=== PATIENT | female | born 1990 | race Caucasian/White ===

== ENCOUNTER 2022-08-08 22:43 | Outpatient (REF) | payer OTHER, SELFPAY ==
[2022-08-13 09:09] LABS: Age Gdln ACOG Testing Note (.); HPV Aptima Negative (Negative); IGP, Aptima HPV, rfx 16/18,45 Note (.)
== END 2022-08-08 22:44 ==
LOC: LAB 22:43
PROVIDERS: PCP Obstetrics & Gynecology; Visit Provider Obstetrics & Gynecology
DX: Z12.4 Encounter for screening for malignant neoplasm of cervix (principal)
CPT/HCPCS: 87624; G0145

== ENCOUNTER 2022-11-05 11:14 | Outpatient (OUT) | payer OTHER, SELFPAY ==
[2022-11-05 12:16] LABS: Basophils Percent Auto 0.4 % (0.2-2.0); Eosinophils Absolute Auto 0.1 10^3/uL (0.0-0.7); Eosinophils Percent Auto 1.5 % (0.9-7.0); Hematocrit 41.8 % (36.0-48.0); Hemoglobin 13.8 g/dL (12.0-16.0); Immature Granulocytes Abs Auto 0.01 10^3/uL (0.00-0.03); Immature Granulocytes Pct Auto 0.1 % (0.0-0.5); Lymphocytes Absolute Auto 3.7 10^3/uL (1.2-3.8); Lymphocytes Percent Auto 47.1 % (20.5-60.0); Mean Corpuscular Hemoglobin 30.3 pg (26.7-34.0); Mean Corpuscular Volume 91.9 fL (81.0-99.0); Mean Platelet Volume 10.5 fL (9.5-13.5); Monocytes Absolute Auto 0.5 10^3/uL (0.3-0.8); Monocytes Percent Auto 6.9 % (1.7-12.0); Neutrophils Absolute Auto 3.5 10^3/uL (1.4-6.5); Platelet Count 299 10^3/uL (150-450); Red Blood Count 4.55 10^6/uL (4.20-5.40); Red Cell Distribution Width 13.2 % (11.0-15.0); White Blood Count 7.9 10^3/uL (4.0-11.0)
[2022-11-05 12:28] LABS: Alanine Aminotransferase 38 U/L (14-59); Albumin Level 4.3 g/dL (3.4-5.0); Aspartate Amino Transferase 21 U/L (15-37); Bilirubin Total 0.3 mg/dL (0.2-1.0); Calcium 8.9 mg/dL (8.5-10.1); Chloride 104 mmol/L (98-107); Estimated GFR (African America >60 (>=60); Estimated GFR (Non-African Ame >60 (>=60); Sodium 143 mmol/L (136-145); Total Protein 8.1 g/dL (6.4-8.2)
[2022-11-07 15:08] LABS: Lamotrigine (Lamictal), Serum 6.5 ug/mL (2.0-20.0)
== END 2022-11-05 11:15 | disposition home or self-care (01) ==
LOC: LAB 11:14
PROVIDERS: PCP Internal Medicine
DX: G40.309 Generalized idiopathic epilepsy and epileptic syndromes, not intractable, without status epilepticus (principal)
CPT/HCPCS: 36415; 80051; 80175; 82042; 82247; 82306; 82310; 82565; 84155; 84450; 84460; 84520; 85025

== ENCOUNTER 2022-11-13 12:52 | Outpatient (OUT) | payer OTHER, SELFPAY ==
[2022-11-13 14:46] LABS: Free T4 0.72 ng/dL (0.76-1.46)
[2022-11-13 14:52] LABS: HCG Quantitative <1 mIU/mL; Magnesium 2.3 mg/dL (1.8-2.4)
[2022-11-14 04:07] LABS: Progesterone 4.6 ng/mL (.)
[2022-11-16 14:10] LABS: Anti-Mullerian Hormone (AMH) 5.77 ng/mL (.)
== END 2022-11-13 12:53 | disposition home or self-care (01) ==
LOC: LAB 12:52
PROVIDERS: PCP Internal Medicine; Visit Provider Obstetrics & Gynecology
DX: E28.2 Polycystic ovarian syndrome (principal); N92.6 Irregular menstruation, unspecified
CPT/HCPCS: 36415; 83735; 84144; 84439; 84443; 84702

== ENCOUNTER 2022-11-15 15:08 | Outpatient (OUT) | payer OTHER, SELFPAY ==
[2022-11-15 16:38] LABS: HCG Quantitative <1 mIU/mL
== END 2022-11-15 15:09 | disposition home or self-care (01) ==
LOC: LAB 15:10
PROVIDERS: PCP Internal Medicine; Visit Provider Obstetrics & Gynecology
DX: N92.6 Irregular menstruation, unspecified (principal)
CPT/HCPCS: 36415; 84702

== ENCOUNTER 2022-12-07 07:54 | Outpatient (OUT) | payer OTHER, SELFPAY ==
[2022-12-07 12:46] LABS: HCG Quantitative <1 mIU/mL
== END 2022-12-07 07:55 | disposition home or self-care (01) ==
LOC: LAB 12-09 07:54
PROVIDERS: PCP Internal Medicine; Visit Provider Obstetrics & Gynecology
DX: N92.6 Irregular menstruation, unspecified (principal)
CPT/HCPCS: 36415; 84144; 84702

== ENCOUNTER 2023-01-08 15:12 | Outpatient (OUT) | payer OTHER, SELFPAY ==
[2023-01-09 04:07] LABS: Progesterone 9.9 ng/mL (.)
== END 2023-01-08 15:13 | disposition home or self-care (01) ==
LOC: LAB 15:13
PROVIDERS: PCP Internal Medicine; Visit Provider Obstetrics & Gynecology
DX: N92.6 Irregular menstruation, unspecified (principal); E28.2 Polycystic ovarian syndrome
CPT/HCPCS: 36415; 84144

== ENCOUNTER 2023-01-12 08:05 | Outpatient (OUT) | payer OTHER, SELFPAY ==
[2023-01-12 08:55] LABS: HCG Quantitative <1 mIU/mL
== END 2023-01-12 08:06 | disposition home or self-care (01) ==
PROVIDERS: PCP Internal Medicine; Visit Provider Obstetrics & Gynecology
DX: N92.6 Irregular menstruation, unspecified (principal)
CPT/HCPCS: 36415; 84702

== ENCOUNTER 2023-01-14 09:54 | Outpatient (RCR) | payer OTHER, SELFPAY ==
[2023-01-14 11:21] LABS: HCG Quantitative <1 mIU/mL
[2023-02-07 09:09] LABS: Progesterone 17.2 ng/mL (.)
== END 2023-02-06 16:58 | disposition home or self-care (01) ==
LOC: LAB 09:54
PROVIDERS: PCP Internal Medicine; Visit Provider Obstetrics & Gynecology
DX: N92.6 Irregular menstruation, unspecified (principal); E28.2 Polycystic ovarian syndrome
CPT/HCPCS: 36415; 84144; 84702

== ENCOUNTER 2023-02-06 13:56 | Outpatient (OUT) | payer OTHER, SELFPAY ==
[2023-02-10 19:07] LABS: Lamotrigine (Lamictal), Serum 4.8 ug/mL (2.0-20.0)
== END 2023-02-06 13:57 | disposition home or self-care (01) ==
LOC: LAB 13:57
PROVIDERS: PCP Internal Medicine
DX: G40.309 Generalized idiopathic epilepsy and epileptic syndromes, not intractable, without status epilepticus (principal); N92.6 Irregular menstruation, unspecified
CPT/HCPCS: 36415; 80175

== ENCOUNTER 2023-03-09 09:15 | Outpatient (OUT) | payer OTHER, SELFPAY ==
--- OUTSIDE RECORDS SUMMARY | 2023-03-09 09:21 | XMS_ITS | CCD ---
Author Name Unknown Address [id number] [place] [address] Organization [facility] Care Team Providers Care Plumber'S Helper Name Role Phone JAMIL SMITH Referring Unavailable ARIA FORDE Primary Care Unavailable JAMIL SMITH Referring Unavailable ARIA FORDE Primary Care Unavailable NONE PER PATIENT, . Primary Care Unavailable GERARDO WARD Attending Unavailable NONE PER PATIENT, . Primary Care Unavailable GERARDO WARD Attending Unavailable NONE PER PATIENT, . Primary Care Unavailable GERARDO WARD Attending Unavailable GERARDO WARD Attending Unavailable NONE PER PATIENT, . Primary Care Unavailable Unavailable Primary Care Provider Unavailabl e LOUISA ., DR GUERRERO Admitting Unavailable LOUISA ., DR GUERRERO Attending Unavailable LOUISA ., DR GUERRERO Consulting Unavailable LOUISA ., DR GUERRERO Admitting Unavailable LOUISA ., DR GUERRERO Attending Unavailable HAYLIE, DR RAMEY Primary Care Unavailable LOUISA ., DR GUERRERO Consulting Unavailable MISC, DR ARMENTA Admitting Unavailable MISC, DR ARMENTA Attending Unavailable HAYLIE, DR RAMEY Primary Care Unavailable MISC, DR ARMENTA Consulting Unavailable LOUISA ., DR GUERRERO Consulting Unavailable LOUISA ., DR GUERRERO Admitting Unavailable LOUISA ., DR GUERRERO Attending Unavailable HAYLIE, DR RAMEY Primary Care Unavailable LOUISA ., DR GUERRERO Consulting Unavailable ZIEBER, DR CYDNEY Conner Consulting Unavailable LOUISA ., DR GUERRERO Admitting Unavailable LOUISA ., DR GUERRERO Attending Unavailable HAYLIE, DR RAMEY Primary Care Unavailable LOUISA ., DR GUERRERO Consulting Unavailable Tim Rolon DO Primary Care Provider Raoul UNLOADING CHECKER-ACCOUNTING TEACHER, Crystal G Unavailable EVY VERMA Referring Unavailable BALL, TIM Primary Care Unavailable VERMA, EVY C Attending Unavailable VERMA, EVY C Attending Unavailable BALL, TIM Primary Care Unavailable VERMA, EVY C Referring Unavailable BALL, TIM Referring Unavailable BALL, TIM Primary Care Unavailable RAOUL, CRYSTAL G Attending Unavailable BJ ARRIAGAITA Attending Unavailable SELF, SELF Referring Unavailable RAOUL, CRYSTAL G Attending Unavailable SELF, SELF Referring Unavailable BALL, TIM Primary Care Unavailable RAOUL, CRYSTAL G Attending Unavailable SELF, SELF Referring Unavailable BALL, TIM Primary Care Unavailable RAOUL, CRYSTAL G Attending Unavailable RAOUL, CRYSTAL G Referring Unavailable BALL, TIM Primary Care Unavailable BALL, TIM Primary Care Unavailable VERMA, EVY C Referring Unavailable VERMA, EVY C Admitting Unavailable BALL, TIM Primary Care Unavailable VERMA, EVY C Attending Unavailable BALL, TIM Primary Care Unavailable BALL, TIM Primary Care Unavailable VERMA, EVY C Attending Unavailable RAOUL, CRYSTAL G Referring Unavailable BALL, TIM Primary Care Unavailable VERMA, EVY C Referring Unavailable BALL, TIM Primary Care Unavailable ESAU HERNANDEZ Attending Unavailable Allergies Allergy Classification Reported Allergen(s) Allergy Type Date of Onset Reaction(s) Facility (6 sources) Seasonal allergy Propensity to adverse reactions to drug 7 Runny Nose, Congestion [facility] Work Phone: Medications Current Medications Medication Drug Class(es) Dates Sig (Normalized) Sig (Original) 8 hr acetaminophen 650 mg extended release oral tablet (2 sources) Start: 01-15-2023 take 1 tablet by mouth every six hours as needed acetaminophen 650 MG Tab CR Take 1 tablet by mouth every 6 hours as needed for Mild Pain. 0 01/15/2023 Active Start: 01-15-2023 End: 01-15-2023 take 1 tablet by mouth every four hours as needed Acetaminophen (TYLENOL) tablet 650 mg cloBAZam 20 mg oral tablet (6 sources) Benzodiazepine Start: 10-17-2022 End: 04-19-2023 take 1 tablet by mouth once daily at dinner cloBAZam 20 MG tablet Indications: Jeavons syndrome Take 1 tablet by mouth Daily (with dinner). 30 tablet 5 10/17/2022 04/19/2023 Active Start: 04-30-2021 End: 04-30-2022 take 1 tablet by mouth once daily at dinner cloBAZam 20 MG tablet Indications: Nonintractable epilepsy without status epilepticus, unspecified epilepsy type Take 1 tablet by mouth Daily (with dinner). 30 tablet 5 04/30/2021 04/30/2022 Active escitalopram 20 mg oral tablet (1 source) Serotonin Reuptake Inhibitor Start: 04-30-2021 take 1 tablet by mouth once daily at dinner escitalopram 20 MG tablet Indications: Seizure disorder Take 1 tablet by mouth Daily (with dinner). 30 tablet 11 04/30/2021 Active folic acid 1 mg oral tablet (6 sources) Start: 04-19-2022 take 1 tablet by mouth once daily at dinner Folic acid 1 MG tablet Take 1 tablet by mouth Daily (with dinner). 30 tablet 11 04/19/2022 Active Start: 04-30-2021 take 1 tablet by josh th once daily at dinner folic acid 1 MG tablet Indications: Seizure disorder Take 1 tablet by mouth Daily (with dinner). 30 tablet 11 04/30/2021 Active lacosamide 100 mg oral tablet (1 source) Anti-epileptic Agent Start: 07-04-2021 End: 07-05-2022 lacosamide (Vimpat) 100 MG tablet Indications: Generalized nonconvulsive epilepsy W1: 1/2 tab twice daily W2 and on: 1 tab twice daily 60 tablet 5 07/04/2021 07/05/2022 Active 24 hr lamoTRIgine 300 mg extended release oral tablet (5 sources) Mood Stabilizer, Anti-epileptic Agent Start: 11-26-2022 take 1 tablet by mouth every twenty-four hours at bedtime LamoTRIgine 300 MG Tab SR 24 HR Indications: Jeavons syndrome Take 1 tablet by mouth at bedtime. 90 tablet 0 11/26/2022 Active Start: 10-21-2022 take 1 tablet by josh th once daily at bedtime LamoTRIgine 250 MG Tab SR 24 HR Indications: Jeavons syndrome TAKE 1 TABLET BY MOUTH EVERYDAY AT BEDTIME 90 tablet 0 10/21/2022 Active letrozole 2.5 mg oral tablet (3 sources) Aromatase Inhibitor Start: 11-19-2022 take 1 tablet by mouth at bedtime Femara 2.5 MG tablet Take 1 tablet by mouth at bedtime. 0 11/19/2022 Active loratadine 10 mg oral tablet (6 sources) loratadine 10 MG tablet Take 1 tablet by mouth as needed. 0 Active LORazepam 0.5 mg oral tablet (5 sources) Benzodiazepine Start: 03-22-2022 End: 03-22-2023 LORazepam 0.5 MG tablet Indications: Anxiety disorder, unspecified type 1 tab up to three times a week as needed for anxiety 10 tablet 1 03/22/2022 03/22/2023 Active medroxyPROGESTERone acetate 10 mg oral tablet (2 sources) Progestin medroxyPROGESTER one 10 MG tablet Take 1 tablet by mouth as needed. Takes for 14 days each time needed 0 Active melatonin 3 mg oral tablet (8 sources) Start: 03-22-2022 take 1 tablet by mouth once daily at bedtime Melatonin 3 MG tablet Indications: Difficulty falling asleep at night until stitcher standard machine hours TAKE 1 TABLET BY MOUTH EVERYDAY AT BEDTIME 90 tablet 2 03/22/2022 Active Melatonin 5 MG C hew Tab Chew 1 tablet at bedtime as needed. 0 Active metFORMIN hydrochloride 500 mg oral tablet (3 sources) Biguanide take 1 tablet by mouth at bedtime metFORMIN 500 MG tablet Take 1 tablet by mouth at bedtime. 0 Active midazolam 50 mg/ml nasal spray (7 sources) Benzodiazepine Start: 10-02-2020 Midazolam (Nayzilam) 5 MG/0.1ML Solution Indications: Seizure disorder 5 mg by Nasal route as needed. For seizure clusters longer than 5 minutes. May repeat in 10 minutes. Do not exceed 10 mg in 24 hours. 2 Each 0 10/02/2020 Active Start: 02-18-2019 midazolam HCl 50 MG/10ML Solution 10 mg by Nasal route. 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 Please use medication for five days prior to your scheduled surgery date. 22 g 0 01/10/2023 Active Prenat MV-Min w/Qz-Qfegsj-JER ( COMPLETE PO) (3 sources) take 1 tablet by mouth once at bedtime Prenat MV-Min w/Ww-Txpbaf-SUU ( COMPLETE PO) Take 1 tablet by mouth at bedtime. 0 Active sertraline 100 mg oral tablet (5 sources) Serotonin Reuptake Inhibitor Start: 04-19-2022 Sertraline 100 MG tablet Indications: Anxiety disorder, unspecified type 1 tablet at bedtime 90 tablet 3 04/19/2022 Active 24 hr divalproex sodium 250 mg extended release oral tablet (2 sources) Mood Stabilizer, Anti-epileptic Agent Start: 04-30-2021 take 1 tablet by mouth at bedtime divalproex 250 MG tablet ER Indications: Seizure disorder Take 1 tablet by mouth at bedtime. 30 tablet 5 04/30/2021 Active Start: 03-27-2021 End: 07-04-2021 take 1 tablet by mouth at bedtime divalproex 500 MG tablet ER Indications: Seizure disorder Take 1 tablet by mouth at bedtime. 30 tablet 1 03/27/2021 07/04/2021 Discontinued Completed/Discontinued Medications Medication Drug Class(es) Dates Sig (Normalized) Sig (Original) Acetaminophen / oxyCODONE (1 source) Opioid Agonist Start: 01-15-2023 End: 01-15-2023 take 1 tablet by mouth every four hours as needed oxyCODONE-acetami nophen (PERCOCET) 5-325 MG per tablet 1 tablet etonogestrel 68 mg drug implant (1 source) Progestin End: 07-04-2021 Etonogestrel 68 MG SC implant Inject 68 mg under the skin. 0 07/04/2021 Discontinued Ondansetron 4mg/2ml (ZOFRAN) injection 4 mg (1 source) Start: 01-15-2023 End: 01-15-2023 take 4 mg intravenously every four hours as needed Ondansetron 4mg/2ml (ZOFRAN) injection 4 mg povidone-iodine (3M SKIN and NASAL ANTISEPTIC) 5 % topical solution 1 Application (1 source) Start: 01-15-2023 End: 01-15-2023 povidone-iodine (3M SKIN and NASAL ANTISEPTIC) 5 % topical solution 1 Application progesterone 100 mg oral capsule (1 source) Progesterone End: 01-09-2023 progesterone 100 MG capsule Take 1 capsule by mouth as needed. 0 01/09/2023 Discontinued 1000 ml sodium chloride 9 mg/ml injection (1 source) Start: 01-15-2023 End: 11-08-2023 Sodium chloride 0.9% IV solution 200 ml vancomycin 5 mg/ml injection (1 source) Glycopeptide Antibacterial Start: 01-15-2023 End: 01-15-2023 Vancomycin HCl in NaCl (VANCOCIN) 1,000 mg in 200 ml NS premix IVPB Problems Active Problems Problem Classification Problem Date Documented Da te Episodic/Chronic Anxiety disorders (5 sources) Anxiety disorder; Translations: [Anxiety disorder, unspecified] Onset: 03-05-2022 03-05-2022 Chronic Contraceptive and procreative management (2 sources) Encounter for initial prescription of implantable subdermal contraceptive; Translations: [Encounter for surveillance of implantable subdermal contraceptive] Onset: 05-13-2018 Epilepsy; convulsions (20 sources) Generalized idiopathic epilepsy and epileptic syndromes, not intractable, without status epilepticus; Translations: [Generalized non-convulsive epilepsy] Onset: 06-14-2008 Chronic Other endocrine disorders (4 sources) Polycystic ovarian syndrome; Translations: [POLYCYSTIC OVARIAN SYNDROME] Onset: 05-23-2022 Chronic Other nutritional; endocrine; and metabolic disorders (6 sources) Obese class II; Translations: [Obesity, unspecified] Onset: 10-28-2019 10-28-2019 Chronic Residual codes; unclassified (4 sources) Presence of other specified functional implants; Translations: [Presence of other specified functional implants] Onset: 03-20-2018 Chronic Residual codes; unclassified (7 sources) Past history of procedure; Translations: [Presence of other specified functional implants] Onset: 10-24-2011 10-05-2019 Chronic Past or Other Problems Problem Classification Problem Date Documented Date Episodic/Chronic Fracture of lower limb (16 sources) Closed pilon fracture; Translations: [Displaced pilon fracture of right tibia, initial encounter for closed fracture] Onset: 07-17-2016 10-28-2019 Episodic Genitourinary symptoms and ill-defined conditions (4 sources) Microscopic hematuria; Translations: [Other microscopic hematuria] Onset: 02-21-2011 12-06-2022 Episodic Immunizations and screening for infectious disease (1 source) Encounter for screening for human papillomavirus (HPV); Translations: [ENC SCREENING HUMAN PAPILLOMAVIRUS] Onset: 08-28-2021 Episodic Other aftercare (6 sources) Wound ; Translations: [Encounter for other specified surgical aftercare] Onset: 04-17-2018 10-05-2019 Episodic Other screening for suspected conditions (not mental disorders or infectious disease) (4 sources) Encounter for screening for malignant neoplasm of cervix; Translations: [ENC SCREENING MALIG NEOPLASM CERV] Onset: 08-27-2021 Episodic Residual codes; unclassified (6 sources) Dietary finding; Translations: [Other specified health status] Onset: 08-27-2017 10-05-2019 Episodic Results Test Name Value Interpretation Reference Range Facility BETA HCG, URINE (POC DEVICE) on 01-15-2023 Beta HCG ( test) Ql (U) Negative Negative [facility] Interpretation and review of laboratory results Normal [facility] Test performed at address of the patient encounter. [facility] CARDIAC RHYTHM (SCANNED)on 03-17-2022 [facility] CBC AND ELECTRONIC DIFFon Basophils (Bld) [#/Vol] 0.05 10*3/uL Normal 0.00-0.15 [facility] Comment on above: Performed By: #### L [id number] #### [facility] (DEFAULT) [address] [address] Basophils/100 WBC (Bld) 0.5 % Normal O [facility] Comment on above: Performed By: #### L [id number] #### [facility] (DEFAULT) [address] [place] [address] DIFF STATUS Electronic Differential Normal [facility] Comment on above: Performed By: #### L [id number] #### [facility] (DEFAULT) [address] [place] [address] Eosinophils (Bld) [#/Vol] 0.12 10*3/uL Normal 0.00-0.4 2 [facility] Comment on above: Performed By: #### L [id number] #### [facility] (DEFAULT) [address] [address] Eosinophils/100 WBC (Bld) 1.2 % Normal [facility] Comment on above: Performed By: #### L [id number] #### [facility] (DEFAULT) [address] [address] Hematocrit (Bld) [Volume fraction] 42.5 % Normal 34.9-44.3 [facility] Comment on above: Performed By: #### L [id number] #### [facility] (DEFAULT) [address] [place] [address] Hemoglobin (Bld) [Mass/Vol] 14.3 g/dL Normal 11.4-15.2 [facility] Comment on above: Performed By: #### L [id number] #### [facility] (DEFAULT) [address] [place] [address] Immature Grans % 0.3 % Normal [facility] Comment on above: Performed By: #### L [id number] #### [facility] (DEFAULT) [address] [place] [address] Immature Grans Absolute < Normal <=0.08 O [facility] Comment on above: Performed By: #### L [id number] #### [facility] (DEFAULT) [address] [place] [address] Lymphocytes (Bld) [#/Vol] 3.42 10*3/uL Normal 1.16-3.5 1 [facility] Comment on above: Performed By: #### L [id number] #### [facility] (DEFAULT) [address] [place] [address] Lymphocytes/100 WBC (Bld) 32.9 % Normal [facility] Comment on above: Performed By: #### L [id number] #### [facility] (DEFAULT) [address] [place] [address] MCV (RBC) [Entitic vol] 92.4 fL Normal 79.6-97.7 [facility] Comment on above: Performed By: #### L [id number] #### [facility] (DEFAULT) [address] [place] [address] Mean Cell Hgb 31.1 pg Normal 25.9-33.9 [facility] Comment on above: Performed By: #### L [id number] #### [facility] (DEFAULT) [address] [place] [address] Mean Cell Hgb Conc 33.6 g/dL Normal 31.4-35.9 [facility] Comment on above: Performed By: #### L [id number] #### [facility] (DEFAULT) [address] [place] [address] Monocytes (Bld) [#/Vol] 0.62 10*3/uL Normal 0.22-0.87 [facility] Comment on above: Performed By: #### L [id number] #### [facility] (DEFAULT) [address] [address] Monocytes/100 WBC (Bld) 6.0 % Normal [facility] Comment on above: Performed By: #### L [id number] #### [facility] (DEFAULT) [address] [address] Nucleated RBC 0.0 /100 WBC Normal <=0.2 [facility] Comment on above: Performed By: #### L [id number] #### [facility] (DEFAULT) [address] [address] Platelet mean volume (Bld) [Entitic vol] 10.8 fL Normal 8.5-12.2 [facility] Comment on above: Performed By: #### L [id number] #### [facility] (DEFAULT) [address] [address] Platelets (Bld) [#/Vol] 326 10*3/uL Normal 150-393 [facility] Comment on above: Performed By: #### L [id number] #### [facility] (DEFAULT) [address] [address] RBC (Bld) [#/Vol] 4.60 10*6/uL Normal 3.91-5.04 [facility] Comment on above: Performed By: #### L [id number] #### [facility] (DEFAULT) [address] [place] [address] RBC Distribution 13.1 % Normal 10.8-14.9 [facility] Comment on above: Performed By: #### L [id number] #### [facility] (DEFAULT) [address] [place] [address] Segs + Bands Auto 59.1 % Normal [facility] Comment on above: Performed By: #### L [id number] #### [facility] (DEFAULT) [address] [place] [address] Segs + Bands,Absolute Auto 6.14 K/uL Normal 1.64-7.28 [facility] Comment on above: Performed By: #### L [id number] #### [facility] (DEFAULT) [address] [place] [address] WBC (Bld) [#/Vol] 10.38 10*3/uL Normal 3.99-11.19 [facility] Comment on above: Performed By: #### L [id number] #### [facility] (DEFAULT) [address] [place] [address] Basophils (Bld) [#/Vol] 0.05 10*3/uL 0.00 - 0.15 K/uL [facility] Basophils/100 WBC (Bld) 0.5 % [facility] Differential cell count method Nom (Bld) Electronic Differential [facility] Eosinophils (Bld) [#/Vol] 0.12 10*3/uL 0. 00 - 0.42 K/uL [facility] Eosinophils/100 WBC (Bld) 1.2 % [facility] Erythrocyte distribution width (RBC) [Ratio] 13.1 % 10.8 - 14.9 % [facility] Hematocrit (Bld) [Volume fraction] 42.5 % 34.9 - 44.3 % [facility] Hemoglobin (Bld) [Mass/Vol] 14.3 g/dL 11.4 - 15.2 g/dL [facility] Immature granulocytes (Bld) [#/Vol] K/uL NINF - 0.08 K/uL [facility] Immature granulocytes/100 WBC (Bld) 0.3 % [facility] Lymphocytes (Bld) [#/Vol] 3.42 10*3/uL 1. 16 - 3.51 K/uL [facility] Lymphocytes/100 WBC (Bld) 32.9 % [facility] MCH (RBC) [Entitic mass] 31.1 pg 25. 9 - 33.9 pg [facility] MCHC (RBC) [Mass/Vol] 33.6 g/dL 31.4 - 35.9 g/dL [facility] MCV (RBC) [Entitic vol] 92.4 fL 79.6 - 97.7 fL [facility] Monocytes (Bld) [#/Vol] 0.62 10*3/uL 0.22 - 0.87 K/uL [facility] Monocytes/100 WBC (Bld) 6.0 % [facility] Neutrophils (Bld) [#/Vol] 6.14 10*3/uL 1. 64 - 7.28 K/uL [facility] Nucleated RBC/100 WBC (Bld) [Ratio] 0.0 % NINF [facility] Platelet mean volume (Bld) [Entitic vol] 10.8 fL 8.5 - 12.2 fL [facility] Platelets (Bld) [#/Vol] 326 10*3/uL 150 - 393 K/uL [facility] RBC (Bld) [#/Vol] 4.60 10*6/uL [facility] Segmented neutrophils/100 WBC (Bld) 59.1 % [facility] WBC (Bld) [#/Vol] 10.38 10*3/uL 3.99 - 11 .19 K/uL [facility] CMPN WITHOUT GLUCOSEon 01-09 Albumin [Mass/Vol] 4.9 g/dL Normal 3.5-5.0 [facility] Comment on above: Performed By: #### C MPNG #### [facility] (DEFAULT) [address] [place] [address] ALP [Catalytic activity/Vol] 35 U/L Normal 32-126 [facility] Comment on above: Performed By: #### C MPNG #### [facility] (DEFAULT) [address] [place] [address] ALT [Catalytic activity/Vol] 19 U/L Normal 9-48 [facility] Comment on above: Performed By: #### C MPNG #### [facility] (DEFAULT) [address] [place] [address] Anion gap [Moles/Vol] 13 mmol/L Normal 7-17 [facility] Comment on above: Performed By: #### C MPNG #### [facility] (DEFAULT) [address] [place] [address] AST [Catalytic activity/Vol] 18 U/L Normal 10-39 [facility] Comment on above: Performed By: #### C MPNG #### [facility] (DEFAULT) [address] [place] [address] Bilirubin [Mass/Vol] 0.3 mg/dL Normal <1.5 [facility] Comment on above: Performed By: #### C MPNG #### [facility] (DEFAULT) [address] [place] [address] Calcium [Mass/Vol] 9.2 mg/dL Normal 8.6-10.5 [facility] Comment on above: Performed By: #### C MPNG #### [facility] (DEFAULT) [address] [place] [address] Chloride [Moles/Vol] 102 mmol/L Normal 98-108 [facility] Comment on above: Performed By: #### C MPNG #### [facility] (DEFAULT) [address] [place] [address] CO2 [Moles/Vol] 26 mmol/L Normal 21-31 [facility] Comment on above: Performed By: #### C MPNG #### [facility] (DEFAULT) [address] [place] [address] Creatinine [Mass/Vol] 0.64 mg/dL Normal 0.50-1.20 [facility] Comment on above: Performed By: #### C MPNG #### [facility] (DEFAULT) [address] [place] [address] eGFR, CKD-EPI, Female > Normal >=60 [facility] Comment on above: Result Comment: Repo rted eGFR is based on the CKD-EPI 2020 equation using creatinine, age, and sex. Performed By: #### C MPNG #### [facility] (DEFAULT) [address] [place] [address] Potassium [Moles/Vol] 4.0 mmol/L Normal 3.5-5.0 [facility] Comment on above: Performed By: #### C MPNG #### [facility] (DEFAULT) [address] [place] [address] Protein [Mass/Vol] 7.9 g/dL Normal 6.4-8.3 [facility] Comment on above: Performed By: #### C MPNG #### [facility] (DEFAULT) [address] [place] [address] Sodium [Moles/Vol] 137 mmol/L Normal 135-145 [facility] Comment on above: Performed By: #### C MPNG #### [facility] (DEFAULT) [address] [place] [address] Urea nitrogen [Mass/Vol] 12 mg/dL Normal 7-25 [facility] Comment on above: Performed By: #### C MPNG #### [facility] (DEFAULT) [address] [place] [address] Urea nitrogen/Creatinine [Mass ratio] 19 mg/mg Normal [facility] Comment on above: Performed By: #### C MPNG #### [facility] (DEFAULT) [address] [place] [address] HCG ( test) Ql (U)O rdered By: Jamil Santos on 01-09-2023 Beta HCG ( test) Ql Negative Negative [facility] Interpretation and review of laboratory results Normal [facility] HCG QUALITATIVE, URINEon Beta HCG ( test) Ql (U) Negative Normal Negative [facility] Comment on above: Performed By: #### U HCG #### [facility] (DEFAULT) [address] [place] [address] LAMOTRIGINE LEVELon 01-10-20 23 Lamotrigine, S 4.3 mcg/mL Normal 3.0-15.0 [facility] Comment on above: Result Comment: ADDITIONAL INFORMATION This test was developed and its performance characteristics determined by [facility] in a manner consistent with CLIA requirements. This test has not been cleared or approved by the U.S. Food and Drug Administration. Test Performed by: [facility] [address] [place] [address] Carpenter Assistant: Juno Vega M.D. Ph.D.; CLIA# [id number] Performed By: #### Y LAMO #### [facility] (DEFAULT) [address] [address] [place] [id number] PT,INR,PTTon 01-09-2023 aPTT Coag (Bld) [Time] 31.1 s Normal 24.0-34.3 [facility] Comment on above: Performed By: #### P TPTT #### [facility] (DEFAULT) [address] [place] [id number] INR Coag (PPP) [Relative time] 1.0 {INR} Normal 0.9-1.1 [facility] Comment on above: Performed By: #### P TPTT #### [facility] (DEFAULT) [address] [place] [id number] PT Coag (PPP) [Time] 13.0 s Normal 11.9-14.2 [facility] Comment on above: Performed By: #### P TPTT #### [facility] (DEFAULT) [address] [place] [id number] aPTT Coag (PPP) [Time] 31.1 s [facility] INR Coag (Bld) [Relative time] 1.0 {INR} 0.9 - 1.1 [facility] Interpretation and review of laboratory results Normal [facility] PT Coag (PPP) [Time] 13.0 s [facility] SCREEN: MRSA/MSSAOrdered By: Alexandra Slater on 01-09-2023 Interpretation and review of laboratory results Abnormal [facility] Methicillin Resistant S. Aureus By Pcr Negative Negative [facility] Staphylococcus Aureus By Pcr Positive Abnormal Negative [facility] This test was performed using a real time PCR assay. Results should be interpreted in conjunction with other clinical and laboratory findings. A positive result does not necessarily indicate the presence of viable organism. This test should not be used as a test of cure. For E-swab specimens, this test was developed and its performance characteristics determined by the Clinical Microbiology Laboratory at [facility]. It has not been cleared or approved by the FDA.The laboratory is regulated under CLIA as qualified to perform high-complexity testing. This test is used for clinical purposes. It should not be regarded as investigational or for research. [facility] SCREEN: MRSA/MSSAon 01-10-20 Methicillin Resistant S. Aureus By Pcr Negative Normal Negative [facility] Comment on above: Order Comment: This test was performed using a real time PCR assay. Results should be interpreted in conjunction with other clinical and laboratory findings. A positive result does not necessarily indicate the presence of viable organism. This test should not be used as a test of cure. For E-swab specimens, this test was developed and its performance characteristics determined by the Clinical Microbiology Laboratory at [facility]. It has not been cleared or approved by the FDA.The laboratory is regulated under CLIA as qualified to perform high-complexity testing. This test is used for clinical purposes. It should not be regarded as investigational or for research. Performed By: #### S CRSB #### [facility] (DEFAULT) [address] [place] [id number] Staphylococcus Aureus By Pcr Positive Abnormal Negative [facility] Comment on above: Order Comment: This test was performed using a real time PCR assay. Results should be interpreted in conjunction with other clinical and laboratory findings. A positive result does not necessarily indicate the presence of viable organism. This test should not be used as a test of cure. For E-swab specimens, this test was developed and its performance characteristics determined by the Clinical Microbiology Laboratory at [facility]. It has not been cleared or approved by the FDA.The laboratory is regulated under CLIA as qualified to perform high-complexity testing. This test is used for clinical purposes. It should not be regarded as investigational or for research. Performed By: #### S CRSB #### [facility] (DEFAULT) [address] [place] [id number] VITAMIN D (25-HYDROXY,TOTAL) on 01-09-2023 25-OH Vitamin D Total 35.2 ng/mL Normal 30.0-100.0 [facility] Comment on above: Order Comment: Vitam in D values have been shown to be falsely decreased in lipemic samples and should be interpreted with caution. Result Comment: <10 Deficiency 10-29 Insufficiency 30-100 Optimal Level >100 Possible Toxicity Performed By: #### D 25OH #### [facility] (DEFAULT) [address] [place] [address] XR Cervical and thoracic and lumbar spine Viewson 01-09-2023 IMPRESSION: Intact vagus nerve stimulator as described. OLOGY EXAM: XR STIMULATOR/INTRATHE TELLY PUMP CERVICAL/THORACIC/L UMBAR (Cervical, thoracic and Lumbar spine X-ray 2 views), 01/09/2023 10:28 AM COMPARISON: No priors available for comparison. 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 Stimulator lead wires are coursing along the anterior chest wall on the left extending to the anterior neck soft tissues on the left at the level of C6-C7. The pulse generator and lead wires are intact. RADIOLOGY Alice Crespo MD - 01/09/2023 EXAM: XR STIMULATOR/INTRATHE TELLY PUMP CERVICAL/THORACIC/L UMBAR (Cervical, thoracic and Lumbar spine X-ray 2 views), 01/09/2023 10:28 AM COMPARISON: No priors available for comparison. 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 Stimulator lead wires are coursing along the anterior chest wall on the left extending to the anterior neck soft tissues on the left at the level of C6-C7. The pulse generator and lead wires are intact. IMPRESSION IMPRESSION: Intact vagus nerve stimulator as described. [facility] Radiology Study observation (narrative) [facility] XR Cervical and thoracic and lumbar spine ViewsOrdered By: Alice Crespo on 01-09-2023 [facility] Work Phone: XR STIMULATOR/INTRATHECAL PU MP CERVICAL/THORACIC/LUMBARon 01-09-2023 XR STIMULATOR/INTRATHECAL PUMP CERVICAL/THORACIC/LUMBAR EXAM: XR STIMULATOR/INTRATHE TELLY PUMP CERVICAL/THORACIC/L UMBAR (Cervical, thoracic and Lumbar spine X-ray 2 views), 01/09/2023 10:28 AM COMPARISON: No priors available for comparison. 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 Stimulator lead wires are coursing along the anterior chest wall on the left extending to the anterior neck soft tissues on the left at the level of C6-C7. The pulse generator and lead wires are intact. IMPRESSION: Intact vagus nerve stimulator as described. Normal [facility] PROGESTERONEon 05-24-2022 Progesterone 5.5 ng/mL Normal [facility] Comment on above: Result Comment: Foll icular phase 0.1 - 0.9 Luteal phase 1.8 - 23.9 Ovulation phase 0.1 - 12.0 First trimester 11.0 - 44.3 Second trimester 25.4 - 83.3 Third trimester 58.7 - 214.0 Postmenopausal 0.0 - 0.1 Performed By: #### P DANIEL #### [facility] [address] [place] [address] Dr. Nicol Oswald LAMOTRIGINEon 05-02-2022 Lamotrigine, Serum 4.7 ug/mL Normal 2.0-20.0 [facility] Comment on above: Result Comment: Dete ction Limit = 1.0 Performed By: #### P DANIEL #### [facility] [address] [place] [address] Dr. Nicol Oswald CBC AUTO DIFFon 04-30-2022 BASO # 0.0 103/ul Normal 0.0-0.1 [facility] Comment on above: Performed By: #### C BC #### [facility] [address] [place] [address] Dr. Nicol Oswald Basophils/100 WBC (Bld) 0.4 % Normal 0.2-2.0 [facility] Comment on above: Performed By: #### C BC #### [facility] [address] [place] [address] Dr. Nicol Oswald EO # 0.2 103/ul Normal 0.0-0.7 [facility] Comment on above: Performed By: #### C BC #### [facility] [address] [place] [address] Dr. Nicol Oswald Eosinophils/100 WBC (Bld) 1.9 % Normal 0.9-7.0 [facility] Comment on above: Performed By: #### C BC #### [facility] [address] [place] [address] Dr. Nicol Oswald Erythrocyte distribution width (RBC) [Ratio] 12.8 % Normal 11.0-15.0 [facility] Comment on above: Performed By: #### C BC #### [facility] [address] [place] [address] Dr. Nicol Oswald Hematocrit (Bld) [Volume fraction] 40.4 % Normal 36.0-48.0 [facility] Comment on above: Performed By: #### C BC #### [facility] [address] [place] [address] Dr. Nicol Oswald Hemoglobin (Bld) [Mass/Vol] 13.6 g/dL Normal 12.0-16.0 [facility] Comment on above: Performed By: #### C BC #### [facility] [address] [place] [address] Dr. Nicol Oswald IG # 0.03 10e3/ul Normal 0.00-0.03 [facility] Comment on above: Performed By: #### C BC #### [facility] [address] [place] [address] Dr. Nicol Oswald IG % 0.4 % Normal 0.0-0.5 [facility] Comment on above: Performed By: #### C BC #### [facility] [address] [place] [address] Dr. Nicol Oswald LYMPH # 3.1 103/ul Normal 1.2-3.8 [facility] Comment on above: Performed By: #### C BC #### [facility] [address] [place] [address] Dr. Nicol Oswald Lymphocytes/100 WBC (Bld) 36.4 % Normal 20.5-60.0 [facility] Comment on above: Performed By: #### C BC #### [facility] [address] [place] [address] Dr. Nicol Oswald MANUAL DIFF REQ NO Normal [facility] Comment on above: Performed By: #### C BC #### [facility] [address] [place] [address] Dr. Nicol Oswald MCH (RBC) [Entitic mass] 31.0 pg Normal 26.7-34.0 [facility] Comment on above: Performed By: #### C BC #### [facility] [address] [place] [address] Dr. Nicol Oswald MCHC (RBC) [Mass/Vol] 33.7 g/dL Normal 29.9-35.2 [facility] Comment on above: Performed By: #### C BC #### [facility] [address] [place] [address] Dr. Nicol Oswald MCV (RBC) [Entitic vol] 92.0 fL Normal 81.0-99.0 [facility] Comment on above: Performed By: #### C BC #### [facility] [address] [place] [address] Dr. Nicol Oswald MONO # 0.7 103/ul Normal 0.3-0.8 [facility] Comment on above: Performed By: #### C BC #### [facility] [address] [place] [address] Dr. Nicol Oswald Monocytes/100 WBC (Bld) 7.7 % Normal 1.7-12.0 [facility] Comment on above: Performed By: #### C BC #### [facility] [address] [place] [address] Dr. Nicol Oswald NEUT # 4.5 103/ul Normal 1.4-6.5 [facility] Comment on above: Performed By: #### C BC #### [facility] [address] [place] [address] Dr. Nicol Oswald Neutrophils/100 WBC (Bld) 53.2 % Normal 43.0-75.0 [facility] Comment on above: Performed By: #### C BC #### [facility] [address] [place] [address] Dr. Nicol Oswald Platelet mean volume (Bld) [Entitic vol] 11.0 fL Normal 9.5-13.5 [facility] Comment on above: Performed By: #### C BC #### [facility] [address] [place] [address] Dr. Nicol Oswald PLT 282 103/ul Normal 150-450 [facility] Comment on above: Performed By: #### C BC #### [facility] [address] [place] [address] Dr. Nicol Oswald RBC 4.39 106/ul Normal 4.20-5.40 [facility] Comment on above: Performed By: #### C BC #### [facility] [address] [place] [address] Dr. Nicol Oswald WBC 8.4 103/ul Normal 4.0-11.0 [facility] Comment on above: Performed By: #### C BC #### [facility] [address] [place] [address] Dr. Nicol Oswald LIVER PROFILEon 04-30-2022 Albumin [Mass/Vol] 4.1 g/dL Normal 3.4-5.0 [facility] Comment on above: Performed By: #### P DANIEL #### [facility] [address] [place] [address] Dr. Nicol Oswald Albumin/Globulin [Mass ratio] 1.2 {ratio} Normal [facility] Comment on above: Performed By: #### P DANIEL #### [facility] [address] [place] [address] Dr. Nicol Oswald ALP [Catalytic activity/Vol] 52 U/L Normal 46-116 [facility] Comment on above: Performed By: #### P DANIEL #### [facility] [address] [place] [address] Dr. Nicol Oswald ALT [Catalytic activity/Vol] 23 U/L Normal 14-59 [facility] Comment on above: Performed By: #### P JASONES #### [facility] [address] [place] [address] Dr. Nicol Oswald AST [Catalytic activity/Vol] 17 U/L Normal 15-37 [facility] Comment on above: Performed By: #### P JASONES #### [facility] [address] [place] [address] Dr. Nicol Oswald BILI, CONJUGATED 0.1 mg/dL Normal 0.0-0.2 [facility] Comment on above: Performed By: #### P ROGES #### [facility] [address] [address] [address] Nicol Oswald Bilirubin [Mass/Vol] 0.2 mg/dL Normal 0.2-1.0 [facility] Comment on above: Performed By: #### P ROGES #### [facility] [address] [place] [address] Dr. Nicol Oswald Globulin (S) [Mass/Vol] 3.4 g/dL Normal [facility] Comment on above: Performed By: #### P ROGES #### [facility] [address] [address] [address] Nicol [place] Protein [Mass/Vol] 7.5 g/dL Normal 6.4-8.2 [facility] Comment on above: Performed By: #### P ROGES #### [facility] [address] [place] [address] Dr. Nicol Oswald PROF CHEM 8 (BAS METB)on Anion gap [Moles/Vol] 8.5 mmol/L Normal [facility] Comment on above: Performed By: #### P ROGES #### [facility] [address] [place] [address] Dr. Nicol Oswald Calcium [Mass/Vol] 9.4 mg/dL Normal 8.5-10.1 [facility] Comment on above: Performed By: #### P ROGES #### [facility] [address] [place] [address] Dr. Nicol Oswald Chloride [Moles/Vol] 102 mmol/L Normal 98-107 [facility] Comment on above: Performed By: #### P ROGES #### [facility] [address] [place] [address] Dr. Nicol Oswald CO2 [Moles/Vol] 30.4 mmol/L Normal 21.0-32.0 [facility] Comment on above: Performed By: #### P ROGES #### [facility] [address] [place] [address] Dr. Nicol Oswald Creatinine [Mass/Vol] 0.57 mg/dL Normal 0.55-1.02 [facility] Comment on above: Performed By: #### P ROGES #### [facility] [address] [address] [address] Nicol Oswald EGFR-AF CYMRO >60 Normal >=60 [facility] Comment on above: Performed By: #### P ROGES #### [facility] [address] [address] [address] Nicol Oswald EGFR-NON AF CYMRO >60 Normal >=60 [facility] Comment on above: Performed By: #### P ROGES #### [facility] [address] [address] [address] Nicol Oswald Glucose [Mass/Vol] 89 mg/dL Normal 74-106 [facility] Comment on above: Performed By: #### P ROGES #### [facility] [address] [address] [address] Nicol Oswald Potassium [Moles/Vol] 3.9 mmol/L Normal 3.5-5.1 [facility] Comment on above: Performed By: #### P ROGES #### [facility] [address] [address] [address] Nicol Oswald Sodium [Moles/Vol] 137 mmol/L Normal 136-145 [facility] Comment on above: Performed By: #### P ROGES #### [facility] [address] [address] [address] Nicol Oswald Urea nitrogen [Mass/Vol] 10.0 mg/dL Normal 7.0-18.0 [facility] Comment on above: Performed By: #### P ROGES #### [facility] [address] [address] [address] Nicol Oswald Urea nitrogen/Creatinine [Mass ratio] 17.5 mg/mg Normal [facility] Comment on above: Performed By: #### P ROGES #### [facility] [address] [address] [address] Nicol Oswald ESTROGENon 04-19-2022 Estrogens, Total 124 pg/mL Normal [facility] Comment on above: Result Comment: Prep ubertal < 40 Female Cycle: 1-10 Days 16 - 328 11-20 Days 34 - 501 21-30 Days 48 - 350 Post-Menopausal 40 - 244 Performed By: #### Elli ESPINAL #### [facility] [address] [address] [address] Nicol Oswald DHEA SERUMon 04-18-2022 Dehydroepiandrosterone (DHEA) 371 ng/dL Normal 31-701 [facility] Comment on above: Result Comment: Age 1 - 5 years 0 - 67 6 - 7 years 0 - 110 8 - 10 years 0 - 185 11 - 12 years 0 - 201 13 - 14 years 0 - 318 15 - 16 years 39 - 481 17 - 19 years 40 - 491 >19 years 31 - 701 Performed By: #### Tenzin SANCHEZ #### [facility] [address] [place] [address] Dr. Nicol Oswald DHEA-SULFATEon 04-16-2022 DHEA-Sulfate 371.0 ug/dL Normal 84.8-378.0 [facility] Comment on above: Performed By: #### Tenzin SANCHEZ #### [facility] [address] [place] [address] Dr. Nicol Oswald FSHon 04-16-2022 FSH 5.6 mIU/mL Normal [facility] Comment on above: Result Comment: Adul t Female: Follicular phase 3.5 - 12.5 Ovulation phase 4.7 - 21.5 Luteal phase 1.7 - 7.7 Postmenopausal 25.8 - 134.8 Performed By: #### Tenzin SANCHEZ #### [facility] [address] [place] [address] Dr. Nicol Oswald LUTEINIZING HORMONE (LH)on 0 04-16-2022 LH 12.9 mIU/mL Normal [facility] Comment on above: Result Comment: Adul t Female: Follicular phase 2.4 - 12.6 Ovulation phase 14.0 - 95.6 Luteal phase 1.0 - 11.4 Postmenopausal 7.7 - 58.5 Performed By: #### P DANIEL #### [facility] [address] [place] [address] Dr. Nicol Oswald PROGESTERONEon 04-16-2022 Progesterone 0.2 ng/mL Normal [facility] Comment on above: Result Comment: Foll icular phase 0.1 - 0.9 Luteal phase 1.8 - 23.9 Ovulation phase 0.1 - 12.0 First trimester 11.0 - 44.3 Second trimester 25.4 - 83.3 Third trimester 58.7 - 214.0 Postmenopausal 0.0 - 0.1 Performed By: #### P ROGES #### [facility] [address] [address] [address] Nicol Oswald PROLACTINon 04-16-2022 Prolactin 7.1 ng/mL Normal 4.8-23.3 [facility] Comment on above: Performed By: #### P ROLAC #### [facility] [address] [address] [address] Nicol Oswald US PELVIS AND TRANSVAGon US PELVIS AND TRANSVAG EXAMINATION: US PELVIS AND TRANSVAG HISTORY: Polycystic ovary syndrome ; abnormal periods COMPARISON: No relevant comparison available. TECHNIQUE: Transabdominal and transvaginal sonographic examination. FINDINGS: UTERUS: Normal size and appearance. Uterus size: 6.4 x 4.3 x 3.6 cm ENDOMETRIUM: Normal homogeneous appearance. Endometrial thickness: 5 mm RIGHT OVARY: Contains numerous sub-5 mm follicles. Duplex Doppler demonstrates normal waveform and flow; resistive index 0.6. Ovary size: 5.6 x 1.6 x 2.8 cm LEFT OVARY: Contains multiple sub-5 mm follicles in a 1.6 cm dominant follicle. Duplex Doppler demonstrates normal waveform and flow; resistive index 0.5. Ovary size: 4.5 x 2.3 x 2.4 cm CUL-DE-SAC: Unremarkable. No significant free fluid. BLADDER: Unremarkable. OTHER: None. IMPRESSION: 1. Numerous sub-5 mm follicles distributed throughout the right and left ovaries which are nonspecific, but can be seen with polycystic ovarian syndrome. Electronically authenticated by: CYDNEY VALDEZ Date: 2022-04-16 08:48 Normal [facility] CBC AUTO DIFFon 04-15-2022 BASO # 0.0 103/ul Normal 0.0-0.1 [facility] Comment on above: Performed By: #### C BC #### [facility] [address] [address] [address] Nicol Oswald Basophils/100 WBC (Bld) 0.5 % Normal 0.2-2.0 [facility] Comment on above: Performed By: #### C BC #### [facility] [address] [place] [address] Dr. Nicol Oswald EO # 0.2 103/ul Normal 0.0-0.7 [facility] Comment on above: Performed By: #### C BC #### [facility] [address] [place] [address] Dr. Nicol Oswald Eosinophils/100 WBC (Bld) 2.1 % Normal 0.9-7.0 [facility] Comment on above: Performed By: #### C BC #### [facility] [address] [place] [address] Dr. Nicol Oswald Erythrocyte distribution width (RBC) [Ratio] 12.5 % Normal 11.0-15.0 [facility] Comment on above: Performed By: #### C BC #### [facility] [address] [place] [address] Dr. Nicol Oswald Hematocrit (Bld) [Volume fraction] 44.7 % Normal 36.0-48.0 [facility] Comment on above: Performed By: #### C BC #### [facility] [address] [place] [address] Dr. Nicol Oswald Hemoglobin (Bld) [Mass/Vol] 14.3 g/dL Normal 12.0-16.0 [facility] Comment on above: Performed By: #### C BC #### [facility] [address] [place] [address] Dr. Nicol Oswald IG # 0.01 10e3/ul Normal 0.00-0.03 [facility] Comment on above: Performed By: #### C BC #### [facility] [address] [place] [address] Dr. Nicol Oswald IG % 0.1 % Normal 0.0-0.5 [facility] Comment on above: Performed By: #### C BC #### [facility] [address] [place] [address] Dr. Nicol Oswald LYMPH # 2.0 103/ul Normal 1.2-3.8 [facility] Comment on above: Performed By: #### C BC #### [facility] [address] [place] [address] Dr. Nicol Oswald Lymphocytes/100 WBC (Bld) 26.0 % Normal 20.5-60.0 [facility] Comment on above: Performed By: #### C BC #### [facility] [address] [place] [address] Dr. Nicol Oswald MANUAL DIFF REQ NO Normal [facility] Comment on above: Performed By: #### C BC #### [facility] [address] [place] [address] Dr. Nicol Oswald MCH (RBC) [Entitic mass] 30.8 pg Normal 26.7-34.0 [facility] Comment on above: Performed By: #### C BC #### [facility] [address] [place] [address] Dr. Nicol Oswald MCHC (RBC) [Mass/Vol] 32.0 g/dL Normal 29.9-35.2 [facility] Comment on above: Performed By: #### C BC #### [facility] [address] [place] [address] Dr. Nicol Oswald MCV (RBC) [Entitic vol] 96.3 fL Normal 81.0-99.0 [facility] Comment on above: Performed By: #### C BC #### [facility] [address] [place] [address] Dr. Nicol Oswald MONO # 0.6 103/ul Normal 0.3-0.8 [facility] Comment on above: Performed By: #### C BC #### [facility] [address] [place] [address] Dr. Nicol Oswald Monocytes/100 WBC (Bld) 7.3 % Normal 1.7-12.0 [facility] Comment on above: Performed By: #### C BC #### [facility] [address] [place] [address] Dr. Nicol Oswald NEUT # 4.9 103/ul Normal 1.4-6.5 [facility] Comment on above: Performed By: #### C BC #### [facility] [address] [place] [address] Dr. Nicol Oswald Neutrophils/100 WBC (Bld) 64.0 % Normal 43.0-75.0 [facility] Comment on above: Performed By: #### C BC #### [facility] [address] [place] [address] Dr. Nicol Oswald Platelet mean volume (Bld) [Entitic vol] 11.3 fL Normal 9.5-13.5 [facility] Comment on above: Performed By: #### C BC #### [facility] [address] [place] [address] Dr. Nicol Oswald PLT 302 103/ul Normal 150-450 [facility] Comment on above: Performed By: #### C BC #### [facility] [address] [place] [address] Dr. Nicol Oswald RBC 4.64 106/ul Normal 4.20-5.40 [facility] Comment on above: Performed By: #### C BC #### [facility] [address] [place] [address] Dr. Nicol Oswald WBC 7.7 103/ul Normal 4.0-11.0 [facility] Comment on above: Performed By: #### C BC #### [facility] [address] [place] [address] Dr. Nicol Oswald FREE T4on 04-15-2022 Free T4 [Mass/Vol] 0.80 ng/dL Normal 0.76-1.46 [facility] Comment on above: Performed By: #### F T4 #### [facility] [address] [place] [address] Dr. Nicol Oswald GLYCOHEMOGLOBIN A1Con 2022 ADA RECOMMENDATION SEE BELOW Normal [facility] Comment on above: Result Comment: ADA RECOMMENDED LIMIT 4.0 - 6.0 ADA THERAPEUTIC TARGET < 7.0 ACTION SUGGESTED > 7.0 Performed By: #### A 1C #### [facility] [address] [address] [address] Nicol Oswald Glucose [Mass/Vol] 114 mg/dL Normal [facility] Comment on above: Performed By: #### A 1C #### [facility] [address] [address] [address] Nicol Oswald HbA1c (Bld) [Mass fraction] 5.6 % Normal 4.5-6.2 [facility] Comment on above: Performed By: #### A 1C #### [facility] [address] [address] [address] Nicol Oswald PREG QUANT HCGon 04-15-2022 HCG QUANT <1 [facility] Comment on above: Performed By: #### P REGQNT, TSH #### [facility] [address] [place] [address] Dr. Nicol Oswald HCG RANGE SEE BELOW Normal [facility] Comment on above: Result Comment: 5-50 0.2-1 WEEK 50-500 1-2 WEEKS 100-5,000 2-3 WEEKS 500-10,000 3-4 WEEKS 1,000-50,000 4-5 WEEKS 10,000-100,000 5-6 WEEKS 15,000-200,000 6-8 WEEKS 10,000-100,000 2-3 MONTHS Performed By: #### P REGQNT, TSH #### [facility] [address] [place] [address] Dr. Nicol Oswald TSHon 04-15-2022 TSH 1.312 uIU/mL Normal 0.358-3.740 [facility] Comment on above: Performed By: #### P REGQNT, TSH #### [facility] [address] [place] [address] Dr. Nicol Oswald PAP ACOG PANEL 2: 21 to 29on 08-31-2021 . . Normal [facility] Comment on above: Performed By: #### P DANIEL #### [facility] [address] [place] [address] Dr. Nicol Oswald Age Gdln ACOG Testing - Normal [facility] Comment on above: Performed By: #### P DANIEL #### [facility] [address] [address] [address] Nicol Oswald DIAGNOSIS: Comment Normal [facility] Comment on above: Result Comment: NEGA TIVE FOR INTRAEPITHELIAL LESION OR MALIGNANCY. THIS SPECIMEN WAS RESCREENED PART OF OUR COLOR RECEIVER PROGRAM. Performed By: #### P ROGES #### [facility] [address] [address] [address] Nicol Oswald Methodology: Comment Normal [facility] Comment on above: Result Comment: This liquid based ThinPrep(R) pap test was screened with the use of an image guided system. Performed By: #### P ROGES #### [facility] [address] [address] [address] Nicol Oswald Note: Comment Normal [facility] Comment on above: Result Comment: The Pap smear is a screening test designed to aid in the detection of premalignant and malignant conditions of the uterine cervix. It is not a diagnostic procedure and should not be used as the sole means of detecting cervical cancer. Both false-positive and false-negative reports do occur. . Performed By: #### P ROGES #### [facility] [address] [place] [address] Dr. Nicol Oswald Performed by: Comment Normal [facility] Comment on above: Result Comment: Mireille Blanco, Statistics Tutor (ASCP) Performed By: #### P ROGES #### [facility] [address] [place] [address] Dr. Nicol Oswald QC reviewed by: Comment Normal [facility] Comment on above: Result Comment: Tahira Roque, Statistics Tutor (ASCP) Performed By: #### P ROGES #### [facility] [address] [address] [address] Nicol Oswald Reflex Criteria: Comment Normal [facility] Comment on above: Result Comment: The HPV DNA reflex criteria were not met with this specimen result therefore, no HPV testing was performed. . Performed By: #### P ROGES #### [facility] [address] [address] [address] Nicol Oswald Specimen adequacy: Comment Normal [facility] Comment on above: Result Comment: Sati sfactory for evaluation. Endocervical and/or squamous metaplastic cells (endocervical component) are present. Performed By: #### Tenzin SANCHEZ #### [facility] [address] [place] [address] Dr. Nicol Oswald CBC Auto Diff Reflex Manualo n 02-18-2019 Automated Absolute Neutrophil 5.73 10*3/mm3 Normal [facility] Comment on above: Result Comment: Auto mated Absolute Neutrophil Count (ANC) is directly measured using a hematology instrument. ANC determined from manual differential cell count may differ. No [facility] reference range has been validated for this assay. Performed By: #### C D #### [place] [address] Basophil 0.5 % Normal 0.0-1.0 [facility] Comment on above: Performed By: #### C D #### [place] [address] Differential Type Automated Normal [facility] Comment on above: Performed By: #### C D #### [place] [address] Eosinophil 1.6 % Normal 1.0-4.0 [facility] Comment on above: Performed By: #### C D #### [place] [address] Erythrocyte distribution width (RBC) [Ratio] 13.4 % Normal 10-14.1 [facility] Comment on above: Performed By: #### C D #### [place] [address] Lymphocyte 22.6 % Low 24.0-44.0 [facility] Comment on above: Performed By: #### C D #### [place] [address] MCH (RBC) [Entitic mass] 30.7 pg Normal 26-34 [facility] Comment on above: Performed By: #### C D #### [place] [address] MCHC (RBC) [Mass/Vol] 33.2 % Normal 31.0-37.0 [facility] Comment on above: Performed By: #### C D #### Performed at [address] [address] MCV (RBC) [Entitic vol] 92.4 fL Normal 80-100 N [facility] Comment on above: Performed By: #### C D #### Performed at [address] [address] Monocyte 8.2 % High 1.0-7.0 [facility] Comment on above: Performed By: #### C D #### Performed at [address] [address] Neutrophil 67.1 % Normal 41.0-77.0 [facility] Comment on above: Performed By: #### C D #### Performed at [address] [address] Platelet mean volume (Bld) [Entitic vol] 11.5 fL Normal 9.3-13.0 [facility] Comment on above: Performed By: #### C D #### Performed at [address] [address] Platelets (Bld) [#/Vol] 268 10*3/uL Normal 140-440 [facility] Comment on above: Performed By: #### C D #### Performed at [address] [address] RBC (Bld) [#/Vol] 4.60 10*6/uL Normal 4.0-5.2 [facility] Comment on above: Performed By: #### C D #### Performed at [address] [address] WBC (Bld) [#/Vol] 8.6 10*3/uL Normal 4.5-11 [facility] Comment on above: Performed By: #### C D #### Performed at [address] [address] Comprehensive Metabolic Pane alexandr 02-18-2019 Albumin [Mass/Vol] 4.7 g/dL Normal 3.4-5.2 [facility] ALP [Catalytic activity/Vol] 47 U/L Low 50-136 [facility] ALT [Catalytic activity/Vol] 32 U/L Normal <40 [facility] AST [Catalytic activity/Vol] 29 U/L Normal 15-50 [facility] Bilirubin Ql (U) 0.2 mg/dL Normal 0.1-1.0 [facility] Calcium [Mass/Vol] 9.8 mg/dL Normal 8-10.5 [facility] Chloride [Moles/Vol] 104 mmol/L Normal 95-106 [facility] CO2 [Moles/Vol] 25 mmol/L Normal 24-35 [facility] Creatinine [Mass/Vol] 0.52 mg/dL Normal 0.5-1 [facility] Glucose [Mass/Vol] 135 mg/dL High 60-115 [facility] Potassium [Moles/Vol] 4.5 mmol/L Normal 3.7-5.3 [facility] Protein [Mass/Vol] 8.0 g/dL Normal 6.4-8.4 [facility] Sodium [Moles/Vol] 140 mmol/L Normal 135-145 [facility] Urea nitrogen [Mass/Vol] 15 mg/dL Normal 5-18 [facility] Valproic Acidon 02-18-2019 Valproic Acid 47.1 ug/mL Low 50.0-100.0 [facility] PAP, THIN PREP WITH IMAGINGo n 06-29-2018 PAP, THIN PREP WITH IMAGING Normal [facility] Comment on above: Result Comment: INTE RPRETATION Thin Prep Image-Guided Pap Test (Cervical/Endocervical) NEGATIVE FOR INTRAEPITHELIAL LESION /MALIGNANCY Satisfactory for evaluation (Endocervical/transformation zone component present) [facility]/06/27/2018 The Pap test is a screening test, hence, subject to both false negative and false positive results as evidenced by published data. For most women who lack an endocervical component on their Pap, and are undergoing routine screening, literature supports follow-up by obtaining a repeat Pap test in 12 months. Your patient's results should be interpreted in this context together with the history and clinical findings. HPV REQUESTS If ASC-US or above, perform high risk HPV testing. CLINICAL HISTORY Date of Last Menstrual Period: 05/18/18 ICD-CM DIAGNOSIS CODE(S) Z01.419 [employer] Exam (general) (routine) W/o Abn Findings * EFFECTIVE 06/08/2018 * * CLINICAL CHEMISTRY PLATFORM CHANGES ARE ASSOCIATED WITH * * REFERENCE RANGE CHANGES FOR A NUMBER OF ANALYTES. PLEASE * * REVIEW REFERENCE INTERVALS CAREFULLY * Pathology [facility]. [address] [place] [address] CLIA No. [id number] CAP Accreditation No. [id number] Knuckle Bender: Johnson Garland M.D. [facility] Accession Number: [id number] Performed By: #### P L PAP W/IMAGE #### [address] [address] [address] Nucleic-Acid Probe-Endoce rvical Swabon 06-24-2018 CT Nucleic-Acid Probe-Endocervical Swab Negative Normal NEGATIVE [facility] Comment on above: Performed By: #### G C Amp Endocerv, CT Amp Endocerv #### [address] [address] Age at specimen collection = Normal [facility] Comment on above: Performed By: #### G C Amp Endocerv, CT Amp Endocerv #### [address] [address] Performed By: #### P L PAP W/IMAGE #### [address] [address] GC Nucleic-Acid Probe-Endoce rvical Swabon 06-24-2018 GC Nucleic-Acid Probe-Endocervical Swab Negative Normal NEGATIVE [facility] Comment on above: Performed By: #### G C Amp Endocerv, CT Amp Endocerv #### [facility] [address] [place] [address] Platelet Functionon 03-24-19 19 Collagen/ADP 148 sec High 67-112 [facility] Comment on above: Performed By: #### P FA #### [facility] [address] [place] [address] Collagen/EPI 228 sec High 85-172 [facility] Comment on above: Performed By: #### P FA #### [facility] [address] [place] [address] Interpretation Abnormal platelet function. Normal [facility] Comment on above: Result Comment: Comm on pattern seen in von Willebrand disease and congenital platelet defects. Pattern can also be seen in thrombocytopenia (Platelet <150,000/ul), anemia (Hematocrit <35%), renal and cardiovascular disease. Primary hemostasis defect can place a patient at increased risk for bleeding during a surgical procedure. After correlation with clinical history, further evaluation of primary hemostasis could be considered, such as platelet aggregation tests and/or von Willebrand workup. PFA results on patients treated with Plavix (clopidogrel) have not been established. Performed By: #### P FA #### [facility] [address] [place] [address] XR ANKLE RIGHT STANDARDon XR ANKLE RIGHT STANDARD Radiology exam i s complete. No Radiologist dictation. Please follow up with ordering provider. Final result Normal [facility] Vital Signs Date Time Vital Sign Value Performing Clinician Facility 01-15-2023 13:50-0500 Body temperature 97.5 [degF] Evy Verma MD Work Phone: [facility] 01-15-2023 13:50-0500 Diastolic blood pressure 79 mm[Hg] Evy Verma MD Work Phone: [facility] 01-15-2023 13:50-0500 Heart rate 78 /min Evy Verma MD Work Phone: [facility] 01-15-2023 13:50-0500 Respiratory rate 16 /min Evy Verma MD Work Phone: [facility] 01-15-2023 13:50-0500 SaO2% (BldA) [Mass fraction] 98 % Evy Verma MD Work Phone: [facility] 01-15-2023 13:50-0500 Systolic blood pressure 117 mm[Hg] Evy Verma MD Work Phone: [phone] [place] [address] 01-15-2023 07:50-0500 Body height 161.3 cm Evy Verma MD Work Phone: [phone] [address] 01-15-2023 07:50-0500 Body mass index (BMI) [Ratio] 34.37 kg/m2 Evy Verma MD Work Phone: [facility] 01-15-2023 07:50-0500 Body weight 89.4 kg Evy Verma MD Work Phone: [facility] 01-09-2023 08:39-0400 Body height 161.3 cm Esau Hernandez PAC Work Phone: [facility] 01-09-2023 08:39-0400 Body mass index (BMI) [Ratio] 33.65 kg/m2 Esau Hernandez PAC Work Phone: [facility] 01-09-2023 08:39-0400 Body temperature 98.49 [degF] Esau Hernandez PAC Work Phone: [facility] 01-09-2023 08:39-0400 Body weight 87.54 kg Esau Hernandez PAC Work Phone: [facility] 01-09-2023 08:39-0400 Diastolic blood pressure 80 mm[Hg] Esau Hernandez PAC Work Phone: [facility] 01-09-2023 08:39-0400 Heart rate 81 /min Esau Hernandez PAC Work Phone: [facility] 01-09-2023 08:39-0400 Respiratory rate 18 /min Esau Hernandez PAC Work Phone: [facility] 01-09-2023 08:39-0400 SaO2% (BldA) [Mass fraction] 98 % Esau Hernandez PAC Work Phone: [facility] 01-09-2023 08:39-0400 Systolic blood pressure 134 mm[Hg] Esau Hernandez PAC Work Phone: [facility] 12-10-2022 10:53-0400 Body height 160 cm Evy Verma MD Work Phone: [facility] 12-10-2022 10:53-0400 Body mass index (BMI) [Ratio] 34.19 kg/m2 Evy Verma MD Work Phone: [facility] 12-10-2022 10:53-0400 Body weight 87.54 kg Evy Verma MD Work Phone: [facility] 12-10-2022 10:53-0400 Diastolic blood pressure 63 mm[Hg] Evy Verma MD Work Phone: [facility] 12-10-2022 10:53-0400 Heart rate 65 /min Evy Verma MD Work Phone: [facility] 12-10-2022 10:53-0400 Systolic blood pressure 125 mm[Hg] Evy Verma MD Work Phone: [facility] 11-08-2022 16:21-0400 Body height 160 cm Riana MORELOS Work Phone: [facility] Comment on above: verbal 11-08-2022 16:21-0400 Body mass index (BMI) [Ratio] 34.26 kg/m2 Crystal Raoul UNLOADING CHECKER-ACCOUNTING TEACHER Work Phone: [facility] 11-08-2022 16:21-0400 Body temperature 99.1 [degF] Crystal Raoul UNLOADING CHECKER-ACCOUNTING TEACHER Work Phone: [facility] 11-08-2022 16:21-0400 Body weight 87.73 kg Crystal Raoul UNLOADING CHECKER-ACCOUNTING TEACHER Work Phone: [facility] 11-08-2022 16:21-0400 Diastolic blood pressure 71 mm[Hg] Crystal Raoul UNLOADING CHECKER-ACCOUNTING TEACHER Work Phone: [facility] 11-08-2022 16:21-0400 Heart rate 97 /min Crystal Raoul UNLOADING CHECKER-ACCOUNTING TEACHER Work Phone: [facility] 11-08-2022 16:21-0400 Systolic blood pressure 116 mm[Hg] Crystal Raoul UNLOADING CHECKER-ACCOUNTING TEACHER Work Phone: [facility] 07-04-2021 09:38-0400 Body height 161.3 cm Crystal Raoul UNLOADING CHECKER-ACCOUNTING TEACHER Work Phone: [facility] Comment on above: verbal 07-04-2021 09:38-0400 Body mass index (BMI) [Ratio] 36.23 kg/m2 Crystal Raoul UNLOADING CHECKER-ACCOUNTING TEACHER Work Phone: [facility] 07-04-2021 09:38-0400 Body temperature 98.71 [degF] Crystal Raoul UNLOADING CHECKER-ACCOUNTING TEACHER Work Phone: [facility] 07-04-2021 09:38-0400 Body weight 94.26 kg Crystal Raoul UNLOADING CHECKER-ACCOUNTING TEACHER Work Phone: [facility] 07-04-2021 09:38-0400 Diastolic blood pressure 70 mm[Hg] Crystal Raoul UNLOADING CHECKER-ACCOUNTING TEACHER Work Phone: [facility] 07-04-2021 09:38-0400 Heart rate 73 /min Riana Chinchilla UNLOADING CHECKER-ACCOUNTING TEACHER Work Phone: [facility] 07-04-2021 09:38-0400 Systolic blood pressure 119 mm[Hg] Riana Chinchilla UNLOADING CHECKER-ACCOUNTING TEACHER Work Phone: [facility] Encounters Encounter Date Encounter Type Care Provider Facility Start: 02-14-2023 ambulatory [facility] Facility: [facility] Start: 01-15-2023 End: 01-15-2023 ambulatory EVY VERMA Facility:[facility] Start: 01-15-2023 End: 01-15-2023 Subsequent hospital visit by physician Evy Verma MD Work Phone: [facility] 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 Start: 01-09-2023 [facility] Facility: [facility] Start: 01-09-2023 Encounter for other preprocedural examination ESAU HERNANDEZ Facility:[facility] Start: 01-09-2023 End: 01-09-2023 Office consultation new/estab patient 60 min Esau Hernandez PAC Work Phone: Pre-Procedure Evaluation and Assessment [facility] Comment on above: Preop exam for inter nal medicine (Primary Dx); Jeavons syndrome; 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 Start: 01-09-2023 End: 01-09-2023 Patient encounter status Esau Hernandez PAC Work Phone: [facility] Start: 01-09-2023 End: 01-09-2023 Subsequent hospital visit by physician Evy Verma MD Work Phone: Imaging [facility] Comment on above: Arrived Start: 12-10-2022 ambulatory EVY VERMA Facility:[facility] Start: 12-10-2022 End: 12-10-2022 Office outpatient new 45 minutes Evy Verma MD Work Phone: [facility] 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) Start: 11-27-2022 ambulatory [facility] Facility: [facility] Start: 11-19-2022 ambulatory TIM ROLON Facility: [facility] Start: 11-14-2022 ambulatory TIM ROLON Facility: [facility] Start: 11-08-2022 ambulatory TIM ROLON Facility: [facility] Start: 11-08-2022 End: 11-08-2022 Office outpatient visit 40 minutes Riana Gordillo Raoul UNLOADING CHECKER-ACCOUNTING TEACHER Work Phone: [facility] 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) Start: 09-19-2022 ambulatory TIM ROLON Facility: [facility] Start: 09-13-2022 ambulatory RIANA CHINCHILLA Facilit y:[facility] Start: 05-23-2022 End: 05-24-[address] YOLANDA JASSO . Facility: Start: 05-01-2022 ambulatory EVY VERMA Facility:[facility] Start: 04-30-2022 End: 05-01-[address] DOCTOR ASHTON Facility: Start: 04-19-2022 ambulatory CORI Ham y:[facility] Start: 04-16-2022 End: 04-17-[address] YOLANDA JASSO . Facility: Start: 04-15-2022 End: 04-16-[address] YOLANDA JASSO . Facility: Start: 08-27-2021 End: 08-27-[address] YOLANDA JASSO . Facility: Start: 07-04-2021 End: 07-04-2021 Office outpatient visit 25 minutes Riana Duy Raoul UNLOADING CHECKER-ACCOUNTING TEACHER Work Phone: [facility] Comment on above: Generalized nonconvu lsive epilepsy (Primary Dx) Start: 06-24-2018 Encounter for gynecological examination (general) (routine) without abnormal findings NA NONE PER PATIENT [facility] Start: 06-24-2018 End: 06-24-2018 Patient encounter procedure GERARDO WARD Facility:[facility] Start: 05-25-2018 End: 05-25-2018 Patient encounter procedure . NONE PER PATIENT Facility:[facility] Start: 05-13-2018 End: 05-13-2018 Patient encounter procedure . NONE PER PATIENT Facility:[facility] Start: 03-23-2018 End: 03-24-2018 Patient encounter procedure JAMIL A [facility] Start: 03-20-2018 End: 03-21-2018 Patient encounter procedure JAMIL A [facility] Procedures Date Procedure Procedure Detail Performing Clinician Start: 01-15-2023 CARDIAC RHYTHM Other Ot her Start: 01-15-2023 Gonadotropin chorion ic qualitative Evy Verma MD Work Phone: Start: 01-09-2023 CBC AND ELECTRONIC DIFF Esau D Hernandez PAC Work Phone: Start: 01-09-2023 Complete blood count with white cell differential, automated Esau D Hernandez PAC Work Phone: Start: 01-09-2023 Prothrombin time Esau D Hernandez PAC Work Phone: Start: 01-09-2023 Radex spine cervical 2 or 3 views Evy Verma MD Work Phone: Start: 01-09-2023 Iadna s aureus ampli fied probe tq Esau D Hernandez PAC Work Phone: Start: 01-09-2023 Urine test visual color cmprsn meths Esau D Hernandez PAC Work Phone: Start: 02-18-2019 Blood count hematocrit Comment on above: Performed By: #### C D #### Performed at [facility], [address] [place] [address] Start: 03-23-2018 PLATELET FUNCTION TEST JAMIL SMITH Plan of Treatment Date Care Activity Detail Author Start: 02-14-2023 End: 02-14-2023 Patient encounter procedure [facility] Start: 01-15-2023 End: 01-15-2023 Admission to same day surgery center 01/15/2023 9:40 AM EST - 01/15/2023 11:50 AM EST Surgery [facility] [address] [place] [id number] Evy Verma MD [address] [place] [address] INSERTION REPLACEMENT NEUROSTIMULATOR GENERATOR CRANIAL/INTRACRANIAL [facility] Comment on above: INSERTION REPLACEMENT NEUROSTIMULATOR GE NERATOR CRANIAL/INTRACRANIAL Start: 01-15-2023 End: 01-15-2023 Insj/rplcmt cranial neurostim pulse generator INSERTION REPLACEMENT NEUROSTIMULATOR GENERATOR CRANIAL/INTRACRANIAL Jeavons syndrome 01/15/2023 9:40 AM EST [facility] Start: 01-15-2023 Subsequent hospital visit by physician 01/15/2023 9:40 AM EST Hospital Encounter [facility] [address] [place] [address] Evy Verma MD [address] [place] [address] Jeavons syndrome [facility] 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 Start: 12-10-2022 End: 12-11-2023 Radiographic imaging procedure XR STIMULATOR/INTRATHECAL PUMP Imaging Routine Jeavons syndrome Expected: 12/10/2022, Expires: 12/11/2023 [facility] Comment on above: Expected: 12/10/2022, Expires: Start: 12-10-2022 End: 12-10-2022 Patient encounter procedure 12/10/2022 11:30 AM EDT Office Visit [facility] [address] [place] [address] [place] [address] Evy Verma MD [address] [place] [address] [facility] Start: 11-08-2022 Influenza vaccination INFLUENZA VACCINE (#1) [facility] Start: 01-04-2022 End: 01-04-2022 Patient encounter procedure 01/04/2022 Office Visit Neurology Cori Arriaga DO [address] [place] [address] [facility] Start: 11-08-2021 Influenza vaccination INFLUENZA VACCINE (Season Ended) [facility] Start: 10-10-2021 End: 10-10-2021 Telemedicine consultation with patient 10/10/2021 Telemedicine Neurology Riana Chinchilla, UNLOADING CHECKER-ACCOUNTING TEACHER [address] [place] [address] Neurology [facility] Start: 08-15-2021 End: 08-15-2021 Telemedicine consultation with patient 08/15/2021 Telemedicine Neurology Riana Chinchilla, UNLOADING CHECKER-ACCOUNTING TEACHER [address] [place] [address] [facility]rology [facility] Start: 2013 Screening for malignant neoplasm of cervix CERVICAL CANCER SCREENING DISCUSSION [facility] Start: 07-15-2011 Third diphtheria, tetanus and acellular pertussis (DTaP) vaccination TDAP (ADULT) [facility] Start: 2010 Tetanus vaccination TETANUS [facility] Start: 07-15-2007 HIV screening HIV SCREENING DISCUSSION [facility] Start: 1997 COVID-19 VACCINE (1) COVID-19 VACCINE (1) [facility] Start: 01-14-1993 COVID-19 VACCINE (#1) COVID-19 VACCINE (#1) [facility] Start: 1992 Hepatitis C antibody, confirmatory test HEPATITIS C VIRUS SCREENING [facility] Start: 1992 Hepatitis C screening HEPATITIS C VIRUS SCREENING [facility] Start: 1992 Tetanus vaccination TETANUS [facility] Ecg routine ecg w/le ast 12 lds w/i&r [place] ELECTROCARDIOGRAM, COMPLETE [place] - OFFICE PERFORMED Routine 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 Ordered: 01/09/2023 [facility] Comment on above: Ordered: 01/09/2023 Elec horace implt smpl cn npgt prgrmg [place] ELEC HORACE IMPLT SMPL CN NPGT PRGRMG [place] Charge Routine Jeavons syndrome Ordered: 11/14/2022 [facility] Comment on above: Ordered: 11/14/2022 Insj/rplcmt cranial neurostim pulse generator INSERTION REPLACEMENT NEUROSTIMULATOR GENERATOR CRANIAL/INTRACRANIAL Jeavons syndrome [facility] Noninvasive ear/puls e oximetry single deter [place] NONINVASV OXYGEN SATUR; SINGLE [place] - OFFICE PERFORMED Routine 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 Ordered: 01/09/2023 [facility] Comment on above: Ordered: 01/09/2023 Immunizations Immunization Date Immunization Notes Care Provider Lee shelton 01-04-2014 influenza, seasonal, injectable, preservative free Evy Verma MD Work Phone: [facility] 01-04-2014 influenza virus vaccine, unspecified formulation Riana Chinchilla APRN-ACCOUNTING TEACHER Work Phone: [facility] Payers Date Payer Category Payer Unknown [id number] 2016 Unknown [id number] 2016 Self-pay 2014 Unknown [id number] 1992 Unknown [id number] 2.16.8 40.1.294050.3.579.2.173 1992 Unknown [id number] 2.16.8 40.1.472312.3.579.2.173 1992 Unknown [id number] 2.16.84 0.1.861780.3.579.2.754 1992 Unknown [id number] 2.16.84 0.1.905819.3.579.2.754 1992 Unknown [id number] 2.16.84 0.1.596208.3.579.2.754 1992 Unknown [id number] 2.16.84 0.1.747418.3.579.2.754 1992 Unknown [id number] 2.16.84 0.1.786966.3.579.2.593 1992 Unknown [id number] 2.16.84 0.1.826955.3.579.2.593 1992 Unknown [id number] 2.16.84 0.1.436140.3.579.2.593 1992 Unknown [id number] 2.16.84 0.1.319306.3.579.2.593 1992 Unknown [id number] 2.16.84 0.1.109985.3.579.2.593 1992 Unknown [id number] 2.16. 840.1.566617.3.579.2.594 1992 Unknown [id number] 2. 840.1.812107.3.579.2.594 1992 Unknown [id number] 2. 840.1.783704.3.579.2.594 1992 Unknown [id number] 2. 840.1.373798.3.579.2.594 1992 Unknown [id number] 2. 840.1.650761.3.579.2.594 1992 Unknown [id number] 2. 840.1.680693.3.579.2.594 1992 Unknown [id number] 2. 840.1.718738.3.579.2.594 1992 Unknown [id number] 2. 840.1.876382.3.579.2.594 1992 Unknown [id number] 2.16 840.1.913496.3.579.2.594 1992 Unknown [id number] 2.16 840.1.184078.3.579.2.594 1992 Unknown [id number] 2.16 840.1.016985.3.579.2.594 1992 Unknown [id number] 2.16 840.1.224101.3.579.2.594 1992 Unknown [id number] 2.16. 840.1.907702.3.579.2.594 1992 Unknown [id number] 2.16. 840.1.187033.3.579.2.594 1992 Unknown [id number] 2.16. 840.1.471293.3.579.2.594 1959 Unknown [id number] 1959 Unknown [id number] Social History Date Type Detail Facility Start: 10-28-2019 End: 11-08-2022 Tobacco smoking status NHIS Never smoked tobacco [facility] Start: 10-28-2019 End: 11-08-2022 Tobacco use and exposure Smokeless tobacco non-user [facility] Start: 10-28-2019 Alcohol intake Current drinker of alcohol (finding) [facility] Start: 10-28-2019 History SDOH Alcohol Frequency 2 [facility] Start: 10-28-2019 History SDOH Alcohol Comment rare wine [facility] Start: 10-28-2019 Education 17 [facility] Start: 1992 Sex Assigned At Not on file [facility] Start: 11-08-2022 End: 01-15-2023 Alcohol intake Ex-drinker (finding) [facility] Start: 10-28-2019 End: 01-15-2023 History of Social function [facility] Start: 10-28-2019 End: 01-15-2023 Alcohol Use Disorder Identification Test - Consumption [AUDIT-C] [facility] How often to you hav e a drink containing alcohol? Monthly or less [facility] Average Number of Drinks Not on file [facility] Start: 10-29-2019 Gender identity Identifies as female gender (finding) [facility] Start: 10-29-2019 Sexual orientation Heterosexual (finding) [facility] Medical Equipment Procedure Code Equipment Code Equipment Origin al Text Equipment Identifier Dates [employer] [id number] Start: 01-15-2023 Clinical Notes 07-04-2021 to 01-15-2023 Op Note - Evy Verma MD - 01/15/2023 2:26 PM ESTNursing Notes - May Ware RN - 01/15/2023 2:26 PM ESTNursing Notes - Beryl Gayle RN - 01/15/2023 12:34 PM ESTDischarge Instructions Note Date & Type Note Facility 01-15-2023 Miscellaneous Notes [facility] OPERATIVE REPORT PATIENT NAME: Rowena Byers PROCEDURE DATE: 01/15/2023 PREOPERATIVE DIAGNOSIS: Drug-resistant epilepsy, Depleted pulse generator. POSTOPERATIVE DIAGNOSIS: Same. PROCEDURES: Replacement of left programmable pulse generator ([employer]). SURGEON: Evy Verma MD. ASSISTANTS: Colt Meadows MD. ANESTHESIA: General. INDICATIONS: The patient is a 32-year-old with history of drug-resistant epilepsy s/p L VNS implantation who presents with depleted IPG. The risks, benefits, and alternatives were discussed with the patient, including bleeding, damage to hardware, and infection, and the patient's questions were answered. The patient ultimately elected to proceed with replacement of the IPG, and consent was signed. DESCRIPTION OF PROCEDURE: The patient was brought into the operating room and standard lines and monitors were placed by the anesthesia team. The patient was moved to the operating room table. Pressure points were padded. General anesthesia was induced by the anesthesia team. The patient was positioned supine with the head turned to the right. The IPG had been interrogated by the sales representative girls' apparel from the vendor. The upper chest over the existing pulse generator was prepped and draped. Local anesthetic was injected subcutaneously, and the previous incision was opened sharply. The prior incision was extended more medially, given the more medial location of the existing IPG. Monopolar cautery was used to dissect through the subcutaneous tissues. The device was identified, and the capsule was opened widely enough to express it. Hemostasis was achieved. The lead was disconnected from the old pulse generator and inspected. The new pulse generator was brought into the field, and the lead was carefully re-inserted into the new IPG and secured with the podiatric medicine doctor's screwdriver. At this point, a sas programmer was used to interrogate the new pulse generator and confirm that the lead impedances were within normal limits. Satisfied with the impedances, the new pulse generator was placed into the pocket, coiling the excess length of the lead wire beneath it. Hemostasis was verified. The cavity was irrigated copiously. Vancomycin powder was placed into the pocket. The IPG was sutured into place with silk suture. The incision was closed in layers with Vicryl, culminating in a subcuticular Stratafix and adhesive glue on the skin and a sterile dressing. All surgical counts were confirmed correct. Impedances were again checked at the end of the case and found to be within normal limits. The patient emerged from anesthesia, was transferred to the stretcher, and was taken to the recovery area. ESTIMATED BLOOD LOSS: Minimal. COMPLICATIONS: None immediate. IMPLANTS: [employer] IPG. ATTESTATION: Dr. Verma was scrubbed for the entire procedure and performed the critical portions. Pt and family were given AVS and verbalize understanding of instructions. Pt discharged via wheelchair. Report called to RN SPR, VSS, anesthesia sign out completed. 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 SURGEON Surgeon(s) and Role: * Evy Verma MD - Primary ANESTHESIOLOGIST Anesthesiologist: Cydney Zavala MD MILKER MACHINE: Geraldo Marion APRN-MARTITA Student Nurse Cardiology Manager: Chiquita Polanco SURGICAL STAFF Lawn Specialist: Miki Gary RN; Linda Gilmore RN Relief Lawn Specialist: Janet Carreon RN Scrub Person: Marielle Ibrahim Resident Assisting: Colt Meadows MD COMPLICATIONS None ESTIMATED BLOOD LOSS Minimal SPECIMENS No specimen sent * No specimens in log * Colt Meadows MD January 15, 2023 11:03 AM documented in this encounter [facility] 01-15-2023 Nurse Note Pt and family were given AVS and verbalize understanding of instructions. Pt discharged via wheelchair. [facility] 01-15-2023 Surgery Postoperative evaluation and management note [facility] OPERATIVE REPORT PATIENT NAME: Rowena Byers PROCEDURE DATE: 01/15/2023 PREOPERATIVE DIAGNOSIS: Drug-resistant epilepsy, Depleted pulse generator. POSTOPERATIVE DIAGNOSIS: Same. PROCEDURES: Replacement of left programmable pulse generator ([employer]). SURGEON: Evy Verma MD. ASSISTANTS: Colt Meadows MD. ANESTHESIA: General. INDICATIONS: The patient is a 32-year-old with history of drug-resistant epilepsy s/p L VNS implantation who presents with depleted IPG. The risks, benefits, and alternatives were discussed with the patient, including bleeding, damage to hardware, and infection, and the patient's questions were answered. The patient ultimately elected to proceed with replacement of the IPG, and consent was signed. DESCRIPTION OF PROCEDURE: The patient was brought into the operating room and standard lines and monitors were placed by the anesthesia team. The patient was moved to the operating room table. Pressure points were padded. General anesthesia was induced by the anesthesia team. The patient was positioned supine with the head turned to the right. The IPG had been interrogated by the sales representative girls' apparel from the vendor. The upper chest over the existing pulse generator was prepped and draped. Local anesthetic was injected subcutaneously, and the previous incision was opened sharply. The prior incision was extended more medially, given the more medial location of the existing IPG. Monopolar cautery was used to dissect through the subcutaneous tissues. The device was identified, and the capsule was opened widely enough to express it. Hemostasis was achieved. The lead was disconnected from the old pulse generator and inspected. The new pulse generator was brought into the field, and the lead was carefully re-inserted into the new IPG and secured with the podiatric medicine doctor's screwdriver. At this point, a sas programmer was used to interrogate the new pulse generator and confirm that the lead impedances were within normal limits. Satisfied with the impedances, the new pulse generator was placed into the pocket, coiling the excess length of the lead wire beneath it. Hemostasis was verified. The cavity was irrigated copiously. Vancomycin powder was placed into the pocket. The IPG was sutured into place with silk suture. The incision was closed in layers with Vicryl, culminating in a subcuticular Stratafix and adhesive glue on the skin and a sterile dressing. All surgical counts were confirmed correct. Impedances were again checked at the end of the case and found to be within normal limits. The patient emerged from anesthesia, was transferred to the stretcher, and was taken to the recovery area. ESTIMATED BLOOD LOSS: Minimal. COMPLICATIONS: None immediate. IMPLANTS: L[employer]ova [employer] IPG. ATTESTATION: Dr. Verma was scrubbed for the entire procedure and performed the critical portions. [facility] 01-15-2023 Nurse Note Report called to RN SPR, VSS, anesthesia sign out completed. 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 SURGEON Surgeon(s) and Role: * Evy Verma MD - Primary ANESTHESIOLOGIST Anesthesiologist: Cydney Zavala MD MILKER MACHINE: Geraldo Marion APRN-MILKER MACHINE Student Nurse Cardiology Manager: Chiquita Polanco SURGICAL STAFF Lawn Specialist: Miki Gary RN; Linda Gilmore RN Relief Lawn Specialist: Janet Carreon RN Scrub Person: Marielle Ibrahim Resident Assisting: Colt Meadows MD COMPLICATIONS None ESTIMATED BLOOD LOSS Minimal SPECIMENS No specimen sent * No specimens in log * Colt Meadows MD January 15, 2023 11:03 AM [facility] 01-15-2023 Nurse Surgical operation note Report given to ELECTRONIC PUBLISHER. Patient transported to PACU with anesthesia on a cart and oxygen. [facility] 01-15-2023 Nurse Note Report given to ELECTRONIC PUBLISHER. Patient transported to PACU with anesthesia on a cart and oxygen. documented in this encounter [facility] 01-15-2023 Hospital Discharg e instructions Colt Meadows MD - 01/15/2023 9:30 AM EST Discharge Instructions for DBS Surgery & Battery Placement Surgery Here are some general guidelines to assist you in your recovery at home. Please do not hesitate to call us with any questions or concerns you may have. We can be reached at [phone]. Your appointmentS will be in the Neuromodulation clinic in [address] Incision Care: If you have a dressing covering your incision, this can be removed the morning after your surgery 5 days after surgery, you can gently wash the stitches with soap and water. Very gently wash in the direction of the incision and do not scrub or use excessive force while cleansing your head You may shower on the 5th day after surgery. You may get your head wet, however avoid direct pressure of water on the surgical areas. Prolonged exposure to water may cause tissue breakdown and delay healing Avoid picking or scratching the incision at all times If there is a scab present, do not remove it. This means there is still healing taking place and it is important to continue allowing this to heal Avoid use of antibiotic ointment, alcohol, or hydrogen peroxide over the area of the incisions Avoid swimming or completely submerging the surgical areas in water until incisions are completely healed It is normal for your incision to be slightly swollen and pink. Your incisions should be inspected daily by another person who can get an overall view. Wound inspection, if possible, should begin while you are in the hospital so that significant changes will be more apparent after you go home The overall goal is to keep the incision clean and dry to prevent infection Activity: DO NOT lift over 5 pounds for 2 weeks DO NOT engage in light activities for 2 weeks. Examples of this include light housework and sexual activity DO NOT engage in heavy activities for 4 weeks. 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 rate 16, height 1.613 m (5' 3.5 ), weight 89.4 kg (197 lb 1.6 oz), SpO2 98 %. I have reviewed Rowena Byers's medical, surgical and other pertinent history, and I have updated the medication and allergy information in the computerized patient record. I have examined the patient, reviewed the previous H&P completed on date (01-09-23) and there are no changes. Today's surgical history and physical update was completed by Evy Verma MD, 01/15/2023, 9:08 AM. 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 rate 16, height 1.613 m (5' 3.5 ), weight 89.4 kg (197 lb 1.6 oz), SpO2 98 %. I have reviewed Rowena Byers's medical, surgical and other pertinent history, and I have updated the medication and allergy information in the computerized patient record. I have examined the patient, reviewed the previous H&P completed on date (01-09-23) and there are no changes. Today's surgical history and physical update was completed by Evy Verma MD, 01/15/2023, 9:08 AM. documented in this encounter [facility] 01-09-2023 History and physical note Images from the original note were not included. History of Present Illness Ms. Byers is a 32 y.o. female is being evaluated in OPAC due to her medical condition of Jeavons Syndrome, which increases her risk for perioperative complications. Pt also has a hx of: Name: Rowena Byers Date of Surgery: 01/15/2023 9:40 AM Surgeon: Evy Verma MD Pre-Op Diagnosis: Jeavons Syndrome Planned Procedure: REPLACEMENT OF LEFT CHEST VAGAL NERVE INTERNAL PULSE GENERATOR Do you take ASA? No Why do you take ASA? No Do you have any cardiac stents? No Do you have a Port? No Where is it located? N/A When was it last used? N/A ANESTHESIA/AIRWAY Anesthesia alerts - Vagus Nerve Stimulator Personal history of problems related to anesthesia (ex.Malignant Hyperthermia): no Family History of problems related to anesthesia (ex.Malignant Hyperthermia: no Pacer/AICD: no Glaucoma: no Beta Haylie: no Diabetic Mellitus: no MENA: no STOP-BANG Risk Assessment (3 or more YES responses is high risk) Do you snore - No Are you frequently tired during the day? - No Have you been observed gasping or choking while asleep? - No Do you have high blood pressure? - No Age more than 50? - No Gender male assigned at ? - No Neck circumference greater than 40 cm? - No Neck Circumference (cm): 38.5 BMI more then 35? - No Body mass index is 33.65 kg/m . Mallampati class - 1 TM Distance - 3 FB Oral Opening - 3 FB Teeth - normal dentition for age Cervical range of motion - within normal limits Neck circumference - Neck Circumference (cm): 38.5 Allergies and adverse drug reactions Allergies Allergen Reactions Seasonal Runny Nose and Congestion Anesthesia/Airway A/P - Does pt meet criteria for liberalized NPO? no. If no, why? ASA 3 or more Anesthesia Record Reviewed by me: N/A CARDIOVASCULAR History: Blood pressure 134/80, pulse 81, temperature 98.5 F (36.9 C), resp. rate 18, height 1.613 m (5' 3.5 ), weight 87.5 kg (193 lb), SpO2 98 %. Pt denies any hx of CAD, Arrhythmia's, CHF or CVA/TIA. Pt denies any cardiac stents, pacemaker or artificial heart valvular replacement. Pt denies any chest pain, CARVALHO, palpitations or orthopnea. BP Readings from Last 3 Encounters: 01/09/23 134/80 12/10/22 125/63 11/08/22 116/71 Functional status - :Moderate- Pt is able to perform household duties. Pt is able to go up two flights of stairs. Pt can walk one block around neighborhood. CARDIAC TESTIN01/09/23 ECG Reviewed by me and Dr Whitney Ward: NSR, HR 75, MARINE 130 Cardiovascular A/P - No further cardiac testing. This patient is in a low risk category as calculated using the RCRI with 0 risk factors. This pt has 0 points and a 3.9% risk of major cardiac event in the perioperative setting. PULMONARY Social History Tobacco Use Smoking Status Never Smokeless Tobacco Never Do you Vape? No Pulmonary A/P - Pt denies any smoking hx. Pt denies any SOB, wheezing, cough, fever, chills or any acute illnesses. SUBSTANCE ABUSE Social History Substance and Sexual Activity Alcohol Use Not Currently Comment: rare wine Social History Substance and Sexual Activity Drug Use Not Currently Types: Marijuana Substance Abuse A/P - Pt farmer a prior hx of Marijuana use in the past. Pt denies any current marijuana usage. Pt was given the following instructions: DO NOT USE ANY ILLICIT DRUGS BETWEEN NOW AND THE DAY OF YOUR SURGERY. LIMIT YOUR ALCOHOL USE BETWEEN NOW AND THE DAY OF SURGERY. Please hold your marijuana usage for 24 hrs prior to your scheduled surgery date. Illegal Drugs (suchs as; cocaine, heroine,crystal meth) and Alcohol, can alter the way anesthesia effects patients. In addition, smoking illicit drugs, can alter the way a patient returns to breathing on their own after being on a ventilator. Illegal drugs can change the effectiveness of prescription pain medications, requiring different dosages and can have interactions with anesthesia drugs, causing serious complications. Use of illicit drugs prior to your scheduled surgery date may be a cause for cancellation of your surgery. CLOTTING/BLEEDING History of DVT/PE - no Are you a Jehovah Witness? - no In case of surgeons plan or unforseen emergency, are you okay with receiving blood products? - yes Estimated Creatinine Clearance: 136 mL/min (by C-G formula based on SCr of 0.64 mg/dL). A/P - Pt denies any bleeding or clotting disorders. Recommend standard DVT/PE prophylaxis postoperatively. ENDOCRINE Diabetes A/P - Pt denies any hx of diabetes. Lab Results Component Value Date GLUCOSE 159 (H) 12/29/2020 ADDITIONAL DIAGNOSES OF CONCERN Seizures- Chronic condition with use of Lamictal, Midazolam prn and Lorazepam prn for management. Pt reports that last seizure was 01/09/23. MEDICATIONS Current Outpatient Medications Medication Sig cloBAZam 20 MG tablet Take 1 tablet by mouth Daily (with dinner). Femara 2.5 MG tablet Take 1 tablet by mouth at bedtime. Folic acid 1 MG tablet Take 1 tablet by mouth Daily (with dinner). LamoTRIgine 300 MG Tab SR 24 HR Take 1 tablet by mouth at bedtime. loratadine 10 MG tablet Take 1 tablet by mouth as needed. LORazepam 0.5 MG tablet 1 tab up to three times a week as needed for anxiety (Patient taking differently: Take 1 tablet by mouth as needed. 1 tab up to three times a week as needed for anxiety) medroxyPROGESTERone 10 MG tablet Take 1 tablet by mouth as needed. Takes for 14 days each time needed Melatonin 3 MG tablet TAKE 1 TABLET BY MOUTH EVERYDAY AT BEDTIME (Patient taking differently: Take 5 mg by mouth at bedtime as needed.) Melatonin 5 MG Chew Tab Chew 1 tablet at bedtime as needed. metFORMIN 500 MG tablet Take 1 tablet by mouth at bedtime. Midazolam (Nayzilam) 5 MG/0.1ML Solution 5 mg by Nasal route as needed. For seizure clusters longer than 5 minutes. May repeat in 10 minutes. Do not exceed 10 mg in 24 hours. Prenat MV-Min w/Wy-Wegupi-JYW ( COMPLETE PO) Take 1 tablet by mouth at bedtime. Sertraline 100 MG tablet 1 tablet at bedtime (Patient taking differently: Take 1 tablet by mouth at bedtime.) Mupirocin 2 % ointment Please apply to both nostrils twice per day for five days. Please use medication for five days prior to your scheduled surgery date. Medication A/P - Instructions for preoperative medications given to the patient in AVS. LABS Orders Placed This Encounter SCREEN: MRSA/MSSA CBC, EDIF, PLATELET CHEM 6 (LYTES, BUN CREA) PT,INR,PTT CBC AND ELECTRONIC DIFF Mupirocin 2 % ointment HCG QUALITATIVE, URINE Pulse Ox OH ECG, CLINIC PERFORMED Lab A/P - Labs ordered. Lab Results Component Value Date SODIUM 137 01/09/2023 POTASSIUM 4.0 01/09/2023 CHLORIDE 102 01/09/2023 CO2 26 01/09/2023 BUN 12 01/09/2023 CREATSERUM 0.64 01/09/2023 GLUCOSE 159 (H) 12/29/2020 Lab Results Component Value Date WBC 10.38 01/09/2023 HGB 14.3 01/09/2023 HCT 42.5 01/09/2023 PLATELET 326 01/09/2023 MCV 92.4 01/09/2023 Anesthesia/Medical Assessment/plan: Reviewed patient's history, assessment & ECG findings with Anesthesiologist Dr Whitney Ward. This patient has been medically OPTIMIZED FOR SURGERY. [facility] [address] Review of Systems (OSUROS)Review of Systems Constitutional: Negative for fatigue and fever. HENT: Negative for hearing loss and trouble swallowing. Eyes: Negative for pain. Respiratory: Negative for chest tightness, shortness of breath and wheezing. Cardiovascular: Negative for chest pain and leg swelling. Gastrointestinal: Negative for abdominal distention, abdominal pain, nausea and vomiting. Endocrine: Negative for polydipsia and polyphagia. Genitourinary: Negative for dysuria and hematuria. Musculoskeletal: Negative for gait problem. Skin: Negative for rash. Neurological: Positive for seizures. Negative for dizziness and headaches. Psychiatric/Behavioral: Negative for suicidal ideas. The patient is not nervous/anxious. Physical Examination (PHYSEXAM)Physical Exam Vitals reviewed. HENT: Head: Normocephalic. Nose: Nose normal. Mouth/Throat: Mouth: Mucous membranes are moist. Pharynx: Oropharynx is clear. Eyes: Conjunctiva/sclera: Conjunctivae normal. Cardiovascular: Heart sounds: Normal heart sounds. Pulmonary: Effort: Pulmonary effort is normal. Breath sounds: Normal breath sounds. No wheezing. Abdominal: General: There is no distension. Palpations: Abdomen is soft. Musculoskeletal: General: No swelling. Normal range of motion. Cervical back: Normal range of motion and neck supple. Skin: General: Skin is warm and dry. Neurological: General: No focal deficit present. Mental Status: She is alert and oriented to person, place, and time. Psychiatric: Mood and Affect: Mood normal. Past Medical History: Diagnosis Date Anxiety on Lexapro Anxiety disorder 03/05/2022 Hematuria from childhood Seizure Past Surgical History: Procedure Laterality Date INSERTION NEUROSTIMULATOR ELECTRODE & GENERATOR CRANIAL NERVE (EG VAGUS) OPEN last 2018 Patient Care Team: Tim Rolon DO as PCP - General (Internal Medicine) Riana Chinchilla APRN-ACCOUNTING TEACHER (Certified Nurse Practitioner) Family History Problem Relation Age of Onset Prostate Cancer Maternal Grandfather Mental Illness Maternal Grandmother Depression , Anxiety Prostate Cancer Paternal Grandfather Cancer- Other Paternal Grandfather Diabetes Paternal Uncle Social History Socioeconomic History Marital status: Highest education level: Bachelor's degree (e.g., BA, AB, BS) Occupational History 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 History of Present Illness Ms. Byers is a 32 y.o. female is being evaluated in [facility] due to her medical condition of Jeavons Syndrome, which increases her risk for perioperative complications. Pt also has a hx of: Name: Rowena Byers Date of Surgery: 01/15/2023 9:40 AM Surgeon: Evy Verma MD Pre-Op Diagnosis: Jeavons Syndrome Planned Procedure: REPLACEMENT OF LEFT CHEST VAGAL NERVE INTERNAL PULSE GENERATOR Do you take ASA? No Why do you take ASA? No Do you have any cardiac stents? No Do you have a Port? No Where is it located? N/A When was it last used? N/A ANESTHESIA/AIRWAY Anesthesia alerts - Vagus Nerve Stimulator Personal history of problems related to anesthesia (ex.Malignant Hyperthermia): no Family History of problems related to anesthesia (ex.Malignant Hyperthermia: no Pacer/AICD: no Glaucoma: no Beta Haylie: no Diabetic Mellitus: no MENA: no STOP-BANG Risk Assessment (3 or more YES responses is high risk) Do you snore - No Are you frequently tired during the day? - No Have you been observed gasping or choking while asleep? - No Do you have high blood pressure? - No Age more than 50? - No Gender male assigned at ? - No Neck circumference greater than 40 cm? - No Neck Circumference (cm): 38.5 BMI more then 35? - No Body mass index is 33.65 kg/m . Mallampati class - 1 TM Distance - 3 FB Oral Opening - 3 FB Teeth - normal dentition for age Cervical range of motion - within normal limits Neck circumference - Neck Circumference (cm): 38.5 Allergies and adverse drug reactions Allergies Allergen Reactions Seasonal Runny Nose and Congestion Anesthesia/Airway A/P - Does pt meet criteria for liberalized NPO? no. If no, why? ASA 3 or more Anesthesia Record Reviewed by me: N/A CARDIOVASCULAR History: Blood pressure 134/80, pulse 81, temperature 98.5 F (36.9 C), resp. rate 18, height 1.613 m (5' 3.5 ), weight 87.5 kg (193 lb), SpO2 98 %. Pt denies any hx of CAD, Arrhythmia's, CHF or CVA/TIA. Pt denies any cardiac stents, pacemaker or artificial heart valvular replacement. Pt denies any chest pain, CARVALHO, palpitations or orthopnea. BP Readings from Last 3 Encounters: 01/09/23 134/80 12/10/22 125/63 11/08/22 116/71 Functional status - :Moderate- Pt is able to perform household duties. Pt is able to go up two flights of stairs. Pt can walk one block around neighborhood. CARDIAC TESTIN01/09/23 ECG Reviewed by me and Dr Whitney Ward: NSR, HR 75, MARINE 130 Cardiovascular A/P - No further cardiac testing. This patient is in a low risk category as calculated using the RCRI with 0 risk factors. This pt has 0 points and a 3.9% risk of major cardiac event in the perioperative setting. PULMONARY Social History Tobacco Use Smoking Status Never Smokeless Tobacco Never Do you Vape? No Pulmonary A/P - Pt denies any smoking hx. Pt denies any SOB, wheezing, cough, fever, chills or any acute illnesses. SUBSTANCE ABUSE Social History Substance and Sexual Activity Alcohol Use Not Currently Comment: rare wine Social History Substance and Sexual Activity Drug Use Not Currently Types: Marijuana Substance Abuse A/P - Pt farmer a prior hx of Marijuana use in the past. Pt denies any current marijuana usage. Pt was given the following instructions: DO NOT USE ANY ILLICIT DRUGS BETWEEN NOW AND THE DAY OF YOUR SURGERY. LIMIT YOUR ALCOHOL USE BETWEEN NOW AND THE DAY OF SURGERY. Please hold your marijuana usage for 24 hrs prior to your scheduled surgery date. Illegal Drugs (suchs as; cocaine, heroine,crystal meth) and Alcohol, can alter the way anesthesia effects patients. In addition, smoking illicit drugs, can alter the way a patient returns to breathing on their own after being on a ventilator. Illegal drugs can change the effectiveness of prescription pain medications, requiring different dosages and can have interactions with anesthesia drugs, causing serious complications. Use of illicit drugs prior to your scheduled surgery date may be a cause for cancellation of your surgery. CLOTTING/BLEEDING History of DVT/PE - no Are you a Jehovah Witness? - no In case of surgeons plan or unforseen emergency, are you okay with receiving blood products? - yes Estimated Creatinine Clearance: 136 mL/min (by C-G formula based on SCr of 0.64 mg/dL). A/P - Pt denies any bleeding or clotting disorders. Recommend standard DVT/PE prophylaxis postoperatively. ENDOCRINE Diabetes A/P - Pt denies any hx of diabetes. Lab Results Component Value Date GLUCOSE 159 (H) 12/29/2020 ADDITIONAL DIAGNOSES OF CONCERN Seizures- Chronic condition with use of Lamictal, Midazolam prn and Lorazepam prn for management. Pt reports that last seizure was 01/09/23. MEDICATIONS Current Outpatient Medications Medication Sig cloBAZam 20 MG tablet Take 1 tablet by mouth Daily (with dinner). Femara 2.5 MG tablet Take 1 tablet by mouth at bedtime. Folic acid 1 MG tablet Take 1 tablet by mouth Daily (with dinner). LamoTRIgine 300 MG Tab SR 24 HR Take 1 tablet by mouth at bedtime. loratadine 10 MG tablet Take 1 tablet by mouth as needed. LORazepam 0.5 MG tablet 1 tab up to three times a week as needed for anxiety (Patient taking differently: Take 1 tablet by mouth as needed. 1 tab up to three times a week as needed for anxiety) medroxyPROGESTERone 10 MG tablet Take 1 tablet by mouth as needed. Takes for 14 days each time needed Melatonin 3 MG tablet TAKE 1 TABLET BY MOUTH EVERYDAY AT BEDTIME (Patient taking differently: Take 5 mg by mouth at bedtime as needed.) Melatonin 5 MG Chew Tab Chew 1 tablet at bedtime as needed. metFORMIN 500 MG tablet Take 1 tablet by mouth at bedtime. Midazolam (Nayzilam) 5 MG/0.1ML Solution 5 mg by Nasal route as needed. For seizure clusters longer than 5 minutes. May repeat in 10 minutes. Do not exceed 10 mg in 24 hours. Prenat MV-Min w/Rj-Onpzzi-ZLP ( COMPLETE PO) Take 1 tablet by mouth at bedtime. Sertraline 100 MG tablet 1 tablet at bedtime (Patient taking differently: Take 1 tablet by mouth at bedtime.) Mupirocin 2 % ointment Please apply to both nostrils twice per day for five days. Please use medication for five days prior to your scheduled surgery date. Medication A/P - Instructions for preoperative medications given to the patient in AVS. LABS Orders Placed This Encounter SCREEN: MRSA/MSSA CBC, EDIF, PLATELET CHEM 6 (LYTES, BUN CREA) PT,INR,PTT CBC AND ELECTRONIC DIFF Mupirocin 2 % ointment HCG QUALITATIVE, URINE Pulse Ox OH ECG, CLINIC PERFORMED Lab A/P - Labs ordered. Lab Results Component Value Date SODIUM 137 01/09/2023 POTASSIUM 4.0 01/09/2023 CHLORIDE 102 01/09/2023 CO2 26 01/09/2023 BUN 12 01/09/2023 CREATSERUM 0.64 01/09/2023 GLUCOSE 159 (H) 12/29/2020 Lab Results Component Value Date WBC 10.38 01/09/2023 HGB 14.3 01/09/2023 HCT 42.5 01/09/2023 PLATELET 326 01/09/2023 MCV 92.4 01/09/2023 Anesthesia/Medical Assessment/plan: Reviewed patient's history, assessment & ECG findings with Anesthesiologist Dr Whitney Ward. This patient has been medically OPTIMIZED FOR SURGERY. [facility] The [address] Review of Systems (OSUROS)Review of Systems Constitutional: Negative for fatigue and fever. HENT: Negative for hearing loss and trouble swallowing. Eyes: Negative for pain. Respiratory: Negative for chest tightness, shortness of breath and wheezing. Cardiovascular: Negative for chest pain and leg swelling. Gastrointestinal: Negative for abdominal distention, abdominal pain, nausea and vomiting. Endocrine: Negative for polydipsia and polyphagia. Genitourinary: Negative for dysuria and hematuria. Musculoskeletal: Negative for gait problem. Skin: Negative for rash. Neurological: Positive for seizures. Negative for dizziness and headaches. Psychiatric/Behavioral: Negative for suicidal ideas. The patient is not nervous/anxious. Physical Examination (PHYSEXAM)Physical Exam Vitals reviewed. HENT: Head: Normocephalic. Nose: Nose normal. Mouth/Throat: Mouth: Mucous membranes are moist. Pharynx: Oropharynx is clear. Eyes: Conjunctiva/sclera: Conjunctivae normal. Cardiovascular: Heart sounds: Normal heart sounds. Pulmonary: Effort: Pulmonary effort is normal. Breath sounds: Normal breath sounds. No wheezing. Abdominal: General: There is no distension. Palpations: Abdomen is soft. Musculoskeletal: General: No swelling. Normal range of motion. Cervical back: Normal range of motion and neck supple. Skin: General: Skin is warm and dry. Neurological: General: No focal deficit present. Mental Status: She is alert and oriented to person, place, and time. Psychiatric: Mood and Affect: Mood normal. Past Medical History: Diagnosis Date Anxiety on Lexapro Anxiety disorder 03/05/2022 Hematuria from childhood Seizure Past Surgical History: Procedure Laterality Date INSERTION NEUROSTIMULATOR ELECTRODE & GENERATOR CRANIAL NERVE (EG VAGUS) OPEN last 2018 Patient Care Team: Tim Rolon DO as PCP - General (Internal Medicine) Riana Chinchilla APRN-ACCOUNTING TEACHER (Certified Nurse Practitioner) Family History Problem Relation Age of Onset Prostate Cancer Maternal Grandfather Mental Illness Maternal Grandmother Depression , Anxiety Prostate Cancer Paternal Grandfather Cancer- Other Paternal Grandfather Diabetes Paternal Uncle Social History Socioeconomic History Marital status: Highest education level: Bachelor's degree (e.g., BA, AB, BS) Occupational History 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 INSERTION REPLACEMENT NEUROSTIMULATOR GENERATOR CRANIAL/INTRACRANIAL - Left REPLACEMENT OF LEFT CHEST VAGAL NERVE INTERNAL PULSE GENERATOR Concerns/Comments: 1.Airway-- 03/2018 Difficult Airway: No; Airway Type: endotracheal tube; Size: 7; ETT: Cuffed, Cuff inflated; Air Leak (cm H2O): 20; Secured at (cm): 22; Laryngoscope: Sarai; View: Grade 1; Tools/Methods used: Pre-oxygenation, Stylet, Positive ETCO2, Breath sounds equal and bilateral; Insertion Attempts: 1; Comments: atraumatic 2. CV--Patient denies CP, CARVALHO, orthopnea, and palpitations. Has moderate functional capacity. 3. 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 She takes Lamictal for treatment 4. 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 Will check hCG today and on day of surgery. Patient understands that surgery may be cancelled if she is . Anesthesia Assessment:No contraindications to planned surgery. Pending review of the patient's labs.ECG reviewed. Whitney Ward MD [facility] documented in this encounter [facility] 01-09-2023 Instructions Robyn Dempsey LPN - 01/09/2023 8:30 AM EDT Patient Medication Instructions: - Only take LORazepam 0.5 MG tablet, 1 tab up to three times a week as needed for anxiety (Patient taking differently: Take 1 tablet by mouth as needed. 1 tab up to three times a week as needed for anxiety) Midazolam (Nayzilam) 5 MG/0.1ML Solution, 5 mg by Nasal route as needed. For seizure clusters longer than 5 minutes. May repeat in 10 minutes. on the morning of surgery with a sip of water. Do not take any of your other medications on the morning of surgery. If you use an Inhaler/Inhalers on a daily basis, then use your inhaler on the morning of surgery. - Do NOT take Herbal Medication (including multi-vitamin, fish oil (Trego-3), garlic, Glucosamine - Chondroitin ,gingko, ginseng, Vitamin E, probiotics) vitamins and supplements 2 weeks before surgery. - Do NOT take Excedrin, ibuprofen, Advil, Voltaren (Diclofenac), Motrin, naproxen, or Aleve, Mobic (Meloxicam) for the 7-14 days before surgery. Acetaminophen (Tylenol) is ok to take up until the day of surgery. Patient Pre-Operative Instructions: Diet Instructions: -NO food or drink after 11 pm the night before surgery except for enough water to take your medications. (No Candy, Mints and/or Gum) - Do NOT wear any hearing aids, jewelry, watches, rings, hairpieces, makeup, glasses or contact lenses with you into your surgery. - Shower the night before and the morning of surgery. - Do NOT shave, or pluck hair from anywhere near the surgical site one week prior to surgery. - [place] your teeth and rinse your mouth the morning of surgery. - Do NOT bring your dentures or partials with you into surgery. They may be lost. Give them to someone to bring to you after surgery. If you are unable to complete your scheduled testing or appointments made by [facility] please contact [facility] at [phone]. Failure to do so could delay or cancel your surgery. If you Vape, please do not Vape for 24 hrs prior to your scheduled surgery date. DO NOT USE ANY ILLICIT DRUGS BETWEEN NOW AND THE DAY OF YOUR SURGERY. LIMIT YOUR ALCOHOL USE BETWEEN NOW AND THE DAY OF SURGERY. Please hold any marijuana usage to 24 hrs prior to your scheduled surgery date. Illegal Drugs (suchs as; cocaine, heroine,crystal meth) and Alcohol, can alter the way anesthesia effects patients. In addition, smoking illicit drugs, can alter the way a patient returns to breathing on their own after being on a ventilator. Illegal drugs can change the effectiveness of prescription pain medications, requiring different dosages and can have interactions with anesthesia drugs, causing serious complications. Use of illicit drugs prior to your scheduled surgery date may be a cause for cancellation of your surgery. Today we completed a nasal swab culture to check for a specific bacteria called MRSA or MSSA. This is a bacteria that can live in the nose and cause no symptoms or illness. If your culture is positive, we will contact you and send in a prescription for mupirocin to your pharmacy. You will be instructed to rub the ointment into each of your nostrils twice a day for 5 days prior to your surgery. Your nurse will also swab your nose with a betadine swab in the preoperative area on your day of surgery. Please notify the nurse if you have an iodine allergy. To lessen your chance of getting an infection after your surgery, you will need to wash your skin with a special soap called 4% Chlorhexidine Gluconate (CHG) before your surgery. Your nurse has given you CHG soap today and written instructions; Getting Your Skin Ready for Surgery . Please review the instructions carefully prior to your surgery. If you become ill, develop a fever, cough, or any type of infection within 14 days of your scheduled surgery, please call the surgeon's office. You may need to have your surgery moved, as we would not want to put you at risk for complications due to an illness. If you are placed on Antibiotics within 1 week of surgery, please notify our team immediately at [phone]. - If you have Sleep apnea and have a CPAP or BIPAP, then bring your CPAP mask and machine with you to the hospital. Please contact Medical Information Management Department for all records requests. [phone] Avtrudi/mateo documented in this encounter [facility] 12-10-2022 History of Presen t illness Narrative Neurosurgery Clinic Note Date: 12/10/2022 Patient: Rowena Byers Date of : 1990 Visit Date: 12/10/22 Visit Type: New Patient Chief Complaint Chief Complaint Patient presents with New Patient 32 y.o female here for consult. History of Present Illness Rowena Byers is a 32 y.o. right-handed patient with history of drug-resistant epilepsy, s/p L VNS, who presents with IPG approaching depletion. Her seizures are comprised of eyelid fluttering with eyes rolling backwards without clear loss of awareness (Jeavons syndrome). The patient had a VNS device implanted in 2011. She describes having had an IPG replacement on 03/27/2018, record accessed shows under general anesthesia. The patient saw Riana De La Cruzley on 11-08-22 and at that point was reported <50 seizures a week which was considered an improvement (previously reported as 20-100 seizures per day). Interrogation of the VNS demonstrated OK lead impedance with battery life at 15-25%. Plans were therefore made for replacement of the IPG (SenTiva). The patient notes that when the device was implanted she could sometimes see voice changes with stimulation. She describes that when she uses the magnet sometimes she will have a cough. She has otherwise had no major issues with her prior surgeries. Patient reports a recent diagnosis of PCOS and has seen some degree of seizure frequency fluctuation with hormonal changes. She describes that some days she can have less than 20 seizures, but other days she can have 100s. Past Medical/Surgical History Past Medical History: Diagnosis Date Anxiety on Lexapro Anxiety disorder 03/05/2022 Hematuria from childhood Seizure Past Surgical History: Procedure Laterality Date INSERTION NEUROSTIMULATOR ELECTRODE & GENERATOR CRANIAL NERVE (EG VAGUS) OPEN last 2018 Allergies: Allergies Allergen Reactions Seasonal Runny Nose and Congestion Social History: reports that she has never smoked. She has never used smokeless tobacco. She reports that she does not currently use alcohol. She reports that she does not currently use drugs after having used the following drugs: Marijuana. Physical Exam: General: No acute distress. Alert and answering questions appropriately. HENT: Normocephalic, without obvious abnormality, atraumatic Musculoskeletal: No obvious contractures, deformities Cranial Nerves: EOMI, FS, TML, SILT V1-V3. Motor: Grossly full strength in upper and lower extremities. No pronator drift. Sensory: Intact to light touch grossly in upper and lower extremities Well healed incision along left anterior neck and left upper chest. IPG appears to be superior and medial to the incision Imaging: XR Chest 03-27-2018 Impression 1. There is a row of 3 radiopaque markers along the left lateral chest wall/axilla. 2. Lungs are clear. No pleural effusion or pneumothorax. Assessment: 32 y.o. right-handed patient with history of drug-resistant epilepsy, s/p L VNS, who presents with IPG approaching depletion. Due to the depleted IPG, we discussed the risks, benefits, and alternatives of IPG replacement. We discussed how the procedure is performed. Risks include pain, bleeding, infection, damage to existing hardware, malposition of device, need for additional procedures, and neurologic injury. We discussed that the procedure is typically a day procedure in which the patient would be able to go home after being monitored in the recovery area. Consent was signed after discussion of risks, benefits, and alternatives. We discussed possible plans of action should the VNS wiring be damaged during the course of IPG replacement. Plan: OPAC L VNS IPG replacement XR stimulator I spent approximately 45 minutes of time that were dedicated to clinical evaluation, including [id number] time; counseling and education; chart completion; reviewing of medical records, labs, imaging, and medications; and placing orders and referrals. Over 50% of the time spent was in counseling/coordination of the issues as described in the assessment and plan. I answered the patient's questions to the best of my ability. Patient understands and agrees with the plan. Spoke to patient, providing a medication reminder to not take medications (such as aspirin, excedrin, plavix), multivitamins/minerals/herbal supplements (such as Trego-3, garlic, Glucosamine - Chondroitin, gingko, ginseng, Vitamin E, fish oil, etc), non-steroidal anti-inflammatory medications (NSAIDs) (such as Ibuprofen/Motrin/Advil, Aleve, Celebrex) for 10 days prior to surgery, as these are blood thinners. She was advised that Tylenol is the preferred option for pain. She stated understanding. documented in this encounter [facility] 11-08-2022 History of Presen t illness Narrative Images from the original note were not included. Rowena Byers was seen in the [facility] on 11/08/2022. She is here today for a follow-up in clinic accompanied by her , Pedro. She was last seen on 04/19/[address] Cori Dennis DO and with wi 09/19/22. History of Present Illness INTERVAL HISTORY: Rowena is a 32 y.o. right handed female who is here for VNS titration today. She has continues to experience breakthrough seizures daily though they are much less severe now. She is also having less myoclonic jerks. She is not sure how helpful the lamotrigine has been but she has tolerated the VNS titration from last visit. She increased the lamotrigine SR to 250 mg daily on 09/16/22. Since her last office visit she has been tracking her overall mood, seizures, and cycle to see if there are patterns with it. Pertinent Seizure History Per Dr Dennis 04/2022: History of Present Illness: As you may know, Ms. Byers started having seizures at the age of 9. Her seizures eventually resolved and she weaned off of her medications at the age of 17. After puberty, her seizures returned and she has been on ASMs since this time. 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 There is no clear loss of awareness. She has had 5 clusters of seizures in her lifetime with loss of awareness (semiology of this is unclear generalized clonic seizure vs myoclonic seizures?). This last occurred in 02/2017 when she was without her medications for 5 days. In terms of her work-up, the patient has had an EEG in 2007 that showed generalized polyspike and wave discharges with extreme photosensitivity. Of note, the patient had a VNS that was placed in 2011 Interval History: Since the last visit, the patient continues to have <50 seizures a week (compared to 20-100 seizures a day) that are described as described as dialeptic seizures with eyelid myoclonia. This has been quite a significant decrease in seizure frequency which she attributes to Lamictal. She is compliant on her Lamictal and Onfi and has no clear side effects. She is currently sexually active and is trying to get . She is following up with her OBGYN as she has been having periods of amenorrhea and is currently being worked up for PCOS. Childbearing Age Woman with Epilepsy: Patient on OCP in Conjunction with an Enzyme Inducing Anti-epileptic Drug (ie Phenobarbital, Primidone, Phenytoin, Carbamazepine, Oxcarbazepine): no Patient on OCP in Conjunction with Lamictal: no Patient on OCP in Conjunction with Topamax (of at least 200 mg daily): no Patient taking supplemental Folate: Yes, FA 1 mg + PNV Anti-epileptic Medications: Current Anti-epileptic Medications Onfi 20 mg daily Lamictal 200 mg XR Previous Anti-epileptic Medications Banzel LEV, LTG, ZNS, VPA, ETX, Epidiolex (diarrhea) Depakote Vimpat PAST MEDICAL, FAMILY, SOCIAL HISTORY, ALLERGIES AND MEDICATIONS Past Medical History She has a past medical history of Anxiety and Hematuria. Past Family History family history is not on file. Past Social History She reports that she has never smoked. She has never used smokeless tobacco. She reports current alcohol use. She reports that she does not use drugs. Past Surgical History has a past surgical history that includes insertion neurostimulator electrode & generator cranial nerve (eg vagus) open. Allergies She is allergic to seasonal. Medications Outpatient Medications Prior to Visit Medication Sig Dispense Refill cloBAZam 20 MG tablet Take 1 tablet by mouth Daily (with dinner). 30 tablet 5 Folic acid 1 MG tablet Take 1 tablet by mouth Daily (with dinner). 30 tablet 11 LamoTRIgine 250 MG Tab SR 24 HR TAKE 1 TABLET BY MOUTH EVERYDAY AT BEDTIME 90 tablet 0 loratadine 10 MG tablet Take by mouth Daily (with dinner). LORazepam 0.5 MG tablet 1 tab up to three times a week as needed for anxiety 10 tablet 1 Melatonin 3 MG tablet TAKE 1 TABLET BY MOUTH EVERYDAY AT BEDTIME 90 tablet 2 Midazolam (Nayzilam) 5 MG/0.1ML Solution 5 mg by Nasal route as needed. For seizure clusters longer than 5 minutes. May repeat in 10 minutes. Do not exceed 10 mg in 24 hours. 2 Each 0 Sertraline 100 MG tablet 1 tablet at bedtime 90 tablet 3 No facility-administered medications prior to visit. REVIEW OF SYSTEMS Double Vision - Dizziness - Sleepiness - Blurred Vision - Unsteadiness - Shaky hands - Upset Stomach - Weight Gain - Headaches - Nervousness - Depression - Memory problems - Disturbed Sleep - Difficulty Concentrating - Rashes - Hair loss - Tiredness - Constipation - Row Labels 07/04/2021 8:20 AM ANDRIA 7 Anxiety Screen Section Header. No data exists in this row. Feeling nervous, anxious or on edge More than half the days Not being able to stop or control worrying More than half the days Worrying too much about different things More than half the days Trouble relaxing Several days Being so restless that it is hard to sit still Several days Becoming easily annoyed or irritable More than half the days Feeling afraid as if something awful might happen Not at all ANDRIA-7 Total Score 10 If you checked off any problems, how difficult have these problems made it for you to do your work, take care of things at home, or get along with other people? Not difficult at all No data to display PHYSICAL EXAM Vitals: 11/08/22 1621 BP: 116/71 Pulse: 97 Temp: 99.1 degrees F (37.3 degrees C) TempSrc: Infrared Weight: 87.7 kg (193 lb 6.4 oz) Height: 1.6 m (5' 3 ) There is no height or weight on file to calculate BMI. General: alert, anxious, no distress, appears stated age Mental status: alert; oriented; easily distractible at times Speech/language: fluent; comprehension intact CRANIAL NERVES EOMI, no nystagmus Facial movement intact and symmetrical Hearing intact to voice Motor: Normal bulk and tone. No pronator drift. Tremor: none noted Gait: Normal stride length, arm swing, and base width. PERTINENT LABS, NEURODIAGNOSTIC STUDIES, NEUROIMAGING, AND NEUROPSYCHOLOGY TESTING LABS: Lab Results Component Value Date VALPROICACID 66.19 10/28/2019 Lab Results Component Value Date WBC 7.38 12/29/2020 HGB 13.6 12/29/2020 HCT 42.4 12/29/2020 MCV 95.3 12/29/2020 MPV 12.0 12/29/2020 PLATELET 249 12/29/2020 Lab Results Component Value Date SODIUM 142 12/29/2020 POTASSIUM 4.1 12/29/2020 CHLORIDE 104 12/29/2020 CO2 28 12/29/2020 BUN 15 12/29/2020 CREATSERUM 0.63 12/29/2020 GLUCOSE 159 (H) 12/29/2020 CALCIUM 9.6 12/29/2020 TP 7.1 12/29/2020 ALBUMIN 4.4 12/29/2020 BILITOTAL 0.2 12/29/2020 BILIDIRECT 0.1 12/29/2020 ALKPHOS 39 12/29/2020 ALT 17 12/29/2020 AST 15 12/29/2020 No results found for: TSH , VITB6 , THIAMNRBC , B12 Neurodiagnostics: Neuroimaging: Neuropsychology Testing: Battery Color GREEN 15-25 % Normal Parameter Current Adjustments Output Current (mA) 1.875 2 Signal Frequency (Hz) 20 Pulse Width (mSec) 250 On time (Sec) 30 Off Time (Min) 1.1 AutoStim Parameter Current Adjustments Output Current (mA) 2.25 2.25 Pulse Width (mSec) 250 On time (Sec) 30 Magnet Settings Parameter Current Adjustments Output Current (mA) 2.25 2.5 Pulse Width (mSec) 500 On time (Sec) 14 Tachycardia Current Adjustments Tachycardia Detection enabled HB detection sensitivity 3 Threshold for AutoStim 40 System Diagnostic Patient ID AW Model ID Vandana Serial # [id number] Implanted 03/27/2018 Communication OK Output Current Status OK Current Delivered 1.875 Lead Impedance OK Impedance Value 2903 IFI NO Average # of Inhibited Auto stimulations Daily Avg. Stim % Per Day %Therapy Normal 843.56 AutoStim 26.89 Magnet 0.04 Total 870.50 During this visit, I interrogated the device and performed a device diagnostics. There was no indication of system malfunctioning or near end of service. The communication, output status, and lead status were functioning appropriately. I explained signs and symptoms associated with device malfunctioning and counseled accordingly. The time of device assessment was less then thirty minutes. The total face to face time was in addition to VNS procedures. We discussed signs and symptoms associated with battery depletion including sporadic stimulation, neck/facial discomfort and a lack of sensation with magnet use and patient was instructed to call our clinic [facility] should these s/s occur. Billing: VNS: VNS Simple Reprogramming (1-3 changes) CPT code 48510 Assessment and Plan Assessment: Rowena is a pleasant 32 y.o. right handed female with The encounter diagnosis was Jeavons syndrome. who has had an improvement in seizures since the increase in lamotrigine and VNS changes since her last office visit. She also tolerated her VNS changes today. Plan: 1. Jeavons syndrome - continued increased lamotrigine 250 mg daily and check lamotrigine level next week. May need to consider optimizing lamotrigine further. No changes to clobazam. - tolerated VNS changes today (increase to normal, autostim, and magnet output), recommended that she swipe the magnet twice daily to acclimate to settings - she is scheduled to see Dr Verma in December - We discussed factors that lower seizure threshold including non-adherence, extreme temperature changes, sleep deprivation, acute illness, decongestants, stress, fatigue and others. Missing doses of your seizure meds can cause breakthrough seizures. - Reviewed seizure action plan, they will use the following: lorazepam (Ativan) oral - We discussed driving restrictions and she is restricted. She is aware of the need to be seizure free for six months prior to driving if she experiences a breakthrough seizure with loss of consciousness or impaired awareness. She was informed of the risk of injury and associated with driving with uncontrolled seizures. She verbalized an understanding. - We reviewed the following safety issues: occupation/work related injuries including not to work in close proximity of machines with moving parts, not to work in high places, bathing/swimming, falls/injury prevention, and risk for skin rolle. We reviewed seizure first aid, seizure rescue medications and when to call . We discussed seizure first aid: Generally speaking, emergency staff should be notified for seizure activity lasting longer than 5 minutes. 2. S/P placement of VNS (vagus nerve stimulation) device - battery is getting low (18-25%) refer for replacement - scheduled to see Dr Verma for consultation and then replacement 3. Anxiety disorder, unspecified type - continue counseling - continue sertraline, we discussed possibly increasing this but for now would like to wait Encouraged use of Fivetran to send messages to provider as needed for questions and concerns or can call our clinic @ [phone]. She will return in 2 months or sooner if clinically indicated. Signed, Riana Chinchilla MSN, UNLOADING CHECKER-ACCOUNTING TEACHER [facility] Department of Neurology - Epilepsy Division [address] [place] [address] - 7th floor [place] [phone] Pager: [phone] I spent a total of 46 minutes on the date of the service which included preparing to see the patient, [id number] patient care, completing clinical documentation, performing a medically appropriate examination and counseling and educating the patient/family/caregiver. Note to patient: The Century Cures Act makes medical notes like these available to patients in the interest of transparency. However, be advised this is a medical document. It is intended as nvmr-bf-rehy communication. It is written in medical language and may contain abbreviations or verbiage that are unfamiliar. It may appear blunt or direct. Medical documents are intended to carry relevant information, facts as evident, and the clinical opinion of the practitioner. documented in this encounter [facility] 11-08-2022 Instructions JETHRO Juan - 11/08/2022 4:20 PM EDT Battery Color GREEN 15-25 % Normal Parameter Current Adjustments Output Current (mA) 1.875 2 Signal Frequency (Hz) 20 Pulse Width (mSec) 250 On time (Sec) 30 Off Time (Min) 1.1 AutoStim Parameter Current Adjustments Output Current (mA) 2.25 2.25 Pulse Width (mSec) 250 On time (Sec) 30 Magnet Settings Parameter Current Adjustments Output Current (mA) 2.25 2.5 Pulse Width (mSec) 500 On time (Sec) 60 14 Tachycardia Current Adjustments Tachycardia Detection enabled HB detection sensitivity 3 Threshold for AutoStim 40 System Diagnostic Patient ID AW Model ID SenTiva Serial # [id number] Implanted 03/27/2018 Communication OK Output Current Status OK Current Delivered 1.75 Lead Impedance OK Impedance Value 2903 IFI NO Average # of Inhibited Auto stimulations Daily Avg. Stim % Per Day %Therapy Normal 843.56 AutoStim 26.89 Magnet 0.04 Total 870.50 documented in this encounter [facility] 07-04-2021 Instructions JETHRO Juan - 07/04/2021 9:06 AM EDT Drug name: Depakote ER Pill strength: 250 mg Drug name: Vimpat Pill strength: 100 mg Week 1 Start: 1 tablet in the evening 1/2 tab in the morning, 1/2 tab in the evening Week 2 Start: STOP 1 tablet twice daily and continue Follow up in 4-6 weeks with Riana documented in this encounter [facility] 07-04-2021 History of Presen t illness Narrative Images from the original note were not included. Rowena Byers was seen in the [facility] at [facility] on 07/04/2021. She is here today for a follow-up accompanied by her becka Vasquez. She was last seen on 12/29/[address] Cori Dennis DO. Interval History Rowena is a 30 y.o.female who has experienced eye myoclonus seizures since her last office visit. She has decrease her Depakote from 750 mg to 250 mg daily since the last visit. She is worried about weaning the last 250 mg without a plan. She is planning to try for starting in the fall. She is taking PNV and FA daily. In mid April she started MAD - dirty keto which she enjoys. History of Present Illness Per Dr Dennis 12/29/2020: History of Present Illness: As you may know, Ms. Byers started having seizures at the age of 9. Her seizures eventually resolved and she weaned off of her medications at the age of 17. After puberty, her seizures returned and she has been on ASMs since this time. 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 There is no clear loss of awareness. She has had 5 clusters of seizures in her lifetime with loss of awareness (semiology of this is unclear generalized clonic seizure vs myoclonic seizures?). This last occurred in 02/2017 when she was without her medications for 5 days. In terms of her work-up, the patient has had an EEG in 2007 that showed generalized polyspike and wave discharges with extreme photosensitivity. Of note, the patient had a VNS that was placed in 2011 She was last seen by Dr. Montgomery who weaned her off of Banzel. Interval History: Since being off of the Banzel, she has not noticed a change in seizure frequency. She continues to have 20-100 seizures a day described as dialeptic seizures with eyelid myoclonia. She has ~3 bad days a week due to stress and anxiety which will cause her to have more frequent seizures (towards a 100 seizures a day). This is a big improvement for her as she was having 1000 seizures a day prior to the addition of Onfi. She is compliant on her Depakote and Onfi and has no clear side effects. She does wish to get off of Depakote now to have a safe in the future. She will use medical marijuana ~1 time per week and feels that this helps when her seizures have increased in freqeuncy. 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 This has greatly reduced her seizure frequency. She is currently sexually active an is using Nexplanon. Childbearing Age Woman with Epilepsy: Patient on OCP in Conjunction with an Enzyme Inducing Anti-epileptic Drug (ie Phenobarbital, Primidone, Phenytoin, Carbamazepine, Oxcarbazepine): no Patient on OCP in Conjunction with Lamictal: no Patient on OCP in Conjunction with Topamax (of at least 200 mg daily): no Patient taking supplemental Folate: Yes, FA 1 mg Anti-epileptic Medications: Current Anti-epileptic Medications Depakote 750 mg ER daily Onfi 20 mg daily Previous Anti-epileptic Medications Banzel LEV, LTG, ZNS, VPA, ETX, Epidiolex (diarrhea) Past Medical/Surgical History Past Medical History: Diagnosis Date Anxiety on Lexapro Hematuria from childhood Past Surgical History: Procedure Laterality Date INSERTION NEUROSTIMULATOR ELECTRODE & GENERATOR CRANIAL NERVE (EG VAGUS) INCISIONAL last 2018 Social History Socioeconomic History Marital status: Single Spouse name: Not on file Number of children: Not on file Years of education: Not on file Highest education level: Bachelor's degree (e.g., BA, AB, BS) Occupational History 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: [employer] Tobacco Use Smoking status: Never Smoker Smokeless tobacco: Never Used Vaping Use Vaping Use: Never used Substance and Sexual Activity Alcohol use: Yes Comment: rare wine Drug use: Never Sexual activity: Yes Partners: Male Other Topics Concern Not on file Social History Narrative Not on file Social Determinants of Health Financial Resource Strain: Not on file Food Insecurity: Not on file Transportation Needs: Not on file Physical Activity: Not on file Stress: Not on file Social Connections: Not on file Intimate Partner Violence: Not on file Housing Stability: Not on file Medications Allergies Allergen Reactions Seasonal Current Outpatient Medications Medication Sig Dispense Refill cloBAZam 20 MG tablet Take 1 tablet by mouth Daily (with dinner). 30 tablet 5 divalproex 250 MG tablet ER Take 1 tablet by mouth at bedtime. 30 tablet 5 escitalopram 20 MG tablet Take 1 tablet by mouth Daily (with dinner). 30 tablet 11 folic acid 1 MG tablet Take 1 tablet by mouth Daily (with dinner). 30 tablet 11 loratadine 10 MG tablet Take by mouth Daily (with dinner). Midazolam (Nayzilam) 5 MG/0.1ML Solution 5 mg by Nasal route as needed. For seizure clusters longer than 5 minutes. May repeat in 10 minutes. Do not exceed 10 mg in 24 hours. 2 Each 0 midazolam HCl 50 MG/10ML Solution 10 mg by Nasal route. lacosamide (Vimpat) 100 MG tablet W1: 1/2 tab twice daily W2 and on: 1 tab twice daily 60 tablet 5 No current facility-administered medications for this visit. ROS Fever - Shortness of Breath - Sexual Problems - Weight Loss/Gain - Exertional Dyspnea - Tender Muscles - Double Vision - Difficulty Chewing - Persistent Rashes - Dizziness - Difficulty Swallowing - Feeling Depressed - Tinnitus - Loss of Bladder - Changes to Hair/Nails - Decreased Hearing - Loss of Bowel - Easy bruising/bleeding - Lightheadedness - Constipation - Back Pain - Neurological Disorders Depression Inventory for Epilepsy (NDDI-E) Everything is a struggle: Never Nothing I do is right: Never Feel guilty: Rarely I'd be better off : Never Frustrated: Sometimes Difficulty finding pleasure: Rarely Total NDDI-E Score: 10 ANDRIA 7 Anxiety Screen 07/04/2021 Feeling nervous, anxious or on edge More than half the days Not being able to stop or control worrying More than half the days Worrying too much about different things More than half the days Trouble relaxing Several days Being so restless that it is hard to sit still Several days Becoming easily annoyed or irritable More than half the days Feeling afraid as if something awful might happen Not at all ANDRIA-7 Total Score 10 If you checked off any problems, how difficult have these problems made it for you to do your work, take care of things at home, or get along with other people? Not difficult at all No flowsheet data found. Physical Exam Vitals: 07/04/21 0938 BP: 119/70 Pulse: 73 Temp: 98.7 degrees F (37.1 degrees C) TempSrc: Infrared Weight: 94.3 kg (207 lb 12.8 oz) Height: 1.613 m (5' 3.5 ) Body mass index is 36.23 kg/m . General: alert, cooperative, anxious, no distress, appears stated age Mental status: alert; oriented to person, place, year, and month; good attention Speech/language: fluent; comprehension intact CRANIAL NERVES CN II-XII: grossly intact Reflexes: not tested Sensation: not tested Gait: Normal stride length, arm swing, and base width. Neurodiagnostic and Imaging LABS: Lab Results Component Value Date VALPROICACID 66.19 10/28/2019 Lab Results Component Value Date WBC 7.38 12/29/2020 HGB 13.6 12/29/2020 MCV 95.3 12/29/2020 HCT 42.4 12/29/2020 PLATELET 249 12/29/2020 Lab Results Component Value Date SODIUM 142 12/29/2020 POTASSIUM 4.1 12/29/2020 CHLORIDE 104 12/29/2020 CO2 28 12/29/2020 BUN 15 12/29/2020 CREATSERUM 0.63 12/29/2020 GLUCOSE 159 (H) 12/29/2020 CALCIUM 9.6 12/29/2020 Lab Results Component Value Date TP 7.1 12/29/2020 ALBUMIN 4.4 12/29/2020 BILITOTAL 0.2 12/29/2020 BILIDIRECT 0.1 12/29/2020 ALKPHOS 39 12/29/2020 ALT 17 12/29/2020 AST 15 12/29/2020 Assessment and Plan Assessment/Plan: Rowena is a 30 y.o. 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 1. Generalized nonconvulsive epilepsy - we will start Vimpat at 50 mg BID and then increase to 100 mg BID after 1 week with Depakote stopping after 1st week. - lacosamide (Vimpat) 100 MG tablet; W1: 1/2 tab twice daily W2 and on: 1 tab twice daily Dispense: 60 tablet; Refill: 5 - She will continue with a PNV. Newer studies have shown that additional FA is not beneficial but this decision was left to her. I did instruct her that taking more than 5 mg of FA could result in psychomotor delay in the . - We talked extensively about getting while on Vimpat and with the diagnosis of epilepsy. Generally speaking, the average population has a risk of about 2% of having a baby with a major congenital malformation. - The best predictor of seizure freedom during is seizure freedom prior to . Women who are seizure free in the 9 months prior to have an 84-92% chance of remaining seizure free during the on their current regimen. - She is aware that she should tell me the moment that she is trying to conceive so we can get updated lacosamide levels (for our target dose) and once she is , we will need to monitor these levels on a monthly basis. - The risk of teratogenicity associated with these anti-epileptic medications were discussed with the patient. She has accepted these terms and is willing to start the medication. The patient was instructed that she should set up an appointment with the epilepsy department if she plans to get so we can optimize her medications prior to conception. She is on 1 mg folic acid - We discussed factors that lower seizure threshold including non-adherence, extreme temperature changes, sleep deprivation, acute illness, decongestants, stress, fatigue and others. Missing doses of your seizure meds can cause breakthrough seizures. Encouraged use of [employer] to send messages to provider as needed for questions and concerns or can call our clinic @ [phone]. She will return in 6 weeks and 3 months with me and [address] Dennis or sooner if clinically indicated. Signed, Riana Chinchilla MSN, UNLOADING CHECKER-ACCOUNTING TEACHER [facility] Department of Neurology - Epilepsy Division [address] [place] [address] - 7th floor [place] [phone] Pager: [phone] Time to complete visit: I spent approximately 38 minutes reviewing the chart prior to the appointment, in face to face counseling with the patient, and with documentation after the visit. documented in this encounter [facility] Evaluation note Diagnosis Generalized nonconvulsive epilepsy- Primary Generalized nonconvulsive epilepsy without mention of intractable epilepsy [facility] Diagnosis Jeavons syndrome- Primary [facility] Diagnosis Jeavons syndrome- Primary [facility] Diagnosis Jeavons syndrome Jeavons syndrome [facility] Diagnosis Preop exam for internal medicine- Primary Other specified pre-operative examination 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 Other postprocedural status Jeavons syndrome [facility] Consultation (Routine) - New Request Specialty Diagnoses / Procedures Referred By Rainer ramos Referred To Contact Neurologic Surgery Diagnoses Jeavons syndrome Evy Verma MD [address] [place] [address] Referral ID Status Reason Start Date Expiration Date V isits Requested Visits Authorized [id number] New Request 12/10/2022 01/04/2024 1 1 [facility] Summary Purpose Family History No Family History Records FoundNo Family History Records FoundNo Family History Records FoundNo Family History Records FoundNo Family History Records FoundNo Family History Records Found Advance Directives No Advanced Directives Records FoundNo Advanced Directives Records FoundNo Advanced Directives Records FoundNo Advanced Directives Records FoundNo Advanced Directives Records FoundNo Advanced Directives Records Found Reason for Referral Specialty Diagnoses / Procedures Referred By Contac t Referred To Contact Diagnoses Generalized nonconvulsive epilepsy Riana Chinchilla, UNLOADING CHECKER-ACCOUNTING TEACHER [address] [place] [address] Referral ID Status Reason Start Date Expiration Date V isits Requested Visits Authorized [id number] Pending Review 1 1 Specialty Diagnoses / Procedures Referred By Contac t Referred To Contact Procedures DVT/VTE RISK ASSESSMENT Evy Verma MD [address] [place] [phone] Referral ID Status Reason Start Date Expiration Date V isits Requested Visits Authorized [id number] New Request 01/15/2023 02/09/2024 1 1 Additional Source Comments INFORMATION SOURCE (unrecogn ized section and content) DATE CREATED AUTHOR 09/03/2017 [facility] DATE CREATED AUTHOR AUTHOR'S ORGANIZ ATION [facility] DATE CREATED AUTHOR AUTHOR'S ORGANIZ ATION 07/02/2018 [facility] DATE CREATED AUTHOR AUTHOR'S ORGANIZ ATION 10/02/2019 [facility] DATE CREATED AUTHOR AUTHOR'S ORGANIZ ATION 06/01/2022 [facility] DATE CREATED AUTHOR AUTHOR'S ORGANIZ ATION 02/17/2023 [facility] Reason for Visit (unrecogniz ed section and content) Reason Comments Follow-up Reason Comments Follow-up Reason Comments New Patient 32 y.o female here f or consult. Specialty Diagnoses / Procedures Referred By Contac t Referred To Contact Neurologic Surgery Diagnoses Jeavons syndrome S/P placement of VNS (vagus nerve stimulation) device Riana Chinchilla, UNLOADING CHECKER-ACCOUNTING TEACHER [address] [place] [phone] Referral ID Status Reason Start Date Expiration Date V isits Requested Visits Authorized [id number] New Request 09/19/2022 10/14/2023 1 1 Reason Comments Preoperative Assessment Specialty Diagnoses / Procedures Referred By Contharjinder t Referred To Contact Neurologic Surgery Diagnoses Jeavons syndrome Evy Verma MD [address] [place] [phone] Referral ID Status Reason Start Date Expiration Date V isits Requested Visits Authorized [id number] New Request 12/10/2022 01/04/2024 1 1 Specialty Diagnoses / Procedures Referred By Contac t 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] Procedures [place] IMP STIM,CRANIAL,SUBQ,1 ARRAY INSERTION REPLACEMENT NEUROSTIMULATOR GENERATOR CRANIAL/INTRACRANIAL Evy Verma MD [address] [place] [phone] [facility] [address] [place] [address] Referral ID Status Reason Start Date Expiration Date Visits Re quested Visits Authorized [id number] 1 1 Care Teams (unrecognized sec tion and content) Plumber'S Helper Relationship Specialty Start Date End Date Tim Rolon DO [address] [place] [address] PCP - General Internal Medicine 09/19/22 Riana Chinchilla, UNLOADING CHECKER-ACCOUNTING TEACHER [address] [place] [phone] Certified Nurse Practitioner 11/08/22 [employer] Hel[employer] Relationship Specialty Start Date End Date Tim Rolon DO [address] [place] [address] PCP - General Internal Medicine 09/19/22 Riana Chinchilla, UNLOADING CHECKER-ACCOUNTING TEACHER [address] [place] [phone] Certified Nurse Practitioner 11/08/22 Plumber'S Helper Relationship Specialty Start Date End Date Tim Rolon DO [address] [place] [phone] PCP - General Internal Medicine 09/19/22 Riana Chinchilla, UNLOADING CHECKER-ACCOUNTING TEACHER [address] [place], [place] [phone] Certified Nurse Practitioner 11/08/22 Plumber'S Helper Relationship Specialty Start Date End Date Tim Rolon DO [facility] [place] [address] PCP - General Internal Medicine 09/19/22 Riana Chinchilla, UNLOADING CHECKER-ACCOUNTING TEACHER [address] [place], [place] [phone] Certified Nurse Practitioner 11/08/22 Plumber'S Helper Relationship Specialty Start Date End Date Tim Rolon DO [address] [place] [address] PCP - General Internal Medicine 09/19/22 Riana Chinchilla, UNLOADING CHECKER-ACCOUNTING TEACHER [address] [place] [phone] Certified Nurse Practitioner 11/08/22 Scheduled Active and Recently Administ ered Medications (unrecognized section and content) Medication Order 01/13/2023 01/14/2023 01/15/2023 povidone-iodine (3M SKIN and NASAL ANTISEPTIC) 5 % topical solution 1 Application (COMPLETED) 1 Application, Nasal, 60 MIN PRE-OP, 1 dose, On Fri01/15/23 at 0800, (1) Use a tissue to clean the inside of both nostrils including the inside tip of the nostril. (2) Tilting the bottle slightly, dip one swab into solution and stir vigorously for 10 seconds. Withdraw the swab slowly to avoid wiping solution off during removal. (3) Insert swab comfortably into one nostril and rotate for 15 seconds covering all surfaces. Then focus on the inside tip of nostril and rotate for an additional 15 seconds. (4) Using a new swab, repeat steps 2 & 3 with the other nostril. (5) Repeat the application in both nostrils using a fresh swab each time. (6) Do not blow nose. If solution drips out of nose, it can be lightly dabbed with a tissue., Pre-op/Pre-Proc 0846 (Given - Provid er: Jeevan Donovan RN) Continuous Medication Order 01/13/2023 01/14/2023 01/15/2023 Sodium chloride 0.9% IV solution Intravenous, at 75 mL/hr, CONTINUOUS, Starting on Fri01/15/23 at 1315, Until Fri01/15/23 at 1627, Post-op/Post-Proc 1315 (Canceled Entry - Provider: System Discharge - Comment: Automatically canceled at discontinue of medication order) PRN Medication Order 01/13/2023 01/14/2023 01/15/2023 Acetaminophen (TYLENOL) tablet 650 mg 650 mg, Oral, EVERY 4 HOURS NEEDED, Starting on Fri01/15/23 at 1306, Until Fri01/15/23 at 1627, Mild Pain, Maximum dose of acetaminophen is 4000 mg from all sources in 24 hours., Post-op/Post-Proc 1333 (Given - Provid er: May Ware RN) BUPivacaine (MARCAINE) injection (CANCELED) NEEDED, Starting on Fri01/15/23 at 1010, Until Fri01/15/23 at 1104, Intra-op/Intra-Proc 1010 (Given - Provid er: Evy Verma MD - Comment: mixed 1:1 w/Lido with epi [id number]) ceFAZolin (ANCEF) 2 g in dextrose 100 mL premix IVPB (COMPLETED) 2 g, Intravenous, Administer over 30 Minutes, CUT OFF SAW SET UP OPERATOR TO PROCEDURE, 1 dose, Starting on Fri01/15/23 at 0758, Until Discontinued, Other, Surgical Prophylaxis, Initiate antibiotic administration 30-60 minutes prior to surgical incision and complete administration prior to surgical incision., Pre-op/Pre-Proc 0955 (Given - Provid er: Geraldo Marion, UNLOADING CHECKER-MILKER MACHINE) lidocaine-epinephrine 2 %-1:[id number] injection (CANCELED) NEEDED, Starting on Fri01/15/23 at 1017, Until Fri01/15/23 at 1104, Intra-op/Intra-Proc 1017 (Given - Provid er: Evy Verma MD - Comment: mixed 1:1 w/ 0.25% bupivicaine) Ondansetron (ZOFRAN) tablet 4 mg(Linked Group 1) 4 mg, Oral, EVERY 6 HOURS NEEDED, Starting on Fri01/15/23 at 1306, Until Fri01/15/23 at 1627, Nausea / Vomiting, Post-op/Post-Proc Ondansetron 4mg/2ml (ZOFRAN) injection 4 mg(Linked Group 1) 4 mg, Intravenous, EVERY 4 HOURS NEEDED, Starting on Fri01/15/23 at 1306, Until Fri01/15/23 at 1627, Nausea / Vomiting, Post-op/Post-Proc oxyCODONE-acetaminophen (PERCOCET) 5-325 MG per tablet 1 tablet(Linked Group 2) 1 tablet, Oral, EVERY 4 HOURS NEEDED, Starting on Fri01/15/23 at 1306, Until Fri01/15/23 at 1627, Moderate Pain, Use as initial dose. Higher dose may be administered if lower dose was previously documented as ineffective and did not result in adverse effects (RR<10, decrease in level of consciousness)., Post-op/Post-Proc oxyCODONE-acetaminophen (PERCOCET) 5-325 MG per tablet 2 tablet(Linked Group 2) 2 tablet, Oral, EVERY 4 HOURS NEEDED, Starting on Fri01/15/23 at 1306, Until Fri01/15/23 at 1627, Moderate Pain, Higher dose may be administered if lower dose was previously documented as ineffective and did not result in adverse effects (RR<10, decrease in level of consciousness). Decrease back to lower dose if patient has adverse effects, or no PRN used in previous 12 hours., Post-op/Post-Proc tissusol irrigation solution (CANCELED) NEEDED, Starting on Fri01/15/23 at 1034, Until Fri01/15/23 at 1104, Intra-op/Intra-Proc 1034 (Given - Provid er: Evy Verma MD) Vancomycin (VANCOCIN) injection (CANCELED) NEEDED, Starting on Fri01/15/23 at 1033, Until Fri01/15/23 at 1104, Intra-op/Intra-Proc 1033 (Given - Provid er: Evy Verma MD) Vancomycin HCl in NaCl (VANCOCIN) 1,000 mg in 200 ml NS premix IVPB (COMPLETED) 1,000 mg (rounded from 1,006.5 mg = 15 mg/kg 67.1 kg Order-specific weight), Intravenous, Administer over 1 Hours, CUT OFF SAW SET UP OPERATOR TO PROCEDURE, 1 dose, Starting on Fri01/15/23 at 0000, Until Discontinued, Other, Surgical Prophylaxis, Infusion must complete prior to surgical incision. Initiate antibiotic administration 60-120 minutes prior to surgical incision (depending on Administer Over Time). Extravasation Risk, Pre-op/Pre-Proc 0912 ($$New Bag$$ - Provider: Jeevan Donovan RN) Linked Groups Order Group 1: Ondansetron 4mg/2ml (ZOFRAN) injection 4 mgJump to med 4 mg, Intravenous, EVERY 4 HOURS NEEDED, Starting on Fri01/15/23 at 1306, Until Fri01/15/23 at 1627, Nausea / Vomiting, Post-op/Post-Proc Or Ondansetron (ZOFRAN) tablet 4 mgJump to med 4 mg, Oral, EVERY 6 HOURS NEEDED, Starting on Fri01/15/23 at 1306, Until Fri01/15/23 at 1627, Nausea / Vomiting, Post-op/Post-Proc Group 2: oxyCODONE-acetaminophen (PERCOCET) 5-325 MG per tablet 1 tabletJump to med 1 tablet, Oral, EVERY 4 HOURS NEEDED, Starting on Fri01/15/23 at 1306, Until Fri01/15/23 at 1627, Moderate Pain
Use as initial dose. Higher dose may be administered if lower dose was previously documented as ineffective and did not result in adverse effects (RR<10, decrease in level of consciousness).
Post-op/Post-Proc Or oxyCODONE-acetaminophen (PERCOCET) 5-325 MG per tablet 2 tabletJump to med 2 tablet, Oral, EVERY 4 HOURS NEEDED, Starting on Fri01/15/23 at 1306, Until Fri01/15/23 at 1627, Moderate Pain
Higher dose may be administered if lower dose was previously documented as ineffective and did not result in adverse effects (RR<10, decrease in level of consciousness). Decrease back to lower dose if patient has adverse effects, or no PRN used in previous 12 hours.
Post-op/Post-Proc FOR RECORDS PERTAINING TO PATIENTS WHO ARE OR HAVE BEEN ENROLLED IN A CHEMICAL DEPENDENCY/SUBSTANCEABUSE PROGRAM, SOME INFORMATION MAY BE OMITTED. This clinical summary was aggregated from multiple sources. Caution should be exercised in using it in the provision of clinical care. This summary normalizes information from multiple sources, and as a consequence, information in this document may materially change the coding, format and clinical context of patient data. In addition, data may be omitted in some cases. CLINICAL DECISIONS SHOULD BE BASED ON THE PRIMARY CLINICAL RECORDS. [facility]. provides no warranty or guarantee of the accuracy or completeness of information in this document.
[2023-03-12 08:10] LABS: Progesterone 29.2 ng/mL (.)
== END 2023-03-09 09:16 | disposition home or self-care (01) ==
LOC: LAB 09:19
PROVIDERS: Visit Provider Obstetrics & Gynecology
DX: E28.2 Polycystic ovarian syndrome (principal); N92.6 Irregular menstruation, unspecified
CPT/HCPCS: 36415; 84144

== ENCOUNTER 2023-04-09 11:24 | Outpatient (OUT) | payer OTHER, SELFPAY ==
--- OUTSIDE RECORDS SUMMARY | 2023-04-09 11:27 | XMS_ITS | CCD ---
Author Name Unknown Address [address] [place] [address] Organization [facility] Care Team Providers Care Housing Management Officer Name Role Phone JAMIL SMITH Referring Unavailable [...] Tim Rolon DO Primary Care Provider Raoul DIRECTOR OF REHABILITATION-COUNTY OR CITY AUDITOR, Crystal G Unavailable EVY VERMA Referring Unavailable BALL, TIM Primary Care Unavailable VERMA, EVY C Attending Unavailable VERMA, EVY C Attending Unavailable BALL, TIM Primary Care Unavailable VERMA, EVY C Referring Unavailable BALL, TIM Referring Unavailable BALL, TIM Primary Care Unavailable RAOUL, CRYSTAL G Attending Unavailable INOCENTEBJ CANDELARIOITA Attending Unavailable SELF, SELF Referring Unavailable RAOUL, [...] Allergy Type Date of Onset Reaction(s) Facility (7 sources) Seasonal allergy Propensity to adverse reactions to drug 7 Runny Nose, Congestion [facility] Work Phone: Medications Current Medications Medication Drug Class(es) Dates Sig (Normalized) Sig (Original) 8 hr acetaminophen 650 mg extended release oral tablet (3 sources) Start: 01-15-2023 take 1 tablet by mouth every six hours as needed acetaminophen 650 MG Tab CR Take 1 tablet by mouth every 6 hours as needed for Mild Pain. 0 01/15/2023 Active Start: 01-15-2023 End: 01-15-2023 take 1 tablet by mouth every four hours as needed Acetaminophen (TYLENOL) tablet 650 mg cloBAZam 20 mg oral tablet (7 sources) Benzodiazepine Start: 10-17-2022 End: 04-19-2023 take [...] Active folic acid 1 mg oral tablet (7 sources) Start: 04-19-2022 take 1 tablet by [...] lamoTRIgine 300 mg extended release oral tablet (6 sources) Mood Stabilizer, Anti-epileptic Agent Start: 02-12-2023 take 1 tablet by mouth once daily at bedtime LamoTRIgine 300 MG Tab SR 24 HR Indications: Jeavons syndrome TAKE 1 TABLET BY MOUTH EVERYDAY AT BEDTIME 90 tablet 1 02/12/2023 Active Start: 11-26-2022 take 1 tablet by josh th every twenty-four hours at bedtime LamoTRIgine 300 [...] 10/21/2022 Active letrozole 2.5 mg oral tablet (4 sources) Aromatase Inhibitor Start: 11-19-2022 take 1 tablet by mouth at bedtime Femara 2.5 MG tablet Take 1 tablet by mouth at bedtime. 0 11/19/2022 Active loratadine 10 mg oral tablet (7 sources) loratadine 10 MG tablet Take 1 tablet by mouth as needed. 0 Active LORazepam 0.5 mg oral tablet (6 sources) Benzodiazepine Start: 03-22-2022 End: 03-22-2023 LORazepam 0.5 MG tablet Indications: Anxiety disorder, unspecified type 1 tab up to three times a week as needed for anxiety 10 tablet 1 03/22/2022 03/22/2023 Active medroxyPROGESTERone acetate 10 mg oral tablet (3 sources) Progestin medroxyPROGESTER one 10 MG tablet Take 1 tablet by mouth as needed. Takes for 14 days each time needed 0 Active metFORMIN hydrochloride 500 mg oral tablet (4 sources) Biguanide take 1 tablet by mouth at bedtime metFORMIN 500 MG tablet Take 1 tablet by mouth at bedtime. 0 Active midazolam 50 mg/ml nasal spray (8 sources) Benzodiazepine Start: 10-02-2020 Midazolam (Nayzilam) 5 MG/0.1ML Solution Indications: Seizure disorder 5 mg by Nasal route as needed. For seizure clusters longer than 5 minutes. May repeat in 10 minutes. Do not exceed 10 mg in 24 hours. 2 Each 0 10/02/2020 Active Start: 02-18-2019 midazolam HCl 50 MG/10ML Solution 10 mg by Nasal route. 0 02/18/2019 Active Prenat MV-Min w/Uw-Ojpixa-WOV ( COMPLETE PO) (4 sources) take 1 tablet by mouth once at bedtime Prenat MV-Min w/Ki-Qnrgst-ZMC ( COMPLETE PO) Take 1 tablet by mouth at bedtime. 0 Active sertraline 100 mg oral tablet (6 sources) Serotonin Reuptake Inhibitor Start: 04-19-19 23 Sertraline 100 MG tablet Indications: Anxiety disorder, unspecified type 1 tablet at bedtime 90 tablet 3 04/19/2022 Active 24 hr divalproex sodium 250 mg extended release oral tablet (2 sources) Mood Stabilizer, Anti-epileptic Agent Start: 04-30-19 22 take 1 tablet by mouth at bedtime [...] by mouth every four hours as needed oxyCODONE-acetamino phen (PERCOCET) 5-325 MG per tablet 1 tablet etonogestrel 68 mg drug implant (1 source) Progestin End: 07-04-2021 Etonogestrel 68 MG SC implant Inject 68 mg under the skin. 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 0 Active mupirocin 0.02 mg/mg topical ointment (2 sources) RNA Synthetase Inhibitor Antibacterial Start: 01-10-2023 End: 02-14-2023 Mupirocin 2 % ointment Indications: Preop exam for internal medicine , Jeavons syndrome , 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 Please apply to both nostrils twice per day for five days. Please use medication for five days prior to your scheduled surgery date. 22 g 0 01/10/2023 02/14/2023 Discontinued Ondansetron 4mg/2ml (ZOFRAN) injection 4 mg [...] mg/ml injection (1 source) Start: 01-15-2023 End: 01-15-2023 Sodium chloride 0.9% IV solution 200 ml vancomycin 5 mg/ml injection (1 source) Glycopeptide Antibacterial Start: 01-15-2023 End: 01-15-2023 Vancomycin HCl in NaCl (VANCOCIN) 1,000 mg in 200 ml NS premix IVPB Problems Active Problems Problem Classification Problem Date Documented Da te Episodic/Chronic Anxiety disorders (6 sources) Anxiety disorder; Translations: [Anxiety disorder, unspecified] [...] Chronic Other nutritional; endocrine; and metabolic disorders (7 sources) Obese class II; Translations: [Obesity, unspecified] Onset: 10-28-2019 10-28-2019 Chronic Residual codes; unclassified (4 sources) Presence of other specified functional implants; Translations: [Presence of other specified functional implants] Onset: 03-20-2018 Chronic Residual codes; unclassified (9 sources) Past history of procedure; Translations: [Presence of other specified functional implants] Onset: 10-24-2011 10-05-2019 Chronic Past or Other Problems Problem Classification Problem Date Documented Date Episodic/Chronic Fracture of lower limb (19 sources) Closed pilon fracture; Translations: [Displaced pilon fracture of right tibia, initial encounter for closed fracture] Onset: 07-17-2016 10-28-2019 Episodic Genitourinary symptoms and ill-defined conditions (5 sources) Microscopic hematuria; Translations: [Other microscopic hematuria] Onset: 02-21-2011 12-06-2022 Episodic Immunizations and screening for infectious disease (1 source) Encounter for screening for human papillomavirus (HPV); Translations: [ENC SCREENING HUMAN PAPILLOMAVIRUS] Onset: 08-28-2021 Episodic Other aftercare (7 sources) Wound ; Translations: [Encounter for other specified surgical aftercare] Onset: 04-17-2018 10-05-2019 Episodic Other screening for suspected conditions (not mental disorders or infectious disease) (4 sources) Encounter for screening for malignant neoplasm of cervix; Translations: [ENC SCREENING MALIG NEOPLASM CERV] Onset: 08-27-2021 Episodic Residual codes; unclassified (7 sources) Dietary finding; Translations: [Other specified health status] Onset: 08-27-2017 10-05-2019 Episodic Results Test Name Value Interpretation Reference Range Facility BETA HCG, URINE (POC DEVICE) on 01-15-2023 Beta HCG ( test) Ql (U) Negative Negative [facility] Interpretation and review of laboratory results Normal [facility] Test performed at address of the patient encounter. [facility] CARDIAC RHYTHM (SCANNED)on 03-17-2022 [facility] CBC AND ELECTRONIC DIFFon Basophils (Bld) [#/Vol] 0.05 10*3/uL Normal 0.00-0.15 [facility] Comment on above: Performed By: #### L [id number] #### [facility] (DEFAULT) [address] [address] Basophils/100 WBC (Bld) 0.5 % Normal [facility] Comment on above: Performed By: #### L [id number] #### [facility] (DEFAULT) [address] [place] [address] DIFF STATUS Electronic Differential Normal [facility] Comment on above: Performed By: #### L [id number] #### [facility] (DEFAULT) [address] [place] [address] Eosinophils (Bld) [#/Vol] 0.12 10*3/uL Normal 0.00-0.4 2 [facility] Comment on above: Performed By: #### L [id number] #### [facility] (DEFAULT) [address] [place] [address] Eosinophils/100 WBC (Bld) 1.2 % Normal [facility] Comment on above: Performed By: #### L [id number] #### [facility] (DEFAULT) [address] [place] [address] Hematocrit (Bld) [Volume fraction] 42.5 % Normal 34.9-44.3 [facility] Comment on above: Performed By: #### L [id number] #### [facility] (DEFAULT) [address] [place] [address] Hemoglobin (Bld) [Mass/Vol] 14.3 g/dL Normal 11.4-15.2 [facility] Comment on above: Performed By: #### L [id number] #### [facility] (DEFAULT) [address] [address] Immature Grans % 0.3 % Normal [facility] Comment on above: Performed By: #### L [id number] #### [facility] (DEFAULT) [address] [place] [address] Immature Grans Absolute < Normal <=0.08 [facility] Comment on above: Performed By: #### L [id number] #### [facility] (DEFAULT) [address] [place] [address] Lymphocytes (Bld) [#/Vol] 3.42 10*3/uL Normal 1.16-3.5 1 [facility] Comment on above: Performed By: #### L [id number] #### [facility] (DEFAULT) [address] [address] Lymphocytes/100 WBC (Bld) 32.9 % Normal [facility] Comment on above: Performed By: #### L [id number] #### [facility] (DEFAULT) [address] [place] [address] MCV (RBC) [Entitic vol] 92.4 fL Normal 79.6-97.7 [facility] Comment on above: Performed By: #### L [id number] #### [facility] (DEFAULT) [address] [address] Mean Cell Hgb 31.1 pg Normal 25.9-33.9 [facility] Comment on above: Performed By: #### L [id number] #### [facility] (DEFAULT) [address] [address] Mean Cell Hgb Conc 33.6 g/dL Normal 31.4-35.9 [facility] Comment on above: Performed By: #### L [id number] #### [facility] (DEFAULT) [address] [address] Monocytes (Bld) [#/Vol] 0.62 10*3/uL Normal 0.22-0.87 [facility] Comment on above: Performed By: #### L [id number] #### [facility] (DEFAULT) [address] [address] Monocytes/100 WBC (Bld) 6.0 % Normal [facility] Comment on above: Performed By: #### L [id number] #### [facility] (DEFAULT) [address] [address] Nucleated RBC 0.0 /100 WBC Normal <=0.2 [facility] Comment on above: Performed By: #### L [id number] #### [facility] (DEFAULT) [address] [address] Platelet mean volume (Bld) [Entitic vol] 10.8 fL Normal 8.5-12.2 [facility] Comment on above: Performed By: #### L [id number] #### [facility] (DEFAULT) [address] [address] Platelets (Bld) [#/Vol] 326 10*3/uL Normal 150-393 [facility] Comment on above: Performed By: #### L [id number] #### [facility] (DEFAULT) [address] [place] [address] RBC (Bld) [#/Vol] 4.60 10*6/uL Normal 3.91-5.04 [facility] Comment on above: Performed By: #### L [id number] #### [facility] (DEFAULT) [address] [place] [address] RBC Distribution 13.1 % Normal 10.8-14.9 [facility] Comment on above: Performed By: #### L [id number] #### [facility] (DEFAULT) [address] [place] [address] Segs + Bands Auto 59.1 % Normal [facility] Comment on above: Performed By: #### L [id number] #### [facility] (DEFAULT) [address] [place] [address] Segs + Bands,Absolute Auto 6.14 K/uL Normal 1.64-7.28 [facility] Comment on above: Performed By: #### L [id number] #### [facility] (DEFAULT) [address] [place] [address] WBC (Bld) [#/Vol] 10.38 10*3/uL Normal 3.99-11.19 [facility] Comment on above: Performed By: #### L [id number] #### [facility] (DEFAULT) [address] [place] [address] Basophils (Bld) [#/Vol] 0.05 10*3/uL 0.00 - 0.15 K/uL [facility] Basophils/100 WBC (Bld) 0.5 % [facility] Differential cell count method Nom (Bld) Electronic Differential [facility] Eosinophils (Bld) [#/Vol] 0.12 10*3/uL 0. 00 - 0.42 K/uL [facility] Eosinophils/100 WBC (Bld) 1.2 % [facility] Erythrocyte distribution width (RBC) [Ratio] 13.1 % 10.8 - 14.9 % [facility] Hematocrit (Bld) [Volume fraction] 42.5 % 34.9 - 44.3 % [facility] Hemoglobin (Bld) [Mass/Vol] 14.3 g/dL 11.4 - 15.2 g/dL [facility] Immature granulocytes (Bld) [#/Vol] K/uL NINF - 0.08 K/uL [facility] Immature granulocytes/100 WBC (Bld) 0.3 % [facility] Lymphocytes (Bld) [#/Vol] 3.42 10*3/uL 1. 16 - 3.51 K/uL [facility] Lymphocytes/100 WBC (Bld) 32.9 % [facility] MCH (RBC) [Entitic mass] 31.1 pg 25. 9 - 33.9 pg [facility] MCHC (RBC) [Mass/Vol] 33.6 g/dL 31.4 - 35.9 g/dL [facility] MCV (RBC) [Entitic vol] 92.4 fL 79.6 - 97.7 fL [facility] Monocytes (Bld) [#/Vol] 0.62 10*3/uL 0.22 - 0.87 K/uL [facility] Monocytes/100 WBC (Bld) 6.0 % [facility] Neutrophils (Bld) [#/Vol] 6.14 10*3/uL 1. 64 - 7.28 K/uL [facility] Nucleated RBC/100 WBC (Bld) [Ratio] 0.0 % [facility] Platelet mean volume (Bld) [Entitic vol] 10.8 fL 8.5 - 12.2 fL [facility] Platelets (Bld) [#/Vol] 326 10*3/uL 150 - 393 K/uL [facility] RBC (Bld) [#/Vol] 4.60 10*6/uL [facility] Segmented neutrophils/100 WBC (Bld) 59.1 % [facility] WBC (Bld) [#/Vol] 10.38 10*3/uL 3.99 - 11 .19 K/uL [facility] CMPN WITHOUT GLUCOSEon 01-09 Albumin [Mass/Vol] 4.9 g/dL Normal 3.5-5.0 [facility] Comment on above: Performed By: #### C MPNG #### [facility] (DEFAULT) [address] [place] [address] ALP [Catalytic activity/Vol] 35 U/L Normal 32-126 [facility] Comment on above: Performed By: #### C MPNG #### [facility] (DEFAULT) [address] [place] [address] ALT [Catalytic activity/Vol] 19 U/L Normal 9-48 [facility] Comment on above: Performed By: #### C MPNG #### [facility] (DEFAULT) [address] [place] [address] Anion gap [Moles/Vol] 13 mmol/L Normal 7-17 [facility] Comment on above: Performed By: #### C MPNG #### [facility] (DEFAULT) [address] [place] [address] AST [Catalytic activity/Vol] 18 U/L Normal 10-39 [facility] Comment on above: Performed By: #### C MPNG #### [facility] (DEFAULT) [address] [place] [address] Bilirubin [Mass/Vol] 0.3 mg/dL Normal <1.5 [facility] Comment on above: Performed By: #### C MPNG #### [facility] (DEFAULT) [address] [place] [address] Calcium [Mass/Vol] 9.2 mg/dL Normal 8.6-10.5 [facility] Comment on above: Performed By: #### C MPNG #### [facility] (DEFAULT) [address] [place] [address] Chloride [Moles/Vol] 102 mmol/L Normal 98-108 [facility] Comment on above: Performed By: #### C MPNG #### [facility] (DEFAULT) [address] [place] [address] CO2 [Moles/Vol] 26 mmol/L Normal 21-31 [facility] Comment on above: Performed By: #### C MPNG #### [facility] (DEFAULT) [address] [place] [address] Creatinine [Mass/Vol] 0.64 mg/dL Normal 0.50-1.20 [facility] Comment on above: Performed By: #### C MPNG #### [facility] (DEFAULT) [address] [place] [address] eGFR, CKD-EPI, Female > Normal >=60 [facility] Comment on above: Result Comment: Repo rted eGFR is based on the CKD-EPI 2020 equation using creatinine, age, and sex. Performed By: #### C MPNG #### [facility] (DEFAULT) [address] [place] [address] Potassium [Moles/Vol] 4.0 mmol/L Normal 3.5-5.0 [facility] Comment on above: Performed By: #### C MPNG #### [facility] (DEFAULT) [address] [place] [address] Protein [Mass/Vol] 7.9 g/dL Normal 6.4-8.3 [facility] Comment on above: Performed By: #### C MPNG #### [facility] (DEFAULT) [address] [place] [address] Sodium [Moles/Vol] 137 mmol/L Normal 135-145 [facility] Comment on above: Performed By: #### C MPNG #### [facility] (DEFAULT) [address] [place] [address] Urea nitrogen [Mass/Vol] 12 mg/dL Normal 7-25 [facility] Comment on above: Performed By: #### C MPNG #### [facility] (DEFAULT) [address] [address] Urea nitrogen/Creatinine [Mass ratio] 19 mg/mg Normal [facility] Comment on above: Performed By: #### C MPNG #### [facility] (DEFAULT) [address] [address] HCG ( test) Ql (U)O rdered By: Jamil Santos on 01-09-2023 Beta HCG ( test) Ql Negative Negative [facility] Interpretation and review of laboratory results Normal [facility] HCG QUALITATIVE, URINEon Beta HCG ( test) Ql (U) Negative Normal Negative [facility] Comment on above: Performed By: #### U HCG #### [facility] (DEFAULT) [address] [address] LAMOTRIGINE LEVELon 01-10-20 23 Lamotrigine, S 4.3 mcg/mL Normal 3.0-15.0 [facility] Comment on above: Result Comment: ADDITIONAL INFORMATION This test was developed and its performance characteristics determined by [facility] in a manner consistent with CLIA requirements. This test has not been cleared or approved by the U.S. Food and Drug Administration. Test Performed by: [facility] [place] [id number] Tax Commissioner: Juno Vega M.D. Ph.D.; CLIA# [id number] Performed By: #### Y LAMO #### [facility] (DEFAULT) [address] [address] PT,INR,PTTon 01-09-2023 aPTT Coag (Bld) [Time] 31.1 s Normal 24.0-34.3 [facility] Comment on above: Performed By: #### P TPTT #### [facility] (DEFAULT) [address] [place] [address] INR Coag (PPP) [Relative time] 1.0 {INR} Normal 0.9-1.1 [facility] Comment on above: Performed By: #### P TPTT #### [facility] (DEFAULT) [address] [place] [address] PT Coag (PPP) [Time] 13.0 s Normal 11.9-14.2 [facility] Comment on above: Performed By: #### P TPTT #### [facility] (DEFAULT) [address] [place] [address] aPTT Coag (PPP) [Time] 31.1 s [facility] INR Coag (Bld) [Relative time] 1.0 {INR} 0.9 - 1.1 [facility] Interpretation and review of laboratory results Normal [facility] PT Coag (PPP) [Time] 13.0 s [facility] SCREEN: MRSA/MSSAOrdered By: Alexandra Slater on 01-09-2023 Interpretation and review of laboratory results Abnormal [facility] Methicillin Resistant S. Aureus By Pcr Negative Negative [facility] Staphylococcus Aureus By Pcr Positive Abnormal Negative [facility] This test was performed using a [...] by the Clinical Microbiology Laboratory at [facility]. It has not been cleared or approved by the FDA.The laboratory is regulated under CLIA as qualified to perform high-complexity testing. This test is used for clinical purposes. It should not be regarded as investigational or for research. [facility] SCREEN: MRSA/MSSAon 01-10-20 Methicillin Resistant S. Aureus By Pcr Negative Normal Negative [facility] Comment on above: Order Comment: This [...] by the Clinical Microbiology Laboratory at [facility]. It has not been cleared or approved by the FDA.The laboratory is regulated under CLIA as qualified to perform high-complexity testing. This test is used for clinical purposes. It should not be regarded as investigational or for research. Performed By: #### S CRSB #### [facility] (DEFAULT) [address] [address] Staphylococcus Aureus By Pcr Positive Abnormal Negative [facility] Comment on above: Order Comment: This [...] by the Clinical Microbiology Laboratory at [facility]. It has not been cleared or approved by the FDA.The laboratory is regulated under CLIA as qualified to perform high-complexity testing. This test is used for clinical purposes. It should not be regarded as investigational or for research. Performed By: #### S CRSB #### [facility] (DEFAULT) [address] [address] VITAMIN D (25-HYDROXY,TOTAL) on 01-09-2023 25-OH Vitamin D Total 35.2 ng/mL Normal 30.0-100.0 [facility] Comment on above: Order Comment: Vitam in D values have been shown to be falsely decreased in lipemic samples and should be interpreted with caution. Result Comment: <10 Deficiency 10-29 Insufficiency 30-100 Optimal Level >100 Possible Toxicity Performed By: #### D 25OH #### [facility] (DEFAULT) [address] [address] XR Cervical and thoracic and lumbar spine [...] IMPRESSION: Intact vagus nerve stimulator as described. [facility] Radiology Study observation (narrative) [facility] Cervical and thoracic and lumbar spine ViewsOrdered By: Alice Crespo on 01-09-2023 [facility] Work Phone: XR STIMULATOR/INTRATHECAL PU MP [...] Intact vagus nerve stimulator as described. Normal [facility] PROGESTERONEon 05-24-2022 Progesterone 5.5 ng/mL Normal [facility] Comment on above: Result Comment: Foll icular phase 0.1 - 0.9 Luteal phase 1.8 - 23.9 Ovulation phase 0.1 - 12.0 First trimester 11.0 - 44.3 Second trimester 25.4 - 83.3 Third trimester 58.7 - 214.0 Postmenopausal 0.0 - 0.1 Performed By: #### P DANIEL #### [facility] [address] [place] [address] Dr. Nicol Oswald LAMOTRIGINEon 05-02-2022 Lamotrigine, Serum 4.7 ug/mL Normal 2.0-20.0 [facility] Comment on above: Result Comment: Dete ction Limit = 1.0 Performed By: #### P DANIEL #### [facility] [address] [place] [address] Dr. Nicol Oswald CBC AUTO DIFFon 04-30-2022 BASO # 0.0 103/ul Normal 0.0-0.1 [facility] Comment on above: Performed By: #### C BC #### [facility] [address] [place] [address] Dr. Nicol Oswald Basophils/100 WBC (Bld) 0.4 % Normal 0.2-2.0 [facility] Comment on above: Performed By: #### C BC #### [facility] [address] [place] [address] Dr. Nicol Oswald EO # 0.2 103/ul Normal 0.0-0.7 [facility] [facility] Comment on above: Performed By: #### C BC #### [facility] [address] [place] [address] Dr. Nicol Oswald Eosinophils/100 WBC (Bld) 1.9 % Normal 0.9-7.0 [facility] Comment on above: Performed By: #### C BC #### [facility] [address] [place] [address] Dr. Nicol Oswald Erythrocyte distribution width (RBC) [Ratio] 12.8 % Normal 11.0-15.0 [facility] Comment on above: Performed By: #### C BC #### [facility] [address] [place] [address] Dr. Nicol Oswald Hematocrit (Bld) [Volume fraction] 40.4 % Normal 36.0-48.0 [facility] Comment on above: Performed By: #### C BC #### [facility] [address] [place] [address] Dr. Nicol Oswald Hemoglobin (Bld) [Mass/Vol] 13.6 g/dL Normal 12.0-16.0 [facility] Comment on above: Performed By: #### C BC #### [facility] [address] [place] [address] Dr. Nicol Oswald IG # 0.03 10e3/ul Normal 0.00-0.03 [facility] Comment on above: Performed By: #### C BC #### [facility] [address] [place] [address] Dr. Nicol Oswald IG % 0.4 % Normal 0.0-0.5 [facility] Comment on above: Performed By: #### C BC #### [facility] [address] [place] [address] Dr. Nicol Oswald LYMPH # 3.1 103/ul Normal 1.2-3.8 [facility] Comment on above: Performed By: #### C BC #### [facility] [address] [place] [address] Dr. Nicol Oswald Lymphocytes/100 WBC (Bld) 36.4 % Normal 20.5-60.0 [facility] Comment on above: Performed By: #### C BC #### [facility] [address] [place] [address] Dr. Nicol Oswald MANUAL DIFF REQ NO Normal [facility] Comment on above: Performed By: #### C BC #### [facility] [address] [place] [address] Dr. Nicol Oswald MCH (RBC) [Entitic mass] 31.0 pg Normal 26.7-34.0 [facility] Comment on above: Performed By: #### C BC #### [facility] [address] [place] [address] Dr. Nicol Oswald MCHC (RBC) [Mass/Vol] 33.7 g/dL Normal 29.9-35.2 [facility] Comment on above: Performed By: #### C BC #### [facility] [address] [place] [address] Dr. Nicol Oswald MCV (RBC) [Entitic vol] 92.0 fL Normal 81.0-99.0 [facility] Comment on above: Performed By: #### C BC #### [facility] [address] [place] [address] Dr. Nicol Oswald MONO # 0.7 103/ul Normal 0.3-0.8 [facility] Comment on above: Performed By: #### C BC #### [facility] [address] [place] [address] Dr. Nicol Oswald Monocytes/100 WBC (Bld) 7.7 % Normal 1.7-12.0 [facility] Comment on above: Performed By: #### C BC #### [facility] [address] [place] [address] Dr. Nicol Oswald NEUT # 4.5 103/ul Normal 1.4-6.5 [facility] Comment on above: Performed By: #### C BC #### [facility] [address] [place] [address] Dr. Nicol Oswald Neutrophils/100 WBC (Bld) 53.2 % Normal 43.0-75.0 [facility] Comment on above: Performed By: #### C BC #### [facility] [address] [place] [address] Dr. Nicol Oswald Platelet mean volume (Bld) [Entitic vol] 11.0 fL Normal 9.5-13.5 [facility] Comment on above: Performed By: #### C BC #### [facility] [address] [place] [address] Dr. Nicol Oswald PLT 282 103/ul Normal 150-450 [facility] Comment on above: Performed By: #### C BC #### [facility] [address] [place] [address] Dr. Nicol Oswald RBC 4.39 106/ul Normal 4.20-5.40 [facility] Comment on above: Performed By: #### C BC #### [facility] [address] [place] [address] Dr. Nicol Oswald WBC 8.4 103/ul Normal 4.0-11.0 [facility] Comment on above: Performed By: #### C BC #### [facility] [address] [place] [address] Dr. Nicol Oswald LIVER PROFILEon 04-30-2022 Albumin [Mass/Vol] 4.1 g/dL Normal 3.4-5.0 [facility] Comment on above: Performed By: #### Tenzin SANCHEZ #### [facility] [address] [place] [address] Dr. Nicol Oswald Albumin/Globulin [Mass ratio] 1.2 {ratio} Normal [facility] Comment on above: Performed By: #### Tenzin SANCHEZ #### [facility] [address] [place] [address] Dr. Nicol Oswald ALP [Catalytic activity/Vol] 52 U/L Normal 46-116 [facility] Comment on above: Performed By: #### P DANIEL #### [facility] [address] [place] [address] Dr. Nicol Oswald ALT [Catalytic activity/Vol] 23 U/L Normal 14-59 [facility] Comment on above: Performed By: #### P DANIEL #### [facility] [address] [place] [address] Dr. Nicol Oswald AST [Catalytic activity/Vol] 17 U/L Normal 15-37 [facility] Comment on above: Performed By: #### P DANIEL #### [facility] [address] [place] [address] Dr. Nicol TRUJILLOI, CONJUGATED 0.1 mg/dL Normal 0.0-0.2 [facility] Comment on above: Performed By: #### P DANIEL #### [facility] [address] [place] [address] Dr. Nicol Oswald Bilirubin [Mass/Vol] 0.2 mg/dL Normal 0.2-1.0 [facility] Comment on above: Performed By: #### P DANIEL #### [facility] [address] [place] [address] Dr. Nicol Oswald Globulin (S) [Mass/Vol] 3.4 g/dL Normal T [facility] Comment on above: Performed By: #### P DANIEL #### [facility] [address] [place] [address] Dr. Nicol Oswald Protein [Mass/Vol] 7.5 g/dL Normal 6.4-8.2 [facility] Comment on above: Performed By: #### P DANIEL #### [facility] [address] [place] [address] Dr. Nicol Oswald PROF CHEM 8 (BAS METB)on Anion gap [Moles/Vol] 8.5 mmol/L Normal [facility] Comment on above: Performed By: #### P DANIEL #### [facility] [address] [place] [address] Dr. Nicol Oswald Calcium [Mass/Vol] 9.4 mg/dL Normal 8.5-10.1 [facility] Comment on above: Performed By: #### P DANIEL #### [facility] [address] [place] [address] Dr. Nicol Oswald Chloride [Moles/Vol] 102 mmol/L Normal 98-107 [facility] Comment on above: Performed By: #### P DANIEL #### [facility] [address] [place] [address] Dr. Nicol Oswald CO2 [Moles/Vol] 30.4 mmol/L Normal 21.0-32.[address] [facility] Comment on above: Performed By: #### P DANIEL #### [facility] [address] [address] [address] Nicol Oswald Creatinine [Mass/Vol] 0.57 mg/dL Normal 0.55-1.02 [facility] Comment on above: Performed By: #### P DANIEL #### [facility] [address] [address] [address] Nicol Oswald EGFR-AF SPANISH >60 Normal >=[address] [facility] Comment on above: Performed By: #### P DANIEL #### [facility] [address] [place] [address] Dr. Nicol Oswald EGFR-NON AF SPANISH >60 Normal >=60 [facility] Comment on above: Performed By: #### P DANIEL #### [facility] [address] [place] [address] Dr. Nicol Oswald Glucose [Mass/Vol] 89 mg/dL Normal 74-106 [facility] Comment on above: Performed By: #### P DANIEL #### [facility] [address] [place] [address] Dr. Nicol Oswald Potassium [Moles/Vol] 3.9 mmol/L Normal 3.5-5.1 [facility] Comment on above: Performed By: #### P DANIEL #### [facility] [address] [place] [address] Dr. Nicol Oswald Sodium [Moles/Vol] 137 mmol/L Normal 136-145 [facility] Comment on above: Performed By: #### P DANIEL #### [facility] [address] [place] [address] Dr. Nicol Oswald Urea nitrogen [Mass/Vol] 10.0 mg/dL Normal 7.0-18.0 [facility] Comment on above: Performed By: #### P DANIEL #### [facility] [address] [place] [address] Dr. Nicol Oswald Urea nitrogen/Creatinine [Mass ratio] 17.5 mg/mg Normal [facility] Comment on above: Performed By: #### Tenzin SANCHEZ #### [facility] [address] [address] [address] Nicol Oswald ESTROGENon 04-19-2022 Estrogens, Total 124 pg/mL Normal [facility] Comment on above: Result Comment: Prep ubertal < 40 Female Cycle: 1-10 Days 16 - 328 11-20 Days 34 - 501 21-30 Days 48 - 350 Post-Menopausal 40 - 244 Performed By: #### E KYLIE #### [facility] [address] [address] [address] Nicol Oswald DHEA SERUMon 04-18-2022 Dehydroepiandrosterone (DHEA) 371 ng/dL Normal [address] [facility] Comment on above: Result Comment: Age 1 - 5 years 0 - 67 6 - 7 years 0 - 110 8 - 10 years 0 - 185 11 - 12 years 0 - 201 13 - 14 years 0 - 318 15 - 16 years 39 - 481 17 - 19 years 40 - 491 >19 years 31 - 701 Performed By: #### P DANIEL #### [facility] [address] [address] [address] Nicol Oswald DHEA-SULFATEon 04-16-2022 DHEA-Sulfate 371.0 ug/dL Normal 84.8-378.0 [facility] Comment on above: Performed By: #### Tenzin SANCHEZ #### [facility] [address] [address] [address] Nicol Oswald FSHon 04-16-2022 FSH 5.6 mIU/mL Normal [facility] Comment on above: Result Comment: Adul t Female: Follicular phase 3.5 - 12.5 Ovulation phase 4.7 - 21.5 Luteal phase 1.7 - 7.7 Postmenopausal 25.8 - 134.8 Performed By: #### Tenzin SANCHEZ #### [facility] [address] [place] [address] Dr. Nicol Oswald LUTEINIZING HORMONE (LH)on 0 04-16-2022 LH 12.9 mIU/mL Normal [facility] Comment on above: Result Comment: Adul t Female: Follicular phase 2.4 - 12.6 Ovulation phase 14.0 - 95.6 Luteal phase 1.0 - 11.4 Postmenopausal 7.7 - 58.5 Performed By: #### P DANIEL #### [facility] [address] [place], [place] [id number] Dr. Nicol Oswald PROGESTERONEon 04-16-2022 Progesterone 0.2 ng/mL Normal [facility] Comment on above: Result Comment: Foll icular phase 0.1 - 0.9 Luteal phase 1.8 - 23.9 Ovulation phase 0.1 - 12.0 First trimester 11.0 - 44.3 Second trimester 25.4 - 83.3 Third trimester 58.7 - 214.0 Postmenopausal 0.0 - 0.1 Performed By: #### P DANIEL #### [facility] [address] [place] [address] Dr. Nicol Oswald PROLACTINon 04-16-2022 Prolactin 7.1 ng/mL Normal 4.8-23.3 [facility] Comment on above: Performed By: #### P ROLAC #### [facility] [address] [place] [address] Dr. Nicol Oswald US PELVIS AND TRANSVAGon [...] polycystic ovarian syndrome. Electronically authenticated by: CYDNEY Kimble: 2022-04-16 08:48 Normal [facility] CBC AUTO DIFFon 04-15-2022 BASO # 0.0 103/ul Normal 0.0-0.1 [facility] Comment on above: Performed By: #### C BC #### [facility] [address] [place] [address] Dr. Nicol Oswald Basophils/100 WBC (Bld) 0.5 % Normal 0.2-2.0 [facility] Comment on above: Performed By: #### C BC #### [facility] [address] [place] [address] Dr. Nicol Oswald EO # 0.2 103/ul Normal 0.0-0.7 [facility] Comment on above: Performed By: #### C BC #### [facility] [address] [place] [address] Dr. Nicol Oswald Eosinophils/100 WBC (Bld) 2.1 % Normal 0.9-7.0 [facility] Comment on above: Performed By: #### C BC #### [facility] [address] [place] [address] Dr. Nicol Oswald Erythrocyte distribution width (RBC) [Ratio] 12.5 % Normal 11.0-15.0 [facility] Comment on above: Performed By: #### C BC #### [facility] [address] [place] [address] Dr. Nicol Oswald Hematocrit (Bld) [Volume fraction] 44.7 % Normal 36.0-48.0 [facility] Comment on above: Performed By: #### C BC #### [facility] [address] [place] [address] Dr. Nicol Oswald Hemoglobin (Bld) [Mass/Vol] 14.3 g/dL Normal 12.0-16.0 [facility] Comment on above: Performed By: #### C BC #### [facility] [address] [place] [address] Dr. Nicol Oswald IG # 0.01 10e3/ul Normal 0.00-0.03 [facility] Comment on above: Performed By: #### C BC #### [facility] [address] [place] [address] Dr. Nicol Oswald IG % 0.1 % Normal 0.0-0.5 [facility] Comment on above: Performed By: #### C BC #### [facility] [address] [place] [address] Dr. Nicol Oswald LYMPH # 2.0 103/ul Normal 1.2-3.8 [facility] Comment on above: Performed By: #### C BC #### [facility] [address] [place] [address] Dr. Nicol Oswald Lymphocytes/100 WBC (Bld) 26.0 % Normal 20.5-60.0 [facility] Comment on above: Performed By: #### C BC #### [facility] [address] [place] [address] Dr. Nicol Oswald MANUAL DIFF REQ NO Normal [facility] Comment on above: Performed By: #### C BC #### [facility] [address] [place] [address] Dr. Nicol Oswald MCH (RBC) [Entitic mass] 30.8 pg Normal 26.7-34.0 [facility] Comment on above: Performed By: #### C BC #### [facility] [address] [place] [address] Dr. Nicol Oswald MCHC (RBC) [Mass/Vol] 32.0 g/dL Normal 29.9-35.2 [facility] Comment on above: Performed By: #### C BC #### [facility] [address] [place] [address] Dr. Nicol Oswald MCV (RBC) [Entitic vol] 96.3 fL Normal 81.0-99.0 [facility] Comment on above: Performed By: #### C BC #### [facility] [address] [place] [address] Dr. Nicol Oswald MONO # 0.6 103/ul Normal 0.3-0.8 [facility] Comment on above: Performed By: #### C BC #### [facility] [address] [place] [address] Dr. Nicol Oswald Monocytes/100 WBC (Bld) 7.3 % Normal 1.7-12.0 [facility] Comment on above: Performed By: #### C BC #### [facility] [address] [place] [address] Dr. Nicol Oswald NEUT # 4.9 103/ul Normal 1.4-6.5 [facility] Comment on above: Performed By: #### C BC #### [facility] [address] [place] [address] Dr. Nicol Oswald Neutrophils/100 WBC (Bld) 64.0 % Normal 43.0-75.0 [facility] Comment on above: Performed By: #### C BC #### [facility] [address] [place] [address] Dr. Nicol Oswald Platelet mean volume (Bld) [Entitic vol] 11.3 fL Normal 9.5-13.5 [facility] Comment on above: Performed By: #### C BC #### [facility] [address] [place] [address] Dr. Nicol Oswald PLT 302 103/ul Normal 150-450 [facility] Comment on above: Performed By: #### C BC #### [facility] [address] [place] [address] Dr. Nicol Oswald RBC 4.64 106/ul Normal 4.20-5.40 [facility] Comment on above: Performed By: #### C BC #### [facility] [address] [place] [address] Dr. Nicol Oswald WBC 7.7 103/ul Normal 4.0-11.0 [facility] Comment on above: Performed By: #### C BC #### [facility] [address] [place] [address] Dr. Nicol Oswald FREE T4on 04-15-2022 Free T4 [Mass/Vol] 0.80 ng/dL Normal 0.76-1.46 [facility] Comment on above: Performed By: #### F T4 #### [facility] [address] [place], [place] [id number] Dr. Nicol Oswald GLYCOHEMOGLOBIN A1Con 2022 ADA RECOMMENDATION SEE BELOW Normal [facility] Comment on above: Result Comment: ADA RECOMMENDED LIMIT 4.0 - 6.0 ADA THERAPEUTIC TARGET < 7.0 ACTION SUGGESTED > 7.0 Performed By: #### A 1C #### [facility] [address] [place] [address] Dr. Nicol Oswald Glucose [Mass/Vol] 114 mg/dL Normal [facility] Comment on above: Performed By: #### A 1C #### [facility] [address] [address] [address] Nicol Oswald HbA1c (Bld) [Mass fraction] 5.6 % Normal 4.5-6.2 [facility] Comment on above: Performed By: #### A 1C #### [facility] [address] [place] [address] Dr. Nicol Oswald PREG QUANT HCGon 04-15-2022 HCG QUANT <1 Normal [facility] Comment on above: Performed By: #### P REGQNT, TSH #### [facility] [address] [place] [address] Dr. Nicol Oswald HCG RANGE SEE BELOW Normal [facility] Comment on above: Result Comment: 5-50 0.2-1 WEEK 50-500 1-2 WEEKS 100-5,000 2-3 WEEKS 500-10,000 3-4 WEEKS 1,000-50,000 4-5 WEEKS 10,000-100,000 5-6 WEEKS 15,000-200,000 6-8 WEEKS 10,000-100,000 2-3 MONTHS Performed By: #### P REGQNT, TSH #### [facility] [address] [place] [address] Dr. Nicol Oswald TSHon 04-15-2022 TSH 1.312 uIU/mL Normal 0.358-3.740 [facility] Comment on above: Performed By: #### P REGQNT, TSH #### [facility] [address] [place] [address] Dr. Nicol Oswald PAP ACOG PANEL 2: 21 to 29on 08-31-2021 . . Normal [facility] Comment on above: Performed By: #### P ROGES #### [facility] [address] [address] [address] Nicol Oswald Age Gdln ACOG Testing 21-29 [facility] Comment on above: Performed By: #### P ROGES #### [facility] [address] [place] [address] Dr. Nicol Oswald DIAGNOSIS: Comment [facility] Comment on above: Result Comment: NEGA TIVE FOR INTRAEPITHELIAL LESION OR MALIGNANCY. THIS SPECIMEN WAS RESCREENED PART OF OUR PUBLIC POLICY ASSOCIATE PROGRAM. Performed By: #### P ROGES #### [facility] [address] [place] [address] Dr. Nicol Oswald Methodology: Comment [facility] Comment on above: Result Comment: This liquid based ThinPrep(R) pap test was screened with the use of an image guided system. Performed By: #### P ROGES #### [facility] [address] [place] [address] Dr. Nicol Oswald Note: Comment [facility] Comment on above: Result Comment: The Pap smear is a screening test designed to aid in the detection of premalignant and malignant conditions of the uterine cervix. It is not a diagnostic procedure and should not be used as the sole means of detecting cervical cancer. Both false-positive and false-negative reports do occur. . Performed By: #### P ROGES #### [facility] [address] [place] [address] Dr. Nicol Oswald Performed by: Comment Normal [facility] Comment on above: Result Comment: Mireille Blanco, Merchandise Executive (ASCP) Performed By: #### P ROGES #### [facility] [address] [place] [address] Dr. Nicol Oswald QC reviewed by: Comment [facility] Comment on above: Result Comment: Tahira Roque, Merchandise Executive (ASCP) Performed By: #### P ROGES #### [facility] [address] [place] [address] Dr. Nicol Oswald Reflex Criteria: Comment Normal [facility] Comment on above: Result Comment: The HPV DNA reflex criteria were not met with this specimen result therefore, no HPV testing was performed. . Performed By: #### P DANIEL #### [facility] [address] [address] [address] Nicol Oswald Specimen adequacy: Comment Normal [facility] Comment on above: Result Comment: Sati sfactory for evaluation. Endocervical and/or squamous metaplastic cells (endocervical component) are present. Performed By: #### P DANIEL #### [facility] [address] [place], [place] [address] Dr. Nicol Oswald CBC Auto Diff Reflex Manualo n 02-18-2019 Automated Absolute Neutrophil 5.73 10*3/mm3 Normal [facility] Comment on above: Result Comment: Auto mated Absolute Neutrophil Count (ANC) is directly measured using a hematology instrument. ANC determined from manual differential cell count may differ. No [facility] reference range has been validated for this assay. Performed By: #### C D #### [place] [address] Basophil 0.5 % Normal 0.0-1.0 [facility] Comment on above: Performed By: #### C D #### [place] [address] Differential Type Automated Normal [facility] Comment on above: Performed By: #### C D #### [place] [address] Eosinophil 1.6 % Normal 1.0-4.0 [facility] Comment on above: Performed By: #### C D #### [place] [address] Erythrocyte distribution width (RBC) [Ratio] 13.4 % Normal 10-14.1 [facility] Comment on above: Performed By: #### C D #### [place] [address] Lymphocyte 22.6 % Low 24.0-44.0 [facility] Comment on above: Performed By: #### C D #### Performed at [address] [address] MCH (RBC) [Entitic mass] 30.7 pg Normal 26-34 [facility] Comment on above: Performed By: #### C D #### Performed at [address] [address] MCHC (RBC) [Mass/Vol] 33.2 % Normal 31.0-37.0 [facility] Comment on above: Performed By: #### C D #### Performed at [address] [address] MCV (RBC) [Entitic vol] 92.4 fL Normal 80-100 [facility] Comment on above: Performed By: #### C D #### Performed at [address] [address] Monocyte 8.2 % High 1.0-7.0 [facility] Comment on above: Performed By: #### C D #### Performed at [place] [address] Neutrophil 67.1 % Normal 41.0-77.0 [facility] Comment on above: Performed By: #### C D #### Performed at [address] [address] Platelet mean volume (Bld) [Entitic vol] 11.5 fL Normal 9.3-13.0 [facility] Comment on above: Performed By: #### C D #### Performed at [address] [address] Platelets (Bld) [#/Vol] 268 10*3/uL Normal 140-440 [facility] Comment on above: Performed By: #### C D #### Performed at [address] [address] RBC (Bld) [#/Vol] 4.60 10*6/uL Normal 4.0-5.2 [facility] Comment on above: Performed By: #### C D #### Performed at [address] [address] WBC (Bld) [#/Vol] 8.6 10*3/uL Normal 4.5-11 [facility] Comment on above: Performed By: #### C D #### Performed at [facility], [address] [place] [address] Comprehensive Metabolic Pane alexandr 02-18-2019 Albumin [Mass/Vol] 4.7 g/dL Normal 3.4-5.2 [facility] ALP [Catalytic activity/Vol] 47 U/L Low 50-136 [facility] ALT [Catalytic activity/Vol] 32 U/L Normal <40 [facility] AST [Catalytic activity/Vol] 29 U/L Normal 15-50 [facility] Bilirubin Ql (U) 0.2 mg/dL Normal 0.1-1.0 [facility] Calcium [Mass/Vol] 9.8 mg/dL Normal 8-10.5 [facility] Chloride [Moles/Vol] 104 mmol/L Normal 95-106 [facility] CO2 [Moles/Vol] 25 mmol/L Normal 24-35 [facility] Creatinine [Mass/Vol] 0.52 mg/dL Normal 0.5-1 [facility] Glucose [Mass/Vol] 135 mg/dL High 60-115 [facility] Potassium [Moles/Vol] 4.5 mmol/L Normal 3.7-5.3 [facility] Protein [Mass/Vol] 8.0 g/dL Normal 6.4-8.4 [facility] Sodium [Moles/Vol] 140 mmol/L Normal 135-145 [facility] Urea nitrogen [Mass/Vol] 15 mg/dL Normal 5-18 [facility] Valproic Acidon 02-18-2019 Valproic Acid 47.1 ug/mL Low 50.0-100.0 [facility] PAP, THIN PREP WITH IMAGINGo n 06-29-2018 PAP, THIN PREP WITH IMAGING Normal [facility] Comment on above: Result Comment: INTE RPRETATION Thin Prep Image-Guided Pap Test (Cervical/Endocervical) NEGATIVE FOR INTRAEPITHELIAL LESION /MALIGNANCY Satisfactory for evaluation (Endocervical/transformation zone component present) [facility]/06/27/2018 The Pap test is a screening test, [...] 05/18/18 ICD-CM DIAGNOSIS CODE(S) Z01.419 [facility] For Fire Alarm Dispatcher Exam (general) (routine) W/o Abn Findings * EFFECTIVE 06/08/2018 * * CLINICAL CHEMISTRY PLATFORM CHANGES ARE ASSOCIATED WITH * * REFERENCE RANGE CHANGES FOR A NUMBER OF ANALYTES. PLEASE * * REVIEW REFERENCE INTERVALS CAREFULLY * [facility] [employer] [address] [place] [address] CLIA No. [id number] CAP Accreditation No. [id number] Senior Strategy Manager: Johnson Garland M.D. [employer] Accession Number: [id number] Performed By: #### P L PAP W/IMAGE #### [address] [address] [address] Nucleic-Acid Probe-Endoce rvical Swabon 06-24-2018 CT Nucleic-Acid Probe-Endocervical Swab Negative Normal NEGATIVE [facility] Comment on above: Performed By: #### G C Amp Endocerv, CT Amp Endocerv #### [address] [address] Age at specimen collection = Normal [facility] Comment on above: Performed By: #### G C Amp Endocerv, CT Amp Endocerv #### [facility] [address] [place] [address] Performed By: #### P L PAP W/IMAGE #### [facility] [address] [place] [address] GC Nucleic-Acid Probe-Endoce rvical Swabon 06-24-2018 GC Nucleic-Acid Probe-Endocervical Swab Negative Normal NEGATIVE [facility] Comment on above: Performed By: #### G C Amp Endocerv, CT Amp Endocerv #### [facility] [address] [place] [address] Platelet Functionon 03-24-19 19 Collagen/ADP 148 sec High 67-112 [facility] Comment on above: Performed By: #### P FA #### [facility] [address] [place] [address] Collagen/EPI 228 sec High 85-172 [facility] Comment on above: Performed By: #### P FA #### [facility] [address] [place] [address] Interpretation Abnormal platelet function. Normal [facility] Comment on above: Result Comment: Comm [...] established. Performed By: #### P FA #### [facility] [address] [place] [id number] XR ANKLE RIGHT STANDARDon XR ANKLE RIGHT STANDARD Radiology exam i s complete. No Radiologist dictation. Please follow up with ordering provider. Final result Normal [facility] Vital Signs Date Time Vital Sign Value Performing Clinician Facility 02-14-2023 15:48-0500 Body height 161.3 cm Riana Raoul DIRECTOR OF REHABILITATION-COUNTY OR CITY AUDITOR Work Phone: [facility] Comment on above: verbal 02-14-2023 15:48-0500 Body mass index (BMI) [Ratio] 34.82 kg/m2 Riana Raoul DIRECTOR OF REHABILITATION-COUNTY OR CITY AUDITOR Work Phone: [facility] 02-14-2023 15:48-0500 Body temperature 97.9 [degF] Crystal Raoul DIRECTOR OF REHABILITATION-COUNTY OR CITY AUDITOR Work Phone: [facility] 02-14-2023 15:48-0500 Body weight 90.58 kg Riana Raoul DIRECTOR OF REHABILITATION-COUNTY OR CITY AUDITOR Work Phone: [facility] 02-14-2023 15:48-0500 Diastolic blood pressure 79 mm[Hg] Crystal Raoul DIRECTOR OF REHABILITATION-COUNTY OR CITY AUDITOR Work Phone: [facility] 02-14-2023 15:48-0500 Heart rate 107 /min Crystal Raoul DIRECTOR OF REHABILITATION-COUNTY OR CITY AUDITOR Work Phone: [facility] 02-14-2023 15:48-0500 Systolic blood pressure 133 mm[Hg] Crystal Raoul DIRECTOR OF REHABILITATION-COUNTY OR CITY AUDITOR Work Phone: [facility] 01-15-2023 13:50-0500 Body temperature 97.5 [degF] Evy Verma MD Work Phone: [facility] 01-15-2023 13:50-0500 Diastolic blood pressure 79 mm[Hg] Evy Verma MD Work Phone: [facility] 01-15-2023 13:50-0500 Heart rate 78 /min Evy Verma MD Work Phone: [facility] 01-15-2023 13:50-0500 Respiratory rate 16 /min Evy Verma MD Work Phone: [facility] 01-15-2023 13:50-0500 SaO2% (BldA) [Mass fraction] 98 % Evy Verma MD Work Phone: [facility] 01-15-2023 13:50-0500 Systolic blood pressure 117 mm[Hg] Evy Verma MD Work Phone: [facility] 01-15-2023 07:50-0500 Body height 161.3 cm Evy Verma MD Work Phone: [facility] 01-15-2023 07:50-0500 Body mass index (BMI) [Ratio] 34.37 kg/m2 Evy Verma MD Work Phone: [facility] 01-15-2023 07:50-0500 Body weight 89.4 kg Evy Verma MD Work Phone: [facility] 01-09-2023 08:39-0400 Body height 161.3 cm Esau Hernandez PAC Work Phone: [facility] 01-09-2023 08:39-0400 Body mass index (BMI) [Ratio] 33.65 kg/m2 Esau Hernandez PAC Work Phone: [facility] 01-09-2023 08:39-0400 Body temperature 98.49 [degF] Esau Hernandez PAC Work Phone: [facility] 01-09-2023 08:39-0400 Body weight 87.54 kg Esau Hernandez PAC Work Phone: [facility] 01-09-2023 08:39-0400 Diastolic blood pressure 80 mm[Hg] Esau Hernandez PAC Work Phone: [facility] 01-09-2023 08:39-0400 Heart rate 81 /min Esau Hernandez PAC Work Phone: [facility] 01-09-2023 08:39-0400 Respiratory rate 18 /min Esau Hernandez PAC Work Phone: [facility] 01-09-2023 08:39-0400 SaO2% (BldA) [Mass fraction] 98 % Esau Hernandez PAC Work Phone: [facility] 01-09-2023 08:39-0400 Systolic blood pressure 134 mm[Hg] Esau Hernandez PAC Work Phone: [facility] 12-10-2022 10:53-0400 Body height 160 cm Evy Verma MD Work Phone: [facility] 12-10-2022 10:53-0400 Body mass index (BMI) [Ratio] 34.19 kg/m2 Evy Verma MD Work Phone: [facility] 12-10-2022 10:53-0400 Body weight 87.54 kg Evy Verma MD Work Phone: [facility] 12-10-2022 10:53-0400 Diastolic blood pressure 63 mm[Hg] Evy Verma MD Work Phone: [facility] 12-10-2022 10:53-0400 Heart rate 65 /min Evy Verma MD Work Phone: [facility] 12-10-2022 10:53-0400 Systolic blood pressure 125 mm[Hg] Evy Verma MD Work Phone: [facility] 11-08-2022 16:21-0400 Body height 160 cm Riana Chinchilla APRN-COUNTY OR CITY AUDITOR Work Phone: [facility] Comment on above: verbal 11-08-2022 16:21-0400 Body mass index (BMI) [Ratio] 34.26 kg/m2 Riana Chinchilla DIRECTOR OF REHABILITATION-COUNTY OR CITY AUDITOR Work Phone: [facility] 11-08-2022 16:21-0400 Body temperature 99.1 [degF] Riana Chinchilla DIRECTOR OF REHABILITATION-COUNTY OR CITY AUDITOR Work Phone: [facility] 11-08-2022 16:21-0400 Body weight 87.73 kg Riana Raoul DIRECTOR OF REHABILITATION-COUNTY OR CITY AUDITOR Work Phone: [facility] 11-08-2022 16:21-0400 Diastolic blood pressure 71 mm[Hg] Crystal Raoul DIRECTOR OF REHABILITATION-COUNTY OR CITY AUDITOR Work Phone: [facility] 11-08-2022 16:21-0400 Heart rate 97 /min Crystal Raoul DIRECTOR OF REHABILITATION-COUNTY OR CITY AUDITOR Work Phone: [facility] 11-08-2022 16:21-0400 Systolic blood pressure 116 mm[Hg] Crystal Raoul DIRECTOR OF REHABILITATION-COUNTY OR CITY AUDITOR Work Phone: [facility] 07-04-2021 09:38-0400 Body height 161.3 cm Crystal Raoul DIRECTOR OF REHABILITATION-COUNTY OR CITY AUDITOR Work Phone: [facility] Comment on above: verbal 07-04-2021 09:38-0400 Body mass index (BMI) [Ratio] 36.23 kg/m2 Crystal Raoul DIRECTOR OF REHABILITATION-COUNTY OR CITY AUDITOR Work Phone: [facility] 07-04-2021 09:38-0400 Body temperature 98.71 [degF] Crystal Raoul DIRECTOR OF REHABILITATION-COUNTY OR CITY AUDITOR Work Phone: [facility] 07-04-2021 09:38-0400 Body weight 94.26 kg Crystal Raoul DIRECTOR OF REHABILITATION-COUNTY OR CITY AUDITOR Work Phone: [facility] 07-04-2021 09:38-0400 Diastolic blood pressure 70 mm[Hg] Crystal Raoul DIRECTOR OF REHABILITATION-COUNTY OR CITY AUDITOR Work Phone: [facility] 07-04-2021 09:38-0400 Heart rate 73 /min Crystal Raoul DIRECTOR OF REHABILITATION-COUNTY OR CITY AUDITOR Work Phone: [facility] 07-04-2021 09:38-0400 Systolic blood pressure 119 mm[Hg] Crystal Raoul DIRECTOR OF REHABILITATION-COUNTY OR CITY AUDITOR Work Phone: [facility] Encounters Encounter Date Encounter Type Care Provider Facility Start: 02-14-2023 ambulatory [facility] Facility: [facility] Start: 02-14-2023 End: 02-14-2023 Office outpatient visit 25 minutes Riana Chinchilla DIRECTOR OF REHABILITATION-COUNTY OR CITY AUDITOR Work Phone: [facility] 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); 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 Start: 01-15-2023 End: 01-15-2023 ambulatory EVY VERMA Facility:[facility] Start: 01-15-2023 End: 01-15-2023 Subsequent hospital visit by physician Evy Verma MD Work Phone: [facility] 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 Start: 01-09-2023 ambulatory TIM ROLON Facility: [facility] Start: 01-09-2023 Encounter for other preprocedural examination ESAU HERNANDEZ Facility:[facility] Start: 01-09-2023 End: 01-09-2023 Office consultation new/estab patient 60 min Esau Hernandez PAC Work Phone: Pre-Procedure Evaluation and Assessment [facility] Comment on above: Preop exam for inter nal medicine (Primary Dx); Jeavons syndrome; 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 Start: 01-09-2023 End: 01-09-2023 Patient encounter status Esau Hernandez PAC Work Phone: [facility] Start: 01-09-2023 End: 01-09-2023 Subsequent hospital visit by physician Evy Verma MD Work Phone: Imaging [facility] Comment on above: Arrived Start: 12-10-2022 ambulatory EVY VERMA Facility:[facility] Start: 12-10-2022 End: 12-10-2022 Office outpatient new 45 minutes Evy Verma MD Work Phone: [facility] 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) Start: 11-27-2022 ambulatory TIM NAVARRE Facility: [facility] Start: 11-19-2022 ambulatory TIM ROLON Facility: [facility] Start: 11-14-2022 ambulatory TIM ROLON Facility: [facility] Start: 11-08-2022 ambulatory TIM ROLON Facility: [facility] Start: 11-08-2022 End: 11-08-2022 Office outpatient visit 40 minutes Riana Gordillo Raoul DIRECTOR OF REHABILITATION-COUNTY OR CITY AUDITOR Work Phone: Neurology [facility] 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) Start: 09-19-2022 ambulatory TIM ROLON Facility: [facility] Start: 09-13-2022 ambulatory RIANA CHINCHILLA Facilit y:[facility] Start: 05-23-2022 End: 05-24-[address] YOLANDA JASSO . Facility: Start: 05-01-2022 ambulatory EVY VERMA Facility:[facility] Start: 04-30-2022 End: 05-01-[address] DOCTOR ASHTON Facility: Start: 04-19-2022 ambulatory CORI HERNÁNDEZ V Facilit y:[facility] Start: 04-16-2022 End: 04-17-[address] YOLANDA JASSO . Facility: Start: 04-15-2022 End: 04-16-[address] YOLANDA JASSO . Facility: Start: 08-27-2021 End: 08-27-[address] YOLANDA JASSO . Facility: Start: 07-04-2021 End: 07-04-2021 Office outpatient visit 25 minutes Riana Gordillo Raoul DIRECTOR OF REHABILITATION-COUNTY OR CITY AUDITOR Work Phone: Neurology [facility] Comment on above: Generalized nonconvu lsive epilepsy (Primary Dx) Start: 06-24-2018 Encounter for gynecological examination (general) (routine) without abnormal findings NA NONE PER PATIENT [facility] Start: 06-24-2018 End: 06-24-2018 Patient encounter procedure GERARDO WARD Facility:[facility] Start: 05-25-2018 End: 05-25-2018 Patient encounter procedure . NONE PER PATIENT Facility:[facility] Start: 05-13-2018 End: 05-13-2018 Patient encounter procedure . NONE PER PATIENT Facility:[facility] Start: 03-23-2018 End: 03-24-2018 Patient encounter procedure JAMIL A [facility] Start: 03-20-2018 End: 03-21-2018 Patient encounter procedure JAMIL A [facility] Procedures Date Procedure Procedure Detail Performing Clinician [...] By: #### C D #### Performed at [facility], [address] [place] [address] Start: 03-23-2018 PLATELET FUNCTION TEST JAMIL SMITH Plan of Treatment Date Care Activity Detail Author Start: 08-21-2023 End: 08-21-2023 Patient encounter procedure 08/21/2023 2:45 PM EDT Office Visit Neurology [facility] [address] [place] [address] Cori Dia, DO [address] [place] [address] Neurology [facility] Start: 05-28-2023 End: 05-28-2023 Patient encounter procedure 05/28/2023 2:00 PM EDT Office Visit Neurology [facility] [address] [place] [address] Riana Chinchilla, DIRECTOR OF REHABILITATION-COUNTY OR CITY AUDITOR [address] [place] [address] Neurology [facility] Start: 02-14-2023 End: 02-14-2023 Patient encounter procedure Neurology [facility] Start: 01-15-2023 End: 01-15-2023 Admission to same day surgery center 01/15/2023 9:40 AM EST - 01/15/2023 11:50 AM EST Surgery [facility] [address] [place] [address] Evy Verma MD [address] [place] [address] INSERTION REPLACEMENT NEUROSTIMULATOR GENERATOR CRANIAL/INTRACRANIAL [facility] Comment on above: INSERTION REPLACEMENT NEUROSTIMULATOR GE NERATOR CRANIAL/INTRACRANIAL Start: 01-15-2023 End: 01-15-2023 Insj/rplcmt cranial neurostim pulse generator INSERTION REPLACEMENT NEUROSTIMULATOR GENERATOR CRANIAL/INTRACRANIAL Jeavons syndrome 01/15/2023 9:40 AM EST [facility] Start: 01-15-2023 Subsequent hospital visit by physician 01/15/2023 9:40 AM EST Hospital Encounter [facility] [address] [place] [address] Evy Verma MD [address] [place] [address] Jeavons syndrome [facility] 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 Start: 12-10-2022 End: 12-11-2023 Radiographic imaging procedure XR STIMULATOR/INTRATHECAL PUMP Imaging Routine Jeavons syndrome Expected: 12/10/2022, Expires: 12/11/2023 [facility] Comment on above: Expected: 12/10/2022, Expires: Start: 12-10-2022 End: 12-10-2022 Patient encounter procedure 12/10/2022 11:30 AM EDT Office Visit [facility] [address] [place] [address] [place] [id number] Evy Verma MD [address] [facility] [address] [place] [phone] [facility] Start: 11-08-2022 Influenza vaccination INFLUENZA VACCINE (#1) [facility] Start: 01-04-2022 End: 01-04-2022 Patient encounter procedure 01/04/2022 Office Visit Neurology Cori Dia, DO [address] [place] [address] Neurology [facility] Start: 11-08-2021 Influenza vaccination INFLUENZA VACCINE (Season Ended) [facility] Start: 10-10-2021 End: 10-10-2021 Telemedicine consultation with patient 10/10/2021 Telemedicine Neurology Riana Chinchilla, DIRECTOR OF REHABILITATION-COUNTY OR CITY AUDITOR [address] [place] [phone] Neurology [facility] Start: 08-15-2021 End: 08-15-2021 Telemedicine consultation with patient 08/15/2021 Telemedicine Neurology Riana Chinchilla, DIRECTOR OF REHABILITATION-COUNTY OR CITY AUDITOR [address] [place] [phone] Neurology [facility] Start: 2013 Screening for malignant neoplasm of cervix CERVICAL CANCER SCREENING DISCUSSION [facility] Start: 07-15-2011 Third diphtheria, tetanus and acellular pertussis (DTaP) vaccination TDAP (ADULT) [facility] Start: 2010 Tetanus vaccination TETANUS [facility] Start: 07-15-2007 HIV screening HIV SCREENING DISCUSSION [facility] Start: 1997 COVID-19 VACCINE (1) COVID-19 VACCINE (1) [facility] Start: 01-14-1993 COVID-19 VACCINE (#1) COVID-19 VACCINE (#1) [facility] Start: 1992 Hepatitis B vaccination HEP B VACCINE (1 of 3 - 3-dose series) [facility] Start: 1992 Hepatitis C antibody, confirmatory test HEPATITIS C VIRUS SCREENING [facility] Start: 1992 Hepatitis C screening HEPATITIS C VIRUS SCREENING [facility] Start: 1992 Tetanus vaccination TETANUS [facility] Ecg routine ecg w/le ast 12 lds w/i&r MT ELECTROCARDIOGRAM, COMPLETE MT - OFFICE PERFORMED Routine 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 Ordered: 01/09/2023 [facility] Comment on above: Ordered: 01/09/2023 Elec horace implt smpl cn npgt prgrmg MT ELEC HORACE IMPLT SMPL CN NPGT PRGRMG MT Charge Routine Jeavons syndrome Ordered: 11/14/2022 [facility] Comment on above: Ordered: 11/14/2022 Elec horace implt smpl cn npgt prgrmg MT ELEC HORACE IMPLT SMPL CN NPGT PRGRMG MT Charge Routine 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 Ordered: 03/12/2023 [facility] Comment on above: Ordered: 03/12/2023 Insj/rplcmt cranial neurostim pulse generator INSERTION REPLACEMENT NEUROSTIMULATOR GENERATOR CRANIAL/INTRACRANIAL Jeavons syndrome [facility] Noninvasive ear/puls e oximetry single deter MT NONINVASV OXYGEN SATUR; SINGLE MT - OFFICE PERFORMED Routine 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 Ordered: 01/09/2023 [facility] Comment on above: Ordered: 01/09/2023 Immunizations Immunization Date Immunization Notes Care Provider Lee shelton 01-04-2014 influenza, seasonal, injectable, preservative free Evy Verma MD Work Phone: [facility] 01-04-2014 influenza virus vaccine, unspecified formulation Riana Chinchilla APRN-COUNTY OR CITY AUDITOR Work Phone: [facility] Payers Date Payer Category Payer Unknown [id number] 2016 Unknown [id number] 2016 Self-pay 2014 Unknown [id number] 1992 Unknown [id number] 2.16.8 40.1.427512.3.579.2.173 1992 Unknown [id number] 2.16.8 40.1.404754.3.579.2.173 1992 Unknown [id number] 2.16.84 0.1.235468.3.579.2.754 1992 Unknown [id number] 2.16.84 0.1.753037.3.579.2.754 1992 Unknown [id number] 2.16.84 0.1.854027.3.579.2.754 1992 Unknown [id number] 2.16.84 0.1.375458.3.579.2.754 1992 Unknown [id number] 2.16.84 0.1.043277.3.579.2.593 1992 Unknown [id number] 2.16.84 0.1.349790.3.579.2.593 1992 Unknown [id number] 2.16.84 0.1.974394.3.579.2.593 1992 Unknown [id number] 2.16.84 0.1.208926.3.579.2.593 1992 Unknown [id number] 2.16.84 0.1.023563.3.579.2.593 1992 Unknown [id number] 2.16. 840.1.619549.3.579.2.594 1992 Unknown [id number] 2.16. 840.1.884965.3.579.2.594 1992 Unknown [id number] 2.16 840.1.679128.3.579.2.594 1992 Unknown [id number] 2.16 840.1.112270.3.579.2.594 1992 Unknown [id number] 2.16 840.1.551560.3.579.2.594 1992 Unknown [id number] 2.16 840.1.779935.3.579.2.594 1992 Unknown [id number] 2.16 840.1.858149.3.579.2.594 1992 Unknown [id number] 2.16 840.1.787146.3.579.2.594 1992 Unknown [id number] 2. 840.1.528958.3.579.2.594 1992 Unknown [id number] 2. 840.1.711676.3.579.2.594 1992 Unknown [id number] 2.16 840.1.163921.3.579.2.594 1992 Unknown [id number] 2. 840.1.575053.3.579.2.594 1992 Unknown [id number] 2. 840.1.336792.3.579.2.594 1992 Unknown [id number] 2 840.1.895243.3.579.2.594 1992 Unknown [id number] 2. 840.1.560978.3.579.2.594 1959 Unknown [id number] 1959 Unknown [id number] Social History Date Type Detail Facility Start: 10-28-2019 End: 02-14-2023 Tobacco smoking status NHIS Never smoked tobacco [facility] Start: 10-28-2019 End: 02-14-2023 Tobacco use and exposure Smokeless tobacco non-user [facility] Start: 10-28-2019 Alcohol intake Current drinker of alcohol (finding) [facility] Start: 10-28-2019 History SDOH Alcohol Frequency 2 [facility] Start: 10-28-2019 History SDOH Alcohol Comment rare wine [facility] Start: 10-28-2019 Education 17 [facility] Start: 1990 Sex Assigned At Not on file [facility] Start: 11-08-2022 End: 02-14-2023 Alcohol intake Ex-drinker (finding) [facility] Start: 10-28-2019 End: 02-14-2023 History of Social function [facility] Start: 10-28-2019 End: 02-14-2023 Alcohol Use Disorder Identification Test - Consumption [AUDIT-C] [facility] How often to you hav e a drink containing alcohol? Monthly or less [facility] Average Number of Drinks Not on file [facility] Start: 10-29-2019 Gender identity Identifies as female gender (finding) [facility] Start: 10-29-2019 Sexual orientation Heterosexual (finding) [facility] Start: 02-14-2023 Tobacco Comment Never [facility] Start: 02-14-2023 Alcohol Comment At most one or two drinks a month. [facility] Medical Equipment Procedure Code Equipment Code Equipment Origin al Text Equipment Identifier Dates [employer] [id number] Start: 01-15-2023 Clinical Notes 07-04-2021 to 02-14-2023 Riana Chinchilla APRN-DAI - 02/14/2023 4:00 PM ESTPatient InstructionsOp Note - Evy Verma MD - 01/15/2023 2:26 PM ESTNursing Notes - May Ware RN - 01/15/2023 2:26 PM ESTDischarge Instructions Note Date & Type Note Facility 02-14-2023 History of Presen t illness Narrative Images from the original note were not included. Rowena Byers was seen in the [facility] on 02/14/2023. She is here today for a follow-up in clinic accompanied by her , Pedro. She was last seen on 04/19/[address] Cori Hernández DO and with me 11/08/2022. History of Present Illness INTERVAL HISTORY: Rowena [...] with it. Pertinent Seizure History Per Dr Hernández 04/2022: History of Present Illness: As you [...] She has a past medical history of Anxiety, Anxiety disorder (03/05/2022), Hematuria, and Seizure. Past Family History family history includes Cancer- Other in her paternal grandfather; Diabetes in her paternal uncle; Mental Illness in her maternal grandmother; Prostate Cancer in her maternal grandfather and paternal grandfather. Past Social History She reports that she has never smoked. She has never used smokeless tobacco. She reports that she does not currently use alcohol. She reports that she does not currently use drugs after having used the following drugs: Marijuana. Past Surgical History has a past surgical history that includes insertion neurostimulator electrode & generator cranial nerve (eg vagus) open and insertion replacement neurostimulator generator cranial/intracranial (Left, 01/15/2023). Allergies She is allergic to seasonal. Medications Outpatient Medications Prior to Visit Medication Sig Dispense Refill acetaminophen 650 MG Tab CR Take 1 tablet by mouth every 6 hours as needed for Mild Pain. cloBAZam 20 MG tablet Take 1 tablet by mouth Daily (with dinner). 30 tablet 5 Femara 2.5 MG tablet Take 1 tablet by mouth at bedtime. Folic acid 1 MG tablet Take 1 tablet by mouth Daily (with dinner). 30 tablet 11 LamoTRIgine 300 MG Tab SR 24 HR TAKE 1 TABLET BY MOUTH EVERYDAY AT BEDTIME 90 tablet 1 loratadine 10 MG tablet Take 1 tablet by mouth as needed. LORazepam 0.5 MG tablet 1 tab up to three times a week as needed for anxiety (Patient taking differently: Take 1 tablet by mouth as needed. 1 tab up to three times a week as needed for anxiety) 10 tablet 1 medroxyPROGESTERone 10 MG tablet Take 1 tablet by mouth as needed. Takes for 14 days each time needed Melatonin 5 MG Chew Tab Chew 1 tablet at bedtime as needed. metFORMIN 500 MG tablet Take 1 tablet by mouth at bedtime. Midazolam (Nayzilam) 5 MG/0.1ML Solution 5 mg by Nasal route as needed. For seizure clusters longer than 5 minutes. May repeat in 10 minutes. Do not exceed 10 mg in 24 hours. 2 Each 0 Prenat MV-Min w/Gh-Ddrjul-ICJ ( COMPLETE PO) Take 1 tablet by mouth at bedtime. Sertraline 100 MG tablet 1 tablet at bedtime (Patient taking differently: Take 1 tablet by mouth at bedtime.) 90 tablet 3 Melatonin 3 MG tablet TAKE 1 TABLET BY MOUTH EVERYDAY AT BEDTIME (Patient taking differently: Take 5 mg by mouth at bedtime as needed.) 90 tablet 2 Mupirocin 2 % ointment Please apply to both nostrils twice per day for five days. Please use medication for five days prior to your scheduled surgery date. 22 g 0 No facility-administered medications prior to visit. REVIEW [...] No data to display PHYSICAL EXAM Vitals: 02/14/23 1548 BP: 133/79 Pulse: 107 Temp: 97.9 degrees F (36.6 degrees C) TempSrc: Infrared Weight: 90.6 kg (199 lb 11.2 oz) Height: 1.613 m (5' 3.5 ) Body mass index is 34.82 kg/m . General: alert, anxious, no distress, appears stated [...] Results Component Value Date VALPROICACID 66.19 10/28/2019 LAMOTRIGINE 4.3 01/09/2023 Lab Results Component Value Date WBC 10.38 01/09/2023 HGB 14.3 01/09/2023 HCT 42.5 01/09/2023 MCV 92.4 01/09/2023 MPV 10.8 01/09/2023 PLATELET 326 01/09/2023 Lab Results Component Value Date SODIUM 137 01/09/2023 POTASSIUM 4.0 01/09/2023 CHLORIDE 102 01/09/2023 CO2 26 01/09/2023 BUN 12 01/09/2023 CREATSERUM 0.64 01/09/2023 GLUCOSE 159 (H) 12/29/2020 CALCIUM 9.2 01/09/2023 TP 7.9 01/09/2023 ALBUMIN 4.9 01/09/2023 BILITOTAL 0.3 01/09/2023 BILIDIRECT 0.1 12/29/2020 ALKPHOS 35 01/09/2023 ALT 19 01/09/2023 AST 18 01/09/2023 No results found for: TSH , VITB6 , THIAMNRBC , B12 Neurodiagnostics: Neuroimaging: Neuropsychology Testing: Battery Color GREEN 75-100 % Normal Parameter Current Adjustments Output Current (mA) 2 2.25 Signal Frequency (Hz) 20 Pulse Width (mSec) 250 On time (Sec) 30 Off Time (Min) 1.1 AutoStim Parameter Current Adjustments Output Current (mA) 2.25 2.5 Pulse Width (mSec) 250 On time (Sec) 30 Magnet Settings Parameter Current Adjustments Output Current (mA) 2.5 2.75 Pulse Width (mSec) 500 On time (Sec) 14 Tachycardia Current Adjustments Tachycardia Detection enabled HB detection sensitivity 3 Threshold for AutoStim 40 System Diagnostic Patient ID ABW Model ID Santosva Serial # [id number] Implanted 01/15/2023 Communication OK Output Current Status OK Current Delivered 2 Lead Impedance OK Impedance Value 2571 IFI NO Average # of Inhibited Auto stimulations Daily Avg. Stim % Per Day %Therapy Normal 816.72 AutoStim 61.61 Magnet 0.03 Total 878.36 During this visit, I interrogated the device [...] VNS Simple Reprogramming (1-3 changes) CPT code 89086 Assessment and Plan Assessment: Rowena is a pleasant 32 y.o. 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 A diagnosis of 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 was also pertinent to this visit. who has had an improvement in seizures since the increase in lamotrigine and VNS changes since her last office visit. She also tolerated her VNS changes today. Plan: 1. Jeavons syndrome - continued increased lamotrigine 300 mg daily and continue maintenance dose of clobazam - tolerated VNS changes today (increase to normal, autostim, and magnet output), recommended that she swipe the magnet twice daily to acclimate to settings - We discussed factors that lower seizure [...] seizure activity lasting longer than 5 minutes. Encouraged use of [employer] to send messages to provider as needed for questions and concerns or can call our clinic @ [phone]. She will return in 3 months with me and [address] Hernández or sooner if clinically indicated. Signed, Riana Chinchilla MSN, DIRECTOR OF REHABILITATION-COUNTY OR CITY AUDITOR [facility] Department of Neurology - Epilepsy Division [address] [place] [address] - 7th floor [place] [address] Pager: [phone] I spent a total of 34 minutes on the date of the service which included preparing to see the patient, qpjo-gl-vdim patient care, completing clinical documentation, performing a medically appropriate examination and counseling and educating the patient/family/caregiver. Note to patient: The Century Cures Act makes medical notes like these available to patients in the interest of transparency. However, be advised this is a medical document. It is intended as ltkc-hq-woqj communication. It is written in medical language and may contain abbreviations or verbiage that are unfamiliar. It may appear blunt or direct. Medical documents are intended to carry relevant information, facts as evident, and the clinical opinion of the practitioner. documented in this encounter [facility] 02-14-2023 Instructions JETHRO Juan - 02/14/2023 4:00 PM EST Images from the original note were not included. 1. Please Continue your current anti seizure medication regimen with onfi and lamictal for now. We could increase lamictal in the future if needed 2. Please do not drive until you are seizure free for at least 6 months due to the potential risk of injury and associated with driving with uncontrolled seizures. Please do not work in close proximity of heavy machinery with moving parts, work in high places such as scaffoldings, ladders, and roofs, and use of heavy duty power tools. Please take caution and do not swim or take baths unsupervised, or shower with water accumulation. Finally, please avoid open flames or gas stove tops unsupervised. 3. You have 24 hours to make up a missed dose. Please make up the dose within a day to help prevent breakthrough seizures. On weekends or after regular office hours, a neurologist is hospice consultant for urgent issues. Call the neurology office number ([phone]) to reach the neurologist hospice consultant if you are continuing to experience many more seizures than usual despite use of your rescue medications. Please try to remember that the neurologist hospice consultant may not have access to your complete medical record and may not be as familiar with your history. If you have access through [employer], you can contact us through that system as well. If you have documents that need completed or sent to our clinic, please have them faxed to [phone]. It is always best to call during regular office hours when a nurse can talk with you, review your medical record, and talk to your managing neurologist or nurse practitioner. Also, please remember that routine refills are not urgent, and if needed, please try to call during working hours and allow 2-3 working days to process the refill. Please contact your pharmacy to see if the refill is ready for you to roll picker. Seizure First Aid Training Can Be Found Here (it's free!): [email or web address] documented in this encounter [facility] 01-15-2023 Miscellaneous Notes [facility]PER[facility]IVE REPORT PATIENT NAME: Rowena Byers PROCEDURE [...] The IPG had been interrogated by the tax representative from the vendor. The upper chest over [...] the new IPG and secured with the retail cosmetics sales beauty advisor's screwdriver. At this point, a mainframe programmer analyst was used to interrogate the new pulse [...] SPR, VSS, anesthesia sign out completed. Rowena Byers ([id number]) PRE OPERATIVE DIAGNOSIS 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] POST OPERATIVE DIAGNOSIS Post-Op Diagnosis Codes: * 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] PROCEDURE PERFORMED Procedure(s) (LRB): INSERTION REPLACEMENT NEUROSTIMULATOR GENERATOR CRANIAL/INTRACRANIAL (Left) PRIMARY CLOSURE Yes INTRAOPERATIVE FINDINGS Replacement of left chest wall implantable pulse generator for VNS. SURGEON Surgeon(s) and Role: * Evy Verma MD - Primary ANESTHESIOLOGIST Anesthesiologist: Cydney Zavala MD POUNDMASTER: Geraldo Marion APRN-POUNDMASTER Student Nurse Pet Counselor: Chiquita Polanco SURGICAL STAFF Accounting Support Specialist: Miki Gary RN; Linda Gilmroe RN Relief Accounting Support Specialist: Janet Carreon RN Scrub Person: Marielle Ibrahim Resident Assisting: Colt Meadwos MD COMPLICATIONS None ESTIMATED BLOOD LOSS Minimal SPECIMENS No specimen sent * No specimens in log * Colt Meadows MD January 15, 2023 11:03 AM documented in this encounter [facility] 01-15-2023 Nurse Note Pt and family were given AVS and verbalize understanding of instructions. Pt discharged via wheelchair. [facility] 01-15-2023 Surgery Postoperative evaluation and management note [facility] REPORT PATIENT NAME: Rowena Byers PROCEDURE [...] The IPG had been interrogated by the tax representative from the vendor. The upper chest over [...] the new IPG and secured with the retail cosmetics sales beauty advisor's screwdriver. At this point, a mainframe programmer analyst was used to interrogate the new pulse [...] entire procedure and performed the critical portions. [facility] 01-15-2023 Nurse Note Report called to RN SPR, VSS, anesthesia sign out completed. [facility] 01-15-2023 Surgery Postoperative evaluation and management note Rowena Menjivar Zeeshan ([id number]) PRE OPERATIVE DIAGNOSIS 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] POST OPERATIVE DIAGNOSIS Post-Op Diagnosis Codes: * 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] PROCEDURE PERFORMED Procedure(s) (LRB): INSERTION REPLACEMENT NEUROSTIMULATOR GENERATOR CRANIAL/INTRACRANIAL (Left) PRIMARY CLOSURE Yes INTRAOPERATIVE FINDINGS Replacement of left chest wall implantable pulse generator for VNS. SURGEON Surgeon(s) and Role: * Evy Verma MD - Primary ANESTHESIOLOGIST Anesthesiologist: Cydney Zavala MD POUNDMASTER: Geraldo Marion APRN-POUNDMASTER Student Nurse Pet Counselor: Chiquita Polanco SURGICAL STAFF Accounting Support Specialist: Miki Gary RN; Linda Gilmore RN Relief Accounting Support Specialist: Janet Carreon RN Scrub Person: Marielle Ibrahim Resident Assisting: Colt Meadows MD COMPLICATIONS None ESTIMATED BLOOD LOSS Minimal SPECIMENS No specimen sent * No specimens in log * Colt Meadows MD January 15, 2023 11:03 AM [facility] 01-15-2023 Nurse Surgical operation note Report given to FAMILY COUNSELOR. Patient transported to PACU with anesthesia on a cart and oxygen. [facility] 01-15-2023 Nurse Note Report given to FAMILY COUNSELOR. Patient transported to PACU with anesthesia on a cart and oxygen. documented in this encounter [facility] 01-15-2023 Hospital Discharg e instructions Colt Meadows MD - 01/15/2023 9:30 AM EST Discharge Instructions for DBS Surgery & Battery Placement Surgery Here are some general guidelines to assist you in your recovery at home. Please do not hesitate to call us with any questions or concerns you may have. We can be reached at [phone]. Your appointmentS will be in the Neuromodulation clinic in [address] Incision Care: If you have a [...] 101 degrees F documented in this encounter [facility] 01-15-2023 History and physical note PERIOPERATIVE [...] by Evy Verma MD, 01/15/2023, 9:08 AM. [facility] Work Phone: 01-15-2023 History and physical [...] 01/15/2023, 9:08 AM. documented in this encounter [facility] 01-09-2023 History and physical note Images [...] 10 mg in 24 hours. Prenat MV-Min w/Je-Popfrq-FAZ ( COMPLETE PO) Take 1 tablet by [...] % ointment HCG QUALITATIVE, URINE Pulse Ox MT ECG, CLINIC PERFORMED Lab A/P - Labs [...] patient has been medically OPTIMIZED FOR SURGERY. 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 History of Present Illness Ms. Byers is a 32 y.o. female is being evaluated in [facility] due to her medical condition of Jeavons [...] 10 mg in 24 hours. Prenat MV-Min w/Ae-Dbchvo-FIR ( COMPLETE PO) Take 1 tablet by [...] % ointment HCG QUALITATIVE, URINE Pulse Ox MT ECG, CLINIC PERFORMED Lab A/P - Labs [...] patient has been medically OPTIMIZED FOR SURGERY. [facility] [address] Review of Systems (OSUROS)Review of Systems [...] PCP - General (Internal Medicine) Riana Chinchilla APRN-COUNTY OR CITY AUDITOR (Certified Nurse Practitioner) Family History Problem Relation Age of Onset Prostate Cancer Maternal Grandfather Mental Illness Maternal Grandmother Depression , Anxiety Prostate Cancer Paternal Grandfather Cancer- Other Paternal Grandfather Diabetes Paternal Uncle Social History Socioeconomic History Marital status: Highest education level: Bachelor's degree (e.g., BA, AB, BS) 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 Will check hCG today and on day of surgery. Patient understands that surgery may be cancelled if she is . Anesthesia Assessment:No contraindications to planned surgery. Pending review of the patient's labs.ECG reviewed. Whitney Ward MD [facility] Preoperative Assessment Center documented in this encounter [facility] 01-09-2023 Instructions Robyn Dempsey LPN - [...] take Herbal Medication (including multi-vitamin, fish oil (Dover-3), garlic, Glucosamine - Chondroitin ,gingko, ginseng, Vitamin [...] site one week prior to surgery. - [place] your teeth and rinse your mouth the morning of surgery. - Do NOT bring your dentures or partials with you into surgery. They may be lost. Give them to someone to bring to you after surgery. If you are unable to complete your scheduled testing or appointments made by [facility] please contact [facility] at [phone]. Failure to do so could delay or [...] surgery, please notify our team immediately at [phone]. - If you have Sleep apnea and have a CPAP or BIPAP, then bring your CPAP mask and machine with you to the hospital. Please contact Medical Information Management Department for all records requests. [phone] Puma/mateo documented in this encounter [facility] 12-10-2022 History of Presen t illness Narrative [...] under general anesthesia. The patient saw Riana Chinchilla on 11-08-22 and at that point was [...] that were dedicated to clinical evaluation, including tbdo-te-iwlf time; counseling and education; chart completion; reviewing [...] aspirin, excedrin, plavix), multivitamins/minerals/herbal supplements (such as Dover-3, garlic, Glucosamine - Chondroitin, gingko, ginseng, Vitamin E, fish oil, etc), non-steroidal anti-inflammatory medications (NSAIDs) (such as Ibuprofen/Motrin/Advil, Aleve, Celebrex) for 10 days prior to surgery, as these are blood thinners. She was advised that Tylenol is the preferred option for pain. She stated understanding. documented in this encounter [facility] 11-08-2022 History of Presen t illness Narrative Images from the original note were not included. Rowena Byers was seen in the [facility] on 11/08/2022. She is here today for a follow-up in clinic accompanied by her , Pedro. She was last seen on 04/19/[address] Cori Hernández, and with me 09/19/22. History of Present Illness INTERVAL HISTORY: [...] with it. Pertinent Seizure History Per Dr Hernández 04/2022: History of Present Illness: As you [...] ID AW Model ID SenTiva Serial # [id number] Implanted 03/27/2018 Communication OK Output Current Status [...] patient was instructed to call our clinic TJ should these s/s occur. Billing: VNS: VNS Simple Reprogramming (1-3 changes) CPT code 46668 Assessment and Plan Assessment: Rowena is a [...] would like to wait Encouraged use of [employer] to send messages to provider as needed for questions and concerns or can call our clinic @ [phone]. She will return in 2 months or sooner if clinically indicated. Signed, Riana Chinchilla MSN, DIRECTOR OF REHABILITATION-COUNTY OR CITY AUDITOR [facility] Department of Neurology - Epilepsy Division [address] [place] [address] - 7th floor [place] [address] Pager: [phone] I spent a total of 46 minutes on the date of the service which included preparing to see the patient, njmp-nw-cyyo patient care, completing clinical documentation, performing a medically appropriate examination and counseling and educating the patient/family/caregiver. Note to patient: The Century Cures Act makes medical notes like these available to patients in the interest of transparency. However, be advised this is a medical document. It is intended as qnqs-wk-dbos communication. It is written in medical language and may contain abbreviations or verbiage that are unfamiliar. It may appear blunt or direct. Medical documents are intended to carry relevant information, facts as evident, and the clinical opinion of the practitioner. documented in this encounter [facility] 11-08-2022 Instructions JETHRO Juan - 11/08/2022 [...] ID AW Model ID SenTiva Serial # [id number] Implanted 03/27/2018 Communication OK Output Current Status OK Current Delivered 1.75 Lead Impedance OK Impedance Value 2903 IFI NO Average # of Inhibited Auto stimulations Daily Avg. Stim % Per Day %Therapy Normal 843.56 AutoStim 26.89 Magnet 0.04 Total 870.50 documented in this encounter [facility] 07-04-2021 Instructions JETHRO Juan - 07/04/2021 [...] weeks with Riana documented in this encounter [facility] 07-04-2021 History of Presen t illness Narrative Images from the original note were not included. Rowena Byers was seen in the [facility] on 07/04/2021. She is here today for a follow-up accompanied by her becka Vasquez. She was last seen on 12/29/[address] Cori Hernández DO. Interval History Rowena is a 30 [...] enjoys. 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 Encouraged use of [employer] to send messages to provider as needed for questions and concerns or can call our clinic @ [phone]. She will return in 6 weeks and 3 months with me and [address] Hernández or sooner if clinically indicated. Signed, Riana Chinchilla MSN, DIRECTOR OF REHABILITATION-COUNTY OR CITY AUDITOR [facility] Department of Neurology - Epilepsy Division [address] - 7th floor [place], [place] [address] Pager: [phone] Time to complete visit: I spent approximately 38 minutes reviewing the chart prior to the appointment, in face to face counseling with the patient, and with documentation after the visit. 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 [facility] Diagnosis Preop exam for internal medicine- Primary Other specified pre-operative examination 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 Other postprocedural status Jeavons syndrome [facility] 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 Other postprocedural status [facility])* Consultation (Routine) - New Request Specialty Diagnoses / Procedures Referred By Rainer ramos Referred To Contact Neurologic Surgery Diagnoses Jeavons syndrome Evy Verma MD [address] [place] [address] Referral ID Status Reason Start Date Expiration Date V isits Requested Visits Authorized [id number] New Request 12/10/2022 01/04/2024 1 1 [facility] Summary Purpose Family History No Family [...] To Contact Diagnoses Generalized nonconvulsive epilepsy Riana Chinchilla DIRECTOR OF REHABILITATION-COUNTY OR CITY AUDITOR [address] [place] [address] Referral ID Status Reason Start Date Expiration Date V isits Requested Visits Authorized [id number] Pending Review 1 1 Specialty Diagnoses / Procedures Referred By Contac t Referred To Contact Procedures DVT/VTE RISK ASSESSMENT Evy Verma MD [address] [place] [address] Referral ID Status Reason Start Date Expiration Date V isits Requested Visits Authorized [id number] New Request 01/15/2023 02/09/2024 1 1 Additional Source Comments INFORMATION SOURCE (unrecogn ized section and content) DATE CREATED AUTHOR 09/03/2017 [facility] DATE CREATED AUTHOR AUTHOR'S ORGANIZ ATION 03/28/2018 [facility] DATE CREATED AUTHOR AUTHOR'S ORGANIZ ATION 07/02/2018 [facility] DATE CREATED AUTHOR AUTHOR'S ORGANIZ ATION 10/02/2019 [facility] DATE CREATED AUTHOR AUTHOR'S ORGANIZ ATION 06/01/2022 [facility] DATE CREATED AUTHOR AUTHOR'S ORGANIZ ATION 02/17/2023 [facility] Reason for Visit (unrecogniz ed section and content) Reason Comments Follow-up Reason Comments Follow-up Reason Comments New Patient 32 y.o female here f or consult. Specialty Diagnoses / Procedures Referred By Contac t Referred To Contact Neurologic Surgery Diagnoses Jeavons syndrome S/P placement of VNS (vagus nerve stimulation) device Riana Chinchilla APRN-COUNTY OR CITY AUDITOR [address] [place] [address] Referral ID Status Reason Start Date Expiration Date V isits Requested Visits Authorized [id number] New Request 09/19/2022 10/14/2023 1 1 Reason Comments Preoperative Assessment Specialty Diagnoses / Procedures Referred By Contac t Referred To Contact Neurologic Surgery Diagnoses Jeavons syndrome Evy Verma MD [address] [place] [phone] Referral ID Status Reason Start Date Expiration Date V isits Requested Visits Authorized [id number] New Request 12/10/2022 01/04/2024 1 1 Specialty Diagnoses / Procedures Referred By Contac t 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] Procedures MT IMP STIM,CRANIAL,SUBQ,1 ARRAY INSERTION REPLACEMENT NEUROSTIMULATOR GENERATOR CRANIAL/INTRACRANIAL Evy Verma MD [address] [place] [phone] [facility] [address] [place] [address] Referral ID Status Reason Start Date Expiration Date Visits Re quested Visits Authorized [id number] 1 1 Care Teams (unrecognized sec tion and content) Housing Management Officer Relationship Specialty Start Date End Date Tim Rolon DO [address] [place] [address] PCP - General Internal Medicine 09/19/22 Riana Chinchilla, DIRECTOR OF REHABILITATION-COUNTY OR CITY AUDITOR [address] [phone] Certified Nurse Practitioner 11/08/22 Housing Management Officer Relationship Specialty Start Date End Date Tim Rolon DO [address] [place] [address] PCP - General Internal Medicine 09/19/22 Riana Chinchilla, DIRECTOR OF REHABILITATION-COUNTY OR CITY AUDITOR [address] [phone] Certified Nurse Practitioner 11/08/22 Housing Management Officer Relationship Specialty Start Date End Date HaylieTim [address] [place] [address] PCP - General Internal Medicine 09/19/22 Riana Chinchilla, DIRECTOR OF REHABILITATION-COUNTY OR CITY AUDITOR [address] [place] [phone] Certified Nurse Practitioner 11/08/22 Housing Management Officer Relationship Specialty Start Date End Date Tim RolonDO [address] [place] [address] PCP - General Internal Medicine 09/19/22 Riana Chinchilla, DIRECTOR OF REHABILITATION-COUNTY OR CITY AUDITOR [address] [place] [phone] Certified Nurse Practitioner 11/08/22 Housing Management Officer Relationship Specialty Start Date End Date HaylieTim [address] [place] [address] PCP - General Internal Medicine 09/19/22 Riana Chinchilla, DIRECTOR OF REHABILITATION-COUNTY OR CITY AUDITOR [address] [place] [phone] Certified Nurse Practitioner 11/08/22 Housing Management Officer Relationship Specialty Start Date End Date HaylieTim [address] [place] [address] PCP - General Internal Medicine 09/19/22 Riana Chinchilla, DIRECTOR OF REHABILITATION-COUNTY OR CITY AUDITOR [address] [place] [phone] Certified Nurse Practitioner 11/08/22 Scheduled Active and [...] - Comment: mixed 1:1 w/Lido with epi [id number]) ceFAZolin (ANCEF) 2 g in dextrose 100 mL premix IVPB (COMPLETED) 2 g, Intravenous, Administer over 30 Minutes, HR DIRECTOR TO PROCEDURE, 1 dose, Starting on Fri01/15/23 at 0758, Until Discontinued, Other, Surgical Prophylaxis, Initiate antibiotic administration 30-60 minutes prior to surgical incision and complete administration prior to surgical incision., Pre-op/Pre-Proc 0955 (Given - Provid er: Geraldo Marion, DIRECTOR OF REHABILITATION-) lidocaine-epinephrine 2 %-1:[id number] injection (CANCELED) NEEDED, Starting on Fri01/15/23 at [...] Order-specific weight), Intravenous, Administer over 1 Hours, HR DIRECTOR TO PROCEDURE, 1 dose, Starting on Fri01/15/23 [...] BE BASED ON THE PRIMARY CLINICAL RECORDS. [employer] [facility]. provides no warranty or guarantee of the accuracy or completeness of information in this document.
[2023-04-09 12:27] LABS: Free T4 0.77 ng/dL (0.76-1.46)
[2023-04-09 12:29] LABS: Estimated Average Glucose 108 mg/dL; Glycohemoglobin A1C 5.4 % (4.5-6.2)
[2023-04-09 12:38] LABS: HCG Quantitative <1 mIU/mL; Thyroid Stimulating Hormone 1.827 uIU/mL (0.358-3.740)
[2023-04-09 14:19] LABS: Basophils Absolute Auto 0.1 10^3/uL (0.0-0.1); Basophils Percent Auto 0.5 % (0.2-2.0); Eosinophils Absolute Auto 0.2 10^3/uL (0.0-0.7); Eosinophils Percent Auto 1.9 % (0.9-7.0); Hematocrit 42.5 % (36.0-48.0); Hemoglobin 13.9 g/dL (12.0-16.0); Immature Granulocytes Abs Auto 0.02 10^3/uL (0.00-0.03); Immature Granulocytes Pct Auto 0.2 % (0.0-0.5); Lymphocytes Absolute Auto 3.8 10^3/uL (1.2-3.8); Lymphocytes Percent Auto 39.1 % (20.5-60.0); Mean Corpuscular HGB Conc 32.7 g/dL (29.9-35.2); Mean Corpuscular Hemoglobin 30.7 pg (26.7-34.0); Mean Corpuscular Volume 93.8 fL (81.0-99.0); Mean Platelet Volume 11.2 fL (9.5-13.5); Monocytes Absolute Auto 0.7 10^3/uL (0.3-0.8); Monocytes Percent Auto 7.4 % (1.7-12.0); Neutrophils Absolute Auto 4.9 10^3/uL (1.4-6.5); Neutrophils Percent Auto 50.9 % (43.0-75.0); Platelet Count 309 10^3/uL (150-450); Red Blood Count 4.53 10^6/uL (4.20-5.40); Red Cell Distribution Width 12.1 % (11.0-15.0); White Blood Count 9.6 10^3/uL (4.0-11.0)
[2023-04-10 04:08] LABS: Progesterone 20.6 ng/mL (.)
[2023-04-10 05:08] LABS: FSH 1.5 mIU/mL (.); Luteinizing Hormone(LH) 0.8 mIU/mL (.)
[2023-04-14 02:17] LABS: DHEA, Serum 255 ng/dL (31-701)
== END 2023-04-09 11:25 | disposition home or self-care (01) ==
LOC: LAB 11:24
PROVIDERS: PCP Internal Medicine; Visit Provider Obstetrics & Gynecology
DX: N97.0 Female infertility associated with anovulation (principal); E28.2 Polycystic ovarian syndrome
CPT/HCPCS: 36415; 82626; 82627; 83001; 83002; 83036; 84144; 84439; 84443; 84702; 85025

== ENCOUNTER 2023-04-18 12:40 | Outpatient (RCR) | payer OTHER, SELFPAY ==
[2023-04-18 13:54] LABS: HCG Quantitative <1 mIU/mL
== END 2023-05-08 17:41 | disposition home or self-care (01) ==
LOC: LAB 12:40
PROVIDERS: PCP Internal Medicine; Visit Provider Obstetrics & Gynecology
DX: N97.9 Female infertility, unspecified (principal)
CPT/HCPCS: 36415; 84702

== ENCOUNTER 2023-05-09 11:26 | Outpatient (OUT) | payer OTHER, SELFPAY ==
--- OUTSIDE RECORDS SUMMARY | 2023-05-09 11:29 | XMS_ITS | CCD ---
Author Name Unknown Address [id number] [place] [address] Organization [facility] Care Team Providers Care Gear Roller Name Role Phone JAMIL SMITH Referring Unavailable [...] Primary Care Unavailable Unavailable Primary Care Provider Unavailhever e KIMMIE ., DR GUERRERO Admitting Unavailable KIMMIE ., DR GUERRERO Attending Unavailable KIMMIE ., DR GUERRERO Consulting Unavailable KIMMIE ., DR GUERRERO Admitting Unavailable KIMMIE ., DR GUERRERO Attending Unavailable HAYLIE, DR RAMEY Primary Care Unavailable KIMMIE ., DR GUERRERO Consulting Unavailable MISC, DR ARMENTA Admitting Unavailable MISC, DR ARMENTA Attending Unavailable HAYLIE, DR RAMEY Primary Care Unavailable MISC, DR ARMENTA Consulting Unavailable KIMMIE ., DR GUERRERO Consulting Unavailable KIMMIE ., DR GUERRERO Admitting Unavailable KIMMIE ., DR GUERRERO Attending Unavailable HAYLIE, DR RAMEY Primary Care Unavailable KIMMIE ., DR GUERRERO Consulting Unavailable ZIEBER, DR CYDNEY Conner Consulting Unavailable KIMMIE ., DR GUERRERO Admitting Unavailable KIMMIE ., DR GUERRERO Attending Unavailable HAYLIE, DR RAMEY Primary Care Unavailable KIMMIE ., DR GUERRERO Consulting Unavailable Tim Rolon DO Primary Care Provider [phone] Raoul CLINICAL PROVIDER TRAINER-ELECTRONICS TECHNICIAN APPRENTICE, Crystal G Unavailable EVY VERMA Referring Unavailable BALL, TIM Primary Care Unavailable VERMA, EVY C Attending Unavailable VERMA, EVY C Attending Unavailable BALL, TIM Primary Care Unavailable VERMA, EVY C Referring Unavailable BALL, TIM Referring Unavailable BALL, TIM Primary Care Unavailable RAOUL, CRYSTAL G Attending Unavailable CORI ARRIAGA Attending Unavailable SELF, SELF Referring Unavailable RAOUL, [...] Primary Care Unavailable ESAU HERNANDEZ Attending Unavailable Tim Rolon MD Primary Care Provider DONOVAN BURKS Attending Unavailable Allergies Allergy Classification Reported Allergen(s) Allergy Type Date of Onset Reaction(s) Facility (7 sources) Seasonal allergy Propensity to adverse reactions to drug 7 Runny Nose, Congestion [facility] Work Phone: (2 sources) Pollen Propensity to adverse reactions 7 Runny nose [facility] (2 sources) Other Propensity to adverse reactions 2 Runny nose [facility] Medications Current Medications Medication Drug Class(es) Dates [...] 650 mg cloBAZam 20 mg oral tablet (9 sources) Benzodiazepine Start: 10-17-2022 End: 04-19-2023 take [...] Active folic acid 1 mg oral tablet (9 sources) Start: 04-30-2021 take 1 tablet by mouth once daily at dinner Folic acid 1 MG tablet Take 1 tablet by mouth Daily (with dinner). 30 tablet 11 04/19/2022 Active lacosamide 100 mg oral tablet (1 [...] 10/21/2022 Active letrozole 2.5 mg oral tablet (6 sources) Aromatase Inhibitor Start: 04-18-2023 End: 04-23-2023 take 3 tablets by mouth once daily letrozole (Femara) 2.5 MG chemo tablet Indications: Female infertility Take 3 tablets (7.5 mg total) by mouth Daily for 5 days. 15 tablet 0 04/18/2023 04/23/2023 Active Start: 11-19-2022 take 1 tablet by josh th at bedtime Femara 2.5 MG tablet Take 1 tablet by mouth at bedtime. 0 11/19/2022 Active loratadine 10 mg oral tablet (7 sources) loratadine 10 MG tablet Take 1 tablet by mouth as needed. 0 Active 12 hr loratadine 5 mg / pseudoephedrine sulfate 120 mg extended release oral tablet (2 sources) alpha-Adrenergic Agonist take 1 tablet by mouth once in the morning, then take 1 tablet by mouth every twelve hours at bedtime loratadine-pseudoephedri ne ER (Claritin-D 12-hour) 5-120 MG 12 hr tablet Take 1 tablet by mouth in the morning and 1 tablet before bedtime. Do not crush, chew, or split. . 0 Active LORazepam 0.5 mg oral tablet (8 sources) Benzodiazepine Start : 03-22 End: 03-22 LORazepam 0.5 MG tablet Indications: Anxiety disorder, unspecified type 1 tab up to three times a week as needed for anxiety 10 tablet 1 03/22/2022 03/22/2023 Active magnesium oxide 400 mg oral tablet (2 sources) Start : 03-28 End: 07-25 take 1 tablet by mouth in the morning magnesium oxide (Mag-Ox) 400 MG tablet Indications: Other migraine without status migrainosus, not intractable (CMS/HCC) Take 1 tablet (400 mg) by mouth in the morning. 30 tablet 3 03/28/2023 07/26/2023 Active medroxyPROGESTERone acetate 10 mg oral tablet (3 sources) Progestin medroxyPROGESTER one 10 MG tablet Take 1 tablet by mouth as needed. Takes for 14 days each time needed 0 Active metFORMIN hydrochloride 500 mg oral tablet (6 sources) Biguanide take 1 tablet by mouth at mealtime metFORMIN (Glucophage) 500 MG tablet Take 500 mg by mouth in the morning. Take with meals. 0 Active midazolam 50 mg/ml nasal spray (8 sources) Benzodiazepine Start : 10-02 Midazolam (Nayzilam) 5 MG/0.1ML Solution Indications: Seizure disorder 5 mg by Nasal route as needed. For seizure clusters longer than 5 minutes. May repeat in 10 minutes. Do not exceed 10 mg in 24 hours. 2 Each 0 10/02/2020 Active Start: 02-18-2019 midazolam HCl 50 MG/10ML Solution 10 mg by Nasal route. 0 02/18/2019 Active Multiple Vitamins-Minerals (CULTURELLE PROBIOTICS + MULTIV PO) (2 sources) Multiple Vitamins-Minerals (CULTURELLE PROBIOTICS + MULTIV PO) Take by mouth 0 Active Prenat MV-Min w/Hw-Iawsmc-HPE ( COMPLETE PO) (4 sources) take 1 tablet by mouth once at bedtime Prenat MV-Min w/Cc-Yfpqti-PVE ( COMPLETE PO) Take 1 tablet by mouth at bedtime. 0 Active MV-Min-Fe Fum-FA-DHA ( 1 PO) (2 sources) MV-Min- Fe Fum-FA-DHA ( 1 PO) Take by mouth. 0 Active sertraline 100 mg oral tablet (8 sources) Serotonin Reuptake Inhibitor Start: 023 Sertraline 100 MG tablet Indications: Anxiety disorder, unspecified type 1 tablet at bedtime 90 tablet 3 04/19/2022 Active 24 hr divalproex sodium 250 mg extended release oral tablet (2 sources) Mood Stabilizer, Anti-epileptic Agent Start: 022 take 1 tablet by mouth at bedtime [...] Indications: Difficulty falling asleep at night until manager category hours TAKE 1 TABLET BY MOUTH EVERYDAY [...] 1 Application progesterone 100 mg oral capsule (3 sources) Progesterone End: 04-22-2023 take 1 capsule by mouth every twenty-four hours as needed progesterone 100 MG capsule Take 100 mg by mouth Daily as needed. 0 04/22/2023 Discontinued (Therapy completed) 1000 ml sodium chloride 9 mg/ml injection [...] Chronic Contraceptive and procreative management (2 sources) Patient encounter status; Translations: [Encounter for other procreative management] 04-17-2023 Episodic Contraceptive and procreative management (2 sources) Encounter for initial prescription of implantable subdermal contraceptive; Translations: [Encounter for surveillance of implantable subdermal contraceptive] Onset: 05-13-2018 Epilepsy; convulsions (20 sources) Generalized idiopathic epilepsy and epileptic syndromes, not intractable, without status epilepticus; Translations: [Generalized non-convulsive epilepsy] Onset: 06-14-2008 Chronic Other endocrine disorders (4 sources) Polycystic ovarian syndrome; Translations: [POLYCYSTIC OVARIAN SYNDROME] Onset: 05-23-2022 Chronic Other endocrine disorders (2 sources) Polycystic ovary syndrome; Translations: [Polycystic ovarian syndrome] Onset: 12-10-2022 12-10-2022 Chronic Other nutritional; endocrine; and metabolic disorders [...] HCG ( test) Ql (U) Negative Negative [facility] Interpretation and review of laboratory results Normal [facility] Test performed at address of the patient encounter. [facility] CARDIAC RHYTHM (SCANNED)on 03-17-2022 [facility] CBC AND ELECTRONIC DIFFon Basophils (Bld) [#/Vol] 0.05 10*3/uL Normal 0.00-0.15 [facility] Comment on above: Performed By: #### L [id number] #### [facility] (DEFAULT) [address] [address] Basophils/100 WBC (Bld) 0.5 % Normal [facility] Comment on above: Performed By: #### L [id number] #### [facility] (DEFAULT) [address] [place] [address] DIFF STATUS Electronic Differential Normal [facility] Comment on above: Performed By: #### L [id number] #### [facility] (DEFAULT) [address] [place] [address] Eosinophils (Bld) [#/Vol] 0.12 10*3/uL Normal 0.00-0.4 2 [facility] Comment on above: Performed By: #### L [id number] #### [facility] (DEFAULT) [address] [place] [address] Eosinophils/100 WBC (Bld) 1.2 % Normal [facility] Comment on above: Performed By: #### L [id number] #### [facility] (DEFAULT) [address] [address] Hematocrit (Bld) [Volume fraction] 42.5 % Normal 34.9-44.3 [facility] Comment on above: Performed By: #### L [id number] #### [facility] (DEFAULT) [address] [address] Hemoglobin (Bld) [Mass/Vol] 14.3 g/dL Normal 11.4-15.2 [facility] Comment on above: Performed By: #### L [id number] #### [facility] (DEFAULT) [address] [address] Immature Grans % 0.3 % Normal [facility] Comment on above: Performed By: #### L [id number] #### [facility] (DEFAULT) [address] [address] Immature Grans Absolute < Normal <=0.08 [facility] Comment on above: Performed By: #### L [id number] #### [facility] (DEFAULT) [address] [address] Lymphocytes (Bld) [#/Vol] 3.42 10*3/uL Normal 1.16-3.5 1 [facility] Comment on above: Performed By: #### L [id number] #### [facility] (DEFAULT) [address] [address] Lymphocytes/100 WBC (Bld) 32.9 % Normal [facility] Comment on above: Performed By: #### L [id number] #### [facility] (DEFAULT) [address] [address] MCV (RBC) [Entitic vol] 92.4 fL Normal 79.6-97.7 [facility] Comment on above: Performed By: #### L [id number] #### [facility] (DEFAULT) [address] [place] [address] Mean Cell Hgb 31.1 pg Normal 25.9-33.9 [facility] Comment on above: Performed By: #### L [id number] #### [facility] (DEFAULT) [address] [address] Mean Cell Hgb Conc 33.6 g/dL Normal 31.4-35.9 [facility] Comment on above: Performed By: #### L [id number] #### [facility] (DEFAULT) [address] [address] Monocytes (Bld) [#/Vol] 0.62 10*3/uL Normal 0.22-0.87 [facility] Comment on above: Performed By: #### L [id number] #### [facility] (DEFAULT) [address] [address] Monocytes/100 WBC (Bld) 6.0 % Normal [facility] Comment on above: Performed By: #### L [id number] #### [facility] (DEFAULT) [address] [address] Nucleated RBC 0.0 /100 WBC Normal <=0.2 [facility] Comment on above: Performed By: #### L [id number] #### [facility] (DEFAULT) [address] [address] Platelet mean volume (Bld) [Entitic vol] 10.8 fL Normal 8.5-12.2 [facility] Comment on above: Performed By: #### L [id number] #### [facility] (DEFAULT) [address] [address] Platelets (Bld) [#/Vol] 326 10*3/uL Normal 150-393 [facility] Comment on above: Performed By: #### L [id number] #### [facility] (DEFAULT) [address] [place] [address] RBC (Bld) [#/Vol] 4.60 10*6/uL Normal 3.91-5.04 [facility] Comment on above: Performed By: #### L [id number] #### [facility] (DEFAULT) [address] [place] [address] RBC Distribution 13.1 % Normal 10.8-14.9 [facility] Comment on above: Performed By: #### L [id number] #### [facility] (DEFAULT) [address] [place] [address] Segs + Bands Auto 59.1 % Normal [facility] Comment on above: Performed By: #### L [id number] #### [facility] (DEFAULT) [address] [place] [address] Segs + Bands,Absolute Auto 6.14 K/uL Normal 1.64-7.28 [facility] Comment on above: Performed By: #### L [id number] #### [facility] (DEFAULT) [address] [address] WBC (Bld) [#/Vol] 10.38 10*3/uL Normal 3.99-11.19 [facility] Comment on above: Performed By: #### L [id number] #### [facility] (DEFAULT) [address] [place] [address] Basophils (Bld) [#/Vol] 0.05 10*3/uL 0.00 - 0.15 K/uL [facility] Basophils/100 WBC (Bld) 0.5 % [facility] Differential cell count method Nom (Bld) Electronic Differential [facility] Eosinophils (Bld) [#/Vol] 0.12 10*3/uL 0. 00 - 0.42 K/uL [facility] Eosinophils/100 WBC (Bld) 1.2 % [facility] Erythrocyte distribution width (RBC) [Ratio] 13.1 % 10.8 - 14.9 % [facility] Hematocrit (Bld) [Volume fraction] 42.5 % 34.9 - 44.3 % [facility] Hemoglobin (Bld) [Mass/Vol] 14.3 g/dL 11.4 - 15.2 g/dL [facility] Immature granulocytes (Bld) [#/Vol] K/uL NINF - 0.08 K/uL [facility] Immature granulocytes/100 WBC (Bld) 0.3 % [facility] Lymphocytes (Bld) [#/Vol] 3.42 10*3/uL 1. 16 - 3.51 K/uL [facility] Lymphocytes/100 WBC (Bld) 32.9 % [facility] MCH (RBC) [Entitic mass] 31.1 pg 25. 9 - 33.9 pg [facility] MCHC (RBC) [Mass/Vol] 33.6 g/dL 31.4 - 35.9 g/dL [facility] MCV (RBC) [Entitic vol] 92.4 fL 79.6 - 97.7 fL [facility] Monocytes (Bld) [#/Vol] 0.62 10*3/uL 0.22 - 0.87 K/uL [facility] Monocytes/100 WBC (Bld) 6.0 % [facility] Neutrophils (Bld) [#/Vol] 6.14 10*3/uL 1. 64 - 7.28 K/uL [facility] Nucleated RBC/100 WBC (Bld) [Ratio] 0.0 % BANNERF [facility] Platelet mean volume (Bld) [Entitic vol] 10.8 fL 8.5 - 12.2 fL [facility] Platelets (Bld) [#/Vol] 326 10*3/uL 150 - 393 K/uL [facility] RBC (Bld) [#/Vol] 4.60 10*6/uL [facility] Segmented neutrophils/100 WBC (Bld) 59.1 % [facility] WBC (Bld) [#/Vol] 10.38 10*3/uL 3.99 - 11 .19 K/uL [facility] CMPN WITHOUT GLUCOSEon 01-09 Albumin [Mass/Vol] 4.9 g/dL Normal 3.5-5.0 [facility] Comment on above: Performed By: #### C MPNG #### [facility] (DEFAULT) [address] [address] ALP [Catalytic activity/Vol] 35 U/L Normal 32-126 [facility] Comment on above: Performed By: #### C MPNG #### [facility] (DEFAULT) [address] [address] ALT [Catalytic activity/Vol] 19 U/L Normal 9-48 [facility] Comment on above: Performed By: #### C MPNG #### [facility] (DEFAULT) [address] [address] Anion gap [Moles/Vol] 13 mmol/L Normal 7-17 [facility] Comment on above: Performed By: #### C MPNG #### [facility] (DEFAULT) [address] [address] AST [Catalytic activity/Vol] 18 U/L Normal 10-39 [facility] Comment on above: Performed By: #### C MPNG #### [facility] (DEFAULT) [address] [address] Bilirubin [Mass/Vol] 0.3 mg/dL Normal <1.5 [facility] Comment on above: Performed By: #### C MPNG #### [facility] (DEFAULT) [address] [address] Calcium [Mass/Vol] 9.2 mg/dL Normal 8.6-10.5 [facility] Comment on above: Performed By: #### C MPNG #### [facility] (DEFAULT) [address] [address] Chloride [Moles/Vol] 102 mmol/L Normal 98-108 [facility] Comment on above: Performed By: #### C MPNG #### [facility] (DEFAULT) [address] [address] CO2 [Moles/Vol] 26 mmol/L Normal 21-31 [facility] Comment on above: Performed By: #### C MPNG #### [facility] (DEFAULT) [address] [place] [address] Creatinine [Mass/Vol] 0.64 mg/dL Normal 0.50-1.20 [facility] Comment on above: Performed By: #### C MPNG #### [facility] (DEFAULT) [address] [place] [address] eGFR, CKD-EPI, Female > Normal >=60 [facility] Comment on above: Result Comment: Repo rted eGFR is based on the CKD-EPI 2020 equation using creatinine, age, and sex. Performed By: #### C MPNG #### [facility] (DEFAULT) [address] [place] [address] Potassium [Moles/Vol] 4.0 mmol/L Normal 3.5-5.0 [facility] Comment on above: Performed By: #### C MPNG #### [facility] (DEFAULT) [address] [place] [address] Protein [Mass/Vol] 7.9 g/dL Normal 6.4-8.3 [facility] Comment on above: Performed By: #### C MPNG #### [facility] (DEFAULT) [address] [place] [address] Sodium [Moles/Vol] 137 mmol/L Normal 135-145 [facility] Comment on above: Performed By: #### C MPNG #### [facility] (DEFAULT) [address] [place] [address] Urea nitrogen [Mass/Vol] 12 mg/dL Normal 7-25 [facility] Comment on above: Performed By: #### C MPNG #### [facility] (DEFAULT) [address] [place] [address] Urea nitrogen/Creatinine [Mass ratio] 19 mg/mg Normal [facility] Comment on above: Performed By: #### C MPNG #### [facility] (DEFAULT) [address] [place] [address] HCG ( test) Ql (U)O rdered By: Jamil Snatos on 01-09-2023 Beta HCG ( test) Ql Negative Negative [facility] Interpretation and review of laboratory results Normal [facility] HCG QUALITATIVE, URINEon Beta HCG ( test) Ql (U) Negative Normal Negative [facility] Comment on above: Performed By: #### U HCG #### [facility] (DEFAULT) [address] [address] LAMOTRIGINE LEVELon 01-10-20 23 Lamotrigine, S 4.3 mcg/mL Normal 3.0-15.0 [facility] Comment on above: Result Comment: ADDITIONAL INFORMATION This test was developed and its performance characteristics determined by [facility] in a manner consistent with CLIA requirements. This test has not been cleared or approved by the U.S. Food and Drug Administration. Test Performed by: [facility] [place] [id number] Cathode Washer: Juno Vega M.D. Ph.D.; CLIA# [id number] Performed By: #### Y LAMO #### [facility] (DEFAULT) [address] [place] [address] PT,INR,PTTon 01-09-2023 aPTT Coag (Bld) [Time] 31.1 s Normal 24.0-34.3 [facility] Comment on above: Performed By: #### P TPTT #### [facility] (DEFAULT) [address] [place] [address] INR Coag (PPP) [Relative time] 1.0 {INR} Normal 0.9-1.1 [facility] Comment on above: Performed By: #### P TPTT #### [facility] (DEFAULT) [address] [place] [address] PT Coag (PPP) [Time] 13.0 s Normal 11.9-14.2 [facility] Comment on above: Performed By: #### P TPTT #### [facility] (DEFAULT) [address] [place] [address] aPTT Coag (PPP) [Time] 31.1 s [facility] INR Coag (Bld) [Relative time] 1.0 {INR} 0.9 - 1.1 [facility] Interpretation and review of laboratory results Normal [facility] PT Coag (PPP) [Time] 13.0 s [facility] SCREEN: MRSA/MSSAOrdered By: Alexandra Slater on 01-09-2023 Interpretation and review of laboratory results Abnormal [facility] Methicillin Resistant S. Aureus By Pcr Negative Negative [facility] Staphylococcus Aureus By Pcr Positive Abnormal Negative [facility] This test was performed using a real [...] by the Clinical Microbiology Laboratory at [facility]. It has not been cleared or approved by the FDA.The laboratory is regulated under CLIA as qualified to perform high-complexity testing. This test is used for clinical purposes. It should not be regarded as investigational or for research. [facility] SCREEN: MRSA/MSSAon 01-10-20 Methicillin Resistant S. Aureus By Pcr Negative Normal Negative [facility] Comment on above: Order Comment: [...] by the Clinical Microbiology Laboratory at [facility]. It has not been cleared or approved by the FDA.The laboratory is regulated under CLIA as qualified to perform high-complexity testing. This test is used for clinical purposes. It should not be regarded as investigational or for research. Performed By: #### S CRSB #### [facility] (DEFAULT) [address] [address] Staphylococcus Aureus By Pcr Positive Abnormal Negative [facility] Comment on above: Order Comment: [...] by the Clinical Microbiology Laboratory at [facility]. It has not been cleared or approved by the FDA.The laboratory is regulated under CLIA as qualified to perform high-complexity testing. This test is used for clinical purposes. It should not be regarded as investigational or for research. Performed By: #### S CRSB #### [facility] (DEFAULT) [address] [place] [address] VITAMIN D (25-HYDROXY,TOTAL) on 01-09-2023 25-OH Vitamin D Total 35.2 ng/mL Normal 30.0-100.0 [facility] Comment on above: Order Comment: Vitam in D values have been shown to be falsely decreased in lipemic samples and should be interpreted with caution. Result Comment: <10 Deficiency 10-29 Insufficiency 30-100 Optimal Level >100 Possible Toxicity Performed By: #### D 25OH #### [facility] (DEFAULT) [address] [place] [address] XR Cervical and thoracic and lumbar spine [...] IMPRESSION: Intact vagus nerve stimulator as described. [facility] Radiology Study observation (narrative) [facility] XR Cervical and thoracic and lumbar spine ViewsOrdered By: Alice Crespo on 01-09-2023 [facility] Work Phone: XR STIMULATOR/INTRATHECAL PU MP CERVICAL/THORACIC/LUMBARon [...] Intact vagus nerve stimulator as described. Normal [facility] PROGESTERONEon 05-24-2022 Progesterone 5.5 ng/mL Normal [facility] Comment on above: Result Comment: Foll icular phase 0.1 - 0.9 Luteal phase 1.8 - 23.9 Ovulation phase 0.1 - 12.0 First trimester 11.0 - 44.3 Second trimester 25.4 - 83.3 Third trimester 58.7 - 214.0 Postmenopausal 0.0 - 0.1 Performed By: #### P DANIEL #### [facility] [address] [place] [address] Dr. Nicol Oswald LAMOTRIGINEon 05-02-2022 Lamotrigine, Serum 4.7 ug/mL Normal 2.0-20.0 [facility] Comment on above: Result Comment: Dete ction Limit = 1.0 Performed By: #### P DANIEL #### [facility] [address] [place] [address] Dr. Nicol Oswald CBC AUTO DIFFon 04-30-2022 BASO # 0.0 103/ul Normal 0.0-0.1 [facility] Comment on above: Performed By: #### C BC #### [facility] [address] [place] [address] Dr. Nicol Oswald Basophils/100 WBC (Bld) 0.4 % Normal 0.2-2.0 [facility] Comment on above: Performed By: #### C BC #### [facility] [address] [place] [address] Dr. Nicol Oswald EO # 0.2 103/ul Normal 0.0-0.7 [facility] Comment on above: Performed By: #### C BC #### [facility] [address] [place] [address] Dr. Nicol Oswald Eosinophils/100 WBC (Bld) 1.9 % Normal 0.9-7.0 [facility] Comment on above: Performed By: #### C BC #### [facility] [address] [place] [address] Dr. Nicol Oswald Erythrocyte distribution width (RBC) [Ratio] 12.8 % Normal 11.0-15.0 [facility] Comment on above: Performed By: #### C BC #### [facility] [address] [place] [address] Dr. Nicol Oswald Hematocrit (Bld) [Volume fraction] 40.4 % Normal 36.0-48.0 [facility] Comment on above: Performed By: #### C BC #### [facility] [address] [place] [address] Dr. Nicol Oswald Hemoglobin (Bld) [Mass/Vol] 13.6 g/dL Normal 12.0-16.0 [facility] Comment on above: Performed By: #### C BC #### [facility] [address] [place] [address] Dr. Nicol Oswald IG # 0.03 10e3/ul Normal 0.00-0.03 [facility] Comment on above: Performed By: #### C BC #### [facility] [address] [place] [address] Dr. Nicol Oswald IG % 0.4 % Normal 0.0-0.5 [facility] Comment on above: Performed By: #### C BC #### [facility] [address] [place] [address] Dr. Nicol Oswald LYMPH # 3.1 103/ul Normal 1.2-3.8 [facility] Comment on above: Performed By: #### C BC #### [facility] [address] [place] [address] Dr. Nicol Oswald Lymphocytes/100 WBC (Bld) 36.4 % Normal 20.5-60.0 [facility] Comment on above: Performed By: #### C BC #### [facility] [address] [place] [address] Dr. Nicol Oswald MANUAL DIFF REQ NO Normal [facility] Comment on above: Performed By: #### C BC #### [facility] [address] [address] [address] Nicol Oswald MCH (RBC) [Entitic mass] 31.0 pg Normal 26.7-34.0 [facility] Comment on above: Performed By: #### C BC #### [facility] [address] [place] [address] Dr. Nicol Oswald MCHC (RBC) [Mass/Vol] 33.7 g/dL Normal 29.9-35.2 [facility] Comment on above: Performed By: #### C BC #### [facility] [address] [place] [address] Dr. Nicol Oswald MCV (RBC) [Entitic vol] 92.0 fL Normal 81.0-99.0 [facility] Comment on above: Performed By: #### C BC #### [facility] [address] [place] [address] Dr. Nicol Oswald MONO # 0.7 103/ul Normal 0.3-0.8 [facility] Comment on above: Performed By: #### C BC #### [facility] [address] [place] [address] Dr. Nicol Oswald Monocytes/100 WBC (Bld) 7.7 % Normal 1.7-12.0 [facility] Comment on above: Performed By: #### C BC #### [facility] [address] [place] [address] Dr. Nicol Oswald NEUT # 4.5 103/ul Normal 1.4-6.5 [facility] Comment on above: Performed By: #### C BC #### [facility] [address] [place] [address] Dr. Nicol Oswald Neutrophils/100 WBC (Bld) 53.2 % Normal 43.0-75.0 [facility] Comment on above: Performed By: #### C BC #### [facility] [address] [place] [address] Dr. Nicol Oswald Platelet mean volume (Bld) [Entitic vol] 11.0 fL Normal 9.5-13.5 [facility] Comment on above: Performed By: #### C BC #### [facility] [address] [place] [address] Dr. Nicol Oswald PLT 282 103/ul Normal 150-450 [facility] Comment on above: Performed By: #### C BC #### [facility] [address] [place] [address] Dr. Nicol Oswald RBC 4.39 106/ul Normal 4.20-5.40 [facility] Comment on above: Performed By: #### C BC #### [facility] [address] [place] [address] Dr. Nicol Oswald WBC 8.4 103/ul Normal 4.0-11.0 [facility] Comment on above: Performed By: #### C BC #### [facility] [address] [place] [address] Dr. Nicol Oswald LIVER PROFILEon 04-30-2022 Albumin [Mass/Vol] 4.1 g/dL Normal 3.4-5.0 [facility] Comment on above: Performed By: #### P DANIEL #### [facility] [address] [place] [address] Dr. Nicol Oswald Albumin/Globulin [Mass ratio] 1.2 {ratio} Normal [facility] Comment on above: Performed By: #### P DANIEL #### [facility] [address] [place] [address] Dr. Nicol Oswald ALP [Catalytic activity/Vol] 52 U/L Normal 46-116 [facility] Comment on above: Performed By: #### P DANIEL #### [facility] [address] [place] [address] Dr. Nicol Oswald ALT [Catalytic activity/Vol] 23 U/L Normal 14-59 [facility] Comment on above: Performed By: #### P DANIEL #### [facility] [address] [place] [address] Dr. Nicol Oswald AST [Catalytic activity/Vol] 17 U/L Normal 15-37 [facility] Comment on above: Performed By: #### P DANIEL #### [facility] [address] [address] [address] Nicol Oswald BILI, CONJUGATED 0.1 mg/dL Normal 0.0-0.2 [facility] Comment on above: Performed By: #### P ROGES #### [facility] [address] [address] [address] Nicol Oswald Bilirubin [Mass/Vol] 0.2 mg/dL Normal 0.2-1.0 [facility] Comment on above: Performed By: #### P ROGES #### [facility] [address] [address] [address] Nicol Oswald Globulin (S) [Mass/Vol] 3.4 g/dL Normal [facility] Comment on above: Performed By: #### P DANIEL #### [facility] [address] [place] [address] Dr. Nicol Oswald Protein [Mass/Vol] 7.5 g/dL Normal 6.4-8.2 [facility] Comment on above: Performed By: #### P ROGES #### [facility] [address] [place] [address] Dr. Nicol Oswald PROF CHEM 8 (BAS METB)on Anion gap [Moles/Vol] 8.5 mmol/L Normal [facility] Comment on above: Performed By: #### P DANIEL #### [facility] [address] [place] [address] Dr. Nicol Oswald Calcium [Mass/Vol] 9.4 mg/dL Normal 8.5-10.1 [facility] Comment on above: Performed By: #### P ROGES #### [facility] [address] [place] [address] Dr. Nicol Oswald Chloride [Moles/Vol] 102 mmol/L Normal 98-107 [facility] Comment on above: Performed By: #### P ROGES #### [facility] [address] [place] [address] Dr. Nicol Oswald CO2 [Moles/Vol] 30.4 mmol/L Normal 21.0-32.0 [facility] Comment on above: Performed By: #### P DANIEL #### [facility] [address] [address] [address] Nicol Oswald Creatinine [Mass/Vol] 0.57 mg/dL Normal 0.55-1.02 [facility] Comment on above: Performed By: #### P DANIEL #### [facility] [address] [address] [address] Nicol Oswald EGFR-AF GAMBIAN >60 Normal >=60 [facility] Comment on above: Performed By: #### P ROGES #### [facility] [address] [address] [address] Nicol Oswald EGFR-NON AF GAMBIAN >60 Normal >=60 [facility] Comment on above: Performed By: #### P ROGLYNDA #### [facility] [address] [address] [address] Nicol Oswald Glucose [Mass/Vol] 89 mg/dL Normal 74-106 [facility] Comment on above: Performed By: #### P DANIEL #### [facility] [address] [address] [address] Nicol Oswald Potassium [Moles/Vol] 3.9 mmol/L Normal 3.5-5.1 [facility] Comment on above: Performed By: #### P DANIEL #### [facility] [address] [address] [address] Nicol Oswald Sodium [Moles/Vol] 137 mmol/L Normal 136-145 [facility] Comment on above: Performed By: #### P DANIEL #### [facility] [address] [address] [address] Nicol Oswald Urea nitrogen [Mass/Vol] 10.0 mg/dL Normal 7.0-18.0 [facility] Comment on above: Performed By: #### P DANIEL #### [facility] [address] [address] [address] Nicol Oswald Urea nitrogen/Creatinine [Mass ratio] 17.5 mg/mg Normal [facility] Comment on above: Performed By: #### P DANIEL #### [facility] [address] [address] [address] Nicol Oswald ESTROGENon 04-19-2022 Estrogens, Total 124 pg/mL Normal [facility] Comment on above: Result Comment: Prep ubertal < 40 Female Cycle: 1-10 Days 16 - 328 11-20 Days 34 - 501 21-30 Days 48 - 350 Post-Menopausal 40 - 244 Performed By: #### Elli ESPINAL #### [facility] [address] [address] [address] Nicol Oswald DHEA SERUMon 04-18-2022 Dehydroepiandrosterone (DHEA) 371 ng/dL Normal 31-701 [facility] Comment on above: Result Comment: Age [...] 89 Performed By: #### P DANIEL #### [facility] [address] [address] [address] Nicol Oswald DHEA-SULFATEon 04-16-2022 DHEA-Sulfate 371.0 ug/dL Normal 84.8-378.0 [facility] Comment on above: Performed By: #### Tenzin SANCHEZ #### [facility] [address] [place] [address] Dr. Nicol Oswald FSHon 04-16-2022 FSH 5.6 mIU/mL Normal [facility] Comment on above: Result Comment: Adul t Female: Follicular phase 3.5 - 12.5 Ovulation phase 4.7 - 21.5 Luteal phase 1.7 - 7.7 Postmenopausal 25.8 - 134.8 Performed By: #### P DANIEL #### [facility] [address] [place] [address] Dr. Nicol Oswald LUTEINIZING HORMONE (LH)on 0 04-16-2022 LH 12.9 mIU/mL Normal [facility] Comment on above: Result Comment: Adul t Female: Follicular phase 2.4 - 12.6 Ovulation phase 14.0 - 95.6 Luteal phase 1.0 - 11.4 Postmenopausal 7.7 - 58.5 Performed By: #### P ROGES #### [facility] [address] [place], [place] [address] Dr. Nicol Oswald PROGESTERONEon 04-16-2022 Progesterone 0.2 ng/mL Normal [facility] Comment on above: Result Comment: Foll icular phase 0.1 - 0.9 Luteal phase 1.8 - 23.9 Ovulation phase 0.1 - 12.0 First trimester 11.0 - 44.3 Second trimester 25.4 - 83.3 Third trimester 58.7 - 214.0 Postmenopausal 0.0 - 0.1 Performed By: #### P DANIEL #### [facility] [address] [place], [place] [address] Dr. Niocl Oswald PROLACTINon 04-16-2022 Prolactin 7.1 ng/mL Normal 4.8-23.3 [facility] Comment on above: Performed By: #### P ROLAC #### [facility] [address] [place], [place] [address] Dr. Nicol Oswald US PELVIS AND TRANSVAGon [...] CYDNEY VALDEZ Date: 2022-04-16 08:48 Normal [facility] CBC AUTO DIFFon 04-15-2022 BASO # 0.0 103/ul Normal 0.0-0.1 [facility] Comment on above: Performed By: #### C BC #### [facility] [address] [place] [address] Dr. Nicol Oswald Basophils/100 WBC (Bld) 0.5 % Normal 0.2-2.0 [facility] Comment on above: Performed By: #### C BC #### [facility] [address] [place] [address] Dr. Nicol Oswald EO # 0.2 103/ul Normal 0.0-0.7 [facility] Comment on above: Performed By: #### C BC #### [facility] [address] [place] [address] Dr. Nicol Oswald Eosinophils/100 WBC (Bld) 2.1 % Normal 0.9-7.0 [facility] Comment on above: Performed By: #### C BC #### [facility] [address] [place] [address] Dr. Nicol Oswald Erythrocyte distribution width (RBC) [Ratio] 12.5 % Normal 11.0-15.0 [facility] Comment on above: Performed By: #### C BC #### [facility] [address] [place] [address] Dr. Nicol Oswald Hematocrit (Bld) [Volume fraction] 44.7 % Normal 36.0-48.0 [facility] Comment on above: Performed By: #### C BC #### [facility] [address] [place] [address] Dr. Nicol Oswald Hemoglobin (Bld) [Mass/Vol] 14.3 g/dL Normal 12.0-16.0 [facility] Comment on above: Performed By: #### C BC #### [facility] [address] [place] [address] Dr. Nicol Oswald IG # 0.01 10e3/ul Normal 0.00-0.03 [facility] Comment on above: Performed By: #### C BC #### [facility] [address] [place] [address] Dr. Nicol Oswald IG % 0.1 % Normal 0.0-0.5 [facility] Comment on above: Performed By: #### C BC #### [facility] [address] [place] [address] Dr. Nicol Oswald LYMPH # 2.0 103/ul Normal 1.2-3.8 [facility] Comment on above: Performed By: #### C BC #### [facility] [address] [place] [address] Dr. Nicol Oswald Lymphocytes/100 WBC (Bld) 26.0 % Normal 20.5-60.0 [facility] Comment on above: Performed By: #### C BC #### [facility] [address] [place] [address] Dr. Nicol Oswald MANUAL DIFF REQ NO Normal [facility] Comment on above: Performed By: #### C BC #### [facility] [address] [place] [address] Dr. Nicol Oswald MCH (RBC) [Entitic mass] 30.8 pg Normal 26.7-34.0 [facility] Comment on above: Performed By: #### C BC #### [facility] [address] [place] [address] Dr. Nicol Oswald MCHC (RBC) [Mass/Vol] 32.0 g/dL Normal 29.9-35.2 [facility] Comment on above: Performed By: #### C BC #### [facility] [address] [place] [address] Dr. Nicol Oswald MCV (RBC) [Entitic vol] 96.3 fL Normal 81.0-99.0 [facility] Comment on above: Performed By: #### C BC #### [facility] [address] [place] [address] Dr. Nicol Oswald MONO # 0.6 103/ul Normal 0.3-0.8 [facility] Comment on above: Performed By: #### C BC #### [facility] [address] [place] [address] Dr. Nicol Oswald Monocytes/100 WBC (Bld) 7.3 % Normal 1.7-12.0 [facility] Comment on above: Performed By: #### C BC #### [facility] [address] [place] [address] Dr. Nicol Oswald NEUT # 4.9 103/ul Normal 1.4-6.5 [facility] Comment on above: Performed By: #### C BC #### [facility] [address] [place] [address] Dr. Nicol Oswald Neutrophils/100 WBC (Bld) 64.0 % Normal 43.0-75.0 [facility] Comment on above: Performed By: #### C BC #### [facility] [address] [place] [address] Dr. Nicol Oswald Platelet mean volume (Bld) [Entitic vol] 11.3 fL Normal 9.5-13.5 [facility] Comment on above: Performed By: #### C BC #### [facility] [address] [place] [address] Dr. Nicol Oswald PLT 302 103/ul Normal 150-450 [facility] Comment on above: Performed By: #### C BC #### [facility] [address] [place] [address] Dr. Nicol Oswald RBC 4.64 106/ul Normal 4.20-5.40 [facility] Comment on above: Performed By: #### C BC #### [facility] [address] [place] [address] Dr. Nicol Oswald WBC 7.7 103/ul Normal 4.0-11.0 [facility] Comment on above: Performed By: #### C BC #### [facility] [address] [place] [address] Dr. Nicol Oswald FREE T4on 04-15-2022 Free T4 [Mass/Vol] 0.80 ng/dL Normal 0.76-1.46 [facility] Comment on above: Performed By: #### F T4 #### [facility] [address] [place] [address] Dr. Nicol Oswald GLYCOHEMOGLOBIN A1Con 2022 ADA RECOMMENDATION SEE BELOW Normal [facility] Comment on above: Result Comment: ADA RECOMMENDED LIMIT 4.0 - 6.0 ADA THERAPEUTIC TARGET < 7.0 ACTION SUGGESTED > 7.0 Performed By: #### A 1C #### [facility] [address] [place] [address] Dr. Nicol Oswald Glucose [Mass/Vol] 114 mg/dL Normal [facility] Comment on above: Performed By: #### A 1C #### [facility] [address] [place] [address] Dr. Nicol Oswald HbA1c (Bld) [Mass fraction] 5.6 % Normal 4.5-6.2 [facility] Comment on above: Performed By: #### A 1C #### [facility] [address] [place] [address] Dr. Nicol Oswald PREG QUANT HCGon 04-15-2022 HCG QUANT <1 Normal [facility] Comment on above: Performed By: #### P REGQNT, TSH #### [facility] [address] [place] [address] Dr. Nicol Oswald HCG RANGE SEE BELOW Normal [facility] Comment on above: Result Comment: 5-50 0.2-1 WEEK 50-500 1-2 WEEKS 100-5,000 2-3 WEEKS 500-10,000 3-4 WEEKS 1,000-50,000 4-5 WEEKS 10,000-100,000 5-6 WEEKS 15,000-200,000 6-8 WEEKS 10,000-100,000 2-3 MONTHS Performed By: #### P REGQNT, TSH #### [facility] [address] [place] [address] Dr. Nicol Oswald TSHon 04-15-2022 TSH 1.312 uIU/mL Normal 0.358-3.740 [facility] Comment on above: Performed By: #### P REGQNT, TSH #### [facility] [address] [place] [address] Dr. Nicol Oswald PAP ACOG PANEL 2: 21 to 29on 08-31-2021 . . Normal [facility] Comment on above: Performed By: #### P JASONES #### [facility] [address] [address] [address] Nicol Oswald Age Gdln ACOG Testing 21-29 Normal [facility] Comment on above: Performed By: #### P ROGES #### [facility] [address] [address] [address] Nicol Oswald DIAGNOSIS: Comment Normal [facility] Comment on above: Result Comment: NEGA TIVE FOR INTRAEPITHELIAL LESION OR MALIGNANCY. THIS SPECIMEN WAS RESCREENED PART OF OUR [employer] PROGRAM. Performed By: #### P ROGES #### [facility] [address] [address] [address] Nicol Oswald Methodology: Comment [facility] Comment on above: Result Comment: This liquid based ThinPrep(R) pap test was screened with the use of an image guided system. Performed By: #### P DANIEL #### [facility] [address] [place] [address] Dr. Nicol Oswald Note: Comment Normal [facility] Comment on above: Result Comment: The Pap smear is a screening test designed to aid in the detection of premalignant and malignant conditions of the uterine cervix. It is not a diagnostic procedure and should not be used as the sole means of detecting cervical cancer. Both false-positive and false-negative reports do occur. . Performed By: #### P DANIEL #### [facility] [address] [place] [address] Dr. Nicol Oswald Performed by: Comment Normal [facility] Comment on above: Result Comment: Mireille Blanco, Cylindrical Mixer (ASCP) Performed By: #### P DANIEL #### [facility] [address] [place] [address] Dr. Nicol Oswald QC reviewed by: Comment Normal [facility] Comment on above: Result Comment: Tahira Roque Cylindrical Mixer (ASCP) Performed By: #### P DANIEL #### [facility] [address] [place] [address] Dr. Nicol Oswald Reflex Criteria: Comment [facility] Comment on above: Result Comment: The HPV DNA reflex criteria were not met with this specimen result therefore, no HPV testing was performed. . Performed By: #### P DANIEL #### [facility] [address] [place], [place] [address] Dr. Nicol Oswald Specimen adequacy: Comment Normal [facility] Comment on above: Result Comment: Sati sfactory for evaluation. Endocervical and/or squamous metaplastic cells (endocervical component) are present. Performed By: #### P DANIEL #### [facility] [address] [address] [address] Nicol Oswald CBC Auto Diff Reflex Manualo n 02-18-2019 Automated Absolute Neutrophil 5.73 10*3/mm3 Normal [facility] Comment on above: Result Comment: Auto mated Absolute Neutrophil Count (ANC) is directly measured using a hematology instrument. ANC determined from manual differential cell count may differ. No [facility] reference range has been validated for this assay. Performed By: #### C D #### [place] [address] Basophil 0.5 % Normal 0.0-1.0 [facility] Comment on above: Performed By: #### C D #### [place] [address] Differential Type Automated Normal [facility] Comment on above: Performed By: #### C D #### [place] [address] Eosinophil 1.6 % Normal 1.0-4.0 [facility] Comment on above: Performed By: #### C D #### [place] [address] Erythrocyte distribution width (RBC) [Ratio] 13.4 % Normal 10-14.1 [facility] Comment on above: Performed By: #### C D #### [place] [address] Lymphocyte 22.6 % Low 24.0-44.0 [facility] Comment on above: Performed By: #### C D #### [place] [address] MCH (RBC) [Entitic mass] 30.7 pg Normal 26-34 [facility] Comment on above: Performed By: #### C D #### [place] [address] MCHC (RBC) [Mass/Vol] 33.2 % Normal 31.0-37.0 [facility] Comment on above: Performed By: #### C D #### [place] [address] MCV (RBC) [Entitic vol] 92.4 fL Normal 80-100 [facility] Comment on above: Performed By: #### C D #### [place] [address] Monocyte 8.2 % High 1.0-7.0 [facility] Comment on above: Performed By: #### C D #### [place] [address] Neutrophil 67.1 % Normal 41.0-77.0 [facility] Comment on above: Performed By: #### C D #### [place] [address] Platelet mean volume (Bld) [Entitic vol] 11.5 fL Normal 9.3-13.0 [facility] Comment on above: Performed By: #### C D #### [place] [address] Platelets (Bld) [#/Vol] 268 10*3/uL Normal 140-440 [facility] Comment on above: Performed By: #### C D #### [place] [address] RBC (Bld) [#/Vol] 4.60 10*6/uL Normal 4.0-5.2 [facility] Comment on above: Performed By: #### C D #### [place] [address] WBC (Bld) [#/Vol] 8.6 10*3/uL Normal 4.5-11 [facility] Comment on above: Performed By: #### C D #### [place] [address] Comprehensive Metabolic Pane alexandr 02-18-2019 Albumin [Mass/Vol] 4.7 g/dL Normal 3.4-5.2 [facility] ALP [Catalytic activity/Vol] 47 U/L Low 50-136 [facility] ALT [Catalytic activity/Vol] 32 U/L Normal <40 [facility] AST [Catalytic activity/Vol] 29 U/L Normal 15-50 [facility] Bilirubin Ql (U) 0.2 mg/dL Normal 0.1-1.0 [facility] Calcium [Mass/Vol] 9.8 mg/dL Normal 8-10.5 [facility] Chloride [Moles/Vol] 104 mmol/L Normal 95-106 [facility] CO2 [Moles/Vol] 25 mmol/L Normal 24-35 [facility] Creatinine [Mass/Vol] 0.52 mg/dL Normal 0.5-1 [facility] Glucose [Mass/Vol] 135 mg/dL High 60-115 [facility] Potassium [Moles/Vol] 4.5 mmol/L Normal 3.7-5.3 [facility] Protein [Mass/Vol] 8.0 g/dL Normal 6.4-8.4 [facility] Sodium [Moles/Vol] 140 mmol/L Normal 135-145 [facility] Urea nitrogen [Mass/Vol] 15 mg/dL Normal 5-18 [facility] Valproic Acidon 02-18-2019 Valproic Acid 47.1 ug/mL Low 50.0-100.0 [facility] PAP, THIN PREP WITH IMAGINGo n 06-29-2018 PAP, THIN PREP WITH IMAGING Normal [facility] Comment on above: Result Comment: INTE RPRETATION Thin Prep Image-Guided Pap Test (Cervical/Endocervical) NEGATIVE FOR INTRAEPITHELIAL LESION /MALIGNANCY Satisfactory for evaluation (Endocervical/transformation zone component present) [facility]/06/27/2018 The Pap test is a screening test, [...] 05/18/18 ICD-CM DIAGNOSIS CODE(S) Z01.419 Encntr For Province Archivist Exam (general) (routine) W/o Abn Findings * EFFECTIVE 06/08/2018 * * CLINICAL CHEMISTRY PLATFORM CHANGES ARE ASSOCIATED WITH * * REFERENCE RANGE CHANGES FOR A NUMBER OF ANALYTES. PLEASE * * REVIEW REFERENCE INTERVALS CAREFULLY * Pathology [employer] [address] [place] [address] CLIA No. [id number] CAP Accreditation No. [id number] Grinder Chipper: Johnson Garland M.D. [employer] Accession Number: [id number] Performed By: #### P L PAP W/IMAGE #### [address] [id number] [address] Nucleic-Acid Probe-Endoce rvical Swabon 06-24-2018 CT Nucleic-Acid Probe-Endocervical Swab Negative Normal NEGATIVE [facility] Comment on above: Performed By: #### G C Amp Endocerv, CT Amp Endocerv #### [address] [address] Age at specimen collection = Normal [facility] Comment on above: Performed By: #### G C Amp Endocerv, CT Amp Endocerv #### [address] [id number] Performed By: #### P L PAP W/IMAGE #### [facility] [address] [place], [place] [id number] GC Nucleic-Acid Probe-Endoce rvical Swabon 06-24-2018 GC Nucleic-Acid Probe-Endocervical Swab Negative Normal NEGATIVE [facility] Comment on above: Performed By: #### G C Amp Endocerv, CT Amp Endocerv #### [facility] [address] [place], [place] [address] Platelet Functionon 03-24-19 19 Collagen/ADP 148 sec High 67-112 [facility] Comment on above: Performed By: #### P FA #### [facility] [address] [place] [address] Collagen/EPI 228 sec High 85-172 [facility] Comment on above: Performed By: #### P FA #### [facility] [address] [place] [address] Interpretation Abnormal platelet function. Normal [facility] Comment on above: Result Comment: Comm [...] established. Performed By: #### P FA #### [facility] [address] [place] [address] XR ANKLE RIGHT STANDARDon XR ANKLE RIGHT STANDARD Radiology exam i s complete. No Radiologist dictation. Please follow up with ordering provider. Final result Normal [facility] Vital Signs Date Time Vital Sign Value Performing Clinician Facility 04-22-2023 13:04-0500 Body mass index (BMI) [Ratio] 34 kg/m2 Donovan Kimmie DO Work Phone: [facility] 04-22-2023 13:04-0500 Body weight 88.45 kg Donovan Kimmie DO Work Phone: [facility] 04-22-2023 13:04-0500 Diastolic blood pressure 78 mm[Hg] Donovan Kimmie DO Work Phone: [facility] 04-22-2023 13:04-0500 Systolic blood pressure 120 mm[Hg] Donovan Kimmie DO Work Phone: [facility] 02-14-2023 15:48-0500 Body height 161.3 cm Crystal Raoul CLINICAL PROVIDER TRAINER-ELECTRONICS TECHNICIAN APPRENTICE Work Phone: [facility] Comment on above: verbal 02-14-2023 15:48-0500 Body mass index (BMI) [Ratio] 34.82 kg/m2 Crystal Raoul CLINICAL PROVIDER TRAINER-ELECTRONICS TECHNICIAN APPRENTICE Work Phone: [facility] 02-14-2023 15:48-0500 Body temperature 97.9 [degF] Crystal Raoul CLINICAL PROVIDER TRAINER-ELECTRONICS TECHNICIAN APPRENTICE Work Phone: [facility] 02-14-2023 15:48-0500 Body weight 90.58 kg Crystal Raoul CLINICAL PROVIDER TRAINER-ELECTRONICS TECHNICIAN APPRENTICE Work Phone: [facility] 02-14-2023 15:48-0500 Diastolic blood pressure 79 mm[Hg] Crystal Raoul CLINICAL PROVIDER TRAINER-ELECTRONICS TECHNICIAN APPRENTICE Work Phone: [facility] 02-14-2023 15:48-0500 Heart rate 107 /min Crystal Raoul CLINICAL PROVIDER TRAINER-ELECTRONICS TECHNICIAN APPRENTICE Work Phone: [facility] 02-14-2023 15:48-0500 Systolic blood pressure 133 mm[Hg] Crystal Raoul CLINICAL PROVIDER TRAINER-ELECTRONICS TECHNICIAN APPRENTICE Work Phone: [facility] 01-15-2023 13:50-0500 Body temperature 97.5 [degF] Evy Verma MD Work Phone: 7(510)[phone] [place] [address] 01-15-2023 13:50-0500 Diastolic blood pressure 79 mm[Hg] Evy Verma MD Work Phone: [facility] 01-15-2023 13:50-0500 Heart rate 78 /min Evy Verma MD Work Phone: 9(393)784-127262 [place] [address] 01-15-2023 13:50-0500 Respiratory rate 16 /min Evy Verma MD Work Phone: 3(615)[phone] [address] 01-15-2023 13:50-0500 SaO2% (BldA) [Mass fraction] 98 % Evy Verma MD Work Phone: 8(104)[phone] [place] [address] 01-15-2023 13:50-0500 Systolic blood pressure 117 mm[Hg] Evy Verma MD Work Phone: 4(131)[phone] [place] [address] 01-15-2023 07:50-0500 Body height 161.3 cm Evy Verma MD Work Phone: 2(435)[phone] [address] 01-15-2023 07:50-0500 Body mass index (BMI) [Ratio] 34.37 kg/m2 Evy Verma MD Work Phone: [facility] 01-15-2023 07:50-0500 Body weight 89.4 kg Evy Verma MD Work Phone: [facility] 01-09-2023 08:39-0400 Body height 161.3 cm Esau Hernandez PAC Work Phone: [facility] 01-09-2023 08:39-0400 Body mass index (BMI) [Ratio] 33.65 kg/m2 Esau Hernandez PAC Work Phone: [facility] 01-09-2023 08:39-0400 Body temperature 98.49 [degF] Esau Hernandez PAC Work Phone: [facility] 01-09-2023 08:39-0400 Body weight 87.54 kg Esau Hernandez PAC Work Phone: [facility] 01-09-2023 08:39-0400 Diastolic blood pressure 80 mm[Hg] Esau Hernandez PAC Work Phone: [facility] 01-09-2023 08:39-0400 Heart rate 81 /min Esau Hernandez PAC Work Phone: [facility] 01-09-2023 08:39-0400 Respiratory rate 18 /min Esau Hernandez PAC Work Phone: [facility] 01-09-2023 08:39-0400 SaO2% (BldA) [Mass fraction] 98 % Esau Hernandez PAC Work Phone: [facility] 01-09-2023 08:39-0400 Systolic blood pressure 134 mm[Hg] Esau Hernandez PAC Work Phone: [facility] 12-10-2022 10:53-0400 Body height 160 cm Evy Verma MD Work Phone: [facility] 12-10-2022 10:53-0400 Body mass index (BMI) [Ratio] 34.19 kg/m2 Evy Verma MD Work Phone: [facility] 12-10-2022 10:53-0400 Body weight 87.54 kg Evy Verma MD Work Phone: [facility] 12-10-2022 10:53-0400 Diastolic blood pressure 63 mm[Hg] Evy Verma MD Work Phone: [facility] 12-10-2022 10:53-0400 Heart rate 65 /min Evy Verma MD Work Phone: [facility] 12-10-2022 10:53-0400 Systolic blood pressure 125 mm[Hg] Evy Verma MD Work Phone: [facility] 11-08-2022 16:21-0400 Body height 160 cm Riana Chinchilla CLINICAL PROVIDER TRAINER-ELECTRONICS TECHNICIAN APPRENTICE Work Phone: [facility] Comment on above: verbal 11-08-2022 16:21-0400 Body mass index (BMI) [Ratio] 34.26 kg/m2 Crystal Raoul CLINICAL PROVIDER TRAINER-ELECTRONICS TECHNICIAN APPRENTICE Work Phone: [facility] 11-08-2022 16:21-0400 Body temperature 99.1 [degF] Crystal Raoul CLINICAL PROVIDER TRAINER-ELECTRONICS TECHNICIAN APPRENTICE Work Phone: [facility] 11-08-2022 16:21-0400 Body weight 87.73 kg Riana Raoul CLINICAL PROVIDER TRAINER-ELECTRONICS TECHNICIAN APPRENTICE Work Phone: [facility] 11-08-2022 16:21-0400 Diastolic blood pressure 71 mm[Hg] Crystal Raoul CLINICAL PROVIDER TRAINER-ELECTRONICS TECHNICIAN APPRENTICE Work Phone: [facility] 11-08-2022 16:21-0400 Heart rate 97 /min Riana Chinchilla CLINICAL PROVIDER TRAINER-ELECTRONICS TECHNICIAN APPRENTICE Work Phone: [facility] 11-08-2022 16:21-0400 Systolic blood pressure 116 mm[Hg] Riana De La Cruzley CLINICAL PROVIDER TRAINER-ELECTRONICS TECHNICIAN APPRENTICE Work Phone: [facility] 07-04-2021 09:38-0400 Body height 161.3 cm Riana Chinchilla CLINICAL PROVIDER TRAINER-ELECTRONICS TECHNICIAN APPRENTICE Work Phone: [facility] Comment on above: verbal 07-04-2021 09:38-0400 Body mass index (BMI) [Ratio] 36.23 kg/m2 Riana Raoul CLINICAL PROVIDER TRAINER-ELECTRONICS TECHNICIAN APPRENTICE Work Phone: [facility] 07-04-2021 09:38-0400 Body temperature 98.71 [degF] Crystal Raoul CLINICAL PROVIDER TRAINER-ELECTRONICS TECHNICIAN APPRENTICE Work Phone: [facility] 07-04-2021 09:38-0400 Body weight 94.26 kg Riana Raoul CLINICAL PROVIDER TRAINER-ELECTRONICS TECHNICIAN APPRENTICE Work Phone: [facility] 07-04-2021 09:38-0400 Diastolic blood pressure 70 mm[Hg] Riana Chinchilla CLINICAL PROVIDER TRAINER-ELECTRONICS TECHNICIAN APPRENTICE Work Phone: [facility] 07-04-2021 09:38-0400 Heart rate 73 /min Riana Chinchilla CLINICAL PROVIDER TRAINER-ELECTRONICS TECHNICIAN APPRENTICE Work Phone: [facility] 07-04-2021 09:38-0400 Systolic blood pressure 119 mm[Hg] Riana Chinchilla CLINICAL PROVIDER TRAINER-ELECTRONICS TECHNICIAN APPRENTICE Work Phone: [facility] Encounters Encounter Date Encounter Type Care Provider Facility Start: 04-22-2023 End: 04-22-2023 ambulatory DONOVAN JONESZIO Not Available Start: 04-22-2023 End: 04-22-2023 Office outpatient visit 15 minutes Donovan Joneszio DO Work Phone: [facility] Comment on above: Encounter for fertil ity planning Start: 02-14-2023 ambulatory TIM ROLON Facility: [facility] Start: 02-14-2023 End: 02-14-2023 Office outpatient visit 25 minutes Riana Chinchilla CLINICAL PROVIDER TRAINER-ELECTRONICS TECHNICIAN APPRENTICE Work Phone: [facility] 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); 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 Start: 01-15-2023 End: 01-15-2023 ambulatory EVY VERMA Facility:[facility] Start: 01-15-2023 End: 01-15-2023 Subsequent hospital visit by physician Evy Verma MD Work Phone: [facility] 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 Start: 01-09-2023 ambulatory TIM ROLON Facility: [facility] Start: 01-09-2023 Encounter for other preprocedural examination ESAU HERNANDEZ Facility:[facility] Start: 01-09-2023 End: 01-09-2023 Office consultation new/estab patient 60 min Esau Hernandez PAC Work Phone: Pre-Procedure Evaluation and [facility] Comment on above: Preop exam for inter nal medicine (Primary Dx); Jeavons syndrome; 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 Start: 01-09-2023 End: 01-09-2023 Patient encounter status Esau Hernandez PAC Work Phone: [facility] Start: 01-09-2023 End: 01-09-2023 Subsequent hospital visit by physician Evy Verma MD Work Phone: Imaging [facility] Comment on above: Arrived Start: 12-10-2022 ambulatory EVY VERMA Facility:[facility] Start: 12-10-2022 End: 12-10-2022 Office outpatient new 45 minutes Evy Verm[facility] MD [facility] [place] [facility] 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) Start: 11-27-2022 ambulatory TIM ROLON Facility: [facility] Start: 11-19-2022 ambulatory [facility] Facility: [facility] Start: 11-14-2022 ambulatory [facility] Facility: [facility] Start: 11-08-2022 ambulatory TIM HAYLIE Facility: [facility] Start: 11-08-2022 End: 11-08-2022 Office outpatient visit 40 minutes Riana Chinchilla CLINICAL PROVIDER TRAINER-ELECTRONICS TECHNICIAN APPRENTICE Work Phone: Neurology [facility] 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) Start: 09-19-2022 ambulatory TIM HAYLIE Facility: [facility] Start: 09-13-2022 ambulatory RIANA CHINCHILLA Facilit y:[facility] Start: 05-23-2022 End: 05-24-[address] DONOVAN BURKS . Facility:[facility] Start: 05-01-2022 ambulatory EVY VERMA Facility:[facility] Start: 04-30-2022 End: 05-01-[address] DOCTOR ASHTON Facility:[facility] Start: 04-19-2022 ambulatory CORI Ham y:[facility] Start: 04-16-2022 End: 04-17-[address] DONOVAN BURKS . Facility:[facility] Start: 04-15-2022 End: 04-16-[address] DONOVAN BURKS . Facility:[facility] Start: 08-27-2021 End: 08-27-[address] DONOVAN BURKS . Facility: Start: 07-04-2021 End: 07-04-2021 Office outpatient visit 25 minutes Riana Chinchilla CLINICAL PROVIDER TRAINER-ELECTRONICS TECHNICIAN APPRENTICE Work Phone: Neurology [facility] Comment on above: Generalized nonconvu lsive epilepsy (Primary Dx) Start: 06-24-2018 Encounter for gynecological examination (general) (routine) without abnormal findings NA NONE PER PATIENT [facility] Start: 06-24-2018 End: 06-24-2018 Patient encounter procedure GERARDO WARD Facility:[facility] Start: 05-25-2018 End: 05-25-2018 Patient encounter procedure . NONE PER PATIENT Facility:[facility] Start: 05-13-2018 End: 05-13-2018 Patient encounter procedure . NONE PER PATIENT Facility:[facility] Start: 03-23-2018 End: 03-24-2018 Patient encounter procedure [facility] Start: 03-20-2018 End: 03-21-2018 Patient encounter procedure [facility] Procedures Date Procedure Procedure Detail Performing Clinician Start: 01-15-2023 CARDIAC RHYTHM Other Ot her Start: 01-15-2023 Gonadotropin chorion ic qualitative Evy Verma MD Work Phone: Start: 01-09-2023 CBC AND ELECTRONIC DIFF Esau Lion Hernandez PAC Work Phone: Start: 01-09-2023 Complete blood count with white cell differential, automated Esau Lion Hernandez PAC Work Phone: Start: 01-09-2023 Prothrombin time Esau Lion Hernandez PAC Work Phone: Start: 01-09-2023 Radex spine cervical 2 or 3 views Evy Verma MD Work Phone: Start: 01-09-2023 Iadna s aureus ampli fied probe tq Esau Lion Hernandez PAC Work Phone: Start: 01-09-2023 Urine test visual color cmprsn meths Esau Lion Hernandez PAC Work Phone: Start: 02-18-2019 Blood count hematocrit Comment on above: Performed By: #### C D #### Performed at [facility], [address] [place] [address] Start: 03-23-2018 PLATELET FUNCTION TEST JAMIL SMITH Plan of Treatment Date Care Activity Detail Author Start: 08-21-2023 End: 08-21-2023 Patient encounter procedure 08/21/2023 2:45 PM EDT Office Visit Neurology [facility] [address] [facility] [address] [phone] Cori Arriaga, [address] [place] [address] Neurology [facility] Start: 05-28-2023 End: 05-28-2023 Patient encounter procedure 05/28/2023 2:00 PM EDT Office Visit Neurology [facility] [address] [facility] [address] [place] [address] Riana Chinchilla, CLINICAL PROVIDER TRAINER-ELECTRONICS TECHNICIAN APPRENTICE [address] [phone] Neurology [facility] Start: 02-14-2023 End: 02-14-2023 Patient encounter procedure Neurology [facility] Start: 01-15-2023 End: 01-15-2023 Admission to same day surgery center 01/15/2023 9:40 AM EST - 01/15/2023 11:50 AM EST Surgery [facility] [address] [place] [phone] Evy Verma MD [address] [place] [phone] INSERTION REPLACEMENT NEUROSTIMULATOR GENERATOR CRANIAL/INTRACRANIAL [facility] Comment on above: INSERTION REPLACEMENT NEUROSTIMULATOR GE NERATOR CRANIAL/INTRACRANIAL Start: 01-15-2023 End: 01-15-2023 Insj/rplcmt cranial neurostim pulse generator INSERTION REPLACEMENT NEUROSTIMULATOR GENERATOR CRANIAL/INTRACRANIAL Jeavons syndrome 01/15/2023 9:40 AM EST [facility] Start: 01-15-2023 Subsequent hospital visit by physician 01/15/2023 9:40 AM EST Hospital Encounter [facility] [address] [place] [address] Evy Vemra MD [address] [facility] [place] [phone] Jeavons syndrome [facility] 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 Start: 12-10-2022 End: 12-11-2023 Radiographic imaging procedure XR STIMULATOR/INTRATHECAL PUMP Imaging Routine Jeavons syndrome Expected: 12/10/2022, Expires: 12/11/2023 [facility] Comment on above: Expected: 12/10/2022, Expires: Start: 12-10-2022 End: 12-10-2022 Patient encounter procedure 12/10/2022 11:30 AM EDT Office Visit [facility] Neuromodulation [address] [place] [address] Evy Verma MD [address] [place] [address], [place] [phone] [facility] Start: 11-08-2022 Influenza vaccination INFLUENZA VACCINE (#1) [facility] Start: 01-04-2022 End: 01-04-2022 Patient encounter procedure 01/04/2022 Office Visit Neurology Cori Arriaga, [address] [place] [address] Neurology [facility] Start: 11-08-2021 Influenza vaccination INFLUENZA VACCINE (Season Ended) [facility] Start: 10-10-2021 End: 10-10-2021 Telemedicine consultation with patient 10/10/2021 Telemedicine Neurology Riana Chinchilla, CLINICAL PROVIDER TRAINER-ELECTRONICS TECHNICIAN APPRENTICE [address] [place] [phone] Neurology [facility] Start: 08-15-2021 End: 08-15-2021 Telemedicine consultation with patient 08/15/2021 Telemedicine Neurology Riana Chinchilla, CLINICAL PROVIDER TRAINER-ELECTRONICS TECHNICIAN APPRENTICE [address] [place] [address] [facility] Start: 2013 Screening for malignant neoplasm of cervix CERVICAL CANCER SCREENING DISCUSSION [facility] Start: 07-15-2011 Third diphtheria, tetanus and acellular pertussis (DTaP) vaccination TDAP (ADULT) [facility] Start: 2010 Tetanus vaccination TETANUS [facility] Start: 07-15-2007 HIV screening HIV SCREENING DISCUSSION [facility] Start: 1997 COVID-19 VACCINE (1) COVID-19 VACCINE (1) [facility] Start: 01-14-1993 COVID-19 VACCINE (#1) COVID-19 VACCINE (#1) [facility] Start: 1992 Hepatitis B vaccination HEP B VACCINE (1 of 3 - 3-dose series) [facility] Start: 1992 Hepatitis C antibody, confirmatory test HEPATITIS C VIRUS SCREENING [facility] Start: 1992 Hepatitis C screening HEPATITIS C VIRUS SCREENING [facility] Start: 1992 Tetanus vaccination TETANUS [facility] Ecg routine ecg w/le ast 12 lds w/i&r [place] ELECTROCARDIOGRAM, COMPLETE [place] - OFFICE PERFORMED Routine 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 Ordered: 01/09/2023 [facility] Comment on above: Ordered: 01/09/2023 Elec horace implt smpl cn npgt prgrmg [place] ELEC HORACE IMPLT SMPL CN NPGT PRGRMG [place] Charge Routine Jeavons syndrome Ordered: 11/14/2022 [facility] Comment on above: Ordered: 11/14/2022 Elec horace implt smpl cn npgt prgrmg [place] ELEC HORACE IMPLT SMPL CN NPGT PRGRMG [place] Charge Routine 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 Ordered: 03/12/2023 [facility] Comment on above: Ordered: 03/12/2023 Insj/rplcmt cranial neurostim pulse generator INSERTION REPLACEMENT NEUROSTIMULATOR GENERATOR CRANIAL/INTRACRANIAL Jeavons syndrome [facility] Noninvasive ear/puls e oximetry single deter [place] NONINVASV OXYGEN SATUR; SINGLE [place] - OFFICE PERFORMED Routine 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 Ordered: 01/09/2023 [facility] Comment on above: Ordered: 01/09/2023 Immunizations Immunization Date Immunization Notes Care Provider Lee shelton 01-04-2014 influenza, seasonal, injectable, preservative free Evy Verma MD Work Phone: [facility] 01-04-2014 influenza virus vaccine, unspecified formulation Riana Chinchilla APRN-ELECTRONICS TECHNICIAN APPRENTICE Work Phone: [facility] Payers Date Payer Category Payer Unknown [id number] 2021 Medicaid [employer] [place] [id number] 2021-Present [address] [place] [address] [id number]. [id number] 2016 Unknown [id number] 2016 Self-pay 2014 Unknown [id number] 1992 Unknown [id number] 2.16.840.1.724808.3.579.2.173 1992 Unknown [id number] 2.16.840.1.688389.3.579.2.173 1992 Unknown [id number] 2.16.840.1.728524.3.579.2.754 1992 Unknown [id number] 2.16.840.1.236941.3.579.2.754 1992 Unknown [id number] 2.16.840.1.158125.3.579.2.754 1992 Unknown [id number] 2.16.840.1.079600.3.579.2.754 1992 Unknown [id number] 2.16.840.1.649754.3.579.2.593 1992 Unknown [id number] 2.16.840.1.226271.3.579.2.593 1992 Unknown [id number] 2.16.840.1.548552.3.579.2.593 1992 Unknown [id number] 2.16840.1.813694.3.579.2.593 1992 Unknown [id number] 2.840.1.399676.3.579.2.593 1992 Unknown [id number] 2.840.1.700956.3.579.2.594 1992 Unknown [id number] 2.840.1.955749.3.579.2.594 1992 Unknown [id number] 2.16840.1.946136.3.579.2.594 1992 Unknown [id number] 2.16840.1.849519.3.579.2.594 1992 Unknown [id number] 2.840.1.541727.3.579.2.594 1992 Unknown [id number] 2.16840.1.654095.3.579.2.594 1992 Unknown [id number] 2.16840.1.003741.3.579.2.594 1992 Unknown [id number] 2.16840.1.886053.3.579.2.594 1992 Unknown [id number] 2.16840.1.088695.3.579.2.594 1992 Unknown [id number] 2.16.840.1.064866.3.579.2.594 1992 Unknown [id number] 2.16.840.1.147875.3.579.2.594 1992 Unknown [id number] 2.16.840.1.069238.3.579.2.594 1992 Unknown [id number] 2.16.840.1.892387.3.579.2.594 1992 Unknown [id number] 2.16.840.1.196293.3.579.2.594 1992 Unknown [id number] 2.16.840.1.692481.3.579.2.594 1992 Unknown [id number] 2.16.840.1.128129.3.579.2.1259 1959 Unknown [id number] 1959 Unknown [id number] Social History Date Type Detail Facility Start: 10-28-2019 End: 09-11-2022 Tobacco smoking status NHIS Never smoked tobacco [facility] Start: 10-28-2019 End: 09-11-2022 Tobacco use and exposure Smokeless tobacco non-user [facility] Start: 10-28-2019 Alcohol intake Current drinker of alcohol (finding) [facility] Start: 10-28-2019 History SDOH Alcohol Frequency 2 [facility] Start: 10-28-2019 History SDOH Alcohol Comment rare wine [facility] Start: 10-28-2019 Education 17 [facility] Start: 1990 Sex Assigned At Not on file [facility] Start: 11-08-2022 End: 02-14-2023 Alcohol intake Ex-drinker (finding) [facility] Start: 10-28-2019 End: 09-11-2022 History of Social function [facility] Start: 10-28-2019 End: 09-11-2022 Alcohol Use Disorder Identification Test - Consumption [AUDIT-C] [facility] How often to you hav e a drink containing alcohol? Monthly or less [facility] Average Number of Drinks Not on file [facility] Start: 10-29-2019 Gender identity Identifies as female gender (finding) [facility] Start: 10-29-2019 Sexual orientation Heterosexual (finding) [facility] Start: 02-14-2023 Tobacco Comment Never [facility] Start: 02-14-2023 Alcohol Comment At most one or two drinks a month. [facility] Start: 04-22-2023 Alcohol intake Not Asked [facility] Start: 08-07-2022 Alcohol Comment Occasional alcohol use [facility] Medical Equipment Procedure Code Equipment Code Equipment Origin al Text Equipment Identifier Dates [facility] [id number] Start: 01-15-2023 Clinical Notes 07-04-2021 to 04-22-2023 Donovan Burks DO - 04/22/2023 1:00 PM ESTRiana Chinchilla APRN-DAI - 02/14/2023 4:00 PM ESTPatient InstructionsOp Note - Evy Verma MD - 01/15/2023 2:26 PM ESTDischarge Instructions Note Date & Type Note Facility 04-22-2023 History of Present illness Narrative Reason for Appointment: Patient ID: Rowena Byers is a 32 y.o. female who presents for Infertility Patient presents today for Fertility Follow Up appointment. Current Medications: has a current medication list which includes the following prescription(s): clobazam, folic acid, letrozole, loratadine-pseudoephedrine er, lorazepam, magnesium oxide, metformin, multiple vitamins-minerals, mv-min-fe fum-fa-dha, and sertraline. Medical History: Active Ambulatory Problems Diagnosis Date Noted PCOS (polycystic ovarian syndrome) 12/10/2022 Resolved Ambulatory Problems Diagnosis Date Noted No Resolved Ambulatory Problems Past Medical History: Diagnosis Date Generalized seizure disorder (CMS/HCC) Family History Problem Relation Name Age of Onset Hypertension Mother No Known Problems Father No Known Problems Brother Social History Tobacco Use Smoking status: Never Smokeless tobacco: Never Substance Use Topics Alcohol use: Not on file Comment: Occasional alcohol use Drug use: Never Past Surgical History: Procedure Laterality Date VAGUS NERVE STIMULATOR INSERTION 01/15/2023 battery replacement Allergies Allergen Reactions Other Runny nose Other Reaction(s): Nasal Congestion Pollen Extract Runny nose Other Reaction(s): Congestion Review of Systems: Review of Systems Constitutional: Negative. HENT: Negative. Eyes: Negative. Respiratory: Negative. Cardiovascular: Negative. Gastrointestinal: Negative. Genitourinary: Negative. Musculoskeletal: Negative. Skin: Negative. Neurological: Negative. All other systems reviewed and are negative. Hematological: Negative. Endocrine: Negative. Allergic/Immunologic: Negative. Objective Physical Exam Constitutional: Appearance: Normal appearance. She is well-developed. Cardiovascular: Rate and Rhythm: Normal rate and regular rhythm. Pulmonary: Effort: Pulmonary effort is normal. Breath sounds: Normal breath sounds. Abdominal: General: Bowel sounds are normal. There is no distension. Palpations: Abdomen is soft. Tenderness: There is no abdominal tenderness. There is no guarding or rebound. Musculoskeletal: General: No swelling. Normal range of motion. Right lower leg: No edema. Left lower leg: No edema. Neurological: Mental Status: She is alert and oriented to person, place, and time. Skin: General: Skin is warm and dry. Psychiatric: Mood and Affect: Mood normal. Behavior: Behavior normal. Vitals and nursing note reviewed. Exam conducted with a petroleum refining firer present. Vitals: Estimated body mass index is 34 kg/m as calculated from the following: Height as of 08/08/22: 5' 3.5 . Weight as of this encounter: 195 lb. BP: 120/78 Patient's last menstrual period was 04/19/2023. Assessment/Plan Encounter Diagnosis Name Primary? Encounter for fertility planning Patient presents today to discuss fertility. Patient was given a standing lab order . Patient was instructed to call the office once menstrual cycle begins so femara can be called into patients pharmacy. Patient has been instructed to take Femara on days 3-7 of cycle. On day 21 of cycle patient is to have progesterone labs drawn. Patient was advised to have intercourse on days 12, 14, 16, 18, and 20 of cycle. We will do three rounds of Femara and if patient has not conceived by then, we will perform HSG. Patient has voiced understanding and will call our office for any further questions/concerns. Follow Up: Documented by Donovan Burks DO on behalf of: Donovan Burks DO documented in this encounter [facility] 02-14-2023 History of Present illness Narrative Images from the original note were not included. Rowena Byers was seen in the [facility] on 02/14/2023. She is here today for a follow-up in clinic accompanied by her , Pedro. She was last seen on 04/19/[address] Cori Dennis DO and with wv 11/08/2022. History of Present Illness INTERVAL HISTORY: [...] 24 hours. 2 Each 0 Prenat MV-Min w/Kz-Wdzjxm-YZW ( COMPLETE PO) Take 1 tablet by [...] System Diagnostic Patient ID ABW Model ID SenTiva Serial # [id number] Implanted 01/15/2023 Communication OK Output Current Status [...] VNS Simple Reprogramming (1-3 changes) CPT code 81182 Assessment and Plan Assessment: Rowena is a [...] seizure rescue medications and when to call 9--1. We discussed seizure first aid: Generally speaking, emergency staff should be notified for seizure activity lasting longer than 5 minutes. Encouraged use of Calester to send messages to provider as needed for questions and concerns or can call our clinic @ [phone]. She will return in 3 months with and [address] Dennis or sooner if clinically indicated. Signed, Riana ESCALANTE, CLINICAL PROVIDER TRAINER-ELECTRONICS TECHNICIAN APPRENTICE [facility] Department of Neurology - Epilepsy Division [address] [place] [address] - 7th floor [place] [address] Pager: [phone] I spent a total of 34 minutes on the date of the service which included preparing to see the patient, dwag-ih-bapa patient care, completing clinical documentation, performing a medically appropriate examination and counseling and educating the patient/family/caregiver. Note to patient: The Century Cures Act makes medical notes like these available to patients in the interest of transparency. However, be advised this is a medical document. It is intended as xapk-ho-hnky communication. It is written in medical language and may contain abbreviations or verbiage that are unfamiliar. It may appear blunt or direct. Medical documents are intended to carry relevant information, facts as evident, and the clinical opinion of the practitioner. documented in this encounter [facility] 02-14-2023 Instructions JETHRO Juan - 02/14/2023 4:00 [...] after regular office hours, a neurologist is dish up person for urgent issues. Call the neurology office number ([phone]) to reach the neurologist dish up person if you are continuing to experience many more seizures than usual despite use of your rescue medications. Please try to remember that the neurologist dish up person may not have access to your complete medical record and may not be as familiar with your history. If you have access through [employer], you can contact us through that system as well. If you have documents that need completed or sent to our clinic, please have them faxed to [phone]. It is always best to call during [...] the refill is ready for you to pickers material handlers. Seizure First Aid Training Can Be Found Here (it's free!): [email or web address] nd documented in this encounter [facility] 01-15-2023 Miscellaneous Notes [facility] OPERATIVE REPORT PATIENT NAME: Rowena Byers PROCEDURE [...] The IPG had been interrogated by the players club representative from the vendor. The upper chest [...] the new IPG and secured with the accounts receivable assistant's screwdriver. At this point, a data programmer was used to interrogate the new [...] VSS, anesthesia sign out completed. 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 SURGEON Surgeon(s) and Role: * Evy Verma MD - Primary ANESTHESIOLOGIST Anesthesiologist: Cydney Zavala MD INSTRUMENT TECH: Geraldo Marion APRN-INSTRUMENT TECH Student Nurse Bean Dumper: Chiquita Polanco SURGICAL STAFF Medical Insurance Claims Specialist: Miki Gary RN; Linda Gilmore RN Relief Medical Insurance Claims Specialist: Janet Carreon RN Scrub Person: Marielle Ibrahim Resident Assisting: Colt Meadows MD COMPLICATIONS None ESTIMATED BLOOD LOSS Minimal SPECIMENS No specimen sent * No specimens in log * Colt Meadows MD January 15, 2023 11:03 AM documented in this encounter [facility] 01-15-2023 Nurse Note Pt and family were given AVS and verbalize understanding of instructions. Pt discharged via wheelchair. [facility] 01-15-2023 Surgery Postoperative evaluation and management note [facility] OPERATIVE REPORT PATIENT NAME: Rowena Byers PROCEDURE [...] The IPG had been interrogated by the players club representative from the vendor. The upper chest [...] the new IPG and secured with the accounts receivable assistant's screwdriver. At this point, a data programmer was used to interrogate the new [...] entire procedure and performed the critical portions. [facility] 01-15-2023 Nurse Note Report called to RN SPR, VSS, anesthesia sign out completed. 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 SURGEON Surgeon(s) and Role: * Evy Verma MD - Primary ANESTHESIOLOGIST Anesthesiologist: Cydney Zavala MD INSTRUMENT TECH: Geraldo Marion APRN-INSTRUMENT TECH Student Nurse Bean Dumper: Chiquita Polanco SURGICAL STAFF Medical Insurance Claims Specialist: Miki Gary RN; Linda Gilmore RN Relief Medical Insurance Claims Specialist: Janet Carreon RN Scrub Person: Marielle Ibrahim Resident Assisting: Colt Meadows MD COMPLICATIONS None ESTIMATED BLOOD LOSS Minimal SPECIMENS No specimen sent * No specimens in log * Colt Meadows MD January 15, 2023 11:03 AM [facility] 01-15-2023 Nurse Surgical operation note Report given to BRUSH FINISHER. Patient transported to PACU with anesthesia on a cart and oxygen. [facility] 01-15-2023 Nurse Note Report given to BRUSH FINISHER. Patient transported to PACU with anesthesia on a cart and oxygen. documented in this encounter [facility] 01-15-2023 Hospital Discharge instructions Colt Meadows MD - 01/15/2023 9:30 AM EST Discharge Instructions for DBS Surgery & Battery Placement Surgery Here are some general guidelines to assist you in your recovery at home. Please do not hesitate to call us with any questions or concerns you may have. We can be reached at [phone]. Your appointmentS will be in the Neuromodulation clinic in [address] Incision Care: If you have a [...] 101 degrees F documented in this encounter [facility] 01-15-2023 History and physical note PERIOPERATIVE SURGICAL [...] by Evy Verma MD, 01/15/2023, 9:08 AM. [facility] Work Phone: 01-15-2023 History and physical note [...] 01/15/2023, 9:08 AM. documented in this encounter [facility] 01-09-2023 History and physical note Images [...] 10 mg in 24 hours. Prenat MV-Min w/Qy-Zedkur-MHE ( COMPLETE PO) Take 1 tablet by [...] % ointment HCG QUALITATIVE, URINE Pulse Ox [place] ECG, CLINIC PERFORMED Lab A/P - Labs [...] patient has been medically OPTIMIZED FOR SURGERY. [facility]operative [facility] [place] [address] [facility] Review of Systems (OSUROS)Review of Systems Constitutional: [...] PCP - General (Internal Medicine) Riana Chinchilla APRN-ELECTRONICS TECHNICIAN APPRENTICE (Certified Nurse Practitioner) Family History Problem Relation Age of Onset Prostate Cancer Maternal Grandfather Mental Illness Maternal Grandmother Depression , Anxiety Prostate Cancer Paternal Grandfather Cancer- Other Paternal Grandfather Diabetes Paternal Uncle Social History Socioeconomic History Marital status: Highest education level: Bachelor's degree (e.g., BA, AB, BS) Occupational History 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 Prenat MV-Min w/Ql-Yxiahu-IXS ( COMPLETE PO) Take 1 tablet by [...] % ointment HCG QUALITATIVE, URINE Pulse Ox [place] ECG, CLINIC PERFORMED Lab A/P - Labs [...] patient has been medically OPTIMIZED FOR SURGERY. [facility] Perioperative Clinic [facility] [address] [facility] Review of Systems (OSUROS)Review of Systems Constitutional: [...] PCP - General (Internal Medicine) Riana Chinchilla APRN-ELECTRONICS TECHNICIAN APPRENTICE (Certified Nurse Practitioner) Family History Problem Relation Age of Onset Prostate Cancer Maternal Grandfather Mental Illness Maternal Grandmother Depression , Anxiety Prostate Cancer Paternal Grandfather Cancer- Other Paternal Grandfather Diabetes Paternal Uncle Social History Socioeconomic History Marital status: Highest education level: Bachelor's degree (e.g., BA, AB, BS) 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 She takes Lamictal for treatment 4. 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 Will check hCG today and on day of surgery. Patient understands that surgery may be cancelled if she is . Anesthesia Assessment:No contraindications to planned surgery. Pending review of the patient's labs.ECG reviewed. Whitney Ward MD [facility] documented in this encounter [facility] 01-09-2023 Instructions Robyn DempseyCASSIE - 01/09/2023 8:30 AM EDT Patient Medication [...] take Herbal Medication (including multi-vitamin, fish oil ([place]-3), garlic, Glucosamine - Chondroitin ,gingko, ginseng, Vitamin [...] site one week prior to surgery. - [place] your teeth and rinse your mouth the morning of surgery. - Do NOT bring your dentures or partials with you into surgery. They may be lost. Give them to someone to bring to you after surgery. If you are unable to complete your scheduled testing or appointments made by [facility] please contact [facility] at [phone]. Failure to do so could delay or [...] surgery, please notify our team immediately at [phone]. - If you have Sleep apnea and have a CPAP or BIPAP, then bring your CPAP mask and machine with you to the hospital. Please contact Medical Information Management Department for all records requests. Jysyup-[phone] Elu-[phone] Puma/mateo documented in this encounter [facility] 12-10-2022 History of Present illness Narrative Neurosurgery Clinic Note Date: 12/10/2022 [...] that were dedicated to clinical evaluation, including ghpr-nv-sytv time; counseling and education; chart completion; reviewing [...] aspirin, excedrin, plavix), multivitamins/minerals/herbal supplements (such as [place]-3, garlic, Glucosamine - Chondroitin, gingko, ginseng, Vitamin E, fish oil, etc), non-steroidal anti-inflammatory medications (NSAIDs) (such as Ibuprofen/Motrin/Advil, Aleve, Celebrex) for 10 days prior to surgery, as these are blood thinners. She was advised that Tylenol is the preferred option for pain. She stated understanding. documented in this encounter [facility] 11-08-2022 History of Present illness Narrative Images from the original note were not included. Rowena Byers was seen in the [facility] at [facility] on 11/08/2022. She is here today for a follow-up in clinic accompanied by her , Pedro. She was last seen on 04/19/[address] Cori Dennis DO and with wv 09/19/22. History of Present Illness INTERVAL HISTORY: [...] ID AW Model ID SenTiva Serial # [id number] Implanted 03/27/2018 Communication OK Output Current Status [...] VNS Simple Reprogramming (1-3 changes) CPT code 26031 Assessment and Plan Assessment: Rowena is a [...] seizure rescue medications and when to call 9-. We discussed seizure first aid: Generally speaking, [...] would like to wait Encouraged use of MyChart to send messages to provider as needed for questions and concerns or can call our clinic @ [phone]. She will return in 2 months or sooner if clinically indicated. Signed, Riana Chinchilla MSN, CLINICAL PROVIDER TRAINER-ELECTRONICS TECHNICIAN APPRENTICE [facility] Department of Neurology - Epilepsy Division [address] [place] [address] - 7th floor [place] [address] Pager: [phone] I spent a total of 46 minutes on the date of the service which included preparing to see the patient, evzb-dy-uqgl patient care, completing clinical documentation, performing a medically appropriate examination and counseling and educating the patient/family/caregiver. Note to patient: The Cures Act makes medical notes like these available to patients in the interest of transparency. However, be advised this is a medical document. It is intended as jklc-cd-tgft communication. It is written in medical language and may contain abbreviations or verbiage that are unfamiliar. It may appear blunt or direct. Medical documents are intended to carry relevant information, facts as evident, and the clinical opinion of the practitioner. documented in this encounter [facility] 11-08-2022 Instructions JETHRO Juan - 11/08/2022 4:20 [...] ID AW Model ID SenTiva Serial # [id number] Implanted 03/27/2018 Communication OK Output Current Status OK Current Delivered 1.75 Lead Impedance OK Impedance Value 2903 IFI NO Average # of Inhibited Auto stimulations Daily Avg. Stim % Per Day %Therapy Normal 843.56 AutoStim 26.89 Magnet 0.04 Total 870.50 documented in this encounter [facility] 07-04-2021 Instructions JETHRO Juan - 07/04/2021 9:06 AM EDT Drug name: Depakote ER Pill strength: 250 mg Drug name: Vimpat Pill strength: 100 mg Week 1 Start: 1 tablet in the evening 1/2 tab in the morning, 1/2 tab in the evening Week 2 Start: STOP 1 tablet twice daily and continue Follow up in 4-6 weeks with Riana documented in this encounter [facility] 07-04-2021 History of Present illness Narrative Images from the original note were not included. Rowena Byers was seen in the [facility] at [facility] on 07/04/2021. She is here today for [...] Present Illness: As you may know, Ms. 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 Encouraged use of Calester to send messages to provider as needed for questions and concerns or can call our clinic @ [phone]. She will return in 6 weeks and 3 months with me and [address] Dennis or sooner if clinically indicated. Signed, Riana Chinchilla MSN, CLINICAL PROVIDER TRAINER-ELECTRONICS TECHNICIAN APPRENTICE [facility] Department of Neurology - Epilepsy Division [address] [place] [address] - 7th floor [place], [place] [address] Pager: [phone] Time to complete visit: I spent approximately 38 minutes reviewing the chart prior to the appointment, in face to face counseling with the patient, and with documentation after the visit. 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 [facility] Preop exam for internal medicine- Primary Other specified pre-operative examination 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 Other postprocedural status Jeavons syndrome 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 Other postprocedural status [facility] Encounter for fertility planning [facility] Consultation (Routine) - New Request Specialty Diagnoses / Procedures Referred By Rainer ramos Referred To Contact Neurologic Surgery Diagnoses Jeavons syndrome Evy Verma MD [address] [place] [address] Referral ID Status Reason Start Date Expiration Date V isits Requested Visits Authorized [id number] New Request 12/10/2022 01/04/2024 1 1 [facility] Summary Purpose Family History No Family History [...] Contact Diagnoses Generalized nonconvulsive epilepsy Riana Chinchilla, CLINICAL PROVIDER TRAINER-ELECTRONICS TECHNICIAN APPRENTICE [address] [place] [address] Referral ID Status Reason Start Date Expiration Date V isits Requested Visits Authorized [id number] Pending Review 1 1 Specialty Diagnoses / Procedures Referred By Contac t Referred To Contact Procedures DVT/VTE RISK ASSESSMENT Evy Verma MD [address] [place] [address] Referral ID Status Reason Start Date Expiration Date V isits Requested Visits Authorized [id number] New Request 01/15/2023 02/09/2024 1 1 Additional Source Comments INFORMATION SOURCE (unrecogn ized section and content) DATE CREATED AUTHOR 09/03/2017 [facility] DATE CREATED AUTHOR AUTHOR'S ORGANIZ ATION 03/28/2018 [facility] DATE CREATED AUTHOR AUTHOR'S ORGANIZ ATION 07/02/2018 [facility] DATE CREATED AUTHOR AUTHOR'S ORGANIZ ATION 10/02/2019 [facility] DATE CREATED AUTHOR AUTHOR'S ORGANIZ ATION 06/01/2022 [facility] DATE CREATED AUTHOR AUTHOR'S ORGANIZ ATION 02/17/2023 [facility] DATE CREATED AUTHOR AUTHOR'S ORGANIZ ATION 04/24/2023 [facility] Reason for Visit (unrecogniz ed section and content) Reason Comments Follow-up Reason Comments Follow-up Reason Comments New Patient 32 y.o female here f or consult. Specialty Diagnoses / Procedures Referred By Contac t Referred To Contact Neurologic Surgery Diagnoses Jeavons syndrome S/P placement of VNS (vagus nerve stimulation) device Riana Chinchilla, CLINICAL PROVIDER TRAINER-ELECTRONICS TECHNICIAN APPRENTICE [address] [place] [phone] Referral ID Status Reason Start Date Expiration Date V isits Requested Visits Authorized [id number] New Request 09/19/2022 10/14/2023 1 1 Reason Comments Preoperative Assessment Specialty Diagnoses / Procedures Referred By Contac t Referred To Contact Neurologic Surgery Diagnoses Jeavons syndrome Evy Verma MD [address] [place] [phone] Referral ID Status Reason Start Date Expiration Date V isits Requested Visits Authorized [id number] New Request 12/10/2022 01/04/2024 1 1 Specialty Diagnoses / Procedures Referred By Contac t 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] Procedures [place] IMP STIM,CRANIAL,SUBQ,1 ARRAY INSERTION REPLACEMENT NEUROSTIMULATOR GENERATOR CRANIAL/INTRACRANIAL Evy Verma MD [address] [place] [phone] [facility] [address] [place] [address] Referral ID Status Reason Start Date Expiration Date Visits Re quested Visits Authorized [id number] 1 1 Reason Comments Infertility Care Teams (unrecognized sec tion and content) Gear Roller Relationship Specialty Start Date End Date Tim Rolon DO [address] [place] [address] PCP - General Internal Medicine 09/19/22 Riana Chinchilla, CLINICAL PROVIDER TRAINER-ELECTRONICS TECHNICIAN APPRENTICE [address] [place] [phone] Certified Nurse Practitioner 9/1/23 Gear Roller Relationship Specialty Start Date End Date Haylie DO Tim [address] [place] [address] PCP - General Internal Medicine 09/19/22 Riana Chinchilla, CLINICAL PROVIDER TRAINER-ELECTRONICS TECHNICIAN APPRENTICE [address] [place] [phone] Certified Nurse Practitioner 11/08/22 Gear Roller Relationship Specialty Start Date End Date Haylie DO Tim [address] [place] [address] PCP - General Internal Medicine 09/19/22 Riana Chinchilla, CLINICAL PROVIDER TRAINER-ELECTRONICS TECHNICIAN APPRENTICE [address] [place] [phone] Certified Nurse Practitioner 11/08/22 Gear Roller Relationship Specialty Start Date End Date Tim Rolon DO [address] [place] [address] PCP - General Internal Medicine 09/19/22 Riana Chinchilla, CLINICAL PROVIDER TRAINER-ELECTRONICS TECHNICIAN APPRENTICE [address] [place] [phone] Certified Nurse Practitioner 11/08/22 Gear Roller Relationship Specialty Start Date End Date Tim Rolon DO [address] [place] [address] PCP - General Internal Medicine 09/19/22 Riana Chinchilla, CLINICAL PROVIDER TRAINER-ELECTRONICS TECHNICIAN APPRENTICE [address] [place] [phone] Certified Nurse Practitioner 11/08/22 Gear Roller Relationship Specialty Start Date End Date Tim Rolon DO [address] [place] [id number] PCP - General Internal Medicine 09/19/22 Riana Chinchilla, CLINICAL PROVIDER TRAINER-ELECTRONICS TECHNICIAN APPRENTICE [address] [place] [address] Certified Nurse Practitioner 11/08/22 Gear Roller Relationship Specialty Start Date End Date Tim Rolon MD [address] [place] [phone] PCP - General Internal Medicine 08/08/22 Scheduled Active and Recently Administ ered Medications [...] - Comment: mixed 1:1 w/Lido with epi 1:195923) ceFAZolin (ANCEF) 2 g in dextrose 100 mL premix IVPB (COMPLETED) 2 g, Intravenous, Administer over 30 Minutes, LINOTYPIST TO PROCEDURE, 1 dose, Starting on Fri01/15/23 at 0758, Until Discontinued, Other, Surgical Prophylaxis, Initiate antibiotic administration 30-60 minutes prior to surgical incision and complete administration prior to surgical incision., Pre-op/Pre-Proc 0955 (Given - Provid er: Geraldo Marion, CLINICAL PROVIDER TRAINER-INSTRUMENT TECH) lidocaine-epinephrine 2 %-1:[id number] injection (CANCELED) NEEDED, Starting on Fri01/15/23 at [...] Order-specific weight), Intravenous, Administer over 1 Hours, LINOTYPIST TO PROCEDURE, 1 dose, Starting on Fri01/15/23 [...] BE BASED ON THE PRIMARY CLINICAL RECORDS. [facility] [employer] [facility]. provides no warranty or guarantee of the accuracy or completeness of information in this document.
[2023-05-09 12:31] LABS: Free T4 0.77 ng/dL (0.76-1.46)
[2023-05-09 12:39] LABS: Free T3 2.78 pg/mL (2.18-3.98)
[2023-05-10 04:07] LABS: Progesterone 19.3 ng/mL (.)
== END 2023-05-09 11:27 | disposition home or self-care (01) ==
LOC: LAB 11:26
PROVIDERS: PCP Internal Medicine; Visit Provider Obstetrics & Gynecology
DX: N92.6 Irregular menstruation, unspecified (principal); E28.2 Polycystic ovarian syndrome; N97.9 Female infertility, unspecified
CPT/HCPCS: 36415; 84144; 84439; 84481

== ENCOUNTER 2023-06-08 10:55 | Outpatient (OUT) | payer OTHER, SELFPAY ==
--- OUTSIDE RECORDS SUMMARY | 2023-06-08 11:01 | XMS_ITS | CCD ---
Author Organization [facility] Care Team Providers Care Night Baker Name Role Phone JAMIL SMITH Referring Unavailable [...] Care Unavailable Unavailable Primary Care Provider Unavailhever BURKS ., DR GUERRERO Admitting Unavailable KIMMIE ., [...] Tim Rolon DO Primary Care Provider Raoul SPINNING OPERATOR-FIBER PICKER, Crystal G Unavailable Tim Rolon MD Primary Care Provider DONOVAN BURKS Attending Unavailable BALL, TIM Referring Unavailable BALL, TIM Primary Care Unavailable RAOUL, CRYSTAL G Attending Unavailable BALL, TIM Referring Unavailable BALL, TIM Primary Care Unavailable RAOUL, CRYSTAL G Attending Unavailable RAOUL, CRYSTAL G Attending Unavailable SELF, SELF Referring Unavailable BALL, TIM Primary Care Unavailable RAUOL, CRYSTAL G Attending Unavailable SELF, SELF Referring Unavailable BALL, TIM Primary Care Unavailable RAOUL, CRYSTAL G Attending Unavailable RAOUL, CRYSTAL G Referring Unavailable BALL, TIM Primary Care Unavailable VERMA, EVY C Attending Unavailable RAOUL, CRYSTAL G Referring Unavailable BALL, TIM Primary Care Unavailable BALL, TIM Primary Care Unavailable BALL, TIM Primary Care Unavailable VERMA, EVY C Referring Unavailable VERMA, EVY C Admitting Unavailable BALL, TIM Primary Care Unavailable VERMA, EVY C Attending Unavailable BALL, TIM Primary Care Unavailable VERMA, EVY C Referring Unavailable BALL, TIM Primary Care Unavailable SEAU HERNANDEZ Attending Unavailable VERMA, EVY C Referring Unavailable BALL, TIM Primary Care Unavailable VERMA, EVY C Attending Unavailable VERMA, EVY C Attending Unavailable BALL, TIM Primary Care Unavailable VERMA, EVY C Referring Unavailable Allergies Allergy Classification Reported Allergen(s) Allergy Type Date of Onset Reaction(s) Facility (7 sources) Seasonal allergy Propensity to adverse reactions to drug 7 Runny Nose, Congestion [facility] Work Phone: (2 sources) Pollen Propensity to adverse reactions 7 Runny nose [facility] (2 sources) Other Propensity to adverse reactions 2 Runny nose [facility] Medications Current Medications Medication Drug Class(es) [...] Take by mouth 0 Active Prenat MV-Min w/Xs-Lqjaju-CUP ( COMPLETE PO) (4 sources) take 1 tablet by mouth once at bedtime Prenat MV-Min w/Yq-Xdnalc-GSZ ( COMPLETE PO) Take 1 tablet by [...] Indications: Difficulty falling asleep at night until cake mixer hours TAKE 1 TABLET BY MOUTH EVERYDAY [...] HCG ( test) Ql (U) Negative Negative [facility] Interpretation and review of laboratory results Normal [facility] Test performed at address of the patient encounter. [facility] CARDIAC RHYTHM (SCANNED)on 03-17-2022 [facility] CBC AND ELECTRONIC DIFFon Basophils (Bld) [#/Vol] 0.05 10*3/uL Normal 0.00-0.15 [facility] Comment on above: Performed By: #### L [id number] #### [facility] (DEFAULT) [address] [address] Basophils/100 WBC (Bld) 0.5 % Normal O [facility] Comment on above: Performed By: #### L [id number] #### [facility] (DEFAULT) [address] [place] [address] DIFF STATUS Electronic Differential Normal [facility] Comment on above: Performed By: #### L [id number] #### [facility] (DEFAULT) [address] [place] [address] Eosinophils (Bld) [#/Vol] 0.12 10*3/uL Normal 0.00-0.4 2 [facility] Comment on above: Performed By: #### L [id number] #### [facility] (DEFAULT) [address] [address] Eosinophils/100 WBC (Bld) 1.2 % Normal [facility] Comment on above: Performed By: #### L [id number] #### [facility] (DEFAULT) [address] [place] [address] Hematocrit (Bld) [Volume fraction] 42.5 % Normal 34.9-44.3 [facility] Comment on above: Performed By: #### L [id number] #### [facility] (DEFAULT) [address] [place] [address] Hemoglobin (Bld) [Mass/Vol] 14.3 g/dL Normal 11.4-15.2 [facility] Comment on above: Performed By: #### L AB980 #### [facility] (DEFAULT) [address] [place] [address] Immature Grans % 0.3 % Normal [facility] Comment on above: Performed By: #### L [id number] #### [facility] (DEFAULT) [address] [place] [address] Immature Grans Absolute < Normal <=0.08 O [facility] Comment on above: Performed By: #### L [id number] #### [facility] (DEFAULT) [address] [place] [address] Lymphocytes (Bld) [#/Vol] 3.42 10*3/uL Normal 1.16-3.5 1 [facility] Comment on above: Performed By: #### L AB980 #### [facility] (DEFAULT) [address] [address] Lymphocytes/100 WBC (Bld) 32.9 % Normal [facility] Comment on above: Performed By: #### L [id number] #### [facility] (DEFAULT) [address] [place] [address] MCV (RBC) [Entitic vol] 92.4 fL Normal 79.6-97.7 [facility] Comment on above: Performed By: #### L AB980 #### [facility] (DEFAULT) [address] [place] [address]99 Mean Cell Hgb 31.1 pg Normal 25.9-33.9 [facility] Comment on above: Performed By: #### L AB980 #### [facility] (DEFAULT) [address] [address] Mean Cell Hgb Conc 33.6 g/dL Normal 31.4-35.9 [facility] Comment on above: Performed By: #### L AB980 #### [facility] (DEFAULT) [address] [address] Monocytes (Bld) [#/Vol] 0.62 10*3/uL Normal 0.22-0.87 [facility] Comment on above: Performed By: #### L AB980 #### [facility] (DEFAULT) [address] [address] Monocytes/100 WBC (Bld) 6.0 % Normal O [facility] Comment on above: Performed By: #### L AB980 #### [facility] (DEFAULT) [address] [address] Nucleated RBC 0.0 /100 WBC Normal <=0.2 [facility] Comment on above: Performed By: #### L AB980 #### [facility] (DEFAULT) [address] [address] Platelet mean volume (Bld) [Entitic vol] 10.8 fL Normal 8.5-12.2 [facility] Comment on above: Performed By: #### L [id number] #### [facility] (DEFAULT) [address] [address] Platelets (Bld) [#/Vol] 326 10*3/uL Normal 150-393 [facility] Comment on above: Performed By: #### L AB980 #### [facility] (DEFAULT) [address] [address] RBC (Bld) [#/Vol] 4.60 10*6/uL Normal 3.91-5.04 [facility] Comment on above: Performed By: #### L AB980 #### [facility] (DEFAULT) [address] [place] [address] RBC Distribution 13.1 % Normal 10.8-14.9 [facility] Comment on above: Performed By: #### L AB980 #### [facility] (DEFAULT) [address] [place] [address] Segs + Bands Auto 59.1 % Normal [facility] Comment on above: Performed By: #### L AB980 #### [facility] (DEFAULT) [address] [place] [address] Segs + Bands,Absolute Auto 6.14 K/uL Normal 1.64-7.28 [facility] Comment on above: Performed By: #### L AB980 #### [facility] (DEFAULT) [address] [place] [address] WBC (Bld) [#/Vol] 10.38 10*3/uL Normal 3.99-11.19 [facility] Comment on above: Performed By: #### L AB980 #### [facility] (DEFAULT) [address] [place] [address] Basophils (Bld) [#/Vol] 0.05 10*3/uL 0.00 - 0.15 K/uL [facility] Basophils/100 WBC (Bld) 0.5 % [facility] Differential cell count method Nom (Bld) Electronic Differential [facility] Eosinophils (Bld) [#/Vol] 0.12 10*3/uL 0. 00 - 0.42 K/uL [facility] Eosinophils/100 WBC (Bld) 1.2 % [facility] Erythrocyte distribution width (RBC) [Ratio] 13.1 % 10.8 - 14.9 % [facility] Hematocrit (Bld) [Volume fraction] 42.5 % 34.9 - 44.3 % [facility] Hemoglobin (Bld) [Mass/Vol] 14.3 g/dL 11.4 - 15.2 g/dL [facility] Immature granulocytes (Bld) [#/Vol] K/uL NINF - 0.08 K/uL [facility] Immature granulocytes/100 WBC (Bld) 0.3 % [facility] Lymphocytes (Bld) [#/Vol] 3.42 10*3/uL 1. 16 - 3.51 K/uL [facility] Lymphocytes/100 WBC (Bld) 32.9 % [facility] MCH (RBC) [Entitic mass] 31.1 pg 25. 9 - 33.9 pg [facility] MCHC (RBC) [Mass/Vol] 33.6 g/dL 31.4 - 35.9 g/dL [facility] MCV (RBC) [Entitic vol] 92.4 fL 79.6 - 97.7 fL [facility] Monocytes (Bld) [#/Vol] 0.62 10*3/uL 0.22 - 0.87 K/uL [facility] Monocytes/100 WBC (Bld) 6.0 % [facility] Neutrophils (Bld) [#/Vol] 6.14 10*3/uL 1. 64 - 7.28 K/uL [facility] Nucleated RBC/100 WBC (Bld) [Ratio] 0.0 % [facility] Platelet mean volume (Bld) [Entitic vol] 10.8 fL 8.5 - 12.2 fL [facility] Platelets (Bld) [#/Vol] 326 10*3/uL 150 - 393 K/uL [facility] RBC (Bld) [#/Vol] 4.60 10*6/uL [facility] Segmented neutrophils/100 WBC (Bld) 59.1 % [facility] WBC (Bld) [#/Vol] 10.38 10*3/uL 3.99 - 11 .19 K/uL [facility] CMPN WITHOUT GLUCOSEon 01-09 Albumin [Mass/Vol] 4.9 g/dL Normal 3.5-5.0 [facility] Comment on above: Performed By: #### C MPNG #### [facility] (DEFAULT) [address] [place] [address] ALP [Catalytic activity/Vol] 35 U/L Normal 32-126 [facility] Comment on above: Performed By: #### C MPNG #### [facility] (DEFAULT) [address] [place] [address] ALT [Catalytic activity/Vol] 19 U/L Normal 9-48 [facility] Comment on above: Performed By: #### C MPNG #### [facility] (DEFAULT) [address] [place] [address] Anion gap [Moles/Vol] 13 mmol/L Normal 7-17 [facility] Comment on above: Performed By: #### C MPNG #### [facility] (DEFAULT) [address] [place] [address] AST [Catalytic activity/Vol] 18 U/L Normal 10-39 [facility] Comment on above: Performed By: #### C MPNG #### [facility] (DEFAULT) [address] [place] [address] Bilirubin [Mass/Vol] 0.3 mg/dL Normal <1.5 [facility] Comment on above: Performed By: #### C MPNG #### [facility] (DEFAULT) [address] [place] [address] Calcium [Mass/Vol] 9.2 mg/dL Normal 8.6-10.5 [facility] Comment on above: Performed By: #### C MPNG #### [facility] (DEFAULT) [address] [place] [address] Chloride [Moles/Vol] 102 mmol/L Normal 98-108 [facility] Comment on above: Performed By: #### C MPNG #### [facility] (DEFAULT) [address] [place] [address] CO2 [Moles/Vol] 26 mmol/L Normal 21-31 [facility] Comment on above: Performed By: #### C MPNG #### [facility] (DEFAULT) [address] [place] [address] Creatinine [Mass/Vol] 0.64 mg/dL Normal 0.50-1.20 [facility] Comment on above: Performed By: #### C MPNG #### [facility] (DEFAULT) [address] [place] [address] eGFR, CKD-EPI, Female > Normal >=60 [facility] Comment on above: Result Comment: Repo rted eGFR is based on the CKD-EPI 2020 equation using creatinine, age, and sex. Performed By: #### C MPNG #### [facility] (DEFAULT) [address] [place] [address] Potassium [Moles/Vol] 4.0 mmol/L Normal 3.5-5.0 [facility] Comment on above: Performed By: #### C MPNG #### [facility] (DEFAULT) [address] [place] [address] Protein [Mass/Vol] 7.9 g/dL Normal 6.4-8.3 [facility] Comment on above: Performed By: #### C MPNG #### [facility] (DEFAULT) [address] [place] [address] Sodium [Moles/Vol] 137 mmol/L Normal 135-145 [facility] Comment on above: Performed By: #### C MPNG #### [facility] (DEFAULT) [address] [place] [address] Urea nitrogen [Mass/Vol] 12 mg/dL Normal 7-25 [facility] Comment on above: Performed By: #### C MPNG #### [facility] (DEFAULT) [address] [place] [address] Urea nitrogen/Creatinine [Mass ratio] 19 mg/mg Normal [facility] Comment on above: Performed By: #### C MPNG #### [facility] (DEFAULT) [address] [address] HCG ( test) Ql (U)O rdered By: Jamil Santos on 01-09-2023 Beta HCG ( test) Ql Negative Negative [facility] Interpretation and review of laboratory results Normal [facility] HCG QUALITATIVE, URINEon Beta HCG ( test) Ql (U) Negative Normal Negative [facility] Comment on above: Performed By: #### U HCG #### [facility] (DEFAULT) [address] [address] LAMOTRIGINE LEVELon 01-10-20 23 Lamotrigine, S 4.3 mcg/mL Normal 3.0-15.0 [facility] Comment on above: Result Comment: ADDITIONAL INFORMATION This test was developed and its performance characteristics determined by [facility] in a manner consistent with CLIA requirements. This test has not been cleared or approved by the U.S. Food and Drug Administration. Test Performed by: [place] [id number] Hydrogen Cell Tender: Juno Vega M.D. Ph.D.; CLIA# [id number] Performed By: #### Y LAMO #### [facility] (DEFAULT) [address] [address] PT,INR,PTTon 01-09-2023 aPTT Coag (Bld) [Time] 31.1 s Normal 24.0-34.3 [facility] Comment on above: Performed By: #### P TPTT #### [facility] (DEFAULT) [address] [address] INR Coag (PPP) [Relative time] 1.0 {INR} Normal 0.9-1.1 [facility] Comment on above: Performed By: #### P TPTT #### [facility] (DEFAULT) [address] [place] [address] PT Coag (PPP) [Time] 13.0 s Normal 11.9-14.2 [facility] Comment on above: Performed By: #### P TPTT #### [facility] (DEFAULT) [address] [place] [address] aPTT Coag (PPP) [Time] 31.1 s [facility] INR Coag (Bld) [Relative time] 1.0 {INR} 0.9 - 1.1 [facility] Interpretation and review of laboratory results Normal [facility] PT Coag (PPP) [Time] 13.0 s [facility] SCREEN: MRSA/MSSAOrdered By: Alexandra Slater on 01-09-2023 Interpretation and review of laboratory results Abnormal [facility] Methicillin Resistant S. Aureus By Pcr Negative Negative [facility] Staphylococcus Aureus By Pcr Positive Abnormal Negative [facility] This test was performed using a real [...] by the Clinical Microbiology Laboratory at [facility]. It has not been cleared or approved by the FDA.The laboratory is regulated under CLIA as qualified to perform high-complexity testing. This test is used for clinical purposes. It should not be regarded as investigational or for research. [facility] SCREEN: MRSA/MSSAon 01-10-20 Methicillin Resistant S. Aureus By Pcr Negative Normal Negative [facility] Comment on above: Order Comment: This test [...] by the Clinical Microbiology Laboratory at [facility]. It has not been cleared or approved by the FDA.The laboratory is regulated under CLIA as qualified to perform high-complexity testing. This test is used for clinical purposes. It should not be regarded as investigational or for research. Performed By: #### S CRSB #### [facility] (DEFAULT) [address] [address] Staphylococcus Aureus By Pcr Positive Abnormal Negative [facility] Comment on above: Order Comment: This test [...] by the [facility] Microbiology Laboratory at [facility]. It has not been cleared or approved by the FDA.The laboratory is regulated under CLIA as qualified to perform high-complexity testing. This test is used for clinical purposes. It should not be regarded as investigational or for research. Performed By: #### S CRSB #### [facility] (DEFAULT) [address] [address] VITAMIN D (25-HYDROXY,TOTAL) on 01-09-2023 25-OH Vitamin D Total 35.2 ng/mL Normal 30.0-100.0 [facility] Comment on above: Order Comment: Vitam in D values have been shown to be falsely decreased in lipemic samples and should be interpreted with caution. Result Comment: <10 Deficiency 10-29 Insufficiency 30-100 Optimal Level >100 Possible Toxicity Performed By: #### D 25OH #### [facility] (DEFAULT) [address] [address] XR Cervical and thoracic and lumbar spine [...] IMPRESSION: Intact vagus nerve stimulator as described. [facility] Cervical and thoracic and lumbar spine ViewsOrdered By: Alice Crespo on 01-09-2023 [facility] Work Phone: XR STIMULATOR/INTRATHECAL PU MP CERVICAL/THORACIC/LUMBARon [...] Intact vagus nerve stimulator as described. Normal [facility] PROGESTERONEon 05-24-2022 Progesterone 5.5 ng/mL Normal [facility] Comment on above: Result Comment: Foll icular phase 0.1 - 0.9 Luteal phase 1.8 - 23.9 Ovulation phase 0.1 - 12.0 First trimester 11.0 - 44.3 Second trimester 25.4 - 83.3 Third trimester 58.7 - 214.0 Postmenopausal 0.0 - 0.1 Performed By: #### P DANIEL #### [facility] [address] [place] [address] Dr. Nicol Oswald LAMOTRIGINEon 05-02-2022 Lamotrigine, Serum 4.7 ug/mL Normal 2.0-20.0 [facility] Comment on above: Result Comment: Dete ction Limit = 1.0 Performed By: #### P DANIEL #### [facility] [address] [place] [address] Dr. Nicol Oswald CBC AUTO DIFFon 04-30-2022 BASO # 0.0 103/ul Normal 0.0-0.1 [facility] Comment on above: Performed By: #### C BC #### [facility] [address] [place] [address] Dr. Nicol Oswald Basophils/100 WBC (Bld) 0.4 % Normal 0.2-2.0 [facility] Comment on above: Performed By: #### C BC #### [facility] [address] [place] [address] Dr. Nicol Oswald EO # 0.2 103/ul Normal 0.0-0.7 [facility] Comment on above: Performed By: #### C BC #### [facility] [address] [place] [address] Dr. Nicol Oswald Eosinophils/100 WBC (Bld) 1.9 % Normal 0.9-7.0 [facility] Comment on above: Performed By: #### C BC #### [facility] [address] [place] [address] Dr. Nicol Oswald Erythrocyte distribution width (RBC) [Ratio] 12.8 % Normal 11.0-15.0 [facility] Comment on above: Performed By: #### C BC #### [facility] [address] [place] [address] Dr. Nicol Oswald Hematocrit (Bld) [Volume fraction] 40.4 % Normal 36.0-48.0 [facility] Comment on above: Performed By: #### C BC #### [facility] [address] [place] [address] Dr. Nicol Oswald Hemoglobin (Bld) [Mass/Vol] 13.6 g/dL Normal 12.0-16.0 [facility] Comment on above: Performed By: #### C BC #### [facility] [address] [place] [address] Dr. Nicol Oswald IG # 0.03 10e3/ul Normal 0.00-0.03 [facility] Comment on above: Performed By: #### C BC #### [facility] [address] [place] [address] Dr. Nicol Oswald IG % 0.4 % Normal 0.0-0.5 [facility] Comment on above: Performed By: #### C BC #### [facility] [address] [place] [address] Dr. Nicol Oswald LYMPH # 3.1 103/ul Normal 1.2-3.8 [facility] Comment on above: Performed By: #### C BC #### [facility] [address] [place] [address] Dr. Nicol Oswald Lymphocytes/100 WBC (Bld) 36.4 % Normal 20.5-60.0 [facility] Comment on above: Performed By: #### C BC #### [facility] [address] [place] [address] Dr. Nicol Oswald MANUAL DIFF REQ NO Normal [facility] Comment on above: Performed By: #### C BC #### [facility] [address] [place] [address] Dr. Nicol Oswald MCH (RBC) [Entitic mass] 31.0 pg Normal 26.7-34.0 [facility] Comment on above: Performed By: #### C BC #### [facility] [address] [place] [address] Dr. Nicol Oswald MCHC (RBC) [Mass/Vol] 33.7 g/dL Normal 29.9-35.2 [facility] Comment on above: Performed By: #### C BC #### [facility] [address] [place] [address] Dr. Nicol Oswald MCV (RBC) [Entitic vol] 92.0 fL Normal 81.0-99.0 [facility] Comment on above: Performed By: #### C BC #### [facility] [address] [place] [address] Dr. Nicol Oswald MONO # 0.7 103/ul Normal 0.3-0.8 [facility] Comment on above: Performed By: #### C BC #### [facility] [address] [place] [address] Dr. Nicol Oswald Monocytes/100 WBC (Bld) 7.7 % Normal 1.7-12.0 [facility] Comment on above: Performed By: #### C BC #### [facility] [address] [place] [address] Dr. Nicol Oswald NEUT # 4.5 103/ul Normal 1.4-6.5 [facility] Comment on above: Performed By: #### C BC #### [facility] [address] [place] [address] Dr. Nicol Oswald Neutrophils/100 WBC (Bld) 53.2 % Normal 43.0-75.0 [facility] Comment on above: Performed By: #### C BC #### [facility] [address] [place] [address] Dr. Nicol Oswald Platelet mean volume (Bld) [Entitic vol] 11.0 fL Normal 9.5-13.5 [facility] Comment on above: Performed By: #### C BC #### [facility] [address] [place] [address] Dr. Nicol Oswald PLT 282 103/ul Normal 150-450 [facility] Comment on above: Performed By: #### C BC #### [facility] [address] [place] [address] Dr. Nicol Oswald RBC 4.39 106/ul Normal 4.20-5.40 [facility] Comment on above: Performed By: #### C BC #### [facility] [address] [place] [address] Dr. Nicol Oswald WBC 8.4 103/ul Normal 4.0-11.0 [facility] Comment on above: Performed By: #### C BC #### [facility] [address] [place] [address] Dr. Nicol Oswald LIVER PROFILEon 04-30-2022 Albumin [Mass/Vol] 4.1 g/dL Normal 3.4-5.0 [facility] Comment on above: Performed By: #### P DANIEL #### [facility] [address] [place] [address] Dr. Nicol Oswald Albumin/Globulin [Mass ratio] 1.2 {ratio} Normal [facility] Comment on above: Performed By: #### P DANIEL #### [facility] [address] [place] [address] Dr. Nicol Oswald ALP [Catalytic activity/Vol] 52 U/L Normal 46-116 [facility] Comment on above: Performed By: #### P DANIEL #### [facility] [address] [place] [address] Dr. Nicol Oswald ALT [Catalytic activity/Vol] 23 U/L Normal 14-59 [facility] Comment on above: Performed By: #### P DANIEL #### [facility] [address] [place] [address] Dr. Nicol Oswald AST [Catalytic activity/Vol] 17 U/L Normal 15-37 [facility] Comment on above: Performed By: #### P DANIEL #### [facility] [address] [place] [address] Dr. Nicol Oswald BILI, CONJUGATED 0.1 mg/dL Normal 0.0-0.2 [facility] Comment on above: Performed By: #### P DANIEL #### [facility] [address] [place] [address] Dr. Nicol Oswald Bilirubin [Mass/Vol] 0.2 mg/dL Normal 0.2-1.0 [facility] Comment on above: Performed By: #### P DANIEL #### [facility] [address] [place] [address] Dr. Nicol Oswald Globulin (S) [Mass/Vol] 3.4 g/dL Normal [facility] Comment on above: Performed By: #### P DANIEL #### [facility] [address] [place] [address] Dr. Nicol Oswald Protein [Mass/Vol] 7.5 g/dL Normal 6.4-8.2 [facility] Comment on above: Performed By: #### P DANIEL #### [facility] [address] [place] [address] Dr. Nicol Oswald PROF CHEM 8 (BAS METB)on Anion gap [Moles/Vol] 8.5 mmol/L Normal [facility] Comment on above: Performed By: #### P DANIEL #### [facility] [address] [place] [address] Dr. Nicol Oswald Calcium [Mass/Vol] 9.4 mg/dL Normal 8.5-10.1 [facility] Comment on above: Performed By: #### P DANIEL #### [facility] [address] [place] [address] Dr. Nicol Oswald Chloride [Moles/Vol] 102 mmol/L Normal 98-107 [facility] Comment on above: Performed By: #### P DANIEL #### [facility] [address] [place] [address] Dr. Nicol Oswald CO2 [Moles/Vol] 30.4 mmol/L Normal 21.0-32.0 [facility] Comment on above: Performed By: #### P DANIEL #### [facility] [address] [place] [address] Dr. Nicol Oswald Creatinine [Mass/Vol] 0.57 mg/dL Normal 0.55-1.02 [facility] Comment on above: Performed By: #### P ROGES #### [facility] [address] [place] [address] Dr. Nicol Oswald EGFR-AF VIETNAMESE >60 Normal >=60 [facility] Comment on above: Performed By: #### P ROGES #### [facility] [address] [place] [address] Dr. Nicol Oswald EGFR-NON AF VIETNAMESE >60 Normal >=60 [facility] Comment on above: Performed By: #### P ROGES #### [facility] [address] [place] [address] Dr. Nicol Oswald Glucose [Mass/Vol] 89 mg/dL Normal 74-106 [facility] Comment on above: Performed By: #### P ROGES #### [facility] [address] [place] [address] Dr. Nicol Oswald Potassium [Moles/Vol] 3.9 mmol/L Normal 3.5-5.1 [facility] Comment on above: Performed By: #### P ROGES #### [facility] [address] [place] [address] Dr. Nicol Oswald Sodium [Moles/Vol] 137 mmol/L Normal 136-145 [facility] Comment on above: Performed By: #### P ROGES #### [facility] [address] [place] [address] Dr. Nicol Oswald Urea nitrogen [Mass/Vol] 10.0 mg/dL Normal 7.0-18.0 [facility] Comment on above: Performed By: #### P ROGES #### [facility] [address] [place] [address] Dr. Nicol Oswald Urea nitrogen/Creatinine [Mass ratio] 17.5 mg/mg Normal [facility] Comment on above: Performed By: #### P ROGES #### [facility] [address] [place] [address] Dr. Nicol Oswald ESTROGENon 04-19-2022 Estrogens, Total 124 pg/mL Normal [facility] Comment on above: Result Comment: Prep ubertal < 40 Female Cycle: 1-10 Days 16 - 328 11-20 Days 34 - 501 21-30 Days 48 - 350 Post-Menopausal 40 - 244 Performed By: ###Chapin ESPINAL #### [facility] [address] [address] [address] Nicol Oswald DHEA SERUMon 04-18-2022 Dehydroepiandrosterone (DHEA) 371 ng/dL Normal 31-701 [facility] Comment on above: Result Comment: Age [...] [birth year] Performed By: #### Tenzin SANCHEZ #### [facility] [address] [address] [address] Nicol Oswald DHEA-SULFATEon 04-16-2022 DHEA-Sulfate 371.0 ug/dL Normal 84.8-378.0 [facility] Comment on above: Performed By: #### Tenzin SANCHEZ #### [facility] [address] [address] [address] Nicol Oswald FSHon 04-16-2022 FSH 5.6 mIU/mL Normal [facility] Comment on above: Result Comment: Adul t Female: Follicular phase 3.5 - 12.5 Ovulation phase 4.7 - 21.5 Luteal phase 1.7 - 7.7 Postmenopausal 25.8 - 134.8 Performed By: #### P DANIEL #### [facility] [address] [address] [address] Nicol Oswald LUTEINIZING HORMONE (LH)on 0 04-16-2022 LH 12.9 mIU/mL Normal [facility] Comment on above: Result Comment: Adul t Female: Follicular phase 2.4 - 12.6 Ovulation phase 14.0 - 95.6 Luteal phase 1.0 - 11.4 Postmenopausal 7.7 - 58.5 Performed By: #### P DANIEL #### [facility] [address] [address] [address] Nicol Oswald PROGESTERONEon 04-16-2022 Progesterone 0.2 ng/mL Normal [facility] Comment on above: Result Comment: Foll icular phase 0.1 - 0.9 Luteal phase 1.8 - 23.9 Ovulation phase 0.1 - 12.0 First trimester 11.0 - 44.3 Second trimester 25.4 - 83.3 Third trimester 58.7 - 214.0 Postmenopausal 0.0 - 0.1 Performed By: #### P ROGES #### [facility] [address] [address] [address] Nicol Oswald PROLACTINon 04-16-2022 Prolactin 7.1 ng/mL Normal 4.8-23.3 [facility] Comment on above: Performed By: #### P ROLAC #### [facility] [address] [place] [address] Dr. Nicol Oswald US PELVIS AND TRANSVAGon [...] CYDNEY VALDEZ Date: 2022-04-16 08:48 Normal [facility] CBC AUTO DIFFon 04-15-2022 BASO # 0.0 103/ul Normal 0.0-0.1 [facility] Comment on above: Performed By: #### C BC #### [facility] [address] [place] [address] Dr. Nicol Oswald Basophils/100 WBC (Bld) 0.5 % Normal 0.2-2.0 [facility] Comment on above: Performed By: #### C BC #### [facility] [address] [place] [address] Dr. Nicol Oswald EO # 0.2 103/ul Normal 0.0-0.7 [facility] Comment on above: Performed By: #### C BC #### [facility] [address] [place] [address] Dr. Nicol Oswald Eosinophils/100 WBC (Bld) 2.1 % Normal 0.9-7.0 [facility] Comment on above: Performed By: #### C BC #### [facility] [address] [place] [address] Dr. Nicol Oswald Erythrocyte distribution width (RBC) [Ratio] 12.5 % Normal 11.0-15.0 [facility] Comment on above: Performed By: #### C BC #### [facility] [address] [place] [address] Dr. Nicol Oswald Hematocrit (Bld) [Volume fraction] 44.7 % Normal 36.0-48.0 [facility] Comment on above: Performed By: #### C BC #### [facility] [address] [place] [address] Dr. Nicol Oswald Hemoglobin (Bld) [Mass/Vol] 14.3 g/dL Normal 12.0-16.0 [facility] Comment on above: Performed By: #### C BC #### [facility] [address] [place] [address] Dr. Nicol Oswald IG # 0.01 10e3/ul Normal 0.00-0.03 [facility] Comment on above: Performed By: #### C BC #### [facility] [address] [place] [address] Dr. Nicol Oswald IG % 0.1 % Normal 0.0-0.5 [facility] Comment on above: Performed By: #### C BC #### [facility] [address] [address] [address] Nicol Oswald LYMPH # 2.0 103/ul Normal 1.2-3.8 [facility] Comment on above: Performed By: #### C BC #### [facility] [address] [address] [address] Nicol Oswald Lymphocytes/100 WBC (Bld) 26.0 % Normal 20.5-60.0 [facility] Comment on above: Performed By: #### C BC #### [facility] [address] [place] [address] Dr. Nicol Oswald MANUAL DIFF REQ NO Normal [facility] Comment on above: Performed By: #### C BC #### [facility] [address] [place] [address] Dr. Nicol Oswald MCH (RBC) [Entitic mass] 30.8 pg Normal 26.7-34.0 [facility] Comment on above: Performed By: #### C BC #### [facility] [address] [place] [address] Dr. Nicol Oswald MCHC (RBC) [Mass/Vol] 32.0 g/dL Normal 29.9-35.2 [facility] Comment on above: Performed By: #### C BC #### [facility] [address] [place] [address] Dr. Nicol Oswald MCV (RBC) [Entitic vol] 96.3 fL Normal 81.0-99.0 [facility] Comment on above: Performed By: #### C BC #### [facility] [address] [place] [address] Dr. Nicol Oswald MONO # 0.6 103/ul Normal 0.3-0.8 [facility] Comment on above: Performed By: #### C BC #### [facility] [address] [place] [address] Dr. Nicol Oswald Monocytes/100 WBC (Bld) 7.3 % Normal 1.7-12.0 [facility] Comment on above: Performed By: #### C BC #### [facility] [address] [place] [address] Dr. Nicol Oswald NEUT # 4.9 103/ul Normal 1.4-6.5 [facility] Comment on above: Performed By: #### C BC #### [facility] [address] [place] [address] Dr. Nicol Oswald Neutrophils/100 WBC (Bld) 64.0 % Normal 43.0-75.0 [facility] Comment on above: Performed By: #### C BC #### [facility] [address] [place] [address] Dr. Nicol Oswald Platelet mean volume (Bld) [Entitic vol] 11.3 fL Normal 9.5-13.5 [facility] Comment on above: Performed By: #### C BC #### [facility] [address] [place] [address] Dr. Nicol Oswald PLT 302 103/ul Normal 150-450 [facility] Comment on above: Performed By: #### C BC #### [facility] [address] [place] [address] Dr. Nicol Oswald RBC 4.64 106/ul Normal 4.20-5.40 [facility] Comment on above: Performed By: #### C BC #### [facility] [address] [place] [address] Dr. Nicol Oswald WBC 7.7 103/ul Normal 4.0-11.0 [facility] Comment on above: Performed By: #### C BC #### [facility] [address] [place] [address] Dr. Nicol Oswald FREE T4on 04-15-2022 Free T4 [Mass/Vol] 0.80 ng/dL Normal 0.76-1.46 [facility] Comment on above: Performed By: #### F T4 #### [facility] [address] [place] [address] Dr. Nicol Oswald GLYCOHEMOGLOBIN A1Con 2022 ADA RECOMMENDATION SEE BELOW Normal [facility] Comment on above: Result Comment: ADA RECOMMENDED LIMIT 4.0 - 6.0 ADA THERAPEUTIC TARGET < 7.0 ACTION SUGGESTED > 7.0 Performed By: #### A 1C #### [facility] [address] [address] [address] Nicol Oswald Glucose [Mass/Vol] 114 mg/dL Normal [facility] Comment on above: Performed By: #### A 1C #### [facility] [address] [address] [address] Nicol Oswald HbA1c (Bld) [Mass fraction] 5.6 % Normal 4.5-6.2 [facility] Comment on above: Performed By: #### A 1C #### [facility] [address] [address] [address] Nicol Oswald PREG QUANT HCGon 04-15-2022 HCG QUANT <1 [facility] Comment on above: Performed By: #### P REGQNT, TSH #### [facility] [address] [place] [address] Dr. Nicol Oswald HCG RANGE SEE BELOW [facility] Comment on above: Result Comment: 5-50 0.2-1 WEEK 50-500 1-2 WEEKS 100-5,000 2-3 WEEKS 500-10,000 3-4 WEEKS 1,000-50,000 4-5 WEEKS 10,000-100,000 5-6 WEEKS 15,000-200,000 6-8 WEEKS 10,000-100,000 2-3 MONTHS Performed By: #### P REGQNT, TSH #### [facility] [address] [place] [address] Dr. Nicol Oswald TSHon 04-15-2022 TSH 1.312 uIU/mL Normal 0.358-3.740 [facility] Comment on above: Performed By: #### P REGQNT, TSH #### [facility] [address] [place] [address] Dr. Nicol Oswald PAP ACOG PANEL 2: 21 to 31on 08-31-2021 . . Normal [facility] Comment on above: Performed By: #### P JASONES #### [facility] [address] [place] [address] Dr. Nicol Oswald Age Gdln ACOG Testing - [facility] Comment on above: Performed By: #### P ROGES #### [facility] [address] [place] [address] Dr. Nicol Oswald DIAGNOSIS: Comment Normal [facility] Comment on above: Result Comment: NEGA TIVE FOR INTRAEPITHELIAL LESION OR MALIGNANCY. THIS SPECIMEN WAS RESCREENED PART OF OUR [employer]LECT[employer]PER[employer] PROGRAM. Performed By: #### P ROGES #### [facility] [address] [place] [address] Dr. Nicol Oswald Methodology: Comment Normal [facility] Comment on above: Result Comment: This liquid based ThinPrep(R) pap test was screened with the use of an image guided system. Performed By: #### P ROGES #### [facility] [address] [place] [address] Dr. Nicol Oswald Note: Comment Normal [facility] Comment on above: Result Comment: The Pap smear is a screening test designed to aid in the detection of premalignant and malignant conditions of the uterine cervix. It is not a diagnostic procedure and should not be used as the sole means of detecting cervical cancer. Both false-positive and false-negative reports do occur. . Performed By: #### P ROGES #### [facility] [address] [place] [address] Dr. Nicol Oswald Performed by: Comment Normal [facility] Comment on above: Result Comment: Mireille Blanco, Web Marketing Strategist (ASCP) Performed By: #### P ROGES #### [facility] [address] [place] [address] Dr. Nicol Oswald QC reviewed by: Comment Normal [facility] Comment on above: Result Comment: Tahira Roque, Web Marketing Strategist (ASCP) Performed By: #### P ROGES #### [facility] [address] [place] [address] Dr. Nicol Oswald Reflex Criteria: Comment [facility] Comment on above: Result Comment: The HPV DNA reflex criteria were not met with this specimen result therefore, no HPV testing was performed. . Performed By: #### P ROGES #### [facility] [address] [place] [address] Dr. Nicol Oswald Specimen adequacy: Comment Normal [facility] Comment on above: Result Comment: Sati sfactory for evaluation. Endocervical and/or squamous metaplastic cells (endocervical component) are present. Performed By: #### P DANIEL #### [facility] [address] [address] [address] Nicol Oswald CBC Auto Diff Reflex Manualo n 02-18-2019 Automated Absolute Neutrophil 5.73 10*3/mm3 Normal [facility] Comment on above: Result Comment: Auto mated Absolute Neutrophil Count (ANC) is directly measured using a hematology instrument. ANC determined from manual differential cell count may differ. No [facility] reference range has been validated for this assay. Performed By: #### C D #### [place] [address] Basophil 0.5 % Normal 0.0-1.0 [facility] Comment on above: Performed By: #### C D #### [place] [address] Differential Type Automated Normal [facility] Comment on above: Performed By: #### C D #### [place] [address] Eosinophil 1.6 % Normal 1.0-4.0 [facility] Comment on above: Performed By: #### C D #### [place] [address] Erythrocyte distribution width (RBC) [Ratio] 13.4 % Normal 10-14.1 [facility] Comment on above: Performed By: #### C D #### [place] [address] Lymphocyte 22.6 % Low 24.0-44.0 [facility] Comment on above: Performed By: #### C D #### [place] [address] MCH (RBC) [Entitic mass] 30.7 pg Normal 26-34 [facility] Comment on above: Performed By: #### C D #### [place] [address] MCHC (RBC) [Mass/Vol] 33.2 % Normal 31.0-37.0 [facility] Comment on above: Performed By: #### C D #### Performed at [address] [address] MCV (RBC) [Entitic vol] 92.4 fL Normal 80-100 [facility] Comment on above: Performed By: #### C D #### Performed at [address] [address] Monocyte 8.2 % High 1.0-7.0 [facility] Comment on above: Performed By: #### C D #### Performed at [address] [address] Neutrophil 67.1 % Normal 41.0-77.0 [facility] Comment on above: Performed By: #### C D #### Performed at [address] [address] Platelet mean volume (Bld) [Entitic vol] 11.5 fL Normal 9.3-13.0 [facility] Comment on above: Performed By: #### C D #### Performed at [address] [address] Platelets (Bld) [#/Vol] 268 10*3/uL Normal 140-440 [facility] Comment on above: Performed By: #### C D #### Performed at [address] [address] RBC (Bld) [#/Vol] 4.60 10*6/uL Normal 4.0-5.2 [facility] Comment on above: Performed By: #### C D #### Performed at [address] [address] WBC (Bld) [#/Vol] 8.6 10*3/uL Normal 4.5-11 [facility] Comment on above: Performed By: #### C D #### Performed at [address] [address] Comprehensive Metabolic Pane alexandr 02-18-2019 Albumin [Mass/Vol] 4.7 g/dL Normal 3.4-5.2 [facility] ALP [Catalytic activity/Vol] 47 U/L Low 50-136 [facility] ALT [Catalytic activity/Vol] 32 U/L Normal <40 [facility] AST [Catalytic activity/Vol] 29 U/L Normal 15-50 [facility] Bilirubin Ql (U) 0.2 mg/dL Normal 0.1-1.0 [facility] Calcium [Mass/Vol] 9.8 mg/dL Normal 8-10.5 [facility] Chloride [Moles/Vol] 104 mmol/L Normal 95-106 [facility] CO2 [Moles/Vol] 25 mmol/L Normal 24-35 [facility] Creatinine [Mass/Vol] 0.52 mg/dL Normal 0.5-1 [facility] Glucose [Mass/Vol] 135 mg/dL High 60-115 [facility] Potassium [Moles/Vol] 4.5 mmol/L Normal 3.7-5.3 [facility] Protein [Mass/Vol] 8.0 g/dL Normal 6.4-8.4 [facility] Sodium [Moles/Vol] 140 mmol/L Normal 135-145 [facility] Urea nitrogen [Mass/Vol] 15 mg/dL Normal 5-18 [facility] Valproic Acidon 02-18-2019 Valproic Acid 47.1 ug/mL Low 50.0-100.0 [facility] PAP, THIN PREP WITH IMAGINGo n 06-29-2018 PAP, THIN PREP WITH IMAGING Normal [facility] Comment on above: Result Comment: INTE RPRETATION Thin Prep Image-Guided Pap Test (Cervical/Endocervical) NEGATIVE FOR INTRAEPITHELIAL LESION /MALIGNANCY Satisfactory for evaluation (Endocervical/transformation zone component present) [facility]/06/27/2018 The Pap test is a screening test, [...] 05/18/18 ICD-CM DIAGNOSIS CODE(S) Z01.419 [facility] For Neuropsychologist Exam (general) (routine) W/o Abn Findings * EFFECTIVE 06/08/2018 * * CLINICAL CHEMISTRY PLATFORM CHANGES ARE ASSOCIATED WITH * * REFERENCE RANGE CHANGES FOR A NUMBER OF ANALYTES. PLEASE * * REVIEW REFERENCE INTERVALS CAREFULLY * [facility]. [address] [place] [address] CLIA No. [id number] CAP Accreditation No. [id number] Health Information Specialist: Johnson Garland M.D. [employer] Accession Number: [id number] Performed By: #### P L PAP W/IMAGE #### [address] [id number] Nucleic-Acid Probe-Endoce rvical Swabon 06-24-2018 CT Nucleic-Acid Probe-Endocervical Swab Negative Normal NEGATIVE [facility] Comment on above: Performed By: #### G C Amp Endocerv, CT Amp Endocerv #### [address] [id number] Age at specimen collection = Normal [facility] Comment on above: Performed By: #### G C Amp Endocerv, CT A[facility] End[facility] #### [address] [id number] Performed By: #### P L PAP W/IMAGE #### [address] [place] [address] GC Nucleic-Acid Probe-Endoce rvical Swabon 06-24-2018 GC Nucleic-Acid Probe-Endocervical Swab Negative Normal NEGATIVE [facility] Comment on above: Performed By: #### G C Amp Endocerv, CT Amp Endocerv #### [facility] [address] [place], [place] [id number] Platelet Functionon 03-24-19 19 Collagen/ADP 148 sec High 67-112 [facility] Comment on above: Performed By: #### P FA #### [facility] [address] [place], [place] [id number] Collagen/EPI 228 sec High 85-172 [facility] Comment on above: Performed By: #### P FA #### [facility] [address] [place] [address] Interpretation Abnormal platelet function. Normal [facility] Comment on above: Result Comment: Comm on [...] established. Performed By: #### P FA #### [facility] [address] [place] [address] XR ANKLE RIGHT STANDARDon XR ANKLE RIGHT STANDARD Radiology exam i s complete. No Radiologist dictation. Please follow up with ordering provider. Final result Normal [facility] Vital Signs Date Time Vital Sign Value Performing Clinician Facility 04-22-2023 13:04-0500 Body mass index (BMI) [Ratio] 34 kg/m2 Donovan Burks DO Work Phone: [facility] 04-22-2023 13:04-0500 Body weight 88.45 kg Donovan Kimmie DO Work Phone: [facility] 04-22-2023 13:04-0500 Diastolic blood pressure 78 mm[Hg] Donovan Kimmie DO Work Phone: [facility] 04-22-2023 13:04-0500 Systolic blood pressure 120 mm[Hg] Donovan Kimmie DO Work Phone: [facility] 02-14-2023 15:48-0500 Body height 161.3 cm Riana Raoul SPINNING OPERATOR-[employer]ER [employer]ER Work Phone: [facility] Comment on above: verbal 02-14-2023 15:48-0500 Body mass index (BMI) [Ratio] 34.82 kg/m2 Riana Raoul SPINNING OPERATOR-[employer]ER [employer]ER Work Phone: [facility] 02-14-2023 15:48-0500 Body temperature 97.9 [degF] Crystal Raoul SPINNING OPERATOR-[employer]ER [employer]ER Work Phone: [facility] 02-14-2023 15:48-0500 Body weight 90.58 kg Crystal Raoul SPINNING OPERATOR-[employer]ER [employer]ER Work Phone: [facility] 02-14-2023 15:48-0500 Diastolic blood pressure 79 mm[Hg] Crystal Raoul SPINNING OPERATOR-[employer]ER [employer]ER Work Phone: [facility] 02-14-2023 15:48-0500 Heart rate 107 /min Crystal Raoul SPINNING OPERATOR-[employer]ER [employer]ER Work Phone: [facility] 02-14-2023 15:48-0500 Systolic blood pressure 133 mm[Hg] Crystal Raoul SPINNING OPERATOR-[employer]ER [employer]ER Work Phone: [facility] 01-15-2023 13:50-0500 Body temperature 97.5 [degF] Evy Verma MD Work Phone: [facility] 01-15-2023 13:50-0500 Diastolic blood pressure 79 mm[Hg] Evy Verma MD Work Phone: [facility] 01-15-2023 13:50-0500 Heart rate 78 /min Evy Verma MD Work Phone: [facility] 01-15-2023 13:50-0500 Respiratory rate 16 /min Evy Verma MD Work Phone: [facility] 01-15-2023 13:50-0500 SaO2% (BldA) [Mass fraction] 98 % Evy Verma MD Work Phone: [facility] 01-15-2023 13:50-0500 Systolic blood pressure 117 mm[Hg] Evy Verma MD Work Phone: [facility] 01-15-2023 07:50-0500 Body height 161.3 cm Evy Verma MD Work Phone: [facility] 01-15-2023 07:50-0500 Body mass index (BMI) [Ratio] 34.37 kg/m2 Evy Verma MD Work Phone: [facility] 01-15-2023 07:50-0500 Body weight 89.4 kg Evy Verma MD Work Phone: [facility] 01-09-2023 08:39-0400 Body height 161.3 cm Esau Hernandez PAC Work Phone: [facility] 01-09-2023 08:39-0400 Body mass index (BMI) [Ratio] 33.65 kg/m2 Esau Hernandez PAC Work Phone: [facility] 01-09-2023 08:39-0400 Body temperature 98.49 [degF] Esau Hernandez PAC Work Phone: [facility] 01-09-2023 08:39-0400 Body weight 87.54 kg Esau Hernandez PAC Work Phone: [facility] 11-02-2023 08:39-0400 Diastolic blood pressure 80 mm[Hg] Esau Hernandez PAC Work Phone: [facility] 01-09-2023 08:39-0400 Heart rate 81 /min Esau Hernandez PAC Work Phone: [facility] 01-09-2023 08:39-0400 Respiratory rate 18 /min Esau Hernandez PAC Work Phone: [facility] 01-09-2023 08:39-0400 SaO2% (BldA) [Mass fraction] 98 % Esau Hernandez PAC Work Phone: [facility] 01-09-2023 08:39-0400 Systolic blood pressure 134 mm[Hg] Esau Hernandez PAC Work Phone: [facility] 12-10-2022 10:53-0400 Body height 160 cm Evy Verma MD Work Phone: [facility] 12-10-2022 10:53-0400 Body mass index (BMI) [Ratio] 34.19 kg/m2 Evy Verma MD Work Phone: [facility] 12-10-2022 10:53-0400 Body weight 87.54 kg Evy Verma MD Work Phone: [facility] 12-10-2022 10:53-0400 Diastolic blood pressure 63 mm[Hg] Evy Verma MD Work Phone: [facility] 12-10-2022 10:53-0400 Heart rate 65 /min Evy Verma MD Work Phone: [facility] 12-10-2022 10:53-0400 Systolic blood pressure 125 mm[Hg] Evy Verma MD Work Phone: [facility] 11-08-2022 16:21-0400 Body height 160 cm Riana MORELOS Work Phone: [facility] Comment on above: verbal 11-08-2022 16:21-0400 Body mass index (BMI) [Ratio] 34.26 kg/m2 Riana Raoul SPINNING OPERATOR-FIBER PICKER Work Phone: [facility] 11-08-2022 16:21-0400 Body temperature 99.1 [degF] Crystal Raoul SPINNING OPERATOR-FIBER PICKER Work Phone: [facility] 11-08-2022 16:21-0400 Body weight 87.73 kg Crystal Raoul SPINNING OPERATOR-FIBER PICKER Work Phone: [facility] 11-08-2022 16:21-0400 Diastolic blood pressure 71 mm[Hg] Crystal Raoul SPINNING OPERATOR-FIBER PICKER Work Phone: [facility] 11-08-2022 16:21-0400 Heart rate 97 /min Crystal Raoul SPINNING OPERATOR-FIBER PICKER Work Phone: [facility] 11-08-2022 16:21-0400 Systolic blood pressure 116 mm[Hg] Crystal Raoul SPINNING OPERATOR-FIBER PICKER Work Phone: [facility] 07-04-2021 09:38-0400 Body height 161.3 cm Riana Raoul SPINNING OPERATOR-FIBER PICKER Work Phone: [facility] Comment on above: verbal 07-04-2021 09:38-0400 Body mass index (BMI) [Ratio] 36.23 kg/m2 Crystal Raoul SPINNING OPERATOR-FIBER PICKER Work Phone: [facility] 07-04-2021 09:38-0400 Body temperature 98.71 [degF] Crystal Raoul SPINNING OPERATOR-FIBER PICKER Work Phone: [facility] 07-04-2021 09:38-0400 Body weight 94.26 kg Crystal Raoul SPINNING OPERATOR-FIBER PICKER Work Phone: [facility] 07-04-2021 09:38-0400 Diastolic blood pressure 70 mm[Hg] Crystal Raoul SPINNING OPERATOR-FIBER PICKER Work Phone: [facility] 07-04-2021 09:38-0400 Heart rate 73 /min Riana Chinchilla APRN-FIBER PICKER Work Phone: [facility] 07-04-2021 09:38-0400 Systolic blood pressure 119 mm[Hg] Riana Chinchilla SPINNING OPERATOR-FIBER PICKER Work Phone: [facility] Encounters Encounter Date Encounter Type Care Provider Facility Start: 05-28-2023 [facility] Facility: [facility] Start: 04-22-2023 End: 04-22-2023 ambulatory DONOVAN BURKS Not Available Start: 04-22-2023 End: 04-22-2023 Office outpatient visit 15 minutes Donovan Lorenzo DO Work Phone: [facility] Comment on above: Encounter for fertil ity planning Start: 02-14-2023 ambulatory [facility] Facility: [facility] Start: 02-14-2023 End: 02-14-2023 Office outpatient visit 25 minutes Riana Chinchilla SPINNING OPERATOR-FIBER PICKER Work Phone: [facility] 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); 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 Start: 01-15-2023 End: 01-15-2023 ambulatory EVY VERMA Facility:[facility] Start: 01-15-2023 End: 01-15-2023 Subsequent hospital visit by physician Evy Verma MD Work Phone: [facility] 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 Start: 01-09-2023 [facility] Facility: [facility] Start: 01-09-2023 Encounter for other preprocedural examination ESAU HERNANDEZ Facility:[facility] Start: 01-09-2023 End: 01-09-2023 Office consultation new/estab patient 60 min Esau Hernandez PAC Work Phone: Pre-Procedure Evaluation and [facility] Comment on above: Preop exam for inter nal medicine (Primary Dx); Jeavons syndrome; 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 Start: 01-09-2023 End: 01-09-2023 Patient encounter status Esau Hernandez PAC Work Phone: [facility] Start: 01-09-2023 End: 01-09-2023 Subsequent hospital visit by physician Evy Verma MD Work Phone: [facility] Comment on above: Arrived Start: 12-10-2022 ambulatory TIM HAYLIE Facility: [facility] Start: 12-10-2022 End: 12-10-2022 Office outpatient new 45 minutes Evy Verma MD Work Phone: [facility] 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) Start: 11-27-2022 ambulatory TIM BALL Facility: [facility] Start: 11-19-2022 ambulatory TIM BALL Facility: [facility] Start: 11-14-2022 ambulatory [facility] Facility: [facility] Start: 11-08-2022 ambulatory TIM HAYLIE Facility: [facility] Start: 11-08-2022 End: 11-08-2022 Office outpatient visit 40 minutes Riana Chinchilla SPINNING OPERATOR-FIBER PICKER Work Phone: Neurology [facility] 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) Start: 09-19-2022 ambulatory TIM BALL Facility: [facility] Start: 09-13-2022 ambulatory RIANA CHINCHILLA Facilit y:[facility] Start: 05-23-2022 End: 05-24-[address] DONOVAN BURKS . Facility:[facility] Start: 04-30-2022 End: 05-01-[address] DOCTOR ASHTON Facility:[facility] Start: 04-16-2022 End: 04-17-[address] DONOVAN BURKS . Facility:[facility] Start: 04-15-2022 End: 04-16-[address] DONOVAN BURKS . Facility:[facility] Start: 08-27-2021 End: 08-27-[address] DONOVAN BURKS . Facility:[facility] Start: 07-04-2021 End: 07-04-2021 Office outpatient visit 25 minutes Riana Chinchilla SPINNING OPERATOR-FIBER PICKER Work Phone: Neurology [facility] Comment on above: Generalized nonconvu lsive epilepsy (Primary Dx) Start: 06-24-2018 Encounter for gynecological examination (general) (routine) without abnormal findings NA NONE PER PATIENT [facility] Start: 06-24-2018 End: 06-24-2018 Patient encounter procedure GERARDO WARD Facility:[facility] Start: 05-25-2018 End: 05-25-2018 Patient encounter procedure . NONE PER PATIENT Facility:[facility] Start: 05-13-2018 End: 05-13-2018 Patient encounter procedure . NONE PER PATIENT Facility:[facility] Start: 03-23-2018 End: 03-24-2018 Patient encounter procedure [facility] Start: 03-20-2018 End: 03-21-2018 Patient encounter procedure [facility] Procedures Date Procedure Procedure Detail Performing Clinician [...] By: #### C D #### Performed at [facility] [place] [address] Start: 03-23-2018 PLATELET FUNCTION TEST JAMIL SMITH Plan of Treatment Date Care Activity Detail Author Start: 08-21-2023 End: 08-21-2023 Patient encounter procedure 08/21/2023 2:45 PM EDT Office Visit [facility] [address] [place] [phone] Cori Dia DO [address] [place] [address] [facility] Start: 05-28-2023 End: 05-28-2023 Patient encounter procedure 05/28/2023 2:00 PM EDT Office Visit [facility]rology [facility] [address] [place] [phone] Riana Chinchilla, SPINNING OPERATOR-FIBER PICKER [address] [place] [phone] [facility] Start: 02-14-2023 End: 02-14-2023 Patient encounter procedure [facility] Start: 01-15-2023 End: 01-15-2023 Admission to same day surgery center 01/15/2023 9:40 AM EST - 01/15/2023 11:50 AM EST Surgery [facility] [address] [place] [address] Evy Verma MD [address] [place] [phone] INSERTION REPLACEMENT NEUROSTIMULATOR GENERATOR CRANIAL/INTRACRANIAL [facility] Comment on above: INSERTION REPLACEMENT NEUROSTIMULATOR GE NERATOR CRANIAL/INTRACRANIAL Start: 01-15-2023 End: 01-15-2023 Insj/rplcmt cranial neurostim pulse generator INSERTION REPLACEMENT NEUROSTIMULATOR GENERATOR CRANIAL/INTRACRANIAL Jeavons syndrome 01/15/2023 9:40 AM EST [facility] Start: 01-15-2023 Subsequent hospital visit by physician 01/15/2023 9:40 AM EST Hospital Encounter [facility] [address] [place] [address] Evy Verma MD [address] [place] [phone] Jeavons syndrome [facility] 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 Start: 12-10-2022 End: 12-11-2023 Radiographic imaging procedure XR STIMULATOR/INTRATHECAL PUMP Imaging Routine Jeavons syndrome Expected: 12/10/2022, Expires: 12/11/2023 [facility] Comment on above: Expected: 12/10/2022, Expires: Start: 12-10-2022 End: 12-10-2022 Patient encounter procedure 12/10/2022 11:30 AM EDT Office Visit [facility] [address] [place] [phone] Evy Verma MD [address] [place] [address], [place] [phone] [facility] Start: 11-08-2022 Influenza vaccination INFLUENZA VACCINE (#1) [facility] Start: 01-04-2022 End: 01-04-2022 Patient encounter procedure 01/04/2022 Office Visit Neurology Cori Dia, [address] [place] [address] Neurology [facility] Start: 11-08-2021 Influenza vaccination INFLUENZA VACCINE (Season Ended) [facility] Start: 10-10-2021 End: 10-10-2021 Telemedicine consultation with patient 10/10/2021 Telemedicine Neurology Riana Chinchilla, SPINNING OPERATOR-FIBER PICKER [address] [place] [address] [facility]rology [facility] Start: 08-15-2021 End: 08-15-2021 Telemedicine consultation with patient 08/15/2021 Telemedicine Neurology Riana Chinchilla, SPINNING OPERATOR-FIBER PICKER [address] [place] [address] [facility] Start: 2013 Screening for malignant neoplasm of cervix CERVICAL CANCER SCREENING DISCUSSION [facility] Start: 07-15-2011 Third diphtheria, tetanus and acellular pertussis (DTaP) vaccination TDAP (ADULT) [facility] Start: 2010 Tetanus vaccination TETANUS [facility] Start: 07-15-2007 HIV screening HIV SCREENING DISCUSSION [facility] Start: 1997 COVID-19 VACCINE (1) COVID-19 VACCINE (1) [facility] Start: 01-14-1993 COVID-19 VACCINE (#1) COVID-19 VACCINE (#1) [facility] Start: 1992 Hepatitis B vaccination HEP B VACCINE (1 of 3 - 3-dose series) [facility] Start: 1992 Hepatitis C antibody, confirmatory test HEPATITIS C VIRUS SCREENING [facility] Start: 1992 Hepatitis C screening HEPATITIS C VIRUS SCREENING [facility] Start: 1992 Tetanus vaccination TETANUS [facility] Ecg routine ecg w/le ast 12 lds w/i&r AR ELECTROCARDIOGRAM, COMPLETE AR - OFFICE PERFORMED Routine 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 Ordered: 01/09/2023 [facility] Comment on above: Ordered: 01/09/2023 Elec horace implt smpl cn npgt prgrmg AR ELEC HORACE IMPLT SMPL CN NPGT PRGRMG AR Charge Routine Jeavons syndrome Ordered: 11/14/2022 [facility] Comment on above: Ordered: 11/14/2022 Elec horace implt smpl cn npgt prgrmg AR ELEC HORACE IMPLT SMPL CN NPGT PRGRMG AR Charge Routine 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 Ordered: 03/12/2023 [facility] Comment on above: Ordered: 03/12/2023 Insj/rplcmt cranial neurostim pulse generator INSERTION REPLACEMENT NEUROSTIMULATOR GENERATOR CRANIAL/INTRACRANIAL Jeavons syndrome [facility] Noninvasive ear/puls e oximetry single deter AR NONINVASV OXYGEN SATUR; SINGLE AR - OFFICE PERFORMED Routine 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 2021 Medicaid [employer] [place] [id number] 2021-Present [address] [place] [address] [id number] 2016 Unknown [id number] 2016 Self-pay 2014 Unknown [id number] 1992 Unknown [id number] 2..840.1.704669.3.579.2.173 1992 Unknown [id number] 2.16840.1.631082.3.579.2.173 1992 Unknown [id number] 2.16840.1.701176.3.579.2.75 1992 Unknown [id number] 2.16.840.1.931543.3.579.2.75 1992 Unknown [id number] 2.16.840.1.387589.3.579.2.754 1992 Unknown [id number] 2.16.840.1.597900.3.579.2.754 1992 Unknown [id number] 2.16.840.1.137300.3.579.2.593 1992 Unknown [id number] 2.16.840.1.708722.3.579.2.593 1992 Unknown [id number] 2.16.840.1.295130.3.579.2.593 1992 Unknown [id number] 2.16.840.1.810295.3.579.2.593 1992 Unknown [id number] 2.16.840.1.183698.3.579.2.593 1992 Unknown [id number] 2.16840.1.615699.3.579.2.1259 1992 Unknown [id number] 2.840.1.022054.3.579.2.594 1992 Unknown [id number] 2.840.1.451443.3.579.2.594 1992 Unknown [id number] 2.840.1.457115.3.579.2.594 1992 Unknown [id number] 2.840.1.013856.3.579.2.594 1992 Unknown [id number] 2.16840.1.540369.3.579.2.594 1992 Unknown [id number] 2.840.1.356233.3.579.2.594 1992 Unknown [id number] 2.16840.1.434766.3.579.2.594 1992 Unknown [id number] 2.16840.1.968121.3.579.2.594 1992 Unknown [id number] 2.16840.1.365172.3.579.2.594 1992 Unknown [id number] 2.16840.1.701985.3.579.2.594 1992 Unknown [id number] 2.16.840.1.118894.3.579.2.594 1992 Unknown [id number] 2.16.840.1.892568.3.579.2.594 1992 Unknown [id number] 2.16.840.1.690071.3.579.2.594 1992 Unknown [id number] 2.16.840.1.249620.3.579.2.594 1959 Unknown [id number] 1959 Unknown [id number] Social History Date Type Detail Facility Start: 10-28-2019 End: 09-11-2022 Tobacco smoking status NHIS Never smoked tobacco [facility] Start: 10-28-2019 End: 09-11-2022 Tobacco use and exposure Smokeless tobacco non-user [facility] Start: 10-28-2019 Alcohol intake Current drinker of alcohol (finding) [facility] Start: 10-28-2019 History SDOH Alcohol Frequency 2 [facility] Start: 10-28-2019 History SDOH Alcohol Comment rare wine [facility] Start: 10-28-2019 Education 17 [facility] Start: 1992 Sex Assigned At Not on file [facility] Start: 11-08-2022 End: 02-14-2023 Alcohol intake Ex-drinker (finding) [facility] Start: 10-28-2019 End: 09-11-2022 History of Social function [facility] Start: 10-28-2019 End: 09-11-2022 Alcohol Use Disorder Identification Test - Consumption [AUDIT-C] [facility] How often to you hav e a drink containing alcohol? Monthly or less [facility] Average Number of Drinks Not on file [facility] Start: 10-29-2019 Gender identity Identifies as female gender (finding) [facility] Start: 10-29-2019 Sexual orientation Heterosexual (finding) [facility] Start: 02-14-2023 Tobacco Comment Never [facility] Start: 02-14-2023 Alcohol Comment At most one or two drinks a month. [facility] Start: 04-22-2023 Alcohol intake Not Asked [facility] Start: 08-07-2022 Alcohol Comment Occasional alcohol use [facility] Healthcare Medical Equipment Procedure Code Equipment Code Equipment Origin al Text Equipment Identifier Dates Vandana [id number] Start: 01-15-2023 Clinical Notes 07-04-2021 to 04-22-2023 Donovan Burks DO - 04/22/2023 1:00 PM ESTCrystal Duy Chinchilla APRN-DAI - 02/14/2023 4:00 PM ESTPatient [...] nursing note reviewed. Exam conducted with a front of house manager present. Vitals: Estimated body mass index is [...] Donovan Burks DO documented in this encounter [facility] 02-14-2023 History of Present illness Narrative Images from the original note were not included. Rowena Byers was seen in the [facility] on 02/14/2023. She is here today for a follow-up in clinic accompanied by her , Pedro. She was last seen on 04/19/[address] Cori Dennis DO and with me 11/08/2022. History of [...] 24 hours. 2 Each 0 Prenat MV-Min w/Zn-Wqddbv-COB ( COMPLETE PO) Take 1 tablet by [...] System Diagnostic Patient ID ABW Model ID Vandana Serial # [id number] Implanted 01/15/2023 Communication OK Output Current Status [...] VNS Simple Reprogramming (1-3 changes) CPT code 95435 Assessment and Plan Assessment: Rowena is a [...] longer than 5 minutes. Encouraged use of [employer] to send messages to provider as needed for questions and concerns or can call our clinic @ [phone]. She will return in 3 months with me and [address] Dennis or sooner if clinically indicated. Signed, Riana Chinchilla MSN, SPINNING OPERATOR-FIBER PICKER [facility] Department of Neurology - Epilepsy Division [address] [place] [address] - 7th floor [place] [phone] Pager: [phone] I spent a total of 34 minutes on the date of the service which included preparing to see the patient, dupe-ru-menk patient care, completing clinical documentation, performing a medically appropriate examination and counseling and educating the patient/family/caregiver. Note to patient: The Century Cures Act makes medical notes like these available to patients in the interest of transparency. However, be advised this is a medical document. It is intended as uxps-ze-lspr communication. It is written in medical language and may contain abbreviations or verbiage that are unfamiliar. It may appear blunt or direct. Medical documents are intended to carry relevant information, facts as evident, and the clinical opinion of the practitioner. documented in this encounter [facility] 02-14-2023 Instructions JETHRO Juan - 02/14/2023 4:00 [...] after regular office hours, a neurologist is cardiothoracic surgeon for urgent issues. Call the neurology office number ([phone]) to reach the neurologist cardiothoracic surgeon if you are continuing to experience many more seizures than usual despite use of your rescue medications. Please try to remember that the neurologist cardiothoracic surgeon may not have access to your complete medical record and may not be as familiar with your history. If you have access through [facility], you can contact us through that system as well. If you have documents that need completed or sent to our clinic, please have them faxed to [phone]. It is always best to call during [...] the refill is ready for you to picker packer. Seizure First Aid Training Can Be Found Here (it's free!): [email or web address] documented in this encounter [facility] 01-15-2023 Miscellaneous Notes [facility] OPERATIVE REPORT PATIENT NAME: Rowena Byers [...] The IPG had been interrogated by the hobbies and crafts sales representative from the vendor. The upper chest [...] the new IPG and secured with the stapler coil unit's screwdriver. At this point, a lead programmer analyst was used to interrogate the [...] VSS, anesthesia sign out completed. 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 SURGEON Surgeon(s) and Role: * Evy Verma MD - Primary ANESTHESIOLOGIST Anesthesiologist: Cydney Zavala MD OVERHAULER HELPER: Geraldo Marion APRN-OVERHAULER HELPER Student Nurse Fishing Floats Assembler: Chiquita Polanco SURGICAL STAFF Pig Machine Supervisor: Miki Gary RN; Linda Gilmore RN Relief Pig Machine Supervisor: Janet Carreon RN Scrub Person: Marielle Ibrahim Resident Assisting: Colt Meadows MD COMPLICATIONS None ESTIMATED BLOOD LOSS Minimal SPECIMENS No specimen sent * No specimens in log * Colt Meadows MD January 15, 2023 11:03 AM documented in this encounter [facility] 01-15-2023 Nurse Note Pt and family were given AVS and verbalize understanding of instructions. Pt discharged via wheelchair. [facility] 01-15-2023 Surgery Postoperative evaluation and management note [facility] OPERATIVE REPORT PATIENT NAME: Rowena Byers [...] The IPG had been interrogated by the hobbies and crafts sales representative from the vendor. The upper chest [...] the new IPG and secured with the stapler coil unit's screwdriver. At this point, a lead programmer analyst was used to interrogate the [...] and performed the critical portions. [facility] 01-15-2023 Nurse Note Report called to RN SPR, VSS, anesthesia sign out completed. 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 SURGEON Surgeon(s) and Role: * Evy Verma MD - Primary ANESTHESIOLOGIST Anesthesiologist: Cydney Zavala MD OVERHAULER HELPER: Geraldo Marion APRN-OVERHAULER HELPER Student Nurse Fishing Floats Assembler: Chiquita Polanco SURGICAL STAFF Pig Machine Supervisor: Miki Gary RN; Linda Gilmore RN Relief Pig Machine Supervisor: Janet Carreon RN Scrub Person: Marielle Ibrahim Resident Assisting: Colt Meadows MD COMPLICATIONS None ESTIMATED BLOOD LOSS Minimal SPECIMENS No specimen sent * No specimens in log * Colt Meadows MD January 15, 2023 11:03 AM [facility] 01-15-2023 Nurse Surgical operation note Report given to SEWER PIPE CLEANER. Patient transported to PACU with anesthesia on a cart and oxygen. [facility] 01-15-2023 Nurse Note Report given to SEWER PIPE CLEANER. Patient transported to PACU with anesthesia on a cart and oxygen. documented in this encounter [facility] 01-15-2023 Hospital Discharge instructions Colt Meadows MD - 01/15/2023 9:30 AM EST Discharge Instructions for DBS Surgery & Battery Placement Surgery Here are some general guidelines to assist you in your recovery at home. Please do not hesitate to call us with any questions or concerns you may have. We can be reached at [phone]. Your appointmentS will be in the Neuromodulation clinic in [address] Incision Care: If you have a [...] 101 degrees F documented in this encounter [facility] 01-15-2023 History and physical note PERIOPERATIVE SURGICAL [...] by Evy Verma MD, 01/15/2023, 9:08 AM. [facility] Work Phone: 01-15-2023 History and physical note [...] 01/15/2023, 9:08 AM. documented in this encounter [facility] 01-09-2023 History and physical note [...] 10 mg in 24 hours. Prenat MV-Min w/Di-Tzcgrj-GMA ( COMPLETE PO) Take 1 tablet by [...] % ointment HCG QUALITATIVE, URINE Pulse Ox AR ECG, CLINIC PERFORMED Lab A/P - Labs [...] patient has been medically OPTIMIZED FOR SURGERY. 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 Tobacco Use Smoking status: Never Smokeless tobacco: Never Vaping Use Vaping Use: Never used Substance and Sexual Activity Alcohol use: Not Currently Comment: rare wine Drug use: Not Currently Types: Marijuana Sexual activity: Yes Partners: Male control/protection: None [facility] 01-09-2023 History and physical note Images from the original note were not included. History of Present Illness Ms. Byers is a 32 y.o. female is being evaluated in [facility] due to her medical condition of Jeavons [...] 10 mg in 24 hours. Prenat MV-Min w/La-Dvolce-BBM ( COMPLETE PO) Take 1 tablet by [...] % ointment HCG QUALITATIVE, URINE Pulse Ox AR ECG, CLINIC PERFORMED Lab A/P - Labs [...] patient has been medically OPTIMIZED FOR SURGERY. 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 Tobacco Use Smoking status: Never Smokeless tobacco: Never Vaping Use Vaping Use: Never used Substance and Sexual Activity Alcohol use: Not Currently Comment: rare wine Drug use: Not Currently Types: Marijuana Sexual activity: Yes Partners: Male control/protection: None documented in this encounter [facility] 01-09-2023 History of Present illness Narrative The [...] seizures. She takes Lamictal for treatment 4. Neuropsychologist--patient states she is actively trying to get . Will check hCG today and on day of surgery. Patient understands that surgery may be cancelled if she is . Anesthesia Assessment:No contraindications to planned surgery. Pending review of the patient's labs.ECG reviewed. Whitney Ward MD [facility] Preoperative Assessment Center documented in this encounter [facility] 01-09-2023 Instructions Robyn Dempsey LPN - 01/09/2023 [...] take Herbal Medication (including multi-vitamin, fish oil (Corning-3), garlic, Glucosamine - Chondroitin ,gingko, ginseng, Vitamin [...] site one week prior to surgery. - [place] your teeth and rinse your mouth the morning of surgery. - Do NOT bring your dentures or partials with you into surgery. They may be lost. Give them to someone to bring to you after surgery. If you are unable to complete your scheduled testing or appointments made by [facility] please contact [facility] at [phone]. Failure to do so could delay or [...] surgery, please notify our team immediately at [phone]. - If you have Sleep apnea and have a CPAP or BIPAP, then bring your CPAP mask and machine with you to the hospital. Please contact Medical Information Management Department for all records requests. [phone] Puma/mateo documented in this encounter [facility] 12-10-2022 History of Present illness Narrative Neurosurgery [...] that were dedicated to clinical evaluation, including yfyg-ug-pwjx time; counseling and education; chart completion; reviewing [...] aspirin, excedrin, plavix), multivitamins/minerals/herbal supplements (such as Corning-3, garlic, Glucosamine - Chondroitin, gingko, ginseng, Vitamin E, fish oil, etc), non-steroidal anti-inflammatory medications (NSAIDs) (such as Ibuprofen/Motrin/Advil, Aleve, Celebrex) for 10 days prior to surgery, as these are blood thinners. She was advised that Tylenol is the preferred option for pain. She stated understanding. documented in this encounter [facility] 11-08-2022 History of Present illness Narrative Images from the original note were not included. Rowena Byers was seen in the [facility] at [facility] [place] [facility] on 11/08/2022. She is here today for a follow-up in clinic accompanied by her , Pedro. She was last seen on 04/19/[address] Cori Dennis, and with ks 09/19/22. History of Present Illness INTERVAL HISTORY: [...] ID AW Model ID SenTiva Serial # [id number] Implanted 03/27/2018 Communication OK Output Current Status [...] VNS Simple Reprogramming (1-3 changes) CPT code 47671 Assessment and Plan Assessment: Rowena is a [...] would like to wait Encouraged use of [employer] to send messages to provider as needed for questions and concerns or can call our clinic @ [phone]. She will return in 2 months or sooner if clinically indicated. Signed, Riana Chinchilla MSN, SPINNING OPERATOR-FIBER PICKER [facility] Department of Neurology - Epilepsy Division [address] - 7th floor [place] [address] Pager: [phone] I spent a total of 46 minutes on the date of the service which included preparing to see the patient, [id number] patient care, completing clinical documentation, performing a medically appropriate examination and counseling and educating the patient/family/caregiver. Note to patient: The Cures Act makes medical notes like these available to patients in the interest of transparency. However, be advised this is a medical document. It is intended as arvj-me-rgld communication. It is written in medical language and may contain abbreviations or verbiage that are unfamiliar. It may appear blunt or direct. Medical documents are intended to carry relevant information, facts as evident, and the clinical opinion of the practitioner. documented in this encounter [facility] 11-08-2022 Instructions JETHRO Juan - 11/08/2022 4:20 [...] ID AW Model ID SenTiva Serial # [id number] Implanted 03/27/2018 Communication OK Output Current Status OK Current Delivered 1.75 Lead Impedance OK Impedance Value 2903 IFI NO Average # of Inhibited Auto stimulations Daily Avg. Stim % Per Day %Therapy Normal 843.56 AutoStim 26.89 Magnet 0.04 Total 870.50 documented in this encounter [facility] 07-04-2021 Instructions JETHRO Juan - 07/04/2021 9:06 AM EDT Drug name: Depakote ER Pill strength: 250 mg Drug name: Vimpat Pill strength: 100 mg Week 1 Start: 1 tablet in the evening 1/2 tab in the morning, 1/2 tab in the evening Week 2 Start: STOP 1 tablet twice daily and continue Follow up in 4-6 weeks with Riana documented in this encounter [facility] 07-04-2021 History of Present illness Narrative Images from the original note were not included. Rowena Byers was seen in the [facility] at [facility] on 07/04/2021. 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 Tobacco Use Smoking status: Never Smoker Smokeless [...] could result in psychomotor delay in the infant. - We talked extensively about getting while [...] can cause breakthrough seizures. Encouraged use of [employer] to send messages to provider as needed for questions and concerns or can call our clinic @ [phone]. She will return in 6 weeks and 3 months with me and [address] Dennis or sooner if clinically indicated. Signed, Riana Chinchilla MSN, SPINNING OPERATOR-FIBER PICKER [facility] Department of Neurology - Epilepsy Division [address] [place] [address] - 7th floor [place], [place] [address] Pager: [phone] Time to complete visit: I spent approximately 38 minutes reviewing the chart prior to the appointment, in face to face counseling with the patient, and with documentation after the visit. 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 [facility] Jeavons syndrome- Primary [facility] Diagnosis Jeavons syndrome- Primary [facility] Diagnosis Jeavons syndrome Jeavons syndrome [facility] Diagnosis Preop exam for internal medicine- Primary Other specified pre-operative examination 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 Other postprocedural status Jeavons syndrome [facility] 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 Other postprocedural status [facility] Encounter for fertility planning [facility] Consultation (Routine) - New Request Specialty Diagnoses / Procedures Referred By Rainer ramos Referred To Contact Neurologic Surgery Diagnoses Jeavons syndrome Evy Verma MD [address] [place] [address] Referral ID Status Reason Start Date Expiration Date V isits Requested Visits Authorized [id number] New Request 12/10/2022 01/04/2024 1 1 [facility] Family History No Family [...] Contact Diagnoses Generalized nonconvulsive epilepsy Riana Chinchilla, SPINNING OPERATOR-FIBER PICKER [address] [place] [address] Referral ID Status Reason Start Date Expiration Date V isits Requested Visits Authorized [id number] Pending Review 1 1 Specialty Diagnoses / Procedures Referred By Contac t Referred To Contact Procedures DVT/VTE RISK ASSESSMENT Evy Verma MD [address] [place] [address] Referral ID Status Reason Start Date Expiration Date V isits Requested Visits Authorized [id number] New Request 01/15/2023 02/09/2024 1 1 Additional Source Comments INFORMATION SOURCE (unrecogn ized section and content) DATE CREATED AUTHOR 09/03/2017 [facility] DATE CREATED AUTHOR AUTHOR'S ORGANIZ ATION 03/28/[address] [facility] DATE CREATED AUTHOR AUTHOR'S ORGANIZ ATION 07/02/2018 [facility] DATE CREATED AUTHOR AUTHOR'S ORGANIZ ATION 10/02/2019 [facility] DATE CREATED AUTHOR AUTHOR'S ORGANIZ ATION 06/01/2022 [facility] DATE CREATED AUTHOR AUTHOR'S ORGANIZ ATION 04/24/2023 [facility] EPIC DATE CREATED AUTHOR AUTHOR'S ORGANIZ ATION 05/29/2023 [facility] EPIC DATE CREATED AUTHOR AUTHOR'S ORGANIZ ATION 05/29/2023 [facility] Reason for Visit (unrecogniz ed section and content) Reason Comments Follow-up Reason Comments Follow-up Reason Comments New Patient 32 y.o female here f or consult. Specialty Diagnoses / Procedures Referred By Contac t Referred To Contact Neurologic Surgery Diagnoses Jeavons syndrome S/P placement of VNS (vagus nerve stimulation) device Riana Chinchilla, SPINNING OPERATOR-FIBER PICKER [address] [place] [phone] Referral ID Status Reason Start Date Expiration Date V isits Requested Visits Authorized [id number] New Request 09/19/2022 10/14/2023 1 1 Reason Comments Preoperative Assessment Specialty Diagnoses / Procedures Referred By Contac t Referred To Contact Neurologic Surgery Diagnoses Jeavons syndrome Evy Verma MD [address] [place] [phone] Referral ID Status Reason Start Date Expiration Date V isits Requested Visits Authorized [id number] New Request 12/10/2022 01/04/2024 1 1 Specialty Diagnoses / Procedures Referred By Contac t 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] Procedures AR IMP STIM,CRANIAL,SUBQ,1 ARRAY INSERTION REPLACEMENT NEUROSTIMULATOR GENERATOR CRANIAL/INTRACRANIAL Evy Verma MD [address] [place] [phone] [facility] [address] [place] [address] Referral ID Status Reason Start Date Expiration Date Visits Re quested Visits Authorized [id number] 1 1 Reason Comments Infertility Care Teams (unrecognized sec tion and content) Night Baker Relationship Specialty Start Date End Date Tim Rolon DO [address] [place] [address] PCP - General Internal Medicine 09/19/22 Riana Chinchilla, SPINNING OPERATOR-FIBER PICKER [address] [place] [phone] Certified Nurse Practitioner 11/08/22 Night Baker Relationship Specialty Start Date End Date Tim Rolon DO [address] [place] [address] PCP - General Internal Medicine 09/19/22 Riana Chinchilla, SPINNING OPERATOR-FIBER PICKER [address] [place] [phone] Certified Nurse Practitioner 11/08/22 Night Baker Relationship Specialty Start Date End Date Tim Rolon DO [address] [place] [id number] PCP - General Internal Medicine 09/19/22 Riana Chinchilla, SPINNING OPERATOR-FIBER PICKER [address] [place] [phone] Certified Nurse Practitioner 11/08/22 Night Baker Relationship Specialty Start Date End Date Tim Rolon DO [address] [place] [id number] PCP - General Internal Medicine 09/19/22 Riana Chinchilla, SPINNING OPERATOR-FIBER PICKER [address] [place] [phone] Certified Nurse Practitioner 11/08/22 Night Baker Relationship Specialty Start Date End Date Tim Rolon DO [address] [place] [id number] PCP - General Internal Medicine 09/19/22 Riana Chinchilla, SPINNING OPERATOR-FIBER PICKER [address] [place] [phone] Certified Nurse Practitioner 11/08/22 Night Baker Relationship Specialty Start Date End Date Tim Rolon DO [address] [place] [address] PCP - General Internal Medicine 09/19/22 Riana Chinchilla, SPINNING OPERATOR-FIBER PICKER [address] [place] [address] Certified Nurse Practitioner 11/08/22 Night Baker Relationship Specialty Start Date End Date Tim Rolon MD [address] [place] [address] PCP - General Internal Medicine 08/08/22 Scheduled [...] - Comment: mixed 1:1 w/Lido with epi 1:604903) ceFAZolin (ANCEF) 2 g in dextrose 100 mL premix IVPB (COMPLETED) 2 g, Intravenous, Administer over 30 Minutes, FOOD SERVICE TO PROCEDURE, 1 dose, Starting on Fri01/15/23 at 0758, Until Discontinued, Other, Surgical Prophylaxis, Initiate antibiotic administration 30-60 minutes prior to surgical incision and complete administration prior to surgical incision., Pre-op/Pre-Proc 0955 (Given - Provid er: Geraldo Marion, SPINNING OPERATOR-OVERHAULER HELPER) lidocaine-epinephrine 2 %-1:115198 injection (CANCELED) NEEDED, Starting on Fri01/15/23 at [...] Order-specific weight), Intravenous, Administer over 1 Hours, FOOD SERVICE TO PROCEDURE, 1 dose, Starting on Fri01/15/23 [...] BE BASED ON THE PRIMARY CLINICAL RECORDS. [facility] [employer] [facility]. provides no warranty or guarantee of the accuracy or completeness of information in this document.
[2023-06-10 04:08] LABS: Progesterone 20.7 ng/mL (.)
== END 2023-06-08 10:56 | disposition home or self-care (01) ==
PROVIDERS: PCP Internal Medicine; Visit Provider Obstetrics & Gynecology
DX: N92.6 Irregular menstruation, unspecified (principal); E28.2 Polycystic ovarian syndrome
CPT/HCPCS: 36415; 84144

== ENCOUNTER 2023-06-27 09:32 | Day surgery (SDC) | payer OTHER, SELFPAY ==
--- NOTE | 2023-06-27 09:45 | FL_ITS ---
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 TECHNIQUE: Informed consent was obtained. A sterile vaginal speculum was introduced and, following cleansing of the cervix, a balloon-tipped catheter was inserted into the endometrial cavity. The procedure was then completed in the usual manner with water-soluble contrast. Standard level fluoroscopic mode of operation utilized. FINDINGS: FALLOPIAN TUBES: Slight delay in spillage of contrast from left fallopian tube. Fallopian tubes are now patent bilaterally. ENDOMETRIAL CAVITY: No scarring, filling defects, or dilatation. OTHER: Negative. FL/FL hysterosalpingography IMPRESSION: 1. Normal appearance of uterus. 2. Bilateral patent fallopian tubes (initially there was delay in spillage of contrast from left fallopian tube). Electronically authenticated by: CYDNEY VALDEZ Date: 06/27/2023 11:28
--- NOTE | 2023-06-27 09:45 | FL_ITS ---
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 TECHNIQUE: Informed consent was obtained. A sterile vaginal speculum was introduced and, following cleansing of the cervix, a balloon-tipped catheter was inserted into the endometrial cavity. The procedure was then completed in the usual manner with water-soluble contrast. Standard level fluoroscopic mode of operation utilized. FINDINGS: FALLOPIAN TUBES: Slight delay in spillage of contrast from left fallopian tube. Fallopian tubes are now patent bilaterally. ENDOMETRIAL CAVITY: No scarring, filling defects, or dilatation. OTHER: Negative. FL/FL Hysterosal cath placement IMPRESSION: 1. Normal appearance of uterus. 2. Bilateral patent fallopian tubes (initially there was delay in spillage of contrast from left fallopian tube). Electronically authenticated by: CYDNEY VALDEZ Date: 06/27/2023 11:28
--- OUTSIDE RECORDS SUMMARY | 2023-06-27 09:45 | XMS_ITS | CCD ---
Author Organization [facility] Care Team Providers Care Team Guide Name Role Phone JAMIL SMITH Referring Unavailable [...] Unavailable Tim Rolon DO Primary Care Provider [phone] Raoul MANAGED CARE ANALYST-CONVERSION MAN, Crystal G Unavailable Tim Rolon MD Primary [...] Primary Care Unavailable ESAU HERNANDEZ Attending Unavailable VERMA, EVY C Referring Unavailable BALL, TIM Primary Care Unavailable VERMA, EVY C Attending Unavailable VERMA, EVY C Attending Unavailable BALL, TIM Primary Care Unavailable VERMA, EVY C Referring Unavailable Allergies Allergy Classification Reported Allergen(s) Allergy Type Date of Onset Reaction(s) Facility (8 sources) Seasonal allergy Propensity to adverse reactions to drug 7 Runny Nose, Congestion [facility] Work Phone: (2 sources) Pollen Propensity to adverse reactions 7 Runny nose [facility] Healthcare (2 sources) Other Propensity to adverse reactions 2 Runny nose [facility] Healthcare Medications Current Medications Medication Drug Class(es) Dates Sig (Normalized) Sig (Original) 8 hr acetaminophen 650 mg extended release oral tablet (4 sources) Start: 01-15-2023 take 1 tablet by mouth every six hours as needed acetaminophen 650 MG Tab CR Take 1 tablet by mouth every 6 hours as needed for Mild Pain. 01/15/2023 Active Start: 01-15-2023 End: 01-15-2023 take 1 tablet by mouth every four hours as needed Acetaminophen (TYLENOL) tablet 650 mg cloBAZam 20 mg oral tablet (10 sources) Benzodiazepine Start: 10-17-2022 End: 04-20-2024 take 1 tablet by mouth once daily at dinner cloBAZam 20 MG tablet Indications: Jeavons syndrome Take 1 tablet by mouth Daily (with dinner). 30 tablet 5 04/20/2023 04/20/2024 Active Start: 04-30-2021 End: 04-30-2022 take 1 [...] daily 60 tablet 5 07/04/2021 07/05/2022 Active letrozole 2.5 mg oral tablet (7 sources) Aromatase Inhibitor Start: 04-18-2023 End: 04-23-2023 take 3 tablets by mouth once daily letrozole (Femara) 2.5 MG chemo tablet Indications: Female infertility Take 3 tablets (7.5 mg total) by mouth Daily for 5 days. 15 tablet 0 04/18/2023 04/23/2023 Active Start: 11-19-2022 take 1 tablet by josh th once daily at bedtime Femara 2.5 MG tablet Take 1 tablet by mouth at bedtime. Cycle day 3,4 5, 6,7 7.5 mg 11/19/2022 Active loratadine 10 mg oral tablet (8 sources) loratadine 10 MG tablet Take 1 tablet by mouth as needed. Active 12 hr loratadine 5 mg / [...] crush, chew, or split. . 0 Active Magnesium glycinate (1 source) take 1000 mg by mouth once daily MAGNESIUM GLYCINATE PO Take 1,000 mg by mouth daily. Active magnesium oxide 400 mg oral tablet (2 sources) Start : 03-28 End: 07-25 take 1 tablet by mouth in the morning magnesium oxide (Mag-Ox) 400 MG tablet Indications: Other migraine without status migrainosus, not intractable (CMS/HCC) Take 1 tablet (400 mg) by mouth in the morning. 30 tablet 3 03/28/2023 07/26/2023 Active medroxyPROGESTERone acetate 10 mg oral tablet (4 sources) Progestin medroxyPROGESTER one 10 MG tablet Take 1 tablet by mouth as needed. Takes for 14 days each time needed Active metFORMIN hydrochloride 500 mg oral tablet (7 sources) Biguanide take 1 tablet by mouth at bedtime metFORMIN 500 MG tablet Take 1 tablet by mouth at bedtime. Active midazolam 50 mg/ml nasal spray (9 sources) Benzodiazepine Start : 10-02 Midazolam (Nayzilam) 5 MG/0.1ML Solution Indications: Seizure disorder 5 mg by Nasal route as needed. For seizure clusters longer than 5 minutes. May repeat in 10 minutes. Do not exceed 10 mg in 24 hours. 2 Each 10/02/2020 Active Start: 02-18-2019 midazolam HCl 50 MG/10ML Solution 10 mg by Nasal route. 0 02/18/2019 Active Multiple Vitamins-Minerals (CULTURELLE PROBIOTICS + MULTIV PO) (2 sources) Multiple Vitamin s-Minerals (CULTURELLE PROBIOTICS + MULTIV PO) Take by mouth 0 Active Prenat MV-Min w/Ly-Wyeklo-DX A ( COMPLETE PO) (5 sources) take 1 tablet by mouth once at bedtime Prenat MV-Min w/Zh-Wdjnbw-XAQ ( COMPLETE PO) Take 1 tablet by mouth at bedtime. Active take 1 tablet by mouth once at b edtime Prenat MV-Min w/Ol-Mmixtp-FCX ( COMPLETE PO) Take 1 tablet by mouth at bedtime. 0 Active MV-Min-Fe Fum-FA-DHA ( 1 PO) (2 sources) MV-Min- Fe Fum-FA-DHA ( 1 PO) Take by mouth. 0 Active sertraline 100 mg oral tablet (10 sources) Serotonin Reuptake Inhibitor Start: 05-28-2023 take 1.5 tablets by mouth at bedtime Sertraline 100 MG tablet Indications: Anxiety disorder, unspecified type Take 1.5 tablets by mouth at bedtime. 45 tablet 2 05/28/2023 Active Start: 05-19-2023 End: 05-28-2023 Sertraline 100 MG tablet Ind ications: Anxiety disorder, unspecified type take 1 tablet at bedtime 90 tablet 3 05/19/2023 05/28/2023 Discontinued (Reorder) Start: 04-19-2022 Sertraline 100 MG tablet Indications: [...] by mouth every four hours as needed oxyCODONE-acetamin ophen (PERCOCET) 5-325 MG per tablet 1 tablet etonogestrel 68 mg drug implant (1 source) Progestin End: 07-04-2021 Etonogestrel 68 MG SC implant Inject 68 mg under the skin. 0 07/04/2021 Discontinued folic acid 1 mg oral tablet (10 sources) Start: 04-30-2021 End: 06-16-2023 take 1 tablet by mouth once daily at dinner Folic acid 1 MG tablet Take 1 tablet by mouth Daily (with dinner). 30 tablet 11 04/19/2022 06/16/2023 Discontinued 24 hr lamoTRIgine 300 mg extended release oral tablet (7 sources) Mood Stabilizer, Anti-epileptic Agent Start: 02-12-2023 End: 06-21-2023 take 1 tablet by mouth once daily at bedtime LamoTRIgine 300 MG Tab SR 24 HR Indications: Jeavons syndrome TAKE 1 TABLET BY MOUTH EVERYDAY AT BEDTIME 90 tablet 1 02/12/2023 06/21/2023 Discontinued Start: 11-26-2022 take 1 tablet by josh [...] AT BEDTIME 90 tablet 0 10/21/2022 Active LORazepam 0.5 mg oral tablet (9 sources) Benzodiazepine Start: 03-22-2022 End: 06-21-2023 LORazepam 0.5 MG tablet Indications: Anxiety disorder, unspecified type 1 tab up to three times a week as needed for anxiety 10 tablet 1 03/22/2022 06/21/2023 Discontinued melatonin 3 mg oral tablet (11 sources) Start: 03-22-2022 End: 02-14-2023 take 1 tablet by mouth once daily at bedtime Melatonin 3 MG tablet Indications: 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 Active mupirocin 0.02 mg/mg topical ointment (2 [...] Date Documented Da te Episodic/Chronic Anxiety disorders (8 sources) Anxiety disorder; Translations: [Anxiety disorder, unspecified] [...] Chronic Other nutritional; endocrine; and metabolic disorders (8 sources) Obese class II; Translations: [Obesity, unspecified] Onset: 10-28-2019 10-28-2019 Chronic Residual codes; unclassified (4 sources) Presence of other specified functional implants; Translations: [Presence of other specified functional implants] Onset: 03-20-2018 Chronic Residual codes; unclassified (10 sources) Past history of procedure; Translations: [Presence of other specified functional implants] Onset: 10-24-2011 10-05-2019 Chronic Past or Other Problems Problem Classification Problem Date Documented Date Episodic/Chronic Fracture of lower limb (20 sources) Closed pilon fracture; Translations: [Displaced pilon fracture of right tibia, initial encounter for closed fracture] Onset: 07-17-2016 10-28-2019 Episodic Genitourinary symptoms and ill-defined conditions (6 sources) Microscopic hematuria; Translations: [Other microscopic hematuria] Onset: 02-21-2011 12-06-2022 Episodic Immunizations and screening for infectious disease (1 source) Encounter for screening for human papillomavirus (HPV); Translations: [ENC SCREENING HUMAN PAPILLOMAVIRUS] Onset: 08-28-2021 Episodic Other aftercare (8 sources) Wound ; Translations: [Encounter for other specified surgical aftercare] Onset: 04-17-2018 10-05-2019 Episodic Other screening for suspected conditions (not mental disorders or infectious disease) (4 sources) Encounter for screening for malignant neoplasm of cervix; Translations: [ENC SCREENING MALIG NEOPLASM CERV] Onset: 08-27-2021 Episodic Residual codes; unclassified (8 sources) Dietary finding; Translations: [Other specified health status] Onset: 08-27-2017 10-05-2019 Episodic Results Test Name Value Interpretation Reference Range Facility BETA HCG, URINE (POC DEVICE) on 01-15-2023 Beta HCG ( test) Ql (U) Negative Negative [facility] Interpretation and review of laboratory results Normal [facility] Test performed at address of the patient encounter. [facility] CARDIAC RHYTHM (SCANNED)on 03-17-2022 [facility] CBC AND ELECTRONIC DIFFon Basophils (Bld) [#/Vol] 0.05 10*3/uL Normal 0.00-0.15 [facility] Comment on above: Performed By: #### L [id number] #### [facility] (DEFAULT) [address] [address] Basophils/100 WBC (Bld) 0.5 % Normal [facility] Comment on above: Performed By: #### L [id number] #### [facility] (DEFAULT) [address] [place] [address] DIFF STATUS Electronic Differential Normal [facility] Comment on above: Performed By: #### L [id number] #### [facility] (DEFAULT) [address] [place] [address] Eosinophils (Bld) [#/Vol] 0.12 10*3/uL Normal 0.00-0.4 2 [facility] Comment on above: Performed By: #### L [id number] #### [facility] (DEFAULT) [address] [address] Eosinophils/100 WBC (Bld) 1.2 % Normal [facility] Comment on above: Performed By: #### L [id number] #### [facility] (DEFAULT) [address] [place] [address] Hematocrit (Bld) [Volume fraction] 42.5 % Normal 34.9-44.3 [facility] Comment on above: Performed By: #### L [id number] #### [facility] (DEFAULT) [address] [address] Hemoglobin (Bld) [Mass/Vol] 14.3 g/dL Normal 11.4-15.2 [facility] Comment on above: Performed By: #### L [id number] #### [facility] (DEFAULT) [address] [address] Immature Grans % 0.3 % Normal [facility] Comment on above: Performed By: #### L [id number] #### [facility] (DEFAULT) [address] [address] Immature Grans Absolute < Normal <=0.08 [facility] Comment on above: Performed By: #### L [id number] #### [facility] (DEFAULT) [address] [place] [address] Lymphocytes (Bld) [#/Vol] 3.42 10*3/uL Normal 1.16-3.5 1 [facility] Comment on above: Performed By: #### L [id number] #### [facility] (DEFAULT) [address] [address] Lymphocytes/100 WBC (Bld) 32.9 % Normal [facility] Comment on above: Performed By: #### L [id number] #### [facility] (DEFAULT) [address] [address] MCV (RBC) [Entitic vol] 92.4 fL Normal 79.6-97.7 [facility] Comment on above: Performed By: #### L [id number] #### [facility] (DEFAULT) [address] [address] Mean Cell Hgb 31.1 pg Normal 25.9-33.9 [facility] Comment on above: Performed By: #### L [id number] #### [facility] (DEFAULT) [address] [address] Mean Cell Hgb Conc 33.6 g/dL Normal 31.4-35.9 [facility] Comment on above: Performed By: #### L [id number] #### [facility] (DEFAULT) [address] [address] Monocytes (Bld) [#/Vol] 0.62 10*3/uL Normal 0.22-0.87 [facility] Comment on above: Performed By: #### L [id number] #### [facility] (DEFAULT) [address] [address] Monocytes/100 WBC (Bld) 6.0 % Normal [facility] Comment on above: Performed By: #### L [id number] #### [facility] (DEFAULT) [address] [address] Nucleated RBC 0.0 /100 WBC Normal <=0.2 [facility] Comment on above: Performed By: #### L [id number] #### [facility] (DEFAULT) [address] [place] [address] Platelet mean volume (Bld) [Entitic vol] 10.8 fL Normal 8.5-12.2 [facility] Comment on above: Performed By: #### L [id number] #### [facility] (DEFAULT) [address] [place] [address] Platelets (Bld) [#/Vol] 326 10*3/uL Normal 150-393 [facility] Comment on above: Performed By: #### L [id number] #### [facility] (DEFAULT) [address] [place] [address] RBC (Bld) [#/Vol] 4.60 10*6/uL Normal 3.91-5.04 [facility] Comment on above: Performed By: #### L [id number] #### [facility] (DEFAULT) [address] [place] [address] RBC Distribution 13.1 % Normal 10.8-14.9 [facility] Comment on above: Performed By: #### L [id number] #### [facility] (DEFAULT) [address] [place] [address] Segs + Bands Auto 59.1 % Normal [facility] Comment on above: Performed By: #### L [id number] #### [facility] (DEFAULT) [address] [place] [address] Segs + Bands,Absolute Auto 6.14 K/uL Normal 1.64-7.28 [facility] Comment on above: Performed By: #### L [id number] #### [facility] (DEFAULT) [address] [place] [address] WBC (Bld) [#/Vol] 10.38 10*3/uL Normal 3.99-11.19 [facility] Comment on above: Performed By: #### L [id number] #### [facility] (DEFAULT) [address] [place] [address] Basophils (Bld) [#/Vol] 0.05 10*3/uL 0.00 - 0.15 K/uL [facility] Basophils/100 WBC (Bld) 0.5 % O [facility] Differential cell count method Nom (Bld) Electronic Differential [facility] Eosinophils (Bld) [#/Vol] 0.12 10*3/uL 0. 00 - 0.42 K/uL [facility] Eosinophils/100 WBC (Bld) 1.2 % [facility] Erythrocyte distribution width (RBC) [Ratio] 13.1 % 10.8 - 14.9 % [facility] Hematocrit (Bld) [Volume fraction] 42.5 % 34.9 - 44.3 % [facility] Hemoglobin (Bld) [Mass/Vol] 14.3 g/dL 11.4 - 15.2 g/dL [facility] Immature granulocytes (Bld) [#/Vol] K/uL NINF - 0.08 K/uL [facility] Immature granulocytes/100 WBC (Bld) 0.3 % [facility] Lymphocytes (Bld) [#/Vol] 3.42 10*3/uL 1. 16 - 3.51 K/uL [facility] Lymphocytes/100 WBC (Bld) 32.9 % [facility] MCH (RBC) [Entitic mass] 31.1 pg 25. 9 - 33.9 pg [facility] MCHC (RBC) [Mass/Vol] 33.6 g/dL 31.4 - 35.9 g/dL [facility] MCV (RBC) [Entitic vol] 92.4 fL 79.6 - 97.7 fL [facility] Monocytes (Bld) [#/Vol] 0.62 10*3/uL 0.22 - 0.87 K/uL [facility] Monocytes/100 WBC (Bld) 6.0 % [facility] Neutrophils (Bld) [#/Vol] 6.14 10*3/uL 1. 64 - 7.28 K/uL [facility] Nucleated RBC/100 WBC (Bld) [Ratio] 0.0 % NINF [facility] Platelet mean volume (Bld) [Entitic vol] 10.8 fL 8.5 - 12.2 fL [facility] Platelets (Bld) [#/Vol] 326 10*3/uL 150 - 393 K/uL [facility] RBC (Bld) [#/Vol] 4.60 10*6/uL [facility] Segmented neutrophils/100 WBC (Bld) 59.1 % [facility] WBC (Bld) [#/Vol] 10.38 10*3/uL 3.99 - 11 .19 K/uL [facility] CMPN WITHOUT GLUCOSEon 01-09 Albumin [Mass/Vol] 4.9 g/dL Normal 3.5-5.0 [facility] Comment on above: Performed By: #### C MPNG #### [facility] (DEFAULT) [address] [place] [address] ALP [Catalytic activity/Vol] 35 U/L Normal 32-126 [facility] Comment on above: Performed By: #### C MPNG #### [facility] (DEFAULT) [address] [place] [address] ALT [Catalytic activity/Vol] 19 U/L Normal 9-48 [facility] Comment on above: Performed By: #### C MPNG #### [facility] (DEFAULT) [address] [place] [address] Anion gap [Moles/Vol] 13 mmol/L Normal 7-17 [facility] Comment on above: Performed By: #### C MPNG #### [facility] (DEFAULT) [address] [place] [address] AST [Catalytic activity/Vol] 18 U/L Normal 10-39 [facility] Comment on above: Performed By: #### C MPNG #### [facility] (DEFAULT) [address] [place] [address] Bilirubin [Mass/Vol] 0.3 mg/dL Normal <1.5 [facility] Comment on above: Performed By: #### C MPNG #### [facility] (DEFAULT) [address] [place] [address] Calcium [Mass/Vol] 9.2 mg/dL Normal 8.6-10.5 [facility] Comment on above: Performed By: #### C MPNG #### [facility] (DEFAULT) [address] [place] [address] Chloride [Moles/Vol] 102 mmol/L Normal 98-108 [facility] Comment on above: Performed By: #### C MPNG #### [facility] (DEFAULT) [address] [place] [address] CO2 [Moles/Vol] 26 mmol/L Normal 21-31 [facility] Comment on above: Performed By: #### C MPNG #### [facility] (DEFAULT) [address] [place] [address] Creatinine [Mass/Vol] 0.64 mg/dL Normal 0.50-1.20 [facility] Comment on above: Performed By: #### C MPNG #### [facility] (DEFAULT) [address] [place] [address] eGFR, CKD-EPI, Female > Normal >=60 [facility] Comment on above: Result Comment: Repo rted eGFR is based on the CKD-EPI 1 equation using creatinine, age, and sex. Performed By: #### C MPNG #### [facility] (DEFAULT) [address] [place] [address] Potassium [Moles/Vol] 4.0 mmol/L Normal 3.5-5.0 [facility] Comment on above: Performed By: #### C MPNG #### [facility] (DEFAULT) [address] [place] [address] Protein [Mass/Vol] 7.9 g/dL Normal 6.4-8.3 [facility] Comment on above: Performed By: #### C MPNG #### [facility] (DEFAULT) [address] [place] [address] Sodium [Moles/Vol] 137 mmol/L Normal 135-145 [facility] Comment on above: Performed By: #### C MPNG #### [facility] (DEFAULT) [address] [place] [address] Urea nitrogen [Mass/Vol] 12 mg/dL Normal 7-25 [facility] Comment on above: Performed By: #### C MPNG #### [facility] (DEFAULT) [address] [place] [address] Urea nitrogen/Creatinine [Mass ratio] 19 mg/mg Normal [facility] Comment on above: Performed By: #### C MPNG #### [facility] (DEFAULT) [address] [place] [address] HCG ( test) Ql (U)O rdered By: Jamil Santos on 01-09-2023 Beta HCG ( test) Ql Negative Negative [facility] Interpretation and review of laboratory results Normal [facility] HCG QUALITATIVE, URINEon Beta HCG ( test) Ql (U) Negative Normal Negative [facility] Comment on above: Performed By: #### U HCG #### [facility] (DEFAULT) [address] [place] [address] LAMOTRIGINE LEVELon 01-10-20 23 Lamotrigine, S 4.3 mcg/mL Normal 3.0-15.0 [facility] Comment on above: Result Comment: ADDITIONAL INFORMATION This test was developed and its performance characteristics determined by [facility] in a manner consistent with CLIA requirements. This test has not been cleared or approved by the U.S. Food and Drug Administration. Test Performed by: [facility] [address] [place] [address] Channel Installer: Juno Vega M.D. Ph.D.; CLIA# [id number] Performed By: #### Y LAMO #### [facility] (DEFAULT) [address] [place] [address] PT,INR,PTTon 01-09-2023 aPTT Coag (Bld) [Time] 31.1 s Normal 24.0-34.3 [facility] Comment on above: Performed By: #### P TPTT #### [facility] (DEFAULT) [address] [place] [address] INR Coag (PPP) [Relative time] 1.0 {INR} Normal 0.9-1.1 [facility] Comment on above: Performed By: #### P TPTT #### [facility] (DEFAULT) [address] [place] [address] PT Coag (PPP) [Time] 13.0 s Normal 11.9-14.2 [facility] Comment on above: Performed By: #### P TPTT #### [facility] (DEFAULT) [address] [place] [address] aPTT Coag (PPP) [Time] 31.1 s [facility] INR Coag (Bld) [Relative time] 1.0 {INR} 0.9 - 1.1 [facility] Interpretation and review of laboratory results Normal [facility] PT Coag (PPP) [Time] 13.0 s [facility] SCREEN: MRSA/MSSAOrdered By: Alexandra Slater on 01-09-2023 Interpretation and review of laboratory results Abnormal [facility] Methicillin Resistant S. Aureus By Pcr Negative Negative [facility] Staphylococcus Aureus By Pcr Positive Abnormal Negative [facility] This test was performed using [...] by the Clinical Microbiology Laboratory at [facility]. It has not been cleared or approved by the FDA.The laboratory is regulated under CLIA as qualified to perform high-complexity testing. This test is used for clinical purposes. It should not be regarded as investigational or for research. [facility] SCREEN: MRSA/MSSAon 01-10-20 23 Methicillin Resistant S. Aureus By Pcr Negative Normal Negative [facility] Comment on above: Order Comment: [...] by the Clinical Microbiology Laboratory at [facility]. It has not been cleared or approved by the FDA.The laboratory is regulated under CLIA as qualified to perform high-complexity testing. This test is used for clinical purposes. It should not be regarded as investigational or for research. Performed By: #### S CRSB #### [facility] (DEFAULT) [address] [address] Staphylococcus Aureus By Pcr Positive Abnormal Negative [facility] Comment on above: Order Comment: [...] by the Clinical Microbiology Laboratory at [facility]. It has not been cleared or approved by the FDA.The laboratory is regulated under CLIA as qualified to perform high-complexity testing. This test is used for clinical purposes. It should not be regarded as investigational or for research. Performed By: #### S CRSB #### [facility] (DEFAULT) [address] [place] [address] VITAMIN D (25-HYDROXY,TOTAL) on 01-09-2023 25-OH Vitamin D Total 35.2 ng/mL Normal 30.0-100.0 [facility] Comment on above: Order Comment: Vitam in D values have been shown to be falsely decreased in lipemic samples and should be interpreted with caution. Result Comment: <10 Deficiency 10-29 Insufficiency 30-100 Optimal Level >100 Possible Toxicity Performed By: #### D 25OH #### [facility] (DEFAULT) [address] [place] [address] XR Cervical and thoracic and lumbar spine [...] IMPRESSION: Intact vagus nerve stimulator as described. [facility] Radiology Study observation (narrative) U [facility] XR Cervical and thoracic and lumbar spine ViewsOrdered By: Alice Crespo on 01-09-2023 [facility] Work Phone: XR STIMULATOR/INTRATHECAL PU [...] Intact vagus nerve stimulator as described. Normal [facility] PROGESTERONEon 05-24-2022 Progesterone 5.5 ng/mL Normal [facility] Comment on above: Result Comment: Foll icular phase 0.1 - 0.9 Luteal phase 1.8 - 23.9 Ovulation phase 0.1 - 12.0 First trimester 11.0 - 44.3 Second trimester 25.4 - 83.3 Third trimester 58.7 - 214.0 Postmenopausal 0.0 - 0.1 Performed By: #### P DANIEL #### [facility] [address] [place] [address] Dr. Nicol Oswald LAMOTRIGINEon 05-02-2022 Lamotrigine, Serum 4.7 ug/mL Normal 2.0-20.0 [facility] Comment on above: Result Comment: Dete ction Limit = 1.0 Performed By: #### P DANIEL #### [facility] [address] [place] [address] Dr. Nicol Oswald CBC AUTO DIFFon 04-30-2022 BASO # 0.0 103/ul Normal 0.0-0.1 [facility] Comment on above: Performed By: #### C BC #### [facility] [address] [address] [address] Nicol Oswald Basophils/100 WBC (Bld) 0.4 % Normal 0.2-2.0 [facility] Comment on above: Performed By: #### C BC #### [facility] [address] [address] [address] Nicol Oswald EO # 0.2 103/ul Normal 0.0-0.7 [facility] Comment on above: Performed By: #### C BC #### [facility] [address] [place] [address] Dr. Nicol Oswald Eosinophils/100 WBC (Bld) 1.9 % Normal 0.9-7.0 [facility] Comment on above: Performed By: #### C BC #### [facility] [address] [place] [address] Dr. Nicol Oswald Erythrocyte distribution width (RBC) [Ratio] 12.8 % Normal 11.0-15.0 [facility] Comment on above: Performed By: #### C BC #### [facility] [address] [place] [address] Dr. Nicol Oswald Hematocrit (Bld) [Volume fraction] 40.4 % Normal 36.0-48.0 [facility] Comment on above: Performed By: #### C BC #### [facility] [address] [place] [address] Dr. Nicol Oswald Hemoglobin (Bld) [Mass/Vol] 13.6 g/dL Normal 12.0-16.0 [facility] Comment on above: Performed By: #### C BC #### [facility] [address] [place] [address] Dr. Nicol Oswald IG # 0.03 10e3/ul Normal 0.00-0.03 [facility] Comment on above: Performed By: #### C BC #### [facility] [address] [place] [address] Dr. Nicol Oswald IG % 0.4 % Normal 0.0-0.5 [facility] Comment on above: Performed By: #### C BC #### [facility] [address] [place] [address] Dr. Nicol Oswald LYMPH # 3.1 103/ul Normal 1.2-3.8 [facility] Comment on above: Performed By: #### C BC #### [facility] [address] [place] [address] Dr. Nicol Oswald Lymphocytes/100 WBC (Bld) 36.4 % Normal 20.5-60.0 [facility] Comment on above: Performed By: #### C BC #### [facility] [address] [place] [address] Dr. Nicol Oswald MANUAL DIFF REQ NO Normal [facility] Comment on above: Performed By: #### C BC #### [facility] [address] [place] [address] Dr. Nicol Oswald MCH (RBC) [Entitic mass] 31.0 pg Normal 26.7-34.0 [facility] Comment on above: Performed By: #### C BC #### [facility] [address] [place] [address] Dr. Nicol Oswald MCHC (RBC) [Mass/Vol] 33.7 g/dL Normal 29.9-35.2 [facility] Comment on above: Performed By: #### C BC #### [facility] [address] [place] [address] Dr. Nicol Oswald MCV (RBC) [Entitic vol] 92.0 fL Normal 81.0-99.0 [facility] Comment on above: Performed By: #### C BC #### [facility] [address] [place] [address] Dr. Nicol Oswald MONO # 0.7 103/ul Normal 0.3-0.8 [facility] Comment on above: Performed By: #### C BC #### [facility] [address] [place] [address] Dr. Nicol Oswald Monocytes/100 WBC (Bld) 7.7 % Normal 1.7-12.0 [facility] Comment on above: Performed By: #### C BC #### [facility] [address] [place] [address] Dr. Nicol Oswald NEUT # 4.5 103/ul Normal 1.4-6.5 [facility] Comment on above: Performed By: #### C BC #### [facility] [address] [address] [address] Nicol Oswald Neutrophils/100 WBC (Bld) 53.2 % Normal 43.0-75.0 [facility] Comment on above: Performed By: #### C BC #### [facility] [address] [place] [address] Dr. Nicol Oswald Platelet mean volume (Bld) [Entitic vol] 11.0 fL Normal 9.5-13.5 [facility] Comment on above: Performed By: #### C BC #### [facility] [address] [place] [address] Dr. Nicol Oswald PLT 282 103/ul Normal 150-450 [facility] Comment on above: Performed By: #### C BC #### [facility] [address] [place] [address] Dr. Nicol Oswald RBC 4.39 106/ul Normal 4.20-5.40 [facility] Comment on above: Performed By: #### C BC #### [facility] [address] [place] [address] Dr. Nicol Oswald WBC 8.4 103/ul Normal 4.0-11.0 [facility] Comment on above: Performed By: #### C BC #### [facility] [address] [place] [address] Dr. Nicol Oswald LIVER PROFILEon 04-30-2022 Albumin [Mass/Vol] 4.1 g/dL Normal 3.4-5.0 [facility] Comment on above: Performed By: #### Tenzin SANCHEZ #### [facility] [address] [place] [address] Dr. Nicol Oswald Albumin/Globulin [Mass ratio] 1.2 {ratio} Normal [facility] Comment on above: Performed By: #### P DANIEL #### [facility] [address] [address] [address] Nicol Oswald ALP [Catalytic activity/Vol] 52 U/L Normal 46-116 [facility] Comment on above: Performed By: #### P DANIEL #### [facility] [address] [place] [address] Dr. Nicol Oswlad ALT [Catalytic activity/Vol] 23 U/L Normal 14-59 [facility] Comment on above: Performed By: #### P DANIEL #### [facility] [address] [address] [address] Nicol Oswald AST [Catalytic activity/Vol] 17 U/L Normal 15-37 [facility] Comment on above: Performed By: #### P DANIEL #### [facility] [address] [place] [address] Dr. Nicol Oswald BILI, CONJUGATED 0.1 mg/dL Normal 0.0-0.2 [facility] Comment on above: Performed By: #### P DANIEL #### [facility] [address] [place] [address] Dr. Nicol Oswald Bilirubin [Mass/Vol] 0.2 mg/dL Normal 0.2-1.0 [facility] Comment on above: Performed By: #### P DANIEL #### [facility] [address] [place] [address] Dr. Nicol Oswald Globulin (S) [Mass/Vol] 3.4 g/dL Normal [facility] Comment on above: Performed By: #### P DANIEL #### [facility] [address] [place] [address] Dr. Nicol Oswald Protein [Mass/Vol] 7.5 g/dL Normal 6.4-8.2 [facility] Comment on above: Performed By: #### P DANIEL #### [facility] [address] [place] [address] Dr. Nicol Oswald PROF CHEM 8 (BAS METB)on Anion gap [Moles/Vol] 8.5 mmol/L Normal [facility] Comment on above: Performed By: #### P DANIEL #### [facility] [address] [address] [address] Nicol Oswald Calcium [Mass/Vol] 9.4 mg/dL Normal 8.5-10.1 [facility] Comment on above: Performed By: #### P ROGES #### [facility] [address] [address] [address] Nicol Oswald Chloride [Moles/Vol] 102 mmol/L Normal 98-107 [facility] Comment on above: Performed By: #### P ROGES #### [facility] [address] [address] [address] Nicol Oswald CO2 [Moles/Vol] 30.4 mmol/L Normal 21.0-32.0 [facility] Comment on above: Performed By: #### P DANIEL #### [facility] [address] [place] [address] Dr. Nicol Oswald Creatinine [Mass/Vol] 0.57 mg/dL Normal 0.55-1.02 [facility] Comment on above: Performed By: #### P ROGES #### [facility] [address] [address] [address] Nicol Oswald EGFR-AF FAROESE >60 Normal >=60 [facility] Comment on above: Performed By: #### P JASONES #### [facility] [address] [address] [address] Nicol Oswald EGFR-NON AF FAROESE >60 Normal >=60 [facility] Comment on above: Performed By: #### P JASONES #### [facility] [address] [address] [address] Nicol Oswald Glucose [Mass/Vol] 89 mg/dL Normal 74-106 [facility] Comment on above: Performed By: #### P ROGES #### [facility] [address] [address] [address] Nicol Oswald Potassium [Moles/Vol] 3.9 mmol/L Normal 3.5-5.1 [facility] Comment on above: Performed By: #### P ROGLYNDA #### [facility] [address] [address] [address] Nicol Oswald Sodium [Moles/Vol] 137 mmol/L Normal 136-145 [facility] Comment on above: Performed By: #### P DANIEL #### [facility] [address] [address] [address] Nicol Oswald Urea nitrogen [Mass/Vol] 10.0 mg/dL Normal 7.0-18.0 [facility] Comment on above: Performed By: #### P DANIEL #### [facility] [address] [address] [address] Nicol Oswald Urea nitrogen/Creatinine [Mass ratio] 17.5 mg/mg Normal [facility] Comment on above: Performed By: #### P DANIEL #### [facility] [address] [address] [address] Nicol Oswald ESTROGENon 04-19-2022 Estrogens, Total 124 pg/mL Normal [facility] Comment on above: Result Comment: Prep ubertal < 40 Female Cycle: 1-10 Days 16 - 328 11-20 Days 34 - 501 21-30 Days 48 - 350 Post-Menopausal 40 - 244 Performed By: #### E STROG #### [facility] [address] [address] [address] Nicol Oswald DHEA SERUMon 04-18-2022 Dehydroepiandrosterone (DHEA) 371 ng/dL Normal 31-701 [facility] Comment on above: Result [...] 701 Performed By: #### P DANIEL #### [facility] [address] [address] [address] Nicol Oswald DHEA-SULFATEon 04-16-2022 DHEA-Sulfate 371.0 ug/dL Normal 84.8-378.0 [facility] Comment on above: Performed By: #### P DANIEL #### [facility] [address] [address] [address] Nicol Oswald FSHon 04-16-2022 FSH 5.6 mIU/mL Normal [facility] Comment on above: Result Comment: Adul t Female: Follicular phase 3.5 - 12.5 Ovulation phase 4.7 - 21.5 Luteal phase 1.7 - 7.7 Postmenopausal 25.8 - 134.8 Performed By: #### P DANIEL #### [facility] [address] [place] [address] Dr. Nicol Oswald LUTEINIZING HORMONE (LH)on 0 04-16-2022 LH 12.9 mIU/mL Normal [facility] Comment on above: Result Comment: Adul t Female: Follicular phase 2.4 - 12.6 Ovulation phase 14.0 - 95.6 Luteal phase 1.0 - 11.4 Postmenopausal 7.7 - 58.5 Performed By: #### P DANIEL #### [facility] [address] [place] [address] Dr. Nicol Oswald PROGESTERONEon 04-16-2022 Progesterone 0.2 ng/mL Normal [facility] Comment on above: Result Comment: Foll icular phase 0.1 - 0.9 Luteal phase 1.8 - 23.9 Ovulation phase 0.1 - 12.0 First trimester 11.0 - 44.3 Second trimester 25.4 - 83.3 Third trimester 58.7 - 214.0 Postmenopausal 0.0 - 0.1 Performed By: #### P DANIEL #### [facility] [address] [place] [address] Dr. Nicol Oswald PROLACTINon 04-16-2022 Prolactin 7.1 ng/mL Normal 4.8-23.3 [facility] Comment on above: Performed By: #### P ROLAC #### [facility] [address] [place] [address] Dr. Nicol Oswald US PELVIS AND TRANSVAGon [...] CYDNEY VALDEZ Date: 2022-04-16 08:48 Normal [facility] CBC AUTO DIFFon 04-15-2022 BASO # 0.0 103/ul Normal 0.0-0.1 [facility] Comment on above: Performed By: #### C BC #### [facility] [address] [place] [address] Dr. Nicol Oswald Basophils/100 WBC (Bld) 0.5 % Normal 0.2-2.0 [facility] Comment on above: Performed By: #### C BC #### [facility] [address] [place] [address] Dr. Nicol Oswald EO # 0.2 103/ul Normal 0.0-0.7 [facility] Comment on above: Performed By: #### C BC #### [facility] [address] [place] [address] Dr. Nicol Oswald Eosinophils/100 WBC (Bld) 2.1 % Normal 0.9-7.0 [facility] Comment on above: Performed By: #### C BC #### [facility] [address] [place] [address] Dr. Nicol Oswald Erythrocyte distribution width (RBC) [Ratio] 12.5 % Normal 11.0-15.0 [facility] Comment on above: Performed By: #### C BC #### [facility] [address] [place] [address] Dr. Nicol Oswald Hematocrit (Bld) [Volume fraction] 44.7 % Normal 36.0-48.0 [facility] Comment on above: Performed By: #### C BC #### [facility] [address] [address] [address] Nicol Oswald Hemoglobin (Bld) [Mass/Vol] 14.3 g/dL Normal 12.0-16.0 [facility] Comment on above: Performed By: #### C BC #### [facility] [address] [place] [address] Dr. Nicol Oswald IG # 0.01 10e3/ul Normal 0.00-0.03 [facility] Comment on above: Performed By: #### C BC #### [facility] [address] [place] [address] Dr. Nicol Oswald IG % 0.1 % Normal 0.0-0.5 [facility] Comment on above: Performed By: #### C BC #### [facility] [address] [place] [address] Dr. Nicol Oswald LYMPH # 2.0 103/ul Normal 1.2-3.8 [facility] Comment on above: Performed By: #### C BC #### [facility] [address] [place] [address] Dr. Nicol Oswald Lymphocytes/100 WBC (Bld) 26.0 % Normal 20.5-60.0 [facility] Comment on above: Performed By: #### C BC #### [facility] [address] [place] [address] Dr. Nicol Oswald MANUAL DIFF REQ NO Normal [facility] Comment on above: Performed By: #### C BC #### [facility] [address] [place] [address] Dr. Nicol Oswald MCH (RBC) [Entitic mass] 30.8 pg Normal 26.7-34.0 [facility] Comment on above: Performed By: #### C BC #### [facility] [address] [place] [address] Dr. Nicol Oswald MCHC (RBC) [Mass/Vol] 32.0 g/dL Normal 29.9-35.2 [facility] Comment on above: Performed By: #### C BC #### [facility] [address] [address] [address] Nicol Oswald MCV (RBC) [Entitic vol] 96.3 fL Normal 81.0-99.0 [facility] Comment on above: Performed By: #### C BC #### [facility] [address] [place] [address] Dr. Nicol Oswald MONO # 0.6 103/ul Normal 0.3-0.8 [facility] Comment on above: Performed By: #### C BC #### [facility] [address] [place] [address] Dr. Nicol Oswald Monocytes/100 WBC (Bld) 7.3 % Normal 1.7-12.0 [facility] Comment on above: Performed By: #### C BC #### [facility] [address] [place] [address] Dr. Nicol Oswald NEUT # 4.9 103/ul Normal 1.4-6.5 [facility] Comment on above: Performed By: #### C BC #### [facility] [address] [place] [address] Dr. Nicol Oswald Neutrophils/100 WBC (Bld) 64.0 % Normal 43.0-75.0 [facility] Comment on above: Performed By: #### C BC #### [facility] [address] [place] [address] Dr. Nicol Oswald Platelet mean volume (Bld) [Entitic vol] 11.3 fL Normal 9.5-13.5 [facility] Comment on above: Performed By: #### C BC #### [facility] [address] [place] [address] Dr. Nicol Oswald PLT 302 103/ul Normal 150-450 [facility] Comment on above: Performed By: #### C BC #### [facility] [address] [place] [address] Dr. Nicol Oswald RBC 4.64 106/ul Normal 4.20-5.40 [facility] Comment on above: Performed By: #### C BC #### [facility] [address] [address] [address] Nicol Oswald WBC 7.7 103/ul Normal 4.0-11.0 [facility] Comment on above: Performed By: #### C BC #### [facility] [address] [place] [address] Dr. Nicol Oswald FREE T4on 04-15-2022 Free T4 [Mass/Vol] 0.80 ng/dL Normal 0.76-1.46 [facility] Comment on above: Performed By: #### F T4 #### [facility] [address] [place] [address] Dr. Nicol Oswald GLYCOHEMOGLOBIN A1Con 2022 ADA RECOMMENDATION SEE BELOW Normal [facility] Comment on above: Result Comment: ADA RECOMMENDED LIMIT 4.0 - 6.0 ADA THERAPEUTIC TARGET < 7.0 ACTION SUGGESTED > 7.0 Performed By: #### A 1C #### [facility] [address] [place] [address] Dr. Nicol Oswald Glucose [Mass/Vol] 114 mg/dL Normal [facility] Comment on above: Performed By: #### A 1C #### [facility] [address] [place] [address] Dr. Nicol Oswald HbA1c (Bld) [Mass fraction] 5.6 % Normal 4.5-6.2 [facility] Comment on above: Performed By: #### A 1C #### [facility] [address] [place] [address] Dr. Nicol Oswald PREG QUANT HCGon 04-15-2022 HCG QUANT <1 Normal [facility] Comment on above: Performed By: #### P REGQNT, TSH #### [facility] [address] [place] [address] Dr. Nicol Oswald HCG RANGE SEE BELOW Normal [facility] Comment on above: Result Comment: 5-50 0.2-1 WEEK 50-500 1-2 WEEKS 100-5,000 2-3 WEEKS 500-10,000 3-4 WEEKS 1,000-50,000 4-5 WEEKS 10,000-100,000 5-6 WEEKS 15,000-200,000 6-8 WEEKS 10,000-100,000 2-3 MONTHS Performed By: #### P REGHEMALATHA, TSH #### [facility] [address] [place] [address] Dr. Nicol Oswald TSHon 04-15-2022 TSH 1.312 uIU/mL Normal 0.358-3.740 [facility] Comment on above: Performed By: #### P PAUL, TSH #### [facility] [address] [place] [address] Dr. Nicol Oswald PAP ACOG PANEL 2: 23 to 31on 08-31-2021 . . [facility] Comment on above: Performed By: #### P DANIEL #### [facility] [address] [place] [address] Dr. Nicol Oswald Age Gdln ACOG Testing - [facility] Comment on above: Performed By: #### P DANIEL #### [facility] [address] [place] [address] Dr. Nicol Oswald DIAGNOSIS: Comment [facility] Comment on above: Result Comment: NEGA TIVE FOR INTRAEPITHELIAL LESION OR MALIGNANCY. THIS SPECIMEN WAS RESCREENED PART OF OUR REGIONAL VICE PRESIDENT SURGICAL SALES PROGRAM. Performed By: #### P DANIEL #### [facility] [address] [place] [address] Dr. Nicol Oswald Methodology: Comment [facility] Comment on above: Result Comment: This liquid based ThinPrep(R) pap test was screened with the use of an image guided system. Performed By: #### P JASONES #### [facility] [address] [place] [address] Dr. Nicol Oswald Note: Comment [facility] Comment on above: Result Comment: The Pap smear is a screening test designed to aid in the detection of premalignant and malignant conditions of the uterine cervix. It is not a diagnostic procedure and should not be used as the sole means of detecting cervical cancer. Both false-positive and false-negative reports do occur. . Performed By: #### P DANIEL #### [facility] [address] [place] [address] Dr. Nicol Oswald Performed by: Comment Normal [facility] Comment on above: Result Comment: Mireille Blanco, Back Maker (ASCP) Performed By: #### P DANIEL #### [facility] [address] [address] [address] Nicol Oswald QC reviewed by: Comment Normal [facility] Comment on above: Result Comment: Tahira Roque, Back Maker (ASCP) Performed By: #### P DANIEL #### [facility] [address] [address] [address] Nicol Oswald Reflex Criteria: Comment Normal [facility] Comment on above: Result Comment: The HPV DNA reflex criteria were not met with this specimen result therefore, no HPV testing was performed. . Performed By: #### P DANIEL #### [facility] [address] [address] [address] Nicol Oswald Specimen adequacy: Comment Normal [facility] Comment on above: Result Comment: Sati sfactory for evaluation. Endocervical and/or squamous metaplastic cells (endocervical component) are present. Performed By: #### P DANIEL #### [facility] [address] [address] [address] Nicol Oswald CBC Auto Diff Reflex Manualo n 02-18-2019 Automated Absolute Neutrophil 5.73 10*3/mm3 Normal [facility] Comment on above: Result Comment: Auto mated Absolute Neutrophil Count (ANC) is directly measured using a hematology instrument. ANC determined from manual differential cell count may differ. No [facility] reference range has been validated for this assay. Performed By: #### C D #### [place] [address] Basophil 0.5 % Normal 0.0-1.0 [facility] Comment on above: Performed By: #### C D #### [place] [address] Differential Type Automated Normal [facility] Comment on above: Performed By: #### C D #### [place] [address] Eosinophil 1.6 % Normal 1.0-4.0 [facility] Comment on above: Performed By: #### C D #### [place] [address] Erythrocyte distribution width (RBC) [Ratio] 13.4 % Normal 10-14.1 [facility] Comment on above: Performed By: #### C D #### [place] [address] Lymphocyte 22.6 % Low 24.0-44.0 [facility] Comment on above: Performed By: #### C D #### [place] [address] MCH (RBC) [Entitic mass] 30.7 pg Normal 26-34 [facility] Comment on above: Performed By: #### C D #### [place] [address] MCHC (RBC) [Mass/Vol] 33.2 % Normal 31.0-37.0 [facility] Comment on above: Performed By: #### C D #### [place] [address] MCV (RBC) [Entitic vol] 92.4 fL Normal 80-100 [facility] Comment on above: Performed By: #### C D #### Performed at [address] [address] Monocyte 8.2 % High 1.0-7.0 [facility] Comment on above: Performed By: #### C D #### [place] [address] Neutrophil 67.1 % Normal 41.0-77.0 [facility] Comment on above: Performed By: #### C D #### [place] [address] Platelet mean volume (Bld) [Entitic vol] 11.5 fL Normal 9.3-13.0 [facility] Comment on above: Performed By: #### C D #### [place] [address] Platelets (Bld) [#/Vol] 268 10*3/uL Normal 140-440 [facility] Comment on above: Performed By: #### C D #### Performed [place] [address] RBC (Bld) [#/Vol] 4.60 10*6/uL Normal 4.0-5.2 [facility] Comment on above: Performed By: #### C D #### [place] [address] WBC (Bld) [#/Vol] 8.6 10*3/uL Normal 4.5-11 [facility] Comment on above: Performed By: #### C D #### [place] [address] Comprehensive Metabolic Pane [facility] 02-18-2019 Albumin [Mass/Vol] 4.7 g/dL Normal 3.4-5.2 [facility] ALP [Catalytic activity/Vol] 47 U/L Low 50-136 [facility] ALT [Catalytic activity/Vol] 32 U/L Normal <40 [facility] AST [Catalytic activity/Vol] 29 U/L Normal 15-50 [facility] Bilirubin Ql (U) 0.2 mg/dL Normal 0.1-1.0 [facility] Calcium [Mass/Vol] 9.8 mg/dL Normal 8-10.5 [facility] Chloride [Moles/Vol] 104 mmol/L Normal 95-106 [facility] CO2 [Moles/Vol] 25 mmol/L Normal 24-35 [facility] Creatinine [Mass/Vol] 0.52 mg/dL Normal 0.5-1 [facility] Glucose [Mass/Vol] 135 mg/dL High 60-115 [facility] Potassium [Moles/Vol] 4.5 mmol/L Normal 3.7-5.3 [facility] Protein [Mass/Vol] 8.0 g/dL Normal 6.4-8.4 [facility] Sodium [Moles/Vol] 140 mmol/L Normal 135-145 [facility] Urea nitrogen [Mass/Vol] 15 mg/dL Normal 5-18 [facility] Valproic Acidon 02-18-2019 Valproic Acid 47.1 ug/mL Low 50.0-100.0 [facility] PAP, THIN PREP WITH IMAGINGo n 06-29-2018 PAP, THIN PREP WITH IMAGING Normal [facility] Comment on above: Result Comment: INTE RPRETATION Thin Prep Image-Guided Pap Test (Cervical/Endocervical) NEGATIVE FOR INTRAEPITHELIAL LESION /MALIGNANCY Satisfactory for evaluation (Endocervical/transformation zone component present) [facility] [place]/06/27/2018 The Pap test is a screening test, [...] 05/18/18 ICD-CM DIAGNOSIS CODE(S) Z01.419 [employer] For [employer] Exam (general) (routine) W/o Abn Findings * EFFECTIVE 06/08/2018 * * CLINICAL CHEMISTRY PLATFORM CHANGES ARE ASSOCIATED WITH * * REFERENCE RANGE CHANGES FOR A NUMBER OF ANALYTES. PLEASE * * REVIEW REFERENCE INTERVALS CAREFULLY * [facility] [address] [place] [address] CLIA No. [id number] CAP Accreditation No. [id number] Hospice Home Care Coordinator: Johnson Garland M.D. [employer] Accession Number: [id number] Performed By: #### P L PAP W/IMAGE #### [facility] [address] [place] [address] CT Nucleic-Acid Probe-Endoce rvical Swabon 06-24-2018 CT Nucleic-Acid Probe-Endocervical Swab Negative Normal NEGATIVE [facility] Comment on above: Performed By: #### G C Amp Endocerv, CT Amp Endocerv #### [facility] [address] [place] [address] Age at specimen collection = Normal [facility] Comment on above: Performed By: #### G C Amp Endocerv, CT Amp Endocerv #### [facility] [address] [place] [address] Performed By: #### P L PAP W/IMAGE #### [facility] [address] [place] [address] GC Nucleic-Acid Probe-Endoce rvical Swabon 06-24-2018 GC Nucleic-Acid Probe-Endocervical Swab Negative Normal NEGATIVE [facility] Comment on above: Performed By: #### G C Amp Endocerv, CT Amp Endocerv #### [facility] [address] [place] [address] Platelet Functionon 03-24-19 19 Collagen/ADP 148 sec High 67-112 [facility] Comment on above: Performed By: #### P FA #### [email or web address] [address] [place] [address] Collagen/EPI 228 sec High 85-172 [facility] Comment on above: Performed By: #### P FA #### [email or web address] [address] [place] [address] Interpretation Abnormal platelet function. Normal [facility] Comment on above: Result Comment: Comm [...] established. Performed By: #### P FA #### [email or web address] [address] [place] [address] XR ANKLE RIGHT STANDARDon XR ANKLE RIGHT STANDARD Radiology exam i s complete. No Radiologist dictation. Please follow up with ordering provider. Final result Normal [facility] Vital Signs Date Time Vital Sign Value Performing Clinician Facility 05-28-2023 14:04-0400 Body height 161.3 cm Riana Chinchilla APRN-CONVERSION MAN Work Phone: [facility] 05-28-2023 14:04-0400 Body mass index (BMI) [Ratio] 34.09 kg/m2 Riana Chinchilla MANAGED CARE ANALYST-CONVERSION MAN Work Phone: [facility] 05-28-2023 14:04-0400 Body temperature 98.01 [degF] Riana De La Cruzley MANAGED CARE ANALYST-CONVERSION MAN Work Phone: [facility] 05-28-2023 14:04-0400 Body weight 88.68 kg Riana De La Cruzley MANAGED CARE ANALYST-CONVERSION MAN Work Phone: [facility] 05-28-2023 14:04-0400 Diastolic blood pressure 74 mm[Hg] Riana Chinchilla MANAGED CARE ANALYST-CONVERSION MAN Work Phone: [facility] 05-28-2023 14:04-0400 Heart rate 92 /min Riana De La Cruzley MANAGED CARE ANALYST-CONVERSION MAN Work Phone: [facility] 05-28-2023 14:04-0400 Systolic blood pressure 122 mm[Hg] Riana Chinchilla MANAGED CARE ANALYST-CONVERSION MAN Work Phone: [facility] 04-22-2023 13:04-0500 Body mass index (BMI) [Ratio] 34 kg/m2 Donovan Kimmie DO Work Phone: [facility] 04-22-2023 13:04-0500 Body weight 88.45 kg Donovan Kimmie DO Work Phone: [facility] 04-22-2023 13:04-0500 Diastolic blood pressure 78 mm[Hg] Donovan Kimmie DO Work Phone: [facility] 04-22-2023 13:04-0500 Systolic blood pressure 120 mm[Hg] Donovan Kimmie DO Work Phone: [facility] 02-14-2023 15:48-0500 Body height 161.3 cm Crystal Raoul MANAGED CARE ANALYST-CONVERSION MAN Work Phone: [facility] Comment on above: verbal 02-14-2023 15:48-0500 Body mass index (BMI) [Ratio] 34.82 kg/m2 Crystal Raoul MANAGED CARE ANALYST-CONVERSION MAN Work Phone: [facility] 02-14-2023 15:48-0500 Body temperature 97.9 [degF] Crystal Raoul MANAGED CARE ANALYST-CONVERSION MAN Work Phone: [facility] 02-14-2023 15:48-0500 Body weight 90.58 kg Crystal Raoul MANAGED CARE ANALYST-CONVERSION MAN Work Phone: [facility] 02-14-2023 15:48-0500 Diastolic blood pressure 79 mm[Hg] Crystal Raoul MANAGED CARE ANALYST-CONVERSION MAN Work Phone: [facility] 02-14-2023 15:48-0500 Heart rate 107 /min Crystal Raoul MANAGED CARE ANALYST-CONVERSION MAN Work Phone: [facility] 02-14-2023 15:48-0500 Systolic blood pressure 133 mm[Hg] Crystal Raoul MANAGED CARE ANALYST-CONVERSION MAN Work Phone: [facility] 01-15-2023 13:50-0500 Body temperature 97.5 [degF] Evy Verma MD Work Phone: [phone] [place] [address] 01-15-2023 13:50-0500 Diastolic blood pressure 79 mm[Hg] Evy Verma MD Work Phone: [facility] 01-15-2023 13:50-0500 Heart rate 78 /min Evy Verma MD Work Phone: [facility] 01-15-2023 13:50-0500 Respiratory rate 16 /min Evy Verma MD Work Phone: [facility] 01-15-2023 13:50-0500 SaO2% (BldA) [Mass fraction] 98 % Evy Verma MD Work Phone: [phone])[phone] [place] [address] 01-15-2023 13:50-0500 Systolic blood pressure 117 mm[Hg] Evy Verma MD Work Phone: [facility] 01-15-2023 07:50-0500 Body height 161.3 cm Evy Verma MD Work Phone: [facility] 01-15-2023 07:50-0500 Body mass index (BMI) [Ratio] 34.37 kg/m2 Evy Verma MD Work Phone: [facility] 01-15-2023 07:50-0500 Body weight 89.4 kg Evy Verma MD Work Phone: [facility] 01-09-2023 08:39-0400 Body height 161.3 cm Esau Hernandez PAC Work Phone: [facility] 01-09-2023 08:39-0400 Body mass index (BMI) [Ratio] 33.65 kg/m2 Esau Hernandez PAC Work Phone: [facility] 01-09-2023 08:39-0400 Body temperature 98.49 [degF] Esau Hernandez PAC Work Phone: [facility] 01-09-2023 08:39-0400 Body weight 87.54 kg Esau Hernandez PAC Work Phone: [facility] 01-09-2023 08:39-0400 Diastolic blood pressure 80 mm[Hg] Esau Hernandez PAC Work Phone: [facility] 01-09-2023 08:39-0400 Heart rate 81 /min Esau Hernandez PAC Work Phone: [facility] 01-09-2023 08:39-0400 Respiratory rate 18 /min Esau Hernandez PAC Work Phone: [facility] 01-09-2023 08:39-0400 SaO2% (BldA) [Mass fraction] 98 % Esau Hernandez PAC Work Phone: [facility] 01-09-2023 08:39-0400 Systolic blood pressure 134 mm[Hg] Esau Hernandez PAC Work Phone: [facility] 12-10-2022 10:53-0400 Body height 160 cm Evy Verma MD Work Phone: [facility] 12-10-2022 10:53-0400 Body mass index (BMI) [Ratio] 34.19 kg/m2 Evy Verma MD Work Phone: [facility] 12-10-2022 10:53-0400 Body weight 87.54 kg Evy Verma MD Work Phone: [facility] 12-10-2022 10:53-0400 Diastolic blood pressure 63 mm[Hg] Evy Verma MD Work Phone: [facility] 12-10-2022 10:53-0400 Heart rate 65 /min Evy Verma MD Work Phone: [facility] 12-10-2022 10:53-0400 Systolic blood pressure 125 mm[Hg] Evy Verma MD Work Phone: [facility] 11-08-2022 16:21-0400 Body height 160 cm Riana Chinchilla MANAGED CARE ANALYST-CONVERSION MAN Work Phone: [facility] Comment on above: verbal 11-08-2022 16:21-0400 Body mass index (BMI) [Ratio] 34.26 kg/m2 Riana Raoul MANAGED CARE ANALYST-CONVERSION MAN Work Phone: [facility] 11-08-2022 16:21-0400 Body temperature 99.1 [degF] Riana Raoul MANAGED CARE ANALYST-CONVERSION MAN Work Phone: [facility] 11-08-2022 16:21-0400 Body weight 87.73 kg Riana Raoul MANAGED CARE ANALYST-CONVERSION MAN Work Phone: [facility] 11-08-2022 16:21-0400 Diastolic blood pressure 71 mm[Hg] Riana Raoul MANAGED CARE ANALYST-CONVERSION MAN Work Phone: [facility] 11-08-2022 16:21-0400 Heart rate 97 /min Riana Raoul MANAGED CARE ANALYST-CONVERSION MAN Work Phone: [facility] 11-08-2022 16:21-0400 Systolic blood pressure 116 mm[Hg] Riana Chinchilla MANAGED CARE ANALYST-CONVERSION MAN Work Phone: [facility] 07-04-2021 09:38-0400 Body height 161.3 cm Riana Chinchilla MANAGED CARE ANALYST-CONVERSION MAN Work Phone: [facility] Comment on above: verbal 07-04-2021 09:38-0400 Body mass index (BMI) [Ratio] 36.23 kg/m2 Riana Raoul MANAGED CARE ANALYST-CONVERSION MAN Work Phone: [facility] 07-04-2021 09:38-0400 Body temperature 98.71 [degF] Riana Raoul MANAGED CARE ANALYST-CONVERSION MAN Work Phone: [facility] 07-04-2021 09:38-0400 Body weight 94.26 kg Riana Chinchilla MANAGED CARE ANALYST-CONVERSION MAN Work Phone: [facility] 07-04-2021 09:38-0400 Diastolic blood pressure 70 mm[Hg] Riana Chinchilla MANAGED CARE ANALYST-CONVERSION MAN Work Phone: [facility] 07-04-2021 09:38-0400 Heart rate 73 /min Riana Chinchilla MANAGED CARE ANALYST-CONVERSION MAN Work Phone: [facility] 07-04-2021 09:38-0400 Systolic blood pressure 119 mm[Hg] Riana Chinchilla MANAGED CARE ANALYST-CONVERSION MAN Work Phone: [facility] Encounters Encounter Date Encounter Type Care Provider Facility Start: 05-28-2023 [facility] Facility: [facility] Start: 05-28-2023 End: 05-28-2023 Office outpatient visit 25 minutes Riana Chinchilla MANAGED CARE ANALYST-CONVERSION MAN Work Phone: [facility] 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); Anxiety disorder, unspecified type Start: 04-22-2023 End: 04-22-2023 ambulatory DONOVAN KIMMIE Not Available Start: 04-22-2023 End: 04-22-2023 Office outpatient visit 15 minutes Donovan Kimmie DO Work Phone: [facility] Comment on above: Encounter for fertil ity planning Start: 02-14-2023 ambulatory [facility] [place] Facility: [facility] Start: 02-14-2023 End: 02-14-2023 Office outpatient visit 25 minutes Riana Chinchilla MANAGED CARE ANALYST-CONVERSION MAN Work Phone: [facility] 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); 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 Start: 01-15-2023 End: 01-15-2023 ambulatory EVY VERMA Facility:[facility] Start: 01-15-2023 End: 01-15-2023 Subsequent hospital visit by physician Evy Verma MD Work Phone: [facility] 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 Start: 01-09-2023 ambulatory [facility] Facility: [facility] Start: 01-09-2023 Encounter for other preprocedural examination ESAU HERNANDEZ Facility:[facility] Start: 01-09-2023 End: 01-09-2023 Office consultation new/estab patient 60 min Esau Hernandez PAC Work Phone: Pre-Procedure Evaluation and Assessment [facility] Comment on above: Preop exam for inter nal medicine (Primary Dx); Jeavons syndrome; 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 Start: 01-09-2023 End: 01-09-2023 Patient encounter status Esau Hernandez PAC Work Phone: [facility] Start: 01-09-2023 End: 01-09-2023 Subsequent hospital visit by physician Evy Verma MD Work Phone: Imaging [facility] Comment on above: Arrived Start: 12-10-2022 ambulatory TIM BALL Facility: [facility] Start: 12-10-2022 End: 12-10-2022 Office outpatient new 45 minutes Evy Verma MD Work Phone: [facility] 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) Start: 11-27-2022 ambulatory TIM BALL Facility: [facility] Start: 11-19-2022 ambulatory TIM BALL Facility: [facility] Start: 11-14-2022 ambulatory TIM BALL Facility: [facility] Start: 11-08-2022 ambulatory TIM BALL Facility: [facility] Start: 11-08-2022 End: 11-08-2022 Office outpatient visit 40 minutes Riana Chinchilla MANAGED CARE ANALYST-CONVERSION MAN Work Phone: Neurology [facility] 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) Start: 09-19-2022 ambulatory TIM BALL Facility: [facility] Start: 09-13-2022 [...] Office outpatient visit 25 minutes Riana Chinchilla MANAGED CARE ANALYST-CONVERSION MAN Work Phone: Neurology [facility] Comment on above: Generalized nonconvu lsive epilepsy (Primary Dx) Start: 06-24-2018 Encounter for gynecological examination (general) (routine) without abnormal findings NA NONE PER PATIENT [facility] Start: 06-24-2018 End: 06-24-2018 Patient encounter procedure GERARDO WARD Facility:[facility] Start: 05-25-2018 End: 05-25-2018 Patient encounter procedure . NONE PER PATIENT Facility:[facility] Start: 05-13-2018 End: 05-13-2018 Patient encounter procedure . NONE PER PATIENT Facility:[facility] Start: 03-23-2018 End: 03-24-2018 Patient encounter procedure [facility] Start: 03-20-2018 End: 03-21-2018 Patient encounter procedure [facility] Procedures Date Procedure Procedure Detail Performing Clinician Start: 01-15-2023 CARDIAC RHYTHM Other Ot her Start: 01-15-2023 Gonadotropin chorion ic qualitative Eyv Verma MD Work Phone: Start: 01-09-2023 CBC [...] By: #### C D #### Performed at [facility], [address] [place] [id number] Start: 03-23-2018 PLATELET FUNCTION TEST JAMIL SMITH Plan of Treatment Date Care Activity Detail Author Start: 11-28-2023 End: 11-28-2023 Patient encounter procedure 11/28/2023 10:20 AM EDT Office Visit [facility] [address] [place] [address] Riana Chinchilla, MANAGED CARE ANALYST-CONVERSION MAN [address] [place] [address] [facility] Start: 11-09-2023 Influenza vaccination INFLUENZA VACCINE (Season Ended) [facility] Start: 08-21-2023 End: 08-21-2023 Patient encounter procedure 08/21/2023 2:45 PM EDT Office Visit Neurology [facility] [address] [facility] [address] [place] [phone] Cori Dia, [address] [place] [address] Neurology [facility] Start: 05-28-2023 End: 05-28-2023 Patient encounter procedure 05/28/2023 2:00 PM EDT Office Visit Neurology [facility] [address] [facility] [address] [place] [phone] Riana Chinchilla, MANAGED CARE ANALYST-CONVERSION MAN [address] [place] [phone] Neurology [facility] Start: 02-14-2023 End: 02-14-2023 Patient encounter procedure Neurology [facility] Start: 01-15-2023 End: 01-15-2023 Admission to same day surgery center 01/15/2023 9:40 AM EST - 01/15/2023 11:50 AM EST Surgery [facility] [address] [place] [phone] Evy Verma MD [address] [place] [address] INSERTION REPLACEMENT NEUROSTIMULATOR GENERATOR CRANIAL/INTRACRANIAL [facility] Comment on above: INSERTION REPLACEMENT NEUROSTIMULATOR GE NERATOR CRANIAL/INTRACRANIAL Start: 01-15-2023 End: 01-15-2023 Insj/rplcmt cranial neurostim pulse generator INSERTION REPLACEMENT NEUROSTIMULATOR GENERATOR CRANIAL/INTRACRANIAL Jeavons syndrome 01/15/2023 9:40 AM EST [facility] Start: 01-15-2023 Subsequent hospital visit by physician 01/15/2023 9:40 AM EST Hospital Encounter [facility] [address] [place] [address] Evy Verma MD [address] [place] [address] Jeavons syndrome [facility] 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 Start: 12-10-2022 End: 12-11-2023 Radiographic imaging procedure XR STIMULATOR/INTRATHECAL PUMP Imaging Routine Jeavons syndrome Expected: 12/10/2022, Expires: 12/11/2023 [facility] Comment on above: Expected: 12/10/2022, Expires: Start: 12-10-2022 End: 12-10-2022 Patient encounter procedure 12/10/2022 11:30 AM EDT Office Visit [facility] [address] [place] [address] [place] [phone] Evy Verma MD [address] [place] [address] [facility] Start: 11-08-2022 COVID-19 VACCINE () COVID-19 VACCINE () [facility] Start: 11-08-2022 Influenza vaccination INFLUENZA VACCINE (#1) [facility] Start: 01-04-2022 End: 01-04-2022 Patient encounter procedure 01/04/2022 Office Visit Neurology Jeannie Meek Cori, DO [address] [place] [address] Neurology [facility] Start: 11-08-2021 Influenza vaccination INFLUENZA VACCINE (Season Ended) [facility] Start: 10-10-2021 End: 10-10-2021 Telemedicine consultation with patient 10/10/2021 Telemedicine Neurology Riana Chinchilla, MANAGED CARE ANALYST-CONVERSION MAN [address] [place] [phone] Neurology [facility] Start: 08-15-2021 End: 08-15-2021 Telemedicine consultation with patient 08/15/2021 Telemedicine Neurology Riana Chinchilla, MANAGED CARE ANALYST-CONVERSION MAN [address] [place] [phone] Neurology [facility] Start: 2013 Screening for malignant neoplasm of cervix CERVICAL CANCER SCREENING DISCUSSION [facility] Start: 07-15-2011 Hepatitis B vaccination HEP B VACCINE (1 of 3 - 19+ 3-dose series) [facility] Start: 07-15-2011 Third diphtheria, tetanus and acellular pertussis (DTaP) vaccination TDAP (ADULT) [facility] Start: 2010 Tetanus vaccination TETANUS [facility] Start: 07-15-2007 HIV screening HIV SCREENING DISCUSSION [facility] Start: 1997 COVID-19 VACCINE (1) COVID-19 VACCINE (1) [facility] Start: 01-14-1993 COVID-19 VACCINE (#1) COVID-19 VACCINE (#1) [facility] Start: 1992 Hepatitis B vaccination HEP B VACCINE (1 of 3 - 3-dose series) [facility] Start: 1992 Hepatitis C antibody, confirmatory test HEPATITIS C VIRUS SCREENING [facility] Start: 1992 Hepatitis C screening HEPATITIS C VIRUS SCREENING [facility] Start: 1992 Tetanus vaccination TETANUS [facility] Ecg routine ecg w/le ast 12 lds w/i&r DE ELECTROCARDIOGRAM, COMPLETE DE - OFFICE PERFORMED Routine 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 Ordered: 01/09/2023 [facility] Comment on above: Ordered: 01/09/2023 Elec horace implt smpl cn npgt prgrmg DE ELEC HORACE IMPLT SMPL CN NPGT PRGRMG DE Charge Routine Jeavons syndrome Ordered: 11/14/2022 [facility] Comment on above: Ordered: 11/14/2022 Elec horace implt smpl cn npgt prgrmg DE ELEC HORACE IMPLT SMPL CN NPGT PRGRMG DE Charge Routine 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 Ordered: 03/12/2023 [facility] Comment on above: Ordered: 03/12/2023 Elec horace implt smpl cn npgt prgrmg DE ELEC HORACE IMPLT SMPL CN NPGT PRGRMG DE Charge Routine Jeavons syndrome Ordered: 06/21/2023 [facility] Comment on above: Ordered: 06/21/2023 Insj/rplcmt cranial neurostim pulse generator INSERTION REPLACEMENT NEUROSTIMULATOR GENERATOR CRANIAL/INTRACRANIAL Jeavons syndrome [facility] Noninvasive ear/puls e oximetry single deter DE NONINVASV OXYGEN SATUR; SINGLE DE - OFFICE PERFORMED Routine 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 Ordered: 01/09/2023 [facility] Comment on above: Ordered: 01/09/2023 Immunizations Immunization Date Immunization Notes Care Provider Fa cili 01-04-2014 influenza, seasonal, injectable, preservative free Evy Verma MD Work Phone: [facility] 01-04-2014 influenza virus vaccine, unspecified formulation Riana Chinchilla MANAGED CARE ANALYST-CONVERSION MAN Work Phone: [facility] Payers Date Payer Category Payer Unknown [id number] 2021 Medicaid [employer] [place] [id number] 2021-Present [address] [place] [address] [id number] 2016 Unknown [id number] 2016 Self-pay 2014 Unknown [id number] 1992 Unknown [id number] 2.16.840.1.493932.3.579.2.173 1992 Unknown [id number] 2.16840.1.492644.3.579.2.173 1992 Unknown [id number] 2.16840.1.698924.3.579.2.754 1992 Unknown [id number] 2.16.840.1.756256.3.579.2.754 1992 Unknown [id number] 2.16.840.1.479830.3.579.2.754 1992 Unknown [id number] 2.16840.1.654866.3.579.2.754 1992 Unknown [id number] 2.16.840.1.159311.3.579.2.593 1992 Unknown [id number] 2.16.840.1.860129.3.579.2.593 1992 Unknown [id number] 2.16.840.1.087794.3.579.2.593 1992 Unknown [id number] 2.16.840.1.357953.3.579.2.593 1992 Unknown [id number] 2.16.840.1.302000.3.579.2.593 1992 Unknown [id number] 2.16.840.1.578167.3.579.2.1259 1992 Unknown [id number] 2.16.840.1.039467.3.579.2.594 1992 Unknown [id number] 2.16.840.1.057716.3.579.2.594 1992 Unknown [id number] 2.16.840.1.198658.3.579.2.594 1992 Unknown [id number] 2.16840.1.963422.3.579.2.594 1992 Unknown [id number] 2.16840.1.677086.3.579.2.594 1992 Unknown [id number] 2.840.1.860937.3.579.2.594 1992 Unknown [id number] 2.16840.1.946063.3.579.2.594 1992 Unknown [id number] 2.16840.1.805098.3.579.2.594 1992 Unknown [id number] 2.16.840.1.386752.3.579.2.594 1992 Unknown [id number] 2.16840.1.366777.3.579.2.594 1992 Unknown [id number] 2.16840.1.183473.3.579.2.594 1992 Unknown [id number] 2.16840.1.743359.3.579.2.594 1992 Unknown [id number] 2.16840.1.263957.3.579.2.594 1992 Unknown [id number] 2.16840.1.391558.3.579.2.594 1959 Unknown [id number] 1959 Unknown [id number] Social History Date Type Detail Facility Start: 10-28-2019 End: 02-14-2023 Tobacco smoking status NHIS Never smoked tobacco [facility] Start: 10-28-2019 End: 02-14-2023 Tobacco use and exposure Smokeless tobacco non-user [facility] Start: 10-28-2019 Alcohol intake Current drinker of alcohol (finding) [facility] Start: 10-28-2019 History SDOH Alcohol Frequency 2 [facility] Start: 10-28-2019 History SDOH Alcohol Comment rare wine [facility] Start: 10-28-2019 Education 17 [facility] Start: 1990 Sex Assigned At Not on file [facility] Start: 11-08-2022 End: 05-28-2023 Alcohol intake Ex-drinker (finding) [facility] Start: 10-28-2019 End: 01-15-2023 History of Social function [facility] Start: 10-28-2019 End: 01-15-2023 Alcohol Use Disorder Identification Test - Consumption [AUDIT-C] [facility] How often to you hav e a drink containing alcohol? Monthly or less [facility] Average Number of Drinks Not on file [facility] Start: 10-29-2019 Gender identity Identifies as female gender (finding) [facility] Start: 10-29-2019 Sexual orientation Heterosexual (finding) [facility] Start: 02-14-2023 Tobacco Comment Never [facility] Start: 02-14-2023 Alcohol Comment At most one or two drinks a month. [facility] Start: 04-22-2023 Alcohol intake Not Asked [facility] Start: 08-07-2022 Alcohol Comment Occasional alcohol use [facility] Medical Equipment Procedure Code Equipment Code Equipment Origin al Text Equipment Identifier Dates [employer] [id number] Start: 01-15-2023 Clinical Notes 07-04-2021 to 05-28-2023 Riana Chinchilla APRN-DAI - 05/28/2023 2:00 PM Marjan Burks DO - 04/22/2023 1:00 PM ANACrystal Duy Chinchilla, MANAGED CARE ANALYST-CONVERSION MAN - 02/14/2023 4:00 PM ESTPatient InstructionsDischarge Instructions Note Date & Type Note Facility 05-28-2023 History of Present illness Narrative Images from the original note were not included. Rowena Drake was seen in the [facility] at [facility] on 05/28/2023. She is here today for a follow-up in clinic accompanied by her , Pedro. She was last seen on 04/19/[address] Cori Dennis DO and with me 02/14/2023. History of Present Illness INTERVAL HISTORY: Rowena is a 32 y.o. right handed female who is here for VNS titration today. She has continues to experience breakthrough seizures daily though they are less in frequency. She is also having less myoclonic jerks. She is not sure how helpful the lamotrigine has been but she has tolerated the VNS titration from last visit. She increased the lamotrigine SR to 300 mg daily. Since her last office visit she continues to track her mood, seizures, and menstrual cycle to observe for patterns though she has not identified one currently. Recently she started magnesium glycinate for muscle pain and found it has also decreased her tension headaches. She has been using a sun lamp and accupressure mat that she feels has been helpful for her mood that tends be affected seasonally. Pertinent Seizure History Per Dr Dennis 04/2022: [...] 24 hours. 2 Each 0 Prenat MV-Min w/Wp-Rzzaot-NZC ( COMPLETE PO) Take 1 tablet by mouth at bedtime. Sertraline 100 MG tablet take 1 tablet at bedtime 90 tablet 3 No facility-administered medications prior to visit. REVIEW OF SYSTEMS Double Vision - Dizziness - Sleepiness + Blurred Vision - Unsteadiness - Shaky hands - Upset Stomach + Weight Gain - Headaches + Nervousness + Depression + Memory problems + Disturbed Sleep + Difficulty Concentrating + Rashes - Hair loss - Tiredness + Constipation + Are you interested in learning about clinical trials for treatment of your epilepsy that we offer at the [facility]? Yes If you have tried 2 or 3 anti-seizure medications and your seizures are still not controlled, are you interested in learning about surgical options for your epilepsy that we can offer at the [facility]? No Neurological Disorders Depression Inventory for Epilepsy (NDDI-E) Everything is a struggle: Always or often Nothing I do is right: Rarely Feel guilty: Always or often I'd be better off : Never Frustrated: Rarely Difficulty finding pleasure: Rarely Total NDDI-E Score: 15 05/28/2023 2:00 PM 07/04/2021 8:20 AM ANDRIA 7 Anxiety Screen Feeling nervous, anxious or on edge More than half the days More than half the days Not being able to stop or control worrying More than half the days More than half the days Worrying too much about different things Nearly every day More than half the days Trouble relaxing More than half the days Several days Being so restless that it is hard to sit still Not at all Several days Becoming easily annoyed or irritable More than half the days More than half the days Feeling afraid as if something awful might happen Not at all Not at all ANDRIA-7 Total Score 11 10 If you checked off any problems, how difficult have these problems made it for you to do your work, take care of things at home, or get along with other people? Very difficult Not difficult at all No data to display PHYSICAL EXAM Vitals: 05/28/23 1404 BP: 122/74 Pulse: 92 Temp: 98 degrees F (36.7 degrees C) TempSrc: Infrared Weight: 88.7 kg (195 lb 8 oz) Height: 1.613 m (5' 3.5 ) Body mass index is 34.09 kg/m . General: alert, anxious, no distress, [...] , THIAMNRBC , B12 Neurodiagnostics: Neuroimaging: Neuropsychology Testin05/28/2023 NEURO VNS Date Placed 01/15/2023 01/15/2023 Model Number 1000 1000 Serial Number [id number] Output Current (mA) 2.5 mA 2.25 mA Signal Frequency (Hz) 20 Hz 20 Hz Pulse Width (microseconds) 250 microseconds 250 microseconds Signal ON Time (seconds) 30 seconds 30 seconds Signal OFF Time (minutes) 1.1 minutes 1.1 minutes Autostim Output Current (mA) 2.75 mA 2.5 mA Autostim Pulse Width (microseconds) 250 microseconds 250 microseconds Autostim ON Time (seconds) 30 seconds 30 seconds Tachycardia Detection On On Heartbeat Detection Sensitivity 3 3 Threshold for Autostim (%) 40 % 40 % Number of Autostim Uses 78 Magnet Output Current (mA) 2.75 mA 2.75 mA Magnet Pulse Width (microseconds) 500 microseconds 500 microseconds Magnet ON Time (seconds) 14 seconds 14 seconds Number of Magnet Uses 0.03 Output Status 2.25 Lead Impedence 2493 Elective Replacement Indicator 75-100 Assessment and Plan Assessment: Rowena is a pleasant 32 y.o. 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 A diagnosis of Anxiety disorder, unspecified type was also pertinent to this visit. who continues to experience improvements in seizures with the increase in lamotrigine and VNS changes since her last office visit. She also tolerated her VNS changes today. Plan: 1. Jeavons syndrome - continued increased lamotrigine 300 mg daily and continue maintenance dose of clobazam - DE ELEC HORACE IMPLT SMPL CN NPGT PRGRMG - tolerated VNS changes today (increase to normal and autostim output), recommended that she swipe the magnet [...] activity lasting longer than 5 minutes. 2. Anxiety disorder, unspecified type - feels anxiety has increased recently and is currently utilizing coping mechanisms to help with every day management. Discussed sertraline and will increase dose to 150 mg daily at bedtime. Discussed common side effects from SSRI including but not limited to: anticholingeric effects, drowsiness/insomnia, mood changes, dizziness, weight gain, sexual dysfunction but also rare adverse effects including suicidal ideation and serotonin syndrome. Recommend monitoring for signs of serotonin toxicity while patient is taking this medication including agitation, restlessness, confusion, tachycardia, pupillary dilatation, loss of muscle coordination, muscle rigidity, diaphoresis, and diarrhea. Should she experience feelings of self harm or harm to others, I have asked her to be evaluated at the nearest ED and to notify our clinic right away. These can occur as well with dose changes. - Sertraline 100 MG tablet; Take 1.5 tablets by mouth at bedtime. Dispense: 45 tablet; Refill: 2 Encouraged use of JumpIn to send messages to provider as needed for questions and concerns or can call our clinic @ [phone]. She will return in [address] Dennis or sooner if clinically indicated. Signed, Riana Chinchilla MSN, MANAGED CARE ANALYST-CONVERSION MAN [facility] Department of Neurology - Epilepsy Division [address] [place] [address] - 7th floor [place] [address] Pager: [phone] I spent a total of 35 minutes on the date of the service which included preparing to see the patient, kiaa-wi-cbxp patient care, completing clinical documentation, performing a medically appropriate examination and counseling and educating the patient/family/caregiver. Note to patient: The Cures Act makes medical notes like these available to patients in the interest of transparency. However, be advised this is a medical document. It is intended as otif-xu-ttlp communication. It is written in medical language and may contain abbreviations or verbiage that are unfamiliar. It may appear blunt or direct. Medical documents are intended to carry relevant information, facts as evident, and the clinical opinion of the practitioner. documented in this encounter [facility] 04-22-2023 History of Present illness Narrative Reason [...] nursing note reviewed. Exam conducted with a game designer/creative director present. Vitals: Estimated body mass index is [...] Donovan Burks DO documented in this encounter [facility] 02-14-2023 History of Present illness Narrative Images from the original note were not included. Rowena Byers was seen in the [facility] at [facility] on 02/14/2023. She is here today [...] 24 hours. 2 Each 0 Prenat MV-Min w/Ba-Yfxork-SZR ( COMPLETE PO) Take 1 tablet by [...] something awful might happen Not at all ANRDIA-7 Total Score 10 If you checked off [...] ID ABW Model ID Santosva Serial # [id number] Implanted 01/15/2023 Communication OK Output Current Status [...] VNS Simple Reprogramming (1-3 changes) CPT code 11324 Assessment and Plan Assessment: Rowena is a [...] longer than 5 minutes. Encouraged use of JumpIn to send messages to provider as needed for questions and concerns or can call our clinic @ [phone]. She will return in 3 months with me and [address] Dennis or sooner if clinically indicated. Signed, Riana Chinchilla MSN, NOLBERTO-CONVERSION MAN [facility] Department of Neurology - Epilepsy Division [address] [place] [address] - 7th floor [place] [address] Pager: [phone] I spent a total of 34 minutes on the date of the service which included preparing to see the patient, xseg-mt-hedm patient care, completing clinical documentation, performing a medically appropriate examination and counseling and educating the patient/family/caregiver. Note to patient: The 21st Century Cures Act makes medical notes like these available to patients in the interest of transparency. However, be advised this is a medical document. It is intended as utnf-iz-rfzw communication. It is written in medical language and may contain abbreviations or verbiage that are unfamiliar. It may appear blunt or direct. Medical documents are intended to carry relevant information, facts as evident, and the clinical opinion of the practitioner. documented in this encounter [facility] 02-14-2023 Instructions JETHRO Juan - [...] after regular office hours, a neurologist is crime prevention worker for urgent issues. Call the neurology office number ([phone]) to reach the neurologist crime prevention worker if you are continuing to experience many more seizures than usual despite use of your rescue medications. Please try to remember that the neurologist crime prevention worker may not have access to your complete medical record and may not be as familiar with your history. If you have access through [employer] you can contact us through that system as well. If you have documents that need completed or sent to our clinic, please have them faxed to [phone]. 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 Seizure First Aid Training Can Be Found Here (it's free!): [email or web address] documented in this encounter [facility] 01-15-2023 Miscellaneous Notes [facility] OPERATIVE REPORT PATIENT NAME: Rowena Byers [...] The IPG had been interrogated by the cash application representative from the vendor. The upper chest [...] the new IPG and secured with the college or university faculty member's screwdriver. At this point, a programmer business was used to interrogate the new pulse [...] VSS, anesthesia sign out completed. 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 SURGEON Surgeon(s) and Role: * Evy Verma MD - Primary ANESTHESIOLOGIST Anesthesiologist: Cydney Zavala MD AREA DIRECTOR: Geraldo Marion APRN-AREA DIRECTOR Student Nurse Urban Renewal Manager: Chiquita Polanco SURGICAL STAFF Assembly Operator: Miki Gary RN; Linda Gilmore RN Relief Assembly Operator: Janet Carreon RN Scrub Person: Marielle Ibrahim Resident Assisting: Colt Meadows MD COMPLICATIONS None ESTIMATED BLOOD LOSS Minimal SPECIMENS No specimen sent * No specimens in log * Colt Meadows MD January 15, 2023 11:03 AM documented in this encounter [facility] 01-15-2023 Nurse Note Pt and family were given AVS and verbalize understanding of instructions. Pt discharged via wheelchair. [facility] Surgery Postoperative evaluation and management note [facility] OPERATIVE REPORT PATIENT NAME: Rowena Byers [...] The IPG had been interrogated by the cash application representative from the vendor. The upper chest [...] the new IPG and secured with the college or university faculty member's screwdriver. At this point, a programmer business was used to interrogate the new pulse [...] entire procedure and performed the critical portions. [facility] 01-15-2023 Nurse Note Report called to RN SPR, VSS, anesthesia sign out completed. 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 SURGEON Surgeon(s) and Role: * Evy Verma MD - Primary ANESTHESIOLOGIST Anesthesiologist: Cydney Zavala MD AREA DIRECTOR: Geraldo Marion APRN-AREA DIRECTOR Student Nurse Urban Renewal Manager: Chiquita Polanco SURGICAL STAFF Assembly Operator: Miki Gary RN; Linda Gilmore RN Relief Assembly Operator: Janet Carreon RN Scrub Person: Marielle Ibrahim Resident Assisting: Colt Meadows MD COMPLICATIONS None ESTIMATED BLOOD LOSS Minimal SPECIMENS No specimen sent * No specimens in log * Colt Meadows MD January 15, 2023 11:03 AM [facility] 01-15-2023 Nurse Surgical operation note Report given to PUBLIC WELFARE WORKER. Patient transported to PACU with anesthesia on a cart and oxygen. [facility] 01-15-2023 Nurse Note Report given to PUBLIC WELFARE WORKER. Patient transported to PACU with anesthesia on a cart and oxygen. documented in this encounter [facility] 01-15-2023 Hospital Discharge instructions Colt Meadows MD - 01/15/2023 9:30 AM EST Discharge Instructions for DBS Surgery & Battery Placement Surgery Here are some general guidelines to assist you in your recovery at home. Please do not hesitate to call us with any questions or concerns you may have. We can be reached at [phone]. Your appointmentS will be in the Neuromodulation clinic in [address] Incision Care: If you have a [...] 101 degrees F documented in this encounter [facility] 01-15-2023 History and physical note [...] SpO2 98 %. I have reviewed Rowena Menjivar Coltchiki's medical, surgical and other pertinent history, and I have updated the medication and allergy information in the computerized patient record. I have examined the patient, reviewed the previous H&P completed on date (01-09-23) and there are no changes. Today's surgical history and physical update was completed by Evy Verma MD, 01/15/2023, 9:08 AM. [facility] Work Phone: 01-15-2023 History and [...] 01/15/2023, 9:08 AM. documented in this encounter [facility] 01-09-2023 History and physical note [...] 10 mg in 24 hours. Prenat MV-Min w/Zh-Euzayc-UQH ( COMPLETE PO) Take 1 tablet by [...] % ointment HCG QUALITATIVE, URINE Pulse Ox DE ECG, CLINIC PERFORMED Lab A/P - Labs [...] has been medically OPTIMIZED FOR SURGERY. [facility] Perioperative [facility] [address] [place] [address] Review of Systems (OSUROS)Review of Systems Constitutional: [...] PCP - General (Internal Medicine) Riana Chinchilla APRN-CONVERSION MAN (Certified Nurse Practitioner) Family History Problem Relation Age of Onset Prostate Cancer Maternal Grandfather Mental Illness Maternal Grandmother Depression , Anxiety Prostate Cancer Paternal Grandfather Cancer- Other Paternal Grandfather Diabetes Paternal Uncle Social History Socioeconomic History Marital status: Highest education level: Bachelor's degree (e.g., BA, AB, BS) 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 Prenat MV-Min w/Nq-Rzrgkq-OOJ ( COMPLETE PO) Take 1 tablet by [...] % ointment HCG QUALITATIVE, URINE Pulse Ox DE ECG, CLINIC PERFORMED Lab A/P - Labs [...] has been medically OPTIMIZED FOR SURGERY. [facility] Per[facility]operative [facility] [address] [facility] Review of Systems (OSUROS)Review of Systems [...] PCP - General (Internal Medicine) Riana Chinchilla APRN-CONVERSION MAN (Certified Nurse Practitioner) Family History Problem Relation Age of Onset Prostate Cancer Maternal Grandfather Mental Illness Maternal Grandmother Depression , Anxiety Prostate Cancer Paternal Grandfather Cancer- Other Paternal Grandfather Diabetes Paternal Uncle Social History Socioeconomic History Marital status: Highest education level: Bachelor's degree (e.g., BA, AB, BS) 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 She takes Lamictal for treatment 4. 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 Will check hCG today and on day of surgery. Patient understands that surgery may be cancelled if she is . Anesthesia Assessment:No contraindications to planned surgery. Pending review of the patient's labs.ECG reviewed. Whitney Ward MD [facility] Preoperative Assessment Center documented in this encounter [facility] 01-09-2023 Instructions Robyn Dempsey, CASSIE - 01/09/2023 8:30 AM EDT Patient Medication [...] take Herbal Medication (including multi-vitamin, fish oil ([place]-3), garlic, Glucosamine - Chondroitin ,gingko, ginseng, Vitamin [...] site one week prior to surgery. - [place] your teeth and rinse your mouth the morning of surgery. - Do NOT bring your dentures or partials with you into surgery. They may be lost. Give them to someone to bring to you after surgery. If you are unable to complete your scheduled testing or appointments made by [facility] please contact [facility] at [phone]. Failure to do so could delay or [...] surgery, please notify our team immediately at [phone]. - If you have Sleep apnea and have a CPAP or BIPAP, then bring your CPAP mask and machine with you to the hospital. Please contact Medical Information Management Department for all records requests. [phone] Puma/mateo documented in this encounter [facility] 12-10-2022 History of Present illness Narrative [...] that were dedicated to clinical evaluation, including szfy-ub-clbp time; counseling and education; chart completion; reviewing [...] aspirin, excedrin, plavix), multivitamins/minerals/herbal supplements (such as [place]-3, garlic, Glucosamine - Chondroitin, gingko, ginseng, Vitamin E, fish oil, etc), non-steroidal anti-inflammatory medications (NSAIDs) (such as Ibuprofen/Motrin/Advil, Aleve, Celebrex) for 10 days prior to surgery, as these are blood thinners. She was advised that Tylenol is the preferred option for pain. She stated understanding. documented in this encounter [facility] 11-08-2022 History of Present illness Narrative Images from the original note were not included. Rowena Byers was seen in the [facility] at [facility] on 11/08/2022. She is here today for a follow-up in clinic accompanied by her , Pedro. She was last seen on 04/19/[address] Cori Dennis, and with me 09/19/22. History of Present [...] ID AW Model ID SenTiva Serial # [id number] Implanted 03/27/2018 Communication OK Output Current Status [...] VNS Simple Reprogramming (1-3 changes) CPT code 12681 Assessment and Plan Assessment: Rowena is a [...] would like to wait Encouraged use of JumpIn to send messages to provider as needed for questions and concerns or can call our clinic @ [phone]. She will return in 2 months or sooner if clinically indicated. Signed, Riana Chinchilla MSN, MANAGED CARE ANALYST-CONVERSION MAN [facility] Department of Neurology - Epilepsy Division [address] [place] [address] - 7th floor [place], [place] [address] Pager: [phone] I spent a total of 46 minutes on the date of the service which included preparing to see the patient, rliy-hu-sutm patient care, completing clinical documentation, performing a medically appropriate examination and counseling and educating the patient/family/caregiver. Note to patient: The Century Cures Act makes medical notes like these available to patients in the interest of transparency. However, be advised this is a medical document. It is intended as pxtz-rz-plnu communication. It is written in medical language and may contain abbreviations or verbiage that are unfamiliar. It may appear blunt or direct. Medical documents are intended to carry relevant information, facts as evident, and the clinical opinion of the practitioner. documented in this encounter [facility] 11-08-2022 Instructions JETHRO Juan - [...] ID AW Model ID SenTiva Serial # [id number] Implanted 03/27/2018 Communication OK Output Current Status OK Current Delivered 1.75 Lead Impedance OK Impedance Value 2903 IFI NO Average # of Inhibited Auto stimulations Daily Avg. Stim % Per Day %Therapy Normal 843.56 AutoStim 26.89 Magnet 0.04 Total 870.50 documented in this encounter [facility] 07-04-2021 Instructions JETHRO Juan - [...] weeks with Riana documented in this encounter [facility] 07-04-2021 History of Present illness Narrative Images from the original note were not included. Rowena Byers was seen in the [facility] on 07/04/2021. 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 Encouraged use of JumpIn to send messages to provider as needed for questions and concerns or can call our clinic @ [phone]. She will return in 6 weeks and 3 months with me and [address] Dennis or sooner if clinically indicated. Signed, Riana Chinchilla MSN, MANAGED CARE ANALYST-CONVERSION MAN [facility] Department of Neurology - Epilepsy Division [address] - 7th floor [place], [place] [address] Pager: [phone] Time to complete visit: I spent approximately 38 minutes reviewing the chart prior to the appointment, in face to face counseling with the patient, and with documentation after the visit. 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 [facility] Diagnosis Jeavons syndrome- Primary [facility] Diagnosis Jeavons syndrome- Primary [facility] Diagnosis Jeavons syndrome Jeavons syndrome [facility] Diagnosis Preop exam for internal medicine- Primary Other specified pre-operative examination 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 Other postprocedural status Jeavons syndrome [facility] 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 Other postprocedural status [facility] Encounter for fertility planning [facility] Diagnosis Jeavons syndrome- Primary Anxiety disorder, unspecified type [facility] Consultation (Routine) - New Request Specialty Diagnoses / Procedures Referred By Rainer ramos Referred To Contact Neurologic Surgery Diagnoses Jeavons syndrome Evy Verma MD [address] [place] [address] Referral ID Status Reason Start Date Expiration Date V isits Requested Visits Authorized [id number] New Request 12/10/2022 01/04/2024 1 1 [facility] Summary Purpose Family History No [...] Referred To Contact Diagnoses Generalized nonconvulsive epilepsy RaoulRiana haddad, MANAGED CARE ANALYST-CONVERSION MAN [address] [place] [address] Referral ID Status Reason Start Date Expiration Date V isits Requested Visits Authorized [id number] Pending Review 1 1 Specialty Diagnoses / Procedures Referred By Contac t Referred To Contact Procedures DVT/VTE RISK ASSESSMENT Evy Verma MD [address] [place] [address] Referral ID Status Reason Start Date Expiration Date V isits Requested Visits Authorized [id number] New Request 01/15/2023 02/09/2024 1 1 Additional Source Comments INFORMATION SOURCE (unrecogn ized section and content) DATE CREATED AUTHOR 09/03/2017 [facility] DATE CREATED AUTHOR AUTHOR'S ORGANIZ ATION 03/28/2018 [facility] DATE CREATED AUTHOR AUTHOR'S ORGANIZ ATION 07/02/2018 [facility] DATE CREATED AUTHOR AUTHOR'S ORGANIZ ATION 10/02/2019 [facility] DATE CREATED AUTHOR AUTHOR'S ORGANIZ ATION 06/01/2022 [facility] DATE CREATED AUTHOR AUTHOR'S ORGANIZ ATION 04/24/2023 [facility] EP[facility] DATE CREATED AUTHOR AUTHOR'S ORGANIZ ATION 05/29/2023 [facility] EPIC DATE CREATED AUTHOR AUTHOR'S ORGANIZ ATION 05/29/2023 [facility] Reason for Visit (unrecogniz ed section and content) Reason Comments Follow-up Reason Comments Follow-up Reason Comments New Patient 32 y.o female here f or consult. Specialty Diagnoses / Procedures Referred By Contac t Referred To Contact Neurologic Surgery Diagnoses Jeavons syndrome S/P placement of VNS (vagus nerve stimulation) device Riana Chinchilla APRN-CONVERSION MAN [address] [place] [phone] Referral ID Status Reason Start Date Expiration Date V isits Requested Visits Authorized [id number] New Request 09/19/2022 10/14/2023 1 1 Reason Comments Preoperative Assessment Specialty Diagnoses / Procedures Referred By Contac t Referred To Contact Neurologic Surgery Diagnoses Jeavons syndrome Evy Verma MD [address] [place] [phone] Referral ID Status Reason Start Date Expiration Date V isits Requested Visits Authorized [id number] New Request 12/10/2022 01/04/2024 1 1 Specialty Diagnoses / Procedures Referred By Contac t 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] Procedures DE IMP STIM,CRANIAL,SUBQ,1 ARRAY INSERTION REPLACEMENT NEUROSTIMULATOR GENERATOR CRANIAL/INTRACRANIAL Evy Verma MD [address] [place] [phone] [facility] [address] [place] [address] Referral ID Status Reason Start Date Expiration Date Visits Re quested Visits Authorized [id number] 1 1 Reason Comments Infertility Care Teams (unrecognized sec tion and content) Team Guide Relationship Specialty Start Date End Date Tim Rolon DO [address] [place] [address] PCP - General Internal Medicine 09/19/22 Riana Chinchilla, MANAGED CARE ANALYST-CONVERSION MAN [address] [place] [phone] Certified Nurse Practitioner 11/08/22 Team Guide Relationship Specialty Start Date End Date Tim Rolon [address] [place] [address] PCP - General Internal Medicine 09/19/22 Riana Chinchilla, MANAGED CARE ANALYST-CONVERSION MAN [address] [place] [phone] Certified Nurse Practitioner 11/08/22 Team Guide Relationship Specialty Start Date End Date Tim Rolon [address] [place] [address] PCP - General Internal Medicine 09/19/22 Riana Chinchilla, MANAGED CARE ANALYST-CONVERSION MAN [address] [place] [phone] Certified Nurse Practitioner 11/08/22 Team Guide Relationship Specialty Start Date End Date Tim Rolon [address] [place] [address] PCP - General Internal Medicine 09/19/22 Riana Chinchilla, MANAGED CARE ANALYST-CONVERSION MAN [address] [place], [place] [phone] Certified Nurse Practitioner 11/08/22 Team Guide Relationship Specialty Start Date End Date Tim Rolon [address] [place] [address] PCP - General Internal Medicine 09/19/22 Riana Chinchilla, MANAGED CARE ANALYST-CONVERSION MAN [address] [place] [phone] Certified Nurse Practitioner 11/08/22 Team Guide Relationship Specialty Start Date End Date Tim Rolon DO [address] [place] [address] PCP - General Internal Medicine 09/19/22 Riana Chinchilla, MANAGED CARE ANALYST-CONVERSION MAN [address] [phone] Certified Nurse Practitioner 11/08/22 Team Guide Relationship Specialty Start Date End Date Tim Rolon MD [address] [place] [id number] PCP - General Internal Medicine 08/08/22 Team Guide Relationship Specialty Start Date End Date Tim Rolon DO [address] [place] [id number] PCP - General Internal Medicine 09/19/22 Riana Chinchilla, MANAGED CARE ANALYST-CONVERSION MAN [address] [phone] Certified Nurse Practitioner 11/08/22 Scheduled Active and [...] - Comment: mixed 1:1 w/Lido with epi [id number]) ceFAZolin (ANCEF) 2 g in dextrose 100 mL premix IVPB (COMPLETED) 2 g, Intravenous, Administer over 30 Minutes, CHEMICAL DEPENDENCY ATTENDANT TO PROCEDURE, 1 dose, Starting on Fri01/15/23 at 0758, Until Discontinued, Other, Surgical Prophylaxis, Initiate antibiotic administration 30-60 minutes prior to surgical incision and complete administration prior to surgical incision., Pre-op/Pre-Proc 0955 (Given - Provid er: Geraldo Marion APRN-AREA DIRECTOR) lidocaine-epinephrine 2 %-1:458455 injection (CANCELED) NEEDED, Starting on Fri01/15/23 at [...] Order-specific weight), Intravenous, Administer over 1 Hours, CHEMICAL DEPENDENCY ATTENDANT TO PROCEDURE, 1 dose, Starting on Fri01/15/23 [...] BE BASED ON THE PRIMARY CLINICAL RECORDS. [facility] [email or web address] provides no warranty or guarantee of the accuracy or completeness of information in this document.
[2023-06-27 10:13] LABS: HCG Quantitative <1 mIU/mL
--- NOTE | 2023-06-27 13:46 | SUR.PREOP ---
06/23/23 Pt instructed on procedure, date, time, and prep.
--- NOTE | 2023-06-27 13:54 | PC.NURSE ---
1055 Pt denies any abdominal cramping or vag bleeding.
== END 2023-06-27 11:00 | disposition home or self-care (01) ==
LOC: LAB 09:32
PROVIDERS: Radiology Diagnostic Radiology; PCP Internal Medicine; Visit Provider Obstetrics & Gynecology
DX: N83.9 Noninflammatory disorder of ovary, fallopian tube and broad ligament, unspecified (principal)
CPT/HCPCS: 36415; 58340; 74740; 84702; Q9966

== ENCOUNTER 2023-07-09 11:17 | Outpatient (OUT) | payer OTHER, SELFPAY ==
[2023-07-10 04:07] LABS: Progesterone 16.6 ng/mL (.)
== END 2023-07-09 11:18 | disposition home or self-care (01) ==
LOC: LAB 11:17
PROVIDERS: PCP Internal Medicine; Visit Provider Obstetrics & Gynecology
DX: N97.0 Female infertility associated with anovulation (principal)
CPT/HCPCS: 36415; 84144

== ENCOUNTER 2023-08-08 10:30 | Outpatient (OUT) | payer OTHER, SELFPAY ==
[2023-08-09 13:12] LABS: Progesterone 11.3 ng/mL (.)
== END 2023-08-08 10:31 | disposition home or self-care (01) ==
LOC: LAB 10:30
PROVIDERS: PCP Internal Medicine; Visit Provider Obstetrics & Gynecology
DX: N97.0 Female infertility associated with anovulation (principal)
CPT/HCPCS: 36415; 84144

== ENCOUNTER 2023-09-11 10:09 | Outpatient (OUT) | payer OTHER, SELFPAY ==
--- OUTSIDE RECORDS SUMMARY | 2023-09-11 10:13 | XMS_ITS | CCD ---
Author Organization [facility] Care Team Providers Care Chronometer Tester Name Role Phone JAMIL SMITH Referring Unavailable ARIA FORDE Primary Care Unavailable JAMIL SMITH Referring Unavailable MAURISIO ARIA Ayad Primary Care Unavailable NONE PER PATIENT, . [...] Unavailable Tim Rolon DO Primary Care Provider [phone] Raoul ARVIZU-Riana LALA Unavailable Tim Rolon MD Primary Care Provider DONOVAN BURKS Attending Unavailable TIM ROLON Referring Unavailable RAOUL, CRYSTAL G Attending Unavailable BALL, TIM Primary Care Unavailable BALL, TIM Referring Unavailable RAOUL, CRYSTAL G Attending Unavailable BALL, TIM Primary Care Unavailable BALL, TIM Primary Care Unavailable VERMA, EVY C Attending Unavailable VERMA, EVY C Referring Unavailable BALL, TIM Primary Care Unavailable ESAU HERNANDEZ Attending Unavailable VERMA, EVY C Referring Unavailable SELF, SELF Referring Unavailable RAOUL, CRYSTAL G Attending Unavailable BALL, TIM Primary Care Unavailable SELF, SELF Referring Unavailable RAOUL, CRYSTAL G Attending Unavailable RAOUL, CRYSTAL G Referring Unavailable RAOUL, CRYSTAL G Attending Unavailable BALL, TIM Primary Care Unavailable RAOUL, CRYSTAL G Referring Unavailable BALL, TIM Primary Care Unavailable VERMA, EVY C Attending Unavailable BALL, TIM Primary Care Unavailable BALL, TIM Primary Care Unavailable VERMA, EVY C Referring Unavailable VERMA, EVY C Attending Unavailable BALL, TIM Primary Care Unavailable VERMA, EVY C Admitting Unavailable BALL, TIM Primary Care Unavailable BALL, TIM Primary Care Unavailable VERMA, EVY C Attending Unavailable BALL, TIM Primary Care Unavailable VERMA, EVY C Referring Unavailable BALL, TIM Referring Unavailable BALL, TIM Primary Care Unavailable CORI HERNÁNDEZ Attending Unavailable Raoul [employer] MAKER, Crystal G Unavailable Allergies Allergy Classification Reported Allergen(s) Allergy Type Date of Onset Reaction(s) Facility (9 sources) Seasonal allergy Propensity to adverse reactions to drug 7 Runny Nose, Congestion [facility] Work Phone: (2 sources) Pollen Propensity to adverse reactions 7 Runny nose [facility] (2 sources) Other Propensity to adverse reactions 2 Runny nose [facility] Medications Current Medications Medication Drug Class(es) Dates Sig (Normalized) Sig (Original) 8 hr acetaminophen 650 mg extended release oral tablet (5 sources) Start: 01-15-2023 take 1 tablet by mouth every six hours as needed acetaminophen 650 MG Tab CR Take 1 tablet by mouth every 6 hours as needed for Mild Pain. 01/15/2023 Active Start: 01-15-2023 End: 01-15-2023 take 1 tablet by mouth every four hours as needed Acetaminophen (TYLENOL) tablet 650 mg amoxicillin 875 mg / clavulanate 125 mg oral tablet (1 source) Penicillin-class Antibacterial Start: 07-07-2023 take 1 tablet by mouth twice daily Amoxicillin-Pot Clavulanate Active 1 TAB PO Twice daily 14 7 July 07, 2023 12:00am Calcium Carb-Cholecalciferol (CALCIUM + D3 PO) (1 source) take 600 mg by mouth once daily Calcium Carb-Cholecalcifero l (CALCIUM + D3 PO) Take 600 mg by mouth daily. Active calcium carbonate 1500 mg / cholecalciferol 500 unt oral capsule (1 source) Vitamin D Start: 07-07-2023 Calcium Carbonate-Vitamin D3 (Calcium 600 With Vitamin D3) 600 mg-12.5 mcg (500 unit) capsule Active CAP PO July 07, 2023 12:00am docosahexaenoic acid 200 mg oral capsule (1 source) Start: 07-07-2023 Docosahexaenoic Acid ( Dha) 200 mg capsule Active MG PO July 07, 2023 12:00am escitalopram 20 mg oral tablet (1 source) Serotonin Reuptake Inhibitor Start: 04-30-2021 take 1 tablet by mouth once daily at dinner escitalopram 20 MG tablet Indications: Seizure disorder Take 1 tablet by mouth Daily (with dinner). 30 tablet 11 04/30/2021 Active folic acid 1 mg oral tablet (12 sources) Start: 07-07-2023 take 1 mg by mouth every week Folic Acid Active 1 MG PO every week July 07, 2023 12:00am Start: 04-30-2021 End: 06-16-2023 take 1 tablet by mouth once daily at dinner Folic acid 1 MG tablet Indications: Epilepsy, unspecified, not intractable, without status epilepticus take 1 tablet by mouth every day with dinner 90 tablet 3 06/16/2023 Active L.Ac,Bul,Par,Rha-B.Ani,Mehran-I nu (Probiotic Digest Supp (6-Strn)) 10 billion cell -100 mg capsule (1 source) Start: 07-07-2023 L.Ac,Bul,Par,Rha-B.Ani,Mehran-I nu (Probiotic Digest Supp (6-Strn)) 10 billion cell -100 mg capsule Active CAP PO July 07, 2023 12:00am lacosamide 100 mg oral table t (1 source) Anti-e pilept ic Agent Start: 07-04-2021 End: 07-05-2022 lacosamide (Vimpat) 100 MG tablet Indications: Generalized nonconvulsive epilepsy W1: 1/2 tab twice daily W2 and on: 1 tab twice daily 60 tablet 5 07/04/2021 07/05/2022 Active 24 hr lamoTRIgine 50 mg extended release oral tablet (11 sources) Mood Stabil izer, Anti-e pilept ic Agent Start: 08-21-2023 take 1 tablet by mouth once daily LamoTRIgine (LaMICtal XR) 100 MG Tab SR 24 HR Take 1 tablet by mouth daily. 90 tablet 1 08/21/2023 Active Start: 08-21-2023 take 1 tablet by josh th once daily LamoTRIgine (LaMICtal XR) 50 MG Tab SR 24 HR Take 1 tablet by mouth daily. 7 tablet 08/21/2023 Active Start: 07-07-2023 take 300 mg by mouth once carli y Lamotrigine Active 300 MG PO Daily July 07, 2023 12:00am Start: 02-12-2023 End: 06-21-2023 take 1 tablet by mouth once daily at bedtime LamoTRIgine 300 MG Tab SR 24 HR Indications: Jeavons syndrome take 1 tablet by mouth everyday at bedtime 90 tablet 1 06/21/2023 Active Start: 11-26-2022 take 1 tablet by [...] BEDTIME 90 tablet 0 10/21/2022 Active letrozole (9 sources) Aromatase Inhibitor Start: 07-07-2023 take 7.5 mg by mouth once daily Letrozole Active 7.5 MG PO Daily July 07, 2023 12:00am Start: 04-18-2023 End: 04-23-2023 take 3 tablets by mouth once daily letrozole (Femara) 2.5 MG chemo tablet Indications: Female infertility Take 3 tablets (7.5 mg total) by mouth Daily for 5 days. 15 tablet 0 04/18/2023 04/23/2023 Active Start: 11-19-2022 End: 08-21-2023 take 1 tablet by mouth once daily at bedtime Femara 2.5 MG tablet Take 1 tablet by mouth at bedtime. Cycle day 3,4 5, 6,7 7.5 mg 11/19/2022 08/21/2023 Discontinued loratadine 10 mg oral tablet (9 sources) loratadine 10 MG tablet Take 1 tablet by mouth as needed. Active 12 hr loratadine 5 mg / pseudoephedrine sulfate 120 mg extended release oral tablet (2 sources) alpha-Adrenergic Agonist take 1 tablet by mouth once in the morning, then take 1 tablet by mouth every twelve hours at bedtime loratadine-pseudo ephedrine ER (Claritin-D 12-hour) 5-120 MG 12 hr tablet Take 1 tablet by mouth in the morning and 1 tablet before bedtime. Do not crush, chew, or split. . 0 Active LORazepam 0.5 mg oral tablet (10 sources) Benzodiazepine Start: 07-07-19 take 0.5 mg by mouth once daily Lorazepam Active 0.5 MG PO Daily July 07, 2023 12:00am Start: 03-22-2022 End: 06-21-2023 LORazepam 0.5 MG tablet Amy cations: Anxiety disorder, unspecified type 1 tab up to three times a week as needed for anxiety 10 tablet 1 03/22/2022 06/21/2023 Discontinued Magnesium glycinate (3 sources) Start: 07-07-2023 Magnesium Glyc inate Active MG PO July 07, 2023 12:00am take 1000 mg by mouth once daily MAGNESIUM GLYCINATE PO Take 1,000 mg by mouth daily. Active magnesium oxide 400 mg oral tablet (2 sources) Start: 03-28-2023 End: 07-26-2023 take 1 tablet by mouth in the morning magnesium oxide (Mag-Ox) 400 MG tablet Indications: Other migraine without status migrainosus, not intractable (CMS/HCC) Take 1 tablet (400 mg) by mouth in the morning. 30 tablet 3 03/28/2023 07/26/2023 Active medroxyPROGESTERone acetate 10 mg oral tablet (7 sources) Progestin Start: 07-07-2023 End: 07-07-2023 take 10 mg by mouth once daily Medroxyprogesterone Active 10 MG PO Daily July 07, 2023 2:44pm melatonin 3 mg oral tablet (13 sources) Start: 07-07-2023 take 3 mg by mouth once daily at bedtime Melatonin Active 3 MG PO Daily at bedtime July 07, 2023 12:00am Start: 03-22-2022 End: 02-14-2023 take 1 tablet by mouth once daily at bedtime Melatonin 3 MG tablet Indications: Difficulty falling asleep at night until budget officer hours TAKE 1 TABLET BY MOUTH EVERYDAY AT BEDTIME 90 tablet 2 03/22/2022 02/14/2023 Discontinued Melatonin 5 MG C hew Tab Chew 1 tablet at bedtime as needed. Active metFORMIN hydrochloride 500 mg oral tablet (9 sources) Biguanide Start: 07-07-2023 take 500 mg by mouth once daily Metformin Active 500 MG PO Daily July 07, 2023 12:00am midazolam 50 mg/ml nasal spray (10 sources) Benzodiazepine Start: 10-02-2020 Midazolam (Nayzilam) 5 [...] Take by mouth 0 Active Prenat MV-Min w/Fe-Uoufia-SS A ( COMPLETE PO) (6 sources) take 1 tablet by mouth once at bedtime Prenat MV-Min w/Aq-Utpczn-PLB ( COMPLETE PO) Take 1 tablet by mouth at bedtime. Active take 1 tablet by mouth once at b edtime Prenat MV-Min w/Wp-Czddea-ASE ( COMPLETE PO) Take 1 tablet by mouth at bedtime. 0 Active MV-Min-Fe Fum-FA-DHA ( 1 PO) (2 sources) MV-Min- Fe Fum-FA-DHA ( 1 PO) Take by mouth. 0 Active sertraline 50 mg oral tablet (14 sources) Serotonin Reuptake Inhibitor Start: 08-21-2023 take 1 tablet by mouth at bedtime Sertraline 100 MG tablet Indications: Anxiety disorder, unspecified type Take 1 tablet by mouth at bedtime. 90 tablet 1 08/21/2023 Active Start: 08-21-2023 take 1 tablet by josh th once daily Sertraline 50 MG tablet Take 1 tablet by mouth daily. 90 tablet 1 08/21/2023 Active Start: 07-07-2023 take 100 mg by mouth once carli y Sertraline Active 100 MG PO Daily July 07, 2023 12:00am Start: 05-28-2023 End: 08-21-2023 take 1.5 tablets by mouth at bedtime Sertraline 100 MG tablet Indications: Anxiety disorder, unspecified type Take 1.5 tablets by mouth at bedtime. 45 tablet 2 05/28/2023 08/21/2023 Discontinued (Reorder) Start: 05-19-2023 End: 05-28-2023 Sertraline 100 MG tablet Indications: Anxiety disorder, unspecified type take 1 tablet [...] (PERCOCET) 5-325 MG per tablet 1 tablet cloBAZam 20 mg oral tablet (13 sources) Benzodiazepine Start: 10-17-2022 End: 08-21-2024 take 1 tablet by mouth once daily at dinner cloBAZam 20 MG tablet Indications: Jeavons syndrome Take 1 tablet by mouth Daily (with dinner). 30 tablet 5 04/20/2023 08/21/2023 Discontinued (Reorder) Start: 04-30-2021 End: 04-30-2022 take 1 tablet by mouth once daily at dinner cloBAZam 20 MG tablet Indications: Nonintractable epilepsy without status epilepticus, unspecified epilepsy type Take 1 tablet by mouth Daily (with dinner). 30 tablet 5 04/30/2021 04/30/2022 Active etonogestrel 68 mg drug implant (1 source) Progestin End: 07-04-2021 Etonogestrel 68 MG SC implant Inject 68 mg under the skin. 0 07/04/2021 Discontinued mupirocin 0.02 mg/mg topical ointment (2 sources) [...] Date Documented Da te Episodic/Chronic Anxiety disorders (10 sources) Anxiety disorder; Translations: [Anxiety disorder, unspecified] [...] Chronic Other nutritional; endocrine; and metabolic disorders (9 sources) Obese class II; Translations: [Obesity, unspecified] Onset: 10-28-2019 10-28-2019 Chronic Other upper respiratory infections (2 sources) Maxillary sinusitis; Translations: [Chronic maxillary sinusitis] 07-07-2023 Chronic Residual codes; unclassified (4 sources) Presence of other specified functional implants; Translations: [Presence of other specified functional implants] Onset: 03-20-2018 Chronic Residual codes; unclassified (11 sources) Past history of procedure; Translations: [Presence of other specified functional implants] Onset: 10-24-2011 10-05-2019 Chronic Past or Other Problems Problem Classification Problem Date Documented Date Episodic/Chronic Fracture of lower limb (20 sources) Closed pilon fracture; Translations: [Displaced pilon fracture of right tibia, initial encounter for closed fracture] Onset: 07-17-2016 10-28-2019 Episodic Genitourinary symptoms and ill-defined conditions (7 sources) Microscopic hematuria; Translations: [Other microscopic hematuria] Onset: 02-21-2011 12-06-2022 Episodic Immunizations and screening for infectious disease (1 source) Encounter for screening for human papillomavirus (HPV); Translations: [ENC SCREENING HUMAN PAPILLOMAVIRUS] Onset: 08-28-2021 Episodic Other aftercare (9 sources) Wound ; Translations: [Encounter for other specified surgical aftercare] Onset: 04-17-2018 10-05-2019 Episodic Other screening for suspected conditions (not mental disorders or infectious disease) (4 sources) Encounter for screening for malignant neoplasm of cervix; Translations: [ENC SCREENING MALIG NEOPLASM CERV] Onset: 08-27-2021 Episodic Residual codes; unclassified (9 sources) Dietary finding; Translations: [Other specified health status] Onset: 08-27-2017 10-05-2019 Episodic Results Test Name Value Interpretation Reference Range Facility No Panel Informationon 06-26 Human Chorionic Gonadotropin, Quant <1 mIU/mL [facility] Comment on above: 5-50 0.2-1 [id number] 0 1-2 OCOOP008-9,000 2-3 JEOWK338-44,000 3-4 WEEKS1,000-50,000 4-5 WEEKS10,000-100,000 5-6 WEEKS15,000-200,000 6-8 WEEKS10,000-100,000 2-3 MONTHS Serum or plasma progesterone measurement (mass/volume)on 06-08-2023 Progesterone [Mass/Vol] 20.7 ng/mL . [facility] Comment on above: Follicular phase 0.1 - 0.9 Luteal phase 1.8 - 23.9 Ovulation phase 0.1 - 12.0 First trimester 11.0 - 44.3 Second trimester 25.4 - 83.3 Third trimester 58.7 - 214.0 Postmenopausal 0.0 - 0.1Performed at: [facility] - [facility] [address] [id number] Director: Ino Dougherty PhD, Phone: [phone] Laboratory - Chemistry and C hemistry - challengeon 05-09-2023 Free T4 [Mass/Vol] 0.77 ng/dL 0.76-1.46 [facility] No Panel Informationon 05-08 Free Triiodothyronine 2.78 pg/mL 2.18-3.98 [facility] Serum or plasma progesterone measurement (mass/volume)on 05-09-2023 Progesterone [Mass/Vol] 19.3 ng/mL . [facility] Comment on above: Follicular phase 0.1 - 0.9 Luteal phase 1.8 - 23.9 Ovulation phase 0.1 - 12.0 First trimester 11.0 - 44.3 Second trimester 25.4 - 83.3 Third trimester 58.7 - 214.0 Postmenopausal 0.0 - 0.1Performed at: [facility] [id number] Director: Ino Dougherty PhD, Phone: [phone] BETA HCG, URINE (POC DEVICE) on 01-15-2023 Beta HCG ( test) Ql (U) Negative Negative [facility] Interpretation and review of laboratory results Normal [facility] Test performed at address of the patient encounter. [facility] CARDIAC RHYTHM (SCANNED)on 03-17-2022 [facility] CBC AND ELECTRONIC DIFFon Basophils (Bld) [#/Vol] 0.05 10*3/uL 0.00 - 0.15 K/uL [facility] Basophils/100 WBC (Bld) 0.5 % [facility] Differential cell count method Nom (Bld) Electronic Differential [facility] Eosinophils (Bld) [#/Vol] 0.12 10*3/uL 0. 00 - 0.42 K/uL [facility] Eosinophils/100 WBC (Bld) 1.2 % [facility] Erythrocyte distribution width (RBC) [Ratio] 13.1 % 10.8 - 14.9 % [facility] Hematocrit (Bld) [Volume fraction] 42.5 % 34.9 - 44.3 % [facility] Hemoglobin (Bld) [Mass/Vol] 14.3 g/dL 11.4 - 15.2 g/dL [facility] Immature granulocytes (Bld) [#/Vol] K/uL NINF - 0.08 K/uL [facility] Immature granulocytes/100 WBC (Bld) 0.3 % [facility] Lymphocytes (Bld) [#/Vol] 3.42 10*3/uL 1. 16 - 3.51 K/uL [facility] Lymphocytes/100 WBC (Bld) 32.9 % [facility] MCH (RBC) [Entitic mass] 31.1 pg 25. 9 - 33.9 pg [facility] MCHC (RBC) [Mass/Vol] 33.6 g/dL 31.4 - 35.9 g/dL [facility] MCV (RBC) [Entitic vol] 92.4 fL 79.6 - 97.7 fL [facility] Monocytes (Bld) [#/Vol] 0.62 10*3/uL 0.22 - 0.87 K/uL [facility] Monocytes/100 WBC (Bld) 6.0 % [facility] Neutrophils (Bld) [#/Vol] 6.14 10*3/uL 1. 64 - 7.28 K/uL [facility] Nucleated RBC/100 WBC (Bld) [Ratio] 0.0 % BANNERF [facility] Platelet mean volume (Bld) [Entitic vol] 10.8 fL 8.5 - 12.2 fL [facility] Platelets (Bld) [#/Vol] 326 10*3/uL 150 - 393 K/uL [facility] RBC (Bld) [#/Vol] 4.60 10*6/uL [facility] Segmented neutrophils/100 WBC (Bld) 59.1 % [facility] WBC (Bld) [#/Vol] 10.38 10*3/uL 3.99 - 11 .19 K/uL [facility] Basophils (Bld) [#/Vol] 0.05 10*3/uL Normal 0.00-0.15 [facility] Comment on above: Performed By: #### L [id number] #### [facility] (DEFAULT) [address] [place] [address] Basophils/100 WBC (Bld) 0.5 % Normal O [facility] Comment on above: Performed By: #### L [id number] #### [facility] (DEFAULT) [address] [place] [address] DIFF STATUS Electronic Differential Normal [facility] Comment on above: Performed By: #### L [id number] #### [facility] (DEFAULT) [address] [place] [address] Eosinophils (Bld) [#/Vol] 0.12 10*3/uL Normal 0.00-0.4 2 [facility] Comment on above: Performed By: #### L [id number] #### [facility] (DEFAULT) [address] [address] Eosinophils/100 WBC (Bld) 1.2 % Normal [facility] Comment on above: Performed By: #### L [id number] #### [facility] (DEFAULT) [address] [place] [address] Hematocrit (Bld) [Volume fraction] 42.5 % Normal 34.9-44.3 [facility] Comment on above: Performed By: #### L [id number] #### [facility] (DEFAULT) [address] [place] [address] Hemoglobin (Bld) [Mass/Vol] 14.3 g/dL Normal 11.4-15.2 [facility] Comment on above: Performed By: #### L [id number] #### [facility] (DEFAULT) [address] [place] [address] Immature Grans % 0.3 % Normal [facility] Comment on above: Performed By: #### L [id number] #### [facility] (DEFAULT) [address] [address] Immature Grans Absolute < Normal <=0.08 O [facility] Comment on above: Performed By: #### L [id number] #### [facility] (DEFAULT) [address] [address] Lymphocytes (Bld) [#/Vol] 3.42 10*3/uL Normal 1.16-3.5 1 [facility] Comment on above: Performed By: #### L [id number] #### [facility] (DEFAULT) [address] [place] [address] Lymphocytes/100 WBC (Bld) 32.9 % Normal [facility] Comment on above: Performed By: #### L [id number] #### [facility] (DEFAULT) [address] [place] [address] MCV (RBC) [Entitic vol] 92.4 fL Normal 79.6-97.7 O [facility] Comment on above: Performed By: #### L [id number] #### [facility] (DEFAULT) [address] [address] Mean Cell Hgb 31.1 pg Normal 25.9-33.9 [facility] Comment on above: Performed By: #### L [id number] #### [facility] (DEFAULT) [address] [address] Mean Cell Hgb Conc 33.6 g/dL Normal 31.4-35.9 [facility] Comment on above: Performed By: #### L [id number] #### [facility] (DEFAULT) [address] [address] Monocytes (Bld) [#/Vol] 0.62 10*3/uL Normal 0.22-0.87 [facility] Comment on above: Performed By: #### L [id number] #### [facility] (DEFAULT) [address] [address] Monocytes/100 WBC (Bld) 6.0 % Normal O [facility] Comment on above: Performed By: #### L [id number] #### [facility] (DEFAULT) [address] [address] Nucleated RBC 0.0 /100 WBC Normal <=0.2 [facility] Comment on above: Performed By: #### L [id number] #### [facility] (DEFAULT) [address] [place] [address] Platelet mean volume (Bld) [Entitic vol] 10.8 fL Normal 8.5-12.2 [facility] Comment on above: Performed By: #### L [id number] #### [facility] (DEFAULT) [address] [place] [address] Platelets (Bld) [#/Vol] 326 10*3/uL Normal 150-393 [facility] Comment on above: Performed By: #### L [id number] #### [facility] (DEFAULT) [address] [place] [address] RBC (Bld) [#/Vol] 4.60 10*6/uL Normal 3.91-5.04 [facility] Comment on above: Performed By: #### L [id number] #### [facility] (DEFAULT) [address] [place] [address] RBC Distribution 13.1 % Normal 10.8-14.9 [facility] Comment on above: Performed By: #### L [id number] #### [facility] (DEFAULT) [address] [place] [address] Segs + Bands Auto 59.1 % Normal [facility] Comment on above: Performed By: #### L [id number] #### [facility] (DEFAULT) [address] [place] [address] Segs + Bands,Absolute Auto 6.14 K/uL Normal 1.64-7.28 [facility] Comment on above: Performed By: #### L [id number] #### [facility] (DEFAULT) [address] [place] [address] WBC (Bld) [#/Vol] 10.38 10*3/uL Normal 3.99-11.19 [facility] Comment on above: Performed By: #### L [id number] #### [facility] (DEFAULT) [address] [place] [address] CMPN WITHOUT GLUCOSEon 01-09 Albumin [Mass/Vol] 4.9 g/dL Normal 3.5-5.0 [facility] Comment on above: Performed By: #### C MPNG #### [facility] (DEFAULT) [address] [place] [address] ALP [Catalytic activity/Vol] 35 U/L Normal 32-126 [facility] Comment on above: Performed By: #### C MPNG #### [facility] (DEFAULT) [address] [place] [place] [address] ALT [Catalytic activity/Vol] 19 U/L Normal 9-48 [facility] Comment on above: Performed By: #### C MPNG #### [facility] (DEFAULT) [address] [place] [address] Anion gap [Moles/Vol] 13 mmol/L Normal 7-17 [facility] Comment on above: Performed By: #### C MPNG #### [facility] (DEFAULT) [address] [place] [address] AST [Catalytic activity/Vol] 18 U/L Normal 10-39 [facility] Comment on above: Performed By: #### C MPNG #### [facility] (DEFAULT) [address] [place] [place] [address] Bilirubin [Mass/Vol] 0.3 mg/dL Normal <1.5 [facility] Comment on above: Performed By: #### C MPNG #### [facility] (DEFAULT) [address] [place] [place] [address] Calcium [Mass/Vol] 9.2 mg/dL Normal 8.6-10.5 [facility] Comment on above: Performed By: #### C MPNG #### [facility] (DEFAULT) [address] [place] [place] [address] Chloride [Moles/Vol] 102 mmol/L Normal 98-108 [facility] Comment on above: Performed By: #### C MPNG #### [facility] (DEFAULT) [address] [place] [address] CO2 [Moles/Vol] 26 mmol/L Normal 21-31 [facility] Comment on above: Performed By: #### C MPNG #### [facility] (DEFAULT) [address] [place] [address] Creatinine [Mass/Vol] 0.64 mg/dL Normal 0.50-1.20 [facility] Comment on above: Performed By: #### C MPNG #### [facility] (DEFAULT) [address] [place] [address] eGFR, CKD-EPI, Female > Normal >=60 [facility] Comment on above: Result Comment: Repo rted eGFR is based on the CKD-EPI 2020 equation using creatinine, age, and sex. Performed By: #### C MPNG #### [facility] (DEFAULT) [address] [place] [address] Potassium [Moles/Vol] 4.0 mmol/L Normal 3.5-5.0 [facility] Comment on above: Performed By: #### C MPNG #### [facility] (DEFAULT) [address] [place] [address] Protein [Mass/Vol] 7.9 g/dL Normal 6.4-8.3 [facility] Comment on above: Performed By: #### C MPNG #### [facility] (DEFAULT) [address] [place] [address] Sodium [Moles/Vol] 137 mmol/L Normal 135-145 [facility] Comment on above: Performed By: #### C MPNG #### [facility] (DEFAULT) [address] [place] [address] [address] Urea nitrogen [Mass/Vol] 12 mg/dL Normal 7-25 [facility] Comment on above: Performed By: #### C MPNG #### [facility] (DEFAULT) [address] [place] [address] Urea nitrogen/Creatinine [Mass ratio] 19 mg/mg Normal [facility] Comment on above: Performed By: #### C MPNG #### [facility] (DEFAULT) [address] [place] [id number] HCG ( test) Ql (U)O rdered By: Jamil Santos on 01-09-2023 Beta HCG ( test) Ql Negative Negative [facility] Interpretation and review of laboratory results Normal [facility] HCG QUALITATIVE, URINEon Beta HCG ( test) Ql (U) Negative Normal Negative [facility] Comment on above: Performed By: #### U HCG #### [facility] (DEFAULT) [address] [place] [address] LAMOTRIGINE LEVELon 01-10-20 23 Lamotrigine, S 4.3 mcg/mL Normal 3.0-15.0 [facility] Comment on above: Result Comment: ADDITIONAL INFORMATION This test was developed and its performance characteristics determined by [facility] in a manner consistent with CLIA requirements. This test has not been cleared or approved by the U.S. Food and Drug Administration. Test Performed by: [facility] - [place] [id number] Otologist: Juno Vega M.D. Ph.D.; CLIA# [id number] Performed By: #### Y LAMO #### [facility] (DEFAULT) [address] [place] [id number] PT,INR,PTTon 01-09-2023 aPTT Coag (PPP) [Time] 31.1 s [facility] INR Coag (Bld) [Relative time] 1.0 {INR} 0.9 - 1.1 [facility] Interpretation and review of laboratory results Normal [facility] PT Coag (PPP) [Time] 13.0 s [facility] aPTT Coag (Bld) [Time] 31.1 s Normal 24.0-34.3 [facility] Comment on above: Performed By: #### P TPTT #### [facility] (DEFAULT) [address] [place] [address] INR Coag (PPP) [Relative time] 1.0 {INR} Normal 0.9-1.1 [facility] Comment on above: Performed By: #### P TPTT #### [facility] (DEFAULT) [address] [place] [address]10 PT Coag (PPP) [Time] 13.0 s Normal 11.9-14.2 [facility] Comment on above: Performed By: #### P TPTT #### [facility] (DEFAULT) [address] [place] [address] SCREEN: MRSA/MSSAOrdered By: Alexandra Slater on 01-09-2023 Interpretation and review of laboratory results Abnormal [facility] Methicillin Resistant S. Aureus By Pcr Negative Negative [facility] Staphylococcus Aureus By Pcr Positive Abnormal Negative [facility] This test was performed using a real [...] by the Clinical Microbiology Laboratory at [facility]. It has not been cleared or approved by the FDA.The laboratory is regulated under CLIA as qualified to perform high-complexity testing. This test is used for clinical purposes. It should not be regarded as investigational or for research. [facility] SCREEN: MRSA/MSSAon 01-10-20 Methicillin Resistant S. Aureus By Pcr Negative Normal Negative [facility] Comment on above: Order Comment: This [...] by the Clinical Microbiology Laboratory at [facility]. It has not been cleared or approved by the FDA.The laboratory is regulated under CLIA as qualified to perform high-complexity testing. This test is used for clinical purposes. It should not be regarded as investigational or for research. Performed By: #### S CRSB #### U [facility] (DEFAULT) [address] [address] Staphylococcus Aureus By Pcr Positive Abnormal Negative [facility] Comment on above: Order Comment: This [...] by the Clinical Microbiology Laboratory at [facility]. It has not been cleared or approved by the FDA.The laboratory is regulated under CLIA as qualified to perform high-complexity testing. This test is used for clinical purposes. It should not be regarded as investigational or for research. Performed By: #### S CRSB #### [facility] (DEFAULT) [address] [place] [address] VITAMIN D (25-HYDROXY,TOTAL) on 01-09-2023 25-OH Vitamin D Total 35.2 ng/mL Normal 30.0-100.0 [facility] Comment on above: Order Comment: Vitam in D values have been shown to be falsely decreased in lipemic samples and should be interpreted with caution. Result Comment: <10 Deficiency 10-29 Insufficiency 30-100 Optimal Level >100 Possible Toxicity Performed By: #### D 25OH #### [facility] (DEFAULT) [address] [address] XR Cervical and thoracic and lumbar spine [...] IMPRESSION: Intact vagus nerve stimulator as described. [facility] Radiology Study observation (narrative) [facility] XR Cervical and thoracic and lumbar spine ViewsOrdered By: Alice Crespo on 01-09-2023 [facility] Work Phone: XR STIMULATOR/INTRATHECAL PU MP CERVICAL/THORACIC/LUMBARon [...] Intact vagus nerve stimulator as described. Normal [facility] PROGESTERONEon 05-24-2022 Progesterone 5.5 ng/mL Normal [facility] Comment on above: Result Comment: Foll icular phase 0.1 - 0.9 Luteal phase 1.8 - 23.9 Ovulation phase 0.1 - 12.0 First trimester 11.0 - 44.3 Second trimester 25.4 - 83.3 Third trimester 58.7 - 214.0 Postmenopausal 0.0 - 0.1 Performed By: #### P DANIEL #### [facility] [address] [place] [address] Dr. Nicol Oswald LAMOTRIGINEon 05-02-2022 Lamotrigine, Serum 4.7 ug/mL Normal 2.0-20.0 [facility] Comment on above: Result Comment: Dete ction Limit = 1.0 Performed By: #### P DANIEL #### [facility] [address] [place] [address] Dr. Nicol Oswald CBC AUTO DIFFon 04-30-2022 BASO # 0.0 103/ul Normal 0.0-0.1 [facility] Comment on above: Performed By: #### C BC #### [facility] [address] [place] [address] Dr. Nicol Oswald Basophils/100 WBC (Bld) 0.4 % Normal 0.2-2.0 [facility] Comment on above: Performed By: #### C BC #### [facility] [address] [place] [address] Dr. Nicol Oswald EO # 0.2 103/ul Normal 0.0-0.7 [facility] Comment on above: Performed By: #### C BC #### [facility] [address] [place] [address] Dr. Nicol Oswald Eosinophils/100 WBC (Bld) 1.9 % Normal 0.9-7.0 [facility] Comment on above: Performed By: #### C BC #### [facility] [address] [place] [address] Dr. Nicol Oswald Erythrocyte distribution width (RBC) [Ratio] 12.8 % Normal 11.0-15.0 [facility] Comment on above: Performed By: #### C BC #### [facility] [address] [place] [address] Dr. Nicol Oswald Hematocrit (Bld) [Volume fraction] 40.4 % Normal 36.0-48.0 [facility] Comment on above: Performed By: #### C BC #### [facility] [address] [place] [address] Dr. Nicol Oswald Hemoglobin (Bld) [Mass/Vol] 13.6 g/dL Normal 12.0-16.0 [facility] Comment on above: Performed By: #### C BC #### [facility] [address] [place] [address] Dr. Nicol Oswald IG # 0.03 10e3/ul Normal 0.00-0.03 [facility] Comment on above: Performed By: #### C BC #### [facility] [address] [place] [address] Dr. Nicol Oswald IG % 0.4 % Normal 0.0-0.5 [facility] Comment on above: Performed By: #### C BC #### [facility] [address] [place] [address] Dr. Nicol Oswald LYMPH # 3.1 103/ul Normal 1.2-3.8 [facility] Comment on above: Performed By: #### C BC #### [facility] [address] [place] [address] Dr. Nicol Oswald Lymphocytes/100 WBC (Bld) 36.4 % Normal 20.5-60.0 [facility] Comment on above: Performed By: #### C BC #### [facility] [address] [place] [address] Dr. Nicol Oswald MANUAL DIFF REQ NO Normal [facility] Comment on above: Performed By: #### C BC #### [facility] [address] [place] [address] Dr. Nicol Oswald MCH (RBC) [Entitic mass] 31.0 pg Normal 26.7-34.0 [facility] Comment on above: Performed By: #### C BC #### [facility] [address] [place] [address] Dr. Nicol Oswald MCHC (RBC) [Mass/Vol] 33.7 g/dL Normal 29.9-35.2 [facility] Comment on above: Performed By: #### C BC #### [facility] [address] [place] [address] Dr. Nicol Oswald MCV (RBC) [Entitic vol] 92.0 fL Normal 81.0-99.0 [facility] Comment on above: Performed By: #### C BC #### [facility] [address] [place] [address] Dr. Nicol Oswald MONO # 0.7 103/ul Normal 0.3-0.8 [facility] Comment on above: Performed By: #### C BC #### [facility] [address] [place] [address] Dr. Nicol Oswald Monocytes/100 WBC (Bld) 7.7 % Normal 1.7-12.0 [facility] Comment on above: Performed By: #### C BC #### [facility] [address] [place] [address] Dr. Nicol Oswald NEUT # 4.5 103/ul Normal 1.4-6.5 [facility] Comment on above: Performed By: #### C BC #### [facility] [address] [place] [address] Dr. Nicol Oswald Neutrophils/100 WBC (Bld) 53.2 % Normal 43.0-75.0 [facility] Comment on above: Performed By: #### C BC #### [facility] [address] [place] [address] Dr. Nicol Oswald Platelet mean volume (Bld) [Entitic vol] 11.0 fL Normal 9.5-13.5 [facility] Comment on above: Performed By: #### C BC #### [facility] [address] [place] [address] Dr. Nicol Oswald PLT 282 103/ul Normal 150-450 [facility] Comment on above: Performed By: #### C BC #### [facility] [address] [place] [address] Dr. Nicol Oswald RBC 4.39 106/ul Normal 4.20-5.40 [facility] Comment on above: Performed By: #### C BC #### [facility] [address] [place] [address] Dr. Nicol Oswald WBC 8.4 103/ul Normal 4.0-11.0 [facility] Comment on above: Performed By: #### C BC #### [facility] [address] [place] [address] Dr. Nicol Oswald LIVER PROFILEon 04-30-2022 Albumin [Mass/Vol] 4.1 g/dL Normal 3.4-5.0 [facility] Comment on above: Performed By: #### P DANIEL #### [facility] [address] [place] [address] Dr. Nicol Oswald Albumin/Globulin [Mass ratio] 1.2 {ratio} Normal [facility] Comment on above: Performed By: #### P DANIEL #### [facility] [address] [place] [address] Dr. Nicol Oswald ALP [Catalytic activity/Vol] 52 U/L Normal 46-116 [facility] Comment on above: Performed By: #### P DANIEL #### [facility] [address] [place] [address] Dr. Nicol Oswald ALT [Catalytic activity/Vol] 23 U/L Normal 14-59 [facility] Comment on above: Performed By: #### P DANIEL #### [facility] [address] [place] [address] Dr. Nicol Oswald AST [Catalytic activity/Vol] 17 U/L Normal 15-37 [facility] Comment on above: Performed By: #### P ROGES #### [facility] [address] [place] [address] [address] Nicol Oswald BILI, CONJUGATED 0.1 mg/dL Normal 0.0-0.[address] [facility] Comment on above: Performed By: #### P ROGES #### [facility] [address] [place] [address] Dr. Nicol Oswald Bilirubin [Mass/Vol] 0.2 mg/dL Normal 0.2-1.0 [facility] Comment on above: Performed By: #### P ROGES #### [facility] [address] [place] [address] Dr. Nicol Oswald Globulin (S) [Mass/Vol] 3.4 g/dL Normal [facility] Comment on above: Performed By: #### P ROGES #### [facility] [address] [place] [address] Dr. Nicol Oswald Protein [Mass/Vol] 7.5 g/dL Normal 6.4-8.2 [facility] Comment on above: Performed By: #### P ROGES #### [facility] [address] [place] [address] Dr. Nicol Oswald PROF CHEM 8 (BAS METB)on Anion gap [Moles/Vol] 8.5 mmol/L Normal [facility] Comment on above: Performed By: #### P ROGES #### [facility] [address] [place] [address] Dr. Nicol Oswald Calcium [Mass/Vol] 9.4 mg/dL Normal 8.5-10.1 [facility] Comment on above: Performed By: #### P ROGES #### [facility] [address] [place] [address] Dr. Nicol Oswald Chloride [Moles/Vol] 102 mmol/L Normal 98-107 [facility] Comment on above: Performed By: #### P ROGES #### [facility] [address] [place] [address] Dr. Nicol Oswald CO2 [Moles/Vol] 30.4 mmol/L Normal 21.0-32.[address] [facility] Comment on above: Performed By: #### P ROGES #### [facility] [address] [place] [address] [address] Nicol Oswald Creatinine [Mass/Vol] 0.57 mg/dL Normal 0.55-1.02 [facility] Comment on above: Performed By: #### P ROGES #### [facility] [address] [place] [address] [address] Nicol Oswald EGFR-AF NAMIBIAN >60 Normal >=[address] [facility] Comment on above: Performed By: #### P ROGES #### [facility] [address] [place] [address] [address] Nicol Oswald EGFR-NON AF NAMIBIAN >60 Normal >=60 [facility] Comment on above: Performed By: #### P ROGES #### [facility] [address] [place] [address] Dr. Nicol Oswald Glucose [Mass/Vol] 89 mg/dL Normal 74-106 [facility] Comment on above: Performed By: #### P ROGES #### [facility] [address] [place] [address] Dr. Nicol Oswald Potassium [Moles/Vol] 3.9 mmol/L Normal 3.5-5.1 [facility] Comment on above: Performed By: #### P ROGES #### [facility] [address] [place] [address] Dr. Nicol Oswald Sodium [Moles/Vol] 137 mmol/L Normal 136-145 [facility] Comment on above: Performed By: #### P ROGES #### [facility] [address] [place] [address] [address] Nicol Oswald Urea nitrogen [Mass/Vol] 10.0 mg/dL Normal 7.0-18.0 [facility] Comment on above: Performed By: #### P ROGES #### [facility] [address] [place] [address] Dr. Nicol Oswald Urea nitrogen/Creatinine [Mass ratio] 17.5 mg/mg Normal [facility] Comment on above: Performed By: #### P DANIEL #### [facility] [address] [place], [place] [address] Dr. Nicol Oswald ESTROGENon 04-19-2022 Estrogens, Total 124 pg/mL Normal [facility] Comment on above: Result Comment: Prep ubertal < 40 Female Cycle: 1-10 Days 16 - 328 11-20 Days 34 - 501 21-30 Days 48 - 350 Post-Menopausal 40 - 244 Performed By: #### Elli ESPINAL #### [facility] [address] [place] [address] [address] Nicol Oswald DHEA SERUMon 04-18-2022 Dehydroepiandrosterone (DHEA) 371 ng/dL Normal 31-701 [facility] Comment on above: [...] SANCHEZ #### [facility] [address] [place] [address] [address] Nicol Oswald DHEA-SULFATEon 04-16-2022 DHEA-Sulfate 371.0 ug/dL Normal 84.8-378.0 [facility] Comment on above: Performed By: #### Tenzin SANCHEZ #### [facility] [address] [place] [address] [address] Nciol Oswald FSHon 04-16-2022 FSH 5.6 mIU/mL Normal [facility] Comment on above: Result Comment: Adul t Female: Follicular phase 3.5 - 12.5 Ovulation phase 4.7 - 21.5 Luteal phase 1.7 - 7.7 Postmenopausal 25.8 - 134.8 Performed By: #### Tenzin SANCHEZ #### [facility] [address] [place] [address] Dr. Nicol Oswald LUTEINIZING HORMONE (LH)on 0 04-16-2022 LH 12.9 mIU/mL Normal [facility] Comment on above: Result Comment: Adul t Female: Follicular phase 2.4 - 12.6 Ovulation phase 14.0 - 95.6 Luteal phase 1.0 - 11.4 Postmenopausal 7.7 - 58.5 Performed By: #### P DANIEL #### [facility] [address] [place] [address] Dr. Nicol Oswald PROGESTERONEon 04-16-2022 Progesterone 0.2 ng/mL Normal [facility] Comment on above: Result Comment: Foll icular phase 0.1 - 0.9 Luteal phase 1.8 - 23.9 Ovulation phase 0.1 - 12.0 First trimester 11.0 - 44.3 Second trimester 25.4 - 83.3 Third trimester 58.7 - 214.0 Postmenopausal 0.0 - 0.1 Performed By: #### P DANIEL #### [facility] [address] [place] [address] Dr. Nicol Oswald PROLACTINon 04-16-2022 Prolactin 7.1 ng/mL Normal 4.8-23.3 [facility] Comment on above: Performed By: #### P ROLAC #### [facility] [address] [place] [address] Dr. Nicol Oswald US PELVIS AND TRANSVAGon [...] 04-15-2022 BASO # 0.0 103/ul Normal 0.0-0.1 [facility] Comment on above: Performed By: #### C BC #### [facility] [address] [place] [address] [address] Nicol Oswald Basophils/100 WBC (Bld) 0.5 % Normal 0.2-2.0 [facility] Comment on above: Performed By: #### C BC #### [facility] [address] [place] [address] [address] Nicol Oswald EO # 0.2 103/ul Normal 0.0-0.7 [facility] Comment on above: Performed By: #### C BC #### [facility] [address] [place] [address] [address] Nicol Oswald Eosinophils/100 WBC (Bld) 2.1 % Normal 0.9-7.0 [facility] Comment on above: Performed By: #### C BC #### [facility] [address] [place] [address] [address] Nicol Oswald Erythrocyte distribution width (RBC) [Ratio] 12.5 % Normal 11.0-15.0 [facility] Comment on above: Performed By: #### C BC #### [facility] [address] [place] [address] [address] Nicol Oswald Hematocrit (Bld) [Volume fraction] 44.7 % Normal 36.0-48.0 [facility] Comment on above: Performed By: #### C BC #### [facility] [address] [place] [address] [address] Nicol Oswald Hemoglobin (Bld) [Mass/Vol] 14.3 g/dL Normal 12.0-16.0 [facility] Comment on above: Performed By: #### C BC #### [facility] [address] [place] [address] [address] Nicol Oswald IG # 0.01 10e3/ul Normal 0.00-0.03 [facility] Comment on above: Performed By: #### C BC #### [facility] [address] [place] [address] Dr. Nicol Oswald IG % 0.1 % Normal 0.0-0.5 [facility] Comment on above: Performed By: #### C BC #### [facility] [address] [place] [address] Dr. Nicol Oswald LYMPH # 2.0 103/ul Normal 1.2-3.8 [facility] Comment on above: Performed By: #### C BC #### [facility] [address] [place] [address] Dr. Nicol Oswald Lymphocytes/100 WBC (Bld) 26.0 % Normal 20.5-60.0 [facility] Comment on above: Performed By: #### C BC #### [facility] [address] [place] [address] Dr. Nicol Oswald MANUAL DIFF REQ NO Normal [facility] Comment on above: Performed By: #### C BC #### [facility] [address] [place] [address] Dr. Nicol Oswald MCH (RBC) [Entitic mass] 30.8 pg Normal 26.7-34.0 [facility] Comment on above: Performed By: #### C BC #### [facility] [address] [place] [address] Dr. Nicol Oswald MCHC (RBC) [Mass/Vol] 32.0 g/dL Normal 29.9-35.2 [facility] Comment on above: Performed By: #### C BC #### [facility] [address] [place] [address] Dr. Nicol Oswald MCV (RBC) [Entitic vol] 96.3 fL Normal 81.0-99.0 [facility] Comment on above: Performed By: #### C BC #### [facility] [address] [place] [address] Dr. Nicol Oswald MONO # 0.6 103/ul Normal 0.3-0.8 [facility] Comment on above: Performed By: #### C BC #### [facility] [address] [place] [address] Dr. Nicol Oswald Monocytes/100 WBC (Bld) 7.3 % Normal 1.7-12.0 [facility] Comment on above: Performed By: #### C BC #### [facility] [address] [place] [address] Dr. Nicol Oswald NEUT # 4.9 103/ul Normal 1.4-6.5 [facility] Comment on above: Performed By: #### C BC #### [facility] [address] [place] [address] Dr. Nicol Oswald Neutrophils/100 WBC (Bld) 64.0 % Normal 43.0-75.0 [facility] Comment on above: Performed By: #### C BC #### [facility] [address] [place] [address] Dr. Nicol Oswald Platelet mean volume (Bld) [Entitic vol] 11.3 fL Normal 9.5-13.5 [facility] Comment on above: Performed By: #### C BC #### [facility] [address] [place] [address] Dr. Nicol Oswald PLT 302 103/ul Normal 150-450 [facility] Comment on above: Performed By: #### C BC #### [facility] [address] [place] [address] Dr. Nicol Oswald RBC 4.64 106/ul Normal 4.20-5.40 [facility] Comment on above: Performed By: #### C BC #### [facility] [address] [place] [address] Dr. Nicol Oswald WBC 7.7 103/ul Normal 4.0-11.0 [facility] Comment on above: Performed By: #### C BC #### [facility] [address] [place] [address] Dr. Nicol Oswald FREE T4on 04-15-2022 Free T4 [Mass/Vol] 0.80 ng/dL Normal 0.76-1.46 [facility] Comment on above: Performed By: #### F T4 #### [facility] [address] [place] [address] Dr. Nicol Oswald GLYCOHEMOGLOBIN A1Con 2022 ADA RECOMMENDATION SEE BELOW Normal [facility] Comment on above: Result Comment: ADA RECOMMENDED LIMIT 4.0 - 6.0 ADA THERAPEUTIC TARGET < 7.0 ACTION SUGGESTED > 7.0 Performed By: #### A 1C #### [facility] [address] [address] [address] Nicol Oswald Glucose [Mass/Vol] 114 mg/dL Normal [facility] Comment on above: Performed By: #### A 1C #### [facility] [address] [address] [address] Nicol Oswald HbA1c (Bld) [Mass fraction] 5.6 % Normal 4.5-6.2 [facility] Comment on above: Performed By: #### A 1C #### [facility] [address] [place] [address] Dr. Nicol Oswald PREG QUANT HCGon 04-15-2022 HCG QUANT <1 Normal [facility] Comment on above: Performed By: #### P REGQNT, TSH #### [facility] [address] [place] [address] Dr. Nicol Oswald HCG RANGE SEE BELOW Normal [facility] Comment on above: Result Comment: 5-50 0.2-1 WEEK 50-500 1-2 WEEKS 100-5,000 2-3 WEEKS 500-10,000 3-4 WEEKS 1,000-50,000 4-5 WEEKS 10,000-100,000 5-6 WEEKS 15,000-200,000 6-8 WEEKS 10,000-100,000 2-3 MONTHS Performed By: #### P REGQNT, TSH #### [facility] [address] [place] [address] Dr. Nicol Oswald TSHon 04-15-2022 TSH 1.312 uIU/mL Normal 0.358-3.740 [facility] Comment on above: Performed By: #### P REGQNT, TSH #### [facility] [address] [place] [address] Dr. Nicol Oswald PAP ACOG PANEL 2: 21 to 29on 08-31-2021 . . Normal [facility] [facility] Comment on above: Performed By: #### P ROGES #### [facility] [address] [address] [address] Nicol Oswald Age Gdln ACOG Testing 21-29 Normal [facility] Comment on above: Performed By: #### P ROGES #### [facility] [address] [address] [address] Nicol Oswald DIAGNOSIS: Comment Normal [facility] Comment on above: Result Comment: NEGA TIVE FOR INTRAEPITHELIAL LESION OR MALIGNANCY. THIS SPECIMEN WAS RESCREENED PART OF OUR KNOCKER OFF PROGRAM. Performed By: #### P ROGES #### [facility] [address] [address] [address] Nicol Oswald Methodology: Comment Normal [facility] Comment on above: Result Comment: This liquid based ThinPrep(R) pap test was screened with the use of an image guided system. Performed By: #### P ROGES #### [facility] [address] [place] [address] Dr. Nicol Oswald Note: Comment Normal [facility] Comment on above: Result Comment: The Pap [...] ROGES #### [facility] [address] [address] [address] Nicol Oswald Performed by: Comment Normal [facility] Comment on above: Result Comment: Mireille Blanco, [employer] ([employer]) Performed By: #### P ROGES #### [facility] [address] [address] [address] Nicol Oswald QC reviewed by: Comment Normal [facility] Comment on above: Result Comment: Tahira Roque, [employer] ([employer]) Performed By: #### P ROGES #### [facility] [address] [address] [address] Nicol Oswald Reflex Criteria: Comment Normal [facility] Comment on above: Result Comment: The HPV DNA reflex criteria were not met with this specimen result therefore, no HPV testing was performed. . Performed By: #### Tenzin SANCHEZ #### [facility] [address] [place] [address] Dr. Nicol Oswald Specimen adequacy: Comment Normal [facility] Comment on above: Result Comment: Sati sfactory for evaluation. Endocervical and/or squamous metaplastic cells (endocervical component) are present. Performed By: #### P DANIEL #### [facility] [address] [address] [address] Nicol Oswald CBC Auto Diff Reflex Manualo n 02-18-2019 Automated Absolute Neutrophil 5.73 10*3/mm3 Normal [facility] Comment on above: Result Comment: Auto mated Absolute Neutrophil Count (ANC) is directly measured using a hematology instrument. ANC determined from manual differential cell count may differ. No [facility] reference range has been validated for this assay. Performed By: #### C D #### [place] [address] Basophil 0.5 % Normal 0.0-1.0 [facility] Comment on above: Performed By: #### C D #### [place] [address] Differential Type Automated Normal [facility] Comment on above: Performed By: #### C D #### [place] [address] Eosinophil 1.6 % Normal 1.0-4.0 [facility] Comment on above: Performed By: #### C D #### [place] [address] Erythrocyte distribution width (RBC) [Ratio] 13.4 % Normal 10-14.1 [facility] Comment on above: Performed By: #### C D #### [place] [address] Lymphocyte 22.6 % Low 24.0-44.0 [facility] Comment on above: Performed By: #### C D #### [place] [address] MCH (RBC) [Entitic mass] 30.7 pg Normal 26-34 [facility] Comment on above: Performed By: #### C D #### Performed at [address] [address] MCHC (RBC) [Mass/Vol] 33.2 % Normal 31.0-37.0 [facility] Comment on above: Performed By: #### C D #### Performed at [address] [address] MCV (RBC) [Entitic vol] 92.4 fL Normal 80-100 [facility] Comment on above: Performed By: #### C D #### Performed at [address] [address] Monocyte 8.2 % High 1.0-7.0 [facility] Comment on above: Performed By: #### C D #### Performed at [address] [address] Neutrophil 67.1 % Normal 41.0-77.0 [facility] Comment on above: Performed By: #### C D #### Performed at [address] [address] Platelet mean volume (Bld) [Entitic vol] 11.5 fL Normal 9.3-13.0 [facility] Comment on above: Performed By: #### C D #### Performed at [address] [address] Platelets (Bld) [#/Vol] 268 10*3/uL Normal 140-440 [facility] Comment on above: Performed By: #### C D #### Performed at [address] [address] RBC (Bld) [#/Vol] 4.60 10*6/uL Normal 4.0-5.2 [facility] Comment on above: Performed By: #### C D #### Performed at [address] [address] WBC (Bld) [#/Vol] 8.6 10*3/uL Normal 4.5-11 [facility] Comment on above: Performed By: #### C D #### Performed at [facility], [address] [place] [address] Comprehensive Metabolic Pane mehran 02-18-2019 Albumin [Mass/Vol] 4.7 g/dL Normal 3.4-5.2 [facility] ALP [Catalytic activity/Vol] 47 U/L Low 50-136 [facility] ALT [Catalytic activity/Vol] 32 U/L Normal <40 [facility] AST [Catalytic activity/Vol] 29 U/L Normal 15-50 [facility] Bilirubin Ql (U) 0.2 mg/dL Normal 0.1-1.0 [facility] Calcium [Mass/Vol] 9.8 mg/dL Normal 8-10.5 [facility] Chloride [Moles/Vol] 104 mmol/L Normal 95-106 [facility] CO2 [Moles/Vol] 25 mmol/L Normal 24-35 [facility] Creatinine [Mass/Vol] 0.52 mg/dL Normal 0.5-1 [facility] Glucose [Mass/Vol] 135 mg/dL High 60-115 [facility] Potassium [Moles/Vol] 4.5 mmol/L Normal 3.7-5.3 [facility] Protein [Mass/Vol] 8.0 g/dL Normal 6.4-8.4 [facility] Sodium [Moles/Vol] 140 mmol/L Normal 135-145 [facility] Urea nitrogen [Mass/Vol] 15 mg/dL Normal 5-18 [facility] Valproic Acidon 02-18-2019 Valproic Acid 47.1 ug/mL Low 50.0-100.0 [facility] PAP, THIN PREP WITH IMAGINGo n 06-29-2018 PAP, THIN PREP WITH IMAGING Normal [facility] Comment on above: Result Comment: INTE RPRETATION Thin Prep Image-Guided Pap Test (Cervical/Endocervical) NEGATIVE FOR INTRAEPITHELIAL LESION /MALIGNANCY Satisfactory for evaluation (Endocervical/transformation zone component present) [facility]/06/27/2018 The Pap test is a screening test, [...] 05/18/18 ICD-CM DIAGNOSIS CODE(S) Z01.419 [facility] Coordinator Exam (general) (routine) W/o Abn Findings * EFFECTIVE 06/08/2018 * * CLINICAL CHEMISTRY PLATFORM CHANGES ARE ASSOCIATED WITH * * REFERENCE RANGE CHANGES FOR A NUMBER OF ANALYTES. PLEASE * * REVIEW REFERENCE INTERVALS CAREFULLY * [facility] [address] [place] [address] CLIA No. [id number] CAP Accreditation No. [id number] Dope Maintenance Worker: Johnson Garland M.D. [facility] Accession Number: [id number] Performed By: #### P L PAP W/IMAGE #### [address] [address] [address] Nucleic-Acid Probe-Endoce rvical Swabon 06-24-2018 CT Nucleic-Acid Probe-Endocervical Swab Negative Normal NEGATIVE [facility] Comment on above: Performed By: #### G C Amp Endocerv, CT Amp Endocerv #### [address] [address] Age at specimen collection = Normal [facility] Comment on above: Performed By: #### G C Amp Endocerv, CT Amp Endocerv #### [facility] [address] [place], [place] [id number] Performed By: #### P L PAP W/IMAGE #### [facility] [address] [place], [place] [id number] GC Nucleic-Acid Probe-Endoce rvical Swabon 06-24-2018 GC Nucleic-Acid Probe-Endocervical Swab Negative Normal NEGATIVE [facility] Comment on above: Performed By: #### G C Amp Endocerv, CT Amp Endocerv #### [facility] [address] [place], [place] [address] Platelet Functionon 03-24-19 19 Collagen/ADP 148 sec High 67-112 [facility] Comment on above: Performed By: #### P FA #### [facility] [address] [place] [address] Collagen/EPI 228 sec High 85-172 [facility] Comment on above: Performed By: #### P FA #### [facility] [address] [place] [address] Interpretation Abnormal platelet function. Normal [facility] Comment on above: Result Comment: Comm [...] established. Performed By: #### P FA #### [facility] [address] [place] [address] XR ANKLE RIGHT STANDARDon XR ANKLE RIGHT STANDARD Radiology exam i s complete. No Radiologist dictation. Please follow up with ordering provider. Final result Normal [facility] Vital Signs Date Time Vital Sign Value Performing Clinician Facility 08-21-2023 14:43-0400 Body height 161.3 cm Cori Maturu V, DO Work Phone: [facility] Comment on above: verbal 08-21-2023 14:43-0400 Body mass index (BMI) [Ratio] 34.59 kg/m2 Cori Maturu V, DO Work Phone: [facility] 08-21-2023 14:43-0400 Body temperature 98.29 [degF] Cori Maturu V, DO Work Phone: [facility] 08-21-2023 14:43-0400 Body weight 89.99 kg Cori Maturu V, DO Work Phone: [facility] 08-21-2023 14:43-0400 Diastolic blood pressure 76 mm[Hg] Cori Maturu V, DO Work Phone: [facility] 08-21-2023 14:43-0400 Heart rate 88 /min Cori Maturu V, DO Work Phone: [facility] 08-21-2023 14:43-0400 Systolic blood pressure 130 mm[Hg] Cori Maturu V, DO Work Phone: [facility] 07-07-2023 14:37-0400 Body height 170.18 cm [facility] 07-07-2023 14:37-0400 Body mass index (BMI) [Ratio] 30.8 kg/m2 [facility] 07-07-2023 14:37-0400 Body weight 89.35 kg [facility] 07-07-2023 14:37-0400 Diastolic blood pressure 78 mm[Hg] [facility] 07-07-2023 14:37-0400 Heart rate 81 /min [facility] 07-07-2023 14:37-0400 SaO2% (BldA) [Mass fraction] 98 % [facility] 07-07-2023 14:37-0400 Systolic blood pressure 112 mm[Hg] [facility] 05-28-2023 14:04-0400 Body height 161.3 cm Riana Chinchilla STRAIGHT EDGER[employer] Work Phone: [facility] 05-28-2023 14:04-0400 Body mass index (BMI) [Ratio] 34.09 kg/m2 Riana Raoul [employer]AIGHT [employer]GER[employer] Work Phone: [facility] 05-28-2023 14:04-0400 Body temperature 98.01 [degF] Riana Chinchilla STRAIGHT [employer]GER[employer] Work Phone: [facility] 05-28-2023 14:04-0400 Body weight 88.68 kg Riana Chinchilla STRAIGHT [employer]GER[employer] Work Phone: [facility] 05-28-2023 14:04-0400 Diastolic blood pressure 74 mm[Hg] Riana Chinchilla STRAIGHT [employer] Work Phone: [facility] 05-28-2023 14:04-0400 Heart rate 92 /min Riana Chinchilla STRAIGHT [employer] Work Phone: [facility] 05-28-2023 14:04-0400 Systolic blood pressure 122 mm[Hg] Riana Chinchilla [employer]AIGHT [employer] Work Phone: [facility] 04-22-2023 13:04-0500 Body mass index (BMI) [Ratio] 34 kg/m2 Donovan Kimmie DO Work Phone: [facility] 04-22-2023 13:04-0500 Body weight 88.45 kg Donovan Kimmie DO Work Phone: [facility] 04-22-2023 13:04-0500 Diastolic blood pressure 78 mm[Hg] Donovan Kimmie DO Work Phone: [facility] 04-22-2023 13:04-0500 Systolic blood pressure 120 mm[Hg] Donovan Kimmie DO Work Phone: [facility] 02-14-2023 15:48-0500 Body height 161.3 cm Riana De La Cruzley STRAIGHT [employer] Work Phone: [facility] Comment on above: verbal 02-14-2023 15:48-0500 Body mass index (BMI) [Ratio] 34.82 kg/m2 Riana Raoul [employer] Work Phone: [facility] 02-14-2023 15:48-0500 Body temperature 97.9 [degF] Riana Raoul [employer]AIGHT [employer] Work Phone: [facility] 02-14-2023 15:48-0500 Body weight 90.58 kg Riana Raoul STRAIGHT [employer] Work Phone: [facility] 02-14-2023 15:48-0500 Diastolic blood pressure 79 mm[Hg] Crystal Raoul STRAIGHT [employer] Work Phone: [facility] 02-14-2023 15:48-0500 Heart rate 107 /min Riana De La Cruzley STRAIGHT [employer]GER[employer] Work Phone: [facility] 02-14-2023 15:48-0500 Systolic blood pressure 133 mm[Hg] Riana Raoul STRAIGHT [employer] Work Phone: [facility] 01-15-2023 13:50-0500 Body temperature 97.5 [degF] Evy Verma MD Work Phone: [facility] 01-15-2023 13:50-0500 Diastolic blood pressure 79 mm[Hg] Evy Verma MD Work Phone: [facility] 01-15-2023 13:50-0500 Heart rate 78 /min Evy Verma MD Work Phone: [facility] 01-15-2023 13:50-0500 Respiratory rate 16 /min Evy Verma MD Work Phone: [facility] 11-08-2023 13:50-0500 SaO2% (BldA) [Mass fraction] 98 % Evy Verma MD Work Phone: [facility] 01-15-2023 13:50-0500 Systolic blood pressure 117 mm[Hg] Evy Verma MD Work Phone: [facility] 01-15-2023 07:50-0500 Body height 161.3 cm Evy Verma MD Work Phone: [facility] 01-15-2023 07:50-0500 Body mass index (BMI) [Ratio] 34.37 kg/m2 Evy Verma MD Work Phone: [facility] 01-15-2023 07:50-0500 Body weight 89.4 kg Evy Verma MD Work Phone: [facility] 01-09-2023 08:39-0400 Body height 161.3 cm Esau Hernandez PAC Work Phone: [facility] 01-09-2023 08:39-0400 Body mass index (BMI) [Ratio] 33.65 kg/m2 Esau Hernandez PAC Work Phone: [phone] [address] 01-09-2023 08:39-0400 Body temperature 98.49 [degF] Esau Hernandez PAC Work Phone: [facility] 01-09-2023 08:39-0400 Body weight 87.54 kg Esau Hernandez PAC Work Phone: [facility] 01-09-2023 08:39-0400 Diastolic blood pressure 80 mm[Hg] Esau Hernandez PAC Work Phone: [facility] 01-09-2023 08:39-0400 Heart rate 81 /min Esau Hernandez PAC Work Phone: [facility] 01-09-2023 08:39-0400 Respiratory rate 18 /min Esau Hernandez PAC Work Phone: [facility] 01-09-2023 08:39-0400 SaO2% (BldA) [Mass fraction] 98 % Esau Hernandez PAC Work Phone: [facility] 01-09-2023 08:39-0400 Systolic blood pressure 134 mm[Hg] Esau Hernandez PAC Work Phone: [facility] 12-10-2022 10:53-0400 Body height 160 cm Evy Verma MD Work Phone: [facility] 12-10-2022 10:53-0400 Body mass index (BMI) [Ratio] 34.19 kg/m2 Evy Verma MD Work Phone: [facility] 12-10-2022 10:53-0400 Body weight 87.54 kg Evy Verma MD Work Phone: [facility] 12-10-2022 10:53-0400 Diastolic blood pressure 63 mm[Hg] Evy Verma MD Work Phone: [facility] 12-10-2022 10:53-0400 Heart rate 65 /min Evy Verma MD Work Phone: [facility] 12-10-2022 10:53-0400 Systolic blood pressure 125 mm[Hg] Evy Verma MD Work Phone: [facility] 11-08-2022 16:21-0400 Body height 160 cm Riana Chinchilla APRN-[employer] Work Phone: [facility] Comment on above: verbal 11-08-2022 16:21-0400 Body mass index (BMI) [Ratio] 34.26 kg/m2 Riana Chinchilla [employer] Work Phone: [facility] 11-08-2022 16:21-0400 Body temperature 99.1 [degF] Riana Chinchilla [employer] Work Phone: [facility] 11-08-2022 16:21-0400 Body weight 87.73 kg Riana Chinchilla STRAIGHT [employer] Work Phone: [facility] 11-08-2022 16:21-0400 Diastolic blood pressure 71 mm[Hg] Crystal Raoul STRAIGHT [employer] Work Phone: [facility] 11-08-2022 16:21-0400 Heart rate 97 /min Crystal Raoul [employer]AIGHT [employer] Work Phone: [facility] 11-08-2022 16:21-0400 Systolic blood pressure 116 mm[Hg] Crystal Raoul [employer] Work Phone: [facility] 07-04-2021 09:38-0400 Body height 161.3 cm Riana Raoul STRAIGHT [employer] Work Phone: [facility] Comment on above: verbal 07-04-2021 09:38-0400 Body mass index (BMI) [Ratio] 36.23 kg/m2 Riana Chinchilla STRAIGHT [employer] Work Phone: [facility] 07-04-2021 09:38-0400 Body temperature 98.71 [degF] Riana Raoul STRAIGHT [employer] Work Phone: [facility] 07-04-2021 09:38-0400 Body weight 94.26 kg Riana Chinchilla STRAIGHT [employer] Work Phone: [facility] 07-04-2021 09:38-0400 Diastolic blood pressure 70 mm[Hg] Crystal Raoul STRA[employer] Work Phone: [facility] 07-04-2021 09:38-0400 Heart rate 73 /min Riana Raoul STRAIGHT [employer] Work Phone: [facility] 07-04-2021 09:38-0400 Systolic blood pressure 119 mm[Hg] Crystal Raoul [employer] Work Phone: [facility] Encounters Encounter Date Encounter Type Care Provider Facility Start: 08-21-2023 End: 08-21-2023 Office outpatient visit 25 minutes Cori Loyachristin DO Work Phone: [facility] 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); Anxiety disorder, unspecified type Start: 08-21-2023 [facility] Facility: [facility] Start: 07-07-2023 End: 07-07-2023 ambulatory [facility] Work Phone: Start: 07-07-2023 End: 07-07-2023 Patient encounter procedure [facility] Work Phone: Start: 06-27-2023 Non-patient / Non-visit [facility] Work Phone: Start: 06-08-2023 Non-patient / Non-visit [facility] Work Phone: Start: 05-28-2023 End: 05-28-2023 Office outpatient visit 25 minutes Riana Chinchilla [employer] Work Phone: [facility] [place] 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); Anxiety disorder, unspecified type Start: 05-28-2023 [facility] Facility: [facility] Start: 05-09-2023 Non-patient / Non-visit [facility] Work Phone: Start: 04-22-2023 End: 04-22-2023 ambulatory DONOVAN KIMMIE Not Available Start: 04-22-2023 End: 04-22-2023 Office outpatient visit 15 minutes Donovan Kimmie DO Work Phone: [facility] Comment on above: Encounter for fertil ity planning Start: 02-14-2023 End: 02-14-2023 Office outpatient visit 25 minutes Riana Chinchilla [employer] Work Phone: [facility] [place] 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); 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 Start: 02-14-2023 ambulatory TIM ROLON Facility: [facility] Start: 01-15-2023 End: 01-15-2023 ambulatory EVY VERMA Facility:[facility] Start: 01-15-2023 End: 01-15-2023 Subsequent hospital visit by physician Evy Verma MD Work Phone: [facility] 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 Start: 01-09-2023 ambulatory EVY VERMA Facility:[facility] Start: 01-09-2023 End: 01-09-2023 Office consultation new/estab patient 60 min Esau Hernandez PAC Work Phone: Pre-Procedure Evaluation and Assessment [facility] Comment on above: Preop exam for inter nal medicine (Primary Dx); Jeavons syndrome; 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 Start: 01-09-2023 End: 01-09-2023 Patient encounter status Esau Hernandez PAC Work Phone: [facility] Start: 01-09-2023 End: 01-09-2023 Subsequent hospital visit by physician Evy Verma MD Work Phone: [facility] Comment on above: Arrived Start: 01-09-2023 ambulatory TIM ROLON Facility: [facility] Start: 01-09-2023 Encounter for other preprocedural examination ESAU HERNANDEZ Facility:[facility] Start: 01-09-2023 ambulatory TIM HAYLIE Facility: [facility] Start: 12-10-2022 End: 12-10-2022 Office outpatient new 45 minutes Evy Verma MD Work Phone: [facility] 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) Start: 12-10-2022 ambulatory RIANA CHINCHILLA Facilit y:[facility] Start: 11-27-2022 ambulatory TIM BALL Facility: [facility] Start: 11-19-2022 ambulatory TIM BALL Facility: [facility] Start: 11-14-2022 ambulatory TIM BALL Facility: [facility] Start: 11-08-2022 End: 11-08-2022 Office outpatient visit 40 minutes Riana Chinchilla STRA[employer] Work Phone: Neurology [facility] 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) Start: 11-08-2022 ambulatory RIANA CHINCHILLA Facilit y:[facility] Start: 09-19-2022 ambulatory TIM ROLON Facility: [facility] Start: 09-13-2022 ambulatory SELF SELF Facility:[facility] Start: 05-23-2022 End: 05-24-[address] DONOVAN BURKS . Facility:[facility] Start: 04-30-2022 End: 05-01-[address] DOCTOR ASHTON Facility:[facility] Start: 04-16-2022 End: 04-17-[address] DONOVAN BURKS . Facility: Start: 04-15-2022 End: 04-16-[address] DONOVAN BURKS . Facility: Start: 08-27-2021 End: 08-27-[address] DONOVAN BURKS . Facility: Start: 07-04-2021 End: 07-04-2021 Office outpatient visit 25 minutes Riana Chinchilla [employer] Work Phone: [facility] Comment on above: Generalized nonconvu lsive epilepsy (Primary Dx) Start: 06-24-2018 Encounter for gynecological examination (general) (routine) without abnormal findings NA NONE PER PATIENT [facility] Start: 06-24-2018 End: 06-24-2018 Patient encounter procedure GERARDO WARD Facility:[facility] Start: 05-25-2018 End: 05-25-2018 Patient encounter procedure . NONE PER PATIENT Facility:[facility] Start: 05-13-2018 End: 05-13-2018 Patient encounter procedure . NONE PER PATIENT Facility:[facility] Start: 03-23-2018 End: 03-24-2018 Patient encounter procedure [facility] Start: 03-20-2018 End: 03-21-2018 Patient encounter procedure [facility] Procedures Date Procedure Procedure Detail Performing Clinician Start: 01-15-2023 CARDIAC RHYTHM Other Ot her Start: 01-15-2023 Gonadotropin chorion ic qualitative Evy Verma MD Work Phone: Start: 01-09-2023 CBC AND ELECTRONIC DIFF Esau Ayad Hernandez PAC Work Phone: Start: 01-09-2023 Complete blood count with white cell differential, automated Esau Ayad Hernandez PAC Work Phone: Start: 01-09-2023 Prothrombin time Esau Ayad Hernandez PAC Work Phone: Start: 01-09-2023 Radex spine cervical 2 or 3 views Evy Verma MD Work Phone: Start: 01-09-2023 Iadna s aureus ampli fied probe tq Esau Ayad Hernandez PAC Work Phone: Start: 01-09-2023 Urine test visual color cmprsn meths Esau Ayad Hernandez PAC Work Phone: Start: 02-18-2019 Blood count hematocrit Comment on above: Performed By: #### C D #### Performed at [facility] [place] [address] Start: 03-23-2018 PLATELET FUNCTION TEST JAMIL SMITH Plan of Treatment Date Care Activity Detail Author Start: 01-22-2024 End: 01-22-2024 Patient encounter procedure 01/22/2024 9:15 AM EST Office Visit [facility] [address] [place] [id number] Cori Dia, DO [address] [place] [address] Neurology [facility] Start: 11-28-2023 End: 11-28-2023 Patient encounter procedure 11/28/2023 10:20 AM EDT Office Visit [facility]rology [facility] [place] [address] [facility] [address] [place] [address] Riana Chinchilla, STRAIGHT EDGER-TURKEY ROLL MAKER [address] [place] [address] [facility] [place] Start: 11-09-2023 Influenza vaccination [facility] Start: 08-21-2023 End: 08-21-2023 Patient encounter procedure 08/21/2023 2:45 PM EDT Office Visit Neurology [facility] [address] [place] [phone] Cori Dia DO [address] [place] [address] Neurology [facility] Start: 05-28-2023 End: 05-28-2023 Patient encounter procedure 05/28/2023 2:00 PM EDT Office Visit Neurology [facility] [address] [place] [phone] Riana Chinchilla, STRAIGHT EDGER-TURKEY ROLL MAKER [address] [place] [phone] Neurology [facility] Start: 02-14-2023 End: 02-14-2023 Patient encounter procedure [facility] Start: 01-15-2023 End: 01-15-2023 Admission to same day surgery center 01/15/2023 9:40 AM EST - 01/15/2023 11:50 AM EST Surgery [facility] [address] [place] [address] Evy Verma MD [address] [place] [phone] INSERTION REPLACEMENT NEUROSTIMULATOR GENERATOR CRANIAL/INTRACRANIAL [facility] Comment on above: INSERTION REPLACEMENT NEUROSTIMULATOR GE NERATOR CRANIAL/INTRACRANIAL Start: 01-15-2023 End: 01-15-2023 Insj/rplcmt cranial neurostim pulse generator INSERTION REPLACEMENT NEUROSTIMULATOR GENERATOR CRANIAL/INTRACRANIAL Jeavons syndrome 01/15/2023 9:40 AM EST [facility] Start: 01-15-2023 Subsequent hospital visit by physician 01/15/2023 9:40 AM EST Hospital Encounter [facility] [address] [place] [address] Evy Verma MD [address] [place] [address] Jeavons syndrome [facility] 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 Start: 12-10-2022 End: 12-11-2023 Radiographic imaging procedure XR STIMULATOR/INTRATHECAL PUMP Imaging Routine Jeavons syndrome Expected: 12/10/2022, Expires: 12/11/2023 [facility] Comment on above: Expected: 12/10/2022, Expires: Start: 12-10-2022 End: 12-10-2022 Patient encounter procedure 12/10/2022 11:30 AM EDT Office Visit [address] [place] [address] Evy Verma MD [address] [place] [phone] [facility] Start: 11-08-2022 COVID-19 VACCINE ( season) COVID-19 VACCINE ( season) [facility] Start: 11-08-2022 Influenza vaccination INFLUENZA VACCINE (#1) [facility] Start: 01-04-2022 End: 01-04-2022 Patient encounter procedure 01/04/2022 Office Visit Neurology Cori Dia, [address] [place] [address] Neurology [facility] Start: 11-08-2021 Influenza vaccination INFLUENZA VACCINE (Season Ended) [facility] Start: 10-10-2021 End: 10-10-2021 Telemedicine consultation with patient 10/10/2021 Telemedicine Neurology Riana Chinchilla, STRAIGHT EDGER-TURKEY ROLL MAKER [address] [place] [phone] Neurology [facility] Start: 08-15-2021 End: 08-15-2021 Telemedicine consultation with patient 08/15/2021 Telemedicine Neurology Riana Chinchilla, STRAIGHT EDGER-TURKEY ROLL MAKER [address] Floor [place] [phone] [facility] Start: 2013 Screening for malignant neoplasm of cervix CERVICAL CANCER SCREENING DISCUSSION [facility] Start: 07-15-2011 Hepatitis B vaccination HEP B VACCINE (1 of 3 - 19+ 3-dose series) [facility] Start: 07-15-2011 Third diphtheria, tetanus and acellular pertussis (DTaP) vaccination TDAP (ADULT) [facility] Start: 2010 Tetanus vaccination TETANUS [facility] Start: 07-15-2007 HIV screening HIV SCREENING DISCUSSION [facility] Start: 1997 COVID-19 VACCINE (1) COVID-19 VACCINE (1) [facility] Start: 01-14-1993 COVID-19 VACCINE (#1) COVID-19 VACCINE (#1) [facility] Start: 1992 Hepatitis B vaccination HEP B VACCINE (1 of 3 - 3-dose series) [facility] Start: 1992 Hepatitis C antibody, confirmatory test HEPATITIS C VIRUS SCREENING [facility] Start: 1992 Hepatitis C screening HEPATITIS C VIRUS SCREENING [facility] Start: 1992 Tetanus vaccination TETANUS [facility] Ecg routine ecg w/le ast 12 lds w/i&r TX ELECTROCARDIOGRAM, COMPLETE TX - OFFICE PERFORMED Routine 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 Ordered: 01/09/2023 [facility] Comment on above: Ordered: 01/09/2023 Elec horace implt npgt phys/qhp w/o programming TX ELEC HORACE IMPLT NPGT PHYS/QHP W/O PROGRAMMING TX Charge Routine Jeavons syndrome Ordered: 09/09/2023 [facility] Comment on above: Ordered: 09/09/2023 Elec horace implt smpl cn npgt prgrmg TX ELEC HORACE IMPLT SMPL CN NPGT PRGRMG TX Charge Routine Jeavons syndrome Ordered: 11/14/2022 [facility] Comment on above: Ordered: 11/14/2022 Elec horace implt smpl cn npgt prgrmg TX ELEC HORACE IMPLT SMPL CN NPGT PRGRMG TX Charge Routine 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 Ordered: 03/12/2023 [facility] Comment on above: Ordered: 03/12/2023 Elec horace implt smpl cn npgt prgrmg TX ELEC HORACE IMPLT SMPL CN NPGT PRGRMG TX Charge Routine Jeavons syndrome Ordered: 06/21/2023 [facility] Comment on above: Ordered: 06/21/2023 Insj/rplcmt cranial neurostim pulse generator INSERTION REPLACEMENT NEUROSTIMULATOR GENERATOR CRANIAL/INTRACRANIAL Jeavons syndrome [facility] Noninvasive ear/puls e oximetry single deter TX NONINVASV OXYGEN SATUR; SINGLE TX - OFFICE PERFORMED Routine 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 Ordered: 01/09/2023 [facility] Comment on above: Ordered: 01/09/2023 Immunizations Immunization Date Immunization Notes Care Provider Lee shelton 01-04-2014 influenza, seasonal, injectable, preservative free Evy Verma MD Work Phone: [facility] 01-04-2014 influenza virus vaccine, unspecified formulation Riana MORELOS Work Phone: [facility] Payers Date Payer Category Payer Unknown [id number] 2021 Medicaid [employer] [place] [id number] 2021-Present [address] [place] [address] [id number] 2016 Unknown [id number] 2016 Self-pay 2014 Unknown [id number] 1992 Unknown [id number] 2.16.840.1.477486.3.579.2.173 1992 Unknown [id number] 2.16.840.1.767339.3.579.2.173 1992 Unknown [id number] 2.16.840.1.224452.3.579.2.754 1992 Unknown [id number] 2.16.840.1.351394.3.579.2.754 1992 Unknown [id number] 2.16.840.1.525422.3.579.2.754 1992 Unknown [id number] 2.16.840.1.281322.3.579.2.754 1992 Unknown [id number] 2.16840.1.814410.3.579.2.593 1992 Unknown [id number] 2.16.840.1.334510.3.579.2.593 1992 Unknown [id number] 2.16.840.1.460216.3.579.2.593 1992 Unknown [id number] 2.16.840.1.008442.3.579.2.593 1992 Unknown [id number] 2.16840.1.709378.3.579.2.593 1992 Unknown [id number] 2.16.840.1.247017.3.579.2.1259 1992 Unknown [id number] 2.16.840.1.742922.3.579.2.594 1992 Unknown [id number] 2.16.840.1.212394.3.579.2.594 1992 Unknown [id number] 2.16.840.1.086612.3.579.2.594 1992 Unknown [id number] 2.16.840.1.109835.3.579.2.594 1992 Unknown [id number] 2.16.840.1.392161.3.579.2.594 1992 Unknown [id number] 2.16.840.1.419385.3.579.2.594 1992 Unknown [id number] 2.16840.1.808223.3.579.2.594 1992 Unknown [id number] 2.16840.1.991519.3.579.2.594 1992 Unknown [id number] 2.16840.1.614857.3.579.2.594 1992 Unknown [id number] 2.16840.1.185439.3.579.2.594 1992 Unknown [id number] 2.16840.1.743813.3.579.2.594 1992 Unknown [id number] 2.16840.1.602191.3.579.2.594 1992 Unknown [id number] 2.16840.1.712583.3.579.2.594 1992 Unknown [id number] 2.16840.1.932989.3.579.2.594 1992 Unknown [id number] 2.16840.1.691115.3.579.2.594 1959 Unknown [id number] 1959 Unknown [id number] Social History Date Type Detail Facility Start: 10-28-2019 End: 02-14-2023 Tobacco smoking status NHIS Never smoked tobacco [facility] Start: 10-28-2019 End: 02-14-2023 Tobacco use and exposure Smokeless tobacco non-user [facility] Start: 10-28-2019 Alcohol intake Current drinker of alcohol (finding) [facility] Start: 10-28-2019 History SDOH Alcohol Frequency 2 [facility] Start: 10-28-2019 History SDOH Alcohol Comment rare wine [facility] Start: 10-28-2019 Education 17 [facility] Start: 1990 Sex Assigned At Not on file [facility] Start: 11-08-2022 End: 09-09-2023 Alcohol intake Ex-drinker (finding) [facility] Start: 10-28-2019 End: 01-15-2023 History of Social function [facility] Start: 10-28-2019 End: 01-15-2023 Alcohol Use Disorder Identification Test - Consumption [AUDIT-C] [facility] How often to you hav e a drink containing alcohol? Monthly or less [facility] Average Number of Drinks Not on file [facility] Start: 10-29-2019 Gender identity Identifies as female gender (finding) [facility] Start: 10-29-2019 Sexual orientation Heterosexual (finding) [facility] Start: 02-14-2023 Tobacco Comment Never [facility] Start: 02-14-2023 Alcohol Comment At most one or two drinks a month. [facility] Start: 04-22-2023 Alcohol intake Not Asked [facility] Start: 08-07-2022 Alcohol Comment Occasional alcohol use [facility] Start: 1990 Sex Assigned At Female [facility] Medical Equipment Procedure Code Equipment Code Equipment Origin al Text Equipment Identifier Dates Sent[employer] [id number] Start: 01-15-2023 Clinical Notes 07-04-2021 to 08-21-2023 Cori Hernández V, DO - 08/21/2023 2:45 PM EDTPatient InstructionsCrystal Duy Chinchilla APRN-TURKEY ROLL MAKER - 05/28/2023 2:00 PM EDTCvalencia Burks DO - 04/22/2023 1:00 PM ESTPatient InstructionsDischarge Instructions Note Date & Type Note Facility 08-21-2023 History of Present illness Narrative Reason for Visit: This is a 33 year old female that is following up in the clinic for the care of her epilepsy. The patient is accompanied by her who is supplying parts of the history. History of Present Illness: As you may [...] last visit, the patient continues to have <100 seizures a week that are described as described as dialeptic seizures with eyelid myoclonia. This has been quite a significant increase in seizure frequency which she attributes to ongoing stress from trying to get . To summarize, the patient was diagnosed with PCOS and has had much difficulty getting . She reports that she has also had some issues with a close friend. Due to these two circumstances, she has been feeling very stressed, anxious, and depression. She is compliant on her Lamictal and Onfi and has no clear side effects. Childbearing Age Woman with Epilepsy: Patient on [...] Anti-epileptic Medications Onfi 20 mg daily Lamictal 300 mg XR Previous Anti-epileptic Medications Banzel LEV, LTG, ZNS, VPA, ETX, Epidiolex (diarrhea) Depakote Vimpat Past Medical History She has a past medical history of Anxiety, Anxiety disorder (03/05/2022), Hematuria, and Seizure. Past Family History No family history of seizures. Past Social History She reports that she has never smoked. She has never used smokeless tobacco. She reports that she does not currently use alcohol. She reports that she does not currently use drugs after having used the following drugs: Marijuana. Past Surgical History She has a past surgical history that includes insertion neurostimulator electrode & generator cranial nerve (eg vagus) incisional. Allergies She is allergic to seasonal. Medications Outpatient Medications Prior to Visit Medication Sig Dispense Refill acetaminophen 650 MG Tab CR Take 1 tablet by mouth every 6 hours as needed for Mild Pain. Calcium Carb-Cholecalciferol (CALCIUM + D3 PO) Take 600 mg by mouth daily. cloBAZam 20 MG tablet Take 1 tablet by mouth Daily (with dinner). 30 tablet 5 Folic acid 1 MG tablet take 1 tablet by mouth every day with dinner 90 tablet 3 LamoTRIgine 300 MG Tab SR 24 HR take 1 tablet by mouth everyday at bedtime 90 tablet 1 loratadine 10 MG tablet Take 1 tablet by mouth as needed. MAGNESIUM GLYCINATE PO Take 1,000 mg by mouth daily. medroxyPROGESTERone 10 MG tablet Take 1 tablet [...] 24 hours. 2 Each 0 Prenat MV-Min w/Hj-Puqbkv-BFX ( COMPLETE PO) Take 1 tablet by mouth at bedtime. Sertraline 100 MG tablet Take 1.5 tablets by mouth at bedtime. 45 tablet 2 Femara 2.5 MG tablet Take 1 tablet by mouth at bedtime. Cycle day 3,4 5, 6,7 7.5 mg (Patient not taking: Reported on 08/21/2023) No facility-administered medications prior to visit. Physical Exam BP 130/76 (BP Location: Right arm, BP Position: Sitting) Pulse 88 Temp 98.3 F (36.8 C) (Infrared) Ht 1.613 m (5' 3.5 ) Comment: verbal Wt 90 kg (198 lb 6.4 oz) BMI 34.59 kg/m Smoking Status Never Body mass index is 34.59 kg/m . Brief Exam: General appearance: well-nourished, well-developed, appears stated age. Patient is alert, oriented to person, place, day, and date. Eye movements are full and conjugate in all directions. No nystagmus. VNS Settings: Battey Color 75-100% Normal Parameter Current Adjustments Output Current (mA) 2.5 Signal Frequency (Hz) 20 Pulse Width (uSec) 250 On time (Sec) 30 Off Time (Min) 1.1 AutoStim Parameter Current Adjustments Output Current 2.75 Pulse Width 250 On time 30 Magnet Settings Parameter Current New Output Current 2.75 Pulse Width 500 On time 14 Tachycardia Current New Tachycardia Detection Enabled Heartbeat detection sensitivity Threshold for AutoStim 40% System Diagnostic Patient ID AW Model ID Sentiva N1000 Serial # [id number] Implanted 03/27/2018 Communication Output Current Status Current Delivered Lead Impedance ok Impedance Value Battery 75-100% Assessment: This is a 32 year old female who is following up for the 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 She is currently on Onfi and Lamictal and has had a substantial increase in the baseline frequency of her seizures. We will continue with the following: Plan: 1. We will increase Lamictal to a goal dose of 400 mg daily at this visit to see if this helps her seizure frequency. No changes will be made to Onfi. 2. For her Sertraline, I have asked her to increase this to 150 mg daily. I have also asked her to start seeing a counselor for psychotherapy. 3. We talked extensively about getting while on Onfi and Lamictal and with the diagnosis of epilepsy. Generally speaking, the average population has a risk of about 2% of having a baby with a major congenital malformation. This increases while on this combination of medications. The best predictor of seizure freedom during is seizure freedom prior to . Women who are seizure free in the 9 months prior to have an 84-92% chance of remaining seizure free during the on their current regimen. She is aware that she should tell me the moment that she is trying to conceive so we can get updated levels (for our target dose) and once she is , we will need to monitor these levels on a monthly basis. For now, she will continue with FA 1 mg + PNV 4. I provided her a letter for the uber voucher through [employer]. 5. The patient is aware that she should not drive until seizure free for 6 months. The patient was asked not to work in close proximity of machines with moving parts, not to swim unsupervised, not to take tub baths or shower with water accumulation, and not to work at high places. The patient will follow-up in the Epilepsy clinic in 4 months. In the meantime, the Neurology clinic phone number was provided to the patient in case of questions or concerns. Cori Hernández DO Data Sciences Director Department of Neurology, Epilepsy Division [facility] documented in this encounter [facility] 08-21-2023 Instructions Cori Meek DO - 08/21/2023 2:45 PM EDT Increase Lamictal as follows: Week 1: Lamictal XR 300 mg + 50 mg tablet Week 2 and on: Lamictal XR 300 mg + 100 mg tablet Apply for the uber voucher: [email or web address].epilepsy.com/ride-sh are Increase Sertraline to 100 mg daily + 50 mg daily Continue with Folic acid 1 mg + vitamin Please follow-up with me in the clinic in 4 months. If you have any questions or concerns prior to the next visit, you can call the Neurology clinic at [phone]. If you have access through [facility] [employer], you can contact me through that system as well. documented in this encounter [facility] 05-28-2023 History of Present illness Narrative Images from the original note were not included. Rowena Drake was seen in the [facility] on 05/28/2023. She is here today for a follow-up in clinic accompanied by her , Pedro. She was last seen on 04/19/[address] Cori Hernández DO and with me 02/14/2023. History of [...] affected seasonally. Pertinent Seizure History Per Dr Hernández 04/2022: [...] 24 hours. 2 Each 0 Prenat MV-Min w/Ha-Tnmlqs-JDF ( COMPLETE PO) Take 1 tablet by [...] your epilepsy that we offer at the [facility]? Yes If you have tried 2 or 3 anti-seizure medications and your seizures are still not controlled, are you interested in learning about surgical options for your epilepsy that we can offer at the [facility]? No Neurological Disorders Depression Inventory for Epilepsy [...] 01/15/2023 Model Number 1000 1000 Serial Number [id number] Output Current (mA) 2.5 mA 2.25 mA [...] and continue maintenance dose of clobazam - TX ELEC HORACE IMPLT SMPL CN NPGT PRGRMG [...] seizure rescue medications and when to call 9--. We discussed seizure first aid: Generally speaking, [...] 45 tablet; Refill: 2 Encouraged use of [employer] to send messages to provider as needed for questions and concerns or can call our clinic @ [phone]. She will return in [address] Hernández or sooner if clinically indicated. Signed, Riana Chinchilla MSN, STRAIGHT EDGER-TURKEY ROLL MAKER [facility] Department of Neurology - Epilepsy Division [address] [place] [address] - 7th floor [place] [address] Pager: [phone] I spent a total of 35 minutes on the date of the service which included preparing to see the patient, bzru-gw-mkmo patient care, completing clinical documentation, performing a medically appropriate examination and counseling and educating the patient/family/caregiver. Note to patient: The 21st Century Cures Act makes medical notes like these available to patients in the interest of transparency. However, be advised this is a medical document. It is intended as lmgg-kx-wgnq communication. It is written in medical language and may contain abbreviations or verbiage that are unfamiliar. It may appear blunt or direct. Medical documents are intended to carry relevant information, facts as evident, and the clinical opinion of the practitioner. documented in this encounter [facility] 04-22-2023 History of Present illness Narrative Reason [...] nursing note reviewed. Exam conducted with a division toll wire chief present. Vitals: Estimated body mass index is [...] Donovan Burks DO documented in this encounter [facility] 02-14-2023 History of Present illness Narrative Images from the original note were not included. Rowena Byers was seen in the [facility] on 02/14/2023. She is here today for a follow-up in clinic accompanied by her , Pedro. She was last seen on 04/19/[address] Cori Hernández DO and with ar 11/08/2022. History of Present Illness INTERVAL HISTORY: [...] 24 hours. 2 Each 0 Prenat MV-Min w/Ek-Ilrcmo-EQR ( COMPLETE PO) Take 1 tablet by [...] ID ABW Model ID SenTiva Serial # [id number] Implanted 01/15/2023 Communication OK Output Current Status [...] VNS Simple Reprogramming (1-3 changes) CPT code 15639 Assessment and Plan Assessment: Rowena is a [...] longer than 5 minutes. Encouraged use of [employer] to send messages to provider as needed for questions and concerns or can call our clinic @ [phone]. She will return in 3 months with me and [address] Hernández or sooner if clinically indicated. Signed, Riana Chinchilla MSN, STRAIGHT EDGER-TURKEY ROLL MAKER [facility] Department of Neurology - Epilepsy Division [address] [place] [address] - 7th floor [place] [address] Pager: [phone] I spent a total of 34 minutes on the date of the service which included preparing to see the patient, zegj-ld-xxpq patient care, completing clinical documentation, performing a medically appropriate examination and counseling and educating the patient/family/caregiver. Note to patient: The Century Cures Act makes medical notes like these available to patients in the interest of transparency. However, be advised this is a medical document. It is intended as ymns-ei-zfyw communication. It is written in medical language and may contain abbreviations or verbiage that are unfamiliar. It may appear blunt or direct. Medical documents are intended to carry relevant information, facts as evident, and the clinical opinion of the practitioner. documented in this encounter [facility] 02-14-2023 Instructions JETHRO Juan - [...] after regular office hours, a neurologist is editorial cartoonist for urgent issues. Call the neurology office number ([phone]) to reach the neurologist editorial cartoonist if you are continuing to experience many more seizures than usual despite use of your rescue medications. Please try to remember that the neurologist editorial cartoonist may not have access to your complete medical record and may not be as familiar with your history. If you have access through [facility], you can contact us through that system as well. If you have documents that need completed or sent to our clinic, please have them faxed to [phone]. 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 Seizure First Aid Training Can Be Found Here (it's free!): [email or web address] nd documented in this encounter [facility] 01-15-2023 Miscellaneous Notes [facility] OPERATIVE REPORT PATIENT NAME: Rowena [...] The IPG had been interrogated by the patient admitting representative from the vendor. The upper chest [...] the new IPG and secured with the edge beader's screwdriver. At this point, a cobol programmer was used to interrogate the new [...] Pt discharged via wheelchair. Report called to [facility], VSS, anesthesia sign out completed. 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 SURGEON Surgeon(s) and Role: * Evy Verma MD - Primary ANESTHESIOLOGIST Anesthesiologist: Cydney Zavala MD TAPROOM ATTENDANT: Geraldo Marion APRN-TAPROOM ATTENDANT Student Nurse Folder Tier: Chiquita Polanco SURGICAL STAFF Finish Off Operator: Miki Gary RN; Linda Gilmore RN Relief Finish Off Operator: Janet Carreon RN Scrub Person: Marielle Ibrahim Resident Assisting: Colt [place] MD COMPLICATIONS None ESTIMATED BLOOD LOSS Minimal SPECIMENS No specimen sent * No specimens in log * Colt [place] MD January 15, 2023 11:03 AM documented in this encounter [facility] 01-15-2023 Nurse Note Pt and family were given AVS and verbalize understanding of instructions. Pt discharged via wheelchair. [facility] 01-15-2023 Surgery Postoperative evaluation and management note [facility] OPERATIVE REPORT PATIENT NAME: Rowena [...] The IPG had been interrogated by the patient admitting representative from the vendor. The upper chest [...] the new IPG and secured with the edge beader's screwdriver. At this point, a cobol programmer was used to interrogate the new [...] entire procedure and performed the critical portions. [facility] 01-15-2023 Nurse Note Report called to RN SPR, VSS, anesthesia sign out completed. 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 SURGEON Surgeon(s) and Role: * Evy Verma MD - Primary ANESTHESIOLOGIST Anesthesiologist: Cydney Zavala MD TAPROOM ATTENDANT: Geraldo Marion APRN-TAPROOM ATTENDANT Student Nurse Folder Tier: Chiquita Polanco SURGICAL STAFF Finish Off Operator: Miki Gary RN; Linda Gilmore RN Relief Finish Off Operator: Janet Carreon RN Scrub Person: Marielle Ibrahim Resident Assisting: Colt Meadows MD COMPLICATIONS None ESTIMATED BLOOD LOSS Minimal SPECIMENS No specimen sent * No specimens in log * Colt Meadows MD January 15, 2023 11:03 AM [facility] 01-15-2023 Nurse Surgical operation note Report given to MANAGER COMMERCIAL REAL ESTATE. Patient transported to PACU with anesthesia on a cart and oxygen. [facility] 01-15-2023 Nurse Note Report given to MANAGER COMMERCIAL REAL ESTATE. Patient transported to PACU with anesthesia on a cart and oxygen. documented in this encounter [facility] 01-15-2023 Hospital Discharge instructions Colt Meadows MD - 01/15/2023 9:30 AM EST Discharge Instructions for DBS Surgery & Battery Placement Surgery Here are some general guidelines to assist you in your recovery at home. Please do not hesitate to call us with any questions or concerns you may have. We can be reached at [phone]. Your appointmentS will be in the Neuromodulation clinic in [address] Incision Care: If you have a [...] 101 degrees F documented in this encounter [facility] 01-15-2023 History and physical note PERIOPERATIVE SURGICAL [...] SpO2 98 %. I have reviewed Rowena Tiara Byers's medical, surgical and other pertinent history, and I have updated the medication and allergy information in the computerized patient record. I have examined the patient, reviewed the previous H&P completed on date (01-09-23) and there are no changes. Today's surgical history and physical update was completed by Evy Verma MD, 01/15/2023, 9:08 AM. [facility] Work Phone: 01-15-2023 History and physical note [...] 01/15/2023, 9:08 AM. documented in this encounter [facility] 01-09-2023 History and physical note Images from the original note were not included. History of Present Illness Ms. Byers is a 32 y.o. female is being evaluated in [facility] due to her medical condition of [...] 10 mg in 24 hours. Prenat MV-Min w/If-Dmnjvr-NON ( COMPLETE PO) Take 1 tablet by [...] % ointment HCG QUALITATIVE, URINE Pulse Ox TX ECG, CLINIC PERFORMED Lab A/P - Labs [...] patient has been medically OPTIMIZED FOR SURGERY. [facility] Perioperative Clinic [facility] [address] Review of Systems (OSUROS)Review of Systems [...] PCP - General (Internal Medicine) Riana Chinchilla APRN-TURKEY ROLL MAKER (Certified Nurse Practitioner) Family History Problem Relation Age of Onset Prostate Cancer Maternal Grandfather Mental Illness Maternal Grandmother Depression , Anxiety Prostate Cancer Paternal Grandfather Cancer- Other Paternal Grandfather Diabetes Paternal Uncle Social History Socioeconomic History Marital status: Highest education level: Bachelor's degree (e.g., BA, AB, BS) 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 Prenat MV-Min w/Zz-Cyhsxb-ISK ( COMPLETE PO) Take 1 tablet by [...] % ointment HCG QUALITATIVE, URINE Pulse Ox TX ECG, CLINIC PERFORMED Lab A/P - Labs [...] patient has been medically OPTIMIZED FOR SURGERY. 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 She takes Lamictal for treatment 4. Drug Abuse Program Coordinator--patient states she is actively trying to get . Will check hCG today and on day of surgery. Patient understands that surgery may be cancelled if she is . Anesthesia Assessment:No contraindications to planned surgery. Pending review of the patient's labs.ECG reviewed. Whitney Ward MD [facility] documented in this encounter [facility] 01-09-2023 Instructions Robyn CASSIE Dempsey - 01/09/2023 8:30 AM EDT Patient Medication [...] take Herbal Medication (including multi-vitamin, fish oil ([place]-3), garlic, Glucosamine - Chondroitin ,gingko, ginseng, Vitamin [...] site one week prior to surgery. - [place] your teeth and rinse your mouth the morning of surgery. - Do NOT bring your dentures or partials with you into surgery. They may be lost. Give them to someone to bring to you after surgery. If you are unable to complete your scheduled testing or appointments made by [facility] please contact [facility] at [phone]. Failure to do so could delay or [...] surgery, please notify our team immediately at [phone]. - If you have Sleep apnea and have a CPAP or BIPAP, then bring your CPAP mask and machine with you to the hospital. Please contact Medical Information Management Department for all records requests. Blgany-[phone] [phone] Puma/mateo documented in this encounter [facility] 12-10-2022 History of Present illness [...] that were dedicated to clinical evaluation, including orgt-gk-rpii time; counseling and education; chart completion; reviewing [...] aspirin, excedrin, plavix), multivitamins/minerals/herbal supplements (such as [place]-3, garlic, Glucosamine - Chondroitin, gingko, ginseng, Vitamin E, fish oil, etc), non-steroidal anti-inflammatory medications (NSAIDs) (such as Ibuprofen/Motrin/Advil, Aleve, Celebrex) for 10 days prior to surgery, as these are blood thinners. She was advised that Tylenol is the preferred option for pain. She stated understanding. documented in this encounter [facility] 11-08-2022 History of Present illness Narrative Images from the original note were not included. Rowena Byers was seen in the [facility] on 11/08/2022. She is here today for a follow-up in clinic accompanied by her , Pedro. She was last seen on 04/19/[address] Cori Hernández DO and with ar 09/19/22. History of Present Illness INTERVAL HISTORY: [...] ID AW Model ID SenTiva Serial # [id number] Implanted 03/27/2018 Communication OK Output Current Status [...] VNS Simple Reprogramming (1-3 changes) CPT code 01868 Assessment and Plan Assessment: Rowena is a [...] would like to wait Encouraged use of [employer] to send messages to provider as needed for questions and concerns or can call our clinic @ [phone]. She will return in 2 months or sooner if clinically indicated. Signed, Riana Chinchilla MSN, STRAIGHT EDGER-TURKEY ROLL MAKER [facility] Department of Neurology - Epilepsy Division [address] [place] [address] - 7th floor [place] [address] Pager: [phone] I spent a total of 46 minutes on the date of the service which included preparing to see the patient, gnqq-au-qlay patient care, completing clinical documentation, performing a medically appropriate examination and counseling and educating the patient/family/caregiver. Note to patient: The Century Cures Act makes medical notes like these available to patients in the interest of transparency. However, be advised this is a medical document. It is intended as fhsi-by-mbxr communication. It is written in medical language and may contain abbreviations or verbiage that are unfamiliar. It may appear blunt or direct. Medical documents are intended to carry relevant information, facts as evident, and the clinical opinion of the practitioner. documented in this encounter [facility] 11-08-2022 Instructions JETHRO Juan - 11/08/2022 4:20 [...] ID AW Model ID SenTiva Serial # [id number] Implanted 03/27/2018 Communication OK Output Current Status OK Current Delivered 1.75 Lead Impedance OK Impedance Value 2903 IFI NO Average # of Inhibited Auto stimulations Daily Avg. Stim % Per Day %Therapy Normal 843.56 AutoStim 26.89 Magnet 0.04 Total 870.50 documented in this encounter [facility] 07-04-2021 Instructions JETHRO Juan - 07/04/2021 9:06 AM EDT Drug name: Depakote ER Pill strength: 250 mg Drug name: Vimpat Pill strength: 100 mg Week 1 Start: 1 tablet in the evening 1/2 tab in the morning, 1/2 tab in the evening Week 2 Start: STOP 1 tablet twice daily and continue Follow up in 4-6 weeks with Riana documented in this encounter [facility] 07-04-2021 History of Present illness Narrative Images from the original note were not included. Rowena Byers was seen in the [facility] at [facility] on 07/04/2021. 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 Encouraged use of [employer] to send messages to provider as needed for questions and concerns or can call our clinic @ [phone]. She will return in 6 weeks and 3 months with me and [address] Hernández or sooner if clinically indicated. Signed, Riana Chinchilla MSN, STRAIGHT EDGER-TURKEY ROLL MAKER [facility] Department of Neurology - Epilepsy Division [address] [place] [address] - 7th floor [place] [address] Pager: [phone] Time to complete visit: I spent approximately 38 minutes reviewing the chart prior to the appointment, in face to face counseling with the patient, and with documentation after the visit. documented in this encounter [facility] Evaluation note Diagnosis Generalized nonconvulsive epilepsy- Primary Generalized nonconvulsive epilepsy without mention of intractable epilepsy [facility] Diagnosis Jeavons syndrome- Primary [facility] Diagnosis Jeavons syndrome- Primary [facility] Diagnosis Jeavons syndrome Jeavons syndrome [facility] Diagnosis Preop exam for internal medicine- Primary Other specified pre-operative examination 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 Other postprocedural status Jeavons syndrome [facility] 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 Other postprocedural status [facility] Encounter for fertility planning documented in this encounter [facility]* Diagnosis Jeavons syndrome- Primary Anxiety disorder, unspecified type [facility] Diagnosis Onset Date Resolution Status Maxillary sinusitis acute [facility] Work Phone: Evaluation note* Diagnosis Jeavons syndrome- Primary Anxiety disorder, unspecified type [facility] Consultation (Routine) - New Request Specialty Diagnoses / Procedures Referred By Rainer ramos Referred To Contact Neurologic Surgery Diagnoses Jeavons syndrome Evy Verma MD [address] [place] [address] Referral ID Status Reason Start Date Expiration Date V isits Requested Visits Authorized [id number] New Request 12/10/2022 01/04/2024 1 1 [facility] Summary Purpose Family History Relationship Condition Age at Onset Recorded Date/T jorge grandparent Malignant neoplasm Unknown Advance Directives Advance Directive Response Recorded Date/ Time Advance Directives No July 06, 024 12:12pm Reason for Referral Specialty Diagnoses / Procedures Referred By Rainer ramos Referred To Contact Diagnoses Generalized nonconvulsive epilepsy Riana Chinchilla, STRAIGHT EDGER-TURKEY ROLL MAKER [address] [place] [address] Referral ID Status Reason Start Date Expiration Date V isits Requested Visits Authorized [id number] Pending Review 1 1 Specialty Diagnoses / Procedures Referred By Contac t Referred To Contact Procedures DVT/VTE RISK ASSESSMENT Evy Verma MD [address] [place] [phone] Referral ID Status Reason Start Date Expiration Date V isits Requested Visits Authorized [id number] New Request 01/15/2023 02/09/2024 1 1 Chief Complaint and Reason for Visit Chief Complaint sinus infection Reason for Visit Maxillary sinusitis Additional Source Comments INFORMATION SOURCE (unrecogn ized section and content) DATE CREATED AUTHOR 09/03/2017 [facility] DATE CREATED AUTHOR AUTHOR'S ORGANIZ ATION 03/28/2018 [facility] DATE CREATED AUTHOR AUTHOR'S ORGANIZ ATION 07/02/2018 [facility] DATE CREATED AUTHOR AUTHOR'S ORGANIZ ATION 10/02/2019 [facility] DATE CREATED AUTHOR AUTHOR'S ORGANIZ ATION 06/01/2022 [facility] DATE CREATED AUTHOR AUTHOR'S ORGANIZ ATION 04/24/2023 [facility] EP[facility] DATE CREATED AUTHOR AUTHOR'S ORGANIZ ATION 05/29/2023 [facility] EPIC DATE CREATED AUTHOR AUTHOR'S ORGANIZ ATION 08/23/2023 [facility] Reason for Visit (unrecogniz ed section and content) Reason Comments Follow-up Reason Comments Follow-up Reason Comments New Patient 32 y.o female here f or consult. 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] Procedures TX IMP STIM,CRANIAL,SUBQ,1 ARRAY INSERTION REPLACEMENT NEUROSTIMULATOR GENERATOR CRANIAL/INTRACRANIAL Evy Verma MD [address] [place] [address] [facility] [address] [place] [address] Referral ID Status Reason Start Date Expiration Date Visits Re quested Visits Authorized [id number] 1 1 Reason Comments Infertility Care Teams (unrecognized sec tion and content) Chronometer Tester Relationship Specialty Start Date End Date Tim Rolon DO [address] [place] [address] PCP - General Internal Medicine 09/19/22 Riana Chinchilla, STRAIGHT EDGER-TURKEY ROLL MAKER [address] [place] [phone] Certified Nurse Practitioner 11/08/22 Chronometer Tester Relationship Specialty Start Date End Date Tim Rolon DO [address] [place] [address] PCP - General Internal Medicine 09/19/22 Riana Chinchilla, STRAIGHT EDGER-TURKEY ROLL MAKER [address] [place] [address] Certified Nurse Practitioner 11/08/22 Chronometer Tester Relationship Specialty Start Date End Date Tim Rolon DO [address] [place] [address] PCP - General Internal Medicine 09/19/22 Riana Chinchilla, STRAIGHT EDGER-TURKEY ROLL MAKER [address] [place] [phone] Certified Nurse Practitioner 11/08/22 Chronometer Tester Relationship Specialty Start Date End Date Tim Rolon DO [address] [place] [phone] PCP - General Internal Medicine 09/19/22 Riana Chinchilla, STRAIGHT EDGER-TURKEY ROLL MAKER [address] [place] [phone] Certified Nurse Practitioner 11/08/22 Chronometer Tester Relationship Specialty Start Date End Date Tim Rolon DO [address] [place] [phone] PCP - General Internal Medicine 09/19/22 Riana Chinchilla, STRAIGHT EDGER-TURKEY ROLL MAKER [address] [place] [phone] Certified Nurse Practitioner 11/08/22 Chronometer Tester Relationship Specialty Start Date End Date Tim Rolon DO [address] [place] [phone] PCP - General Internal Medicine 09/19/22 Riana Chinchilla, STRAIGHT EDGER-TURKEY ROLL MAKER [address] [place] [phone] Certified Nurse Practitioner 11/08/22 Chronometer Tester Relationship Specialty Start Date End Date Tim Rolon MD [address] [place] [address] PCP - General Internal Medicine 08/08/22 Chronometer Tester Relationship Specialty Start Date End Date Tim Rolon DO [address] [place] [phone] PCP - General Internal Medicine 09/19/22 Riana Chinchilla APRN-TURKEY ROLL MAKER [address] [phone] Certified Nurse Practitioner 11/08/22 Team Status: Active Member Role Status Dates Tim Rolon DO Primary Care Provider Active Team Status: Active Member Role Status Dates Tim Rolon DO Primary Care Provide r, Attending Provider Active Start: May 09, 2023 Team Status: Active Member Role Status Dates Tim Rolon DO Primary Care Provide r, Attending Provider Active Start: June 08, 2023 Team Status: Active Member Role Status Dates Tim Rolon DO Primary Care Provide r, Attending Provider Active Start: June 27, 2023 Team Status: Inactive Member Role Status Dates Tim Rolon DO Primary Care Provider Active Start: July 07, 2023 End: July 07, 2023 Kristine Oneill APRN ELECTRONICS RESEARCH ENGINEER-C Attending Provider Act duncan Start: July 07, 2023 End: July 07, 2023 Chronometer Tester Relationship Specialty Start Date End Date Tim Rolon DO [address] [place] [address] PCP - General Internal Medicine 09/19/22 Riana Chinchilla APRN-TURKEY ROLL MAKER [address] [phone] Certified Nurse Practitioner 11/08/22 Scheduled Active and [...] - Comment: mixed 1:1 w/Lido with epi 1:[id number]) ceFAZolin (ANCEF) 2 g in dextrose 100 mL premix IVPB (COMPLETED) 2 g, Intravenous, Administer over 30 Minutes, CHECKER BAKERY PRODUCTS TO PROCEDURE, 1 dose, Starting on Fri01/15/23 at 0758, Until Discontinued, Other, Surgical Prophylaxis, Initiate antibiotic administration 30-60 minutes prior to surgical incision and complete administration prior to surgical incision., Pre-op/Pre-Proc 0955 (Given - Provid er: Geraldo Marion, STRAIGHT EDGER-TAPROOM ATTENDANT) lidocaine-epinephrine 2 %-1:728020 injection (CANCELED) NEEDED, Starting on Fri01/15/23 at [...] Order-specific weight), Intravenous, Administer over 1 Hours, CHECKER BAKERY PRODUCTS TO PROCEDURE, 1 dose, Starting on Fri01/15/23 [...] PRN used in previous 12 hours.
Post-op/Post-Proc Goals (unrecognized section and content) Goals may be documented in a n alternate section FOR RECORDS PERTAINING TO PATIENTS WHO ARE [...] BE BASED ON THE PRIMARY CLINICAL RECORDS. [employer] provides no warranty or guarantee of the accuracy or completeness of information in this document.
[2023-09-14 07:07] LABS: Progesterone 12.9 ng/mL (.)
== END 2023-09-11 10:10 | disposition home or self-care (01) ==
LOC: LAB 10:10
PROVIDERS: PCP Internal Medicine; Visit Provider Obstetrics & Gynecology
DX: N97.0 Female infertility associated with anovulation (principal)
CPT/HCPCS: 36415; 84144

== ENCOUNTER 2023-10-13 14:12 | Outpatient (OUT) | payer OTHER, SELFPAY ==
[2023-10-14 04:10] LABS: Progesterone 8.3 ng/mL (.)
== END 2023-10-13 14:13 | disposition home or self-care (01) ==
LOC: LAB 14:12
PROVIDERS: PCP Internal Medicine; Visit Provider Obstetrics & Gynecology
DX: N97.0 Female infertility associated with anovulation (principal)
CPT/HCPCS: 36415; 84144

== ENCOUNTER 2023-10-20 20:35 | Outpatient (REF) | payer OTHER, SELFPAY ==
--- OUTSIDE RECORDS SUMMARY | 2023-10-20 20:39 | XMS_ITS | CCD ---
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 Name Role Phone JAMIL SMITH Referring Unavailable [...] Tim Rolon DO Primary Care Provider Raoul LEVYN-LACE AND TEXTILES RESTORER, Crystal G Unavailable Tim Rolon MD Primary Care Provider DONOVAN BURKS Attending Unavailable BALL, TIM Referring Unavailable RAOUL, CRYSTAL [...] Care Unavailable CORI HERNÁNDEZ Attending Unavailable Raoul [place] FORMER-LACE AND TEXTILES RESTORER, Riana G Unavailable DONOVAN BURKS Attending Unavailable MADONNA PARSONS Attending Unavailable Allergies Allergy Classification Reported Allergen(s) Allergy Type Date of Onset Reaction(s) Facility (9 sources) Seasonal allergy Propensity to adverse reactions to drug 7 Runny Nose, Congestion [facility] Work Phone: (2 sources) Pollen Propensity to adverse reactions 7 Runny nose [facility] (2 sources) Other Propensity to adverse reactions [address] [facility] Healthcare Medications Current Medications Medication Drug Class(es) [...] as needed Acetaminophen (TYLENOL) tablet 650 mg Calcium Carb-Cholecalciferol (CALCIUM + D3 PO) (1 source) take 600 mg by mouth once daily Calcium Carb-Cholecalciferol (CALCIUM + D3 PO) Take 600 mg by mouth daily. Active calcium carbonate 1500 mg / cholecalciferol 500 unt oral capsule (2 sources) Vitamin D Start: 2023 Calcium Carbonate-Vitamin D3 (Calcium 600 With Vitamin D3) 600 mg-12.5 mcg (500 unit) capsule Active CAP PO July 07, 2023 12:00am cloBAZam 20 mg oral tablet (14 sources) Benzodiazepine Start: 2022 End: 2024 take 1 tablet by mouth once daily Clobazam (Onfi) 20 mg tablet Active 20 MG PO Daily July 07, 2023 12:00am Start: 04-30-2021 End: 04-30-2022 take 1 tablet by mouth once daily at dinner cloBAZam 20 MG tablet Indications: Nonintractable epilepsy without status epilepticus, unspecified epilepsy type Take 1 tablet by mouth Daily (with dinner). 30 tablet 5 04/30/2021 04/30/2022 Active docosahexaenoic acid 200 mg oral capsule (2 sources) Start: 07-07-2023 Docosahexaenoic Acid ( Dha) 200 mg capsule Active MG PO July 07, 2023 12:00am doxycycline monohydrate 100 mg oral tablet (1 source) Tetracycline-cl ass Drug Start: 09-24-2023 take 100 mg by mouth twice daily Doxycycline Monohydrate Active 100 MG PO Twice daily 27 12September 24, 2023 12:00am escitalopram 20 mg oral tablet (1 source) Serotonin Reuptake Inhibitor Start: 04-30-2021 take 1 tablet by mouth once daily at dinner escitalopram 20 MG tablet Indications: Seizure disorder Take 1 tablet by mouth Daily (with dinner). 30 tablet 11 04/30/2021 Active folic acid 1 mg oral tablet (13 sources) Start: 07-07-2023 take 1 mg by [...] (6-Strn)) 10 billion cell -100 mg capsule (2 sources) Start: 07-07-2023 L.Ac,Bul,Par,Rha-B.Ani,Mehran-I nu (Probiotic Digest Supp [...] lamoTRIgine 50 mg extended release oral tablet (12 sources) Mood Stabil izer, Anti-e pilept ic [...] BEDTIME 90 tablet 0 10/21/2022 Active letrozole (10 sources) Aromatase Inhibitor Start: 07-07-2023 take 7.5 [...] 0 Active LORazepam 0.5 mg oral tablet (11 sources) Benzodiazepine Start: 07-07-19 take 0.5 mg by mouth once daily Lorazepam Active 0.5 MG PO Daily July 07, 2023 12:00am Start: 03-22-2022 End: 06-21-2023 LORazepam 0.5 MG tablet Amy cations: Anxiety disorder, unspecified type 1 tab up to three times a week as needed for anxiety 10 tablet 1 03/22/2022 06/21/2023 Discontinued Magnesium glycinate (4 sources) Start: 07-07-2023 Magnesium Glyc inate Active [...] Active medroxyPROGESTERone acetate 10 mg oral tablet (9 sources) Progestin Start: 07-07-2023 End: 07-07-2023 take 10 mg by mouth once daily Medroxyprogesterone Active 10 MG PO Daily July 07, 2023 2:44pm melatonin 3 mg oral tablet (14 sources) Start: 07-07-2023 take 3 mg by mouth once daily at bedtime Melatonin Active 3 MG PO Daily at bedtime July 07, 2023 12:00am Start: 03-22-2022 End: 02-14-2023 take 1 tablet by mouth once daily at bedtime Melatonin 3 MG tablet Indications: 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 Active metFORMIN hydrochloride 500 mg oral tablet (10 sources) Biguanide Start: 07-07-2023 take 500 mg [...] Take by mouth 0 Active Prenat MV-Min w/Sv-Hvmtqn-OH A ( COMPLETE PO) (6 sources) take 1 tablet by mouth once at bedtime Prenat MV-Min w/Cx-Djzefn-ONU ( COMPLETE PO) Take 1 tablet by mouth at bedtime. Active take 1 tablet by mouth once at b edtime Prenat MV-Min w/Lz-Qgteiq-KVM ( COMPLETE PO) Take 1 tablet by mouth at bedtime. 0 Active MV-Min-Fe Fum-FA-DHA ( 1 PO) (2 sources) MV-Min- Fe Fum-FA-DHA ( 1 PO) Take by mouth. 0 Active sertraline 50 mg oral tablet (15 sources) Serotonin Reuptake Inhibitor Start: 08-21-2023 take 1 tablet by mouth once daily Sertraline 50 MG tablet Take 1 tablet by mouth daily. 90 tablet 1 08/21/2023 Active Start: 07-07-2023 take 1 tablet by josh th at bedtime Sertraline 100 MG tablet Indications: Anxiety disorder, unspecified type Take 1 tablet by mouth at bedtime. 90 tablet 1 08/21/2023 Active Start: 05-28-2023 End: 08-21-2023 take 1.5 tablets [...] (PERCOCET) 5-325 MG per tablet 1 tablet amoxicillin 875 mg / clavulanate 125 mg oral tablet (3 sources) Penicillin-class Antibacterial Start: 07-07-2023 End: 09-24-2023 take 1 tablet by mouth twice daily Amoxicillin-Pot Clavulanate Discontinued 1 TAB PO Twice daily 14 7 2023 1:10pm September 24, 2023 10:30am etonogestrel 68 mg drug implant (1 source) [...] 10-28-2019 10-28-2019 Chronic Other upper respiratory infections (5 sources) Maxillary sinusitis; Translations: [Chronic maxillary sinusitis] [...] Test Name Value Interpretation Reference Range Facility Serum or plasma progesterone measurement (mass/volume)on 09-11-2023 Progesterone [Mass/Vol] 12.9 ng/mL . [facility] Comment on above: Follicular phase 0.1 - 0.9 Luteal phase 1.8 - 23.9 Ovulation phase 0.1 - 12.0 First trimester 11.0 - 44.3 Second trimester 25.4 - 83.3 Third trimester 58.7 - 214.0 Postmenopausal 0.0 - 0.1Performed at: [facility] [place] [id number] Director: Ino Dougherty PhD, Phone: [phone] Serum or plasma progesterone measurement (mass/volume)on 08-08-2023 Progesterone [Mass/Vol] 11.3 ng/mL . [facility] Comment on above: Follicular phase 0.1 - 0.9 Luteal phase 1.8 - 23.9 Ovulation phase 0.1 - 12.0 First trimester 11.0 - 44.3 Second trimester 25.4 - 83.3 Third trimester 58.7 - 214.0 Postmenopausal 0.0 - 0.1Performed at: [facility] [place], [place] [id number] Director: Ino Dougherty PhD, Phone: [phone] Serum or plasma progesterone measurement (mass/volume)on 07-09-2023 Progesterone [Mass/Vol] 16.6 ng/mL . [facility] Comment on above: Follicular phase 0.1 - 0.9 Luteal phase 1.8 - 23.9 Ovulation phase 0.1 - 12.0 First trimester 11.0 - 44.3 Second trimester 25.4 - 83.3 Third trimester 58.7 - 214.0 Postmenopausal 0.0 - 0.1Performed at: [employer] [place], [place] [id number] Director: Ino Dougherty PhD, Phone: [phone] No Panel Informationon 06-26 Human Chorionic Gonadotropin, Quant <1 mIU/mL [facility] Comment on above: 5-50 0.2-1 [id number] 0 1-2 MHDTG715-3,000 2-3 [id number],000 3-4 WEEKS1,000-50,000 4-5 WEEKS10,000-100,000 5-6 WEEKS15,000-200,000 6-8 WEEKS10,000-100,000 2-3 MONTHS Serum or plasma progesterone measurement (mass/volume)on 06-08-2023 Progesterone [Mass/Vol] 20.7 ng/mL . [facility] Comment on above: Follicular phase 0.1 - 0.9 Luteal phase 1.8 - 23.9 Ovulation phase 0.1 - 12.0 First trimester 11.0 - 44.3 Second trimester 25.4 - 83.3 Third trimester 58.7 - 214.0 Postmenopausal 0.0 - 0.1Performed at: [employer] [address] [place], [place] [id number] Director: Ino Dougherty PhD, Phone: [phone] Laboratory - Chemistry and C hemistry - challengeon 05-09-2023 Free T4 [Mass/Vol] 0.77 ng/dL 0.76-1.46 [facility] No Panel Informationon 05-08 Free Triiodothyronine 2.78 pg/mL 2.18-3.98 [facility] Serum or plasma progesterone measurement (mass/volume)on 05-09-2023 Progesterone [Mass/Vol] 19.3 ng/mL . [facility] Comment on above: Follicular phase 0.1 - 0.9 Luteal phase 1.8 - 23.9 Ovulation phase 0.1 - 12.0 First trimester 11.0 - 44.3 Second trimester 25.4 - 83.3 Third trimester 58.7 - 214.0 Postmenopausal 0.0 - 0.1Performed at: [facility] [address] [id number] Director: Ino Dougherty PhD, Phone: [phone] BETA HCG, URINE (POC DEVICE) on 01-15-2023 Beta HCG ( test) Ql (U) Negative Negative [facility] Interpretation and review of laboratory results Normal [facility] Test performed at address of the patient encounter. [facility] CARDIAC RHYTHM (SCANNED)on 03-17-2022 [facility] CBC AND ELECTRONIC DIFFon Basophils (Bld) [#/Vol] 0.05 10*3/uL 0.00 - 0.15 K/uL [facility] Basophils/100 WBC (Bld) 0.5 % [facility] Differential cell count method Nom (Bld) Electronic Differential [facility] Eosinophils (Bld) [#/Vol] 0.12 10*3/uL 0. 00 - 0.42 K/uL [facility] Eosinophils/100 WBC (Bld) 1.2 % [facility] Erythrocyte distribution width (RBC) [Ratio] 13.1 % 10.8 - 14.9 % [facility] Hematocrit (Bld) [Volume fraction] 42.5 % 34.9 - 44.3 % [facility] Hemoglobin (Bld) [Mass/Vol] 14.3 g/dL 11.4 - 15.2 g/dL [facility] Immature granulocytes (Bld) [#/Vol] K/uL NINF - 0.08 K/uL [facility] Immature granulocytes/100 WBC (Bld) 0.3 % [facility] Lymphocytes (Bld) [#/Vol] 3.42 10*3/uL 1. 16 - 3.51 K/uL [facility] Lymphocytes/100 WBC (Bld) 32.9 % [facility] MCH (RBC) [Entitic mass] 31.1 pg 25. 9 - 33.9 pg [facility] MCHC (RBC) [Mass/Vol] 33.6 g/dL 31.4 - 35.9 g/dL [facility] MCV (RBC) [Entitic vol] 92.4 fL 79.6 - 97.7 fL [facility] Monocytes (Bld) [#/Vol] 0.62 10*3/uL 0.22 - 0.87 K/uL [facility] Monocytes/100 WBC (Bld) 6.0 % O [facility] Neutrophils (Bld) [#/Vol] 6.14 10*3/uL 1. 64 - 7.28 K/uL [facility] Nucleated RBC/100 WBC (Bld) [Ratio] 0.0 % NINF [facility] Platelet mean volume (Bld) [Entitic vol] 10.8 fL 8.5 - 12.2 fL [facility] Platelets (Bld) [#/Vol] 326 10*3/uL 150 - 393 K/uL [facility] RBC (Bld) [#/Vol] 4.60 10*6/uL [facility] Segmented neutrophils/100 WBC (Bld) 59.1 % [facility] WBC (Bld) [#/Vol] 10.38 10*3/uL 3.99 - 11 .19 K/uL [facility] Basophils (Bld) [#/Vol] 0.05 10*3/uL Normal 0.00-0.15 [facility] Comment on above: Performed By: #### L [id number] #### [facility] (DEFAULT) [address] [place] [address] Basophils/100 WBC (Bld) 0.5 % Normal [facility] [place] Comment on above: Performed By: #### L [id number] #### [facility] (DEFAULT) [address] [place] [address] DIFF STATUS Electronic Differential Normal [facility] Comment on above: Performed By: #### L [id number] #### [facility] (DEFAULT) [address] [place] [address] Eosinophils (Bld) [#/Vol] 0.12 10*3/uL Normal 0.00-0.4 2 [facility] Comment on above: Performed By: #### L [id number] #### [facility] (DEFAULT) [address] [place] [address] Eosinophils/100 WBC (Bld) 1.2 % Normal [facility] Comment on above: Performed By: #### L [id number] #### [facility] (DEFAULT) [address] [place] [address] Hematocrit (Bld) [Volume fraction] 42.5 % Normal 34.9-44.3 [facility] Comment on above: Performed By: #### L [id number] #### [facility] (DEFAULT) [address] [place] [address] Hemoglobin (Bld) [Mass/Vol] 14.3 g/dL Normal 11.4-15.2 [facility] Comment on above: Performed By: #### L [id number] #### [facility] (DEFAULT) [address] [place] [address] Immature Grans % 0.3 % Normal [facility] Comment on above: Performed By: #### L [id number] #### [facility] (DEFAULT) [address] [place] [address] Immature Grans Absolute < Normal <=0.08 O [facility] [place] Comment on above: Performed By: #### L [id number] #### [facility] (DEFAULT) [address] [place] [address] Lymphocytes (Bld) [#/Vol] 3.42 10*3/uL Normal 1.16-3.5 1 [facility] Comment on above: Performed By: #### L [id number] #### [facility] (DEFAULT) [address] [address] Lymphocytes/100 WBC (Bld) 32.9 % Normal [facility] Comment on above: Performed By: #### L [id number] #### [facility] (DEFAULT) [address] [address] MCV (RBC) [Entitic vol] 92.4 fL Normal 79.6-97.7 [facility] [place] Comment on above: Performed By: #### L [id number] #### [facility] (DEFAULT) [address] [address] Mean Cell Hgb 31.1 pg Normal 25.9-33.9 [facility] Comment on above: Performed By: #### L [id number] #### [facility] (DEFAULT) [address] [address] Mean Cell Hgb Conc 33.6 g/dL Normal 31.4-35.9 [facility] Comment on above: Performed By: #### L [id number] #### [facility] (DEFAULT) [address] [address] Monocytes (Bld) [#/Vol] 0.62 10*3/uL Normal 0.22-0.87 [facility] Comment on above: Performed By: #### L [id number] #### [facility] (DEFAULT) [address] [address] Monocytes/100 WBC (Bld) 6.0 % Normal [facility] [place] Comment on above: Performed By: #### L [id number] #### [facility] (DEFAULT) [address] [address] Nucleated RBC 0.0 /100 WBC Normal <=0.2 [facility] Comment on above: Performed By: #### L [id number] #### [facility] (DEFAULT) [address] [place] [address] Platelet mean volume (Bld) [Entitic vol] 10.8 fL Normal 8.5-12.2 [facility] Comment on above: Performed By: #### L [id number] #### [facility] (DEFAULT) [address] [place] [address] Platelets (Bld) [#/Vol] 326 10*3/uL Normal 150-393 [facility] Comment on above: Performed By: #### L [id number] #### [facility] (DEFAULT) [address] [place] [address] RBC (Bld) [#/Vol] 4.60 10*6/uL Normal 3.91-5.04 [facility] Comment on above: Performed By: #### L [id number] #### [facility] (DEFAULT) [address] [place] [address] RBC Distribution 13.1 % Normal 10.8-14.9 [facility] Comment on above: Performed By: #### L [id number] #### [facility] (DEFAULT) [address] [place] [address] Segs + Bands Auto 59.1 % Normal [facility] Comment on above: Performed By: #### L [id number] #### [facility] (DEFAULT) [address] [place] [address] Segs + Bands,Absolute Auto 6.14 K/uL Normal 1.64-7.28 [facility] Comment on above: Performed By: #### L [id number] #### [facility] (DEFAULT) [address] [place] [address] WBC (Bld) [#/Vol] 10.38 10*3/uL Normal 3.99-11.19 [facility] Comment on above: Performed By: #### L [id number] #### [facility] (DEFAULT) [address] [place] [address] CMPN WITHOUT GLUCOSEon 01-09 Albumin [Mass/Vol] 4.9 g/dL Normal 3.5-5.0 [facility] Comment on above: Performed By: #### C MPNG #### [facility] (DEFAULT) [address] [address] ALP [Catalytic activity/Vol] 35 U/L Normal 32-126 [facility] Comment on above: Performed By: #### C MPNG #### [facility] (DEFAULT) [address] [address] ALT [Catalytic activity/Vol] 19 U/L Normal 9-48 [facility] Comment on above: Performed By: #### C MPNG #### [facility] (DEFAULT) [address] [address] Anion gap [Moles/Vol] 13 mmol/L Normal 7-17 [facility] Comment on above: Performed By: #### C MPNG #### [facility] (DEFAULT) [address] [address] AST [Catalytic activity/Vol] 18 U/L Normal 10-39 [facility] Comment on above: Performed By: #### C MPNG #### [facility] (DEFAULT) [address] [address] Bilirubin [Mass/Vol] 0.3 mg/dL Normal <1.5 [facility] Comment on above: Performed By: #### C MPNG #### [facility] (DEFAULT) [address] [address] Calcium [Mass/Vol] 9.2 mg/dL Normal 8.6-10.5 [facility] Comment on above: Performed By: #### C MPNG #### [facility] (DEFAULT) [address] [address] Chloride [Moles/Vol] 102 mmol/L Normal 98-108 [facility] Comment on above: Performed By: #### C MPNG #### [facility] (DEFAULT) [address] [place] [address] CO2 [Moles/Vol] 26 mmol/L Normal 21-31 [facility] Comment on above: Performed By: #### C MPNG #### [facility] (DEFAULT) [address] [place] [address] Creatinine [Mass/Vol] 0.64 mg/dL Normal 0.50-1.20 [facility] Comment on above: Performed By: #### C MPNG #### [facility] (DEFAULT) [address] [place] [address] eGFR, CKD-EPI, Female > Normal >=60 [facility] Comment on above: Result Comment: Repo rted eGFR is based on the CKD-EPI 2020 equation using creatinine, age, and sex. Performed By: #### C MPNG #### [facility] (DEFAULT) [address] [place] [address] Potassium [Moles/Vol] 4.0 mmol/L Normal 3.5-5.0 [facility] Comment on above: Performed By: #### C MPNG #### [facility] (DEFAULT) [address] [place] [address] Protein [Mass/Vol] 7.9 g/dL Normal 6.4-8.3 [facility] Comment on above: Performed By: #### C MPNG #### [facility] (DEFAULT) [address] [place] [address] Sodium [Moles/Vol] 137 mmol/L Normal 135-145 [facility] Comment on above: Performed By: #### C MPNG #### [facility] (DEFAULT) [address] [place] [address] Urea nitrogen [Mass/Vol] 12 mg/dL Normal 7-25 [facility] Comment on above: Performed By: #### C MPNG #### [facility] (DEFAULT) [address] [place] [address] Urea nitrogen/Creatinine [Mass ratio] 19 mg/mg Normal [facility] Comment on above: Performed By: #### C MPNG #### [facility] (DEFAULT) [address] [place] [address] HCG ( test) Ql (U)O rdered By: Jamil Santos on 01-09-2023 Beta HCG ( test) Ql Negative Negative [facility] Interpretation and review of laboratory results [facility] HCG QUALITATIVE, URINEon Beta HCG ( test) Ql (U) Negative Normal Negative [facility] Comment on above: Performed By: #### U HCG #### [facility] (DEFAULT) [address] [place] [address] LAMOTRIGINE LEVELon 01-10-20 23 Lamotrigine, S 4.3 mcg/mL Normal 3.0-15.0 [facility] Comment on above: Result Comment: ADDITIONAL INFORMATION This test was developed and its performance characteristics determined by [facility] in a manner consistent with CLIA requirements. This test has not been cleared or approved by the U.S. Food and Drug Administration. Test Performed by: [facility] [address] [place] [address] Data Management: Juno Vega M.D. Ph.D.; CLIA# [id number] Performed By: #### Y LAMO #### [facility] (DEFAULT) [address] [place] [address] PT,INR,PTTon 01-09-2023 aPTT Coag (PPP) [Time] 31.1 s OS [facility] INR Coag (Bld) [Relative time] 1.0 {INR} 0.9 - 1.1 [facility] Interpretation and review of laboratory results Normal [facility] PT Coag (PPP) [Time] 13.0 s [facility] aPTT Coag (Bld) [Time] 31.1 s Normal 24.0-34.3 [facility] Comment on above: Performed By: #### P TPTT #### [facility] (DEFAULT) [address] [place] [address] INR Coag (PPP) [Relative time] 1.0 {INR} Normal 0.9-1.1 [facility] Comment on above: Performed By: #### P TPTT #### [facility] (DEFAULT) [address] [place] [address] PT Coag (PPP) [Time] 13.0 s Normal 11.9-14.2 [facility] Comment on above: Performed By: #### P TPTT #### [facility] (DEFAULT) [address] [place] [address] SCREEN: MRSA/MSSAOrdered By: Alexandra Slater on 01-09-2023 Interpretation and review of laboratory results Abnormal [facility] Methicillin Resistant S. Aureus By Pcr Negative Negative [facility] Staphylococcus Aureus By Pcr Positive Abnormal Negative [facility] This test was performed using a [...] by the Clinical Microbiology Laboratory at [facility]. It has not been cleared or approved by the FDA.The laboratory is regulated under CLIA as qualified to perform high-complexity testing. This test is used for clinical purposes. It should not be regarded as investigational or for research. [facility] SCREEN: MRSA/MSSAon 01-10-20 Methicillin Resistant S. Aureus By Pcr Negative Normal Negative [facility] Comment on above: Order Comment: This [...] by the Clinical Microbiology Laboratory at [facility]. It has not been cleared or approved by the FDA.The laboratory is regulated under CLIA as qualified to perform high-complexity testing. This test is used for clinical purposes. It should not be regarded as investigational or for research. Performed By: #### S CRSB #### [facility] (DEFAULT) [address] [address] Staphylococcus Aureus By Pcr Positive Abnormal Negative [facility] Comment on above: Order Comment: This [...] by the Clinical Microbiology Laboratory at [facility]. It has not been cleared or approved by the FDA.The laboratory is regulated under CLIA as qualified to perform high-complexity testing. This test is used for clinical purposes. It should not be regarded as investigational or for research. Performed By: #### S CRSB #### [facility] (DEFAULT) [address] [place] [address] VITAMIN D (25-HYDROXY,TOTAL) on 01-09-2023 25-OH Vitamin D Total 35.2 ng/mL Normal 30.0-100.0 [facility] Comment on above: Order Comment: Vitam in D values have been shown to be falsely decreased in lipemic samples and should be interpreted with caution. Result Comment: <10 Deficiency 10-29 Insufficiency 30-100 Optimal Level >100 Possible Toxicity Performed By: #### D 25OH #### [facility] (DEFAULT) [address] [place] [id number] XR Cervical and thoracic and lumbar spine [...] IMPRESSION: Intact vagus nerve stimulator as described. [facility] Radiology Study observation (narrative) [facility] XR Cervical and thoracic and lumbar spine ViewsOrdered By: Alice Crespo on 01-09-2023 [facility] Work Phone: XR STIMULATOR/INTRATHECAL PU MP [...] Intact vagus nerve stimulator as described. Normal [facility] PROGESTERONEon 05-24-2022 Progesterone 5.5 ng/mL Normal [facility] Comment on above: Result Comment: Foll icular phase 0.1 - 0.9 Luteal phase 1.8 - 23.9 Ovulation phase 0.1 - 12.0 First trimester 11.0 - 44.3 Second trimester 25.4 - 83.3 Third trimester 58.7 - 214.0 Postmenopausal 0.0 - 0.1 Performed By: #### P DANIEL #### [facility] [address] [place] [address] Dr. Nicol Oswald LAMOTRIGINEon 05-02-2022 Lamotrigine, Serum 4.7 ug/mL Normal 2.0-20.0 [facility] Comment on above: Result Comment: Dete ction Limit = 1.0 Performed By: #### P DANIEL #### [facility] [address] [place] [address] Dr. Nicol Oswald CBC AUTO DIFFon 04-30-2022 BASO # 0.0 103/ul Normal 0.0-0.1 [facility] Comment on above: Performed By: #### C BC #### [facility] [address] [place] [address] Dr. Nicol Oswald Basophils/100 WBC (Bld) 0.4 % Normal 0.2-2.0 [facility] Comment on above: Performed By: #### C BC #### [facility] [address] [place] [address] Dr. Nicol Oswald EO # 0.2 103/ul Normal 0.0-0.7 [facility] Comment on above: Performed By: #### C BC #### [facility] [address] [place] [address] Dr. Nicol Oswald Eosinophils/100 WBC (Bld) 1.9 % Normal 0.9-7.0 [facility] Comment on above: Performed By: #### C BC #### [facility] [address] [place] [address] Dr. Nicol Oswald Erythrocyte distribution width (RBC) [Ratio] 12.8 % Normal 11.0-15.0 [facility] Comment on above: Performed By: #### C BC #### [facility] [address] [place] [address] Dr. Nicol Oswald Hematocrit (Bld) [Volume fraction] 40.4 % Normal 36.0-48.0 [facility] Comment on above: Performed By: #### C BC #### [facility] [address] [place] [address] Dr. Nicol Oswald Hemoglobin (Bld) [Mass/Vol] 13.6 g/dL Normal 12.0-16.0 [facility] Comment on above: Performed By: #### C BC #### [facility] [address] [place] [address] Dr. Nicol Oswald IG # 0.03 10e3/ul Normal 0.00-0.03 [facility] Comment on above: Performed By: #### C BC #### [facility] [address] [place] [address] Dr. Nicol Oswald IG % 0.4 % Normal 0.0-0.5 [facility] Comment on above: Performed By: #### C BC #### [facility] [address] [place] [address] Dr. Nicol Oswald LYMPH # 3.1 103/ul Normal 1.2-3.8 [facility] Comment on above: Performed By: #### C BC #### [facility] [address] [place] [address] Dr. Nicol Oswald Lymphocytes/100 WBC (Bld) 36.4 % Normal 20.5-60.0 [facility] Comment on above: Performed By: #### C BC #### [facility] [address] [place] [address] Dr. Nicol Oswald MANUAL DIFF REQ NO Normal [facility] Comment on above: Performed By: #### C BC #### [facility] [address] [address] [address] Nicol Oswald MCH (RBC) [Entitic mass] 31.0 pg Normal 26.7-34.0 [facility] Comment on above: Performed By: #### C BC #### [facility] [address] [place] [address] Dr. Nicol Oswald MCHC (RBC) [Mass/Vol] 33.7 g/dL Normal 29.9-35.2 [facility] Comment on above: Performed By: #### C BC #### [facility] [address] [place] [address] Dr. Nicol Oswald MCV (RBC) [Entitic vol] 92.0 fL Normal 81.0-99.0 [facility] Comment on above: Performed By: #### C BC #### [facility] [address] [place] [address] Dr. Nicol Oswald MONO # 0.7 103/ul Normal 0.3-0.8 [facility] Comment on above: Performed By: #### C BC #### [facility] [address] [place] [address] Dr. Nicol Oswald Monocytes/100 WBC (Bld) 7.7 % Normal 1.7-12.0 [facility] Comment on above: Performed By: #### C BC #### [facility] [address] [place] [address] Dr. Nicol Oswald NEUT # 4.5 103/ul Normal 1.4-6.5 [facility] Comment on above: Performed By: #### C BC #### [facility] [address] [place] [address] Dr. Nicol Oswald Neutrophils/100 WBC (Bld) 53.2 % Normal 43.0-75.0 [facility] Comment on above: Performed By: #### C BC #### [facility] [address] [place] [address] Dr. Nicol Oswald Platelet mean volume (Bld) [Entitic vol] 11.0 fL Normal 9.5-13.5 [facility] Comment on above: Performed By: #### C BC #### [facility] [address] [place] [address] Dr. Nicol Oswald PLT 282 103/ul Normal 150-450 [facility] Comment on above: Performed By: #### C BC #### [facility] [address] [place] [address] Dr. Nicol Oswald RBC 4.39 106/ul Normal 4.20-5.40 [facility] Comment on above: Performed By: #### C BC #### [facility] [address] [place] [address] Dr. Nicol Oswald WBC 8.4 103/ul Normal 4.0-11.0 [facility] Comment on above: Performed By: #### C BC #### [facility] [address] [place] [address] Dr. Nicol Oswald LIVER PROFILEon 04-30-2022 Albumin [Mass/Vol] 4.1 g/dL Normal 3.4-5.0 [facility] Comment on above: Performed By: #### P DANIEL #### [facility] [address] [place] [address] Dr. Nicol Oswald Albumin/Globulin [Mass ratio] 1.2 {ratio} Normal [facility] Comment on above: Performed By: #### P DANIEL #### [facility] [address] [place] [address] Dr. Nicol Oswald ALP [Catalytic activity/Vol] 52 U/L Normal 46-116 [facility] Comment on above: Performed By: #### P DANIEL #### [facility] [address] [place] [address] Dr. Nicol Oswald ALT [Catalytic activity/Vol] 23 U/L Normal 14-59 [facility] Comment on above: Performed By: #### P DANIEL #### [facility] [address] [place] [address] Dr. Nicol Oswald AST [Catalytic activity/Vol] 17 U/L Normal 15-37 [facility] Comment on above: Performed By: #### P DANIEL #### [facility] [address] [address] [address] Nicol Oswald BILI, CONJUGATED 0.1 mg/dL Normal 0.0-0.2 [facility] Comment on above: Performed By: #### P ROGES #### [facility] [address] [address] [address] Nicol Oswald Bilirubin [Mass/Vol] 0.2 mg/dL Normal 0.2-1.0 [facility] Comment on above: Performed By: #### P ROGES #### [facility] [address] [address] [address] Nicol Oswald Globulin (S) [Mass/Vol] 3.4 g/dL Normal [facility] Comment on above: Performed By: #### P ROGLYNDA #### [facility] [address] [place] [address] Dr. Nicol Oswald Protein [Mass/Vol] 7.5 g/dL Normal 6.4-8.2 [facility] Comment on above: Performed By: #### P ROGES #### [facility] [address] [place] [address] Dr. Nicol Oswald PROF CHEM 8 (BAS METB)on Anion gap [Moles/Vol] 8.5 mmol/L Normal [facility] Comment on above: Performed By: #### P ROGES #### [facility] [address] [place] [address] Dr. Nicol Oswald Calcium [Mass/Vol] 9.4 mg/dL Normal 8.5-10.1 [facility] Comment on above: Performed By: #### P ROGES #### [facility] [address] [address] [address] Nicol Oswald Chloride [Moles/Vol] 102 mmol/L Normal 98-107 [facility] Comment on above: Performed By: #### P ROGES #### [facility] [address] [place] [address] Dr. Nicol Oswald CO2 [Moles/Vol] 30.4 mmol/L Normal 21.0-32.0 [facility] Comment on above: Performed By: #### P ROGES #### [facility] [address] [address] [address] Nicol Oswald Creatinine [Mass/Vol] 0.57 mg/dL Normal 0.55-1.02 [facility] Comment on above: Performed By: #### P JASONES #### [facility] [address] [address] [address] Nicol Oswald EGFR-AF ITALIAN >60 Normal >=60 [facility] Comment on above: Performed By: #### P ROGES #### [facility] [address] [address] [address] Nicol Oswald EGFR-NON AF ITALIAN >60 Normal >=60 [facility] Comment on above: Performed By: #### P ROGLYNDA #### [facility] [address] [address] [address] Nicol Oswald Glucose [Mass/Vol] 89 mg/dL Normal 74-106 [facility] Comment on above: Performed By: #### P DANIEL #### [facility] [address] [address] [address] Nicol Oswald Potassium [Moles/Vol] 3.9 mmol/L Normal 3.5-5.1 [facility] Comment on above: Performed By: #### P DANIEL #### [facility] [address] [address] [address] Nicol Oswald Sodium [Moles/Vol] 137 mmol/L Normal 136-145 [facility] Comment on above: Performed By: #### P ROGLYNDA #### [facility] [address] [address] [address] Nicol Oswald Urea nitrogen [Mass/Vol] 10.0 mg/dL Normal 7.0-18.0 [facility] Comment on above: Performed By: #### P DANIEL #### [facility] [address] [address] [address] Nicol Oswald Urea nitrogen/Creatinine [Mass ratio] 17.5 mg/mg Normal [facility] Comment on above: Performed By: #### P DANIEL #### [facility] [address] [address] [address] Nicol Oswald ESTROGENon 04-19-2022 Estrogens, Total 124 pg/mL Normal [facility] Comment on above: Result Comment: Prep ubertal < 40 Female Cycle: 1-10 Days 16 - 328 11-20 Days 34 - 501 21-30 Days 48 - 350 Post-Menopausal 40 - 244 Performed By: #### Elli ESPINAL #### [facility] [address] [address] [address] Nicol Oswald DHEA SERUMon 04-18-2022 Dehydroepiandrosterone (DHEA) 371 ng/dL Normal 31-701 [facility] Comment [...] 701 Performed By: #### Tenzin SANCHEZ #### [facility] [address] [address] [address] Nicol Oswald DHEA-SULFATEon 04-16-2022 DHEA-Sulfate 371.0 ug/dL Normal 84.8-378.0 [facility] Comment on above: Performed By: #### Tenzin SANCHEZ #### [facility] [address] [place] [address] Dr. Nicol Oswald FSHon 04-16-2022 FSH 5.6 mIU/mL Normal [facility] Comment on above: Result Comment: Adul t Female: Follicular phase 3.5 - 12.5 Ovulation phase 4.7 - 21.5 Luteal phase 1.7 - 7.7 Postmenopausal 25.8 - 134.8 Performed By: #### Tenzin SANCHEZ #### [facility] [address] [place] [address] Dr. Nicol Oswald LUTEINIZING HORMONE (LH)on 0 04-16-2022 LH 12.9 mIU/mL Normal [facility] Comment on above: Result Comment: Adul t Female: Follicular phase 2.4 - 12.6 Ovulation phase 14.0 - 95.6 Luteal phase 1.0 - 11.4 Postmenopausal 7.7 - 58.5 Performed By: #### P ROGES #### [facility] [address] [place], [place] [address] Dr. Nicol Oswald PROGESTERONEon 04-16-2022 Progesterone 0.2 ng/mL Normal [facility] Comment on above: Result Comment: Foll icular phase 0.1 - 0.9 Luteal phase 1.8 - 23.9 Ovulation phase 0.1 - 12.0 First trimester 11.0 - 44.3 Second trimester 25.4 - 83.3 Third trimester 58.7 - 214.0 Postmenopausal 0.0 - 0.1 Performed By: #### P DANIEL #### [facility] [address], [place] [address] Dr. Nicol Oswald PROLACTINon 04-16-2022 Prolactin 7.1 ng/mL Normal 4.8-23.3 [facility] Comment on above: Performed By: #### P ROLAC #### [facility] [address] [place], [place] [address] Dr. Nicol Oswald US PELVIS AND TRANSVAGon [...] Date: 2022-04-16 08:48 Normal [facility] CBC AUTO DIFFon 04-15-2022 BASO # 0.0 103/ul Normal 0.0-0.1 [facility] Comment on above: Performed By: #### C BC #### [facility] [address] [place] [address] Dr. Nicol Oswald Basophils/100 WBC (Bld) 0.5 % Normal 0.2-2.0 [facility] Comment on above: Performed By: #### C BC #### [facility] [address] [place] [address] Dr. Nicol Oswald EO # 0.2 103/ul Normal 0.0-0.7 [facility] Comment on above: Performed By: #### C BC #### [facility] [address] [place] [address] Dr. Nicol Oswald Eosinophils/100 WBC (Bld) 2.1 % Normal 0.9-7.0 [facility] Comment on above: Performed By: #### C BC #### [facility] [address] [place] [address] Dr. Nicol Oswald Erythrocyte distribution width (RBC) [Ratio] 12.5 % Normal 11.0-15.0 [facility] Comment on above: Performed By: #### C BC #### [facility] [address] [place] [address] Dr. Nicol Oswald Hematocrit (Bld) [Volume fraction] 44.7 % Normal 36.0-48.0 [facility] Comment on above: Performed By: #### C BC #### [facility] [address] [place] [address] Dr. Nicol Oswald Hemoglobin (Bld) [Mass/Vol] 14.3 g/dL Normal 12.0-16.0 [facility] Comment on above: Performed By: #### C BC #### [facility] [address] [place] [address] Dr. Nicol Oswald IG # 0.01 10e3/ul Normal 0.00-0.03 [facility] Comment on above: Performed By: #### C BC #### [facility] [address] [place] [address] Dr. Nicol Oswald IG % 0.1 % Normal 0.0-0.5 [facility] Comment on above: Performed By: #### C BC #### [facility] [address] [place] [address] Dr. Nicol Oswald LYMPH # 2.0 103/ul Normal 1.2-3.8 [facility] Comment on above: Performed By: #### C BC #### [facility] [address] [place] [address] Dr. Nicol Oswald Lymphocytes/100 WBC (Bld) 26.0 % Normal 20.5-60.0 [facility] Comment on above: Performed By: #### C BC #### [facility] [address] [place] [address] Dr. Nicol Oswald MANUAL DIFF REQ NO Normal [facility] Comment on above: Performed By: #### C BC #### [facility] [address] [place] [address] Dr. Nicol Oswadl MCH (RBC) [Entitic mass] 30.8 pg Normal 26.7-34.0 [facility] Comment on above: Performed By: #### C BC #### [facility] [address] [place] [address] Dr. Nicol Oswald MCHC (RBC) [Mass/Vol] 32.0 g/dL Normal 29.9-35.2 [facility] Comment on above: Performed By: #### C BC #### [facility] [address] [place] [address] Dr. Nicol Oswald MCV (RBC) [Entitic vol] 96.3 fL Normal 81.0-99.0 [facility] Comment on above: Performed By: #### C BC #### [facility] [address] [place] [address] Dr. Nicol Oswald MONO # 0.6 103/ul Normal 0.3-0.8 [facility] Comment on above: Performed By: #### C BC #### [facility] [address] [place] [address] Dr. Nicol Oswald Monocytes/100 WBC (Bld) 7.3 % Normal 1.7-12.0 [facility] Comment on above: Performed By: #### C BC #### [facility] [address] [place] [address] Dr. Nicol Oswald NEUT # 4.9 103/ul Normal 1.4-6.5 [facility] Comment on above: Performed By: #### C BC #### [facility] [address] [place] [address] Dr. Nicol Oswald Neutrophils/100 WBC (Bld) 64.0 % Normal 43.0-75.0 [facility] Comment on above: Performed By: #### C BC #### [facility] [address] [place] [address] Dr. Nicol Oswald Platelet mean volume (Bld) [Entitic vol] 11.3 fL Normal 9.5-13.5 [facility] Comment on above: Performed By: #### C BC #### [facility] [address] [place] [address] Dr. Nicol Oswald PLT 302 103/ul Normal 150-450 [facility] Comment on above: Performed By: #### C BC #### [facility] [address] [place] [address] Dr. Nicol Oswald RBC 4.64 106/ul Normal 4.20-5.40 [facility] Comment on above: Performed By: #### C BC #### [facility] [address] [place] [address] Dr. Nicol Oswald WBC 7.7 103/ul Normal 4.0-11.0 [facility] Comment on above: Performed By: #### C BC #### [facility] [address] [place] [address] Dr. Nicol Oswald FREE T4on 04-15-2022 Free T4 [Mass/Vol] 0.80 ng/dL Normal 0.76-1.46 [facility] Comment on above: Performed By: #### F T4 #### [facility] [address] [place] [address] Dr. Nicol Oswald GLYCOHEMOGLOBIN A1Con 2022 ADA RECOMMENDATION SEE BELOW Normal [facility] Comment on above: Result Comment: ADA RECOMMENDED LIMIT 4.0 - 6.0 ADA THERAPEUTIC TARGET < 7.0 ACTION SUGGESTED > 7.0 Performed By: #### A 1C #### [facility] [address] [place] [address] Dr. Nicol Oswald Glucose [Mass/Vol] 114 mg/dL Normal [facility] Comment on above: Performed By: #### A 1C #### [facility] [address] [place] [address] Dr. Nicol Oswald HbA1c (Bld) [Mass fraction] 5.6 % Normal 4.5-6.2 [facility] Comment on above: Performed By: #### A 1C #### [facility] [address] [place] [address] Dr. Nicol Oswald PREG QUANT HCGon 04-15-2022 HCG QUANT <1 Normal [facility] Comment on above: Performed By: #### P REGQNT, TSH #### [facility] [address] [place] [address] Dr. Nicol Oswald HCG RANGE SEE BELOW Normal [facility] Comment on above: Result Comment: 5-50 0.2-1 WEEK 50-500 1-2 WEEKS 100-5,000 2-3 WEEKS 500-10,000 3-4 WEEKS 1,000-50,000 4-5 WEEKS 10,000-100,000 5-6 WEEKS 15,000-200,000 6-8 WEEKS 10,000-100,000 2-3 MONTHS Performed By: #### P REGQNT, TSH #### [facility] [address] [place] [address] Dr. Nicol Oswald TSHon 04-15-2022 TSH 1.312 uIU/mL Normal 0.358-3.740 [facility] Comment on above: Performed By: #### P REGQNT, TSH #### [facility] [address] [place] [address] Dr. Nicol Oswald PAP ACOG PANEL 2: 21 to 29on 08-31-2021 . . Normal [facility] Comment on above: Performed By: #### P JASONES #### [facility] [address] [address] [address] Nicol Oswald Age Gdln ACOG Testing 21-29 Normal [facility] Comment on above: Performed By: #### P ROGES #### [facility] [address] [address] [address] Nicol Oswald DIAGNOSIS: Comment Normal [facility] Comment on above: Result Comment: NEGA TIVE FOR INTRAEPITHELIAL LESION OR MALIGNANCY. THIS SPECIMEN WAS RESCREENED PART OF OUR ROLL CUTTING OPERATOR PROGRAM. Performed By: #### P ROGES #### [facility] [address] [address] [address] Nicol Oswald Methodology: Comment [facility] Comment on above: Result Comment: This liquid based ThinPrep(R) pap test was screened with the use of an image guided system. Performed By: #### P DANIEL #### [facility] [address] [place] [address] Dr. Nicol Oswald Note: Comment Normal [facility] [...] By: #### P DANIEL #### [facility] [address] [place] [address] Dr. Nicol Oswald Performed by: Comment Normal [facility] Comment on above: Result Comment: Mireille Blanco, Groundman/Lineman (ASCP) Performed By: #### P DANIEL #### [facility] [address] [place] [address] Dr. Nicol Oswald QC reviewed by: Comment Normal [facility] Comment on above: Result Comment: Tahira Roque Groundman/Lineman (ASCP) Performed By: #### P ROGES #### [facility] [address] [place] [address] Dr. Nicol Oswald Reflex Criteria: Comment [facility] Comment on above: Result Comment: The HPV DNA reflex criteria were not met with this specimen result therefore, no HPV testing was performed. . Performed By: #### P DANIEL #### [facility] [address], [place] [address] Dr. Nicol Oswald Specimen adequacy: Comment Normal [facility] Comment on above: Result Comment: Sati sfactory for evaluation. Endocervical and/or squamous metaplastic cells (endocervical component) are present. Performed By: #### P DANIEL #### [facility] [address] [address] [address] Nicol Oswald CBC Auto Diff Reflex Manualo n 02-18-2019 Automated Absolute Neutrophil 5.73 10*3/mm3 Normal [facility] Comment on above: Result Comment: Auto mated Absolute Neutrophil Count (ANC) is directly measured using a hematology instrument. ANC determined from manual differential cell count may differ. No [facility] reference range has been validated for this assay. Performed By: #### C D #### [place] [address] Basophil 0.5 % Normal 0.0-1.0 [facility] Comment on above: Performed By: #### C D #### [place] [address] Differential Type Automated Normal [facility] Comment on above: Performed By: #### C D #### [place] [address] Eosinophil 1.6 % Normal 1.0-4.0 [facility] Comment on above: Performed By: #### C D #### [place] [address] Erythrocyte distribution width (RBC) [Ratio] 13.4 % Normal 10-14.1 [facility] Comment on above: Performed By: #### C D #### [place] [address] Lymphocyte 22.6 % Low 24.0-44.0 [facility] Comment on above: Performed By: #### C D #### [place] [address] MCH (RBC) [Entitic mass] 30.7 pg Normal 26-34 [facility] Comment on above: Performed By: #### C D #### Performed at [address] [address] MCHC (RBC) [Mass/Vol] 33.2 % Normal 31.0-37.0 [facility] Comment on above: Performed By: #### C D #### Performed at [address] [address] MCV (RBC) [Entitic vol] 92.4 fL Normal 80-100 [facility] Comment on above: Performed By: #### C D #### [place] [address] Monocyte 8.2 % High 1.0-7.0 [facility] Comment on above: Performed By: #### C D #### [place] [address] Neutrophil 67.1 % Normal 41.0-77.0 [facility] Comment on above: Performed By: #### C D #### [place] [address] Platelet mean volume (Bld) [Entitic vol] 11.5 fL Normal 9.3-13.0 [facility] Comment on above: Performed By: #### C D #### [place] [address] Platelets (Bld) [#/Vol] 268 10*3/uL Normal 140-440 [facility] Comment on above: Performed By: #### C D #### Performed at [address] [address] RBC (Bld) [#/Vol] 4.60 10*6/uL Normal 4.0-5.2 [facility] Comment on above: Performed By: #### C D #### Performed at [address] [address] WBC (Bld) [#/Vol] 8.6 10*3/uL Normal 4.5-11 [facility] Comment on above: Performed By: #### C D #### [place] [address] Comprehensive Metabolic Pane mehran 02-18-2019 Albumin [Mass/Vol] 4.7 g/dL Normal 3.4-5.2 [facility] ALP [Catalytic activity/Vol] 47 U/L Low 50-136 [facility] ALT [Catalytic activity/Vol] 32 U/L Normal <40 [facility] AST [Catalytic activity/Vol] 29 U/L Normal 15-50 [facility] Bilirubin Ql (U) 0.2 mg/dL Normal 0.1-1.0 [facility] Calcium [Mass/Vol] 9.8 mg/dL Normal 8-10.5 [facility] Chloride [Moles/Vol] 104 mmol/L Normal 95-106 [facility] CO2 [Moles/Vol] 25 mmol/L Normal 24-35 [facility] Creatinine [Mass/Vol] 0.52 mg/dL Normal 0.5-1 [facility] Glucose [Mass/Vol] 135 mg/dL High 60-115 [facility] Potassium [Moles/Vol] 4.5 mmol/L Normal 3.7-5.3 [facility] Protein [Mass/Vol] 8.0 g/dL Normal 6.4-8.4 [facility] Sodium [Moles/Vol] 140 mmol/L Normal 135-145 [facility] Urea nitrogen [Mass/Vol] 15 mg/dL Normal 5-18 [facility] Valproic Acidon 02-18-2019 Valproic Acid 47.1 ug/mL Low 50.0-100.0 [facility] PAP, THIN PREP WITH IMAGINGo n 06-29-2018 PAP, THIN PREP WITH IMAGING Normal [facility] Comment on above: Result Comment: INTE RPRETATION Thin Prep Image-Guided Pap Test (Cervical/Endocervical) NEGATIVE FOR INTRAEPITHELIAL LESION /MALIGNANCY Satisfactory for evaluation (Endocervical/transformation zone component present) [facility] [place]/06/27/2018 The Pap test is a screening test, [...] 05/18/18 ICD-CM DIAGNOSIS CODE(S) Z01.419 [facility] For Credit Analyst Exam (general) (routine) W/o Abn Findings * EFFECTIVE 06/08/2018 * * CLINICAL CHEMISTRY PLATFORM CHANGES ARE ASSOCIATED WITH * * REFERENCE RANGE CHANGES FOR A NUMBER OF ANALYTES. PLEASE * * REVIEW REFERENCE INTERVALS CAREFULLY * [facility] [address] [place] [address] CLIA No. [id number] CAP Accreditation No. [id number] Furnace Mechanic: Johnson Garland M.D. [facility] Accession Number: [id number] Performed By: #### P L PAP W/IMAGE #### [address] [id number] Nucleic-Acid Probe-Endoce rvical Swabon 06-24-2018 CT Nucleic-Acid Probe-Endocervical Swab Negative Normal NEGATIVE [facility] Comment on above: Performed By: #### G C Amp Endocerv, CT Amp Endocerv #### [address] [id number] Age at specimen collection = Normal [facility] Comment on above: Performed By: #### G C Amp Endocerv, CT Amp Endocerv #### [address] [phone] Performed By: #### P L PAP W/IMAGE #### [facility] [address] [place], [place] [id number] GC Nucleic-Acid Probe-Endoce rvical Swabon 06-24-2018 GC Nucleic-Acid Probe-Endocervical Swab Negative Normal NEGATIVE [facility] Comment on above: Performed By: #### G C Amp Endocerv, CT Amp Endocerv #### [facility] [address] [place], [place] [id number] Platelet Functionon 03-24-19 19 Collagen/ADP 148 sec High 67-112 [facility] Comment on above: Performed By: #### P FA #### [facility] [address] [place] [address] Collagen/EPI 228 sec High 85-172 [facility] Comment on above: Performed By: #### P FA #### [facility] [address] [place] [address] Interpretation Abnormal platelet function. Normal [place] [facility] [...] established. Performed By: #### P FA #### [facility] [address] [place] [address] XR ANKLE RIGHT STANDARDon XR ANKLE RIGHT STANDARD Radiology exam i s complete. No Radiologist dictation. Please follow up with ordering provider. Final result Normal [facility] Vital Signs Date Time Vital Sign Value Performing Clinician Facility 09-24-2023 10:29-0400 Body height 170.18 cm [facility] 09-24-2023 10:29-0400 Body mass index (BMI) [Ratio] 30.2 kg/m2 [facility] 09-24-2023 10:29-0400 Body weight 87.54 kg [facility] 09-24-2023 10:29-0400 Diastolic blood pressure 78 mm[Hg] [facility] 09-24-2023 10:29-0400 Heart rate 67 /min [facility] 09-24-2023 10:29-0400 SaO2% (BldA) [Mass fraction] 98 % [facility] 09-24-2023 10:29-0400 Systolic blood pressure 112 mm[Hg] [facility] 08-21-2023 14:43-0400 Body height 161.3 cm Cori Maturu V, DO Work Phone: [facility] Comment on above: verbal 08-21-2023 14:43-0400 Body mass index (BMI) [Ratio] 34.59 kg/m2 Cori Maturu V, DO Work Phone: [facility] 08-21-2023 14:43-0400 Body temperature 98.29 [degF] Cori Maturu V, DO Work Phone: [facility] 08-21-2023 14:43-0400 Body weight 89.99 kg Cori Maturu V, DO Work Phone: [facility] 08-21-2023 14:43-0400 Diastolic blood pressure 76 mm[Hg] Cori Maturu V, DO Work Phone: [facility] 08-21-2023 14:43-0400 Heart rate 88 /min Cori Maturu V, DO Work Phone: [facility] 08-21-2023 14:43-0400 Systolic blood pressure 130 mm[Hg] Cori Maturu V, DO Work Phone: [facility] 07-07-2023 14:37-0400 Body height 170.18 cm [facility] 07-07-2023 14:37-0400 Body mass index (BMI) [Ratio] 30.8 kg/m2 [facility] 07-07-2023 14:37-0400 Body weight 89.35 kg [facility] 07-07-2023 14:37-0400 Diastolic blood pressure 78 mm[Hg] [facility] 07-07-2023 14:37-0400 Heart rate 81 /min [facility] 07-07-2023 14:37-0400 SaO2% (BldA) [Mass fraction] 98 % [facility] 07-07-2023 14:37-0400 Systolic blood pressure 112 mm[Hg] [facility] 05-28-2023 14:04-0400 Body height 161.3 cm Riana Raoul [employer] Work Phone: [facility] 05-28-2023 14:04-0400 Body mass index (BMI) [Ratio] 34.09 kg/m2 Crystal Raoul [employer] Work Phone: [facility] 05-28-2023 14:04-0400 Body temperature 98.01 [degF] Crystal Raoul [employer] Work Phone: [facility] 05-28-2023 14:04-0400 Body weight 88.68 kg Crystal Roaul [employer] Work Phone: [facility] 05-28-2023 14:04-0400 Diastolic blood pressure 74 mm[Hg] Crystal Raoul [employer] Work Phone: [facility] 05-28-2023 14:04-0400 Heart rate 92 /min Crystal Raoul [employer] Work Phone: [facility] 05-28-2023 14:04-0400 Systolic blood pressure 122 mm[Hg] Crystal Raoul [employer] Work Phone: [facility] 04-22-2023 13:04-0500 Body mass index (BMI) [Ratio] 34 kg/m2 Donovan Kimmie DO Work Phone: [facility] 04-22-2023 13:04-0500 Body weight 88.45 kg Donovan Kimmie DO Work Phone: [facility] 04-22-2023 13:04-0500 Diastolic blood pressure 78 mm[Hg] Donovan Kimmie DO Work Phone: [facility] 04-22-2023 13:04-0500 Systolic blood pressure 120 mm[Hg] Donovan Kimmie DO Work Phone: [facility] 02-14-2023 15:48-0500 Body height 161.3 cm Riana Raoul [employer] Work Phone: [facility] Comment on above: verbal 02-14-2023 15:48-0500 Body mass index (BMI) [Ratio] 34.82 kg/m2 Riana Raoul [employer] Work Phone: [facility] 02-14-2023 15:48-0500 Body temperature 97.9 [degF] Crystal Raoul [employer] Work Phone: [facility] 02-14-2023 15:48-0500 Body weight 90.58 kg Riana Raoul [employer] Work Phone: [facility] 02-14-2023 15:48-0500 Diastolic blood pressure 79 mm[Hg] Crystal Raoul [employer] Work Phone: [facility] 02-14-2023 15:48-0500 Heart rate 107 /min Crystal Raoul [employer] Work Phone: [facility] 02-14-2023 15:48-0500 Systolic blood pressure 133 mm[Hg] Crystal Raoul [employer] Work Phone: [facility] 01-15-2023 13:50-0500 Body temperature 97.5 [degF] Evy Verma MD Work Phone: [facility] 01-15-2023 13:50-0500 Diastolic blood pressure 79 mm[Hg] Evy Verma MD Work Phone: [facility] 01-15-2023 13:50-0500 Heart rate 78 /min Evy Verma MD Work Phone: [phone] [address] 01-15-2023 13:50-0500 Respiratory rate 16 /min Evy Verma MD Work Phone: [phone])[phone] [address] 01-15-2023 13:50-0500 SaO2% (BldA) [Mass fraction] 98 % Evy Verma MD Work Phone: [phone])[phone] [address] 01-15-2023 13:50-0500 Systolic blood pressure 117 mm[Hg] Evy Verma MD Work Phone: 5([phone] [address] 01-15-2023 07:50-0500 Body height 161.3 cm Evy Verma MD Work Phone: [phone] [address] 01-15-2023 07:50-0500 Body mass index (BMI) [Ratio] 34.37 kg/m2 Evy Verma MD Work Phone: [phone])[phone] [address] 01-15-2023 07:50-0500 Body weight 89.4 kg Evy Verma MD Work Phone: [facility] 01-09-2023 08:39-0400 Body height 161.3 cm Esau Hernandez PAC Work Phone: [facility] 01-09-2023 08:39-0400 Body mass index (BMI) [Ratio] 33.65 kg/m2 Esau Hernandez PAC Work Phone: [facility] 01-09-2023 08:39-0400 Body temperature 98.49 [degF] Esau Hernandez PAC Work Phone: [facility] 01-09-2023 08:39-0400 Body weight 87.54 kg Esau Hernandez PAC Work Phone: [facility] 01-09-2023 08:39-0400 Diastolic blood pressure 80 mm[Hg] Esau Hernandez PAC Work Phone: [facility] 01-09-2023 08:39-0400 Heart rate 81 /min Esau Hernandez PAC Work Phone: [facility] 01-09-2023 08:39-0400 Respiratory rate 18 /min Esau Hernandez PAC Work Phone: [facility] 01-09-2023 08:39-0400 SaO2% (BldA) [Mass fraction] 98 % Esau Hernandez PAC Work Phone: [facility] 01-09-2023 08:39-0400 Systolic blood pressure 134 mm[Hg] Esau Hernandez PAC Work Phone: [facility] 12-10-2022 10:53-0400 Body height 160 cm Evy Verma MD Work Phone: [facility] 12-10-2022 10:53-0400 Body mass index (BMI) [Ratio] 34.19 kg/m2 Evy Verma MD Work Phone: [facility] 12-10-2022 10:53-0400 Body weight 87.54 kg Evy Verma MD Work Phone: [facility] 12-10-2022 10:53-0400 Diastolic blood pressure 63 mm[Hg] Evy Verma MD Work Phone: [facility] 12-10-2022 10:53-0400 Heart rate 65 /min Evy Verma MD Work Phone: [facility] 12-10-2022 10:53-0400 Systolic blood pressure 125 mm[Hg] Evy Verma MD Work Phone: [facility] 11-08-2022 16:21-0400 Body height 160 cm Riana Raoul [employer] Work Phone: [facility] Comment on above: verbal 11-08-2022 16:21-0400 Body mass index (BMI) [Ratio] 34.26 kg/m2 Crystal Raoul [employer] Work Phone: [facility] 11-08-2022 16:21-0400 Body temperature 99.1 [degF] Crystal Raoul [employer] Work Phone: [facility] 11-08-2022 16:21-0400 Body weight 87.73 kg Crystal Raoul [employer] Work Phone: [facility] 11-08-2022 16:21-0400 Diastolic blood pressure 71 mm[Hg] Crystal Raoul [employer] Work Phone: [facility] 11-08-2022 16:21-0400 Heart rate 97 /min Crystal Raoul [employer] Work Phone: [facility] 11-08-2022 16:21-0400 Systolic blood pressure 116 mm[Hg] Crystal Raoul [employer] Work Phone: [facility] 07-04-2021 09:38-0400 Body height 161.3 cm Crystal Raoul [employer] Work Phone: [facility] Comment on above: verbal 07-04-2021 09:38-0400 Body mass index (BMI) [Ratio] 36.23 kg/m2 Crystal Raoul [employer] Work Phone: [facility] 07-04-2021 09:38-0400 Body temperature 98.71 [degF] Crystal Raoul [employer] Work Phone: [facility] 07-04-2021 09:38-0400 Body weight 94.26 kg Riana Chinchilla [employer] Work Phone: [facility] 07-04-2021 09:38-0400 Diastolic blood pressure 70 mm[Hg] Riana Chinchilla [employer] Work Phone: [facility] 07-04-2021 09:38-0400 Heart rate 73 /min Riana Chinchilla [employer] Work Phone: [facility] 07-04-2021 09:38-0400 Systolic blood pressure 119 mm[Hg] Riana Chinchilla [employer] Work Phone: [facility] Encounters Encounter Date Encounter Type Care Provider Facility Start: 10-15-2023 End: 10-15-2023 ambulatory MADONNA PARSONS Not Available Start: 09-24-2023 End: 09-24-2023 ambulatory [facility] Work Phone: Start: 09-24-2023 End: 09-24-2023 Patient encounter procedure [facility] Work Phone: Start: 09-11-2023 Non-patient / Non-visit [facility] Work Phone: Start: 08-21-2023 End: 08-21-2023 Office outpatient visit 25 minutes Cori Hernández DO Work Phone: [facility] 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); Anxiety disorder, unspecified type Start: 08-21-2023 ambulatory [facility] Facility: [facility] Start: 08-08-2023 Non-patient / Non-visit [facility] Work Phone: Start: 07-09-2023 Non-patient / Non-visit [facility] Work Phone: Start: 07-07-2023 End: 07-07-2023 ambulatory [facility] Work Phone: Start: 07-07-2023 End: 07-07-2023 Patient encounter procedure [facility] Work Phone: Start: 06-27-2023 Non-patient / Non-visit [facility] Work Phone: Start: 06-08-2023 Non-patient / Non-visit [facility] Work Phone: Start: 05-28-2023 End: 05-28-2023 Office outpatient visit 25 minutes Riana Duy Chinchilla [employer] Work Phone: [facility] [place] 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); Anxiety disorder, unspecified type Start: 05-28-2023 [facility] Facility: [facility] Start: 05-09-2023 Non-patient / Non-visit [facility] Work Phone: Start: 04-22-2023 End: 04-22-2023 ambulatory DONOVAN KIMMIE Not Available Start: 04-22-2023 End: 04-22-2023 Office outpatient visit 15 minutes Donovan Kimmie DO Work Phone: [facility] Comment on above: Encounter for fertil ity planning Start: 04-22-2023 End: 04-22-2023 ambulatory DONOVAN KIMMIE Not Available Start: 02-14-2023 End: 02-14-2023 Office outpatient visit 25 minutes Riana Duy Chinchilla [employer] Work Phone: [facility] [place] 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); 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 Start: 02-14-2023 ambulatory TIM BAYAMON Facility: [facility] Start: 01-15-2023 End: 01-15-2023 ambulatory EVY VERMA Facility:[facility] Start: 01-15-2023 End: 01-15-2023 Subsequent hospital visit by physician Evy Verma MD Work Phone: [facility] 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 Start: 01-09-2023 ambulatory EVY VERMA Facility:[facility] Start: 01-09-2023 End: 01-09-2023 Office consultation new/estab patient 60 min Esau Hernandez PAC Work Phone: Pre-Procedure Evaluation and Assessment [facility] Comment on above: Preop exam for inter nal medicine (Primary Dx); Jeavons syndrome; 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 Start: 01-09-2023 End: 01-09-2023 Patient encounter status Esau Hernandez PAC Work Phone: [facility] Start: 01-09-2023 End: 01-09-2023 Subsequent hospital visit by physician Evy Verma MD Work Phone: Imaging [facility] Comment on above: Arrived Start: 01-09-2023 ambulatory TIM BALL Facility: [facility] Start: 01-09-2023 Encounter for other preprocedural examination ESAU HERNANDEZ Facility:[facility] Start: 01-09-2023 ambulatory TIM BALL Facility: [facility] Start: 12-10-2022 End: 12-10-2022 Office outpatient new 45 minutes Evy Verma MD Work Phone: [facility] 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) Start: 12-10-2022 ambulatory RIANA CHINCHILLA Facilit y:[facility] Start: 11-27-2022 ambulatory TIM BALL Facility: [facility] Start: 11-19-2022 ambulatory TIM BALL Facility: [facility] Start: 11-14-2022 ambulatory TIM BALL Facility: [facility] Start: 11-08-2022 End: 11-08-2022 Office outpatient visit 40 minutes Riana Chinchilla [employer] Work Phone: Neurology [facility] 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) Start: 11-08-2022 ambulatory CRYSTAL G RAOUL Facilit y:[facility] Start: 09-19-2022 ambulatory TIM BALL Facility: [facility] Start: 09-13-2022 ambulatory SELF SELF Facility:[facility] Start: 05-23-2022 End: 05-24-[address] DONOVAN BURKS . Facility:[facility] Start: 04-30-2022 End: 05-01-[address] DOCTOR ASHTON Facility:[facility] Start: 04-16-2022 End: 04-17-[address] DONOVAN BURKS . Facility:[facility] Start: 04-15-2022 End: 04-16-[address] DONOVAN BURKS . Facility:[facility] Start: 08-27-2021 End: 08-27-[address] DONOVAN BURKS . Facility:[facility] Start: 07-04-2021 End: 07-04-2021 Office outpatient visit 25 minutes Riana Gordillo Raoul [employer] Work Phone: Neurology [facility] Comment on above: Generalized nonconvu lsive epilepsy (Primary Dx) Start: 06-24-2018 Encounter for gynecological examination (general) (routine) without abnormal findings NA NONE PER PATIENT [facility] Start: 06-24-2018 End: 06-24-2018 Patient encounter procedure GERARDO WARD Facility:[facility] Start: 05-25-2018 End: 05-25-2018 Patient encounter procedure . NONE PER PATIENT Facility:[facility] Start: 05-13-2018 End: 05-13-2018 Patient encounter procedure . NONE PER PATIENT Facility:[facility] Start: 03-23-2018 End: 03-24-2018 Patient encounter procedure [facility] Start: 03-20-2018 End: 03-21-2018 Patient encounter procedure [facility] Procedures Date Procedure Procedure Detail [...] By: #### C D #### [place] [address] Start: 03-23-2018 PLATELET FUNCTION TEST JAMIL SMITH Plan of Treatment Date Care Activity Detail Author Start: 01-22-2024 End: 01-22-2024 Patient encounter procedure 01/22/2024 9:15 AM EST Office Visit Neurology [facility] [address] [facility] [address] [place] [phone] Jeannie Meek, Cori, DO [address] [place] [address] [phone] [facility]rology [facility] Start: 11-28-2023 End: 11-28-2023 Patient encounter procedure 11/28/2023 10:20 AM EDT Office Visit [facility] [address] [address] Riana Chinchilla, [employer] [address] [place] [address] [facility] [place] Start: 11-09-2023 Influenza vaccination [facility] Start: 08-21-2023 End: 08-21-2023 Patient encounter procedure 08/21/2023 2:45 PM EDT Office Visit Neurology [facility] [address] [facility] [address] [place] [phone] Matchristin Meek Cori, DO [address] [place] [phone] [facility]rology [facility] Start: 05-28-2023 End: 05-28-2023 Patient encounter procedure 05/28/2023 2:00 PM EDT Office Visit [facility]rology [facility] [address] [place] [address] [place] [phone] Riana Chinchilla, [employer] [address] [place] [address] [facility]rology [facility] Start: 02-14-2023 End: 02-14-2023 Patient encounter procedure [facility] Start: 01-15-2023 End: 01-15-2023 Admission to same day surgery center 01/15/2023 9:40 AM EST - 01/15/2023 11:50 AM EST Surgery [facility] [address] [place] [phone] Evy Verma MD [address] [place] [phone] INSERTION REPLACEMENT NEUROSTIMULATOR GENERATOR CRANIAL/INTRACRANIAL [facility] Comment on above: INSERTION REPLACEMENT NEUROSTIMULATOR GE NERATOR CRANIAL/INTRACRANIAL Start: 01-15-2023 End: 01-15-2023 Insj/rplcmt cranial neurostim pulse generator INSERTION REPLACEMENT NEUROSTIMULATOR GENERATOR CRANIAL/INTRACRANIAL Jeavons syndrome 01/15/2023 9:40 AM EST [facility] Start: 01-15-2023 Subsequent hospital visit by physician 01/15/2023 9:40 AM EST Hospital Encounter [facility] [address] [place] [address] Evy Verma MD [address] [place] [address] Jeavons syndrome [facility] 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 Start: 12-10-2022 End: 12-11-2023 Radiographic imaging procedure XR STIMULATOR/INTRATHECAL PUMP Imaging Routine Jeavons syndrome Expected: 12/10/2022, Expires: 12/11/[address] [facility] Comment on above: Expected: 12/10/2022, Expires: Start: 12-10-2022 End: 12-10-2022 Patient encounter procedure 12/10/2022 11:30 AM EDT Office Visit [facility] Outpatient [address] [place] [id number] Evy Verma MD [address] [place] [phone] [facility] Start: 11-08-2022 COVID-19 VACCINE ( season) COVID-19 VACCINE ( season) [facility] Start: 11-08-2022 Influenza vaccination INFLUENZA VACCINE (#1) [facility] Start: 01-04-2022 End: 01-04-2022 Patient encounter procedure 01/04/2022 Office Visit Neurology Cori Dia, DO [address] [place] [address] Neurology [facility] Start: 11-08-2021 Influenza vaccination INFLUENZA VACCINE (Season Ended) [facility] Start: 10-10-2021 End: 10-10-2021 Telemedicine consultation with patient 10/10/2021 Telemedicine Neurology Riana Chinchilla, [employer] RESTORER [address] [place] [address] Neurology [facility] Start: 08-15-2021 End: 08-15-2021 Telemedicine consultation with patient 08/15/2021 Telemedicine Neurology Riana Chinchilla, [employer]ILES RESTORER [address] [place] [phone] Neurology [facility] Start: 2013 Screening for malignant neoplasm of cervix CERVICAL CANCER SCREENING DISCUSSION [facility] Start: 07-15-2011 Hepatitis B vaccination HEP B VACCINE (1 of 3 - 19+ 3-dose series) [facility] Start: 07-15-2011 Third diphtheria, tetanus and acellular pertussis (DTaP) vaccination TDAP (ADULT) [facility] Start: 2010 Tetanus vaccination TETANUS [facility] Start: 07-15-2007 HIV screening HIV SCREENING DISCUSSION [facility] Start: 1997 COVID-19 VACCINE (1) COVID-19 VACCINE (1) [facility] Start: 01-14-1993 COVID-19 VACCINE (#1) COVID-19 VACCINE (#1) [facility] Start: 1992 Hepatitis B vaccination HEP B VACCINE (1 of 3 - 3-dose series) [facility] Start: 1992 Hepatitis C antibody, confirmatory test HEPATITIS C VIRUS SCREENING [facility] Start: 1992 Hepatitis C screening HEPATITIS C VIRUS SCREENING [facility] Start: 1992 Tetanus vaccination TETANUS [facility] Ecg routine ecg w/le ast 12 lds w/i&r CA ELECTROCARDIOGRAM, COMPLETE CA - OFFICE PERFORMED Routine 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 Ordered: 01/09/2023 [facility] Comment on above: Ordered: 01/09/2023 Elec horace implt npgt phys/qhp w/o programming CA ELEC HORACE IMPLT NPGT PHYS/QHP W/O PROGRAMMING CA Charge Routine Jeavons syndrome Ordered: 09/09/2023 [facility] Comment on above: Ordered: 09/09/2023 Elec horace implt smpl cn npgt prgrmg CA ELEC HORACE IMPLT SMPL CN NPGT PRGRMG CA Charge Routine Jeavons syndrome Ordered: 11/14/2022 [facility] Comment on above: Ordered: 11/14/2022 Elec horace implt smpl cn npgt prgrmg CA ELEC HORACE IMPLT SMPL CN NPGT PRGRMG CA Charge Routine 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 Ordered: 03/12/2023 [facility] Comment on above: Ordered: 03/12/2023 Elec horace implt smpl cn npgt prgrmg CA ELEC HORACE IMPLT SMPL CN NPGT PRGRMG CA Charge Routine Jeavons syndrome Ordered: 06/21/2023 [facility] Comment on above: Ordered: 06/21/2023 Insj/rplcmt cranial neurostim pulse generator INSERTION REPLACEMENT NEUROSTIMULATOR GENERATOR CRANIAL/INTRACRANIAL Jeavons syndrome [facility] Noninvasive ear/puls e oximetry single deter CA NONINVASV OXYGEN SATUR; SINGLE CA - OFFICE PERFORMED Routine 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 Ordered: 01/09/2023 [facility] Comment on above: Ordered: 01/09/2023 Immunizations Immunization Date Immunization Notes Care Provider Lee shelton 01-04-2014 influenza, seasonal, injectable, preservative free Evy Verma MD Work Phone: [facility] 01-04-2014 influenza virus vaccine, unspecified formulation Riana Chinchilla [employer] Work Phone: [facility] Payers Date Payer Category Payer Unknown [id number] 2021 Medicaid [employer] [place] [id number] 2021-Present [address] [place] [address] [id number] 2016 Unknown [id number] 2016 Self-pay 2014 Unknown [id number] 1992 Unknown [id number] [id number]3 1992 Unknown [id number] 2.16.840.1.144306.3.579.2.173 1992 Unknown [id number] 2.16.840.1.428855.3.579.2.754 1992 Unknown [id number] 2.16.840.1.150272.3.579.2.754 1992 Unknown [id number] 2.16.840.1.422540.3.579.2.754 1992 Unknown [id number] 2.16.840.1.509691.3.579.2.754 1992 Unknown [id number] 2.16.840.1.399950.3.579.2.593 1992 Unknown [id number] 2.16.840.1.896454.3.579.2.593 1992 Unknown [id number] 2.16840.1.192713.3.579.2.593 1992 Unknown [id number] 2.840.1.717237.3.579.2.593 1992 Unknown [id number] 2.840.1.043342.3.579.2.593 1992 Unknown [id number] 2.16840.1.005403.3.579.2.1259 1992 Unknown [id number] 2.16840.1.006453.3.579.2.594 1992 Unknown [id number] 2.840.1.779227.3.579.2.594 1992 Unknown [id number] 2.16840.1.981624.3.579.2.594 1992 Unknown [id number] 2.16840.1.802591.3.579.2.594 1992 Unknown [id number] 2.16840.1.345961.3.579.2.594 1992 Unknown [id number] 2.16840.1.493336.3.579.2.594 1992 Unknown [id number] 2.16840.1.160168.3.579.2.594 1992 Unknown [id number] 2.16.840.1.781470.3.579.2.594 1992 Unknown [id number] 2.16.840.1.636937.3.579.2.594 1992 Unknown [id number] 2.16.840.1.377162.3.579.2.594 1992 Unknown [id number] 2.16.840.1.149622.3.579.2.594 1992 Unknown [id number] 2.16.840.1.807060.3.579.2.594 1992 Unknown [id number] 2.16.840.1.487117.3.579.2.594 1992 Unknown [id number] 2.16.840.1.868232.3.579.2.594 1992 Unknown [id number] 2.16.840.1.100320.3.579.2.594 1992 Unknown [id number] 2.16.840.1.725157.3.579.2.1259 1959 Unknown [id number] 1959 Unknown [id number] Social History Date Type Detail Facility Start: 10-28-2019 End: 07-07-2023 Tobacco smoking status WIIS Never smoked tobacco [facility] Start: 10-28-2019 End: 02-14-2023 Tobacco use and exposure Smokeless tobacco non-user [facility] Start: 10-28-2019 Alcohol intake Current drinker of alcohol (finding) [facility] Start: 10-28-2019 History SDOH Alcohol Frequency 2 [facility] Start: 10-28-2019 History SDOH Alcohol Comment rare wine [facility] Start: 10-28-2019 Education 17 [facility] Start: 1992 Sex Assigned At Not on file [facility] Start: 11-08-2022 End: 09-09-2023 Alcohol intake Ex-drinker (finding) [facility] Start: 10-28-2019 End: 01-15-2023 History of Social function [facility] Start: 10-28-2019 End: 01-15-2023 Alcohol Use Disorder Identification Test - Consumption [AUDIT-C] [facility] How often to you hav e a drink containing alcohol? Monthly or less [facility] Average Number of Drinks Not on file [facility] Start: 10-29-2019 Gender identity Identifies as female gender (finding) [facility] Start: 10-29-2019 Sexual orientation Heterosexual (finding) [facility] Start: 02-14-2023 Tobacco Comment Never [facility] Start: 02-14-2023 Alcohol Comment At most one or two drinks a month. [facility] Start: 04-22-2023 Alcohol intake Not Asked [facility] Start: 08-07-2022 Alcohol Comment Occasional alcohol use [facility] Start: 1990 Sex Assigned At Female [facility] Medical Equipment Procedure Code Equipment Code Equipment Origin al Text Equipment Identifier Dates Sentiva [id number] Start: 01-15-2023 Clinical Notes 07-04-2021 to 08-21-2023 Cori Hernández V, DO - 08/21/2023 2:45 PM EDTPatient InstructionsCrystal JETHRO Bolaños - 05/28/2023 2:00 PM EDTCvalencia Burks DO [...] 24 hours. 2 Each 0 Prenat MV-Min w/Py-Tucudm-SWZ ( COMPLETE PO) Take 1 tablet by [...] AW Model ID Sentiva N1000 Serial # [id number] Implanted 03/27/2018 Communication Output Current Status Current [...] of questions or concerns. Cori Hernández DO Industrial Maintenance Repairer Department of Neurology, Epilepsy Division [facility] documented in this encounter [facility] 08-21-2023 Instructions Cori Meek DO - 08/21/2023 [...] you can call the Neurology clinic at [phone]. If you have access through Close, you can contact me through that system as well. documented in this encounter [facility] 05-28-2023 History of Present illness Narrative Images from the original note were not included. Rowena Drake was seen in the [facility]psy [facility] at [facility] on 05/28/2023. She is here today [...] 24 hours. 2 Each 0 Prenat MV-Min w/Je-Zzggio-OQI ( COMPLETE PO) Take 1 tablet by [...] your epilepsy that we offer at the [facility]? Yes If you have tried 2 or 3 anti-seizure medications and your seizures are still not controlled, are you interested in learning about surgical options for your epilepsy that we can offer at the [facility]? No Neurological Disorders Depression Inventory for Epilepsy [...] 01/15/2023 Model Number 1000 1000 Serial Number [id number] Output Current (mA) 2.5 mA 2.25 mA [...] and continue maintenance dose of clobazam - CA ELEC HORACE IMPLT SMPL CN NPGT PRGRMG [...] 45 tablet; Refill: 2 Encouraged use of CM Sistemi to send messages to provider as needed for questions and concerns or can call our clinic @ [phone]. She will return in [address] Hernández or sooner if clinically indicated. Signed, Riana ESCALANTE, [employer]ACE AND TEXTILES RESTORER [facility] Department of Neurology - Epilepsy Division [address] [place] [address] - 7th floor [place] [address] Pager: [phone] I spent a total of 35 minutes on the date of the service which included preparing to see the patient, ckrq-as-fofh patient care, completing clinical documentation, performing a medically appropriate examination and counseling and educating the patient/family/caregiver. Note to patient: The Century Cures Act makes medical notes like these available to patients in the interest of transparency. However, be advised this is a medical document. It is intended as beuz-sg-hyzb communication. It is written in medical language and may contain abbreviations or verbiage that are unfamiliar. It may appear blunt or direct. Medical documents are intended to carry relevant information, facts as evident, and the clinical opinion of the practitioner. documented in this encounter [facility] 04-22-2023 History of Present illness Narrative [...] nursing note reviewed. Exam conducted with a rod placer present. Vitals: Estimated body mass index is [...] Donovan Burks DO documented in this encounter [facility] 02-14-2023 History of Present illness Narrative Images from the original note were not included. Rowena Byers was seen in the [facility] at [facility] on 02/14/2023. She is here today for a follow-up in clinic accompanied by her , Pedro. She was last seen on 04/19/[address] Cori Hernández DO and with wa 11/08/2022. History of Present Illness INTERVAL HISTORY: [...] 24 hours. 2 Each 0 Prenat MV-Min w/Dj-Nhsmsy-JJO ( COMPLETE PO) Take 1 tablet by [...] ID ABW Model ID SenTiva Serial # [id number] Implanted 01/15/2023 Communication OK Output Current Status [...] VNS Simple Reprogramming (1-3 changes) CPT code 40083 Assessment and Plan Assessment: Rowena is a [...] longer than 5 minutes. Encouraged use of CM Sistemi to send messages to provider as needed for questions and concerns or can call our clinic @ [phone]. She will return in 3 months with and [address] Hernández or sooner if clinically indicated. Signed, Riana Chinchilla MSN, [employer] TEXTILES RESTORER [facility] Department of Neurology - Epilepsy Division [address] [place] [address] - 7th floor [place] [address] Pager: [phone] I spent a total of 34 minutes on the date of the service which included preparing to see the patient, aznf-mr-qgav patient care, completing clinical documentation, performing a medically appropriate examination and counseling and educating the patient/family/caregiver. Note to patient: The 21st Century Cures Act makes medical notes like these available to patients in the interest of transparency. However, be advised this is a medical document. It is intended as dqsh-hn-lhsb communication. It is written in medical language and may contain abbreviations or verbiage that are unfamiliar. It may appear blunt or direct. Medical documents are intended to carry relevant information, facts as evident, and the clinical opinion of the practitioner. documented in this encounter [facility] 02-14-2023 Instructions JETHRO Juan - 02/14/2023 [...] after regular office hours, a neurologist is studio receptionist for urgent issues. Call the neurology office number ([phone]) to reach the neurologist studio receptionist if you are continuing to experience many more seizures than usual despite use of your rescue medications. Please try to remember that the neurologist studio receptionist may not have access to your complete medical record and may not be as familiar with your history. If you have access through Close, you can contact us through that system as well. If you have documents that need completed or sent to our clinic, please have them faxed to [phone]. It is always best to call during [...] the refill is ready for you to coal picker. Seizure First Aid Training Can Be Found Here (it's free!): [email or web address] nd documented in this encounter [facility] 01-15-2023 Miscellaneous Notes [facility] OPERATIVE REPORT PATIENT NAME: Rowena [...] The IPG had been interrogated by the traveling sales representative from the vendor. The upper [...] the new IPG and secured with the corn detasseler's screwdriver. At this point, a metal numerical tool programmer was used to interrogate the new [...] VSS, anesthesia sign out completed. 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 SURGEON Surgeon(s) and Role: * Evy Verma MD - Primary ANESTHESIOLOGIST Anesthesiologist: Cydney Zavala MD APPOINTMENT SETTER: Geraldo Marion APRN-MARTITA Student Nurse Child Care Coordinator: Chiquita Polanco SURGICAL STAFF Multimedia Designer: Miki Gary RN; Linda Gilmore RN Relief Multimedia Designer: Janet Carreon RN Scrub Person: Marielle Ibrahim Resident Assisting: Colt Meadows MD COMPLICATIONS None ESTIMATED BLOOD LOSS Minimal SPECIMENS No specimen sent * No specimens in log * Colt Meadows MD January 15, 2023 11:03 AM documented in this encounter [facility] 01-15-2023 Nurse Note Pt and family were given AVS and verbalize understanding of instructions. Pt discharged via wheelchair. [facility] 01-15-2023 Surgery Postoperative evaluation and management note [facility] OPERATIVE REPORT PATIENT NAME: Rowena [...] The IPG had been interrogated by the traveling sales representative from the vendor. The upper [...] the new IPG and secured with the corn detasseler's screwdriver. At this point, a metal numerical tool programmer was used to interrogate the new [...] and performed the critical portions. [facility] 01-15-2023 Nurse Note Report called to RN SPR, VSS, anesthesia sign out completed. 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 SURGEON Surgeon(s) and Role: * Evy Verma MD - Primary ANESTHESIOLOGIST Anesthesiologist: Cydney Zavala MD APPOINTMENT SETTER: Geraldo Marion APRN-APPOINTMENT SETTER Student Nurse Child Care Coordinator: Chiquita Polanco SURGICAL STAFF Multimedia Designer: Miki Gary RN; Linda Gilmore RN Relief Multimedia Designer: Janet Carreon RN Scrub Person: Marielle Ibrahim Resident Assisting: Colt Meadows MD COMPLICATIONS None ESTIMATED BLOOD LOSS Minimal SPECIMENS No specimen sent * No specimens in log * Colt Meadows MD January 15, 2023 11:03 AM [facility] 01-15-2023 Nurse Surgical operation note Report given to RETURN CLERK. Patient transported to PACU with anesthesia on a cart and oxygen. [facility] 01-15-2023 Nurse Note Report given to RETURN CLERK. Patient transported to PACU with anesthesia on a cart and oxygen. documented in this encounter [facility] 01-15-2023 Hospital Discharge instructions Colt Meadows MD - 01/15/2023 9:30 AM EST Discharge Instructions for DBS Surgery & Battery Placement Surgery Here are some general guidelines to assist you in your recovery at home. Please do not hesitate to call us with any questions or concerns you may have. We can be reached at [phone]. Your appointmentS will be in the Neuromodulation clinic in [address] Incision Care: If you have a [...] 101 degrees F documented in this encounter [facility] 01-15-2023 History and physical note PERIOPERATIVE [...] by Evy Verma MD, 01/15/2023, 9:08 AM. [facility] Work Phone: 01-15-2023 History and physical [...] 01/15/2023, 9:08 AM. documented in this encounter [facility] 01-09-2023 History and physical note Images [...] 10 mg in 24 hours. Prenat MV-Min w/Tn-Xbaqbi-KCE ( COMPLETE PO) Take 1 tablet by [...] % ointment HCG QUALITATIVE, URINE Pulse Ox CA ECG, CLINIC PERFORMED Lab A/P - Labs [...] patient has been medically OPTIMIZED FOR SURGERY. [facility] Perioperative Clinic [facility] [address] [facility] Review of Systems [...] PCP - General (Internal Medicine) Riana Chinchilla APRN-LACE AND TEXTILES RESTORER (Certified Nurse Practitioner) Family History Problem Relation Age of Onset Prostate Cancer Maternal Grandfather Mental Illness Maternal Grandmother Depression , Anxiety Prostate Cancer Paternal Grandfather Cancer- Other Paternal Grandfather Diabetes Paternal Uncle Social History Socioeconomic History Marital status: Highest education level: Bachelor's degree (e.g., BA, AB, BS) 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 01-09-2023 History and physical note Images [...] 10 mg in 24 hours. Prenat MV-Min w/Rl-Owsxwp-XVV ( COMPLETE PO) Take 1 tablet by [...] % ointment HCG QUALITATIVE, URINE Pulse Ox CA ECG, CLINIC PERFORMED Lab A/P - Labs [...] patient has been medically OPTIMIZED FOR SURGERY. [facility] Perioperative Clinic [facility] [address] [facility] Review of Systems [...] PCP - General (Internal Medicine) Riana Chinchilla APRN-LACE AND TEXTILES RESTORER (Certified Nurse Practitioner) Family History Problem Relation Age of Onset Prostate Cancer Maternal Grandfather Mental Illness Maternal Grandmother Depression , Anxiety Prostate Cancer Paternal Grandfather Cancer- Other Paternal Grandfather Diabetes Paternal Uncle Social History Socioeconomic History Marital status: Highest education level: Bachelor's degree (e.g., BA, AB, BS) 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 She takes Lamictal for treatment 4. Credit Analyst--patient states she is actively trying to get . Will check hCG today and on day of surgery. Patient understands that surgery may be cancelled if she is . Anesthesia Assessment:No contraindications to planned surgery. Pending review of the patient's labs.ECG reviewed. Whitney Ward MD [facility] documented in this encounter [facility] 01-09-2023 Instructions Robyn Dempsey LPN - [...] take Herbal Medication (including multi-vitamin, fish oil ([place]-3), garlic, Glucosamine - Chondroitin ,gingko, ginseng, Vitamin [...] site one week prior to surgery. - Scroggins your teeth and rinse your mouth the morning of surgery. - Do NOT bring your dentures or partials with you into surgery. They may be lost. Give them to someone to bring to you after surgery. If you are unable to complete your scheduled testing or appointments made by [facility] please contact [facility] at [phone]. Failure to do so could delay or [...] surgery, please notify our team immediately at [phone]. - If you have Sleep apnea and have a CPAP or BIPAP, then bring your CPAP mask and machine with you to the hospital. Please contact Medical Information Management Department for all records requests. [phone] Puma/mateo documented in this encounter [facility] 12-10-2022 History of Present illness Narrative [...] that were dedicated to clinical evaluation, including xkxs-bg-kbgq time; counseling and education; chart completion; reviewing [...] aspirin, excedrin, plavix), multivitamins/minerals/herbal supplements (such as [place]-3, garlic, Glucosamine - Chondroitin, gingko, ginseng, Vitamin E, fish oil, etc), non-steroidal anti-inflammatory medications (NSAIDs) (such as Ibuprofen/Motrin/Advil, Aleve, Celebrex) for 10 days prior to surgery, as these are blood thinners. She was advised that Tylenol is the preferred option for pain. She stated understanding. documented in this encounter [facility] 11-08-2022 History of Present illness Narrative Images from the original note were not included. Rowena Byers was seen in the [facility]psy [facility] at [facility] on 11/08/2022. She is here today for a follow-up in clinic accompanied by her , Pedro. She was last seen on 04/19/[address] Cori Hernández DO and with me 09/19/22. History of Present [...] ID AW Model ID SenTiva Serial # [id number] Implanted 03/27/2018 Communication OK Output Current Status [...] VNS Simple Reprogramming (1-3 changes) CPT code 22140 Assessment and Plan Assessment: Rowena is a [...] would like to wait Encouraged use of CM Sistemi to send messages to provider as needed for questions and concerns or can call our clinic @ [phone]. She will return in 2 months or sooner if clinically indicated. Signed, Riana Chinchilla MSN, [employer] TEXTILES RESTORER [facility] Department of Neurology - Epilepsy Division [address] [place] [address] - 7th floor [place] [phone] Pager: [phone] I spent a total of 46 minutes on the date of the service which included preparing to see the patient, euki-xt-[id number] patient care, completing clinical documentation, performing a medically appropriate examination and counseling and educating the patient/family/caregiver. Note to patient: The 21st Century Cures Act makes medical notes like these available to patients in the interest of transparency. However, be advised this is a medical document. It is intended as jqoa-tc-wngf communication. It is written in medical language and may contain abbreviations or verbiage that are unfamiliar. It may appear blunt or direct. Medical documents are intended to carry relevant information, facts as evident, and the clinical opinion of the practitioner. documented in this encounter [facility] 11-08-2022 Instructions JETHRO Juan - 11/08/2022 [...] ID AW Model ID SenTiva Serial # [id number] Implanted 03/27/2018 Communication OK Output Current Status OK Current Delivered 1.75 Lead Impedance OK Impedance Value 2903 IFI NO Average # of Inhibited Auto stimulations Daily Avg. Stim % Per Day %Therapy Normal 843.56 AutoStim 26.89 Magnet 0.04 Total 870.50 documented in this encounter [facility] 07-04-2021 Instructions JETHRO Juan - 07/04/2021 [...] weeks with Riana documented in this encounter [facility] 07-04-2021 History of Present illness Narrative Images from the original note were not included. Rowena Byers was seen in the [facility] on 07/04/2021. 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 Encouraged use of CM Sistemi to send messages to provider as needed for questions and concerns or can call our clinic @ [phone]. She will return in 6 weeks and 3 months with me and [address] Hernández or sooner if clinically indicated. Signed, Riana Chinchilla MSN, [employer] TEXTIL[employer] RESTORER [facility] Department of Neurology - Epilepsy Division [address] [place] [address] - [place] floor [place] [address] Pager: [phone] Time to complete visit: I spent approximately 38 minutes reviewing the chart prior to the appointment, in face to face counseling with the patient, and with documentation after the visit. 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 Jeavons syndrome- Primary [facility] Diagnosis Jeavons syndrome Jeavons syndrome documented [facility] Diagnosis Preop exam for internal medicine- Primary Other specified pre-operative examination 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 Other postprocedural status Jeavons syndrome 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 Encounter for fertility planning [facility] Diagnosis Jeavons syndrome- Primary Anxiety disorder, unspecified type documented [facility] this encounter [facility] Diagnosis Onset Date Resolution Status Maxillary sinusitis [facility] Work Phone: Evaluation note* Diagnosis Jeavons syndrome- Primary Anxiety disorder, unspecified type documented [facility] this encounter [facility] Diagnosis Onset Date Resolution Status Maxillary sinusitis acute Maxillary sinusitis [facility] Work Phone: Reason for referral (narrative)* Consultation (Routine) - New Request Specialty Diagnoses / Procedures Referred By Rainer ramos Referred To Contact Neurologic Surgery Diagnoses Jeavons syndrome Evy Verma MD [address] [place] [address] Referral ID Status Reason Start Date Expiration Date V isits Requested Visits Authorized [id number] New Request 12/10/2022 01/04/2024 1 1 [facility] Summary Purpose Family History No Family History Records Found Relationship Condition Age at Onset Recorded Date/T jorge grandparent Malignant neoplasm Unknown Advance Directives No Advanced Directives Records Found Advance Directive Response Recorded Date/ Time Advance Directives No July 06 024 12:12pm Reason for Referral Specialty Diagnoses / Procedures Referred By Rainer ramos Referred To Contact Diagnoses Generalized nonconvulsive epilepsy Riana Chinchilla, [employer]ER [address] [place] [address] Referral ID Status Reason Start Date Expiration Date V isits Requested Visits Authorized [id number] Pending Review 1 1 Specialty Diagnoses / Procedures Referred By Rainer ramos Referred To Contact Procedures DVT/VTE RISK ASSESSMENT Evy Verma MD [address] [place] [address] Referral ID Status Reason Start Date Expiration Date V isits Requested Visits Authorized [id number] New Request 01/15/2023 02/09/2024 1 1 Chief Complaint and Reason for Visit Chief Complaint sinus infection Reason for Visit Maxillary sinusitis Chief Complaint sinus infection sinus infection Reason for Visit Maxillary sinusitis Maxillary sinusitis Additional Source Comments INFORMATION SOURCE (unrecogn ized section and content) DATE CREATED AUTHOR 09/03/2017 [facility] DATE CREATED AUTHOR AUTHOR'S ORGANIZ ATION 03/28/2018 [facility] DATE CREATED AUTHOR AUTHOR'S ORGANIZ ATION 07/02/2018 [facility] DATE CREATED AUTHOR AUTHOR'S ORGANIZ ATION 10/02/2019 [facility] DATE CREATED AUTHOR AUTHOR'S ORGANIZ ATION 06/01/2022 [facility] DATE CREATED AUTHOR AUTHOR'S ORGANIZ ATION 04/24/2023 [facility] DATE CREATED AUTHOR AUTHOR'S ORGANIZ ATION 08/23/2023 [facility] DATE CREATED AUTHOR AUTHOR'S ORGANIZ ATION 10/18/2023 [facility] EPIC Reason for Visit (unrecogniz ed section and content) Reason Comments Follow-up Reason Comments Follow-up Reason Comments New Patient 32 y.o female here f or consult. Specialty Diagnoses / Procedures Referred By Contac t Referred To Contact Neurologic Surgery Diagnoses Jeavons syndrome S/P placement of VNS (vagus nerve stimulation) device Riana Chinchilla, [employer] REST[employer]ER [address] [place] [address] Referral ID Status Reason Start Date Expiration Date V isits Requested Visits Authorized [id number] New Request 09/19/2022 10/14/2023 1 1 Reason Comments Preoperative Assessment Specialty Diagnoses / Procedures Referred By Contac t Referred To Contact Neurologic Surgery Diagnoses Jeavons syndrome Evy Verma MD [address] [place] [address] Referral ID Status Reason Start Date Expiration Date V isits Requested Visits Authorized [id number] New Request 12/10/2022 01/04/2024 1 1 Specialty Diagnoses / Procedures Referred By Rainer ramos 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] Procedures CA IMP STIM,CRANIAL,SUBQ,1 ARRAY INSERTION REPLACEMENT NEUROSTIMULATOR GENERATOR CRANIAL/INTRACRANIAL Evy Verma MD [address] [place] [address] [facility] [address] [place] [address] Referral ID Status Reason Start Date Expiration Date Visits Re quested Visits Authorized [id number] 1 1 Reason Comments Infertility Care Teams (unrecognized sec tion and content) Finish Mill Operator Relationship Specialty Start Date End Date Tim Rolon DO [address] [place] [address] PCP - General Internal Medicine 09/19/22 Riana Chinchilla, [employer]ER [address] [phone] Certified Nurse Practitioner 11/08/22 [employer] Mill Operator Relationship Specialty Start Date End Date Tim Rolon DO [address] [place] [address] PCP - General Internal Medicine 09/19/22 Riana Chinchilla, [employer] REST[employer]ER [address] [phone] Certified Nurse Practitioner 11/08/22 Finish Mill Operator Relationship Specialty Start Date End Date Tim Rolon DO [address] [place] [address] PCP - General Internal Medicine 09/19/22 Riana Chinchilla, [employer] REST[employer]ER [address] [place] [phone] Certified Nurse Practitioner 11/08/22 Finish Mill Operator Relationship Specialty Start Date End Date Tim Rolon DO [address] [place] [address] PCP - General Internal Medicine 09/19/22 Riana Chinchilla, [employer]IL[employer] REST[employer]ER [address] [place] [phone] Certified Nurse Practitioner 11/08/22 Finish Mill Operator Relationship Specialty Start Date End Date Tim Rolon DO [address] [place] [address] PCP - General Internal Medicine 09/19/22 Riana Chinchilla, [employer]IL[employer] REST[employer]ER [address] [place] [phone] Certified Nurse Practitioner 11/08/22 Finish Mill Operator Relationship Specialty Start Date End Date Tim Rolon DO [address] [place] [address] PCP - General Internal Medicine 09/19/22 Riana Chinchilla, [employer]IL[employer] REST[employer]ER [address] [place] [phone] Certified Nurse Practitioner 11/08/22 Finish Mill Operator Relationship Specialty Start Date End Date Tim Rolon MD [address] [place] [address] PCP - General Internal Medicine 08/08/22 Finish Mill Operator Relationship Specialty Start Date End Date HaylieTimDO [address] [place] [phone] PCP - General Internal Medicine 09/19/22 Riana Chinchilla, [employer] REST[employer]ER [address] [phone] Certified Nurse Practitioner 11/08/22 Team Status: Active Member Role Status Dates Tim Rolon , DO Primary Care Provider Active Team Status: Active Member Role Status Dates Tim Rolon , DO Primary Care Provide r, Attending Provider Active Start: May 09, 2023 Team Status: Active Member Role Status Dates Tim Rolon , DO Primary Care Provide r, Attending Provider Active Start: June 08, 2023 Team Status: Active Member Role Status Dates Tim Rolon DO Primary Care Provide r, Attending Provider Active Start: June 27, 2023 Team Status: Inactive Member Role Status Dates Tim Rolon DO Primary Care Provider Active Start: July 07, 2023 End: July 07, 2023 Kristine Oneill APRN AUTOMOTIVE PARTS MANAGER-C Attending Provider Act duncan Start: July 07, 2023 End: July 07, 2023 Finish Mill Operator Relationship Specialty Start Date End Date Tim Rolon DO [address] [place] [id number] PCP - General Internal Medicine 09/19/22 Riana Chinchilla, [employer] REST[employer]ER [address] [place] [phone] Certified Nurse Practitioner 11/08/22 Team Status: Active Member Role Status Dates Tim Rolon DO Primary Care Provide r, Attending Provider Active Start: July 09, 2023 Team Status: Active Member Role Status Dates Tim Rolon DO Primary Care Provide r, Attending Provider Active Start: August 08, 2023 Team Status: Active Member Role Status Dates Tim Rolon DO Primary Care Provide r, Attending Provider Active Start: September 11, 2023 Team Status: Inactive Member Role Status Dates Tim Rolon DO Primary Care Provider Active Start: September 24, 2023 End: September 24, 2023 Kristine Oneill APRN NP-C Attending Provider Act duncan Start: September 24, 2023 End: September 24, 2023 Scheduled Active and Recently Administ ered Medications [...] - Comment: mixed 1:1 w/Lido with epi [id number]) ceFAZolin (ANCEF) 2 g in dextrose 100 mL premix IVPB (COMPLETED) 2 g, Intravenous, Administer over 30 Minutes, PHLEBOTOMIST LAB ASSISTANT TO PROCEDURE, 1 dose, Starting on Fri01/15/23 at 0758, Until Discontinued, Other, Surgical Prophylaxis, Initiate antibiotic administration 30-60 minutes prior to surgical incision and complete administration prior to surgical incision., Pre-op/Pre-Proc 0955 (Given - Provid er: Geraldo Marion, [employer] FORMER-APPOINTMENT SETTER) lidocaine-epinephrine 2 %-1:[id number] injection (CANCELED) NEEDED, Starting on Fri01/15/23 at [...] Order-specific weight), Intravenous, Administer over 1 Hours, PHLEBOTOMIST LAB ASSISTANT TO PROCEDURE, 1 dose, Starting on Fri01/15/23 [...] may be documented in a n alternate sectionGoals may be documented in an alternate section FOR RECORDS PERTAINING TO PATIENTS [...] BE BASED ON THE PRIMARY CLINICAL RECORDS. [employer] [facility]. provides no warranty or guarantee of the accuracy or completeness of information in this document.
== END 2023-10-20 20:36 | disposition home or self-care (01) ==
LOC: LAB 20:35
PROVIDERS: PCP Internal Medicine; Visit Provider Obstetrics & Gynecology
DX: Z01.419 Encounter for gynecological examination (general) (routine) without abnormal findings (principal)
CPT/HCPCS: 87624; 88175

== ENCOUNTER 2023-11-12 10:11 | Outpatient (OUT) | payer OTHER, SELFPAY ==
--- OUTSIDE RECORDS SUMMARY | 2023-11-12 10:28 | XMS_ITS | CCD ---
Author Organization [facility] Care Team Providers Care Route Specialist Name Role Phone JAMIL SMITH Referring Unavailable [...] Tim Rolon DO Primary Care Provider Raoul LEVYN-HOUSESMITH, Crystal G Unavailable Tim Rolon MD Primary [...] Care Unavailable CORI HERNÁNDEZ Attending Unavailable Raoul ELEVATOR ERECTOR HELPER-HOUSESMITH, Crystal G Unavailable DONOVAN BURKS Attending Unavailable MADONNA PARSONS Attending Unavailable DONOVAN BURKS Attending Unavailable Allergies Allergy Classification Reported Allergen(s) Allergy Type Date of Onset Reaction(s) Facility (9 sources) Seasonal allergy Propensity to adverse reactions to drug 7 Runny Nose, Congestion [facility] Work Phone: (2 sources) Pollen Propensity to adverse reactions 7 Runny nose [facility] (2 sources) Other Propensity to adverse reactions 2 Runny nose [facility] Healthcare Medications Current Medications Medication Drug [...] Indications: Difficulty falling 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 Active take 1 tablet by mouth once at b edtime Prenat MV-Min w/Zg-Ijdznp-XFO ( COMPLETE PO) Take 1 tablet by [...] 09-11-2023 Progesterone [Mass/Vol] 12.9 ng/mL . F [facility] Comment on above: Follicular phase 0.1 - 0.9 Luteal phase 1.8 - 23.9 Ovulation phase 0.1 - 12.0 First trimester 11.0 - 44.3 Second trimester 25.4 - 83.3 Third trimester 58.7 - 214.0 Postmenopausal 0.0 - 0.1Performed at: [id number] [place] [id number] Director: Ino Dougherty PhD, Phone: [phone] Serum or plasma progesterone measurement (mass/volume)on 08-08-2023 Progesterone [Mass/Vol] 11.3 ng/mL . F [facility] Comment on above: Follicular phase 0.1 - 0.9 Luteal phase 1.8 - 23.9 Ovulation phase 0.1 - 12.0 First trimester 11.0 - 44.3 Second trimester 25.4 - 83.3 Third trimester 58.7 - 214.0 Postmenopausal 0.0 - 0.1Performed at: [facility] [place], [place] [id number] Director: Ino Dougherty PhD, Phone: [phone] Serum or plasma progesterone measurement (mass/volume)on 07-09-2023 Progesterone [Mass/Vol] 16.6 ng/mL . F [facility] Comment on above: Follicular phase 0.1 - 0.9 Luteal phase 1.8 - 23.9 Ovulation phase 0.1 - 12.0 First trimester 11.0 - 44.3 Second trimester 25.4 - 83.3 Third trimester 58.7 - 214.0 Postmenopausal 0.0 - 0.1Performed at: [employer] [place], [place] [id number] Director: Ino Dougherty PhD, Phone: [phone] No Panel Informationon 06-26 Human Chorionic Gonadotropin, Quant <1 mIU/mL [facility] Comment on above: 5-50 0.2-1 [id number] 0 1-2 KVJZG842-0,000 2-3 AUMRH156-10,000 3-4 WEEKS1,000-50,000 4-5 WEEKS10,000-100,000 5-6 WEEKS15,000-200,000 6-8 WEEKS10,000-100,000 2-3 MONTHS Serum or plasma progesterone measurement (mass/volume)on 06-08-2023 Progesterone [Mass/Vol] 20.7 ng/mL . [facility] Comment on above: Follicular phase 0.1 - 0.9 Luteal phase 1.8 - 23.9 Ovulation phase 0.1 - 12.0 First trimester 11.0 - 44.3 Second trimester 25.4 - 83.3 Third trimester 58.7 - 214.0 Postmenopausal 0.0 - 0.1Performed at: [facility] [place], [place] [id number] Director: Ino Dougherty PhD, Phone: [phone] Laboratory - Chemistry and C hemistry - challengeon 05-09-2023 Free T4 [Mass/Vol] 0.77 ng/dL 0.76-1.46 [facility] No Panel Informationon 05-08 Free Triiodothyronine 2.78 pg/mL 2.18-3.98 [facility] Serum or plasma progesterone measurement (mass/volume)on 05-09-2023 Progesterone [Mass/Vol] 19.3 ng/mL . F [facility] Comment on above: Follicular phase 0.1 - 0.9 Luteal phase 1.8 - 23.9 Ovulation phase 0.1 - 12.0 First trimester 11.0 - 44.3 Second trimester 25.4 - 83.3 Third trimester 58.7 - 214.0 Postmenopausal 0.0 - 0.1Performed at: [facility] [id number] Director: Ino Dougherty PhD, Phone: [phone] BETA HCG, URINE (POC DEVICE) on 01-15-2023 Beta HCG ( test) Ql (U) Negative Negative [facility] Interpretation and review of laboratory results Normal [facility] Test performed at address of the patient encounter. [facility] CARDIAC RHYTHM (SCANNED)on 03-17-2022 [facility] CBC AND ELECTRONIC DIFFon Basophils (Bld) [#/Vol] 0.05 10*3/uL 0.00 - 0.15 K/uL [facility] Basophils/100 WBC (Bld) 0.5 % [facility] Differential cell count method Nom (Bld) Electronic Differential [facility] Eosinophils (Bld) [#/Vol] 0.12 10*3/uL 0. 00 - 0.42 K/uL [facility] Eosinophils/100 WBC (Bld) 1.2 % [facility] Erythrocyte distribution width (RBC) [Ratio] 13.1 % 10.8 - 14.9 % [facility] Hematocrit (Bld) [Volume fraction] 42.5 % 34.9 - 44.3 % [facility] Hemoglobin (Bld) [Mass/Vol] 14.3 g/dL 11.4 - 15.2 g/dL [facility] Immature granulocytes (Bld) [#/Vol] K/uL NINF - 0.08 K/uL [facility] Immature granulocytes/100 WBC (Bld) 0.3 % [facility] Lymphocytes (Bld) [#/Vol] 3.42 10*3/uL 1. 16 - 3.51 K/uL [facility] Lymphocytes/100 WBC (Bld) 32.9 % [facility] MCH (RBC) [Entitic mass] 31.1 pg 25. 9 - 33.9 pg [facility] MCHC (RBC) [Mass/Vol] 33.6 g/dL 31.4 - 35.9 g/dL [facility] MCV (RBC) [Entitic vol] 92.4 fL 79.6 - 97.7 fL [facility] Monocytes (Bld) [#/Vol] 0.62 10*3/uL 0.22 - 0.87 K/uL [facility] Monocytes/100 WBC (Bld) 6.0 % [facility] Neutrophils (Bld) [#/Vol] 6.14 10*3/uL 1. 64 - 7.28 K/uL [facility] Nucleated RBC/100 WBC (Bld) [Ratio] 0.0 % NINF [facility] Platelet mean volume (Bld) [Entitic vol] 10.8 fL 8.5 - 12.2 fL [facility] Platelets (Bld) [#/Vol] 326 10*3/uL 150 - 393 K/uL [facility] RBC (Bld) [#/Vol] 4.60 10*6/uL [facility] Segmented neutrophils/100 WBC (Bld) 59.1 % [facility] WBC (Bld) [#/Vol] 10.38 10*3/uL 3.99 - 11 .19 K/uL [facility] Basophils (Bld) [#/Vol] 0.05 10*3/uL Normal 0.00-0.15 [facility] Comment on above: Performed By: #### L [id number] #### [facility] (DEFAULT) [address] [place] [address] Basophils/100 WBC (Bld) 0.5 % Normal [facility] Comment on above: Performed By: #### L [id number] #### [facility] (DEFAULT) [address] [place] [address] DIFF STATUS Electronic Differential Normal [facility] Comment on above: Performed By: #### L [id number] #### [facility] (DEFAULT) [address] [place] [address] Eosinophils (Bld) [#/Vol] 0.12 10*3/uL Normal 0.00-0.4 2 [facility] Comment on above: Performed By: #### L [id number] #### [facility] (DEFAULT) [address] [address] Eosinophils/100 WBC (Bld) 1.2 % Normal [facility] Comment on above: Performed By: #### L [id number] #### [facility] (DEFAULT) [address] [place] [address] Hematocrit (Bld) [Volume fraction] 42.5 % Normal 34.9-44.3 [facility] Comment on above: Performed By: #### L [id number] #### [facility] (DEFAULT) [address] [address] Hemoglobin (Bld) [Mass/Vol] 14.3 g/dL Normal 11.4-15.2 [facility] Comment on above: Performed By: #### L [id number] #### [facility] (DEFAULT) [address] [address] Immature Grans % 0.3 % Normal [facility] Comment on above: Performed By: #### L [id number] #### [facility] (DEFAULT) [address] [address] Immature Grans Absolute < Normal <=0.08 [facility] Comment on above: Performed By: #### L [id number] #### [facility] (DEFAULT) [address] [place] [address] Lymphocytes (Bld) [#/Vol] 3.42 10*3/uL Normal 1.16-3.5 1 [facility] Comment on above: Performed By: #### L [id number] #### [facility] (DEFAULT) [address] [address] Lymphocytes/100 WBC (Bld) 32.9 % Normal [facility] Comment on above: Performed By: #### L [id number] #### [facility] (DEFAULT) [address] [address] MCV (RBC) [Entitic vol] 92.4 fL Normal 79.6-97.7 [facility] Comment on above: Performed By: #### L [id number] #### [facility] (DEFAULT) [address] [address] Mean Cell Hgb 31.1 pg Normal 25.9-33.9 [facility] Comment on above: Performed By: #### L [id number] #### [facility] (DEFAULT) [address] [address] Mean Cell Hgb Conc 33.6 g/dL Normal 31.4-35.9 [facility] Comment on above: Performed By: #### L [id number] #### [facility] (DEFAULT) [address] [address] Monocytes (Bld) [#/Vol] 0.62 10*3/uL Normal 0.22-0.87 [facility] Comment on above: Performed By: #### L [id number] #### [facility] (DEFAULT) [address] [address] Monocytes/100 WBC (Bld) 6.0 % Normal [facility] Comment on above: Performed By: #### L [id number] #### [facility] (DEFAULT) [address] [address] Nucleated RBC 0.0 /100 WBC Normal <=0.2 [facility] Comment on above: Performed By: #### L [id number] #### [facility] (DEFAULT) [address] [place] [address] Platelet mean volume (Bld) [Entitic vol] 10.8 fL Normal 8.5-12.2 [facility] Comment on above: Performed By: #### L [id number] #### [facility] (DEFAULT) [address] [place] [address] Platelets (Bld) [#/Vol] 326 10*3/uL Normal 150-393 [facility] Comment on above: Performed By: #### L [id number] #### [facility] (DEFAULT) [address] [place] [address] RBC (Bld) [#/Vol] 4.60 10*6/uL Normal 3.91-5.04 [facility] Comment on above: Performed By: #### L [id number] #### [facility] (DEFAULT) [address] [place] [address] RBC Distribution 13.1 % Normal 10.8-14.9 [facility] Comment on above: Performed By: #### L [id number] #### [facility] (DEFAULT) [address] [place] [address] Segs + Bands Auto 59.1 % Normal [facility] Comment on above: Performed By: #### L [id number] #### [facility] (DEFAULT) [address] [place] [address] Segs + Bands,Absolute Auto 6.14 K/uL Normal 1.64-7.28 [facility] Comment on above: Performed By: #### L [id number] #### [facility] (DEFAULT) [address] [place] [address] WBC (Bld) [#/Vol] 10.38 10*3/uL Normal 3.99-11.19 [facility] Comment on above: Performed By: #### L [id number] #### [facility] (DEFAULT) [address] [place] [address] CMPN WITHOUT GLUCOSEon 01-09 Albumin [Mass/Vol] 4.9 g/dL Normal 3.5-5.0 [facility] Comment on above: Performed By: #### C MPNG #### [facility] (DEFAULT) [address] [place] [address] ALP [Catalytic activity/Vol] 35 U/L Normal 32-126 [facility] Comment on above: Performed By: #### C MPNG #### [facility] (DEFAULT) [address] [place] [address] ALT [Catalytic activity/Vol] 19 U/L Normal 9-48 [facility] Comment on above: Performed By: #### C MPNG #### [facility] (DEFAULT) [address] [address] Anion gap [Moles/Vol] 13 mmol/L Normal 7-17 [facility] Comment on above: Performed By: #### C MPNG #### [facility] (DEFAULT) [address] [address] AST [Catalytic activity/Vol] 18 U/L Normal 10-39 [facility] Comment on above: Performed By: #### C MPNG #### [facility] (DEFAULT) [address] [address] Bilirubin [Mass/Vol] 0.3 mg/dL Normal <1.5 [facility] Comment on above: Performed By: #### C MPNG #### [facility] (DEFAULT) [address] [address] Calcium [Mass/Vol] 9.2 mg/dL Normal 8.6-10.5 [facility] Comment on above: Performed By: #### C MPNG #### [facility] (DEFAULT) [address] [address] Chloride [Moles/Vol] 102 mmol/L Normal 98-108 [facility] Comment on above: Performed By: #### C MPNG #### [facility] (DEFAULT) [address] [place] [address] CO2 [Moles/Vol] 26 mmol/L Normal 21-31 [facility] Comment on above: Performed By: #### C MPNG #### [facility] (DEFAULT) [address] [place] [address] Creatinine [Mass/Vol] 0.64 mg/dL Normal 0.50-1.20 [facility] Comment on above: Performed By: #### C MPNG #### [facility] (DEFAULT) [address] [place] [address] eGFR, CKD-EPI, Female > Normal >=60 [facility] Comment on above: Result Comment: Repo rted eGFR is based on the CKD-EPI 2020 equation using creatinine, age, and sex. Performed By: #### C MPNG #### [facility] (DEFAULT) [address] [place] [address] Potassium [Moles/Vol] 4.0 mmol/L Normal 3.5-5.0 [facility] Comment on above: Performed By: #### C MPNG #### [facility] (DEFAULT) [address] [place] [address] Protein [Mass/Vol] 7.9 g/dL Normal 6.4-8.3 [facility] Comment on above: Performed By: #### C MPNG #### [facility] (DEFAULT) [address] [place] [address] Sodium [Moles/Vol] 137 mmol/L Normal 135-145 [facility] Comment on above: Performed By: #### C MPNG #### [facility] (DEFAULT) [address] [place] [address] Urea nitrogen [Mass/Vol] 12 mg/dL Normal 7-25 [facility] Comment on above: Performed By: #### C MPNG #### [facility] (DEFAULT) [address] [place] [address] Urea nitrogen/Creatinine [Mass ratio] 19 mg/mg Normal [facility] Comment on above: Performed By: #### C MPNG #### [facility] (DEFAULT) [address] [place] [address] HCG ( test) Ql (U)O rdered By: Jamil Santos on 01-09-2023 Beta HCG ( test) Ql Negative Negative [facility] Interpretation and review of laboratory results [facility] QUALITATIVE, URINEon Beta HCG ( test) Ql (U) Negative Normal Negative [facility] Comment on above: Performed By: #### U HCG #### [facility] (DEFAULT) [address] [place] [address] LAMOTRIGINE LEVELon 01-10-20 23 Lamotrigine, S 4.3 mcg/mL Normal 3.0-15.0 [facility] Comment on above: Result Comment: ADDITIONAL INFORMATION This test was developed and its performance characteristics determined by [facility] in a manner consistent with CLIA requirements. This test has not been cleared or approved by the U.S. Food and Drug Administration. Test Performed by: [facility] [place] [address] Take Off Man: Juno Vega M.D. Ph.D.; CLIA# [id number] Performed By: #### Y LAMO #### [facility] (DEFAULT) [address] [place] [address] PT,INR,PTTon 01-09-2023 aPTT Coag (PPP) [Time] 31.1 s OS [facility] INR Coag (Bld) [Relative time] 1.0 {INR} 0.9 - 1.1 [facility] Interpretation and review of laboratory results Normal [facility] PT Coag (PPP) [Time] [facility].0 [facility] a[facility] Coag (Bld) [Time] 31.1 s Normal 24.0-34.3 [facility] Comment on above: Performed By: #### P TPTT #### [facility] (DEFAULT) [address] [place] [address] INR Coag (PPP) [Relative time] 1.0 {INR} Normal 0.9-1.1 [facility] Comment on above: Performed By: #### P TPTT #### [facility] (DEFAULT) [address] [place] [address] PT Coag (PPP) [Time] 13.0 s Normal 11.9-14.2 [facility] Comment on above: Performed By: #### P TPTT #### [facility] (DEFAULT) [address] [place] [address] SCREEN: MRSA/MSSAOrdered By: Alexandra Slater on 01-09-2023 Interpretation and review of laboratory results Abnormal [facility] Methicillin Resistant S. Aureus By Pcr Negative Negative [facility] Staphylococcus Aureus By Pcr Positive Abnormal Negative [facility] This test was performed using [...] by the Clinical Microbiology Laboratory at [facility]. It has not been cleared or approved by the FDA.The laboratory is regulated under CLIA as qualified to perform high-complexity testing. This test is used for clinical purposes. It should not be regarded as investigational or for research. [facility] SCREEN: MRSA/MSSAon 01-10-20 Methicillin Resistant S. Aureus By Pcr Negative Normal Negative [facility] Comment on above: Order Comment: This test [...] by the Clinical Microbiology Laboratory at [facility]. It has not been cleared or approved by the FDA.The laboratory is regulated under CLIA as qualified to perform high-complexity testing. This test is used for clinical purposes. It should not be regarded as investigational or for research. Performed By: #### S CRSB #### [facility] (DEFAULT) [address] [address] Staphylococcus Aureus By Pcr Positive Abnormal Negative [facility] Comment on above: Order Comment: This test [...] by the Clinical Microbiology Laboratory at [facility]. It has not been cleared or approved by the FDA.The laboratory is regulated under CLIA as qualified to perform high-complexity testing. This test is used for clinical purposes. It should not be regarded as investigational or for research. Performed By: #### S CRSB #### [facility] (DEFAULT) [address] [place] [address] VITAMIN D (25-HYDROXY,TOTAL) on 01-09-2023 25-OH Vitamin D Total 35.2 ng/mL Normal 30.0-100.0 [facility] Comment on above: Order Comment: Vitam in D values have been shown to be falsely decreased in lipemic samples and should be interpreted with caution. Result Comment: <10 Deficiency 10-29 Insufficiency 30-100 Optimal Level >100 Possible Toxicity Performed By: #### D 25OH #### [facility] (DEFAULT) [address] [address] XR Cervical and thoracic and lumbar spine [...] IMPRESSION: Intact vagus nerve stimulator as described. [facility] Radiology Study observation (narrative) [facility] Cervical and thoracic and lumbar spine ViewsOrdered By: Alice Crespo on 01-09-2023 [facility] Work Phone: XR STIMULATOR/INTRATHECAL PU [...] Intact vagus nerve stimulator as described. Normal [facility] PROGESTERONEon 05-24-2022 Progesterone 5.5 ng/mL Normal [facility] Comment on above: Result Comment: Foll icular phase 0.1 - 0.9 Luteal phase 1.8 - 23.9 Ovulation phase 0.1 - 12.0 First trimester 11.0 - 44.3 Second trimester 25.4 - 83.3 Third trimester 58.7 - 214.0 Postmenopausal 0.0 - 0.1 Performed By: #### P DANIEL #### [facility] [address] [place] [address] Dr. Nicol Oswald LAMOTRIGINEon 05-02-2022 Lamotrigine, Serum 4.7 ug/mL Normal 2.0-20.0 [facility] Comment on above: Result Comment: Dete ction Limit = 1.0 Performed By: #### P DANIEL #### [facility] [address] [place] [address] Dr. Nicol Oswald CBC AUTO DIFFon 04-30-2022 BASO # 0.0 103/ul Normal 0.0-0.1 [facility] Comment on above: Performed By: #### C BC #### [facility] [address] [place] [address] Dr. Nicol Oswald Basophils/100 WBC (Bld) 0.4 % Normal 0.2-2.0 [facility] Comment on above: Performed By: #### C BC #### [facility] [address] [place] [address] Dr. Nicol Oswald EO # 0.2 103/ul Normal 0.0-0.7 [facility] Comment on above: Performed By: #### C BC #### [facility] [address] [place] [address] Dr. Nicol Oswald Eosinophils/100 WBC (Bld) 1.9 % Normal 0.9-7.0 [facility] Comment on above: Performed By: #### C BC #### [facility] [address] [place] [address] Dr. Nicol Oswald Erythrocyte distribution width (RBC) [Ratio] 12.8 % Normal 11.0-15.0 [facility] Comment on above: Performed By: #### C BC #### [facility] [address] [place] [address] Dr. Nicol Oswald Hematocrit (Bld) [Volume fraction] 40.4 % Normal 36.0-48.0 [facility] Comment on above: Performed By: #### C BC #### [facility] [address] [place] [address] Dr. Nicol Oswald Hemoglobin (Bld) [Mass/Vol] 13.6 g/dL Normal 12.0-16.0 [facility] Comment on above: Performed By: #### C BC #### [facility] [facility] [address] [place] [address] Dr. Nicol Oswald IG # 0.03 10e3/ul Normal 0.00-0.03 [facility] Comment on above: Performed By: #### C BC #### [facility] [address] [place] [address] Dr. Nicol Oswald IG % 0.4 % Normal 0.0-0.5 [facility] Comment on above: Performed By: #### C BC #### [facility] [address] [place] [address] Dr. Nicol Oswald LYMPH # 3.1 103/ul Normal 1.2-3.8 [facility] Comment on above: Performed By: #### C BC #### [facility] [address] [place] [address] Dr. Nicol Oswald Lymphocytes/100 WBC (Bld) 36.4 % Normal 20.5-60.0 [facility] Comment on above: Performed By: #### C BC #### [facility] [address] [place] [address] Dr. Nicol Oswald MANUAL DIFF REQ NO Normal [facility] Comment on above: Performed By: #### C BC #### [facility] [address] [place] [address] Dr. Nicol Oswald MCH (RBC) [Entitic mass] 31.0 pg Normal 26.7-34.0 [facility] Comment on above: Performed By: #### C BC #### [facility] [address] [place] [address] Dr. Nicol Oswald MCHC (RBC) [Mass/Vol] 33.7 g/dL Normal 29.9-35.2 [facility] Comment on above: Performed By: #### C BC #### [facility] [address] [place] [address] Dr. Nicol Oswald MCV (RBC) [Entitic vol] 92.0 fL Normal 81.0-99.0 [facility] Comment on above: Performed By: #### C BC #### [facility] [address] [place] [address] Dr. Nicol Oswald MONO # 0.7 103/ul Normal 0.3-0.8 [facility] Comment on above: Performed By: #### C BC #### [facility] [address] [place] [address] Dr. Nicol Oswald Monocytes/100 WBC (Bld) 7.7 % Normal 1.7-12.0 [facility] Comment on above: Performed By: #### C BC #### [facility] [address] [place] [address] Dr. Nicol Oswald NEUT # 4.5 103/ul Normal 1.4-6.5 [facility] Comment on above: Performed By: #### C BC #### [facility] [address] [place] [address] Dr. Nicol Oswald Neutrophils/100 WBC (Bld) 53.2 % Normal 43.0-75.0 [facility] Comment on above: Performed By: #### C BC #### [facility] [address] [place] [address] Dr. Nicol Oswald Platelet mean volume (Bld) [Entitic vol] 11.0 fL Normal 9.5-13.5 [facility] Comment on above: Performed By: #### C BC #### [facility] [address] [place] [address] Dr. Nicol Oswald PLT 282 103/ul Normal 150-450 [facility] Comment on above: Performed By: #### C BC #### [facility] [address] [place] [address] Dr. Nicol Oswald RBC 4.39 106/ul Normal 4.20-5.40 [facility] Comment on above: Performed By: #### C BC #### [facility] [address] [place] [address] Dr. Nicol Oswald WBC 8.4 103/ul Normal 4.0-11.0 [facility] Comment on above: Performed By: #### C BC #### [facility] [address] [place] [address] Dr. Nicol Oswald LIVER PROFILEon 04-30-2022 Albumin [Mass/Vol] 4.1 g/dL Normal 3.4-5.0 [facility] Comment on above: Performed By: #### P DANIEL #### [facility] [address] [place] [address] Dr. Nicol Oswald Albumin/Globulin [Mass ratio] 1.2 {ratio} Normal [facility] Comment on above: Performed By: #### P DANIEL #### [facility] [address] [place] [address] Dr. Nicol Oswald ALP [Catalytic activity/Vol] 52 U/L Normal 46-116 [facility] Comment on above: Performed By: #### P DANIEL #### [facility] [address] [place] [address] Dr. Nicol Oswald ALT [Catalytic activity/Vol] 23 U/L Normal 14-59 [facility] Comment on above: Performed By: #### P DANIEL #### [facility] [address] [place] [address] Dr. Nicol Oswald AST [Catalytic activity/Vol] 17 U/L Normal 15-37 [facility] Comment on above: Performed By: #### P JASONES #### [facility] [address] [address] [address] Nicol Oswald BILI, CONJUGATED 0.1 mg/dL Normal 0.0-0.2 [facility] Comment on above: Performed By: #### P ROGES #### [facility] [address] [address] [address] Nicol Oswald Bilirubin [Mass/Vol] 0.2 mg/dL Normal 0.2-1.0 [facility] Comment on above: Performed By: #### P ROGES #### [facility] [address] [place] [address] Dr. Nicol Oswald Globulin (S) [Mass/Vol] 3.4 g/dL Normal [facility] Comment on above: Performed By: #### P ROGES #### [facility] [address] [place] [address] Dr. Nicol Oswald Protein [Mass/Vol] 7.5 g/dL Normal 6.4-8.2 [facility] Comment on above: Performed By: #### P ROGES #### [facility] [address] [place] [address] Dr. Nicol Oswald PROF CHEM 8 (BAS METB)on Anion gap [Moles/Vol] 8.5 mmol/L Normal [facility] Comment on above: Performed By: #### P ROGES #### [facility] [address] [place] [address] Dr. Nicol Oswald Calcium [Mass/Vol] 9.4 mg/dL Normal 8.5-10.1 [facility] Comment on above: Performed By: #### P ROGES #### [facility] [address] [place] [address] Dr. Nicol Oswald Chloride [Moles/Vol] 102 mmol/L Normal 98-107 [facility] Comment on above: Performed By: #### P ROGES #### [facility] [address] [place] [address] Dr. Nicol Oswald CO2 [Moles/Vol] 30.4 mmol/L Normal 21.0-32.0 [facility] Comment on above: Performed By: #### P ROGES #### [facility] [address] [address] [address] Nicol Oswald Creatinine [Mass/Vol] 0.57 mg/dL Normal 0.55-1.02 [facility] Comment on above: Performed By: #### P ROGES #### [facility] [address] [address] [address] Nicol Oswald EGFR-AF BURUNDIAN >60 Normal >=60 [facility] Comment on above: Performed By: #### P ROGES #### [facility] [address] [address] [address] Nicol Oswald EGFR-NON AF BURUNDIAN >60 Normal >=60 [facility] Comment on above: Performed By: #### P ROGES #### [facility] [address] [place] [address] Dr. Nicol Oswald Glucose [Mass/Vol] 89 mg/dL Normal 74-106 [facility] Comment on above: Performed By: #### P ROGES #### [facility] [address] [address] [address] Nicol Oswald Potassium [Moles/Vol] 3.9 mmol/L Normal 3.5-5.1 [facility] Comment on above: Performed By: #### P ROGES #### [facility] [address] [place] [address] Dr. Nicol Oswald Sodium [Moles/Vol] 137 mmol/L Normal 136-145 [facility] Comment on above: Performed By: #### P ROGES #### [facility] [address] [address] [address] Nicol Oswald Urea nitrogen [Mass/Vol] 10.0 mg/dL Normal 7.0-18.0 [facility] Comment on above: Performed By: #### P ROGES #### [facility] [address] [address] [address] Nicol Oswald Urea nitrogen/Creatinine [Mass ratio] 17.5 mg/mg Normal [facility] Comment on above: Performed By: #### P ROGES #### [facility] [address], [place] [address] Dr. Nicol Oswald ESTROGENon 04-19-2022 Estrogens, Total 124 pg/mL Normal [facility] Comment on above: Result Comment: Prep ubertal < 40 Female Cycle: 1-10 Days 16 - 328 11-20 Days 34 - 501 21-30 Days 48 - 350 Post-Menopausal 40 - 244 Performed By: #### Elli ESPINAL #### [facility] [address] [address] [address] Nicol Oswald DHEA SERUMon 04-18-2022 Dehydroepiandrosterone (DHEA) 371 ng/dL Normal 31-701 [facility] Comment on above: Result Comment: Age [...] 89 Performed By: #### P DANIEL #### [facility] [address] [place] [address] Dr. Nicol Oswald DHEA-SULFATEon 04-16-2022 DHEA-Sulfate 371.0 ug/dL Normal 84.8-378.0 [facility] Comment on above: Performed By: #### Tenzin SANCHEZ #### [facility] [address] [place] [address] Dr. Nicol Oswald FSHon 04-16-2022 FSH 5.6 mIU/mL Normal [facility] Comment on above: Result Comment: Adul t Female: Follicular phase 3.5 - 12.5 Ovulation phase 4.7 - 21.5 Luteal phase 1.7 - 7.7 Postmenopausal 25.8 - 134.8 Performed By: #### Tenzin SANCHEZ #### [facility] [address] [place] [address] Dr. Nicol Oswald LUTEINIZING HORMONE (LH)on 0 04-16-2022 LH 12.9 mIU/mL Normal [facility] Comment on above: Result Comment: Adul t Female: Follicular phase 2.4 - 12.6 Ovulation phase 14.0 - 95.6 Luteal phase 1.0 - 11.4 Postmenopausal 7.7 - 58.5 Performed By: #### P ROGES #### [facility] [address], [place] [address] Dr. Nicol Oswald PROGESTERONEon 04-16-2022 Progesterone 0.2 ng/mL Normal [facility] Comment on above: Result Comment: Foll icular phase 0.1 - 0.9 Luteal phase 1.8 - 23.9 Ovulation phase 0.1 - 12.0 First trimester 11.0 - 44.3 Second trimester 25.4 - 83.3 Third trimester 58.7 - 214.0 Postmenopausal 0.0 - 0.1 Performed By: #### P DANIEL #### [facility] [address], [place] [address] Dr. Nicol Oswald PROLACTINon 04-16-2022 Prolactin 7.1 ng/mL Normal 4.8-23.3 [facility] Comment on above: Performed By: #### P ROLAC #### [facility] [address] [address] [address] Nicol Oswald US PELVIS AND TRANSVAGon [...] CYDNEY VALDEZ Date: 2022-04-16 08:48 Normal [facility] CBC AUTO DIFFon 04-15-2022 BASO # 0.0 103/ul Normal 0.0-0.1 [facility] Comment on above: Performed By: #### C BC #### [facility] [address] [place] [address] Dr. Nicol Oswald Basophils/100 WBC (Bld) 0.5 % Normal 0.2-2.0 [facility] Comment on above: Performed By: #### C BC #### [facility] [address] [place] [address] Dr. Nicol Oswald EO # 0.2 103/ul Normal 0.0-0.7 [facility] Comment on above: Performed By: #### C BC #### [facility] [address] [place] [address] Dr. Nicol Oswald Eosinophils/100 WBC (Bld) 2.1 % Normal 0.9-7.0 [facility] Comment on above: Performed By: #### C BC #### [facility] [address] [place] [address] Dr. Nicol Oswald Erythrocyte distribution width (RBC) [Ratio] 12.5 % Normal 11.0-15.0 [facility] Comment on above: Performed By: #### C BC #### [facility] [address] [place] [address] Dr. Nicol Oswald Hematocrit (Bld) [Volume fraction] 44.7 % Normal 36.0-48.0 [facility] Comment on above: Performed By: #### C BC #### [facility] [address] [place] [address] Dr. Nicol Oswald Hemoglobin (Bld) [Mass/Vol] 14.3 g/dL Normal 12.0-16.0 [facility] Comment on above: Performed By: #### C BC #### [facility] [address] [place] [address] Dr. Nicol Oswald IG # 0.01 10e3/ul Normal 0.00-0.03 [facility] Comment on above: Performed By: #### C BC #### [facility] [address] [place] [address] Dr. Nicol Oswald IG % 0.1 % Normal 0.0-0.5 [facility] Comment on above: Performed By: #### C BC #### [facility] [address] [place] [address] Dr. Nicol Oswald LYMPH # 2.0 103/ul Normal 1.2-3.8 [facility] Comment on above: Performed By: #### C BC #### [facility] [address] [place] [address] Dr. Nicol Oswald Lymphocytes/100 WBC (Bld) 26.0 % Normal 20.5-60.0 [facility] Comment on above: Performed By: #### C BC #### [facility] [address] [place] [address] Dr. Nicol Oswald MANUAL DIFF REQ NO Normal [facility] Comment on above: Performed By: #### C BC #### [facility] [address] [place] [address] Dr. Nicol Oswald MCH (RBC) [Entitic mass] 30.8 pg Normal 26.7-34.0 [facility] Comment on above: Performed By: #### C BC #### [facility] [address] [place] [address] Dr. Nicol Oswald MCHC (RBC) [Mass/Vol] 32.0 g/dL Normal 29.9-35.2 [facility] Comment on above: Performed By: #### C BC #### [facility] [address] [place] [address] Dr. Nicol Oswald MCV (RBC) [Entitic vol] 96.3 fL Normal 81.0-99.0 [facility] Comment on above: Performed By: #### C BC #### [facility] [address] [place] [address] Dr. Nicol Oswald MONO # 0.6 103/ul Normal 0.3-0.8 [facility] Comment on above: Performed By: #### C BC #### [facility] [address] [place] [address] Dr. Nicol Oswald Monocytes/100 WBC (Bld) 7.3 % Normal 1.7-12.0 [facility] Comment on above: Performed By: #### C BC #### [facility] [address] [place] [address] Dr. Nicol Oswald NEUT # 4.9 103/ul Normal 1.4-6.5 [facility] Comment on above: Performed By: #### C BC #### [facility] [address] [place] [address] Dr. Nicol Oswald Neutrophils/100 WBC (Bld) 64.0 % Normal 43.0-75.0 [facility] Comment on above: Performed By: #### C BC #### [facility] [address] [place] [address] Dr. Nicol Oswald Platelet mean volume (Bld) [Entitic vol] 11.3 fL Normal 9.5-13.5 [facility] Comment on above: Performed By: #### C BC #### [facility] [address] [place] [address] Dr. Nicol Oswald PLT 302 103/ul Normal 150-450 [facility] Comment on above: Performed By: #### C BC #### [facility] [address] [place] [address] Dr. Nicol Oswald RBC 4.64 106/ul Normal 4.20-5.40 [facility] Comment on above: Performed By: #### C BC #### [facility] [address] [place] [address] Dr. Nicol Oswald WBC 7.7 103/ul Normal 4.0-11.0 [facility] Comment on above: Performed By: #### C BC #### [facility] [address] [place] [address] Dr. Nicol Oswald FREE T4on 04-15-2022 Free T4 [Mass/Vol] 0.80 ng/dL Normal 0.76-1.46 [facility] Comment on above: Performed By: #### F T4 #### [facility] [address] [place] [address] Dr. Nicol Oswald GLYCOHEMOGLOBIN A1Con 2022 ADA RECOMMENDATION SEE BELOW Normal [facility] Comment on above: Result Comment: ADA RECOMMENDED LIMIT 4.0 - 6.0 ADA THERAPEUTIC TARGET < 7.0 ACTION SUGGESTED > 7.0 Performed By: #### A 1C #### [facility] [address] [place] [address] Dr. Nicol Oswald Glucose [Mass/Vol] 114 mg/dL Normal [facility] Comment on above: Performed By: #### A 1C #### [facility] [address] [place] [address] Dr. Nicol Oswald HbA1c (Bld) [Mass fraction] 5.6 % Normal 4.5-6.2 [facility] Comment on above: Performed By: #### A 1C #### [facility] [address] [place] [address] Dr. Nicol Oswald PREG QUANT HCGon 04-15-2022 HCG QUANT <1 Normal [facility] Comment on above: Performed By: #### P REGHEMALATHA, TSH #### [facility] [address] [place] [address] Dr. Nicol Oswald HCG RANGE SEE BELOW Normal [facility] Comment on above: Result Comment: 5-50 0.2-1 WEEK 50-500 1-2 WEEKS 100-5,000 2-3 WEEKS 500-10,000 3-4 WEEKS 1,000-50,000 4-5 WEEKS 10,000-100,000 5-6 WEEKS 15,000-200,000 6-8 WEEKS 10,000-100,000 2-3 MONTHS Performed By: #### P REGSimónNT, TSH #### [facility] [address] [place] [address] Dr. Nicol Oswald TSHon 04-15-2022 TSH 1.312 uIU/mL Normal 0.358-3.740 [facility] Comment on above: Performed By: #### P REGQNT, TSH #### [facility] [address] [place] [address] Dr. Nicol Oswald PAP ACOG PANEL 2: 21 to 29on 08-31-2021 . . Normal [facility] Comment on above: Performed By: #### P DANIEL #### [facility] [address] [address] [address] Nicol Oswald Age Gdln ACOG Testing 21-29 [facility] Comment on above: Performed By: #### P ROGES #### [facility] [address] [address] [address] Nicol Oswald DIAGNOSIS: Comment [facility] Comment on above: Result Comment: NEGA TIVE FOR INTRAEPITHELIAL LESION OR MALIGNANCY. THIS SPECIMEN WAS RESCREENED PART OF OUR HATCH TEND[employer] PROGRAM. Performed By: #### P ROGES #### [facility] [address] [address] [address] Nicol Osawld Methodology: Comment [facility] Comment on above: Result Comment: This liquid based ThinPrep(R) pap test was screened with the use of an image guided system. Performed By: #### P ROGES #### [facility] [address] [place] [address] Dr. Nicol Oswald Note: Comment [facility] Comment on above: Result Comment: The Pap smear is a screening test designed to aid in the detection of premalignant and malignant conditions of the uterine cervix. It is not a diagnostic procedure and should not be used as the sole means of detecting cervical cancer. Both false-positive and false-negative reports do occur. . Performed By: #### P ROGES #### [facility] [address] [place] [address] Dr. Nicol Oswald Performed by: Comment Normal [facility] Comment on above: Result Comment: Mireille Blanco, [employer]er (ASCP) Performed By: #### P ROGES #### [facility] [address] [place] [address] Dr. Nicol Oswald QC reviewed by: Comment Normal [facility] Comment on above: Result Comment: Tahira Roque, [employer] And Compressor Assembler (ASCP) Performed By: #### P ROGES #### [facility] [address] [place] [address] Dr. Nicol Oswald Reflex Criteria: Comment [facility] Comment on above: Result Comment: The HPV DNA reflex criteria were not met with this specimen result therefore, no HPV testing was performed. . Performed By: #### P DANIEL #### [facility] [address], [place] [address] Dr. Nicol Oswald Specimen adequacy: Comment Normal [facility] Comment on above: Result Comment: Sati sfactory for evaluation. Endocervical and/or squamous metaplastic cells (endocervical component) are present. Performed By: #### P DANIEL #### [facility] [address] [address] [address] Nicol Oswald CBC Auto Diff Reflex Manualo n 02-18-2019 Automated Absolute Neutrophil 5.73 10*3/mm3 Normal [facility] Comment on above: Result Comment: Auto mated Absolute Neutrophil Count (ANC) is directly measured using a hematology instrument. ANC determined from manual differential cell count may differ. No [facility] reference range has been validated for this assay. Performed By: #### C D #### [place] [address] Basophil 0.5 % Normal 0.0-1.0 [facility] Comment on above: Performed By: #### C D #### [place] [address] Differential Type Automated Normal [facility] Comment on above: Performed By: #### C D #### [place] [address] Eosinophil 1.6 % Normal 1.0-4.0 [facility] Comment on above: Performed By: #### C D #### [place] [address] Erythrocyte distribution width (RBC) [Ratio] 13.4 % Normal 10-14.1 [facility] Comment on above: Performed By: #### C D #### [place] [address] Lymphocyte 22.6 % Low 24.0-44.0 [facility] Comment on above: Performed By: #### C D #### [place] [address] MCH (RBC) [Entitic mass] 30.7 pg Normal 26-34 [facility] Comment on above: Performed By: #### C D #### Performed at [address] [address] MCHC (RBC) [Mass/Vol] 33.2 % Normal 31.0-37.0 [facility] Comment on above: Performed By: #### C D #### Performed at [address] [address] MCV (RBC) [Entitic vol] 92.4 fL Normal 80-100 [facility] Comment on above: Performed By: #### C D #### Performed at [address] [address] Monocyte 8.2 % High 1.0-7.0 [facility] Comment on above: Performed By: #### C D #### Performed at [address] [address] Neutrophil 67.1 % Normal 41.0-77.0 [facility] Comment on above: Performed By: #### C D #### Performed at [address] [address] Platelet mean volume (Bld) [Entitic vol] 11.5 fL Normal 9.3-13.0 [facility] Comment on above: Performed By: #### C D #### Performed at [address] [address] Platelets (Bld) [#/Vol] 268 10*3/uL Normal 140-440 [facility] Comment on above: Performed By: #### C D #### Performed at [address] [address] RBC (Bld) [#/Vol] 4.60 10*6/uL Normal 4.0-5.2 [facility] Comment on above: Performed By: #### C D #### Performed at [address] [address] WBC (Bld) [#/Vol] 8.6 10*3/uL Normal 4.5-11 [facility] Comment on above: Performed By: #### C D #### Performed at [address] [place] [address] Comprehensive Metabolic Pane mehran 02-18-2019 Albumin [Mass/Vol] 4.7 g/dL Normal 3.4-5.2 [facility] ALP [Catalytic activity/Vol] 47 U/L Low 50-136 [facility] ALT [Catalytic activity/Vol] 32 U/L Normal <40 [facility] AST [Catalytic activity/Vol] 29 U/L Normal 15-50 [facility] Bilirubin Ql (U) 0.2 mg/dL Normal 0.1-1.0 [facility] Calcium [Mass/Vol] 9.8 mg/dL Normal 8-10.5 [facility] Chloride [Moles/Vol] 104 mmol/L Normal 95-106 [facility] CO2 [Moles/Vol] 25 mmol/L Normal 24-35 [facility] Creatinine [Mass/Vol] 0.52 mg/dL Normal 0.5-1 [facility] Glucose [Mass/Vol] 135 mg/dL High 60-115 [facility] Potassium [Moles/Vol] 4.5 mmol/L Normal 3.7-5.3 [facility] Protein [Mass/Vol] 8.0 g/dL Normal 6.4-8.4 [facility] Sodium [Moles/Vol] 140 mmol/L Normal 135-145 [facility] Urea nitrogen [Mass/Vol] 15 mg/dL Normal 5-18 [facility] Valproic Acidon 02-18-2019 Valproic Acid 47.1 ug/mL Low 50.0-100.0 [facility] PAP, THIN PREP WITH IMAGINGo n 06-29-2018 PAP, THIN PREP WITH IMAGING Normal [facility] Comment on above: Result Comment: INTE RPRETATION Thin Prep Image-Guided Pap Test (Cervical/Endocervical) NEGATIVE FOR INTRAEPITHELIAL LESION /MALIGNANCY Satisfactory for evaluation (Endocervical/transformation zone component present) [facility]/06/27/2018 The Pap test is a screening test, [...] 05/18/18 ICD-CM DIAGNOSIS CODE(S) Z01.419 [facility] For Physical Chemistry Professor Exam (general) (routine) W/o Abn Findings * EFFECTIVE 06/08/2018 * * CLINICAL CHEMISTRY PLATFORM CHANGES ARE ASSOCIATED WITH * * REFERENCE RANGE CHANGES FOR A NUMBER OF ANALYTES. PLEASE * * REVIEW REFERENCE INTERVALS CAREFULLY * Pathology [employer] [employer]. [address] [place] [address] CLIA No. [id number] CAP Accreditation No. [id number] Panel Beater: Johnson Garland M.D. [employer] Accession Number: [id number] Performed By: #### P L PAP W/IMAGE #### [address] [address] [address] Nucleic-Acid Probe-Endoce rvical Swabon 06-24-2018 CT Nucleic-Acid Probe-Endocervical Swab Negative Normal NEGATIVE [facility] Comment on above: Performed By: #### G C Amp Endocerv, CT Amp Endocerv #### [address] [address] Age at specimen collection = Normal [facility] Comment on above: Performed By: #### G C Amp Endocerv, CT Amp Endocerv #### [address] [place], [place] [id number] Performed By: #### P L PAP W/IMAGE #### [facility] [address] [place], [place] [id number] GC Nucleic-Acid Probe-Endoce rvical Swabon 06-24-2018 GC Nucleic-Acid Probe-Endocervical Swab Negative Normal NEGATIVE [facility] Comment on above: Performed By: #### G C Amp Endocerv, CT Amp Endocerv #### [facility] [address], [place] [id number] Platelet Functionon 03-24-19 19 Collagen/ADP 148 sec High 67-112 [facility] Comment on above: Performed By: #### P FA #### [facility] [address] [place] [address] Collagen/EPI 228 sec High 85-172 [facility] Comment on above: Performed By: #### P FA #### [facility] [address] [place] [address] Interpretation Abnormal platelet function. Normal [facility] Comment on above: Result Comment: Comm [...] established. Performed By: #### P FA #### [facility] [address] [place] [address] XR ANKLE RIGHT STANDARDon XR ANKLE RIGHT STANDARD Radiology exam i s complete. No Radiologist dictation. Please follow up with ordering provider. Final result Normal [facility] Vital Signs Date Time Vital Sign Value Performing Clinician Facility 09-24-2023 10:29-0400 Body height 170.18 cm [facility] 09-24-2023 10:29-0400 Body mass index (BMI) [Ratio] 30.2 kg/m2 [facility] 09-24-2023 10:29-0400 Body weight 87.54 kg [facility] 09-24-2023 10:29-0400 Diastolic blood pressure 78 mm[Hg] [facility] 09-24-2023 10:29-0400 Heart rate 67 /min [facility] 09-24-2023 10:29-0400 SaO2% (BldA) [Mass fraction] 98 % [facility] 09-24-2023 10:29-0400 Systolic blood pressure 112 mm[Hg] [facility] 08-21-2023 14:43-0400 Body height 161.3 cm Cori Maturu V, DO Work Phone: [facility] Comment on above: verbal 08-21-2023 14:43-0400 Body mass index (BMI) [Ratio] 34.59 kg/m2 Cori Maturu V, DO Work Phone: [facility] 08-21-2023 14:43-0400 Body temperature 98.29 [degF] Cori Maturu V, DO Work Phone: [facility] 08-21-2023 14:43-0400 Body weight 89.99 kg Cori Maturu V, DO Work Phone: [facility] 08-21-2023 14:43-0400 Diastolic blood pressure 76 mm[Hg] Cori Maturu V, DO Work Phone: [facility] 08-21-2023 14:43-0400 Heart rate 88 /min Cori Maturu V, DO Work Phone: [facility] 08-21-2023 14:43-0400 Systolic blood pressure 130 mm[Hg] Cori Maturu V, DO Work Phone: [facility] 07-07-2023 14:37-0400 Body height 170.18 cm [facility] 07-07-2023 14:37-0400 Body mass index (BMI) [Ratio] 30.8 kg/m2 [facility] 07-07-2023 14:37-0400 Body weight 89.35 kg [facility] 07-07-2023 14:37-0400 Diastolic blood pressure 78 mm[Hg] [facility] 07-07-2023 14:37-0400 Heart rate 81 /min [facility] 07-07-2023 14:37-0400 SaO2% (BldA) [Mass fraction] 98 % [facility] 07-07-2023 14:37-0400 Systolic blood pressure 112 mm[Hg] [facility] 05-28-2023 14:04-0400 Body height 161.3 cm Riana Raoul ELEVATOR ERECTOR HELPER-HOUSESMITH Work Phone: [facility] 05-28-2023 14:04-0400 Body mass index (BMI) [Ratio] 34.09 kg/m2 Crystal Raoul ELEVATOR ERECTOR HELPER-HOUSESMITH Work Phone: [facility] 05-28-2023 14:04-0400 Body temperature 98.01 [degF] Crystal Raoul ELEVATOR ERECTOR HELPER-HOUSESMITH Work Phone: [facility] 05-28-2023 14:04-0400 Body weight 88.68 kg Riana Raoul ELEVATOR ERECTOR HELPER-HOUSESMITH Work Phone: [facility] 05-28-2023 14:04-0400 Diastolic blood pressure 74 mm[Hg] Crystal Raoul ELEVATOR ERECTOR HELPER-HOUSESMITH Work Phone: [facility] 05-28-2023 14:04-0400 Heart rate 92 /min Crystal Raoul ELEVATOR ERECTOR HELPER-HOUSESMITH Work Phone: [facility] 05-28-2023 14:04-0400 Systolic blood pressure 122 mm[Hg] Riana Raoul ELEVATOR ERECTOR HELPER-HOUSESMITH Work Phone: [facility] 04-22-2023 13:04-0500 Body mass index (BMI) [Ratio] 34 kg/m2 Donovan Kimmie DO Work Phone: [facility] 04-22-2023 13:04-0500 Body weight 88.45 kg Donovan Kimmie DO Work Phone: [facility] 04-22-2023 13:04-0500 Diastolic blood pressure 78 mm[Hg] Donovan Kimmie DO Work Phone: [facility] 04-22-2023 13:04-0500 Systolic blood pressure 120 mm[Hg] Donovan Kimmie DO Work Phone: [facility] 02-14-2023 15:48-0500 Body height 161.3 cm Riana Raoul ELEVATOR ERECTOR HELPER-HOUSESMITH Work Phone: [facility] Comment on above: verbal 02-14-2023 15:48-0500 Body mass index (BMI) [Ratio] 34.82 kg/m2 Riana Chinchilla ELEVATOR ERECTOR HELPER-HOUSESMITH Work Phone: [facility] 02-14-2023 15:48-0500 Body temperature 97.9 [degF] Riana Raoul ELEVATOR ERECTOR HELPER-HOUSESMITH Work Phone: [facility] 02-14-2023 15:48-0500 Body weight 90.58 kg Riana Raoul ELEVATOR ERECTOR HELPER-HOUSESMITH Work Phone: [facility] 02-14-2023 15:48-0500 Diastolic blood pressure 79 mm[Hg] Riana Raoul ELEVATOR ERECTOR HELPER-HOUSESMITH Work Phone: [facility] 02-14-2023 15:48-0500 Heart rate 107 /min Riana Raoul ELEVATOR ERECTOR HELPER-HOUSESMITH Work Phone: [facility] 02-14-2023 15:48-0500 Systolic blood pressure 133 mm[Hg] Riana Raoul ELEVATOR ERECTOR HELPER-HOUSESMITH Work Phone: [facility] 01-15-2023 13:50-0500 Body temperature 97.5 [degF] Evy Verma MD Work Phone: [facility] 01-15-2023 13:50-0500 Diastolic blood pressure 79 mm[Hg] Evy Verma MD Work Phone: [facility] 01-15-2023 13:50-0500 Heart rate 78 /min Evy Verma MD Work Phone: [phone] [place] [address] 01-15-2023 13:50-0500 Respiratory rate 16 /min Evy Verma MD Work Phone: [phone])[phone] [place] [address] 01-15-2023 13:50-0500 SaO2% (BldA) [Mass fraction] 98 % Evy Verma MD Work Phone: [phone] [address] 01-15-2023 13:50-0500 Systolic blood pressure 117 mm[Hg] Evy Verma MD Work Phone: [phone])[phone] [place] [address] 01-15-2023 07:50-0500 Body height 161.3 cm Evy Verma MD Work Phone: [facility] 01-15-2023 07:50-0500 Body mass index (BMI) [Ratio] 34.37 kg/m2 Evy Verma MD Work Phone: [phone])[phone] [address] 01-15-2023 07:50-0500 Body weight 89.4 kg Evy Verma MD Work Phone: [facility] 01-09-2023 08:39-0400 Body height 161.3 cm Esau Hernandez PAC Work Phone: [facility] 01-09-2023 08:39-0400 Body mass index (BMI) [Ratio] 33.65 kg/m2 Esau Hernandez PAC Work Phone: [facility] 01-09-2023 08:39-0400 Body temperature 98.49 [degF] Esau Hernandez PAC Work Phone: [facility] 01-09-2023 08:39-0400 Body weight 87.54 kg Esau Hernandez PAC Work Phone: [facility] 01-09-2023 08:39-0400 Diastolic blood pressure 80 mm[Hg] Esau Hernandez PAC Work Phone: [facility] 01-09-2023 08:39-0400 Heart rate 81 /min Esau Hernandez PAC Work Phone: [facility] 01-09-2023 08:39-0400 Respiratory rate 18 /min Esau Hernandez PAC Work Phone: [facility] 01-09-2023 08:39-0400 SaO2% (BldA) [Mass fraction] 98 % Esau Hernandez PAC Work Phone: [facility] 01-09-2023 08:39-0400 Systolic blood pressure 134 mm[Hg] Esau Hernandez PAC Work Phone: [facility] 12-10-2022 10:53-0400 Body height 160 cm Evy Verma MD Work Phone: [facility] 12-10-2022 10:53-0400 Body mass index (BMI) [Ratio] 34.19 kg/m2 Evy Verma MD Work Phone: [facility] 12-10-2022 10:53-0400 Body weight 87.54 kg Evy Verma MD Work Phone: [facility] 12-10-2022 10:53-0400 Diastolic blood pressure 63 mm[Hg] Evy Verma MD Work Phone: [facility] 12-10-2022 10:53-0400 Heart rate 65 /min Evy Verma MD Work Phone: [facility] 12-10-2022 10:53-0400 Systolic blood pressure 125 mm[Hg] Evy Verma MD Work Phone: [facility] 11-08-2022 16:21-0400 Body height 160 cm Crystal Raoul ELEVATOR ERECTOR HELPER-HOUSESMITH Work Phone: [facility] Comment on above: verbal 11-08-2022 16:21-0400 Body mass index (BMI) [Ratio] 34.26 kg/m2 Crystal Raoul ELEVATOR ERECTOR HELPER-HOUSESMITH Work Phone: [facility] 11-08-2022 16:21-0400 Body temperature 99.1 [degF] Crystal Raoul ELEVATOR ERECTOR HELPER-HOUSESMITH Work Phone: [facility] 11-08-2022 16:21-0400 Body weight 87.73 kg Crystal Raoul ELEVATOR ERECTOR HELPER-HOUSESMITH Work Phone: [facility] 11-08-2022 16:21-0400 Diastolic blood pressure 71 mm[Hg] Crystal Raoul ELEVATOR ERECTOR HELPER-HOUSESMITH Work Phone: [facility] 11-08-2022 16:21-0400 Heart rate 97 /min Crystal Raoul ELEVATOR ERECTOR HELPER-HOUSESMITH Work Phone: [facility] 11-08-2022 16:21-0400 Systolic blood pressure 116 mm[Hg] Crystal Raoul ELEVATOR ERECTOR HELPER-HOUSESMITH Work Phone: [facility] 07-04-2021 09:38-0400 Body height 161.3 cm Crystal Raoul ELEVATOR ERECTOR HELPER-HOUSESMITH Work Phone: [facility] Comment on above: verbal 07-04-2021 09:38-0400 Body mass index (BMI) [Ratio] 36.23 kg/m2 Crystal Raoul ELEVATOR ERECTOR HELPER-HOUSESMITH Work Phone: [facility] 07-04-2021 09:38-0400 Body temperature 98.71 [degF] Crystal Raoul ELEVATOR ERECTOR HELPER-HOUSESMITH Work Phone: [facility] 07-04-2021 09:38-0400 Body weight 94.26 kg Riana Chinchilla ELEVATOR ERECTOR HELPER-HOUSESMITH Work Phone: [facility] 07-04-2021 09:38-0400 Diastolic blood pressure 70 mm[Hg] Riana Chinchilla ELEVATOR ERECTOR HELPER-HOUSESMITH Work Phone: [facility] 07-04-2021 09:38-0400 Heart rate 73 /min Riana Chinchilla ELEVATOR ERECTOR HELPER-HOUSESMITH Work Phone: [facility] 07-04-2021 09:38-0400 Systolic blood pressure 119 mm[Hg] Riana Chinchilla ELEVATOR ERECTOR HELPER-HOUSESMITH Work Phone: [facility] Encounters Encounter Date Encounter Type Care Provider Facility Start: 10-20-2023 End: 10-20-2023 ambulatory DONOVAN BURKS Not Available Start: 10-15-2023 End: 10-15-2023 ambulatory MADONNA PARSONS Not Available Start: 09-24-2023 End: 09-24-2023 ambulatory [facility] Work Phone: Start: 09-24-2023 End: 09-24-2023 Patient encounter procedure [facility] Work Phone: Start: 09-11-2023 Non-patient / Non-visit [facility] Work Phone: Start: 08-21-2023 End: 08-21-2023 Office outpatient visit 25 minutes Cori Hernández DO Work Phone: [facility] 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); Anxiety disorder, unspecified type Start: 08-21-2023 ambulatory [facility] Facility: [facility] Start: 08-08-2023 Non-patient / Non-visit [facility] Work Phone: Start: 07-09-2023 Non-patient / Non-visit [facility] Work Phone: Start: 07-07-2023 End: 07-07-2023 ambulatory [facility] Work Phone: Start: 07-07-2023 End: 07-07-2023 Patient encounter procedure [facility] Work Phone: Start: 06-27-2023 Non-patient / Non-visit [facility] Work Phone: Start: 06-08-2023 Non-patient / Non-visit [facility] Work Phone: Start: 05-28-2023 End: 05-28-2023 Office outpatient visit 25 minutes Riana Chinchilla ELEVATOR ERECTOR HELPER-HOUSESMITH Work Phone: [facility] [place] 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); Anxiety disorder, unspecified type Start: 05-28-2023 ambulatory [facility] Facility: [facility] Start: 05-09-2023 Non-patient / Non-visit [facility] Work Phone: Start: 04-22-2023 End: 04-22-2023 ambulatory DONOVAN KIMMIE Not Available Start: 04-22-2023 End: 04-22-2023 Office outpatient visit 15 minutes Donovan Kimmie DO Work Phone: [facility] Comment on above: Encounter for fertil ity planning Start: 04-22-2023 End: 04-22-2023 ambulatory DONOVAN KIMMIE Not Available Start: 02-14-2023 End: 02-14-2023 Office outpatient visit 25 minutes Riana Chinchilla ELEVATOR ERECTOR HELPER-HOUSESMITH Work Phone: [facility] [place] 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); 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 Facility: [facility] Start: 01-15-2023 End: 01-15-2023 ambulatory EVY VERMA Facility:[facility] Start: 01-15-2023 End: 01-15-2023 Subsequent hospital visit by physician Evy Verma MD Work Phone: [facility] 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 Start: 01-09-2023 ambulatory EVY VERMA Facility:[facility] Start: 01-09-2023 End: 01-09-2023 Office consultation new/estab patient 60 min Esau Hernandez PAC Work Phone: Pre-Procedure Evaluation and Assessment [facility] Comment on above: Preop exam for inter nal medicine (Primary Dx); Jeavons syndrome; 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 Start: 01-09-2023 End: 01-09-2023 Patient encounter status Esau Hernandez PAC Work Phone: [facility] Start: 01-09-2023 End: 01-09-2023 Subsequent hospital visit by physician Evy Verma MD Work Phone: Imaging [facility] Comment on above: Arrived Start: 01-09-2023 ambulatory TIM BALL Facility: [facility] Start: 01-09-2023 Encounter for other preprocedural examination ESAU HERNANDEZ Facility:[facility] Start: 01-09-2023 ambulatory TIM BALL Facility: [facility] Start: 12-10-2022 End: 12-10-2022 Office outpatient new 45 minutes Evy Verma MD Work Phone: [facility] 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) Start: 12-10-2022 ambulatory RIANA CHINCHILLA Facilit y:[facility] Start: 11-27-2022 ambulatory TIM BALL Facility: [facility] Start: 11-19-2022 ambulatory TIM BALL Facility: [facility] Start: 11-14-2022 ambulatory TIM BALL Facility: [facility] Start: 11-08-2022 End: 11-08-2022 Office outpatient visit 40 minutes Riana Chinchilla ELEVATOR ERECTOR HELPER-HOUSESMITH Work Phone: Neurology [facility] 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) Start: 11-08-2022 ambulatory RIANA CHINCHILLA Facilit y:[facility] Start: 09-19-2022 ambulatory TIM BALL Facility: [facility] Start: 07-07-2023 ambulatory SELF SELF Facility:[facility] Start: 05-23-2022 End: 05-24-[address] DONOVAN BURKS . Facility:[facility] Start: 04-30-2022 End: 05-01-[address] DOCTOR ASHTON Facility:[facility] Start: 04-16-2022 End: 04-17-[address] DONOVAN BURKS . Facility:[facility] Start: 04-15-2022 End: 04-16-[address] DONOVAN BURKS . Facility:[facility] Start: 08-27-2021 End: 08-27-[address] DONOVAN BURKS . Facility:[facility] Start: 07-04-2021 End: 07-04-2021 Office outpatient visit 25 minutes Riana MORELOS Work Phone: Neurology [facility] Comment on above: Generalized nonconvu lsive epilepsy (Primary Dx) Start: 06-24-2018 Encounter for gynecological examination (general) (routine) without abnormal findings NA NONE PER PATIENT [facility] Start: 06-24-2018 End: 06-24-2018 Patient encounter procedure GERARDO WARD Facility:[facility] Start: 05-25-2018 End: 05-25-2018 Patient encounter procedure . NONE PER PATIENT Facility:[facility] Start: 05-13-2018 End: 05-13-2018 Patient encounter procedure . NONE PER PATIENT Facility:[facility] Start: 03-23-2018 End: 03-24-2018 Patient encounter procedure [facility] Start: 03-20-2018 End: 03-21-2018 Patient encounter procedure [facility] Procedures Date Procedure Procedure Detail Performing Clinician Start: 01-15-2023 CARDIAC RHYTHM Other Ot her Start: 01-15-2023 Gonadotropin chorion ic qualitative Evy Verma MD Work Phone: Start: 01-09-2023 CBC AND ELECTRONIC DIFF Esau Hernandez PAC Work Phone: Start: 01-09-2023 Complete blood count with white cell differential, automated Esau Hernandez PAC Work Phone: Start: 01-09-2023 Prothrombin time Esau D Hernandez PAC Work Phone: Start: 01-09-2023 Radex spine cervical 2 or 3 views Evy Verma MD Work Phone: Start: 01-09-2023 Iadna s aureus ampli fied probe tq Esau Lion Hrenandez PAC Work Phone: Start: 01-09-2023 Urine test visual color cmprsn meths Esau Lion Hernandez PAC Work Phone: Start: 02-18-2019 Blood count hematocrit Comment on above: Performed By: #### C D #### Performed at [facility], [address] [place] [address] Start: 03-23-2018 PLATELET FUNCTION TEST JAMIL SMITH Plan of Treatment Date Care Activity Detail Author Start: 01-22-2024 End: 01-22-2024 Patient encounter procedure 01/22/2024 9:15 AM EST Office Visit Neurology [facility] [address] [facility] [address] [place] [phone] Jeannie Meek Cori, DO [address] [place] [address] Neurology [facility] Start: 11-28-2023 End: 11-28-2023 Patient encounter procedure 11/28/2023 10:20 AM EDT Office Visit [facility] [address] [place] [address] Riana Chinchilla, ELEVATOR ERECTOR HELPER-HOUSESMITH [address] [place] [phone] [facility] [place] Start: 11-09-2023 Influenza vaccination [facility] Start: 08-21-2023 End: 08-21-2023 Patient encounter procedure 08/21/2023 2:45 PM EDT Office Visit Neurology [facility] [address] [facility] [address] [place] [phone] Maturu V, Cori, DO [address] [place] [address] Neurology [facility] Start: 05-28-2023 End: 05-28-2023 Patient encounter procedure 05/28/2023 2:00 PM EDT Office Visit Neurology [facility] [address] [place] [phone] Riana Chinchilla, ELEVATOR ERECTOR HELPER-HOUSESMITH [address] [place] [phone] Neurology [facility] Start: 02-14-2023 End: 02-14-2023 Patient encounter procedure Neurology [facility] Start: 01-15-2023 End: 01-15-2023 Admission to same day surgery center 01/15/2023 9:40 AM EST - 01/15/2023 11:50 AM EST Surgery [facility] [address] [place] [phone] Evy Verma MD [address] [place] [phone] INSERTION REPLACEMENT NEUROSTIMULATOR GENERATOR CRANIAL/INTRACRANIAL [facility] Comment on above: INSERTION REPLACEMENT NEUROSTIMULATOR GE NERATOR CRANIAL/INTRACRANIAL Start: 01-15-2023 End: 01-15-2023 Insj/rplcmt cranial neurostim pulse generator INSERTION REPLACEMENT NEUROSTIMULATOR GENERATOR CRANIAL/INTRACRANIAL Jeavons syndrome 01/15/2023 9:40 AM EST [facility] Start: 01-15-2023 Subsequent hospital visit by physician 01/15/2023 9:40 AM EST Hospital Encounter [facility] [address] [place] [address] Evy Verma MD [address] [place] [phone] Jeavons syndrome [facility] 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 Start: 12-10-2022 End: 12-11-2023 Radiographic imaging procedure XR STIMULATOR/INTRATHECAL PUMP Imaging Routine Jeavons syndrome Expected: 12/10/2022, Expires: 12/11/2023 [facility] Comment on above: Expected: 12/10/2022, Expires: Start: 12-10-2022 End: 12-10-2022 Patient encounter procedure 12/10/2022 11:30 AM EDT Office Visit [facility] Outpatient [address] [place] [id number] Evy Verma MD [address] [place] [phone] [facility] Start: 11-08-2022 COVID-19 VACCINE ( season) COVID-19 VACCINE ( season) [facility] Start: 11-08-2022 Influenza vaccination INFLUENZA VACCINE (#1) [facility] Start: 01-04-2022 End: 01-04-2022 Patient encounter procedure 01/04/2022 Office Visit Neurology Cori Dia, DO [address] [place] [address] Neurology [facility] Start: 11-08-2021 Influenza vaccination INFLUENZA VACCINE (Season Ended) [facility] Start: 10-10-2021 End: 10-10-2021 Telemedicine consultation with patient 10/10/2021 Telemedicine Neurology Riana Chinchilla, ELEVATOR ERECTOR HELPER-HOUSESMITH [address] [place] [phone] Neurology [facility] Start: 08-15-2021 End: 08-15-2021 Telemedicine consultation with patient 08/15/2021 Telemedicine Neurology Riana Chinchilla, ELEVATOR ERECTOR HELPER-HOUSESMITH [address] [place] [phone] Neurology [facility] Start: 2013 Screening for malignant neoplasm of cervix CERVICAL CANCER SCREENING DISCUSSION [facility] Start: 07-15-2011 Hepatitis B vaccination HEP B VACCINE (1 of 3 - 19+ 3-dose series) [facility] Start: 07-15-2011 Third diphtheria, tetanus and acellular pertussis (DTaP) vaccination TDAP (ADULT) [facility] Start: 2010 Tetanus vaccination TETANUS [facility] Start: 07-15-2007 HIV screening HIV SCREENING DISCUSSION [facility] Start: 1997 COVID-19 VACCINE (1) COVID-19 VACCINE (1) [facility] Start: 01-14-1993 COVID-19 VACCINE (#1) COVID-19 VACCINE (#1) [facility] Start: 1992 Hepatitis B vaccination HEP B VACCINE (1 of 3 - 3-dose series) [facility] Start: 1992 Hepatitis C antibody, confirmatory test HEPATITIS C VIRUS SCREENING [facility] Start: 1992 Hepatitis C screening HEPATITIS C VIRUS SCREENING [facility] Start: 1992 Tetanus vaccination TETANUS [facility] Ecg routine ecg w/le ast 12 lds w/i&r WV ELECTROCARDIOGRAM, COMPLETE [place] - OFFICE PERFORMED Routine 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 Ordered: 01/09/2023 [facility] Comment on above: Ordered: 01/09/2023 Elec horace implt npgt phys/qhp w/o programming [place] ELEC HORACE IMPLT NPGT PHYS/QHP W/O PROGRAMMING [place] Charge Routine Jeavons syndrome Ordered: 09/09/2023 [facility] Comment on above: Ordered: 09/09/2023 Elec horace implt smpl cn npgt prgrmg W[place] ELEC HORACE IMPLT SMPL CN NPGT PRGRMG W[place] Charge Routine Jeavons syndrome Ordered: 11/14/2022 [facility] Comment on above: Ordered: 11/14/2022 Elec horace implt smpl cn npgt prgrmg [place] ELEC HORACE IMPLT SMPL CN NPGT PRGRMG [place] Charge Routine 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 Ordered: 03/12/2023 [facility] Comment on above: Ordered: 03/12/2023 Elec horace implt smpl cn npgt prgrmg [place] ELEC HORACE IMPLT SMPL CN NPGT PRGRMG [place] Charge Routine Jeavons syndrome Ordered: 06/21/2023 [facility] Comment on above: Ordered: 06/21/2023 Insj/rplcmt cranial neurostim pulse generator INSERTION REPLACEMENT NEUROSTIMULATOR GENERATOR CRANIAL/INTRACRANIAL Jeavons syndrome [facility] Noninvasive ear/puls e oximetry single deter WV NONINVASV OXYGEN SATUR; SINGLE [place] - OFFICE PERFORMED Routine 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 Ordered: 01/09/2023 [facility] Comment on above: Ordered: 01/09/2023 Immunizations Immunization Date Immunization Notes [facility] Provider [facility] 01-04-2014 influenza, seasonal, injectable, preservative free Evy Verma MD Work Phone: [facility] 01-04-2014 influenza virus vaccine, unspecified formulation Riana MORELOS Work Phone: [facility] Payers Date Payer Category Payer Unknown [id number] 2021 Medicaid [employer] [place] [id number] 2021-Present [address] [place] [address] [id number] 2016 Unknown [id number] 2016 Self-pay 2014 Unknown [id number] 1992 Unknown [id number] 2.16.840.1.888844.3.579.2.173 1992 Unknown [id number] 2.16.840.1.706425.3.579.2.173 1992 Unknown [id number] 2.16.840.1.859567.3.579.2.754 1992 Unknown [id number] 2.16.840.1.121002.3.579.2.754 1992 Unknown [id number] 2.16.840.1.414555.3.579.2.754 1992 Unknown [id number] 2.16.840.1.395484.3.579.2.754 1992 Unknown [id number] 2.16.840.1.670060.3.579.2.593 1992 Unknown [id number] 2.840.1.636802.3.579.2.593 1992 Unknown [id number] 2.840.1.902024.3.579.2.593 1992 Unknown [id number] 2.840.1.667818.3.579.2.593 1992 Unknown [id number] 2.840.1.324781.3.579.2.593 1992 Unknown [id number] 2.16840.1.511207.3.579.2.1259 1992 Unknown [id number] 2.840.1.030614.3.579.2.594 1992 Unknown [id number] 2.16840.1.965491.3.579.2.594 1992 Unknown [id number] 2.16840.1.985504.3.579.2.594 1992 Unknown [id number] 2.16840.1.551723.3.579.2.594 1992 Unknown [id number] 2.16840.1.967169.3.579.2.594 1992 Unknown [id number] 2.16840.1.207515.3.579.2.594 1992 Unknown [id number] 2.16.840.1.151750.3.579.2.594 1992 Unknown [id number] 2.16.840.1.355592.3.579.2.594 1992 Unknown [id number] 2.16.840.1.998853.3.579.2.594 1992 Unknown [id number] 2.16.840.1.728118.3.579.2.594 1992 Unknown [id number] 2.16.840.1.157483.3.579.2.594 1992 Unknown [id number] 2.16.840.1.871673.3.579.2.594 1992 Unknown [id number] 2.16.840.1.890330.3.579.2.594 1992 Unknown [id number] 2.16.840.1.606117.3.579.2.594 1992 Unknown [id number] 2.16.840.1.404503.3.579.2.594 1992 Unknown [id number] 2.16840.1.857539.3.579.2.1259 1992 Unknown [id number] 2.16840.1.174150.3.579.2.1259 1959 Unknown [id number] 1959 Unknown [id number] Social History Date Type Detail Facility Start: 10-28-2019 End: 07-07-2023 Tobacco smoking status NHIS Never smoked tobacco [facility] Start: 10-28-2019 End: 02-14-2023 Tobacco use and exposure Smokeless tobacco non-user [facility] Start: 10-28-2019 Alcohol intake Current drinker of alcohol (finding) [facility] Start: 10-28-2019 History SDOH Alcohol Frequency 2 [facility] Start: 10-28-2019 History SDOH Alcohol Comment rare wine [facility] Start: 10-28-2019 Education 17 [facility] Start: 1992 Sex Assigned At Not on file [facility] Start: 11-08-2022 End: 09-09-2023 Alcohol intake Ex-drinker (finding) [facility] Start: 10-28-2019 End: 01-15-2023 History of Social function [facility] Start: 10-28-2019 End: 01-15-2023 Alcohol Use Disorder Identification Test - Consumption [AUDIT-C] [facility] How often to you hav e a drink containing alcohol? Monthly or less [facility] Average Number of Drinks Not on file [facility] Start: 10-29-2019 Gender identity Identifies as female gender (finding) [facility] Start: 10-29-2019 Sexual orientation Heterosexual (finding) [facility] Start: 02-14-2023 Tobacco Comment Never [facility] Start: 02-14-2023 Alcohol Comment At most one or two drinks a month. [facility] Start: 04-22-2023 Alcohol intake Not Asked [facility] Start: 08-07-2022 Alcohol Comment Occasional alcohol use [facility] Start: 1990 Sex Assigned At Female [facility] Medical Equipment Procedure Code Equipment Code Equipment Origin al Text Equipment Identifier Dates Sentiva [id number] Start: 01-15-2023 Clinical Notes 07-04-2021 to 08-21-2023 Cori Hernández V, - 08/21/2023 2:45 PM EDTPatient InstructionsCrystJETHRO Lee - 05/28/2023 2:00 PM EDTCvalencia Burks DO [...] 24 hours. 2 Each 0 Prenat MV-Min w/Eq-Sdvqxj-CRD ( COMPLETE PO) Take 1 tablet by [...] AW Model ID Sentiva N1000 Serial # [id number] Implanted 03/27/2018 Communication Output Current Status Current [...] of questions or concerns. Cori Hernández DO Bindery Leadperson Department of Neurology, Epilepsy Division [facility] documented in this encounter [facility] 08-21-2023 Instructions Cori Meek DO - [...] you can call the Neurology clinic at [phone]. If you have access through [facility], you can contact me through that system as well. documented in this encounter [facility] 05-28-2023 History of Present illness Narrative Images from the original note were not included. Rowena Drake was seen in the [facility] at [facility] on 05/28/2023. She is here today [...] affected seasonally. Pertinent Seizure History Per Dr Henrández 04/2022: History of Present Illness: As you [...] 24 hours. 2 Each 0 Prenat MV-Min w/Jl-Oorwbl-EOC ( COMPLETE PO) Take 1 tablet by [...] your epilepsy that we offer at the [facility]? Yes If you have tried 2 or 3 anti-seizure medications and your seizures are still not controlled, are you interested in learning about surgical options for your epilepsy that we can offer at the [facility]? No Neurological Disorders Depression Inventory [...] 01/15/2023 Model Number 1000 1000 Serial Number [id number] Output Current (mA) 2.5 mA 2.25 mA [...] and continue maintenance dose of clobazam - [place] ELEC HORACE IMPLT SMPL CN NPGT PRGRMG [...] 45 tablet; Refill: 2 Encouraged use of OO[employer]ave to send messages to provider as needed for questions and concerns or can call our clinic @ [phone]. She will return in [address] Hernández or sooner if clinically indicated. Signed, Riana Chinchilla MSN, ELEVATOR ERECTOR HELPER-HOUSESMITH [facility] Department of Neurology - Epilepsy Division [address] [place] [address] - 7th floor [place] [address] Pager: [phone] I spent a total of 35 minutes on the date of the service which included preparing to see the patient, zajq-wd-rkrs patient care, completing clinical documentation, performing a medically appropriate examination and counseling and educating the patient/family/caregiver. Note to patient: The 21st Century Cures Act makes medical notes like these available to patients in the interest of transparency. However, be advised this is a medical document. It is intended as khwo-kt-chia communication. It is written in medical language and may contain abbreviations or verbiage that are unfamiliar. It may appear blunt or direct. Medical documents are intended to carry relevant information, facts as evident, and the clinical opinion of the practitioner. documented in this encounter [facility] 02-13-2024 History of Present illness Narrative Reason for [...] nursing note reviewed. Exam conducted with a senior cost accountant present. Vitals: Estimated body mass index is [...] Donovan Burks DO documented in this encounter [facility] 02-14-2023 History of Present illness Narrative Images from the original note were not included. Rowena Byers was seen in the [facility] Ep[facility]psy [facility] at [facility] on 02/14/2023. She is here today for a follow-up in clinic accompanied by her , Pedro. She was last seen on 04/19/[address] Cori Hernández DO and with hi 11/08/2022. History of Present Illness INTERVAL HISTORY: [...] 24 hours. 2 Each 0 Prenat MV-Min w/Nv-Bdtill-PIK ( COMPLETE PO) Take 1 tablet by [...] ID ABW Model ID SenTiva Serial # [id number] Implanted 01/15/2023 Communication OK Output Current Status [...] our clinic JT should these s/s occur. Johanning: VNS: VNS Simple Reprogramming (1-3 changes) CPT code 29302 Assessment and Plan Assessment: Rowena is a [...] longer than 5 minutes. Encouraged use of OOgave to send messages to provider as needed for questions and concerns or can call our clinic @ [phone]. She will return in 3 months with me and [address] Hernández or sooner if clinically indicated. Signed, Riana Chinchilla MSN, ELEVATOR ERECTOR HELPER-HOUSESMITH [facility] Department of Neurology - Epilepsy Division [address] [place] [address] - 7th floor [place] [address] Pager: [phone] I spent a total of 34 minutes on the date of the service which included preparing to see the patient, kytw-gt-wykz patient care, completing clinical documentation, performing a medically appropriate examination and counseling and educating the patient/family/caregiver. Note to patient: The Cures Act makes medical notes like these available to patients in the interest of transparency. However, be advised this is a medical document. It is intended as ydix-zy-abwt communication. It is written in medical language and may contain abbreviations or verbiage that are unfamiliar. It may appear blunt or direct. Medical documents are intended to carry relevant information, facts as evident, and the clinical opinion of the practitioner. documented in this encounter [facility] 02-14-2023 Instructions JETHRO Juan - [...] after regular office hours, a neurologist is director of dementia operations for urgent issues. Call the neurology office number ([phone]) to reach the neurologist director of dementia operations if you are continuing to experience many more seizures than usual despite use of your rescue medications. Please try to remember that the neurologist director of dementia operations may not have access to your complete medical record and may not be as familiar with your history. If you have access through [facility], you can contact us through that system as well. If you have documents that need completed or sent to our clinic, please have them faxed to [phone]. It is always best to call during [...] the refill is ready for you to pickling operator. Seizure First Aid Training Can Be Found Here (it's free!): [email or web address] nd documented in this encounter [facility] 01-15-2023 Miscellaneous Notes [facility] OPERATIVE REPORT PATIENT NAME: Rowena Byers PROCEDURE [...] The IPG had been interrogated by the entry level sales representative from the vendor. The upper [...] the new IPG and secured with the grief counselor's screwdriver. At this point, a sql programmer was used to interrogate the new [...] VSS, anesthesia sign out completed. 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 SURGEON Surgeon(s) and Role: * Evy Verma MD - Primary ANESTHESIOLOGIST Anesthesiologist: Cydney Zavala MD MANAGER OPERATIONS RESEARCH: Geraldo Marion APRN-MANAGER OPERATIONS RESEARCH Student Nurse Sap Plant Maintenance Consultant: Chiquita Polanco SURGICAL STAFF [employer] Laboratory Director: Miki Gary RN; Linda Gilmore RN [employer] Laboratory Director: Janet Carreon RN Scrub Person: Marielle Ibrahim Resident Assisting: Colt Meadows MD COMPLICATIONS None ESTIMATED BLOOD LOSS Minimal SPECIMENS No specimen sent * No specimens in log * Colt Meadows MD January 15, 2023 11:03 AM documented in this encounter [facility] 01-15-2023 Nurse Note Pt and family were given AVS and verbalize understanding of instructions. Pt discharged via wheelchair. [facility] 01-15-2023 Surgery Postoperative evaluation and management note [facility] OPERATIVE REPORT PATIENT NAME: Rowena Byers PROCEDURE [...] The IPG had been interrogated by the entry level sales representative from the vendor. The upper [...] the new IPG and secured with the grief counselor's screwdriver. At this point, a sql programmer was used to interrogate the new [...] entire procedure and performed the critical portions. [facility] 01-15-2023 Nurse Note Report called to RN SPR, VSS, anesthesia sign out completed. 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 SURGEON Surgeon(s) and Role: * Evy Verma MD - Primary ANESTHESIOLOGIST Anesthesiologist: Cydney Zavala MD MANAGER OPERATIONS RESEARCH: Geraldo Marion APRN-MANAGER OPERATIONS RESEARCH Student Nurse [employer] Plant Maintenance Consultant: Chiquita Polanco SURGICAL STAFF [employer] Laboratory Director: Miki Gary RN; Linda Gilmore RN [employer] Laboratory Director: Janet Carreon RN Scrub Person: Marielle Ibrahim Resident Assisting: Colt Meadows MD COMPLICATIONS None ESTIMATED BLOOD LOSS Minimal SPECIMENS No specimen sent * No specimens in log * Colt Meadows MD January 15, 2023 11:03 AM [facility] 01-15-2023 Nurse Surgical operation note Report given to ELECTRIC SPOT WELDER. Patient transported to PACU with anesthesia on a cart and oxygen. [facility] 01-15-2023 Nurse Note Report given to ELECTRIC SPOT WELDER. Patient transported to PACU with anesthesia on a cart and oxygen. documented in this encounter [facility] 01-15-2023 Hospital Discharge instructions Colt Meadows MD - 01/15/2023 9:30 AM EST Discharge Instructions for DBS Surgery & Battery Placement Surgery Here are some general guidelines to assist you in your recovery at home. Please do not hesitate to call us with any questions or concerns you may have. We can be reached at [phone]. Your appointmentS will be in the Neuromodulation clinic in [address] Incision Care: If you have a [...] 101 degrees F documented in this encounter [facility] 01-15-2023 History and physical note [...] by Evy Verma MD, 01/15/2023, 9:08 AM. [facility] Work Phone: 01-15-2023 History and [...] 01/15/2023, 9:08 AM. documented in this encounter [facility] 01-09-2023 History and physical note Images from the original note were not included. History of Present Illness Ms. Byers is a 32 y.o. female is being evaluated in [facility] due to her medical condition of [...] 10 mg in 24 hours. Prenat MV-Min w/Ph-Wlcgik-NBQ ( COMPLETE PO) Take 1 tablet by [...] % ointment HCG QUALITATIVE, URINE Pulse Ox [place] ECG, CLINIC PERFORMED Lab A/P - Labs [...] patient has been medically OPTIMIZED FOR SURGERY. 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 Prenat MV-Min w/Mr-Cljogz-SCM ( COMPLETE PO) Take 1 tablet by [...] % ointment HCG QUALITATIVE, URINE Pulse Ox [place] ECG, CLINIC PERFORMED Lab A/P - Labs [...] patient has been medically OPTIMIZED FOR SURGERY. 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 Will check hCG today and on day of surgery. Patient understands that surgery may be cancelled if she is . Anesthesia Assessment:No contraindications to planned surgery. Pending review of the patient's labs.ECG reviewed. Whitney Ward MD [facility] documented in this encounter [facility] 01-09-2023 Instructions Robyn Dempsey LPN - [...] take Herbal Medication (including multi-vitamin, fish oil ([place]-3), garlic, Glucosamine - Chondroitin ,gingko, ginseng, Vitamin [...] site one week prior to surgery. - [place] your teeth and rinse your mouth the morning of surgery. - Do NOT bring your dentures or partials with you into surgery. They may be lost. Give them to someone to bring to you after surgery. If you are unable to complete your scheduled testing or appointments made by OPAC please contact OPAC at [phone]. Failure to do so could delay or [...] surgery, please notify our team immediately at [phone]. - If you have Sleep apnea and have a CPAP or BIPAP, then bring your CPAP mask and machine with you to the hospital. Please contact Medical Information Management Department for all records requests. [phone] Puma/mateo documented in this encounter [facility] 12-10-2022 History of Present illness [...] that were dedicated to clinical evaluation, including ipsp-iw-lhrg time; counseling and education; chart completion; reviewing [...] aspirin, excedrin, plavix), multivitamins/minerals/herbal supplements (such as [place]-3, garlic, Glucosamine - Chondroitin, gingko, ginseng, Vitamin E, fish oil, etc), non-steroidal anti-inflammatory medications (NSAIDs) (such as Ibuprofen/Motrin/Advil, Aleve, Celebrex) for 10 days prior to surgery, as these are blood thinners. She was advised that Tylenol is the preferred option for pain. She stated understanding. documented in this encounter [facility] 11-08-2022 History of Present illness Narrative Images from the original note were not included. Rowena Byers was seen in the [facility] on 11/08/2022. She is here today [...] ID AW Model ID SenTiva Serial # [id number] Implanted 03/27/2018 Communication OK Output Current Status [...] VNS Simple Reprogramming (1-3 changes) CPT code 67440 Assessment and Plan Assessment: Rowena is a [...] would like to wait Encouraged use of OOgave to send messages to provider as needed for questions and concerns or can call our clinic @ [phone]. She will return in 2 months or sooner if clinically indicated. Signed, Riana ESCALANTE, ELEVATOR ERECTOR HELPER-HOUSESMITH [facility] Department of Neurology - Epilepsy Division [address] [place] [address] - 7th floor [place] [address] Pager: [phone] I spent a total of 46 minutes on the date of the service which included preparing to see the patient, mbqt-ou-fzxk patient care, completing clinical documentation, performing a medically appropriate examination and counseling and educating the patient/family/caregiver. Note to patient: The Century Cures Act makes medical notes like these available to patients in the interest of transparency. However, be advised this is a medical document. It is intended as othc-oj-hpkr communication. It is written in medical language and may contain abbreviations or verbiage that are unfamiliar. It may appear blunt or direct. Medical documents are intended to carry relevant information, facts as evident, and the clinical opinion of the practitioner. documented in this encounter [facility] 11-08-2022 Instructions JETHRO Juan - [...] ID AW Model ID SenTiva Serial # [id number] Implanted 03/27/2018 Communication OK Output Current Status OK Current Delivered 1.75 Lead Impedance OK Impedance Value 2903 IFI NO Average # of Inhibited Auto stimulations Daily Avg. Stim % Per Day %Therapy Normal 843.56 AutoStim 26.89 Magnet 0.04 Total 870.50 documented in this encounter [facility] 07-04-2021 Instructions JETHRO Juan - [...] weeks with Riana documented in this encounter [facility] 07-04-2021 History of Present illness Narrative Images from the original note were not included. Rowena Byers was seen in the [facility] at [facility] on 07/04/2021. 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 Encouraged use of OOgave to send messages to provider as needed for questions and concerns or can call our clinic @ [phone]. She will return in 6 weeks and 3 months with me and [address] Hernández or sooner if clinically indicated. Signed, Riana Chinchilla MSN, ELEVATOR ERECTOR HELPER-HOUSESMITH [facility] Department of Neurology - Epilepsy Division [address] [place] [address] - 7th floor [place] [address] Pager: [phone] Time to complete visit: I spent approximately 38 minutes reviewing the chart prior to the appointment, in face to face counseling with the patient, and with documentation after the visit. 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 [facility] Diagnosis Jeavons syndrome- Primary [facility] Diagnosis Jeavons syndrome- Primary [facility] Jeavons syndrome Jeavons syndrome [facility] Diagnosis Preop exam for internal medicine- Primary Other specified pre-operative examination 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 Other postprocedural status Jeavons syndrome [facility] 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 Other postprocedural status [facility] Diagnosis Encounter for fertility planning documented in this encounter [facility]* Diagnosis Jeavons syndrome- Primary Anxiety disorder, unspecified type [facility] Diagnosis Onset Date Resolution Status Maxillary sinusitis acute [facility] Work Phone: Evaluation note* Diagnosis Jeavons syndrome- Primary Anxiety disorder, unspecified type [facility] Diagnosis Onset Date Resolution Status Maxillary sinusitis acute Maxillary sinusitis [facility] Work Phone: Reason for referral (narrative)* Consultation (Routine) - New Request Specialty Diagnoses / Procedures Referred By Rainer ramos Referred To Contact Neurologic Surgery Diagnoses Jeavons syndrome Evy Verma MD [address] [place] [address] Referral ID Status Reason Start Date Expiration Date V isits Requested Visits Authorized [id number] New Request 12/10/2022 01/04/2024 1 1 [facility] Summary Purpose Family History No Family History Records Found Relationship Condition Age at Onset Recorded Date/T jorge grandparent Malignant neoplasm Unknown Advance Directives No Advanced Directives Records Found Advance Directive Response Recorded Date/ Time Advance Directives No July 06 12:12pm Reason for Referral Specialty Diagnoses / Procedures Referred By Rainer ramos Referred To Contact Diagnoses Generalized nonconvulsive epilepsy Riana Chinchilla, ELEVATOR ERECTOR HELPER-HOUSESMITH [address] [place] [address] Referral ID Status Reason Start Date Expiration Date V isits Requested Visits Authorized [id number] Pending Review 1 1 Specialty Diagnoses / Procedures Referred By Contac t Referred To Contact Procedures DVT/VTE RISK ASSESSMENT Evy Verma MD [address] [place] [address] Referral ID Status Reason Start Date Expiration Date V isits Requested Visits Authorized [id number] New Request 01/15/2023 02/09/2024 1 1 Chief Complaint and Reason for Visit Chief Complaint sinus infection Reason for Visit Maxillary sinusitis Chief Complaint sinus infection sinus infection Reason for Visit Maxillary sinusitis Maxillary sinusitis Additional Source Comments INFORMATION SOURCE (unrecogn ized section and content) DATE CREATED AUTHOR 09/03/2017 [facility] DATE CREATED AUTHOR AUTHOR'S ORGANIZ ATION 03/28/2018 [facility] DATE CREATED AUTHOR AUTHOR'S ORGANIZ ATION 07/02/2018 [facility] DATE CREATED AUTHOR AUTHOR'S ORGANIZ ATION 10/02/2019 [facility] DATE CREATED AUTHOR AUTHOR'S ORGANIZ ATION 06/01/2022 [facility] DATE CREATED AUTHOR AUTHOR'S ORGANIZ ATION 04/24/2023 [facility] DATE CREATED AUTHOR AUTHOR'S ORGANIZ ATION 08/23/2023 [facility] DATE CREATED AUTHOR AUTHOR'S ORGANIZ ATION 10/21/2023 [facility] Reason for Visit (unrecogniz ed section and content) Reason Comments Follow-up Reason Comments Follow-up Reason Comments New Patient 32 y.o female here f or consult. Specialty Diagnoses / Procedures Referred By Contac t Referred To Contact Neurologic Surgery Diagnoses Jeavons syndrome S/P placement of VNS (vagus nerve stimulation) device Riana Chinchilla, ELEVATOR ERECTOR HELPER-HOUSESMITH [address] [place] [address] Referral ID Status Reason Start Date Expiration Date V isits Requested Visits Authorized [id number] New Request 09/19/2022 10/14/2023 1 1 Reason Comments Preoperative Assessment Specialty Diagnoses / Procedures Referred By Contac t Referred To Contact Neurologic Surgery Diagnoses Jeavons syndrome Evy Verma MD [address] [place] [phone] Referral ID Status Reason Start Date Expiration Date V isits Requested Visits Authorized [id number] New Request 12/10/2022 01/04/2024 1 1 Specialty Diagnoses / Procedures Referred By Contac t 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] Procedures WV IMP STIM,CRANIAL,SUBQ,1 ARRAY INSERTION REPLACEMENT NEUROSTIMULATOR GENERATOR CRANIAL/INTRACRANIAL Evy Verma MD [address] [place] [phone] [facility] [address] [place] [address] Referral ID Status Reason Start Date Expiration Date Visits Re quested Visits Authorized [id number] 1 1 Reason Comments Infertility Care Teams (unrecognized sec tion and content) Route Specialist Relationship Specialty Start Date End Date Tim Rolon DO [address] [place] [address] PCP - General Internal Medicine 09/19/22 Riana Chinchilla, ELEVATOR ERECTOR HELPER-HOUSESMITH [address] [phone] Certified Nurse Practitioner 11/08/22 Route Specialist Relationship Specialty Start Date End Date Tim Rolon DO [address] [place] [address] PCP - General Internal Medicine 09/19/22 Riana Chinchilla, ELEVATOR ERECTOR HELPER-HOUSESMITH [address] [phone] Certified Nurse Practitioner 11/08/22 Route Specialist Relationship Specialty Start Date End Date Tim RolonDO [address] [place] [address] PCP - General Internal Medicine 09/19/22 Riana Chinchilla, ELEVATOR ERECTOR HELPER-HOUSESMITH [address] [place] [phone] Certified Nurse Practitioner 11/08/22 Route Specialist Relationship Specialty Start Date End Date Tim RolonDO [address] [place] [address] PCP - General Internal Medicine 09/19/22 Riana Chinchilla, ELEVATOR ERECTOR HELPER-HOUSESMITH [address] [place] [phone] Certified Nurse Practitioner 11/08/22 Route Specialist Relationship Specialty Start Date End Date Haylie DO Tim [address] [place] [address] PCP - General Internal Medicine 09/19/22 Riana Chinchilla, ELEVATOR ERECTOR HELPER-HOUSESMITH [address] [place] [phone] Certified Nurse Practitioner 11/08/22 Route Specialist Relationship Specialty Start Date End Date HaylieTimDO [address] [place] [address] PCP - General Internal Medicine 09/19/22 Riana Chinchilla, ELEVATOR ERECTOR HELPER-HOUSESMITH [address] [place] [phone] Certified Nurse Practitioner 11/08/22 Route Specialist Relationship Specialty Start Date End Date Tim Rolon MD [address] [place] [address] PCP - General Internal Medicine 08/08/22 Route Specialist Relationship Specialty Start Date End Date Tim Rolon DO [address] [place] [address] PCP - General Internal Medicine 09/19/22 Riana Chinchilla APRN-HOUSESMITH [address] [place] [phone] Certified Nurse Practitioner 11/08/22 Team Status: Active [...] End: July 07, 2023 Kristine Oneill APRN BUILDING CONSTRUCTION FOREMAN-C Attending Provider Act duncan Start: July 07, 2023 End: July 07, 2023 Route Specialist Relationship Specialty Start Date End Date Tim Rolon DO [address] [place] [address] PCP - General Internal Medicine 09/19/22 Riana Chinchilla APRN-HOUSESMITH [address] [phone] Certified Nurse Practitioner 11/08/22 Team Status: [...] Inactive Member Role Status Dates Tim Rolon , Primary Care Provider Active Start: September 24, 2023 End: September 24, 2023 Kristine Oneill APRN BUILDING CONSTRUCTION FOREMAN-C Attending Provider Act duncan Start: September 24, [...] - Comment: mixed 1:1 w/Lido with epi 1:[id number]) ceFAZolin (ANCEF) 2 g in dextrose 100 mL premix IVPB (COMPLETED) 2 g, Intravenous, Administer over 30 Minutes, TENSION MACHINE OPERATOR TO PROCEDURE, 1 dose, Starting on Fri01/15/23 at 0758, Until Discontinued, Other, Surgical Prophylaxis, Initiate antibiotic administration 30-60 minutes prior to surgical incision and complete administration prior to surgical incision., Pre-op/Pre-Proc 0955 (Given - Provid er: Geraldo Marion, ELEVATOR ERECTOR HELPER-MANAGER OPERATIONS RESEARCH) lidocaine-epinephrine 2 %-1:[id number] injection (CANCELED) NEEDED, Starting on Fri01/15/23 at [...] Order-specific weight), Intravenous, Administer over 1 Hours, TENSION MACHINE OPERATOR TO PROCEDURE, 1 dose, Starting on [...] BE BASED ON THE PRIMARY CLINICAL RECORDS. [facility]. provides no warranty or guarantee of the accuracy or completeness of information in this document.
== END 2023-11-12 10:12 | disposition home or self-care (01) ==
LOC: LAB 10:11
PROVIDERS: PCP Internal Medicine; Visit Provider Obstetrics & Gynecology
DX: N97.0 Female infertility associated with anovulation (principal)
CPT/HCPCS: 36415; 84144

== ENCOUNTER 2023-12-15 11:37 | Outpatient (OUT) | payer OTHER, SELFPAY ==
[2023-12-16 08:12] LABS: Progesterone 19.7 ng/mL (.)
== END 2023-12-15 11:38 | disposition home or self-care (01) ==
LOC: LAB 11:37
PROVIDERS: PCP Internal Medicine; Visit Provider Obstetrics & Gynecology
DX: N97.0 Female infertility associated with anovulation (principal)
CPT/HCPCS: 36415; 84144

== ENCOUNTER 2024-01-16 13:00 | Outpatient (OUT) | payer OTHER, SELFPAY ==
--- OUTSIDE RECORDS SUMMARY | 2024-01-16 13:05 | XMS_ITS | CCD ---
Author Organization [facility] CliniSyfl Care Team Providers Care Staff Midwife Name Role Phone JAMIL SMITH Referring Unavailable [...] Unavailable KIMMIE ., DR GUERRERO Attending Unavailable BALL, DR RAMEY Primary Care Unavailable KIMMIE ., DR GUERRERO Consulting Unavailable MISC, DR ARMENTA Admitting Unavailable MISC, DR ARMENTA Attending Unavailable HAYLIE, DR RAMEY Primary Care Unavailable MISC, DR ARMENTA Consulting Unavailable KIMMIE ., DR GUERRERO Consulting Unavailable KIMMIE ., DR GUERRERO Admitting Unavailable KIMMIE ., DR GUERRERO Attending Unavailable BALL, DR RAMEY Primary Care Unavailable KIMMIE ., DR GUERRERO Consulting Unavailable ZIEBER, DR CYDNEY Conner Consulting Unavailable KIMMIE ., DR GUERRERO Admitting Unavailable KIMMIE ., DR GUERRERO Attending Unavailable HAYLIE, DR RAMEY Primary Care Unavailable KIMMIE ., DR GUERRERO Consulting Unavailable Tim Rolon DO Primary Care Provider Raoul NURSING COORDINATOR-Riana LALA Unavailable Tim Rolon MD Primary Care [...] Care Unavailable CORI HERNÁNDEZ Attending Unavailable Raoul NURSING COORDINATOR-ARCHIVES DIRECTOR, Riana Gordillo Unavailable DONOVAN BURKS Attending Unavailable MADONNA PARSONS Attending Unavailable DONOVAN BURKS Attending Unavailable Allergies Allergy Classification Reported Allergen(s) Allergy Type Date of Onset Reaction(s) Facility (11 sources) Seasonal allergy Propensity to adverse reactions to drug 7 Runny Nose, Congestion U [facility] Work Phone: (3 sources) Pollen Propensity to adverse reactions 7 Runny nose [facility] (3 sources) Other Propensity to adverse reactions 2 Runny nose [facility] Medications Current Medications Medication Drug Class(es) Dates Sig (Normalized) Sig (Original) 8 hr acetaminophen 650 mg extended release oral tablet (7 sources) Start: 01-15-2023 take 1 tablet by mouth every six hours as needed acetaminophen 650 MG Tab CR Take 1 tablet by mouth every 6 hours as needed for Mild Pain. 01/15/2023 Active Start: 01-15-2023 End: 01-15-2023 take 1 tablet by mouth every four hours as needed Acetaminophen (TYLENOL) tablet 650 mg Calcium Carb-Cholecalciferol (CALCIUM + D3 PO) (3 sources) take 600 mg by mouth once daily Calcium Carb-Cholecalciferol (CALCIUM + D3 PO) Take 600 mg by mouth daily. Active calcium carbonate 1500 mg / cholecalciferol 500 unt oral capsule (3 sources) Vitamin D Start: 2023 Calcium Carb-Cholecalciferol 600-12.5 MG-MCG capsule 07/07/2023 Active cloBAZam 20 mg oral tablet (17 sources) Benzodiazepine Start: 2022 End: 2024 take 1 tablet by mouth once daily at dinner cloBAZam 20 MG tablet Indications: Jeavons syndrome Take 1 tablet by mouth Daily (with dinner). 30 tablet 5 08/21/2023 08/21/2024 Active Start: 04-30-2021 End: 04-30-2022 take 1 [...] 2023 12:00am escitalopram 20 mg oral tablet (2 sources) Serotonin Reuptake Inhibitor Start: 04-30-2021 take 1 tablet by mouth once daily at dinner escitalopram 20 MG tablet Indications: Seizure disorder Take 1 tablet by mouth Daily (with dinner). 30 tablet 11 04/30/2021 Active folic acid 1 mg oral tablet (16 sources) Start: 07-07-2023 take 1 mg by [...] lamoTRIgine 50 mg extended release oral tablet (19 sources) Mood Stabil izer, Anti-e pilept ic [...] 08/21/2023 Discontinued loratadine 10 mg oral tablet (12 sources) take 1 tablet by mouth every twenty-four hours as needed loratadine (Claritin) 10 MG tablet Take 10 mg by mouth Daily as needed Active 12 hr loratadine 5 mg / pseudoephedrine sulfate 120 mg extended release oral tablet (3 sources) alpha-Adrenergic Agonist take 1 tablet by mouth once in the morning, then take 1 tablet by mouth every twelve hours at bedtime loratadine-pseudo ephedrine ER (Claritin-D 12-hour) 5-120 MG 12 hr tablet Take 1 tablet by mouth in the morning and 1 tablet before bedtime. Do not crush, chew, or split. . Active LORazepam 0.5 mg oral tablet (12 sources) Benzodiazepine Start: take 0.5 mg by mouth once daily Lorazepam Active 0.5 MG PO Daily July 07, 2023 12:00am Start: 03-22-2022 End: 06-21-2023 LORazepam 0.5 MG tablet Amy cations: Anxiety disorder, unspecified type 1 tab up to three times a week as needed for anxiety 10 tablet 1 03/22/2022 06/21/2023 Discontinued Magnesium glycinate (6 sources) Start: 07-07-2023 Magnesium Glyc inate Active [...] Active medroxyPROGESTERone acetate 10 mg oral tablet (11 sources) Progestin Start: 07-07-2023 End: 07-07-2023 take 10 mg by mouth once daily Medroxyprogesterone Active 10 MG PO Daily July 07, 2023 2:44pm melatonin 3 mg oral tablet (16 sources) Start: 07-07-2023 take 3 mg by mouth once daily at bedtime Melatonin Active 3 MG PO Daily at bedtime July 07, 2023 12:00am Start: 03-22-2022 End: 02-14-2023 take 1 tablet by mouth once daily at bedtime Melatonin 3 MG tablet Indications: Difficulty falling asleep at night until nursing services manager hours TAKE 1 TABLET BY MOUTH EVERYDAY AT BEDTIME 90 tablet 2 03/22/2022 02/14/2023 Discontinued Melatonin 5 MG C hew Tab Chew 1 tablet at bedtime as needed. Active metFORMIN hydrochloride 500 mg oral tablet (14 sources) Biguanide Start: 07-07-2023 take 500 mg by mouth once daily Metformin Active 500 MG PO Daily July 07, 2023 12:00am Start: 05-13-2023 take 1 tablet by once daily at dinner metFORMIN XR (Glucophage-XR) 500 MG 24 hr tablet Indications: PCOS (polycystic ovarian syndrome) TAKE 1 TABLET BY MOUTH EVERY DAY WITH EVENING MEAL 90 tablet 3 05/13/2023 Active midazolam 50 mg/ml nasal spray (12 sources) Benzodiazepine Start: 10-02-2020 Midazolam (Nay zilam) 5 MG/0.1ML Solution Indications: Seizure disorder 5 mg by Nasal route as needed. For seizure clusters longer than 5 minutes. May repeat in 10 minutes. Do not exceed 10 mg in 24 hours. 2 Each 10/02/2020 Active Start: 02-18-2019 midazolam HCl 50 MG/10ML Solution 10 mg by Nasal route. 0 02/18/2019 Active Multiple Vitamins-Minerals ( CULTURELLE PROBIOTICS + MULTIV PO) (3 sources) Multiple Vitamin s-Minerals (CULTURELLE PROBIOTICS + MULTIV PO) Take by mouth Active Multiple Vitamin s-Minerals (CULTURELLE PROBIOTICS + MULTIV PO) Take by mouth 0 Active Prenat MV-Min w/Ci-Eruubm-ZE A ( COMPLETE PO) (8 sources) take 1 tablet by josh th once at bedtime Prenat MV-Min w/Sj-Jvvesn-SIZ ( COMPLETE PO) Take 1 tablet by mouth at bedtime. Active take 1 tablet by mouth once at b edtime Prenat MV-Min w/Uo-Zsbuww-OAC ( COMPLETE PO) Take 1 tablet by mouth at bedtime. 0 Active MV-Min-Fe Fum-FA-DH A ( 1 PO) (3 sources) MV-Min- Fe Fum-FA-DHA ( 1 PO) Take by mouth. Active MV-Min- Fe Fum-FA-DHA ( 1 PO) Take by mouth. 0 Active sertraline 50 mg oral tablet (20 sources) Serotonin Reuptake Inhibitor Start: 08-21-2023 take [...] at bedtime 90 tablet 3 04/19/2022 Active sertraline (Zolo ft) 100 MG tablet Take 150 mg by mouth at bedtime Active 24 hr divalproex sodium 250 mg [...] Date Documented Da te Episodic/Chronic Anxiety disorders (12 sources) Anxiety disorder; Translations: [Anxiety disorder, unspecified] [...] SYNDROME] Onset: 05-23-2022 Chronic Other endocrine disorders (3 sources) Polycystic ovary syndrome; Translations: [Polycystic ovarian syndrome] Onset: 12-10-2022 12-10-2022 Chronic Other nutritional; endocrine; and metabolic disorders (11 sources) Obese class II; Translations: [Obesity, unspecified] Onset: 10-28-2019 10-28-2019 Chronic Other upper respiratory infections (5 sources) Maxillary sinusitis; Translations: [Chronic maxillary sinusitis] 07-07-2023 Chronic Residual codes; unclassified (4 sources) Presence of other specified functional implants; Translations: [Presence of other specified functional implants] Onset: 03-20-2018 Chronic Residual codes; unclassified (13 sources) Past history of procedure; Translations: [Presence of other specified functional implants] Onset: 10-24-2011 10-05-2019 Chronic Past or Other Problems Problem Classification Problem Date Documented Date Episodic/Chronic Fracture of lower limb (20 sources) Closed pilon fracture; Translations: [Displaced pilon fracture of right tibia, initial encounter for closed fracture] Onset: 07-17-2016 10-28-2019 Episodic Genitourinary symptoms and ill-defined conditions (9 sources) Microscopic hematuria; Translations: [Other microscopic hematuria] Onset: 02-21-2011 12-06-2022 Episodic Immunizations and screening for infectious disease (1 source) Encounter for screening for human papillomavirus (HPV); Translations: [ENC SCREENING HUMAN PAPILLOMAVIRUS] Onset: 08-28-2021 Episodic Other aftercare (11 sources) Wound ; Translations: [Encounter for other specified surgical aftercare] Onset: 04-17-2018 10-05-2019 Episodic Other screening for suspected conditions (not mental disorders or infectious disease) (4 sources) Encounter for screening for malignant neoplasm of cervix; Translations: [ENC SCREENING MALIG NEOPLASM CERV] Onset: 08-27-2021 Episodic Residual codes; unclassified (11 sources) Dietary finding; Translations: [Other specified health status] Onset: 08-27-2017 10-05-2019 Episodic Results Test Name Value Interpretation Reference Range Facility ALL PROGESTERONEon 4 PROGESTERONE 19.7 ng/mL . [facility] Comment on above: Follicular phase 0.1 - 0.9 Luteal phase 1.8 - 23.9 Ovulation phase 0.1 - 12.0 First trimester 11.0 - 44.3 Second trimester 25.4 - 83.3 Third trimester 58.7 - 214.0 Postmenopausal 0.0 - 0.1 Performed at: [facility] [address] [id number] [employer]achutist: Ino Dougherty PhD, Phone: [phone] [facility] Serum or plasma progesterone measurement (mass/volume)on 09-11-2023 Progesterone [Mass/Vol] 12.9 ng/mL . [facility] Comment on above: Follicular phase 0.1 - 0.9 Luteal phase 1.8 - 23.9 Ovulation phase 0.1 - 12.0 First trimester 11.0 - 44.3 Second trimester 25.4 - 83.3 Third trimester 58.7 - 214.0 Postmenopausal 0.0 - 0.1Performed at: [employer] [place], [place] [id number] Director: Ino Dougherty PhD, Phone: [phone] Serum or plasma progesterone measurement (mass/volume)on 08-08-2023 Progesterone [Mass/Vol] 11.3 ng/mL . [facility] Comment on above: Follicular phase 0.1 - 0.9 Luteal phase 1.8 - 23.9 Ovulation phase 0.1 - 12.0 First trimester 11.0 - 44.3 Second trimester 25.4 - 83.3 Third trimester 58.7 - 214.0 Postmenopausal 0.0 - 0.1Performed at: [employer] [place], [place] [id number] Director: Ino Dougherty PhD, Phone: [phone] Serum or plasma progesterone measurement (mass/volume)on 07-09-2023 Progesterone [Mass/Vol] 16.6 ng/mL . [facility] Comment on above: Follicular phase 0.1 - 0.9 Luteal phase 1.8 - 23.9 Ovulation phase 0.1 - 12.0 First trimester 11.0 - 44.3 Second trimester 25.4 - 83.3 Third trimester 58.7 - 214.0 Postmenopausal 0.0 - 0.1Performed at: [employer] [place], [place] [id number] Director: Ino Dougherty PhD, Phone: [phone] No Panel Informationon 06-26 Human Chorionic Gonadotropin, Quant <1 mIU/mL [facility] Comment on above: 5-50 0.2-1 [id number] 0 1-2 [id number],000 2-3 EIXJA120-40,000 3-4 WEEKS1,000-50,000 4-5 WEEKS10,000-100,000 5-6 WEEKS15,000-200,000 6-8 WEEKS10,000-100,000 2-3 MONTHS Serum or plasma progesterone measurement (mass/volume)on 06-08-2023 Progesterone [Mass/Vol] 20.7 ng/mL . [facility] Comment on above: Follicular phase 0.1 - 0.9 Luteal phase 1.8 - 23.9 Ovulation phase 0.1 - 12.0 First trimester 11.0 - 44.3 Second trimester 25.4 - 83.3 Third trimester 58.7 - 214.0 Postmenopausal 0.0 - 0.1Performed at: [employer] [place], [place] [id number] Director: Ino Dougherty PhD, Phone: [phone] Laboratory - Chemistry and C hemistry - challengeon 05-09-2023 Free T4 [Mass/Vol] 0.77 ng/dL 0.76-1.46 [facility] No Panel Informationon 05-08 Free Triiodothyronine 2.78 pg/mL 2.18-3.[address] [facility] Serum or plasma progesterone measurement (mass/volume)on 05-09-2023 Progesterone [Mass/Vol] 19.3 ng/mL . [facility] Comment on above: Follicular phase 0.1 - 0.9 Luteal phase 1.8 - 23.9 Ovulation phase 0.1 - 12.0 First trimester 11.0 - 44.3 Second trimester 25.4 - 83.3 Third trimester 58.7 - 214.0 Postmenopausal 0.0 - 0.1Performed at: [employer] [place], [place] [id number] Director: Ino Dougherty PhD, Phone: [phone] BETA HCG, URINE (POC DEVICE) on 01-15-2023 Beta HCG ( test) Ql (U) Negative Negative [facility] Interpretation and review of laboratory results Normal [facility] Test performed at address of the patient encounter. [facility] CARDIAC RHYTHM (SCANNED)on 03-17-2022 [facility] CBC AND ELECTRONIC DIFFon Basophils (Bld) [#/Vol] 0.05 10*3/uL 0.00 - 0.15 K/uL [facility] Basophils/100 WBC (Bld) 0.5 % O [facility] Differential cell count method Nom (Bld) Electronic Differential [facility] Eosinophils (Bld) [#/Vol] 0.12 10*3/uL 0. 00 - 0.42 K/uL [facility] Eosinophils/100 WBC (Bld) 1.2 % [facility] Erythrocyte distribution width (RBC) [Ratio] 13.1 % 10.8 - 14.9 % [facility] Hematocrit (Bld) [Volume fraction] 42.5 % 34.9 - 44.3 % [facility] Hemoglobin (Bld) [Mass/Vol] 14.3 g/dL 11.4 - 15.2 g/dL [facility] Immature granulocytes (Bld) [#/Vol] K/uL NINF - 0.08 K/uL [facility] Immature granulocytes/100 WBC (Bld) 0.3 % [facility] Lymphocytes (Bld) [#/Vol] 3.42 10*3/uL 1. 16 - 3.51 K/uL [facility] Lymphocytes/100 WBC (Bld) 32.9 % [facility] MCH (RBC) [Entitic mass] 31.1 pg 25. 9 - 33.9 pg [facility] MCHC (RBC) [Mass/Vol] 33.6 g/dL 31.4 - 35.9 g/dL [facility] MCV (RBC) [Entitic vol] 92.4 fL 79.6 - 97.7 fL [facility] Monocytes (Bld) [#/Vol] 0.62 10*3/uL 0.22 - 0.87 K/uL [facility] Monocytes/100 WBC (Bld) 6.0 % [facility] Neutrophils (Bld) [#/Vol] 6.14 10*3/uL 1. 64 - 7.28 K/uL [facility] Nucleated RBC/100 WBC (Bld) [Ratio] 0.0 % NINF [facility] Platelet mean volume (Bld) [Entitic vol] 10.8 fL 8.5 - 12.2 fL [facility] Platelets (Bld) [#/Vol] 326 10*3/uL 150 - 393 K/uL [facility] RBC (Bld) [#/Vol] 4.60 10*6/uL [facility] Segmented neutrophils/100 WBC (Bld) 59.1 % [facility] WBC (Bld) [#/Vol] 10.38 10*3/uL 3.99 - 11 .19 K/uL [facility] Basophils (Bld) [#/Vol] 0.05 10*3/uL Normal 0.00-0.15 [facility] Comment on above: Performed By: #### L [id number] #### [facility] (DEFAULT) [address] [place] [address] Basophils/100 WBC (Bld) 0.5 % Normal O [facility] Comment on above: Performed By: #### L [id number] #### [facility] (DEFAULT) [address] [place] [address] DIFF STATUS Electronic Differential Normal [facility] Comment on above: Performed By: #### L [id number] #### [facility] (DEFAULT) [address] [place] [address] Eosinophils (Bld) [#/Vol] 0.12 10*3/uL Normal 0.00-0.4 2 [facility] Comment on above: Performed By: #### L [id number] #### [facility] (DEFAULT) [address] [address] Eosinophils/100 WBC (Bld) 1.2 % Normal [facility] Comment on above: Performed By: #### L [id number] #### [facility] (DEFAULT) [address] [place] [address] Hematocrit (Bld) [Volume fraction] 42.5 % Normal 34.9-44.3 [facility] Comment on above: Performed By: #### L [id number] #### U [facility] (DEFAULT) [address] [address] Hemoglobin (Bld) [Mass/Vol] 14.3 g/dL Normal 11.4-15.2 [facility] Comment on above: Performed By: #### L [id number] #### [facility] (DEFAULT) [address] [address] Immature Grans % 0.3 % Normal [facility] Comment on above: Performed By: #### L [id number] #### [facility] (DEFAULT) [address] [address] Immature Grans Absolute < Normal <=0.08 O [facility] Comment on above: Performed By: #### L [id number] #### [facility] (DEFAULT) [address] [address] Lymphocytes (Bld) [#/Vol] 3.42 10*3/uL Normal 1.16-3.5 1 [facility] Comment on above: Performed By: #### L [id number] #### [facility] (DEFAULT) [address] [address] Lymphocytes/100 WBC (Bld) 32.9 % Normal [facility] Comment on above: Performed By: #### L [id number] #### [facility] (DEFAULT) [address] [address] MCV (RBC) [Entitic vol] 92.4 fL Normal 79.6-97.7 O [facility] Comment on above: Performed By: #### L [id number] #### [facility] (DEFAULT) [address] [address] Mean Cell Hgb 31.1 pg Normal 25.9-33.9 [facility] Comment on above: Performed By: #### L [id number] #### [facility] (DEFAULT) [address] [place] [address] Mean Cell Hgb Conc 33.6 g/dL Normal 31.4-35.9 [facility] Comment on above: Performed By: #### L [id number] #### [facility] (DEFAULT) [address] [place] [address] Monocytes (Bld) [#/Vol] 0.62 10*3/uL Normal 0.22-0.87 [facility] Comment on above: Performed By: #### L [id number] #### [facility] (DEFAULT) [address] [place] [address] Monocytes/100 WBC (Bld) 6.0 % Normal O [facility] Comment on above: Performed By: #### L [id number] #### [facility] (DEFAULT) [address] [place] [address] Nucleated RBC 0.0 /100 WBC Normal <=0.2 [facility] Comment on above: Performed By: #### L [id number] #### [facility] (DEFAULT) [address] [place] [address] Platelet mean volume (Bld) [Entitic vol] 10.8 fL Normal 8.5-12.2 [facility] Comment on above: Performed By: #### L [id number] #### [facility] (DEFAULT) [address] [place] [address] Platelets (Bld) [#/Vol] 326 10*3/uL Normal 150-393 [facility] Comment on above: Performed By: #### L [id number] #### [facility] (DEFAULT) [address] [place] [address] RBC (Bld) [#/Vol] 4.60 10*6/uL Normal 3.91-5.04 [facility] Comment on above: Performed By: #### L [id number] #### [facility] (DEFAULT) [address] [place] [address] RBC Distribution 13.1 % Normal 10.8-14.9 [facility] Comment on above: Performed By: #### L [id number] #### [facility] (DEFAULT) [address] [address] Segs + Bands Auto 59.1 % Normal [facility] Comment on above: Performed By: #### L [id number] #### [facility] (DEFAULT) [address] [place] [address] Segs + Bands,Absolute Auto 6.14 K/uL Normal 1.64-7.28 [facility] Comment on above: Performed By: #### L [id number] #### [facility] (DEFAULT) [address] [address] WBC (Bld) [#/Vol] 10.38 10*3/uL Normal 3.99-11.19 [facility] Comment on above: Performed By: #### L [id number] #### [facility] (DEFAULT) [address] [place] [address] CMPN WITHOUT GLUCOSEon 01-09 Albumin [Mass/Vol] 4.9 g/dL Normal 3.5-5.0 [facility] Comment on above: Performed By: #### C MPNG #### [facility] (DEFAULT) [address] [place] [address] ALP [Catalytic activity/Vol] 35 U/L Normal 32-126 [facility] Comment on above: Performed By: #### C MPNG #### [facility] (DEFAULT) [address] [address] ALT [Catalytic activity/Vol] 19 U/L Normal 9-48 [facility] Comment on above: Performed By: #### C MPNG #### [facility] (DEFAULT) [address] [place] [address] Anion gap [Moles/Vol] 13 mmol/L Normal 7-17 [facility] Comment on above: Performed By: #### C MPNG #### [facility] (DEFAULT) [address] [place] [address] AST [Catalytic activity/Vol] 18 U/L Normal 10-39 [facility] Comment on above: Performed By: #### C MPNG #### [facility] (DEFAULT) [address] [place] [address] Bilirubin [Mass/Vol] 0.3 mg/dL Normal <1.5 [facility] Comment on above: Performed By: #### C MPNG #### [facility] (DEFAULT) [address] [place] [address] Calcium [Mass/Vol] 9.2 mg/dL Normal 8.6-10.5 [facility] Comment on above: Performed By: #### C MPNG #### [facility] (DEFAULT) [address] [place] [address] Chloride [Moles/Vol] 102 mmol/L Normal 98-108 [facility] Comment on above: Performed By: #### C MPNG #### [facility] (DEFAULT) [address] [place] [address] CO2 [Moles/Vol] 26 mmol/L Normal 21-31 [facility] Comment on above: Performed By: #### C MPNG #### [facility] (DEFAULT) [address] [place] [address] Creatinine [Mass/Vol] 0.64 mg/dL Normal 0.50-1.20 [facility] Comment on above: Performed By: #### C MPNG #### [facility] (DEFAULT) [address] [place] [address] eGFR, CKD-EPI, Female > Normal >=60 [facility] Comment on above: Result Comment: Repo rted eGFR is based on the CKD-EPI 2020 equation using creatinine, age, and sex. Performed By: #### C MPNG #### [facility] (DEFAULT) [address] [place] [address] Potassium [Moles/Vol] 4.0 mmol/L Normal 3.5-5.0 [facility] Comment on above: Performed By: #### C MPNG #### [facility] (DEFAULT) [address] [place] [address] Protein [Mass/Vol] 7.9 g/dL Normal 6.4-8.3 [facility] Comment on above: Performed By: #### C MPNG #### [facility] (DEFAULT) [address] [place] [address] Sodium [Moles/Vol] 137 mmol/L Normal 135-145 [facility] Comment on above: Performed By: #### C MPNG #### [facility] (DEFAULT) [address] [place] [address] Urea nitrogen [Mass/Vol] 12 mg/dL Normal 7-25 [facility] Comment on above: Performed By: #### C MPNG #### [facility] (DEFAULT) [address] [place] [address] Urea nitrogen/Creatinine [Mass ratio] 19 mg/mg Normal [facility] Comment on above: Performed By: #### C MPNG #### [facility] (DEFAULT) [address] [place] [address] HCG ( test) Ql (U)O rdered By: Jamil Santos on 01-09-2023 Beta HCG ( test) Ql Negative Negative [facility] Interpretation and review of laboratory results Normal [facility] HCG QUALITATIVE, URINEon Beta HCG ( test) Ql (U) Negative Normal Negative [facility] Comment on above: Performed By: #### U HCG #### [facility] (DEFAULT) [address] [place] [address] LAMOTRIGINE LEVELon 01-10-20 23 Lamotrigine, S 4.3 mcg/mL Normal 3.0-15.0 [facility] Comment on above: Result Comment: ADDITIONAL INFORMATION This test was developed and its performance characteristics determined by [facility] in a manner consistent with CLIA requirements. This test has not been cleared or approved by the U.S. Food and Drug Administration. Test Performed by: [facility] [place] [address] [employer]ist: Juno Vega M.D. Ph.D.; CLIA# [id number] Performed By: #### Y ELTON #### U [facility] (DEFAULT) [address] [address] PT,INR,PTTon 01-09-2023 aPTT Coag (PPP) [Time] 31.1 s [facility] INR Coag (Bld) [Relative time] 1.0 {INR} 0.9 - 1.1 [facility] Interpretation and review of laboratory results Normal [facility] PT Coag (PPP) [Time] 13.0 s [facility] aPTT Coag (Bld) [Time] 31.1 s Normal 24.0-34.3 [facility] Comment on above: Performed By: #### P TPTT #### [facility] (DEFAULT) [address] [address] INR Coag (PPP) [Relative time] 1.0 {INR} Normal 0.9-1.1 [facility] Comment on above: Performed By: #### P TPTT #### [facility] (DEFAULT) [address] [address] PT Coag (PPP) [Time] 13.0 s Normal 11.9-14.2 [facility] Comment on above: Performed By: #### P TPTT #### [facility] (DEFAULT) [address] [address] SCREEN: MRSA/MSSAOrdered By: Alexandra Slater on 01-09-2023 Interpretation and review of laboratory results Abnormal [facility] Methicillin Resistant S. Aureus By Pcr Negative Negative [facility] Staphylococcus Aureus By Pcr Positive Abnormal Negative [facility] This test was performed using a [...] by the Clinical Microbiology Laboratory at The [facility]. It has not been cleared or approved by the FDA.The laboratory is regulated under CLIA as qualified to perform high-complexity testing. This test is used for clinical purposes. It should not be regarded as investigational or for research. [facility] SCREEN: MRSA/MSSAon 01-10-20 23 Methicillin Resistant S. Aureus By Pcr Negative Normal Negative [facility] Comment on above: Order Comment: This test [...] by the Clinical Microbiology Laboratory at The [facility]. It has not been cleared or approved by the FDA.The laboratory is regulated under CLIA as qualified to perform high-complexity testing. This test is used for clinical purposes. It should not be regarded as investigational or for research. Performed By: #### S CRSB #### [facility] (DEFAULT) [address] [place] [address] Staphylococcus Aureus By Pcr Positive Abnormal Negative [facility] Comment on above: Order Comment: This test [...] by the Clinical Microbiology Laboratory at [facility]. It has not been cleared or approved by the FDA.The laboratory is regulated under CLIA as qualified to perform high-complexity testing. This test is used for clinical purposes. It should not be regarded as investigational or for research. Performed By: #### S CRSB #### [facility] (DEFAULT) [address] [place] [id number] VITAMIN D (25-HYDROXY,TOTAL) on 01-09-2023 25-OH Vitamin D Total 35.2 ng/mL Normal 30.0-100.0 [facility] Comment on above: Order Comment: Vitam in D values have been shown to be falsely decreased in lipemic samples and should be interpreted with caution. Result Comment: <10 Deficiency 10-29 Insufficiency 30-100 Optimal Level >100 Possible Toxicity Performed By: #### D 25OH #### [facility] (DEFAULT) [address] [place] [id number] XR Cervical and thoracic and lumbar spine [...] IMPRESSION: Intact vagus nerve stimulator as described. [facility] Radiology Study observation (narrative) [facility] XR Cervical and thoracic and lumbar spine ViewsOrdered By: Alice Crespo on 01-09-2023 [facility] Work Phone: XR STIMULATOR/INTRATHECAL PU MP [...] Intact vagus nerve stimulator as described. Normal [facility] PROGESTERONEon 05-24-2022 Progesterone 5.5 ng/mL Normal [facility] Comment on above: Result Comment: Foll icular phase 0.1 - 0.9 Luteal phase 1.8 - 23.9 Ovulation phase 0.1 - 12.0 First trimester 11.0 - 44.3 Second trimester 25.4 - 83.3 Third trimester 58.7 - 214.0 Postmenopausal 0.0 - 0.1 Performed By: #### P DANIEL #### [facility] [address] [address] [address] Nicol Oswald LAMOTRIGINEon 05-02-2022 Lamotrigine, Serum 4.7 ug/mL Normal 2.0-20.0 [facility] Comment on above: Result Comment: Dete ction Limit = 1.0 Performed By: #### P DANIEL #### [facility] [address] [place] [address] Dr. Nicol Oswald CBC AUTO DIFFon 04-30-2022 BASO # 0.0 103/ul Normal 0.0-0.1 [facility] Comment on above: Performed By: #### C BC #### [facility] [address] [place] [address] Dr. Nicol Oswald Basophils/100 WBC (Bld) 0.4 % Normal 0.2-2.0 [facility] Comment on above: Performed By: #### C BC #### [facility] [address] [place] [address] Dr. Nicol Oswald EO # 0.2 103/ul Normal 0.0-0.7 [facility] Comment on above: Performed By: #### C BC #### [facility] [address] [place] [address] Dr. Nicol Oswald Eosinophils/100 WBC (Bld) 1.9 % Normal 0.9-7.0 [facility] Comment on above: Performed By: #### C BC #### [facility] [address] [place] [address] Dr. Nicol Oswald Erythrocyte distribution width (RBC) [Ratio] 12.8 % Normal 11.0-15.0 [facility] Comment on above: Performed By: #### C BC #### [facility] [address] [place] [address] Dr. Nicol Oswald Hematocrit (Bld) [Volume fraction] 40.4 % Normal 36.0-48.0 [facility] Comment on above: Performed By: #### C BC #### [facility] [address] [place] [address] Dr. Nicol Oswald Hemoglobin (Bld) [Mass/Vol] 13.6 g/dL Normal 12.0-16.0 [facility] Comment on above: Performed By: #### C BC #### [facility] [address] [place] [address] Dr. Nicol Oswald IG # 0.03 10e3/ul Normal 0.00-0.03 [facility] Comment on above: Performed By: #### C BC #### [facility] [address] [place] [address] Dr. Nicol Oswald IG % 0.4 % Normal 0.0-0.5 [facility] Comment on above: Performed By: #### C BC #### [facility] [address] [place] [address] Dr. Nicol Oswald LYMPH # 3.1 103/ul Normal 1.2-3.8 [facility] Comment on above: Performed By: #### C BC #### [facility] [address] [place] [address] Dr. Nicol Oswald Lymphocytes/100 WBC (Bld) 36.4 % Normal 20.5-60.0 [facility] Comment on above: Performed By: #### C BC #### [facility] [address] [place] [address] Dr. Nicol Oswald MANUAL DIFF REQ NO Normal [facility] Comment on above: Performed By: #### C BC #### [facility] [address] [place] [address] Dr. Nicol Oswald MCH (RBC) [Entitic mass] 31.0 pg Normal 26.7-34.0 [facility] Comment on above: Performed By: #### C BC #### [facility] [address] [place] [address] Dr. Nicol Oswald MCHC (RBC) [Mass/Vol] 33.7 g/dL Normal 29.9-35.2 [facility] Comment on above: Performed By: #### C BC #### [facility] [address] [place] [address] Dr. Nicol Oswald MCV (RBC) [Entitic vol] 92.0 fL Normal 81.0-99.0 [facility] Comment on above: Performed By: #### C BC #### [facility] [address] [place] [address] Dr. Nicol Oswald MONO # 0.7 103/ul Normal 0.3-0.8 [facility] Comment on above: Performed By: #### C BC #### [facility] [address] [place] [address] Dr. Nicol Oswald Monocytes/100 WBC (Bld) 7.7 % Normal 1.7-12.0 [facility] Comment on above: Performed By: #### C BC #### [facility] [address] [place] [address] Dr. Nicol Oswald NEUT # 4.5 103/ul Normal 1.4-6.5 [facility] Comment on above: Performed By: #### C BC #### [facility] [address] [place] [address] Dr. Nicol Oswald Neutrophils/100 WBC (Bld) 53.2 % Normal 43.0-75.0 [facility] Comment on above: Performed By: #### C BC #### [facility] [address] [place] [address] Dr. Nicol Oswald Platelet mean volume (Bld) [Entitic vol] 11.0 fL Normal 9.5-13.5 [facility] Comment on above: Performed By: #### C BC #### [facility] [address] [place] [address] Dr. Nicol Oswald PLT 282 103/ul Normal 150-450 [facility] Comment on above: Performed By: #### C BC #### [facility] [address] [place] [address] Dr. Nicol Oswald RBC 4.39 106/ul Normal 4.20-5.40 [facility] Comment on above: Performed By: #### C BC #### [facility] [address] [place] [address] Dr. Nicol Oswald WBC 8.4 103/ul Normal 4.0-11.0 [facility] Comment on above: Performed By: #### C BC #### [facility] [address] [place] [address] Dr. Nicol Oswald LIVER PROFILEon 04-30-2022 Albumin [Mass/Vol] 4.1 g/dL Normal 3.4-5.0 [facility] Comment on above: Performed By: #### P JASONES #### [facility] [address] [place] [address] Dr. Nicol Oswald Albumin/Globulin [Mass ratio] 1.2 {ratio} Normal [facility] Comment on above: Performed By: #### P JASONES #### [facility] [address] [place] [address] Dr. Nicol Oswald ALP [Catalytic activity/Vol] 52 U/L Normal 46-116 [facility] Comment on above: Performed By: #### P DANIEL #### [facility] [address] [place] [address] Dr. Nicol Oswald ALT [Catalytic activity/Vol] 23 U/L Normal 14-59 [facility] Comment on above: Performed By: #### P DANIEL #### [facility] [address] [place] [address] Dr. Nicol Oswald AST [Catalytic activity/Vol] 17 U/L Normal 15-37 [facility] Comment on above: Performed By: #### P DANIEL #### [facility] [address] [place] [address] Dr. Nicol Oswald BILI, CONJUGATED 0.1 mg/dL Normal 0.0-0.2 [facility] Comment on above: Performed By: #### P DANIEL #### [facility] [address] [place] [address] Dr. Nicol Oswald Bilirubin [Mass/Vol] 0.2 mg/dL Normal 0.2-1.0 [facility] Comment on above: Performed By: #### P ROGES #### [facility] [address] [place] [address] Dr. Nicol Oswald Globulin (S) [Mass/Vol] 3.4 g/dL Normal [facility] Comment on above: Performed By: #### P DANIEL #### [facility] [address] [place] [address] Dr. Nicol Oswald Protein [Mass/Vol] 7.5 g/dL Normal 6.4-8.2 [facility] Comment on above: Performed By: #### P ROGES #### [facility] [address] [address] [address] Nicol Oswald PROF CHEM 8 (BAS METB)on Anion gap [Moles/Vol] 8.5 mmol/L Normal [facility] Comment on above: Performed By: #### P DANIEL #### [facility] [address] [place] [address] Dr. Nicol Oswald Calcium [Mass/Vol] 9.4 mg/dL Normal 8.5-10.1 [facility] Comment on above: Performed By: #### P DANIEL #### [facility] [address] [place] [address] Dr. Nicol Oswald Chloride [Moles/Vol] 102 mmol/L Normal 98-107 [facility] Comment on above: Performed By: #### P DANIEL #### [facility] [address] [place] [address] Dr. Nicol Oswald CO2 [Moles/Vol] 30.4 mmol/L Normal 21.0-32.0 [facility] Comment on above: Performed By: #### P DANIEL #### [facility] [address] [place] [address] Dr. Nicol Oswald Creatinine [Mass/Vol] 0.57 mg/dL Normal 0.55-1.02 [facility] Comment on above: Performed By: #### P DANIEL #### [facility] [address] [place] [address] Dr. Nicol Oswald EGFR-AF GUYANESE >60 Normal >=60 [facility] Comment on above: Performed By: #### P JASONES #### [facility] [address] [place] [address] Dr. Nicol Oswald EGFR-NON AF GUYANESE >60 Normal >=60 [facility] Comment on above: Performed By: #### P DANIEL #### [facility] [address] [place] [address] Dr. Nicol Oswald Glucose [Mass/Vol] 89 mg/dL Normal 74-106 [facility] Comment on above: Performed By: #### P DANIEL #### [facility] [address] [address] [address] Nicol Oswald Potassium [Moles/Vol] 3.9 mmol/L Normal 3.5-5.1 [facility] Comment on above: Performed By: #### P DANIEL #### [facility] [address] [address] [address] Nicol Oswald Sodium [Moles/Vol] 137 mmol/L Normal 136-145 [facility] Comment on above: Performed By: #### P DANIEL #### [facility] [address] [address] [address] Nicol Oswald Urea nitrogen [Mass/Vol] 10.0 mg/dL Normal 7.0-18.0 [facility] Comment on above: Performed By: #### P DANIEL #### [facility] [address] [address] [address] Nicol Oswald Urea nitrogen/Creatinine [Mass ratio] 17.5 mg/mg Normal [facility] Comment on above: Performed By: #### P DAINEL #### [facility] [address] [address] [address] Nicol Oswald ESTROGENon 04-19-2022 Estrogens, Total 124 pg/mL Normal [facility] Comment on above: Result Comment: Prep ubertal < 40 Female Cycle: 1-10 Days 16 - 328 11-20 Days 34 - 501 21-30 Days 48 - 350 Post-Menopausal 40 - 244 Performed By: #### E KYLIE #### [facility] [address] [address] [address] Nicol Oswald DHEA SERUMon 04-18-2022 Dehydroepiandrosterone (DHEA) 371 ng/dL Normal 31-701 [facility] Comment on above: Result Comment: Age 3 [...] 31 - 701 Performed By: #### P DNAIEL #### [facility] [address] [place] [address] Dr. Nicol Oswald DHEA-SULFATEon 04-16-2022 DHEA-Sulfate 371.0 ug/dL Normal 84.8-378.0 [facility] Comment on above: Performed By: #### P DANIEL #### [facility] [address] [place] [address] Dr. Nicol Oswald FSHon 04-16-2022 FSH 5.6 mIU/mL Normal [facility] Comment on above: Result Comment: Adul t Female: Follicular phase 3.5 - 12.5 Ovulation phase 4.7 - 21.5 Luteal phase 1.7 - 7.7 Postmenopausal 25.8 - 134.8 Performed By: #### P DANIEL #### [facility] [address] [place] [address] Dr. Nicol Oswald LUTEINIZING HORMONE (LH)on 0 04-16-2022 LH 12.9 mIU/mL Normal [facility] Comment on above: Result Comment: Adul t Female: Follicular phase 2.4 - 12.6 Ovulation phase 14.0 - 95.6 Luteal phase 1.0 - 11.4 Postmenopausal 7.7 - 58.5 Performed By: #### P DANIEL #### [facility] [address] [place] [address] Dr. Nicol Oswald PROGESTERONEon 04-16-2022 Progesterone 0.2 ng/mL Normal [facility] Comment on above: Result Comment: Foll icular phase 0.1 - 0.9 Luteal phase 1.8 - 23.9 Ovulation phase 0.1 - 12.0 First trimester 11.0 - 44.3 Second trimester 25.4 - 83.3 Third trimester 58.7 - 214.0 Postmenopausal 0.0 - 0.1 Performed By: #### P DANIEL #### [facility] [address] [place] [address] Dr. Nicol Oswald PROLACTINon 04-16-2022 Prolactin 7.1 ng/mL Normal 4.8-23.3 [facility] Comment on above: Performed By: #### P ROLAC #### [facility] [address] [place] [address] Dr. Nicol Oswald US PELVIS AND TRANSVAGon [...] CYDNEY VALDEZ Date: 2022-04-16 08:48 Normal [facility] CBC AUTO DIFFon 04-15-2022 BASO # 0.0 103/ul Normal 0.0-0.1 [facility] Comment on above: Performed By: #### C BC #### [facility] [address] [address] [address] Nicol Oswald Basophils/100 WBC (Bld) 0.5 % Normal 0.2-2.0 [facility] Comment on above: Performed By: #### C BC #### [facility] [address] [address] [address] Nicol Oswald EO # 0.2 103/ul Normal 0.0-0.7 [facility] Comment on above: Performed By: #### C BC #### [facility] [address] [address] [address] Nicol Oswald Eosinophils/100 WBC (Bld) 2.1 % Normal 0.9-7.0 [facility] Comment on above: Performed By: #### C BC #### [facility] [address] [place] [address] Dr. Nicol Oswald Erythrocyte distribution width (RBC) [Ratio] 12.5 % Normal 11.0-15.0 [facility] Comment on above: Performed By: #### C BC #### [facility] [address] [place] [address] Dr. Nciol Oswald Hematocrit (Bld) [Volume fraction] 44.7 % Normal 36.0-48.0 [facility] Comment on above: Performed By: #### C BC #### [facility] [address] [place] [address] Dr. Nicol Oswald Hemoglobin (Bld) [Mass/Vol] 14.3 g/dL Normal 12.0-16.0 [facility] Comment on above: Performed By: #### C BC #### [facility] [address] [place] [address] Dr. Nicol Oswald IG # 0.01 10e3/ul Normal 0.00-0.03 [facility] Comment on above: Performed By: #### C BC #### [facility] [address] [place] [address] Dr. Nicol Oswald IG % 0.1 % Normal 0.0-0.5 [facility] Comment on above: Performed By: #### C BC #### [facility] [address] [place] [address] Dr. Nicol Oswald LYMPH # 2.0 103/ul Normal 1.2-3.8 [facility] Comment on above: Performed By: #### C BC #### [facility] [address] [place] [address] Dr. Nicol Oswald Lymphocytes/100 WBC (Bld) 26.0 % Normal 20.5-60.0 [facility] Comment on above: Performed By: #### C BC #### [facility] [address] [place] [address] Dr. Nicol Oswald MANUAL DIFF REQ NO Normal [facility] Comment on above: Performed By: #### C BC #### [facility] [address] [place] [address] Dr. Nicol Oswald MCH (RBC) [Entitic mass] 30.8 pg Normal 26.7-34.0 [facility] Comment on above: Performed By: #### C BC #### [facility] [address] [place] [address] Dr. Nicol Oswald MCHC (RBC) [Mass/Vol] 32.0 g/dL Normal 29.9-35.2 [facility] Comment on above: Performed By: #### C BC #### [facility] [address] [place] [address] Dr. Nicol Oswald MCV (RBC) [Entitic vol] 96.3 fL Normal 81.0-99.0 [facility] Comment on above: Performed By: #### C BC #### [facility] [address] [place] [address] Dr. Nicol Oswald MONO # 0.6 103/ul Normal 0.3-0.8 [facility] Comment on above: Performed By: #### C BC #### [facility] [address] [place] [address] Dr. Nicol Oswald Monocytes/100 WBC (Bld) 7.3 % Normal 1.7-12.0 [facility] Comment on above: Performed By: #### C BC #### [facility] [address] [place] [address] Dr. Nicol Oswald NEUT # 4.9 103/ul Normal 1.4-6.5 [facility] Comment on above: Performed By: #### C BC #### [facility] [address] [place] [address] Dr. Nicol Oswald Neutrophils/100 WBC (Bld) 64.0 % Normal 43.0-75.0 [facility] Comment on above: Performed By: #### C BC #### [facility] [address] [place] [address] Dr. Nicol Oswald Platelet mean volume (Bld) [Entitic vol] 11.3 fL Normal 9.5-13.5 [facility] Comment on above: Performed By: #### C BC #### [facility] [address] [place] [address] Dr. Nicol Oswald PLT 302 103/ul Normal 150-450 [facility] Comment on above: Performed By: #### C BC #### [facility] [address] [place] [address] Dr. Nicol Oswald RBC 4.64 106/ul Normal 4.20-5.40 [facility] Comment on above: Performed By: #### C BC #### [facility] [address] [place] [address] Dr. Nicol Oswald WBC 7.7 103/ul Normal 4.0-11.0 [facility] Comment on above: Performed By: #### C BC #### [facility] [address] [place] [address] Dr. Nicol Oswald FREE T4on 04-15-2022 Free T4 [Mass/Vol] 0.80 ng/dL Normal 0.76-1.46 [facility] Comment on above: Performed By: #### F T4 #### [facility] [address] [place] [address] Dr. Nicol Oswald GLYCOHEMOGLOBIN A1Con 2022 ADA RECOMMENDATION SEE BELOW Normal [facility] Comment on above: Result Comment: ADA RECOMMENDED LIMIT 4.0 - 6.0 ADA THERAPEUTIC TARGET < 7.0 ACTION SUGGESTED > 7.0 Performed By: #### A 1C #### [facility] [address] [place] [address] Dr. Nicol Oswald Glucose [Mass/Vol] 114 mg/dL Normal [facility] Comment on above: Performed By: #### A 1C #### [facility] [address] [place], [place] [address] Dr. Nicol Oswald HbA1c (Bld) [Mass fraction] 5.6 % Normal 4.5-6.2 [facility] Comment on above: Performed By: #### A 1C #### [facility] [address] [place] [address] Dr. Nicol Oswald PREG QUANT HCGon 04-15-2022 HCG QUANT <1 Normal [facility] Comment on above: Performed By: #### P REGQNT, TSH #### [facility] [address] [address] [address] Nicol Oswald HCG RANGE SEE BELOW [facility] Comment on above: Result Comment: 5-50 0.2-1 WEEK 50-500 1-2 WEEKS 100-5,000 2-3 WEEKS 500-10,000 3-4 WEEKS 1,000-50,000 4-5 WEEKS 10,000-100,000 5-6 WEEKS 15,000-200,000 6-8 WEEKS 10,000-100,000 2-3 MONTHS Performed By: #### P REGQNT, TSH #### [facility] [address] [address] [address] Nicol Oswald TSHon 04-15-2022 TSH 1.312 uIU/mL Normal 0.358-3.740 [facility] Comment on above: Performed By: #### P REGQNT, TSH #### [facility] [address] [place] [address] Dr. Nicol Oswald PAP ACOG PANEL 2: 21 to 29on 08-31-2021 . . Normal [facility] Comment on above: Performed By: #### P ROGES #### [facility] [address] [address] [address] Nicol Oswald Age Gdln ACOG Testing - [facility] Comment on above: Performed By: #### P ROGES #### [facility] [address] [place] [address] Dr. Nicol Oswald DIAGNOSIS: Comment [facility] Comment on above: Result Comment: NEGA TIVE FOR INTRAEPITHELIAL LESION OR MALIGNANCY. THIS SPECIMEN WAS RESCREENED PART OF OUR NETWORK SPECIALIST PROGRAM. Performed By: #### P ROGES #### [facility] [address] [place] [address] Dr. Nicol Oswald Methodology: Comment [facility] Comment on above: Result Comment: This liquid based ThinPrep(R) pap test was screened with the use of an image guided system. Performed By: #### P ROGES #### [facility] [address] [place] [address] Dr. Nicol Oswald Note: Comment [facility] Comment on above: Result Comment: The Pap smear is a screening test designed to aid in the detection of premalignant and malignant conditions of the uterine cervix. It is not a diagnostic procedure and should not be used as the sole means of detecting cervical cancer. Both false-positive and false-negative reports do occur. . Performed By: #### P DANIEL #### [facility] [address] [place] [address] Dr. Nicol Oswald Performed by: Comment Normal [facility] Comment on above: Result Comment: Mireille Blanco, Brand Strategist (ASCP) Performed By: #### P DANIEL #### [facility] [address] [address] [address] Nicol Oswald QC reviewed by: Comment Normal [facility] Comment on above: Result Comment: Tahira Roque, Brand Strategist (ASCP) Performed By: #### P DANIEL #### [facility] [address] [place] [address] Dr. Nicol Owsald Reflex Criteria: Comment Normal [facility] Comment on above: Result Comment: The HPV DNA reflex criteria were not met with this specimen result therefore, no HPV testing was performed. . Performed By: #### P DANIEL #### [facility] [address] [address] [address] Nicol Oswald Specimen adequacy: Comment Normal [facility] Comment on above: Result Comment: Sati sfactory for evaluation. Endocervical and/or squamous metaplastic cells (endocervical component) are present. Performed By: #### P DANIEL #### [facility] [address] [place] [address] Dr. Nicol Oswald CBC Auto Diff Reflex Manualo n 02-18-2019 Automated Absolute Neutrophil 5.73 10*3/mm3 Normal [facility] Comment on above: Result Comment: Auto mated Absolute Neutrophil Count (ANC) is directly measured using a hematology instrument. ANC determined from manual differential cell count may differ. No [facility] reference range has been validated for this assay. Performed By: #### C D #### [facility], [address] [place] [address] Basophil 0.5 % Normal 0.0-1.0 [facility] Comment on above: Performed By: #### C D #### [place] [address] Differential Type Automated Normal [facility] Comment on above: Performed By: #### C D #### [place] [address] Eosinophil 1.6 % Normal 1.0-4.0 [facility] Comment on above: Performed By: #### C D #### [place] [address] Erythrocyte distribution width (RBC) [Ratio] 13.4 % Normal 10-14.1 [facility] Comment on above: Performed By: #### C D #### [place] [address] Lymphocyte 22.6 % Low 24.0-44.0 [facility] Comment on above: Performed By: #### C D #### [place] [address] MCH (RBC) [Entitic mass] 30.7 pg Normal 26-34 [facility] Comment on above: Performed By: #### C D #### [place] [address] MCHC (RBC) [Mass/Vol] 33.2 % Normal 31.0-37.0 [facility] Comment on above: Performed By: #### C D #### [place] [address] MCV (RBC) [Entitic vol] 92.4 fL Normal 80-[address] [facility] Comment on above: Performed By: #### C D #### [place] [address] Monocyte 8.2 % High 1.0-7.0 [facility] Comment on above: Performed By: #### C D #### [place] [address] Neutrophil 67.1 % Normal 41.0-77.0 [facility] Comment on above: Performed By: #### C D #### Performed at [address] [address] Platelet mean volume (Bld) [Entitic vol] 11.5 fL Normal 9.3-13.0 [facility] Comment on above: Performed By: #### C D #### Performed at [address] [address] Platelets (Bld) [#/Vol] 268 10*3/uL Normal 140-440 [facility] Comment on above: Performed By: #### C D #### Performed at [address] [address] RBC (Bld) [#/Vol] 4.60 10*6/uL Normal 4.0-5.2 [facility] Comment on above: Performed By: #### C D #### Performed at [address] [address] WBC (Bld) [#/Vol] 8.6 10*3/uL Normal 4.5-11 [facility] Comment on above: Performed By: #### C D #### Performed at [address] [address] Comprehensive Metabolic Pane mehran 02-18-2019 Albumin [Mass/Vol] 4.7 g/dL Normal 3.4-5.2 [facility] ALP [Catalytic activity/Vol] 47 U/L Low 50-136 [facility] ALT [Catalytic activity/Vol] 32 U/L Normal <40 [facility] AST [Catalytic activity/Vol] 29 U/L Normal 15-50 [facility] Bilirubin Ql (U) 0.2 mg/dL Normal 0.1-1.0 [facility] Calcium [Mass/Vol] 9.8 mg/dL Normal 8-10.5 [facility] Chloride [Moles/Vol] 104 mmol/L Normal 95-106 [facility] CO2 [Moles/Vol] 25 mmol/L Normal 24-35 [facility] Creatinine [Mass/Vol] 0.52 mg/dL Normal 0.5-1 [facility] Glucose [Mass/Vol] 135 mg/dL High 60-115 [facility] Potassium [Moles/Vol] 4.5 mmol/L Normal 3.7-5.3 [facility] Protein [Mass/Vol] 8.0 g/dL Normal 6.4-8.4 [facility] Sodium [Moles/Vol] 140 mmol/L Normal 135-145 [facility] Urea nitrogen [Mass/Vol] 15 mg/dL Normal 5-18 [facility] Valproic Acidon 02-18-2019 Valproic Acid 47.1 ug/mL Low 50.0-100.0 [facility] PAP, THIN PREP WITH IMAGINGo n 06-29-2018 PAP, THIN PREP WITH IMAGING Normal [facility] Comment on above: Result Comment: INTE RPRETATION Thin Prep Image-Guided Pap Test (Cervical/Endocervical) NEGATIVE FOR INTRAEPITHELIAL LESION /MALIGNANCY Satisfactory for evaluation (Endocervical/transformation zone component present) [facility]/06/27/2018 The Pap test is a screening test, [...] 05/18/18 ICD-CM DIAGNOSIS CODE(S) Z01.419 [facility] [employer] Exam (general) (routine) W/o Abn Findings * EFFECTIVE 06/08/2018 * * CLINICAL CHEMISTRY PLATFORM CHANGES ARE ASSOCIATED WITH * * REFERENCE RANGE CHANGES FOR A NUMBER OF ANALYTES. PLEASE * * REVIEW REFERENCE INTERVALS CAREFULLY * [facility] [employer] [address] [address] CLIA No. [id number] CAP Accreditation No. [id number] Business Intelligence Director: Johnson Garland M.D. [employer] Accession Number: [id number] Performed By: #### P L PAP W/IMAGE #### [address] [facility] [place] [address] CT Nucleic-Acid Probe-Endoce rvical Swabon 06-24-2018 CT Nucleic-Acid Probe-Endocervical Swab Negative Normal NEGATIVE [facility] Comment on above: Performed By: #### G C Amp Endocerv, CT Amp Endocerv #### [address] [place] [address] Age at specimen collection = Normal [facility] Comment on above: Performed By: #### G C Amp Endocerv, CT Amp Endocerv #### [address] [place] [address] Performed By: #### P L PAP W/IMAGE #### [address] [place] [address] GC Nucleic-Acid Probe-Endoce rvical Swabon 06-24-2018 GC Nucleic-Acid Probe-Endocervical Swab Negative Normal NEGATIVE [facility] Comment on above: Performed By: #### G C Amp Endocerv, CT Amp Endocerv #### [address] [place] [address] Platelet Functionon 03-24-19 19 Collagen/ADP 148 sec High 67-112 [facility] Comment on above: Performed By: #### P FA #### [employer] [address] [place] [address] Collagen/EPI 228 sec High 85-172 [facility] Comment on above: Performed By: #### P FA #### [employer] [address] [place] [address] Interpretation Abnormal platelet function. Normal [facility] Comment on above: Result Comment: Comm [...] established. Performed By: #### P FA #### [facility] [address] [place] [address] XR ANKLE RIGHT STANDARDon XR ANKLE RIGHT STANDARD Radiology exam i s complete. No Radiologist dictation. Please follow up with ordering provider. Final result Normal [place] Vital Signs Date Time Vital Sign Value Performing Clinician Facility 09-24-2023 10:290400 Body height 170.18 cm [facility] 09-24-2023 10:29-0400 Body mass index (BMI) [Ratio] 30.2 kg/m2 [facility] 09-24-2023 10:29-0400 Body weight 87.54 kg [facility] 09-24-2023 10:29-0400 Diastolic blood pressure 78 mm[Hg] [facility] 09-24-2023 10:29-0400 Heart rate 67 /min [facility] 09-24-2023 10:29-0400 SaO2% (BldA) [Mass fraction] 98 % [facility] 09-24-2023 10:29-0400 Systolic blood pressure 112 mm[Hg] [facility] 08-21-2023 14:43-0400 Body height 161.3 cm Cori Hernández V DO Work Phone: [facility] Comment on above: verbal 08-21-2023 14:43-0400 Body mass index (BMI) [Ratio] 34.59 kg/m2 Cori Maturu V, DO Work Phone: [facility] 08-21-2023 14:43-0400 Body temperature 98.29 [degF] Cori Maturu V, DO Work Phone: [facility] 08-21-2023 14:43-0400 Body weight 89.99 kg Cori Vincenzouru V, DO Work Phone: [facility] 08-21-2023 14:43-0400 Diastolic blood pressure 76 mm[Hg] Cori Vincenzouru V, DO Work Phone: [facility] 08-21-2023 14:43-0400 Heart rate 88 /min Cori Loyauru V, DO Work Phone: [facility] 08-21-2023 14:43-0400 Systolic blood pressure 130 mm[Hg] Cori Maturu V, DO Work Phone: [facility] 07-07-2023 14:37-0400 Body height 170.18 cm [facility] 07-07-2023 14:37-0400 Body mass index (BMI) [Ratio] 30.8 kg/m2 [facility] 07-07-2023 14:37-0400 Body weight 89.35 kg [facility] 07-07-2023 14:37-0400 Diastolic blood pressure 78 mm[Hg] [facility] 07-07-2023 14:37-0400 Heart rate 81 /min [facility] 07-07-2023 14:37-0400 SaO2% (BldA) [Mass fraction] 98 % [facility] 07-07-2023 14:37-0400 Systolic blood pressure 112 mm[Hg] [facility] 05-28-2023 14:04-0400 Body height 161.3 cm Riana MORELOS Work Phone: [facility] 05-28-2023 14:04-0400 Body mass index (BMI) [Ratio] 34.09 kg/m2 Riana Chinchilla NURSING COORDINATOR-ARCHIVES DIRECTOR Work Phone: [facility] 05-28-2023 14:04-0400 Body temperature 98.01 [degF] Riana Chinchilla NURSING COORDINATOR-ARCHIVES DIRECTOR Work Phone: [facility] 05-28-2023 14:04-0400 Body weight 88.68 kg Riana Chinchilla NURSING COORDINATOR-ARCHIVES DIRECTOR Work Phone: [facility] 05-28-2023 14:04-0400 Diastolic blood pressure 74 mm[Hg] Riana Chinchilla NURSING COORDINATOR-ARCHIVES DIRECTOR Work Phone: [facility] 05-28-2023 14:04-0400 Heart rate 92 /min Riana Chinchilla NURSING COORDINATOR-ARCHIVES DIRECTOR Work Phone: [facility] 05-28-2023 14:04-0400 Systolic blood pressure 122 mm[Hg] Riana Chinchilla NURSING COORDINATOR-ARCHIVES DIRECTOR Work Phone: [facility] 04-22-2023 13:04-0500 Body mass index (BMI) [Ratio] 34 kg/m2 Donovan Kimmie DO Work Phone: [facility] 04-22-2023 13:04-0500 Body weight 88.45 kg Donovan Kimmie DO Work Phone: [facility] 04-22-2023 13:04-0500 Diastolic blood pressure 78 mm[Hg] Donovan Kimmie DO Work Phone: [facility] 04-22-2023 13:04-0500 Systolic blood pressure 120 mm[Hg] Donovan Kimmie DO Work Phone: [facility] 02-14-2023 15:48-0500 Body height 161.3 cm Riana Chinchilla NURSING COORDINATOR-ARCHIVES DIRECTOR Work Phone: [facility] Comment on above: verbal 02-14-2023 15:48-0500 Body mass index (BMI) [Ratio] 34.82 kg/m2 Riana Chinchilla NURSING COORDINATOR-ARCHIVES DIRECTOR Work Phone: [facility] 02-14-2023 15:48-0500 Body temperature 97.9 [degF] Riana Chinchilla NURSING COORDINATOR-ARCHIVES DIRECTOR Work Phone: [facility] 02-14-2023 15:48-0500 Body weight 90.58 kg Riana Raoul NURSING COORDINATOR-ARCHIVES DIRECTOR Work Phone: [facility] 02-14-2023 15:48-0500 Diastolic blood pressure 79 mm[Hg] Riana Raoul NURSING COORDINATOR-ARCHIVES DIRECTOR Work Phone: [facility] 02-14-2023 15:48-0500 Heart rate 107 /min Riana Chinchilla NURSING COORDINATOR-ARCHIVES DIRECTOR Work Phone: [facility] 02-14-2023 15:48-0500 Systolic blood pressure 133 mm[Hg] Riana Chinchilla NURSING COORDINATOR-ARCHIVES DIRECTOR Work Phone: [facility] 01-15-2023 13:50-0500 Body temperature 97.5 [degF] Evy Verma MD Work Phone: [facility] 01-15-2023 13:50-0500 Diastolic blood pressure 79 mm[Hg] Evy Verma MD Work Phone: [facility] 01-15-2023 13:50-0500 Heart rate 78 /min Evy Verma MD Work Phone: [facility] 01-15-2023 13:50-0500 Respiratory rate 16 /min Evy Verma MD Work Phone: [facility] 01-15-2023 13:50-0500 SaO2% (BldA) [Mass fraction] 98 % Evy Verma MD Work Phone: [facility] 01-15-2023 13:50-0500 Systolic blood pressure 117 mm[Hg] Evy Verma MD Work Phone: [facility] 01-15-2023 07:50-0500 Body height 161.3 cm Evy Verma MD Work Phone: [facility] 01-15-2023 07:50-0500 Body mass index (BMI) [Ratio] 34.37 kg/m2 Evy Verma MD Work Phone: [facility] 01-15-2023 07:50-0500 Body weight 89.4 kg Evy Verma MD Work Phone: [facility] 01-09-2023 08:39-0400 Body height 161.3 cm Esau Hernandez PAC Work Phone: [facility] 01-09-2023 08:39-0400 Body mass index (BMI) [Ratio] 33.65 kg/m2 Esau Hernandez PAC Work Phone: [facility] 01-09-2023 08:39-0400 Body temperature 98.49 [degF] Esau Hernandez PAC Work Phone: [facility] 01-09-2023 08:39-0400 Body weight 87.54 kg Esau Hernandez PAC Work Phone: [facility] 01-09-2023 08:39-0400 Diastolic blood pressure 80 mm[Hg] Esau Hernandez PAC Work Phone: [facility] 01-09-2023 08:39-0400 Heart rate 81 /min Esau Hernandez PAC Work Phone: [facility] 01-09-2023 08:39-0400 Respiratory rate 18 /min Esau Hernandez PAC Work Phone: [facility] 01-09-2023 08:39-0400 SaO2% (BldA) [Mass fraction] 98 % Esau Hernandez PAC Work Phone: [facility] 01-09-2023 08:39-0400 Systolic blood pressure 134 mm[Hg] Esau Hernandez LALY Work Phone: [facility] 12-10-2022 10:53-0400 Body height 160 cm Evy Verma MD Work Phone: [facility] 12-10-2022 10:53-0400 Body mass index (BMI) [Ratio] 34.19 kg/m2 Evy Verma MD Work Phone: [facility] 12-10-2022 10:53-0400 Body weight 87.54 kg Evy Verma MD Work Phone: [facility] 12-10-2022 10:53-0400 Diastolic blood pressure 63 mm[Hg] Evy Verma MD Work Phone: [facility] 12-10-2022 10:53-0400 Heart rate 65 /min Evy Verma MD Work Phone: [facility] 12-10-2022 10:53-0400 Systolic blood pressure 125 mm[Hg] vEy Verma MD Work Phone: [facility] 11-08-2022 16:21-0400 Body height 160 cm Riana Chinchilla NURSING COORDINATOR-ARCHIVES DIRECTOR Work Phone: [facility] Comment on above: verbal 11-08-2022 16:21-0400 Body mass index (BMI) [Ratio] 34.26 kg/m2 Riana Chinchilla NURSING COORDINATOR-ARCHIVES DIRECTOR Work Phone: [facility] 11-08-2022 16:21-0400 Body temperature 99.1 [degF] Riana Chinchilla NURSING COORDINATOR-ARCHIVES DIRECTOR Work Phone: [facility] 11-08-2022 16:21-0400 Body weight 87.73 kg Riana Chinchilla NURSING COORDINATOR-ARCHIVES DIRECTOR Work Phone: [facility] 11-08-2022 16:21-0400 Diastolic blood pressure 71 mm[Hg] Riana Chinchilla NURSING COORDINATOR-ARCHIVES DIRECTOR Work Phone: [facility] 11-08-2022 16:21-0400 Heart rate 97 /min Riana Chinchilla NURSING COORDINATOR-ARCHIVES DIRECTOR Work Phone: [facility] 11-08-2022 16:21-0400 Systolic blood pressure 116 mm[Hg] Riana Chinchilla NURSING COORDINATOR-ARCHIVES DIRECTOR Work Phone: [facility] 07-04-2021 09:38-0400 Body height 161.3 cm Riana Chinchilla NURSING COORDINATOR-ARCHIVES DIRECTOR Work Phone: [facility] Comment on above: verbal 07-04-2021 09:38-0400 Body mass index (BMI) [Ratio] 36.23 kg/m2 Riana Chinchilla NURSING COORDINATOR-ARCHIVES DIRECTOR Work Phone: [facility] 07-04-2021 09:38-0400 Body temperature 98.71 [degF] Riana Chinchilla NURSING COORDINATOR-ARCHIVES DIRECTOR Work Phone: [facility] 07-04-2021 09:38-0400 Body weight 94.26 kg Riana Chinchilla NURSING COORDINATOR-ARCHIVES DIRECTOR Work Phone: [facility] 07-04-2021 09:38-0400 Diastolic blood pressure 70 mm[Hg] Riana Chinchilla NURSING COORDINATOR-ARCHIVES DIRECTOR Work Phone: [facility] 07-04-2021 09:38-0400 Heart rate 73 /min Riana Chinchilla NURSING COORDINATOR-ARCHIVES DIRECTOR Work Phone: [facility] 07-04-2021 09:38-0400 Systolic blood pressure 119 mm[Hg] Riana Chinchilla NURSING COORDINATOR-ARCHIVES DIRECTOR Work Phone: [facility] Encounters Encounter Date Encounter Type Care Provider Facility Start: 12-15-2023 End: 12-16-2023 Clinisync Result Encounter Donovan Burks DO Work Phone: [facility] External Department Unsolicited Start: 12-15-2023 End: 12-16-2023 Clinisync Result Encounter Donovan Burks DO Work Phone: [facility] External Department Unsolicited Start: 11-19-2023 End: 11-19-2023 Telephone encounter [facility] Comment on above: Insurance Start: 11-14-2023 End: 11-14-2023 Telephone encounter Helena Meza MA [facility] Comment on above: Insurance ([facility]) Start: 10-20-2023 End: 10-20-2023 ambulatory DONOVAN BURKS Not Available Start: 10-15-2023 End: 10-15-2023 ambulatory MADONNA Duy PARSONS Not Available Start: 09-24-2023 End: 09-24-2023 ambulatory [facility] Work Phone: Start: 09-24-2023 End: 09-24-2023 Patient encounter procedure [facility] Work Phone: Start: 09-11-2023 Non-patient / Non-visit [facility] Physician [facility] Work Phone: Start: 08-21-2023 End: 08-21-2023 Office outpatient visit 25 minutes Cori Hernández DO Work Phone: Neurology [facility] 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); Anxiety disorder, unspecified type Start: 08-21-2023 ambulatory [facility] Facility: [facility] Start: 08-08-2023 Non-patient / Non-visit [facility] Physician [facility] Work Phone: Start: 07-09-2023 Non-patient / Non-visit [facility] Physician [facility] Work Phone: Start: 07-07-2023 End: 07-07-2023 ambulatory [facility] Work Phone: Start: 07-07-2023 End: 07-07-2023 Patient encounter procedure [facility] Physician [facility] Work Phone: Start: 06-27-2023 Non-patient / Non-visit [facility] Physician [facility] Work Phone: Start: 06-08-2023 Non-patient / Non-visit [facility] Physician [facility] Work Phone: Start: 05-28-2023 End: 05-28-2023 Office outpatient visit 25 minutes Riana Chinchilla NURSING COORDINATOR-ARCHIVES DIRECTOR Work Phone: [facility] [place] 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); Anxiety disorder, unspecified type Start: 05-28-2023 ambulatory [facility] Facility: [facility] Start: 05-09-2023 Non-patient / Non-visit [facility] Physician [facility] Work Phone: Start: 04-22-2023 End: 04-22-2023 ambulatory DONOVAN KIMMIE Not Available Start: 04-22-2023 End: 04-22-2023 Office outpatient visit 15 minutes Donovan Kimmie DO Work Phone: [facility] Comment on above: Encounter for fertil ity planning Start: 04-22-2023 End: 04-22-2023 ambulatory DONOVAN KIMMIE Not Available Start: 02-14-2023 End: 02-14-2023 Office outpatient visit 25 minutes Riana Chinchilla NURSING COORDINATOR-ARCHIVES DIRECTOR Work Phone: [facility] [place] 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); 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 Start: 02-14-2023 ambulatory TIM LA BARGE Facility: [facility] Start: 01-15-2023 End: 01-15-2023 ambulatory EVY VERMA Facility:[facility] Start: 01-15-2023 End: 01-15-2023 Subsequent hospital visit by physician Evy Verma MD Work Phone: [facility] 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 Start: 01-09-2023 ambulatory EVY VERMA Facility:[facility] Start: 01-09-2023 End: 01-09-2023 Office consultation new/estab patient 60 min Esau Hernandez PAC Work Phone: Pre-Procedure Evaluation and Assessment [facility] Comment on above: Preop exam for inter nal medicine (Primary Dx); Jeavons syndrome; 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 Start: 01-09-2023 End: 01-09-2023 Patient encounter status Esau Lion Hernandez PAC Work Phone: [facility] Start: 01-09-2023 End: 01-09-2023 Subsequent hospital visit by physician Evy Verma MD Work Phone: Imaging [facility] Comment on above: Arrived Start: 01-09-2023 ambulatory TIM BALL Facility: [facility] Start: 01-09-2023 Encounter for other preprocedural examination ESAU HERNANDEZ Facility:[facility] Start: 01-09-2023 ambulatory TIM BALL Facility: [facility] Start: 12-10-2022 End: 12-10-2022 Office outpatient new 45 minutes Evy Verma MD Work Phone: [place] [facility] 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) Start: 12-10-2022 ambulatory RIANA CHINCHILLA Facilit y:[facility] Start: 11-27-2022 ambulatory TIM BALL Facility: [facility] Start: 11-19-2022 ambulatory TIM BALL Facility: [facility] Start: 11-14-2022 ambulatory TIM BALL Facility: [facility] Start: 11-08-2022 End: 11-08-2022 Office outpatient visit 40 minutes Riana Chinchilla NURSING COORDINATOR-ARCHIVES DIRECTOR Work Phone: Neurology [facility] 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) Start: 11-08-2022 ambulatory RIANA CHINCHILLA Facilit y:[facility] Start: 09-19-2022 ambulatory TIM BALL Facility: [facility] Start: 09-13-2022 ambulatory SELF SELF Facility:[facility] Start: 05-23-2022 End: 05-24-[address] DONOVAN BURKS . Facility: Start: 04-30-2022 End: 05-01-[address] DOCTOR ASHTON Facility:[facility] Start: 04-16-2022 End: 04-17-[address] DONOVAN BURKS . Facility: Start: 04-15-2022 End: 04-16-[address] DONOVAN BURKS . Facility:[facility] Start: 08-27-2021 End: 08-27-[address] DONOVAN BURKS . Facility: Start: 07-04-2021 End: 07-04-2021 Office outpatient visit 25 minutes Riana Chinchilla NURSING COORDINATOR-ARCHIVES DIRECTOR Work Phone: Neurology [facility] Comment on above: Generalized nonconvu lsive epilepsy (Primary Dx) Start: 06-24-2018 Encounter for gynecological examination (general) (routine) without abnormal findings NA NONE PER PATIENT [facility] Start: 06-24-2018 End: 06-24-2018 Patient encounter procedure GERARDO WARD Facility:[facility] Start: 05-25-2018 End: 05-25-2018 Patient encounter procedure . NONE PER PATIENT Facility:[facility] Start: 05-13-2018 End: 05-13-2018 Patient encounter procedure . NONE PER PATIENT Facility:[facility] Start: 03-23-2018 End: 03-24-2018 Patient encounter procedure [facility] Start: 03-20-2018 End: 03-21-2018 Patient encounter procedure [facility] Procedures Date Procedure Procedure Detail Performing Clinician Start: 12-15-2023 ALL PROGESTERONE Donovan Burks DO Work Phone: Start: 01-15-2023 CARDIAC RHYTHM Other Ot her [...] By: #### C D #### [facility] at [facility], [address] [place] [address] Start: 03-23-2018 PLATELET FUNCTION TEST JAMIL SMITH Plan of Treatment Date Care Activity Detail Author Start: 10-28-2024 End: 10-28-2024 Patient encounter procedure 10/28/2024 9:00 AM EDT Office Visit [facility] [address] [place] [address] Donovan Burks DO [address] [place] [address] [facility] Start: 01-22-2024 End: 01-22-2024 Patient encounter procedure 01/22/2024 9:15 AM EST Office Visit [facility] [address] [facility] [address] [place] [phone] Cori Dia, DO [address] [place] [address] [facility] Start: 11-28-2023 End: 11-28-2023 Patient encounter procedure 11/28/2023 10:20 AM EDT Office Visit [facility] [address] [facility] [address] [place] [address] Riana Chinchilla, NURSING COORDINATOR-ARCHIVES DIRECTOR [address] [place] [address] [facility] Start: 11-09-2023 COVID-19 VACCINE () COVID-19 VACCINE ( season) [facility] Start: 11-09-2023 Influenza vaccination [facility] Start: 08-21-2023 End: 08-21-2023 Patient encounter procedure 08/21/2023 2:45 PM EDT Office Visit Neu[facility] [address] [facility] [address] [place] [address] Cori Dia, [address] [place] [address] [facility] Start: 05-28-2023 End: 05-28-2023 Patient encounter procedure 05/28/2023 2:00 PM EDT Office Visit [facility]rology [facility] [address] [facility] [address] [place] [address] Riana Chinchilla, NURSING COORDINATOR-ARCHIVES DIRECTOR [address] [place] [address] [facility] Start: 02-14-2023 End: 02-14-2023 Patient encounter procedure [facility] Start: 01-15-2023 End: 01-15-2023 Admission to same day surgery center 01/15/2023 9:40 AM EST - 01/15/2023 11:50 AM EST Surgery [facility] [address] [place] [phone] Evy Verma MD [address] [place] [phone] INSERTION REPLACEMENT NEUROSTIMULATOR GENERATOR CRANIAL/INTRACRANIAL [facility] Comment on above: INSERTION REPLACEMENT NEUROSTIMULATOR GE NERATOR CRANIAL/INTRACRANIAL Start: 01-15-2023 End: 01-15-2023 Insj/rplcmt cranial neurostim pulse generator INSERTION REPLACEMENT NEUROSTIMULATOR GENERATOR CRANIAL/INTRACRANIAL Jeavons syndrome 01/15/2023 9:40 AM EST [facility] Start: 01-15-2023 Subsequent hospital visit by physician 01/15/2023 9:40 AM EST Hospital Encounter [facility] [address] [place] [address] Evy Verma MD [address] [place] [address] Jeavons syndrome [facility] 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 Start: 12-10-2022 End: 12-11-2023 Radiographic imaging procedure XR STIMULATOR/INTRATHECAL PUMP Imaging Routine Jeavons syndrome Expected: 12/10/2022, Expires: 12/11/2023 [facility] Comment on above: Expected: 12/10/2022, Expires: Start: 12-10-2022 End: 12-10-2022 Patient encounter procedure 12/10/2022 11:30 AM EDT Office Visit [facility] [address] [place] [address] [place] [address] Evy Verma MD [address] [place] [address] [place] [facility] Start: 11-08-2022 COVID-19 VACCINE ( season) COVID-19 VACCINE ( season) [facility] Start: 11-08-2022 Influenza vaccination INFLUENZA VACCINE (#1) [facility] Start: 01-04-2022 End: 01-04-2022 Patient encounter procedure 01/04/2022 Office Visit Neurology Cori Dia, [address] [place] [address] [facility] Start: 11-08-2021 Influenza vaccination INFLUENZA VACCINE (Season Ended) [facility] Start: 10-10-2021 End: 10-10-2021 Telemedicine consultation with patient 10/10/2021 Telemedicine Neurology Riana Chinchilla, NURSING COORDINATOR-ARCHIVES DIRECTOR [address] [place] [address] [facility]rology [facility] Start: 08-15-2021 End: 08-15-2021 Telemedicine consultation with patient 08/15/2021 Telemedicine Neurology Riana Chinchilla, NURSING COORDINATOR-ARCHIVES DIRECTOR [address] [place] [address] [facility] Start: 2013 Screening for malignant neoplasm of cervix CERVICAL CANCER SCREENING DISCUSSION [facility] Start: 07-15-2011 Hepatitis B vaccination HEP B VACCINE (1 of 3 - 19+ 3-dose series) [facility] Start: 07-15-2011 Third diphtheria, tetanus and acellular pertussis (DTaP) vaccination TDAP (ADULT) [facility] Start: 2010 Tetanus vaccination TETANUS [facility] Start: 07-15-2007 HIV screening HIV SCREENING DISCUSSION [facility] Start: 1997 COVID-19 VACCINE (1) COVID-19 VACCINE (1) [facility] Start: 01-14-1993 COVID-19 VACCINE (#1) COVID-19 VACCINE (#1) [facility] Start: 1992 Hepatitis B vaccination HEP B VACCINE (1 of 3 - 3-dose series) [facility] Start: 1992 Hepatitis C antibody, confirmatory test HEPATITIS C VIRUS SCREENING [facility] Start: 1992 Hepatitis C screening HEPATITIS C VIRUS SCREENING [facility] Start: 1992 Tetanus vaccination TETANUS [facility] Ecg routine ecg w/le ast 12 lds w/i&r MT ELECTROCARDIOGRAM, COMPLETE MT - OFFICE PERFORMED Routine 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 Ordered: 01/09/2023 [facility] Comment on above: Ordered: 01/09/2023 Elec horace implt npgt phys/qhp w/o programming MT ELEC HORACE IMPLT NPGT PHYS/QHP W/O PROGRAMMING MT Charge Routine Jeavons syndrome Ordered: 09/09/2023 [facility] Comment on above: Ordered: 09/09/2023 Elec horace implt smpl cn npgt prgrmg MT ELEC HORACE IMPLT SMPL CN NPGT PRGRMG MT Charge Routine Jeavons syndrome Ordered: 11/14/2022 [facility] Comment on above: Ordered: 11/14/2022 Elec horace implt smpl cn npgt prgrmg MT ELEC HORACE IMPLT SMPL CN NPGT PRGRMG MT Charge Routine 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 Ordered: 03/12/2023 [facility] Comment on above: Ordered: 03/12/2023 Elec horace implt smpl cn npgt prgrmg MT ELEC HORACE IMPLT SMPL CN NPGT PRGRMG MT Charge Routine Jeavons syndrome Ordered: 06/21/2023 [facility] Comment on above: Ordered: 06/21/2023 Insj/rplcmt cranial neurostim pulse generator INSERTION REPLACEMENT NEUROSTIMULATOR GENERATOR CRANIAL/INTRACRANIAL Jeavons syndrome [facility] Noninvasive ear/puls e oximetry single deter MT NONINVASV OXYGEN SATUR; SINGLE MT - OFFICE PERFORMED Routine 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 Ordered: 01/09/2023 [facility] Comment on above: Ordered: 01/09/2023 Immunizations Immunization Date Immunization Notes Care Provider [facility] 01-04-2014 influenza, seasonal, injectable, preservative free Evy Verma MD Work Phone: [facility] 01-04-2014 influenza virus vaccine, unspecified formulation Riana Chinchilla APRN-ARCHIVES DIRECTOR Work Phone: [facility] Payers Date Payer Category Payer Unknown [id number] 2021 Medicaid [employer] [place] [id number] 2021-Present [address] [place] [address] [id number] 2016 Unknown [id number] 2016 Self-pay 2014 Unknown [id number] 1992 Unknown [id number] 2.16.840.1.415055.3.579.2.173 1992 Unknown [id number] 2.16.840.1.451295.3.579.2.173 1992 Unknown [id number] 2.16.840.1.512479.3.579.2.754 1992 Unknown [id number] 2.16.840.1.525027.3.579.2.754 1992 Unknown [id number] 2.16840.1.071258.3.579.2.754 1992 Unknown [id number] 2.840.1.425630.3.579.2.754 1992 Unknown [id number] 2.16840.1.517704.3.579.2.593 1992 Unknown [id number] 2.16840.1.617087.3.579.2.593 1992 Unknown [id number] 2.16840.1.992174.3.579.2.593 1992 Unknown [id number] 2.840.1.617914.3.579.2.593 1992 Unknown [id number] 2.16840.1.188666.3.579.2.593 1992 Unknown [id number] 2.16.840.1.943592.3.579.2.1259 1992 Unknown [id number] 2.16.840.1.054997.3.579.2.594 1992 Unknown [id number] 2.16.840.1.278901.3.579.2.594 1992 Unknown [id number] 2.16.840.1.856256.3.579.2.594 1992 Unknown [id number] 2.16.840.1.660460.3.579.2.594 1992 Unknown [id number] 2.16.840.1.682215.3.579.2.594 1992 Unknown [id number] 2.16840.1.658041.3.579.2.594 1992 Unknown [id number] 2.16.840.1.925311.3.579.2.594 1992 Unknown [id number] 2.16840.1.271971.3.579.2.594 1992 Unknown [id number] 2.16840.1.142311.3.579.2.594 1992 Unknown [id number] 2.840.1.819391.3.579.2.594 1992 Unknown [id number] 2.16840.1.902562.3.579.2.594 1992 Unknown [id number] 2.16840.1.817604.3.579.2.594 1992 Unknown [id number] 2.16840.1.789250.3.579.2.594 1992 Unknown [id number] 2.840.1.449278.3.579.2.594 1992 Unknown [id number] 2.16840.1.694205.3.579.2.594 1992 Unknown [id number] 2.840.1.038243.3.579.2.1259 1992 Unknown [id number] 2.16840.1.784763.3.579.2.1259 1959 Unknown [id number] 1959 Unknown [id number] Social History Date Type Detail Facility Start: 10-28-2019 End: 09-11-2022 Tobacco smoking status NHIS Never smoked tobacco [facility] Start: 10-28-2019 End: 09-11-2022 Tobacco use and exposure Smokeless tobacco non-user [facility] Start: 10-28-2019 Alcohol intake Current drinker of alcohol (finding) [facility] Start: 10-28-2019 History SDOH Alcohol Frequency 2 [facility] Start: 10-28-2019 History SDOH Alcohol Comment rare wine [facility] Start: 10-28-2019 Education 17 [facility] Start: 1992 Sex Assigned At Not on file [facility] Start: 11-08-2022 End: 09-09-2023 Alcohol intake Ex-drinker (finding) [facility] Start: 10-28-2019 End: 10-20-2023 History of Social function [facility] Start: 10-28-2019 End: 10-20-2023 Alcohol Use Disorder Identification Test - Consumption [AUDIT-C] [facility] How often to you hav e a drink containing alcohol? Monthly or less [facility] Average Number of Drinks Not on file [facility] Start: 10-29-2019 Gender identity Identifies as female gender (finding) [facility] Start: 10-29-2019 Sexual orientation Heterosexual (finding) [facility] Start: 02-14-2023 Tobacco Comment Never [facility] Start: 02-14-2023 Alcohol Comment At most one or two drinks a month. [facility] Start: 04-22-2023 End: 10-20-2023 Alcohol intake Not Asked [facility] Start: 08-07-2022 Alcohol Comment Occasional alcohol use [facility] Start: 1990 Sex Assigned At Female [facility] Medical Equipment Procedure Code Equipment Code Equipment Origin al Text Equipment Identifier Dates Sentiva [id number] Start: 01-15-2023 Clinical Notes 07-04-2021 to 11-19-2023 Telephone Encounter - Namrata Tony - 11/19/2023 1:05 PM EDTTelephone Encounter - Namrata Tony - 11/19/2023 1:05 PM EDTTelephone Encounter - Helena Meza MA - 11/14/2023 10:01 AM EDT Note Date & Type Note Facility 11-19-2023 Telephone encounter Note Images from the original note were not included. Medication Access Team coordinated the following [facility]: MS/Neurology Prior Authorization Per the patient's insurance provider, [employer] [facility], the prior authorization for LAMOTRIGINE 300 (on-label) was approved. Authorization number: [id number] Authorization start date: 11/14/23 Authorization end date: 11/12/24 Non-Specialty Prescriptions: 1, 20-25 min Namrata Tony [facility] 11-19-2023 Miscellaneous Notes Images from the original note were not included. Medication Access Team coordinated the following [facility]: MS/Neurology Prior Authorization Per the patient's insurance provider, [employer] [facility], the prior authorization for LAMOTRIGINE 300 (on-label) was approved. Authorization number: [id number] Authorization start date: 11/14/23 Authorization end date: 11/12/24 Non-Specialty Prescriptions: 1, 20-25 min Namrata Tony documented in this encounter [facility] 11-14-2023 Telephone encounter Note Images from the original note were not included. *Documentation only- I did not speak with the patient. Received fax from [employer] stating PA is needed for Lamotrigine ER 300 mg tablets. Current auth expires 11/25/2023. [facility] 11-14-2023 Miscellaneous Notes Images from the original note were not included. *Documentation only- I did not speak with the patient. Received fax from [employer] stating PA is needed for Lamotrigine ER 300 mg tablets. Current auth expires 11/25/2023. documented in this encounter [facility] 08-21-2023 History of Present illness Narrative Reason [...] 24 hours. 2 Each 0 Prenat MV-Min w/Hp-Ljexxx-XMV ( COMPLETE PO) Take 1 tablet by [...] AW Model ID Sentiva N1000 Serial # [id number] Implanted 03/27/2018 Communication Output Current Status Current [...] of questions or concerns. Cori Hernández DO Senior Asic Design Engineer Department of Neurology, Epilepsy Division [facility] documented in this encounter [facility] 08-21-2023 Instructions Cori Meek DO - [...] you can call the Neurology clinic at [phone]. If you have access through [facility] [employer], you can contact me through that system as well. documented in this encounter [facility] 05-28-2023 History of Present illness Narrative Images from the original note were not included. Rowena Drake was seen in the [facility] at [facility] on 05/28/2023. She is here today for [...] 24 hours. 2 Each 0 Prenat MV-Min w/Ye-Wlqmli-OCM ( COMPLETE PO) Take 1 tablet by [...] your epilepsy that we offer at the [facility]? Yes If you have tried 2 or 3 anti-seizure medications and your seizures are still not controlled, are you interested in learning about surgical options for your epilepsy that we can offer at the [facility]? No Neurological Disorders Depression Inventory for [...] 01/15/2023 Model Number 1000 1000 Serial Number [id number] Output Current (mA) 2.5 mA 2.25 mA [...] and continue maintenance dose of clobazam - MT ELEC HORACE IMPLT SMPL CN NPGT [...] 45 tablet; Refill: 2 Encouraged use of [employer] to send messages to provider as needed for questions and concerns or can call our clinic @ [phone]. She will return in [address] Hernández or sooner if clinically indicated. Signed, Riana Chinchilla MSN, NURSING COORDINATOR-ARCHIVES DIRECTOR [facility] Department of Neurology - Epilepsy Division [address] [place] [address] - 7th floor [place] [address] Pager: [phone] I spent a total of 35 minutes on the date of the service which included preparing to see the patient, zhbj-ll-shlp patient care, completing clinical documentation, performing a medically appropriate examination and counseling and educating the patient/family/caregiver. Note to patient: The 21st Century Cures Act makes medical notes like these available to patients in the interest of transparency. However, be advised this is a medical document. It is intended as uxaz-xi-egxu communication. It is written in medical language and may contain abbreviations or verbiage that are unfamiliar. It may appear blunt or direct. Medical documents are intended to carry relevant information, facts as evident, and the clinical opinion of the practitioner. documented in this encounter [facility] 04-22-2023 History of Present illness Narrative [...] nursing note reviewed. Exam conducted with a drip molder present. Vitals: Estimated body mass index is [...] Donovan Burks DO documented in this encounter [facility] 02-14-2023 History of Present illness Narrative Images from the original note were not included. Rowena Byers was seen in the [facility] at [facility] on 02/14/2023. She is here today for [...] 24 hours. 2 Each 0 Prenat MV-Min w/Pa-Jbddko-EHX ( COMPLETE PO) Take 1 tablet by [...] ID ABW Model ID SenTiva Serial # [id number] Implanted 01/15/2023 Communication OK Output Current Status [...] VNS Simple Reprogramming (1-3 changes) CPT code 05461 Assessment and Plan Assessment: Rowena is a [...] longer than 5 minutes. Encouraged use of [employer] to send messages to provider as needed for questions and concerns or can call our clinic @ [phone]. She will return in 3 months with me and [address] Hernández or sooner if clinically indicated. Signed, Riana Chinchilla MSN, NOLBERTO-ARCHIVES DIRECTOR [facility] Department of Neurology - Epilepsy Division [address] - 7th floor [place] [address] Pager: [phone] I spent a total of 34 minutes on the date of the service which included preparing to see the patient, gdmf-tw-ggyn patient care, completing clinical documentation, performing a medically appropriate examination and counseling and educating the patient/family/caregiver. Note to patient: The Cures Act makes medical notes like these available to patients in the interest of transparency. However, be advised this is a medical document. It is intended as vjun-oj-zfxj communication. It is written in medical language and may contain abbreviations or verbiage that are unfamiliar. It may appear blunt or direct. Medical documents are intended to carry relevant information, facts as evident, and the clinical opinion of the practitioner. documented in this encounter [facility] 02-14-2023 Instructions JETHRO Juan - 02/14/2023 [...] after regular office hours, a neurologist is ethylbenzene converter helper for urgent issues. Call the neurology office number ([phone]) to reach the neurologist ethylbenzene converter helper if you are continuing to experience many more seizures than usual despite use of your rescue medications. Please try to remember that the neurologist ethylbenzene converter helper may not have access to your complete medical record and may not be as familiar with your history. If you have access through [employer], you can contact us through that system as well. If you have documents that need completed or sent to our clinic, please have them faxed to [phone]. It is always best to call during [...] the refill is ready for you to hop picker. Seizure First Aid Training Can Be Found Here (it's free!): [email or web address] nd documented in this encounter [facility] 01-15-2023 Miscellaneous Notes [facility] OPERATIVE REPORT PATIENT NAME: Rowena Byers PROCEDURE [...] The IPG had been interrogated by the leather goods sales representative from the vendor. The upper [...] the new IPG and secured with the electro mechanical assembler's screwdriver. At this point, a cnc machine programmer was used to interrogate the new [...] VSS, anesthesia sign out completed. 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 SURGEON Surgeon(s) and Role: * Evy Verma MD - Primary ANESTHESIOLOGIST Anesthesiologist: Cydney Zavala MD MANAGER STARS: Geraldo Marion APRN-MANAGER STARS Student Nurse Preschool Assistant Teacher: Chiquita Polanco SURGICAL STAFF Film Technician: Miki Gary RN; Linda Gilmore RN Relief Film Technician: Janet Carreon RN Scrub Person: Marielle Ibrahim Resident Assisting: Colt Meadows MD COMPLICATIONS None ESTIMATED BLOOD LOSS Minimal SPECIMENS No specimen sent * No specimens in log * Colt Meadows MD January 15, 2023 11:03 AM documented in this encounter [facility] 01-15-2023 Nurse Note Pt and family were given AVS and verbalize understanding of instructions. Pt discharged via wheelchair. [facility] 01-15-2023 Surgery Postoperative evaluation and management note [facility] REPORT PATIENT NAME: Rowena Byers PROCEDURE [...] The IPG had been interrogated by the leather goods sales representative from the vendor. The upper [...] the new IPG and secured with the electro mechanical assembler's screwdriver. At this point, a cnc machine programmer was used to interrogate the new [...] entire procedure and performed the critical portions. [facility] 01-15-2023 Nurse Note Report called to RN SPR, VSS, anesthesia sign out completed. 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 SURGEON Surgeon(s) and Role: * Evy Verma MD - Primary ANESTHESIOLOGIST Anesthesiologist: Cydney Zavala MD MANAGER STARS: Geraldo Marion APRN-MANAGER STARS Student Nurse Preschool Assistant Teacher: Chiquita Polanco SURGICAL STAFF Film Technician: Miki Gary RN; Linda Gilmore RN Relief Film Technician: Janet Carreon RN Scrub Person: Marielle Ibrahim Resident Assisting: Colt Meadows MD COMPLICATIONS None ESTIMATED BLOOD LOSS Minimal SPECIMENS No specimen sent * No specimens in log * Colt Meadows MD January 15, 2023 11:03 AM [facility] 01-15-2023 Nurse Surgical operation note Report given to AMERICAN SIGN LANGUAGE TEACHER. Patient transported to PACU with anesthesia on a cart and oxygen. [facility] 01-15-2023 Nurse Note Report given to AMERICAN SIGN LANGUAGE TEACHER. Patient transported to PACU with anesthesia on a cart and oxygen. documented in this encounter [facility] 01-15-2023 Hospital Discharge instructions Colt Meadows MD - 01/15/2023 9:30 AM EST Discharge Instructions for DBS Surgery & Battery Placement Surgery Here are some general guidelines to assist you in your recovery at home. Please do not hesitate to call us with any questions or concerns you may have. We can be reached at [phone]. Your appointmentS will be in the Neuromodulation clinic in [address] Incision Care: If you have a [...] 101 degrees F documented in this encounter [facility] 01-15-2023 History and physical note PERIOPERATIVE [...] by Evy Verma MD, 01/15/2023, 9:08 AM. [facility] Work Phone: 01-15-2023 History and physical [...] 01/15/2023, 9:08 AM. documented in this encounter [facility] 01-09-2023 History and physical note Images [...] 10 mg in 24 hours. Prenat MV-Min w/Yk-Ogpeoi-EAB ( COMPLETE PO) Take 1 tablet by [...] has been medically OPTIMIZED FOR SURGERY. 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 Prenat MV-Min w/Sp-Tavzup-MSZ ( COMPLETE PO) Take 1 tablet by [...] has been medically OPTIMIZED FOR SURGERY. [facility] Perioperative Clinic The [place] [address] [facility] Review of Systems (OSUROS)Review of Systems [...] PCP - General (Internal Medicine) Riana Chinchilla APRN-ARCHIVES DIRECTOR (Certified Nurse Practitioner) Family History Problem Relation Age of Onset Prostate Cancer Maternal Grandfather Mental Illness Maternal Grandmother Depression , Anxiety Prostate Cancer Paternal Grandfather Cancer- Other Paternal Grandfather Diabetes Paternal Uncle Social History Socioeconomic History Marital status: Highest education level: Bachelor's degree (e.g., BA, AB, BS) 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 Will check hCG today and on day of surgery. Patient understands that surgery may be cancelled if she is . Anesthesia Assessment:No contraindications to planned surgery. Pending review of the patient's labs.ECG reviewed. Whitney Ward MD [facility] Preoperative Assessment Center documented in this encounter [facility] 01-09-2023 Instructions Robyn Dempsey LPN - [...] take Herbal Medication (including multi-vitamin, fish oil (Gilbert-3), garlic, Glucosamine - Chondroitin ,gingko, ginseng, Vitamin [...] site one week prior to surgery. - [place] your teeth and rinse your mouth the morning of surgery. - Do NOT bring your dentures or partials with you into surgery. They may be lost. Give them to someone to bring to you after surgery. If you are unable to complete your scheduled testing or appointments made by [facility] please contact [facility] at [phone]. Failure to do so could delay or [...] surgery, please notify our team immediately at [phone]. - If you have Sleep apnea and have a CPAP or BIPAP, then bring your CPAP mask and machine with you to the hospital. Please contact Medical Information Management Department for all records requests. [phone] Puma/mateo documented in this encounter [facility] 12-10-2022 History of Present illness Narrative [...] that were dedicated to clinical evaluation, including ymur-uj-sjkm time; counseling and education; chart completion; reviewing [...] aspirin, excedrin, plavix), multivitamins/minerals/herbal supplements (such as Gilbert-3, garlic, Glucosamine - Chondroitin, gingko, ginseng, Vitamin E, fish oil, etc), non-steroidal anti-inflammatory medications (NSAIDs) (such as Ibuprofen/Motrin/Advil, Aleve, Celebrex) for 10 days prior to surgery, as these are blood thinners. She was advised that Tylenol is the preferred option for pain. She stated understanding. documented in this encounter [facility] 11-08-2022 History of Present illness Narrative Images from the original note were not included. Rowena Byers was seen in the [facility] at [facility] on 11/08/2022. She is here [...] ID AW Model ID SenTiva Serial # [id number] Implanted 03/27/2018 Communication OK Output Current Status [...] VNS Simple Reprogramming (1-3 changes) CPT code 48544 Assessment and Plan Assessment: Rowena is a [...] would like to wait Encouraged use of [employer] to send messages to provider as needed for questions and concerns or can call our clinic @ [phone]. She will return in 2 months or sooner if clinically indicated. Signed, Riana Chinchilla MSN, NURSING COORDINATOR-ARCHIVES DIRECTOR [facility] Department of Neurology - Epilepsy Division [address] [place] [address] - 7th floor [place] [phone] Pager: [phone] I spent a total of 46 minutes on the date of the service which included preparing to see the patient, qtpd-sq-mmbp patient care, completing clinical documentation, performing a medically appropriate examination and counseling and educating the patient/family/caregiver. Note to patient: The Cures Act makes medical notes like these available to patients in the interest of transparency. However, be advised this is a medical document. It is intended as hwug-ff-bwjy communication. It is written in medical language and may contain abbreviations or verbiage that are unfamiliar. It may appear blunt or direct. Medical documents are intended to carry relevant information, facts as evident, and the clinical opinion of the practitioner. documented in this encounter [facility] 11-08-2022 Instructions JETHRO Juan - 11/08/2022 [...] ID AW Model ID SenTiva Serial # [id number] Implanted 03/27/2018 Communication OK Output Current Status OK Current Delivered 1.75 Lead Impedance OK Impedance Value 2903 IFI NO Average # of Inhibited Auto stimulations Daily Avg. Stim % Per Day %Therapy Normal 843.56 AutoStim 26.89 Magnet 0.04 Total 870.50 documented in this encounter [facility] 07-04-2021 Instructions JETHRO Juan - 07/04/2021 [...] weeks with Riana documented in this encounter [facility] 07-04-2021 History of Present illness Narrative Images from the original note were not included. Rowena Byers was seen in the [facility] at [facility] on 07/04/2021. 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 Encouraged use of [employer] to send messages to provider as needed for questions and concerns or can call our clinic @ [phone]. She will return in 6 weeks and 3 months with me and [address] Hernández or sooner if clinically indicated. Signed, Riana Chinchilla MSN, NURSING COORDINATOR-ARCHIVES DIRECTOR [facility] Department of Neurology - Epilepsy Division [address] [place] [address] - 7th floor [place], [place] [address] Pager: [phone] Time to complete visit: I spent approximately 38 minutes reviewing the chart prior to the appointment, in face to face counseling with the patient, and with documentation after the visit. documented in this encounter 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 Diagnosis Jeavons syndrome- Primary [facility] Diagnosis Jeavons syndrome- Primary [facility] Diagnosis Jeavons syndrome Jeavons syndrome [facility] Diagnosis Preop exam for internal medicine- Primary Other specified pre-operative examination 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 Other postprocedural status Jeavons syndrome [facility] 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 Other postprocedural status [facility] Diagnosis Encounter for fertility planning documented in this encounter [facility] HealthcareEvaluation note* Diagnosis Jeavons syndrome- Primary Anxiety disorder, unspecified type [facility] Diagnosis Onset Date Resolution Status Maxillary sinusitis [facility] Work Phone: Evaluation note* Diagnosis Jeavons syndrome- Primary Anxiety disorder, unspecified type [facility] Diagnosis Onset Date Resolution Status Maxillary sinusitis acute Maxillary sinusitis [facility] Work Phone: Reason for referral (narrative)* Consultation (Routine) - New Request Specialty Diagnoses / Procedures Referred By Rainer ramos Referred To Contact Neurologic Surgery Diagnoses Jeavons syndrome Evy Verma MD [address] [place] [phone] Referral ID Status Reason Start Date Expiration Date V isits Requested Visits Authorized [id number] New Request 12/10/2022 01/04/2024 1 1 [facility] Summary Purpose Family History Relationship Condition Age at Onset Recorded Date/T jorge grandparent Malignant neoplasm Unknown Advance Directives Advance Directive Response Recorded Date/ Time Advance Directives No July 06, 2 024 12:12pm Reason for Referral Specialty Diagnoses / Procedures Referred By Contac richard Referred To Contact Diagnoses Generalized nonconvulsive epilepsy Riana Chinchilla, NURSING COORDINATOR-ARCHIVES DIRECTOR [address] [place] [address] Referral ID Status Reason Start Date Expiration Date V isits Requested Visits Authorized [id number] Pending Review 1 1 Specialty Diagnoses / Procedures Referred By Contharjinder ramos Referred To Contact Procedures DVT/VTE RISK ASSESSMENT Evy Verma MD [address] [place] [address] Referral ID Status Reason Start Date Expiration Date V isits Requested Visits Authorized [id number] New Request 01/15/2023 02/09/2024 1 1 Chief Complaint and Reason for Visit Chief Complaint sinus infection Reason for Visit Maxillary sinusitis Chief Complaint sinus infection sinus infection Reason for Visit Maxillary sinusitis Maxillary sinusitis Additional Source Comments INFORMATION SOURCE (unrecogn ized section and content) DATE CREATED AUTHOR 09/03/2017 [facility] DATE CREATED AUTHOR AUTHOR'S ORGANIZ ATION 03/28/2018 [facility] DATE CREATED AUTHOR AUTHOR'S ORGANIZ ATION 07/02/2018 [facility] DATE CREATED AUTHOR AUTHOR'S ORGANIZ ATION 10/02/2019 [facility] DATE CREATED AUTHOR AUTHOR'S ORGANIZ ATION 06/01/2022 [facility] DATE CREATED AUTHOR AUTHOR'S ORGANIZ ATION 04/24/2023 [facility] DATE CREATED AUTHOR AUTHOR'S ORGANIZ ATION 08/23/2023 [facility] DATE CREATED AUTHOR AUTHOR'S ORGANIZ ATION 10/21/2023 [facility] EPIC Reason for Visit (unrecogniz ed section and content) Reason Comments Follow-up Reason Comments Follow-up Reason Comments New Patient 32 y.o female here f or consult. Specialty Diagnoses / Procedures Referred By Contac t Referred To Contact Neurologic Surgery Diagnoses Jeavons syndrome S/P placement of VNS (vagus nerve stimulation) device Riana Chinchilla APRN-ARCHIVES DIRECTOR [address] [place] [phone] Referral ID Status Reason Start Date Expiration Date V isits Requested Visits Authorized [id number] New Request 09/19/2022 10/14/2023 1 1 Reason Comments Preoperative Assessment Specialty Diagnoses / Procedures Referred By Contac t Referred To Contact Neurologic Surgery Diagnoses Jeavons syndrome Evy Verma MD [address] [place] [phone] Referral ID Status Reason Start Date Expiration Date V isits Requested Visits Authorized [id number] New Request 12/10/2022 01/04/2024 1 1 Specialty Diagnoses / Procedures Referred By Contac t 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] Procedures MT IMP STIM,CRANIAL,SUBQ,1 ARRAY INSERTION REPLACEMENT NEUROSTIMULATOR GENERATOR CRANIAL/INTRACRANIAL Evy Verma MD [address] [place] [phone] [facility] [address] [place] [address] Referral ID Status Reason Start Date Expiration Date Visits Re quested Visits Authorized [id number] 1 1 Reason Comments Infertility Reason Onset Date Comments Insurance 11/14/2023 Lamotrigine ER Reason Onset Date Comments Insurance 11/19/2023 Care Teams (unrecognized sec tion and content) Staff Midwife Relationship Specialty Start Date End Date Tim Rolon DO [address] [place] [address] PCP - General Internal Medicine 09/19/22 Riana Chinchilla, NURSING COORDINATOR-ARCHIVES DIRECTOR [address] [place] [phone] Certified Nurse Practitioner 11/08/22 Staff Midwife Relationship Specialty Start Date End Date Tim Rolon DO [address] [place] [address] PCP - General Internal Medicine 09/19/22 Riana Chinchilla, NURSING COORDINATOR-ARCHIVES DIRECTOR [address] [place] [phone] Certified Nurse Practitioner 11/08/22 Staff Midwife Relationship Specialty Start Date End Date Tim Rolon DO [facility] [place] [address] PCP - General Internal Medicine 09/19/22 Riana Chinchilla, NURSING COORDINATOR-ARCHIVES DIRECTOR [address] [place], [place] [phone] Certified Nurse Practitioner 11/08/22 Staff Midwife Relationship Specialty Start Date End Date Tim Rolon DO [facility] [place] [address] PCP - General Internal Medicine 09/19/22 Riana Chinchilla, NURSING COORDINATOR-ARCHIVES DIRECTOR [address] [place], [place] [phone] Certified Nurse Practitioner 11/08/22 Staff Midwife Relationship Specialty Start Date End Date Tim Rolon DO [address] [place] [address] PCP - General Internal Medicine 09/19/22 Riana Chinchilla, NURSING COORDINATOR-ARCHIVES DIRECTOR [address] [place] [phone] Certified Nurse Practitioner 11/08/22 Staff Midwife Relationship Specialty Start Date End Date Tim Rolon DO [address] [facility] [phone] PCP - General Internal Medicine 09/19/22 Riana Chinchilla NURSING COORDINATOR-ARCHIVES DIRECTOR [address] [facility] [address] [place] [phone] Certified Nurse Practitioner 11/08/22 Staff Midwife Relationship Specialty Start Date End Date Tim Rolon MD [address] [place] [phone] PCP - General Internal Medicine 08/08/22 Staff Midwife Relationship Specialty Start Date End Date Tim Rolon DO [address] [facility] [place] [phone] PCP - General Internal Medicine 09/19/22 Riana Chinchilla APRN-ARCHIVES DIRECTOR [address] [place] [phone] Certified Nurse Practitioner 11/08/22 Team Status: Active Member Role Status Dates Tim Rolon DO Primary Care Provider Active Team Status: Active Member Role Status Dates iTm Rolon DO Primary Care Provide r, Attending [...] End: July 07, 2023 Kristine Oneill APRN FEED IN WORKER-C Attending Provider Act duncan Start: July 07, 2023 End: July 07, 2023 Staff Midwife Relationship Specialty Start Date End Date Tim Rolon DO [address] [place] [phone] PCP - General Internal Medicine 09/19/22 Riana Chinchilla APRN-ARCHIVES DIRECTOR [address] [place] [phone] Certified Nurse Practitioner 11/08/22 Team Status: Active [...] End: September 24, 2023 Kristine Oneill APRN FEED IN WORKER-C Attending Provider Act duncan Start: September 24, 2023 End: September 24, 2023 Staff Midwife Relationship Specialty Start Date End Date Tim Rolon DO [address] [place] [phone] PCP - General Internal Medicine 09/19/22 Riana Chinchilla NURSING COORDINATOR-ARCHIVES DIRECTOR [address] [place] [phone] Certified Nurse Practitioner 11/08/22 Staff Midwife Relationship Specialty Start Date End Date Tim Rolon MD [address] [place] [phone] PCP - General Internal Medicine 08/08/22 Scheduled [...] - Comment: mixed 1:1 w/Lido with epi [id number]) ceFAZolin (ANCEF) 2 g in dextrose 100 mL premix IVPB (COMPLETED) 2 g, Intravenous, Administer over 30 Minutes, TIPPLE TENDER TO PROCEDURE, 1 dose, Starting on Fri01/15/23 at 0758, Until Discontinued, Other, Surgical Prophylaxis, Initiate antibiotic administration 30-60 minutes prior to surgical incision and complete administration prior to surgical incision., Pre-op/Pre-Proc 0955 (Given - Provid er: Geraldo Marion, NURSING COORDINATOR-MANAGER STARS) lidocaine-epinephrine 2 %-1:[id number] injection (CANCELED) NEEDED, Starting on Fri01/15/23 at [...] Order-specific weight), Intravenous, Administer over 1 Hours, TIPPLE TENDER TO PROCEDURE, 1 dose, Starting on Fri01/15/23 [...] BE BASED ON THE PRIMARY CLINICAL RECORDS. [employer] provides no warranty or guarantee of the accuracy or completeness of information in this document.
[2024-01-17 08:13] LABS: Progesterone 25.4 ng/mL (.)
== END 2024-01-16 13:01 | disposition home or self-care (01) ==
LOC: LAB 13:00
PROVIDERS: PCP Internal Medicine; Visit Provider Obstetrics & Gynecology
DX: N97.0 Female infertility associated with anovulation (principal)
CPT/HCPCS: 36415; 84144

== ENCOUNTER 2024-02-18 10:51 | Outpatient (OUT) | payer OTHER, SELFPAY ==
--- OUTSIDE RECORDS SUMMARY | 2024-02-18 11:13 | XMS_ITS | CCD ---
Author Organization [facility] CliniSyma Care Team Providers Care Character Impersonator Name Role Phone JAMIL SMITH Referring Unavailable [...] Unavailable Tim Rolon DO Primary Care Provider [phone] Raoul SUPERVISOR WET ROOM-Riana LALA Unavailable Tim Rolon MD Primary Care [...] Care Unavailable CORI HERNÁNDEZ Attending Unavailable Raoul SUPERVISOR WET ROOM-TUMBLER DYEING MACHINE OPERATOR, Riana Gordillo Unavailable DONOVAN BURKS Attending Unavailable MADONNA PARSONS Attending Unavailable DONOVAN BURKS Attending Unavailable Allergies Allergy Classification Reported Allergen(s) Allergy Type Date of Onset Reaction(s) Facility (11 sources) Seasonal allergy Propensity to adverse reactions to drug 7 Runny Nose, Congestion [facility] Work Phone: (4 sources) Pollen Propensity to adverse reactions 7 Runny nose [facility] (4 sources) Other Propensity to adverse reactions 2 Runny nose [facility] Medications Current Medications Medication Drug Class(es) Dates [...] mg / cholecalciferol 500 unt oral capsule (4 sources) Vitamin D Start: 2023 Calcium Carb-Cholecalciferol 600-12.5 MG-MCG capsule 07/07/2023 Active cloBAZam 20 mg oral tablet (18 sources) Benzodiazepine Start: 2022 End: 2024 take [...] 2023 12:00am escitalopram 20 mg oral tablet (3 sources) Serotonin Reuptake Inhibitor Start: 04-30-2021 take 1 tablet by mouth once daily at dinner escitalopram 20 MG tablet Indications: Seizure disorder Take 1 tablet by mouth Daily (with dinner). 30 tablet 11 04/30/2021 Active folic acid 1 mg oral tablet (17 sources) Start: 07-07-2023 take 1 mg by [...] lamoTRIgine 50 mg extended release oral tablet (20 sources) Mood Stabil izer, Anti-e pilept ic [...] 08/21/2023 Discontinued loratadine 10 mg oral tablet (13 sources) take 1 tablet by mouth every twenty-four hours as needed loratadine (Claritin) 10 MG tablet Take 10 mg by mouth Daily as needed Active 12 hr loratadine 5 mg / pseudoephedrine sulfate 120 mg extended release oral tablet (4 sources) alpha-Adrenergic Agonist take 1 tablet by mouth once in the morning, then take 1 tablet by mouth every twelve hours at bedtime loratadine-pseudo ephedrine ER (Claritin-D 12-hour) 5-120 MG 12 hr tablet Take 1 tablet by mouth in the morning and 1 tablet before bedtime. Do not crush, chew, or split. . Active LORazepam 0.5 mg oral tablet (13 sources) Benzodiazepine Start: take 0.5 mg by [...] Indications: Difficulty falling asleep at night until customer services coordinator hours TAKE 1 TABLET BY MOUTH EVERYDAY AT BEDTIME 90 tablet 2 03/22/2022 02/14/2023 Discontinued Melatonin 5 MG C hew Tab Chew 1 tablet at bedtime as needed. Active metFORMIN hydrochloride 500 mg oral tablet (16 sources) Biguanide Start: 07-07-2023 take 500 mg [...] Vitamins-Minerals ( CULTURELLE PROBIOTICS + MULTIV PO) (4 sources) Multiple Vitamin s-Minerals (CULTURELLE PROBIOTICS + MULTIV PO) Take by mouth Active Multiple Vitamin s-Minerals (CULTURELLE PROBIOTICS + MULTIV PO) Take by mouth 0 Active Prenat MV-Min w/Nw-Uhhyvv-EZ A ( COMPLETE PO) (8 sources) take 1 tablet by josh th once at bedtime Prenat MV-Min w/Cq-Mkhvlb-BYT ( COMPLETE PO) Take 1 tablet by mouth at bedtime. Active take 1 tablet by mouth once at b edtime Prenat MV-Min w/Qf-Sriono-CAQ ( COMPLETE PO) Take 1 tablet by mouth at bedtime. 0 Active MV-Min-Fe Fum-FA-DH A ( 1 PO) (4 sources) MV-Min- Fe Fum-FA-DHA ( 1 PO) [...] SYNDROME] Onset: 05-23-2022 Chronic Other endocrine disorders (4 sources) Polycystic ovary syndrome; Translations: [Polycystic ovarian [...] Reference Range Facility ALL PROGESTERONEon 4 PROGESTERONE 25.4 ng/mL . [facility] Comment on above: Follicular phase 0.1 - 0.9 Luteal phase 1.8 - 23.9 Ovulation phase 0.1 - 12.0 First trimester 11.0 - 44.3 Second trimester 25.4 - 83.3 Third trimester 58.7 - 214.0 Postmenopausal 0.0 - 0.1 Performed at: [facility] [address] [id number] Lcac Operator: Ino Dougherty PhD, Phone: [phone] [facility] PROGESTERONEon 10-08-202 4 PROGESTERONE 19.7 ng/mL . [facility] Comment on above: Follicular phase 0.1 - 0.9 Luteal phase 1.8 - 23.9 Ovulation phase 0.1 - 12.0 First trimester 11.0 - 44.3 Second trimester 25.4 - 83.3 Third trimester 58.7 - 214.0 Postmenopausal 0.0 - 0.1 Performed at: [facility] [address] [place], [place] [id number] Lcac Operator: Ino Dougherty PhD, Phone: [phone] [facility] Serum or plasma progesterone measurement (mass/volume)on 09-11-2023 Progesterone [Mass/Vol] 12.9 ng/mL . [facility] Comment on above: Follicular phase 0.1 - 0.9 Luteal phase 1.8 - 23.9 Ovulation phase 0.1 - 12.0 First trimester 11.0 - 44.3 Second trimester 25.4 - 83.3 Third trimester 58.7 - 214.0 Postmenopausal 0.0 - 0.1Performed at: [facility] [place], [place] [id number] Director: Ino Dougherty PhD, Phone: [phone] Serum or plasma progesterone measurement (mass/volume)on 08-08-2023 Progesterone [Mass/Vol] 11.3 ng/mL . [facility] Comment on above: Follicular phase 0.1 - 0.9 Luteal phase 1.8 - 23.9 Ovulation phase 0.1 - 12.0 First trimester 11.0 - 44.3 Second trimester 25.4 - 83.3 Third trimester 58.7 - 214.0 Postmenopausal 0.0 - 0.1Performed at: [facility] [place], [place] [id number] Director: Ino Dougherty PhD, Phone: [phone] Serum or plasma progesterone measurement (mass/volume)on 07-09-2023 Progesterone [Mass/Vol] 16.6 ng/mL . [facility] Comment on above: Follicular phase 0.1 - 0.9 Luteal phase 1.8 - 23.9 Ovulation phase 0.1 - 12.0 First trimester 11.0 - 44.3 Second trimester 25.4 - 83.3 Third trimester 58.7 - 214.0 Postmenopausal 0.0 - 0.1Performed at: [facility] [address] [place], [place] [id number] Director: Ino Dougherty PhD, Phone: [phone] No Panel Informationon 06-26 Human Chorionic Gonadotropin, Quant <1 mIU/mL [facility] Comment on above: 5-50 0.2-1 [id number] 0 1-2 PYUDE156-0,000 2-3 MHDBN768-02,000 3-4 WEEKS1,000-50,000 4-5 WEEKS10,000-100,000 5-6 WEEKS15,000-200,000 6-8 WEEKS10,000-100,000 2-3 MONTHS Serum or plasma progesterone measurement (mass/volume)on 06-08-2023 Progesterone [Mass/Vol] 20.7 ng/mL . F [facility] Comment on above: Follicular phase 0.1 - 0.9 Luteal phase 1.8 - 23.9 Ovulation phase 0.1 - 12.0 First trimester 11.0 - 44.3 Second trimester 25.4 - 83.3 Third trimester 58.7 - 214.0 Postmenopausal 0.0 - 0.1Performed at: [facility] [place], [place] [id number] Director: Ino Dougherty PhD, Phone: [phone] Laboratory - Chemistry and C hemistry - challengeon 05-09-2023 Free T4 [Mass/Vol] 0.77 ng/dL 0.76-1.46 [facility] No Panel Informationon 05-08 Free Triiodothyronine 2.78 pg/mL 2.18-3.98 [facility] Serum or plasma progesterone measurement (mass/volume)on 05-09-2023 Progesterone [Mass/Vol] 19.3 ng/mL . [facility] Comment on above: Follicular phase 0.1 - 0.9 Luteal phase 1.8 - 23.9 Ovulation phase 0.1 - 12.0 First trimester 11.0 - 44.3 Second trimester 25.4 - 83.3 Third trimester 58.7 - 214.0 Postmenopausal 0.0 - 0.1Performed at: [id number] [place], [place] [id number] Director: Ino Dougherty PhD, Phone: [phone] BETA HCG, URINE (POC DEVICE) on 01-15-2023 Beta HCG ( test) Ql (U) Negative Negative [facility] Interpretation and review of laboratory results Normal [facility] Test performed at address of the patient encounter. [facility] CARDIAC RHYTHM (SCANNED)on 03-17-2022 [facility] CBC AND ELECTRONIC DIFFon Basophils (Bld) [#/Vol] 0.05 10*3/uL 0.00 - 0.15 K/uL [facility] Basophils/100 WBC (Bld) 0.5 % [facility] Differential cell count method Nom (Bld) Electronic Differential [facility] Eosinophils (Bld) [#/Vol] 0.12 10*3/uL 0. 00 - 0.42 K/uL [facility] Eosinophils/100 WBC (Bld) 1.2 % [facility] Erythrocyte distribution width (RBC) [Ratio] 13.1 % 10.8 - 14.9 % [facility] Hematocrit (Bld) [Volume fraction] 42.5 % 34.9 - 44.3 % [facility] Hemoglobin (Bld) [Mass/Vol] 14.3 g/dL 11.4 - 15.2 g/dL [facility] Immature granulocytes (Bld) [#/Vol] K/uL NINF - 0.08 K/uL [facility] Immature granulocytes/100 WBC (Bld) 0.3 % [facility] Lymphocytes (Bld) [#/Vol] 3.42 10*3/uL 1. 16 - 3.51 K/uL [facility] Lymphocytes/100 WBC (Bld) 32.9 % [facility] MCH (RBC) [Entitic mass] 31.1 pg 25. 9 - 33.9 pg [facility] MCHC (RBC) [Mass/Vol] 33.6 g/dL 31.4 - 35.9 g/dL [facility] MCV (RBC) [Entitic vol] 92.4 fL 79.6 - 97.7 fL [facility] Monocytes (Bld) [#/Vol] 0.62 10*3/uL 0.22 - 0.87 K/uL [facility] Monocytes/100 WBC (Bld) 6.0 % [facility] Neutrophils (Bld) [#/Vol] 6.14 10*3/uL 1. 64 - 7.28 K/uL [facility] Nucleated RBC/100 WBC (Bld) [Ratio] 0.0 % NINF [facility] Platelet mean volume (Bld) [Entitic vol] 10.8 fL 8.5 - 12.2 fL [facility] Platelets (Bld) [#/Vol] 326 10*3/uL 150 - 393 K/uL [facility] RBC (Bld) [#/Vol] 4.60 10*6/uL [facility] Segmented neutrophils/100 WBC (Bld) 59.1 % [facility] WBC (Bld) [#/Vol] 10.38 10*3/uL 3.99 - 11 .19 K/uL [facility] Basophils (Bld) [#/Vol] 0.05 10*3/uL Normal 0.00-0.15 [facility] Comment on above: Performed By: #### L [id number] #### [facility] (DEFAULT) [address] [place] [address] Basophils/100 WBC (Bld) 0.5 % Normal O [facility] Comment on above: Performed By: #### L [id number] #### [facility] (DEFAULT) [address] [place] [address] DIFF STATUS Electronic Differential Normal [facility] Comment on above: Performed By: #### L [id number] #### [facility] (DEFAULT) [address] [place] [address] Eosinophils (Bld) [#/Vol] 0.12 10*3/uL Normal 0.00-0.4 2 [facility] Comment on above: Performed By: #### L [id number] #### [facility] (DEFAULT) [address] [address] Eosinophils/100 WBC (Bld) 1.2 % Normal [facility] Comment on above: Performed By: #### L [id number] #### [facility] (DEFAULT) [address] [address] Hematocrit (Bld) [Volume fraction] 42.5 % Normal 34.9-44.3 [facility] Comment on above: Performed By: #### L [id number] #### [facility] (DEFAULT) [address] [address] Hemoglobin (Bld) [Mass/Vol] 14.3 g/dL Normal 11.4-15.2 [facility] Comment on above: Performed By: #### L [id number] #### [facility] (DEFAULT) [address] [address] Immature Grans % 0.3 % Normal [facility] Comment on above: Performed By: #### L [id number] #### [facility] (DEFAULT) [address] [address] Immature Grans Absolute < Normal <=0.08 O [facility] Comment on above: Performed By: #### L [id number] #### [facility] (DEFAULT) [address] [place] [address] Lymphocytes (Bld) [#/Vol] 3.42 10*3/uL Normal 1.16-3.5 1 [facility] Comment on above: Performed By: #### L [id number] #### [facility] (DEFAULT) [address] [address] Lymphocytes/100 WBC (Bld) 32.9 % Normal [facility] Comment on above: Performed By: #### L [id number] #### [facility] (DEFAULT) [address] [place] [address] MCV (RBC) [Entitic vol] 92.4 fL Normal 79.6-97.7 O [facility] Comment on above: Performed By: #### L [id number] #### [facility] (DEFAULT) [address] [place] [address] Mean Cell Hgb 31.1 pg Normal 25.9-33.9 [facility] Comment on above: Performed By: #### L [id number] #### [facility] (DEFAULT) [address] [place] [address] Mean Cell Hgb Conc 33.6 g/dL Normal 31.4-35.9 [facility] Comment on above: Performed By: #### L [id number] #### [facility] (DEFAULT) [address] [place] [address] Monocytes (Bld) [#/Vol] 0.62 10*3/uL Normal 0.22-0.87 [facility] Comment on above: Performed By: #### L [id number] #### [facility] (DEFAULT) [address] [address] Monocytes/100 WBC (Bld) 6.0 % Normal [facility] Comment on above: Performed By: #### L [id number] #### [facility] (DEFAULT) [address] [place] [address] Nucleated RBC 0.0 /100 WBC Normal <=0.2 [facility] Comment on above: Performed By: #### L [id number] #### [facility] (DEFAULT) [address] [place] [address] Platelet mean volume (Bld) [Entitic vol] 10.8 fL Normal 8.5-12.2 [facility] Comment on above: Performed By: #### L [id number] #### [facility] (DEFAULT) [address] [place] [address] Platelets (Bld) [#/Vol] 326 10*3/uL Normal 150-393 [facility] Comment on above: Performed By: #### L [id number] #### [facility] (DEFAULT) [address] [address] RBC (Bld) [#/Vol] 4.60 10*6/uL Normal 3.91-5.04 [facility] Comment on above: Performed By: #### L [id number] #### [facility] (DEFAULT) [address] [address] RBC Distribution 13.1 % Normal 10.8-14.9 [facility] Comment on above: Performed By: #### L [id number] #### [facility] (DEFAULT) [address] [address] Segs + Bands Auto 59.1 % Normal [facility] Comment on above: Performed By: #### L [id number] #### [facility] (DEFAULT) [address] [address] Segs + Bands,Absolute Auto 6.14 K/uL Normal 1.64-7.28 [facility] Comment on above: Performed By: #### L [id number] #### [facility] (DEFAULT) [address] [address] WBC (Bld) [#/Vol] 10.38 10*3/uL Normal 3.99-11.19 [facility] Comment on above: Performed By: #### L [id number] #### [facility] (DEFAULT) [address] [address] CMPN WITHOUT GLUCOSEon 01-09 Albumin [Mass/Vol] 4.9 g/dL Normal 3.5-5.0 [facility] Comment on above: Performed By: #### C MPNG #### [facility] (DEFAULT) [address] [address] ALP [Catalytic activity/Vol] 35 U/L Normal 32-126 [facility] Comment on above: Performed By: #### C MPNG #### [facility] (DEFAULT) [address] [place] [address] ALT [Catalytic activity/Vol] 19 U/L Normal 9-48 [facility] Comment on above: Performed By: #### C MPNG #### [facility] (DEFAULT) [address] [place] [address] Anion gap [Moles/Vol] 13 mmol/L Normal 7-17 [facility] Comment on above: Performed By: #### C MPNG #### [facility] (DEFAULT) [address] [place] [address] AST [Catalytic activity/Vol] 18 U/L Normal 10-39 [facility] Comment on above: Performed By: #### C MPNG #### [facility] (DEFAULT) [address] [place] [address] Bilirubin [Mass/Vol] 0.3 mg/dL Normal <1.5 [facility] Comment on above: Performed By: #### C MPNG #### [facility] (DEFAULT) [address] [place] [address] Calcium [Mass/Vol] 9.2 mg/dL Normal 8.6-10.5 [facility] Comment on above: Performed By: #### C MPNG #### [facility] (DEFAULT) [address] [place] [address] Chloride [Moles/Vol] 102 mmol/L Normal 98-108 [facility] Comment on above: Performed By: #### C MPNG #### [facility] (DEFAULT) [address] [place] [address] CO2 [Moles/Vol] 26 mmol/L Normal 21-31 [facility] Comment on above: Performed By: #### C MPNG #### [facility] (DEFAULT) [address] [place] [address] Creatinine [Mass/Vol] 0.64 mg/dL Normal 0.50-1.20 [facility] Comment on above: Performed By: #### C MPNG #### [facility] (DEFAULT) [address] [place] [address] eGFR, CKD-EPI, Female > Normal >=60 [facility] Comment on above: Result Comment: Repo rted eGFR is based on the CKD-EPI 2020 equation using creatinine, age, and sex. Performed By: #### C MPNG #### [facility] (DEFAULT) [address] [place] [address] Potassium [Moles/Vol] 4.0 mmol/L Normal 3.5-5.0 [facility] Comment on above: Performed By: #### C MPNG #### [facility] (DEFAULT) [address] [place] [address] Protein [Mass/Vol] 7.9 g/dL Normal 6.4-8.3 [facility] Comment on above: Performed By: #### C MPNG #### [facility] (DEFAULT) [address] [place] [address] Sodium [Moles/Vol] 137 mmol/L Normal 135-145 [facility] Comment on above: Performed By: #### C MPNG #### [facility] (DEFAULT) [address] [place] [address] Urea nitrogen [Mass/Vol] 12 mg/dL Normal 7-25 [facility] Comment on above: Performed By: #### C MPNG #### [facility] (DEFAULT) [address] [place] [address] Urea nitrogen/Creatinine [Mass ratio] 19 mg/mg Normal [facility] Comment on above: Performed By: #### C MPNG #### [facility] (DEFAULT) [address] [place] [address] HCG ( test) Ql (U)O rdered By: Jamil Santos on 01-09-2023 Beta HCG ( test) Ql Negative Negative [facility] Interpretation and review of laboratory results [facility] HCG QUALITATIVE, URINEon Beta HCG ( test) Ql (U) Negative Normal Negative [facility] Comment on above: Performed By: #### U HCG #### [facility] (DEFAULT) [address] [address] LAMOTRIGINE LEVELon 01-10-20 23 Lamotrigine, S 4.3 mcg/mL Normal 3.0-15.0 [facility] Comment on above: Result Comment: ADDITIONAL INFORMATION This test was developed and its performance characteristics determined by [facility] in a manner consistent with CLIA requirements. This test has not been cleared or approved by the U.S. Food and Drug Administration. Test Performed by: [facility] [place] [address] Lcac Operator: Juno Vega M.D. Ph.D.; CLIA# [id number] Performed By: #### Y LAMO #### [facility] (DEFAULT) [address] [place] [address] PT,INR,PTTon 01-09-2023 aPTT Coag (PPP) [Time] 31.1 s OS [facility] INR Coag (Bld) [Relative time] 1.0 {INR} 0.9 - 1.1 [facility] Interpretation and review of laboratory results Normal [facility] PT Coag (PPP) [Time] 13.0 s [facility] aPTT Coag (Bld) [Time] 31.1 s Normal 24.0-34.3 [facility] Comment on above: Performed By: #### P TPTT #### [facility] (DEFAULT) [address] [address] INR Coag (PPP) [Relative time] 1.0 {INR} Normal 0.9-1.1 [facility] Comment on above: Performed By: #### P TPTT #### [facility] (DEFAULT) [address] [address] PT Coag (PPP) [Time] 13.0 s Normal 11.9-14.2 [facility] Comment on above: Performed By: #### P TPTT #### [facility] (DEFAULT) [address] [place] [address] SCREEN: MRSA/MSSAOrdered By: Alexandra Slater on 01-09-2023 Interpretation and review of laboratory results Abnormal [facility] Methicillin Resistant S. Aureus By Pcr Negative Negative [facility] Staphylococcus Aureus By Pcr Positive Abnormal Negative [facility] This test was performed using a real [...] by the [facility] at [facility]. It has not been cleared or approved by the FDA.The laboratory is regulated under CLIA as qualified to perform high-complexity testing. This test is used for clinical purposes. It should not be regarded as investigational or for research. [facility] SCREEN: MRSA/MSSAon 01-10-20 Methicillin Resistant S. Aureus By Pcr Negative Normal Negative [facility] Comment on above: Order Comment: This test [...] by the [facility]. It has not been cleared or approved by the FDA.The laboratory is regulated under CLIA as qualified to perform high-complexity testing. This test is used for clinical purposes. It should not be regarded as investigational or for research. Performed By: #### S CRSB #### [facility] (DEFAULT) [address] [address] Staphylococcus Aureus By Pcr Positive Abnormal Negative [facility] Comment on above: Order Comment: This test [...] by the [facility]. It has not been cleared or approved by the FDA.The laboratory is regulated under CLIA as qualified to perform high-complexity testing. This test is used for clinical purposes. It should not be regarded as investigational or for research. Performed By: #### S CRSB #### [facility] (DEFAULT) [address] [address] VITAMIN D (25-HYDROXY,TOTAL) on 01-09-2023 25-OH Vitamin D Total 35.2 ng/mL Normal 30.0-100.0 [place] [facility] Comment on above: Order Comment: Vitam in D values have been shown to be falsely decreased in lipemic samples and should be interpreted with caution. Result Comment: <10 Deficiency 10-29 Insufficiency 30-100 Optimal Level >100 Possible Toxicity Performed By: #### D 25OH #### [facility] (DEFAULT) [address] [address] XR Cervical and thoracic and lumbar spine [...] IMPRESSION: Intact vagus nerve stimulator as described. [facility]ical and [facility] and lumbar spine ViewsOrdered By: Alice Crespo on 01-09-2023 [facility] Work Phone: XR STIMULATOR/INTRATHECAL PU MP CERVICAL/THORACIC/LUMBARon [...] Intact vagus nerve stimulator as described. Normal [facility] PROGESTERONEon 05-24-2022 Progesterone 5.5 ng/mL Normal [facility] Comment on above: Result Comment: Foll icular phase 0.1 - 0.9 Luteal phase 1.8 - 23.9 Ovulation phase 0.1 - 12.0 First trimester 11.0 - 44.3 Second trimester 25.4 - 83.3 Third trimester 58.7 - 214.0 Postmenopausal 0.0 - 0.1 Performed By: #### P DANIEL #### [facility] [address] [place] [address] Dr. Nicol Oswald LAMOTRIGINEon 05-02-2022 Lamotrigine, Serum 4.7 ug/mL Normal 2.0-20.0 [facility] Comment on above: Result Comment: Dete ction Limit = 1.0 Performed By: #### P DANIEL #### [facility] [address] [place] [address] Dr. Nicol Oswald CBC AUTO DIFFon 04-30-2022 BASO # 0.0 103/ul Normal 0.0-0.1 [facility] Comment on above: Performed By: #### C BC #### [facility] [address] [place] [address] Dr. Nicol Oswald Basophils/100 WBC (Bld) 0.4 % Normal 0.2-2.0 [facility] Comment on above: Performed By: #### C BC #### [facility] [address] [place] [address] Dr. Nicol Oswald EO # 0.2 103/ul Normal 0.0-0.7 [facility] Comment on above: Performed By: #### C BC #### [facility] [address] [place] [address] Dr. Nicol Oswadl Eosinophils/100 WBC (Bld) 1.9 % Normal 0.9-7.0 [facility] Comment on above: Performed By: #### C BC #### [facility] [address] [place] [address] Dr. Nicol Oswald Erythrocyte distribution width (RBC) [Ratio] 12.8 % Normal 11.0-15.0 [facility] Comment on above: Performed By: #### C BC #### [facility] [address] [place] [address] Dr. Nicol Oswald Hematocrit (Bld) [Volume fraction] 40.4 % Normal 36.0-48.0 [facility] Comment on above: Performed By: #### C BC #### [facility] [address] [place] [address] Dr. Nicol Oswald Hemoglobin (Bld) [Mass/Vol] 13.6 g/dL Normal 12.0-16.0 [facility] Comment on above: Performed By: #### C BC #### [facility] [address] [place] [address] Dr. Nicol Oswald IG # 0.03 10e3/ul Normal 0.00-0.03 [facility] Comment on above: Performed By: #### C BC #### [facility] [address] [place] [address] Dr. Nicol Oswald IG % 0.4 % Normal 0.0-0.5 [facility] Comment on above: Performed By: #### C BC #### [facility] [address] [place] [address] Dr. Nicol Oswald LYMPH # 3.1 103/ul Normal 1.2-3.8 [facility] Comment on above: Performed By: #### C BC #### [facility] [address] [place] [address] Dr. Nicol Oswald Lymphocytes/100 WBC (Bld) 36.4 % Normal 20.5-60.0 [facility] Comment on above: Performed By: #### C BC #### [facility] [address] [place] [address] Dr. Nicol Oswald MANUAL DIFF REQ NO Normal [facility] Comment on above: Performed By: #### C BC #### [facility] [address] [place] [address] Dr. Nicol Oswald MCH (RBC) [Entitic mass] 31.0 pg Normal 26.7-34.0 [facility] Comment on above: Performed By: #### C BC #### [facility] [address] [place] [address] Dr. Nicol Oswald MCHC (RBC) [Mass/Vol] 33.7 g/dL Normal 29.9-35.2 [facility] Comment on above: Performed By: #### C BC #### [facility] [address] [place] [address] Dr. Nicol Oswald MCV (RBC) [Entitic vol] 92.0 fL Normal 81.0-99.0 [facility] Comment on above: Performed By: #### C BC #### [facility] [address] [place] [address] Dr. Nicol Oswald MONO # 0.7 103/ul Normal 0.3-0.8 [facility] Comment on above: Performed By: #### C BC #### [facility] [address] [place] [address] Dr. Nicol Oswald Monocytes/100 WBC (Bld) 7.7 % Normal 1.7-12.0 [facility] Comment on above: Performed By: #### C BC #### [facility] [address] [place] [address] Dr. Nicol Oswald NEUT # 4.5 103/ul Normal 1.4-6.5 [facility] Comment on above: Performed By: #### C BC #### [facility] [address] [place] [address] Dr. Nicol Oswald Neutrophils/100 WBC (Bld) 53.2 % Normal 43.0-75.0 [facility] Comment on above: Performed By: #### C BC #### [facility] [address] [place] [address] Dr. Nicol Oswald Platelet mean volume (Bld) [Entitic vol] 11.0 fL Normal 9.5-13.5 [facility] Comment on above: Performed By: #### C BC #### [facility] [address] [place] [address] Dr. Nicol Oswald PLT 282 103/ul Normal 150-450 [facility] Comment on above: Performed By: #### C BC #### [facility] [address] [place] [address] Dr. Nicol Oswald RBC 4.39 106/ul Normal 4.20-5.40 [facility] Comment on above: Performed By: #### C BC #### [facility] [address] [place] [address] Dr. Nicol Oswald WBC 8.4 103/ul Normal 4.0-11.0 [facility] Comment on above: Performed By: #### C BC #### [facility] [address] [place] [address] Dr. Nicol Oswald LIVER PROFILEon 04-30-2022 Albumin [Mass/Vol] 4.1 g/dL Normal 3.4-5.0 [facility] Comment on above: Performed By: #### P DANIEL #### [facility] [address] [place] [address] Dr. Nicol Oswald Albumin/Globulin [Mass ratio] 1.2 {ratio} Normal [facility] Comment on above: Performed By: #### P DANIEL #### [facility] [address] [place] [address] Dr. Nicol Oswald ALP [Catalytic activity/Vol] 52 U/L Normal 46-116 [facility] Comment on above: Performed By: #### P DANIEL #### [facility] [address] [place] [address] Dr. Nicol Oswald ALT [Catalytic activity/Vol] 23 U/L Normal 14-59 [facility] Comment on above: Performed By: #### P DANIEL #### [facility] [address] [place] [address] Dr. Nicol Oswald AST [Catalytic activity/Vol] 17 U/L Normal 15-37 [facility] Comment on above: Performed By: #### P DANIEL #### [facility] [address] [place] [address] Dr. Nicol Oswald BILI, CONJUGATED 0.1 mg/dL Normal 0.0-0.2 [facility] Comment on above: Performed By: #### P DANIEL #### [facility] [address] [place] [address] Dr. Nicol Oswald Bilirubin [Mass/Vol] 0.2 mg/dL Normal 0.2-1.0 [facility] Comment on above: Performed By: #### P DANIEL #### [facility] [address] [place] [address] Dr. Nicol Oswald Globulin (S) [Mass/Vol] 3.4 g/dL Normal T [facility] Comment on above: Performed By: #### P DANIEL #### [facility] [address] [place] [address] Dr. Nicol Oswald Protein [Mass/Vol] 7.5 g/dL Normal 6.4-8.2 [facility] Comment on above: Performed By: #### P DANIEL #### [facility] [address] [place] [address] Dr. Nicol Oswald PROF CHEM 8 (BAS METB)on Anion gap [Moles/Vol] 8.5 mmol/L Normal [facility] Comment on above: Performed By: #### P DANIEL #### [facility] [address] [place] [address] Dr. Nicol Oswald Calcium [Mass/Vol] 9.4 mg/dL Normal 8.5-10.1 [facility] Comment on above: Performed By: #### P DANIEL #### [facility] [address] [place] [address] Dr. Nicol Oswald Chloride [Moles/Vol] 102 mmol/L Normal 98-107 [facility] Comment on above: Performed By: #### P DANIEL #### [facility] [address] [place] [address] Dr. Nicol Oswald CO2 [Moles/Vol] 30.4 mmol/L Normal 21.0-32.0 [facility] Comment on above: Performed By: #### P DANIEL #### [facility] [address] [place] [address] Dr. Nicol Oswald Creatinine [Mass/Vol] 0.57 mg/dL Normal 0.55-1.02 [facility] Comment on above: Performed By: #### P DANIEL #### [facility] [address] [place] [address] Dr. Nicol Oswald EGFR-AF LUXEMBOURGER >60 Normal >=60 [facility] Comment on above: Performed By: #### P DANIEL #### [facility] [address] [address] [address] Nicol Oswald EGFR-NON AF LUXEMBOURGER >60 Normal >=60 [facility] Comment on above: Performed By: #### P DANIEL #### [facility] [address] [address] [address] Nicol Oswald Glucose [Mass/Vol] 89 mg/dL Normal 74-106 [facility] Comment on above: Performed By: #### P DANIEL #### [facility] [address] [address] [address] Nicol Oswald Potassium [Moles/Vol] 3.9 mmol/L Normal 3.5-5.1 [facility] Comment on above: Performed By: #### P DANIEL #### [facility] [address] [address] [address] Nicol Oswald Sodium [Moles/Vol] 137 mmol/L Normal 136-145 [facility] Comment on above: Performed By: #### P DANIEL #### [facility] [address] [place] [address] Dr. Nicol Oswald Urea nitrogen [Mass/Vol] 10.0 mg/dL Normal 7.0-18.0 [facility] Comment on above: Performed By: #### P DANIEL #### [facility] [address] [address] [address] Nicol Oswald Urea nitrogen/Creatinine [Mass ratio] 17.5 mg/mg Normal [facility] Comment on above: Performed By: #### P DANIEL #### [facility] [address] [address] [address] Nicol Oswald ESTROGENon 04-19-2022 Estrogens, Total 124 pg/mL Normal [facility] Comment on above: Result Comment: Prep ubertal < 40 Female Cycle: 1-10 Days 16 - 328 11-20 Days 34 - 501 21-30 Days 48 - 350 Post-Menopausal 40 - 244 Performed By: #### E KYLIE #### [facility] [address] [place], [place] [address] Dr. Nicol Oswald DHEA SERUMon 04-18-2022 Dehydroepiandrosterone (DHEA) 371 ng/dL Normal [address] [facility] Comment on above: Result Comment: Age [...] 89 Performed By: #### P DANIEL #### [facility] [address] [address] [address] Nicol Oswald DHEA-SULFATEon 04-16-2022 DHEA-Sulfate 371.0 ug/dL Normal 84.8-378.0 [facility] Comment on above: Performed By: #### P DANIEL #### [facility] [address] [place] [address] Dr. Nicol Oswald FSHon 04-16-2022 FSH 5.6 mIU/mL Normal [facility] Comment on above: Result Comment: Adul t Female: Follicular phase 3.5 - 12.5 Ovulation phase 4.7 - 21.5 Luteal phase 1.7 - 7.7 Postmenopausal 25.8 - 134.8 Performed By: #### P DANIEL #### [facility] [address] [place] [address] Dr. Nicol Oswald LUTEINIZING HORMONE (LH)on 0 04-16-2022 LH 12.9 mIU/mL Normal [facility] Comment on above: Result Comment: Adul t Female: Follicular phase 2.4 - 12.6 Ovulation phase 14.0 - 95.6 Luteal phase 1.0 - 11.4 Postmenopausal 7.7 - 58.5 Performed By: #### P DANIEL #### [facility] [address] [place] [address] Dr. Nicol Oswald PROGESTERONEon 04-16-2022 Progesterone 0.2 ng/mL Normal [facility] Comment on above: Result Comment: Foll icular phase 0.1 - 0.9 Luteal phase 1.8 - 23.9 Ovulation phase 0.1 - 12.0 First trimester 11.0 - 44.3 Second trimester 25.4 - 83.3 Third trimester 58.7 - 214.0 Postmenopausal 0.0 - 0.1 Performed By: #### P ROGES #### [facility] [address] [address] [address] Nicol Oswald PROLACTINon 04-16-2022 Prolactin 7.1 ng/mL Normal 4.8-23.3 [facility] Comment on above: Performed By: #### P ROLAC #### [facility] [address] [address] [address] Nicol Oswald US PELVIS AND TRANSVAGon [...] CYDNEY VALDEZ Date: 2022-04-16 08:48 Normal [facility] CBC AUTO DIFFon 04-15-2022 BASO # 0.0 103/ul Normal 0.0-0.1 [facility] Comment on above: Performed By: #### C BC #### [facility] [address] [place] [address] Dr. Nicol Oswald Basophils/100 WBC (Bld) 0.5 % Normal 0.2-2.0 [facility] Comment on above: Performed By: #### C BC #### [facility] [address] [place] [address] Dr. Nicol Oswald EO # 0.2 103/ul Normal 0.0-0.7 [facility] Comment on above: Performed By: #### C BC #### [facility] [address] [place] [address] Dr. Nicol Oswald Eosinophils/100 WBC (Bld) 2.1 % Normal 0.9-7.0 [facility] Comment on above: Performed By: #### C BC #### [facility] [address] [place] [address] Dr. Nicol Oswald Erythrocyte distribution width (RBC) [Ratio] 12.5 % Normal 11.0-15.0 [facility] Comment on above: Performed By: #### C BC #### [facility] [address] [place] [address] Dr. Nicol Oswald Hematocrit (Bld) [Volume fraction] 44.7 % Normal 36.0-48.0 [facility] Comment on above: Performed By: #### C BC #### [facility] [address] [place] [address] Dr. Nicol Oswald Hemoglobin (Bld) [Mass/Vol] 14.3 g/dL Normal 12.0-16.0 [facility] Comment on above: Performed By: #### C BC #### [facility] [address] [place] [address] Dr. Nicol Oswald IG # 0.01 10e3/ul Normal 0.00-0.03 [facility] Comment on above: Performed By: #### C BC #### [facility] [address] [place] [address] Dr. Nicol Oswald IG % 0.1 % Normal 0.0-0.5 [facility] Comment on above: Performed By: #### C BC #### [facility] [address] [place] [address] Dr. Nicol Oswald LYMPH # 2.0 103/ul Normal 1.2-3.8 [facility] Comment on above: Performed By: #### C BC #### [facility] [address] [place] [address] Dr. Nicol Oswald Lymphocytes/100 WBC (Bld) 26.0 % Normal 20.5-60.0 [facility] Comment on above: Performed By: #### C BC #### [facility] [address] [place] [address] Dr. Nicol Oswald MANUAL DIFF REQ NO Normal [facility] Comment on above: Performed By: #### C BC #### [facility] [address] [place] [address] Dr. Nicol Oswald MCH (RBC) [Entitic mass] 30.8 pg Normal 26.7-34.0 [facility] Comment on above: Performed By: #### C BC #### [facility] [address] [place] [address] Dr. Nicol Oswald MCHC (RBC) [Mass/Vol] 32.0 g/dL Normal 29.9-35.2 [facility] Comment on above: Performed By: #### C BC #### [facility] [address] [place] [address] Dr. Nicol Oswald MCV (RBC) [Entitic vol] 96.3 fL Normal 81.0-99.0 [facility] Comment on above: Performed By: #### C BC #### [facility] [address] [place] [address] Dr. Nicol Oswald MONO # 0.6 103/ul Normal 0.3-0.8 [facility] Comment on above: Performed By: #### C BC #### [facility] [address] [place] [address] Dr. Nicol Oswald Monocytes/100 WBC (Bld) 7.3 % Normal 1.7-12.0 [facility] Comment on above: Performed By: #### C BC #### [facility] [address] [place] [address] Dr. Nicol Oswald NEUT # 4.9 103/ul Normal 1.4-6.5 [facility] Comment on above: Performed By: #### C BC #### [facility] [address] [place] [address] Dr. Nicol Oswald Neutrophils/100 WBC (Bld) 64.0 % Normal 43.0-75.0 [facility] Comment on above: Performed By: #### C BC #### [facility] [address] [place] [address] Dr. Nicol Oswald Platelet mean volume (Bld) [Entitic vol] 11.3 fL Normal 9.5-13.5 [facility] Comment on above: Performed By: #### C BC #### [facility] [address] [place] [address] Dr. Nicol Oswald PLT 302 103/ul Normal 150-450 [facility] Comment on above: Performed By: #### C BC #### [facility] [address] [place] [address] Dr. Nicol Oswald RBC 4.64 106/ul Normal 4.20-5.40 [facility] Comment on above: Performed By: #### C BC #### [facility] [address] [place] [address] Dr. Nicol Oswald WBC 7.7 103/ul Normal 4.0-11.0 [facility] Comment on above: Performed By: #### C BC #### [facility] [address] [place] [address] Dr. Nicol Oswald FREE T4on 04-15-2022 Free T4 [Mass/Vol] 0.80 ng/dL Normal 0.76-1.46 [facility] Comment on above: Performed By: #### F T4 #### [facility] [address] [place] [address] Dr. Nicol Oswald GLYCOHEMOGLOBIN A1Con 2022 ADA RECOMMENDATION SEE BELOW Normal [facility] Comment on above: Result Comment: ADA RECOMMENDED LIMIT 4.0 - 6.0 ADA THERAPEUTIC TARGET < 7.0 ACTION SUGGESTED > 7.0 Performed By: #### A 1C #### [facility] [address] [place] [address] Dr. Nicol Oswald Glucose [Mass/Vol] 114 mg/dL Normal [facility] Comment on above: Performed By: #### A 1C #### [facility] [address] [address] [address] Nicol Oswald HbA1c (Bld) [Mass fraction] 5.6 % Normal 4.5-6.2 [facility] Comment on above: Performed By: #### A 1C #### [facility] [address] [address] [address] Nicol Oswald PREG QUANT HCGon 04-15-2022 HCG QUANT <1 Normal [facility] Comment on above: Performed By: #### P REGQNT, TSH #### [facility] [address] [address] [address] Nicol Oswald HCG RANGE SEE BELOW [facility] Comment on above: Result Comment: 5-50 0.2-1 WEEK 50-500 1-2 WEEKS 100-5,000 2-3 WEEKS 500-10,000 3-4 WEEKS 1,000-50,000 4-5 WEEKS 10,000-100,000 5-6 WEEKS 15,000-200,000 6-8 WEEKS 10,000-100,000 2-3 MONTHS Performed By: #### P REGQNT, TSH #### [facility] [address] [address] [address] Nicol Oswald TSHon 04-15-2022 TSH 1.312 uIU/mL Normal 0.358-3.740 [facility] Comment on above: Performed By: #### P REGQNT, TSH #### [facility] [address] [address] [address] Nicol Oswald PAP ACOG PANEL 2: 21 to 31on 08-31-2021 . . Normal [facility] Comment on above: Performed By: #### P DANIEL #### [facility] [address] [address] [address] Nicol Oswald Age Gdln ACOG Testing - [facility] Comment on above: Performed By: #### P ROGES #### [facility] [address] [place] [address] Dr. Nicol Oswald DIAGNOSIS: Comment Normal [facility] Comment on above: Result Comment: NEGA TIVE FOR INTRAEPITHELIAL LESION OR MALIGNANCY. THIS SPECIMEN WAS RESCREENED PART OF OUR [employer] PROGRAM. Performed By: #### P JASONES #### [facility] [address] [place] [address] Dr. Nicol Oswald Methodology: Comment Normal [facility] Comment on above: Result Comment: This liquid based ThinPrep(R) pap test was screened with the use of an image guided system. Performed By: #### P ROGES #### [facility] [address] [place] [address] Dr. Nicol Oswald Note: Comment Normal [facility] Comment on above: Result Comment: The Pap smear is a screening test designed to aid in the detection of premalignant and malignant conditions of the uterine cervix. It is not a diagnostic procedure and should not be used as the sole means of detecting cervical cancer. Both false-positive and false-negative reports do occur. . Performed By: #### P DANIEL #### [facility] [address] [place] [address] Dr. Nicol Oswald Performed by: Comment Normal [facility] Comment on above: Result Comment: Mireille Blanco, House Cleaner Supervisor (ASCP) Performed By: #### P DANIEL #### [facility] [address] [place] [address] Dr. Nicol Owsald QC reviewed by: Comment Normal [facility] Comment on above: Result Comment: Tahira Roque, House Cleaner Supervisor (ASCP) Performed By: #### P DANIEL #### [facility] [address] [place] [address] Dr. Nicol Oswald Reflex Criteria: Comment Normal [facility] Comment on above: Result Comment: The HPV DNA reflex criteria were not met with this specimen result therefore, no HPV testing was performed. . Performed By: #### P ROGES #### [facility] [address] [place] [address] Dr. Nicol Oswald Specimen adequacy: Comment Normal [facility] Comment on above: Result Comment: Sati sfactory for evaluation. Endocervical and/or squamous metaplastic cells (endocervical component) are present. Performed By: #### P ROGES #### [facility] [address] [address] [address] Nicol Oswald CBC Auto Diff Reflex Manualo n 02-18-2019 Automated Absolute Neutrophil 5.73 10*3/mm3 Normal [facility] Comment on above: Result Comment: Auto mated Absolute Neutrophil Count (ANC) is directly measured using a hematology instrument. ANC determined from manual differential cell count may differ. No [facility] reference range has been validated for this assay. Performed By: #### C D #### [place] [address] Basophil 0.5 % Normal 0.0-1.0 [facility] Comment on above: Performed By: #### C D #### [place] [address] Differential Type Automated Normal [facility] Comment on above: Performed By: #### C D #### [place] [address] Eosinophil 1.6 % Normal 1.0-4.0 [facility] Comment on above: Performed By: #### C D #### [place] [address] Erythrocyte distribution width (RBC) [Ratio] 13.4 % Normal 10-14.1 [facility] Comment on above: Performed By: #### C D #### [place] [address] Lymphocyte 22.6 % Low 24.0-44.0 [facility] Comment on above: Performed By: #### C D #### [place] [address] MCH (RBC) [Entitic mass] 30.7 pg Normal 26-34 [facility] Comment on above: Performed By: #### C D #### Performed at [address] [address] [address] MCHC (RBC) [Mass/Vol] 33.2 % Normal 31.0-37.0 [facility] Comment on above: Performed By: #### C D #### Performed at [facility], [address], [place] [address] MCV (RBC) [Entitic vol] 92.4 fL Normal 80-100 N [facility] Comment on above: Performed By: #### C D #### Performed at [address] [address] Monocyte 8.2 % High 1.0-7.0 [facility] Comment on above: Performed By: #### C D #### Performed at [address] [address] Neutrophil 67.1 % Normal 41.0-77.0 [facility] Comment on above: Performed By: #### C D #### Performed at [address] [address] Platelet mean volume (Bld) [Entitic vol] 11.5 fL Normal 9.3-13.0 [facility] Comment on above: Performed By: #### C D #### Performed at [address] [address] Platelets (Bld) [#/Vol] 268 10*3/uL Normal 140-440 [facility] Comment on above: Performed By: #### C D #### Performed at [address] [address] RBC (Bld) [#/Vol] 4.60 10*6/uL Normal 4.0-5.2 [facility] Comment on above: Performed By: #### C D #### Performed at [address] [address] WBC (Bld) [#/Vol] 8.6 10*3/uL Normal 4.5-11 [facility] Comment on above: Performed By: #### C D #### Performed at [address] [address] Comprehensive Metabolic Pane mehran 02-18-2019 Albumin [Mass/Vol] 4.7 g/dL Normal 3.4-5.2 [facility] ALP [Catalytic activity/Vol] 47 U/L Low 50-136 [facility] ALT [Catalytic activity/Vol] 32 U/L Normal <40 [facility] AST [Catalytic activity/Vol] 29 U/L Normal 15-50 [facility] Bilirubin Ql (U) 0.2 mg/dL Normal 0.1-1.0 [facility] Calcium [Mass/Vol] 9.8 mg/dL Normal 8-10.5 [facility] Chloride [Moles/Vol] 104 mmol/L Normal 95-106 [facility] CO2 [Moles/Vol] 25 mmol/L Normal 24-35 [facility] Creatinine [Mass/Vol] 0.52 mg/dL Normal 0.5-1 [facility] Glucose [Mass/Vol] 135 mg/dL High 60-115 [facility] Potassium [Moles/Vol] 4.5 mmol/L Normal 3.7-5.3 Marg[facility] Protein [Mass/Vol] 8.0 g/dL Normal 6.4-8.4 [facility] Sodium [Moles/Vol] 140 mmol/L Normal 135-145 [facility] Urea nitrogen [Mass/Vol] 15 mg/dL Normal 5-18 [facility] Valproic Acidon 02-18-2019 Valproic Acid 47.1 ug/mL Low 50.0-100.0 [facility] PAP, THIN PREP WITH IMAGINGo n 06-29-2018 PAP, THIN PREP WITH IMAGING Normal [facility] Comment on above: Result Comment: INTE RPRETATION Thin Prep Image-Guided Pap Test (Cervical/Endocervical) NEGATIVE FOR INTRAEPITHELIAL LESION /MALIGNANCY Satisfactory for evaluation (Endocervical/transformation zone component present) [facility]/06/27/2018 The Pap test is a screening test, [...] 05/18/18 ICD-CM DIAGNOSIS CODE(S) Z01.419 Encntr For Striper Spray Gun Exam (general) (routine) W/o Abn Findings * EFFECTIVE 06/08/2018 * * CLINICAL CHEMISTRY PLATFORM CHANGES ARE ASSOCIATED WITH * * REFERENCE RANGE CHANGES FOR A NUMBER OF ANALYTES. PLEASE * * REVIEW REFERENCE INTERVALS CAREFULLY * Pathology [employer] [address] [place] [address] CLIA No. [id number] CAP Accreditation No. [id number] Dough Mixer: Johnson Garland M.D. [facility] Accession Number: [id number] Performed By: #### P L PAP W/IMAGE #### [place] [address] [address] [facility], [place] [id number] [phone] CT Nucleic-Acid Probe-Endoce rvical Swabon 06-24-2018 CT Nucleic-Acid Probe-Endocervical Swab Negative Normal NEGATIVE [facility] Comment on above: Performed By: #### G C Amp Endocerv, CT Amp Endocerv #### [address] [facility] [place] [address] Age at specimen collection = Normal [facility] Comment on above: Performed By: #### G C Amp Endocerv, CT Amp Endocerv #### [place] [address] [facility] [place] [address] Performed By: #### P L PAP W/IMAGE #### [address] [facility] [place] [facility] [place] [address] GC Nucleic-Acid Probe-Endoce rvical Swabon 06-24-2018 GC Nucleic-Acid Probe-Endocervical Swab Negative Normal NEGATIVE [facility] Comment on above: Performed By: #### G C Amp Endocerv, CT Amp Endocerv #### [facility] [address] [place] [address] Platelet Functionon 03-24-19 19 Collagen/ADP 148 sec High 67-112 [facility] Comment on above: Performed By: #### P FA #### [facility] [employer] [address] [place] [address] Collagen/EPI 228 sec High 85-172 [facility] Comment on above: Performed By: #### P FA #### [facility] [address] [place] [address] Interpretation Abnormal platelet function. Normal [facility] Comment on above: Result Comment: [...] established. Performed By: #### P FA #### [facility] [address] [place] [address] XR ANKLE RIGHT STANDARDon XR ANKLE RIGHT STANDARD Radiology exam i s complete. No Radiologist dictation. Please follow up with ordering provider. Final result Normal [facility] Vital Signs Date Time Vital Sign Value Performing Clinician Facility 09-24-2023 10: Body height 170.18 cm [facility] 09-24-2023 10: Body mass index (BMI) [Ratio] 30.2 kg/m2 [facility] 09-24-2023 10: Body weight 87.54 kg [facility] 09-24-2023 10: Diastolic blood pressure 78 mm[Hg] [facility] 09-24-2023 10: Heart rate 67 /min [facility] 09-24-2023 10:29-0400 SaO2% (BldA) [Mass fraction] 98 % [facility] 09-24-2023 10:29-0400 Systolic blood pressure 112 mm[Hg] [facility] 08-21-2023 14:43-0400 Body height 161.3 cm Cori Maturu V, DO Work Phone: [facility] Comment on above: verbal 08-21-2023 14:43-0400 Body mass index (BMI) [Ratio] 34.59 kg/m2 Cori Maturu V, DO Work Phone: [facility] 08-21-2023 14:43-0400 Body temperature 98.29 [degF] Cori Maturu V, DO Work Phone: [facility] 08-21-2023 14:43-0400 Body weight 89.99 kg Cori Maturu V, DO Work Phone: [facility] 08-21-2023 14:43-0400 Diastolic blood pressure 76 mm[Hg] Cori Maturu V, DO Work Phone: [facility] 08-21-2023 14:43-0400 Heart rate 88 /min Cori Maturu V, DO Work Phone: [facility] 08-21-2023 14:43-0400 Systolic blood pressure 130 mm[Hg] Cori Maturu V, DO Work Phone: [facility] 07-07-2023 14:37-0400 Body height 170.18 cm [facility] 07-07-2023 14:37-0400 Body mass index (BMI) [Ratio] 30.8 kg/m2 [facility] 07-07-2023 14:37-0400 Body weight 89.35 kg [facility] 07-07-2023 14:37-0400 Diastolic blood pressure 78 mm[Hg] [facility] 07-07-2023 14:37-0400 Heart rate 81 /min [facility] 07-07-2023 14:37-0400 SaO2% (BldA) [Mass fraction] 98 % [facility] 07-07-2023 14:37-0400 Systolic blood pressure 112 mm[Hg] [facility] 05-28-2023 14:04-0400 Body height 161.3 cm Riana Raoul SUPERVISOR WET ROOM-TUMBLER DYEING MACHINE OPERATOR Work Phone: [facility] 05-28-2023 14:04-0400 Body mass index (BMI) [Ratio] 34.09 kg/m2 Crystal Raoul SUPERVISOR WET ROOM-TUMBLER DYEING MACHINE OPERATOR Work Phone: [facility] 05-28-2023 14:04-0400 Body temperature 98.01 [degF] Crystal Raoul SUPERVISOR WET ROOM-TUMBLER DYEING MACHINE OPERATOR Work Phone: [facility] 05-28-2023 14:04-0400 Body weight 88.68 kg Crystal Raoul SUPERVISOR WET ROOM-TUMBLER DYEING MACHINE OPERATOR Work Phone: [facility] 05-28-2023 14:04-0400 Diastolic blood pressure 74 mm[Hg] Crystal Raoul SUPERVISOR WET ROOM-TUMBLER DYEING MACHINE OPERATOR Work Phone: [facility] 05-28-2023 14:04-0400 Heart rate 92 /min Crystal Raoul SUPERVISOR WET ROOM-TUMBLER DYEING MACHINE OPERATOR Work Phone: [facility] 05-28-2023 14:04-0400 Systolic blood pressure 122 mm[Hg] Crystal Raoul SUPERVISOR WET ROOM-TUMBLER DYEING MACHINE OPERATOR Work Phone: [facility] 04-22-2023 13:04-0500 Body mass index (BMI) [Ratio] 34 kg/m2 Donovan Kimmie DO Work Phone: [facility] 04-22-2023 13:04-0500 Body weight 88.45 kg Donovan Kimmie DO Work Phone: [facility] 04-22-2023 13:04-0500 Diastolic blood pressure 78 mm[Hg] Donovan Kimmie DO Work Phone: [facility] 04-22-2023 13:04-0500 Systolic blood pressure 120 mm[Hg] Donovan Kimmie DO Work Phone: [facility] 02-14-2023 15:48-0500 Body height 161.3 cm Crystal Raoul SUPERVISOR WET ROOM-TUMBLER DYEING MACHINE OPERATOR Work Phone: [facility] Comment on above: verbal 02-14-2023 15:48-0500 Body mass index (BMI) [Ratio] 34.82 kg/m2 Crystal Raoul SUPERVISOR WET ROOM-TUMBLER DYEING MACHINE OPERATOR Work Phone: [facility] 02-14-2023 15:48-0500 Body temperature 97.9 [degF] Crystal Raoul SUPERVISOR WET ROOM-TUMBLER DYEING MACHINE OPERATOR Work Phone: [facility] 02-14-2023 15:48-0500 Body weight 90.58 kg Crystal Raoul SUPERVISOR WET ROOM-TUMBLER DYEING MACHINE OPERATOR Work Phone: [facility] 02-14-2023 15:48-0500 Diastolic blood pressure 79 mm[Hg] Crystal Raoul SUPERVISOR WET ROOM-TUMBLER DYEING MACHINE OPERATOR Work Phone: [facility] 02-14-2023 15:48-0500 Heart rate 107 /min Crystal Raoul SUPERVISOR WET ROOM-TUMBLER DYEING MACHINE OPERATOR Work Phone: [facility] 02-14-2023 15:48-0500 Systolic blood pressure 133 mm[Hg] Crystal Raoul SUPERVISOR WET ROOM-TUMBLER DYEING MACHINE OPERATOR Work Phone: [facility] 01-15-2023 13:50-0500 Body temperature 97.5 [degF] Evy Verma MD Work Phone: [facility] 01-15-2023 13:50-0500 Diastolic blood pressure 79 mm[Hg] Evy Verma MD Work Phone: [facility] 01-15-2023 13:50-0500 Heart rate 78 /min Evy Verma MD Work Phone: [facility] 01-15-2023 13:50-0500 Respiratory rate 16 /min Evy Verma MD Work Phone: [facility] 01-15-2023 13:50-0500 SaO2% (BldA) [Mass fraction] 98 % Evy Verma MD Work Phone: [facility] 01-15-2023 13:50-0500 Systolic blood pressure 117 mm[Hg] Evy Verma MD Work Phone: [facility] 01-15-2023 07:50-0500 Body height 161.3 cm Evy Verma MD Work Phone: [facility] 01-15-2023 07:50-0500 Body mass index (BMI) [Ratio] 34.37 kg/m2 Evy Verma MD Work Phone: [facility] 01-15-2023 07:50-0500 Body weight 89.4 kg Evy Verma MD Work Phone: [facility] 01-09-2023 08:39-0400 Body height 161.3 cm Esau Hernandez PAC Work Phone: [facility] 01-09-2023 08:39-0400 Body mass index (BMI) [Ratio] 33.65 kg/m2 Esau Hernandez PAC Work Phone: [facility] 01-09-2023 08:39-0400 Body temperature 98.49 [degF] Esau Hernandez PAC Work Phone: [facility] 01-09-2023 08:39-0400 Body weight 87.54 kg Esau Hernandez PAC Work Phone: [facility] 01-09-2023 08:39-0400 Diastolic blood pressure 80 mm[Hg] Esau Hernandez PAC Work Phone: [facility] 01-09-2023 08:39-0400 Heart rate 81 /min Esau Hernandez PAC Work Phone: [facility] 01-09-2023 08:39-0400 Respiratory rate 18 /min Esau Hernandez PAC Work Phone: [facility] 01-09-2023 08:39-0400 SaO2% (BldA) [Mass fraction] 98 % Esau Hernandez PAC Work Phone: [facility] 01-09-2023 08:39-0400 Systolic blood pressure 134 mm[Hg] Esau Hernandez PAC Work Phone: [facility] 12-10-2022 10:53-0400 Body height 160 cm Evy Verma MD Work Phone: [facility] 12-10-2022 10:53-0400 Body mass index (BMI) [Ratio] 34.19 kg/m2 Evy Verma MD Work Phone: [facility] 12-10-2022 10:53-0400 Body weight 87.54 kg Evy Verma MD Work Phone: [facility] 12-10-2022 10:53-0400 Diastolic blood pressure 63 mm[Hg] Evy Verma MD Work Phone: [facility] 12-10-2022 10:53-0400 Heart rate 65 /min Evy Verma MD Work Phone: [facility] 12-10-2022 10:53-0400 Systolic blood pressure 125 mm[Hg] Evy Verma MD Work Phone: [facility] 11-08-2022 16:21-0400 Body height 160 cm Riana Chinchilla APRN-TUMBLER DYEING MACHINE OPERATOR Work Phone: [facility] Comment on above: verbal 11-08-2022 16:21-0400 Body mass index (BMI) [Ratio] 34.26 kg/m2 Crystal Raoul SUPERVISOR WET ROOM-TUMBLER DYEING MACHINE OPERATOR Work Phone: [facility] 11-08-2022 16:21-0400 Body temperature 99.1 [degF] Riana Chinchilla SUPERVISOR WET ROOM-TUMBLER DYEING MACHINE OPERATOR Work Phone: [facility] 11-08-2022 16:21-0400 Body weight 87.73 kg Riana Raoul SUPERVISOR WET ROOM-TUMBLER DYEING MACHINE OPERATOR Work Phone: [facility] 11-08-2022 16:21-0400 Diastolic blood pressure 71 mm[Hg] Riana Raoul SUPERVISOR WET ROOM-TUMBLER DYEING MACHINE OPERATOR Work Phone: [facility] 11-08-2022 16:21-0400 Heart rate 97 /min Riana Raoul SUPERVISOR WET ROOM-TUMBLER DYEING MACHINE OPERATOR Work Phone: [facility] 11-08-2022 16:21-0400 Systolic blood pressure 116 mm[Hg] Riana Chinchilla SUPERVISOR WET ROOM-TUMBLER DYEING MACHINE OPERATOR Work Phone: [facility] 07-04-2021 09:38-0400 Body height 161.3 cm Riana Chinchilla SUPERVISOR WET ROOM-TUMBLER DYEING MACHINE OPERATOR Work Phone: [facility] Comment on above: verbal 07-04-2021 09:38-0400 Body mass index (BMI) [Ratio] 36.23 kg/m2 Riana Chinchilla SUPERVISOR WET ROOM-TUMBLER DYEING MACHINE OPERATOR Work Phone: [facility] 07-04-2021 09:38-0400 Body temperature 98.71 [degF] Riana Chinchilla SUPERVISOR WET ROOM-TUMBLER DYEING MACHINE OPERATOR Work Phone: [facility] 07-04-2021 09:38-0400 Body weight 94.26 kg Riana Chinchilla SUPERVISOR WET ROOM-TUMBLER DYEING MACHINE OPERATOR Work Phone: [facility] 07-04-2021 09:38-0400 Diastolic blood pressure 70 mm[Hg] Crystal Raoul SUPERVISOR WET ROOM-TUMBLER DYEING MACHINE OPERATOR Work Phone: [facility] 07-04-2021 09:38-0400 Heart rate 73 /min Crystal Raoul SUPERVISOR WET ROOM-TUMBLER DYEING MACHINE OPERATOR Work Phone: [facility] 07-04-2021 09:38-0400 Systolic blood pressure 119 mm[Hg] Riana Chinchilla SUPERVISOR WET ROOM-TUMBLER DYEING MACHINE OPERATOR Work Phone: [facility] Encounters Encounter Date Encounter Type Care Provider Facility Start: 01-16-2024 End: 01-17-2024 Clinisync Result Encounter Donovan Kimmie DO Work Phone: [facility] Unsolicited Start: 01-16-2024 End: 01-17-2024 Clinisync Result Encounter Donovan Kimmie DO Work Phone: [facility] External [facility] Unsolicited Start: 12-15-2023 End: 12-16-2023 Clinisync Result Encounter Donovan Kimmie DO Work Phone: [facility] External [facility] Unsolicited Start: 12-15-2023 End: 12-16-2023 Clinisync Result Encounter Donovan Kimmie DO Work Phone: [facility] External [facility] Unsolicited Start: 11-19-2023 End: 11-19-2023 Telephone encounter [facility] Comment on above: Insurance Start: 11-14-2023 End: 11-14-2023 Telephone encounter Helena Meza MA [facility] [place] Comment on above: Insurance ([facility]) Start: 10-20-2023 End: 10-20-2023 ambulatory DONOVAN KIMMIE Not Available Start: 10-15-2023 End: 10-15-2023 ambulatory MADONNA PARSONS Not Available Start: 09-24-2023 End: 09-24-2023 ambulatory [facility] Work Phone: Start: 09-24-2023 End: 09-24-2023 Patient encounter procedure [facility] Work Phone: Start: 09-11-2023 Non-patient / Non-visit [facility] Work Phone: Start: 08-21-2023 End: 08-21-2023 Office outpatient visit 25 minutes Cori Hernández DO Work Phone: Neurology [facility] 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); Anxiety disorder, unspecified type Start: 08-21-2023 ambulatory [facility] Facility: [facility] Start: 08-08-2023 Non-patient / Non-visit [facility] Work Phone: Start: 07-09-2023 Non-patient / Non-visit [facility] Work Phone: Start: 07-07-2023 End: 07-07-2023 ambulatory [facility] Work Phone: Start: 07-07-2023 End: 07-07-2023 Patient encounter procedure [facility] Work Phone: Start: 06-27-2023 Non-patient / Non-visit [facility] Work Phone: Start: 06-08-2023 Non-patient / Non-visit [facility] Work Phone: Start: 05-28-2023 End: 05-28-2023 Office outpatient visit 25 minutes Riana Chinchilla APRN-TUMBLER DYEING MACHINE OPERATOR Work Phone: [facility] [place] 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); Anxiety disorder, unspecified type Start: 05-28-2023 ambulatory [facility] Facility: [facility] Start: 05-09-2023 Non-patient / Non-visit [facility] Work Phone: Start: 04-22-2023 End: 04-22-2023 ambulatory DONOVAN KIMMIE Not Available Start: 04-22-2023 End: 04-22-2023 Office outpatient visit 15 minutes Donovan Kimmie DO Work Phone: [facility] Comment on above: Encounter for fertil ity planning Start: 04-22-2023 End: 04-22-2023 ambulatory DONOVAN KIMMIE Not Available Start: 02-14-2023 End: 02-14-2023 Office outpatient visit 25 minutes Riana Chinchilla SUPERVISOR WET ROOM-TUMBLER DYEING MACHINE OPERATOR Work Phone: [facility] [place] 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); 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 Start: 02-14-2023 ambulatory TIM ROLON Facility: [facility] Start: 01-15-2023 End: 01-15-2023 ambulatory EVY VERMA Facility:[facility] Start: 01-15-2023 End: 01-15-2023 Subsequent hospital visit by physician Evy Verma MD Work Phone: [facility] 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 Start: 01-09-2023 ambulatory EVY VERMA Facility:[facility] Start: 01-09-2023 End: 01-09-2023 Office consultation new/estab patient 60 min Esau Hernandez PAC Work Phone: Pre-Procedure Evaluation and Assessment [facility] Comment on above: Preop exam for inter nal medicine (Primary Dx); Jeavons syndrome; 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 Start: 01-09-2023 End: 01-09-2023 Patient encounter status Esau Hernandez PAC Work Phone: [facility] Start: 01-09-2023 End: 01-09-2023 Subsequent hospital visit by physician Evy Verma MD Work Phone: Imaging [facility] Comment on above: Arrived Start: 01-09-2023 ambulatory TIM ROLON Facility: [facility] Start: 01-09-2023 Encounter for other preprocedural examination ESAU HERNANDEZ Facility:[facility] Start: 01-09-2023 ambulatory TIM ROLON Facility: [facility] Start: 12-10-2022 End: 12-10-2022 Office outpatient new 45 minutes Evy Verma MD Work Phone: [facility] [place] [facility] 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) Start: 12-10-2022 ambulatory RIANA CHINCHILLA Facilit y:[facility] Start: 11-27-2022 ambulatory TIM ROLON Facility: [facility] Start: 11-19-2022 ambulatory TIM BALL Facility: [facility] Start: 11-14-2022 ambulatory TIM HAYLIE Facility: [facility] Start: 11-08-2022 End: 11-08-2022 Office outpatient visit 40 minutes Riana Gordillo Raoul SUPERVISOR WET ROOM-TUMBLER DYEING MACHINE OPERATOR Work Phone: Neurology [facility] 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) Start: 11-08-2022 ambulatory RIANA Gordillo RAOUL Facilit y:[facility] Start: 09-19-2022 ambulatory TIM ROLON Facility: [facility] Start: 09-13-2022 ambulatory SELF SELF Facility:[facility] Start: 05-23-2022 End: 05-24-[address] DONOVAN BURKS . Facility: Start: 04-30-2022 End: 05-01-[address] DOCTOR ASHTON Facility:[facility] Start: 04-16-2022 End: 04-17-[address] DONOVAN BURKS . Facility:[facility] Start: 04-15-2022 End: 04-16-[address] DONOVAN BURKS . Facility:[facility] Start: 08-27-2021 End: 08-27-[address] DONOVAN BURKS . Facility: Start: 07-04-2021 End: 07-04-2021 Office outpatient visit 25 minutes Riana Duy Raoul SUPERVISOR WET ROOM-TUMBLER DYEING MACHINE OPERATOR Work Phone: Neurology [facility] Comment on above: Generalized nonconvu lsive epilepsy (Primary Dx) Start: 06-24-2018 Encounter for gynecological examination (general) (routine) without abnormal findings NA NONE PER PATIENT [facility] Start: 06-24-2018 End: 06-24-2018 Patient encounter procedure GERARDO WARD Facility:[facility] Start: 05-25-2018 End: 05-25-2018 Patient encounter procedure . NONE PER PATIENT Facility:[facility] Start: 05-13-2018 End: 05-13-2018 Patient encounter procedure . NONE PER PATIENT Facility:[facility] Start: 03-23-2018 End: 03-24-2018 Patient encounter procedure JAMIL SMITH [facility] Start: 03-20-2018 End: 03-21-2018 Patient encounter procedure JAMIL SMITH [facility] Procedures Date Procedure Procedure Detail Performing Clinician Start: 01-16-2024 ALL PROGESTERONE Donovan Kimmie DO Work Phone: Start: 12-15-2023 ALL PROGESTERONE Donovan Kimmie DO Work Phone: Start: 01-15-2023 CARDIAC RHYTHM [...] By: #### C D #### Performed at [facility], [address] [place] [address] Start: 03-23-2018 PLATELET FUNCTION TEST JAMIL SMITH Plan of Treatment Date Care Activity Detail Author Start: 10-28-2024 End: 10-28-2024 Patient encounter procedure 10/28/2024 9:00 AM EDT Office Visit [facility] [address] [place] [id number] Kimmie, Donovan, DO [address] [place] [address] [facility] Start: 01-22-2024 End: 01-22-2024 Patient encounter procedure 01/22/2024 9:15 AM EST Office Visit Neurology [facility] [address] [facility] [address] [place] [address] Cori Dia, DO [address] [place] [address] [facility]rology [facility] [facility] Start: 11-28-2023 End: 11-28-2023 Patient encounter procedure 11/28/2023 10:20 AM EDT Office Visit Neurology Outpatient [facility] [place] [id number] [facility] [address] [place] [address] Riana Chinchilla, SUPERVISOR WET ROOM-TUMBLER DYEING MACHINE OPERATOR [address] [place] [phone] [facility] [place] Start: 11-09-2023 COVID-19 VACCINE ( season) COVID-19 VACCINE ( season) [facility] [place] [facility] Start: 11-09-2023 Influenza vaccination [facility] [place] [facility] Start: 08-21-2023 End: 08-21-2023 Patient encounter procedure 08/21/2023 2:45 PM EDT Office Visit Neurology [facility] [address] [facility] [address] [place] [address] Cori Dia, DO [address] [place] [address] Neurology [facility] Start: 05-28-2023 End: 05-28-2023 Patient encounter procedure 05/28/2023 2:00 PM EDT Office Visit Neurology [facility] [address] [place] [address] [place] [address] Riana Chinchilla, SUPERVISOR WET ROOM-TUMBLER DYEING MACHINE OPERATOR [address] [place] [phone] Neurology [facility] Start: 02-14-2023 End: 02-14-2023 Patient encounter procedure Neurology [facility] Start: 01-15-2023 End: 01-15-2023 Admission to same day surgery center 01/15/2023 9:40 AM EST - 01/15/2023 11:50 AM EST Surgery [facility] [address] [place] [phone] Evy Verma MD [address] [place] [address] INSERTION REPLACEMENT NEUROSTIMULATOR GENERATOR CRANIAL/INTRACRANIAL [facility] Comment on above: INSERTION REPLACEMENT NEUROSTIMULATOR GE NERATOR CRANIAL/INTRACRANIAL Start: 01-15-2023 End: 01-15-2023 Insj/rplcmt cranial neurostim pulse generator INSERTION REPLACEMENT NEUROSTIMULATOR GENERATOR CRANIAL/INTRACRANIAL Jeavons syndrome 01/15/2023 9:40 AM EST [facility] Start: 01-15-2023 Subsequent hospital visit by physician 01/15/2023 9:40 AM EST Hospital Encounter [facility] [address] [place] [address] Evy Verma MD [address] [place] [phone] Jeavons syndrome [facility] 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 Start: 12-10-2022 End: 12-11-2023 Radiographic imaging procedure XR STIMULATOR/INTRATHECAL PUMP Imaging Routine Jeavons syndrome Expected: 12/10/2022, Expires: 12/11/2023 [facility] Comment on above: Expected: 12/10/2022, Expires: Start: 12-10-2022 End: 12-10-2022 Patient encounter procedure 12/10/2022 11:30 AM EDT [facility] [address] [place] [address] Evy Verma MD [address] [place] [address] [facility] Start: 11-08-2022 COVID-19 VACCINE ( season) COVID-19 VACCINE ( season) [facility] [place] [facility] Start: 11-08-2022 Influenza vaccination INFLUENZA VACCINE (#1) [facility] Start: 01-04-2022 End: 01-04-2022 Patient encounter procedure 01/04/2022 Office Visit Neurology Cori Dia, DO [address] [place] [address] Neurology [facility] Start: 11-08-2021 Influenza vaccination INFLUENZA VACCINE (Season Ended) [facility] [place] [facility] Start: 10-10-2021 End: 10-10-2021 Telemedicine consultation with patient 10/10/2021 Telemedicine Neurology Riana Chinchilla, SUPERVISOR WET ROOM-TUMBLER DYEING MACHINE OPERATOR [address] [place] [phone] Neurology [facility] Start: 08-15-2021 End: 08-15-2021 Telemedicine consultation with patient 08/15/2021 Telemedicine Neurology Riana Chinchilla, SUPERVISOR WET ROOM-TUMBLER DYEING MACHINE OPERATOR [address] [place] [address] Neurology [facility] Start: 2013 Screening for malignant neoplasm of cervix CERVICAL CANCER SCREENING DISCUSSION [facility] [place] [facility] Start: 07-15-2011 Hepatitis B vaccination HEP B VACCINE (1 of 3 - 19+ 3-dose series) [facility] [place] [facility] Start: 07-15-2011 Third diphtheria, tetanus and acellular pertussis (DTaP) vaccination TDAP (ADULT) [facility] [place] [facility] Start: 2010 Tetanus vaccination TETANUS [facility] [place] [facility] Start: 07-15-2007 HIV screening HIV SCREENING DISCUSSION [facility] [place] [facility] Start: 1997 COVID-19 VACCINE (1) COVID-19 VACCINE (1) [facility] [place] [facility] Start: 01-14-1993 COVID-19 VACCINE (#1) COVID-19 VACCINE (#1) [facility] Start: 1992 Hepatitis B vaccination HEP B VACCINE (1 of 3 - 3-dose series) [facility] [place] [facility] Start: 1992 Hepatitis C antibody, confirmatory test HEPATITIS C VIRUS SCREENING [facility] [place] [facility] Start: 1992 Hepatitis C screening HEPATITIS C VIRUS SCREENING [facility] [place] [facility] Start: 1992 Tetanus vaccination TETANUS [facility] [place] [facility] Ecg routine ecg w/le ast 12 lds w/i&r VT ELECTROCARDIOGRAM, COMPLETE VT - OFFICE PERFORMED Routine 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 Ordered: 01/09/2023 [facility] [place] [facility] Comment on above: Ordered: 01/09/2023 Elec horace implt npgt phys/qhp w/o programming VT ELEC HORACE IMPLT NPGT PHYS/QHP W/O PROGRAMMING VT Charge Routine Jeavons syndrome Ordered: 09/09/2023 [facility] [place] [facility] Comment on above: Ordered: 09/09/2023 Elec horace implt smpl cn npgt prgrmg VT ELEC HORACE IMPLT SMPL CN NPGT PRGRMG VT Charge Routine Jeavons syndrome Ordered: 11/14/2022 [facility] [place] [facility] Comment on above: Ordered: 11/14/2022 Elec horace implt smpl cn npgt prgrmg VT ELEC HORACE IMPLT SMPL CN NPGT PRGRMG VT Charge Routine 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 Ordered: 03/12/2023 [facility] [place] [facility] Comment on above: Ordered: 03/12/2023 Elec horace implt smpl cn npgt prgrmg VT ELEC HORACE IMPLT SMPL CN NPGT PRGRMG VT Charge Routine Jeavons syndrome Ordered: 06/21/2023 [facility] [place] [facility] Comment on above: Ordered: 06/21/2023 Insj/rplcmt cranial neurostim pulse generator INSERTION REPLACEMENT NEUROSTIMULATOR GENERATOR CRANIAL/INTRACRANIAL Jeavons syndrome [facility] [place] [facility] Noninvasive ear/puls e oximetry single deter VT NONINVASV OXYGEN SATUR; SINGLE VT - OFFICE PERFORMED Routine 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 Ordered: 01/09/2023 [facility] [place] [facility] Comment on above: Ordered: 01/09/2023 Immunizations Immunization Date Immunization Notes Care Provider Lee shelton 01-04-2014 influenza, seasonal, injectable, preservative free Evy Verma MD Work Phone: [facility] [place] [facility] 01-04-2014 influenza virus vaccine, unspecified formulation Riana Chinchilla SUPERVISOR WET ROOM-TUMBLER DYEING MACHINE OPERATOR Work Phone: [facility] [place] [facility] Payers Date Payer Category Payer Unknown [id number] 2021 Medicaid [employer] [place] [id number] 2021-Present [address] [place] [id number] [id number] 2021 Private Health Insurance [facility] MEDICAID [id number] 2016 Unknown [id number] 2016 Self-pay 2014 Unknown [id number] 1992 Unknown [id number] 2.16.840.1.563330.3.579.2. 173 1992 Unknown [id number] 2.16.840.1.702195.3.579.2. 173 1992 Unknown [id number] 2.16.840.1.238321.3.579.2. 754 1992 Unknown [id number] 2.16.840.1.548406.3.579.2. 754 1992 Unknown [id number] 2.16.840.1.240792.3.579.2. 754 1992 Unknown [id number] 2.16.840.1.742192.3.579.2. 754 1992 Unknown [id number] 2.16.840.1.199369.3.579.2. 593 1992 Unknown [id number] 2.840.1.562851.3.579.2. 593 1992 Unknown [id number] 2.840.1.197131.3.579.2. 593 1992 Unknown [id number] 2.840.1.100782.3.579.2. 593 1992 Unknown [id number] 2.840.1.859646.3.579.2. 593 1992 Unknown [id number] 2.16840.1.971028.3.579.2. 1259 1992 Unknown [id number] 2.840.1.834853.3.579.2. 594 1992 Unknown [id number] 2.16840.1.763899.3.579.2. 594 1992 Unknown [id number] 2.16840.1.611127.3.579.2. 594 1992 Unknown [id number] 2.16840.1.666953.3.579.2. 594 1992 Unknown [id number] 2.16840.1.318641.3.579.2. 594 1992 Unknown [id number] 2.16840.1.537857.3.579.2. 594 1992 Unknown [id number] 2.16.840.1.917235.3.579.2. 594 1992 Unknown [id number] 2.16.840.1.065060.3.579.2. 594 1992 Unknown [id number] 2.16.840.1.019087.3.579.2. 594 1992 Unknown [id number] 2.16.840.1.546434.3.579.2. 594 1992 Unknown [id number] 2.16.840.1.032488.3.579.2. 594 1992 Unknown [id number] 2.16.840.1.024301.3.579.2. 594 1992 Unknown [id number] 2.16.840.1.764638.3.579.2. 594 1992 Unknown [id number] 2.16.840.1.042581.3.579.2. 594 1992 Unknown [id number] 2.16.840.1.738554.3.579.2. 594 1992 Unknown [id number] 2.16840.1.407562.3.579.2. 1259 1992 Unknown [id number] 2.16840.1.499089.3.579.2. 1259 1959 Unknown [id number] 1959 Unknown [id number] Social History Date Type Detail Facility Start: 10-28-2019 End: 09-11-2022 Tobacco smoking status NHIS Never smoked tobacco [facility] [place] [facility] Start: 10-28-2019 End: 09-11-2022 Tobacco use and exposure Smokeless tobacco non-user [facility] [place] [facility] Start: 10-28-2019 Alcohol intake Current drinker of alcohol (finding) [facility] [place] [facility] Start: 10-28-2019 History SDOH Alcohol Frequency 2 [facility] [place] [facility] Start: 10-28-2019 History SDOH Alcohol Comment rare wine [facility] [place] [facility] Start: 10-28-2019 Education 17 [facility] [place] [facility] Start: 1992 Sex Assigned At Not on file [facility] [place] [facility] Start: 11-08-2022 End: 09-09-2023 Alcohol intake Ex-drinker (finding) [facility] [place] [facility] Start: 10-28-2019 End: 10-20-2023 History of Social function [facility] [place] [facility] Start: 10-28-2019 End: 10-20-2023 Alcohol Use Disorder Identification Test - Consumption [AUDIT-C] [facility] [place] [facility] How often to you hav e a drink containing alcohol? Monthly or less [facility] [place] [facility] Average Number of Drinks Not on file [facility] [place] [facility] Start: 10-29-2019 Gender identity Identifies as female gender (finding) [facility] [place] [facility] Start: 10-29-2019 Sexual orientation Heterosexual (finding) [facility] Start: 02-14-2023 Tobacco Comment Never [facility] [place] [facility] Start: 02-14-2023 Alcohol Comment At most one or two drinks a month. [facility] [place] [facility] Start: 04-22-2023 End: 10-20-2023 Alcohol intake Not Asked [facility] Start: 08-07-2022 Alcohol Comment Occasional alcohol use [facility] Start: 1992 Sex Assigned At Female [facility] Medical Equipment Procedure Code Equipment Code Equipment [...] included. Medication Access Team coordinated the following [facility] PAC Clinics: MS/Neurology Prior Authorization Per the patient's insurance provider, Adrienne the prior authorization for LAMOTRIGINE 300 (on-label) was approved. Authorization number: [id number] Authorization start date: 11/14/23 Authorization end date: 11/12/24 Non-Specialty Prescriptions: 1, 20-25 min Namrata Tony [facility] [place] [facility] 11-19-2023 Miscellaneous Notes Images from the original note were not included. Medication Access Team coordinated the following [facility] PAC Clinics: MS/Neurology Prior Authorization Per the patient's insurance provider, Adrienne, the prior authorization for LAMOTRIGINE 300 (on-label) was approved. Authorization number: [id number] Authorization start date: 11/14/23 Authorization end date: 11/12/24 Non-Specialty Prescriptions: 1, 20-25 min Namrata Tony documented in this encounter [facility] [place] [facility] 11-14-2023 Telephone encounter Note Images from the original note were not included. *Documentation only- I did not speak with the patient. Received fax from [employer] stating PA is needed for Lamotrigine ER 300 mg tablets. Current auth expires 11/25/2023. [facility] [place] [facility] 11-14-2023 Miscellaneous Notes Images from the original note were not included. *Documentation only- I did not speak with the patient. Received fax from [employer] stating PA is needed for Lamotrigine ER 300 mg tablets. Current auth expires 11/25/2023. documented in this encounter [facility] [place] [facility] 08-21-2023 History of Present illness Narrative Reason [...] 24 hours. 2 Each 0 Prenat MV-Min w/Eq-Cvjfsq-BAK ( COMPLETE PO) Take 1 tablet by [...] AW Model ID Sentiva N1000 Serial # [id number] Implanted 03/27/2018 Communication Output Current Status Current [...] of questions or concerns. Cori Hernández DO Tire Repairer Department of Neurology, Epilepsy Division [facility] documented in this encounter [facility] [place] [facility] 08-21-2023 Instructions Cori Meek DO - 08/21/2023 [...] you can call the Neurology clinic at [phone]. If you have access through [facility] [employer], you can contact me through that system as well. documented in this encounter [facility] [place] [facility] 05-28-2023 History of Present illness Narrative Images from the original note were not included. Rowena Darke was seen in the [facility] [...] 24 hours. 2 Each 0 Prenat MV-Min w/Wn-Ubdchl-OUT ( COMPLETE PO) Take 1 tablet by [...] your epilepsy that we offer at the [facility]? Yes If you have tried 2 or 3 anti-seizure medications and your seizures are still not controlled, are you interested in learning about surgical options for your epilepsy that we can offer at the [facility]? No Neurological Disorders Depression Inventory for [...] 01/15/2023 Model Number 1000 1000 Serial Number [id number] Output Current (mA) 2.5 mA 2.25 mA [...] and continue maintenance dose of clobazam - VT ELEC HORACE IMPLT SMPL CN NPGT PRGRMG [...] 45 tablet; Refill: 2 Encouraged use of [employer] to send messages to provider as needed for questions and concerns or can call our clinic @ [phone]. She will return in [address] Hernández or sooner if clinically indicated. Signed, Riana Chinchilla MSN, SUPERVISOR WET ROOM-TUMBLER DYEING MACHINE OPERATOR [facility] Department of Neurology - Epilepsy Division [address] [place] [address] - 7th floor [place] [address] Pager: [phone] I spent a total of 35 minutes on the date of the service which included preparing to see the patient, qvcs-zn-bsui patient care, completing clinical documentation, performing a medically appropriate examination and counseling and educating the patient/family/caregiver. Note to patient: The 21st Century Cures Act makes medical notes like these available to patients in the interest of transparency. However, be advised this is a medical document. It is intended as vdfg-qs-qcix communication. It is written in medical language and may contain abbreviations or verbiage that are unfamiliar. It may appear blunt or direct. Medical documents are intended to carry relevant information, facts as evident, and the clinical opinion of the practitioner. documented in this encounter [facility] 04-22-2023 History of Present illness Narrative Reason [...] nursing note reviewed. Exam conducted with a power distributor present. Vitals: Estimated body mass index is [...] Donovan Burks DO documented in this encounter [facility] 02-14-2023 History of Present illness Narrative Images from the original note were not included. Rowena Byers was seen in the [facility] at [facility] on 02/14/2023. She is here today for a follow-up in clinic accompanied by her , Pedro. She was last seen on 04/19/[address] Cori Hernández DO and with de 11/08/2022. History of Present Illness INTERVAL HISTORY: [...] 24 hours. 2 Each 0 Prenat MV-Min w/Bj-Zjnotb-FHR ( COMPLETE PO) Take 1 tablet by [...] ID ABW Model ID SenTiva Serial # [id number] Implanted 01/15/2023 Communication OK Output Current Status [...] VNS Simple Reprogramming (1-3 changes) CPT code 75924 Assessment and Plan Assessment: Rowena is a [...] longer than 5 minutes. Encouraged use of [employer] to send messages to provider as needed for questions and concerns or can call our clinic @ [phone]. She will return in 3 months with me and [address] Hernández or sooner if clinically indicated. Signed, Riana Chinchilla MSN, SUPERVISOR WET ROOM-TUMBLER DYEING MACHINE OPERATOR [facility] Department of Neurology - Epilepsy Division [address] [place] [address] - 7th floor [place] [address] Pager: [phone] I spent a total of 34 minutes on the date of the service which included preparing to see the patient, kwzr-zx-fhls patient care, completing clinical documentation, performing a medically appropriate examination and counseling and educating the patient/family/caregiver. Note to patient: The Cures Act makes medical notes like these available to patients in the interest of transparency. However, be advised this is a medical document. It is intended as fjna-gc-tzvb communication. It is written in medical language and may contain abbreviations or verbiage that are unfamiliar. It may appear blunt or direct. Medical documents are intended to carry relevant information, facts as evident, and the clinical opinion of the practitioner. documented in this encounter [facility] [place] [facility] 02-14-2023 Instructions JETHRO Juan - 02/14/2023 4:00 [...] after regular office hours, a neurologist is automation controls expert for urgent issues. Call the neurology office number ([phone]) to reach the neurologist automation controls expert if you are continuing to experience many more seizures than usual despite use of your rescue medications. Please try to remember that the neurologist automation controls expert may not have access to your complete medical record and may not be as familiar with your history. If you have access through [employer] you can contact us through that system as well. If you have documents that need completed or sent to our clinic, please have them faxed to [phone]. It is always best to call during [...] the refill is ready for you to fern picker. Seizure First Aid Training Can Be Found Here (it's free!): [email or web address] nd documented in this encounter [facility] [place] [facility] 01-15-2023 Miscellaneous Notes [facility] OPERATIVE REPORT PATIENT NAME: Rowena Byers PROCEDURE DATE: 01/15/2023 PREOPERATIVE DIAGNOSIS: Drug-resistant epilepsy, Depleted pulse generator. POSTOPERATIVE DIAGNOSIS: Same. PROCEDURES: Replacement of left programmable pulse generator ([employer] Sentiva). SURGEON: Evy Verma MD. ASSISTANTS: Cotl Meadows MD. ANESTHESIA: General. INDICATIONS: The patient [...] The IPG had been interrogated by the senior outside sales representative from the vendor. The upper [...] the new IPG and secured with the jewel bearing maker's screwdriver. At this point, a website programmer was used to interrogate the new [...] VSS, anesthesia sign out completed. 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 SURGEON Surgeon(s) and Role: * Evy Verma MD - Primary ANESTHESIOLOGIST Anesthesiologist: Cydney Zavala MD BUCKLE SEWER: Geraldo Marion APRN-BUCKLE SEWER Student Nurse Tie Bucker: Chiquita Polanco SURGICAL STAFF Degree Clerk: Miki Gary RN; Linda Gilmore RN Relief Degree Clerk: Janet Carreon RN Scrub Person: Marielle Ibrahim Resident Assisting: Colt Meadows MD COMPLICATIONS None ESTIMATED BLOOD LOSS Minimal SPECIMENS No specimen sent * No specimens in log * Colt Meadows MD January 15, 2023 11:03 AM documented in this encounter [facility] [place] [facility] 01-15-2023 Nurse Note Pt and family were given AVS and verbalize understanding of instructions. Pt discharged via wheelchair. [facility] [place] [facility] 01-15-2023 Surgery Postoperative evaluation and management note [facility] OPERATIVE REPORT PATIENT NAME: Rowena Byers [...] The IPG had been interrogated by the senior outside sales representative from the vendor. The upper [...] the new IPG and secured with the jewel bearing maker's screwdriver. At this point, a website programmer was used to interrogate the new [...] entire procedure and performed the critical portions. [facility] 01-15-2023 Nurse Note Report called to RN SPR, VSS, anesthesia sign out completed. 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 SURGEON Surgeon(s) and Role: * Evy Verma MD - Primary ANESTHESIOLOGIST Anesthesiologist: Cydney Zavala MD BUCKLE SEWER: Geraldo Marion APRN-BUCKLE SEWER Student Nurse Tie Bucker: Chiquita Polanco SURGICAL STAFF Degree Clerk: Miki Gary RN; Linda Gilmore RN Relief Degree Clerk: Janet Carreon RN Scrub Person: Marielle Ibrahim Resident Assisting: Colt Meadows MD COMPLICATIONS None ESTIMATED BLOOD LOSS Minimal SPECIMENS No specimen sent * No specimens in log * Colt Meadows MD January 15, 2023 11:03 AM [facility] [place] [facility] 01-15-2023 Nurse Surgical operation note Report given to QUILLER OPERATOR. Patient transported to PACU with anesthesia on a cart and oxygen. [facility] 01-15-2023 Nurse Note Report given to QUILLER OPERATOR. Patient transported to PACU with anesthesia on a cart and oxygen. documented in this encounter [facility] [place] [facility] 01-15-2023 Hospital Discharge instructions Colt Meadows MD - 01/15/2023 9:30 AM EST Discharge Instructions for DBS Surgery & Battery Placement Surgery Here are some general guidelines to assist you in your recovery at home. Please do not hesitate to call us with any questions or concerns you may have. We can be reached at [phone]. Your appointmentS will be in the Neuromodulation clinic in [address] Incision Care: If you have a [...] 101 degrees F documented in this encounter [facility] 01-15-2023 History and physical note PERIOPERATIVE [...] by Evy Verma MD, 01/15/2023, 9:08 AM. [facility] [place] [facility] Work Phone: 01-15-2023 History and physical note [...] 01/15/2023, 9:08 AM. documented in this encounter [facility] [place] [facility] 01-09-2023 History and physical note Images from the original note were not included. History of Present Illness Ms. Byers is a 32 y.o. female [facility] her medical condition of [...] 10 mg in 24 hours. Prenat MV-Min w/Es-Stuako-STW ( COMPLETE PO) Take 1 tablet by [...] % ointment HCG QUALITATIVE, URINE Pulse Ox VT ECG, CLINIC PERFORMED Lab A/P - Labs [...] patient has been medically OPTIMIZED FOR SURGERY. [facility] Perioperative Clinic [facility] [address] [facility] Review of Systems (OSUROS)Review of Systems Constitutional: [...] GENERATOR CRANIAL NERVE (EG VAGUS) OPEN last 2019 Patient Care Team: Tim Rolon DO as PCP - General (Internal Medicine) Riana Chinchilla APRN-TUMBLER DYEING MACHINE OPERATOR (Certified Nurse Practitioner) Family History Problem Relation Age of Onset Prostate Cancer Maternal Grandfather Mental Illness Maternal Grandmother Depression , Anxiety Prostate Cancer Paternal Grandfather Cancer- Other Paternal Grandfather Diabetes Paternal Uncle Social History Socioeconomic History Marital status: Highest education level: Bachelor's degree (e.g., BA, AB, BS) 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 Prenat MV-Min w/Hc-Cvnyho-KHB ( COMPLETE PO) Take 1 tablet by [...] % ointment HCG QUALITATIVE, URINE Pulse Ox VT ECG, CLINIC PERFORMED Lab A/P - Labs [...] patient has been medically OPTIMIZED FOR SURGERY. 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 She takes Lamictal for treatment 4. Striper Spray Gun--patient states she is actively trying to get . Will check hCG today and on day of surgery. Patient understands that surgery may be cancelled if she is . Anesthesia Assessment:No contraindications to planned surgery. Pending review of the patient's labs.ECG reviewed. Whitney Ward MD [facility] documented in this encounter [facility] 01-09-2023 Instructions Robyn CASSIE Dempsey - 01/09/2023 [...] take Herbal Medication (including multi-vitamin, fish oil ([place]urd[place]-3), garlic, Glucosamine - Chondroitin ,gingko, ginseng, Vitamin [...] site one week prior to surgery. - [place] your teeth and rinse your mouth the morning of surgery. - Do NOT bring your dentures or partials with you into surgery. They may be lost. Give them to someone to bring to you after surgery. If you are unable to complete your scheduled testing or appointments made by [facility] please contact [facility] at [phone]. Failure to do so could delay or [...] surgery, please notify our team immediately at [phone]. - If you have Sleep apnea and have a CPAP or BIPAP, then bring your CPAP mask and machine with you to the hospital. Please contact Medical Information Management Department for all records requests. [phone] Puma/mateo documented in this encounter [facility] 12-10-2022 History of Present illness Narrative [...] that were dedicated to clinical evaluation, including mmim-bn-xwjj time; counseling and education; chart completion; reviewing [...] aspirin, excedrin, plavix), multivitamins/minerals/herbal supplements (such as [place]-3, garlic, Glucosamine - Chondroitin, gingko, ginseng, Vitamin E, fish oil, etc), non-steroidal anti-inflammatory medications (NSAIDs) (such as Ibuprofen/Motrin/Advil, Aleve, Celebrex) for 10 days prior to surgery, as these are blood thinners. She was advised that Tylenol is the preferred option for pain. She stated understanding. documented in this encounter [facility] 11-08-2022 History of Present illness Narrative Images [...] ID AW Model ID SenTiva Serial # [id number] Implanted 03/27/2018 Communication OK Output Current Status [...] VNS Simple Reprogramming (1-3 changes) CPT code 31716 Assessment and Plan Assessment: Rowena is a [...] would like to wait Encouraged use of [employer] to send messages to provider as needed for questions and concerns or can call our clinic @ [phone]. She will return in 2 months or sooner if clinically indicated. Signed, Rinaa Chinchilla MSN, SUPERVISOR WET ROOM-TUMBLER DYEING MACHINE OPERATOR [facility] Department of Neurology - Epilepsy Division [address] [place] [address] - 7th floor [place] [address] Pager: [phone] I spent a total of 46 minutes on the date of the service which included preparing to see the patient, qgdu-ya-feyp patient care, completing clinical documentation, performing a medically appropriate examination and counseling and educating the patient/family/caregiver. Note to patient: The Century Cures Act makes medical notes like these available to patients in the interest of transparency. However, be advised this is a medical document. It is intended as gjfl-vb-jmwl communication. It is written in medical language and may contain abbreviations or verbiage that are unfamiliar. It may appear blunt or direct. Medical documents are intended to carry relevant information, facts as evident, and the clinical opinion of the practitioner. documented in this encounter [facility] 11-08-2022 Instructions JETHRO Juan - 11/08/2022 4:20 [...] ID AW Model ID SenTiva Serial # [id number] Implanted 03/27/2018 Communication OK Output Current Status OK Current Delivered 1.75 Lead Impedance OK Impedance Value 2903 IFI NO Average # of Inhibited Auto stimulations Daily Avg. Stim % Per Day %Therapy Normal 843.56 AutoStim 26.89 Magnet 0.04 Total 870.50 documented in this encounter [facility] 07-04-2021 Instructions JETHRO Juan - 07/04/2021 9:06 AM EDT Drug name: Depakote ER Pill strength: 250 mg Drug name: Vimpat Pill strength: 100 mg Week 1 Start: 1 tablet in the evening 1/2 tab in the morning, 1/2 tab in the evening Week 2 Start: STOP 1 tablet twice daily and continue Follow up in 4-6 weeks with Riana documented in this encounter [facility] 07-04-2021 History of Present illness Narrative Images from the original note were not included. Rowena Byers was seen in the [facility] at [facility] on 07/04/2021. She is here today for a follow-up accompanied by her fiabigail Vasquez. 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 Encouraged use of [employer] to send messages to provider as needed for questions and concerns or can call our clinic @ [phone]. She will return in 6 weeks and 3 months with me and [address] Hernández or sooner if clinically indicated. Signed, Riana Chinchilla MSN, SUPERVISOR WET ROOM-TUMBLER DYEING MACHINE OPERATOR [facility] Department of Neurology - Epilepsy Division [address] [place] [address] - 7th floor [place] [address] Pager: [phone] Time to complete visit: I spent approximately 38 minutes reviewing the chart prior to the appointment, in face to face counseling with the patient, and with documentation after the visit. 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 [facility] Diagnosis Jeavons syndrome- Primary [facility] Diagnosis Jeavons syndrome- Primary [facility] Diagnosis Jeavons syndrome Jeavons syndrome [facility] Diagnosis Preop exam for internal medicine- Primary Other specified pre-operative examination 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 Other postprocedural status Jeavons syndrome [facility] 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 Other postprocedural status documented in this encounter [facility] Diagnosis Encounter for fertility planning documented in this encounter [facility]* Diagnosis Jeavons syndrome- Primary Anxiety disorder, unspecified type [facility] Diagnosis Onset Date Resolution Status Maxillary sinusitis acute [facility] Work Phone: Evaluation note* Diagnosis Jeavons syndrome- Primary Anxiety disorder, unspecified type [facility] Diagnosis Onset Date Resolution Status Maxillary sinusitis acute Maxillary sinusitis [facility] Work Phone: Reason for referral (narrative)* Consultation (Routine) - New Request Specialty Diagnoses / Procedures Referred By Rainer ramos Referred To Contact Neurologic Surgery Diagnoses Jeavons syndrome Evy Verma MD [address] [place] [address] Referral ID Status Reason Start Date Expiration Date V isits Requested Visits Authorized [id number] New Request 12/10/2022 01/04/2024 1 1 [facility] Summary Purpose Family History Relationship Condition Age at Onset Recorded Date/T jorge grandparent Malignant neoplasm Unknown Advance Directives Advance Directive Response Recorded Date/ Time Advance Directives No July 06 12:12pm Reason for Referral Specialty Diagnoses / Procedures Referred By Rainer ramos Referred To Contact Diagnoses Generalized nonconvulsive epilepsy Riana Chinchilla, SUPERVISOR WET ROOM-TUMBLER DYEING MACHINE OPERATOR [address] [place] [address] Referral ID Status Reason Start Date Expiration Date V isits Requested Visits Authorized [id number] Pending Review 1 1 Specialty Diagnoses / Procedures Referred By Rainer ramos Referred To Contact Procedures DVT/VTE RISK ASSESSMENT Evy Verma MD [address] [place] [address] Referral ID Status Reason Start Date Expiration Date V isits Requested Visits Authorized [id number] New Request 01/15/2023 02/09/2024 1 1 Chief Complaint and Reason for Visit Chief Complaint sinus infection Reason for Visit Maxillary sinusitis Chief Complaint sinus infection sinus infection Reason for Visit Maxillary sinusitis Maxillary sinusitis Additional Source Comments INFORMATION SOURCE (unrecogn ized section and content) DATE CREATED AUTHOR 09/03/2017 [facility] DATE CREATED AUTHOR AUTHOR'S ORGANIZ ATION 03/28/2018 [facility] DATE CREATED AUTHOR AUTHOR'S ORGANIZ ATION 07/02/2018 [facility] DATE CREATED AUTHOR AUTHOR'S ORGANIZ ATION 10/02/2019 [facility] DATE CREATED AUTHOR AUTHOR'S ORGANIZ ATION 06/01/2022 [facility] DATE CREATED AUTHOR AUTHOR'S ORGANIZ ATION 04/24/2023 [facility] DATE CREATED AUTHOR AUTHOR'S ORGANIZ ATION 08/23/2023 [facility] DATE CREATED AUTHOR AUTHOR'S ORGANIZ ATION 10/21/2023 [facility] Reason for Visit (unrecogniz ed section and content) Reason Comments Follow-up Reason Comments Follow-up Reason Comments New Patient 32 y.o female here f or consult. Specialty Diagnoses / Procedures Referred By Rainer t Referred To Contact Neurologic Surgery Diagnoses Jeavons syndrome S/P placement of VNS (vagus nerve stimulation) device Riana Chinchilla, SUPERVISOR WET ROOM-TUMBLER DYEING MACHINE OPERATOR [address] [place] [address] Referral ID Status Reason Start Date Expiration Date V isits Requested Visits Authorized [id number] New Request 09/19/2022 10/14/2023 1 1 Reason Comments Preoperative Assessment Specialty Diagnoses / Procedures Referred By Contac t Referred To Contact Neurologic Surgery Diagnoses Jeavons syndrome Evy Verma MD [address] [place] [phone] Referral ID Status Reason Start Date Expiration Date V isits Requested Visits Authorized [id number] New Request 12/10/2022 01/04/2024 1 1 Specialty Diagnoses / Procedures Referred By Contac t 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] Procedures VT IMP STIM,CRANIAL,SUBQ,1 ARRAY INSERTION REPLACEMENT NEUROSTIMULATOR GENERATOR CRANIAL/INTRACRANIAL Evy Verma MD [address] [place] [phone] [facility] [address] [place] [address] Referral ID Status Reason Start Date Expiration Date Visits Re quested Visits Authorized [id number] 1 1 Reason Comments Infertility Reason Onset Date Comments Insurance 11/14/2023 Lamotrigine ER Reason Onset Date Comments Insurance 11/19/2023 Care Teams (unrecognized sec tion and content) Character Impersonator Relationship Specialty Start Date End Date Tim Rolon DO [address] [place] [address] PCP - General Internal Medicine 09/19/22 Riana Chinchilla, SUPERVISOR WET ROOM-TUMBLER DYEING MACHINE OPERATOR [address] [place] [phone] Certified Nurse Practitioner 11/08/22 Character Impersonator Relationship Specialty Start Date End Date Tim Rolon DO [address] [place] [address] PCP - General Internal Medicine 09/19/22 Riana Chinchilla, SUPERVISOR WET ROOM-TUMBLER DYEING MACHINE OPERATOR [address] [place] [phone] Certified Nurse Practitioner 11/08/22 Character Impersonator Relationship Specialty Start Date End Date Tim Rolon [address] [place] [address] PCP - General Internal Medicine 09/19/22 Riana Chinchilla, SUPERVISOR WET ROOM-TUMBLER DYEING MACHINE OPERATOR [address] [place] [phone] Certified Nurse Practitioner 11/08/22 Character Impersonator Relationship Specialty Start Date End Date Tim RolonDO [address] [place] [address] PCP - General Internal Medicine 09/19/22 Riana Chinchilla, SUPERVISOR WET ROOM-TUMBLER DYEING MACHINE OPERATOR [address] [place] [phone] Certified Nurse Practitioner 11/08/22 Character Impersonator Relationship Specialty Start Date End Date Tim Rolon [address] [place] [address] PCP - General Internal Medicine 09/19/22 Riana Chinchilla, SUPERVISOR WET ROOM-TUMBLER DYEING MACHINE OPERATOR [address] [place] [phone] Certified Nurse Practitioner 11/08/22 Character Impersonator Relationship Specialty Start Date End Date Tim Rolon [address] [place] [address] PCP - General Internal Medicine 09/19/22 Riana Chinchilla APRN-TUMBLER DYEING MACHINE OPERATOR [address] [place] [address] Certified Nurse Practitioner 11/08/22 Character Impersonator Relationship Specialty Start Date End Date Tim Rolon MD [address] [place] [address] PCP - General Internal Medicine 08/08/22 Character Impersonator Relationship Specialty Start Date End Date Tim Rolon DO [address] [place] [address] PCP - General Internal Medicine 09/19/22 Riana Chinchilla APRN-TUMBLER DYEING MACHINE OPERATOR [address] [phone] Certified Nurse Practitioner 11/08/22 Team [...] End: July 07, 2023 Kristine Oneill APRN ENVIRONMENTAL INSPECTOR-C Attending Provider Act duncan Start: July 07, 2023 End: July 07, 2023 Character Impersonator Relationship Specialty Start Date End Date Tim Rolon DO [address] [place] [phone] PCP - General Internal Medicine 09/19/22 Riana Chinchilla APRN-TUMBLER DYEING MACHINE OPERATOR [address] [phone] Certified Nurse Practitioner 11/08/22 Team Status: Active [...] End: September 24, 2023 Kristine Oneill APRN ENVIRONMENTAL INSPECTOR-C Attending Provider Act duncan Start: September 24, 2023 End: September 24, 2023 Character Impersonator Relationship Specialty Start Date End Date Tim Rolon DO [address] [place] [address] PCP - General Internal Medicine 09/19/22 Riana Chinchilla APRN-TUMBLER DYEING MACHINE OPERATOR [address] [phone] Certified Nurse Practitioner 11/08/22 Character Impersonator Relationship Specialty Start Date End Date Tim Rolon MD [address] [place] [address] PCP - General Internal Medicine 08/08/22 Scheduled [...] - Comment: mixed 1:1 w/Lido with epi 1:[id number]) ceFAZolin (ANCEF) 2 g in dextrose 100 mL premix IVPB (COMPLETED) 2 g, Intravenous, Administer over 30 Minutes, CORRECTIONAL MANAGER TO PROCEDURE, 1 dose, Starting on Fri01/15/23 at 0758, Until Discontinued, Other, Surgical Prophylaxis, Initiate antibiotic administration 30-60 minutes prior to surgical incision and complete administration prior to surgical incision., Pre-op/Pre-Proc 0955 (Given - Provid er: Geraldo Marion APRN-BUCKLE SEWER) lidocaine-epinephrine 2 %-1:750224 injection (CANCELED) NEEDED, Starting on Fri01/15/23 at [...] Order-specific weight), Intravenous, Administer over 1 Hours, CORRECTIONAL MANAGER TO PROCEDURE, 1 dose, Starting on Fri01/15/23 [...] BE BASED ON THE PRIMARY CLINICAL RECORDS. [employer] [facility]. provides no warranty or guarantee of the accuracy or completeness of information in this document.
[2024-02-19 08:10] LABS: Progesterone 21.2 ng/mL (.)
== END 2024-02-18 10:52 | disposition home or self-care (01) ==
LOC: LAB 10:51
PROVIDERS: PCP Internal Medicine; Visit Provider Obstetrics & Gynecology
DX: N97.0 Female infertility associated with anovulation (principal)
CPT/HCPCS: 36415; 84144

== ENCOUNTER 2024-05-26 16:51 | Outpatient (OUT) | payer OTHER, SELFPAY ==
--- OUTSIDE RECORDS SUMMARY | 2024-05-26 16:54 | XMS_ITS | CCD ---
Author Organization [facility] CliniSyde Care Team Providers Care Manager Research Name Role Phone JAMIL SMITH Referring Unavailable [...] Unavailable Tim Rolon DO Primary Care Provider [phone] Raoul FINGER GRIP MACHINE OPERATOR-Riana LALA Unavailable Tim Rolon MD Primary Care [...] Care Unavailable CORI HERNÁNDEZ Attending Unavailable Raoul FINGER GRIP MACHINE OPERATOR-SECURITY INCIDENT HANDLER, Riana Gordillo Unavailable DONOVAN BURKS Attending Unavailable MADONNA PARSONS Attending Unavailable DONOVAN BURKS Attending Unavailable Allergies Allergy Classification Reported Allergen(s) Allergy Type Date of Onset Reaction(s) Facility (11 sources) Seasonal allergy Propensity to adverse reactions to drug 7 Runny Nose, Congestion [facility] Work Phone: (6 sources) Pollen Propensity to adverse reactions 7 Runny nose [facility] (6 sources) Other Propensity to adverse reactions 2 Runny nose [facility] Medications Current Medications Medication Drug Class(es) [...] mg / cholecalciferol 500 unt oral capsule (6 sources) Vitamin D Start: 2023 Calcium Carb-Cholecalciferol 600-12.5 MG-MCG capsule 07/07/2023 Active cloBAZam 20 mg oral tablet (20 sources) Benzodiazepine Start: 2022 End: 2024 take [...] dinner). 30 tablet 5 04/30/2021 04/30/2022 Active clomiPHENE citrate 50 mg oral tablet (1 source) Estrogen Agonist/Antagonist Start: 01-29-2024 Clomid 50 MG tablet Indications: Female infertility , Anovulation TAKE 1 TABLET BY MOUTH DAILY FOR 5 DAYS ON DAYS 3-7 OF CYCLE 5 tablet 01/29/2024 Active docosahexaenoic acid 200 mg oral capsule (2 sources) Start: 07-07-2023 Docosahexaenoic Acid ( Dha) 200 mg capsule Active MG PO July 07, 2023 12:00am doxycycline monohydrate 100 mg oral tablet (1 source) Tetracycline-class Drug Start: 09-24-2023 take 100 mg by mouth twice daily Doxycycline Monohydrate Active 100 MG PO Twice daily 27 12September 24, 2023 12:00am escitalopram 20 mg oral tablet (5 sources) Serotonin Reuptake Inhibitor Start: 04-30-2021 take 1 tablet by mouth once daily at dinner escitalopram 20 MG tablet Indications: Seizure disorder Take 1 tablet by mouth Daily (with dinner). 30 tablet 11 04/30/2021 Active folic acid 1 mg oral tablet (19 sources) Start: 07-07-2023 take 1 mg by [...] 08/21/2023 Discontinued loratadine 10 mg oral tablet (15 sources) take 1 tablet by mouth every twenty-four hours as needed loratadine (Claritin) 10 MG tablet Take 10 mg by mouth Daily as needed Active 12 hr loratadine 5 mg / pseudoephedrine sulfate 120 mg extended release oral tablet (6 sources) alpha-Adrenergic Agonist take 1 tablet by mouth once in the morning, then take 1 tablet by mouth every twelve hours at bedtime loratadine-pseudo ephedrine ER (Claritin-D 12-hour) 5-120 MG 12 hr tablet Take 1 tablet by mouth in the morning and 1 tablet before bedtime. Do not crush, chew, or split. . Active LORazepam 0.5 mg oral tablet (15 sources) Benzodiazepine Start: take 0.5 mg by [...] Indications: Difficulty falling asleep at night until branch associate teller hours TAKE 1 TABLET BY MOUTH EVERYDAY AT BEDTIME 90 tablet 2 03/22/2022 02/14/2023 Discontinued Melatonin 5 MG C hew Tab Chew 1 tablet at bedtime as needed. Active metFORMIN hydrochloride 500 mg oral tablet (20 sources) Biguanide Start: 07-07-2023 take 500 mg by mouth once daily Metformin Active 500 MG PO Daily July 07, 2023 12:00am Start: 05-13-2023 take 1 tablet by josh th once daily at dinner metFORMIN XR (Glucophage-XR) [...] Vitamins-Minerals ( CULTURELLE PROBIOTICS + MULTIV PO) (6 sources) Multiple Vitamin s-Minerals (CULTURELLE PROBIOTICS + MULTIV PO) Take by mouth Active Multiple Vitamin s-Minerals (CULTURELLE PROBIOTICS + MULTIV PO) Take by mouth 0 Active Prenat MV-Min w/Rm-Fblxjy-SD A ( COMPLETE PO) (8 sources) take 1 tablet by josh th once at bedtime Prenat MV-Min w/Nn-Iccwkc-FUK ( COMPLETE PO) Take 1 tablet by mouth at bedtime. Active take 1 tablet by mouth once at b edtime Prenat MV-Min w/Ec-Typekq-GCD ( COMPLETE PO) Take 1 tablet by mouth at bedtime. 0 Active MV-Min-Fe Fum-FA-DH A ( 1 PO) (6 sources) MV-Min- Fe Fum-FA-DHA ( 1 PO) [...] SYNDROME] Onset: 05-23-2022 Chronic Other endocrine disorders (6 sources) Polycystic ovary syndrome; Translations: [Polycystic ovarian [...] Reference Range Facility ALL PROGESTERONEon 4 PROGESTERONE 21.2 ng/mL . [facility] Comment on above: Follicular phase 0.1 - 0.9 Luteal phase 1.8 - 23.9 Ovulation phase 0.1 - 12.0 First trimester 11.0 - 44.3 Second trimester 25.4 - 83.3 Third trimester 58.7 - 214.0 Postmenopausal 0.0 - 0.1 Performed at: [address] [id number] Annual Giving Director: Ino Dougherty PhD, Phone: [phone] [facility] ALL PROGESTERONEon 4 PROGESTERONE 25.4 ng/mL . [facility] Comment on above: Follicular phase 0.1 - 0.9 Luteal phase 1.8 - 23.9 Ovulation phase 0.1 - 12.0 First trimester 11.0 - 44.3 Second trimester 25.4 - 83.3 Third trimester 58.7 - 214.0 Postmenopausal 0.0 - 0.1 Performed at: [address] [id number] Annual Giving Director: Ino Dougherty PhD, Phone: [phone] [facility] ALL PROGESTERONEon 4 PROGESTERONE 19.7 ng/mL . [facility] Comment on above: Follicular phase 0.1 - 0.9 Luteal phase 1.8 - 23.9 Ovulation phase 0.1 - 12.0 First trimester 11.0 - 44.3 Second trimester 25.4 - 83.3 Third trimester 58.7 - 214.0 Postmenopausal 0.0 - 0.1 Performed at: [address] [id number] Annual Giving Director: Ino Dougherty PhD, Phone: [phone] [facility] ALL PROGESTERONEon 4 PROGESTERONE 20.0 ng/mL . [facility] Comment on above: Follicular phase 0.1 - 0.9 Luteal phase 1.8 - 23.9 Ovulation phase 0.1 - 12.0 First trimester 11.0 - 44.3 Second trimester 25.4 - 83.3 Third trimester 58.7 - 214.0 Postmenopausal 0.0 - 0.1 Performed at: [address] [id number] Annual Giving Director: Ino Dougherty PhD, Phone: [phone] [facility] Serum or plasma progesterone measurement (mass/volume)on 09-11-2023 Progesterone [Mass/Vol] 12.9 ng/mL . [facility] Comment on above: Follicular phase 0.1 - 0.9 Luteal phase 1.8 - 23.9 Ovulation phase 0.1 - 12.0 First trimester 11.0 - 44.3 Second trimester 25.4 - 83.3 Third trimester 58.7 - 214.0 Postmenopausal 0.0 - 0.1Performed at: [facility] Center[facility]or[facility] [place], [place] [id number] Director: Ino Dougherty PhD, Phone: [phone] Serum or plasma progesterone measurement (mass/volume)on 08-08-2023 Progesterone [Mass/Vol] 11.3 ng/mL . [facility] Comment on above: Follicular phase 0.1 - 0.9 Luteal phase 1.8 - 23.9 Ovulation phase 0.1 - 12.0 First trimester 11.0 - 44.3 Second trimester 25.4 - 83.3 Third trimester 58.7 - 214.0 Postmenopausal 0.0 - 0.1Performed at: [facility] HillFlyydq[address] [place], [place] [id number] Director: Ino Dougherty PhD, Phone: [phone] Serum or plasma progesterone measurement (mass/volume)on 07-09-2023 Progesterone [Mass/Vol] 16.6 ng/mL . [facility] Comment on above: Follicular phase 0.1 - 0.9 Luteal phase 1.8 - 23.9 Ovulation phase 0.1 - 12.0 First trimester 11.0 - 44.3 Second trimester 25.4 - 83.3 Third trimester 58.7 - 214.0 Postmenopausal 0.0 - 0.1Performed at: [facility] CenterEbmdqz95[address] [place], [place] [id number] Director: Ino Dougherty PhD, Phone: [phone] No Panel Informationon 06-26 Human Chorionic Gonadotropin, Quant <1 mIU/mL [facility] Comment on above: 5-50 0.2-1 [id number] 0 1-2 LUSQN292-6,000 2-3 CKWCQ367-26,000 3-4 WEEKS1,000-50,000 4-5 WEEKS10,000-100,000 5-6 WEEKS15,000-200,000 6-8 WEEKS10,000-100,000 2-3 MONTHS Serum or plasma progesterone measurement (mass/volume)on 06-08-2023 Progesterone [Mass/Vol] 20.7 ng/mL . [facility] Comment on above: Follicular phase 0.1 - 0.9 Luteal phase 1.8 - 23.9 Ovulation phase 0.1 - 12.0 First trimester 11.0 - 44.3 Second trimester 25.4 - 83.3 Third trimester 58.7 - 214.0 Postmenopausal 0.0 - 0.1Performed at: [place], [place] [id number] Director: Ino Dougherty PhD, Phone: [phone] Laboratory - Chemistry and C hemistry - challengeon 05-09-2023 Free T4 [Mass/Vol] 0.77 ng/dL 0.76-1.46 [facility] No Panel Informationon 05-08 Free Triiodothyronine 2.78 pg/mL 2.18-3.98 [facility] Serum or plasma progesterone measurement (mass/volume)on 05-09-2023 Progesterone [Mass/Vol] 19.3 ng/mL . [facility] Comment on above: Follicular phase 0.1 - 0.9 Luteal phase 1.8 - 23.9 Ovulation phase 0.1 - 12.0 First trimester 11.0 - 44.3 Second trimester 25.4 - 83.3 Third trimester 58.7 - 214.0 Postmenopausal 0.0 - 0.1Performed at: [place], [place] [id number] Director: Ino Dougherty PhD, Phone: [phone] BETA HCG, URINE (POC DEVICE) on 01-15-2023 Beta HCG ( test) Ql (U) Negative Negative [facility] Interpretation and review of laboratory results Normal [facility] Test performed at address of the patient encounter. [facility] CARDIAC RHYTHM (SCANNED)on 03-17-2022 [facility] CBC AND ELECTRONIC DIFFon Basophils (Bld) [#/Vol] 0.05 10*3/uL 0.00 - 0.15 K/uL [facility] Basophils/100 WBC (Bld) 0.5 % [facility] Differential cell count method Nom (Bld) Electronic Differential [facility] Eosinophils (Bld) [#/Vol] 0.12 10*3/uL 0. 00 - 0.42 K/uL [facility] Eosinophils/100 WBC (Bld) 1.2 % [facility] Erythrocyte distribution width (RBC) [Ratio] 13.1 % 10.8 - 14.9 % [facility] Hematocrit (Bld) [Volume fraction] 42.5 % 34.9 - 44.3 % [facility] Hemoglobin (Bld) [Mass/Vol] 14.3 g/dL 11.4 - 15.2 g/dL [facility] Immature granulocytes (Bld) [#/Vol] K/uL NINF - 0.08 K/uL [facility] Immature granulocytes/100 WBC (Bld) 0.3 % [facility] Lymphocytes (Bld) [#/Vol] 3.42 10*3/uL 1. 16 - 3.51 K/uL [facility] Lymphocytes/100 WBC (Bld) 32.9 % [facility] MCH (RBC) [Entitic mass] 31.1 pg 25. 9 - 33.[address] [facility] MCHC (RBC) [Mass/Vol] 33.6 g/dL 31.4 - 35.9 g/dL [facility] MCV (RBC) [Entitic vol] 92.4 fL 79.6 - 97.[address] [facility] Monocytes (Bld) [#/Vol] 0.62 10*3/uL 0.22 - 0.87 K/uL [facility] Monocytes/100 WBC (Bld) 6.0 % [facility] Neutrophils (Bld) [#/Vol] 6.14 10*3/uL 1. 64 - 7.28 K/uL [facility] Nucleated RBC/100 WBC (Bld) [Ratio] 0.0 % [facility] Platelet mean volume (Bld) [Entitic vol] 10.8 fL 8.5 - 12.[address] [facility] Platelets (Bld) [#/Vol] 326 10*3/uL 150 - 393 K/uL [facility] RBC (Bld) [#/Vol] 4.60 10*6/uL [facility] Segmented neutrophils/100 WBC (Bld) 59.1 % [facility] WBC (Bld) [#/Vol] 10.38 10*3/uL 3.99 - 11 .19 K/uL [facility] Basophils (Bld) [#/Vol] 0.05 10*3/uL Normal 0.00-0.15 [facility] Comment on above: Performed By: #### L [id number] #### [facility] (DEFAULT) [address] [place] [address] Basophils/100 WBC (Bld) 0.5 % Normal [facility] Comment on above: Performed By: #### L [id number] #### [facility] (DEFAULT) [address] [place] [address] DIFF STATUS Electronic Differential Normal [facility] Comment on above: Performed By: #### L [id number] #### [facility] (DEFAULT) [address] [place] [address]321 Eosinophils (Bld) [#/Vol] 0.12 10*3/uL Normal 0.00-0.4 2 [facility] Comment on above: Performed By: #### L [id number] #### [facility] (DEFAULT) [address] [place] [address] Eosinophils/100 WBC (Bld) 1.2 % Normal [facility] Comment on above: Performed By: #### L [id number] #### [facility] (DEFAULT) [address] [place] [address] 29393 Hematocrit (Bld) [Volume fraction] 42.5 % Normal 34.9-44.3 [facility] Comment on above: Performed By: #### L [id number] #### [facility] (DEFAULT) [address] [place] [address] 50494 Hemoglobin (Bld) [Mass/Vol] 14.3 g/dL Normal 11.4-15.2 [facility] Comment on above: Performed By: #### L [id number] #### [facility] (DEFAULT) [address] [place] [address] 32641 Immature Grans % 0.3 % Normal [facility] Comment on above: Performed By: #### L [id number] #### [facility] (DEFAULT) [address] [place] [address]4961 Immature Grans Absolute < Normal <=0.08 [facility] Comment on above: Performed By: #### L [id number] #### [facility] (DEFAULT) [address] [place] [address] 78190 Lymphocytes (Bld) [#/Vol] 3.42 10*3/uL Normal 1.16-3.5 1 [facility] Comment on above: Performed By: #### L [id number] #### [facility] (DEFAULT) [address] [place] [address] 89671 Lymphocytes/100 WBC (Bld) 32.9 % Normal [facility] Comment on above: Performed By: #### L [id number] #### [facility] (DEFAULT) [address] [place] [address] 89742 MCV (RBC) [Entitic vol] 92.4 fL Normal 79.6-97.7 [facility] Comment on above: Performed By: #### L [id number] #### [facility] (DEFAULT) [address] [place] [address] 73033 Mean Cell Hgb 31.1 pg Normal 25.9-33.9 [facility] Comment on above: Performed By: #### L [id number] #### [facility] (DEFAULT) [address] [place] [address] 16583 Mean Cell Hgb Conc 33.6 g/dL Normal 31.4-35.9 [facility] Comment on above: Performed By: #### L [id number] #### [facility] (DEFAULT) [address] [place] [address] 67933 Monocytes (Bld) [#/Vol] 0.62 10*3/uL Normal 0.22-0.87 [facility] Comment on above: Performed By: #### L [id number] #### [facility] (DEFAULT) [address] [place] [address] 59280 Monocytes/100 WBC (Bld) 6.0 % Normal [facility] Comment on above: Performed By: #### L [id number] #### [facility] (DEFAULT) [address] [address] Nucleated RBC 0.0 /100 WBC Normal <=0.2 [facility] Comment on above: Performed By: #### L [id number] #### [facility] (DEFAULT) [address] [place] [address]4417 Platelet mean volume (Bld) [Entitic vol] 10.8 fL Normal 8.5-12.2 [facility] Comment on above: Performed By: #### L [id number] #### [facility] (DEFAULT) [address] [address] Platelets (Bld) [#/Vol] 326 10*3/uL Normal 150-393 [facility] Comment on above: Performed By: #### L [id number] #### [facility] (DEFAULT) [address] [address] RBC (Bld) [#/Vol] 4.60 10*6/uL Normal 3.91-5.04 [facility] Comment on above: Performed By: #### L [id number] #### [facility] (DEFAULT) [address] [address] RBC Distribution 13.1 % Normal 10.8-14.9 [facility] Comment on above: Performed By: #### L [id number] #### [facility] (DEFAULT) [address] [place] [address] 10194 Segs + Bands Auto 59.1 % Normal [facility] Comment on above: Performed By: #### L [id number] #### [facility] (DEFAULT) [address] [place] [address] 60644 Segs + Bands,Absolute Auto 6.14 K/uL Normal 1.64-7.28 [facility] Comment on above: Performed By: #### L [id number] #### [facility] (DEFAULT) [address] [place] [address] 57931 WBC (Bld) [#/Vol] 10.38 10*3/uL Normal 3.99-11.19 [facility] Comment on above: Performed By: #### L [id number] #### [facility] (DEFAULT) [address] [place] [address]2053 CMPN WITHOUT GLUCOSEon 01-09 Albumin [Mass/Vol] 4.9 g/dL Normal 3.5-5.0 [facility] Comment on above: Performed By: #### C MPNG #### [facility] (DEFAULT) [address] [place] [address] 37857 ALP [Catalytic activity/Vol] 35 U/L Normal 32-126 [facility] Comment on above: Performed By: #### C MPNG #### [facility] (DEFAULT) [address] [place] [address] 39735 ALT [Catalytic activity/Vol] 19 U/L Normal 9-48 [facility] Comment on above: Performed By: #### C MPNG #### [facility] (DEFAULT) [address] [place] [address] 07490 Anion gap [Moles/Vol] 13 mmol/L Normal 7-17 [facility] Comment on above: Performed By: #### C MPNG #### [facility] (DEFAULT) [address] [place] [address] 63512 AST [Catalytic activity/Vol] 18 U/L Normal 10-39 [facility] Comment on above: Performed By: #### C MPNG #### [facility] (DEFAULT) [address] [place] [address] 34923 Bilirubin [Mass/Vol] 0.3 mg/dL Normal <1.5 [facility] Comment on above: Performed By: #### C MPNG #### [facility] (DEFAULT) [address] [place] [address] 94535 Calcium [Mass/Vol] 9.2 mg/dL Normal 8.6-10.5 [facility] Comment on above: Performed By: #### C MPNG #### [facility] (DEFAULT) [address] [place] [address] 89090 Chloride [Moles/Vol] 102 mmol/L Normal 98-108 [facility] Comment on above: Performed By: #### C MPNG #### [facility] (DEFAULT) [address] [place] [address] 83510 CO2 [Moles/Vol] 26 mmol/L Normal 21-31 [facility] Comment on above: Performed By: #### C MPNG #### [facility] (DEFAULT) [address] [place] [address] 45329 Creatinine [Mass/Vol] 0.64 mg/dL Normal 0.50-1.20 [facility] Comment on above: Performed By: #### C MPNG #### [facility] (DEFAULT) [address] [place] [address] 26532 eGFR, CKD-EPI, Female > Normal >=60 [facility] Comment on above: Result Comment: Repo rted eGFR is based on the CKD-EPI 2020 equation using creatinine, age, and sex. Performed By: #### C MPNG #### [facility] (DEFAULT) [address] [place] [address]2556 Potassium [Moles/Vol] 4.0 mmol/L Normal 3.5-5.0 [facility] Comment on above: Performed By: #### C MPNG #### [facility] (DEFAULT) [address] [place] [address] 83868 Protein [Mass/Vol] 7.9 g/dL Normal 6.4-8.3 [facility] Comment on above: Performed By: #### C MPNG #### [facility] (DEFAULT) [address] [place] [address] Sodium [Moles/Vol] 137 mmol/L Normal 135-145 [facility] Comment on above: Performed By: #### C MPNG #### [facility] (DEFAULT) [address] [place] [address] 75882 Urea nitrogen [Mass/Vol] 12 mg/dL Normal 7-25 [facility] Comment on above: Performed By: #### C MPNG #### [facility] (DEFAULT) [address] [place] [address] 80577 Urea nitrogen/Creatinine [Mass ratio] 19 mg/mg Normal [facility] Comment on above: Performed By: #### C MPNG #### [facility] (DEFAULT) [address] [place] [address] 46637 HCG ( test) Ql (U)O rdered By: Jamil Santos on 01-09-2023 Beta HCG ( test) Ql Negative Negative [facility] Interpretation and review of laboratory results Normal [facility] HCG QUALITATIVE, URINEon Beta HCG ( test) Ql (U) Negative Normal Negative [facility] Comment on above: Performed By: #### U HCG #### [facility] (DEFAULT) [address] [place] [address] 10087 LAMOTRIGINE LEVELon 01-10-20 23 Lamotrigine, S 4.3 mcg/mL Normal 3.0-15.0 [facility] Comment on above: Result Comment: ADDITIONAL INFORMATION This test was developed and its performance characteristics determined by [facility] in a manner consistent with CLIA requirements. This test has not been cleared or approved by the U.S. Food and Drug Administration. Test Performed by: [facility] [address] [place] [address] Annual Giving Director: Juno Vega M.D. Ph.D.; CLIA# [id number] Performed By: #### Y ELTON #### [facility] (DEFAULT) [address] [address] PT,INR,PTTon 01-09-2023 aPTT Coag (PPP) [Time] 31.[address] [facility] INR Coag (Bld) [Relative time] 1.0 {INR} 0.9 - 1.1 [facility] Interpretation and review of laboratory results Normal [facility] PT Coag (PPP) [Time] 13.0 s [facility] aPTT Coag (Bld) [Time] 31.1 s Normal 24.0-34.3 [facility] Comment on above: Performed By: #### P TPTT #### [facility] (DEFAULT) [address] [place] [address] INR Coag (PPP) [Relative time] 1.0 {INR} Normal 0.9-1.1 [facility] Comment on above: Performed By: #### P TPTT #### [facility] (DEFAULT) [address] [address] PT Coag (PPP) [Time] 13.0 s Normal 11.9-14.2 [facility] Comment on above: Performed By: #### P TPTT #### [facility] (DEFAULT) [address] [place] [address] SCREEN: MRSA/MSSAOrdered By: Alexandra Slater on 01-09-2023 Interpretation and review of laboratory results Abnormal [facility] Methicillin Resistant S. Aureus By Pcr Negative Negative [facility] Staphylococcus Aureus By Pcr Positive Abnormal Negative [facility] This test was performed using a [...] by the Clinical Microbiology Laboratory at [facility]. It has not been cleared or approved by the FDA.The laboratory is regulated under CLIA as qualified to perform high-complexity testing. This test is used for clinical purposes. It should not be regarded as investigational or for research. [facility] SCREEN: MRSA/MSSAon 01-10-20 23 Methicillin Resistant S. Aureus By Pcr Negative Normal Negative [facility] Comment on above: Order Comment: This test [...] by the Clinical Microbiology Laboratory at [facility]. It has not been cleared or approved by the FDA.The laboratory is regulated under CLIA as qualified to perform high-complexity testing. This test is used for clinical purposes. It should not be regarded as investigational or for research. Performed By: #### S CRSB #### [facility] (DEFAULT) [address] [place] [address] Staphylococcus Aureus By Pcr Positive Abnormal Negative [facility] Comment on above: Order Comment: This test [...] by the Clinical Microbiology [facility] at [facility]. It has not been cleared or approved by the FDA.The laboratory is regulated under CLIA as qualified to perform high-complexity testing. This test is used for clinical purposes. It should not be regarded as investigational or for research. Performed By: #### S CRSB #### [facility] (DEFAULT) [address] [place] [address] VITAMIN D (25-HYDROXY,TOTAL) on 01-09-2023 25-OH Vitamin D Total 35.2 ng/mL Normal 30.0-100.0 [facility] Comment on above: Order Comment: Vitam in D values have been shown to be falsely decreased in lipemic samples and should be interpreted with caution. Result Comment: <10 Deficiency 10-29 Insufficiency 30-100 Optimal Level >100 Possible Toxicity Performed By: #### D 25OH #### [facility] (DEFAULT) [address] [place] [address] XR Cervical and thoracic and lumbar spine [...] IMPRESSION: Intact vagus nerve stimulator as described. [facility] Radiology Study observation (narrative) [facility] XR Cervical and thoracic and lumbar spine ViewsOrdered By: Alice Crespo on 01-09-2023 [facility] Work Phone: XR STIMULATOR/INTRATHECAL PU MP [...] Intact vagus nerve stimulator as described. Normal [facility] PROGESTERONEon 05-24-2022 Progesterone 5.5 ng/mL Normal [facility] Comment on above: Result Comment: Foll icular phase 0.1 - 0.9 Luteal phase 1.8 - 23.9 Ovulation phase 0.1 - 12.0 First trimester 11.0 - 44.3 Second trimester 25.4 - 83.3 Third trimester 58.7 - 214.0 Postmenopausal 0.0 - 0.1 Performed By: #### P DANIEL #### [facility] [address] [place] [address] Dr. Nicol Oswald LAMOTRIGINEon 05-02-2022 Lamotrigine, Serum 4.7 ug/mL Normal 2.0-20.0 [facility] Comment on above: Result Comment: Dete ction Limit = 1.0 Performed By: #### P DANIEL #### [facility] [address] [address] [address] Nicol Oswald CBC AUTO DIFFon 04-30-2022 BASO # 0.0 103/ul Normal 0.0-0.1 [facility] Comment on above: Performed By: #### C BC #### [facility] [address] [address] [address] Nicol Oswald Basophils/100 WBC (Bld) 0.4 % Normal 0.2-2.0 [facility] Comment on above: Performed By: #### C BC #### [facility] [address] [address] [address] Nicol Oswald EO # 0.2 103/ul Normal 0.0-0.7 [facility] Comment on above: Performed By: #### C BC #### [facility] [address] [place] [address] Dr. Nicol Oswald Eosinophils/100 WBC (Bld) 1.9 % Normal 0.9-7.0 [facility] Comment on above: Performed By: #### C BC #### [facility] [address] [place] [address] Dr. Nicol Oswald Erythrocyte distribution width (RBC) [Ratio] 12.8 % Normal 11.0-15.0 [facility] Comment on above: Performed By: #### C BC #### [facility] [address] [place] [address] Dr. Nicol Oswald Hematocrit (Bld) [Volume fraction] 40.4 % Normal 36.0-48.0 [facility] Comment on above: Performed By: #### C BC #### [facility] [address] [place] [address] Dr. Nicol Oswald Hemoglobin (Bld) [Mass/Vol] 13.6 g/dL Normal 12.0-16.0 [facility] Comment on above: Performed By: #### C BC #### [facility] [address] [place] [address] Dr. Nicol Oswald IG # 0.03 10e3/ul Normal 0.00-0.03 [facility] Comment on above: Performed By: #### C BC #### [facility] [address] [place] [address] Dr. Nicol Oswald IG % 0.4 % Normal 0.0-0.5 [facility] Comment on above: Performed By: #### C BC #### [facility] [address] [place] [address] Dr. Nicol Oswald LYMPH # 3.1 103/ul Normal 1.2-3.8 [facility] Comment on above: Performed By: #### C BC #### [facility] [address] [place] [address] Dr. Nicol Oswald Lymphocytes/100 WBC (Bld) 36.4 % Normal 20.5-60.0 [facility] Comment on above: Performed By: #### C BC #### [facility] [address] [place] [address] Dr. Nicol Oswald MANUAL DIFF REQ NO Normal [facility] Comment on above: Performed By: #### C BC #### [facility] [address] [place] [address] Dr. Nicol Oswald MCH (RBC) [Entitic mass] 31.0 pg Normal 26.7-34.0 [facility] Comment on above: Performed By: #### C BC #### [facility] [address] [place] [address] Dr. Nicol Oswald MCHC (RBC) [Mass/Vol] 33.7 g/dL Normal 29.9-35.2 [facility] Comment on above: Performed By: #### C BC #### [facility] [address] [place] [address] Dr. Nicol Oswald MCV (RBC) [Entitic vol] 92.0 fL Normal 81.0-99.0 [facility] Comment on above: Performed By: #### C BC #### [facility] [address] [place] [address] Dr. Nicol Oswald MONO # 0.7 103/ul Normal 0.3-0.8 [facility] Comment on above: Performed By: #### C BC #### [facility] [address] [place] [address] Dr. Nicol Oswald Monocytes/100 WBC (Bld) 7.7 % Normal 1.7-12.0 [facility] Comment on above: Performed By: #### C BC #### [facility] [address] [place] [address] Dr. Nicol Oswald NEUT # 4.5 103/ul Normal 1.4-6.5 [facility] Comment on above: Performed By: #### C BC #### [facility] [address] [place] [address] Dr. Nicol Oswald Neutrophils/100 WBC (Bld) 53.2 % Normal 43.0-75.0 [facility] Comment on above: Performed By: #### C BC #### [facility] [address] [place] [address] Dr. Nicol Oswald Platelet mean volume (Bld) [Entitic vol] 11.0 fL Normal 9.5-13.5 [facility] Comment on above: Performed By: #### C BC #### [facility] [address] [place] [address] Dr. Nicol Oswald PLT 282 103/ul Normal 150-450 [facility] Comment on above: Performed By: #### C BC #### [facility] [address] [place] [address] Dr. Nicol Oswald RBC 4.39 106/ul Normal 4.20-5.40 [facility] Comment on above: Performed By: #### C BC #### [facility] [address] [place] [address] Dr. Nicol Oswald WBC 8.4 103/ul Normal 4.0-11.0 [facility] Comment on above: Performed By: #### C BC #### [facility] [address] [place] [address] Dr. Nicol Oswald LIVER PROFILEon 04-30-2022 Albumin [Mass/Vol] 4.1 g/dL Normal 3.4-5.0 [facility] Comment on above: Performed By: #### P DANIEL #### [facility] [address] [address] [address] Nicol Oswald Albumin/Globulin [Mass ratio] 1.2 {ratio} Normal [facility] Comment on above: Performed By: #### P DANIEL #### [facility] [address] [address] [address] Nicol Oswald ALP [Catalytic activity/Vol] 52 U/L Normal 46-116 [facility] Comment on above: Performed By: #### P DANIEL #### [facility] [address] [address] [address] Nicol Oswald ALT [Catalytic activity/Vol] 23 U/L Normal 14-59 [facility] Comment on above: Performed By: #### P DANIEL #### [facility] [address] [place] [address] Dr. Nicol Oswald AST [Catalytic activity/Vol] 17 U/L Normal 15-37 [facility] Comment on above: Performed By: #### P DANIEL #### [facility] [address] [place] [address] Dr. Nicol Oswald BILI, CONJUGATED 0.1 mg/dL Normal 0.0-0.2 [facility] Comment on above: Performed By: #### P DANIEL #### [facility] [address] [place] [address] Dr. Nicol Oswald Bilirubin [Mass/Vol] 0.2 mg/dL Normal 0.2-1.0 [facility] Comment on above: Performed By: #### P DANIEL #### [facility] [address] [place] [address] Dr. Nicol Oswald Globulin (S) [Mass/Vol] 3.4 g/dL Normal [facility] Comment on above: Performed By: #### P DANIEL #### [facility] [address] [address] [address] Nicol Oswald Protein [Mass/Vol] 7.5 g/dL Normal 6.4-8.2 [facility] Comment on above: Performed By: #### P DANIEL #### [facility] [address] [address] [address] Nicol Oswald PROF CHEM 8 (BAS METB)on Anion gap [Moles/Vol] 8.5 mmol/L Normal [facility] Comment on above: Performed By: #### P ROGES #### [facility] [address] [address] [address] Nicol Oswald Calcium [Mass/Vol] 9.4 mg/dL Normal 8.5-10.1 [facility] Comment on above: Performed By: #### P ROGES #### [facility] [address] [address] [address] Nicol Oswald Chloride [Moles/Vol] 102 mmol/L Normal 98-107 [facility] Comment on above: Performed By: #### P ROGES #### [facility] [address] [address] [address] Nicol Oswald CO2 [Moles/Vol] 30.4 mmol/L Normal 21.0-32.0 [facility] Comment on above: Performed By: #### P ROGES #### [facility] [address] [address] [address] Nicol Oswald Creatinine [Mass/Vol] 0.57 mg/dL Normal 0.55-1.02 [facility] Comment on above: Performed By: #### P ROGES #### [facility] [address] [address] [address] Nicol Oswald EGFR-AF IRAQI >60 Normal >=60 [facility] Comment on above: Performed By: #### P ROGES #### [facility] [address] [address] [address] Nicol Oswald EGFR-NON AF IRAQI >60 Normal >=60 [facility] Comment on above: Performed By: #### P ROGES #### [facility] [address] [address] [address] Nicol Oswald Glucose [Mass/Vol] 89 mg/dL Normal 74-106 [facility] Comment on above: Performed By: #### P ROGES #### [facility] [address] [address] [address] Nicol Oswald Potassium [Moles/Vol] 3.9 mmol/L Normal 3.5-5.1 [facility] Comment on above: Performed By: #### P DANIEL #### [facility] [address] [address] [address] Nicol Oswald Sodium [Moles/Vol] 137 mmol/L Normal 136-145 [facility] Comment on above: Performed By: #### P DANIEL #### [facility] [address] [address] [address] Nicol Oswald Urea nitrogen [Mass/Vol] 10.0 mg/dL Normal 7.0-18.0 [facility] Comment on above: Performed By: #### P DANIEL #### [facility] [address] [address] [address] Nicol Oswald Urea nitrogen/Creatinine [Mass ratio] 17.5 mg/mg Normal [facility] Comment on above: Performed By: #### P DANIEL #### [facility] [address] [address] [address] Nicol Oswald ESTROGENon 04-19-2022 Estrogens, Total 124 pg/mL Normal [facility] Comment on above: Result Comment: Prep ubertal < 40 Female Cycle: 1-10 Days 16 - 328 11-20 Days 34 - 501 21-30 Days 48 - 350 Post-Menopausal 40 - 244 Performed By: #### E KYLIE #### [facility] [address] [address] [address] Nicol Oswald DHEA SERUMon 04-18-2022 Dehydroepiandrosterone (DHEA) 371 ng/dL Normal 31-701 [facility] Comment on above: Result Comment: Age [...] [birth year] Performed By: #### P DANIEL #### [facility] [address] [address] [address] Nicol Oswald DHEA-SULFATEon 04-16-2022 DHEA-Sulfate 371.0 ug/dL Normal 84.8-378.0 [facility] Comment on above: Performed By: #### P DANIEL #### [facility] [address] [place] [address] Dr. Nicol Oswald FSHon 04-16-2022 FSH 5.6 mIU/mL Normal [facility] Comment on above: Result Comment: Adul t Female: Follicular phase 3.5 - 12.5 Ovulation phase 4.7 - 21.5 Luteal phase 1.7 - 7.7 Postmenopausal 25.8 - 134.8 Performed By: #### P DANIEL #### [facility] [address] [place] [address] Dr. Nicol Oswald LUTEINIZING HORMONE (LH)on 0 04-16-2022 LH 12.9 mIU/mL Normal [facility] Comment on above: Result Comment: Adul t Female: Follicular phase 2.4 - 12.6 Ovulation phase 14.0 - 95.6 Luteal phase 1.0 - 11.4 Postmenopausal 7.7 - 58.5 Performed By: #### P DANIEL #### [facility] [address] [place] [address] Dr. Nicol Oswald PROGESTERONEon 04-16-2022 Progesterone 0.2 ng/mL Normal [facility] Comment on above: Result Comment: Foll icular phase 0.1 - 0.9 Luteal phase 1.8 - 23.9 Ovulation phase 0.1 - 12.0 First trimester 11.0 - 44.3 Second trimester 25.4 - 83.3 Third trimester 58.7 - 214.0 Postmenopausal 0.0 - 0.1 Performed By: #### P DANIEL #### [facility] [address] [place] [address] Dr. Nicol Oswald PROLACTINon 04-16-2022 Prolactin 7.1 ng/mL Normal 4.8-23.3 [facility] Comment on above: Performed By: #### P ENID #### [facility] [address] [place] [address] Dr. Nicol Oswald US PELVIS AND TRANSVAGon [...] CYDNEY VALDEZ Date: 2022-04-16 08:48 Normal [facility] AUTO DIFFon 04-15-2022 BASO # 0.0 103/ul Normal 0.0-0.1 [facility] Comment on above: Performed By: #### C BC #### [facility] [address] [address] [address] Nicol Oswald Basophils/100 WBC (Bld) 0.5 % Normal 0.2-2.0 [facility] Comment on above: Performed By: #### C BC #### [facility] [address] [address] [address] Nicol Oswald EO # 0.2 103/ul Normal 0.0-0.7 [facility] Comment on above: Performed By: #### C BC #### [facility] [address] [address] [address] Nicol Oswald Eosinophils/100 WBC (Bld) 2.1 % Normal 0.9-7.0 [facility] Comment on above: Performed By: #### C BC #### [facility] [address] [address] [address] Nicol Oswald Erythrocyte distribution width (RBC) [Ratio] 12.5 % Normal 11.0-15.0 [facility] Comment on above: Performed By: #### C BC #### [facility] [address] [place] [address] Dr. Nicol Oswald Hematocrit (Bld) [Volume fraction] 44.7 % Normal 36.0-48.0 [facility] Comment on above: Performed By: #### C BC #### [facility] [address] [place] [address] Dr. Nicol Oswald Hemoglobin (Bld) [Mass/Vol] 14.3 g/dL Normal 12.0-16.0 [facility] Comment on above: Performed By: #### C BC #### [facility] [address] [place] [address] Dr. Nicol Oswald IG # 0.01 10e3/ul Normal 0.00-0.03 [facility] Comment on above: Performed By: #### C BC #### [facility] [address] [place] [address] Dr. Nicol Oswald IG % 0.1 % Normal 0.0-0.5 [facility] Comment on above: Performed By: #### C BC #### [facility] [address] [place] [address] Dr. Nicol Oswald LYMPH # 2.0 103/ul Normal 1.2-3.8 [facility] Comment on above: Performed By: #### C BC #### [facility] [address] [place] [address] Dr. Nicol Oswald Lymphocytes/100 WBC (Bld) 26.0 % Normal 20.5-60.0 [facility] Comment on above: Performed By: #### C BC #### [facility] [address] [place] [address] Dr. Nicol Oswald MANUAL DIFF REQ NO Normal [facility] Comment on above: Performed By: #### C BC #### [facility] [address] [place] [address] Dr. Nicol Oswald MCH (RBC) [Entitic mass] 30.8 pg Normal 26.7-34.0 [facility] Comment on above: Performed By: #### C BC #### [facility] [address] [address] [address] Nicol Oswald MCHC (RBC) [Mass/Vol] 32.0 g/dL Normal 29.9-35.2 [facility] Comment on above: Performed By: #### C BC #### [facility] [address] [place] [address] Dr. Nicol Oswald MCV (RBC) [Entitic vol] 96.3 fL Normal 81.0-99.0 [facility] Comment on above: Performed By: #### C BC #### [facility] [address] [place] [address] Dr. Nicol Oswald MONO # 0.6 103/ul Normal 0.3-0.8 [facility] Comment on above: Performed By: #### C BC #### [facility] [address] [place] [address] Dr. Nicol Oswald Monocytes/100 WBC (Bld) 7.3 % Normal 1.7-12.0 [facility] Comment on above: Performed By: #### C BC #### [facility] [address] [place] [address] Dr. Nicol Oswald NEUT # 4.9 103/ul Normal 1.4-6.5 [facility] Comment on above: Performed By: #### C BC #### [facility] [address] [place] [address] Dr. Nicol Oswald Neutrophils/100 WBC (Bld) 64.0 % Normal 43.0-75.0 [facility] Comment on above: Performed By: #### C BC #### [facility] [address] [place] [address] Dr. Nicol Oswald Platelet mean volume (Bld) [Entitic vol] 11.3 fL Normal 9.5-13.5 [facility] Comment on above: Performed By: #### C BC #### [facility] [address] [place] [address] Dr. Nicol Oswald PLT 302 103/ul Normal 150-450 [facility] Comment on above: Performed By: #### C BC #### [facility] [address] [place] [address] Dr. Nicol Oswald RBC 4.64 106/ul Normal 4.20-5.40 [facility] Comment on above: Performed By: #### C BC #### [facility] [address] [place] [address] Dr. Nicol Oswald WBC 7.7 103/ul Normal 4.0-11.0 [facility] Comment on above: Performed By: #### C BC #### [facility] [address] [place] [address] Dr. Nicol Oswald FREE T4on 04-15-2022 Free T4 [Mass/Vol] 0.80 ng/dL Normal 0.76-1.46 [facility] Comment on above: Performed By: #### F T4 #### [facility] [address] [place] [address] Dr. Nicol Oswald GLYCOHEMOGLOBIN A1Con 2022 ADA RECOMMENDATION SEE BELOW Normal [facility] Comment on above: Result Comment: ADA RECOMMENDED LIMIT 4.0 - 6.0 ADA THERAPEUTIC TARGET < 7.0 ACTION SUGGESTED > 7.0 Performed By: #### A 1C #### [facility] [address] [place] [address] Dr. Nicol Oswald Glucose [Mass/Vol] 114 mg/dL Normal [facility] Comment on above: Performed By: #### A 1C #### [facility] [address] [place] [address] Dr. Nicol Oswald HbA1c (Bld) [Mass fraction] 5.6 % Normal 4.5-6.2 [facility] Comment on above: Performed By: #### A 1C #### [facility] [address] [place] [address] Dr. Nicol Oswald PREG QUANT HCGon 04-15-2022 HCG QUANT <1 Normal [facility] Comment on above: Performed By: #### P REGQNT, TSH #### [facility] [address] [place] [address] Dr. Nicol Oswald HCG RANGE SEE BELOW Normal [facility] Comment on above: Result Comment: 5-50 0.2-1 WEEK 50-500 1-2 WEEKS 100-5,000 2-3 WEEKS 500-10,000 3-4 WEEKS 1,000-50,000 4-5 WEEKS 10,000-100,000 5-6 WEEKS 15,000-200,000 6-8 WEEKS 10,000-100,000 2-3 MONTHS Performed By: #### P REGQWES, TSH #### [facility] [address] [place] [address] Dr. Nicol Oswald TSHon 04-15-2022 TSH 1.312 uIU/mL Normal 0.358-3.740 [facility] Comment on above: Performed By: #### P PAUL, TSH #### [facility] [address] [place] [address] Dr. Nicol Oswald PAP ACOG PANEL 2: 23 to 31on 08-31-2021 . . [facility] Comment on above: Performed By: #### P DANIEL #### [facility] [address] [place] [address] Dr. Nicol Oswald Age Gdln ACOG Testing - [facility] Comment on above: Performed By: #### P DANIEL #### [facility] [address] [place] [address] Dr. Nicol Oswald DIAGNOSIS: Comment [facility] Comment on above: Result Comment: NEGA TIVE FOR INTRAEPITHELIAL LESION OR MALIGNANCY. THIS SPECIMEN WAS RESCREENED PART OF [employer] PROGRAM. Performed By: #### P JASONES #### [facility] [address] [place] [address] Dr. Nicol Oswald Methodology: Comment [facility] Comment on above: Result Comment: This liquid based ThinPrep(R) pap test was screened with the use of an image guided system. Performed By: #### P DANIEL #### [facility] [address] [place] [address] Dr. Nicol Oswald Note: Comment [facility] Comment on above: Result Comment: The Pap smear is a screening test designed to aid in the detection of premalignant and malignant conditions of the uterine cervix. It is not a diagnostic procedure and should not be used as the sole means of detecting cervical cancer. Both false-positive and false-negative reports do occur. . Performed By: #### P DANIEL #### [facility] [address] [address] [address] Nicol Oswald Performed by: Comment Normal [facility] Comment on above: Result Comment: Mireille Blanco, Mower Mechanic (ASCP) Performed By: #### P DANIEL #### [facility] [address] [address] [address] Nicol Oswald QC reviewed by: Comment Normal [facility] Comment on above: Result Comment: Tahira Roque, Mower Mechanic (ASCP) Performed By: #### P DANIEL #### [facility] [address] [place] [address] Dr. Nicol Oswald Reflex Criteria: Comment Normal [facility] Comment on above: Result Comment: The HPV DNA reflex criteria were not met with this specimen result therefore, no HPV testing was performed. . Performed By: #### P JASONES #### [facility] [address] [address] [address] Nicol Oswald Specimen adequacy: Comment Normal [facility] Comment on above: Result Comment: Sati sfactory for evaluation. Endocervical and/or squamous metaplastic cells (endocervical component) are present. Performed By: #### P DANIEL #### [facility] [address] [place] [address] Dr. Nicol Oswald CBC Auto Diff Reflex Manualo n 02-18-2019 Automated Absolute Neutrophil 5.73 10*3/mm3 Normal [facility] Comment on above: Result Comment: Auto mated Absolute Neutrophil Count (ANC) is directly measured using a hematology instrument. ANC determined from manual differential cell count may differ. No [facility] reference range has been validated for this assay. Performed By: #### C D #### Performed at [address] [address] Basophil 0.5 % Normal 0.0-1.0 [facility] Comment on above: Performed By: #### C D #### Performed at [address] [address] Differential Type Automated Normal [facility] Comment on above: Performed By: #### C D #### Performed at [address] [address] Eosinophil 1.6 % Normal 1.0-4.0 [facility] Comment on above: Performed By: #### C D #### [place] [address] Erythrocyte distribution width (RBC) [Ratio] 13.4 % Normal 10-14.1 [facility] Comment on above: Performed By: #### C D #### [place] [address] Lymphocyte 22.6 % Low 24.0-44.0 [facility] Comment on above: Performed By: #### C D #### [place] [address] MCH (RBC) [Entitic mass] 30.7 pg Normal 26-34 [facility] Comment on above: Performed By: #### C D #### [place] [address] MCHC (RBC) [Mass/Vol] 33.2 % Normal 31.0-37.0 [facility] Comment on above: Performed By: #### C D #### [place] [address] MCV (RBC) [Entitic vol] 92.4 fL Normal 80-100 [facility] Comment on above: Performed By: #### C D #### Performed at [address] [address] Monocyte 8.2 % High 1.0-7.0 [facility] Comment on above: Performed By: #### C D #### Performed at [address] [address] Neutrophil 67.1 % Normal 41.0-77.0 [facility] Comment on above: Performed By: #### C D #### [place] [address] Platelet mean volume (Bld) [Entitic vol] 11.5 fL Normal 9.3-13.0 [facility] Comment on above: Performed By: #### C D #### Performed at [address] [address] Platelets (Bld) [#/Vol] 268 10*3/uL Normal 140-440 [facility] Comment on above: Performed By: #### C D #### [place] [address] RBC (Bld) [#/Vol] 4.60 10*6/uL Normal 4.0-5.2 [facility] Comment on above: Performed By: #### C D #### [place] [address] WBC (Bld) [#/Vol] 8.6 10*3/uL Normal 4.5-11 [facility] Comment on above: Performed By: #### C D #### [place] [address] Comprehensive Metabolic Pane [facility] 02-18-2019 Albumin [Mass/Vol] 4.7 g/dL Normal 3.4-5.2 [facility] ALP [Catalytic activity/Vol] 47 U/L Low 50-136 [facility] ALT [Catalytic activity/Vol] 32 U/L Normal <40 [facility] AST [Catalytic activity/Vol] 29 U/L Normal 15-50 [facility] Bilirubin Ql (U) 0.2 mg/dL Normal 0.1-1.0 [facility] Calcium [Mass/Vol] 9.8 mg/dL Normal 8-10.5 [facility] Chloride [Moles/Vol] 104 mmol/L Normal 95-106 [facility] CO2 [Moles/Vol] 25 mmol/L Normal 24-35 [facility] Creatinine [Mass/Vol] 0.52 mg/dL Normal 0.5-1 [facility] Glucose [Mass/Vol] 135 mg/dL High 60-115 [facility] Potassium [Moles/Vol] 4.5 mmol/L Normal 3.7-5.3 [facility] Protein [Mass/Vol] 8.0 g/dL Normal 6.4-8.4 [facility] Sodium [Moles/Vol] 140 mmol/L Normal 135-145 [facility] Urea nitrogen [Mass/Vol] 15 mg/dL Normal 5-18 [facility] Valproic Acidon 02-18-2019 Valproic Acid 47.1 ug/mL Low 50.0-100.0 [facility] PAP, THIN PREP WITH IMAGINGo n 06-29-2018 PAP, THIN PREP WITH IMAGING Normal [facility] Comment on above: Result Comment: INTE RPRETATION Thin Prep Image-Guided Pap Test (Cervical/Endocervical) NEGATIVE FOR INTRAEPITHELIAL LESION /MALIGNANCY Satisfactory for evaluation (Endocervical/transformation zone component present) [facility] [place]/06/27/2018 The Pap test is a screening test, [...] 05/18/18 ICD-CM DIAGNOSIS CODE(S) Z01.419 Encntr For Silica Filter Operator Exam (general) (routine) W/o Abn Findings * EFFECTIVE 06/08/2018 * * CLINICAL CHEMISTRY PLATFORM CHANGES ARE ASSOCIATED WITH * * REFERENCE RANGE CHANGES FOR A NUMBER OF ANALYTES. PLEASE * * REVIEW REFERENCE INTERVALS CAREFULLY * Pathology [employer] [address] [address] CLIA No. [id number] CAP Accreditation No. [id number] Affirmative Action Officer: Johnson Garland M.D. [employer] [employer] Accession Number: [id number] Performed By: #### P L PAP W/IMAGE #### [address] [address] [address] Nucleic-Acid Probe-Endoce rvical Swabon 06-24-2018 CT Nucleic-Acid Probe-Endocervical Swab Negative Normal NEGATIVE [facility] Comment on above: Performed By: #### G C Amp Endocerv, CT Amp Endocerv #### [address] [address] Age at specimen collection = Normal [facility] Comment on above: Performed By: #### G C Amp Endocerv, CT Amp Endocerv #### [address] [address] Performed By: #### P L PAP W/IMAGE #### [address] [address] GC Nucleic-Acid Probe-Endoce rvical Swabon 06-24-2018 GC Nucleic-Acid Probe-Endocervical Swab Negative Normal NEGATIVE [facility] Comment on above: Performed By: #### G C Amp Endocerv, CT Amp Endocerv #### [address] [address] Platelet Functionon 03-24-19 19 Collagen/ADP 148 sec High 67-112 [facility] Comment on above: Performed By: #### P FA #### [address] [place] [address] Collagen/EPI 228 sec High 85-172 [facility] Comment on above: Performed By: #### P FA #### [address] [place] [address] Interpretation Abnormal platelet function. Normal [facility] Comment on above: Result Comment: Comm [...] established. Performed By: #### P FA #### [address] [place] [address] XR ANKLE RIGHT STANDARDon XR ANKLE RIGHT STANDARD Radiology exam i s complete. No Radiologist dictation. Please follow up with ordering provider. Final result Normal [facility] Vital Signs Date Time Vital Sign Value Performing Clinician Facility 09-24-2023 10:290400 Body height 170.18 cm [facility] 09-24-2023 10:29-0400 Body mass index (BMI) [Ratio] 30.2 kg/m2 [facility] 09-24-2023 10:29-0400 Body weight 87.54 kg [facility] 09-24-2023 10:29-0400 Diastolic blood pressure 78 mm[Hg] [facility] 09-24-2023 10:29-0400 Heart rate 67 /min [facility] 09-24-2023 10:29-0400 SaO2% (BldA) [Mass fraction] 98 % [facility] 09-24-2023 10:29-0400 Systolic blood pressure 112 mm[Hg] [facility] 08-21-2023 14:43-0400 Body height 161.3 cm Cori Hernández V, DO Work Phone: [facility] Comment on above: verbal 08-21-2023 14:43-0400 Body mass index (BMI) [Ratio] 34.59 kg/m2 Cori Hernández V, DO Work Phone: [facility] 08-21-2023 14:43-0400 Body temperature 98.29 [degF] Cori Maturu V, DO Work Phone: [facility] 08-21-2023 14:43-0400 Body weight 89.99 kg Cori Maturu V, DO Work Phone: [facility] 08-21-2023 14:43-0400 Diastolic blood pressure 76 mm[Hg] Cori Maturu V, DO Work Phone: [facility] 08-21-2023 14:43-0400 Heart rate 88 /min Cori Maturu V, DO Work Phone: [facility] 08-21-2023 14:43-0400 Systolic blood pressure 130 mm[Hg] Cori Maturu V, DO Work Phone: [facility] 07-07-2023 14:37-0400 Body height 170.18 cm [facility] 07-07-2023 14:37-0400 Body mass index (BMI) [Ratio] 30.8 kg/m2 [facility] 07-07-2023 14:37-0400 Body weight 89.35 kg [facility] 07-07-2023 14:37-0400 Diastolic blood pressure 78 mm[Hg] [facility] 07-07-2023 14:37-0400 Heart rate 81 /min [facility] 07-07-2023 14:37-0400 SaO2% (BldA) [Mass fraction] 98 % [facility] 07-07-2023 14:37-0400 Systolic blood pressure 112 mm[Hg] [facility] 05-28-2023 14:04-0400 Body height 161.3 cm Riana Chinchilla APRN-DAI Work Phone: [facility] 05-28-2023 14:04-0400 Body mass index (BMI) [Ratio] 34.09 kg/m2 Riana Chinchilla APRN-SECURITY INCIDENT HANDLER Work Phone: [facility] 05-28-2023 14:04-0400 Body temperature 98.01 [degF] Riana Chinchilla FINGER GRIP MACHINE OPERATOR-SECURITY INCIDENT HANDLER Work Phone: [facility] 05-28-2023 14:04-0400 Body weight 88.68 kg Riana Chinchilla FINGER GRIP MACHINE OPERATOR-SECURITY INCIDENT HANDLER Work Phone: [facility] 05-28-2023 14:04-0400 Diastolic blood pressure 74 mm[Hg] Riana Raoul FINGER GRIP MACHINE OPERATOR-SECURITY INCIDENT HANDLER Work Phone: [facility] 05-28-2023 14:04-0400 Heart rate 92 /min Riana Raoul FINGER GRIP MACHINE OPERATOR-SECURITY INCIDENT HANDLER Work Phone: [facility] 05-28-2023 14:04-0400 Systolic blood pressure 122 mm[Hg] Riana Chinchilla FINGER GRIP MACHINE OPERATOR-SECURITY INCIDENT HANDLER Work Phone: [facility] 04-22-2023 13:04-0500 Body mass index (BMI) [Ratio] 34 kg/m2 Donovan Kimmie DO Work Phone: [facility] 04-22-2023 13:04-0500 Body weight 88.45 kg Donovan Kimmie DO Work Phone: [facility] 04-22-2023 13:04-0500 Diastolic blood pressure 78 mm[Hg] Donovan Kimmie DO Work Phone: [facility] 04-22-2023 13:04-0500 Systolic blood pressure 120 mm[Hg] Donovan Kimmie DO Work Phone: [facility] 02-14-2023 15:48-0500 Body height 161.3 cm Riana Chinchilla FINGER GRIP MACHINE OPERATOR-SECURITY INCIDENT HANDLER Work Phone: [facility] Comment on above: verbal 02-14-2023 15:48-0500 Body mass index (BMI) [Ratio] 34.82 kg/m2 Riana Chinchilla FINGER GRIP MACHINE OPERATOR-SECURITY INCIDENT HANDLER Work Phone: [facility] 02-14-2023 15:48-0500 Body temperature 97.9 [degF] Riana Raoul FINGER GRIP MACHINE OPERATOR-SECURITY INCIDENT HANDLER Work Phone: [facility] 02-14-2023 15:48-0500 Body weight 90.58 kg Crystal Raoul FINGER GRIP MACHINE OPERATOR-SECURITY INCIDENT HANDLER Work Phone: [facility] 02-14-2023 15:48-0500 Diastolic blood pressure 79 mm[Hg] Crystal Raoul FINGER GRIP MACHINE OPERATOR-SECURITY INCIDENT HANDLER Work Phone: [facility] 02-14-2023 15:48-0500 Heart rate 107 /min Riana Raoul FINGER GRIP MACHINE OPERATOR-SECURITY INCIDENT HANDLER Work Phone: [facility] 02-14-2023 15:48-0500 Systolic blood pressure 133 mm[Hg] Riana Raoul FINGER GRIP MACHINE OPERATOR-SECURITY INCIDENT HANDLER Work Phone: [facility] 01-15-2023 13:50-0500 Body temperature 97.5 [degF] Evy Verma MD Work Phone: [facility] 01-15-2023 13:50-0500 Diastolic blood pressure 79 mm[Hg] Evy Verma MD Work Phone: [facility] 01-15-2023 13:50-0500 Heart rate 78 /min Evy Verma MD Work Phone: [facility] 01-15-2023 13:50-0500 Respiratory rate 16 /min Evy Verma MD Work Phone: [facility] 01-15-2023 13:50-0500 SaO2% (BldA) [Mass fraction] 98 % Evy Verma MD Work Phone: [facility] 01-15-2023 13:50-0500 Systolic blood pressure 117 mm[Hg] Evy Verma MD Work Phone: [facility] 01-15-2023 07:50-0500 Body height 161.3 cm Evy Verma MD Work Phone: [facility] 01-15-2023 07:50-0500 Body mass index (BMI) [Ratio] 34.37 kg/m2 Evy Verma MD Work Phone: [facility] 01-15-2023 07:50-0500 Body weight 89.4 kg Evy Verma MD Work Phone: [facility] 01-09-2023 08:39-0400 Body height 161.3 cm Esau Hernandez PAC Work Phone: [facility] 01-09-2023 08:39-0400 Body mass index (BMI) [Ratio] 33.65 kg/m2 Esau Hernandez PAC Work Phone: 2(896)869-078987 [address] 01-09-2023 08:39-0400 Body temperature 98.49 [degF] Esau Hernandez PAC Work Phone: 5(331)992-076487 [address] 01-09-2023 08:39-0400 Body weight 87.54 kg Esau Hernandez PAC Work Phone: 0(237)656-496887 [address] 01-09-2023 08:39-0400 Diastolic blood pressure 80 mm[Hg] Esau Hernandez PAC Work Phone: 3(626)387-828687 [address] 01-09-2023 08:39-0400 Heart rate 81 /min Esau Hernandez PAC Work Phone: 9(596)334-389847 [place] [address] 01-09-2023 08:39-0400 Respiratory rate 18 /min Esau Hernandez PAC Work Phone: [facility] 01-09-2023 08:39-0400 SaO2% (BldA) [Mass fraction] 98 % Esau Hernandez PAC Work Phone: [facility] 01-09-2023 08:39-0400 Systolic blood pressure 134 mm[Hg] Esau Hernandez PAC Work Phone: 1(023)995-000987 [address] 12-10-2022 10:53-0400 Body height 160 cm Evy Verma MD Work Phone: [facility] 12-10-2022 10:53-0400 Body mass index (BMI) [Ratio] 34.19 kg/m2 Evy Verma MD Work Phone: [facility] 12-10-2022 10:53-0400 Body weight 87.54 kg Evy Verma MD Work Phone: 2(697)[phone] [place] [address] 12-10-2022 10:53-0400 Diastolic blood pressure 63 mm[Hg] Evy Verma MD Work Phone: 5(618)[phone] [place] [address] 12-10-2022 10:53-0400 Heart rate 65 /min Evy Verma MD Work Phone: 0(129)[phone] [address] 12-10-2022 10:53-0400 Systolic blood pressure 125 mm[Hg] Evy Verma MD Work Phone: [facility] 11-08-2022 16:21-0400 Body height 160 cm Crystal Raoul FINGER GRIP MACHINE OPERATOR-SECURITY INCIDENT HANDLER Work Phone: [facility] Comment on above: verbal 11-08-2022 16:21-0400 Body mass index (BMI) [Ratio] 34.26 kg/m2 Crystal Raoul FINGER GRIP MACHINE OPERATOR-SECURITY INCIDENT HANDLER Work Phone: [facility] 11-08-2022 16:21-0400 Body temperature 99.1 [degF] Crystal Raoul FINGER GRIP MACHINE OPERATOR-SECURITY INCIDENT HANDLER Work Phone: [facility] 11-08-2022 16:21-0400 Body weight 87.73 kg Crystal Raoul FINGER GRIP MACHINE OPERATOR-SECURITY INCIDENT HANDLER Work Phone: [facility] 11-08-2022 16:21-0400 Diastolic blood pressure 71 mm[Hg] Crystal Raoul FINGER GRIP MACHINE OPERATOR-SECURITY INCIDENT HANDLER Work Phone: [facility] 11-08-2022 16:21-0400 Heart rate 97 /min Riana Chinchilla FINGER GRIP MACHINE OPERATOR-SECURITY INCIDENT HANDLER Work Phone: [facility] 11-08-2022 16:21-0400 Systolic blood pressure 116 mm[Hg] Riana Chinchilla FINGER GRIP MACHINE OPERATOR-SECURITY INCIDENT HANDLER Work Phone: [facility] 07-04-2021 09:38-0400 Body height 161.3 cm Riana Chinchilla FINGER GRIP MACHINE OPERATOR-SECURITY INCIDENT HANDLER Work Phone: [facility] Comment on above: verbal 07-04-2021 09:38-0400 Body mass index (BMI) [Ratio] 36.23 kg/m2 Riana Chinchilla FINGER GRIP MACHINE OPERATOR-SECURITY INCIDENT HANDLER Work Phone: [facility] 07-04-2021 09:38-0400 Body temperature 98.71 [degF] Riana Chinchilla FINGER GRIP MACHINE OPERATOR-SECURITY INCIDENT HANDLER Work Phone: [facility] 07-04-2021 09:38-0400 Body weight 94.26 kg Riana Chinchilla FINGER GRIP MACHINE OPERATOR-SECURITY INCIDENT HANDLER Work Phone: [facility] 07-04-2021 09:38-0400 Diastolic blood pressure 70 mm[Hg] Riana Chinchilla FINGER GRIP MACHINE OPERATOR-SECURITY INCIDENT HANDLER Work Phone: [facility] 07-04-2021 09:38-0400 Heart rate 73 /min Riana Chinchilla FINGER GRIP MACHINE OPERATOR-SECURITY INCIDENT HANDLER Work Phone: [facility] 07-04-2021 09:38-0400 Systolic blood pressure 119 mm[Hg] Riana Chinchilla FINGER GRIP MACHINE OPERATOR-SECURITY INCIDENT HANDLER Work Phone: [facility] Encounters Encounter Date Encounter Type Care Provider Facility Start: 02-18-2024 End: 02-19-2024 Clinisync Result Encounter Donovan Kimmie DO Work Phone: [facility] External [facility] Unsolicited Start: 02-18-2024 End: 02-19-2024 Clinisync Result Encounter Donovan Kimmie DO Work [...] Telephone encounter [facility] [place] Comment on above: Insurance Start: 11-14-2023 End: 11-14-2023 Telephone encounter Helena Meza MA [facility] [place] Comment on above: Insurance ([facility]) Start: 11-12-2023 End: 11-13-2023 Clinisync Result Encounter Donovan Kimmie DO Work Phone: [facility] External [facility] Unsolicited Start: 11-12-2023 End: 11-13-2023 Clinisync Result Encounter Donovan Kimmie DO Work Phone: [facility] External [facility] Unsolicited Start: 10-20-2023 End: 10-20-2023 ambulatory DONOVAN KIMMIE Not Available Start: 10-15-2023 End: 10-15-2023 ambulatory MADONNA PARSONS Not Available Start: 09-24-2023 End: 09-24-2023 ambulatory [facility] Work Phone: Start: 09-24-2023 End: 09-24-2023 Patient encounter procedure [facility] Physician [facility] Work Phone: Start: 09-11-2023 Non-patient / Non-visit [facility] Physician [facility] Work Phone: Start: 08-21-2023 End: 08-21-2023 Office outpatient visit 25 minutes Cori Hernández DO Work Phone: Neurology [facility] 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); Anxiety disorder, unspecified type Start: 08-21-2023 [facility] Facility: [facility] Start: 08-08-2023 Non-patient / Non-visit [facility] Physician [facility] Work Phone: Start: 07-09-2023 Non-patient / Non-visit [facility] Work Phone: Start: 07-07-2023 End: 07-07-2023 ambulatory [facility] Work Phone: Start: 07-07-2023 End: 07-07-2023 Patient encounter procedure [facility] Work Phone: Start: 06-27-2023 Non-patient / Non-visit [facility] Work Phone: Start: 06-08-2023 Non-patient / Non-visit [facility] Physician [facility] Work Phone: Start: 05-28-2023 End: 05-28-2023 Office outpatient visit 25 minutes Riana Chinchilla APRN-SECURITY INCIDENT HANDLER Work Phone: [facility] [place] 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); Anxiety disorder, unspecified type Start: 05-28-[address] [facility] Facility: [facility] Start: 05-09-2023 Non-patient / Non-visit [facility] Work Phone: Start: 04-22-2023 End: 04-22-2023 ambulatory DONOVAN KIMMIE Not Available Start: 04-22-2023 End: 04-22-2023 Office outpatient visit 15 minutes Donovan Kimmie DO Work Phone: [facility] Comment on above: Encounter for fertil ity planning Start: 04-22-2023 End: 04-22-2023 ambulatory DONOVAN BURKS Not Available Start: 02-14-2023 End: 02-14-2023 Office outpatient visit 25 minutes Riana Chinchilla FINGER GRIP MACHINE OPERATOR-SECURITY INCIDENT HANDLER Work Phone: [facility] [place] 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); 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 Start: 02-14-2023 ambulatory TIM ROLON Facility: [facility] Start: 01-15-2023 End: 01-15-2023 ambulatory EVY VERMA Facility:[facility] Start: 01-15-2023 End: 01-15-2023 Subsequent hospital visit by physician Evy Verma MD Work Phone: [facility] 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 Start: 01-09-2023 ambulatory EVY VERMA Facility:[facility] Start: 01-09-2023 End: 01-09-2023 Office consultation new/estab patient 60 min Esau Hernandez PAC Work Phone: Pre-Procedure Evaluation and Assessment [facility] Comment on above: Preop exam for inter nal medicine (Primary Dx); Jeavons syndrome; 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 Start: 01-09-2023 End: 01-09-2023 Patient encounter status Esau Hernandez PAC Work Phone: [facility] Start: 01-09-2023 End: 01-09-2023 Subsequent hospital visit by physician Evy Verma MD Work Phone: Imaging [facility] Comment on above: Arrived Start: 01-09-2023 ambulatory TIM SACRAMENTO Facility: [facility] Start: 01-09-2023 Encounter for other preprocedural examination ESAU HERNANDEZ Facility:[facility] Start: 01-09-2023 ambulatory TIM SACRAMENTO Facility: [facility] Start: 12-10-2022 End: 12-10-2022 Office outpatient new 45 minutes Evy Verma MD Work Phone: [facility] 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) Start: 12-10-2022 ambulatory RAINA CHINCHILLA Facilit y:[facility] Start: 11-27-2022 ambulatory TIM ROLON Facility: [facility] Start: 11-19-2022 ambulatory TIM BALL Facility: [facility] Start: 11-14-2022 ambulatory TIM BALL Facility: [facility] Start: 11-08-2022 End: 11-08-2022 Office outpatient visit 40 minutes Riana Chinchilla FINGER GRIP MACHINE OPERATOR-SECURITY INCIDENT HANDLER Work Phone: Neurology [facility] 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) Start: 11-08-2022 ambulatory RIANA CHINCHILLA Facilit y:[facility] Start: 09-19-2022 ambulatory TIM ROLON Facility: [facility] Start: 09-13-2022 ambulatory SELF SELF Facility:[facility] Start: 05-23-2022 End: 05-24-[address] DONOVAN BURKS . Facility: Start: 04-30-2022 End: 05-01-[address] DOCTOR ASHTON Facility:[facility] Start: 04-16-2022 End: 04-17-[address] DONOVAN BURKS . Facility: Start: 04-15-2022 End: 04-16-[address] DONOVAN BURKS . Facility: Start: 08-27-2021 End: 08-27-[address] DONOVAN BURKS . Facility: Start: 07-04-2021 End: 07-04-2021 Office outpatient visit 25 minutes Riana Chinchilla FINGER GRIP MACHINE OPERATOR-SECURITY INCIDENT HANDLER Work Phone: Neurology [facility] Comment on above: Generalized nonconvu lsive epilepsy (Primary Dx) Start: 06-24-2018 Encounter for gynecological examination (general) (routine) without abnormal findings NA NONE PER PATIENT [facility] Start: 06-24-2018 End: 06-24-2018 Patient encounter procedure GERARDO WARD Facility:[facility] Start: 05-25-2018 End: 05-25-2018 Patient encounter procedure . NONE PER PATIENT Facility:[facility] Start: 05-13-2018 End: 05-13-2018 Patient encounter procedure . NONE PER PATIENT Facility:[facility] Start: 03-23-2018 End: 03-24-2018 Patient encounter procedure JAMIL A [facility] Start: 03-20-2018 End: 03-21-2018 Patient encounter procedure [facility] Procedures Date Procedure Procedure Detail Performing Clinician Start: 02-18-2024 ALL PROGESTERONE Donovan Kimmie DO Work Phone: Start: 01-16-2024 ALL PROGESTERONE Donovan Kimmie DO Work Phone: Start: 12-15-2023 ALL PROGESTERONE Donovan Kimmie DO Work Phone: Start: 11-12-2023 ALL PROGESTERONE Donovan Kimmie DO Work Phone: [...] By: #### C D #### Performed at [facility], [address] [place] [id number] Start: 03-23-2018 PLATELET FUNCTION TEST JAMIL SMITH Plan of Treatment Date Care Activity Detail Author Start: 10-28-2024 End: 10-28-2024 Patient encounter procedure 10/28/2024 9:00 AM EDT Office Visit [facility] [address] [place] [address] Donovan Burks, DO [address] [place] [address] [place] [address] [facility] Start: 01-22-2024 End: 01-22-2024 Patient encounter procedure 01/22/2024 9:15 AM EST Office Visit Neurology [facility] [address] [place] [phone] Cori Dia, DO [address] [place] [address] Neurology [facility] Start: 11-28-2023 End: 11-28-2023 Patient encounter procedure 11/28/2023 10:20 AM EDT Office Visit [facility] [address] [place] [address] Riana Chinchilla, FINGER GRIP MACHINE OPERATOR-SECURITY INCIDENT HANDLER [address] [place] [phone] [facility] [place] Start: 11-09-2023 COVID-19 VACCINE ( season) COVID-19 VACCINE ( season) [facility] Start: 11-09-[address] [facility] Start: 08-21-2023 End: 08-21-2023 Patient encounter procedure 08/21/2023 2:45 PM EDT Office Visit Neurology [facility] [address] [place] [phone] Cori Dia, DO [address] [place], [place] [id number] Neurology [facility] Start: 05-28-2023 End: 05-28-2023 Patient encounter procedure 05/28/2023 2:00 PM EDT Office Visit Neurology [facility] [address] [place] [address] RaoulRiana, FINGER GRIP MACHINE OPERATOR-SECURITY INCIDENT HANDLER [address] [place] [address] Neurology [facility] Start: 02-14-2023 End: 02-14-2023 Patient encounter procedure Neurology [facility] Start: 01-15-2023 End: 01-15-2023 Admission to same day surgery center 01/15/2023 9:40 AM EST - 01/15/2023 11:50 AM EST Surgery [facility] [address] [place] [address] Eyv Verma MD [address] [place] [address] INSERTION REPLACEMENT NEUROSTIMULATOR GENERATOR CRANIAL/INTRACRANIAL [facility] Comment on above: INSERTION REPLACEMENT NEUROSTIMULATOR GE NERATOR CRANIAL/INTRACRANIAL Start: 01-15-2023 End: 01-15-2023 Insj/rplcmt cranial neurostim pulse generator INSERTION REPLACEMENT NEUROSTIMULATOR GENERATOR CRANIAL/INTRACRANIAL Jeavons syndrome 01/15/2023 9:40 AM EST [facility] Start: 01-15-2023 Subsequent hospital visit by physician 01/15/2023 9:40 AM EST Hospital Encounter [facility] [address] [place] [address] Evy Verma MD [address] [place] [address] Jeavons syndrome [facility] 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 Start: 12-10-2022 End: 12-11-2023 Radiographic imaging procedure XR STIMULATOR/INTRATHECAL PUMP Imaging Routine Jeavons syndrome Expected: 12/10/2022, Expires: 12/11/2023 [facility] Comment on above: Expected: 12/10/2022, Expires: Start: 12-10-2022 End: 12-10-2022 Patient encounter procedure 12/10/2022 11:30 AM EDT [facility] [address] [place] [phone] Evy Verma MD [address] [facility] 1st [place] [phone] [facility] Start: 11-08-2022 COVID-19 VACCINE ( season) COVID-19 VACCINE ( season) [facility] Start: 11-08-2022 Influenza vaccination INFLUENZA VACCINE (#1) [facility] Start: 01-04-2022 End: 01-04-2022 Patient encounter procedure 01/04/2022 Office Visit Neurology Cori Dia, [address] [place] [address] Neurology [facility] Start: 11-08-2021 Influenza vaccination INFLUENZA VACCINE (Season Ended) [facility] Start: 10-10-2021 End: 10-10-2021 Telemedicine consultation with patient 10/10/2021 Telemedicine Neurology Riana Chinchilla, FINGER GRIP MACHINE OPERATOR-SECURITY INCIDENT HANDLER [address] [place] [phone] Neurology [facility] Start: 08-15-2021 End: 08-15-2021 Telemedicine consultation with patient 08/15/2021 Telemedicine Neurology Riana Chinchilla, FINGER GRIP MACHINE OPERATOR-SECURITY INCIDENT HANDLER [address] [place] [phone] Neurology [facility] Start: 2013 Screening for malignant neoplasm of cervix CERVICAL CANCER SCREENING DISCUSSION [facility] Start: 07-15-2011 Hepatitis B vaccination HEP B VACCINE (1 of 3 - 19+ 3-dose series) [facility] Start: 07-15-2011 Third diphtheria, tetanus and acellular pertussis (DTaP) vaccination TDAP (ADULT) [facility] Start: [address] [facility] Start: 07-15-2007 HIV screening HIV SCREENING DISCUSSION [facility] Start: 1997 COVID-19 VACCINE (1) COVID-19 VACCINE (1) [facility] Start: 01-14-1993 COVID-19 VACCINE (#1) COVID-19 VACCINE (#1) [facility] Start: 1992 Hepatitis B vaccination HEP B VACCINE (1 of 3 - 3-dose series) [facility] Start: 1992 Hepatitis C antibody, confirmatory test HEPATITIS C VIRUS SCREENING [facility] Start: 1992 Hepatitis C screening HEPATITIS C VIRUS SCREENING [facility] Start: [address] [facility] Ecg routine ecg w/le ast 12 lds w/i&r WI ELECTROCARDIOGRAM, COMPLETE WI - OFFICE PERFORMED Routine 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 Ordered: 01/09/2023 [facility] Comment on above: Ordered: 01/09/2023 Elec horace implt npgt phys/qhp w/o programming WI ELEC HORACE IMPLT NPGT PHYS/QHP W/O PROGRAMMING WI Charge Routine Jeavons syndrome Ordered: 09/09/2023 [facility] Comment on above: Ordered: 09/09/2023 Elec horace implt smpl cn npgt prgrmg WI ELEC HORACE IMPLT SMPL CN NPGT PRGRMG WI Charge Routine Jeavons syndrome Ordered: 11/14/2022 [facility] Comment on above: Ordered: 11/14/2022 Elec horace implt smpl cn npgt prgrmg WI ELEC HORACE IMPLT SMPL CN NPGT PRGRMG WI Charge Routine 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 Ordered: 03/12/2023 [facility] Comment on above: Ordered: 03/12/2023 Elec horace implt smpl cn npgt prgrmg WI ELEC HORACE IMPLT SMPL CN NPGT PRGRMG WI Charge Routine Jeavons syndrome Ordered: 06/21/2023 [facility] Comment on above: Ordered: 06/21/2023 Insj/rplcmt cranial neurostim pulse generator INSERTION REPLACEMENT NEUROSTIMULATOR GENERATOR CRANIAL/INTRACRANIAL Jeavons syndrome [facility] Noninvasive ear/puls e oximetry single deter WI NONINVASV OXYGEN SATUR; SINGLE WI - OFFICE PERFORMED Routine 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 Ordered: 01/09/2023 [facility] Comment on above: Ordered: 01/09/2023 Immunizations Immunization Date Immunization Notes Care Provider [facility] 01-04-2014 influenza, seasonal, injectable, preservative free Evy Verma MD Work Phone: [facility] 01-04-2014 influenza virus vaccine, unspecified formulation Riana Chinchilla APRN-SECURITY INCIDENT HANDLER Work Phone: [facility] Payers Date Payer Category Payer Unknown [id number] 2021 Medicaid [employer] [place] [id number] 2021-Present [address] [place] [id number] 2021 Private Health Insurance [facility] MEDICAID [id number] 2016 Unknown [id number] 2016 Self-pay 2014 Unknown [id number] 1992 Unknown [id number] 2.16.840.1.843456.3.579.2. 173 1992 Unknown [id number] 2.16.840.1.103720.3.579.2. 173 1992 Unknown [id number] 2.16.840.1.180528.3.579.2. 754 1992 Unknown [id number] 2.16.840.1.230106.3.579.2. 754 1992 Unknown [id number] 2.16.840.1.210910.3.579.2. 754 1992 Unknown [id number] 2.16.840.1.675673.3.579.2. 754 1992 Unknown [id number] 2.16.840.1.249421.3.579.2. 593 1992 Unknown [id number] 2.16.840.1.937851.3.579.2. 593 1992 Unknown [id number] 2.16.840.1.876255.3.579.2. 593 1992 Unknown [id number] 2.16.840.1.005857.3.579.2. 593 1992 Unknown [id number] 2.16.840.1.392091.3.579.2. 593 1992 Unknown [id number] 2.16.840.1.185771.3.579.2. 1259 1992 Unknown [id number] 2.16.840.1.497731.3.579.2. 594 1992 Unknown [id number] 2.16.840.1.907991.3.579.2. 594 1992 Unknown [id number] 2.16.840.1.268384.3.579.2. 594 1992 Unknown [id number] 2.16.840.1.471329.3.579.2. 594 1992 Unknown [id number] 2.16.840.1.060461.3.579.2. 594 1992 Unknown [id number] 2.16.840.1.502921.3.579.2. 594 1992 Unknown [id number] 2.16.840.1.093052.3.579.2. 594 1992 Unknown [id number] 2.16.840.1.461347.3.579.2. 594 1992 Unknown [id number] 2.16.840.1.856362.3.579.2. 594 1992 Unknown [id number] 2.16.840.1.412873.3.579.2. 594 1992 Unknown [id number] 2.16.840.1.742401.3.579.2. 594 1992 Unknown [id number] 2.16.840.1.473889.3.579.2. 594 1992 Unknown [id number] 2.16.840.1.715579.3.579.2. 594 1992 Unknown [id number] 2.16.840.1.914273.3.579.2. 594 1992 Unknown [id number] 2.16840.1.472410.3.579.2. 594 1992 Unknown [id number] 2.16840.1.658489.3.579.2. 1259 1992 Unknown [id number] 2.16840.1.025158.3.579.2. 1259 1959 Unknown [id number] 1959 Unknown [id number] Social History Date Type Detail Facility Start: 10-28-2019 End: 09-11-2022 Tobacco smoking status NHIS Never smoked tobacco [facility] Start: 10-28-2019 End: 09-11-2022 Tobacco use and exposure Smokeless tobacco non-user [facility] Start: 10-28-2019 Alcohol intake Current drinker of alcohol (finding) [facility] Start: 10-28-2019 History SDOH Alcohol Frequency 2 [facility] Start: 10-28-2019 History SDOH Alcohol Comment rare wine [facility] Start: 10-28-[address] [facility] Start: 1992 Sex Assigned At Not on file [facility] Start: 11-08-2022 End: 09-09-2023 Alcohol intake Ex-drinker (finding) [facility] Start: 10-28-2019 End: 10-20-2023 History of Social function [facility] Start: 10-28-2019 End: 10-20-2023 Alcohol Use Disorder Identification Test - Consumption [AUDIT-C] [facility] How often to you hav e a drink containing alcohol? Monthly or less [facility] Average Number of Drinks Not on file [facility] Start: 10-29-2019 Gender identity Identifies as female gender (finding) [facility] Start: 10-29-2019 Sexual orientation Heterosexual (finding) [facility] Start: 02-14-[address] [facility] Start: 02-14-2023 Alcohol Comment At most one or two drinks a month. [facility] Start: 04-22-2023 End: 10-20-2023 Alcohol intake Not Asked [facility] Start: 08-07-2022 Alcohol Comment Occasional alcohol use [facility] Start: 1992 Sex Assigned At Female [facility] Medical Equipment Procedure Code Equipment Code Equipment Origin al Text Equipment Identifier Dates [employer] [id number] Start: 01-15-2023 Clinical Notes 07-04-2021 to 11-19-2023 Telephone Encounter - Namrata Tony - 11/19/2023 1:05 PM EDTTelephone Encounter - Namrata Tony - 11/19/2023 1:05 PM EDTTelephone Encounter - Helena Meza MA - 11/14/2023 10:01 AM EDT Note Date & Type Note Facility 11-19-2023 Telephone encounter Note Images from the original note were not included. Medication Access Team coordinated the following [facility] Clinics: MS/Neurology Prior Authorization Per the patient's insurance provider, [facility], the prior authorization for LAMOTRIGINE 300 (on-label) was approved. Authorization number: [id number] Authorization start date: 11/14/23 Authorization end date: 11/12/24 Non-Specialty Prescriptions: 1, 20-25 min [facility] 11-19-2023 Miscellaneous Notes Images from the original note were not included. Medication Access Team coordinated the following [facility] Clinics: MS/Neurology Prior Authorization Per the patient's insurance provider, [facility], the prior authorization for LAMOTRIGINE 300 (on-label) was approved. Authorization number: [id number] Authorization start date: 11/14/23 Authorization end date: 11/12/24 Non-Specialty Prescriptions: 1, 20-25 min Namrata Tony documented in this encounter [facility] 11-14-2023 Telephone encounter Note Images from the original note were not included. *Documentation only- I did not speak with the patient. Received fax from [employer] stating PA is needed for Lamotrigine ER 300 mg tablets. Current auth expires 11/25/2023. [facility] 11-14-2023 Miscellaneous Notes Images from the original note were not included. *Documentation only- I did not speak with the patient. Received fax from [employer] stating PA is needed for Lamotrigine ER 300 mg tablets. Current auth expires 11/25/2023. documented in this encounter [facility] 08-21-2023 History of Present illness Narrative Reason [...] 24 hours. 2 Each 0 Prenat MV-Min w/Ha-Stdkhz-OGG ( COMPLETE PO) Take 1 tablet by [...] AW Model ID [employer] [id number] Serial # [id number] Implanted 03/27/2018 Communication Output Current Status Current [...] of questions or concerns. Cori Hernández DO Social Services Manager Department of Neurology, Epilepsy Division [facility] documented in this encounter [facility] 08-21-2023 Instructions Cori Meek DO - [...] you can call the Neurology clinic at [phone]. If you have access through [employer], you can contact me through that system as well. documented in this encounter [facility] 05-28-2023 History of Present illness Narrative Images from the original note were not included. Rowena Drake was seen in the [facility] Ep[facility]psy Center at [facility] on 05/28/2023. She is here today [...] 24 hours. 2 Each 0 Prenat MV-Min w/Ng-Wyinas-TIA ( COMPLETE PO) Take 1 tablet by [...] at the [facility]? Yes If you have tried 2 or 3 anti-seizure medications and your seizures are still not controlled, are you interested in learning about surgical options for your epilepsy that we can offer at the [facility]? No Neurological Disorders Depression Inventory for Epilepsy [...] 01/15/2023 Model Number 1000 1000 Serial Number [id number] Output Current (mA) 2.5 mA 2.25 mA [...] and continue maintenance dose of clobazam - WI ELEC HORACE IMPLT SMPL CN NPGT PRGRMG [...] 45 tablet; Refill: 2 Encouraged use of [employer] to send messages to provider as needed for questions and concerns or can call our clinic @ [phone]. She will return in [address] Hernández or sooner if clinically indicated. Signed, Riana Chinchilla MSN, FINGER GRIP MACHINE OPERATOR-SECURITY INCIDENT HANDLER [facility] Department of Neurology - Epilepsy Division [address] [place] [address] - 7th floor [place] [address] Pager: [phone] I spent a total of 35 minutes on the date of the service which included preparing to see the patient, cbbs-gl-qbdi patient care, completing clinical documentation, performing a medically appropriate examination and counseling and educating the patient/family/caregiver. Note to patient: The 21st Century Cures Act makes medical notes like these available to patients in the interest of transparency. However, be advised this is a medical document. It is intended as coxa-uu-rbxz communication. It is written in medical language and may contain abbreviations or verbiage that are unfamiliar. It may appear blunt or direct. Medical documents are intended to carry relevant information, facts as evident, and the clinical opinion of the practitioner. documented in this encounter [facility] 04-22-2023 History of Present illness Narrative [...] nursing note reviewed. Exam conducted with a keyseater operator present. Vitals: Estimated body mass index is [...] Donovan Burks DO documented in this encounter [facility] 02-14-2023 History of Present illness Narrative Images from the original note were not included. Rowena Byers was seen in the Comprehensive Epilepsy Center at [facility] on 02/14/2023. She is here today [...] 24 hours. 2 Each 0 Prenat MV-Min w/Nv-Stvitv-SSU ( COMPLETE PO) Take 1 tablet by [...] ID ABW Model ID [employer]iva Serial # [id number] Implanted 01/15/2023 Communication OK Output Current Status [...] VNS Simple Reprogramming (1-3 changes) CPT code 06854 Assessment and Plan Assessment: Rowena is a [...] longer than 5 minutes. Encouraged use of [employer] to send messages to provider as needed for questions and concerns or can call our clinic @ [phone]. She will return in 3 months with me and [address] Hernández or sooner if clinically indicated. Signed, Riana Chinchilla MSN, NOLBERTO-SECURITY INCIDENT HANDLER [facility] Department of Neurology - Epilepsy Division [address] [place] [address] - 7th floor [place], [place] [address] Pager: [phone] I spent a total of 34 minutes on the date of the service which included preparing to see the patient, tyti-sh-wqlo patient care, completing clinical documentation, performing a medically appropriate examination and counseling and educating the patient/family/caregiver. Note to patient: The 21st Century Cures Act makes medical notes like these available to patients in the interest of transparency. However, be advised this is a medical document. It is intended as wrtm-ny-fgrm communication. It is written in medical language and may contain abbreviations or verbiage that are unfamiliar. It may appear blunt or direct. Medical documents are intended to carry relevant information, facts as evident, and the clinical opinion of the practitioner. documented in this encounter [facility] 02-14-2023 Instructions JETHRO Juan - 02/14/2023 4:00 [...] after regular office hours, a neurologist is precision optical goods worker for urgent issues. Call the neurology office number ([phone]) to reach the neurologist precision optical goods worker if you are continuing to experience many more seizures than usual despite use of your rescue medications. Please try to remember that the neurologist precision optical goods worker may not have access to your complete medical record and may not be as familiar with your history. If you have access through [employer], you can contact us through that system as well. If you have documents that need completed or sent to our clinic, please have them faxed to [phone]. It is always best to call during [...] the refill is ready for you to pick up worker. Seizure First Aid Training Can Be Found Here (it's free!): [email or web address] nd documented in this encounter [facility] 01-15-2023 Miscellaneous Notes [facility] OPERATIVE REPORT PATIENT NAME: Rowena Byers PROCEDURE [...] The IPG had been interrogated by the practice representative from the vendor. The upper chest [...] the new IPG and secured with the spring setter's screwdriver. At this point, a senior java programmer was used to interrogate the new [...] VSS, anesthesia sign out completed. 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 SURGEON Surgeon(s) and Role: * Evy Verma MD - Primary ANESTHESIOLOGIST Anesthesiologist: Cydney Zavala MD PULLMAN CAR REPAIRER: Geraldo Marion APRN-PULLMAN CAR REPAIRER Student Nurse Sharepoint Analyst: Chiquita Polanco SURGICAL STAFF Test Architect: Miki Gary RN; Linda Gilmore RN Relief Test Architect: Janet Carreon RN Scrub Person: Marielle Ibrahim Resident Assisting: Colt Meadows MD COMPLICATIONS None ESTIMATED BLOOD LOSS Minimal SPECIMENS No specimen sent * No specimens in log * Colt Meadows MD January 15, 2023 11:03 AM documented in this encounter [facility] 01-15-2023 Nurse Note Pt and family were given AVS and verbalize understanding of instructions. Pt discharged via wheelchair. [facility] 01-15-2023 Surgery Postoperative evaluation and management note [facility] OPERATIVE REPORT PATIENT NAME: Rowena Byers PROCEDURE [...] The IPG had been interrogated by the practice representative from the vendor. The upper chest [...] the new IPG and secured with the spring setter's screwdriver. At this point, a senior java programmer was used to interrogate the new [...] entire procedure and performed the critical portions. [facility] 01-15-2023 Nurse Note Report called to RN SPR, VSS, anesthesia sign out completed. 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 SURGEON Surgeon(s) and Role: * Evy Verma MD - Primary ANESTHESIOLOGIST Anesthesiologist: Cydney Zavala MD PULLMAN CAR REPAIRER: Geraldo Marion APRN-PULLMAN CAR REPAIRER Student Nurse Sharepoint Analyst: Chiquita Polanco SURGICAL STAFF Test Architect: Miki Gary RN; Linda Gilmore RN Relief Test Architect: Janet Carreon RN Scrub Person: Marielle Ibrahim Resident Assisting: Colt Meadows MD COMPLICATIONS None ESTIMATED BLOOD LOSS Minimal SPECIMENS No specimen sent * No specimens in log * Colt Meadows MD January 15, 2023 11:[address] [facility] 01-15-2023 Nurse Surgical operation note Report given to TRACK SURFACING MACHINE OPERATOR. Patient transported to PACU with anesthesia on a cart and oxygen. [facility] 01-15-2023 Nurse Note Report given to TRACK SURFACING MACHINE OPERATOR. Patient transported to PACU with anesthesia on a cart and oxygen. documented in this encounter [facility] 01-15-2023 Hospital Discharge instructions Colt Meadows MD - 01/15/2023 9:30 AM EST Discharge Instructions for DBS Surgery & Battery Placement Surgery Here are some general guidelines to assist you in your recovery at home. Please do not hesitate to call us with any questions or concerns you may have. We can be reached at [phone]. Your appointmentS will be in the Neuromodulation clinic in [address] Incision Care: If you have a [...] degrees F documented in this encounter [facility] 01-15-2023 History and physical note PERIOPERATIVE SURGICAL [...] by Evy Verma MD, 01/15/2023, 9:[address] [facility] Work Phone: 01-15-2023 History and physical [...] 01/15/2023, 9:08 AM. documented in this encounter [facility] 01-09-2023 History and physical note Images [...] 10 mg in 24 hours. Prenat MV-Min w/Qi-Ohymfg-HMZ ( COMPLETE PO) Take 1 tablet by [...] % ointment HCG QUALITATIVE, URINE Pulse Ox WI ECG, CLINIC PERFORMED Lab A/P - Labs [...] FOR SURGERY. [facility] Perioperative Clinic [facility] [address] [facility] Review of Systems (OSUROS)Review of Systems [...] PCP - General (Internal Medicine) Riana Chinchilla APRN-SECURITY INCIDENT HANDLER (Certified Nurse Practitioner) Family History Problem Relation Age of Onset Prostate Cancer Maternal Grandfather Mental Illness Maternal Grandmother Depression , Anxiety Prostate Cancer Paternal Grandfather Cancer- Other Paternal Grandfather Diabetes Paternal Uncle Social History Socioeconomic History Marital status: Highest education level: Bachelor's degree (e.g., BA, AB, BS) 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 01-09-2023 History and physical note Images [...] 10 mg in 24 hours. Prenat MV-Min w/Co-Onbajy-XMG ( COMPLETE PO) Take 1 tablet by [...] % ointment HCG QUALITATIVE, URINE Pulse Ox WI ECG, CLINIC PERFORMED Lab A/P - Labs [...] SURGERY. [facility] Perioperative Clinic [facility] [address] [facility] Review of Systems (OSUROS)Review of Systems [...] PCP - General (Internal Medicine) Riana Chinchilla APRN-SECURITY INCIDENT HANDLER (Certified Nurse Practitioner) Family History Problem Relation Age of Onset Prostate Cancer Maternal Grandfather Mental Illness Maternal Grandmother Depression , Anxiety Prostate Cancer Paternal Grandfather Cancer- Other Paternal Grandfather Diabetes Paternal Uncle Social History Socioeconomic History Marital status: Highest education level: Bachelor's degree (e.g., BA, AB, BS) 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 01-09-2023 History of Present illness Narrative [...] seizures. She takes Lamictal for treatment 4. 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 Will check hCG today and on day of surgery. Patient understands that surgery may be cancelled if she is . Anesthesia Assessment:No contraindications to planned surgery. Pending review of the patient's labs.ECG reviewed. Whitney Ward MD [facility] Preoperative Assessment Center documented in this encounter [facility] 01-09-2023 Instructions Robyn Dempsey LPN - [...] take Herbal Medication (including multi-vitamin, fish oil ([place]-3), garlic, Glucosamine - Chondroitin ,gingko, ginseng, Vitamin [...] site one week prior to surgery. - Clover your teeth and rinse your mouth the morning of surgery. - Do NOT bring your dentures or partials with you into surgery. They may be lost. Give them to someone to bring to you after surgery. If you are unable to complete your scheduled testing or appointments made by [facility] please contact [facility] at [phone]. Failure to do so could delay or [...] surgery, please notify our team immediately at [phone]. - If you have Sleep apnea and have a CPAP or BIPAP, then bring your CPAP mask and machine with you to the hospital. Please contact Medical Information Management Department for all records requests. [phone] Puma/mateo documented in this encounter [facility] 12-10-2022 History of Present illness Narrative Neurosurgery [...] that were dedicated to clinical evaluation, including mily-iv-ercl time; counseling and education; chart completion; reviewing [...] aspirin, excedrin, plavix), multivitamins/minerals/herbal supplements (such as [place]-3, garlic, Glucosamine - Chondroitin, gingko, ginseng, Vitamin E, fish oil, etc), non-steroidal anti-inflammatory medications (NSAIDs) (such as Ibuprofen/Motrin/Advil, Aleve, Celebrex) for 10 days prior to surgery, as these are blood thinners. She was advised that Tylenol is the preferred option for pain. She stated understanding. documented in this encounter [facility] 11-08-2022 History of Present illness Narrative Images from the original note were not included. Rowena Byers was seen in the [facility] Ep[facility]psy Center at [facility] on 11/08/2022. She is here today [...] ID AW Model ID SenTiva Serial # [id number] Implanted 03/27/2018 Communication OK Output Current Status [...] VNS Simple Reprogramming (1-3 changes) CPT code 65444 Assessment and Plan Assessment: Rowena is a [...] would like to wait Encouraged use of [employer] to send messages to provider as needed for questions and concerns or can call our clinic @ [phone]. She will return in 2 months or sooner if clinically indicated. Signed, Riana Chinchilla MSN, FINGER GRIP MACHINE OPERATOR-SECURITY INCIDENT HANDLER [facility] Department of Neurology - Epilepsy Division [address] [place] [address] - 7th floor [place] [address] Pager: [phone] I spent a total of 46 minutes on the date of the service which included preparing to see the patient, [id number] patient care, completing clinical documentation, performing a medically appropriate examination and counseling and educating the patient/family/caregiver. Note to patient: The Century Cures Act makes medical notes like these available to patients in the interest of transparency. However, be advised this is a medical document. It is intended as [id number] communication. It is written in medical language and may contain abbreviations or verbiage that are unfamiliar. It may appear blunt or direct. Medical documents are intended to carry relevant information, facts as evident, and the clinical opinion of the practitioner. documented in this encounter [facility] 11-08-2022 Instructions JETHRO Juan - 11/08/2022 [...] ID AW Model ID SenTiva Serial # [id number] Implanted 03/27/2018 Communication OK Output Current Status OK Current Delivered 1.75 Lead Impedance OK Impedance Value 2903 IFI NO Average # of Inhibited Auto stimulations Daily Avg. Stim % Per Day %Therapy Normal 843.56 AutoStim 26.89 Magnet 0.04 Total 870.50 documented in this encounter [facility] 07-04-2021 Instructions JETHRO Juan - 07/04/2021 [...] weeks with Riana documented in this encounter [facility] 07-04-2021 History of Present illness Narrative Images from the original note were not included. Rowena Byers was seen in the [facility] at [facility] on 07/04/2021. She is here today [...] enjoys. 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 Encouraged use of [employer] to send messages to provider as needed for questions and concerns or can call our clinic @ [phone]. She will return in 6 weeks and 3 months with me and [address] Hernández or sooner if clinically indicated. Signed, Riana Chinchilla MSN, FINGER GRIP MACHINE OPERATOR-SECURITY INCIDENT HANDLER [facility] Department of Neurology - Epilepsy Division [address] [place] [address] - 7th floor [place] [address] Pager: [phone] Time to complete visit: I spent approximately 38 minutes reviewing the chart prior to the appointment, in face to face counseling with the patient, and with documentation after the visit. 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 Jeavons syndrome- Primary [facility] Jeavons syndrome- Primary [facility] Diagnosis Jeavons syndrome Jeavons syndrome [facility] Diagnosis Preop exam for internal medicine- Primary Other specified pre-operative examination 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 Other postprocedural status Jeavons syndrome 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 Other postprocedural status [facility] Encounter for fertility planning documented [facility] encounter [facility]* Diagnosis Jeavons syndrome- Primary Anxiety disorder, unspecified type [facility] Diagnosis Onset Date Resolution Status Maxillary sinusitis acute [facility] Work Phone: Evaluation note* Diagnosis Jeavons syndrome- Primary Anxiety disorder, unspecified type [facility] Diagnosis Onset Date Resolution Status Maxillary sinusitis acute Maxillary sinusitis acute [facility] Work Phone: Reason for referral (narrative)* Consultation (Routine) - New Request Specialty Diagnoses / Procedures Referred By Rainer ramos Referred To Contact Neurologic Surgery Diagnoses Jeavons syndrome Evy Verma MD [address] [place] [address] Referral ID Status Reason Start Date Expiration Date V isits Requested Visits Authorized [id number] New Request 12/10/2022 01/04/[address] [facility] Summary Purpose Family History Relationship Condition Age at Onset Recorded Date/T jogre grandparent Malignant neoplasm Unknown Advance Directives Advance Directive Response Recorded Date/ Time Advance Directives No July 06, 024 12:12pm Reason for Referral Specialty Diagnoses / Procedures Referred By Contharjinder t Referred To Contact Diagnoses Generalized nonconvulsive epilepsy Riana Chinchilla, FINGER GRIP MACHINE OPERATOR-SECURITY INCIDENT HANDLER [address] [place] [address] Referral ID Status Reason Start Date Expiration Date V isits Requested Visits Authorized [id number] Pending Review 1 1 Specialty Diagnoses / Procedures Referred By Rainer t Referred To Contact Procedures DVT/VTE RISK ASSESSMENT Evy Verma MD [address] [place] [address] Referral ID Status Reason Start Date Expiration Date V isits Requested Visits Authorized [id number] New Request 01/15/2023 02/09/2024 1 1 Chief Complaint and Reason for Visit Chief Complaint sinus infection Reason for Visit Maxillary sinusitis Chief Complaint sinus infection sinus infection Reason for Visit Maxillary sinusitis Maxillary sinusitis Additional Source Comments INFORMATION SOURCE (unrecogn ized section and content) DATE CREATED AUTHOR 09/03/2017 [facility] DATE CREATED AUTHOR AUTHOR'S ORGANIZ ATION 03/28/2018 [facility] DATE CREATED AUTHOR AUTHOR'S ORGANIZ ATION 07/02/2018 [facility] DATE CREATED AUTHOR AUTHOR'S ORGANIZ ATION 10/02/2019 [place] DATE CREATED AUTHOR AUTHOR'S ORGANIZ ATION 06/01/2022 [facility] DATE CREATED AUTHOR AUTHOR'S ORGANIZ ATION 04/24/2023 [facility] DATE CREATED AUTHOR AUTHOR'S ORGANIZ ATION 08/23/2023 [facility] DATE CREATED AUTHOR AUTHOR'S ORGANIZ ATION 10/21/2023 [facility] Reason for Visit (unrecogniz ed section and content) Reason Comments Follow-up Reason Comments Follow-up Reason Comments New Patient 32 y.o female here f or consult. Specialty Diagnoses / Procedures Referred By Contac t Referred To Contact Neurologic Surgery Diagnoses Jeavons syndrome S/P placement of VNS (vagus nerve stimulation) device Riana Chinchilla FINGER GRIP MACHINE OPERATOR-SECURITY INCIDENT HANDLER [address] [place] [phone] Referral ID Status Reason Start Date Expiration Date V isits Requested Visits Authorized [id number] New Request 09/19/2022 10/14/2023 1 1 Reason Comments Preoperative Assessment Specialty Diagnoses / Procedures Referred By Contac t Referred To Contact Neurologic Surgery Diagnoses Jeavons syndrome Evy Verma MD [address] [place] [phone] Referral ID Status Reason Start Date Expiration Date V isits Requested Visits Authorized [id number] New Request 12/10/2022 01/04/2024 1 1 Specialty Diagnoses / Procedures Referred By Contac t 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 [address] [place] [address] Referral ID Status Reason Start Date Expiration Date Visits Re quested Visits Authorized [id number] 1 1 Reason Comments Infertility Reason Onset Date Comments Insurance 11/14/2023 Lamotrigine ER Reason Onset Date Comments Insurance 11/19/2023 Care Teams (unrecognized sec tion and content) Manager Research Relationship Specialty Start Date End Date Tim Rolon DO [address] [place] [address] PCP - General Internal Medicine 09/19/22 Riana Chinchilla, FINGER GRIP MACHINE OPERATOR-SECURITY INCIDENT HANDLER [address] [place] [phone] Certified Nurse Practitioner 11/08/22 Manager Research Relationship Specialty Start Date End Date Tim Rolon DO [address] [place] [facility] [place] [phone] PCP - General Internal Medicine 09/19/22 Riana Chinchilla, FINGER GRIP MACHINE OPERATOR-SECURITY INCIDENT HANDLER [address] [place] [address], [place] [address] Certified Nurse Practitioner 11/08/22 Manager Research Relationship Specialty Start Date End Date Tim Rolon DO [address] [place] [address] PCP - General Internal Medicine 09/19/22 Riana Chinchilla, FINGER GRIP MACHINE OPERATOR-SECURITY INCIDENT HANDLER [address] [place] [phone] Certified Nurse Practitioner 11/08/22 Manager Research Relationship Specialty Start Date End Date Tim Rolon DO [address] [place] [facility] [place] [address] PCP - General Internal Medicine 09/19/22 Riana Chinchilla, FINGER GRIP MACHINE OPERATOR-SECURITY INCIDENT HANDLER [address] [place] [address], [place] [address] Certified Nurse Practitioner 11/08/22 Manager Research Relationship Specialty Start Date End Date Tim Rolon DO [address] [place] [address] PCP - General Internal Medicine 09/19/22 Riana Chinchilla, FINGER GRIP MACHINE OPERATOR-SECURITY INCIDENT HANDLER [address] [place] [address], [place] [phone] Certified Nurse Practitioner 11/08/22 Manager Research Relationship Specialty Start Date End Date Tim Rolon DO [address] [place] [address] PCP - General Internal Medicine 09/19/22 Riana Chinchilla FINGER GRIP MACHINE OPERATOR-SECURITY INCIDENT HANDLER [address] [place] [address] Certified Nurse Practitioner 11/08/22 Manager Research Relationship Specialty Start Date End Date Tim Rolon MD [address] [place] [address] PCP - General Internal Medicine 08/08/22 Manager Research Relationship Specialty Start Date End Date Tim Rolon DO [address] [place] [address] PCP - General Internal Medicine 09/19/22 Riana Chinchilla FINGER GRIP MACHINE OPERATOR-SECURITY INCIDENT HANDLER [address] [place] [address] Certified Nurse Practitioner 11/08/22 Team Status: [...] End: July 07, 2023 Kristine Oneill APRN PONDMAN-C Attending Provider Act duncan Start: July 07, 2023 End: July 07, 2023 Manager Research Relationship Specialty Start Date End Date Tim Rolon DO [address] [place] [address] PCP - General Internal Medicine 09/19/22 Riana Chinchilla, FINGER GRIP MACHINE OPERATOR-SECURITY INCIDENT HANDLER [address] [phone] Certified Nurse Practitioner 11/08/22 Team Status: Active Member Role Status Dates Tim Rolon DO Primary Care Provide r, Attending Provider Active Start: July 09, 2023 Team Status: Active Member Role Status Dates Tim Rolon , DO Primary Care Provide r, Attending Provider Active Start: August 08, 2023 Team Status: Active Member Role Status Dates Tim Rolon , Primary Care Provide r, Attending Provider Active Start: September 11, 2023 Team Status: Inactive Member Role Status Dates Tim Rolon , Primary Care Provider Active Start: September 24, 2023 End: September 24, 2023 Kristine Oneill APRN [employer]-C Attending Provider Act duncan Start: September 24, 2023 End: September 24, 2023 Manager Research Relationship Specialty Start Date End Date Tim Rolon DO [address] [place] [phone] PCP - General Internal Medicine 09/19/22 Riana Chinchilla, FINGER GRIP MACHINE OPERATOR-SECURITY INCIDENT HANDLER [address] [phone] Certified Nurse Practitioner 11/08/22 Manager Research Relationship Specialty Start Date End Date Tim Rolon MD [address] [place] [address] PCP - General Internal Medicine 08/08/22 Manager Research Relationship Specialty Start Date End Date Tim Rolon MD [address] [place] [phone] PCP - General Internal Medicine 08/08/22 Scheduled [...] - Comment: mixed 1:1 w/Lido with epi 1:[id number]) ceFAZolin (ANCEF) 2 g in dextrose 100 mL premix IVPB (COMPLETED) 2 g, Intravenous, Administer over 30 Minutes, WORKFORCE STAFFING ADVISOR TO PROCEDURE, 1 dose, Starting on Fri01/15/23 at 0758, Until Discontinued, Other, Surgical Prophylaxis, Initiate antibiotic administration 30-60 minutes prior to surgical incision and complete administration prior to surgical incision., Pre-op/Pre-Proc 0955 (Given - Provid er: Geraldo Marion, FINGER GRIP MACHINE OPERATOR-PULLMAN CAR REPAIRER) lidocaine-epinephrine 2 %-1:129889 injection (CANCELED) NEEDED, Starting on Fri01/15/23 at [...] Order-specific weight), Intravenous, Administer over 1 Hours, WORKFORCE STAFFING ADVISOR TO PROCEDURE, 1 dose, Starting on Fri01/15/23 [...] NEEDED, Starting on Fri01/15/23 at 1306, Until 11/8/23 at 1627, Nausea / Vomiting, Post-op/Post-Proc Group [...] BE BASED ON THE PRIMARY CLINICAL RECORDS. [facility]. provides no warranty or guarantee of the accuracy or completeness of information in this document.
[2024-05-28 04:07] LABS: Progesterone 17.1 ng/mL (.)
== END 2024-05-26 16:52 | disposition home or self-care (01) ==
LOC: LAB 16:51
PROVIDERS: PCP Internal Medicine; Visit Provider Obstetrics & Gynecology
DX: N97.9 Female infertility, unspecified (principal); N97.0 Female infertility associated with anovulation
CPT/HCPCS: 36415; 84144

== ENCOUNTER 2024-06-28 16:17 | Outpatient (OUT) | payer OTHER, SELFPAY ==
--- OUTSIDE RECORDS SUMMARY | 2024-06-28 16:46 | XMS_ITS | CCD ---
Author Organization [facility] Care Team Providers Care Remnant Sorter Name Role Phone JAMIL SMITH Referring Unavailable [...] Tim Rolon DO Primary Care Provider Raoul MACHINE SETTER AUTOMATIC-FLOOR INSTALLER, Crystal G Unavailable Tim Rolon MD Primary Care Provider DONOVAN BURKS Attending Unavailable Raoul MACHINE SETTER AUTOMATIC-FLOOR INSTALLER, Crystal G Unavailable DONOVAN BURKS Attending Unavailable LEE ANNMADONNA GONZALEZ Attending Unavailable DONOVAN BURKS Attending Unavailable CORI HERNÁNDEZ Attending Unavailable TIM ROLON Primary Care Unavailable SELF, SELF Referring Unavailable TIM ROLON Referring Unavailable TIM ROLON Primary Care Unavailable CORI HERNÁNDEZ Attending Unavailable Allergies Allergy Classification Reported Allergen(s) Allergy Type Date of Onset Reaction(s) Facility (11 sources) Seasonal allergy Propensity to adverse reactions to drug 7 Runny Nose, Congestion [facility] Work Phone: (7 sources) Pollen Propensity to adverse reactions 7 Runny nose [facility] (7 sources) Other Propensity to adverse reactions 2 [...] mg / cholecalciferol 500 unt oral capsule (7 sources) Vitamin D Start: 2023 Calcium Carb-Cholecalciferol [...] 2023 12:00am escitalopram 20 mg oral tablet (6 sources) Serotonin Reuptake Inhibitor Start: 04-30-2021 take 1 tablet by mouth once daily at dinner escitalopram 20 MG tablet Indications: Seizure disorder Take 1 tablet by mouth Daily (with dinner). 30 tablet 11 04/30/2021 Active folic acid 1 mg oral tablet (20 sources) Start: 07-07-2023 take 1 mg by [...] 08/21/2023 Discontinued loratadine 10 mg oral tablet (16 sources) take 1 tablet by mouth every twenty-four hours as needed loratadine (Claritin) 10 MG tablet Take 10 mg by mouth Daily as needed Active 12 hr loratadine 5 mg / pseudoephedrine sulfate 120 mg extended release oral tablet (7 sources) alpha-Adrenergic Agonist take 1 tablet by mouth once in the morning, then take 1 tablet by mouth every twelve hours at bedtime loratadine-pseudo ephedrine ER (Claritin-D 12-hour) 5-120 MG 12 hr tablet Take 1 tablet by mouth in the morning and 1 tablet before bedtime. Do not crush, chew, or split. . 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 Active 24 hr metFORMIN hydrochloride 500 mg extended release oral tablet (20 sources) Biguanide Start: 05-24-2024 take 1 tablet by mouth once daily at dinner metFORMIN XR (Glucophage-XR) 500 MG 24 hr tablet Indications: PCOS (polycystic ovarian syndrome) TAKE 1 TABLET BY MOUTH EVERY DAY WITH EVENING MEAL 90 tablet 3 05/24/2024 Active Start: 07-07-2023 take 500 mg by mouth once carli y Metformin Active 500 MG PO Daily July [...] Vitamins-Minerals ( CULTURELLE PROBIOTICS + MULTIV PO) (7 sources) Multiple Vitamin s-Minerals (CULTURELLE PROBIOTICS + MULTIV PO) Take by mouth Active Multiple Vitamin s-Minerals (CULTURELLE PROBIOTICS + MULTIV PO) Take by mouth 0 Active Prenat MV-Min w/Ie-Pcoons-OS A ( COMPLETE PO) (8 sources) take 1 tablet by josh th once at bedtime Prenat MV-Min w/Nt-Tgqdkk-EST ( COMPLETE PO) Take 1 tablet by mouth at bedtime. Active take 1 tablet by mouth once at b edtime Prenat MV-Min w/Fm-Amgkra-VDM ( COMPLETE PO) Take 1 tablet by mouth at bedtime. 0 Active MV-Min-Fe Fum-FA-DH A ( 1 PO) (7 sources) MV-Min- Fe Fum-FA-DHA ( 1 PO) [...] SYNDROME] Onset: 05-23-2022 Chronic Other endocrine disorders (7 sources) Polycystic ovary syndrome; Translations: [Polycystic ovarian syndrome] Onset: 12-10-2022 12-10-2022 Chronic Other nutritional; endocrine; and metabolic disorders (11 sources) Obese class II; Translations: [Obesity, unspecified] Onset: 10-28-2019 10-28-2019 Chronic Other upper respiratory infections (5 sources) Maxillary sinusitis; Translations: [Chronic maxillary sinusitis] 07-07-2023 Chronic Residual codes; unclassified (2 sources) Presence of other specified functional implants; [...] Value Interpretation Reference Range Facility ALL PROGESTERONEon 5 PROGESTERONE 17.1 ng/mL . [facility] Comment on above: Follicular phase 0. 1 - 0.9 Luteal phase 1.8 - 23.9 Ovulation phase 0.1 - 12.0 First trimester 11.0 - 44.3 Second trimester 25.4 - 83.3 Third trimester 58.7 - 214.0 Postmenopausal 0.0 - 0.1 Performed at: - [facility] [address] [place] [id number] Hat Marker: Ino Dougherty PhD, Phone: [phone] [facility] PROGESTERONEon 4 PROGESTERONE 21.2 ng/mL . [facility] Comment on above: Follicular phase 0.1 - 0.9 Luteal phase 1.8 - 23.9 Ovulation phase 0.1 - 12.0 First trimester 11.0 - 44.3 Second trimester 25.4 - 83.3 Third trimester 58.7 - 214.0 Postmenopausal 0.0 - 0.1 Performed at: [address] [id number] Hat Marker: Ino Dougherty PhD, Phone: [phone] [facility] [employer] ALL PROGESTERONEon 4 PROGESTERONE 25.4 ng/mL . [facility] Comment on above: Follicular phase 0.1 - 0.9 Luteal phase 1.8 - 23.9 Ovulation phase 0.1 - 12.0 First trimester 11.0 - 44.3 Second trimester 25.4 - 83.3 Third trimester 58.7 - 214.0 Postmenopausal 0.0 - 0.1 Performed at: [address] [id number] Hat Marker: Ino Dougherty PhD, Phone: [phone] [employer] ALL PROGESTERONEon 4 PROGESTERONE 19.7 ng/mL . [facility] [employer] Comment on above: Follicular phase 0.1 - 0.9 Luteal phase 1.8 - 23.9 Ovulation phase 0.1 - 12.0 First trimester 11.0 - 44.3 Second trimester 25.4 - 83.3 Third trimester 58.7 - 214.0 Postmenopausal 0.0 - 0.1 Performed at: [address] [id number] Hat Marker: Ino Dougherty PhD, Phone: [phone] [facility] [employer] ALL PROGESTERONEon 4 PROGESTERONE 20.0 ng/mL . [facility] Comment on above: Follicular phase 0.1 - 0.9 Luteal phase 1.8 - 23.9 Ovulation phase 0.1 - 12.0 First trimester 11.0 - 44.3 Second trimester 25.4 - 83.3 Third trimester 58.7 - 214.0 Postmenopausal 0.0 - 0.1 Performed at: [address] [id number] Hat Marker: Ino Dougherty PhD, Phone: [phone] [facility] [employer] Serum or plasma progesterone measurement (mass/volume)on 09-11-2023 Progesterone [Mass/Vol] 12.9 ng/mL . [facility] Comment on above: Follicular phase 0.1 - 0.9 Luteal phase 1.8 - 23.9 Ovulation phase 0.1 - 12.0 First trimester 11.0 - 44.3 Second trimester 25.4 - 83.3 Third trimester 58.7 - 214.0 Postmenopausal 0.0 - 0.1Performed at: [facility] [place], [place] [id number] Director: Ino Dougherty PhD, Phone: [phone] Serum or plasma progesterone measurement (mass/volume)on 08-08-2023 Progesterone [Mass/Vol] 11.3 ng/mL . [facility] Comment on above: Follicular phase 0.1 - 0.9 Luteal phase 1.8 - 23.9 Ovulation phase 0.1 - 12.0 First trimester 11.0 - 44.3 Second trimester 25.4 - 83.3 Third trimester 58.7 - 214.0 Postmenopausal 0.0 - 0.1Performed at: [facility] [place], [place] [id number] Director: Ino Dougherty PhD, Phone: [phone] Serum or plasma progesterone measurement (mass/volume)on 07-09-2023 Progesterone [Mass/Vol] 16.6 ng/mL . [facility] Comment on above: Follicular phase 0.1 - 0.9 Luteal phase 1.8 - 23.9 Ovulation phase 0.1 - 12.0 First trimester 11.0 - 44.3 Second trimester 25.4 - 83.3 Third trimester 58.7 - 214.0 Postmenopausal 0.0 - 0.1Performed at: [facility] [place], [place] [id number] Director: Ino Dougherty PhD, Phone: [phone] No Panel Informationon 06-26 Human Chorionic Gonadotropin, Quant <1 mIU/mL [facility] Comment on above: 5-50 0.2-1 [id number] 0 1-2 JZOEP791-0,000 2-3 IKDES364-60,000 3-4 WEEKS1,000-50,000 4-5 WEEKS10,000-100,000 5-6 WEEKS15,000-200,000 6-8 WEEKS10,000-100,000 2-3 MONTHS Serum or plasma progesterone measurement (mass/volume)on 06-08-2023 Progesterone [Mass/Vol] 20.7 ng/mL . [facility] Comment on above: Follicular phase 0.1 - 0.9 Luteal phase 1.8 - 23.9 Ovulation phase 0.1 - 12.0 First trimester 11.0 - 44.3 Second trimester 25.4 - 83.3 Third trimester 58.7 - 214.0 Postmenopausal 0.0 - 0.1Performed at: [place], [place] [id number] Director: Ino Dougherty PhD, Phone: [phone] Laboratory - Chemistry and C hemistry - challengeon 05-09-2023 Free T4 [Mass/Vol] 0.77 ng/dL 0.76-1.46 [facility] No Panel Informationon 05-08 Free Triiodothyronine 2.78 pg/mL 2.18-3.98 [facility] Serum or plasma progesterone measurement (mass/volume)on 05-09-2023 Progesterone [Mass/Vol] 19.3 ng/mL . [facility] Comment on above: Follicular phase 0.1 - 0.9 Luteal phase 1.8 - 23.9 Ovulation phase 0.1 - 12.0 First trimester 11.0 - 44.3 Second trimester 25.4 - 83.3 Third trimester 58.7 - 214.0 Postmenopausal 0.0 - 0.1Performed at: [place], [place] [id number] Director: Ino Dougherty PhD, Phone: [phone] BETA HCG, URINE (POC DEVICE) on 01-15-2023 Beta HCG ( test) Ql (U) Negative Negative [facility] Interpretation and review of laboratory results Normal [facility] Test performed at address of the patient encounter. [facility] CARDIAC RHYTHM (SCANNED)on 03-17-2022 [facility] CBC AND ELECTRONIC DIFFon Basophils (Bld) [#/Vol] 0.05 10*3/uL 0.00 - 0.15 K/uL [facility] Basophils/100 WBC (Bld) 0.5 % [facility] Differential cell count method Nom (Bld) Electronic Differential [facility] Eosinophils (Bld) [#/Vol] 0.12 10*3/uL 0. 00 - 0.42 K/uL [facility] Eosinophils/100 WBC (Bld) 1.2 % [facility] Erythrocyte distribution width (RBC) [Ratio] 13.1 % 10.8 - 14.9 % [facility] Hematocrit (Bld) [Volume fraction] 42.5 % 34.9 - 44.3 % [facility] Hemoglobin (Bld) [Mass/Vol] 14.3 g/dL 11.4 - 15.2 g/dL [facility] Immature granulocytes (Bld) [#/Vol] K/uL NINF - 0.08 K/uL [facility] Immature granulocytes/100 WBC (Bld) 0.3 % [facility] Lymphocytes (Bld) [#/Vol] 3.42 10*3/uL 1. 16 - 3.51 K/uL [facility] Lymphocytes/100 WBC (Bld) 32.9 % [facility] MCH (RBC) [Entitic mass] 31.1 pg 25. 9 - 33.9 pg [facility] MCHC (RBC) [Mass/Vol] 33.6 g/dL 31.4 - 35.9 g/dL [facility] MCV (RBC) [Entitic vol] 92.4 fL 79.6 - 97.7 fL [facility] Monocytes (Bld) [#/Vol] 0.62 10*3/uL 0.22 - 0.87 K/uL [facility] Monocytes/100 WBC (Bld) 6.0 % [facility] Neutrophils (Bld) [#/Vol] 6.14 10*3/uL 1. 64 - 7.28 K/uL [facility] Nucleated RBC/100 WBC (Bld) [Ratio] 0.0 % [facility] Platelet mean volume (Bld) [Entitic vol] 10.8 fL 8.5 - 12.2 fL [facility] Platelets (Bld) [#/Vol] 326 10*3/uL 150 - 393 K/uL [facility] RBC (Bld) [#/Vol] 4.60 10*6/uL [facility] Segmented neutrophils/100 WBC (Bld) 59.1 % [facility] WBC (Bld) [#/Vol] 10.38 10*3/uL 3.99 - 11 .19 K/uL [facility] HCG ( test) Ql (U)O rdered By: Jamil Santos on 01-09-2023 Beta HCG ( test) Ql Negative Negative [facility] Interpretation and review of laboratory results Normal [facility] PT,INR,PTTon 01-09-2023 aPTT Coag (PPP) [Time] 31.1 s [facility] INR Coag (Bld) [Relative time] 1.0 {INR} 0.9 - 1.1 [facility] Interpretation and review of laboratory results Normal [facility] PT Coag (PPP) [Time] 13.0 s [facility] SCREEN: MRSA/MSSAOrdered By: Alexandra Slater on 01-09-2023 Interpretation and review of laboratory results Abnormal [facility] Methicillin Resistant S. Aureus By Pcr Negative Negative [facility] Staphylococcus Aureus By Pcr Positive Abnormal Negative [facility] This test was performed using a real [...] by the Clinical Microbiology Laboratory at [facility]. It has not been cleared or approved by the FDA.The laboratory is regulated under CLIA as qualified to perform high-complexity testing. This test is used for clinical purposes. It should not be regarded as investigational or for research. [facility] XR Cervical and thoracic and lumbar spine [...] IMPRESSION: Intact vagus nerve stimulator as described. [facility] Radiology Study observation (narrative) [facility] XR Cervical and thoracic and lumbar spine ViewsOrdered By: Alice Crespo on 01-09-2023 [facility] Work Phone: PROGESTERONEon 05-24-2022 Progesterone 5.5 ng/mL Normal [facility] Comment on above: Result Comment: Foll icular phase 0.1 - 0.9 Luteal phase 1.8 - 23.9 Ovulation phase 0.1 - 12.0 First trimester 11.0 - 44.3 Second trimester 25.4 - 83.3 Third trimester 58.7 - 214.0 Postmenopausal 0.0 - 0.1 Performed By: #### P DANIEL #### [facility] [address] [place] [address] Dr. Nicol Oswald LAMOTRIGINEon 05-02-2022 Lamotrigine, Serum 4.7 ug/mL Normal 2.0-20.0 [facility] Comment on above: Result Comment: Dete ction Limit = 1.0 Performed By: #### P DANIEL #### [facility] [address] [place] [address] Dr. Nicol Oswald CBC AUTO DIFFon 04-30-2022 BASO # 0.0 103/ul Normal 0.0-0.1 [facility] Comment on above: Performed By: #### C BC #### [facility] [address] [place] [address] Dr. Nicol Oswald Basophils/100 WBC (Bld) 0.4 % Normal 0.2-2.0 [facility] Comment on above: Performed By: #### C BC #### [facility] [address] [place] [address] Dr. Nicol Oswald EO # 0.2 103/ul Normal 0.0-0.7 [facility] Comment on above: Performed By: #### C BC #### [facility] [address] [place] [address] Dr. Nicol Oswald Eosinophils/100 WBC (Bld) 1.9 % Normal 0.9-7.0 [facility] Comment on above: Performed By: #### C BC #### [facility] [address] [place] [address] Dr. Nicol Oswald Erythrocyte distribution width (RBC) [Ratio] 12.8 % Normal 11.0-15.0 [facility] Comment on above: Performed By: #### C BC #### [facility] [address] [place] [address] Dr. Nicol Oswald Hematocrit (Bld) [Volume fraction] 40.4 % Normal 36.0-48.0 [facility] Comment on above: Performed By: #### C BC #### [facility] [address] [place] [address] Dr. Nicol Oswald Hemoglobin (Bld) [Mass/Vol] 13.6 g/dL Normal 12.0-16.0 [facility] Comment on above: Performed By: #### C BC #### [facility] [address] [place] [address] Dr. Nicol Oswald IG # 0.03 10e3/ul Normal 0.00-0.03 [facility] Comment on above: Performed By: #### C BC #### [facility] [address] [place] [address] Dr. Nicol Oswald IG % 0.4 % Normal 0.0-0.5 [facility] Comment on above: Performed By: #### C BC #### [facility] [address] [place] [address] Dr. Nicol Oswald LYMPH # 3.1 103/ul Normal 1.2-3.8 [facility] Comment on above: Performed By: #### C BC #### [facility] [address] [place] [address] Dr. Nicol Oswald Lymphocytes/100 WBC (Bld) 36.4 % Normal 20.5-60.0 [facility] Comment on above: Performed By: #### C BC #### [facility] [address] [place] [address] Dr. Nicol Oswald MANUAL DIFF REQ NO Normal [facility] Comment on above: Performed By: #### C BC #### [facility] [address] [place] [address] Dr. Nicol Oswald MCH (RBC) [Entitic mass] 31.0 pg Normal 26.7-34.0 [facility] Comment on above: Performed By: #### C BC #### [facility] [address] [place] [address] Dr. Nicol Oswald MCHC (RBC) [Mass/Vol] 33.7 g/dL Normal 29.9-35.2 [facility] Comment on above: Performed By: #### C BC #### [facility] [address] [address] [address] Nicol Oswald MCV (RBC) [Entitic vol] 92.0 fL Normal 81.0-99.0 [facility] Comment on above: Performed By: #### C BC #### [facility] [address] [address] [address] Nicol Oswald MONO # 0.7 103/ul Normal 0.3-0.8 [facility] Comment on above: Performed By: #### C BC #### [facility] [address] [place] [address] Dr. Nicol Oswald Monocytes/100 WBC (Bld) 7.7 % Normal 1.7-12.0 [facility] Comment on above: Performed By: #### C BC #### [facility] [address] [place] [address] Dr. Nicol Oswald NEUT # 4.5 103/ul Normal 1.4-6.5 [facility] Comment on above: Performed By: #### C BC #### [facility] [address] [place] [address] Dr. Nicol Oswald Neutrophils/100 WBC (Bld) 53.2 % Normal 43.0-75.0 [facility] Comment on above: Performed By: #### C BC #### [facility] [address] [place] [address] Dr. Nicol Oswald Platelet mean volume (Bld) [Entitic vol] 11.0 fL Normal 9.5-13.5 [facility] Comment on above: Performed By: #### C BC #### [facility] [address] [place] [address] Dr. Nicol Oswald PLT 282 103/ul Normal 150-450 [facility] Comment on above: Performed By: #### C BC #### [facility] [address] [place] [address] Dr. Nicol Oswald RBC 4.39 106/ul Normal 4.20-5.40 [facility] Comment on above: Performed By: #### C BC #### [facility] [address] [place] [address] Dr. Nicol Oswald WBC 8.4 103/ul Normal 4.0-11.0 [facility] Comment on above: Performed By: #### C BC #### [facility] [address] [address] [address] Nicol Oswald LIVER PROFILEon 04-30-2022 Albumin [Mass/Vol] 4.1 g/dL Normal 3.4-5.0 [facility] Comment on above: Performed By: #### P DANIEL #### [facility] [address] [place] [address] Dr. Nicol Oswald Albumin/Globulin [Mass ratio] 1.2 {ratio} Normal [facility] Comment on above: Performed By: #### P DANIEL #### [facility] [address] [place] [address] Dr. Nicol Oswald ALP [Catalytic activity/Vol] 52 U/L Normal 46-116 [facility] Comment on above: Performed By: #### P DANIEL #### [facility] [address] [place] [address] Dr. Nicol Oswald ALT [Catalytic activity/Vol] 23 U/L Normal 14-59 [facility] Comment on above: Performed By: #### P DANIEL #### [facility] [address] [place] [address] Dr. Nicol Oswald AST [Catalytic activity/Vol] 17 U/L Normal 15-37 [facility] Comment on above: Performed By: #### P DANIEL #### [facility] [address] [place] [address] Dr. Nicol Oswald BILI, CONJUGATED 0.1 mg/dL Normal 0.0-0.2 [facility] Comment on above: Performed By: #### P DANIEL #### [facility] [address] [place] [address] Dr. Nicol Oswald Bilirubin [Mass/Vol] 0.2 mg/dL Normal 0.2-1.0 [facility] Comment on above: Performed By: #### P DANIEL #### [facility] [address] [address] [address] Nicol Oswald Globulin (S) [Mass/Vol] 3.4 g/dL Normal T [facility] Comment on above: Performed By: #### P ROGES #### [facility] [address] [address] [address] Nicol Oswald Protein [Mass/Vol] 7.5 g/dL Normal 6.4-8.2 [facility] Comment on above: Performed By: #### P ROGES #### [facility] [address] [address] [address] Nicol Oswald PROF CHEM 8 (BAS METB)on Anion gap [Moles/Vol] 8.5 mmol/L Normal [facility] Comment on above: Performed By: #### P ROGES #### [facility] [address] [place] [address] Dr. Nicol Oswald Calcium [Mass/Vol] 9.4 mg/dL Normal 8.5-10.1 [facility] Comment on above: Performed By: #### P ROGES #### [facility] [address] [place] [address] Dr. Nicol Oswald Chloride [Moles/Vol] 102 mmol/L Normal 98-107 [facility] Comment on above: Performed By: #### P ROGES #### [facility] [address] [place] [address] Dr. Nicol Oswald CO2 [Moles/Vol] 30.4 mmol/L Normal 21.0-32.0 [facility] Comment on above: Performed By: #### P ROGES #### [facility] [address] [address] [address] Nicol Oswald Creatinine [Mass/Vol] 0.57 mg/dL Normal 0.55-1.02 [facility] Comment on above: Performed By: #### P ROGES #### [facility] [address] [place] [address] Dr. Nicol Oswald EGFR-AF UGANDAN >60 Normal >=60 [facility] Comment on above: Performed By: #### P DANIEL #### [facility] [address] [address] [address] Nicol Oswald EGFR-NON AF UGANDAN >60 Normal >=60 [facility] Comment on above: Performed By: #### P DANIEL #### [facility] [address] [address] [address] Nicol Oswald Glucose [Mass/Vol] 89 mg/dL Normal 74-106 [facility] Comment on above: Performed By: #### P DANIEL #### [facility] [address] [address] [address] Nicol Oswald Potassium [Moles/Vol] 3.9 mmol/L Normal 3.5-5.1 [facility] Comment on above: Performed By: #### P DANIEL #### [facility] [address] [address] [address] Nicol Oswald Sodium [Moles/Vol] 137 mmol/L Normal 136-145 [facility] Comment on above: Performed By: #### P DANIEL #### [facility] [address] [address] [address] Nicol Oswald Urea nitrogen [Mass/Vol] 10.0 mg/dL Normal 7.0-18.0 [facility] Comment on above: Performed By: #### P DANIEL #### [facility] [address] [address] [address] Nicol Oswald Urea nitrogen/Creatinine [Mass ratio] 17.5 mg/mg Normal [facility] Comment on above: Performed By: #### P DANIEL #### [facility] [address] [address] [address] Nicol Oswald ESTROGENon 04-19-2022 Estrogens, Total 124 pg/mL Normal [facility] Comment on above: Result Comment: Prep ubertal < 40 Female Cycle: 1-10 Days 16 - 328 11-20 Days 34 - 501 21-30 Days 48 - 350 Post-Menopausal 40 - 244 Performed By: #### E KYLIE #### [facility] [facility] [address] [address] [address] Nicol Oswald DHEA SERUMon 04-18-2022 Dehydroepiandrosterone (DHEA) 371 ng/dL Normal 31-701 [facility] Comment on above: Result Comment: Age 3 [...] 701 Performed By: #### P DANIEL #### [facility] [address], [place] [address] Dr. Nicol Oswald DHEA-SULFATEon 04-16-2022 DHEA-Sulfate 371.0 ug/dL Normal 84.8-378.0 [facility] Comment on above: Performed By: #### Tenzin SANCHEZ #### [facility] [address] [address] [address] Nicol Oswald FSHon 04-16-2022 FSH 5.6 mIU/mL Normal [facility] Comment on above: Result Comment: Adul t Female: Follicular phase 3.5 - 12.5 Ovulation phase 4.7 - 21.5 Luteal phase 1.7 - 7.7 Postmenopausal 25.8 - 134.8 Performed By: #### P DANIEL #### [facility] [address] [address] [address] Nicol Oswald LUTEINIZING HORMONE (LH)on 0 04-16-2022 LH 12.9 mIU/mL Normal [facility] Comment on above: Result Comment: Adul t Female: Follicular phase 2.4 - 12.6 Ovulation phase 14.0 - 95.6 Luteal phase 1.0 - 11.4 Postmenopausal 7.7 - 58.5 Performed By: #### P DANIEL #### [facility] [address] [place] [address] Dr. Nicol Oswald PROGESTERONEon 04-16-2022 Progesterone 0.2 ng/mL Normal [facility] Comment on above: Result Comment: Foll icular phase 0.1 - 0.9 Luteal phase 1.8 - 23.9 Ovulation phase 0.1 - 12.0 First trimester 11.0 - 44.3 Second trimester 25.4 - 83.3 Third trimester 58.7 - 214.0 Postmenopausal 0.0 - 0.1 Performed By: #### P ROGES #### [facility] [address] [address] [address] Nicol Oswald PROLACTINon 04-16-2022 Prolactin 7.1 ng/mL Normal 4.8-23.3 [facility] Comment on above: Performed By: #### P ROLAC #### [facility] [address] [address] [address] Nicol Oswald US PELVIS AND TRANSVAGon [...] CYDNEY VALDEZ Date: 2022-04-16 08:48 Normal [facility] CBC AUTO DIFFon 04-15-2022 BASO # 0.0 103/ul Normal 0.0-0.1 [facility] Comment on above: Performed By: #### C BC #### [facility] [address] [place] [address] Dr. Nicol Oswald Basophils/100 WBC (Bld) 0.5 % Normal 0.2-2.0 [facility] Comment on above: Performed By: #### C BC #### [facility] [address] [address] [address] Nicol Oswald EO # 0.2 103/ul Normal 0.0-0.7 [facility] Comment on above: Performed By: #### C BC #### [facility] [address] [place] [address] Dr. Nicol Oswald Eosinophils/100 WBC (Bld) 2.1 % Normal 0.9-7.0 [facility] Comment on above: Performed By: #### C BC #### [facility] [address] [place] [address] Dr. Nicol Oswald Erythrocyte distribution width (RBC) [Ratio] 12.5 % Normal 11.0-15.0 [facility] Comment on above: Performed By: #### C BC #### [facility] [address] [place] [address] Dr. Nicol Oswald Hematocrit (Bld) [Volume fraction] 44.7 % Normal 36.0-48.0 [facility] Comment on above: Performed By: #### C BC #### [facility] [address] [place] [address] Dr. Nicol Oswald Hemoglobin (Bld) [Mass/Vol] 14.3 g/dL Normal 12.0-16.0 [facility] Comment on above: Performed By: #### C BC #### [facility] [address] [place] [address] Dr. Nicol Oswald IG # 0.01 10e3/ul Normal 0.00-0.03 [facility] Comment on above: Performed By: #### C BC #### [facility] [address] [place] [address] Dr. Nicol Oswald IG % 0.1 % Normal 0.0-0.5 [facility] Comment on above: Performed By: #### C BC #### [facility] [address] [place] [address] Dr. Nicol Oswald LYMPH # 2.0 103/ul Normal 1.2-3.8 [facility] Comment on above: Performed By: #### C BC #### [facility] [address] [place] [address] Dr. Nicol Oswald Lymphocytes/100 WBC (Bld) 26.0 % Normal 20.5-60.0 [facility] Comment on above: Performed By: #### C BC #### [facility] [address] [place] [address] Dr. Nicol Oswald MANUAL DIFF REQ NO Normal [facility] Comment on above: Performed By: #### C BC #### [facility] [address] [place] [address] Dr. Nicol Oswald MCH (RBC) [Entitic mass] 30.8 pg Normal 26.7-34.0 [facility] Comment on above: Performed By: #### C BC #### [facility] [address] [place] [address] Dr. Nicol Oswald MCHC (RBC) [Mass/Vol] 32.0 g/dL Normal 29.9-35.2 [facility] Comment on above: Performed By: #### C BC #### [facility] [address] [place] [address] Dr. Nicol Oswald MCV (RBC) [Entitic vol] 96.3 fL Normal 81.0-99.0 [facility] Comment on above: Performed By: #### C BC #### [facility] [address] [place] [address] Dr. Nicol Oswald MONO # 0.6 103/ul Normal 0.3-0.8 [facility] Comment on above: Performed By: #### C BC #### [facility] [address] [place] [address] Dr. Nicol Oswald Monocytes/100 WBC (Bld) 7.3 % Normal 1.7-12.0 [facility] Comment on above: Performed By: #### C BC #### [facility] [address] [place] [address] Dr. Nicol Oswald NEUT # 4.9 103/ul Normal 1.4-6.5 [facility] Comment on above: Performed By: #### C BC #### [facility] [address] [place] [address] Dr. Nicol Oswald Neutrophils/100 WBC (Bld) 64.0 % Normal 43.0-75.0 [facility] Comment on above: Performed By: #### C BC #### [facility] [address] [place] [address] Dr. Nicol Oswald Platelet mean volume (Bld) [Entitic vol] 11.3 fL Normal 9.5-13.5 [facility] Comment on above: Performed By: #### C BC #### [facility] [address] [place] [address] Dr. Nicol Oswald PLT 302 103/ul Normal 150-450 [facility] Comment on above: Performed By: #### C BC #### [facility] [address] [place] [address] Dr. Nicol Oswald RBC 4.64 106/ul Normal 4.20-5.40 [facility] Comment on above: Performed By: #### C BC #### [facility] [address] [place] [address] Dr. Nicol Oswald WBC 7.7 103/ul Normal 4.0-11.0 [facility] Comment on above: Performed By: #### C BC #### [facility] [address] [place] [address] Dr. Nicol Oswald FREE T4on 04-15-2022 Free T4 [Mass/Vol] 0.80 ng/dL Normal 0.76-1.46 [facility] Comment on above: Performed By: #### F T4 #### [facility] [address] [place] [address] Dr. Nicol Oswald GLYCOHEMOGLOBIN A1Con 2022 ADA RECOMMENDATION SEE BELOW Normal [facility] Comment on above: Result Comment: ADA RECOMMENDED LIMIT 4.0 - 6.0 ADA THERAPEUTIC TARGET < 7.0 ACTION SUGGESTED > 7.0 Performed By: #### A 1C #### [facility] [address] [place] [address] Dr. Nicol Oswald Glucose [Mass/Vol] 114 mg/dL Normal [facility] Comment on above: Performed By: #### A 1C #### [facility] [address] [place] [address] Dr. Nicol Oswald HbA1c (Bld) [Mass fraction] 5.6 % Normal 4.5-6.2 [facility] Comment on above: Performed By: #### A 1C #### [facility] [address] [place] [address] Dr. Nicol Oswald PREG QUANT HCGon 04-15-2022 HCG QUANT <1 Normal [facility] Comment on above: Performed By: #### P REGQNT, TSH #### [facility] [address] [place] [address] Dr. Nicol Oswald HCG RANGE SEE BELOW Normal [facility] Comment on above: Result Comment: 5-50 0.2-1 WEEK 50-500 1-2 WEEKS 100-5,000 2-3 WEEKS 500-10,000 3-4 WEEKS 1,000-50,000 4-5 WEEKS 10,000-100,000 5-6 WEEKS 15,000-200,000 6-8 WEEKS 10,000-100,000 2-3 MONTHS Performed By: #### P PAUL, TSH #### [facility] [address] [place] [address] Dr. Nicol Oswald TSHon 04-15-2022 TSH 1.312 uIU/mL Normal 0.358-3.740 [facility] Comment on above: Performed By: #### P PAUL, TSH #### [facility] [address] [place] [address] Dr. Nicol Oswald PAP ACOG PANEL 2: 23 to 31on 08-31-2021 . . Normal [facility] Comment on above: Performed By: #### P DANIEL #### [facility] [address] [place] [address] Dr. Nicol Oswald Age Gdln ACOG Testing 23- Normal [facility] Comment on above: Performed By: #### P DANIEL #### [facility] [address] [place] [address] Dr. Nicol Oswald DIAGNOSIS: Comment Normal [facility] Comment on above: Result Comment: NEGA TIVE FOR INTRAEPITHELIAL LESION OR MALIGNANCY. THIS SPECIMEN WAS RESCREENED PART OF OUR DATA LIBRARIAN PROGRAM. Performed By: #### P DANIEL #### [facility] [address] [address] [address] Nicol Oswald Methodology: Comment Normal [facility] Comment on above: Result Comment: This liquid based ThinPrep(R) pap test was screened with the use of an image guided system. Performed By: #### P ROGES #### [facility] [address] [place] [address] Dr. Nicol Oswald Note: Comment Normal [facility] Comment on above: Result Comment: The Pap smear is a screening test designed to aid in the detection of premalignant and malignant conditions of the uterine cervix. It is not a diagnostic procedure and should not be used as the sole means of detecting cervical cancer. Both false-positive and false-negative reports do occur. . Performed By: #### P ROGES #### [facility] [address] [place] [address] Dr. Nicol Oswald Performed by: Comment Normal [facility] Comment on above: Result Comment: Mireille Blanco, Scheme Technician (ASCP) Performed By: #### P ROGES #### [facility] [address] [place] [address] Dr. Nicol Oswald QC reviewed by: Comment Normal [facility] Comment on above: Result Comment: Tahira Roque, Scheme Technician (ASCP) Performed By: #### P ROGES #### [facility] [address] [place] [address] Dr. Nicol Oswald Reflex Criteria: Comment Normal [facility] Comment on above: Result Comment: The HPV DNA reflex criteria were not met with this specimen result therefore, no HPV testing was performed. . Performed By: #### P ROGES #### [facility] [address] [address] [address] Nicol Oswald Specimen adequacy: Comment Normal [facility] Comment on above: Result Comment: Sati sfactory for evaluation. Endocervical and/or squamous metaplastic cells (endocervical component) are present. Performed By: #### P ROGES #### [facility] [address] [place] [address] Dr. Nicol Oswald CBC Auto Diff Reflex Manualo n 12-12-2019 Automated Absolute Neutrophil 5.73 10*3/mm3 Normal [facility] Comment on above: Result Comment: Auto mated Absolute Neutrophil Count (ANC) is directly measured using a hematology instrument. ANC determined from manual differential cell count may differ. No [facility] reference range has been validated for this assay. Performed By: #### C D #### [place] [address] Basophil 0.5 % Normal 0.0-1.0 [facility] Comment on above: Performed By: #### C D #### [place] [address] Differential Type Automated Normal [facility] Comment on above: Performed By: #### C D #### [place] [address] Eosinophil 1.6 % Normal 1.0-4.0 [facility] Comment on above: Performed By: #### C D #### [place] [address] Erythrocyte distribution width (RBC) [Ratio] 13.4 % Normal 10-14.1 [facility] Comment on above: Performed By: #### C D #### [place] [address] Lymphocyte 22.6 % Low 24.0-44.0 [facility] Comment on above: Performed By: #### C D #### [place] [address] MCH (RBC) [Entitic mass] 30.7 pg Normal 26-34 [facility] Comment on above: Performed By: #### C D #### [place] [address] MCHC (RBC) [Mass/Vol] 33.2 % Normal 31.0-37.0 [facility] Comment on above: Performed By: #### C D #### [place] [address] MCV (RBC) [Entitic vol] 92.4 fL Normal 80-100 [facility] Comment on above: Performed By: #### C D #### Performed at [address] [address] Monocyte 8.2 % High 1.0-7.0 [facility] Comment on above: Performed By: #### C D #### Performed at [address] [address] Neutrophil 67.1 % Normal 41.0-77.0 [facility] Comment on above: Performed By: #### C D #### Performed at [address] [address] Platelet mean volume (Bld) [Entitic vol] 11.5 fL Normal 9.3-13.0 [facility] Comment on above: Performed By: #### C D #### Performed at [address] [address] Platelets (Bld) [#/Vol] 268 10*3/uL Normal 140-440 [facility] Comment on above: Performed By: #### C D #### Performed at [address] [address] RBC (Bld) [#/Vol] 4.60 10*6/uL Normal 4.0-5.2 [facility] Comment on above: Performed By: #### C D #### Performed at [address] [address] WBC (Bld) [#/Vol] 8.6 10*3/uL Normal 4.5-11 [facility] Comment on above: Performed By: #### C D #### Performed at [address] [address] Comprehensive Metabolic Pane mehran 02-18-2019 Albumin [Mass/Vol] 4.7 g/dL Normal 3.4-5.2 [facility] ALP [Catalytic activity/Vol] 47 U/L Low 50-136 [facility] ALT [Catalytic activity/Vol] 32 U/L Normal <40 [facility] AST [Catalytic activity/Vol] 29 U/L Normal 15-50 [facility] Bilirubin Ql (U) 0.2 mg/dL Normal 0.1-1.0 [facility] Calcium [Mass/Vol] 9.8 mg/dL Normal 8-10.5 [facility] Chloride [Moles/Vol] 104 mmol/L Normal 95-106 [facility] CO2 [Moles/Vol] 25 mmol/L Normal 24-35 [facility] Creatinine [Mass/Vol] 0.52 mg/dL Normal 0.5-1 [facility] Glucose [Mass/Vol] 135 mg/dL High 60-115 [facility] Potassium [Moles/Vol] 4.5 mmol/L Normal 3.7-5.3 [facility] Protein [Mass/Vol] 8.0 g/dL Normal 6.4-8.4 [facility] Sodium [Moles/Vol] 140 mmol/L Normal 135-145 [facility] Urea nitrogen [Mass/Vol] 15 mg/dL Normal 5-18 [facility] Valproic Acidon 02-18-2019 Valproic Acid 47.1 ug/mL Low 50.0-100.0 [facility] PAP, THIN PREP WITH IMAGINGo n 06-29-2018 PAP, THIN PREP WITH IMAGING Normal [facility] Comment on above: Result Comment: INTE RPRETATION Thin Prep Image-Guided Pap Test (Cervical/Endocervical) NEGATIVE FOR INTRAEPITHELIAL LESION /MALIGNANCY Satisfactory for evaluation (Endocervical/transformation zone component present) [facility] [place]/06/27/2018 The Pap test is a screening test, [...] 05/18/18 ICD-CM DIAGNOSIS CODE(S) Z01.419 [facility] [employer] Exam (general) (routine) W/o Abn Findings * EFFECTIVE 06/08/2018 * * CLINICAL CHEMISTRY PLATFORM CHANGES ARE ASSOCIATED WITH * * REFERENCE RANGE CHANGES FOR A NUMBER OF ANALYTES. PLEASE * * REVIEW REFERENCE INTERVALS CAREFULLY * Pathology [facility] [address] [place] [address] CLIA No. [id number] CAP Accreditation No. [id number] Corporate Paralegal: Johnson Garland M.D. [facility] Accession Number: [id number] Performed By: #### P L PAP W/IMAGE #### [address] [address] [address] Nucleic-Acid Probe-Endoce rvical Swabon 06-24-2018 CT Nucleic-Acid Probe-Endocervical Swab Negative Normal NEGATIVE [facility] Comment on above: Performed By: #### G C Amp Endocerv, CT Amp Endocerv #### [address] [address] Age at specimen collection = Normal [facility] Comment on above: Performed By: #### G C Amp Endocerv, CT Amp Endocerv #### [address] [address] Performed By: #### P L PAP W/IMAGE #### [address] [address] GC Nucleic-Acid Probe-Endoce rvical Swabon 06-24-2018 GC Nucleic-Acid Probe-Endocervical Swab Negative Normal NEGATIVE [facility] Comment on above: Performed By: #### G C Amp Endocerv, CT Amp Endocerv #### [address] [place] [address] Platelet Functionon 03-24-19 19 Collagen/ADP 148 sec High 67-112 [facility] Comment on above: Performed By: #### P FA #### [facility] [address] [place], [place] [id number] Collagen/EPI 228 sec High 85-172 [facility] Comment on above: Performed By: #### P FA #### [facility] [address] [place] [address] Interpretation Abnormal platelet function. Normal [facility] [...] established. Performed By: #### P FA #### [address] [address] XR ANKLE RIGHT STANDARDon XR ANKLE RIGHT STANDARD Radiology exam i s complete. No Radiologist dictation. Please follow up with ordering provider. Final result Normal [facility] Vital Signs Date Time Vital Sign Value Performing Clinician Facility 09-24-2023 10: Body height 170.18 cm [facility] 09-24-2023 10: Body mass index (BMI) [Ratio] 30.2 kg/m2 [facility] 09-24-2023 10: Body weight 87.54 kg [facility] 09-24-2023 10:040 Diastolic blood pressure 78 mm[Hg] [facility] 09-24-2023 10:040 Heart rate 67 /min [facility] 09-24-2023 10:040 SaO2% (BldA) [Mass fraction] 98 % [facility] 09-24-2023 10:29-0400 Systolic blood pressure 112 mm[Hg] [facility] 08-21-2023 14:43-0400 Body height 161.3 cm Cori Maturu V, DO Work Phone: [facility] Comment on above: verbal 08-21-2023 14:43-0400 Body mass index (BMI) [Ratio] 34.59 kg/m2 Cori Maturu V, DO Work Phone: [facility] 08-21-2023 14:43-0400 Body temperature 98.29 [degF] Coir Maturu V, DO Work Phone: [facility] 08-21-2023 14:43-0400 Body weight 89.99 kg Cori Maturu V, DO Work Phone: [facility] 08-21-2023 14:43-0400 Diastolic blood pressure 76 mm[Hg] Cori Maturu V, DO Work Phone: [facility] 08-21-2023 14:43-0400 Heart rate 88 /min Cori Maturu V, DO Work Phone: [facility] 08-21-2023 14:43-0400 Systolic blood pressure 130 mm[Hg] Cori Maturu V, DO Work Phone: [facility] 07-07-2023 14:37-0400 Body height 170.18 cm [facility] 07-07-2023 14:37-0400 Body mass index (BMI) [Ratio] 30.8 kg/m2 [facility] 07-07-2023 14:37-0400 Body weight 89.35 kg [facility] 07-07-2023 14:37-0400 Diastolic blood pressure 78 mm[Hg] [facility] 07-07-2023 14:37-0400 Heart rate 81 /min [facility] 07-07-2023 14:37-0400 SaO2% (BldA) [Mass fraction] 98 % [facility] 07-07-2023 14:37-0400 Systolic blood pressure 112 mm[Hg] [facility] 05-28-2023 14:04-0400 Body height 161.3 cm Petra Silveira MACHINE SETTER AUTOMATIC[employer]FLOOR INSTALLER Work Phone: [facility] 05-28-2023 14:04-0400 Body mass index (BMI) [Ratio] 34.09 kg/m2 Petra Silveira MACHINE SETTER AUTOMATIC-FLOOR INSTALLER Work Phone: [facility] 05-28-2023 14:04-0400 Body temperature 98.01 [degF] Petra Silveira MACHINE SETTER AUTOMATIC[employer]FLOOR INSTALLER Work Phone: [facility] 05-28-2023 14:04-0400 Body weight 88.68 kg Petra Silveira MACHINE SETTER AUTOMATIC[employer]FLOOR INSTALLER Work Phone: [facility] 05-28-2023 14:04-0400 Diastolic blood pressure 74 mm[Hg] Petra Silveira MACHINE SETTER AUTOMATIC[employer]FLOOR INSTALLER Work Phone: [facility] 05-28-2023 14:04-0400 Heart rate 92 /min Petra Silveira MACHINE SETTER AUTOMATIC-FLOOR INSTALLER Work Phone: [facility] 05-28-2023 14:04-0400 Systolic blood pressure 122 mm[Hg] Petra Silveira MACHINE SETTER AUTOMATIC-FLOOR INSTALLER Work Phone: [facility] 04-22-2023 13:04-0500 Body mass index (BMI) [Ratio] 34 kg/m2 Donovan Kimmie DO Work Phone: [facility] 04-22-2023 13:04-0500 Body weight 88.45 kg Donovan Kimmie DO Work Phone: [facility] 04-22-2023 13:04-0500 Diastolic blood pressure 78 mm[Hg] Donovan Kimmie DO Work Phone: [facility] 04-22-2023 13:04-0500 Systolic blood pressure 120 mm[Hg] Donovan Burks DO Work Phone: [facility] 02-14-2023 15:48-0500 Body height 161.3 cm Petra Silveira MACHINE SETTER AUTOMATIC[employer]FLOOR INSTALLER Work Phone: [facility] Comment on above: verbal 02-14-2023 15:48-0500 Body mass index (BMI) [Ratio] 34.82 kg/m2 Petra Raoul MACHINE SETTER AUTOMATIC[employer]FLOOR INSTALLER Work Phone: [facility] 02-14-2023 15:48-0500 Body temperature 97.9 [degF] Crystal Raoul MACHINE SETTER AUTOMATIC[employer]FLOOR INSTALLER Work Phone: [facility] 02-14-2023 15:48-0500 Body weight 90.58 kg Petra Raoul MACHINE SETTER AUTOMATIC[employer]FLOOR INSTALLER Work Phone: [facility] 02-14-2023 15:48-0500 Diastolic blood pressure 79 mm[Hg] Crystal Raoul MACHINE SETTER AUTOMATIC[employer]FLOOR INSTALLER Work Phone: [facility] 02-14-2023 15:48-0500 Heart rate 107 /min Crystal Raoul MACHINE SETTER AUTOMATIC[employer]FLOOR INSTALLER Work Phone: [facility] 02-14-2023 15:48-0500 Systolic blood pressure 133 mm[Hg] Crystal Raoul MACHINE SETTER AUTOMATIC[employer]FLOOR INSTALLER Work Phone: [facility] 01-15-2023 13:50-0500 Body temperature 97.5 [degF] Andi Smith MD Work Phone: [facility] 01-15-2023 13:50-0500 Diastolic blood pressure 79 mm[Hg] Andi Smith MD Work Phone: [facility] 01-15-2023 13:50-0500 Heart rate 78 /min Andi Smith MD Work Phone: [facility] 01-15-2023 13:50-0500 Respiratory rate 16 /min Andi Smith MD Work Phone: [facility] 01-15-2023 13:50-0500 SaO2% (BldA) [Mass fraction] 98 % Andi Smith MD Work Phone: [facility] 01-15-2023 13:50-0500 Systolic blood pressure 117 mm[Hg] Andi Smith MD Work Phone: [facility] 01-15-2023 07:50-0500 Body height 161.3 cm Andi Smith MD Work Phone: [facility] 01-15-2023 07:50-0500 Body mass index (BMI) [Ratio] 34.37 kg/m2 Andi Smith MD Work Phone: [facility] 01-15-2023 07:50-0500 Body weight 89.4 kg Andi Smith MD Work Phone: [facility] 01-09-2023 08:39-0400 Body height 161.3 cm Esau Gage PAC Work Phone: [facility] 01-09-2023 08:39-0400 Body mass index (BMI) [Ratio] 33.65 kg/m2 Esau Gage PAC Work Phone: [facility] 01-09-2023 08:39-0400 Body temperature 98.49 [degF] Esau Gage PAC Work Phone: [facility] 01-09-2023 08:39-0400 Body weight 87.54 kg Esau Gage PAC Work Phone: [facility] 01-09-2023 08:39-0400 Diastolic blood pressure 80 mm[Hg] Esau Gage PAC Work Phone: [facility] 01-09-2023 08:39-0400 Heart rate 81 /min Esau Gage PAC Work Phone: [facility] 01-09-2023 08:39-0400 Respiratory rate 18 /min Esau Gage PAC Work Phone: [facility] 01-09-2023 08:39-0400 SaO2% (BldA) [Mass fraction] 98 % Esau Gage PAC Work Phone: [facility] 01-09-2023 08:39-0400 Systolic blood pressure 134 mm[Hg] Esau Gage PAC Work Phone: [facility] 12-10-2022 10:53-0400 Body height 160 cm Andi Smith MD Work Phone: [facility] 12-10-2022 10:53-0400 Body mass index (BMI) [Ratio] 34.19 kg/m2 Andi Smith MD Work Phone: [facility] 12-10-2022 10:53-0400 Body weight 87.54 kg Andi Smith MD Work Phone: [facility] 12-10-2022 10:53-0400 Diastolic blood pressure 63 mm[Hg] Andi Smith MD Work Phone: [facility] 12-10-2022 10:53-0400 Heart rate 65 /min Andi Smith MD Work Phone: [facility] 12-10-2022 10:53-0400 Systolic blood pressure 125 mm[Hg] Andi Smith MD Work Phone: [facility] 11-08-2022 16:21-0400 Body height 160 cm Petra Silveira APRN-FLOOR INSTALLER Work Phone: [facility] Comment on above: verbal 11-08-2022 16:21-0400 Body mass index (BMI) [Ratio] 34.26 kg/m2 Petra Silveira APRN-FLOOR INSTALLER Work Phone: [facility] 11-08-2022 16:21-0400 Body temperature 99.1 [degF] Petra Silveira MACHINE SETTER AUTOMATIC-FLOOR INSTALLER Work Phone: [facility] 11-08-2022 16:21-0400 Body weight 87.73 kg Petra Raoul MACHINE SETTER AUTOMATIC-FLOOR INSTALLER Work Phone: [facility] 11-08-2022 16:21-0400 Diastolic blood pressure 71 mm[Hg] Petra Raoul MACHINE SETTER AUTOMATIC-FLOOR INSTALLER Work Phone: [facility] 11-08-2022 16:21-0400 Heart rate 97 /min Petra Raoul MACHINE SETTER AUTOMATIC-FLOOR INSTALLER Work Phone: [facility] 11-08-2022 16:21-0400 Systolic blood pressure 116 mm[Hg] Petra Raoul MACHINE SETTER AUTOMATIC-FLOOR INSTALLER Work Phone: [facility] 07-04-2021 09:38-0400 Body height 161.3 cm Petra Silveira MACHINE SETTER AUTOMATIC-FLOOR INSTALLER Work Phone: [facility] Comment on above: verbal 07-04-2021 09:38-0400 Body mass index (BMI) [Ratio] 36.23 kg/m2 Petra Silveira MACHINE SETTER AUTOMATIC-FLOOR INSTALLER Work Phone: [facility] 07-04-2021 09:38-0400 Body temperature 98.71 [degF] Petra Silveira MACHINE SETTER AUTOMATIC-FLOOR INSTALLER Work Phone: [facility] 07-04-2021 09:38-0400 Body weight 94.26 kg Petra Raoul MACHINE SETTER AUTOMATIC-FLOOR INSTALLER Work Phone: [facility] 07-04-2021 09:38-0400 Diastolic blood pressure 70 mm[Hg] Petra Raoul MACHINE SETTER AUTOMATIC-FLOOR INSTALLER Work Phone: [facility] 07-04-2021 09:38-0400 Heart rate 73 /min Petra Silveira MACHINE SETTER AUTOMATIC-FLOOR INSTALLER Work Phone: [facility] 07-04-2021 09:38-0400 Systolic blood pressure 119 mm[Hg] Petra Silveira MACHINE SETTER AUTOMATIC-FLOOR INSTALLER Work Phone: [facility] Encounters Encounter Date Encounter Type Care Provider Facility Start: 06-07-2024 ambulatory [facility] Facility: [facility] Start: 05-26-2024 End: 05-28-2024 Clinisync Result Encounter Donovan Kimmie DO Work Phone: [facility] Unsolicited Start: 05-26-2024 End: 05-28-2024 Clinisync Result Encounter Donovan Kimmie DO Work [...] 11-12-2023 End: 11-13-2023 Clinisync Result Encounter Donovan Lombardoo DO Work Phone: [facility] Unsolicited Start: 11-12-2023 End: 11-13-2023 Clinisync Result Encounter Donovan Kimmie DO Work Phone: [facility] Unsolicited Start: 10-20-2023 End: 10-20-2023 ambulatory DONOVAN LOMBARDOO Not Available Start: 10-15-2023 End: 10-15-2023 ambulatory MADONNA PARSONS Not Available Start: 09-24-2023 End: 09-24-2023 ambulatory [facility] Work Phone: Start: 09-24-2023 End: 09-24-[address] [facility] Work Phone: Start: 09-11-2023 Non-patient / Non-visit [facility] Work Phone: Start: 08-21-2023 End: 08-21-2023 Office outpatient visit 25 minutes Cori Hernández DO Work Phone: Neurology [facility] 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); Anxiety disorder, unspecified type Start: 08-21-2023 ambulatory [facility] Facility: [facility] Start: 08-08-2023 Non-patient / Non-visit [facility] Physician [facility] Work Phone: Start: 07-09-2023 Non-patient / Non-visit [facility] Physician [facility] Work Phone: Start: 07-07-2023 End: 07-07-2023 ambulatory [facility] Work Phone: Start: 07-07-2023 End: 07-07-2023 Patient encounter procedure [facility] Physician [facility] Work Phone: Start: 06-27-2023 Non-patient / Non-visit [facility] Physician [facility] Work Phone: Start: 06-08-2023 Non-patient / Non-visit [facility] Physician [facility] Work Phone: Start: 05-28-2023 End: 05-28-2023 Office outpatient visit 25 minutes Petra Silveira MACHINE SETTER AUTOMATIC-FLOOR INSTALLER Work Phone: [facility] [place] 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); Anxiety disorder, unspecified type Start: 05-09-2023 Non-patient / Non-visit [facility] Physician [facility] Work Phone: Start: 04-22-2023 End: 04-22-2023 ambulatory DONOVAN KIMMIE Not Available Start: 04-22-2023 End: 04-22-2023 Office outpatient visit 15 minutes Donovan Kimmie DO Work Phone: [facility] Comment on above: Encounter for fertil ity planning Start: 04-22-2023 End: 04-22-2023 ambulatory DONOVAN KIMMIE Not Available Start: 02-14-2023 End: 02-14-2023 Office outpatient visit 25 minutes Petra Gordillo Raoul MACHINE SETTER AUTOMATIC-FLOOR INSTALLER Work Phone: [facility] [place] 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); 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 Start: 01-15-2023 End: 01-15-2023 Subsequent hospital visit by physician Andi Smith MD Work Phone: [facility] 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 Start: 01-09-2023 End: 01-09-2023 Office consultation new/estab patient 60 min Esau Gage PAC Work Phone: Pre-Procedure Evaluation and [facility] Comment on above: Preop exam for inter nal medicine (Primary Dx); Jeavons syndrome; 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 Start: 01-09-2023 End: 01-09-2023 Patient encounter status Esau Gage PAC Work Phone: [facility] Start: 01-09-2023 End: 01-09-2023 Subsequent hospital visit by physician Andi Smith MD Work Phone: Imaging [facility] Comment on above: Arrived Start: 12-10-2022 End: 12-10-2022 Office outpatient new 45 minutes Andi Smith MD Work Phone: [facility] 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) Start: 11-08-2022 End: 11-08-2022 Office outpatient visit 40 minutes Petra Silveira MACHINE SETTER AUTOMATIC-FLOOR INSTALLER Work Phone: Neurology [facility] 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) Start: 05-23-2022 End: 05-24-[address] DONOVAN BURKS . Facility: Start: 04-30-2022 End: 05-01-[address] DOCTOR ASHTON Facility:[facility] Start: 04-16-2022 End: 04-17-[address] DONOVAN BURKS . Facility:[facility] Start: 04-15-2022 End: 04-16-[address] DONOVAN BURKS . Facility:[facility] Start: 08-27-2021 End: 08-27-[address] DONOVAN BURKS . Facility: Start: 07-04-2021 End: 07-04-2021 Office outpatient visit 25 minutes Petra Silveira MACHINE SETTER AUTOMATIC-FLOOR INSTALLER Work Phone: Neurology [facility] Comment on above: Generalized nonconvu lsive epilepsy (Primary Dx) Start: 06-24-2018 Encounter for gynecological examination (general) (routine) without abnormal findings NA NONE PER PATIENT [facility] Start: 06-24-2018 End: 06-24-2018 Patient encounter procedure GERARDO WARD Facility:[facility] Start: 05-25-2018 End: 05-25-2018 Patient encounter procedure . NONE PER PATIENT Facility:[facility] Start: 05-13-2018 End: 05-13-2018 Patient encounter procedure . NONE PER PATIENT Facility:[facility] Start: 03-23-2018 End: 03-24-2018 Patient encounter procedure JAMIL Isbell [facility] Start: 03-20-2018 End: 03-21-2018 Patient encounter procedure [facility] Suk[facility] Procedures Date Procedure Procedure Detail Performing Clinician Start: 05-26-2024 ALL PROGESTERONE Donovan Kimmie DO Work Phone: Start: 02-18-2024 ALL PROGESTERONE Donovan Kimmie DO Work Phone: Start: 01-16-2024 ALL PROGESTERONE Donovan Kimmie DO Work Phone: Start: 12-15-2023 ALL PROGESTERONE Donovan Kimmie DO Work Phone: Start: 11-12-2023 ALL PROGESTERONE Donovan Kimmie DO Work Phone: Start: 01-15-2023 CARDIAC RHYTHM Other Ot her Start: 01-15-2023 Gonadotropin chorion ic qualitative Andi Smith MD Work Phone: Start: 01-09-2023 CBC AND ELECTRONIC DIFF Esau Lion Gage PAC Work Phone: Start: 01-09-2023 Complete blood count with white cell differential, automated Esau Lion Gage PAC Work Phone: Start: 01-09-2023 Prothrombin time Esau Lion Gage PAC Work Phone: Start: 01-09-2023 Radex spine cervical 2 or 3 views Andi Smith MD Work Phone: Start: 01-09-2023 Iadna s aureus ampli fied probe tq Esau Lion Gage PAC Work Phone: Start: 01-09-2023 Urine test visual color cmprsn meths Esau Lion Gage PAC Work Phone: Start: 02-18-2019 Blood count hematocrit Comment on above: Performed By: #### C D #### Performed at [facility], [address] [place] [id number] Start: 03-23-2018 PLATELET FUNCTION TEST JAMIL SMITH Plan of Treatment Date Care Activity Detail Author Start: 10-28-2024 End: 10-28-2024 Patient encounter procedure 10/28/2024 9:00 AM EDT Office Visit [facility] [address] [place] [phone] Donovan Burks DO [address] [place] [address] [facility] Start: 01-22-2024 End: 01-22-2024 Patient encounter procedure 01/22/2024 9:15 AM EST Office Visit Neurology [facility] [address] [facility] [address] [place] [phone] Jeannie Meek, Cori, DO [address] [place] [address] Neurology [facility] Start: 11-28-2023 End: 11-28-2023 Patient encounter procedure 11/28/2023 10:20 AM EDT Office Visit [facility] [address] [place], [place] [id number] Petra Silveira, MACHINE SETTER AUTOMATIC-FLOOR INSTALLER [address] [place] [phone] [facility] [place] Start: 11-09-2023 COVID-19 VACCINE ( season) COVID-19 VACCINE ( season) [facility] Start: 11-09-2023 Influenza vaccination [facility] Start: 08-21-2023 End: 08-21-2023 Patient encounter procedure 08/21/2023 2:45 PM EDT Office Visit Neurology [facility] [address] [facility] [address] [place] [phone] Cori Dia, DO [address] [place] [address] Neurology [facility] Start: 05-28-2023 End: 05-28-2023 Patient encounter procedure 05/28/2023 2:00 PM EDT Office Visit Neurology [facility] [address] [place] [address] [place] [phone] Petra Silveira, MACHINE SETTER AUTOMATIC-FLOOR INSTALLER [address] [place] [phone] Neurology [facility] Start: 02-14-2023 End: 02-14-2023 Patient encounter procedure Neurology [facility] Start: 01-15-2023 End: 01-15-2023 Admission to same day surgery center 01/15/2023 9:40 AM EST - 01/15/2023 11:50 AM EST Surgery [facility] [address] [place] [phone] Andi Smith MD [address] [place] [address] INSERTION REPLACEMENT NEUROSTIMULATOR GENERATOR CRANIAL/INTRACRANIAL [facility] Comment on above: INSERTION REPLACEMENT NEUROSTIMULATOR GE NERATOR CRANIAL/INTRACRANIAL Start: 01-15-2023 End: 01-15-2023 Insj/rplcmt cranial neurostim pulse generator INSERTION REPLACEMENT NEUROSTIMULATOR GENERATOR CRANIAL/INTRACRANIAL Jeavons syndrome 01/15/2023 9:40 AM EST [facility] Start: 01-15-2023 Subsequent hospital visit by physician 01/15/2023 9:40 AM EST Hospital Encounter [facility] [address] [place] [address] Andi Smith MD [address] [place] [address] Jeavons syndrome [facility] 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 Start: 12-10-2022 End: 12-11-2023 Radiographic imaging procedure XR STIMULATOR/INTRATHECAL PUMP Imaging Routine Jeavons syndrome Expected: 12/10/2022, Expires: 12/11/2023 [facility] Comment on above: Expected: 12/10/2022, Expires: Start: 12-10-2022 End: 12-10-2022 Patient encounter procedure 12/10/2022 11:30 AM EDT Office Visit [facility] [address] [place] [phone] Andi Smith MD [address] [place] [phone] [facility] Start: 11-08-2022 COVID-19 VACCINE ( season) COVID-19 VACCINE ( season) [facility] Start: 11-08-2022 Influenza vaccination INFLUENZA VACCINE (#1) [facility] Start: 01-04-2022 End: 01-04-2022 Patient encounter procedure 01/04/2022 Office Visit Neurology Cori Dia, DO [address] [place] [address] Neurology [facility] Start: 11-08-2021 Influenza vaccination INFLUENZA VACCINE (Season Ended) [facility] Start: 10-10-2021 End: 10-10-2021 Telemedicine consultation with patient 10/10/2021 Telemedicine Neurology Petra Silveira, MACHINE SETTER AUTOMATIC-FLOOR INSTALLER [address] [place] [address] Neurology [facility] Start: 08-15-2021 End: 08-15-2021 Telemedicine consultation with patient 08/15/2021 Telemedicine Neurology Petra Silveira, MACHINE SETTER AUTOMATIC-FLOOR INSTALLER [address] [place] [phone] Neurology [facility] Start: 2013 Screening for malignant neoplasm of cervix CERVICAL CANCER SCREENING DISCUSSION [facility] Start: 07-15-2011 Hepatitis B vaccination HEP B VACCINE (1 of 3 - 19+ 3-dose series) [facility] Start: 07-15-2011 Third diphtheria, tetanus and acellular pertussis (DTaP) vaccination TDAP (ADULT) [facility] Start: 2010 Tetanus vaccination TETANUS [facility] Start: 07-15-2007 HIV screening HIV SCREENING DISCUSSION [facility] Start: 1997 COVID-19 VACCINE (1) COVID-19 VACCINE (1) [facility] Start: 01-14-1993 COVID-19 VACCINE (#1) COVID-19 VACCINE (#1) [facility] Start: 1992 Hepatitis B vaccination HEP B VACCINE (1 of 3 - 3-dose series) [facility] Start: 1992 Hepatitis C antibody, confirmatory test HEPATITIS C VIRUS SCREENING [facility] Start: 1992 Hepatitis C screening HEPATITIS C VIRUS SCREENING [facility] Start: 1992 Tetanus vaccination TETANUS [facility] Ecg routine ecg w/le ast 12 lds w/i&r RI ELECTROCARDIOGRAM, COMPLETE RI - OFFICE PERFORMED Routine 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 Ordered: 01/09/2023 [facility] Comment on above: Ordered: 01/09/2023 Elec horace implt npgt phys/qhp w/o programming RI ELEC HORACE IMPLT NPGT PHYS/QHP W/O PROGRAMMING RI Charge Routine Jeavons syndrome Ordered: 09/09/2023 [facility] Comment on above: Ordered: 09/09/2023 Elec horace implt smpl cn npgt prgrmg RI ELEC HORACE IMPLT SMPL CN NPGT PRGRMG RI Charge Routine Jeavons syndrome Ordered: 11/14/2022 [facility] Comment on above: Ordered: 11/14/2022 Elec horace implt smpl cn npgt prgrmg RI ELEC HORACE IMPLT SMPL CN NPGT PRGRMG RI Charge Routine 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 Ordered: 03/12/2023 [facility] Comment on above: Ordered: 03/12/2023 Elec horace implt smpl cn npgt prgrmg RI ELEC HORACE IMPLT SMPL CN NPGT PRGRMG RI Charge Routine Jeavons syndrome Ordered: 06/21/2023 [facility] Comment on above: Ordered: 06/21/2023 Insj/rplcmt cranial neurostim pulse generator INSERTION REPLACEMENT NEUROSTIMULATOR GENERATOR CRANIAL/INTRACRANIAL Jeavons syndrome [facility] Noninvasive ear/puls e oximetry single deter RI NONINVASV OXYGEN SATUR; SINGLE RI - OFFICE PERFORMED Routine 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 Ordered: 01/09/2023 [facility] Comment on above: Ordered: 01/09/2023 Immunizations Immunization Date Immunization Notes Care Provider Lee shelton 01-04-2014 influenza, seasonal, injectable, preservative free Andi Smith MD Work Phone: [facility] 01-04-2014 influenza virus vaccine, unspecified formulation Petra Silveira APRN-FLOOR INSTALLER Work Phone: [facility] Payers Date Payer Category Payer Unknown [id number] 2021 Medicaid [employer] [place] [id number] 2021-Present [address] [place] [address] [id number] 2021 Private Health Insurance [facility] MEDICAID [id number] 2016 Unknown [id number] 2016 Self-pay 2014 Unknown [id number] 1992 Unknown [id number] [id number]. 173 1992 Unknown [id number] 2.16.840.1.196260.3.579.2. 173 1992 Unknown [id number] 2.16.840.1.359773.3.579.2. 754 1992 Unknown [id number] 2.16.840.1.835055.3.579.2. 754 1992 Unknown [id number] 2.16.840.1.467559.3.579.2. 754 1992 Unknown [id number] 2.16840.1.102752.3.579.2. 754 1992 Unknown [id number] 2.16.840.1.976663.3.579.2. 593 1992 Unknown [id number] 2.16.840.1.143559.3.579.2. 593 1992 Unknown [id number] 2.16.840.1.510950.3.579.2. 593 1992 Unknown [id number] 2.16840.1.714244.3.579.2. 593 1992 Unknown [id number] 2.16.840.1.939282.3.579.2. 593 1992 Unknown [id number] 2.16.840.1.034743.3.579.2. 1259 1992 Unknown [id number] 2.16.840.1.114376.3.579.2. 1259 1992 Unknown [id number] 2.16.840.1.966801.3.579.2. 1259 1992 Unknown [id number] 2.16.840.1.009364.3.579.2. 594 1992 Unknown [id number] [id number]. 594 1959 Unknown [id number] 1959 Unknown [id number] Social History Date Type Detail Facility Start: 10-28-2019 End: 09-11-2022 Tobacco smoking status NHIS Never smoked tobacco [facility] Start: 10-28-2019 End: 09-11-2022 Tobacco use and exposure Smokeless tobacco non-user [facility] Start: 10-28-2019 Alcohol intake Current drinker of alcohol (finding) [facility] Start: 10-28-2019 History SDOH Alcohol Frequency 2 [facility] Start: 10-28-2019 History SDOH Alcohol Comment rare wine [facility] Start: 10-28-2019 Education 17 [facility] Start: 1990 Sex Assigned At Not on file [facility] Start: 11-08-2022 End: 09-09-2023 Alcohol intake Ex-drinker (finding) [facility] Start: 10-28-2019 End: 10-20-2023 History of Social function [facility] Start: 10-28-2019 End: 10-20-2023 Alcohol Use Disorder Identification Test - Consumption [AUDIT-C] [facility] How often to you hav e a drink containing alcohol? Monthly or less [facility] Average Number of Drinks Not on file [facility] Start: 10-29-2019 Gender identity Identifies as female gender (finding) [facility] Start: 10-29-2019 Sexual orientation Heterosexual (finding) [facility] Start: 02-14-2023 Tobacco Comment Never [facility] Start: 02-14-2023 Alcohol Comment At most one or two drinks a month. [facility] Start: 04-22-2023 End: 10-20-2023 Alcohol intake Not Asked [facility] Start: 08-07-2022 Alcohol Comment Occasional alcohol use [facility] Start: 1990 Sex Assigned At Female [facility] Medical Equipment Procedure Code Equipment Code [...] included. Medication Access Team coordinated the following [facility]: MS/Neurology Prior Authorization Per the patient's insurance provider, [facility], the prior authorization for LAMOTRIGINE 300 (on-label) was approved. Authorization number: [id number] Authorization start date: 11/14/23 Authorization end date: 11/12/24 Non-Specialty Prescriptions: 1, 20-25 min Namrata Tony [facility] 11-19-2023 Miscellaneous Notes Images from the original note were not included. Medication Access Team coordinated the following [facility]: MS/Neurology Prior Authorization Per the patient's insurance provider, [facility], the prior authorization for LAMOTRIGINE 300 (on-label) was approved. Authorization number: [id number] Authorization start date: 11/14/23 Authorization end date: 11/12/24 Non-Specialty Prescriptions: 1, 20-25 min Namrata Tony documented in this encounter [facility] 11-14-2023 Telephone encounter Note Images from the original note were not included. *Documentation only- I did not speak with the patient. Received fax from [employer] stating PA is needed for Lamotrigine ER 300 mg tablets. Current auth expires 11/25/2023. [facility] 11-14-2023 Miscellaneous Notes Images from the original note were not included. *Documentation only- I did not speak with the patient. Received fax from [facility] stating PA is needed for Lamotrigine ER 300 mg tablets. Current auth expires 11/25/2023. documented in this encounter [facility] 08-21-2023 History of Present illness Narrative Reason [...] 24 hours. 2 Each 0 Prenat MV-Min w/Th-Hscuky-LXR ( COMPLETE PO) Take 1 tablet by [...] AW Model ID Sentiva [id number] Serial # [id number] Implanted 03/27/2018 Communication Output Current Status Current [...] of questions or concerns. Cori Hernández DO Heating Systems Installer Department of Neurology, Epilepsy Division [facility] documented in this encounter [facility] 08-21-2023 Instructions Cori Meek DO - 08/21/2023 [...] you can call the Neurology clinic at [phone]. If you have access through [facility], you can contact me through that system as well. documented in this encounter [facility] 05-28-2023 History of Present illness Narrative Images from the original note were not included. Rowena Drake was seen in the [facility] on 05/28/2023. She is here [...] 24 hours. 2 Each 0 Prenat MV-Min w/Bx-Cuvzqr-NKB ( COMPLETE PO) Take 1 tablet by [...] your epilepsy that we offer at the [facility]? Yes If you have tried 2 or 3 anti-seizure medications and your seizures are still not controlled, are you interested in learning about surgical options for your epilepsy that we can offer at the [facility] [facility]? No Neurological Disorders Depression Inventory for Epilepsy [...] 01/15/2023 Model Number 1000 1000 Serial Number [id number] Output Current (mA) 2.5 mA 2.25 mA [...] and continue maintenance dose of clobazam - RI ELEC HORACE IMPLT SMPL CN NPGT PRGRMG [...] 45 tablet; Refill: 2 Encouraged use of Magnitude Software to send messages to provider as needed for questions and concerns or can call our clinic @ [phone]. She will return in [address] Hernández or sooner if clinically indicated. Signed, Petra Silveira MSN, MACHINE SETTER AUTOMATIC-FLOOR INSTALLER [facility] Department of Neurology - Epilepsy Division [address] [place] [address] - [address] [place] [address] Pager: [phone] I spent a total of 35 minutes on the date of the service which included preparing to see the patient, tqlj-el-kout patient care, completing clinical documentation, performing a medically appropriate examination and counseling and educating the patient/family/caregiver. Note to patient: The Cures Act makes medical notes like these available to patients in the interest of transparency. However, be advised this is a medical document. It is intended as zjyj-vw-jmfa communication. It is written in medical language and may contain abbreviations or verbiage that are unfamiliar. It may appear blunt or direct. Medical documents are intended to carry relevant information, facts as evident, and the clinical opinion of the practitioner. documented in this encounter [facility] 04-22-2023 History of Present illness Narrative Reason [...] note reviewed. Exam conducted with a senior stock plan administrator present. Vitals: Estimated body mass index is [...] Donovan Burks DO documented in this encounter [facility] 02-14-2023 History of Present illness Narrative Images from the original note were not included. Rowena Byers was seen in the [facility] on 02/14/2023. She is here [...] 24 hours. 2 Each 0 Prenat MV-Min w/Xu-Esuozi-NSZ ( COMPLETE PO) Take 1 tablet by [...] ID ABW Model ID Santosva Serial # [id number] Implanted 01/15/2023 Communication OK Output Current Status [...] VNS Simple Reprogramming (1-3 changes) CPT code 33692 Assessment and Plan Assessment: Rowena is a [...] seizure rescue medications and when to call 9-1-1. We discussed seizure first aid: Generally speaking, emergency staff should be notified for seizure activity lasting longer than 5 minutes. Encouraged use of Magnitude Software to send messages to provider as needed for questions and concerns or can call our clinic @ [phone]. She will return in 3 months with me and [address] Hernández or sooner if clinically indicated. Signed, Petra ESCALANTE, MACHINE SETTER AUTOMATIC-FLOOR INSTALLER [facility] Department of Neurology - Epilepsy Division [address] [place] [address] - [address]th floor [place] [address] Pager: [phone] I spent a total of 34 minutes on the date of the service which included preparing to see the patient, door-qx-rtxf patient care, completing clinical documentation, performing a medically appropriate examination and counseling and educating the patient/family/caregiver. Note to patient: The 21st Century Cures Act makes medical notes like these available to patients in the interest of transparency. However, be advised this is a medical document. It is intended as cnnu-qj-rxnh communication. It is written in medical language and may contain abbreviations or verbiage that are unfamiliar. It may appear blunt or direct. Medical documents are intended to carry relevant information, facts as evident, and the clinical opinion of the practitioner. documented in this encounter [facility] 02-14-2023 Instructions JETHRO Juan - 02/14/2023 4:00 [...] after regular office hours, a neurologist is educational technology coordinator for urgent issues. Call the neurology office number ([phone]) to reach the neurologist educational technology coordinator if you are continuing to experience many more seizures than usual despite use of your rescue medications. Please try to remember that the neurologist educational technology coordinator may not have access to your complete medical record and may not be as familiar with your history. If you have access through [employer], you can contact us through that system as well. If you have documents that need completed or sent to our clinic, please have them faxed to [phone]. It is always best to call during [...] the refill is ready for you to cigar packer and picker. Seizure First Aid Training Can Be Found Here (it's free!): [email or web address] nd documented in this encounter [facility] 01-15-2023 Miscellaneous Notes [facility] OPERATIVE REPORT PATIENT NAME: Rowena Byers PROCEDURE DATE: 01/15/2023 PREOPERATIVE DIAGNOSIS: Drug-resistant epilepsy, Depleted pulse generator. POSTOPERATIVE DIAGNOSIS: Same. PROCEDURES: Replacement of left programmable pulse generator (Livanova Sentiva). SURGEON: Andi Smith MD. ASSISTANTS: Colt Meadows MD. ANESTHESIA: General. [...] The IPG had been interrogated by the billing representative from the vendor. The upper chest [...] the new IPG and secured with the small package and bundle sorter clerk's screwdriver. At this point, a computer programmer analyst was used to interrogate the [...] immediate. IMPLANTS: Livanova Sentiva IPG. ATTESTATION: Dr. Smith was scrubbed for the entire procedure and performed the critical portions. Pt and family were given AVS and verbalize understanding of instructions. Pt discharged via wheelchair. Report called to RN SPR, VSS, anesthesia sign out completed. 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 SURGEON Surgeon(s) and Role: * Andi Smith MD - Primary ANESTHESIOLOGIST Anesthesiologist: Cydney Zavala MD DEVULCANIZER CHARGER: Geraldo [place] APRN-DEVULCANIZER CHARGER Student Nurse Spanish Professor: Chiquita Polanco SURGICAL STAFF Production Operations Manager: Miki Gary RN; Linda Gilmore RN Relief Production Operations Manager: Janet Carreon RN Scrub Person: Marielle Ibrahim Resident Assisting: Colt Meadows MD COMPLICATIONS None ESTIMATED BLOOD LOSS Minimal SPECIMENS No specimen sent * No specimens in log * Colt Meadows MD January 15, 2023 11:03 AM documented in this encounter [facility] 01-15-2023 Nurse Note Pt and family were given AVS and verbalize understanding of instructions. Pt discharged via wheelchair. [facility] 01-15-2023 Surgery Postoperative evaluation and management note [facility] OPERATIVE REPORT PATIENT NAME: Rowena Byers PROCEDURE DATE: 01/15/2023 PREOPERATIVE DIAGNOSIS: Drug-resistant epilepsy, Depleted pulse generator. POSTOPERATIVE DIAGNOSIS: Same. PROCEDURES: Replacement of left programmable pulse generator (Livanova Sentiva). SURGEON: Andi Smith MD. ASSISTANTS: Colt Meadows MD. ANESTHESIA: General. [...] The IPG had been interrogated by the billing representative from the vendor. The upper chest [...] the new IPG and secured with the small package and bundle sorter clerk's screwdriver. At this point, a computer programmer analyst was used to interrogate the [...] immediate. IMPLANTS: Livanova Sentiva IPG. ATTESTATION: Dr. Smith was scrubbed for the entire procedure and performed the critical portions. [facility] 01-15-2023 Nurse Note Report called to RN SPR, VSS, anesthesia sign out completed. 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 SURGEON Surgeon(s) and Role: * Andi Smith MD - Primary ANESTHESIOLOGIST Anesthesiologist: Cydney Zavala MD DEVULCANIZER CHARGER: Geraldo [place] APRN-DEVULCANIZER CHARGER Student Nurse Spanish Professor: Chiquita Polanco SURGICAL STAFF Production Operations Manager: Miki Gary RN; Linda Gilmore RN Relief Production Operations Manager: Janet Carreon RN Scrub Person: Marielle Ibrahim Resident Assisting: Colt Meadows MD COMPLICATIONS None ESTIMATED BLOOD LOSS Minimal SPECIMENS No specimen sent * No specimens in log * Colt Meadows MD January 15, 2023 11:03 AM [facility] 01-15-2023 Nurse Surgical operation note Report given to PHOTOGRAPHY TEACHER. Patient transported to PACU with anesthesia on a cart and oxygen. [facility] 01-15-2023 Nurse Note Report given to PHOTOGRAPHY TEACHER. Patient transported to PACU with anesthesia on a cart and oxygen. documented in this encounter [facility] 01-15-2023 Hospital Discharge instructions Colt Meadows MD - 01/15/2023 9:30 AM EST Discharge Instructions for DBS Surgery & Battery Placement Surgery Here are some general guidelines to assist you in your recovery at home. Please do not hesitate to call us with any questions or concerns you may have. We can be reached at [phone]. Your appointmentS will be in the Neuromodulation clinic in [address] 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 documented in this encounter [facility] 01-09-2023 History and physical note Images from the original note were not included. History of Present Illness Ms. Byers is a 32 y.o. female is being evaluated in [facility] due to her medical condition of Jeavons Syndrome, which increases her risk for perioperative complications. Pt also has a hx of: Name: Rowena Byers Date of Surgery: 01/15/2023 9:40 AM Surgeon: Andi Smith MD Pre-Op Diagnosis: Jeavons Syndrome Planned Procedure: [...] 10 mg in 24 hours. Prenat MV-Min w/Wh-Vhqyow-ORR ( COMPLETE PO) Take 1 tablet by [...] % ointment HCG QUALITATIVE, URINE Pulse Ox RI ECG, CLINIC PERFORMED Lab A/P - Labs [...] patient has been medically OPTIMIZED FOR SURGERY. [facility] Perioperative Clinic [facility] [address] [facility] Review of Systems [...] DO as PCP - General (Internal Medicine) Petra Silveira APRN-FLOOR INSTALLER (Certified Nurse Practitioner) Family History Problem Relation Age of Onset Prostate Cancer Maternal Grandfather Mental Illness Maternal Grandmother Depression , Anxiety Prostate Cancer Paternal Grandfather Cancer- Other Paternal Grandfather Diabetes Paternal Uncle Social History Socioeconomic History Marital status: Highest education level: Bachelor's degree (e.g., BA, AB, BS) Occupational History 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 History of Present Illness Ms. Byers is a 32 y.o. female is being evaluated in [facility] due to her medical condition of Jeavons Syndrome, which increases her risk for perioperative complications. Pt also has a hx of: Name: Rowena Byers Date of Surgery: 01/15/2023 9:40 AM Surgeon: Andi Smith MD Pre-Op Diagnosis: Jeavons Syndrome Planned Procedure: [...] 10 mg in 24 hours. Prenat MV-Min w/Pp-Imuaqy-PAV ( COMPLETE PO) Take 1 tablet by [...] % ointment HCG QUALITATIVE, URINE Pulse Ox RI ECG, CLINIC PERFORMED Lab A/P - Labs [...] patient has been medically OPTIMIZED FOR SURGERY. [facility] Perioperative Clinic [facility] [address] [facility] Review of Systems [...] DO as PCP - General (Internal Medicine) Petra Silveira APRN-FLOOR INSTALLER (Certified Nurse Practitioner) Family History Problem Relation Age of Onset Prostate Cancer Maternal Grandfather Mental Illness Maternal Grandmother Depression , Anxiety Prostate Cancer Paternal Grandfather Cancer- Other Paternal Grandfather Diabetes Paternal Uncle Social History Socioeconomic History Marital status: Highest education level: Bachelor's degree (e.g., BA, AB, BS) Occupational History 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 Will check hCG today and on day of surgery. Patient understands that surgery may be cancelled if she is . Anesthesia Assessment:No contraindications to planned surgery. Pending review of the patient's labs.ECG reviewed. Whitney Ward MD [facility] documented in this encounter [facility] 01-09-2023 Instructions Robyn DempseyCASSIE - 01/09/2023 [...] take Herbal Medication (including multi-vitamin, fish oil (Glady-3), garlic, Glucosamine - Chondroitin ,gingko, ginseng, Vitamin [...] site one week prior to surgery. - Danube your teeth and rinse your mouth the morning of surgery. - Do NOT bring your dentures or partials with you into surgery. They may be lost. Give them to someone to bring to you after surgery. If you are unable to complete your scheduled testing or appointments made by [facility] please contact [facility] at [phone]. Failure to do so could delay or [...] surgery, please notify our team immediately at [phone]. - If you have Sleep apnea and have a CPAP or BIPAP, then bring your CPAP mask and machine with you to the hospital. Please contact Medical Information Management Department for all records requests. [phone] [phone] Puma/mateo documented in this encounter [facility] 12-10-2022 History of Present illness Narrative Neurosurgery [...] shows under general anesthesia. The patient saw Petra Silveira on 11-08-22 and at that point was [...] that were dedicated to clinical evaluation, including arkf-ex-csmv time; counseling and education; chart completion; reviewing [...] aspirin, excedrin, plavix), multivitamins/minerals/herbal supplements (such as Glady-3, garlic, Glucosamine - Chondroitin, gingko, ginseng, Vitamin E, fish oil, etc), non-steroidal anti-inflammatory medications (NSAIDs) (such as Ibuprofen/Motrin/Advil, Aleve, Celebrex) for 10 days prior to surgery, as these are blood thinners. She was advised that Tylenol is the preferred option for pain. She stated understanding. documented in this encounter [facility] 11-08-2022 History of Present illness Narrative Images from the original note were not included. Rowena Byers was seen in the [facility] at [facility] on 11/08/2022. She is here [...] ID AW Model ID SenTiva Serial # [id number] Implanted 03/27/2018 Communication OK Output Current Status [...] VNS Simple Reprogramming (1-3 changes) CPT code 00848 Assessment and Plan Assessment: Rowena is a [...] - she is scheduled to see Dr Smith in December - We discussed factors that [...] for replacement - scheduled to see Dr Smith for consultation and then replacement 3. Anxiety disorder, unspecified type - continue counseling - continue sertraline, we discussed possibly increasing this but for now would like to wait Encouraged use of Magnitude Software to send messages to provider as needed for questions and concerns or can call our clinic @ [phone]. She will return in 2 months or sooner if clinically indicated. Signed, Petra Silveira MSN, MACHINE SETTER AUTOMATIC-FLOOR INSTALLER [facility] Department of Neurology - Epilepsy Division [address] [place] [address] - 7th floor [place] [address] Pager: [phone] I spent a total of 46 minutes on the date of the service which included preparing to see the patient, kqwd-ui-iqsc patient care, completing clinical documentation, performing a medically appropriate examination and counseling and educating the patient/family/caregiver. Note to patient: The 21st Century Cures Act makes medical notes like these available to patients in the interest of transparency. However, be advised this is a medical document. It is intended as jomo-el-bias communication. It is written in medical language and may contain abbreviations or verbiage that are unfamiliar. It may appear blunt or direct. Medical documents are intended to carry relevant information, facts as evident, and the clinical opinion of the practitioner. documented in this encounter [facility] 11-08-2022 Instructions JETHRO Juan - 11/08/2022 4:20 [...] ID AW Model ID SenTiva Serial # [id number] Implanted 03/27/2018 Communication OK Output Current Status OK Current Delivered 1.75 Lead Impedance OK Impedance Value 2903 IFI NO Average # of Inhibited Auto stimulations Daily Avg. Stim % Per Day %Therapy Normal 843.56 AutoStim 26.89 Magnet 0.04 Total 870.50 documented in this encounter [facility] 07-04-2021 Instructions JETHRO Juan - 07/04/2021 9:06 AM EDT Drug name: Depakote ER Pill strength: 250 mg Drug name: Vimpat Pill strength: 100 mg Week 1 Start: 1 tablet in the evening 1/2 tab in the morning, 1/2 tab in the evening Week 2 Start: STOP 1 tablet twice daily and continue Follow up in 4-6 weeks with Petra documented in this encounter [facility] 07-04-2021 History of Present illness Narrative Images from the original note were not included. Rowena Byers was seen in the [facility] at [facility] on 07/04/2021. 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 Encouraged use of Magnitude Software to send messages to provider as needed for questions and concerns or can call our clinic @ [phone]. She will return in 6 weeks and 3 months with me and [address] Hernández or sooner if clinically indicated. Signed, Petra Silveira MSN, MACHINE SETTER AUTOMATIC-FLOOR INSTALLER [facility] Department of Neurology - Epilepsy Division [address] - 7th floor [place] [address] Pager: [phone] Time to complete visit: I spent approximately 38 minutes reviewing the chart prior to the appointment, in face to face counseling with the patient, and with documentation after the visit. 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 [facility] Diagnosis Preop exam for internal medicine- Primary Other specified pre-operative examination 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 Other postprocedural status Jeavons syndrome [facility] 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 Other postprocedural status [facility] Diagnosis Encounter for fertility planning [facility] Diagnosis Jeavons syndrome- Primary Anxiety disorder, unspecified type [facility] Diagnosis Onset Date Resolution Status Maxillary sinusitis acute [facility] Work Phone: Evaluation note* Diagnosis Jeavons syndrome- Primary Anxiety disorder, unspecified type [facility] Diagnosis Onset Date Resolution Status Maxillary sinusitis acute Maxillary sinusitis acute [facility] Work Phone: Reason for referral (narrative)* Consultation (Routine) - New Request Specialty Diagnoses / Procedures Referred By Contac t Referred To Contact Neurologic Surgery Diagnoses Jeavons syndrome Andi Smith MD [address] [place] [phone] Referral ID Status Reason Start Date Expiration Date V isits Requested Visits Authorized [id number] New Request 12/10/2022 01/04/2024 1 1 [facility] Summary Purpose Family History No Family History Records Found Relationship Condition Age at Onset Recorded Date/T jorge grandparent Malignant neoplasm Unknown Advance Directives No Advanced Directives Records Found Advance Directive Response Recorded Date/ Time Advance Directives No July 06, 024 12:12pm Reason for Referral Specialty Diagnoses / Procedures Referred By Contac t Referred To Contact Diagnoses Generalized nonconvulsive epilepsy Petra Silveira, MACHINE SETTER AUTOMATIC-FLOOR INSTALLER [address] [place] [address] Referral ID Status Reason Start Date Expiration Date V isits Requested Visits Authorized [id number] Pending Review 1 1 Specialty Diagnoses / Procedures Referred By Contac t Referred To Contact Procedures DVT/VTE RISK ASSESSMENT Andi Smith MD [address] [place] [phone] Referral ID Status Reason Start Date Expiration Date V isits Requested Visits Authorized [id number] New Request 01/15/2023 02/09/2024 1 1 Chief Complaint and Reason for Visit Chief Complaint sinus infection Reason for Visit Maxillary sinusitis Chief Complaint sinus infection sinus infection Reason for Visit Maxillary sinusitis Maxillary sinusitis Additional Source Comments INFORMATION SOURCE (unrecogn ized section and content) DATE CREATED AUTHOR 09/03/2017 [facility] DATE CREATED AUTHOR AUTHOR'S ORGANIZ ATION 03/28/2018 [facility] DATE CREATED AUTHOR AUTHOR'S ORGANIZ ATION 07/02/2018 [facility] DATE CREATED AUTHOR AUTHOR'S ORGANIZ ATION 10/02/2019 [facility] DATE CREATED AUTHOR AUTHOR'S ORGANIZ ATION 06/01/2022 [facility] DATE CREATED AUTHOR AUTHOR'S ORGANIZ ATION 04/24/2023 [facility] EPIC DATE CREATED AUTHOR AUTHOR'S ORGANIZ ATION 10/21/2023 [facility] EPIC DATE CREATED AUTHOR AUTHOR'S ORGANIZ ATION 06/07/2024 [facility] Reason for Visit (unrecogniz ed section and content) Reason Comments Follow-up Reason Comments Follow-up Reason Comments New Patient 32 y.o female here f or consult. Specialty Diagnoses / Procedures Referred By Contharjinder t Referred To Contact Neurologic Surgery Diagnoses Jeavons syndrome S/P placement of VNS (vagus nerve stimulation) device Petra Silveira, MACHINE SETTER AUTOMATIC-FLOOR INSTALLER [address] [place] [address] Referral ID Status Reason Start Date Expiration Date V isits Requested Visits Authorized [id number] New Request 09/19/2022 10/14/2023 1 1 Reason Comments Preoperative Assessment Specialty Diagnoses / Procedures Referred By Rainer t Referred To Contact Neurologic Surgery Diagnoses Jeavons syndrome Andi Smith MD [address] [place] [phone] Referral ID Status Reason Start Date Expiration Date V isits Requested Visits Authorized [id number] New Request 12/10/2022 01/04/2024 1 1 Specialty Diagnoses / Procedures Referred By Rainer t 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] Procedures RI IMP STIM,CRANIAL,SUBQ,1 ARRAY INSERTION REPLACEMENT NEUROSTIMULATOR GENERATOR CRANIAL/INTRACRANIAL Andi Smith MD [address] [place] [phone] [facility] [address] [place] [address] Referral ID Status Reason Start Date Expiration Date Visits Re quested Visits Authorized [id number] 1 1 Reason Comments Infertility Reason Onset Date Comments Insurance 11/14/2023 Lamotrigine ER Reason Onset Date Comments Insurance 11/19/2023 Care Teams (unrecognized sec tion and content) Remnant Sorter Relationship Specialty Start Date End Date Tim Rolon [address] [place] [address] PCP - General Internal Medicine 09/19/22 Petra Silveira, MACHINE SETTER AUTOMATIC-FLOOR INSTALLER [address] [place] [phone] Certified Nurse Practitioner 11/08/22 Remnant Sorter Relationship Specialty Start Date End Date Tim Rolon [address] [place] [address] PCP - General Internal Medicine 09/19/22 Petra Silveira, MACHINE SETTER AUTOMATIC-FLOOR INSTALLER [address] [place] [phone] Certified Nurse Practitioner 11/08/22 Remnant Sorter Relationship Specialty Start Date End Date Tim Rolon [address] [place] [address] PCP - General Internal Medicine 09/19/22 Petra Silveira, MACHINE SETTER AUTOMATIC-FLOOR INSTALLER [address] [place] [phone] Certified Nurse Practitioner 11/08/22 Remnant Sorter Relationship Specialty Start Date End Date Tim Rolon [address] [place] [address] PCP - General Internal Medicine 09/19/22 Petra Silveira, MACHINE SETTER AUTOMATIC-FLOOR INSTALLER [address] [place] [phone] Certified Nurse Practitioner 11/08/22 Remnant Sorter Relationship Specialty Start Date End Date Tim Rolon DO [address] [place] [address] PCP - General Internal Medicine 09/19/22 Petra Silveira, MACHINE SETTER AUTOMATIC-FLOOR INSTALLER [address] [phone] Certified Nurse Practitioner 11/08/22 Remnant Sorter Relationship Specialty Start Date End Date Tim Rolon DO [address] [place] [address] PCP - General Internal Medicine 09/19/22 Petra Silveira, MACHINE SETTER AUTOMATIC-FLOOR INSTALLER [address] [phone] Certified Nurse Practitioner 11/08/22 Remnant Sorter Relationship Specialty Start Date End Date Tim Rolon MD [address] [place] [phone] PCP - General Internal Medicine 08/08/22 Remnant Sorter Relationship Specialty Start Date End Date Tim Rolon DO [address] [place] [address] PCP - General Internal Medicine 09/19/22 Petra Silveira, MACHINE SETTER AUTOMATIC-FLOOR INSTALLER [address] [phone] Certified Nurse Practitioner 11/08/22 Team Status: Active [...] End: July 07, 2023 Kristine Oneill APRN MICROFABRICATION ENGINEER MANAGER-Ruiz Attending Provider Act duncan Start: July 07, 2023 End: July 07, 2023 Remnant Sorter Relationship Specialty Start Date End Date Tim Rolon [address] [place] [address] PCP - General Internal Medicine 09/19/22 Petra Silveira APRN-FLOOR INSTALLER [address] [phone] Certified Nurse Practitioner 11/08/22 Team Status: Active Member Role Status Dates Tim Haylie DO Primary Care Provide r, Attending Provider Active Start: July 09, 2023 Team Status: Active Member Role Status Dates Tim Haylie DO Primary Care Provide r, Attending Provider Active Start: August 08, 2023 Team Status: Active Member Role Status Dates Tim Rolon DO Primary Care Provide r, Attending Provider Active Start: September 11, 2023 Team Status: Inactive Member Role Status Dates Tim Rolon DO Primary Care Provider Active Start: September 24, 2023 End: September 24, 2023 Kristine Oneill APRN MICROFABRICATION ENGINEER MANAGERHeavenly Attending Provider Act duncan Start: September 24, 2023 End: September 24, 2023 Remnant Sorter Relationship Specialty Start Date End Date HaylieTimDO [address] [place] [address] PCP - General Internal Medicine 09/19/22 Petra Silveira APRN-FLOOR INSTALLER [address] [phone] Certified Nurse Practitioner 11/08/22 Remnant Sorter Relationship Specialty Start Date End Date Tim Rolon MD [address] [place] [address] PCP - General Internal Medicine 08/08/22 Remnant Sorter Relationship Specialty Start Date End Date Tim Rolon MD [address] [place] [address] PCP - General Internal Medicine [...] 1104, Intra-op/Intra-Proc 1010 (Given - Provid er: Andi Smith MD - Comment: mixed 1:1 w/Lido with epi 1:[id number]) ceFAZolin (ANCEF) 2 g in dextrose 100 mL premix IVPB (COMPLETED) 2 g, Intravenous, Administer over 30 Minutes, INSPECTOR SOLDERING TO PROCEDURE, 1 dose, Starting on Fri01/15/23 at 0758, Until Discontinued, Other, Surgical Prophylaxis, Initiate antibiotic administration 30-60 minutes prior to surgical incision and complete administration prior to surgical incision., Pre-op/Pre-Proc 0955 (Given - Provid er: Geraldo Marion, MACHINE SETTER AUTOMATIC-[facility]) lidocaine-epinephrine 2 %-1:858750 injection (CANCELED) NEEDED, Starting on Fri01/15/23 at 1017, Until Fri01/15/23 at 1104, Intra-op/Intra-Proc 1017 (Given - Provid er: Andi Smith MD - Comment: mixed 1:1 w/ 0.25% [...] 1104, Intra-op/Intra-Proc 1034 (Given - Provid er: Andi Smith MD) Vancomycin (VANCOCIN) injection (CANCELED) NEEDED, Starting on Fri01/15/23 at 1033, Until Fri01/15/23 at 1104, Intra-op/Intra-Proc 1033 (Given - Provid er: Andi Smith MD) Vancomycin HCl in NaCl (VANCOCIN) 1,000 mg in 200 ml NS premix IVPB (COMPLETED) 1,000 mg (rounded from 1,006.5 mg = 15 mg/kg 67.1 kg Order-specific weight), Intravenous, Administer over 1 Hours, INSPECTOR SOLDERING TO PROCEDURE, 1 dose, Starting on Fri01/15/23 [...] BE BASED ON THE PRIMARY CLINICAL RECORDS. [facility] [employer] [facility]. provides no warranty or guarantee of the accuracy or completeness of information in this document.
[2024-06-28 17:05] LABS: Alanine Aminotransferase 18 U/L (14-59); Albumin Globulin Ratio 1.2; Alkaline Phosphatase 43 U/L (46-116); Anion Gap 12.5; Aspartate Amino Transferase 14 U/L (15-37); BUN Creatinine Ratio 20.6; Bilirubin Total 0.2 mg/dL (0.2-1.0); Calcium 9.3 mg/dL (8.5-10.1); Carbon Dioxide 26.9 mmol/L (21.0-32.0); Chloride 103 mmol/L (98-107); Estimated GFR (African America >60 (>=60 mL/min/1.73m^2); Estimated GFR (Non-African Ame >60 (>=60 mL/min/1.73m^2); Globulin 3.4 g/dL; Glucose 89 mg/dL (74-106); Potassium 4.4 mmol/L (3.5-5.1); Sodium 138 mmol/L (136-145); Total Protein 7.4 g/dL (6.4-8.2)
[2024-07-01 13:08] LABS: Lamotrigine (Lamictal), Serum 4.8 ug/mL (2.0-20.0)
== END 2024-06-28 16:18 | disposition home or self-care (01) ==
PROVIDERS: PCP Internal Medicine
DX: G40.802 Other epilepsy, not intractable, without status epilepticus (principal); N97.0 Female infertility associated with anovulation; N97.9 Female infertility, unspecified
CPT/HCPCS: 36415; 80053; 80175; 84144

== ENCOUNTER 2024-06-28 16:28 | Outpatient (OUT) | payer OTHER, SELFPAY ==
[2024-06-30 04:07] LABS: Progesterone 32.1 ng/mL (.)
== END 2024-06-28 16:29 | disposition home or self-care (01) ==
PROVIDERS: PCP Internal Medicine; Visit Provider Obstetrics & Gynecology
DX: N97.0 Female infertility associated with anovulation (principal); N97.9 Female infertility, unspecified
CPT/HCPCS: 36415; 84144

== ENCOUNTER 2024-07-20 09:51 | Outpatient (REF) | payer OTHER, SELFPAY ==
--- OUTSIDE RECORDS SUMMARY | 2021-05-03 05:47 | XMS_ITS | Continuity of Care Document ---
Author [facility] [employer] [facility] Address [address] [facility] [place] [address] Phone Care Team Providers Care Drawbridge Operator Name Role Phone Jefe Dowell MD Unavailable [...] Diagnoses Date Provider Providers Copied on Encounter [facility], [address] [place] [address], [id number] , tel:+ [phone] [facility] No Information 2 Delmer Mayberry. [address], [id number], [place]. tel:[phone] [facility], [address] [place] [address], [id number] , [place] tel:+ [phone] [facility] Wants Nexplanon (chief complaint) Encounter for contraceptive management, unspecified 6 No Information PREV VISIT, EST, AGE 18-39 [facility], [address] [place] [address], [place], [place], [id number] , [place] tel: [phone] [facility] PAP test (chief complaint) Well woman examDepo-Prov era contraceptive statusAmenorr heaRoutine screening for STI (sexually transmitted infection)Cer vical cancer screening 5 No [employer] [facility], [address], [place], [id number] , [place] tel:[phone] [facility] Depo (chief complaint) Encounter for other contraceptive management 5 No Information OFFICE/OUTPA TIENT VISIT, [facility] [employer] [facility], [address], [place], [id number] , [place] tel:[phone] [facility] sinus symptoms (chief complaint) Acute recurrent maxillary sinusitis 5 No [employer] [facility], [address] [place] [address] [address], [place]ice [place]ers [place], [id number] , [place] tel:[phone] [facility] depo Provera (chief complaint) Other general counseling and advice on contraceptive management 5 No [employer] [facility], [address] [place] [address] [address], Felice [place]ers [place], [id number] , [place] tel:[phone] [facility] Depo Provera (chief complaint) Other general counseling and advice on contraceptive management 5 No [facility], [address] [place] [address] [address], [place]ice [place]ers [place], [id number] , [place] tel:+ [phone] [facility] No Information 5 No [facility], [address] [place] [address] [address], [place], [id number] , [place] tel:+ [phone] [facility] Unspecified contraceptive managementOth er general counseling and advice on contraceptive management 5 No [facility], [address] [place] [address] [address], Felice Byers [place], [id number] , [place] tel:[phone] [facility] depo injection (chief complaint) Other general counseling and advice on contraceptive management 4 No [facility], [address] [place] [address] [address], [place], [id number] , [place] tel:+ [phone] [facility] No Information 4 No [facility], [address] [facility], [place], [place], [id number] , [place] tel:+ [phone] [facility] No Information 4 No Information PREVENTIVE COUNSELING, INDIV [employer] [facility], [address] [place] [address], [place], [place], [id number] , [place] tel:+ [phone] [facility] pap results (chief complaint) Sexually transmitted disease counselingCer vical high risk HPV (human papillomaviru s) test positive 4 No Information [employer] [facility], [address] [place] [address], [place], [place], [id number] , [place] tel:+ [phone] [facility] No Information 4 No Information PREV VISIT, EST, AGE 18-39 [employer] [facility], [address] [place] [address], [id number] , [place] tel:[phone] [facility] PAP test (chief complaint) Gynecologic ExamCervical cancer screeningRout ine screening for STI (sexually transmitted infection)Dep o-Provera contraceptive statusOther specified contraceptive management 4 No Information [employer] [facility], [address] [place] [address], [place], [place], [id number] , [place] tel:[phone] [facility] Depo Injection (chief complaint) Other specified contraceptive management 4 No Information [employer] [facility], [address] [place] [address], [id number] , [place] tel:+ [phone] [facility] No Information 4 No Information [employer], [address] [place] [address], [place], [place], [id number] , [place] tel:[phone] [facility] depo provera injection (chief complaint) No Information 4 No Information OFFICE/OUTPA TIENT VISIT, [facility] [employer] [facility], [address] [place] [address], [place], [place], [id number] , [place] tel:[phone] [facility] fever (chief complaint) Influenza with other respiratory manifestation sUnspecified sinusitis (chronic)Conj unctivitis 4 No Information OFFICE/OUTPA TIENT VISIT, EST [facility], [address] [place] [address], [place], [place], [id number] , tel:[phone] [facility] contraceptive follow up (chief complaint) Surveillance for Depo-Provera contraception 4 No Information [facility], [address] [place] [address], [place], [place], [id number] , tel:+ [phone] [facility] depo shot (chief complaint) Allergic rhinitis, cause unspecifiedEp ilepsy, unspecified, without mention of intractable epilepsyOther general counseling and advice on contraceptive management 3 Lian Samson. [address], [place], [id number], [place]. tel:[phone] Referring Provider: Mali Menjivar [address] [facility], [place], [address] . tel:[phone] [facility], [address] [place] [address], [id number] , [place] tel: [phone] [facility] depo injection (chief complaint) No Information 3 No Information [facility], [address] [place] [address], [place], [place], [id number] , [place] tel:+ [phone] [facility] No Information 3 No Information Family History Family Member Type Diagnosis Age At Onset Mother Problem (finding) hypertension Father Problem (finding) GERD Payers Payer name Insurance type Covered alliance party ID Authorconchisa tiford(s) [facility] CI [id number] Social History Type Description Quantity Date Captured Comments Sex Female Smoking Status No Information Chief Complaint And Reason For Visit No Information Reason For Referral Reason For Referral No Information Plan Of Treatment Date Type Action Status Goal Td vaccine. Due on 16 due Goal HPV (1st). Due on 6 due Goal Pap liquid based for cytology. Due on due Goal Glucose. Due on due Goal URINALYSIS NONAU TO W/O SCOPE. Due on due Goal Medroxyprogester one inj. Due on due Goal Depression scree susan. Due on due Goal OARRS. Due on du e Goal THER/PROPH/DIAG INJ, SC/IM. Due on due Goal Colonoscopy. Due on 016 due Goal Mammogram. Due on 6 due Goal PRESTIDIGITATOR/Breast exam. Due on due Goal Influenza vaccine. Due on due Goal Colonoscopy. Due on 015 due Goal PRESTIDIGITATOR/Breast exam. Due on due Goal HPV (1st). Due on 5 due Goal Td vaccine. Due on 15 due Goal Influenza vaccine. Due on due Goal Pap liquid based for cytology. Due on due Goal Glucose. Due on due Goal THER/PROPH/DIAG INJ, SC/IM. Due on due Goal HPV, high+low-ri sk. Due on due Goal URINALYSIS NONAU TO W/O SCOPE. Due on due Goal Medroxyprogester one inj. Due on due Goal Depression scree susan. Due on due Goal OARRS. Due on du e Goal Mammogram. Due on 5 due Goal Pap liquid based for cytology. Due on due Goal HPV, high+low-ri sk. Due on due Goal Glucose. Due on due Goal URINALYSIS NONAU TO W/O SCOPE. Due on due Goal Medroxyprogester one inj. Due on due Goal Depression scree susan. Due on due Goal OARRS. Due on du e Goal Colonoscopy. Due on due Goal Mammogram. Due on due Goal PRESTIDIGITATOR/Breast exam. Due on due Goal HPV (). Due on due Goal Td vaccine. Due on 15 due Goal Influenza vaccine. Due on due Goal HPV, high+low-ri sk. Due on due Goal Pap liquid based for cytology. Due on due Goal Td vaccine. Due on 15 due Goal Influenza vaccine. Due on due Goal HPV (1st). Due on due Goal PRESTIDIGITATOR/Breast exam. Due on due Goal Colonoscopy. Due on 015 due Goal Mammogram. Due on due Goal Glucose. Due on due Goal URINALYSIS NONAU TO W/O SCOPE. Due on due Goal Medroxyprogester one inj. Due on due Goal Depression scree susan. Due on due Goal OARRS. Due on du e Goal Influenza vaccine. Due on due Goal Td vaccine. Due on 15 due Goal Glucose. Due on due Goal HPV, high+low-ri sk. Due on due Goal Pap liquid based for cytology. Due on due Goal URINALYSIS NONAU TO W/O SCOPE. Due on due Goal Medroxyprogester one inj. Due on due Goal Depression scree susan. Due on due Goal OARRS. Due on du e Goal Mammogram. Due on 5 due Goal Colonoscopy. Due on 015 due Goal PRESTIDIGITATOR/Breast exam. Due on due Goal HPV (1st). Due on 5 due Goal PRESTIDIGITATOR/Breast exam. Due on due Goal Influenza vaccine. Due on due Goal Tdap. Due on due Goal Pap/HPV testing. Due on due Goal Pap liquid based for cytology. Due on due Goal HPV, high+low-ri sk. Due on due Goal Glucose. Due on due Goal Medroxyprogester one inj. Due on due Goal Depression scree susan. Due on due Goal THER/PROPH/DIAG INJ, SC/IM. Due on due Goal INSERT DRUG IMPL ANT DEVICE. Due on due Goal OARRS. Due on du e Goal EKG. Due on due Goal Mammogram. Due on 5 due Goal Td vaccine. Due on 15 due Goal HPV (1st). Due on 5 due Goal URINALYSIS NONAU TO W/O SCOPE. Due on due Goal Pap liquid based for cytology. Due on due Goal URINALYSIS NONAU TO W/O SCOPE. Due on due Goal Medroxyprogester one inj. Due on due Goal OARRS. Due on du e Goal THER/PROPH/DIAG INJ, SC/IM. Due on due Goal INSERT DRUG IMPL ANT DEVICE. Due on due Goal PRESTIDIGITATOR/Breast exam. Due on due Goal HPV (1st). Due on 5 due Goal Tdap. Due on due Goal Td vaccine. Due on 15 due Goal Influenza vaccine. Due on due Goal HPV, high+low-ri sk. Due on due Goal Pap/HPV testing. Due on due Goal Glucose. Due on due Goal Depression scree susan. Due on due Goal INSERT DRUG IMPL ANT DEVICE. Due on due Goal THER/PROPH/DIAG INJ, SC/IM. Due on due Goal OARRS. Due on du e Goal Depression scree susan. Due on due Goal Medroxyprogester one inj. Due on due Goal URINALYSIS NONAU TO W/O SCOPE. Due on due Goal Glucose. Due on due Goal HPV, high+low-ri sk. Due on due Goal Pap/HPV testing. Due on due Goal Pap liquid based for cytology. Due on due Goal Td vaccine. Due on 14 due Goal Influenza vaccine. Due on due Goal Tdap. Due on due Goal HPV (). Due on 4 due Goal PRESTIDIGITATOR/Breast exam. Due on due Goal PRESTIDIGITATOR/Breast exam. Due on due Goal Influenza vaccine. Due on due Goal HPV (). Due on 4 due Goal Tdap. Due on due Goal Td vaccine. Due on 14 due Goal Glucose. Due on due Goal HPV, high+low-ri sk. Due on due Goal Pap/HPV testing. Due on due Goal URINALYSIS NONAU TO W/O SCOPE. Due on due Goal Depression scree susan. Due on due Goal THER/PROPH/DIAG INJ, SC/IM. Due on due Goal INSERT DRUG IMPL ANT DEVICE. Due on due Goal OARRS. Due on du e Future Order: Radiol ogy Order BD Bone Density DEXA ([id number]), Ordered on: Ordered Future Order: Lab Order Pap Liqu id Based For Cytology ([id number]), Appointment on: , Collected on: Ordered Future Order: Lab Order Pap Liqu id Based For Cytology ([id number]), Appointment on: , Collected on: Ordered History [...] July. She is looking for job in [employer]. Depo Injection Last Depo Apr.Next Depo Oct 21- Nov 04 Functional Status Date Functional Assessmen t No Information Instructions Date Instruction Additional Infor kristie See [facility] handout on N explanon after care. Related [...] counseling See plan details Related to Sexu ally transmitted disease counseling Continue with Depo-p rovera as directed. Return for next injection in 12 weeks. Annual exam in 1 year. Related to Depo-Provera contraceptive status I will notify you of any abnormal [...] multiple vitamin use. Related to Gynecologic Exam It is important to c onsistently use [...] transmitted infection) See plan details Related to Depo -Provera [...]
--- OUTSIDE RECORDS SUMMARY | 2024-07-20 11:10 | XMS_ITS | Encounter Summary ---
Author Organization [facility] Address [address] [place] [address] Care Team Providers Care Mailroom Assistant Name Role Phone Tim Rolon Primary Care Provider Reason for Visit * Reason Comments Skin Tag Pt present today for a skin tag on right areola. Encounter Details Date Type Department Care Team (Late st Contact Info) Description 07/20/2024 11:10 AM EDT Office Visit [facility] [address] [place] [address] Donovan Burks DO [address] [facility] [address] [place], [facility]11 Skin tag Social History Tobacco Use Types Packs/Day Years Used Date Smoking Tobacco: Never Smokeless Tobacco: Never Alcohol Use Standard Drinks/Week Comments Not Asked 0 (1 standard drink = 0.6 oz pur e alcohol) Occasional alcohol use Comments No Sex and Gender Information Value Date Recorded Sex Assigned at Not on file Legal Sex Female 11:21 PM EDT Gender Identity Not on file Sexual Orientation Not on file documented as of this encounter Last Filed Vital Signs Vital Sign Reading Time Taken Comments Blood Pressure 118/70 07/20/2024 11:33 AM EDT Pulse - - Temperature - - Respiratory Rate - - Oxygen Saturation - - Inhaled Oxygen Concentration - - Weight 89.8 kg (198 lb) 07/20/2024 11:33 AM EDT Height - - Body Mass Index 34.52 08/08/2022 10:30 AM EDT documented in this encounter Progress Notes * Rhonda Dubois LPN - 07/20/2024 11:10 AM EDT Reason for Appointment: Patient ID: Rowena Drake is a 34 y.o. female who presents for Skin Tag (Pt present today for a skin tag on right areola.) Patient presents today for skin tag removal and Acute Visit. MEDICATIONS Current Outpatient Medications Medication Instructions Calcium Carb-Cholecalciferol 600-12.5 MG-MCG capsule cloBAZam (Onfi) 20 MG tablet Oral Clomid 50 MG tablet TAKE 2 TABLETS BY MOUTH ON DAYS 3-7 OF CYCLE escitalopram (Lexapro) 20 MG tablet 1 tablet Orally at bedtime folic acid (Folvite) 1 MG tablet Oral, Daily lamoTRIgine (LAMICTAL XR) 300 mg, Oral, Nightly loratadine (CLARITIN) 10 mg, Oral, Daily PRN loratadine-pseudoephedrine ER (Claritin-D 12-hour) 5-120 MG 12 hr tablet 1 tablet, Oral, 2 times daily, Do not crush, chew, or split. LORazepam (Ativan) 0.5 MG tablet Oral metFORMIN (GLUCOPHAGE) 500 mg, Oral, Daily with breakfast metFORMIN XR (Glucophage-XR) 500 MG 24 hr tablet TAKE 1 TABLET BY MOUTH EVERY DAY WITH EVENING MEAL Multiple Vitamins-Minerals (CULTURELLE PROBIOTICS + MULTIV PO) Oral MV-Min-Fe Fum-FA-DHA ( 1 PO) Oral sertraline (ZOLOFT) 150 mg, Oral, Nightly ALLERGIES Allergies Allergen Reactions Other Runny nose Other Reaction(s): Nasal Congestion Pollen Extract Runny nose Other Reaction(s): Congestion PROBLEMS Active Ambulatory Problems Diagnosis Date Noted PCOS (polycystic ovarian syndrome) 12/10/2022 Resolved Ambulatory Problems Diagnosis Date Noted No Resolved Ambulatory Problems Past Medical History: Diagnosis Date Anxiety Generalized seizure disorder (CMS/HCC) HISTORY PAST MEDICAL HISTORY SOCIAL HISTORY Past Medical History: Diagnosis Date Anxiety Generalized seizure disorder (CMS/HCC) PCOS (polycystic ovarian syndrome) Social History Tobacco Use Smoking status: Never Smokeless tobacco: Never Substance Use Topics Alcohol use: Not on file Comment: Occasional alcohol use Drug use: Never FAMILY HISTORY Family History Problem Relation Name Age of Onset Hypertension Mother No Known Problems Father No Known Problems Brother SURGICAL HISTORY Past Surgical History: Procedure Laterality Date VAGUS NERVE STIMULATOR INSERTION 01/15/2023 battery replacement REVIEW OF SYSTEMS Review of Systems: Review of Systems OBJECTIVE Objective: Physical Exam Constitutional: Appearance: Normal appearance. She is well-developed. Genitourinary: Genitourinary Comments: Skin tag on right nipple Cardiovascular: Rate and Rhythm: Normal rate and [...] nursing note reviewed. Exam conducted with a fans clerk present. Vitals: Estimated body mass index is 34.52 kg/m?? as calculated from the following: Height as of 08/08/22: 5' 3.5 . Weight as of this encounter: 198 lb. BP: 118/70 No LMP recorded. ASSESSMENT & PLAN ICD-10-CM 1. Skin tag L91.8 Skin Tag Removal: Patient presents today for skin tag removal. Patient signed consents for procedure. Patient was placed in supine position was draped in normal fashion. Area cleansed with alcohol, lidocaine injected after allowing sufficient time to take affect. picking table worker and scissors used to remove affected area. Placed in formalin and sent to pathology. Post-procedure instructions given. Follow Up: As needed Documented by Rhonda Dubois LPN on behalf of: Donovan Burks DO documented in this encounter Plan of Treatment Upcoming Encounters Date Type Department Care Team (Late st Contact Info) Description 10/28/2024 9:00 AM EDT Office Visit [facility] [address] [facility] [address] [phone] Donovan Burks DO [address] [place] [address] documented as of this encounter Visit Diagnoses Diagnosis Skin tag Unspecified hypertrophic and atrophic condition of skin documented in this encounter Care Teams Mailroom Assistant Relationship Specialty Start Date End Date Tim Rolon DO [address] [place] [phone] PCP - General Internal Medicine 08/08/22 documented as of this encounter
--- OUTSIDE RECORDS SUMMARY | 2024-07-28 09:54 | XMS_ITS | Clinical Summary ---
Author Organization [employer] Address [id number] [address] [place] [address] Care Team Providers Care Industrial Waste Inspector Name Role Phone Unavailable Primary Care Provider Unavailabl e Social History Tobacco Use Types Packs/Day Years Used Date Smoking Tobacco: Never Assessed Childcare Answer Date Recorded Childcare Unknown 08/18/2018 Employment Answer Date Recorded Employment Unknown 08/18/2018 Comments Unknown Sex and Gender Information Value Date Recorded Sex Assigned at Female 11/19/2022 3:37 PM EDT Legal Sex Female 8:46 PM EDT Gender Identity Female 11/19/2022 3:37 PM EDT Sexual Orientation Straight 11/19/2022 3: 37 PM EDT Plan of Treatment Health Maintenance Due Date Last Done Comments Depression Screening 2004 Tobacco Screening 2004 Adult BMI Screening 2010 DTaP,Tdap and Td Vaccines (1 - Tdap) 07/15/2011 Pap Smear 2013 Influenza Vaccine 11/08/2024 Medical Devices Not on file
--- OUTSIDE RECORDS SUMMARY | 2024-07-28 09:55 | XMS_ITS | Encounter Summary ---
Author Organization [facility] Address [address] [facility] [place] [address] Care Team Providers Care Office Cleaner Name Role Phone Tim Rolon DO Primary Care Provider [phone] Encounter Details Date Type Department Care Team (Late Contact Info) Description 07/20/2024 External Result Encounter [facility] External Department Unsolicited Donovan Burks, [address] [place] [id number] Social History Tobacco Use Types Packs/Day Years [...] on file documented as of this encounter Plan of Treatment Upcoming Encounters Date Type Department Care Team (Late Contact Info) Description 10/28/2024 9:00 AM EDT Office Visit [facility] [address] [place] [address] Donovan Burks DO [address] [place] [address] documented as of this encounter Procedures Procedure Name Priority Date/Time Associated Diagnosis Comments PATHOLOGY REQUEST FOR LAB HELGA Routine 07/20/2024 12:00 AM EDT documented in this encounter Results * PATHOLOGY REQUEST FOR LAB HELGA (07/20/2024 12:00 AM EDT) PATHOLOGY REQUEST FOR LAB HELGA 07/27/2024 9:00 AM EDT [facility] Comment:See report. Scanned copy available in EMR. Other Topography unknown / Unknown 07/20/2024 07/21/2024 1:15 PM EDT Narrative [facility] - 07/27/2024 9:00 AM EDT SKIN TAG Donovan Burks DO LAB BLOOD ORDERABLES Final Resul t [facility] [address] [place] [address], [facility] [address] [place] [address] documented in this encounter Visit Diagnoses Not on filedocumented in this encounter Care Teams Office Cleaner Relationship Specialty Start Date End Date Tim Rolon DO [address] [place] [address] PCP - General Internal Medicine 08/08/22 documented as of this encounter
--- OUTSIDE RECORDS SUMMARY | 2024-07-28 09:55 | XMS_ITS | Encounter Summary ---
Author Organization [facility] Address [address] [place] [address] Care Team Providers Care Side Gluer Name Role Phone GonzalesTim Primary Care Provider [phone] Reason for Visit * Reason Comments Med Refill Encounter Details Date Type Department Care Team (Late st Contact Info) Description 07/12/2024 Refill [facility] OB [address] [facility] [address] [address] Donovan Burks DO [address] [facility] [address] [place], [place] [phone] Anovulation Social History Tobacco Use Types Packs/Day Years [...] on file documented as of this encounter Miscellaneous Notes * Telephone Encounter - Rhonda Dubois LPN - 07/20/2024 11:53 AM EDT [facility] refer [facility] for Fertility consult. * Telephone Encounter - Gabbie Lane LPN - 07/13/2024 8:22 AM EDT Sent 07/12/2024 documented in this encounter Plan of Treatment Upcoming Encounters Date Type Department Care Team (Late st Contact Info) Description 10/28/2024 9:00 AM EDT Office Visit [facility] OB [address] [facility] [place] [address] Donovan Burks DO [address] [facility] [address] [place], [place] [phone] documented as of this encounter Visit Diagnoses Diagnosis Anovulation Female infertility associated with anovulation documented in this encounter Care Teams Side Gluer Relationship Specialty Start Date End Date Tim Rolon DO [address] [facility] [place] [address] PCP - General Internal Medicine 08/08/22 documented as of this encounter
--- OUTSIDE RECORDS SUMMARY | 2024-07-28 09:55 | XMS_ITS | Encounter Summary ---
Author Organization [facility] Address [address] [facility] [[email or web address]] [place] [address] Care Team Providers Care Edging Catcher Name Role Phone Tim Rolon DO Primary Care Provider [phone] Reason for Visit * Reason Comments Med Refill Encounter Details Date Type Department Care Team (Late Contact Info) Description 06/20/2023 Refill [facility] [address] [place] [address] Donovan Burks [address], [place] [address] Female infertility; Fallopian tube disorder Social History Tobacco Use Types Packs/Day Years Used Date Smoking Tobacco: Never Smokeless Tobacco: Never Alcohol Use Standard Drinks/Week Comments Not Asked 0 (1 standard drink = 0.6 oz pur e alcohol) Occasional alcohol use Comments Unknown Sex and Gender Information Value Date Recorded Sex Assigned at Not on file Legal Sex Female 11:21 PM EDT Gender Identity Not on file Sexual Orientation Not on file documented as of this encounter Plan of Treatment Upcoming Encounters Date Type Department Care Team (Late Contact Info) Description 10/28/2024 9:00 AM EDT Office Visit [facility] [address] [place] [address] Donovan Burks, [address], [place] [address] Scheduled Orders Name Type Priority Associated Diagnoses Orde r Schedule hCG, quantitative, Lab Routine Fallopian tube disorder Expected: 06/20/2023 (Approximate), Expires: 06/19/2024 XR hysterosalpingogram Imaging Routine Fallopian tube disorder Expected: 06/20/2023 (Approximate), Expires: 06/19/2024 documented as of this encounter Visit Diagnoses Diagnosis Female infertility Female infertility of unspecified origin Fallopian tube disorder Unspecified noninflammatory disorder of ovary, fallopian tube, and broad ligament documented in this encounter Care Teams Edging Catcher Relationship Specialty Start Date End Date Tim Rolon DO [address] [place] [id number] PCP - General Internal Medicine 08/08/22 documented as of this encounter
--- OUTSIDE RECORDS SUMMARY | 2024-07-28 09:55 | XMS_ITS | CCD ---
Author Organization [facility] CliniSyid Care Team Providers Care Janitorial Services Supervisor Name Role Phone JAMIL SMITH Referring Unavailable [...] Tim Rolon DO Primary Care Provider Raoul MED AIDE-SLATE ROOFER HELPER, Crystal G Unavailable Tim Rolon MD Primary Care Provider DONOVAN BURKS Attending Unavailable Raoul MED AIDE-SLATE ROOFER HELPER, Crystal G Unavailable CORI HERNÁNDEZ Attending Unavailable TIM ROLON Primary Care Unavailable SELF, SELF Referring Unavailable TIM ROLON Referring Unavailable TIM ROLON Primary Care Unavailable CORI HERNÁNDEZ Attending Unavailable Tim Rolon MD Primary Care Provider Tim Rolon DO Primary Care Provider DONOVAN BURKS Attending Unavailable MADONNA PARSONS Attending Unavailable DONOVAN BURKS Attending Unavailable Donovan Burks DO Attending Provider Donovan Burks Attending Unavailable Donovan Burks Admitting Unavailable Allergies Allergy Classification Reported Allergen(s) Allergy Type Date of Onset Reaction(s) Facility (11 sources) Seasonal allergy Propensity to adverse reactions to drug 7 Runny Nose, Congestion [facility] Work Phone: (12 sources) Pollen Propensity to adverse reactions 7 Runny nose [facility] (12 sources) Other Propensity to adverse reactions 2 [...] mg / cholecalciferol 500 unt oral capsule (13 sources) Vitamin D Start: 2023 Calcium Carb-Cholecalciferol [...] Active clomiPHENE citrate 50 mg oral tablet (5 sources) Estrogen Agonist/Antagonist Start: 07-13-2024 Clomid 50 MG tablet Indications: Anovulation TAKE 2 TABLETS BY MOUTH ON DAYS 3-7 OF CYCLE 10 tablet 07/13/2024 Active Start: 01-29-2024 Clomid 50 MG t ablet Indications: Female infertility , Anovulation TAKE 1 TABLET BY MOUTH DAILY FOR 5 DAYS ON DAYS 3-7 OF CYCLE 5 tablet 01/29/2024 Active docosahexaenoic acid 200 mg oral capsule (3 sources) Start: 07-07-2023 Docosahexaenoic Acid ( Dha) 200 mg capsule Active MG PO July 07, 2023 12:00am doxycycline monohydrate 100 mg oral tablet (2 sources) Tetracycline-cl ass Drug Start: 09-24-2023 take 1 tablet by mouth twice daily Doxycycline Monohydrate 100 mg tablet Active 100 MG PO Twice daily 27 12September 24, 2023 12:00am escitalopram 20 mg oral tablet (11 sources) Serotonin Reuptake Inhibitor Start: 04-30-2021 take 1 tablet by mouth once daily at dinner escitalopram 20 MG tablet Indications: Seizure disorder Take 1 tablet by mouth Daily (with dinner). 30 tablet 11 04/30/2021 Active folic acid 1 mg oral tablet (20 sources) Start: 07-07-2023 take 1 tablet by mouth every week Folic Acid 1 mg tablet Active 1 MG PO every week July 07, 2023 12:00am Start: 04-30-2021 End: 06-16-2023 take 1 tablet by mouth once daily at dinner Folic acid 1 MG tablet Indications: Epilepsy, unspecified, not intractable, without status epilepticus take 1 tablet by mouth every day with dinner 90 tablet 3 06/16/2023 Active L.Ac,Bul,Par,Rha-B.Ani,Mehran-I nu (Probiotic Digest Supp (6-Strn)) 10 billion cell -100 mg capsule (3 sources) Start: 07-07-2023 L.Ac,Bul,Par,Rha-B.Ani,Mehran-I nu (Probiotic Digest [...] 7 tablet 08/21/2023 Active Start: 07-07-2023 take 2 tablets by mo uth once daily Lamotrigine 150 mg tablet Active 300 MG PO Daily July 07, 2023 12:00am Start: 07-07-2023 take 300 mg by mouth [...] 10/21/2022 Active letrozole 2.5 mg oral tablet (11 sources) Aromatase Inhibitor Start: 07-07-2023 take 7.5 [...] take 1 tablet by mouth once daily as needed Letrozole 2.5 mg tablet Active 7.5 MG PO Daily as needed July 07, 2023 12:00am loratadine 10 mg oral tablet (20 sources) take 1 tablet by mouth every twenty-four hours as needed loratadine (Claritin) 10 MG tablet Take 10 mg by mouth Daily as needed Active 12 hr loratadine 5 mg / pseudoephedrine sulfate 120 mg extended release oral tablet (12 sources) alpha-Adrenergic Agonist take 1 tablet by mouth once in the morning, then take 1 tablet by mouth every twelve hours at bedtime loratadine-pseudo ephedrine ER (Claritin-D 12-hour) 5-120 MG 12 hr tablet Take 1 tablet by mouth in the morning and 1 tablet before bedtime. Do not crush, chew, or split. . Active LORazepam 0.5 mg oral tablet (20 sources) Benzodiazepine Start: take 1 tablet by mouth once daily as needed Lorazepam 0.5 mg tablet Active 0.5 MG PO Daily as needed July 07, 2023 12:00am Start: 03-22-2022 End: [...] Take 1,000 mg by mouth daily. Active Magnesium Glycinate 100 mg magnesium capsule (1 source) Start: 07-07-2023 Magnesium Glycinate 100 mg magnesium capsule Active MG PO July 07, 2023 12:00am magnesium oxide 400 mg oral tablet (2 sources) Start: 03-28-2023 End: 07-26-2023 take 1 tablet by mouth in the morning magnesium oxide (Mag-Ox) 400 MG tablet Indications: Other migraine without status migrainosus, not intractable (CMS/HCC) Take 1 tablet (400 mg) by mouth in the morning. 30 tablet 3 03/28/2023 07/26/2023 Active medroxyPROGESTERone acetate 10 mg oral tablet (13 sources) Progestin Start: 07-07-2023 End: 07-07-2023 take 1 tablet by mouth once daily as needed Medroxyprogesterone 10 mg tablet Active 10 MG PO Daily as needed July 07, 2023 2:44pm melatonin 3 mg oral tablet (17 sources) Start: 07-07-2023 take 1 tablet by mouth once daily at bedtime as needed Melatonin 3 mg tablet Active 3 MG PO Daily at bedtime as needed July 07, 2023 12:00am Start: 03-22-2022 End: 02-14-2023 take 1 tablet by mouth once daily at bedtime Melatonin 3 MG tablet Indications: Difficulty falling asleep at night until strategic accounts manager hours TAKE 1 TABLET BY MOUTH [...] tablet 3 05/24/2024 Active Start: 07-07-2023 take 1 tablet by josh th once daily Metformin 500 mg tablet Active 500 MG PO Daily July 07, [...] Vitamins-Minerals ( CULTURELLE PROBIOTICS + MULTIV PO) (12 sources) Multiple Vitamin s-Minerals (CULTURELLE PROBIOTICS + MULTIV PO) Take by mouth Active Multiple Vitamin s-Minerals (CULTURELLE PROBIOTICS + MULTIV PO) Take by mouth 0 Active Prenat MV-Min w/Ej-Hfcqvr-DL A ( COMPLETE PO) (8 sources) take 1 tablet by josh th once at bedtime Prenat MV-Min w/Bs-Uxskjp-MTN ( COMPLETE PO) Take 1 tablet by mouth at bedtime. Active take 1 tablet by mouth once at b edtime Prenat MV-Min w/Bc-Bpkvcg-EHP ( COMPLETE PO) Take 1 tablet by mouth at bedtime. 0 Active MV-Min-Fe Fum-FA-DH A ( 1 PO) (12 sources) MV-Min- Fe Fum-FA-DHA ( 1 PO) [...] 07-07-2023 take 1 tablet by josh th once daily Sertraline 100 mg tablet Active 100 MG PO Daily July 07, [...] mg / clavulanate 125 mg oral tablet (5 sources) Penicillin-class Antibacterial Start: 07-07-2023 End: 09-24-2023 take 1 tablet by mouth twice daily Amoxicillin-Pot Clavulanate 875-125 mg tablet Discontinued 1 TAB PO Twice daily 14 [...] SYNDROME] Onset: 05-23-2022 Chronic Other endocrine disorders (12 sources) Polycystic ovary syndrome; Translations: [Polycystic ovarian syndrome] Onset: 12-10-2022 12-10-2022 Chronic Other nutritional; endocrine; and metabolic disorders (11 sources) Obese class II; Translations: [Obesity, unspecified] Onset: 10-28-2019 10-28-2019 Chronic Other skin disorders (2 sources) Skin tag; Translations: [Other hypertrophic disorders of the skin] 07-20-2024 Episodic Other upper respiratory infections (6 sources) Maxillary sinusitis; Translations: [Chronic maxillary sinusitis] [...] Test Name Value Interpretation Reference Range Facility PATHOLOGY REQUEST FOR LAB CO RPon 07-27-2024 PATHOLOGY REQUEST FOR LAB HELGA [facility] Comment on above: See report. Scanned copy available in EMR. SKIN TAG [facility] Pathology Request for Lab Co rpon 07-20-2024 Pathology Request for Lab Helga Normal [facility] Comment on above: Order Comment: SKIN TAG Result Comment: See report. Scanned copy available in EMR. PERFORMED BY: [place] [address] PATHOLOGIST WAREHOUSE HANDLER SAM MARTIN M.D. Performed By: #### P ATH TO [facility] #### [address] ALL PROGESTERONEon PROGESTERONE 32.1 ng/mL . [facility] Comment on above: Follicular phase 0.1 - 0.9 Luteal phase 1.8 - 23.9 Ovulation phase 0.1 - 12.0 First trimester 11.0 - 44.3 Second trimester 25.4 - 83.3 Third trimester 58.7 - 214.0 Postmenopausal 0.0 - 0.1 Performed at: - [facility] [address] [id number] Fourth Mate: Ino Dougherty PhD, Phone: [phone] [facility] [place] Estimated glomerular filtrat ion rate (GFR) non- Americanon 06-28-2024 GFR/1.73 sq M.predicted among non-blacks MDRD (S/P/Bld) [Vol rate/Area] Estimated glomerular filtration rate (GFR) non- >=60 mL/min/1.73m 2 [facility] Globulin Calc (S) [Mass/Vol] on 06-28-2024 Globulin (S) [Mass/Vol] Serum globulin measurement by calculation (mass/volume) [facility] Laboratory - Chemistry and C hemistry - challengeon 06-28-2024 Albumin [Mass/Vol] 4.0 g/dL 3.4-5.0 [facility] ALP [Catalytic activity/Vol] 43 U/L Low 46-116 [facility] ALT [Catalytic activity/Vol] 18 U/L 14-59 [facility] AST [Catalytic activity/Vol] 14 U/L Low 15-37 [facility] Bilirubin [Mass/Vol] 0.2 mg/dL 0.2-1.0 [facility] Calcium [Mass/Vol] 9.3 mg/dL 8.5-10.1 [facility] Chloride [Moles/Vol] 103 mmol/L 98-107 [facility] CO2 [Moles/Vol] 26.9 mmol/L 21.0-32.[address] [facility] Creatinine [Mass/Vol] 0.63 mg/dL 0.55-1.02 [facility] GFR/1.73 sq M.predicted MDRD (S/P/Bld) [Vol rate/Area] mL/min/{1.73_m2} >=60 mL/min/1.73m 2 [facility] Glucose [Mass/Vol] 89 mg/dL 74-106 [facility] Potassium [Moles/Vol] 4.4 mmol/L 3.5-5.1 [facility] Protein [Mass/Vol] 7.4 g/dL 6.4-8.2 [facility] Sodium [Moles/Vol] 138 mmol/L 136-145 [facility] Urea nitrogen [Mass/Vol] 13.0 mg/dL 7.0-18.0 [facility] Urea nitrogen/Creatinine [Mass ratio] 20.6 mg/mg [facility] No Panel Informationon 06-28 Lamotrigine (Lamictal) Level 4.8 ug/mL 2.0-20.0 [facility] Comment on above: Detection Limit = 1. 0Performed at: BN - [facility] [address] [id number] Director: Tana Gonzalez MD, Phone: [phone] Serum or plasma albumin/glob ulin mass ratioon 06-28-2024 Albumin/Globulin [Mass ratio] Serum or plasma albumin/globulin mass ratio [facility] Serum or plasma anion gap de terminationon 06-28-2024 Anion gap [Moles/Vol] Serum or plasma anion gap determination [facility] Serum or plasma progesterone measurement (mass/volume)on 06-28-2024 Progesterone [Mass/Vol] Serum or plasma progesterone measurement (mass/volume) . [facility] Comment on above: Follicular phase 0.1 - 0.9 Luteal phase 1.8 - 23.9 Ovulation phase 0.1 - 12.0 First trimester 11.0 - 44.3 Second trimester 25.4 - 83.3 Third trimester 58.7 - 214.0 Postmenopausal 0.0 - 0.1Performed at: [facility] [place] [id number] Director: Ino Dougherty PhD, Phone: [phone] ALL PROGESTERONEon 5 PROGESTERONE 17.1 ng/mL . [facility] Comment on above: Follicular phase 0.1 - 0.9 Luteal phase 1.8 - 23.9 Ovulation phase 0.1 - 12.0 First trimester 11.0 - 44.3 Second trimester 25.4 - 83.3 Third trimester 58.7 - 214.0 Postmenopausal 0.0 - 0.1 Performed at: [facility] [address] [place] [id number] Fourth Mate: Ino Dougherty PhD, Phone: [phone] [facility] [place] Serum or plasma progesterone measurement (mass/volume)on 05-26-2024 Progesterone [Mass/Vol] Serum or plasma progesterone measurement (mass/volume) . [facility] Comment on above: Follicular phase 0.1 - 0.9 Luteal phase 1.8 - 23.9 Ovulation phase 0.1 - 12.0 First trimester 11.0 - 44.3 Second trimester 25.4 - 83.3 Third trimester 58.7 - 214.0 Postmenopausal 0.0 - 0.1Performed at: [facility] [place], [place] [id number] Director: Ino Dougherty PhD, Phone: [phone] ALL PROGESTERONEon 202 4 PROGESTERONE 21.2 ng/mL . [facility] Comment on above: Follicular phase 0.1 - 0.9 Luteal phase 1.8 - 23.9 Ovulation phase 0.1 - 12.0 First trimester 11.0 - 44.3 Second trimester 25.4 - 83.3 Third trimester 58.7 - 214.0 Postmenopausal 0.0 - 0.1 Performed at: [address] [id number] Fourth Mate: Ino Dougherty PhD, Phone: [phone] [facility] ALL PROGESTERONEon 4 PROGESTERONE 25.4 ng/mL . [facility] Comment on above: Follicular phase 0.1 - 0.9 Luteal phase 1.8 - 23.9 Ovulation phase 0.1 - 12.0 First trimester 11.0 - 44.3 Second trimester 25.4 - 83.3 Third trimester 58.7 - 214.0 Postmenopausal 0.0 - 0.1 Performed at: [address] [id number] Fourth Mate: Ino Dougherty PhD, Phone: [phone] [facility] ALL PROGESTERONEon 4 PROGESTERONE 19.7 ng/mL . [facility] Comment on above: Follicular phase 0.1 - 0.9 Luteal phase 1.8 - 23.9 Ovulation phase 0.1 - 12.0 First trimester 11.0 - 44.3 Second trimester 25.4 - 83.3 Third trimester 58.7 - 214.0 Postmenopausal 0.0 - 0.1 Performed at: [address] [id number] Fourth Mate: Ino Dougherty PhD, Phone: [phone] [facility] ALL PROGESTERONEon 4 PROGESTERONE 20.0 ng/mL . [facility] Comment on above: Follicular phase 0.1 - 0.9 Luteal phase 1.8 - 23.9 Ovulation phase 0.1 - 12.0 First trimester 11.0 - 44.3 Second trimester 25.4 - 83.3 Third trimester 58.7 - 214.0 Postmenopausal 0.0 - 0.1 Performed at: [address] [id number] Fourth Mate: Ino Dougherty PhD, Phone: [phone] [facility] Serum or plasma progesterone measurement (mass/volume)on 09-11-2023 Progesterone [Mass/Vol] 12.9 ng/mL . [facility] Comment on above: Follicular phase 0.1 - 0.9 Luteal phase 1.8 - 23.9 Ovulation phase 0.1 - 12.0 First trimester 11.0 - 44.3 Second trimester 25.4 - 83.3 Third trimester 58.7 - 214.0 Postmenopausal 0.0 - 0.1Performed at: [employer] [address] [place], [place] [id number] Director: Ino Dougherty PhD, Phone: [phone] Serum or plasma progesterone measurement (mass/volume)on 08-08-2023 Progesterone [Mass/Vol] 11.3 ng/mL . [facility] Comment on above: Follicular phase 0.1 - 0.9 Luteal phase 1.8 - 23.9 Ovulation phase 0.1 - 12.0 First trimester 11.0 - 44.3 Second trimester 25.4 - 83.3 Third trimester 58.7 - 214.0 Postmenopausal 0.0 - 0.1Performed at: [employer] [place] [place], [place] [id number] Director: Ino Dougherty PhD, Phone: [phone] Serum or plasma progesterone measurement (mass/volume)on 07-09-2023 Progesterone [Mass/Vol] 16.6 ng/mL . [facility] Comment on above: Follicular phase 0.1 - 0.9 Luteal phase 1.8 - 23.9 Ovulation phase 0.1 - 12.0 First trimester 11.0 - 44.3 Second trimester 25.4 - 83.3 Third trimester 58.7 - 214.0 Postmenopausal 0.0 - 0.1Performed at: [facility] [address] [place], [place] [id number] Director: Ino Dougherty PhD, Phone: [phone] No Panel Informationon 06-26 Human Chorionic Gonadotropin, Quant <1 mIU/mL [facility] Comment on above: 5-50 0.2-1 [id number] 0 1-2 TQFNG575-4,000 2-3 JBROQ752-85,000 3-4 WEEKS1,000-50,000 4-5 WEEKS10,000-100,000 5-6 WEEKS15,000-200,000 6-8 WEEKS10,000-100,000 2-3 MONTHS Serum or plasma progesterone measurement (mass/volume)on 06-08-2023 Progesterone [Mass/Vol] 20.7 ng/mL . [facility] Comment on above: Follicular phase 0.1 - 0.9 Luteal phase 1.8 - 23.9 Ovulation phase 0.1 - 12.0 First trimester 11.0 - 44.3 Second trimester 25.4 - 83.3 Third trimester 58.7 - 214.0 Postmenopausal 0.0 - 0.1Performed at: [employer] [place], [place] [id number] Director: Ino Dougherty PhD, Phone: [phone] Laboratory - Chemistry and C hemistry - challengeon 05-09-2023 Free T4 [Mass/Vol] 0.77 ng/dL 0.76-1.46 [facility] No Panel Informationon 05-08 Free Triiodothyronine 2.78 pg/mL 2.18-3.98 [facility] Serum or plasma progesterone measurement (mass/volume)on 05-09-2023 Progesterone [Mass/Vol] 19.3 ng/mL . [facility] Comment on above: Follicular phase 0.1 - 0.9 Luteal phase 1.8 - 23.9 Ovulation phase 0.1 - 12.0 First trimester 11.0 - 44.3 Second trimester 25.4 - 83.3 Third trimester 58.7 - 214.0 Postmenopausal 0.0 - 0.1Performed at: [facility] [address] [place], [place] [id number] Director: Ino Dougherty PhD, Phone: [phone] BETA HCG, URINE (POC DEVICE) on 01-15-2023 Beta HCG ( test) Ql (U) Negative Negative [facility] Interpretation and review of laboratory results Normal [facility] Test performed at address of the patient encounter. [facility] CARDIAC RHYTHM (SCANNED)on 03-17-2022 [facility] CBC AND ELECTRONIC DIFFon Basophils (Bld) [#/Vol] 0.05 10*3/uL 0.00 - 0.15 K/uL [facility] Basophils/100 WBC (Bld) 0.5 % O [facility] Differential cell count method Nom (Bld) Electronic Differential [facility] Eosinophils (Bld) [#/Vol] 0.12 10*3/uL 0. 00 - 0.42 K/uL [facility] Eosinophils/100 WBC (Bld) 1.2 % [facility] Erythrocyte distribution width (RBC) [Ratio] 13.1 % 10.8 - 14.9 % [facility] Hematocrit (Bld) [Volume fraction] 42.5 % 34.9 - 44.3 % [facility] Hemoglobin (Bld) [Mass/Vol] 14.3 g/dL 11.4 - 15.2 g/dL [facility] Immature granulocytes (Bld) [#/Vol] K/uL NINF - 0.08 K/uL [facility] Immature granulocytes/100 WBC (Bld) 0.3 % [facility] Lymphocytes (Bld) [#/Vol] 3.42 10*3/uL 1. 16 - 3.51 K/uL [facility] Lymphocytes/100 WBC (Bld) 32.9 % [facility] MCH (RBC) [Entitic mass] 31.1 pg 25. 9 - 33.9 pg [facility] MCHC (RBC) [Mass/Vol] 33.6 g/dL 31.4 - 35.9 g/dL [facility] MCV (RBC) [Entitic vol] 92.4 fL 79.6 - 97.7 fL [facility] Monocytes (Bld) [#/Vol] 0.62 10*3/uL 0.22 - 0.87 K/uL [facility] Monocytes/100 WBC (Bld) 6.0 % [facility] Neutrophils (Bld) [#/Vol] 6.14 10*3/uL 1. 64 - 7.28 K/uL [facility] Nucleated RBC/100 WBC (Bld) [Ratio] 0.0 % [facility] Platelet mean volume (Bld) [Entitic vol] 10.8 fL 8.5 - 12.2 fL [facility] Platelets (Bld) [#/Vol] 326 10*3/uL 150 - 393 K/uL [facility] RBC (Bld) [#/Vol] 4.60 10*6/uL [facility] Segmented neutrophils/100 WBC (Bld) 59.1 % [facility] WBC (Bld) [#/Vol] 10.38 10*3/uL 3.99 - 11 .19 K/uL [facility] HCG ( test) Ql (U)O rdered By: Jamil Santos on 01-09-2023 Beta HCG ( test) Ql Negative Negative [facility] Interpretation and review of laboratory results Normal [facility] PT,INR,PTTon 01-09-2023 aPTT Coag (PPP) [Time] 31.1 s [facility] INR Coag (Bld) [Relative time] 1.0 {INR} 0.9 - 1.1 [facility] Interpretation and review of laboratory results Normal [facility] PT Coag (PPP) [Time] 13.0 s [facility] SCREEN: MRSA/MSSAOrdered By: Alexandra Slater on 01-09-2023 Interpretation and review of laboratory results Abnormal [facility] Methicillin Resistant S. Aureus By Pcr Negative Negative [facility] Staphylococcus Aureus By Pcr Positive Abnormal Negative [facility] This test was performed using [...] by the Clinical Microbiology Laboratory at The . It has not been cleared or approved by the FDA.The laboratory is regulated under CLIA as qualified to perform high-complexity testing. This test is used for clinical purposes. It should not be regarded as investigational or for research. [facility] XR Cervical and thoracic and lumbar spine [...] IMPRESSION: Intact vagus nerve stimulator as described. [facility] Radiology Study observation (narrative) [facility] Cervical and thoracic and lumbar spine ViewsOrdered By: Alice Crespo on 01-09-2023 [facility] Work Phone: PROGESTERONEon 05-24-2022 Progesterone 5.5 ng/mL Normal [facility] Comment on above: Result Comment: Foll icular phase 0.1 - 0.9 Luteal phase 1.8 - 23.9 Ovulation phase 0.1 - 12.0 First trimester 11.0 - 44.3 Second trimester 25.4 - 83.3 Third trimester 58.7 - 214.0 Postmenopausal 0.0 - 0.1 Performed By: #### P DANIEL #### [facility] [address] [place] [address] Dr. Nicol Oswald LAMOTRIGINEon 05-02-2022 Lamotrigine, Serum 4.7 ug/mL Normal 2.0-20.0 [facility] Comment on above: Result Comment: Dete ction Limit = 1.0 Performed By: #### P DANIEL #### [facility] [address] [place] [address] Dr. Nicol Oswald CBC AUTO DIFFon 04-30-2022 BASO # 0.0 103/ul Normal 0.0-0.1 [facility] Comment on above: Performed By: #### C BC #### [facility] [address] [place] [address] Dr. Nicol Oswald Basophils/100 WBC (Bld) 0.4 % Normal 0.2-2.0 [facility] Comment on above: Performed By: #### C BC #### [facility] [address] [place] [address] Dr. Nicol Oswald EO # 0.2 103/ul Normal 0.0-0.7 [facility] Comment on above: Performed By: #### C BC #### [facility] [address] [place] [address] Dr. Nicol Oswald Eosinophils/100 WBC (Bld) 1.9 % Normal 0.9-7.0 [facility] Comment on above: Performed By: #### C BC #### [facility] [address] [place] [address] Dr. Nicol Oswald Erythrocyte distribution width (RBC) [Ratio] 12.8 % Normal 11.0-15.0 [facility] Comment on above: Performed By: #### C BC #### [facility] [address] [place] [address] Dr. Nicol Oswald Hematocrit (Bld) [Volume fraction] 40.4 % Normal 36.0-48.0 [facility] Comment on above: Performed By: #### C BC #### [facility] [address] [place] [address] Dr. Nicol Oswald Hemoglobin (Bld) [Mass/Vol] 13.6 g/dL Normal 12.0-16.0 [facility] Comment on above: Performed By: #### C BC #### [facility] [address] [place] [address] Dr. Nicol Oswald IG # 0.03 10e3/ul Normal 0.00-0.03 [facility] Comment on above: Performed By: #### C BC #### [facility] [address] [place] [address] Dr. Nicol Oswald IG % 0.4 % Normal 0.0-0.5 [facility] Comment on above: Performed By: #### C BC #### [facility] [address] [place] [address] Dr. Nicol Oswald LYMPH # 3.1 103/ul Normal 1.2-3.8 [facility] Comment on above: Performed By: #### C BC #### [facility] [address] [place] [address] Dr. Nicol Oswald Lymphocytes/100 WBC (Bld) 36.4 % Normal 20.5-60.0 [facility] Comment on above: Performed By: #### C BC #### [facility] [address] [place] [address] Dr. Nicol Oswald MANUAL DIFF REQ NO Normal [facility] Comment on above: Performed By: #### C BC #### [facility] [address] [place] [address] Dr. Nicol Oswald MCH (RBC) [Entitic mass] 31.0 pg Normal 26.7-34.0 [facility] Comment on above: Performed By: #### C BC #### [facility] [address] [place] [address] Dr. Nicol Oswald MCHC (RBC) [Mass/Vol] 33.7 g/dL Normal 29.9-35.2 [facility] Comment on above: Performed By: #### C BC #### [facility] Laboratory [address] [address] [address] Nicol Oswald MCV (RBC) [Entitic vol] 92.0 fL Normal 81.0-99.0 [facility] Comment on above: Performed By: #### C BC #### [facility] [address] [place] [address] Dr. Nicol Oswald MONO # 0.7 103/ul Normal 0.3-0.8 [facility] Comment on above: Performed By: #### C BC #### [facility] [address] [place] [address] Dr. Nicol Oswald Monocytes/100 WBC (Bld) 7.7 % Normal 1.7-12.0 [facility] Comment on above: Performed By: #### C BC #### [facility] [address] [place] [address] Dr. Nicol Oswald NEUT # 4.5 103/ul Normal 1.4-6.5 [facility] Comment on above: Performed By: #### C BC #### [facility] [address] [place] [address] Dr. Nicol Oswald Neutrophils/100 WBC (Bld) 53.2 % Normal 43.0-75.0 [facility] Comment on above: Performed By: #### C BC #### [facility] [address] [place] [address] Dr. Nicol Oswald Platelet mean volume (Bld) [Entitic vol] 11.0 fL Normal 9.5-13.5 [facility] Comment on above: Performed By: #### C BC #### [facility] [address] [place] [address] Dr. Nicol Oswald PLT 282 103/ul Normal 150-450 [facility] Comment on above: Performed By: #### C BC #### [facility] [address] [place] [address] Dr. Nicol Oswald RBC 4.39 106/ul Normal 4.20-5.40 [facility] Comment on above: Performed By: #### C BC #### [facility] [address] [place] [address] Dr. Nicol Oswald WBC 8.4 103/ul Normal 4.0-11.0 [facility] Comment on above: Performed By: #### C BC #### [facility] [address] [place] [address] Dr. Nicol Oswald LIVER PROFILEon 04-30-2022 Albumin [Mass/Vol] 4.1 g/dL Normal 3.4-5.0 [facility] Comment on above: Performed By: #### P DANIEL #### [facility] [address] [place] [address] Dr. Nicol Oswald Albumin/Globulin [Mass ratio] 1.2 {ratio} Normal [facility] Comment on above: Performed By: #### P DANIEL #### [facility] [address] [place] [address] Dr. Nicol Oswald ALP [Catalytic activity/Vol] 52 U/L Normal 46-116 [facility] Comment on above: Performed By: #### P DANIEL #### [facility] [address] [place] [address] Dr. Nicol Oswald ALT [Catalytic activity/Vol] 23 U/L Normal 14-59 [facility] Comment on above: Performed By: #### P DANIEL #### [facility] [address] [place] [address] Dr. Nicol Oswald AST [Catalytic activity/Vol] 17 U/L Normal 15-37 [facility] Comment on above: Performed By: #### P DANIEL #### [facility] [address] [place] [address] Dr. Nicol Oswald BILI, CONJUGATED 0.1 mg/dL Normal 0.0-0.2 [facility] Comment on above: Performed By: #### P DANIEL #### [facility] [address] [place] [address] Dr. Nicol Oswald Bilirubin [Mass/Vol] 0.2 mg/dL Normal 0.2-1.0 [facility] Comment on above: Performed By: #### P DANIEL #### [facility] [address] [address] [address] Nicol Oswald Globulin (S) [Mass/Vol] 3.4 g/dL Normal T [facility] Comment on above: Performed By: #### P JASONES #### [facility] [address] [place] [address] Dr. Nicol Oswald Protein [Mass/Vol] 7.5 g/dL Normal 6.4-8.2 [facility] Comment on above: Performed By: #### P ROGES #### [facility] [address] [place] [address] Dr. Nicol Oswald PROF CHEM 8 (BAS METB)on Anion gap [Moles/Vol] 8.5 mmol/L Normal [facility] Comment on above: Performed By: #### P DANIEL #### [facility] [address] [place] [address] Dr. Nicol Oswald Calcium [Mass/Vol] 9.4 mg/dL Normal 8.5-10.1 [facility] Comment on above: Performed By: #### P DANIEL #### [facility] [address] [place] [address] Dr. Nicol Oswald Chloride [Moles/Vol] 102 mmol/L Normal 98-107 [facility] Comment on above: Performed By: #### P DANIEL #### [facility] [address] [place] [address] Dr. Nicol Oswald CO2 [Moles/Vol] 30.4 mmol/L Normal 21.0-32.0 [facility] Comment on above: Performed By: #### P JASONES #### [facility] [address] [place] [address] Dr. Nicol Oswald Creatinine [Mass/Vol] 0.57 mg/dL Normal 0.55-1.02 [facility] Comment on above: Performed By: #### P ROGES #### [facility] [address] [place] [address] Dr. Nicol Oswald EGFR-AF AUSTRALIAN >60 Normal >=60 [facility] Comment on above: Performed By: #### P DANIEL #### [facility] [address] [address] [address] Nicol Oswald EGFR-NON AF AUSTRALIAN >60 Normal >=60 [facility] Comment on above: Performed By: #### P DANIEL #### [facility] [address] [address] [address] Nicol Oswald Glucose [Mass/Vol] 89 mg/dL Normal 74-106 [facility] Comment on above: Performed By: #### P DANIEL #### [facility] [address] [address] [address] Nicol Oswald Potassium [Moles/Vol] 3.9 mmol/L Normal 3.5-5.1 [facility] Comment on above: Performed By: #### P DANIEL #### [facility] [address] [address] [address] Nicol Oswald Sodium [Moles/Vol] 137 mmol/L Normal 136-145 [facility] Comment on above: Performed By: #### P DANIEL #### [facility] [address] [address] [address] Nicol Oswald Urea nitrogen [Mass/Vol] 10.0 mg/dL Normal 7.0-18.0 [facility] Comment on above: Performed By: #### P ADNIEL #### [facility] [address] [address] [address] Nicol Oswald Urea nitrogen/Creatinine [Mass ratio] 17.5 mg/mg Normal [facility] Comment on above: Performed By: #### P DANIEL #### [facility] [address] [address] [address] Nicol Oswald ESTROGENon 04-19-2022 Estrogens, Total 124 pg/mL Normal [facility] Comment on above: Result Comment: Prep ubertal < 40 Female Cycle: 1-10 Days 16 - 328 11-20 Days 34 - 501 21-30 Days 48 - 350 Post-Menopausal 40 - 244 Performed By: #### E KYLIE #### [facility] [address] [address] [address] Nicol Oswald DHEA SERUMon 04-18-2022 Dehydroepiandrosterone (DHEA) 371 ng/dL Normal 31-701 [facility] Comment on above: Result Comment: Age [...] 89 Performed By: #### P DANIEL #### [facility] [address] [place], [place] [address] Dr. Nicol Oswald DHEA-SULFATEon 04-16-2022 DHEA-Sulfate 371.0 ug/dL Normal 84.8-378.0 [facility] Comment on above: Performed By: #### P DANIEL #### [facility] [address] [place] [address] Dr. Nicol Oswald FSHon 04-16-2022 FSH 5.6 mIU/mL Normal [facility] Comment on above: Result Comment: Adul t Female: Follicular phase 3.5 - 12.5 Ovulation phase 4.7 - 21.5 Luteal phase 1.7 - 7.7 Postmenopausal 25.8 - 134.8 Performed By: #### P DANIEL #### [facility] [address] [place] [address] Dr. Nicol Oswald LUTEINIZING HORMONE (LH)on 0 04-16-2022 LH 12.9 mIU/mL Normal [facility] Comment on above: Result Comment: Adul t Female: Follicular phase 2.4 - 12.6 Ovulation phase 14.0 - 95.6 Luteal phase 1.0 - 11.4 Postmenopausal 7.7 - 58.5 Performed By: #### P DANIEL #### [facility] [address] [place] [address] Dr. Nicol Oswald PROGESTERONEon 04-16-2022 Progesterone 0.2 ng/mL Normal [facility] Comment on above: Result Comment: Foll icular phase 0.1 - 0.9 Luteal phase 1.8 - 23.9 Ovulation phase 0.1 - 12.0 First trimester 11.0 - 44.3 Second trimester 25.4 - 83.3 Third trimester 58.7 - 214.0 Postmenopausal 0.0 - 0.1 Performed By: #### P DANIEL #### [facility] [address] [address] [address] Nicol Oswald PROLACTINon 04-16-2022 Prolactin 7.1 ng/mL Normal 4.8-23.3 [facility] Comment on above: Performed By: #### P ROLAC #### [facility] [address] [address] [address] Nicol Oswald US PELVIS AND TRANSVAGon [...] by: CYDNEY VALDEZ Date: 2022-04-16 08:48 Normal [facility] CBC AUTO DIFFon 04-15-2022 BASO # 0.0 103/ul Normal 0.0-0.1 [facility] Comment on above: Performed By: #### C BC #### [facility] [address] [address] [address] Nicol Oswald Basophils/100 WBC (Bld) 0.5 % Normal 0.2-2.0 [facility] Comment on above: Performed By: #### C BC #### [facility] [address] [address] [address] Nicol Oswald EO # 0.2 103/ul Normal 0.0-0.7 [facility] Comment on above: Performed By: #### C BC #### [facility] [address] [place] [address] Dr. Nicol Oswald Eosinophils/100 WBC (Bld) 2.1 % Normal 0.9-7.0 [facility] Comment on above: Performed By: #### C BC #### [facility] [address] [place] [address] Dr. Nicol Oswald Erythrocyte distribution width (RBC) [Ratio] 12.5 % Normal 11.0-15.0 [facility] Comment on above: Performed By: #### C BC #### [facility] [address] [place] [address] Dr. Nicol Oswald Hematocrit (Bld) [Volume fraction] 44.7 % Normal 36.0-48.0 [facility] Comment on above: Performed By: #### C BC #### [facility] [address] [place] [address] Dr. Nicol Oswald Hemoglobin (Bld) [Mass/Vol] 14.3 g/dL Normal 12.0-16.0 [facility] Comment on above: Performed By: #### C BC #### [facility] [address] [place] [address] Dr. Nicol Oswald IG # 0.01 10e3/ul Normal 0.00-0.03 [facility] Comment on above: Performed By: #### C BC #### [facility] [address] [place] [address] Dr. Nicol Oswald IG % 0.1 % Normal 0.0-0.5 [facility] Comment on above: Performed By: #### C BC #### [facility] [address] [place] [address] Dr. Nicol Oswald LYMPH # 2.0 103/ul Normal 1.2-3.8 [facility] Comment on above: Performed By: #### C BC #### [facility] [address] [place] [address] Dr. Nicol Oswald Lymphocytes/100 WBC (Bld) 26.0 % Normal 20.5-60.0 [facility] Comment on above: Performed By: #### C BC #### [facility] [address] [place] [address] Dr. Nicol Oswald MANUAL DIFF REQ NO Normal [facility] Comment on above: Performed By: #### C BC #### [facility] [address] [place] [address] Dr. Nicol Oswald MCH (RBC) [Entitic mass] 30.8 pg Normal 26.7-34.0 [facility] Comment on above: Performed By: #### C BC #### [facility] [address] [place] [address] Dr. Nicol Oswald MCHC (RBC) [Mass/Vol] 32.0 g/dL Normal 29.9-35.2 [facility] Comment on above: Performed By: #### C BC #### [facility] [address] [place] [address] Dr. Nicol Oswald MCV (RBC) [Entitic vol] 96.3 fL Normal 81.0-99.0 [facility] Comment on above: Performed By: #### C BC #### [facility] [address] [place] [address] Dr. Nicol Oswald MONO # 0.6 103/ul Normal 0.3-0.8 [facility] Comment on above: Performed By: #### C BC #### [facility] [address] [place] [address] Dr. Nicol Oswald Monocytes/100 WBC (Bld) 7.3 % Normal 1.7-12.0 [facility] Comment on above: Performed By: #### C BC #### [facility] [address] [place] [address] Dr. Nicol Oswald NEUT # 4.9 103/ul Normal 1.4-6.5 [facility] Comment on above: Performed By: #### C BC #### [facility] [address] [place] [address] Dr. Nicol Oswald Neutrophils/100 WBC (Bld) 64.0 % Normal 43.0-75.0 [facility] Comment on above: Performed By: #### C BC #### [facility] [address] [address] [address] Nicol Oswald Platelet mean volume (Bld) [Entitic vol] 11.3 fL Normal 9.5-13.5 [facility] Comment on above: Performed By: #### C BC #### [facility] [address] [place] [address] Dr. Nicol Oswald PLT 302 103/ul Normal 150-450 [facility] Comment on above: Performed By: #### C BC #### [facility] [address] [place] [address] Dr. Nicol Oswald RBC 4.64 106/ul Normal 4.20-5.40 [facility] Comment on above: Performed By: #### C BC #### [facility] [address] [place] [address] Dr. Nicol Oswald WBC 7.7 103/ul Normal 4.0-11.0 [facility] Comment on above: Performed By: #### C BC #### [facility] [address] [place] [address] Dr. Nicol Oswald FREE T4on 04-15-2022 Free T4 [Mass/Vol] 0.80 ng/dL Normal 0.76-1.46 [facility] Comment on above: Performed By: #### F T4 #### [facility] [address] [place] [address] Dr. Nicol Oswald GLYCOHEMOGLOBIN A1Con 2022 ADA RECOMMENDATION SEE BELOW Normal [facility] Comment on above: Result Comment: ADA RECOMMENDED LIMIT 4.0 - 6.0 ADA THERAPEUTIC TARGET < 7.0 ACTION SUGGESTED > 7.0 Performed By: #### A 1C #### [facility] [address] [place] [address] Dr. Nicol Oswald Glucose [Mass/Vol] 114 mg/dL Normal [facility] Comment on above: Performed By: #### A 1C #### [facility] [address] [place] [address] Dr. Nicol Oswald HbA1c (Bld) [Mass fraction] 5.6 % Normal 4.5-6.2 [facility] Comment on above: Performed By: #### A 1C #### [facility] [address] [place] [address] Dr. Nicol Oswald PREG QUANT HCGon 04-15-2022 HCG QUANT <1 [facility] Comment on above: Performed By: #### P REGQNT, TSH #### [facility] [address] [place] [address] Dr. Nicol Oswald HCG RANGE SEE BELOW [facility] Comment on above: Result Comment: 5-50 0.2-1 WEEK 50-500 1-2 WEEKS 100-5,000 2-3 WEEKS 500-10,000 3-4 WEEKS 1,000-50,000 4-5 WEEKS 10,000-100,000 5-6 WEEKS 15,000-200,000 6-8 WEEKS 10,000-100,000 2-3 MONTHS Performed By: #### P REGHEMALATHA, TSH #### [facility] [address] [place] [address] Dr. Nicol Oswald TSHon 04-15-2022 TSH 1.312 uIU/mL Normal 0.358-3.740 [facility] Comment on above: Performed By: #### P REGHEMALATHA, TSH #### [facility] [address] [place] [address] Dr. Nicol Oswald PAP ACOG PANEL 2: 21 to 29on 08-31-2021 . . Normal [facility] Comment on above: Performed By: #### P DANIEL #### [facility] [address] [place] [address] Dr. Nicol Oswald Age Gdln ACOG Testing - [facility] Comment on above: Performed By: #### P DANIEL #### [facility] [address] [place] [address] Dr. Nicol Oswald DIAGNOSIS: Comment Normal [facility] Comment on above: Result Comment: NEGA TIVE FOR INTRAEPITHELIAL LESION OR MALIGNANCY. THIS SPECIMEN WAS RESCREENED PART OF OUR [employer] PATTERN[employer] PROGRAM. Performed By: #### P DANIEL #### [facility] [address] [place], [place] [address] Dr. Nicol Oswald Methodology: Comment Normal [facility] Comment on above: Result Comment: This liquid based ThinPrep(R) pap test was screened with the use of an image guided system. Performed By: #### P ROGES #### [facility] [address] [place] [address] Dr. Nicol Oswald Note: Comment Normal [facility] Comment on above: Result Comment: The Pap smear is a screening test designed to aid in the detection of premalignant and malignant conditions of the uterine cervix. It is not a diagnostic procedure and should not be used as the sole means of detecting cervical cancer. Both false-positive and false-negative reports do occur. . Performed By: #### P ROGES #### [facility] [address] [place] [address] Dr. Nicol Oswald Performed by: Comment Normal [facility] Comment on above: Result Comment: Mireille Blanco, Bolting Machine Operator (ASCP) Performed By: #### P ROGLYNDA #### [facility] [address] [place] [address] Dr. Nicol Oswald QC reviewed by: Comment Normal [facility] Comment on above: Result Comment: Tahira Roque, Bolting Machine Operator (ASCP) Performed By: #### P ROGES #### [facility] [address] [place] [address] Dr. Nicol Oswald Reflex Criteria: Comment Normal [facility] Comment on above: Result Comment: The HPV DNA reflex criteria were not met with this specimen result therefore, no HPV testing was performed. . Performed By: #### P ROGES #### [facility] [address] [place] [address] Dr. Nicol Oswald Specimen adequacy: Comment Normal [facility] Comment on above: Result Comment: Sati sfactory for evaluation. Endocervical and/or squamous metaplastic cells (endocervical component) are present. Performed By: #### P ROGES #### [facility] [address] [place] [address] Dr. Nicol Oswald CBC Auto Diff Reflex Manualo n 12-12-2019 Automated Absolute Neutrophil 5.73 10*3/mm3 Normal [facility] Comment on above: Result Comment: Auto mated Absolute Neutrophil Count (ANC) is directly measured using a hematology instrument. ANC determined from manual differential cell count may differ. No [facility] reference range has been validated for this assay. Performed By: #### C D #### [place] [address] Basophil 0.5 % Normal 0.0-1.0 [facility] Comment on above: Performed By: #### C D #### [place] [address] Differential Type Automated Normal [facility] Comment on above: Performed By: #### C D #### [place] [address] Eosinophil 1.6 % Normal 1.0-4.0 [facility] Comment on above: Performed By: #### C D #### [place] [address] Erythrocyte distribution width (RBC) [Ratio] 13.4 % Normal 10-14.1 [facility] Comment on above: Performed By: #### C D #### [place] [address] Lymphocyte 22.6 % Low 24.0-44.0 [facility] Comment on above: Performed By: #### C D #### [place] [address] MCH (RBC) [Entitic mass] 30.7 pg Normal 26-34 [facility] Comment on above: Performed By: #### C D #### Performed at [address] [address] MCHC (RBC) [Mass/Vol] 33.2 % Normal 31.0-37.0 [facility] Comment on above: Performed By: #### C D #### Performed at [address] [address] MCV (RBC) [Entitic vol] 92.4 fL Normal 80-100 [facility] Comment on above: Performed By: #### C D #### Performed at [address] [address] Monocyte 8.2 % High 1.0-7.0 [facility] Comment on above: Performed By: #### C D #### [place] [address] Neutrophil 67.1 % Normal 41.0-77.0 [facility] Comment on above: Performed By: #### C D #### [place] [address] Platelet mean volume (Bld) [Entitic vol] 11.5 fL Normal 9.3-13.0 [facility] Comment on above: Performed By: #### C D #### [place] [address] Platelets (Bld) [#/Vol] 268 10*3/uL Normal 140-440 [facility] Comment on above: Performed By: #### C D #### [place] [address] RBC (Bld) [#/Vol] 4.60 10*6/uL Normal 4.0-5.2 [facility] Comment on above: Performed By: #### Ruiz D #### Performed at [address] [address] WBC (Bld) [#/Vol] 8.6 10*3/uL Normal 4.5-11 [facility] Comment on above: Performed By: #### C D #### [place] [address] [facility] 02-18-2019 Albumin [Mass/Vol] 4.7 g/dL Normal 3.4-5.2 [facility] ALP [Catalytic activity/Vol] 47 U/L Low 50-136 [facility] ALT [Catalytic activity/Vol] 32 U/L Normal <40 [facility] AST [Catalytic activity/Vol] 29 U/L Normal 15-50 [facility] Bilirubin Ql (U) 0.2 mg/dL Normal 0.1-1.0 [facility] Calcium [Mass/Vol] 9.8 mg/dL Normal 8-10.5 [facility] Chloride [Moles/Vol] 104 mmol/L Normal 95-106 [facility] CO2 [Moles/Vol] 25 mmol/L Normal 24-35 [facility] Creatinine [Mass/Vol] 0.52 mg/dL Normal 0.5-1 [facility] Glucose [Mass/Vol] 135 mg/dL High 60-115 [facility] Potassium [Moles/Vol] 4.5 mmol/L Normal 3.7-5.3 [facility] Protein [Mass/Vol] 8.0 g/dL Normal 6.4-8.4 [facility] Sodium [Moles/Vol] 140 mmol/L Normal 135-145 [facility] Urea nitrogen [Mass/Vol] 15 mg/dL Normal 5-18 [facility] Valproic Acidon 02-18-2019 Valproic Acid 47.1 ug/mL Low 50.0-100.0 [facility] PAP, THIN PREP WITH IMAGINGo n 06-29-2018 PAP, THIN PREP WITH IMAGING Normal [facility] Comment on above: Result Comment: INTE RPRETATION Thin Prep Image-Guided Pap Test (Cervical/Endocervical) NEGATIVE FOR INTRAEPITHELIAL LESION /MALIGNANCY Satisfactory for evaluation (Endocervical/transformation zone component present) [facility]/06/27/2018 The Pap test is a screening test, [...] 05/18/18 ICD-CM DIAGNOSIS CODE(S) Z01.419 [employer] Exam (general) (routine) W/o Abn Findings * EFFECTIVE 06/08/2018 * * CLINICAL CHEMISTRY PLATFORM CHANGES ARE ASSOCIATED WITH * * REFERENCE RANGE CHANGES FOR A NUMBER OF ANALYTES. PLEASE * * REVIEW REFERENCE INTERVALS CAREFULLY * [facility] [employer] [employer] [address] [place] [address] CLIA No. [id number] CAP Accreditation No. [id number] [employer] Academic Coach: Johnson Garland M.D. [employer] Accession Number: [id number] Performed By: #### P L PAP W/IMAGE #### [address] [address] [address] Nucleic-Acid Probe-Endoce rvical Swabon 06-24-2018 CT Nucleic-Acid Probe-Endocervical Swab Negative Normal NEGATIVE [facility] Comment on above: Performed By: #### G C Amp Endocerv, CT Amp Endocerv #### [address] [address] Age at specimen collection = Normal [facility] Comment on above: Performed By: #### G C Amp Endocerv, CT A[facility] Endocerv #### [address] [address] Performed By: #### P L PAP W/IMAGE #### [address] [address] GC Nucleic-Acid Probe-Endoce rvical Swabon 06-24-2018 GC Nucleic-Acid Probe-Endocervical Swab Negative Normal NEGATIVE [facility] Comment on above: Performed By: #### G C Amp Endocerv, CT Amp Endocerv #### [address] [id number] Platelet Functionon 03-24-19 19 Collagen/ADP 148 sec High 67-112 [facility] Comment on above: Performed By: #### P FA #### [facility] [address] [place], [place] [id number] Collagen/EPI 228 sec High 85-172 [facility] Comment on above: Performed By: #### P FA #### [facility] [address] [place], [place] [id number] Interpretation Abnormal platelet function. Normal [facility] Comment on above: Result Comment: Comm [...] established. Performed By: #### P FA #### [facility] [address] [place] [address] [id number] XR ANKLE RIGHT STANDARDon XR ANKLE RIGHT STANDARD Radiology exam i s complete. No Radiologist dictation. Please follow up with ordering provider. Final result Normal [facility] Vital Signs Date Time Vital Sign Value Performing Clinician Facility 07-20-2024 11:33-0400 Body mass index (BMI) [Ratio] 34.52 kg/m2 [employer] DO Work Phone: [facility] 07-20-2024 11:33-0400 Body weight 89.81 kg [employer] DO Work Phone: [facility] 07-20-2024 11:33-0400 Diastolic blood pressure 70 mm[Hg] [employer] DO Work Phone: [facility] 07-20-2024 11:33-0400 Systolic blood pressure 118 mm[Hg] [employer] DO Work Phone: [facility] 09-24-2023 10:29-0400 Body height 170.18 cm [facility] 09-24-2023 10:29-0400 Body mass index (BMI) [Ratio] 30.2 kg/m2 [facility] 09-24-2023 10:29-0400 Body weight 87.54 kg [facility] 09-24-2023 10:29-0400 Diastolic blood pressure 78 mm[Hg] [facility] 09-24-2023 10:29-0400 Heart rate 67 /min [facility] 09-24-2023 10:29-0400 SaO2% (BldA) [Mass fraction] 98 % [facility] 09-24-2023 10:29-0400 Systolic blood pressure 112 mm[Hg] [facility] 08-21-2023 14:43-0400 Body height 161.3 cm Cori Maturu V, DO Work Phone: [facility] Comment on above: verbal 08-21-2023 14:43-0400 Body mass index (BMI) [Ratio] 34.59 kg/m2 Cori Maturu V, DO Work Phone: [facility] 08-21-2023 14:43-0400 Body temperature 98.29 [degF] Cori Maturu V, DO Work Phone: [facility] 08-21-2023 14:43-0400 Body weight 89.99 kg Cori Maturu V, DO Work Phone: [facility] 08-21-2023 14:43-0400 Diastolic blood pressure 76 mm[Hg] Cori Maturu V, DO Work Phone: [facility] 08-21-2023 14:43-0400 Heart rate 88 /min Cori Maturu V, DO Work Phone: [facility] 08-21-2023 14:43-0400 Systolic blood pressure 130 mm[Hg] Cori Maturu V, DO Work Phone: [facility] 07-07-2023 14:37-0400 Body height 170.18 cm [facility] 07-07-2023 14:37-0400 Body mass index (BMI) [Ratio] 30.8 kg/m2 [facility] 07-07-2023 14:37-0400 Body weight 89.35 kg [facility] 07-07-2023 14:37-0400 Diastolic blood pressure 78 mm[Hg] [facility] 07-07-2023 14:37-0400 Heart rate 81 /min [facility] 07-07-2023 14:37-0400 SaO2% (BldA) [Mass fraction] 98 % [facility] 07-07-2023 14:37-0400 Systolic blood pressure 112 mm[Hg] [facility] 05-28-2023 14:04-0400 Body height 161.3 cm Petra Silveira MED AIDE-SLATE ROOFER HELPER Work Phone: [facility] 05-28-2023 14:04-0400 Body mass index (BMI) [Ratio] 34.09 kg/m2 Crystal Raoul MED AIDE-SLATE ROOFER HELPER Work Phone: [facility] 05-28-2023 14:04-0400 Body temperature 98.01 [degF] Crystal Raoul MED AIDE-SLATE ROOFER HELPER Work Phone: [facility] 05-28-2023 14:04-0400 Body weight 88.68 kg Crystal Raoul MED AIDE-SLATE ROOFER HELPER Work Phone: [facility] 05-28-2023 14:04-0400 Diastolic blood pressure 74 mm[Hg] Crystal Raoul MED AIDE-SLATE ROOFER HELPER Work Phone: [facility] 05-28-2023 14:04-0400 Heart rate 92 /min Crystal Raoul MED AIDE-SLATE ROOFER HELPER Work Phone: [facility] 05-28-2023 14:04-0400 Systolic blood pressure 122 mm[Hg] Crystal Raoul MED AIDE-SLATE ROOFER HELPER Work Phone: [facility] 04-22-2023 13:04-0500 Body mass index (BMI) [Ratio] 34 kg/m2 Donovan Kimmie DO Work Phone: [facility] 04-22-2023 13:04-0500 Body weight 88.45 kg Donovan Kimmie DO Work Phone: [facility] 04-22-2023 13:04-0500 Diastolic blood pressure 78 mm[Hg] Donovan Kimmie DO Work Phone: [facility] 04-22-2023 13:04-0500 Systolic blood pressure 120 mm[Hg] Donovan Kimmie DO Work Phone: [facility] 02-14-2023 15:48-0500 Body height 161.3 cm Petra Raoul MED AIDE-SLATE ROOFER HELPER Work Phone: [facility] Comment on above: verbal 02-14-2023 15:48-0500 Body mass index (BMI) [Ratio] 34.82 kg/m2 Petra Raoul MED AIDE-SLATE ROOFER HELPER Work Phone: [facility] 02-14-2023 15:48-0500 Body temperature 97.9 [degF] Crystal Raoul MED AIDE-SLATE ROOFER HELPER Work Phone: [facility] 02-14-2023 15:48-0500 Body weight 90.58 kg Petra Raoul MED AIDE-SLATE ROOFER HELPER Work Phone: [facility] 02-14-2023 15:48-0500 Diastolic blood pressure 79 mm[Hg] Crystal Raoul MED AIDE-SLATE ROOFER HELPER Work Phone: [facility] 02-14-2023 15:48-0500 Heart rate 107 /min Crystal Raoul MED AIDE-SLATE ROOFER HELPER Work Phone: [facility] 02-14-2023 15:48-0500 Systolic blood pressure 133 mm[Hg] Crystal Raoul MED AIDE-SLATE ROOFER HELPER Work Phone: [facility] 01-15-2023 13:50-0500 Body temperature 97.5 [degF] Andi Smith MD Work Phone: [facility] 01-15-2023 13:50-0500 Diastolic blood pressure 79 mm[Hg] Andi Smith MD Work Phone: [facility] 01-15-2023 13:50-0500 Heart rate 78 /min Andi Smith MD Work Phone: [facility] 01-15-2023 13:50-0500 Respiratory rate 16 /min Andi Smith MD Work Phone: [facility] 01-15-2023 13:50-0500 SaO2% (BldA) [Mass fraction] 98 % Andi Smith MD Work Phone: [facility] 01-15-2023 13:50-0500 Systolic blood pressure 117 mm[Hg] Andi Smith MD Work Phone: [facility] 01-15-2023 07:50-0500 Body height 161.3 cm Andi Smith MD Work Phone: [facility] 01-15-2023 07:50-0500 Body mass index (BMI) [Ratio] 34.37 kg/m2 Andi Smith MD Work Phone: [facility] 01-15-2023 07:50-0500 Body weight 89.4 kg Andi mSith MD Work Phone: [facility] 01-09-2023 08:39-0400 Body height 161.3 cm Esau Gage PAC Work Phone: [facility] 01-09-2023 08:39-0400 Body mass index (BMI) [Ratio] 33.65 kg/m2 Esau Gage PAC Work Phone: [facility] 01-09-2023 08:39-0400 Body temperature 98.49 [degF] Esau Gage PAC Work Phone: [facility] 01-09-2023 08:39-0400 Body weight 87.54 kg Esau Gage PAC Work Phone: [facility] 01-09-2023 08:39-0400 Diastolic blood pressure 80 mm[Hg] Esau Gage PAC Work Phone: [facility] 01-09-2023 08:39-0400 Heart rate 81 /min Esau Gage PAC Work Phone: [facility] 01-09-2023 08:39-0400 Respiratory rate 18 /min Esau Gage PAC Work Phone: [facility] 01-09-2023 08:39-0400 SaO2% (BldA) [Mass fraction] 98 % Esau Gage PAC Work Phone: [facility] 01-09-2023 08:39-0400 Systolic blood pressure 134 mm[Hg] Esau Gage PAC Work Phone: [facility] 12-10-2022 10:53-0400 Body height 160 cm Andi Smith MD Work Phone: [facility] 12-10-2022 10:53-0400 Body mass index (BMI) [Ratio] 34.19 kg/m2 Andi Smith MD Work Phone: [facility] 12-10-2022 10:53-0400 Body weight 87.54 kg Andi Smith MD Work Phone: [facility] 12-10-2022 10:53-0400 Diastolic blood pressure 63 mm[Hg] Andi Smith MD Work Phone: [facility] 12-10-2022 10:53-0400 Heart rate 65 /min Andi Smith MD Work Phone: [facility] 12-10-2022 10:53-0400 Systolic blood pressure 125 mm[Hg] Andi Smith MD Work Phone: [facility] 11-08-2022 16:21-0400 Body height 160 cm Crystal Raoul MED AIDE-SLATE ROOFER HELPER Work Phone: [facility] Comment on above: verbal 11-08-2022 16:21-0400 Body mass index (BMI) [Ratio] 34.26 kg/m2 Crystal Raoul MED AIDE-SLATE ROOFER HELPER Work Phone: [facility] 11-08-2022 16:21-0400 Body temperature 99.1 [degF] Crystal Raoul MED AIDE-SLATE ROOFER HELPER Work Phone: [facility] 11-08-2022 16:21-0400 Body weight 87.73 kg Crystal Raoul MED AIDE-SLATE ROOFER HELPER Work Phone: [facility] 11-08-2022 16:21-0400 Diastolic blood pressure 71 mm[Hg] Crystal Raoul MED AIDE-SLATE ROOFER HELPER Work Phone: [facility] 11-08-2022 16:21-0400 Heart rate 97 /min Crystal Raoul MED AIDE-SLATE ROOFER HELPER Work Phone: [facility] 11-08-2022 16:21-0400 Systolic blood pressure 116 mm[Hg] Crystal Raoul MED AIDE-SLATE ROOFER HELPER Work Phone: [facility] 07-04-2021 09:38-0400 Body height 161.3 cm Crystal Raoul MED AIDE-SLATE ROOFER HELPER Work Phone: [facility] Comment on above: verbal 07-04-2021 09:38-0400 Body mass index (BMI) [Ratio] 36.23 kg/m2 Crystal Raoul MED AIDE-SLATE ROOFER HELPER Work Phone: [facility] 07-04-2021 09:38-0400 Body temperature 98.71 [degF] Crystal Raoul MED AIDE-SLATE ROOFER HELPER Work Phone: [facility] 07-04-2021 09:38-0400 Body weight 94.26 kg Petra Silveira MED AIDE-SLATE ROOFER HELPER Work Phone: [facility] 07-04-2021 09:38-0400 Diastolic blood pressure 70 mm[Hg] Petra Silveira MED AIDE-SLATE ROOFER HELPER Work Phone: [facility] 07-04-2021 09:38-0400 Heart rate 73 /min Petra Silveira MED AIDE-SLATE ROOFER HELPER Work Phone: [facility] 07-04-2021 09:38-0400 Systolic blood pressure 119 mm[Hg] Petra Silveira MED AIDE-SLATE ROOFER HELPER Work Phone: [facility] Encounters Encounter Date Encounter Type Care Provider Facility Start: 07-20-2024 End: 07-20-2024 Bamboo flowsheet Donovan Kimmie DO Work Phone: [facility] Start: 07-20-2024 End: 07-27-2024 Bamboo flowsheet Donovan Kimmie DO Work Phone: [facility] Start: 07-20-2024 End: 07-27-2024 External Result Encounter Donovan Kimmie DO Work Phone: [facility] Unsolicited Start: 07-20-2024 End: 07-20-2024 Patient encounter procedure Donovan Kimmie DO Work Phone: [facility] Comment on above: Skin tag Start: 07-20-2024 End: 07-20-2024 ambulatory DONOVAN KIMMIE Not Available Start: 07-20-2024 End: 07-20-2024 Departed Referred Donovan Kimmie DO Work Phone: [facility] Start: 06-28-2024 Non-patient / Non-visit Donovan Kimmie DO Work Phone: [facility] Work Phone: Start: 06-28-2024 End: 06-30-2024 Clinisync Result Encounter Donovan Kimmie DO Work Phone: [facility] Unsolicited Start: 06-28-2024 End: 06-30-2024 Clinisync Result Encounter Donovan Kimmie DO Work Phone: [facility] Unsolicited Start: 06-07-2024 [facility] Start: 05-26-2024 Non-patient / Non-visit Donovan Kimmie DO Work Phone: [facility] Work Phone: Start: 05-26-2024 End: 05-28-2024 Clinisync Result Encounter [...] 11-12-2023 End: 11-13-2023 Clinisync Result Encounter Donovan Ikmmie DO Work Phone: [facility] Unsolicited Start: 10-20-2023 End: 10-20-2023 ambulatory DONOVAN LOMBARDOO Not Available Start: 10-15-2023 End: 10-15-2023 ambulatory MADONNA PARSONS Not Available Start: 09-24-2023 End: 09-24-2023 ambulatory [facility] Work Phone: Start: 09-24-2023 End: 09-24-2023 Patient encounter procedure [facility] Work Phone: Start: 09-11-2023 Non-patient / Non-visit [facility] Work Phone: Start: 08-21-2023 End: 08-21-2023 Office outpatient visit 25 minutes Cori Hernández DO Work Phone: [facility] 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); Anxiety disorder, unspecified type Start: 08-21-2023 ambulatory [facility] Facility: [facility] Start: 08-08-2023 Non-patient / Non-visit [facility] Physician [facility] Work Phone: Start: 07-09-2023 Non-patient / Non-visit [facility] Physician [facility] Work Phone: Start: 07-07-2023 End: 07-07-2023 ambulatory [facility] Work Phone: Start: 07-07-2023 End: 07-07-2023 Patient encounter procedure [facility] Work Phone: Start: 06-27-2023 Non-patient / Non-visit [facility] Work Phone: Start: 06-08-2023 Non-patient / Non-visit [facility] Physician [facility] Work Phone: Start: 05-28-2023 End: 05-28-2023 Office outpatient visit 25 minutes Petra Silveira MED AIDE-SLATE ROOFER HELPER Work Phone: [facility] [place] 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); Anxiety disorder, unspecified type Start: 05-09-2023 Non-patient / Non-visit [facility] Work Phone: Start: 04-22-2023 End: 04-22-2023 ambulatory DONOVAN KIMMIE Not Available Start: 04-22-2023 End: 04-22-2023 Office outpatient visit 15 minutes Donovan Kimmie DO Work Phone: [facility] Comment on above: Encounter for fertil ity planning Start: 02-14-2023 End: 02-14-2023 Office outpatient visit 25 minutes Petra Silveira MED AIDE-SLATE ROOFER HELPER Work Phone: [facility] [place] 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); 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 Start: 01-15-2023 End: 01-15-2023 Subsequent hospital visit by physician Andi Smith MD Work Phone: [facility] 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 Start: 01-09-2023 End: 01-09-2023 Office consultation new/estab patient 60 min Esau Gage PAC Work Phone: Pre-Procedure Evaluation and Assessment [facility] Comment on above: Preop exam for inter nal medicine (Primary Dx); Jeavons syndrome; 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 Start: 01-09-2023 End: 01-09-2023 Patient encounter status Esau Gage PAC Work Phone: [facility] Start: 01-09-2023 End: 01-09-2023 Subsequent hospital visit by physician Andi Smith MD Work Phone: Imaging [facility] Comment on above: Arrived Start: 12-10-2022 End: 12-10-2022 Office outpatient new 45 minutes Andi Smith MD [facility] 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) Start: 11-08-2022 End: 11-08-2022 Office outpatient visit 40 minutes Petra Silveira MED AIDE-SLATE ROOFER HELPER Work Phone: Neurology [facility] Comment on above: [...] Office outpatient visit 25 minutes Petra Silveira MED AIDE-SLATE ROOFER HELPER Work Phone: Neurology [facility] Comment on above: Generalized nonconvu lsive epilepsy (Primary Dx) Start: 06-24-2018 Encounter for gynecological examination (general) (routine) without abnormal findings NA NONE PER PATIENT [facility] Start: 06-24-2018 End: 06-24-2018 Patient encounter procedure GERARDO WARD Facility:[facility] Start: 05-25-2018 End: 05-25-2018 Patient encounter procedure . NONE PER PATIENT Facility:[facility] Start: 05-13-2018 End: 05-13-2018 Patient encounter procedure . NONE PER PATIENT Facility:[facility] Start: 03-23-2018 End: 03-24-2018 Patient encounter procedure [facility] Start: 03-20-2018 End: 03-21-2018 Patient encounter procedure [facility] Procedures Date Procedure Procedure Detail Performing Clinician Start: 07-20-2024 PATHOLOGY REQUEST FO R LAB HELGA Donovan Kimmie DO Work Phone: Start: 06-28-2024 ALL PROGESTERONE Donovan Kimmie DO Work Phone: Start: 05-26-2024 ALL PROGESTERONE Donovan Kimmie DO [...] By: #### C D #### Performed at [facility], [address] [place] [address] Start: 03-23-2018 PLATELET FUNCTION TEST JAMIL SMITH Plan of Treatment Date Care Activity Detail Author Start: 10-28-2024 End: 10-28-2024 Patient encounter procedure 10/28/2024 9:00 AM EDT Office Visit [facility] [address] [place] [address] Donovan Burks, DO [address], [place] [address] [facility] Start: 07-20-2024 End: 07-20-2024 Patient encounter procedure 07/20/2024 11:10 AM EDT Office Visit [facility] [address] [place] [address] Donovan Burks, DO [address], [place] [address] [facility] Start: 07-20-2024 [facility] Start: 01-22-2024 End: 01-22-2024 Patient encounter procedure 01/22/2024 9:15 AM EST Office Visit Neurology [facility] [address] [place] [address] Cori Dia, [address] [place] [address] Neurology [facility] Start: 11-28-2023 End: 11-28-2023 Patient encounter procedure 11/28/2023 10:20 AM EDT Office Visit [facility] [address] [address] Petra Silveira, MED AIDE-SLATE ROOFER HELPER [address] [place] [phone] [facility] [place] Start: 11-09-2023 COVID-19 VACCINE ( season) COVID-19 VACCINE () [facility] Start: 11-09-2023 Influenza vaccination [facility] Start: 08-21-2023 End: 08-21-2023 Patient encounter procedure 08/21/2023 2:45 PM EDT Office Visit Neurology [facility] [address] [facility] [address] [place] [phone] Cori Dia, DO [address] [place] [address] Neurology [facility] Start: 05-28-2023 End: 05-28-2023 Patient encounter procedure 05/28/2023 2:00 PM EDT Office Visit Neurology [facility] [address] [facility] [address] [place] [phone] Petra Silveira, MED AIDE-SLATE ROOFER HELPER [address] [place] [phone] Neurology [facility] Start: 02-14-2023 End: 02-14-2023 Patient encounter procedure Neurology [facility] Start: 01-15-2023 End: 01-15-2023 Admission to same day surgery center 01/15/2023 9:40 AM EST - 01/15/2023 11:50 AM EST Surgery [facility] [address] [place] [address] Andi Smith MD [address] [place] [phone] INSERTION REPLACEMENT NEUROSTIMULATOR GENERATOR CRANIAL/INTRACRANIAL [facility] Comment on above: INSERTION REPLACEMENT NEUROSTIMULATOR GE NERATOR CRANIAL/INTRACRANIAL Start: 01-15-2023 End: 01-15-2023 Insj/rplcmt cranial neurostim pulse generator INSERTION REPLACEMENT NEUROSTIMULATOR GENERATOR CRANIAL/INTRACRANIAL Jeavons syndrome 01/15/2023 9:40 AM EST [facility] Start: 01-15-2023 Subsequent hospital visit by physician 01/15/2023 9:40 AM EST Hospital Encounter [facility] [address] [place] [address] Andi Smith MD [address] [place] [phone] Jeavons syndrome [facility] 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 Start: 12-10-2022 End: 12-11-2023 Radiographic imaging procedure XR STIMULATOR/INTRATHECAL PUMP Imaging Routine Jeavons syndrome Expected: 12/10/2022, Expires: 12/11/2023 [facility] Comment on above: Expected: 12/10/2022, Expires: Start: 12-10-2022 End: 12-10-2022 Patient encounter procedure 12/10/2022 11:30 AM EDT Office Visit [facility] [address] [place] [address] Andi Smith MD [address] [place] [phone] [facility] Start: 11-08-2022 COVID-19 VACCINE ( season) COVID-19 VACCINE ( season) [facility] Start: 11-08-2022 Influenza vaccination INFLUENZA VACCINE (#1) [facility] Start: 01-04-2022 End: 01-04-2022 Patient encounter procedure 01/04/2022 Office Visit Neurology Cori Dia DO [address] [place] [address] Neurology [facility] Start: 11-08-2021 Influenza vaccination INFLUENZA VACCINE (Season Ended) [facility] Start: 10-10-2021 End: 10-10-2021 Telemedicine consultation with patient 10/10/2021 Telemedicine Neurology Petra Silveira, MED AIDE-SLATE ROOFER HELPER [address] [place] [phone] Neurology [facility] Start: 08-15-2021 End: 08-15-2021 Telemedicine consultation with patient 08/15/2021 Telemedicine Neurology Petra Silveira, MED AIDE-SLATE ROOFER HELPER [address] [place] [address] Neurology [facility] Start: 2013 Screening for malignant neoplasm of cervix CERVICAL CANCER SCREENING DISCUSSION [facility] Start: 07-15-2011 Hepatitis B vaccination HEP B VACCINE (1 of 3 - 19+ 3-dose series) [facility] Start: 07-15-2011 Third diphtheria, tetanus and acellular pertussis (DTaP) vaccination TDAP (ADULT) [facility] Start: 2010 Tetanus vaccination TETANUS [facility] Start: 07-15-2007 HIV screening HIV SCREENING DISCUSSION [facility] Start: 1997 COVID-19 VACCINE (1) COVID-19 VACCINE (1) [facility] Start: 01-14-1993 COVID-19 VACCINE (#1) COVID-19 VACCINE (#1) [facility] Start: 1992 Hepatitis B vaccination HEP B VACCINE (1 of 3 - 3-dose series) [facility] Start: 1992 Hepatitis C antibody, confirmatory test HEPATITIS C VIRUS SCREENING [facility] Start: 1992 Hepatitis C screening HEPATITIS C VIRUS SCREENING [facility] Start: 1992 Tetanus vaccination TETANUS [facility] Ecg routine ecg w/le ast 12 lds w/i&r ID ELECTROCARDIOGRAM, COMPLETE ID - OFFICE PERFORMED Routine 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 Ordered: 01/09/2023 [facility] Comment on above: Ordered: 01/09/2023 Elec horace implt npgt phys/qhp w/o programming ID ELEC HORACE IMPLT NPGT PHYS/QHP W/O PROGRAMMING ID Charge Routine Jeavons syndrome Ordered: 09/09/2023 [facility] Comment on above: Ordered: 09/09/2023 Elec horace implt smpl cn npgt prgrmg ID ELEC HORACE IMPLT SMPL CN NPGT PRGRMG ID Charge Routine Jeavons syndrome Ordered: 11/14/2022 [facility] Comment on above: Ordered: 11/14/2022 Elec horace implt smpl cn npgt prgrmg ID ELEC HORACE IMPLT SMPL CN NPGT PRGRMG ID Charge Routine 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 Ordered: 03/12/2023 [facility] Comment on above: Ordered: 03/12/2023 Elec horace implt smpl cn npgt prgrmg ID ELEC HORACE IMPLT SMPL CN NPGT PRGRMG ID Charge Routine Jeavons syndrome Ordered: 06/21/2023 [facility] Comment on above: Ordered: 06/21/2023 Insj/rplcmt cranial neurostim pulse generator INSERTION REPLACEMENT NEUROSTIMULATOR GENERATOR CRANIAL/INTRACRANIAL Jeavons syndrome [facility] Noninvasive ear/puls e oximetry single deter ID NONINVASV OXYGEN SATUR; SINGLE ID - OFFICE PERFORMED Routine 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 Ordered: 01/09/2023 [facility] Comment on above: Ordered: 01/09/2023 Immunizations Immunization Date Immunization Notes Care Provider [facility] 01-04-2014 influenza, seasonal, injectable, preservative free Andi Smith MD Work Phone: [facility] 01-04-2014 influenza virus vaccine, unspecified formulation Petra MORELOS Work Phone: [facility] Payers Date Payer Category Payer Unknown [id number] 2021 Medicaid [employer] [place] [id number] 2021-Present [address] [place] [address] [id number] 2021 Private Health Insurance [facility] MEDICA[facility] [id number] 2016 Unknown [id number] 2016 Self-pay 2014 Unknown [id number] 1992 Unknown [id number] 1992 Unknown [id number] 2.840.1.757175.3.579.2. 173 1992 Unknown [id number] 2..840.1.573750.3.579.2. 754 1992 Unknown [id number] 2..840.1.634099.3.579.2. 75 1992 Unknown [id number] 2.16.840.1.042559.3.579.2. 754 1992 Unknown [id number] 216.840.1.449718.3.579.2. 754 1992 Unknown [id number] 2.16.840.1.748228.3.579.2. 593 1992 Unknown [id number] 2.16.840.1.804988.3.579.2. 593 1992 Unknown [id number] 2.16.840.1.534351.3.579.2. 593 1992 Unknown [id number] 2.16.840.1.616113.3.579.2. 593 1992 Unknown [id number] 2.16.840.1.082029.3.579.2. 593 1992 Unknown [id number] 2.16.840.1.744054.3.579.2. 1259 1992 Unknown [id number] 2.16.840.1.709858.3.579.2. 594 1992 Unknown [id number] 2.16840.1.460934.3.579.2. 594 1992 Unknown [id number] 2.16840.1.174918.3.579.2. 1259 1992 Unknown [id number] 2.16840.1.113164.3.579.2. 9 1992 Unknown [id number] 2.16840.1.848540.3.579.2. 1259 1959 Unknown [id number] 1959 Unknown [id number] Unknown [id number] 2..840.1.235752.3.579.2. 531 Social History Date Type Detail Facility Start: 10-28-2019 End: 09-11-2022 Tobacco smoking status NHIS Never smoked tobacco [facility] Start: 10-28-2019 End: 09-11-2022 Tobacco use and exposure Smokeless tobacco non-user [facility] Start: 10-28-2019 Alcohol intake Current drinker of alcohol (finding) [facility] Start: 10-28-2019 History SDOH Alcohol Frequency 2 [facility] Start: 10-28-2019 History SDOH Alcohol Comment rare wine [facility] Start: 10-28-2019 Education 17 [facility] Start: 1990 Sex Assigned At Not on file [facility] Start: 11-08-2022 End: 09-09-2023 Alcohol intake Ex-drinker (finding) [facility] Start: 10-28-2019 End: 10-20-2023 History of Social function [facility] Start: 10-28-2019 End: 10-20-2023 Alcohol Use Disorder Identification Test - Consumption [AUDIT-C] [facility] How often to you hav e a drink containing alcohol? Monthly or less [facility] Average Number of Drinks Not on file [facility] Start: 10-29-2019 Gender identity Identifies as female gender (finding) [facility] Start: 10-29-2019 Sexual orientation Heterosexual (finding) [facility] Start: 02-14-2023 Tobacco Comment Never [facility] Start: 02-14-2023 Alcohol Comment At most one or two drinks a month. [facility] Start: 04-22-2023 End: 07-20-2024 Alcohol intake Not Asked [facility] Start: 08-07-2022 Alcohol Comment Occasional alcohol use [facility] Start: 1990 Sex Assigned At Female [facility] Start: 07-22-2024 Sex Female (finding) [facility] Medical Equipment Procedure Code Equipment Code Equipment Origin al Text Equipment Identifier Dates [employer] [id number] Start: 01-15-2023 Clinical Notes 07-04-2021 to 07-20-2024 Rhonda Dubois LPN - 07/20/2024 11:10 AM EDTTelephone Encounter - Namrata Tony - 11/19/2023 1:05 PM EDTTelephone Encounter - Namrata Tony - 11/19/2023 1:05 PM EDTPatient Instructions Note Date & Type Note Facility 07-20-2024 History of Present illness Narrative Reason for Appointment: Patient ID: Rowena Drake [...] nursing note reviewed. Exam conducted with a manager nursing present. Vitals: Estimated body mass index is 34.52 kg/m as calculated from the following: Height [...] after allowing sufficient time to take affect. pick up and delivery driver and scissors used to remove affected area. Placed in formalin and sent to pathology. Post-procedure instructions given. Follow Up: As needed Documented by Rhonda Dubois LPN on behalf of: Donovan Burks DO documented in this encounter [facility] 11-19-2023 Telephone encounter Note Images from the original note were not included. Medication Access Team coordinated the following [facility] Clin[facility]: MS/Neurology Prior Authorization Per the patient's insurance provider, [employer], the prior authorization for LAMOTRIGINE 300 (on-label) was approved. Authorization number: [id number] Authorization start date: 11/14/23 Authorization end date: 11/12/24 Non-Specialty Prescriptions: 1, 20-25 min [facility]-19-[facility]23 Miscellaneous Notes Images from the original note were not included. Medication Access Team coordinated the following [facility] PAC Clinics: MS/Neurology Prior Authorization Per the patient's insurance provider, Adrienne, the prior authorization for LAMOTRIGINE 300 (on-label) was approved. Authorization number: [id number] Authorization start date: 11/14/23 Authorization end date: 11/12/24 Non-Specialty Prescriptions: 1, 20-25 min Namrata Tony documented in this encounter [facility] 11-14-2023 Telephone encounter Note Images from the original note were not included. *Documentation only- I did not speak with the patient. Received fax from [employer] stating PA is needed for Lamotrigine ER 300 mg tablets. Current auth expires 11/25/2023. [facility] 11-14-2023 Miscellaneous Notes Images from the original note were not included. *Documentation only- I did not speak with the patient. Received fax from [employer] stating PA is needed for Lamotrigine ER 300 mg tablets. Current auth expires 11/25/2023. documented in this encounter [facility] 08-21-2023 History of Present illness [...] 24 hours. 2 Each 0 Prenat MV-Min w/Du-Mhodei-BBH ( COMPLETE PO) Take 1 tablet by [...] System Diagnostic Patient ID AW Model ID Isaiahva [id number] Serial # [id number] Implanted 03/27/2018 Communication Output Current Status Current [...] of questions or concerns. Cori Hernández DO [employer] Department of Neurology, Epilepsy Division The documented in this encounter [facility] 08-21-2023 Instructions Cori Meek DO - 08/21/2023 [...] you can call the Neurology clinic at [phone]. If you have access through trippiece, you can contact me through that system as well. documented in this encounter [facility] 05-28-2023 History of Present illness Narrative Images from the original note were not included. Rowena Drake was seen in the [facility] at [facility] on 05/28/2023. She is here today [...] 24 hours. 2 Each 0 Prenat MV-Min w/Ok-Lwpphy-GTO ( COMPLETE PO) Take 1 tablet by [...] your epilepsy that we offer at the [facility]? Yes If you have tried 2 or 3 anti-seizure medications and your seizures are still not controlled, are you interested in learning about surgical options for your epilepsy that we can offer at the [facility]? No Neurological Disorders Depression Inventory for [...] 01/15/2023 Model Number 1000 1000 Serial Number [id number] Output Current (mA) 2.5 mA 2.25 mA [...] and continue maintenance dose of clobazam - ID ELEC HORACE IMPLT SMPL CN NPGT PRGRMG [...] seizure rescue medications and when to call 11-08-. We discussed seizure first aid: Generally speaking, [...] 45 tablet; Refill: 2 Encouraged use of [employer] to send messages to provider as needed for questions and concerns or can call our clinic @ [phone]. She will return in [address] Hernández or sooner if clinically indicated. Signed, Petra Silveira MSN, MED AIDE-SLATE ROOFER HELPER The Department of Neurology - Epilepsy Division [address] [place] [address] - 7th floor [place] [address] Pager: [phone] I spent a total of 35 minutes on the date of the service which included preparing to see the patient, [id number]-[id number] patient care, completing clinical documentation, performing a medically appropriate examination and counseling and educating the patient/family/caregiver. Note to patient: The Century Cures Act makes medical notes like these available to patients in the interest of transparency. However, be advised this is a medical document. It is intended as uxfi-ci-xbfj communication. It is written in medical language and may contain abbreviations or verbiage that are unfamiliar. It may appear blunt or direct. Medical documents are intended to carry relevant information, facts as evident, and the clinical opinion of the practitioner. documented in this encounter [facility] 04-22-2023 History of Present illness [...] nursing note reviewed. Exam conducted with a manager nursing present. Vitals: Estimated body mass index is [...] Donovan Burks DO documented in this encounter [facility] 02-14-2023 History of Present illness Narrative Images from the original note were not included. Rowena Byers was seen in the Comprehensive Ep[facility]psy Center at [facility] on 02/14/2023. She is here today [...] 24 hours. 2 Each 0 Prenat MV-Min w/Bi-Lmyfvl-DRO ( COMPLETE PO) Take 1 tablet by [...] ID ABW Model ID SenTiva Serial # [id number] Implanted 01/15/2023 Communication [place] Output Current Status [...] VNS Simple Reprogramming (1-3 changes) CPT code 66749 Assessment and Plan Assessment: Rowena is a [...] longer than 5 minutes. Encouraged use of In[employer]ium Golf to send messages to provider as needed for questions and concerns or can call our clinic @ [phone]. She will return in 3 months with and [address] Hernández or sooner if clinically indicated. Signed, Petra Silveira MSN, MED AIDE-SLATE ROOFER HELPER The Department of Neurology - Epilepsy Division [address] [place] [address] - 7th floor [place] [address] Pager: [phone] I spent a total of 34 minutes on the date of the service which included preparing to see the patient, ztsw-qt-druy patient care, completing clinical documentation, performing a medically appropriate examination and counseling and educating the patient/family/caregiver. Note to patient: The 21st Century Cures Act makes medical notes like these available to patients in the interest of transparency. However, be advised this is a medical document. It is intended as wqbj-fi-rtef communication. It is written in medical language and may contain abbreviations or verbiage that are unfamiliar. It may appear blunt or direct. Medical documents are intended to carry relevant information, facts as evident, and the clinical opinion of the practitioner. documented in this encounter [facility] 02-14-2023 Instructions JETHRO Juan - [...] after regular office hours, a neurologist is sterilisation technician for urgent issues. Call the neurology office number ([phone]) to reach the neurologist sterilisation technician if you are continuing to experience many more seizures than usual despite use of your rescue medications. Please try to remember that the neurologist sterilisation technician may not have access to your complete medical record and may not be as familiar with your history. If you have access through trippiece, you can contact us through that system as well. If you have documents that need completed or sent to our clinic, please have them faxed to [phone]. It is always best to call during [...] is ready for you to pick up and delivery driver. Seizure First Aid Training Can Be Found Here (it's free!): [email or web address] nd documented in this encounter [facility] 01-15-2023 Miscellaneous Notes [facility] [...] the new IPG and secured with the molder shoulder pad's screwdriver. At this point, a computer programmer was used to interrogate the new [...] VSS, anesthesia sign out completed. 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 SURGEON Surgeon(s) and Role: * Andi Smith MD - Primary ANESTHESIOLOGIST Anesthesiologist: Cydney Zavala MD CENTRAL OFFICE INSTALLER: Geraldo Marion APRN-MARTITA Student Nurse Funeral Director'S Assistant: Chiquita Polanco SURGICAL STAFF Client Services Coordinator: Miki Gary RN; Linda Gilmore RN Relief Client Services Coordinator: Janet Carreon RN Scrub Person: Marielle Ibrahim Resident Assisting: Colt Meadows MD COMPLICATIONS None ESTIMATED BLOOD LOSS Minimal SPECIMENS No specimen sent * No specimens in log * Colt Meadows MD January 15, 2023 11:03 AM documented in this encounter [facility] 01-15-2023 Nurse Note Pt and family were given AVS and verbalize understanding of instructions. Pt discharged via wheelchair. [facility] 01-15-2023 Surgery Postoperative evaluation and [...] the new IPG and secured with the molder shoulder pad's screwdriver. At this point, a computer programmer was used to interrogate the new [...] entire procedure and performed the critical portions. [facility] 01-15-2023 Nurse Note Report called to RN SPR, VSS, anesthesia sign out completed. 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 SURGEON Surgeon(s) and Role: * Andi Smith MD - Primary ANESTHESIOLOGIST Anesthesiologist: Cydney Zavala MD CENTRAL OFFICE INSTALLER: Geraldo Marion APRN-CENTRAL OFFICE INSTALLER Student Nurse Funeral Director'S Assistant: Chiquita Polanco SURGICAL STAFF Client Services Coordinator: Miki Gary RN; Linda Gilmore RN Relief Client Services Coordinator: Janet Carreon RN Scrub Person: Marielle Ibrahim Resident Assisting: Colt Meadows MD COMPLICATIONS None ESTIMATED BLOOD LOSS Minimal SPECIMENS No specimen sent * No specimens in log * Colt Meadows MD January 15, 2023 11:03 AM [facility] 01-15-2023 Nurse Surgical operation note Report given to CANOPY STRINGER. Patient transported to PACU with anesthesia on a cart and oxygen. [facility] 01-15-2023 Nurse Note Report given to CANOPY STRINGER. Patient transported to PACU with anesthesia on a cart and oxygen. documented in this encounter [facility] 01-15-2023 Hospital Discharge instructions Colt Meadows MD - 01/15/2023 9:30 AM EST Discharge Instructions for DBS Surgery & Battery Placement Surgery Here are some general guidelines to assist you in your recovery at home. Please do not hesitate to call us with any questions or concerns you may have. We can be reached at [phone]. Your appointmentS will be in the Neuromodulation clinic in [address] Incision Care: If you have a [...] 101 degrees F documented in this encounter [facility] 01-15-2023 History and physical note [...] by Andi Smith MD, 01/15/2023, 9:08 AM. [facility] Work Phone: 01-15-2023 History and [...] 01/15/2023, 9:08 AM. documented in this encounter [facility] 01-09-2023 History and physical note Images from the original note were not included. History of Present Illness Ms. Byers is a 32 y.o. female is being evaluated in [facility] due to her medical condition of [...] 10 mg in 24 hours. Prenat MV-Min w/Ex-Grcfeb-DMN ( COMPLETE PO) Take 1 tablet by [...] % ointment HCG QUALITATIVE, URINE Pulse Ox ID ECG, CLINIC PERFORMED Lab A/P - Labs [...] patient has been medically OPTIMIZED FOR SURGERY. 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 Prenat MV-Min w/Rs-Pzoguf-IXH ( COMPLETE PO) Take 1 tablet by [...] % ointment HCG QUALITATIVE, URINE Pulse Ox ID ECG, CLINIC PERFORMED Lab A/P - Labs [...] patient has been medically OPTIMIZED FOR SURGERY. 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 She takes Lamictal for treatment 4. Science Manager--patient states she is actively trying to get . Will check hCG today and on day of surgery. Patient understands that surgery may be cancelled if she is . Anesthesia Assessment:No contraindications to planned surgery. Pending review of the patient's labs.ECG reviewed. Whitney Ward MD [facility] documented in this encounter [facility] 01-09-2023 Instructions Robyn Dempsey LPN [...] take Herbal Medication (including multi-vitamin, fish oil (Absaraka-3), garlic, Glucosamine - Chondroitin ,gingko, ginseng, Vitamin [...] site one week prior to surgery. - [place] your teeth and rinse your mouth the morning of surgery. - Do NOT bring your dentures or partials with you into surgery. They may be lost. Give them to someone to bring to you after surgery. If you are unable to complete your scheduled testing or appointments made by [facility] please contact [facility] at [phone]. Failure to do so could delay or [...] surgery, please notify our team immediately at [phone]. - If you have Sleep apnea and have a CPAP or BIPAP, then bring your CPAP mask and machine with you to the hospital. Please contact Medical Information Management Department for all records requests. [phone] [phone] Puma/mateo documented in this encounter [facility] 12-10-2022 History of Present illness [...] that were dedicated to clinical evaluation, including vzjo-ui-xnom time; counseling and education; chart completion; reviewing [...] aspirin, excedrin, plavix), multivitamins/minerals/herbal supplements (such as Absaraka-3, garlic, Glucosamine - Chondroitin, gingko, ginseng, Vitamin E, fish oil, etc), non-steroidal anti-inflammatory medications (NSAIDs) (such as Ibuprofen/Motrin/Advil, Aleve, Celebrex) for 10 days prior to surgery, as these are blood thinners. She was advised that Tylenol is the preferred option for pain. She stated understanding. documented in this encounter [facility] 11-08-2022 History of Present illness Narrative Images from the original note were not included. Rowena Byers was seen in the Comprehensive Ep[facility]psy [facility] at [facility] on 11/08/2022. She is here today [...] ID AW Model ID SenTiva Serial # [id number] Implanted 03/27/2018 Communication [place] Output Current Status [...] VNS Simple Reprogramming (1-3 changes) CPT code 40125 Assessment and Plan Assessment: Rowena is a [...] would like to wait Encouraged use of [employer]ium [employer] to send messages to provider as needed for questions and concerns or can call our clinic @ [phone]. She will return in 2 months or sooner if clinically indicated. Signed, Petra Silveira MSN, MED AIDE-SLATE ROOFER HELPER The Department of Neurology - Epilepsy Division [address] [place] [address] - 7th floor [place] [address] Pager: [phone] I spent a total of 46 minutes on the date of the service which included preparing to see the patient, fdhs-ig-ezvt patient care, completing clinical documentation, performing a medically appropriate examination and counseling and educating the patient/family/caregiver. Note to patient: The Century Cures Act makes medical notes like these available to patients in the interest of transparency. However, be advised this is a medical document. It is intended as zfqq-uh-zhkb communication. It is written in medical language and may contain abbreviations or verbiage that are unfamiliar. It may appear blunt or direct. Medical documents are intended to carry relevant information, facts as evident, and the clinical opinion of the practitioner. documented in this encounter [facility] 11-08-2022 Instructions JETHRO Juan - [...] ID AW Model ID SenTiva Serial # [id number] Implanted 03/27/2018 Communication OK Output Current Status OK Current Delivered 1.75 Lead Impedance OK Impedance Value 2903 IFI NO Average # of Inhibited Auto stimulations Daily Avg. Stim % Per Day %Therapy Normal 843.56 AutoStim 26.89 Magnet 0.04 Total 870.50 documented in this encounter [facility] 07-04-2021 Instructions JETHRO Juan - [...] weeks with Petra documented in this encounter [facility] 07-04-2021 History of Present illness Narrative Images from the original note were not included. Rowena Byers was seen in the [facility] Ep[facility]psy Center at [facility] on 07/04/2021. 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 This has greatly reduced her seizure frequency. 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 Encouraged use of Ingenium Golf to send messages to provider as needed for questions and concerns or can call our clinic @ [phone]. She will return in 6 weeks and 3 months with me and [address] Hernández or sooner if clinically indicated. Signed, Petra Silveira MSN, MED AIDE-SLATE ROOFER HELPER The Department of Neurology - Epilepsy Division [address] [place] [address] - 7th floor [place] [address] Pager: [phone] Time to complete visit: I spent approximately 38 minutes reviewing the chart prior to the appointment, in face to face counseling with the patient, and with documentation after the visit. 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 [facility] Jeavons syndrome- Primary [facility] Jeavons syndrome- Primary [facility] Jeavons syndrome Jeavons syndrome [facility] Preop exam for internal medicine- Primary Other specified pre-operative examination 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 Other postprocedural status Jeavons syndrome 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 Other postprocedural status [facility] Encounter for fertility planning documented in this encounter [facility]* Diagnosis Jeavons syndrome- Primary Anxiety disorder, unspecified type [facility] Diagnosis Onset Date Resolution Status Maxillary sinusitis [facility] Work Phone: Evaluation note* Diagnosis Jeavons syndrome- Primary Anxiety disorder, unspecified type [facility] Diagnosis Onset Date Resolution Status Maxillary sinusitis acute Maxillary sinusitis [facility] Work Phone: Evaluation note* Diagnosis PCOS (polycystic ovarian syndrome) Polycystic ovaries Skin tag Unspecified hypertrophic and atrophic condition of skin documented in this encounter [facility]No assessment [facility] Phone: Reason for referral (narrative)* Consultation (Routine) - New Request Specialty Diagnoses / Procedures Referred By Rainer ramos Referred To Contact Neurologic Surgery Diagnoses Jeavons syndrome Andi Smith MD [address] [place] [address] Referral ID Status Reason Start Date Expiration Date V isits Requested Visits Authorized [id number] New Request 12/10/2022 01/04/2024 1 1 [facility] Summary Purpose Family History No Family History Records Found Relationship Condition Age at Onset Recorded Date/T jorge grandparent Malignant neoplasm Unknown Advance Directives No Advanced Directives Records Found Advance Directive Response Recorded Date/ Time Advance Directives No July 06, 024 12:12pm Reason for Referral Specialty Diagnoses / Procedures Referred By Rainer ramos Referred To Contact Diagnoses Generalized nonconvulsive epilepsy Petra Silveira, MED AIDE-SLATE ROOFER HELPER [address] [place] [address] Referral ID Status Reason Start Date Expiration Date V isits Requested Visits Authorized [id number] Pending Review 1 1 Specialty Diagnoses / Procedures Referred By Rainer ramos Referred To Contact Procedures DVT/VTE RISK ASSESSMENT Andi Smith MD [address] [place] [address] Referral ID Status Reason Start Date Expiration Date V isits Requested Visits Authorized [id number] New Request 01/15/2023 02/09/2024 1 1 Chief Complaint and Reason for Visit Chief Complaint sinus infection Reason for Visit Maxillary sinusitis Chief Complaint sinus infection sinus infection Reason for Visit Maxillary sinusitis Maxillary sinusitis Chief Complaint Admit Date Unknown July 20, 2024 9:00a m Additional Source Comments INFORMATION SOURCE (unrecogn ized section and content) DATE CREATED AUTHOR 09/03/2017 [facility] DATE CREATED AUTHOR AUTHOR'S ORGANIZ ATION 03/28/2018 [facility] DATE CREATED AUTHOR AUTHOR'S ORGANIZ ATION 07/02/2018 [facility] DATE CREATED AUTHOR AUTHOR'S ORGANIZ ATION 10/02/2019 [facility] DATE CREATED AUTHOR AUTHOR'S ORGANIZ ATION 06/01/2022 [facility] DATE CREATED AUTHOR AUTHOR'S ORGANIZ ATION 04/24/2023 [facility] EP[facility] DATE CREATED AUTHOR AUTHOR'S ORGANIZ ATION 06/07/2024 [facility] DATE CREATED AUTHOR AUTHOR'S ORGANIZ ATION 07/21/2024 [facility] EPIC DATE CREATED AUTHOR AUTHOR'S ORGANIZ ATION 07/28/2024 [facility] Reason for Visit (unrecogniz ed section and content) Reason Comments Follow-up Reason Comments Follow-up Reason Comments New Patient 32 y.o female here f or consult. Specialty Diagnoses / Procedures Referred By Rainer ramos Referred To Contact Neurologic Surgery Diagnoses Jeavons syndrome S/P placement of VNS (vagus nerve stimulation) device Petra Silveira, MED AIDE-SLATE ROOFER HELPER [address] [place] [address] Referral ID Status Reason Start Date Expiration Date V isits Requested Visits Authorized [id number] New Request 09/19/2022 10/14/2023 1 1 Reason Comments Preoperative Assessment Specialty Diagnoses / Procedures Referred By Contac t Referred To Contact Neurologic Surgery Diagnoses Jeavons syndrome Andi Smith MD [address] [place] [phone] Referral ID Status Reason Start Date Expiration Date V isits Requested Visits Authorized [id number] New Request 12/10/2022 01/04/2024 1 1 Specialty Diagnoses / Procedures Referred By Contac t 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 Care Teams (unrecognized sec tion and content) Janitorial Services Supervisor Relationship Specialty Start Date End Date Tim Rolon DO [address] [place] [address] PCP - General Internal Medicine 09/19/22 Petra Silveira, MED AIDE-SLATE ROOFER HELPER [address] [place] [address] Certified Nurse Practitioner 11/08/22 Janitorial Services Supervisor Relationship Specialty Start Date End Date Tim Rolon DO [address] [place] [address] PCP - General Internal Medicine 09/19/22 Petra Silveira, MED AIDE-SLATE ROOFER HELPER [address] [place] [phone] Certified Nurse Practitioner 11/08/22 Janitorial Services Supervisor Relationship Specialty Start Date End Date Tim Rolon DO [address] [place] [address] PCP - General Internal Medicine 09/19/22 Petra Silveira, MED AIDE-SLATE ROOFER HELPER [address] [place] [phone] Certified Nurse Practitioner 11/08/22 Janitorial Services Supervisor Relationship Specialty Start Date End Date Tim Rolon DO [address] [place] [phone] PCP - General Internal Medicine 09/19/22 Petra Silveira, MED AIDE-SLATE ROOFER HELPER [address] [place] [phone] Certified Nurse Practitioner 11/08/22 Janitorial Services Supervisor Relationship Specialty Start Date End Date Tim Rolon DO [address] [place] [address] PCP - General Internal Medicine 09/19/22 Petra Silveira, MED AIDE-SLATE ROOFER HELPER [address] [phone] Certified Nurse Practitioner 11/08/22 Janitorial Services Supervisor Relationship Specialty Start Date End Date Tim Rolon DO [address] [place] [address] PCP - General Internal Medicine 09/19/22 Petra Silveira APRN-SLATE ROOFER HELPER [address] [place] [phone] Certified Nurse Practitioner 11/08/22 Janitorial Services Supervisor Relationship Specialty Start Date End Date Tim Rolon MD [address] [place] [address] PCP - General Internal Medicine 08/08/22 Janitorial Services Supervisor Relationship Specialty Start Date End Date Tim Rolon DO [address] [place] [address] PCP - General Internal Medicine 09/19/22 Petra Silveira, NOLBERTO-SLATE ROOFER HELPER [address] [place] [phone] Certified Nurse Practitioner 11/08/22 Team Status: Active [...] End: July 07, 2023 Kristine Oneill APRN [employer] FINANCIAL APPLICATION DEVELOPER-C Attending Provider Act duncan Start: July 07, 2023 End: July 07, 2023 Janitorial Services Supervisor Relationship Specialty Start Date End Date Tim Rolon DO [address] [place] [address] PCP - General Internal Medicine 09/19/22 Petra Silveira, MED AIDE-SLATE ROOFER HELPER [address] [phone] Certified Nurse Practitioner 11/08/22 Team [...] End: September 24, 2023 Kristine Oneill APRN [employer] FINANCIAL APPLICATION DEVELOPER-C Attending Provider Act duncan Start: September 24, 2023 End: September 24, 2023 Janitorial Services Supervisor Relationship Specialty Start Date End Date Tim Rolon DO [address] [place] [address] PCP - General Internal Medicine 09/19/22 Petra Silveria APRN-SLATE ROOFER HELPER [address] [phone] Certified Nurse Practitioner 11/08/22 Janitorial Services Supervisor Relationship Specialty Start Date End Date Tim Rolon MD [address] [place] [address] PCP - General Internal Medicine 08/08/22 Janitorial Services Supervisor Relationship Specialty Start Date End Date Tim Rolon MD [address] [place] [address] PCP - General Internal Medicine 08/08/22 Janitorial Services Supervisor Relationship Specialty Start Date End Date Tim Rolon MD [address] [place] [phone] PCP - General Internal Medicine 08/08/22 Janitorial Services Supervisor Relationship Specialty Start Date End Date Tim Rolon DO [address] [place] [phone] PCP - General Internal Medicine 08/08/22 Janitorial Services Supervisor Relationship Specialty Start Date End Date Tim Rolon DO [address] [place] [address] PCP - General Internal Medicine 08/08/22 Team Status: Active Member Role Status Dates Tim Rolon DO Primary Care Provide r, Attending Provider Active Start: May 26, 2024 Team Status: Active Member Role Status Dates Tim Rolon DO Primary Care Provide r, Attending Provider Active Start: June 28, 2024 Team Status: Inactive Member Role Status Dates Donovan Burks DO Attending Provider Active Start : July 20, 2024 End: July 20, 2024 Scheduled Active and Recently Administ ered Medications [...] - Comment: mixed 1:1 w/Lido with epi 1:[id number]) ceFAZolin (ANCEF) 2 g in dextrose 100 mL premix IVPB (COMPLETED) 2 g, Intravenous, Administer over 30 Minutes, SUPPLY CHAIN PROJECT MANAGER TO PROCEDURE, 1 dose, Starting on Fri01/15/23 at 0758, Until Discontinued, Other, Surgical Prophylaxis, Initiate antibiotic administration 30-60 minutes prior to surgical incision and complete administration prior to surgical incision., Pre-op/Pre-Proc 0955 (Given - Provid er: Geraldo Marion, MED AIDE-CENTRAL OFFICE INSTALLER) lidocaine-epinephrine 2 %-1:[id number] injection (CANCELED) NEEDED, Starting on Fri01/15/23 at [...] Order-specific weight), Intravenous, Administer over 1 Hours, SUPPLY CHAIN PROJECT MANAGER TO PROCEDURE, 1 dose, Starting on Fri01/15/23 at 0000, Until Discontinued, Other, Surgical Prophylaxis, Infusion must complete prior to surgical incision. Initiate antibiotic administration 60-120 minutes prior to surgical incision (depending on Administer Over Time). Extravasation Risk, Pre-op/Pre-Proc 911 ($$New Bag$$ - Provider: Jeevan Donovan RN) [...] sectionGoals may be documented in an alternate sectionGoals may be documented in an [...] BE BASED ON THE PRIMARY CLINICAL RECORDS. [facility] [employer] provides no warranty or guarantee of the accuracy or completeness of information in this document.
--- OUTSIDE RECORDS SUMMARY | 2024-07-28 09:55 | XMS_ITS | Encounter Summary ---
Author Organization [facility] Address [address] [place] [address] Care Team Providers Care Intermodal Owner Operator Truck Driver Name Role Phone Tim Rolon DO Primary Care Provider [phone] Reason for Visit * Reason Comments Med Refill Encounter Details Date Type Department Care Team (Late st Contact Info) Description 01/29/2024 [facility]ill [facility] [address] [facility] [place], [phone] Donovan Burks [address] [place] [place], [facility]11 Female infertility; Anovulation Social History Tobacco Use Types Packs/Day [...] encounter Miscellaneous Notes * Telephone Encounter - Gabbie Lane LPN - 01/29/2024 11:33 AM EST Sent previously 01-29-2024 documented in this encounter Plan of Treatment Upcoming Encounters Date Type Department Care Team (Late st Contact Info) Description 10/28/2024 9:00 AM EDT Office Visit [facility] [address] [place] [address] Donovan Burks DO [address] [facility] [address] [place] [place], [place] [phone] documented as of this encounter Visit Diagnoses Diagnosis Female infertility Female infertility of unspecified origin Anovulation Female infertility associated with anovulation documented in this encounter Care Teams Intermodal Owner Operator Truck Driver Relationship Specialty Start Date End Date Tim Rolon DO [address] [facility] [place] [address] PCP - General Internal Medicine 08/08/22 documented as of this encounter
--- OUTSIDE RECORDS SUMMARY | 2024-07-28 09:55 | XMS_ITS | Encounter Summary ---
Author Organization [facility] Address [address] [place] [address] Care Team Providers Care Physician Obstetrician Name Role Phone Tim Rolon DO Primary Care Provider [phone] Encounter Details Date Type Department Care Team (Late Contact Info) Description 10/28/2023 Orders Only [facility] [address] [facility] [place] [address] Francine Byrd MA [address] [place] [address] Social History Tobacco Use Types Packs/Day Years [...] Visit [facility] [address] [place] [address] Donovan Burks DO [address] [place] [address] documented as of this encounter Procedures Procedure Name Priority Date/Time Associated Diagnosis Comments PAP SMEAR Routine 10/20/2023 12:00 AM EDT documented in this encounter Results * Pap Smear (10/20/2023 12:00 AM EDT) Swab Cervical swab / Unknown us Donovan Burks DO LAB CYTOLOGY ORDERABLES Final Re sult EXTERNAL LAB documented in this encounter Visit Diagnoses Not on filedocumented in this encounter Care Teams Physician Obstetrician Relationship Specialty Start Date End Date Tim Rolon DO [address] [place] [address] PCP - General Internal Medicine 08/08/22 documented as of this encounter
--- OUTSIDE RECORDS SUMMARY | 2024-07-28 09:55 | XMS_ITS | Clinical Summary ---
Author Organization [facility] Address [address] [place] [address] Care Team Providers Care Investment Officer Name Role Phone Tim Rolon DO Primary Care Provider [phone] Allergies Active Allergy Reactions Criticality Noted Date Comments Other Runny nose Medium 03/15/2011 Other Reaction(s): Nasal Congestion Pollen Extract Runny nose Medium 08/21/2016 Other Reaction(s): Congestion Medications loratadine-pseu doephedrine ER (Claritin-D 12-hour) 5-120 MG 12 hr tablet Take 1 tablet by mouth in the morning and 1 tablet before bedtime. Do not crush, chew, or split. . Active cloBAZam (Onfi) 20 MG tablet Take by mouth. Active sertraline (Zoloft) 100 MG tablet Take 150 mg by mouth at bedtime Active metFORMIN (Glucophage) 500 MG tablet Take 500 mg by mouth in the morning. Take with meals. Active folic acid (Folvite) 1 MG tablet Take by mouth Daily. Active MV-Min-Fe Fum-FA-DHA ( 1 PO) Take by mouth. Active LORazepam (Ativan) 0.5 MG tablet Take by mouth. Active Multiple Vitamins-Minera ls (CULTURELLE PROBIOTICS + MULTIV PO) Take by mouth Active Calcium Carb-Cholecalci ferol 600-12.5 MG-MCG capsule 4 Active escitalopram (Lexapro) 20 MG tablet 1 tablet Orally at bedtime Active lamoTRIgine (LaMICtal XR) 300 mg tablet sustained-relea se 24 hour 24 hr tablet Take 300 mg by mouth at bedtime Active loratadine (Claritin) 10 MG tablet Take 10 mg by mouth Daily as needed Active metFORMIN XR (Glucophage-XR) 500 MG 24 hr tabletIndicatio ns:PCOS (polycystic ovarian syndrome) TAKE 1 TABLET BY MOUTH EVERY DAY WITH EVENING MEAL 90 tablet 3 5 Active Clomid 50 MG tabletIndicatio ns:Anovulation TAKE 2 TABLETS BY MOUTH ON DAYS 3-7 OF CYCLE 10 tablet 5 Active clomiPHENE (Clomid) 50 MG tabletIndicatio ns:Anovulation Take 2 tablets (100 mg) by mouth Daily for 5 days 10 tablet 5 025 Discontinued clomiPHENE (Clomid) 50 MG tabletIndicatio ns:Anovulation, Female infertility Take 2 tablets (100 mg) by mouth Daily for 5 days 10 tablet 5 025 Active Problems Problem Noted Date Diagnosed Date PCOS (polycystic ovarian syndrome) 12/10/2022 Assessment & Plan (12/10/2022 8:42 AM EDT): Pt consented to telehealth visit. Reviewed labs with pt in great detail. Pt AMH above 2, progesterone at 17. Discussed fertility with pt and answered all questions in detail. Pt to continue with plan of care and if starts period will call in Femara. Pt to call office if needed in interim. Encounters Date Type Department Care Team Description 07/20/2024 11:10 AM EDT Office Visit [facility] [address] [place] [address] Donovan Burks, DO Skin tag 07/20/2024 External Result Encounter [facility] External Department Unsolicited Donovan Burks, DO 07/20/2024 Bamboo flowsheet [facility] [address] [place] [address] Donovan Burks, DO 07/12/[address] [facility] [address] [place] [address] Donovan Burks, DO 07/12/2024 Refill [facility] [address] [place] [phone] Donovan Burks, Anovulation 06/28/2024 Clinisync Result Encounter [facility] External Department Unsolicited Donovan Burks, DO 06/08/[address] [facility] [address] [place] [address] Shara Hopper, DAY WORKER 05/26/2024 Clinisync Result Encounter [facility] External Department Unsolicited Donovan Burks, DO 05/23/[address] [facility] [address] [place] [address] Donovan Burks, PCOS (polycystic ovarian syndrome) 05/06/[address] [facility] [address] [place] [address] Donovan Burks, Female infertility; Anovulation from Last 3 Months Family History Medical History Relation Name Comments No Known Problems Brother No Known Problems Father Hypertension Mother Relation Name Status Comments Brother Alive Father Alive Mother Alive Social History Tobacco Use Types Packs/Day Years Used Date Smoking Tobacco: Never Smokeless Tobacco: Never Tobacco Cessation:Counseling Given: Not Answered Alcohol Use Standard Drinks/Week Comments Not Asked 0 (1 standard drink = 0.6 oz pur e alcohol) Occasional alcohol use Comments No Sex and Gender Information Value Date Recorded Sex Assigned at Not on file Legal Sex Female 11:21 PM EDT Gender Identity Not on file Sexual Orientation Not on file Last Filed Vital Signs Vital Sign Reading Time Taken Comments Blood Pressure 118/70 07/20/2024 11:33 AM EDT Pulse 88 10/15/2023 3:15 PM EDT Temperature 36.6 C (97.8 F) 10/15/2023 3:15 PM EDT Respiratory Rate - - Oxygen Saturation 98% 10/15/2023 3:15 PM EDT Inhaled Oxygen Concentration - - Weight 89.8 kg (198 lb) 07/20/2024 11:33 AM EDT Height 161.3 cm (5' 3.5 ) 08/08/2022 10:30 AM ED T Body Mass Index 34.52 08/08/2022 10:30 AM EDT Plan of Treatment Upcoming Encounters Date Type Department Care Team (Late st Contact Info) Description 10/28/2024 9:00 AM EDT Office Visit [facility] [address] [facility] [place] [phone] KimmieSusiey, DO [address] [facility] [place] [address] Procedures Procedure Name Priority Date/Time Associated Diagnosis Comments PATHOLOGY REQUEST FOR LAB HELGA Routine 07/20/2024 12:00 AM EDT ALL PROGESTERONE Routine 06/28/2024 4:43 PM EDT ALL PROGESTERONE Routine 05/26/2024 4:58 PM EDT from Last 3 Months Results * PATHOLOGY REQUEST FOR LAB HELGA (07/20/2024 12:00 AM EDT) PATHOLOGY REQUEST FOR LAB HELGA 07/27/2024 9:00 AM EDT [facility] Comment:See report. Scanned copy available in EMR. Other Topography unknown / Unknown 07/20/2024 07/21/2024 1:15 PM EDT Narrative [facility] - 07/27/2024 9:00 AM EDT SKIN TAG Donovan Burks DO LAB BLOOD ORDERABLES Final Resul t [facility] [address] [place] [address], [facility] [address] [place] [address] * ALL PROGESTERONE (06/28/2024 4:43 PM EDT) Only the most recent of2 resultswithin the time period is included. PROGESTERONE 32.1 . ng/mL [facility] Comment: Follicular phase 0.1 - 0.9 Luteal phase 1.8 - 23.9 Ovulation phase 0.1 - 12.0 First trimester 11.0 - 44.3 Second trimester 25.4 - 83.3 Third trimester 58.7 - 214.0 Postmenopausal 0.0 - 0.1 Performed at: - [facility] [address] [id number] Nuclear Scientist: Ino Dougherty PhD, Phone: [phone] 06/28/2024 4:43 PM EDT 06/28/2024 4:46 PM EDT Narrative [facility] - 06/30/2024 4:07 AM EDT Donovan Burks DO [facility] Final Result [facility] from Last 3 Months Insurance [employer] MED[employer] Care Teams Investment Officer Relationship Specialty Start Date End Date Tim Rolon DO [address] [place] [address] PCP - General Internal Medicine 08/08/22
--- OUTSIDE RECORDS SUMMARY | 2024-07-28 09:55 | XMS_ITS | Encounter Summary ---
Author Organization [facility] Address [address] [facility] [place] [id number] Care Team Providers Care Chenille Machine Operator Name Role Phone Tim Rolon DO Primary Care Provider [phone] Encounter Details Date Type Department Care Team (Late Contact Info) Description 07/20/2024 Bamboo flowsheet [facility] OB [address] [facility] [place] [phone] [address] [place] [address] Social History Tobacco Use Types Packs/Day Years [...] EDT Office Visit [facility] OB [address] [place] [phone] Donovan Burks [address] [phone] documented as of this encounter Visit Diagnoses Not on filedocumented in this encounter Care Teams Chenille Machine Operator Relationship Specialty Start Date End Date Tim Rolon DO [address] [place] [phone] PCP - General Internal Medicine 08/08/22 documented as of this encounter
--- OUTSIDE RECORDS SUMMARY | 2024-07-28 09:55 | XMS_ITS | Clinical Summary ---
Author Organization [facility] Address [address] [place] [address] Care Team Providers Care Director Of Midwifery/Staff Midwife Name Role Phone Pcp, No Primary Care Provider [phone] Allergies Active Allergy Reactions Criticality Noted Date Comments Environmental Runny Nose,Nasal Congestion 03/15 Medications LORATADINE 10 mg oral tablet take by mouth once daily. prn Active etonogestrel (NEXPLANON) 68 mg subdermal sejal 68 mg by Subdermal route. Active [facility] UNIDENTIFIED MED (UNIDENTIFIED MEDICATION) Vitamin- Calcium/D3/mine ral one daily Active MUCOSAL ATOMIZATION DEVICE Use as directed with midazolam 2 Device 1 02/12/2018 10:53 AM EST 8 Active Syringe Accessory (BLUNT PLASTIC CANNULA) Misc Misc Use as directed with midazolam 2 Each 1 02/12/2018 10:53 AM EST 8 Active Syringe, Disposable, 3 mL Misc Syrg Use as directed with midazolam 2 Each 1 02/12/2018 10:53 AM EST 8 Active acetaminophen (TYLENOL) 325 mg oral tablet Take 2 tablets by mouth every 6 hours as needed for Pain. 50 tablet 9 Active ibuprofen (MOTRIN IB) 200 mg oral tablet Take 2 tablets by mouth every 6 hours as needed for Pain. Begin 48 hours after surgery 30 tablet 9 Active midazolam, nasal, (VERSED) 5 mg/mL nasal solutionIndicatio ns:Generalized nonconvulsive epilepsy Administer 1 mL in each nostril as needed for seizures lasting longer than 5 minutes or 3 generalized tonic clonic seizures in 24 hrs. 4 mL 1 02/18/2019 11:20 AM EST 9 Active escitalopram oxalate (LEXAPRO) 20 mg oral tablet Take 1 tablet by mouth once daily. 90 tablet 1 9 Active Syringe, Disposable, 3 mL Misc Syrg Use as directed with midazolam. 2 Each 1 02/18/2019 11:20 AM EST 9 Active MUCOSAL ATOMIZATION DEVICE Use as directed with midazolam. 2 Device 1 02/18/2019 11:20 AM EST 9 Active Syringe Accessory (BLUNT PLASTIC CANNULA) Misc Misc Use as directed with midazolam. 2 Each 1 02/18/2019 11:20 AM EST 9 Active cloBAZam (ONFI) 20 mg oral tabletIndications :Generalized nonconvulsive epilepsy Take 1 tablet by mouth once daily. 30 tablet 5 9 Active rufinamide (BANZEL) 400 mg oral tabletIndications :Generalized nonconvulsive epilepsy Take 3 tablets by mouth twice daily. 180 tablet 5 0 Active divalproex ER 250 mg tablet,extended release 24 hr (Depakote ER)Indications:Ge neralized nonconvulsive epilepsy Take 1 tablet by mouth every night at bedtime. 90 tablet 2 0 Active folic acid 1 mg tablet (Folvite) Take 1 tablet by mouth once daily. 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 Immunizations Immunization Administration Dates Next Due Influenza, seasonal, injectable, preservative fr ee 01/04/2014 Family History Medical History Relation Comments Osteoporosis Maternal Grandmother Cancer Paternal Grandfather Prostate Relation Status Comments Maternal Grandmother Paternal Grandfather Social History Tobacco Use Types Packs/Day Years Used Date Smoking Tobacco: Never Smokeless Tobacco: Never Alcohol Use Standard Drinks/Week Comments Yes 0 (1 standard drink = 0.6 oz pur e alcohol) alcohol on rare occasions Comments Unknown Sex and Gender Information Value Date Recorded Sex Assigned at Not on file Legal Sex Female 11:17 PM EST Gender Identity Not on file Sexual Orientation Not on file Last Filed Vital Signs Vital Sign Reading Time Taken Comments Blood Pressure 130/90 09/30/2019 9:01 AM EDT Pulse 106 09/30/2019 9:01 AM EDT Temperature 36.9 C (98.4 F) 09/30/2019 9:01 AM EDT Respiratory Rate 20 03/27/2018 11:3 1 AM EST Oxygen Saturation 96% 03/27/2018 11: 31 AM EST Inhaled Oxygen Concentration - - Weight 100.3 kg (221 lb 1.9 oz) 09/30/2019 9:01 AM EDT Height 160 cm (5' 3 ) 09/30/2019 9:01 AM EDT Body Mass Index 39.17 09/30/2019 9:01 AM EDT Plan of Treatment Health Maintenance Due Date Last Done Comments MMR Vaccine (1 of 1 - Standa rd series) 1993 DTaP/Tdap/Td Vaccine (1 - Tdap) 07/15/1999 Varicella Vaccine (1 of 2 - 13+ 2-dose series) 2005 Hepatitis B Vaccine (1 of 3 - 19+ 3-dose series) 07/15/2011 FOLIC ACID COUNSELING 07/09/2019 07/08/2018 COVID-19 Vaccine ( - 2023-2 5 season) 2023 Influenza Vaccine (#1) 2023 01/04/2014 HIB Vaccine Aged Out No longer eligi ble based on patient's age to complete this topic HPV Vaccine Aged Out No longer eligi ble based on patient's age to complete this topic Hepatitis A Vaccine Aged Out No longe r eligible based on patient's age to complete this topic IPV Vaccine Aged Out No longer eligi ble based on patient's age to complete this topic Meningococcal ACWY Vaccine Aged Out N o longer eligible based on patient's age to complete this topic Meningococcal B Vaccine Aged Out No l onger eligible based on patient's age to complete this topic Pneumococcal Vaccine Aged Out No long er eligible based on patient's age to complete this topic RSV, Nirsevimab Immunization Aged Out No longer eligible based on patient's age to complete this topic Rotavirus Vaccine Aged Out No longer eligible based on patient's age to complete this topic Medical Devices Implanted Type Area Quill Cleaning Machine Operator Device Identifier Shelf Expiration Date Model / Serial / Lot Screws Description:6 screws implant ed Nexplanon Sentiva Battery Model 1000 Implanted:Qty: 1 on 03/27/2018 by oJse D Pitts MD at [facility] 09/03/2019 1000 / [id number] / Explanted Type Area Quill Cleaning Machine Operator Device Identifier Shelf Expiration Date Model / Serial / Lot Vagal Nerve Stimulator Explanted:Qty: 1 on 03/27/2018 at [facility] Insurance [employer] * Guarantor: Rowena Byers Account Type Relation to Patient Date of Phone Billing Address Personal/Family Self 1990 [address] [place] [address] [facility] [place] [address] [place] [address] [facility] [address] [address] Care Teams Director Of Midwifery/Staff Midwife Relationship Specialty Start Date End Date Pcp, [place] [address] PCP - General 09/29/19
--- OUTSIDE RECORDS SUMMARY | 2024-07-28 09:55 | XMS_ITS | Encounter Summary ---
Author Organization [facility] Address [address] [place] [address] Care Team Providers Care Corporate Travel Coordinator Name Role Phone Pcp, No Primary Care Provider [phone] Encounter Details Date Type Department Care Team (Late st Contact Info) Description 12/27/2010 Orders Only Neurology [facility] Main [address] [place] [address] Historical, Provider Social History Tobacco Use Types Packs/Day Years Used Date Smoking Tobacco: Never Assessed Comments Unknown Sex and Gender Information Value Date Recorded Sex Assigned at Not on file Legal Sex Female 11:17 PM EST Gender Identity Not on file Sexual Orientation Not on file documented as of this encounter Plan of Treatment Not on file documented as of this encounter Procedures Procedure Name Priority Date/Time Associated Diagnosis Comments VALPROIC ACID LEVEL Routine 12/12/2010 AST Routine 12/12/2010 ALT Routine 12/12/2010 COMPREHENSIVE METABOLIC PANEL Routine 12/11/2010 MONO SCREEN Routine 12/10/2010 CBC W/AUTOMATED DIFF, REFLEX TO MANUAL Routine 12/10/2010 documented in this encounter Results * ALT (12/12/2010) Blood us Provider Historical CHEMISTRY ORDERABLES Final R esult Performing Organization Address [facility] de Phone Number EXTERNAL LAB * AST (12/12/2010) Blood us Provider Historical CHEMISTRY ORDERABLES Final R esult Performing Organization Address [facility] de Phone Number EXTERNAL LAB * VALPROIC ACID LEVEL (12/12/2010) Provider Historical DRUG LEVEL ORDERABLES Final Result Performing Organization Address [facility] de Phone Number EXTERNAL LAB * Comprehensive Metabolic Panel (Lytes/BUN/Creat/Gluc/Alb/Total Bili/Ca/Alk Phos/AST/ALT/Total Prot) (12/11/2010) Blood Provider Historical CHEMISTRY ORDERABLES Final R esult Performing Organization Address [facility] de Phone Number EXTERNAL LAB * MONO SCREEN (12/10/2010) Blood Provider Historical IMMUNOLOGY/SEROLOGY ORDERABL ES Final Result Performing Organization Address [facility] de Phone Number EXTERNAL LAB * CBC W/AUTOMATED DIFF, REFLEX TO MANUAL (12/10/2010) Blood Provider Historical HEMATOLOGY ORDERABLES Final Result Performing Organization Address [facility] de Phone Number EXTERNAL LAB documented in this encounter Visit Diagnoses Not on filedocumented in this encounter Care Teams Corporate Travel Coordinator Relationship Specialty Start Date End Date Pcp, No [place] [address] PCP - General 09/29/19 documented as of this encounter
--- OUTSIDE RECORDS SUMMARY | 2024-07-28 09:56 | XMS_ITS | Encounter Summary ---
Author Organization [facility] Address [address] [place] [address] Care Team Providers Care Motor Vehicle Dispatcher Name Role Phone Tim Rolon DO Primary Care Provider Encounter Details Date Type Department Care Team (Late st Contact Info) Description 06/27/2023 Clinisync Result Encounter [facility] External Department Unsolicited Yolanda Burks, DO [address], [facility] Social History Tobacco Use Types Packs/Day Years [...] [facility] BCP OB [address] [place] [address] Yolanda Burks DO [address], [place] [id number] documented as of this encounter Procedures Procedure Name Priority Date/Time Associated Diagnosis Comments FL HYSTEROSALPINGOGRAPHY 024 11:28 AM EDT documented in this encounter Results * FL HYSTEROSALPINGOGRAPHY (06/27/2023 11:28 AM EDT) Anatomical Region Laterality Modality Other 06/27/2023 11:2 8 AM EDT Narrative 06/27/2023 11:30 AM EDT [address] [address] Fluoroscopy Report Signed Patient: ROWENA GUADALUPE MR#: [id number] : 1990 Acct:[id number] Age/Sex: 32 / F ADM Date: 06/27/23 Loc: LAB Attending Dr: Yolanda Burks D.O. Ordering Physician: Yolanda Burks D.O. Date of Service: 06/27/23 Procedure(s): FL hysterosalpingography Accession Number(s): [id number] cc: Tim Rolon D.O.; Yolanda Burks D.O. 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 TECHNIQUE: Informed consent was obtained. A sterile vaginal speculum was introduced and, following cleansing of the cervix, a balloon-tipped catheter was inserted into the endometrial cavity. The procedure was then completed in the usual manner with water-soluble contrast. Standard level fluoroscopic mode of operation utilized. FINDINGS: FALLOPIAN TUBES: Slight delay in spillage of contrast from left fallopian tube. Fallopian tubes are now patent bilaterally. ENDOMETRIAL CAVITY: No scarring, filling defects, or dilatation. OTHER: Negative. FL/FL hysterosalpingography IMPRESSION: 1. Normal appearance of uterus. 2. Bilateral patent fallopian tubes (initially there was delay in spillage of contrast from left fallopian tube). Electronically authenticated by: FELIX SANTIAGO Date: 06/27/2023 11:28 Dictated By: Felix Santiago M.D. Signed By: 06/27/23 1130 DD/ 1128 TD/TT: Base Filler Operator: Procedure Note Radiology, Radiologist, MD - 06/27/2023 [place] [address] Fluoroscopy Report Signed Patient: ROWENA GUADALUPE BMR#: [id number] : 1990Acct:[id number] Age/Sex: 32 / FADM Date: 06/27/23 Loc: LAB Attending Dr: Yolanda Burks D.O. Ordering Physician: Yolanda Burks D.O. Date of Service: 06/27/23 Procedure(s): FL hysterosalpingography Accession Number(s): [id number] cc: Tim Rolon D.O.; Yolanda Burks D.O. 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 TECHNIQUE: Informed consent was obtained. A sterile vaginal speculum was introduced and, following cleansing of the cervix, a balloon-tippedcatheter was inserted into the endometrial cavity. The procedure was then completedin the usual manner with water-soluble contrast. Standard level fluoroscopicmode of operation utilized. FINDINGS: FALLOPIAN TUBES: Slight delay in spillage of contrast from left fallopian tube. Fallopian tubes are now patent bilaterally. ENDOMETRIAL CAVITY: No scarring, filling defects, or dilatation. OTHER: Negative. FL/FL hysterosalpingography IMPRESSION: 1. Normal appearance of uterus. 2. Bilateral patent fallopian tubes (initially there was delay in spillageof contrast from left fallopian tube). Electronically authenticated by: FELIX SANTIAGO Date: 06/27/2023 11:28 Dictated By: Felix Santiago M.D. Signed By:06/27/23 1130 DD/ 1128 TD/TT: Base Filler Operator: us Yolanda Burks DO [facility] Final Result documented in this encounter Visit Diagnoses Not on filedocumented in this encounter Care Teams Motor Vehicle Dispatcher Relationship Specialty Start Date End Date Tim Rolon DO [facility] [place] [address] PCP - General Internal Medicine 08/08/22 documented as of this encounter
--- OUTSIDE RECORDS SUMMARY | 2024-07-28 09:56 | XMS_ITS | Clinical Summary ---
Author Organization [facility] Address [address] [place], [place] [address] Care Team Providers Care Drywall Taper Helper Name Role Phone Tim Rolon DO Primary Care Provider Donovan Burks DO Unavailable [phone] Social History Tobacco Use Types Packs/Day Years Used Date Smoking Tobacco: Never Assessed Comments Unknown Sex and Gender Information Value Date Recorded Sex Assigned at Not on file Legal Sex Female 2:43 PM EDT Gender Identity Not on file Sexual Orientation Not on file Plan of Treatment Upcoming Encounters Date Type Department Care Team (Latest Contact Info) Description 10/01/2024 10:00 AM EDT Office Visit Reproductive Endocrinology Infertility [address] [place] [address] Tomer Clements MD [address] [place] [address] Donovan Burks's office referring the patient to be seen in [facility]ertility specialist[facility] for female infertility, PCOS, fertility planning. Referral and/or order can be found in Scanned Docs 07/22/24.. Health Maintenance Due Date Last Done Comments Anxiety Screening 2010 Depression Screening 2010 HIV Screening 2010 Hepatitis C Screening 2010 DTaP,Tdap,Td Vaccine (1 - Tdap) 07/15/2011 Hepatitis B Vaccine (1 of 3 - 19+ 3-dose series) 07/14 Cervical Cancer Screening 2013 Covid-19 Vaccine ( season) 2023 Influenza Vaccine (Season Ended) 2024 Insurance [facility] MEDICAID Care Teams Drywall Taper Helper Relationship Specialty Start Date End Date Tim Rolon DO [address] [place] [address] PCP - General Internal Medicine 07/26/24 Donovan Burks DO [address] [place] [address] [place] [address] Referring History Teacher 07/26/24
--- OUTSIDE RECORDS SUMMARY | 2024-07-28 09:56 | XMS_ITS | Encounter Summary ---
Author Organization [facility] Address [address] [place] [address] Care Team Providers Care Bicycle Ii Assembler Name Role Phone Tim Rolon DO Primary Care Provider [phone] Encounter Details Date Type Department Care Team (Late st Contact Info) Description 06/27/2023 Clinisync Result Encounter [facility] External Department Unsolicited Yolanda Burks, DO [address], [id number] Social History Tobacco Use Types Packs/Day Years [...] Visit [facility] BCP OB [address] [place] [address] Yolanda Burks DO [address], [place] [id number] documented as of this encounter Procedures Procedure Name Priority Date/Time Associated Diagnosis Comments FL HYSTEROSALPINGOGRAM 11:28 AM EDT documented in this encounter Results * FL HYSTEROSALPINGOGRAM (06/27/2023 11:28 AM EDT) Anatomical Region Laterality Modality Other 06/27/2023 11:2 8 AM EDT Narrative 06/27/2023 11:30 AM EDT [address] [address] Fluoroscopy Report Signed Patient: ROWENA GUADALUPE MR#: [id number] : 1990 Acct:[id number] Age/Sex: 32 / F ADM Date: 06/27/23 Loc: LAB Attending Dr: Yolanda Burks D.O. Ordering Physician: Yolanda Burks D.O. Date of Service: 06/27/23 Procedure(s): FL Hysterosal cath placement Accession Number(s): [id number] cc: Tim Rolon D.O.; Yolanda Burks D.O. [place] [address] Patient Name: ROWENA DRAKE MRN: [id number] date: 1990 Sex: F Assigned Patient Location: LAB Current Patient Location: LAB Accession/Order Number: [id number] Exam Date: 06/27/2023 10:15 Report Date: 06/27/2023 11:28 At the request of: YOLANDA BURKS Procedure: FL Hysterosal cath placement EXAMINATION: FL hysterosalpingography, FL Hysterosal cath placement [...] filling defects, or dilatation. OTHER: Negative. FL/FL Hysterosal cath placement IMPRESSION: 1. Normal appearance of uterus. 2. Bilateral patent fallopian tubes (initially there was delay in spillage of contrast from left fallopian tube). Electronically authenticated by: FELIX SANTIAGO Date: 06/27/2023 11:28 Dictated By: Felix Santiago M.D. Signed By: 06/27/23 1130 DD/ 1128 TD/TT: Gasser Machine Operator: Procedure Note Radiology, Radiologist, MD - 06/27/2023 [place] [address] Fluoroscopy Report Signed Patient: ROWENA GUADALUPE BMR#: [id number] : 1990Acct:[id number] Age/Sex: 32 / FADM Date: 06/27/23 Loc: LAB Attending Dr: Yolanda Burks D.O. Ordering Physician: Yolanda Burks D.O. Date of Service: 06/27/23 Procedure(s): FL Hysterosal cath placement Accession Number(s): [id number] cc: Tim Rolon D.O.; Yolanda Burks D.O. The [place] [address] Patient Name: ROWENA DRAKE MRN: [id number] date: 1990 Sex: F Assigned Patient Location: LAB Current Patient Location: LAB Accession/Order Number: [id number] Exam Date: 06/27/2023 10:15 Report Date: 06/27/2023 11:28 At the request of: YOLANDA BURKS Procedure: FL Hysterosal cath placement EXAMINATION: FL hysterosalpingography, FL Hysterosal cath placement [...] filling defects, or dilatation. OTHER: Negative. FL/FL Hysterosal cath placement IMPRESSION: 1. Normal appearance of uterus. 2. Bilateral patent fallopian tubes (initially there was delay in spillageof contrast from left fallopian tube). Electronically authenticated by: FELIX SANTIAGO Date: 06/27/2023 11:28 Dictated By: Felix Santiago M.D. Signed By:06/27/23 1130 DD/ 1128 TD/TT: Gasser Machine Operator: us Yolanda Burks DO [facility] Final Result documented in this encounter Visit Diagnoses Not on filedocumented in this encounter Care Teams Bicycle Ii Assembler Relationship Specialty Start Date End Date Tim Rolon [place] [facility] [place] [address] PCP - General Internal Medicine 08/08/22 documented as of this encounter
--- OUTSIDE RECORDS SUMMARY | 2024-07-28 09:56 | XMS_ITS | Clinical Summary ---
Demographics Address [address] [place] [address] Home Phone Mobile Phone Email Address Email Address Preferred Language Setswana Marital Status Single Caodaism Affiliation Unknown Race White Ethnic Group Not or Lati no Author Organization [facility] Address [address] [place] [address] Care Team Providers Care Equine Manager Name Role Phone Jakob Light MD Primary Care Provider [phone] Allergies Active Allergy Reactions Criticality Noted Date Comments Environmental/Seasonal Medium 08/21/2016 Medications Divalproex Sodium (DEPAKOTE PO) Take 500 mg by mouth nightly Active cloBAZam (ONFI) 10 MG TABS tablet Take 10 mg by mouth nightly Active escitalopram (LEXAPRO) 20 MG tablet Take 20 mg by mouth nightly Active etonogestrel (NEXPLANON) 68 MG implant 68 mg by Subdermal route once 04/20/2015 Active NONFORMULARYInd ications:in 3 doses, 5ml in AM, 5ml in 1500, 4ml in PM Take 14 mLs by mouth daily Epidilex (trial medication) Active loratadine (CLARITIN) 10 MG tablet Take 10 mg by mouth daily as needed Active aspirin 325 MG EC tablet Take 1 tablet by mouth daily 21 tablet 7 Active docusate sodium (COLACE) 100 MG capsule Take 1 capsule by mouth daily as needed for Constipation 30 capsule 1 7 Active Additional Information Patient taking differently:100 mg OralDAILY, Reported on 08/20/2016 Handicap Placard MISCIndications :Closed displaced pilon fracture of right tibia with routine healing, subsequent encounter by Does not apply route Duration 5-17-17 thru 02-06-17 1 each 7 Active calcium carbonate (TUMS) 500 MG chewable tablet Take 1 tablet by mouth 2 times daily Active Calcium Citrate (CALCITRATE PO) Take 2 tablets by mouth daily Active folic acid (FOLVITE) 1 MG tablet Take 4 mg by mouth daily Active HYDROcodone-candida taminophen (NORCO) 5-325 MG per tablet Take 1 tablet by mouth every 6 hours as needed for Pain (As needed for pain) . 60 tablet 7 Active NONFORMULARY Active Active Problems Problem Noted Date Diagnosed Date Closed fracture of distal en d of right tibia with routine healing 10/16/2016 Closed fracture of shaft of right tibia and fibu la 07/17/2016 Closed displaced pilon fracture of right tibia 0 07/17/2016 Microscopic hematuria 02/21/2011 Vague seizure disorder 02/21/2011 Family History Medical History Relation Name Comments Arthritis Maternal Grandmother Diabetes Paternal Grandfather Heart Attack Paternal Grandfather Relation Name Status Comments Father Alive Maternal Grandfather Alive Maternal Grandmother Alive Mother Alive Paternal Grandfather Alive Paternal Grandmother Alive Social History Tobacco Use Types Packs/Day Years Used Date Smoking Tobacco: Never Alcohol Use Standard Drinks/Week Comments No 0 (1 standard drink = 0.6 oz pur e alcohol) Comments No Sex and Gender Information Value Date Recorded Sex Assigned at Not on file Legal Sex Female 9:53 AM EST Gender Identity Not on file Sexual Orientation Not on file Last Filed Vital Signs Vital Sign Reading Time Taken Comments Blood Pressure 132/66 02/21/2017 2:45 PM EST Pulse 118 02/21/2017 2:45 PM EST Temperature 36.6 C (97.8 F) 02/21/2017 2:45 PM EST Respiratory Rate 14 02/21/2017 2:45 PM EST Oxygen Saturation 97% 02/21/2017 2:45 PM EST Inhaled Oxygen Concentration - - Weight 78 kg (172 lb) 10/16/2016 1:22 PM EDT Height 160 cm (5' 3 ) 10/16/2016 1:22 PM EDT Body Mass Index 30.47 10/16/2016 1:22 PM EDT Plan of Treatment Not on file Medical Devices Implanted Type Area Mutual Funds Agent Device Identifier Shelf Expiration Date Model / Serial / Lot 32 Kwire Implanted:Qty: 3 on 07/18/2016 by Diallo Padilla MD at [facility] Leg/Ankle /Foot/Toe Right: Ankle Screw Schnz Ext Fix Self [id number] Implanted:Qty: 1 on 07/18/2016 by Diallo Padilla MD at [facility] Screw/[place] te/Nail/R od Right: Ankle [id number] / / Screw Schnz Ext Fix Self [id number] Implanted:Qty: 1 on 07/18/2016 by Diallo Padilla MD at [facility] Screw/[place] te/Nail/R od Right: Ankle SYNTHES-PMM [id number] / / Screw Padmini Shrt Thrd Ss 4.0x28mm Implanted:Qty: 1 on 08/21/2016 at [facility] Screw/[place] te/Nail/R od SYNTHES-PMM [id number] / / Screw Padmini Shrt Thrd Ss 4.0x32mm Implanted:Qty: 1 on 08/21/2016 at [facility] Screw/[place] te/Nail/R od SYNTHES-PMM [id number] / / Screw Padmini Shrt Thrd Ss 4.0x38mm Implanted:Qty: 2 on 08/21/2016 at [facility] Screw/[place] te/Nail/R od SYNTHES-PMM [id number] / / Screw Padmini Shrt Thrd Ss 4.0x40mm Implanted:Qty: 1 on 08/21/2016 at [facility] Screw/[place] te/Nail/R od SYNTHES-PMM [id number] / / Washer Scrw Padmini Ss 4.0x7mm Implanted:Qty: 5 on 08/21/2016 at [facility] Screw/[place] te/Nail/R od SYNTHES-PMM [id number] / / Washer Scrw Padmini Ss 6.5x13mm Implanted:Qty: 2 on 08/21/2016 at [facility] Screw/[place] te/Nail/R od SYNTHES-PMM [id number] / / Explanted Type Area Mutual Funds Agent Device Identifier Shelf Expiration Date Model / Serial / Lot Screw Padmini Shrt Thrd Ss 4.0x30mm Explanted:Qty: 1 on 08/21/2016 at [facility] Screw/Plat e/Nail/Reed SYNTHES-PMM [id number] / / Screw Padmini Shrt Thrd Ss 4.0x36mm Explanted:Qty: 1 on 08/21/2016 at [facility] Screw/Plat e/Nail/Reed SYNTHES-PMM [id number] / / Screw Cortx Slftp Lg Frag 4.5x32mm Implanted:Qty: 1 Explanted:Qty: 1 on 08/21/2016 at [facility] Screw/Plat e/Nail/Reed SYNTHES-PMM [id number] / / Screw Cortx Slftp Lg Frag 4.5x40mm Implanted:Qty: 1 Explanted:Qty: 1 on 08/21/2016 at [facility] Screw/Plat e/Nail/Reed SYNTHES-PMM [id number] / / Screw Cortx Slftp Lg Frag 4.5x42mm Implanted:Qty: 1 Explanted:Qty: 1 on 08/21/2016 at [facility] Screw/Plat e/Nail/Reed SYNTHES-PMM [id number] / / Washer Scrw Padmini Ss 6.5x13mm Explanted:Qty: 1 on 08/21/2016 at [facility] Screw/Plat e/Nail/Reed SYNTHES-PMM [id number] / / Screw Padmini Shrt Thrd Ss 4.0x26mm Explanted:Qty: 1 on 08/21/2016 at [facility] Screw/Plat e/Nail/Reed SYNTHES-PMM [id number] / / Insurance * Guarantor: Rowena Byers Account Type Relation to Patient Date of Phone Billing Address Personal/Family Self 1990 [address] [place] [address] [facility] [address] [place] [address] [facility] [address] [place] [address] [address] [place] [address] * Guarantor: Rowena Byers Account Type Relation to Patient Date of Phone Billing Address Personal/Family Self 1990 [address] [place] [address] Advance Directives * Full Code (Latest Code Status on File) Date Activated Date Inactivated Comments 07/17/2016 8:18 PM 07/19/2016 3:16 PM Care Teams Equine Manager Relationship Specialty Start Date End Date Jakob Light MD [address] [facility] [place] [address] PCP - General 02/25/11
--- OUTSIDE RECORDS SUMMARY | 2024-07-28 09:56 | XMS_ITS | Encounter Summary ---
Author Organization [facility] Address [address] [facility] [place] [address] Care Team Providers Care Ecological Modeler Name Role Phone Tim Rolon DO Primary Care Provider [phone] Reason for Visit * Reason Comments Med Refill Encounter Details Date Type Department Care Team (Late Contact Info) Description 05/20/2023 Refill [facility] [address] [place] [address] Donovan Burks [address] [place]le [place], [place] [address] Female infertility Social History Tobacco Use Types Packs/Day Years [...] 10/28/2024 9:00 AM EDT Office Visit [facility] [address] [facility] [place] [address] Donovan Burks [facility] [place], [place] [id number] documented as of this encounter Visit Diagnoses Diagnosis Female infertility Female infertility of unspecified origin documented in this encounter Care Teams Ecological Modeler Relationship Specialty Start Date End Date Tim Rolon DO [address] [place] [id number] PCP - General Internal Medicine 08/08/22 documented as of this encounter
--- OUTSIDE RECORDS SUMMARY | 2024-07-28 09:57 | XMS_ITS | Clinical Summary ---
Author Organization [facility] Address [address] [place] [address] [place] [address] Care Team Providers Care Wringer And Setter Name Role Phone Tim Rolon DO Primary Care Provider [phone] Petra Silveira HYSTER DRIVER-ELECTRONIC DRAFTER Unavailable [phone] Allergies Active Allergy Reactions Criticality Noted Date Comments Seasonal Runny Nose,Congestion Low 08/21/2016 Medications loratadine 10 MG tablet Take 1 tablet by mouth as needed. Active Melatonin 5 MG Chew Tab Chew 1 tablet at bedtime as needed. Active Prenat MV-Min w/Oj-Laoahg-WYX ( COMPLETE PO) Take 1 tablet by mouth at bedtime. Active metFORMIN 500 MG tablet Take 1 tablet by mouth at bedtime. Active medroxyPROGESTER one 10 MG tablet Take 1 tablet by mouth as needed. Takes for 14 days each time needed Active acetaminophen 650 MG Tab CR Take 1 tablet by mouth every 6 hours as needed for Mild Pain. 3 Active MAGNESIUM GLYCINATE PO Take 1,000 mg by mouth daily. Active Calcium Carb-Cholecalcif augusto (CALCIUM + D3 PO) Take 600 mg by mouth daily. Active Folic acid 1 MG tabletIndication s:Jeavons syndrome TAKE 1 TABLET BY MOUTH EVERY DAY WITH DINNER 90 tablet 3 5 Active LamoTRIgine (LaMICtal XR) 50 MG Tab SR 24 HRIndications:Ot her epilepsy without status epilepticus, not intractable Take 1 tablet by mouth daily. 7 tablet 5 Active LamoTRIgine (LaMICtal XR) 200 MG Tab SR 24 HRIndications:Ot her epilepsy without status epilepticus, not intractable Take 1 tablet by mouth daily. Take this in addition to Lamictal XR 300 mg daily (total 500 mg daily) 90 tablet 3 5 Active Sertraline 100 MG tabletIndication s:Anxiety disorder, unspecified type Take 1 tablet by mouth at bedtime. 90 tablet 1 5 Active Sertraline 50 MG tablet Take 1 tablet by mouth daily. 90 tablet 1 5 Active cloBAZam 20 MG tabletIndication s:Jeavons syndrome Take 1 tablet by mouth Daily (with dinner). 30 tablet 5 5 11/05/19 25 Active Midazolam (Nayzilam) 5 MG/0.1ML Solution 5 mg by Nasal route as needed. For seizure clusters longer than 5 minutes. May repeat in 10 minutes. Do not exceed 10 mg in 24 hours. 2 Each 5 Active LamoTRIgine 300 MG Tab SR 24 HRIndications:Je avons syndrome Take 1 tablet by mouth at bedtime. 90 tablet 1 5 Active LamoTRIgine 300 MG Tab SR 24 HRIndications:Je avons syndrome TAKE 1 TABLET BY MOUTH EVERYDAY AT BEDTIME 90 tablet 4 07/01/19 25 Discontinu ed(Reorder ) Active Problems Problem Noted Date Diagnosed Date Anxiety disorder 03/05/2022 Overview (11/20/2022): Difficulties with anxiety (may have been earlier than 2014, however, in chart review through [facility] mention of anxiety was noted in 2014). 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 No seizure clusters. 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 Boyfriend says if she were to have a cluster she might wreck a car. However, these are not common unless she is off her medication. Regardless she does not have any desire to drive. 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 Encounters Date Type Department Care Team Description 06/07/2024 3:00 PM EDT Telemedicine [facility] [place] [address] [place] [address] Cori Dia DO Other epilepsy without status epilepticus, not intractable (Primary Dx); Anxiety disorder, unspecified type; Jeavons syndrome 06/07/2024 Telephone Neurology Outpatient [facility] [place] [address] [facility] [address] [place] [address] Joselyn Burks Appointment 05/23/2024 Refill Neurology [facility] [address] [address] Cori Dia DO Anxiety disorder, unspecified type 05/23/2024 Refill Neurology [facility] [address] [address] Petra Silveira, HYSTER DRIVER-ELECTRONIC DRAFTER Jeavons syndrome (Primary Dx); Epilepsy, unspecified, not intractable, without status epilepticus from Last 3 Months Immunizations Immunization Administration Dates Next Due Influenza Vaccine 01/04/2014 Family History Medical History Relation Name Comments Prostate Cancer Maternal Grandfather Heriberto Guaman - Gl enn Mental Illness Maternal Grandmother Great Grandma Lucila rs Depression , Anxiety Cancer- Other Paternal Grandfather Papclayton Mary Prostate Cancer Paternal Grandfather Papclayton Mary Diabetes Paternal Uncle Uncle Da Relation Name Status Comments Maternal Grandfather Heriberto Craig Maternal Grandmother Great Grandma Falk Paternal Grandfather Papa Usman Paternal Uncle Uncle Da Social History Tobacco Use Types Packs/Day Years Used Date Smoking Tobacco: Never Smokeless Tobacco: Never Tobacco Cessation:Counseling Given: Not Answered Comments:Never Alcohol Use Standard Drinks/Week Comments Not Currently 0 (1 standard drink = 0.6 oz pure alcohol) At most one or two drinks a month. AUDIT-C Answer Date Recorded Q1: How often do you have a drink containing alc ohol? Monthly or less 10/28/2019 Average Number of Drinks Not on file 020 Frequency of Binge Drinking Not on file 10/09 Education Answer Date Recorded What is the highest level of school you have completed or the highest degree you have received? 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 Not on file Not on file Last Filed Vital Signs Vital Sign Reading Time Taken Comments Blood Pressure 130/76 08/21/2023 2:43 PM EDT Pulse 88 08/21/2023 2:43 PM EDT Temperature 36.8 C (98.3 F) 08/21/2023 2:43 PM EDT Respiratory Rate 16 01/15/2023 1:50 PM EST Oxygen Saturation 98% 01/15/2023 1:50 PM EST Inhaled Oxygen Concentration - - Weight 90 kg (198 lb 6.4 oz) 08/21/2023 2:43 PM EDT Height 161.3 cm (5' 3.5 ) 08/21/2023 2:43 PM EDT verbal Body Mass Index 34.59 08/21/2023 2:43 PM EDT Plan of Treatment Health Maintenance Due Date Last Done Comments HEPATITIS C VIRUS SCREENING 1992 TETANUS 1990 HIV SCREENING DISCUSSION 07/15/2007 HEP B VACCINE (1 of 3 - 19+ 3-dose series) 07/15/2011 TDAP (ADULT) 07/15/2011 CERVICAL CANCER SCREENING DISCUSSION 2013 COVID-19 VACCINE (2023-2 5 season) 2023 INFLUENZA VACCINE (Season Ended) 2024 01/05/20 14 HPV VACCINE Aged Out No longer eligi ble based on patient's age to complete this topic PNEUMOCOCCAL VACCINE SERIES Aged Out No longer eligible based on patient's age to complete this topic Medical Devices Implanted Type Area Content Management Specialist Device Identifier Shelf Expiration Date Model / Serial / Lot Sentiva Implanted:Qty: 1 on 01/15/2023 by Andi Smith MD at [facility] N/A: Chest 09/03/2024 1000! / [id number] / Procedures Procedure Name Priority Date/Time Associated Diagnosis Comments LABS (OUTSIDE) 06/28/2024 LABS (OUTSIDE) 06/28/2024 from Last 3 Months Results * LABS (OUTSIDE) (06/28/2024) Only the most recent of2 resultswithin the time period is included. 06/28/2024 us Other Other OT LAB SEND OUTS Final Result from Last 3 Months Insurance [facility] Care Teams Wringer And Setter Relationship Specialty Start Date End Date Tim Rolon DO PCP - General Internal Medicine 09/19/22 Petra Silveira APRN-ELECTRONIC DRAFTER [address] [place] [address] Certified Nurse Practitioner 11/08/22
--- OUTSIDE RECORDS SUMMARY | 2024-07-28 09:57 | XMS_ITS | Encounter Summary ---
Author Organization [facility] Address [address] [facility] [place] [address] Care Team Providers Care Supervisor [place] Name Role Phone Tim Rolon DO Primary Care Provider [phone] Encounter Details Date Type Department Care Team (Late Contact Info) Description 08/08/2022 Abstract [facility] [address] [facility] [place] [address] Donovan Burks DO [address] [place] [address] [place] [address] Social History Tobacco Use Types Packs/Day Years [...] 10/28/2024 9:00 AM EDT Office Visit [facility] [address] [place] [address] Donovan Burks DO [facility] [place] [id number] documented as of this encounter Visit Diagnoses Not on filedocumented in this encounter Care Teams Supervisor [place] Relationship Specialty Start Date End Date Tim Rolon DO [address] [place] [address] PCP - General Internal Medicine 08/08/22 documented as of this encounter
--- OUTSIDE RECORDS SUMMARY | 2024-07-28 09:57 | XMS_ITS | Encounter Summary ---
Author Organization [facility] Address [address] [place] [address] Care Team Providers Care Wood Grinder Name Role Phone Tim Rolon DO Primary Care Provider [phone] Petra Silveira LAND SURVEYING SURVEY WORKER-ELEMENTARY INSTRUCTIONAL COACH Unavailable Encounter Details Date Type Department Care Team (Late st Contact Info) Description 10/21/2019 Refill Neurology [facility] [address] [place] [address] Saeed Farmer Seizure disorder (Primary Dx) Social History Tobacco Use Types Packs/Day Years Used Date Smoking Tobacco: Never Assessed Comments Unknown Sex and Gender Information Value Date Recorded Sex Assigned at Not on file Legal Sex Female 3:06 PM EDT Gender Identity Female 10/29/2019 1:41 AM EDT Sexual Orientation Straight 10/29/2019 1: 41 AM EDT documented as of this encounter Miscellaneous Notes * Telephone Encounter - Jannette Mantilla MA - 10/21/2019 9:48 AM EDT [facility] Requested Prescriptions Pending Prescriptions Disp Refills ??? cloBAZam 20 MG tablet 30 tablet 0 Sig: Take 1 tablet by mouth Daily (with dinner). * Telephone Encounter - Saeed Farmer - 10/21/2019 9:21 AM EDT What is the name of the medication and dosage? cloBAZam 20 MG tablet Date the patient was last seen? 09-30-19 Date of the next follow up or is the patient on a return/recall list? 10-28-19 documented in this encounter Plan of Treatment Not on file documented as of this encounter Visit Diagnoses Diagnosis Seizure disorder- Primary Unspecified epilepsy without mention of intractable epilepsy documented in this encounter Care Teams Wood Grinder Relationship Specialty Start Date End Date Tim Rolon DO PCP - General Internal Medicine 09/19/22 Petra Silveira APRN-ELEMENTARY INSTRUCTIONAL COACH [address] [place] [address] Certified Nurse Practitioner 11/08/22 documented as of this encounter
== END 2024-07-20 09:52 ==
LOC: LAB 09:51
PROVIDERS: PCP Internal Medicine; Visit Provider Obstetrics & Gynecology
DX: L91.8 Other hypertrophic disorders of the skin (principal)

== ENCOUNTER 2024-08-01 23:59 | Outpatient (OUT) | payer OTHER, SELFPAY ==
--- OUTSIDE RECORDS SUMMARY | 2021-05-03 05:47 | XMS_ITS | Continuity of Care Document ---
Author [facility] [place] [employer] [facility] Address [address] [place] [address] Phone Care Team Providers Care Project Management Advisor Name Role Phone Jefe Dowell MD Unavailable Unavailable Allergies, Adverse Reactions, Alerts Substance Reaction Status Criticality No Known Allergies Active No Inform ation Medications Medication Instructions Dosage Effective Dates (start - stop) Status Comments Flonase 50 mcg/actuation nasal spray,suspension inhale 2 spray by intranasal route every day in each nostril 100 MCG - Active Depo-Provera 150 mg/mL intramuscular syringe inject 1 milliliter by intramuscular route every 3 months 150 MG - Active Onfi 20 mg tablet take 1 tablet by oral route 2 times every day 20 MG - Active takes 40mg at hs for seizure disorder folic acid 400 mcg tablet take 1 tablet by oral route every day 0.4 MG - Active Depakote 500 mg tablet,delayed release take 1 tablet by oral route 2 times every day 500 MG - Active Calci-Chew 500 mg calcium (1,250 mg) tablet - Active Procedures Procedure Date URINE TEST NEXPLANON IMPLANT SYSTEM INSERT DRUG IMPLANT DEVICE PREV VISIT, EST, AGE 18-39 OBTAINING PAP SMEAR BUNDLED SERVICE THER/PROPH/DIAG INJ, SC/IM OFFICE/OUTPATIENT VISIT, EST THER/PROPH/DIAG INJ, SC/IM THER/PROPH/DIAG INJ, SC/IM URINE TEST THER/PROPH/DIAG INJ, SC/IM THER/PROPH/DIAG INJ, SC/IM ROUTINE VENIPUNCTURE ROUTINE VENIPUNCTURE PREVENTIVE COUNSELING, INDIV ROUTINE VENIPUNCTURE PREV VISIT, EST, AGE 18-39 IMMUNIZATION ADMIN OBTAINING PAP SMEAR BUNDLED SERVICE Medroxyprogesterone inj THER/PROPH/DIAG INJ, SC/IM ROUTINE VENIPUNCTURE THER/PROPH/DIAG INJ, SC/IM OFFICE/OUTPATIENT VISIT, EST INFLUENZA ASSAY W/OPTIC OFFICE/OUTPATIENT VISIT, EST THER/PROPH/DIAG INJ, SC/IM THER/PROPH/DIAG INJ, SC/IM VOID TICKET Advance Directives Directive Yes / No Effective Date File Name No Information Encounters Encounter Description Practice Location Reason(s) For Visit Diagnoses Date Provider Providers Copied on Encounter [facility], [address] [place] [address], [id number] , tel:[phone] [facility] No Information 2 Delmer Mayberry. [address], [id number], [place]. tel:[phone] [facility], [address] [place] [address], [id number] , [place] tel:[phone] [facility] Wants Nexplanon (chief complaint) Encounter for contraceptive management, unspecified 6 No Information PREV VISIT, EST, AGE 18-39 [facility], [address] [place] [address], [place], [place], [id number] , [place] tel: [phone] [facility] PAP test (chief complaint) Well woman examDepo-Prov era contraceptive statusAmenorr heaRoutine screening for STI (sexually transmitted infection)Cer vical cancer screening 5 No [employer] [facility], [address], [place], [id number] , [place] tel:+ [phone] [facility] Depo (chief complaint) Encounter for other contraceptive management 5 No Information OFFICE/OUTPA TIENT VISIT, [facility] [employer] [facility], [address], [place], [id number] , [place] tel:+ [phone] [facility] sinus symptoms (chief complaint) Acute recurrent maxillary sinusitis 5 No [employer] [facility], [address] [place] [address] [address], [place], [id number] , [place] tel:+ [phone] [facility] depo Provera (chief complaint) Other general counseling and advice on contraceptive management 5 No [employer] [facility], [address] [place] [address] [address], [place], [id number] , [place] tel:[phone] [facility] Depo Provera (chief complaint) Other general counseling and advice on contraceptive management 5 No [employer], [address] [place] [address] [address], [place], [id number] , [place] tel:+ [phone] [facility] No Information 5 No [employer], [address] [place] [address] [address], [place], [id number] , [place] tel:+ [phone] [facility] Unspecified contraceptive managementOth er general counseling and advice on contraceptive management 5 No [employer], [address] [place] [address] [address], [place], [id number] , [place] tel:+ [phone] [facility] depo injection (chief complaint) Other general counseling and advice on contraceptive management 4 No [employer], [address] [place] [address] [address], [place], [place], [id number] , [place] tel:+ [phone] [facility] No Information 4 No [employer], [address] [facility], [place], [place], [id number] , [place] tel:+ [phone] [facility] No Information 4 No Information PREVENTIVE COUNSELING, INDIV [employer] [facility], [address] [place] [address], [place], [place], [id number] , [place] tel:[phone] [facility] pap results (chief complaint) Sexually transmitted disease counselingCer vical high risk HPV (human papillomaviru s) test positive 4 No Information [employer] [facility], [address] [place] [address], [place], [place], [id number] , [place] tel:+ [phone] [facility] No Information 4 No Information PREV VISIT, EST, AGE 18-39 [employer] [facility], [address] [place] [address], [id number] , [place] tel:+ [phone] [facility] PAP test (chief complaint) Gynecologic ExamCervical cancer screeningRout ine screening for STI (sexually transmitted infection)Dep o-Provera contraceptive statusOther specified contraceptive management 4 No Information [employer] [facility], [address] [place] [address], [place], [place], [id number] , [place] tel:+ [phone] [facility] Depo Injection (chief complaint) Other specified contraceptive management 4 No Information [employer] [facility], [address] [place] [address], [id number] , [place] tel:+ [phone] [facility] No Information 4 No Information [employer] [facility], [address] [place] [address], [place], [place], [id number] , [place] tel:+ [phone] [facility] depo provera injection (chief complaint) No Information 4 No Information OFFICE/OUTPA TIENT VISIT, [facility] [employer] [facility], [address] [place] [address], [place], [place], [id number] , [place] tel:+ [phone] [facility] fever (chief complaint) Influenza with other respiratory manifestation sUnspecified sinusitis (chronic)Conj unctivitis 4 No Information OFFICE/OUTPA TIENT VISIT, EST [facility], [address] [place] [address], [place], [place], [id number] , tel:+ [phone] [facility] contraceptive follow up (chief complaint) Surveillance for Depo-Provera contraception 4 No Information [facility], [address] [place] [address], [place], [place], [id number] , tel:+ [phone] [facility] depo shot (chief complaint) Allergic rhinitis, cause unspecifiedEp ilepsy, unspecified, without mention of intractable epilepsyOther general counseling and advice on contraceptive management 3 Lian Samson. [address] [place], [place], [id number], [place]. tel:[phone] Referring Provider: Mali Menjivar [address] [facility], [place], [address] . tel:[phone] [facility], [address] [place] [address], [place], [place], [id number] , [place] tel: [phone] [facility] depo injection (chief complaint) No Information 3 No Information [facility], [address] [place] [address], [place], [place], [id number] , [place] tel:+ [phone] [facility] No Information 3 No Information Family History Family Member Type Diagnosis Age At Onset Mother Problem (finding) hypertension Father Problem (finding) GERD Payers Payer name Insurance type Covered green party ID Authorconchisa cynthia(s) [facility] CI [id number] Social History Type Description Quantity Date Captured Comments Sex Female Smoking Status No Information Chief Complaint And Reason For Visit No Information Reason For Referral Reason For Referral No Information Plan Of Treatment Date Type Action Status Goal URINALYSIS NONAU TO W/O SCOPE. Due on due Goal PRIMARY GRADE TEACHER/Breast exam. Due on due Goal HPV (1st). Due on 6 due Goal Depression scree susan. Due on due Goal Colonoscopy. Due on 016 due Goal OARRS. Due on du e Goal Influenza vaccine. Due on due Goal THER/PROPH/DIAG INJ, SC/IM. Due on due Goal Pap liquid based for cytology. Due on due Goal Medroxyprogester one inj. Due on due Goal Td vaccine. Due on 16 due Goal Mammogram. Due on 6 due Goal Glucose. Due on due Goal Medroxyprogester one inj. Due on due Goal URINALYSIS NONAU TO W/O SCOPE. Due on due Goal HPV, high+low-ri sk. Due on due Goal Depression scree susan. Due on due Goal OARRS. Due on du e Goal HPV (). Due on 5 due Goal Mammogram. Due on 5 due Goal THER/PROPH/DIAG INJ, SC/IM. Due on due Goal Pap liquid based for cytology. Due on due Goal Td vaccine. Due on 15 due Goal Influenza vaccine. Due on due Goal Glucose. Due on due Goal PRIMARY GRADE TEACHER/Breast exam. Due on due Goal Colonoscopy. Due on 015 due Goal Pap liquid based for cytology. Due on due Goal Colonoscopy. Due on 015 due Goal HPV (1st). Due on due Goal Mammogram. Due on due Goal URINALYSIS NONAU TO W/O SCOPE. Due on due Goal Td vaccine. Due on 15 due Goal Medroxyprogester one inj. Due on due Goal PRIMARY GRADE TEACHER/Breast exam. Due on due Goal HPV, high+low-ri sk. Due on due Goal Depression scree susan. Due on due Goal Influenza vaccine. Due on due Goal OARRS. Due on du e Goal Glucose. Due on due Goal OARRS. Due on du e Goal Glucose. Due on due Goal PRIMARY GRADE TEACHER/Breast exam. Due on due Goal Influenza vaccine. Due on due Goal Mammogram. Due on due Goal Colonoscopy. Due on 015 due Goal Td vaccine. Due on 15 due Goal HPV (1st). Due on due Goal URINALYSIS NONAU TO W/O SCOPE. Due on due Goal HPV, high+low-ri sk. Due on due Goal Pap liquid based for cytology. Due on due Goal Medroxyprogester one inj. Due on due Goal Depression scree susan. Due on due Goal Mammogram. Due on 5 due Goal URINALYSIS NONAU TO W/O SCOPE. Due on due Goal OARRS. Due on du e Goal Glucose. Due on due Goal Colonoscopy. Due on 015 due Goal HPV (1st). Due on 5 due Goal Influenza vaccine. Due on due Goal Medroxyprogester one inj. Due on due Goal HPV, high+low-ri sk. Due on due Goal PRIMARY GRADE TEACHER/Breast exam. Due on due Goal Pap liquid based for cytology. Due on due Goal Depression scree susan. Due on due Goal Td vaccine. Due on 15 due Goal Pap/HPV testing. Due on due Goal Td vaccine. Due on 15 due Goal Depression scree susan. Due on due Goal Pap liquid based for cytology. Due on due Goal Medroxyprogester one inj. Due on due Goal THER/PROPH/DIAG INJ, SC/IM. Due on due Goal EKG. Due on due Goal HPV, high+low-ri sk. Due on due Goal Influenza vaccine. Due on due Goal INSERT DRUG IMPL ANT DEVICE. Due on due Goal Tdap. Due on due Goal Mammogram. Due on 5 due Goal OARRS. Due on du e Goal Glucose. Due on due Goal PRIMARY GRADE TEACHER/Breast exam. Due on due Goal HPV (1st). Due on 5 due Goal URINALYSIS NONAU TO W/O SCOPE. Due on due Goal Glucose. Due on due Goal Pap/HPV testing. Due on due Goal Depression scree susan. Due on due Goal Medroxyprogester one inj. Due on due Goal Influenza vaccine. Due on due Goal INSERT DRUG IMPL ANT DEVICE. Due on due Goal Pap liquid based for cytology. Due on due Goal Td vaccine. Due on 15 due Goal URINALYSIS NONAU TO W/O SCOPE. Due on due Goal THER/PROPH/DIAG INJ, SC/IM. Due on due Goal HPV, high+low-ri sk. Due on due Goal OARRS. Due on du e Goal PRIMARY GRADE TEACHER/Breast exam. Due on due Goal Tdap. Due on due Goal HPV (1st). Due on 5 due Goal URINALYSIS NONAU TO W/O SCOPE. Due on due Goal PRIMARY GRADE TEACHER/Breast exam. Due on due Goal Pap liquid based for cytology. Due on due Goal OARRS. Due on du e Goal HPV (1st). Due on 4 due Goal Depression scree susan. Due on due Goal Medroxyprogester one inj. Due on due Goal Glucose. Due on due Goal Pap/HPV testing. Due on due Goal Tdap. Due on due Goal HPV, high+low-ri sk. Due on due Goal INSERT DRUG IMPL ANT DEVICE. Due on due Goal Influenza vaccine. Due on due Goal Td vaccine. Due on 14 due Goal THER/PROPH/DIAG INJ, SC/IM. Due on due Goal Depression scree susan. Due on due Goal THER/PROPH/DIAG INJ, SC/IM. Due on due Goal Glucose. Due on due Goal URINALYSIS NONAU TO W/O SCOPE. Due on due Goal Influenza vaccine. Due on due Goal HPV (). Due on 4 due Goal Tdap. Due on due Goal INSERT DRUG IMPL ANT DEVICE. Due on due Goal PRIMARY GRADE TEACHER/Breast exam. Due on due Goal Td vaccine. Due on 14 due Goal OARRS. Due on du e Goal HPV, high+low-ri sk. Due on due Goal Pap/HPV testing. Due on due Future Order: Radiol ogy Order BD Bone Density DEXA ([id number]), Ordered on: Ordered Future Order: Lab Order Pap Liqu id Based For Cytology ([id number]), Appointment on: , Collected on: Ordered Future Order: Lab Order Pap Liqu id Based For Cytology ([id number]), Appointment on: , Collected on: Ordered History Of Present Illness Encounter Date Complaint History Of Prese nt Illness Wants Nexplanon Wants Nexplanon On Depo, due for next shot this week. PAP test The patient stat es she uses Depo-Provera for control. Her menses is absent. Negative for: breast discharge, breast lump(s), breast pain and breast self exam. She does not take calcium. She does not take Vitamin D. She does not take multivitamins. Folic acid is taken occasionally.The patient states her exercise level is sedentary. She does drink alcohol. Additional information: On med that is not FDA approved for seizures. Pt is sexually active w/ 1 partner x 2 years. She would like repeat pap and STI testing. Has been on depo for 4-5 years. Amennorrhea for most of that time. Discussed BMD. Pt is considering change to Nexplanon. Depo sinus symptoms Onset: 1 Week. P ertinent/initial symptoms include facial pressure, purulent sinus drainage and sinus congestion. Associated symptoms include cough, fever, headache, nasal drainage, otalgia, postnasal drainage, rhinorrhea, sinus pressure and sore throat. Additional information: Pt. also c/o chills, body aches and swollen glands. depo Provera depo given as ch arted Depo Provera Patient was on t jorge. Due Nov 01- Nov 15. depo injection Depo injection g iven. One week late, last intercourse was last day of coverage, home test is negative. pap results here to discuss pap results. Discussed with patient LGSIL with positive high risk HPV. Discussed follow up and ways to support immune system. Limit sexual partners. Pt asked questions and answered, verbalized understanding. PAP test The patient stat es she uses Depo-Provera for control. Negative for: breast discharge, breast lump(s), breast pain and breast self exam. She takes calcium supplements. She does not take Vitamin D. She does not take multivitamins. Folic acid is taken.The patient states her exercise level is sedentary. The patient does not use tobacco. She does drink alcohol. Additional information: Pt is in a trial tx for her seizure disorder - on CBD. Derivative of marijuana. Not yet FDA approved. Discussed keeping control the same, especially during trial. Pt is sexually active with the same partner for 4 years. Would like STI screening for GC/CT. Refuses blood work. First pap today. 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 Graduates in July. She is looking for job in [employer]. Depo Injection Last Depo Apr.Next Depo Oct 21- Nov 04 Functional Status Date Functional Assessmen t No Information Instructions Date Instruction Additional Infor kristie See [facility] handout on N explanon after care. Related to Encounter for contraceptive management, unspecified It is important to h ave STI testing done yearly especially as some STI's have no symptoms. Any unusual vaginal symptoms especially with a partner change should be evaluated. Return for annual exam in 1 year, pap begining at 23. control use and warnings reviewed. Increase exercise and calcium intake, as discussed. Related to Well woman exam It is important to c onsistently use condoms and limit your number of sexual partners. Many STI's have no symptoms. It is suggested to have routine STI testing, once a year or even 4-6 weeks after contact with a new partner. Any urinary symptoms in a man are usually a sign of an STI and need to be evaluated. Vaginal symptoms in a woman also should be evaluated to be sure an STI is not present. Related to Routine screening for STI (sexually transmitted infection) See handout on HPV and follow up . Related to Sexually transmitted disease counseling See plan details Related to Sexu staciey transmitted disease counseling Continue with Depo-p rovera as directed. Return for next injection in 12 weeks. Annual exam in 1 year. Related to Depo-Provera contraceptive status It is important to c onsistently use condoms and limit your number of sexual partners. Many STI's can have no symptoms. It is suggested to have routine STI testing once a year or even 4-6 weeks after contact with a new partner. Routine vaccinations are important especially Gardasil vaccine for men and women to prevent HPV (Human papilloma virus) which is the most common STI (Sexually transmitted infection). Any urinary symptoms in a man is usually a sign of an STI and needs to be evaluated. Vaginal symptoms in a woman also should be evaluated to be sure an STI is not present Related to Routine screening for STI (sexually transmitted infection) I will notify you of any abnormal results. Related to Cervical cancer screening It is important to h ave STI testing done yearly especially as some STI's have no symptoms. Any unusual vaginal symptoms especially with a partner change should be evaluated. I discussed the importance of annual pap and pelvic exams yearly starting at age 21. I reviewed the appropriate control she is using, the administration, warning signs. Advise on Calcium intake and daily multiple vitamin use. Related to Gynecologic Exam See plan details Related to Depo -Provera contraceptive status See plan details. Related to Rou carl screening for STI (sexually transmitted infection) See plan details Related to Cerv ical cancer screening See plan details Related to Gyne cologic Exam See plan details Related to Infl uenza with other respiratory manifestations See plan details Related to Unsp ecified sinusitis (chronic) see plan details Related to Surv eillance for Depo-Provera contraception Assessments Type Assessment Date No Information Patient Care Teams Name Effective Dates (start - stop) Status Members No Information
--- OUTSIDE RECORDS SUMMARY | 2024-07-20 11:10 | XMS_ITS | Encounter Summary ---
Author Organization [facility] Address [address] [place] [address] Care Team Providers Care Speech/Language Therapist Name Role Phone Tim Rolon Primary Care Provider [phone] Reason for Visit * Reason Comments Skin Tag Pt present today for a skin tag on right areola. Encounter Details Date Type Department Care Team (Late st Contact Info) Description 07/20/2024 11:10 AM EDT Office Visit [facility] OB [address] [place] [address] Donovan Burks DO [address] [facility] [address] [place], [facility]11 Skin tag Social History Tobacco Use Types [...] nursing note reviewed. Exam conducted with a strings teacher present. Vitals: Estimated body mass index is [...] after allowing sufficient time to take affect. brass pickler and scissors used to remove affected area. Placed in formalin and sent to pathology. Post-procedure instructions given. Follow Up: As needed Documented by Rhonda Dubois LPN on behalf of: Donovan Burks DO documented in this encounter Plan of Treatment Upcoming Encounters Date Type Department Care Team (Late st Contact Info) Description 10/28/2024 9:00 AM EDT Office Visit [facility] [address] [facility] [address] [place] [phone] Donovan Burks DO [address] [place] [address] documented as of this encounter Visit Diagnoses Diagnosis Skin tag Unspecified hypertrophic and atrophic condition of skin documented in this encounter Care Teams Speech/Language Therapist Relationship Specialty Start Date End Date Tim Rolon DO [address] [place] [address] PCP - General Internal Medicine 08/08/22 documented as of this encounter
--- OUTSIDE RECORDS SUMMARY | 2024-07-20 11:12 | XMS_ITS ---
Author Name Auto Generated Organization [facility] Care Team Providers Care Magazine Designer Name Role Phone YOLANDA BURKS Attending Unavailable MADONNA PARSONS Attending Unavailable YOLANDA BURKS Attending Unavailable Yolanda Burks Attending Unavailable Yolanda Burks Admitting Unavailable KAROLINE STALLINGS Referring Unavailable KAROLINE STALLINGS Primary Care Unavailable BRANDON ARRIAGA Attending Unavailable BRANDON ARRIAGA Attending Unavailable KAROLINE STALLINGS Primary Care Unavailable SELF, SELF Referring Unavailable PROBLEMS No Problem Records Found PROCEDURES No Procedure Records Found RESULTS PATHOLOGY REQUEST FOR LAB HELGA Collected: 07/20/2024 12:00 AM Status: F Source: [facility] Order Comment: SKIN TAG TYPE CODE TESTS RESULT OUT OF RANGE REFERENCE UNITS LAB PATH TO [facility] Pathology Request for Lab Helga Result Comment: See report. Scanned copy available in EMR. PERFORMED BY: [place] [address] PATHOLOGIST EXTRUDER OPERATOR SAM MARTIN M.D. Performed By: #### PATH TO [facility] #### [place] [id number] [facility] ALLERGIES DATE TYPE / CODE NAME / CODE REACTION SEVERITY SOURCE 09/24/2023 Drug Allergy/[id number] (SNOMED CT) No Known Allergies/[id number] 88(RXNORM) Unknown [facility] ENCOUNTERS ADMIT/DISCHARGE ACCOUNT NUMBER ADMITTING ENCOUNTER CLASS LOCATION SOURCE 07/20/2024/ 025 [id number] Ambulatory Building:[facility] 07/20/2024/ 025 [id number] [facility]2024 [id number] [facility]23/ 024 [id number] Ambulatory Building:[facility] 10/15/2023/ 024 [id number] Ambulatory Building:[facility] 08/21/2023 [id number] [facility] PAYERS ENCOUNTER GUARANTOR PAYER SUBSCRIBER SOURCE 07/20/2024 ROWENA [place]ILSONDOB: [place] [address]Mbk: () Primary Insurance:[employer] MEDICAIDPolicy Number: [id number] Date:2021-04-10 ROWENA WILSONDOB: [id number] [place] [address] [facility] EPIC 07/20/2024 [place] [address]Tkw: (HP) Primary Insurance:Self PayPolicy Number: Effective Date:2024-07-20 [facility]/07/2024 ROWENA CARBAJAL DOWERDOB: [place], [place] [address]Fxe: ~([phone] (HP) Primary Insurance:CARESOURCEPo licy Number: [id number] Date:3541-43-31Mvyz Name:REHANA CARBAJAL DOWERDOB: [id number] [place], [place] [address]Zst: (HP) [facility] 10/20/2023 ROWENA CARBAJAL DOWERDOB: [place] [address]Btl: (HP) [facility] MEDICAIDPolicy Number: [id number] Date:2021-04-10 ROWENA CARBAJAL DOWERDOB: [id number] [place] [address] [facility] EPIC 10/15/2023 ROWENA CARBAJAL DOWERDOB: [place] [address]Gyg: (HP) Primary Insurance:[employer] MEDICAIDPolicy Number: [id number] Date:2021-04-10 ROWENA CARRENOERDOB: [id number] [place] [address] [facility] EPIC 08/21/2023 ROWENA CARBAJAL DOWERDOB: [id number] [place] [address]Sdh: ~([phone] (HP) Primary Insurance:CARESOURCEPo licy Number: [id number] Date:8541-98-56Jafa Name:REHANA CARBAJAL DOWERDOB: [id number] [place], [place] [address]Dkg: () [facility]
--- OUTSIDE RECORDS SUMMARY | 2024-08-03 06:18 | XMS_ITS | Encounter Summary ---
Author Organization [facility] Address [address] [facility] [place] [address] Care Team Providers Care Dispatch Associate Name Role Phone Tim Rolon DO Primary Care Provider [phone] Reason for Visit * Reason Comments Med Refill Encounter Details Date Type Department Care Team (Late Contact Info) Description 05/20/2023 Refill [facility] [address] [facility] [address] [address] Burks [address] [place], [place] [address] Female infertility Social History Tobacco Use Types [...] 10/28/2024 9:00 AM EDT Office Visit [facility] [address] [facility] [address] [facility] [place], [place] [id number] documented as of this encounter Visit Diagnoses Diagnosis Female infertility Female infertility of unspecified origin documented in this encounter Care Teams Dispatch Associate Relationship Specialty Start Date End Date Tim Rolon DO [address] [place] [phone] PCP - General Internal Medicine 08/08/22 documented as of this encounter
--- OUTSIDE RECORDS SUMMARY | 2024-08-03 06:18 | XMS_ITS | Encounter Summary ---
Author Organization [facility] Address [address] [place] [address] Care Team Providers Care Solution Sales Senior Executive Name Role Phone Tim Rolon DO Primary Care Provider [phone] Reason for Visit * Reason Comments Med Refill Encounter Details Date Type Department Care Team (Late st Contact Info) Description 01/29/2024 Refill [facility] [address] [id number] Donovan Burks [address] [place], [facility] Female infertility; Anovulation Social History Tobacco Use [...] 10/28/2024 9:00 AM EDT Office Visit [facility] [address] [place] [address] Donovan Burks DO [address] [facility] [address] [place], [place] [phone] documented as of this encounter Visit Diagnoses Diagnosis Female infertility Female infertility of unspecified origin Anovulation Female infertility associated with anovulation documented in this encounter Care Teams Solution Sales Senior Executive Relationship Specialty Start Date End Date Tim Rolon DO [address] [facility] [place] [address] PCP - General Internal Medicine 08/08/22 documented as of this encounter
--- OUTSIDE RECORDS SUMMARY | 2024-08-03 06:18 | XMS_ITS | Clinical Summary ---
Author Organization [facility] Address [address] [place] [address] Care Team Providers Care Joiner Helper Name Role Phone Tim Rolon DO Primary Care Provider [phone] Allergies Active Allergy Reactions Criticality Noted Date [...] Encounters Date Type Department Care Team Description 07/29/2024 Abstract [facility] [address] [place] [address] Donovan Burks, DO 07/20/2024 11:10 AM EDT Office Visit [facility] [address] [place] [address] Donovan Burks, DO Skin tag 07/20/2024 External Result Encounter [facility] External Department Unsolicited Donovan Burks, DO 07/20/2024 Bamboo flowsheet [facility] [address] [place] [address] Donovan Burks, DO 07/12/2024 Telephone [facility] [address] [place] [address] Donovan Burks, DO 07/12/2024 [facility]ill [facility] [address] [facility] [place] [address] Donovan Burks, Anovulation 06/28/2024 Clinisync Result Encounter [facility] External Department Unsolicited Donovan Burks, DO 06/08/2024 Telephone [facility] [address] [place] [address] [place] [address] Shara Hopper, SEARCH DIRECTOR 05/26/2024 Clinisync Result Encounter [facility] External Department Unsolicited Donovan Burks, DO 05/23/2024 Refill [facility] [address] [place] [address] Donovan Burks, PCOS (polycystic ovarian syndrome) 05/06/2024 Refill [facility] [address] [facility] [place] [address] Donovan Burks, Female infertility; Anovulation from Last [...] [address] [facility] [place] [address] Donovan Burks, [address] [facility] [place] [address] Procedures Procedure Name Priority Date/Time Associated Diagnosis Comments PATHOLOGY REQUEST FOR LAB HELGA Routine 07/20/2024 12:00 AM EDT ALL PROGESTERONE Routine 06/28/2024 4:43 PM EDT ALL PROGESTERONE Routine 05/26/2024 4:58 PM EDT from Last 3 Months Results * PATHOLOGY REQUEST FOR LAB HELGA (07/20/2024 12:00 AM EDT) PATHOLOGY REQUEST FOR LAB HELGA 07/27/2024 9:00 AM EDT [facility] Comment:See report. Scanned copy available in EMR. Other Topography unknown / Unknown 07/20/2024 07/21/2024 1:15 PM EDT Narrative [facility] - 07/27/2024 9:00 AM EDT SKIN TAG Donovan Burks DO LAB BLOOD ORDERABLES Final Resul t [facility] [address] [place] [address], [facility] [address] [place] [address] * ALL PROGESTERONE (06/28/2024 4:43 PM EDT) Only the most recent of2 resultswithin the time period is included. PROGESTERONE 32.1 . ng/mL [facility] Comment: Follicular phase 0.1 - 0.9 Luteal phase 1.8 - 23.9 Ovulation phase 0.1 - 12.0 First trimester 11.0 - 44.3 Second trimester 25.4 - 83.3 Third trimester 58.7 - 214.0 Postmenopausal 0.0 - 0.1 Performed at: [address] [id number] Conductor Yard: Ino Dougherty PhD, Phone: [phone] 06/28/2024 4:43 PM EDT 06/28/2024 4:46 PM EDT Narrative [facility] - 06/30/2024 4:07 AM EDT us Donovan Kimmie DO [facility] Final Result [facility] from Last 3 Months Insurance [employer] MEDICAID [employer] Care Teams Joiner Helper Relationship Specialty Start Date End Date Tim Rolon DO [address] [place] [address] PCP - General Internal Medicine 08/08/22
--- OUTSIDE RECORDS SUMMARY | 2024-08-03 06:18 | XMS_ITS | Encounter Summary ---
Author Organization [facility] Address [address] [facility] [place] [address] Care Team Providers Care Die Sinker Name Role Phone Tim Rolon DO Primary Care Provider [phone] Encounter Details Date Type Department Care Team (Late Contact Info) Description 07/20/2024 External Result Encounter [facility] External Department Unsolicited Donovan Burks, [address] [place] [id number] Social History Tobacco Use Types Packs/Day Years [...] Visit [facility] OB [address] [place] [address] Donovan Burks DO [address] [place] [address] documented as of this encounter Procedures Procedure Name Priority Date/Time Associated Diagnosis Comments PATHOLOGY REQUEST FOR LAB HELGA Routine 07/20/2024 12:00 AM EDT documented in this encounter Results * PATHOLOGY REQUEST FOR LAB HELGA (07/20/2024 12:00 AM EDT) PATHOLOGY REQUEST FOR LAB HELGA 07/27/2024 9:00 AM EDT [facility] Comment:See report. Scanned copy available in EMR. Other Topography unknown / Unknown 07/20/2024 07/21/2024 1:15 PM EDT Narrative [facility] - 07/27/2024 9:00 AM EDT SKIN TAG Donovan Burks DO LAB BLOOD ORDERABLES Final Resul t [facility] [address] [place] [address], [facility] [address] [place] [address] documented in this encounter Visit Diagnoses Not on filedocumented in this encounter Care Teams Die Sinker Relationship Specialty Start Date End Date Tim Rolon DO [address] [place] [address] PCP - General Internal Medicine 08/08/22 documented as of this encounter
--- OUTSIDE RECORDS SUMMARY | 2024-08-03 06:18 | XMS_ITS | Encounter Summary ---
Author Organization [facility] Address [address] [facility] [place] [address] Care Team Providers Care Painter Aircraft Name Role Phone Tim Rolon DO Primary Care Provider [phone] Reason for Visit * Reason Comments Med Refill Encounter Details Date Type Department Care Team (Late Contact Info) Description 06/20/2023 Refill [facility] OB [address] [place] [address] Donovan Burks [address] [place], [place] [address] Female infertility; Fallopian tube disorder Social History [...] 10/28/2024 9:00 AM EDT Office Visit [facility] OB [address] [place] [address] Donovan Burks, [address] [place], [place] [address] Scheduled Orders Name Type Priority Associated Diagnoses [...] ligament documented in this encounter Care Teams Painter Aircraft Relationship Specialty Start Date End Date Tim Rolon DO [address] [place] [address] PCP - General Internal Medicine 08/08/22 documented as of this encounter
--- OUTSIDE RECORDS SUMMARY | 2024-08-03 06:18 | XMS_ITS | Encounter Summary ---
Author Organization [facility] Address [address] [facility] [place] [address] Care Team Providers Care Hand Laster Name Role Phone Tim Rolon DO Primary Care Provider [phone] Encounter Details Date Type Department Care Team [...] Visit [facility] BCP OB [address] [place] [address] Yolanda Burks DO [address] [place], [place] [address] documented as of this encounter Procedures Procedure Name Priority Date/Time Associated Diagnosis Comments FL HYSTEROSALPINGOGRAM 11:28 AM EDT documented in this encounter Results * FL HYSTEROSALPINGOGRAM (06/27/2023 11:28 AM EDT) Anatomical Region Laterality Modality Other 06/27/2023 11:2 8 AM EDT Narrative 06/27/2023 11:30 AM EDT [address] [address] Fluoroscopy Report Signed Patient: ROWENA GUADALUPE MR#: [id number] : 1990 Acct:[id number] Age/Sex: 32 / F ADM Date: 06/27/23 Loc: LAB Attending Dr: Yolanda Burks D.O. Ordering Physician: Yolanda Burks D.O. Date of Service: 06/27/23 Procedure(s): FL Hysterosal cath placement Accession Number(s): [id number] cc: Tim Rolon D.O.; Yolanda Burks D.O. [place] [address] Patient Name: ROWENA DRAKE MRN: [id number] date: 1990 Sex: F Assigned Patient Location: LAB Current Patient Location: LAB Accession/Order Number: [id number] Exam Date: 06/27/2023 10:15 Report Date: 06/27/2023 [...] Signed By: 06/27/23 1130 DD/ 1128 TD/TT: Specialty Sales Representative: Procedure Note Radiology, Radiologist, MD - 06/27/2023 [place] [address] Fluoroscopy Report Signed Patient: ROWENA GUADALUPE BMR#: [id number] : 1990Acct:[id number] Age/Sex: 32 / FADM Date: 06/27/23 Loc: LAB Attending Dr: Yolanda Burks D.O. Ordering Physician: Yolanda Burks D.O. Date of Service: 06/27/23 Procedure(s): FL Hysterosal cath placement Accession Number(s): [id number] cc: Tim Rolon D.O.; Yolanda Burks D.O. The [place] [address] Patient Name: ROWENA DRAKE MRN: [id number] date: 1990 Sex: F Assigned Patient Location: LAB Current Patient Location: LAB Accession/Order Number: [id number] Exam Date: 06/27/2023 10:15 Report Date: 06/27/2023 [...] M.D. Signed By:06/27/23 1130 DD/ 1128 TD/TT: Specialty Sales Representative: us Yolanda Burks DO [facility] Final Result documented in this encounter Visit Diagnoses Not on filedocumented in this encounter Care Teams Hand Laster Relationship Specialty Start Date End Date Tim Rolon DO [facility] [place] [address] PCP - General Internal Medicine 08/08/22 documented as of this encounter
--- OUTSIDE RECORDS SUMMARY | 2024-08-03 06:18 | XMS_ITS | Encounter Summary ---
Author Organization [facility] Address [address] [place] [address] Care Team Providers Care Biology Faculty Member Name Role Phone Tim Rolon DO Primary Care Provider [phone] Petra Silveira INSTRUMENTATION DESIGNER-ACID SUPERVISOR Unavailable [phone] Encounter Details Date Type Department Care Team (Late st Contact Info) Description 10/21/2019 Refill Neurology [facility] [address] [place] [address] Saeed Farmer Seizure disorder (Primary [...] Mantilla MA - 10/21/2019 9:48 AM EDT [facility] Requested Prescriptions Pending Prescriptions Disp Refills [...] epilepsy documented in this encounter Care Teams Biology Faculty Member Relationship Specialty Start Date End Date Tim Rolon DO PCP - General Internal Medicine 09/19/22 Petra Silveira APRN-ACID SUPERVISOR [address] [place] [address] Certified Nurse Practitioner 11/08/22 documented as of this encounter
--- OUTSIDE RECORDS SUMMARY | 2024-08-03 06:18 | XMS_ITS | Encounter Summary ---
Author Organization [facility] Address [address] [facility] [place] [address] Care Team Providers Care Combat Control Manager Name Role Phone Tim Rolon DO Primary Care Provider [phone] Encounter Details Date Type Department Care Team (Late Contact Info) Description 07/20/2024 Bamboo flowsheet [facility] OB [address] [facility] [place] [address] [address] [place] [address] Social History Tobacco Use Types Packs/Day Years [...] [facility] OB [address] [place] [address] Donovan Burks [address] [place] [address] [address] documented as of this encounter Visit Diagnoses Not on filedocumented in this encounter Care Teams Combat Control Manager Relationship Specialty Start Date End Date Tim Rolon DO [address] [place] [address] PCP - General Internal Medicine 08/08/22 documented as of this encounter
--- OUTSIDE RECORDS SUMMARY | 2024-08-03 06:18 | XMS_ITS | Encounter Summary ---
Author Organization [facility] Address [address] [facility] [place] [address] Care Team Providers Care Hospital Receiving Clerk Name Role Phone Tim Rolon DO Primary Care Provider [phone] Encounter Details Date Type Department Care Team (Late Contact Info) Description 08/08/2022 Abstract [facility] OB [address] [facility] [place] [place] [address] Donovan Burks DO [address] [place] [address] [place] [address] Social History Tobacco Use Types Packs/Day Years [...] 10/28/2024 9:00 AM EDT Office Visit [facility] OB [address] [place] [address] Donovan Burks DO [facility] [address] [place] [address] documented as of this encounter Visit Diagnoses Not on filedocumented in this encounter Care Teams Hospital Receiving Clerk Relationship Specialty Start Date End Date Tim Rolon DO [address] [place] [address] PCP - General Internal Medicine 08/08/22 documented as of this encounter
--- OUTSIDE RECORDS SUMMARY | 2024-08-03 06:18 | XMS_ITS | Encounter Summary ---
Author Organization [facility] Address [address] [place] [address] Care Team Providers Care Food Safety Field Specialist Name Role Phone Tim Rolon DO Primary Care Provider [phone] Encounter Details Date Type Department Care Team (Late st Contact Info) Description 06/27/2023 Clinisync Result Encounter [facility] External Department Unsolicited Yolanda Burks, DO [address] [place], [facility] Social History Tobacco Use Types Packs/Day Years [...] Visit [facility] BCP OB [address] [place] [address] Yolanda Burks DO [address] [place], [place] [address] documented as of this encounter Procedures Procedure Name Priority Date/Time Associated Diagnosis Comments FL HYSTEROSALPINGOGRAPHY 024 11:28 AM EDT documented in this encounter Results * FL HYSTEROSALPINGOGRAPHY (06/27/2023 11:28 AM EDT) Anatomical Region Laterality Modality Other 06/27/2023 11:2 8 AM EDT Narrative 06/27/2023 11:30 AM EDT [address] [address] Fluoroscopy Report Signed Patient: ROWENA GUADALUPE MR#: [id number] : 1990 Acct:[id number] Age/Sex: 32 / F ADM Date: 06/27/23 Loc: LAB Attending Dr: Yolanda Burks D.O. Ordering Physician: Yolanda Burks D.O. Date of Service: 06/27/23 Procedure(s): FL hysterosalpingography Accession Number(s): [id number] cc: Tim Rolon D.O.; Yolanda Burks D.O. [place] [address] Patient Name: ROWENA DRAKE MRN: [id number] date: 1990 Sex: F Assigned Patient Location: LAB Current Patient Location: LAB Accession/Order Number: [id number] Exam Date: 06/27/2023 10:15 Report Date: 06/27/2023 [...] Signed By: 06/27/23 1130 DD/ 1128 TD/TT: Dental Equipment Repairer: Procedure Note Radiology, Radiologist, MD - 06/27/2023 [place] [address] Fluoroscopy Report Signed Patient: ROWENA GUADALUPE BMR#: [id number] : 1990Acct:[id number] Age/Sex: 32 / FADM Date: 06/27/23 Loc: LAB Attending Dr: Yolanda Burks D.O. Ordering Physician: Yolanda Burks D.O. Date of Service: 06/27/23 Procedure(s): FL hysterosalpingography Accession Number(s): [id number] cc: Tim Rolon D.O.; Yolanda Burks D.O. The [place] [address] Patient Name: ROWENA DRAKE MRN: [id number] date: 1990 Sex: F Assigned Patient Location: LAB Current Patient Location: LAB Accession/Order Number: [id number] Exam Date: 06/27/2023 10:15 Report Date: 06/27/2023 [...] M.D. Signed By:06/27/23 1130 DD/ 1128 TD/TT: Dental Equipment Repairer: us Yolanda Burks DO [facility] Final Result documented in this encounter Visit Diagnoses Not on filedocumented in this encounter Care Teams Food Safety Field Specialist Relationship Specialty Start Date End Date Tim Rolon DO [facility] [place] [address] PCP - General Internal Medicine 08/08/22 documented as of this encounter
--- OUTSIDE RECORDS SUMMARY | 2024-08-03 06:18 | XMS_ITS | Clinical Summary ---
Author Organization [facility] Address [address] [place] [address] [place] [address] Care Team Providers Care Pickle Processor Name Role Phone Tim Rolon DO Primary Care Provider [phone] Petra Silveira VOCATIONAL SCHOOL TEACHER-ACCOUNT ASSOCIATE Unavailable [phone] Allergies Active Allergy Reactions Criticality Noted Date Comments Seasonal Runny Nose,Congestion Low 08/21/2016 Medications loratadine 10 MG tablet Take 1 tablet by mouth as needed. Active Melatonin 5 MG Chew Tab Chew 1 tablet at bedtime as needed. Active Prenat MV-Min w/Zv-Fjlgoz-PXS ( COMPLETE PO) Take 1 tablet by [...] at bedtime. 90 tablet 1 5 Active Active Problems Problem Noted Date Diagnosed Date Anxiety disorder 03/05/2022 Overview (11/20/2022): Difficulties with anxiety (may have been earlier than 2014, however, in chart review through [facility] mention of anxiety was noted in 2014). 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 Telephone Neurology Outpatient Care [place] [address] [place] [address] Joselyn Burks Appointment 05/23/2024 Refill Neurology [facility] [address] [address] Cori Dia DO Anxiety disorder, unspecified type 05/23/2024 Refill Neurology [facility] [address] [address] Petra Silveira, VOCATIONAL SCHOOL TEACHER-ACCOUNT ASSOCIATE Jeavons syndrome (Primary Dx); Epilepsy, unspecified, not intractable, without status epilepticus from Last 3 Months Immunizations Immunization Administration Dates Next Due Influenza Vaccine 01/04/2014 Family History Medical History Relation Name Comments Prostate Cancer Maternal Grandfather Heriberto Guaman - Gl enn Mental Illness Maternal Grandmother Great Grandma Lucila rs Depression , Anxiety Cancer- Other Paternal Grandfather Papa Usman Prostate Cancer Paternal Grandfather Papa Usman Diabetes Paternal Uncle Uncle Da Relation Name [...] this topic Medical Devices Implanted Type Area Airworthiness Safety Inspector Device Identifier Shelf Expiration Date Model / Serial / Lot Sentiva Implanted:Qty: 1 on 01/15/2023 by Andi Smith MD at [facility] N/A: Chest 09/03/2024 1000! / [id number] / Procedures Procedure Name Priority Date/Time Associated Diagnosis Comments LABS (OUTSIDE) 06/28/2024 LABS (OUTSIDE) 06/28/2024 from Last 3 Months Results * LABS (OUTSIDE) (06/28/2024) Only the most recent of2 resultswithin the time period is included. 06/28/2024 us Other Other OT LAB SEND OUTS Final Result from Last 3 Months Insurance [employer] Member Subscriber Plan / Payer (Ef fective 2021-Present) Name:Rowena Byers Relation to Subscriber:Self Name:Rowena Guadalupe Payer ID:[id number] (NAIC) Group ID:Not on file Type:Not on file Address: [place] [id number] Care Teams Pickle Processor Relationship Specialty Start Date End Date Tim Rolon DO PCP - General Internal Medicine 09/19/22 Petra Silveira, VOCATIONAL SCHOOL TEACHER-ACCOUNT ASSOCIATE [address] [place] [address] Certified Nurse Practitioner 11/08/22
--- OUTSIDE RECORDS SUMMARY | 2024-08-03 06:18 | XMS_ITS | Encounter Summary ---
Author Organization [facility] Address [address] [facility] [place] [address] Care Team Providers Care Film Waxer Name Role Phone Tim Rolon DO Primary Care Provider [phone] Encounter Details Date Type Department Care Team ([facility] Contact Info) Description 07/29/2024 Abstract [facility] OB [address] [facility] [address] Donovan Burks [address] [place] [address] Social History Tobacco Use Types Packs/Day Years [...] 10/28/2024 9:00 AM EDT Office Visit [facility] OB [address] [place] [address] Donovan Bukrs [facility] [address] [place] [address] documented as of this encounter Visit Diagnoses Not on filedocumented in this encounter Care Teams Film Waxer Relationship Specialty Start Date End Date Tim Rolon DO [address] [place] [address] PCP - General Internal Medicine 08/08/22 documented as of this encounter
--- OUTSIDE RECORDS SUMMARY | 2024-08-03 06:18 | XMS_ITS | Encounter Summary ---
Author Organization [facility] Address [address] [address] Care Team Providers Care Agricultural Crop Farm Manager Name Role Phone Pcp, No Primary Care Provider [phone] Encounter Details Date Type Department Care Team (Late st Contact Info) Description 12/27/2010 Orders Only Neurology Clinic Main [address] [place] [address] Historical, Provider Social History Tobacco Use Types [...] ORDERABLES Final R esult Performing Organization Address [facility] de Phone Number EXTERNAL LAB * AST (12/12/2010) Blood us Provider Historical CHEMISTRY ORDERABLES Final R esult Performing Organization Address [facility] de Phone Number EXTERNAL LAB * VALPROIC ACID LEVEL (12/12/2010) Provider Historical DRUG LEVEL ORDERABLES Final Result Performing Organization Address [facility] de Phone Number EXTERNAL LAB * Comprehensive Metabolic Panel (Lytes/BUN/Creat/Gluc/Alb/Total Bili/Ca/Alk Phos/AST/ALT/Total Prot) (12/11/2010) Blood Provider Historical CHEMISTRY ORDERABLES Final R esult Performing Organization Address [facility] de Phone Number EXTERNAL LAB * MONO SCREEN (12/10/2010) Blood Provider Historical IMMUNOLOGY/SEROLOGY ORDERABL ES Final Result Performing Organization Address [facility] de Phone Number EXTERNAL LAB * CBC W/AUTOMATED DIFF, REFLEX TO MANUAL (12/10/2010) Blood Provider Historical HEMATOLOGY ORDERABLES Final Result Performing Organization Address [facility] de Phone Number EXTERNAL LAB documented in this encounter Visit Diagnoses Not on filedocumented in this encounter Care Teams Agricultural Crop Farm Manager Relationship Specialty Start Date End Date Pcp, No [place] [address] PCP - General 09/29/19 documented as of this encounter
--- OUTSIDE RECORDS SUMMARY | 2024-08-03 06:18 | XMS_ITS | Clinical Summary ---
Author Organization [facility] Address [address] [place] [address] Care Team Providers Care Scalping Machine Operator Name Role Phone Pcp, No Primary Care Provider [phone] Allergies Active Allergy Reactions Criticality Noted Date Comments Environmental Runny Nose,Nasal Congestion 03/15 Medications LORATADINE 10 mg oral tablet take by mouth once daily. prn Active etonogestrel (NEXPLANON) 68 mg subdermal sejal 68 mg by Subdermal route. Active [facility] UNIDENTIFIED MED (UNIDENTIFIED MEDICATION) Vitamin- Calcium/D3/mine [...] this topic Medical Devices Implanted Type Area Electric Serviceman Device Identifier Shelf Expiration Date Model / Serial / Lot Screws Description:6 screws implant ed Nexplanon Sentiva Battery Model 1000 Implanted:Qty: 1 on 03/27/2018 by Jose D Pitts MD at [facility] 09/03/2019 1000 / [id number] / Explanted Type Area Electric Serviceman Device Identifier Shelf Expiration Date Model / Serial / Lot Vagal Nerve Stimulator Explanted:Qty: 1 on 03/27/2018 at [facility] Insurance [facility] * Guarantor: Rowena Byers Account Type Relation to Patient Date of Phone Billing Address Personal/Family Self 1990 [address] [place] [address] [facility] [place] [address] [place] [address] [facility] [address] Care Teams Scalping Machine Operator Relationship Specialty Start Date End Date Pcp, No [place] [address] PCP - General 09/29/19
--- OUTSIDE RECORDS SUMMARY | 2024-08-03 06:18 | XMS_ITS | Encounter Summary ---
Author Organization [facility] Address [address] [place] [place] [address] Care Team Providers Care Web Site Admin Name Role Phone Tim Rolon DO Primary Care Provider [phone] Encounter Details Date Type Department Care Team (Late Contact Info) Description 10/28/2023 Orders Only [facility] [address] [facility] [place] [place] [address] Francine Byrd MA [address] [place] [address] Social History Tobacco Use Types Packs/Day Years [...] Visit [facility] BCP OB [address] [place] [address] Donovan Burks DO [address] [place], [place] [id number] documented as of this encounter Procedures Procedure Name Priority Date/Time Associated Diagnosis Comments PAP SMEAR Routine 10/20/2023 12:00 AM EDT documented in this encounter Results * Pap Smear (10/20/2023 12:00 AM EDT) Swab Cervical swab / Unknown us Donovan Burks DO LAB CYTOLOGY ORDERABLES Final Re sult EXTERNAL LAB documented in this encounter Visit Diagnoses Not on filedocumented in this encounter Care Teams Web Site Admin Relationship Specialty Start Date End Date Tim Rolon DO [address] [place] [address] PCP - General Internal Medicine 08/08/22 documented as of this encounter
--- OUTSIDE RECORDS SUMMARY | 2024-08-03 06:18 | XMS_ITS | Encounter Summary ---
Author Organization [facility] Address [address] [place] [address] Care Team Providers Care Perinatal Instructor Name Role Phone GonzalesTim Primary Care Provider [phone] Reason for Visit * Reason Comments Med Refill Encounter Details Date Type Department Care Team (Late st Contact Info) Description 07/12/2024 Refill [facility] OB [address] [facility] [place] [address] Donovan Burks DO [address] [facility] [address] [place], [place] [phone] Anovulation Social History Tobacco Use Types Packs/Day [...] 07/20/2024 11:53 AM EDT Please refer towards [facility] for Fertility consult. * Telephone Encounter - Gabbie Lane LPN - 07/13/2024 8:22 AM EDT Sent 07/12/2024 documented in this encounter Plan of Treatment Upcoming Encounters Date Type Department Care Team (Late st Contact Info) Description 10/28/2024 9:00 AM EDT Office Visit [facility] B[facility] OB [address] [facility] [place] [address] Donovan Burks DO [address] [facility] [address] [place], [place] [id number] documented as of this encounter Visit Diagnoses Diagnosis Anovulation Female infertility associated with anovulation documented in this encounter Care Teams Perinatal Instructor Relationship Specialty Start Date End Date Tim Rolon DO [address] [facility] [place] [address] PCP - General Internal Medicine 08/08/22 documented as of this encounter
--- OUTSIDE RECORDS SUMMARY | 2024-08-03 06:18 | XMS_ITS | Clinical Summary ---
Author Organization [facility] Address [address] [place], [place] [id number] Care Team Providers Care Retail Team Leader Name Role Phone Tim Rolon DO Primary Care Provider Donovan Burks DO Unavailable [phone] Social History Tobacco Use Types Packs/Day Years [...] AM EDT Office Visit Reproductive Endocrinology Infertility [address] [place] [address] Tomer Clements MD [address] [place] [address] Donovan Burks's office referring the [...] 2023 Influenza Vaccine (Season Ended) 2024 Insurance [facility] MEDICAID Care Teams Retail Team Leader Relationship Specialty Start Date End Date Tim Rolon DO [address] [place] [address] PCP - General Internal Medicine 07/26/24 Donovan Burks DO [address] [place] [address] [place] [address] Referring Manager Online 07/26/24
--- OUTSIDE RECORDS SUMMARY | 2024-08-03 06:18 | XMS_ITS | Clinical Summary ---
Author Organization [employer] Address [id number] [address] [place] [address] Care Team Providers Care Occupational Physician Name Role Phone Unavailable Primary Care Provider [...]
--- OUTSIDE RECORDS SUMMARY | 2024-08-03 06:18 | XMS_ITS | Clinical Summary ---
Demographics Address [address] [place] [address] Home Phone Mobile Phone Email Address Email Address Preferred Language Sinhala Marital Status Single Hinduism Affiliation Unknown Race White Ethnic Group Not or Lati no Author Organization [facility] Address [address] [place] [address] Care Team Providers Care Manager Global Communications Name Role Phone Jakob Light MD Primary Care Provider [phone] Allergies Active Allergy Reactions Criticality Noted Date [...] on file Medical Devices Implanted Type Area Occ Therapy Asst Device Identifier Shelf Expiration Date Model / Serial / Lot 32 Kwire Implanted:Qty: 3 on 07/18/2016 by Diallo Padilla MD at [facility] Leg/Ankle /Foot/Toe Right: Ankle Screw Schnz Ext Fix Self [id number] Implanted:Qty: 1 on 07/18/2016 by Diallo Padilla MD at [facility] Screw/[place] te/Nail/R od Right: Ankle [id number] / / Screw Schnz Ext Fix Self [id number] Implanted:Qty: 1 on 07/18/2016 by Diallo Padilla MD at [facility] Screw/[place] te/Nail/R od Right: Ankle SYNTHES-PMM [id number] / / Screw Padmini Shrt Thrd Ss 4.0x28mm Implanted:Qty: 1 on 08/21/2016 at [facility] Screw/[place] te/Nail/R od SYNTHES-PMM [id number] / / Screw Padmini Shrt Thrd Ss 4.0x32mm Implanted:Qty: 1 on 08/21/2016 at [facility] Screw/[place] te/Nail/R od SYNTHES-PMM [id number] / / Screw Padmini Shrt Thrd Ss 4.0x38mm Implanted:Qty: 2 on 08/21/2016 at [facility] Screw/[place] te/Nail/R od SYNTHES-PMM [id number] / / Screw Padmini Shrt Thrd Ss 4.0x40mm Implanted:Qty: 1 on 08/21/2016 at [facility] Screw/[place] te/Nail/R od SYNTHES-PMM [id number] / / Washer Scrw Padmini Ss 4.0x7mm Implanted:Qty: 5 on 08/21/2016 at [facility] Screw/[place] te/Nail/R od SYNTHES-PMM [id number] / / Washer Scrw Padmini Ss 6.5x13mm Implanted:Qty: 2 on 08/21/2016 at [facility] Screw/[place] te/Nail/R od SYNTHES-PMM [id number] / / Explanted Type Area Occ Therapy Asst Device Identifier Shelf Expiration Date Model / Serial / Lot Screw Padmini Shrt Thrd Ss 4.0x30mm Explanted:Qty: 1 on 08/21/2016 at [facility] Screw/Plat e/Nail/Reed SYNTHES-PMM [id number] / / Screw Padmini Shrt Thrd Ss 4.0x36mm Explanted:Qty: 1 on 08/21/2016 at [facility] Screw/Plat e/Nail/Reed SYNTHES-PMM [id number] / / Screw Cortx Slftp Lg Frag 4.5x32mm Implanted:Qty: 1 Explanted:Qty: 1 on 08/21/2016 at [facility] Screw/Plat e/Nail/Reed SYNTHES-PMM [id number] / / Screw Cortx Slftp Lg Frag 4.5x40mm Implanted:Qty: 1 Explanted:Qty: 1 on 08/21/2016 at [facility] Screw/Plat e/Nail/Reed SYNTHES-PMM [id number] / / Screw Cortx Slftp Lg Frag 4.5x42mm Implanted:Qty: 1 Explanted:Qty: 1 on 08/21/2016 at [facility] Screw/Plat e/Nail/Reed SYNTHES-PMM [id number] / / Washer Scrw Padmini Ss 6.5x13mm Explanted:Qty: 1 on 08/21/2016 at [facility] Screw/Plat e/Nail/Reed SYNTHES-PMM [id number] / / Screw Padmini Shrt Thrd Ss 4.0x26mm Explanted:Qty: 1 on 08/21/2016 at [facility] Screw/Plat e/Nail/Reed SYNTHES-PMM [id number] / / Insurance * Guarantor: Rowena Byers Account Type Relation to Patient Date of Phone Billing Address Personal/Family Self 1990 [address] [place] [address] [facility] [address] [place] [address] [facility] [address] [place] [address] [address] [place] [address] * Guarantor: Rowena Byers Account Type Relation to Patient Date of Phone Billing Address Personal/Family Self 1990 [address] [place] [address] Advance Directives * Full Code (Latest Code Status on File) Date Activated Date Inactivated Comments 07/17/2016 8:18 PM 07/19/2016 3:16 PM Care Teams Manager Global Communications Relationship Specialty Start Date End Date Jakob Light MD [address] [facility] [place] [address] PCP - General 02/25/11
[2024-08-03 12:08] LABS: Progesterone 32.3 ng/mL (.)
== END 2024-08-02 | disposition home or self-care (01) ==
LOC: LAB 08-03 06:16
PROVIDERS: PCP Internal Medicine; Visit Provider Obstetrics & Gynecology
DX: N97.9 Female infertility, unspecified (principal); N97.0 Female infertility associated with anovulation
CPT/HCPCS: 36415; 84144

== ENCOUNTER 2024-09-04 11:03 | Outpatient (OUT) | payer OTHER, SELFPAY ==
--- OUTSIDE RECORDS SUMMARY | 2021-05-03 05:47 | XMS_ITS | Continuity of Care Document ---
Author [facility] [employer] [facility] Address [address] [facility] [place] [address] Phone Care Team Providers Care Pricing Manager Name Role Phone Jefe Dowell MD Unavailable [...] Provider Providers Copied on Encounter [facility], [address] [place] [address], [id number] , tel:+ [phone] [facility] No Information 2 Delmer Mayberry. [address], [id number], [place]. tel:[phone] [facility], [address] [place] [address], [id number] , [place] tel:+ [phone] [facility] Wants Nexplanon (chief complaint) Encounter for contraceptive management, unspecified 6 No Information PREV VISIT, EST, AGE 18-39 [facility], [address] [place] [address], [place], [place], [id number] , [place] tel: [phone] [facility] PAP test (chief complaint) Well woman examDepo-Prov era contraceptive statusAmenorr heaRoutine screening for STI (sexually transmitted infection)Cer vical cancer screening 5 No [employer] [facility], [address], Felice [place]ers [place], [id number] , [place] tel:[phone] [facility] Depo (chief complaint) Encounter for other contraceptive management 5 No Information OFFICE/OUTPA TIENT VISIT, [facility] [employer] [facility], [address], [place], [id number] , [place] tel:+ [phone] [facility] sinus symptoms (chief complaint) Acute recurrent maxillary sinusitis 5 No [employer] [facility], [address] [place] [address] [address], [place], [id number] , [place] tel:[phone] [facility] depo Provera (chief complaint) Other general counseling and advice on contraceptive management 5 No [employer] [facility], [address] [place] [address] [address], [place], [id number] , [place] tel:[phone] [facility] Depo Provera (chief complaint) Other general counseling and advice on contraceptive management 5 No [employer], [address] [place] [address] [address], [place], [id number] , [place] tel:+ [phone] [facility] No Information 5 No [employer], [address] [place] [address] [address], [place], [id number] , [place] tel:+ [phone] [facility] Unspecified contraceptive managementOth er general counseling and advice on contraceptive management 5 No [employer], [address] [place] [address] [address], [place], [id number] , [place] tel:[phone] [facility] depo injection (chief complaint) Other general counseling and advice on contraceptive management 4 No [employer], [address] [place] [address] [address], [place], [place], [id number] , [place] tel:+ [phone] [facility] No Information 4 No [employer], [address] [facility], [place], [place], [id number] , [place] tel:+ [phone] [facility] No Information 4 No Information PREVENTIVE COUNSELING, INDIV [employer] [employer] [facility], [address] [place] [address], [place], [place], [id number] , [place] tel:+ [phone] [facility] pap results (chief complaint) Sexually transmitted disease counselingCer vical high risk HPV (human papillomaviru s) test positive 4 No Information [employer] [employer] [facility], [address] [place] [address], [place], [place], [id number] , [place] tel:+ [phone] [facility] No Information 4 No Information PREV VISIT, EST, AGE 18-39 [place] [employer] [facility], [address] [place] [address], [id number] , [place] tel:+ [phone] [facility] PAP test (chief complaint) Gynecologic ExamCervical cancer screeningRout ine screening for STI (sexually transmitted infection)Dep o-Provera contraceptive statusOther specified contraceptive management 4 No Information [employer] [employer] [facility], [address] [place] [address], [place], [place], [id number] , [place] tel:+ [phone] [facility] Depo Injection (chief complaint) Other specified contraceptive management 4 No Information [employer] [facility], [address] [place] [address], [id number] , [place] tel:+ [phone] [facility] No Information 4 No Information [employer] [facility], [address] [place] [address], [place], [place], [id number] , [place] tel:+ [phone] [facility] depo provera injection (chief complaint) No Information 4 No Information OFFICE/OUTPA TIENT VISIT, [facility] [employer] [facility], [address] [place] [address], [place], [place], [id number] , [place] tel:+ [phone] [facility] fever (chief complaint) Influenza with other respiratory manifestation sUnspecified sinusitis (chronic)Conj unctivitis 4 No Information OFFICE/OUTPA TIENT VISIT, EST [facility], [address] [place] [address], [id number] , tel:+ [phone] [facility] contraceptive follow up (chief complaint) Surveillance for Depo-Provera contraception 4 No Information [facility], [address] [place] [address], [place], [place], [id number] , tel: [phone] [facility] depo shot (chief complaint) Allergic rhinitis, cause unspecifiedEp ilepsy, unspecified, without mention of intractable epilepsyOther general counseling and advice on contraceptive management 3 Lian Samson. [address] [place], [place], [id number], [place]. tel:[phone] Referring Provider: Mali Menjivar [address] [place], [address] . tel:[phone] [facility], [address] [place] [address], [id number] , [place] tel: [phone] [facility] depo injection (chief complaint) No Information 3 No Information [facility], [address] [place] [address], [id number] , [place] tel:+ [phone] [facility] No Information 3 No Information Family History Family Member Type Diagnosis Age At Onset Mother Problem (finding) hypertension Father Problem (finding) GERD Payers Payer name Insurance type Covered green party ID Authorconchisa cynthia(s) [facility] [id number] Social History Type Description Quantity Date Captured Comments Sex Female Smoking Status No Information Chief Complaint And Reason For Visit No Information Reason For Referral Reason For Referral No Information Plan Of Treatment Date Type Action Status Goal Colonoscopy. Due on 016 due Goal Mammogram. Due on 6 due Goal MAJOR ASSEMBLY LINEMAN/Breast exam. Due on due Goal Influenza vaccine. [...] THER/PROPH/DIAG INJ, SC/IM. Due on due Goal Mammogram. Due on 5 due Goal Colonoscopy. Due on 015 due Goal MAJOR ASSEMBLY LINEMAN/Breast exam. Due on due Goal HPV (1st). [...] on 015 due Goal Mammogram. Due on 5 due Goal MAJOR ASSEMBLY LINEMAN/Breast exam. Due on due Goal HPV (1st). Due on due Goal Td vaccine. Due [...] Goal Colonoscopy. Due on 015 due Goal MAJOR ASSEMBLY LINEMAN/Breast exam. Due on due Goal HPV (1st). Due on 5 due Goal Influenza vaccine. Due on due Goal Td vaccine. Due on 15 due Goal Pap liquid based for cytology. [...] Goal Colonoscopy. Due on 015 due Goal MAJOR ASSEMBLY LINEMAN/Breast exam. Due on due Goal HPV (1st). [...] due Goal Mammogram. Due on due Goal MAJOR ASSEMBLY LINEMAN/Breast exam. Due on due Goal Td vaccine. Due on 15 due Goal Influenza vaccine. Due on due Goal Tdap. Due on due Goal HPV (1st). Due on 5 due Goal Pap/HPV testing. Due on due [...] Goal OARRS. Due on du e Goal MAJOR ASSEMBLY LINEMAN/Breast exam. Due on due Goal HPV (1st). Due on 5 due Goal Tdap. Due on due Goal Td vaccine. Due on 15 due Goal Influenza vaccine. Due on due Goal HPV, high+low-ri sk. Due on due Goal Pap liquid based for cytology. Due on due Goal Pap/HPV testing. Due on due Goal Glucose. Due on due Goal URINALYSIS NONAU TO W/O SCOPE. Due on due Goal Medroxyprogester one inj. Due on due Goal Depression scree susan. Due on due Goal OARRS. Due on du e Goal THER/PROPH/DIAG INJ, SC/IM. Due on due Goal INSERT DRUG IMPL ANT DEVICE. Due on due Goal MAJOR ASSEMBLY LINEMAN/Breast exam. Due on due Goal HPV (1st). Due on 4 due Goal Tdap. Due on due Goal Influenza vaccine. Due on due Goal Td vaccine. Due on 14 due Goal Pap liquid based for cytology. Due on due Goal Pap/HPV testing. Due on due Goal HPV, high+low-ri sk. Due on due Goal Glucose. Due on due Goal URINALYSIS NONAU TO W/O SCOPE. Due on due Goal Medroxyprogester one inj. Due on due Goal Depression scree susan. Due on due Goal OARRS. Due on du e Goal THER/PROPH/DIAG INJ, SC/IM. Due on due Goal INSERT DRUG IMPL ANT DEVICE. Due on due Goal MAJOR ASSEMBLY LINEMAN/Breast exam. Due on due Goal Influenza vaccine. Due on due Goal HPV (1st). Due on 4 due Goal Tdap. Due [...] Radiol ogy Order BD Bone Density DEXA ([id number]), Ordered on: Ordered Future Order: Lab Order Pap Liqu id Based For Cytology ([id number]), Appointment on: , Collected on: Ordered Future Order: Lab Order Pap Liqu id Based For Cytology ([id number]), Appointment on: , Collected on: Ordered History [...] July. She is looking for job in [employer]. Depo Injection Last Depo Apr.Next Depo Oct 21- Nov 04 Functional Status Date Functional Assessmen t No Information Instructions Date Instruction Additional Infor kristie See [facility] handout on N explanon after care. [...] Cervical cancer screening It is important to c onsistently use [...] Routine screening for STI (sexually transmitted infection) It is important to h ave STI [...]
--- OUTSIDE RECORDS SUMMARY | 2024-09-04 11:05 | XMS_ITS | Encounter Summary ---
Author Organization [facility] Address [address] [place] [address] Care Team Providers Care Kaiako Kohanga Reo Name Role Phone Tim Rolon DO Primary Care Provider [phone] Encounter Details Date Type Department Care Team (Late Contact Info) Description 10/28/2023 Orders Only [facility] BCP OB 102 [facility] [address] Francine Byrd MA [address] [place] [address] Social History Tobacco Use Types Packs/Day Years [...] Visit [facility] BCP OB [address] [place] [address] Donovan Burks DO [address] [place], [place] [address] documented as of this encounter Procedures Procedure Name Priority Date/Time Associated Diagnosis Comments PAP SMEAR Routine 10/20/2023 12:00 AM EDT documented in this encounter Results * Pap Smear (10/20/2023 12:00 AM EDT) Swab Cervical swab / Unknown us Donovan Burks DO LAB CYTOLOGY ORDERABLES Final Re sult EXTERNAL LAB documented in this encounter Visit Diagnoses Not on filedocumented in this encounter Care Teams Kaiako Kohanga Reo Relationship Specialty Start Date End Date Tim Rolon DO [address] [place] [address] PCP - General Internal Medicine 08/08/22 documented as of this encounter
--- OUTSIDE RECORDS SUMMARY | 2024-09-04 11:05 | XMS_ITS | Clinical Summary ---
Author Organization [facility] Address [address] [place] [address] Care Team Providers Care Receiving Dock Checker Name Role Phone Tim Rolon DO Primary Care Provider [phone] Allergies Active Allergy Reactions Criticality Noted Date Comments Other Runny nose Medium 03/15/2011 Other Reaction(s): Nasal Congestion Pollen Extract Runny nose Medium 08/21/2016 Other Reaction(s): Congestion Medications loratadine-pse udoephedrine ER (Claritin-D 12-hour) 5-120 MG 12 hr [...] MG tablet Take by mouth. Active Multiple Vitamins-Road Grader als (CULTURELLE PROBIOTICS + MULTIV PO) Take by mouth Active Calcium Carb-Cholecalc iferol 600-12.5 MG-MCG capsule 4 Active escitalopram (Lexapro) 20 MG tablet 1 tablet Orally at bedtime Active lamoTRIgine (LaMICtal XR) 300 mg tablet sustained-rele ase 24 hour 24 hr tablet Take 300 mg by mouth at bedtime Active loratadine (Claritin) 10 MG tablet Take 10 mg by mouth Daily as needed Active metFORMIN XR (Glucophage-XR ) 500 MG 24 hr tabletIndicati ons:PCOS (polycystic ovarian syndrome) TAKE 1 TABLET BY MOUTH EVERY DAY WITH EVENING MEAL 90 tablet 3 5 Active Clomid 50 MG tabletIndicati ons:Anovulatio n TAKE 2 TABLETS BY MOUTH ONCE A DAY ON DAYS 3-7 OF CYCLE FOR 5 DAYS 10 tablet 5 Active Clomid 50 MG tabletIndicati ons:Anovulatio n TAKE 2 TABLETS BY MOUTH ON DAYS 3-7 OF CYCLE 10 tablet 5 08/17/19 25 Discontinued Active Problems Problem Noted Date Diagnosed Date [...] Encounters Date Type Department Care Team Description 08/16/2024 Refill [facility] [address] [place] [address] Donovan Burks, DO Anovulation 08/01/2024 Clinisync Result Encounter NOMS External Department Unsolicited Donovan Burks, DO 07/29/2024 Abstract [facility] [place] [address] [place] [address] Donovan Burks, DO 07/20/2024 11:10 AM EDT Office Visit [facility] OB [address] [place] [address] Donovan Burks, DO Skin tag 07/20/2024 External Result Encounter NOMS External Department Unsolicited Donovan Burks, DO 07/20/2024 Bamboo flowsheet NOM[facility] [address] [place] [address] Donovan Burks, DO 07/12/[address] [place] [address] Donovan Burks, 07/12/[address] [address] [place] [address] Donovan Burks DO Anovulation 06/28/2024 Clinisync Result Encounter NOMS External Department Unsolicited Donovan Burks, 06/08/20[address] [address] [place] [address] Shara Hopper LPN from Last 3 Months Family History Medical [...] 10/28/2024 9:00 AM EDT Office Visit [facility]OM[facility] [address] [place] [address] Donovan Burks [address] [place] [address] [place] [address] Procedures Procedure Name Priority Date/Time Associated Diagnosis Comments ALL PROGESTERONE Routine 08/01/2024 12:4 5 PM EDT PATHOLOGY REQUEST FOR LAB HELGA Routine 07/20/2024 12:00 AM EDT ALL PROGESTERONE Routine 06/28/2024 4:43 PM EDT from Last 3 Months Results * ALL PROGESTERONE (08/01/2024 12:45 PM EDT) Only the most recent of2 resultswithin the time period is included. PROGESTERONE 32.3 . ng/mL [facility] Comment: Follicular phase 0.1 - 0.9 Luteal phase 1.8 - 23.9 Ovulation phase 0.1 - 12.0 First trimester 11.0 - 44.3 Second trimester 25.4 - 83.3 Third trimester 58.7 - 214.0 Postmenopausal 0.0 - 0.1 Performed at: - [facility] [address] [id number] Hydro Excavation Operator: Ino Dougherty PhD, Phone: [phone] 08/01/2024 12:4 5 PM EDT 08/01/2024 12:53 PM EDT Narrative [facility] - 08/03/2024 12:08 PM EDT Donovan Burks DO [facility] Final Result [facility] * PATHOLOGY REQUEST FOR LAB HELGA (07/20/2024 12:00 AM EDT) PATHOLOGY REQUEST FOR LAB HELGA 07/27/2024 9:00 AM EDT [facility] Comment:See report. Scanned copy available in EMR. Other Topography unknown / Unknown 07/20/2024 07/21/2024 1:15 PM EDT Narrative [facility] - 07/27/2024 9:00 AM EDT SKIN TAG us Donovan Burks DO LAB BLOOD ORDERABLES Final Resul t [facility] [address] [place] [address], [facility] [address] [facility] [place] [address] from Last 3 Months Insurance [employer]ICA[employer] Care Teams Receiving Dock Checker Relationship Specialty Start Date End Date Tim Rolon DO [address] [place] [address] PCP - General Internal Medicine 08/08/22
--- OUTSIDE RECORDS SUMMARY | 2024-09-04 11:05 | XMS_ITS | Encounter Summary ---
Author Organization [facility] Address [address] [place] [address] Care Team Providers Care Channel Specialist Name Role Phone Tim Rolon DO Primary Care Provider [phone] Reason for Visit * Reason Comments Med Refill Encounter Details Date Type Department Care Team (Late st Contact Info) Description 01/29/2024 Refill [facility] OB [address] [facility] [phone] Donovan Burks [address] [place], [facility] Female infertility; Anovulation Social History Tobacco Use [...] 10/28/2024 9:00 AM EDT Office Visit [facility] OB [address] [place] [address] Donovan Burks DO [address] [facility] [address] [place], [place] [address] documented as of this encounter Visit Diagnoses Diagnosis Female infertility Female infertility of unspecified origin Anovulation Female infertility associated with anovulation documented in this encounter Care Teams Channel Specialist Relationship Specialty Start Date End Date Tim Rolon DO [address] [facility] [place] [address] PCP - General Internal Medicine 08/08/22 documented as of this encounter
--- OUTSIDE RECORDS SUMMARY | 2024-09-04 11:05 | XMS_ITS | Encounter Summary ---
Author Organization [facility] Address [address] [place] [address] Care Team Providers Care Verification Lead Name Role Phone GonzalesTim Primary Care Provider [phone] Reason for Visit * Reason Comments Med Refill Encounter Details Date Type Department Care Team (Late st Contact Info) Description 07/12/2024 Refill [facility] OB [address] [place] [address] Donovan Burks DO [address] [facility] [address] [place], [place] [phone] Anovulation Social History Tobacco Use Types Packs/Day [...] 07/20/2024 11:53 AM EDT [facility] refer towards [facility] for Fertility consult. * Telephone Encounter - Gabbie Lane LPN - 07/13/2024 8:22 AM EDT Sent 07/12/2024 documented in this encounter Plan of Treatment Upcoming Encounters Date Type Department Care Team (Late st Contact Info) Description 10/28/2024 9:00 AM EDT Office Visit [facility] BCP OB [address] [facility] [place] [address] Donovan Burks DO [address] [facility] [address] [place] [place], [place] [address] documented as of this encounter Visit Diagnoses Diagnosis Anovulation Female infertility associated with anovulation documented in this encounter Care Teams Verification Lead Relationship Specialty Start Date End Date Tim Rolon DO [address] [place] [address] PCP - General Internal Medicine 08/08/22 documented as of this encounter
--- OUTSIDE RECORDS SUMMARY | 2024-09-04 11:05 | XMS_ITS | Clinical Summary ---
Author Organization [employer] Address [id number] [address] [place] [address] Care Team Providers Care Game Design Instructor Name Role Phone Unavailable Primary Care Provider [...]
--- OUTSIDE RECORDS SUMMARY | 2024-09-04 11:05 | XMS_ITS | Clinical Summary ---
Author Organization [facility] Address [address] [place] [address] Care Team Providers Care Research Dairy Farm Supervisor Name Role Phone Pcp, No Primary Care Provider [phone] Allergies Active Allergy Reactions Criticality Noted Date Comments Environmental Runny Nose,Nasal Congestion 03/15 Medications LORATADINE 10 mg oral tablet take by mouth once daily. prn Active etonogestrel (NEXPLANON) 68 mg subdermal sejal 68 mg by Subdermal route. Active [facility] UNIDENTIFIED MED (UNIDENTIFIED MEDICATION) Vitamin- [...] - 2023-2 5 season) 2023 Influenza Vaccine (Season Ended) 2024 01/05/20 14 HIB Vaccine Aged Out No longer eligi [...] this topic Medical Devices Implanted Type Area Train Driver Device Identifier Shelf Expiration Date Model / Serial / Lot Screws Description:6 screws implant ed Nexplanon Sentiva Battery Model 1000 Implanted:Qty: 1 on 03/27/2018 by Jose D Pitts MD at [facility] 09/03/2019 1000 / [id number] / Explanted Type Area Train Driver Device Identifier Shelf Expiration Date Model / Serial / Lot Vagal Nerve Stimulator Explanted:Qty: 1 on 03/27/2018 at [facility] Insurance [facility] * Guarantor: Rowena Byers Account Type Relation to Patient Date of Phone Billing Address Personal/Family Self 1990 [address] [place] [address] [facility] [address] Care Teams Research Dairy Farm Supervisor Relationship Specialty Start Date End Date Pcp, No [place] [address] PCP - General 09/29/19
--- OUTSIDE RECORDS SUMMARY | 2024-09-04 11:05 | XMS_ITS | Encounter Summary ---
Author Organization [facility] Address [address] [facility] [place] [address] Care Team Providers Care Imaging Manager Name Role Phone Tim Rolon DO Primary Care Provider [phone] Reason for Visit * Reason Comments Med Refill Encounter Details Date Type Department Care Team (Late Contact Info) Description 06/20/2023 Refill [facility] OB [address] [facility] [place] [address] Donovan Burks [address] [place], [place] [address] Female infertility; Fallopian tube disorder Social History [...] 10/28/2024 9:00 AM EDT Office Visit [facility] OB [address] [place] [address] Donovan Burks, [address] [place], [place] [address] Scheduled Orders Name Type Priority Associated Diagnoses [...] ligament documented in this encounter Care Teams Imaging Manager Relationship Specialty Start Date End Date Tim Rolon DO [address] [place] [address] PCP - General Internal Medicine 08/08/22 documented as of this encounter
--- OUTSIDE RECORDS SUMMARY | 2024-09-04 11:05 | XMS_ITS | Encounter Summary ---
Author Organization [facility] Address [address] [place] [address] Care Team Providers Care Recreational Sports Director Name Role Phone Pcp, No Primary Care Provider [phone] Encounter Details Date Type Department Care Team (Late st Contact Info) Description 12/27/2010 Orders Only [facility] Main [address] [place] [address] Historical, Provider Social History Tobacco Use Types [...] ORDERABLES Final R esult Performing Organization Address [facility] de Phone Number EXTERNAL LAB * AST (12/12/2010) Blood us Provider Historical CHEMISTRY ORDERABLES Final R esult Performing Organization Address [facility] de Phone Number EXTERNAL LAB * VALPROIC ACID LEVEL (12/12/2010) Provider Historical DRUG LEVEL ORDERABLES Final Result Performing Organization Address [facility] de Phone Number EXTERNAL LAB * Comprehensive Metabolic Panel (Lytes/BUN/Creat/Gluc/Alb/Total Bili/Ca/Alk Phos/AST/ALT/Total Prot) (12/11/2010) Blood Provider Historical CHEMISTRY ORDERABLES Final R esult Performing Organization Address [facility] de Phone Number EXTERNAL LAB * MONO SCREEN (12/10/2010) Blood Provider Historical IMMUNOLOGY/SEROLOGY ORDERABL ES Final Result Performing Organization Address [facility] de Phone Number EXTERNAL LAB * CBC W/AUTOMATED DIFF, REFLEX TO MANUAL (12/10/2010) Blood Provider Historical HEMATOLOGY ORDERABLES Final Result Performing Organization Address [facility] de Phone Number EXTERNAL LAB documented in this encounter Visit Diagnoses Not on filedocumented in this encounter Care Teams Recreational Sports Director Relationship Specialty Start Date End Date Pcp, [place] [address] PCP - General 09/29/19 documented as of this encounter
--- OUTSIDE RECORDS SUMMARY | 2024-09-04 11:06 | XMS_ITS | Encounter Summary ---
Author Organization [facility] Address [address] [place] [facility] [place] [address] Care Team Providers Care Sheltered Workshop Executive Director Name Role Phone Tim Rolon DO Primary Care Provider [phone] Reason for Visit * Reason Comments Med Refill Encounter Details Date Type Department Care Team (Late Contact Info) Description 05/20/2023 Refill [facility] OB [address] [facility] [place] [address] Donovan Burks [address] [place], [place] [address] Female infertility Social History Tobacco Use Types [...] 9:00 AM EDT Office Visit [facility] OB [address] [facility] [place] [place] [address] Donovan Burks [facility] [address] [place], [place] [address] documented as of this encounter Visit Diagnoses Diagnosis Female infertility Female infertility of unspecified origin documented in this encounter Care Teams Sheltered Workshop Executive Director Relationship Specialty Start Date End Date Tim Rolon DO [address] [place] [address] PCP - General Internal Medicine 08/08/22 documented as of this encounter
--- OUTSIDE RECORDS SUMMARY | 2024-09-04 11:06 | XMS_ITS | Encounter Summary ---
Author Organization [facility] Address [address] [place] [address] Care Team Providers Care Supervisor Net Making Name Role Phone Tim Rolon DO Primary Care Provider [phone] Encounter Details Date Type Department Care Team (Late st Contact Info) Description 06/27/2023 Clinisync Result Encounter [facility] External Department Unsolicited Yolanda Burks, DO [address], [facility] Social History Tobacco Use Types Packs/Day Years [...] Visit [facility] [place] [address] [place] [id number] Yolanda Burks DO [address], [place] [id number] documented as of this encounter Procedures Procedure Name Priority Date/Time Associated Diagnosis Comments FL HYSTEROSALPINGOGRAPHY 024 11:28 AM EDT documented in this encounter Results * FL HYSTEROSALPINGOGRAPHY (06/27/2023 11:28 AM EDT) Anatomical Region Laterality Modality Other 06/27/2023 11:2 8 AM EDT Narrative 06/27/2023 11:30 AM EDT [address] [address] Fluoroscopy Report Signed Patient: ROWENA GUADALUPE MR#: [id number] : 1990 Acct:[id number] Age/Sex: 32 / F ADM Date: 06/27/23 Loc: LAB Attending Dr: Yolanda Burks D.O. Ordering Physician: Yolanda Burks D.O. Date of Service: 06/27/23 Procedure(s): FL hysterosalpingography Accession Number(s): [id number] cc: Tim Rolon D.O.; Yolanda Burks D.O. [place] [address] Patient Name: ROWENA DRAKE MRN: [id number] date: 1990 Sex: F Assigned Patient Location: LAB Current Patient Location: LAB Accession/Order Number: [id number] Exam Date: 06/27/2023 10:15 Report Date: 06/27/2023 [...] Signed By: 06/27/23 1130 DD/ 1128 TD/TT: Forge Operator: Procedure Note Radiology, Radiologist, MD - 06/27/2023 [place] [address] Fluoroscopy Report Signed Patient: ROWENA GUADALUPE BMR#: [id number] : 1990Acct:[id number] Age/Sex: 32 / FADM Date: 06/27/23 Loc: LAB Attending Dr: Yolanda Burks D.O. Ordering Physician: Yolanda Burks D.O. Date of Service: 06/27/23 Procedure(s): FL hysterosalpingography Accession Number(s): [id number] cc: Tim Rolon D.O.; Yolanda Burks D.O. The [place] [address] Patient Name: ROWENA DRAKE MRN: [id number] date: 1990 Sex: F Assigned Patient Location: LAB Current Patient Location: LAB Accession/Order Number: [id number] Exam Date: 06/27/2023 10:15 Report Date: 06/27/2023 [...] M.D. Signed By:06/27/23 1130 DD/ 1128 TD/TT: Forge Operator: us Yolanda Burks DO [facility] Final Result documented in this encounter Visit Diagnoses Not on filedocumented in this encounter Care Teams Supervisor Net Making Relationship Specialty Start Date End Date Tim Rolon [place] [facility] [place] [id number] PCP - General Internal Medicine 08/08/22 documented as of this encounter
--- OUTSIDE RECORDS SUMMARY | 2024-09-04 11:06 | XMS_ITS | CCD ---
Author Organization [facility] [employer] Care Team Providers Care Launch Manager Name Role Phone JAMIL SMITH Referring Unavailable ARAI FORDE Primary Care Unavailable JAMIL SMITH Referring [...] Unavailable Tim Rolon DO Primary Care Provider [phone] Raoul WEB PRESS OPERATOR ASSISTANT-MARKETING PROPOSAL SPECIALIST, Crystal G Unavailable Tim Rolon MD Primary Care Provider DONOVAN BURKS Attending Unavailable Raoul WEB PRESS OPERATOR ASSISTANT-MARKETING PROPOSAL SPECIALIST, Crystal G Unavailable CORI HERNÁNDEZ Attending Unavailable TIM ROLON Primary Care Unavailable SELF, SELF Referring Unavailable TIM ROLON Referring Unavailable TIM ROLON Primary Care Unavailable CORI HERNÁNDEZ Attending Unavailable Tim Rolon MD Primary Care Provider Tim Rolon DO Primary Care Provider DONOVAN BURKS Attending Unavailable MADONNA PARSONS Attending Unavailable DONOVAN BURKS Attending Unavailable Donovan Burks DO Attending Provider [phone] Donovan Burks Attending Unavailable Donovan Burks Admitting Unavailable Allergies Allergy Classification Reported Allergen(s) Allergy Type Date of Onset Reaction(s) Facility (11 sources) Seasonal allergy Propensity to adverse reactions to drug 7 Runny Nose, Congestion [facility] Work Phone: (13 sources) Pollen Propensity to adverse reactions 7 Runny nose [facility] (13 sources) Other Propensity to adverse reactions 2 [...] mg / cholecalciferol 500 unt oral capsule (14 sources) Vitamin D Start: 2023 Calcium Carb-Cholecalciferol [...] Active clomiPHENE citrate 50 mg oral tablet (6 sources) Estrogen Agonist/Antagonist Start: 07-13-2024 Clomid 50 [...] 2023 12:00am escitalopram 20 mg oral tablet (12 sources) Serotonin Reuptake Inhibitor Start: 04-30-2021 take [...] sulfate 120 mg extended release oral tablet (13 sources) alpha-Adrenergic Agonist take 1 tablet by [...] Indications: 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 Active take 1 tablet by mouth once at b edtime Prenat MV-Min w/Se-Ovhzjf-RVM ( COMPLETE PO) Take 1 tablet by mouth at bedtime. 0 Active MV-Min-Fe Fum-FA-DH A ( 1 PO) (13 sources) MV-Min- Fe Fum-FA-DHA ( 1 PO) [...] SYNDROME] Onset: 05-23-2022 Chronic Other endocrine disorders (13 sources) Polycystic ovary syndrome; Translations: [Polycystic ovarian [...] Value Interpretation Reference Range Facility ALL PROGESTERONEon 05-27-202 5 PROGESTERONE 32.3 ng/mL . [facility] Comment on above: Follicular phase 0.1 - 0.9 Luteal phase 1.8 - 23.9 Ovulation phase 0.1 - 12.0 First trimester 11.0 - 44.3 Second trimester 25.4 - 83.3 Third trimester 58.7 - 214.0 Postmenopausal 0.0 - 0.1 Performed at: [address] [id number] Braiding Operator: Ino Dougherty PhD, Phone: [phone] [facility] PATHOLOGY REQUEST FOR LAB CO RPon 07-27-2024 PATHOLOGY REQUEST FOR LAB HELGA [facility] Comment on above: See report. Scanned copy available in EMR. SKIN TAG [facility] Pathology Request for Lab Co rpon 07-20-2024 Pathology Request for Lab Helga Normal [facility] Comment on above: Order Comment: SKIN TAG Result Comment: See report. Scanned copy available in EMR. PERFORMED BY: [place] [id number] PATHOLOGIST LONGWALL HEADGATE OPERATOR SAM MARTIN M.D. Performed By: #### [facility] #### [address] ALL PROGESTERONEon 5 PROGESTERONE 32.1 ng/mL . [facility] Comment on above: Follicular phase 0.1 - 0.9 Luteal phase 1.8 - 23.9 Ovulation phase 0.1 - 12.0 First trimester 11.0 - 44.3 Second trimester 25.4 - 83.3 Third trimester 58.7 - 214.0 Postmenopausal 0.0 - 0.1 Performed at: [address] [id number] Braiding Operator: Ino Dougherty PhD, Phone: [phone] [facility] Estimated glomerular filtrat ion rate (GFR) non- Americanon 06-28-2024 GFR/1.73 sq M.predicted among non-blacks MDRD (S/P/Bld) [Vol rate/Area] Estimated glomerular filtration rate (GFR) non- >=60 mL/min/1.73m 2 [facility] Globulin Calc (S) [Mass/Vol] on 06-28-2024 Globulin (S) [Mass/Vol] Serum globulin measurement by calculation (mass/volume) [facility] Laboratory - Chemistry and C hemistry - challengeon 06-28-2024 Albumin [Mass/Vol] 4.0 g/dL 3.4-5.0 [facility] ALP [Catalytic activity/Vol] 43 U/L Low 46-116 [facility] ALT [Catalytic activity/Vol] 18 U/L 14-59 [facility] AST [Catalytic activity/Vol] 14 U/L Low 15-37 [facility] Bilirubin [Mass/Vol] 0.2 mg/dL 0.2-1.0 [facility] Calcium [Mass/Vol] 9.3 mg/dL 8.5-10.1 [facility] Chloride [Moles/Vol] 103 mmol/L 98-107 [facility] CO2 [Moles/Vol] 26.9 mmol/L 21.0-32.0 [facility] Creatinine [Mass/Vol] 0.63 mg/dL 0.55-1.02 [facility] GFR/1.73 sq M.predicted MDRD (S/P/Bld) [Vol rate/Area] mL/min/{1.73_m2} >=60 mL/min/1.73m 2 [facility] Glucose [Mass/Vol] 89 mg/dL 74-106 [facility] Potassium [Moles/Vol] 4.4 mmol/L 3.5-5.1 [facility] Protein [Mass/Vol] 7.4 g/dL 6.4-8.2 [facility] Sodium [Moles/Vol] 138 mmol/L 136-145 [facility] Urea nitrogen [Mass/Vol] 13.0 mg/dL 7.0-18.0 [facility] Urea nitrogen/Creatinine [Mass ratio] 20.6 mg/mg [facility] No Panel Informationon 06-28 Lamotrigine (Lamictal) Level 4.8 ug/mL 2.0-20.0 [facility] Comment on above: Detection Limit = 1. 0Performed at: [facility] [id number] [place], [place] [id number] Director: Tana Gonzalez MD, Phone: [phone] Serum or plasma albumin/glob ulin mass ratioon 06-28-2024 Albumin/Globulin [Mass ratio] Serum or plasma albumin/globulin mass ratio [facility] Serum or plasma anion gap de terminationon 06-28-2024 Anion gap [Moles/Vol] Serum or plasma anion gap determination [facility] Serum or plasma progesterone measurement (mass/volume)on 06-28-2024 Progesterone [Mass/Vol] Serum or plasma progesterone measurement (mass/volume) . [facility] Comment on above: Follicular phase 0.1 - 0.9 Luteal phase 1.8 - 23.9 Ovulation phase 0.1 - 12.0 First trimester 11.0 - 44.3 Second trimester 25.4 - 83.3 Third trimester 58.7 - 214.0 Postmenopausal 0.0 - 0.1Performed at: [employer] [address] [id number] Director: Ino Dougherty PhD, Phone: [phone] ALL PROGESTERONEon PROGESTERONE 17.1 ng/mL . [facility] [employer] Comment on above: Follicular phase 0.1 - 0.9 Luteal phase 1.8 - 23.9 Ovulation phase 0.1 - 12.0 First trimester 11.0 - 44.3 Second trimester 25.4 - 83.3 Third trimester 58.7 - 214.0 Postmenopausal 0.0 - 0.1 Performed at: [facility] [address] [place], [place] [id number] Braiding Operator: Ino Dougherty PhD, Phone: [phone] [facility] [employer] Serum or plasma progesterone measurement (mass/volume)on 05-26-2024 Progesterone [Mass/Vol] Serum or plasma progesterone measurement (mass/volume) . [facility] Comment on above: Follicular phase 0.1 - 0.9 Luteal phase 1.8 - 23.9 Ovulation phase 0.1 - 12.0 First trimester 11.0 - 44.3 Second trimester 25.4 - 83.3 Third trimester 58.7 - 214.0 Postmenopausal 0.0 - 0.1Performed at: [address] [id number] Director: Ino Dougherty PhD, Phone: [phone] ALL PROGESTERONEon 4 PROGESTERONE 21.2 ng/mL . [facility] Comment on above: Follicular phase 0.1 - 0.9 Luteal phase 1.8 - 23.9 Ovulation phase 0.1 - 12.0 First trimester 11.0 - 44.3 Second trimester 25.4 - 83.3 Third trimester 58.7 - 214.0 Postmenopausal 0.0 - 0.1 Performed at: [address] [id number] Braiding Operator: Ino Dougherty PhD, Phone: [phone] [facility] ALL PROGESTERONEon 4 PROGESTERONE 25.4 ng/mL . [facility] Comment on above: Follicular phase 0.1 - 0.9 Luteal phase 1.8 - 23.9 Ovulation phase 0.1 - 12.0 First trimester 11.0 - 44.3 Second trimester 25.4 - 83.3 Third trimester 58.7 - 214.0 Postmenopausal 0.0 - 0.1 Performed at: [address] [id number] Braiding Operator: Ino Dougherty PhD, Phone: [phone] [facility] ALL PROGESTERONEon 4 PROGESTERONE 19.7 ng/mL . [facility] Comment on above: Follicular phase 0.1 - 0.9 Luteal phase 1.8 - 23.9 Ovulation phase 0.1 - 12.0 First trimester 11.0 - 44.3 Second trimester 25.4 - 83.3 Third trimester 58.7 - 214.0 Postmenopausal 0.0 - 0.1 Performed at: [address] [id number] Braiding Operator: Ino Dougherty PhD, Phone: [phone] [facility] ALL PROGESTERONEon 4 PROGESTERONE 20.0 ng/mL . [facility] Comment on above: Follicular phase 0.1 - 0.9 Luteal phase 1.8 - 23.9 Ovulation phase 0.1 - 12.0 First trimester 11.0 - 44.3 Second trimester 25.4 - 83.3 Third trimester 58.7 - 214.0 Postmenopausal 0.0 - 0.1 Performed at: [facility] [employer] [place], [place] [id number] Braiding Operator: Ino Dougherty PhD, Phone: [phone] [facility] Serum or plasma progesterone measurement (mass/volume)on 09-11-2023 Progesterone [Mass/Vol] 12.9 ng/mL . [facility] Comment on above: Follicular phase 0.1 - 0.9 Luteal phase 1.8 - 23.9 Ovulation phase 0.1 - 12.0 First trimester 11.0 - 44.3 Second trimester 25.4 - 83.3 Third trimester 58.7 - 214.0 Postmenopausal 0.0 - 0.1Performed at: [id number] [place], [place] [id number] Director: Ino Dougherty PhD, Phone: [phone] Serum or plasma progesterone measurement (mass/volume)on 08-08-2023 Progesterone [Mass/Vol] 11.3 ng/mL . [facility] Comment on above: Follicular phase 0.1 - 0.9 Luteal phase 1.8 - 23.9 Ovulation phase 0.1 - 12.0 First trimester 11.0 - 44.3 Second trimester 25.4 - 83.3 Third trimester 58.7 - 214.0 Postmenopausal 0.0 - 0.1Performed at: [facility] [id number] [place], [place] [id number] Director: Ino Dougherty PhD, Phone: [phone] Serum or plasma progesterone measurement (mass/volume)on 07-09-2023 Progesterone [Mass/Vol] 16.6 ng/mL . [facility] Comment on above: Follicular phase 0.1 - 0.9 Luteal phase 1.8 - 23.9 Ovulation phase 0.1 - 12.0 First trimester 11.0 - 44.3 Second trimester 25.4 - 83.3 Third trimester 58.7 - 214.0 Postmenopausal 0.0 - 0.1Performed at: [id number] [place], [place] [id number] Director: Ino Dougherty PhD, Phone: [phone] No Panel Informationon 06-26 Human Chorionic Gonadotropin, Quant <1 mIU/mL [facility] Comment on above: 5-50 0.2-1 [id number] 0 1-2 FYFZX381-0,000 2-3 HSBOH632-28,000 3-4 WEEKS1,000-50,000 4-5 WEEKS10,000-100,000 5-6 WEEKS15,000-200,000 6-8 WEEKS10,000-100,000 2-3 MONTHS Serum or plasma progesterone measurement (mass/volume)on 06-08-2023 Progesterone [Mass/Vol] 20.7 ng/mL . [facility] Comment on above: Follicular phase 0.1 - 0.9 Luteal phase 1.8 - 23.9 Ovulation phase 0.1 - 12.0 First trimester 11.0 - 44.3 Second trimester 25.4 - 83.3 Third trimester 58.7 - 214.0 Postmenopausal 0.0 - 0.1Performed at: [employer] [address] [place], [place] [id number] Director: Ino Dougherty PhD, Phone: [phone] Laboratory - Chemistry and C hemistry - challengeon 05-09-2023 Free T4 [Mass/Vol] 0.77 ng/dL 0.76-1.46 [facility] No Panel Informationon 05-08 Free Triiodothyronine 2.78 pg/mL 2.18-3.98 [facility] Serum or plasma progesterone measurement (mass/volume)on 05-09-2023 Progesterone [Mass/Vol] 19.3 ng/mL . [facility] Comment on above: Follicular phase 0.1 - 0.9 Luteal phase 1.8 - 23.9 Ovulation phase 0.1 - 12.0 First trimester 11.0 - 44.3 Second trimester 25.4 - 83.3 Third trimester 58.7 - 214.0 Postmenopausal 0.0 - 0.1Performed at: [employer] [place], [place] [id number] Director: Ino Dougherty PhD, Phone: [phone] BETA HCG, URINE (POC DEVICE) on 01-15-2023 Beta HCG ( test) Ql (U) Negative Negative [facility] Interpretation and review of laboratory results Normal [facility] Test performed at address of the patient encounter. [facility] CARDIAC RHYTHM (SCANNED)on 03-17-2022 [facility] CBC AND ELECTRONIC DIFFon Basophils (Bld) [#/Vol] 0.05 10*3/uL 0.00 - 0.15 K/uL [facility] Basophils/100 WBC (Bld) 0.5 % [facility] Differential cell count method Nom (Bld) Electronic Differential [facility] Eosinophils (Bld) [#/Vol] 0.12 10*3/uL 0. 00 - 0.42 K/uL [facility] Eosinophils/100 WBC (Bld) 1.2 % [facility] Erythrocyte distribution width (RBC) [Ratio] 13.1 % 10.8 - 14.9 % [facility] Hematocrit (Bld) [Volume fraction] 42.5 % 34.9 - 44.3 % [facility] Hemoglobin (Bld) [Mass/Vol] 14.3 g/dL 11.4 - 15.2 g/dL [facility] Immature granulocytes (Bld) [#/Vol] K/uL NINF - 0.08 K/uL [facility] Immature granulocytes/100 WBC (Bld) 0.3 % [facility] Lymphocytes (Bld) [#/Vol] 3.42 10*3/uL 1. 16 - 3.51 K/uL [facility] Lymphocytes/100 WBC (Bld) 32.9 % [facility] MCH (RBC) [Entitic mass] 31.1 pg 25. 9 - 33.9 pg [facility] MCHC (RBC) [Mass/Vol] 33.6 g/dL 31.4 - 35.9 g/dL [facility] MCV (RBC) [Entitic vol] 92.4 fL 79.6 - 97.7 fL [facility] Monocytes (Bld) [#/Vol] 0.62 10*3/uL 0.22 - 0.87 [facility]L [facility] Mon[facility]/100 WBC (Bld) 6.0 % O [facility] Neutrophils (Bld) [#/Vol] 6.14 10*3/uL 1. 64 - 7.28 K/uL [facility] Nucleated RBC/100 WBC (Bld) [Ratio] 0.0 % NINF [facility] Platelet mean volume (Bld) [Entitic vol] 10.8 fL 8.5 - 12.2 fL [facility] Platelets (Bld) [#/Vol] 326 10*3/uL 150 - 393 K/uL [facility] RBC (Bld) [#/Vol] 4.60 10*6/uL [facility] Segmented neutrophils/100 WBC (Bld) 59.1 % [facility] WBC (Bld) [#/Vol] 10.38 10*3/uL 3.99 - 11 .19 K/uL [facility] HCG ( test) Ql (U)O rdered By: Jamil Santos on 01-09-2023 Beta HCG ( test) Ql Negative Negative [facility] Interpretation and review of laboratory results Normal [facility] PT,INR,PTTon 01-09-2023 aPTT Coag (PPP) [Time] 31.1 s [facility] INR Coag (Bld) [Relative time] 1.0 {INR} 0.9 - 1.1 [facility] Interpretation and review of laboratory results Normal [facility] PT Coag (PPP) [Time] 13.0 s [facility] SCREEN: MRSA/MSSAOrdered By: Alexandra Slater on 01-09-2023 Interpretation and review of laboratory results Abnormal [facility] Methicillin Resistant S. Aureus By Pcr Negative Negative [facility] Staphylococcus Aureus By Pcr Positive Abnormal Negative [facility] This test was performed using a [...] by the Clinical Microbiology Laboratory at [facility]. It has not been cleared or approved by the FDA.The laboratory is regulated under CLIA as qualified to perform high-complexity testing. This test is used for clinical purposes. It should not be regarded as investigational or for research. [facility] XR Cervical and thoracic and lumbar [...] IMPRESSION: Intact vagus nerve stimulator as described. [facility] Radiology Study observation (narrative) [facility] Cervical and thoracic and lumbar spine ViewsOrdered By: Alice Crespo on 01-09-2023 [facility] Work Phone: PROGESTERONEon 05-24-2022 Progesterone 5.5 ng/mL Normal [facility] Comment on above: Result Comment: Foll icular phase 0.1 - 0.9 Luteal phase 1.8 - 23.9 Ovulation phase 0.1 - 12.0 First trimester 11.0 - 44.3 Second trimester 25.4 - 83.3 Third trimester 58.7 - 214.0 Postmenopausal 0.0 - 0.1 Performed By: #### P DANIEL #### [facility] [address] [place] [address] Dr. Nicol Oswald LAMOTRIGINEon 05-02-2022 Lamotrigine, Serum 4.7 ug/mL Normal 2.0-20.0 [facility] Comment on above: Result Comment: Dete ction Limit = 1.0 Performed By: #### P DANIEL #### [facility] [address] [place] [address] Dr. Nicol Oswald CBC AUTO DIFFon 04-30-2022 BASO # 0.0 103/ul Normal 0.0-0.1 [facility] Comment on above: Performed By: #### C BC #### [facility] [address] [place] [address] Dr. Nicol Oswald Basophils/100 WBC (Bld) 0.4 % Normal 0.2-2.0 [facility] Comment on above: Performed By: #### C BC #### [facility] [address] [place] [address] Dr. Nicol Oswald EO # 0.2 103/ul Normal 0.0-0.7 [facility] Comment on above: Performed By: #### C BC #### [facility] [address] [place] [address] Dr. Nicol Oswald Eosinophils/100 WBC (Bld) 1.9 % Normal 0.9-7.0 [facility] Comment on above: Performed By: #### C BC #### [facility] [address] [place] [address] Dr. Nicol Oswald Erythrocyte distribution width (RBC) [Ratio] 12.8 % Normal 11.0-15.0 [facility] Comment on above: Performed By: #### C BC #### [facility] [address] [place] [address] Dr. Nicol Oswald Hematocrit (Bld) [Volume fraction] 40.4 % Normal 36.0-48.0 [facility] Comment on above: Performed By: #### C BC #### [facility] [address] [place] [address] Dr. Nicol Oswald Hemoglobin (Bld) [Mass/Vol] 13.6 g/dL Normal 12.0-16.0 [facility] Comment on above: Performed By: #### C BC #### [facility] [address] [place] [address] Dr. Nicol Oswald IG # 0.03 10e3/ul Normal 0.00-0.03 [facility] Comment on above: Performed By: #### C BC #### [facility] [address] [place] [address] Dr. Nicol Oswald IG % 0.4 % Normal 0.0-0.5 [facility] Comment on above: Performed By: #### C BC #### [facility] [address] [place] [address] Dr. Nicol Oswald LYMPH # 3.1 103/ul Normal 1.2-3.8 [facility] Comment on above: Performed By: #### C BC #### [facility] [address] [place] [address] Dr. Nicol Oswald Lymphocytes/100 WBC (Bld) 36.4 % Normal 20.5-60.0 [facility] Comment on above: Performed By: #### C BC #### [facility] [address] [place] [address] Dr. Nicol Oswald MANUAL DIFF REQ NO Normal [facility] Comment on above: Performed By: #### C BC #### [facility] [address] [address] [address] Nicol Oswald MCH (RBC) [Entitic mass] 31.0 pg Normal 26.7-34.0 [facility] Comment on above: Performed By: #### C BC #### [facility] [address] [place] [address] Dr. Nicol Oswald MCHC (RBC) [Mass/Vol] 33.7 g/dL Normal 29.9-35.2 [facility] Comment on above: Performed By: #### C BC #### [facility] [address] [place] [address] Dr. Nicol Oswald MCV (RBC) [Entitic vol] 92.0 fL Normal 81.0-99.0 [facility] Comment on above: Performed By: #### C BC #### [facility] [address] [place] [address] Dr. Nicol Oswald MONO # 0.7 103/ul Normal 0.3-0.8 [facility] Comment on above: Performed By: #### C BC #### [facility] [address] [place] [address] Dr. Nicol Oswald Monocytes/100 WBC (Bld) 7.7 % Normal 1.7-12.0 [facility] Comment on above: Performed By: #### C BC #### [facility] [address] [place] [address] Dr. Nicol Oswald NEUT # 4.5 103/ul Normal 1.4-6.5 [facility] Comment on above: Performed By: #### C BC #### [facility] [address] [place] [address] Dr. Nicol Oswald Neutrophils/100 WBC (Bld) 53.2 % Normal 43.0-75.0 [facility] Comment on above: Performed By: #### C BC #### [facility] [address] [place] [address] Dr. Nicol Oswald Platelet mean volume (Bld) [Entitic vol] 11.0 fL Normal 9.5-13.5 [facility] Comment on above: Performed By: #### C BC #### [facility] [address] [place] [address] Dr. Nicol Oswald PLT 282 103/ul Normal 150-450 [facility] Comment on above: Performed By: #### C BC #### [facility] [address] [place] [address] Dr. Nicol Oswald RBC 4.39 106/ul Normal 4.20-5.40 [facility] Comment on above: Performed By: #### C BC #### [facility] [address] [place] [address] Dr. Nicol Oswald WBC 8.4 103/ul Normal 4.0-11.0 [facility] Comment on above: Performed By: #### C BC #### [facility] [address] [place] [address] Dr. Nicol Oswald LIVER PROFILEon 04-30-2022 Albumin [Mass/Vol] 4.1 g/dL Normal 3.4-5.0 [facility] Comment on above: Performed By: #### P DANIEL #### [facility] [address] [place] [address] Dr. Nicol Oswald Albumin/Globulin [Mass ratio] 1.2 {ratio} Normal [facility] Comment on above: Performed By: #### P DANIEL #### [facility] [address] [place] [address] Dr. Nicol Oswald ALP [Catalytic activity/Vol] 52 U/L Normal 46-116 [facility] Comment on above: Performed By: #### P DANIEL #### [facility] [address] [place] [address] Dr. Nicol Oswald ALT [Catalytic activity/Vol] 23 U/L Normal 14-59 [facility] Comment on above: Performed By: #### P DANIEL #### [facility] [address] [place] [address] Dr. Nicol Oswald AST [Catalytic activity/Vol] 17 U/L Normal 15-37 [facility] Comment on above: Performed By: #### P DANIEL #### [facility] [address] [address] [address] Nicol Oswald BILI, CONJUGATED 0.1 mg/dL Normal 0.0-0.2 [facility] Comment on above: Performed By: #### P ROGES #### [facility] [address] [address] [address] Nicol Oswald Bilirubin [Mass/Vol] 0.2 mg/dL Normal 0.2-1.0 [facility] Comment on above: Performed By: #### P ROGES #### [facility] [facility] [address] [address] [address] Nicol Oswald Globulin (S) [Mass/Vol] 3.4 g/dL Normal [facility] Comment on above: Performed By: #### P ROGLYNDA #### [facility] [address] [place] [address] Dr. Nicol Oswald Protein [Mass/Vol] 7.5 g/dL Normal 6.4-8.2 [facility] Comment on above: Performed By: #### P ROGES #### [facility] [address] [place] [address] Dr. Nicol Oswald PROF CHEM 8 (BAS METB)on Anion gap [Moles/Vol] 8.5 mmol/L Normal [facility] Comment on above: Performed By: #### P ROGES #### [facility] [address] [place] [address] Dr. Nicol Oswald Calcium [Mass/Vol] 9.4 mg/dL Normal 8.5-10.1 [facility] Comment on above: Performed By: #### P ROGES #### [facility] [address] [address] [address] Nicol Oswald Chloride [Moles/Vol] 102 mmol/L Normal 98-107 [facility] Comment on above: Performed By: #### P ROGES #### [facility] [address] [place] [address] Dr. Nicol Oswald CO2 [Moles/Vol] 30.4 mmol/L Normal 21.0-32.0 [facility] Comment on above: Performed By: #### P ROGES #### [facility] [address] [address] [address] Nicol Oswald Creatinine [Mass/Vol] 0.57 mg/dL Normal 0.55-1.02 [facility] Comment on above: Performed By: #### P JASONES #### [facility] [address] [address] [address] Nicol Oswald EGFR-AF SCOTTISH >60 Normal >=60 [facility] Comment on above: Performed By: #### P ROGES #### [facility] [address] [address] [address] Nicol Oswald EGFR-NON AF SCOTTISH >60 Normal >=60 [facility] Comment on above: Performed By: #### P ROGLYNDA #### [facility] [address] [address] [address] Nicol Oswald Glucose [Mass/Vol] 89 mg/dL Normal 74-106 [facility] Comment on above: Performed By: #### P DANIEL #### [facility] [address] [address] [address] Nicol Oswald Potassium [Moles/Vol] 3.9 mmol/L Normal 3.5-5.1 [facility] Comment on above: Performed By: #### P DANIEL #### [facility] [address] [address] [address] Nicol Oswald Sodium [Moles/Vol] 137 mmol/L Normal 136-145 [facility] Comment on above: Performed By: #### P ROGLYNDA #### [facility] [address] [address] [address] Nicol Oswald Urea nitrogen [Mass/Vol] 10.0 mg/dL Normal 7.0-18.0 [facility] Comment on above: Performed By: #### P DANIEL #### [facility] [address] [address] [address] Nicol Oswald Urea nitrogen/Creatinine [Mass ratio] 17.5 mg/mg Normal [facility] Comment on above: Performed By: #### P DANIEL #### [facility] [address] [address] [address] Nicol Oswald ESTROGENon 04-19-2022 Estrogens, Total 124 pg/mL Normal [facility] Comment on above: Result Comment: Prep ubertal < 40 Female Cycle: 1-10 Days 16 - 328 11-20 Days 34 - 501 21-30 Days 48 - 350 Post-Menopausal 40 - 244 Performed By: #### Elli ESPINAL #### [facility] [address] [address] [address] Nicol Oswald DHEA SERUMon 04-18-2022 Dehydroepiandrosterone (DHEA) 371 ng/dL Normal 31-701 [facility] Comment on above: Result Comment: Age [...] [birth year] Performed By: #### Tenzin SANCHEZ #### [facility] [address] [address] [address] Nicol Oswald DHEA-SULFATEon 04-16-2022 DHEA-Sulfate 371.0 ug/dL Normal 84.8-378.0 [facility] Comment on above: Performed By: #### Tenzin SANCHEZ #### [facility] [address] [place] [address] Dr. Nicol Oswald FSHon 04-16-2022 FSH 5.6 mIU/mL Normal [facility] Comment on above: Result Comment: Adul t Female: Follicular phase 3.5 - 12.5 Ovulation phase 4.7 - 21.5 Luteal phase 1.7 - 7.7 Postmenopausal 25.8 - 134.8 Performed By: #### Tenzin SANCHEZ #### [facility] [address] [place] [address] Dr. Nicol Oswald LUTEINIZING HORMONE (LH)on 0 04-16-2022 LH 12.9 mIU/mL Normal [facility] Comment on above: Result Comment: Adul t Female: Follicular phase 2.4 - 12.6 Ovulation phase 14.0 - 95.6 Luteal phase 1.0 - 11.4 Postmenopausal 7.7 - 58.5 Performed By: #### P ROGES #### [facility] [address] [place], [place] [address] Dr. Nicol Oswald PROGESTERONEon 04-16-2022 Progesterone 0.2 ng/mL Normal [facility] Comment on above: Result Comment: Foll icular phase 0.1 - 0.9 Luteal phase 1.8 - 23.9 Ovulation phase 0.1 - 12.0 First trimester 11.0 - 44.3 Second trimester 25.4 - 83.3 Third trimester 58.7 - 214.0 Postmenopausal 0.0 - 0.1 Performed By: #### P DANIEL #### [facility] [address] [place], [place] [address] Dr. Nicol Oswald PROLACTINon 04-16-2022 Prolactin 7.1 ng/mL Normal 4.8-23.3 [facility] Comment on above: Performed By: #### P ROLAC #### [facility] [address] [place], [place] [address] Dr. Nicol Oswald US PELVIS AND TRANSVAGon [...] CYDNEY VALDEZ Date: 2022-04-16 08:48 Normal [facility] CBC AUTO DIFFon 04-15-2022 BASO # 0.0 103/ul Normal 0.0-0.1 [facility] Comment on above: Performed By: #### C BC #### [facility] [address] [place] [address] Dr. Nicol Oswald Basophils/100 WBC (Bld) 0.5 % Normal 0.2-2.0 [facility] Comment on above: Performed By: #### C BC #### [facility] [address] [place] [address] Dr. Nicol Oswald EO # 0.2 103/ul Normal 0.0-0.7 [facility] Comment on above: Performed By: #### C BC #### [facility] [address] [place] [address] Dr. Nicol Oswald Eosinophils/100 WBC (Bld) 2.1 % Normal 0.9-7.0 [facility] Comment on above: Performed By: #### C BC #### [facility] [address] [place] [address] Dr. Nicol Oswald Erythrocyte distribution width (RBC) [Ratio] 12.5 % Normal 11.0-15.0 [facility] Comment on above: Performed By: #### C BC #### [facility] [address] [place] [address] Dr. Nicol Oswald Hematocrit (Bld) [Volume fraction] 44.7 % Normal 36.0-48.0 [facility] Comment on above: Performed By: #### C BC #### [facility] [address] [place] [address] Dr. Nicol Oswald Hemoglobin (Bld) [Mass/Vol] 14.3 g/dL Normal 12.0-16.0 [facility] Comment on above: Performed By: #### C BC #### [facility] [address] [place] [address] Dr. Nicol Oswald IG # 0.01 10e3/ul Normal 0.00-0.03 [facility] Comment on above: Performed By: #### C BC #### [facility] [address] [place] [address] Dr. Nicol Oswald IG % 0.1 % Normal 0.0-0.5 [facility] Comment on above: Performed By: #### C BC #### [facility] [address] [place] [address] Dr. Nicol Oswald LYMPH # 2.0 103/ul Normal 1.2-3.8 [facility] Comment on above: Performed By: #### C BC #### [facility] [address] [place] [address] Dr. Nciol Oswald Lymphocytes/100 WBC (Bld) 26.0 % Normal 20.5-60.0 [facility] Comment on above: Performed By: #### C BC #### [facility] [address] [place] [address] Dr. Nicol Oswald MANUAL DIFF REQ NO Normal [facility] Comment on above: Performed By: #### C BC #### [facility] [address] [place] [address] Dr. Nicol Oswald MCH (RBC) [Entitic mass] 30.8 pg Normal 26.7-34.0 [facility] Comment on above: Performed By: #### C BC #### [facility] [address] [place] [address] Dr. Nicol Oswald MCHC (RBC) [Mass/Vol] 32.0 g/dL Normal 29.9-35.2 [facility] Comment on above: Performed By: #### C BC #### [facility] [address] [place] [address] Dr. Nicol Oswald MCV (RBC) [Entitic vol] 96.3 fL Normal 81.0-99.0 [facility] Comment on above: Performed By: #### C BC #### [facility] [address] [place] [address] Dr. Nicol Oswald MONO # 0.6 103/ul Normal 0.3-0.8 [facility] Comment on above: Performed By: #### C BC #### [facility] [address] [place] [address] Dr. Nicol Oswald Monocytes/100 WBC (Bld) 7.3 % Normal 1.7-12.0 [facility] Comment on above: Performed By: #### C BC #### [facility] [address] [place] [address] Dr. Nicol Oswald NEUT # 4.9 103/ul Normal 1.4-6.5 [facility] Comment on above: Performed By: #### C BC #### [facility] [address] [place] [address] Dr. Nicol Oswald Neutrophils/100 WBC (Bld) 64.0 % Normal 43.0-75.0 [facility] Comment on above: Performed By: #### C BC #### [facility] [address] [place] [address] Dr. Nicol Oswald Platelet mean volume (Bld) [Entitic vol] 11.3 fL Normal 9.5-13.5 [facility] Comment on above: Performed By: #### C BC #### [facility] [address] [place] [address] Dr. Nicol Oswald PLT 302 103/ul Normal 150-450 [facility] Comment on above: Performed By: #### C BC #### [facility] [address] [place] [address] Dr. Nicol Oswald RBC 4.64 106/ul Normal 4.20-5.40 [facility] Comment on above: Performed By: #### C BC #### [facility] [address] [place] [address] Dr. Nicol Oswald WBC 7.7 103/ul Normal 4.0-11.0 [facility] Comment on above: Performed By: #### C BC #### [facility] [address] [place] [address] Dr. Nicol Oswald FREE T4on 04-15-2022 Free T4 [Mass/Vol] 0.80 ng/dL Normal 0.76-1.46 [facility] Comment on above: Performed By: #### F T4 #### [facility] [address] [place] [address] Dr. Nicol Oswald GLYCOHEMOGLOBIN A1Con 2022 ADA RECOMMENDATION SEE BELOW Normal [facility] Comment on above: Result Comment: ADA RECOMMENDED LIMIT 4.0 - 6.0 ADA THERAPEUTIC TARGET < 7.0 ACTION SUGGESTED > 7.0 Performed By: #### A 1C #### [facility] [address] [place] [address] Dr. Nicol Oswald Glucose [Mass/Vol] 114 mg/dL Normal [facility] Comment on above: Performed By: #### A 1C #### [facility] [address] [place] [address] Dr. Nicol Oswald HbA1c (Bld) [Mass fraction] 5.6 % Normal 4.5-6.2 [facility] Comment on above: Performed By: #### A 1C #### [facility] [address] [place] [address] Dr. Nicol Oswald PREG QUANT HCGon 04-15-2022 HCG QUANT <1 Normal [facility] Comment on above: Performed By: #### P REGQNT, TSH #### [facility] [address] [place] [address] Dr. Nicol Oswald HCG RANGE SEE BELOW Normal [facility] Comment on above: Result Comment: 5-50 0.2-1 WEEK 50-500 1-2 WEEKS 100-5,000 2-3 WEEKS 500-10,000 3-4 WEEKS 1,000-50,000 4-5 WEEKS 10,000-100,000 5-6 WEEKS 15,000-200,000 6-8 WEEKS 10,000-100,000 2-3 MONTHS Performed By: #### P REGQNT, TSH #### [facility] [address] [place] [address] Dr. Nicol Oswald TSHon 04-15-2022 TSH 1.312 uIU/mL Normal 0.358-3.740 [facility] Comment on above: Performed By: #### P REGQNT, TSH #### [facility] [address] [place] [address] Dr. Nicol Oswald PAP ACOG PANEL 2: 21 to 29on 08-31-2021 . . Normal [facility] Comment on above: Performed By: #### P JASONES #### [facility] [address] [address] [address] Nicol Oswald Age Gdln ACOG Testing 21-29 Normal [facility] Comment on above: Performed By: #### P ROGES #### [facility] [address] [address] [address] Nicol Oswald DIAGNOSIS: Comment Normal [facility] Comment on above: Result Comment: NEGA TIVE FOR INTRAEPITHELIAL LESION OR MALIGNANCY. THIS SPECIMEN WAS RESCREENED PART OF OUR FOOD MIXER REPAIRER PROGRAM. Performed By: #### P ROGES #### [facility] [address] [address] [address] Nicol Oswald Methodology: Comment [facility] Comment on above: Result Comment: This liquid based ThinPrep(R) pap test was screened with the use of an image guided system. Performed By: #### P DANIEL #### [facility] [address] [place] [address] Dr. Nicol Oswald Note: Comment Normal [facility] Comment on above: Result Comment: The Pap smear is a screening test designed to aid in the detection of premalignant and malignant conditions of the uterine cervix. It is not a diagnostic procedure and should not be used as the sole means of detecting cervical cancer. Both false-positive and false-negative reports do occur. . Performed By: #### P DANIEL #### [facility] [address] [place] [address] Dr. Nicol Oswald Performed by: Comment Normal [facility] Comment on above: Result Comment: Mireille Blanco, Insole Stiffener (ASCP) Performed By: #### P DAINEL #### [facility] [address] [place] [address] Dr. Nicol Oswald QC reviewed by: Comment Normal [facility] Comment on above: Result Comment: Tahira Roque Insole Stiffener (ASCP) Performed By: #### P ROGES #### [facility] [address] [place] [address] Dr. Nicol Oswald Reflex Criteria: Comment [facility] Comment on above: Result Comment: The HPV DNA reflex criteria were not met with this specimen result therefore, no HPV testing was performed. . Performed By: #### P DANIEL #### [facility] [address] [place], [place] [address] Dr. Nicol Oswald Specimen adequacy: Comment Normal [facility] Comment on above: Result Comment: Sati sfactory for evaluation. Endocervical and/or squamous metaplastic cells (endocervical component) are present. Performed By: #### P DANIEL #### [facility] [address] [address] [address] Nicol Oswald CBC Auto Diff Reflex Manualo n 02-18-2019 Automated Absolute Neutrophil 5.73 10*3/mm3 Normal [facility] Comment on above: Result Comment: Auto mated Absolute Neutrophil Count (ANC) is directly measured using a hematology instrument. ANC determined from manual differential cell count may differ. No [facility] reference range has been validated for this assay. Performed By: #### C D #### [place] [address] Basophil 0.5 % Normal 0.0-1.0 [facility] Comment on above: Performed By: #### C D #### [place] [address] Differential Type Automated Normal [facility] Comment on above: Performed By: #### C D #### [place] [address] Eosinophil 1.6 % Normal 1.0-4.0 [facility] Comment on above: Performed By: #### C D #### [place] [address] Erythrocyte distribution width (RBC) [Ratio] 13.4 % Normal 10-14.1 [facility] Comment on above: Performed By: #### C D #### [place] [address] Lymphocyte 22.6 % Low 24.0-44.0 [facility] Comment on above: Performed By: #### C D #### [place] [address] MCH (RBC) [Entitic mass] 30.7 pg Normal 26-34 [facility] Comment on above: Performed By: #### C D #### Performed at [address] [address] MCHC (RBC) [Mass/Vol] 33.2 % Normal 31.0-37.0 [facility] Comment on above: Performed By: #### C D #### Performed at [address] [address] MCV (RBC) [Entitic vol] 92.4 fL Normal 80-100 [facility] Comment on above: Performed By: #### C D #### [place] [address] Monocyte 8.2 % High 1.0-7.0 [facility] Comment on above: Performed By: #### C D #### [place] [address] Neutrophil 67.1 % Normal 41.0-77.0 [facility] Comment on above: Performed By: #### C D #### [place] [address] Platelet mean volume (Bld) [Entitic vol] 11.5 fL Normal 9.3-13.0 [facility] Comment on above: Performed By: #### C D #### [place] [address] Platelets (Bld) [#/Vol] 268 10*3/uL Normal 140-440 [facility] Comment on above: Performed By: #### C D #### Performed at [address] [address] RBC (Bld) [#/Vol] 4.60 10*6/uL Normal 4.0-5.2 [facility] Comment on above: Performed By: #### C D #### Performed at [address] [address] WBC (Bld) [#/Vol] 8.6 10*3/uL Normal 4.5-11 [facility] Comment on above: Performed By: #### C D #### [place] [address] Comprehensive Metabolic Pane mehran 02-18-2019 Albumin [Mass/Vol] 4.7 g/dL Normal 3.4-5.2 [facility] ALP [Catalytic activity/Vol] 47 U/L Low 50-136 [facility] ALT [Catalytic activity/Vol] 32 U/L Normal <40 [facility] AST [Catalytic activity/Vol] 29 U/L Normal 15-50 [facility] Bilirubin Ql (U) 0.2 mg/dL Normal 0.1-1.0 [facility] Calcium [Mass/Vol] 9.8 mg/dL Normal 8-10.5 [facility] Chloride [Moles/Vol] 104 mmol/L Normal 95-106 [facility] CO2 [Moles/Vol] 25 mmol/L Normal 24-35 [facility] Creatinine [Mass/Vol] 0.52 mg/dL Normal 0.5-1 [facility] Glucose [Mass/Vol] 135 mg/dL High 60-115 [facility] Potassium [Moles/Vol] 4.5 mmol/L Normal 3.7-5.3 [facility] Protein [Mass/Vol] 8.0 g/dL Normal 6.4-8.4 [facility] Sodium [Moles/Vol] 140 mmol/L Normal 135-145 [facility] Urea nitrogen [Mass/Vol] 15 mg/dL Normal 5-18 [facility] Valproic Acidon 02-18-2019 Valproic Acid 47.1 ug/mL Low 50.0-100.0 [facility] PAP, THIN PREP WITH IMAGINGo n 06-29-2018 PAP, THIN PREP WITH IMAGING Normal [facility] Comment on above: Result Comment: INTE RPRETATION Thin Prep Image-Guided Pap Test (Cervical/Endocervical) NEGATIVE FOR INTRAEPITHELIAL LESION /MALIGNANCY Satisfactory for evaluation (Endocervical/transformation zone component present) [facility]/06/27/2018 The Pap test is a screening test, [...] 05/18/18 ICD-CM DIAGNOSIS CODE(S) Z01.419 Encntr For Mat Puncher Exam (general) (routine) W/o Abn Findings * EFFECTIVE 06/08/2018 * * CLINICAL CHEMISTRY PLATFORM CHANGES ARE ASSOCIATED WITH * * REFERENCE RANGE CHANGES FOR A NUMBER OF ANALYTES. PLEASE * * REVIEW REFERENCE INTERVALS CAREFULLY * [facility] [address] [place] [address] CLIA No. [id number] CAP Accreditation No. [id number] Drapery Hemmer Automatic: Johnson Garland M.D. [facility] Accession Number: [id number] Performed By: #### P L PAP W/IMAGE #### [address] [id number] Nucleic-Acid Probe-Endoce rvical Swabon 06-24-2018 CT Nucleic-Acid Probe-Endocervical Swab Negative Normal NEGATIVE [facility] Comment on above: Performed By: #### G C Amp Endocerv, CT Amp Endocerv #### [address] [id number] Age at specimen collection = Normal [facility] Comment on above: Performed By: #### G C Amp Endocerv, CT Amp Endocerv #### [address] [id number] Performed By: #### P L PAP W/IMAGE #### [facility] [address] [place], [place] [id number] GC Nucleic-Acid Probe-Endoce rvical Swabon 06-24-2018 GC Nucleic-Acid Probe-Endocervical Swab Negative Normal NEGATIVE [facility] Comment on above: Performed By: #### G C Amp Endocerv, CT Amp Endocerv #### [facility] [address] [place], [place] [id number] Platelet Functionon 03-24-19 19 Collagen/ADP 148 sec High 67-112 [facility] Comment on above: Performed By: #### P FA #### [facility] [address] [place] [address] Collagen/EPI 228 sec High 85-172 [facility] Comment on above: Performed By: #### P FA #### [facility] [address] [place] [address] Interpretation Abnormal platelet function. Normal [facility] Comment on above: Result Comment: Comm on [...] established. Performed By: #### P FA #### [facility] [address] [place] [address] XR ANKLE RIGHT STANDARDon XR ANKLE RIGHT STANDARD Radiology exam i s complete. No Radiologist dictation. Please follow up with ordering provider. Final result Normal [facility] Vital Signs Date Time Vital Sign Value Performing Clinician Facility 07-20-2024 11:33-0400 Body mass index (BMI) [Ratio] 34.52 kg/m2 Donovan Burks DO Work Phone: [facility] 07-20-2024 11:33-0400 Body weight 89.81 kg Donovan Kimmie DO Work Phone: [facility] 07-20-2024 11:33-0400 Diastolic blood pressure 70 mm[Hg] Donovan Kimmie DO Work Phone: [facility] 07-20-2024 11:33-0400 Systolic blood pressure 118 mm[Hg] Donovan Kimmie DO Work Phone: [facility] 09-24-2023 10:29-0400 Body height 170.18 cm [facility] 09-24-2023 10:29-0400 Body mass index (BMI) [Ratio] 30.2 kg/m2 [facility] 09-24-2023 10:29-0400 Body weight 87.54 kg [facility] 09-24-2023 10:29-0400 Diastolic blood pressure 78 mm[Hg] [facility] 09-24-2023 10:29-0400 Heart rate 67 /min [facility] 09-24-2023 10:29-0400 SaO2% (BldA) [Mass fraction] 98 % [facility] 09-24-2023 10:29-0400 Systolic blood pressure 112 mm[Hg] [facility] 08-21-2023 14:43-0400 Body height 161.3 cm Cori Maturu V, DO Work Phone: [facility] Comment on above: verbal 08-21-2023 14:43-0400 Body mass index (BMI) [Ratio] 34.59 kg/m2 Cori Maturu V, DO Work Phone: [facility] 08-21-2023 14:43-0400 Body temperature 98.29 [degF] Cori Maturu V, DO Work Phone: [facility] 08-21-2023 14:43-0400 Body weight 89.99 kg Cori Maturu V, DO Work Phone: [facility] 08-21-2023 14:43-0400 Diastolic blood pressure 76 mm[Hg] Cori Parekhu V, DO Work Phone: [facility] 08-21-2023 14:43-0400 Heart rate 88 /min Croi Parekhu V, DO Work Phone: [facility] 08-21-2023 14:43-0400 Systolic blood pressure 130 mm[Hg] Cori Parekhu V, DO Work Phone: [facility] 07-07-2023 14:37-0400 Body height 170.18 cm [facility] 07-07-2023 14:37-0400 Body mass index (BMI) [Ratio] 30.8 kg/m2 [facility] 07-07-2023 14:37-0400 Body weight 89.35 kg [facility] 07-07-2023 14:37-0400 Diastolic blood pressure 78 mm[Hg] [facility] 07-07-2023 14:37-0400 Heart rate 81 /min [facility] 07-07-2023 14:37-0400 SaO2% (BldA) [Mass fraction] 98 % [facility] 07-07-2023 14:37-0400 Systolic blood pressure 112 mm[Hg] [facility] 05-28-2023 14:04-0400 Body height 161.3 cm Petra Silveira APRN-MARKETING PROPOSAL SPECIALIST Work Phone: [facility] 05-28-2023 14:04-0400 Body mass index (BMI) [Ratio] 34.09 kg/m2 Petra Silveira APRN-MARKETING PROPOSAL SPECIALIST Work Phone: [facility] 05-28-2023 14:04-0400 Body temperature 98.01 [degF] Petra Silveira APRN-MARKETING PROPOSAL SPECIALIST Work Phone: [facility] 05-28-2023 14:04-0400 Body weight 88.68 kg Crystal Raoul WEB PRESS OPERATOR ASSISTANT-MARKETING PROPOSAL SPECIALIST Work Phone: [facility] 05-28-2023 14:04-0400 Diastolic blood pressure 74 mm[Hg] Crystal Raoul WEB PRESS OPERATOR ASSISTANT-MARKETING PROPOSAL SPECIALIST Work Phone: [facility] 05-28-2023 14:04-0400 Heart rate 92 /min Petra Raoul WEB PRESS OPERATOR ASSISTANT-MARKETING PROPOSAL SPECIALIST Work Phone: [facility] 05-28-2023 14:04-0400 Systolic blood pressure 122 mm[Hg] Petra Raoul WEB PRESS OPERATOR ASSISTANT-MARKETING PROPOSAL SPECIALIST Work Phone: [facility] 04-22-2023 13:04-0500 Body mass index (BMI) [Ratio] 34 kg/m2 Donovan Kimmie DO Work Phone: [facility] 04-22-2023 13:04-0500 Body weight 88.45 kg Donovan Kimmie DO Work Phone: [facility] 04-22-2023 13:04-0500 Diastolic blood pressure 78 mm[Hg] Donovan Kimmie DO Work Phone: [facility] 04-22-2023 13:04-0500 Systolic blood pressure 120 mm[Hg] Donovan Kimmie DO Work Phone: [facility] 02-14-2023 15:48-0500 Body height 161.3 cm Petra Silveira WEB PRESS OPERATOR ASSISTANT-MARKETING PROPOSAL SPECIALIST Work Phone: [facility] Comment on above: verbal 02-14-2023 15:48-0500 Body mass index (BMI) [Ratio] 34.82 kg/m2 Petra Raoul WEB PRESS OPERATOR ASSISTANT-MARKETING PROPOSAL SPECIALIST Work Phone: [facility] 02-14-2023 15:48-0500 Body temperature 97.9 [degF] Crystal Raoul WEB PRESS OPERATOR ASSISTANT-MARKETING PROPOSAL SPECIALIST Work Phone: [facility] 02-14-2023 15:48-0500 Body weight 90.58 kg Petra Raoul WEB PRESS OPERATOR ASSISTANT-MARKETING PROPOSAL SPECIALIST Work Phone: [facility] 02-14-2023 15:48-0500 Diastolic blood pressure 79 mm[Hg] Petra Silveira WEB PRESS OPERATOR ASSISTANT-MARKETING PROPOSAL SPECIALIST Work Phone: [facility] 02-14-2023 15:48-0500 Heart rate 107 /min Petra Raoul WEB PRESS OPERATOR ASSISTANT-MARKETING PROPOSAL SPECIALIST Work Phone: [facility] 02-14-2023 15:48-0500 Systolic blood pressure 133 mm[Hg] Petra Silveira WEB PRESS OPERATOR ASSISTANT-MARKETING PROPOSAL SPECIALIST Work Phone: [facility] 01-15-2023 13:50-0500 Body temperature 97.5 [degF] Andi Smith MD Work Phone: [facility] 01-15-2023 13:50-0500 Diastolic blood pressure 79 mm[Hg] Andi Smith MD Work Phone: [facility] 01-15-2023 13:50-0500 Heart rate 78 /min Andi Smith MD Work Phone: [facility] 01-15-2023 13:50-0500 Respiratory rate 16 /min Andi Smith MD Work Phone: [facility] 01-15-2023 13:50-0500 SaO2% (BldA) [Mass fraction] 98 % Andi Smith MD Work Phone: [facility] 01-15-2023 13:50-0500 Systolic blood pressure 117 mm[Hg] Andi Smith MD Work Phone: [facility] 01-15-2023 07:50-0500 Body height 161.3 cm Andi Smith MD Work Phone: [facility] 01-15-2023 07:50-0500 Body mass index (BMI) [Ratio] 34.37 kg/m2 Andi Smith MD Work Phone: [facility] 01-15-2023 07:50-0500 Body weight 89.4 kg Andi Smith MD Work Phone: [facility] 01-09-2023 08:39-0400 Body height 161.3 cm Esau Gage PAC Work Phone: [facility] 01-09-2023 08:39-0400 Body mass index (BMI) [Ratio] 33.65 kg/m2 Esau Gage PAC Work Phone: 1(858)[phone] [place] [address] 01-09-2023 08:39-0400 Body temperature 98.49 [degF] Esau Gage PAC Work Phone: 6(453)266-437972 [address] 01-09-2023 08:39-0400 Body weight 87.54 kg Esau Gage PAC Work Phone: 2(906)415-756072 [address] 01-09-2023 08:39-0400 Diastolic blood pressure 80 mm[Hg] Esau Gage PAC Work Phone: 3(068)[phone] [place] [address] 01-09-2023 08:39-0400 Heart rate 81 /min Esau Gage PAC Work Phone: 8(068)508-629872 [address] 01-09-2023 08:39-0400 Respiratory rate 18 /min Esau Gage PAC Work Phone: 4(539)858-522772 [address] 01-09-2023 08:39-0400 SaO2% (BldA) [Mass fraction] 98 % Esau Gage PAC Work Phone: [facility] 01-09-2023 08:39-0400 Systolic blood pressure 134 mm[Hg] Esau Gage PAC Work Phone: [facility] 12-10-2022 10:53-0400 Body height 160 cm Andi Smith MD Work Phone: [facility] 12-10-2022 10:53-0400 Body mass index (BMI) [Ratio] 34.19 kg/m2 Andi Smith MD Work Phone: [facility] 12-10-2022 10:53-0400 Body weight 87.54 kg Andi Smith MD Work Phone: [facility] 12-10-2022 10:53-0400 Diastolic blood pressure 63 mm[Hg] Andi Smith MD Work Phone: [facility] 12-10-2022 10:53-0400 Heart rate 65 /min Andi Smith MD Work Phone: [facility] 12-10-2022 10:53-0400 Systolic blood pressure 125 mm[Hg] Andi Smith MD Work Phone: [facility] 11-08-2022 16:21-0400 Body height 160 cm Crystal Raoul WEB PRESS OPERATOR ASSISTANT-MARKETING PROPOSAL SPECIALIST Work Phone: [facility] Comment on above: verbal 11-08-2022 16:21-0400 Body mass index (BMI) [Ratio] 34.26 kg/m2 Crystal Raoul WEB PRESS OPERATOR ASSISTANT-MARKETING PROPOSAL SPECIALIST Work Phone: [facility] 11-08-2022 16:21-0400 Body temperature 99.1 [degF] Crystal Raoul WEB PRESS OPERATOR ASSISTANT-MARKETING PROPOSAL SPECIALIST Work Phone: [facility] 11-08-2022 16:21-0400 Body weight 87.73 kg Crystal Raoul WEB PRESS OPERATOR ASSISTANT-MARKETING PROPOSAL SPECIALIST Work Phone: [facility] 11-08-2022 16:21-0400 Diastolic blood pressure 71 mm[Hg] Crystal Raoul WEB PRESS OPERATOR ASSISTANT-MARKETING PROPOSAL SPECIALIST Work Phone: [facility] 11-08-2022 16:21-0400 Heart rate 97 /min Crystal Raoul WEB PRESS OPERATOR ASSISTANT-MARKETING PROPOSAL SPECIALIST Work Phone: [facility] 11-08-2022 16:21-0400 Systolic blood pressure 116 mm[Hg] Crystal Raoul WEB PRESS OPERATOR ASSISTANT-MARKETING PROPOSAL SPECIALIST Work Phone: [facility] 07-04-2021 09:38-0400 Body height 161.3 cm Petra Silveira WEB PRESS OPERATOR ASSISTANT-MARKETING PROPOSAL SPECIALIST Work Phone: [facility] Comment on above: verbal 07-04-2021 09:38-0400 Body mass index (BMI) [Ratio] 36.23 kg/m2 Petra Silveira WEB PRESS OPERATOR ASSISTANT-MARKETING PROPOSAL SPECIALIST Work Phone: [facility] 07-04-2021 09:38-0400 Body temperature 98.71 [degF] Petra Silveira WEB PRESS OPERATOR ASSISTANT-MARKETING PROPOSAL SPECIALIST Work Phone: [facility] 07-04-2021 09:38-0400 Body weight 94.26 kg Petra Silveira WEB PRESS OPERATOR ASSISTANT-MARKETING PROPOSAL SPECIALIST Work Phone: [facility] 07-04-2021 09:38-0400 Diastolic blood pressure 70 mm[Hg] Petra Silveira WEB PRESS OPERATOR ASSISTANT-MARKETING PROPOSAL SPECIALIST Work Phone: [facility] 07-04-2021 09:38-0400 Heart rate 73 /min Petra Silveira WEB PRESS OPERATOR ASSISTANT-MARKETING PROPOSAL SPECIALIST Work Phone: [facility] 07-04-2021 09:38-0400 Systolic blood pressure 119 mm[Hg] Petra Silveira WEB PRESS OPERATOR ASSISTANT-MARKETING PROPOSAL SPECIALIST Work Phone: [facility] Encounters Encounter Date Encounter Type Care Provider Facility Start: 08-01-2024 End: 08-03-2024 Clinisync Result Encounter Donovan Kimmie DO Work Phone: [facility] Unsolicited Start: 08-01-2024 End: 08-03-2024 Clinisync Result Encounter Donoavn Kimmie DO Work Phone: [facility] Unsolicited Start: 07-20-2024 End: 07-20-2024 Bamboo flowsheet Donovan [...] Departed Referred Donovan Kimmie DO Work Phone: [facility] Start: 06-28-2024 Non-patient / Non-visit Donoavn Kimmie DO Work Phone: [facility] Work Phone: Start: 06-28-2024 End: 06-30-2024 Clinisync Result Encounter Donovan Kimmie DO Work Phone: [facility] Unsolicited Start: 06-28-2024 End: 06-30-2024 Clinisync Result Encounter Donovan Kimmie DO Work Phone: [facility] Unsolicited Start: 06-07-2024 ambulatory [facility] Facility: [facility] Start: 05-26-2024 Non-patient / Non-visit Donovan Kimmie DO Work Phone: [facility] Work Phone: Start: 05-26-2024 [...] Not Available Start: 09-24-2023 End: 09-24-2023 ambulatory [facility] Work Phone: Start: 09-24-2023 End: 09-24-2023 Patient encounter procedure [facility] Work Phone: Start: 09-11-2023 Non-patient / Non-visit [facility] Work Phone: Start: 08-21-2023 End: 08-21-2023 Office outpatient visit 25 minutes Cori Hernández DO Work Phone: [facility] 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); Anxiety disorder, unspecified type Start: 08-21-2023 ambulatory [facility] Facility: [facility] Start: 08-08-2023 Non-patient / Non-visit [facility] Work Phone: Start: 07-09-2023 Non-patient / Non-visit [facility] Work Phone: Start: 07-07-2023 End: 07-07-2023 ambulatory [facility] Work Phone: Start: 07-07-2023 End: 07-07-2023 Patient encounter procedure [facility] Work Phone: Start: 06-27-2023 Non-patient / Non-visit [facility] Work Phone: Start: 06-08-2023 Non-patient / Non-visit [facility] Work Phone: Start: 05-28-2023 End: 05-28-2023 Office outpatient visit 25 minutes Petra Silveira APRN-MARKETING PROPOSAL SPECIALIST Work Phone: [facility] 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); Anxiety disorder, unspecified type Start: 05-09-2023 Non-patient / Non-visit [facility] Work Phone: Start: 04-22-2023 End: 04-22-2023 ambulatory DONOVAN BURKS Not Available Start: 04-22-2023 End: 04-22-2023 Office outpatient visit 15 minutes Donovan Burks DO Work Phone: [facility] Comment on above: Encounter for fertil ity planning Start: 02-14-2023 End: 02-14-2023 Office outpatient visit 25 minutes Petra Silveira WEB PRESS OPERATOR ASSISTANT-MARKETING PROPOSAL SPECIALIST Work Phone: [facility] 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); 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 Start: 01-15-2023 End: 01-15-2023 Subsequent hospital visit by physician Andi Smith MD Work Phone: [facility] 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 Start: 01-09-2023 End: 01-09-2023 Office consultation new/estab patient 60 min Esau Gage PAC Work Phone: Pre-Procedure Evaluation and Assessment [facility] Comment on above: Preop exam for inter nal medicine (Primary Dx); Jeavons syndrome; 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 Start: 01-09-2023 End: 01-09-2023 Patient encounter status Esau Gage PAC Work Phone: [facility] Start: 01-09-2023 End: 01-09-2023 Subsequent hospital visit by physician Andi Smith MD Work Phone: Imaging [facility] Comment on above: Arrived Start: 12-10-2022 End: 12-10-2022 Office outpatient new 45 minutes Andi Smith MD Work Phone: 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 NONE PER PATIENT Facility:[facility] Start: 05-13-2018 End: 05-13-2018 Patient encounter procedure . NONE PER PATIENT Facility:[facility] Start: 03-23-2018 End: 03-24-2018 Patient encounter procedure [facility] Start: 03-20-2018 End: 03-21-2018 Patient encounter procedure [facility] Procedures Date Procedure Procedure Detail Performing Clinician Start: 08-01-2024 ALL PROGESTERONE Donovan Kimmie DO Work Phone: Start: 07-20-2024 PATHOLOGY REQUEST FO R LAB [...] 01-09-2023 CBC AND ELECTRONIC DIFF Esau D Gage PAC Work Phone: Start: 01-09-2023 Complete blood count with white cell differential, automated Esau D Gage PAC Work Phone: Start: 01-09-2023 Prothrombin time Esau D Gage PAC Work Phone: Start: 01-09-2023 Radex spine cervical 2 or 3 views Andi Smith MD Work Phone: Start: 01-09-2023 Iadna s aureus ampli fied probe tq Esau D Gage PAC Work Phone: Start: 01-09-2023 Urine test visual color cmprsn meths Esau D Gage PAC Work Phone: Start: 02-18-2019 Blood count hematocrit Comment on above: Performed By: #### C D #### Performed at [facility], [address] [place] [address] Start: 03-23-2018 PLATELET FUNCTION TEST JAMIL SMITH Plan of Treatment Date Care Activity Detail Author Start: 10-28-2024 End: 10-28-2024 Patient encounter procedure 10/28/2024 9:00 AM EDT Office Visit [facility] [address] [place] [address] Donovan Burks, DO [address] [place] [address] [facility] Start: 07-20-2024 End: 07-20-2024 Patient encounter procedure 07/20/2024 11:10 AM EDT Office Visit [facility] [address] [place] [phone] Donovan Burks DO [address] [place] [address] [facility] Start: 07-20-2024 [facility] Start: 01-22-2024 End: 01-22-2024 Patient encounter procedure 01/22/2024 9:15 AM EST Office Visit [facility] [address] [place] [phone] Matefrainu V, Cori, DO [address] [place], [place] [id number] [facility] Start: 11-28-2023 End: 11-28-2023 Patient encounter procedure 11/28/2023 10:20 AM EDT Office Visit [facility] [address] [place], [place] [id number] Petra Silveira, WEB PRESS OPERATOR ASSISTANT-MARKETING PROPOSAL SPECIALIST [address] [place] [phone] [facility] Start: 11-09-2023 COVID-19 VACCINE ( season) COVID-19 VACCINE ( season) [facility] Start: 11-09-2023 Influenza vaccination [facility] Start: 08-21-2023 End: 08-21-2023 Patient encounter procedure 08/21/2023 2:45 PM EDT Office Visit [facility] [address] [facility] [address] [place] [phone] Matefrainu Fantasma Cori, DO [address] [place] [address] [facility] Start: 05-28-2023 End: 05-28-2023 Patient encounter procedure 05/28/2023 2:00 PM EDT Office Visit [facility] [address] [place] [phone] Petra Silveira, WEB PRESS OPERATOR ASSISTANT-MARKETING PROPOSAL SPECIALIST [address] [place] [phone] [facility] Start: 02-14-2023 End: 02-14-2023 Patient encounter procedure [facility] Start: 01-15-2023 End: 01-15-2023 Admission to same day surgery center 01/15/2023 9:40 AM EST - 01/15/2023 11:50 AM EST Surgery [facility] [address] [place] [phone] Andi Smith MD [address] [place] [address] INSERTION REPLACEMENT NEUROSTIMULATOR GENERATOR CRANIAL/INTRACRANIAL [facility] Comment on above: INSERTION REPLACEMENT NEUROSTIMULATOR GE NERATOR CRANIAL/INTRACRANIAL Start: 01-15-2023 End: 01-15-2023 Insj/rplcmt cranial neurostim pulse generator INSERTION REPLACEMENT NEUROSTIMULATOR GENERATOR CRANIAL/INTRACRANIAL Jeavons syndrome 01/15/2023 9:40 AM EST [facility] Start: 01-15-2023 Subsequent hospital visit by physician 01/15/2023 9:40 AM EST Hospital Encounter [facility] [address] [place] [address] Andi Smith MD [address] [place] [address] Jeavons syndrome [facility] 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 Start: 12-10-2022 End: 12-11-2023 Radiographic imaging procedure XR STIMULATOR/INTRATHECAL PUMP Imaging Routine Jeavons syndrome Expected: 12/10/2022, Expires: 12/11/[address] [facility] Comment on above: Expected: 12/10/2022, Expires: Start: 12-10-2022 End: 12-10-2022 Patient encounter procedure 12/10/2022 11:30 AM EDT Office Visit [facility] [address] [place] [address] Andi Smith MD [address] [facility] [place] [phone] [facility] Start: 11-08-2022 COVID-19 VACCINE ( season) COVID-19 VACCINE ( season) [facility] Start: 11-08-2022 Influenza vaccination INFLUENZA VACCINE (#1) [facility] Start: 01-04-2022 End: 01-04-2022 Patient encounter procedure 01/04/2022 Office Visit Neurology Cori Dia, DO [address] [place] [address] [facility]rology [facility] Start: 11-08-2021 Influenza vaccination INFLUENZA VACCINE (Season Ended) [facility] Start: 10-10-2021 End: 10-10-2021 Telemedicine consultation with patient 10/10/2021 Telemedicine Neurology Petra Silveira, WEB PRESS OPERATOR ASSISTANT-MARKETING PROPOSAL SPECIALIST [address] [place] [address] [facility] Start: 08-15-2021 End: 08-15-2021 Telemedicine consultation with patient 08/15/2021 Telemedicine Neurology Petra Silveira, WEB PRESS OPERATOR ASSISTANT-MARKETING PROPOSAL SPECIALIST [address] [place] [phone] [facility] Start: 2013 Screening for malignant neoplasm of cervix CERVICAL CANCER SCREENING DISCUSSION [facility] Start: 07-15-2011 Hepatitis B vaccination HEP B VACCINE (1 of 3 - 19+ 3-dose series) [facility] Start: 07-15-2011 Third diphtheria, tetanus and acellular pertussis (DTaP) vaccination TDAP (ADULT) [facility] Start: 2010 Tetanus vaccination TETANUS [facility] Start: 07-15-2007 HIV screening HIV SCREENING DISCUSSION [facility] Start: 1997 COVID-19 VACCINE (1) COVID-19 VACCINE (1) [facility] Start: 01-14-1993 COVID-19 VACCINE (#1) COVID-19 VACCINE (#1) [facility] Start: 1992 Hepatitis B vaccination HEP B VACCINE (1 of 3 - 3-dose series) [facility] Start: 1992 Hepatitis C antibody, confirmatory test HEPATITIS C VIRUS SCREENING [facility] Start: 1992 Hepatitis C screening HEPATITIS C VIRUS SCREENING [facility] Start: 1992 Tetanus vaccination TETANUS [facility] Ecg routine ecg w/le ast 12 lds w/i&r SD ELECTROCARDIOGRAM, COMPLETE SD - OFFICE PERFORMED Routine 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 Ordered: 01/09/2023 [facility] Comment on above: Ordered: 01/09/2023 Elec horace implt npgt phys/qhp w/o programming SD ELEC HORACE IMPLT NPGT PHYS/QHP W/O PROGRAMMING SD Charge Routine Jeavons syndrome Ordered: 09/09/2023 [facility] Comment on above: Ordered: 09/09/2023 Elec horace implt smpl cn npgt prgrmg SD ELEC HORACE IMPLT SMPL CN NPGT PRGRMG SD Charge Routine Jeavons syndrome Ordered: 11/14/2022 [facility] Comment on above: Ordered: 11/14/2022 Elec horace implt smpl cn npgt prgrmg SD ELEC HORACE IMPLT SMPL CN NPGT PRGRMG SD Charge Routine 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 Ordered: 03/12/2023 [facility] Comment on above: Ordered: 03/12/2023 Elec horace implt smpl cn npgt prgrmg SD ELEC HORACE IMPLT SMPL CN NPGT PRGRMG SD Charge Routine Jeavons syndrome Ordered: 06/21/2023 [facility] Comment on above: Ordered: 06/21/2023 Insj/rplcmt cranial neurostim pulse generator INSERTION REPLACEMENT NEUROSTIMULATOR GENERATOR CRANIAL/INTRACRANIAL Jeavons syndrome [facility] Noninvasive ear/puls e oximetry single deter SD NONINVASV OXYGEN SATUR; SINGLE SD - OFFICE PERFORMED Routine 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 Ordered: 01/09/2023 [facility] Comment on above: Ordered: 01/09/2023 Immunizations Immunization Date Immunization Notes Care Provider Lee shelton 01-04-2014 influenza, seasonal, injectable, preservative free Andi Smith MD Work Phone: [facility] 01-04-2014 influenza virus vaccine, unspecified formulation Petra Silveira APRN-MARKETING PROPOSAL SPECIALIST Work Phone: [facility] Payers Date Payer Category Payer Unknown [id number] 2021 Medicaid [employer] [place] [id number] 2021-Present [address] [place] [address] [id number] 2021 Private Health Insurance [facility] MEDICAID [id number] 2016 Unknown [id number] 2016 Self-pay 2014 Unknown [id number] 1992 Unknown [id number] 2.16.840.1.723902.3.579.2. 173 1992 Unknown [id number] 2.16.840.1.590527.3.579.2. 173 1992 Unknown [id number] 2.16.840.1.763361.3.579.2. 754 1992 Unknown [id number] 2.16.840.1.057885.3.579.2. 754 1992 Unknown [id number] 2.16.840.1.710130.3.579.2. 754 1992 Unknown [id number] 2.16840.1.725289.3.579.2. 754 1992 Unknown [id number] 2.16.840.1.168956.3.579.2. 593 1992 Unknown [id number] 2.16.840.1.919306.3.579.2. 593 1992 Unknown [id number] 2.16.840.1.053043.3.579.2. 593 1992 Unknown [id number] 2.16.840.1.662221.3.579.2. 593 1992 Unknown [id number] 2.16.840.1.301033.3.579.2. 593 1992 Unknown [id number] 2.16.840.1.758735.3.579.2. 1259 1992 Unknown [id number] 2.16.840.1.141266.3.579.2. 594 1992 Unknown [id number] 2.16.840.1.946309.3.579.2. 594 1992 Unknown [id number] 2.16.840.1.031065.3.579.2. 1259 1992 Unknown [id number] 2.16.840.1.706421.3.579.2. 1259 1992 Unknown [id number] 2.16.840.1.729697.3.579.2. 1259 1959 Unknown [id number] 1959 Unknown [id number] Unknown [id number] 2.16.840.1.965028.3.579.2. 531 Social History Date Type Detail Facility Start: 10-28-2019 End: 09-11-2022 Tobacco smoking status NHIS Never smoked tobacco [facility] Start: 10-28-2019 End: 09-11-2022 Tobacco use and exposure Smokeless tobacco non-user [facility] Start: 10-28-2019 Alcohol intake Current drinker of alcohol (finding) [facility] Start: 10-28-2019 History SDOH Alcohol Frequency 2 [facility] Start: 10-28-2019 History SDOH Alcohol Comment rare wine [facility] Start: 10-28-2019 Education 17 [facility] Start: 1990 Sex Assigned At Not on file [facility] Start: 11-08-2022 End: 09-09-2023 Alcohol intake Ex-drinker (finding) [facility] Start: 10-28-2019 End: 10-20-2023 History of Social function [facility] Start: 10-28-2019 End: 10-20-2023 Alcohol Use Disorder Identification Test - Consumption [AUDIT-C] [facility] How often to you hav e a drink containing alcohol? Monthly or less [facility] Average Number of Drinks Not on file [facility] Start: 10-29-2019 Gender identity Identifies as female gender (finding) [facility] Start: 10-29-2019 Sexual orientation Heterosexual (finding) [facility] Start: 02-14-2023 Tobacco Comment Never [facility] Start: 02-14-2023 Alcohol Comment At most one or two drinks a month. [facility] Start: 04-22-2023 End: 07-20-2024 Alcohol intake Not Asked [facility] Start: 08-07-2022 Alcohol Comment Occasional alcohol use [facility] Start: 1990 Sex Assigned At Female [facility] Start: 07-22-2024 Sex Female (finding) [facility] Medical Equipment Procedure Code Equipment Code Equipment Origin al Text Equipment Identifier Dates Sentiva [id number] hayward Start: 01-15-2023 Clinical Notes 07-04-2021 to 07-20-2024 Rhonda Sherly, CASSIE - 07/20/2024 11:10 AM EDTTelephone Encounter - [...] nursing note reviewed. Exam conducted with a deputy sheriff k9 handler present. Vitals: Estimated body mass index is [...] after allowing sufficient time to take affect. sweet pickled fruit maker and scissors used to remove affected area. Placed in formalin and sent to pathology. Post-procedure instructions given. Follow Up: As needed Documented by Rhonda Dubois LPN on behalf of: Donovan Burks DO documented in this encounter [facility] 11-19-2023 Telephone encounter Note Images from the original note were not included. Medication Access Team coordinated the following [facility] Clinics: MS/Neurology Prior Authorization Per the patient's insurance provider, [employer] [facility], the prior authorization for LAMOTRIGINE 300 (on-label) was approved. Authorization number: [id number] Authorization start date: 11/14/23 Authorization end date: 11/12/24 Non-Specialty Prescriptions: 1, 20-25 min Namrata Tony [facility] 11-19-2023 Miscellaneous Notes Images from the original note were not included. Medication Access Team coordinated the following [facility] Clinics: MS/Neurology Prior Authorization Per the patient's insurance provider, [employer] [facility], the prior authorization for LAMOTRIGINE 300 (on-label) was approved. Authorization number: [id number] Authorization start date: 11/14/23 Authorization end date: 11/12/24 Non-Specialty Prescriptions: 1, 20-25 min Namrata Tony documented in this encounter [facility] 11-14-2023 Telephone encounter Note Images from the original note were not included. *Documentation only- I did not speak with the patient. Received fax from [employer] stating PA is needed for Lamotrigine ER 300 mg tablets. Current auth expires 11/25/2023. [facility] 11-14-2023 Miscellaneous Notes Images from the original note were not included. *Documentation only- I did not speak with the patient. Received fax from [employer] stating PA is needed for Lamotrigine ER 300 mg tablets. Current auth expires 11/25/2023. documented in this encounter [facility] 08-21-2023 History of Present illness Narrative [...] 24 hours. 2 Each 0 Prenat MV-Min w/Ke-Lwmqxd-TGE ( COMPLETE PO) Take 1 tablet by [...] AW Model ID Sentiva N1000 Serial # [id number] Implanted 03/27/2018 Communication Output Current Status Current [...] of questions or concerns. Cori Hernández DO Tobacco Stripper Hand Department of Neurology, Epilepsy Division [facility] documented in this encounter [facility] 08-21-2023 Instructions Cori Meek DO - [...] you can call the Neurology clinic at [phone]. If you have access through [facility] [employer], you can contact me through that system as well. documented in this encounter [facility] 05-28-2023 History of Present illness Narrative Images from the original note were not included. Rowena Drake was seen in the [facility] at [facility] on 05/28/2023. She is here [...] had a VNS that was placed in 2012 Interval History: Since the last visit, the [...] 24 hours. 2 Each 0 Prenat MV-Min w/Fd-Lcnenh-EBW ( COMPLETE PO) Take 1 tablet by [...] your epilepsy that we offer at the [facility]? Yes If you have tried 2 or 3 anti-seizure medications and your seizures are still not controlled, are you interested in learning about surgical options for your epilepsy that we can offer at the [facility]? No Neurological Disorders Depression Inventory for Epilepsy [...] happen Not at all Not at all ANDRAI-7 Total Score 11 10 If you checked [...] 01/15/2023 Model Number 1000 1000 Serial Number [id number] Output Current (mA) 2.5 mA 2.25 mA [...] and continue maintenance dose of clobazam - SD ELEC HORACE IMPLT SMPL CN NPGT PRGRMG [...] 45 tablet; Refill: 2 Encouraged use of Vertra to send messages to provider as needed for questions and concerns or can call our clinic @ [phone]. She will return in [address] Hernández or sooner if clinically indicated. Signed, Petra Silveira MSN, WEB PRESS OPERATOR ASSISTANT-MARKETING PROPOSAL SPECIALIST [facility] Department of Neurology - Epilepsy Division [address] [place] [address] - 7th floor [place] [address] Pager: [phone] I spent a total of 35 minutes on the date of the service which included preparing to see the patient, blsv-cu-agmf patient care, completing clinical documentation, performing a medically appropriate examination and counseling and educating the patient/family/caregiver. Note to patient: The Century Cures Act makes medical notes like these available to patients in the interest of transparency. However, be advised this is a medical document. It is intended as yzaf-to-spez communication. It is written in medical language and may contain abbreviations or verbiage that are unfamiliar. It may appear blunt or direct. Medical documents are intended to carry relevant information, facts as evident, and the clinical opinion of the practitioner. documented in this encounter [facility] 04-22-2023 History of Present illness Narrative [...] Medical History: Diagnosis Date Generalized seizure disorder ([facility]) Family History Problem Relation Name Age of [...] nursing note reviewed. Exam conducted with a deputy sheriff k9 handler present. Vitals: Estimated body mass index is [...] Burks DO documented in this encounter [facility] 02-14-2023 History of Present illness Narrative Images from the original note were not included. Rowena Byers was seen in the [facility] at [facility] on 02/14/2023. She is here [...] 24 hours. 2 Each 0 Prenat MV-Min w/Nm-Tzfykc-NCV ( COMPLETE PO) Take 1 tablet by [...] ID ABW Model ID Vandana Serial # [id number] Implanted 01/15/2023 Communication OK Output Current Status [...] VNS Simple Reprogramming (1-3 changes) CPT code 10186 Assessment and Plan Assessment: Rowena is a [...] longer than 5 minutes. Encouraged use of Vertra to send messages to provider as needed for questions and concerns or can call our clinic @ [phone]. She will return in 3 months with me and [address] Hernández or sooner if clinically indicated. Signed, Petra Silveira MSN, WEB PRESS OPERATOR ASSISTANT-MARKETING PROPOSAL SPECIALIST [facility] Department of Neurology - Epilepsy Division [address] [place] [address] - 7th floor [place] [address] Pager: [phone] I spent a total of 34 minutes on the date of the service which included preparing to see the patient, qoic-qh-bpct patient care, completing clinical documentation, performing a medically appropriate examination and counseling and educating the patient/family/caregiver. Note to patient: The Century Cures Act makes medical notes like these available to patients in the interest of transparency. However, be advised this is a medical document. It is intended as ecym-gv-bsta communication. It is written in medical language and may contain abbreviations or verbiage that are unfamiliar. It may appear blunt or direct. Medical documents are intended to carry relevant information, facts as evident, and the clinical opinion of the practitioner. documented in this encounter [facility] 02-14-2023 Instructions JETHRO Juan - 02/14/2023 [...] parts, work in high places such as [employer], ladders, and roofs, and use of heavy [...] after regular office hours, a neurologist is recreation adviser for urgent issues. Call the neurology office number ([phone]) to reach the neurologist recreation adviser if you are continuing to experience many more seizures than usual despite use of your rescue medications. Please try to remember that the neurologist recreation adviser may not have access to your complete medical record and may not be as familiar with your history. If you have access through [employer], you can contact us through that system as well. If you have documents that need completed or sent to our clinic, please have them faxed to [phone]. It is always best to call during [...] the refill is ready for you to sweet pickled fruit maker. Seizure First Aid Training Can Be Found Here (it's free!): [email or web address] nd documented in this encounter [facility] 01-15-2023 Miscellaneous Notes [facility] OPERATIVE REPORT PATIENT NAME: Rowena Byers PROCEDURE [...] the new IPG and secured with the coffee machine technician's screwdriver. At this point, a communications programmer was used to interrogate the new [...] VSS, anesthesia sign out completed. 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 SURGEON Surgeon(s) and Role: * Andi Smith MD - Primary ANESTHESIOLOGIST Anesthesiologist: Cydney Zavala MD VICTIM ADVOCATE: Geraldo Marion APRN-VICTIM ADVOCATE Student Nurse Knitting Inspector: Chiquita Polanco SURGICAL STAFF Renovator Machine Operator: Miki Gary RN; Linda Gilmore RN Relief Renovator Machine Operator: Janet Carreon RN Scrub Person: Marielle Ibrahim Resident Assisting: Colt Meadows MD COMPLICATIONS None ESTIMATED BLOOD LOSS Minimal SPECIMENS No specimen sent * No specimens in log * Colt Meadows MD January 15, 2023 11:03 AM documented in this encounter [facility] 01-15-2023 Nurse Note Pt and family were given AVS and verbalize understanding of instructions. Pt discharged via wheelchair. [facility] 01-15-2023 Surgery Postoperative evaluation and management note [facility] OPERATIVE REPORT PATIENT NAME: Rowena Byers PROCEDURE [...] the new IPG and secured with the coffee machine technician's screwdriver. At this point, a communications programmer was used to interrogate the new [...] entire procedure and performed the critical portions. [facility] 01-15-2023 Nurse Note Report called to RN SPR, VSS, anesthesia sign out completed. 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 SURGEON Surgeon(s) and Role: * Andi Smith MD - Primary ANESTHESIOLOGIST Anesthesiologist: Cydney Zavala MD VICTIM ADVOCATE: Geraldo Marion APRN-VICTIM ADVOCATE Student Nurse Knitting Inspector: Chiquita Polanco SURGICAL STAFF Renovator Machine Operator: Miki Gary RN; Linda Gilmore RN Relief Renovator Machine Operator: Janet Carreon RN Scrub Person: Marielle Ibrahim Resident Assisting: Colt Meadows MD COMPLICATIONS None ESTIMATED BLOOD LOSS Minimal SPECIMENS No specimen sent * No specimens in log * Colt Meadows MD January 15, 2023 11:03 AM [facility] 01-15-2023 Nurse Surgical operation note Report given to PACKAGE DRIER. Patient transported to PACU with anesthesia on a cart and oxygen. [facility] 01-15-2023 Nurse Note Report given to PACKAGE DRIER. Patient transported to PACU with anesthesia on a cart and oxygen. documented in this encounter [facility] 01-15-2023 Hospital Discharge instructions Colt Meadows MD - 01/15/2023 9:30 AM EST Discharge Instructions for DBS Surgery & Battery Placement Surgery Here are some general guidelines to assist you in your recovery at home. Please do not hesitate to call us with any questions or concerns you may have. We can be reached at [phone]. Your appointmentS will be in the Neuromodulation clinic in [address] Incision Care: If you have a [...] 101 degrees F documented in this encounter [facility] 01-15-2023 History and physical note PERIOPERATIVE [...] 98 %. I have reviewed Rowena Menjivar Zeeshan's medical, surgical and other pertinent history, and I have updated the medication and allergy information in the computerized patient record. I have examined the patient, reviewed the previous H&P completed on date (01-09-23) and there are no changes. Today's surgical history and physical update was completed by Andi Smith MD, 01/15/2023, 9:08 AM. [facility] Work Phone: 01-15-2023 History and physical [...] 01/15/2023, 9:08 AM. documented in this encounter [facility] 01-09-2023 History and physical note Images [...] 10 mg in 24 hours. Prenat MV-Min w/Bn-Mimlyu-KAX ( COMPLETE PO) Take 1 tablet by [...] % ointment HCG QUALITATIVE, URINE Pulse Ox SD ECG, CLINIC PERFORMED Lab A/P - Labs [...] SURGERY. 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 History of Present Illness Ms. Byers is a 32 y.o. female is being evaluated in [facility] due to her medical condition of [...] 10 mg in 24 hours. Prenat MV-Min w/Zh-Ebersd-CJL ( COMPLETE PO) Take 1 tablet by [...] % ointment HCG QUALITATIVE, URINE Pulse Ox SD ECG, CLINIC PERFORMED Lab A/P - Labs [...] SURGERY. [facility] The [place] [address] [facility] Review of Systems (OSUROS)Review of Systems Constitutional: [...] PCP - General (Internal Medicine) Petra Silveira APRN-MARKETING PROPOSAL SPECIALIST (Certified Nurse Practitioner) Family History Problem Relation Age of Onset Prostate Cancer Maternal Grandfather Mental Illness Maternal Grandmother Depression , Anxiety Prostate Cancer Paternal Grandfather Cancer- Other Paternal Grandfather Diabetes Paternal Uncle Social History Socioeconomic History Marital status: Highest education level: Bachelor's degree (e.g., BA, AB, BS) 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 She takes Lamictal for treatment 4. Mat Puncher--patient states she is actively trying to get . Will check hCG today and on day of surgery. Patient understands that surgery may be cancelled if she is . Anesthesia Assessment:No contraindications to planned surgery. Pending review of the patient's labs.ECG reviewed. Whitney Ward MD [facility] Preoperative Assessment Center documented in this encounter [facility] 01-09-2023 Instructions Robyn Dempsey LPN - [...] take Herbal Medication (including multi-vitamin, fish oil (Lawrence-3), garlic, Glucosamine - Chondroitin ,gingko, ginseng, Vitamin [...] site one week prior to surgery. - Olin your teeth and rinse your mouth the morning of surgery. - Do NOT bring your dentures or partials with you into surgery. They may be lost. Give them to someone to bring to you after surgery. If you are unable to complete your scheduled testing or appointments made by [facility] please contact [facility] at [phone]. Failure to do so could delay or [...] surgery, please notify our team immediately at [phone]. - If you have Sleep apnea and have a CPAP or BIPAP, then bring your CPAP mask and machine with you to the hospital. Please contact Medical Information Management Department for all records requests. [phone] [phone] Puma/mateo documented in this encounter [facility] 12-10-2022 History of Present illness Narrative [...] that were dedicated to clinical evaluation, including xtmf-hs-hsoy time; counseling and education; chart completion; reviewing [...] aspirin, excedrin, plavix), multivitamins/minerals/herbal supplements (such as Lawrence-3, garlic, Glucosamine - Chondroitin, gingko, ginseng, Vitamin E, fish oil, etc), non-steroidal anti-inflammatory medications (NSAIDs) (such as Ibuprofen/Motrin/Advil, Aleve, Celebrex) for 10 days prior to surgery, as these are blood thinners. She was advised that Tylenol is the preferred option for pain. She stated understanding. documented in this encounter [facility] 11-08-2022 History of Present illness Narrative Images from the original note were not included. Rowena Byers was seen in the [facility] Ep[facility]psy [facility] at [facility] on 11/08/2022. She is here today for a follow-up in clinic accompanied by her , Pedro. She was last seen on 04/19/[address] Cori Hernández, DO and with ct 09/19/22. History of Present Illness INTERVAL HISTORY: [...] ID AW Model ID SenTiva Serial # [id number] Implanted 03/27/2018 Communication OK Output Current Status [...] VNS Simple Reprogramming (1-3 changes) CPT code 49498 Assessment and Plan Assessment: Rowena is a [...] would like to wait Encouraged use of Vertra to send messages to provider as needed for questions and concerns or can call our clinic @ [phone]. She will return in 2 months or sooner if clinically indicated. Signed, Petra Silveira MSN, WEB PRESS OPERATOR ASSISTANT-MARKETING PROPOSAL SPECIALIST [facility] Department of Neurology - Epilepsy Division [address] [place] [address] - 7th floor [place] [address] Pager: [phone] I spent a total of 46 minutes on the date of the service which included preparing to see the patient, xkvv-qf-tbeg patient care, completing clinical documentation, performing a medically appropriate examination and counseling and educating the patient/family/caregiver. Note to patient: The Cures Act makes medical notes like these available to patients in the interest of transparency. However, be advised this is a medical document. It is intended as wxds-jp-zwlz communication. It is written in medical language and may contain abbreviations or verbiage that are unfamiliar. It may appear blunt or direct. Medical documents are intended to carry relevant information, facts as evident, and the clinical opinion of the practitioner. documented in this encounter [facility] 11-08-2022 Instructions JETHRO Juan - 11/08/2022 [...] ID AW Model ID SenTiva Serial # [id number] Implanted 03/27/2018 Communication OK Output Current Status OK Current Delivered 1.75 Lead Impedance OK Impedance Value 2903 IFI NO Average # of Inhibited Auto stimulations Daily Avg. Stim % Per Day %Therapy Normal 843.56 AutoStim 26.89 Magnet 0.04 Total 870.50 documented in this encounter [facility] 07-04-2021 Instructions JETHRO Juan - 07/04/2021 [...] weeks with Petra documented in this encounter [facility] 07-04-2021 History of Present illness Narrative Images from the original note were not included. Rowena Byers was seen in the [facility]psy [facility] at [facility] on 07/04/2021. 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 Encouraged use of Vertra to send messages to provider as needed for questions and concerns or can call our clinic @ [phone]. She will return in 6 weeks and 3 months with me and [address] Hernández or sooner if clinically indicated. Signed, Petra Silveira MSN, WEB PRESS OPERATOR ASSISTANT-MARKETING PROPOSAL SPECIALIST [facility] Department of Neurology - Epilepsy Division [address] [place] [address] - 7th floor [place], [place] [address] Pager: [phone] Time to complete visit: I spent approximately 38 minutes reviewing the chart prior to the appointment, in face to face counseling with the patient, and with documentation after the visit. documented in this encounter 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 Diagnosis Jeavons syndrome- Primary documented [facility] this [facility] Diagnosis Jeavons syndrome- Primary documented [facility] this [facility] Diagnosis Jeavons syndrome Jeavons syndrome [facility] Diagnosis Preop exam for internal medicine- Primary Other specified pre-operative examination 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 Other postprocedural status Jeavons syndrome [facility] this encounter 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 Diagnosis Encounter for fertility planning documented in this encounter [facility]* Diagnosis Jeavons syndrome- Primary Anxiety disorder, unspecified type documented in this encounter [facility] Diagnosis Onset Date Resolution Status Maxillary sinusitis [facility] Work Phone: Evaluation note* Diagnosis Jeavons syndrome- Primary Anxiety disorder, unspecified type documented in this encounter [facility] Diagnosis Onset Date Resolution Status Maxillary sinusitis acute Maxillary sinusitis [facility] Work Phone: Evaluation note* Diagnosis PCOS (polycystic ovarian syndrome) Polycystic ovaries Skin tag Unspecified hypertrophic and atrophic condition of skin documented in this encounter [facility] HealthcareEvaluation noteNo assessment information [facility] Phone: Reason for referral (narrative)* Consultation (Routine) - New Request Specialty Diagnoses / Procedures Referred By Contac t Referred To Contact Neurologic Surgery Diagnoses Jeavons syndrome Andi Smith MD [address] [place] [phone] Referral ID Status Reason Start Date Expiration Date V isits Requested Visits Authorized [id number] New Request 12/10/2022 01/04/2024 1 1 [facility] Summary Purpose Family History Relationship Condition Age at Onset Recorded Date/T jorge grandparent Malignant neoplasm Unknown Advance Directives Advance Directive Response Recorded Date/ Time Advance Directives No July 06 12:12pm Reason for Referral Specialty Diagnoses / Procedures Referred By Contac t Referred To Contact Diagnoses Generalized nonconvulsive epilepsy Petra Silveira, WEB PRESS OPERATOR ASSISTANT-MARKETING PROPOSAL SPECIALIST [address] [place] [phone] Referral ID Status Reason Start Date Expiration Date V isits Requested Visits Authorized [id number] Pending Review 1 1 Specialty Diagnoses / Procedures Referred By Contac t Referred To Contact Procedures DVT/VTE RISK ASSESSMENT Andi Smith MD [address] [place] [phone] Referral ID Status Reason Start Date Expiration Date V isits Requested Visits Authorized [id number] New Request 01/15/2023 02/09/2024 1 1 Chief Complaint and Reason for Visit Chief Complaint sinus infection Reason for Visit Maxillary sinusitis Chief Complaint sinus infection sinus infection Reason for Visit Maxillary sinusitis Maxillary sinusitis Chief Complaint Admit Date Unknown July 20, 2024 9:00a m Additional Source Comments INFORMATION SOURCE (unrecogn ized section and content) DATE CREATED AUTHOR 09/03/2017 [facility] DATE CREATED AUTHOR AUTHOR'S ORGANIZ ATION 03/28/2018 [facility] DATE CREATED AUTHOR AUTHOR'S ORGANIZ ATION 07/02/2018 [facility] DATE CREATED AUTHOR AUTHOR'S ORGANIZ ATION 10/02/2019 [facility] DATE CREATED AUTHOR AUTHOR'S ORGANIZ ATION 06/01/2022 [facility] DATE CREATED AUTHOR AUTHOR'S ORGANIZ ATION 04/24/[address] [facility] EPIC DATE CREATED AUTHOR AUTHOR'S ORGANIZ ATION 06/07/2024 [facility] DATE CREATED AUTHOR AUTHOR'S ORGANIZ ATION 07/21/[address] [facility] EPIC DATE CREATED AUTHOR AUTHOR'S ORGANIZ ATION 07/28/2024 [facility] Reason for Visit (unrecogniz ed section and content) Reason Comments Follow-up Reason Comments Follow-up Reason Comments New Patient 32 y.o female here f or consult. Specialty Diagnoses / Procedures Referred By Rainer ramos Referred To Contact Neurologic Surgery Diagnoses Jeavons syndrome S/P placement of VNS (vagus nerve stimulation) device Petra Silveira, WEB PRESS OPERATOR ASSISTANT-MARKETING PROPOSAL SPECIALIST [address] [phone] Referral ID Status Reason Start Date Expiration Date V isits Requested Visits Authorized [id number] New Request 09/19/2022 10/14/2023 1 1 Reason Comments Preoperative Assessment Specialty Diagnoses / Procedures Referred By Rainer ramos Referred To Contact Neurologic Surgery Diagnoses Jeavons syndrome Andi Smith MD [address] [place] [phone] Referral ID Status Reason Start Date Expiration Date V isits Requested Visits Authorized [id number] New Request 12/10/2022 01/04/2024 1 1 Specialty Diagnoses / Procedures Referred By Rainer ramos 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] Procedures SD IMP STIM,CRANIAL,SUBQ,1 ARRAY INSERTION REPLACEMENT NEUROSTIMULATOR GENERATOR CRANIAL/INTRACRANIAL Andi Smith MD [address] [place] [phone] [facility] [address] [place] [address] Referral ID Status Reason Start Date Expiration Date Visits Re quested Visits Authorized [id number] 1 1 Reason Comments Infertility Reason Onset Date Comments Insurance 11/14/2023 Lamotrigine ER Reason Onset Date Comments Insurance 11/19/2023 Reason Comments Skin Tag Pt present today for a skin tag on right areola. Care Teams (unrecognized sec tion and content) Launch Manager Relationship Specialty Start Date End Date Tim Rolon DO [address] [place] [address] PCP - General Internal Medicine 09/19/22 Petra Silveira, WEB PRESS OPERATOR ASSISTANT-MARKETING PROPOSAL SPECIALIST [address] [phone] Certified Nurse Practitioner 11/08/22 Launch Manager Relationship Specialty Start Date End Date Tim Rolon DO [address] [place] [address] PCP - General Internal Medicine 09/19/22 Petra Silveira, WEB PRESS OPERATOR ASSISTANT-MARKETING PROPOSAL SPECIALIST [address] [phone] Certified Nurse Practitioner 11/08/22 Launch Manager Relationship Specialty Start Date End Date Tim Rolon DO [address] [place] [address] PCP - General Internal Medicine 09/19/22 Petra Silveira, WEB PRESS OPERATOR ASSISTANT-MARKETING PROPOSAL SPECIALIST [address] [phone] Certified Nurse Practitioner 11/08/22 Launch Manager Relationship Specialty Start Date End Date Tim Rolon DO [address] [place] [address] PCP - General Internal Medicine 09/19/22 Petra Silveira, WEB PRESS OPERATOR ASSISTANT-MARKETING PROPOSAL SPECIALIST [address] [place] [phone] Certified Nurse Practitioner 11/08/22 Launch Manager Relationship Specialty Start Date End Date Tim Rolon DO [address] [place] [address] PCP - General Internal Medicine 09/19/22 Petra Silveira, WEB PRESS OPERATOR ASSISTANT-MARKETING PROPOSAL SPECIALIST [address] [place] [phone] Certified Nurse Practitioner 11/08/22 Launch Manager Relationship Specialty Start Date End Date Tim Rolon DO [address] [place] [address] PCP - General Internal Medicine 09/19/22 Petra Silveira WEB PRESS OPERATOR ASSISTANT-MARKETING PROPOSAL SPECIALIST [address] [place] [phone] Certified Nurse Practitioner 11/08/22 Launch Manager Relationship Specialty Start Date End Date Tim Rolon MD [address] [place] [phone] PCP - General Internal Medicine 08/08/22 Launch Manager Relationship Specialty Start Date End Date Tim Rolon DO [address] [place] [address] PCP - General Internal Medicine 09/19/22 Petra Silveira WEB PRESS OPERATOR ASSISTANT-MARKETING PROPOSAL SPECIALIST [address] [place] [phone] Certified Nurse Practitioner 11/08/22 Team Status: Active [...] End: July 07, 2023 Kristine Oneill APRN ROUND UP RING HANDHeavenly Attending Provider Act duncan Start: July 07, 2023 End: July 07, 2023 Launch Manager Relationship Specialty Start Date End Date Tim Rolon DO [address] [place] [address] PCP - General Internal Medicine 09/19/22 Petra Silveira APRN-MARKETING PROPOSAL SPECIALIST [address] [place] [address] Certified Nurse Practitioner 11/08/22 Team Status: Active [...] End: September 24, 2023 Kristine Oneill APRN ROUND UP RING HANDHeavenly Attending Provider Act duncan Start: September 24, 2023 End: September 24, 2023 Launch Manager Relationship Specialty Start Date End Date Tim Rolon DO [address] [place] [facility] [place] [phone] PCP - General Internal Medicine 09/19/22 Petra Silveira APRN-MARKETING PROPOSAL SPECIALIST [address] [place] [phone] Certified Nurse Practitioner 11/08/22 Launch Manager Relationship Specialty Start Date End Date Tim Rolon MD [address] [place] [facility] [address] PCP - General Internal Medicine 08/08/22 Launch Manager Relationship Specialty Start Date End Date Tim Rolon MD [address] [place] [facility] [address] PCP - General Internal Medicine 08/08/22 Launch Manager Relationship Specialty Start Date End Date Tim Rolon MD [address] [place] [facility] [address] PCP - General Internal Medicine 08/08/22 Launch Manager Relationship Specialty Start Date End Date Tim Rolon DO [address] [place] [facility] [address] PCP - General Internal Medicine 08/08/22 Launch Manager Relationship Specialty Start Date End Date Tim Rolon DO [address] [place] [facility] [address] PCP - General Internal Medicine 08/08/22 [...] - Comment: mixed 1:1 w/Lido with epi 1:960476) ceFAZolin (ANCEF) 2 g in dextrose 100 mL premix IVPB (COMPLETED) 2 g, Intravenous, Administer over 30 Minutes, GENERAL OFFICE ASSOCIATE TO PROCEDURE, 1 dose, Starting on Fri01/15/23 at 0758, Until Discontinued, Other, Surgical Prophylaxis, Initiate antibiotic administration 30-60 minutes prior to surgical incision and complete administration prior to surgical incision., Pre-op/Pre-Proc 0955 (Given - Provid er: Geraldo Marion, WEB PRESS OPERATOR ASSISTANT-VICTIM ADVOCATE) lidocaine-epinephrine 2 %-1:438903 injection (CANCELED) NEEDED, Starting on Fri01/15/23 at [...] Intra-op/Intra-Proc 1034 (Given - Provid er: Andi Smiht MD) Vancomycin (VANCOCIN) injection (CANCELED) NEEDED, Starting on Fri01/15/23 at 1033, Until Fri01/15/23 at 1104, Intra-op/Intra-Proc 1033 (Given - Provid er: Andi Smith MD) Vancomycin HCl in NaCl (VANCOCIN) 1,000 mg in 200 ml NS premix IVPB (COMPLETED) 1,000 mg (rounded from 1,006.5 mg = 15 mg/kg 67.1 kg Order-specific weight), Intravenous, Administer over 1 Hours, GENERAL OFFICE ASSOCIATE TO PROCEDURE, 1 dose, Starting on Fri01/15/23 [...] BE BASED ON THE PRIMARY CLINICAL RECORDS. [facility]. provides no warranty or guarantee of the accuracy or completeness of information in this document.
--- OUTSIDE RECORDS SUMMARY | 2024-09-04 11:06 | XMS_ITS | Encounter Summary ---
Author Organization [facility] [facility] Address [address] [place] [address] Care Team Providers Care Tank Truck Milk Receiver Name Role Phone Tim Rolon DO Primary Care Provider [phone] Petra Silveira UPWARD BOUND DIRECTOR-COMPUTER GRAPHIC DESIGNER Unavailable [phone] Encounter Details Date Type Department Care Team (Late st Contact Info) Description 10/21/2019 Refill Neurology [facility] [address] [place] [address] Saeed Farmer Seizure disorder (Primary [...] Mantilla MA - 10/21/2019 9:48 AM EDT [facility] Requested Prescriptions Pending Prescriptions Disp Refills [...] epilepsy documented in this encounter Care Teams Tank Truck Milk Receiver Relationship Specialty Start Date End Date Tim Rolon DO PCP - General Internal Medicine 09/19/22 Petra Silveira, UPWARD BOUND DIRECTOR-COMPUTER GRAPHIC DESIGNER [address] [place] [address] Certified Nurse Practitioner 11/08/22 documented as of this encounter
--- OUTSIDE RECORDS SUMMARY | 2024-09-04 11:06 | XMS_ITS | Encounter Summary ---
Author Organization [facility] Address [address] [facility] [place] [address] Care Team Providers Care Electrical Checkout Mechanic Name Role Phone Tim Rolon DO Primary Care Provider [phone] Encounter Details Date Type Department Care Team (Late st Contact Info) Description 06/27/2023 Clinisync Result Encounter [facility] External Department Unsolicited Yolanda Burks, DO [address], [facility] Social History Tobacco Use [...] Visit [facility] BCP OB [address] [place] [address] Yolanda Burks DO [address], [place] [phone] documented as of this encounter Procedures Procedure Name Priority Date/Time Associated Diagnosis Comments FL HYSTEROSALPINGOGRAM 11:28 AM EDT documented in this encounter Results * FL HYSTEROSALPINGOGRAM (06/27/2023 11:28 AM EDT) Anatomical Region Laterality Modality Other 06/27/2023 11:2 8 AM EDT Narrative 06/27/2023 11:30 AM EDT [address] [address] Fluoroscopy Report Signed Patient: ROWENA GUADALUPE MR#: [id number] : 1990 Acct:[id number] Age/Sex: 32 / F ADM Date: 06/27/23 Loc: LAB Attending Dr: Yolanda Burks D.O. Ordering Physician: Yolanda Burks D.O. Date of Service: 06/27/23 Procedure(s): FL Hysterosal cath placement Accession Number(s): [id number] cc: Tim Rolon D.O.; Yolanda Burks D.O. [place] [address] Patient Name: ROWENA DRAKE MRN: [id number] date: 1990 Sex: F Assigned Patient Location: LAB Current Patient Location: LAB Accession/Order Number: [id number] Exam Date: 06/27/2023 10:15 Report Date: 06/27/2023 [...] Signed By: 06/27/23 1130 DD/ 1128 TD/TT: Energy Sales Broker: Procedure Note Radiology, Radiologist, MD - 06/27/2023 [place] [address] Fluoroscopy Report Signed Patient: ROWENA GUADALUPE BMR#: [id number] : 1990Acct:[id number] Age/Sex: 32 / FADM Date: 06/27/23 Loc: LAB Attending Dr: Yolanda Burks D.O. Ordering Physician: Yolanda Burks D.O. Date of Service: 06/27/23 Procedure(s): FL Hysterosal cath placement Accession Number(s): [id number] cc: iTm Rolon D.O.; Yolanda Burks D.O. [address] [place] [address] Patient Name: ROWENA DRAKE MRN: [id number] date: 1990 Sex: F Assigned Patient Location: LAB Current Patient Location: LAB Accession/Order Number: [id number] Exam Date: 06/27/2023 10:15 Report Date: 06/27/2023 [...] M.D. Signed By:06/27/23 1130 DD/ 1128 TD/TT: Energy Sales Broker: us Yolanda Burks DO [facility] Final Result documented in this encounter Visit Diagnoses Not on filedocumented in this encounter Care Teams Electrical Checkout Mechanic Relationship Specialty Start Date End Date Tim Rolon DO [facility] [place] [address] PCP - General Internal Medicine 08/08/22 documented as of this encounter
--- OUTSIDE RECORDS SUMMARY | 2024-09-04 11:06 | XMS_ITS | Clinical Summary ---
Demographics Address [address] [place] [address] Home Phone Mobile Phone Email Address Email Address Preferred Language Mongolian Marital Status Single Denominational Affiliation Unknown Race White Ethnic Group Not or Lati no Author Organization [facility] Address [address] [place] [address] Care Team Providers Care Liner Machine Operator Name Role Phone Jakob Light MD Primary Care Provider [phone] Allergies Active Allergy Reactions Criticality Noted Date [...] on file Medical Devices Implanted Type Area Insulation Sprayer Device Identifier Shelf Expiration Date Model / Serial / Lot 32 Kwire Implanted:Qty: 3 on 07/18/2016 by Diallo Padilla MD at [facility] Leg/Ankle /Foot/Toe Right: Ankle Screw Schnz Ext Fix Self [id number] Implanted:Qty: 1 on 07/18/2016 by Diallo Padilla MD at [facility] Screw/[place] te/Nail/R od Right: Ankle [id number] / / Screw Schnz Ext Fix Self [id number] Implanted:Qty: 1 on 07/18/2016 by Diallo Padilla MD at [facility] Screw/[place] te/Nail/R od Right: Ankle SYNTHES-PMM [id number] / / Screw Padmini Shrt Thrd Ss 4.0x28mm Implanted:Qty: 1 on 08/21/2016 at [facility] Screw/[place] te/Nail/R od SYNTHES-PMM [id number] / / Screw Padmini Shrt Thrd Ss 4.0x32mm Implanted:Qty: 1 on 08/21/2016 at [facility] Screw/[place] te/Nail/R od SYNTHES-PMM [id number] / / Screw Padmini Shrt Thrd Ss 4.0x38mm Implanted:Qty: 2 on 08/21/2016 at [facility] Screw/[place]spe[place] te/Nail/R od SYNTHES-PMM [id number] / / Screw Padmini Shrt Thrd Ss 4.0x40mm Implanted:Qty: 1 on 08/21/2016 at [facility] Screw/[place] te/Nail/R od SYNTHES-PMM [id number] / / Washer Scrw Padmini Ss 4.0x7mm Implanted:Qty: 5 on 08/21/2016 at [facility] Screw/[place] te/Nail/R od SYNTHES-PMM [id number] / / Washer Scrw Padmini Ss 6.5x13mm Implanted:Qty: 2 on 08/21/2016 at [facility] Screw/[place] te/Nail/R od SYNTHES-PMM 88635 / / Explanted Type Area Insulation Sprayer Device Identifier Shelf Expiration Date Model / Serial / Lot Screw Padmini Shrt Thrd Ss 4.0x30mm Explanted:Qty: 1 on 08/21/2016 at [facility] Screw/Plat e/Nail/Reed SYNTHES-PMM [id number] / / Screw Padmini Shrt Thrd Ss 4.0x36mm Explanted:Qty: 1 on 08/21/2016 at [facility] Screw/Plat e/Nail/Reed SYNTHES-PMM [id number] / / Screw Cortx Slftp Lg Frag 4.5x32mm Implanted:Qty: 1 Explanted:Qty: 1 on 08/21/2016 at [facility] Screw/Plat e/Nail/Reed SYNTHES-PMM [id number] / / Screw Cortx Slftp Lg Frag 4.5x40mm Implanted:Qty: 1 Explanted:Qty: 1 on 08/21/2016 at [facility] Screw/Plat e/Nail/Reed SYNTHES-PMM [id number] / / Screw Cortx Slftp Lg Frag 4.5x42mm Implanted:Qty: 1 Explanted:Qty: 1 on 08/21/2016 at [facility] Screw/Plat e/Nail/Reed SYNTHES-PMM [id number] / / Washer Scrw Padmini Ss 6.5x13mm Explanted:Qty: 1 on 08/21/2016 at [facility] Screw/Plat e/Nail/Reed SYNTHES-PMM [id number] / / Screw Padmini Shrt Thrd Ss 4.0x26mm Explanted:Qty: 1 on 08/21/2016 at [facility] Screw/Plat e/Nail/Reed SYNTHES-PMM [id number] / / Insurance * Guarantor: Rowena Byers Account Type Relation to Patient Date of Phone Billing Address Personal/Family Self 1990 [address] [place] [address] [facility] [address] [place] [address] [facility] [address] [place] [address] [address] [place] [address] * Guarantor: Rowena Byers Account Type Relation to Patient Date of Phone Billing Address Personal/Family Self 1990 [address] [place] [address] Advance Directives * Full Code (Latest Code Status on File) Date Activated Date Inactivated Comments 07/17/2016 8:18 PM 07/19/2016 3:16 PM Care Teams Liner Machine Operator Relationship Specialty Start Date End Date Jakob Light MD [address] [facility] [place] [address] PCP - General 02/25/11
--- OUTSIDE RECORDS SUMMARY | 2024-09-04 11:06 | XMS_ITS | Encounter Summary ---
Author Organization [facility] Address [address] [facility] [place] [address] Care Team Providers Care Assistant Drafter Name Role Phone Tim Rolon DO Primary Care Provider [phone] Encounter Details Date Type Department Care Team ([facility] Contact Info) Description 07/29/2024 Abstract [facility] [address] [facility] [place] [address] Donovan Burks [address] [place] [address] Social History Tobacco Use Types Packs/Day Years [...] 10/28/2024 9:00 AM EDT Office Visit [facility] [address] [place] [address] Donovan Burks [facility] [address] [place] [phone] documented as of this encounter Visit Diagnoses Not on filedocumented in this encounter Care Teams Assistant Drafter Relationship Specialty Start Date End Date Tim Rolon DO [address] [place] [address] PCP - General Internal Medicine 08/08/22 documented as of this encounter
--- OUTSIDE RECORDS SUMMARY | 2024-09-04 11:06 | XMS_ITS | Clinical Summary ---
Author Organization [facility] Address [address] [place] [address] [place] [address] Care Team Providers Care Dimensional Engineer Name Role Phone Tim Rolon DO Primary Care Provider Petra Silveira TOW DRIVER-MENTAL HEALTH CLINICIAN Unavailable [phone] Allergies Active Allergy Reactions Criticality Noted Date Comments Seasonal Runny Nose,Congestion Low 08/21/2016 Medications loratadine 10 MG tablet Take 1 tablet by mouth as needed. Active Melatonin 5 MG Chew Tab Chew 1 tablet at bedtime as needed. Active Prenat MV-Min w/Nx-Jnqjxz-BXD ( COMPLETE PO) Take 1 tablet by [...] than 2014, however, in chart review through [facility] mention of anxiety was noted in 2014). 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 Telephone Neurology Outpatient Care [address] [place], [place] [phone] Joselyn Burks Appointment from Last 3 Months Immunizations Immunization Administration Dates Next Due Influenza Vaccine 01/04/2014 Family History Medical History Relation Name Comments Prostate Cancer Maternal Grandfather Heriberto Rowena - Gl enn Mental Illness Maternal Grandmother Great Grandma Meye rs Depression , Anxiety Cancer- Other Paternal Grandfather Papa Usman Prostate Cancer Paternal Grandfather Papa Usman Diabetes Paternal Uncle Uncle Da Relation Name Status Comments Maternal Grandfather Papa Rowena Craig Maternal Grandmother Great Grandma Falk Paternal [...] CERVICAL CANCER SCREENING DISCUSSION 2013 COVID-19 VACCINE ( - 2023-2 5 season) 2023 INFLUENZA VACCINE (Season Ended) 2024 01/05/20 14 HPV VACCINE Aged Out No longer eligi ble based on patient's age to complete this topic PNEUMOCOCCAL VACCINE SERIES Aged Out No longer eligible based on patient's age to complete this topic Medical Devices Implanted Type Area Waiter/Waitress Tourist Class Device Identifier Shelf Expiration Date Model / Serial / Lot Sentiva Implanted:Qty: 1 on 01/15/2023 by Andi Smith MD at [facility] N/A: Chest 09/03/2024 1000! / [id number] / Procedures Procedure Name Priority Date/Time Associated Diagnosis Comments LABS (OUTSIDE) 06/28/2024 LABS (OUTSIDE) 06/28/2024 from Last 3 Months Results * LABS (OUTSIDE) (06/28/2024) Only the most recent of2 resultswithin the time period is included. 06/28/2024 us Other Other OT LAB SEND OUTS Final Result from Last 3 Months Insurance [employer] Care Teams Dimensional Engineer Relationship Specialty Start Date End Date Tim Rolon DO PCP - General Internal Medicine 09/19/22 Petra Silveira, NOLBERTO-MENTAL HEALTH CLINICIAN [address] [place] [address] Certified Nurse Practitioner 11/08/22
--- OUTSIDE RECORDS SUMMARY | 2024-09-04 11:06 | XMS_ITS | Clinical Summary ---
Author Organization [facility] Address [address] [place], [place] [address] Care Team Providers Care Senior International Tax Manager Name Role Phone Tim Rolon DO Primary Care Provider Donovan Burks DO Unavailable [phone] Social History Tobacco Use Types Packs/Day Years [...] AM EDT Office Visit Reproductive Endocrinology Infertility [address] [place] [address] Tomer Clements MD [address] [place] [address] Donovan Burks's office referring the [...] 2023 Influenza Vaccine (Season Ended) 2024 Insurance [facility] MEDICA[facility] Care Teams Senior International Tax Manager Relationship Specialty Start Date End Date Tim Rolon DO [address] [place] [address] PCP - General Internal Medicine 07/26/24 Donovan Burks DO [address] [place] [address] [place] [address] Referring Medical Intern 07/26/24
--- OUTSIDE RECORDS SUMMARY | 2024-09-04 11:06 | XMS_ITS | Encounter Summary ---
Author Organization [facility] Address [address] [facility] [place] [address] Care Team Providers Care Sausage Inspector Name Role Phone Tim Rolon DO Primary Care Provider [phone] Encounter Details Date Type Department Care Team (Late Contact Info) Description 08/08/2022 Abstract [facility] [address] [place] [place] [address] Donovan Burks DO [address] [place] [address] [place] [address] Social History Tobacco Use Types Packs/Day Years [...] 10/28/2024 9:00 AM EDT Office Visit [facility] [address] [place] [address] Donovan Burks DO [facility] [place] [id number] documented as of this encounter Visit Diagnoses Not on filedocumented in this encounter Care Teams Sausage Inspector Relationship Specialty Start Date End Date Tim Rolon DO [address] [place] [address] PCP - General Internal Medicine 08/08/22 documented as of this encounter
== END 2024-09-04 11:04 | disposition home or self-care (01) ==
LOC: LAB 11:03
PROVIDERS: PCP Internal Medicine; Visit Provider Obstetrics & Gynecology
DX: N97.9 Female infertility, unspecified (principal); N97.0 Female infertility associated with anovulation
CPT/HCPCS: 36415; 84144

== ENCOUNTER 2024-10-09 12:24 | Outpatient (RCR) | payer OTHER, SELFPAY ==
--- OUTSIDE RECORDS SUMMARY | 2024-10-09 12:28 | XMS_ITS | CCD ---
Author Organization [facility] Care Team Providers Care Lithograph Press Operator Tinware Name Role Phone JAMIL SMITH Referring Unavailable ARIA FORDE Primary Care Unavailable JAMIL SMITH Referring Unavailable MAURISIO ARIA D Primary Care Unavailable NONE PER PATIENT, . [...] KIMMIE ., DR GUERRERO Consulting Unavailable Tim Stallings DO Primary Care Provider Raoul CIGARETTE SELLER-ANALYSIS DIRECTOR, Crystal G Unavailable Tim Stallings MD Primary Care Provider DONOVAN BURKS Attending Unavailable Raoul CIGARETTE SELLER-ANALYSIS DIRECTOR, Crystal G Unavailable CORI DENNIS Attending Unavailable TIM STALLINGS Primary Care Unavailable SELF, SELF Referring Unavailable TIM STALLINGS Referring Unavailable TIM STALLINGS Primary Care Unavailable CORI DENNIS Attending Tim Mcdermott MD Primary Care Provider Tim Stallings DO Primary Care Provider DONOVAN BURKS Attending Unavailable MADONNA PARSONS Attending Unavailable DONVOAN BURKS Attending Unavailable Donovan Burks DO Attending Provider Donovan Burks Attending Unavailable Donovan Burks Admitting Unavailable Tim Stallings DO Primary Care Provider Donovan Burks DO R Unavailable KIT CAICEDO Attending Unav ailable TIM STALLINGS Primary Care Unavailable Allergies Allergy Classification Reported Allergen(s) Allergy Type Date of Onset Reaction(s) Facility (11 sources) Seasonal allergy Propensity to adverse reactions to drug 7 Runny Nose, Congestion [facility] Work Phone: (14 sources) Pollen Propensity to adverse reactions 7 Runny nose [facility] (14 sources) Other Propensity to adverse reactions 2 [...] mg / cholecalciferol 500 unt oral capsule (15 sources) Vitamin D Start: 2023 Calcium Carb-Cholecalciferol [...] Active clomiPHENE citrate 50 mg oral tablet (7 sources) Estrogen Agonist/Antagonist Start: 08-16-2024 Clomid 50 MG tablet Indications: Anovulation TAKE 2 TABLETS BY MOUTH ONCE A DAY ON DAYS 3-7 OF CYCLE FOR 5 DAYS 10 tablet 08/16/2024 Active Start: 07-13-2024 Clomid 50 MG t ablet Indications: Anovulation TAKE 2 TABLETS BY MOUTH [...] 2023 12:00am escitalopram 20 mg oral tablet (13 sources) Serotonin Reuptake Inhibitor Start: 04-30-2021 take [...] sulfate 120 mg extended release oral tablet (14 sources) alpha-Adrenergic Agonist take 1 tablet by [...] Indications: Difficulty falling asleep at night until water regulator and valve repairer hours TAKE 1 TABLET BY MOUTH EVERYDAY [...] Vitamins-Minerals ( CULTURELLE PROBIOTICS + MULTIV PO) (14 sources) Multiple Vitamin s-Minerals (CULTURELLE PROBIOTICS + MULTIV PO) Take by mouth Active Multiple Vitamin s-Minerals (CULTURELLE PROBIOTICS + MULTIV PO) Take by mouth 0 Active Prenat MV-Min w/Tq-Wqsyoy-TJ A ( COMPLETE PO) (8 sources) take 1 tablet by josh th once at bedtime Prenat MV-Min w/Ed-Duucfu-RRE ( COMPLETE PO) Take 1 tablet by mouth at bedtime. Active take 1 tablet by mouth once at b edtime Prenat MV-Min w/Mb-Njfjul-NMW ( COMPLETE PO) Take 1 tablet by mouth at bedtime. 0 Active MV-Min-Fe Fum-FA-DH A ( 1 PO) (14 sources) MV-Min- Fe Fum-FA-DHA ( 1 PO) [...] Discontinued 1 TAB PO Twice daily 14 2023 1:10pm September 24, 2023 10:30am etonogestrel [...] 03-05-2022 03-05-2022 Chronic Contraceptive and procreative management (3 sources) Patient encounter status; Translations: [Encounter for [...] SYNDROME] Onset: 05-23-2022 Chronic Other endocrine disorders (15 sources) Polycystic ovary syndrome; Translations: [Polycystic ovarian [...] Test Name Value Interpretation Reference Range Facility [id number] 10-01-2024 HNO ID: [id number] Author: KIT CAICEDO MD Service: ? Author Type: Physician Type: Filed: 10/01/2024 11:29 Note Text: Rowena Drake is a 34 year old female with PCOS and possible male factor infertility. 1. Polycystic ovarian syndrome (E28.2) Diagnosed with PCOS, currently managed with Clomid. Previous treatment with Letrozole was not well-tolerated. Regular menstrual cycles achieved with progesterone therapy. Hysterosalpingography showed patent fallopian tubes. Pelvic ultrasound revealed multiple ovarian cysts, consistent with PCOS. AMH level was 5.7 ng/mL in 2022. No comorbidities such as thyroid dysfunction or diabetes mellitus identified. Continue current Clomid therapy. Monitor menstrual regularity and ovulatory function. Follow-up after completion of male infertility evaluation. 2. General counseling and advice for procreative management (Z31.69) Extensive evaluation and treatment for infertility conducted over the past two years. has type 1 diabetes mellitus, well-controlled with an A1c around 6%. Incomplete semen analysis due to insufficient sample volume. Potential issue of retrograde ejaculation considered. - Referred to [facility] urologists specializing in male infertility: Dr. Bull, Dr. Yu, or Dr. Duron. - Discussed use of special condom for semen collection available at [facility]. - Advised scheduling a follow-up appointment after urological evaluation to discuss further reproductive management options, including IUI or IVF if necessary. This visit was conducted as a virtual visit via zoom. I have communicated my name and active licensure. The patient's identity and physical location were verified at the time of this visit. Either the patient or their legal apprenticeship training representative has been informed of the risks and benefits of -- and alternatives to -- treatment through a remote evaluation and consents to proceed with the evaluation remotely. I spent a total of 20 minutes on the date of the service which included preparing to see the patient, [id number] patient care, completing clinical documentation, counseling and educating the patient/family/caregive r, ordering medications, tests, or procedures, communicating results to the patient/family/caregive r, and care coordination (not separately reported). The patient consented to the use of [place] [employer] Assist software for draft documentation of the visit consistent with [facility]?s Notice of Privacy Practices. [facility] CNPNon 10-01-2024 CNPN Telephone (REIAV) ROWENA GUADALUPE ([id number]) 1990 F Date Time Provider Department 10/01/24 KIT CAICEDO During your visit today, we recorded the following information about you: Angella Arellano MA 10/01/2024 11:14 AM Signed Left message for pt to return call to update fertility screening, partner information, etc. Angella Arellano MA October 01, 2024 11:14 AM Allergies As of Date: 10/01/2024 (Not on File) Date Reviewed: Never Reviewed Reason for Visit: LMTCB [1226] Problem List As Of Date: 10/01/2024 (None) Encounter Status:Closed by ANGELLA ARELLANO on 10/01/24 [facility] CONSULT PROGon 10-01-2024 CONSULT PROG HNO ID: [id number] Author: KIT CAICEDO MD Service: ? Author Type: Physician Type: Consult Progress Note Filed: 10/01/2024 11:29 Note Text: [facility] Date: 10/01/2024 Rowena Drake is a 34 year old female presenting with the following history: HISTORY OF PRESENT ILLNESS: Rowena Drake is a 34 year old female with The patient is a 34-year-old female with a history of PCOS, accompanied by her , presenting for evaluation of infertility. The patient has been attempting to conceive since 2021 and has been under the care of her OBGYN since early 2023 for PCOS and infertility management. She reports an episode in February 2022 where she went nearly 90 days without menstruation, prompting her to seek medical evaluation. Initial lab work revealed a progesterone level of 0.02, leading to a course of progesterone, which successfully induced menstruation. Since then, her menstrual cycles have been regular, occurring every 32-36 days. She was initially prescribed letrozole (Femara) for ovulation induction but experienced adverse effects and subsequently took a two-month break from medication last summer. Since late summer of the previous year, she has been on Clomid, with lab work reportedly showing favorable results. Her , a 39-year-old male, has a history of type 1 diabetes mellitus since age 25, which is well-managed with an HbA1c consistently around 6. He has attempted semen analysis twice, but both attempts were unsuccessful due to insufficient volume for testing. He describes his ejaculate volume as variable, sometimes normal and sometimes low. Labs: (2022) AMH: 5.7 (February 2022) Serum progesterone: 0.02 or 0.4 - Thyroid function tests: normal - Diabetes screening: negative Imaging: - Pelvic ultrasound: Multiple follicles on the ovaries, no other abnormalities - X-ray test to check tubes: Normal Tests: - Semen analysis (attempted twice): Insufficient volume for processing Obstetric History T0 L0 SAB0 IAB0 Ectopic0 Multiple0 Live Births0 Fertility Evaluations and Treatments: Eval Checklist Results Date Comments HSG Hysteroscopy Laparoscopy AMH SIS Semen Analysis Ultrasound Other (See comments) MENSTRUAL HISTORY: Menarche Age: Length of Cycle: Days: Menstrual Flow: Menstrual Symptoms: No LMP recorded. 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) PCOS (polycystic ovarian syndrome) 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 2011 PAST SURGICAL HISTORY Procedure Laterality Date ANKLE SURGERY HX Right 08/21/2016 external fixator removal EXTRACTION ERUPTED TOOTH/EXR wisdom teeth extraction REPAIR OF ANKLE FRACTURE Right 07/18/2016 losed reduction ankle external fixator application FAMILY HISTORY Problem Relation Age of Onset Hypertension Mother No Known Problems Father Arthritis Maternal Grandmother Mental illness Maternal Grandmother Depression, Anxiety Osteoporosis Maternal Grandmother Prostate Cancer Maternal Grandfather Heart Attack Paternal Grandfather Diabetes Paternal Grandfather Prostate Cancer Paternal Grandfather GUMARO Intake Questionnaire Reason for visit: Infertility evaluation, Sperm insemination, Polycystic ovary syndrome (PCOS) Partner with whom fertility is desired: Yes Same sex relationship: No Menstrual cycle pattern: Regular periods (25-34 days in length), Spotting before periods Cycle length (days): 32-34 Days of bleedin-5 OPK use: Yes, able to detect Dysmenorrhea: Always Dyspareunia: No STI history: Genital warts/HPV Last Pap Smear Date: 10/20/23 Last pap outcome: Normal History of abnormal PAP: No, all prior PAP smears have been normal Procedure for abnormal pap smear: None History of abnormal mammogram: Never done Prior chemotherapy or radiation: No Number of caffeinated beverages daily: 1-2 Number of cigarettes smoked daily: None Second hand smoke exposure: No Marijuana use: No Number of alcoholic beverages / week: None Hours of moderate exercise / week: None Ever been : No Pain with intercourse: No Lubricants with intercourse: No Eggs, sperm, or embryos frozen: No Partner Information * If Partner is female, check box for associated questions.: No Partner's Name: Pedro Drake Partner's : Partner's MRN: no mrn Partner's Ethnicity: Partner's Race: MEDICATIONS: No current outpatient medications on file prior to visit. No current facility-administered medications on file prior to visit. ALLERGIES: Patient has no allergy information on record. Blood Type: No results found for this basename: aborhd No results found for this basename: rubqnt,vzvg Assessment and Plan Rowena Drake is a 34 year old (more content not included)... [facility] ALL PROGESTERONEon 5 PROGESTERONE 49.0 ng/mL . [facility] Comment on above: Follicular phase 0.1 - 0.9 Luteal phase 1.8 - 23.9 Ovulation phase 0.1 - 12.0 First trimester 11.0 - 44.3 Second trimester 25.4 - 83.3 Third trimester 58.7 - 214.0 Postmenopausal 0.0 - 0.1 Performed at: [facility] [address] [place] [id number] Nursing Assistants Teacher: Ino Dougherty PhD, Phone: [phone] [facility] ALL PROGESTERONEon 5 PROGESTERONE 32.3 ng/mL . [facility] Comment on above: Follicular phase 0.1 - 0.9 Luteal phase 1.8 - 23.9 Ovulation phase 0.1 - 12.0 First trimester 11.0 - 44.3 Second trimester 25.4 - 83.3 Third trimester 58.7 - 214.0 Postmenopausal 0.0 - 0.1 Performed at: [place] [id number] [place], [place] [id number] Nursing Assistants Teacher: Ino Dougherty PhD, Phone: [phone] [facility] PATHOLOGY REQUEST FOR LAB CO RPon 07-27-2024 PATHOLOGY REQUEST FOR LAB HELGA [facility] Comment on above: See report. Scanned copy available in EMR. SKIN TAG [facility] Pathology Request for Lab Co rpon 07-20-2024 Pathology Request for Lab Helga Normal [facility] Comment on above: Order Comment: SKIN TAG Result Comment: See report. Scanned copy available in EMR. PERFORMED BY: [place] [address] PATHOLOGIST SPRAY GUN STRIPER SAM MARTIN M.D. Performed By: #### [facility] #### [address] ALL PROGESTERONEon 5 PROGESTERONE 32.1 ng/mL . [facility] Comment on above: Follicular phase 0.1 - 0.9 Luteal phase 1.8 - 23.9 Ovulation phase 0.1 - 12.0 First trimester 11.0 - 44.3 Second trimester 25.4 - 83.3 Third trimester 58.7 - 214.0 Postmenopausal 0.0 - 0.1 Performed at: [address] [id number] Nursing Assistants Teacher: Ino Dougherty PhD, Phone: [phone] [facility] Estimated glomerular filtrat ion rate (GFR) non- Americanon 06-28-2024 GFR/1.73 sq M.predicted among non-blacks MDRD (S/P/Bld) [Vol rate/Area] Estimated glomerular filtration rate (GFR) non- >=60 mL/min/1.73 m 2 [facility] Globulin Calc (S) [Mass/Vol] on 06-28-2024 Globulin (S) [Mass/Vol] Serum globulin measurement by calculation (mass/volume) [facility] Laboratory - Chemistry and C hemistry - challengeon 06-28-2024 Albumin [Mass/Vol] 4.0 g/dL 3.4-5.0 [facility] ALP [Catalytic activity/Vol] 43 U/L Low 46-116 [facility] ALT [Catalytic activity/Vol] 18 U/L 14-59 [facility] AST [Catalytic activity/Vol] 14 U/L Low 15-37 [facility] Bilirubin [Mass/Vol] 0.2 mg/dL 0.2-1.0 [facility] Calcium [Mass/Vol] 9.3 mg/dL 8.5-10.1 [facility] Chloride [Moles/Vol] 103 mmol/L 98-107 [facility] CO2 [Moles/Vol] 26.9 mmol/L 21.0-32.0 [facility] Creatinine [Mass/Vol] 0.63 mg/dL 0.55-1.02 [facility] GFR/1.73 sq M.predicted MDRD (S/P/Bld) [Vol rate/Area] mL/min/{1.73_m2} >=60 mL/min/1.73 m 2 [facility] Glucose [Mass/Vol] 89 mg/dL 74-106 [facility] Potassium [Moles/Vol] 4.4 mmol/L 3.5-5.1 [facility] Protein [Mass/Vol] 7.4 g/dL 6.4-8.2 [facility] Sodium [Moles/Vol] 138 mmol/L 136-145 [facility] Urea nitrogen [Mass/Vol] 13.0 mg/dL 7.0-18.0 [facility] Urea nitrogen/Creatinine [Mass ratio] 20.6 mg/mg [facility] No Panel Informationon 06-28 Lamotrigine (Lamictal) Level 4.8 ug/mL 2.0-20.0 [facility] Comment on above: Detection Limit = 1. 0Performed at: [facility] [id number] Director: Tana Gonzalez MD, Phone: [phone] Serum or plasma albumin/glob ulin mass ratioon 06-28-2024 Albumin/Globulin [Mass ratio] Serum or plasma albumin/globulin mass ratio [facility] Serum or plasma anion gap de terminationon 06-28-2024 Anion gap [Moles/Vol] Serum or plasma an ion gap determination [facility] Serum or plasma progesterone measurement (mass/volume)on 06-28-2024 Progesterone [Mass/Vol] Serum or plasma progesterone measurement (mass/volume) . [facility] Comment on above: Follicular phase 0.1 - 0.9 Luteal phase 1.8 - 23.9 Ovulation phase 0.1 - 12.0 First trimester 11.0 - 44.3 Second trimester 25.4 - 83.3 Third trimester 58.7 - 214.0 Postmenopausal 0.0 - 0.1Performed at: [employer] [facility] [address] [place], [place] [id number] Director: Ino Dougherty PhD, Phone: [phone] ALL PROGESTERONEon PROGESTERONE 17.1 ng/mL . [facility] [employer] Comment on above: Follicular phase 0.1 - 0.9 Luteal phase 1.8 - 23.9 Ovulation phase 0.1 - 12.0 First trimester 11.0 - 44.3 Second trimester 25.4 - 83.3 Third trimester 58.7 - 214.0 Postmenopausal 0.0 - 0.1 Performed at: [employer] [facility] [address] [place], [place] [id number] Nursing Assistants Teacher: Ino Dougherty PhD, Phone: [phone] [facility] [employer] Serum or plasma progesterone measurement (mass/volume)on 05-26-2024 Progesterone [Mass/Vol] Serum or plasma progesterone measurement (mass/volume) . [facility] Comment on above: Follicular phase 0.1 - 0.9 Luteal phase 1.8 - 23.9 Ovulation phase 0.1 - 12.0 First trimester 11.0 - 44.3 Second trimester 25.4 - 83.3 Third trimester 58.7 - 214.0 Postmenopausal 0.0 - 0.1Performed at: [address] [id number] Director: Ino Dougherty PhD, Phone: [phone] ALL PROGESTERONEon 4 PROGESTERONE 21.2 ng/mL . [facility] Comment on above: Follicular phase 0.1 - 0.9 Luteal phase 1.8 - 23.9 Ovulation phase 0.1 - 12.0 First trimester 11.0 - 44.3 Second trimester 25.4 - 83.3 Third trimester 58.7 - 214.0 Postmenopausal 0.0 - 0.1 Performed at: [address] [id number] Nursing Assistants Teacher: Ino Dougherty PhD, Phone: [phone] [facility] ALL PROGESTERONEon 202 4 PROGESTERONE 25.4 ng/mL . [facility] Comment on above: Follicular phase 0.1 - 0.9 Luteal phase 1.8 - 23.9 Ovulation phase 0.1 - 12.0 First trimester 11.0 - 44.3 Second trimester 25.4 - 83.3 Third trimester 58.7 - 214.0 Postmenopausal 0.0 - 0.1 Performed at: [address] [id number] Nursing Assistants Teacher: Ino Dougherty PhD, Phone: [phone] [facility] ALL PROGESTERONEon 202 4 PROGESTERONE 19.7 ng/mL . [facility] Comment on above: Follicular phase 0.1 - 0.9 Luteal phase 1.8 - 23.9 Ovulation phase 0.1 - 12.0 First trimester 11.0 - 44.3 Second trimester 25.4 - 83.3 Third trimester 58.7 - 214.0 Postmenopausal 0.0 - 0.1 Performed at: [address] [id number] Nursing Assistants Teacher: Ino Dougherty PhD, Phone: [phone] [facility] ALL PROGESTERONEon PROGESTERONE 20.0 ng/mL . [facility] Comment on above: Follicular phase 0.1 - 0.9 Luteal phase 1.8 - 23.9 Ovulation phase 0.1 - 12.0 First trimester 11.0 - 44.3 Second trimester 25.4 - 83.3 Third trimester 58.7 - 214.0 Postmenopausal 0.0 - 0.1 Performed at: [facility] [address] [place] [id number] Nursing Assistants Teacher: Ino Dougherty PhD, Phone: [phone] [facility] [employer] Serum or plasma progesterone measurement (mass/volume)on 09-11-2023 Progesterone [Mass/Vol] 12.9 ng/mL . [facility] Comment on above: Follicular phase 0.1 - 0.9 Luteal phase 1.8 - 23.9 Ovulation phase 0.1 - 12.0 First trimester 11.0 - 44.3 Second trimester 25.4 - 83.3 Third trimester 58.7 - 214.0 Postmenopausal 0.0 - 0.1Performed at: [facility] [id number] Director: Ino Dougherty PhD, Phone: [phone] Serum or plasma progesterone measurement (mass/volume)on 08-08-2023 Progesterone [Mass/Vol] 11.3 ng/mL . [facility] Comment on above: Follicular phase 0.1 - 0.9 Luteal phase 1.8 - 23.9 Ovulation phase 0.1 - 12.0 First trimester 11.0 - 44.3 Second trimester 25.4 - 83.3 Third trimester 58.7 - 214.0 Postmenopausal 0.0 - 0.1Performed at: [facility] HospitalYsgokk[address] [place] [id number] Director: Ino Dougherty PhD, Phone: [phone] Serum or plasma progesterone measurement (mass/volume)on 07-09-2023 Progesterone [Mass/Vol] 16.6 ng/mL . [facility] Comment on above: Follicular phase 0.1 - 0.9 Luteal phase 1.8 - 23.9 Ovulation phase 0.1 - 12.0 First trimester 11.0 - 44.3 Second trimester 25.4 - 83.3 Third trimester 58.7 - 214.0 Postmenopausal 0.0 - 0.1Performed at: [facility]zvvbr[address] [place], [place] [id number] Director: Ino Dougherty PhD, Phone: [phone] No Panel Informationon 06-26 Human Chorionic Gonadotropin, Quant <1 mIU/mL [facility] Comment on above: 5-50 0.2-1 KEDB87-25 0 1-2 MLDOA935-6,000 2-3 QWDRV286-34,000 3-4 WEEKS1,000-50,000 4-5 WEEKS10,000-100,000 5-6 WEEKS15,000-200,000 6-8 WEEKS10,000-100,000 2-3 MONTHS Serum or plasma progesterone measurement (mass/volume)on 06-08-2023 Progesterone [Mass/Vol] 20.7 ng/mL . [facility] Comment on above: Follicular phase 0.1 - 0.9 Luteal phase 1.8 - 23.9 Ovulation phase 0.1 - 12.0 First trimester 11.0 - 44.3 Second trimester 25.4 - 83.3 Third trimester 58.7 - 214.0 Postmenopausal 0.0 - 0.1Performed at: [facility] HospitalMiruju[address] [place], [place] [id number] Director: Ino Dougherty PhD, Phone: [phone] Laboratory - Chemistry and C hemistry - challengeon 05-09-2023 Free T4 [Mass/Vol] 0.77 ng/dL 0.76-1.46 [facility] No Panel Informationon 05-08 Free Triiodothyronine 2.78 pg/mL 2.18-3.98 [facility] Serum or plasma progesterone measurement (mass/volume)on 05-09-2023 Progesterone [Mass/Vol] 19.3 ng/mL . [facility] Comment on above: Follicular phase 0.1 - 0.9 Luteal phase 1.8 - 23.9 Ovulation phase 0.1 - 12.0 First trimester 11.0 - 44.3 Second trimester 25.4 - 83.3 Third trimester 58.7 - 214.0 Postmenopausal 0.0 - 0.1Performed at: CB - [facility] [address] [place], [place] [id number] Director: Ino Dougherty PhD, Phone: [phone] BETA HCG, URINE (POC DEVICE) on 01-15-2023 Beta HCG ( test) Ql (U) Negative Negative [facility] Interpretation and review of laboratory results Normal [facility] Test performed at address of the patient encounter. [facility] CARDIAC RHYTHM (SCANNED)on 03-17-2022 [facility] CBC AND ELECTRONIC DIFFon Basophils (Bld) [#/Vol] 0.05 10*3/uL 0.00 - 0.15 K/uL [facility] Basophils/100 WBC (Bld) 0.5 % [facility] Differential cell count method Nom (Bld) Electronic Differential [facility] Eosinophils (Bld) [#/Vol] 0.12 10*3/uL 0.00 - 0.42 K/uL [facility] Eosinophils/100 WBC (Bld) 1.2 % [facility] Erythrocyte distribution width (RBC) [Ratio] 13.1 % 10.8 - 14.9 % [facility] Hematocrit (Bld) [Volume fraction] 42.5 % 34.9 - 44.3 % [facility] Hemoglobin (Bld) [Mass/Vol] 14.3 g/dL 11.4 - 15.2 g/dL [facility] Immature granulocytes (Bld) [#/Vol] K/uL NINF - 0.08 K/uL [facility] Immature granulocytes/100 WBC (Bld) 0.3 % [facility] Lymphocytes (Bld) [#/Vol] 3.42 10*3/uL 1.16 - 3.51 K/uL [facility] Lymphocytes/100 WBC (Bld) 32.9 % [facility] MCH (RBC) [Entitic mass] 31.1 pg 25. 9 - 33.9 pg [facility] MCHC (RBC) [Mass/Vol] 33.6 g/dL 31.4 - 35.9 g/dL [facility] MCV (RBC) [Entitic vol] 92.4 fL 79.6 - 97.7 fL [facility] Monocytes (Bld) [#/Vol] 0.62 10*3/uL 0.22 - 0.87 K/uL [facility] Monocytes/100 WBC (Bld) 6.0 % [facility] Neutrophils (Bld) [#/Vol] 6.14 10*3/uL 1.64 - 7.28 K/uL [facility] Nucleated RBC/100 WBC (Bld) [Ratio] 0.0 % NINF [facility] Platelet mean volume (Bld) [Entitic vol] 10.8 fL 8.5 - 12.2 fL [facility] Platelets (Bld) [#/Vol] 326 10*3/uL 150 - 393 K/uL [facility] RBC (Bld) [#/Vol] 4.60 10*6/[facility]L [facility] Segmented neutrophils/100 WBC (Bld) 59.1 % [facility] WBC (Bld) [#/Vol] 10.38 10*3/uL 3.99 - 11.19 K/uL [facility] HCG ( test) Ql (U)O rdered By: Jamil Santos on 01-09-2023 Beta HCG ( test) Ql Negative Negative [facility] Interpretation and review of laboratory results Normal [facility] PT,INR,PTTon 01-09-2023 aPTT Coag (PPP) [Time] 31.1 s OS [facility] INR Coag (Bld) [Relative time] 1.0 {INR} 0.9 - 1.1 [facility] Interpretation and review of laboratory results Normal [facility] PT Coag (PPP) [Time] 13.0 s [facility] SCREEN: MRSA/MSSAOrdered By: Alexandra Slater on 01-09-2023 Interpretation and review of laboratory results Abnormal [facility] Methicillin Resistant S. Aureus By Pcr Negative Negative [facility] Staphylococcus Aureus By Pcr Positive Abnormal Negative [facility] This test was perfor med using a real time PCR assay. Results [...] at [facility]. It has not been cleared or approved by the FDA.The laboratory is regulated under CLIA as qualified to perform high-complexity testing. This test is used for clinical purposes. It should not be regarded as investigational or for research. [facility] XR Cervical and thoracic and lumbar spine Viewson 01-09-2023 IMPRESSION: Intact vagus nerve stimulator as described. OLOGY EXAM: XR STIMULATOR/INTRATHECAL PUMP CERVICAL/THORACIC/LUMBA R (Cervical, thoracic and Lumbar spine X-ray 2 [...] Alice Crespo MD - 01/09/2023 EXAM: XR STIMULATOR/INTRATHECAL PUMP CERVICAL/THORACIC/LUMBA R (Cervical, thoracic and Lumbar spine X-ray 2 [...] IMPRESSION: Intact vagus nerve stimulator as described. [facility] Radiology Study observation (narrative) [facility] Cervical and thoracic and lumbar spine ViewsOrdered By: Alice Crespo on 01-09-2023 [facility] Work Phone: [phone] PROGESTERONEon 05-24-2022 Progesterone 5.5 ng/mL Normal [facility] Comment on above: Result Comment: Foll icular phase 0.1 - 0.9 Luteal phase 1.8 - 23.9 Ovulation phase 0.1 - 12.0 First trimester 11.0 - 44.3 Second trimester 25.4 - 83.3 Third trimester 58.7 - 214.0 Postmenopausal 0.0 - 0.1 Performed By: #### P DANIEL #### [facility] [address] [place] [address] Dr. Nicol Oswald LAMOTRIGINEon 05-02-2022 Lamotrigine, Serum 4.7 ug/mL Normal 2.0-20.0 [facility] Comment on above: Result Comment: Dete ction Limit = 1.0 Performed By: #### P DANIEL #### [facility] [address] [address] [address] Nicol Oswald CBC AUTO DIFFon 04-30-2022 BASO # 0.0 103/ul Normal 0.0-0.1 [facility] Comment on above: Performed By: #### C BC #### [facility] [address] [address] [address] Nicol Oswald Basophils/100 WBC (Bld) 0.4 % Normal 0.2-2.0 [facility] Comment on above: Performed By: #### C BC #### [facility] [address] [address] [address] Nicol Oswald EO # 0.2 103/ul Normal 0.0-0.7 [facility] Comment on above: Performed By: #### C BC #### [facility] [address] [place] [address] Dr. Nicol Oswald Eosinophils/100 WBC (Bld) 1.9 % Normal 0.9-7.0 [facility] Comment on above: Performed By: #### C BC #### [facility] [address] [place] [address] Dr. Nicol Oswald Erythrocyte distribution width (RBC) [Ratio] 12.8 % Normal 11.0-15.0 [facility] Comment on above: Performed By: #### C BC #### [facility] [address] [place] [address] Dr. Nicol Oswald Hematocrit (Bld) [Volume fraction] 40.4 % Normal 36.0-48.0 [facility] Comment on above: Performed By: #### C BC #### [facility] [address] [place] [address] Dr. Nicol Oswald Hemoglobin (Bld) [Mass/Vol] 13.6 g/dL Normal 12.0-16.0 [facility] Comment on above: Performed By: #### C BC #### [facility] [address] [place] [address] Dr. Nicol Oswald IG # 0.03 10e3/ul Normal 0.00-0.03 [facility] Comment on above: Performed By: #### C BC #### [facility] [address] [place] [address] Dr. Nicol Oswald IG % 0.4 % Normal 0.0-0.5 [facility] Comment on above: Performed By: #### C BC #### [facility] [address] [place] [address] Dr. Nicol Oswald LYMPH # 3.1 103/ul Normal 1.2-3.8 [facility] Comment on above: Performed By: #### C BC #### [facility] [address] [place] [address] Dr. Nicol Oswald Lymphocytes/100 WBC (Bld) 36.4 % Normal 20.5-60.0 [facility] Comment on above: Performed By: #### C BC #### [facility] [address] [place] [address] Dr. Nicol Oswald MANUAL DIFF REQ NO Normal [facility] Comment on above: Performed By: #### C BC #### [facility] [address] [place] [address] Dr. Nicol Oswald MCH (RBC) [Entitic mass] 31.0 pg Normal 26.7-34.0 [facility] Comment on above: Performed By: #### C BC #### [facility] [address] [place] [address] Dr. Nicol Oswald MCHC (RBC) [Mass/Vol] 33.7 g/dL Normal 29.9-35.2 [facility] Comment on above: Performed By: #### C BC #### [facility] [address] [place] [address] Dr. Nicol Oswald MCV (RBC) [Entitic vol] 92.0 fL Normal 81.0-99.0 [facility] Comment on above: Performed By: #### C BC #### [facility] [address] [place] [address] Dr. Nicol Oswald MONO # 0.7 103/ul Normal 0.3-0.8 [facility] Comment on above: Performed By: #### C BC #### [facility] [address] [place] [address] Dr. Nicol Oswald Monocytes/100 WBC (Bld) 7.7 % Normal 1.7-12.0 [facility] Comment on above: Performed By: #### C BC #### [facility] [address] [place] [address] Dr. Nicol Oswald NEUT # 4.5 103/ul Normal 1.4-6.5 [facility] Comment on above: Performed By: #### C BC #### [facility] [address] [place] [address] Dr. Nicol Oswald Neutrophils/100 WBC (Bld) 53.2 % Normal 43.0-75.0 [facility] Comment on above: Performed By: #### C BC #### [facility] [address] [place] [address] Dr. Nicol Oswald Platelet mean volume (Bld) [Entitic vol] 11.0 fL Normal 9.5-13.5 [facility] Comment on above: Performed By: #### C BC #### [facility] [address] [place] [address] Dr. Nicol Oswald PLT 282 103/ul Normal 150-450 [facility] Comment on above: Performed By: #### C BC #### [facility] [address] [place] [address] Dr. Nicol Oswald RBC 4.39 106/ul Normal 4.20-5.40 [facility] Comment on above: Performed By: #### C BC #### [facility] [address] [place] [address] Dr. Nicol Oswald WBC 8.4 103/ul Normal 4.0-11.0 [facility] Comment on above: Performed By: #### C BC #### [facility] [address] [place] [address] Dr. Nicol Oswald LIVER PROFILEon 04-30-2022 Albumin [Mass/Vol] 4.1 g/dL Normal 3.4-5.0 [facility] Comment on above: Performed By: #### Tenzin SANCHEZ #### [facility] [address] [place] [address] Dr. Nicol Oswald Albumin/Globulin [Mass ratio] 1.2 {ratio} Normal [facility] Comment on above: Performed By: #### P DANIEL #### [facility] [address] [place] [address] Dr. Nicol Oswald ALP [Catalytic activity/Vol] 52 U/L Normal 46-116 [facility] Comment on above: Performed By: #### P DANIEL #### [facility] [address] [place] [address] Dr. Nicol Oswald ALT [Catalytic activity/Vol] 23 U/L Normal 14-59 [facility] Comment on above: Performed By: #### P DANIEL #### [facility] [address] [address] [address] Nicol Oswald AST [Catalytic activity/Vol] 17 U/L Normal 15-37 [facility] Comment on above: Performed By: #### P DANIEL #### [facility] [address] [address] [address] Nicol Oswald BILI, CONJUGATED 0.1 mg/dL Normal 0.0-0.2 [facility] Comment on above: Performed By: #### P DANIEL #### [facility] [address] [address] [address] Nicol Oswald Bilirubin [Mass/Vol] 0.2 mg/dL Normal 0.2-1.0 [facility] Comment on above: Performed By: #### P DANIEL #### [facility] [address] [place] [address] Dr. Nicol Oswald Globulin (S) [Mass/Vol] 3.4 g/dL Normal [facility] Comment on above: Performed By: #### P DANIEL #### [facility] [address] [place] [address] Dr. Nicol Oswald Protein [Mass/Vol] 7.5 g/dL Normal 6.4-8.2 [facility] Comment on above: Performed By: #### P DANIEL #### [facility] [address] [place] [address] Dr. Nicol Oswald PROF CHEM 8 (BAS METB)on Anion gap [Moles/Vol] 8.5 mmol/L Normal [facility] Comment on above: Performed By: #### P DANIEL #### [facility] [address] [place] [address] Dr. Nicol Oswald Calcium [Mass/Vol] 9.4 mg/dL Normal 8.5-10.1 [facility] Comment on above: Performed By: #### P DANIEL #### [facility] [address] [place] [address] Dr. Nicol Oswald Chloride [Moles/Vol] 102 mmol/L Normal 98-107 [facility] Comment on above: Performed By: #### P DANIEL #### [facility] [address] [address] [address] Nicol Oswald CO2 [Moles/Vol] 30.4 mmol/L Normal 21.0-32.0 [facility] Comment on above: Performed By: #### P JASONES #### [facility] [address] [address] [address] Nicol Oswald Creatinine [Mass/Vol] 0.57 mg/dL Normal 0.55-1.02 [facility] Comment on above: Performed By: #### P ROGES #### [facility] [address] [address] [address] Nicol Oswald EGFR-AF CUBAN >60 Normal >=60 [facility] Comment on above: Performed By: #### P DANIEL #### [facility] [address] [place] [address] Dr. Nicol Oswald EGFR-NON AF CUBAN >60 Normal >=60 [facility] Comment on above: Performed By: #### P ROGLYNDA #### [facility] [address] [place] [address] Dr. Nicol Oswald Glucose [Mass/Vol] 89 mg/dL Normal 74-106 [facility] Comment on above: Performed By: #### P DANIEL #### [facility] [address] [place] [address] Dr. Nicol Oswald Potassium [Moles/Vol] 3.9 mmol/L Normal 3.5-5.1 [facility] Comment on above: Performed By: #### P ROGES #### [facility] [address] [address] [address] Nicol Oswald Sodium [Moles/Vol] 137 mmol/L Normal 136-145 [facility] Comment on above: Performed By: #### P ROGES #### [facility] [address] [address] [address] Nicol Oswald Urea nitrogen [Mass/Vol] 10.0 mg/dL Normal 7.0-18.0 [facility] Comment on above: Performed By: #### P ROGES #### [facility] [address] [address] [address] Nicol Oswald Urea nitrogen/Creatinine [Mass ratio] 17.5 mg/mg Normal [facility] Comment on above: Performed By: #### Tenzin SANCHEZ #### [facility] [address] [address] [address] Nicol Oswald ESTROGENon 04-19-2022 Estrogens, Total 124 pg/mL Normal [facility] Comment on above: Result Comment: Prep ubertal < 40 Female Cycle: 1-10 Days 16 - 328 11-20 Days 34 - 501 21-30 Days 48 - 350 Post-Menopausal 40 - 244 Performed By: #### E CURTISG #### [facility] [address] [address] [address] Nicol Oswald DHEA SERUMon 04-18-2022 Dehydroepiandrosterone (DHEA) 371 ng/dL Normal 31-701 [facility] Comment on above: Result Comment: Age 3 [...] 701 Performed By: #### Tenzin SANCHEZ #### [facility] [address] [address] [address] Nicol Oswald DHEA-SULFATEon 04-16-2022 DHEA-Sulfate 371.0 ug/dL Normal 84.8-378.0 [facility] Comment on above: Performed By: #### Tenzin SANCHEZ #### [facility] [address] [address] [address] Nicol Oswald FSHon 04-16-2022 FSH 5.6 mIU/mL Normal [facility] Comment on above: Result Comment: Adul t Female: Follicular phase 3.5 - 12.5 Ovulation phase 4.7 - 21.5 Luteal phase 1.7 - 7.7 Postmenopausal 25.8 - 134.8 Performed By: #### Tenzin SANCHEZ #### [facility] [address] [address] [address] Nicol Oswald LUTEINIZING HORMONE (LH)on 0 04-16-2022 LH 12.9 mIU/mL Normal [facility] Comment on above: Result Comment: Adul t Female: Follicular phase 2.4 - 12.6 Ovulation phase 14.0 - 95.6 Luteal phase 1.0 - 11.4 Postmenopausal 7.7 - 58.5 Performed By: #### P ROGES #### [facility] [address] [address] [address] Nicol Oswald PROGESTERONEon 04-16-2022 Progesterone 0.2 ng/mL Normal [facility] Comment on above: Result Comment: Foll icular phase 0.1 - 0.9 Luteal phase 1.8 - 23.9 Ovulation phase 0.1 - 12.0 First trimester 11.0 - 44.3 Second trimester 25.4 - 83.3 Third trimester 58.7 - 214.0 Postmenopausal 0.0 - 0.1 Performed By: #### P DANIEL #### [facility] [address] [place] [address] Dr. Nicol Oswald PROLACTINon 04-16-2022 Prolactin 7.1 ng/mL Normal 4.8-23.3 [facility] Comment on above: Performed By: #### P ROLAC #### [facility] [address] [address] [address] Nicol Oswald US PELVIS AND TRANSVAGon US PELVIS AND TRANSVAG EXAMINATION: US P HALLIE AND TRANSVAG HISTORY: Polycystic ovary syndrome ; [...] CYDNEY VALDEZ Date: 2022-04-16 08:48 Normal [facility] CBC AUTO DIFFon 04-15-2022 BASO # 0.0 103/ul Normal 0.0-0.1 [facility] Comment on above: Performed By: #### C BC #### [facility] [address] [place] [address] Dr. Nicol Oswald Basophils/100 WBC (Bld) 0.5 % Normal 0.2-2.0 [facility] Comment on above: Performed By: #### C BC #### [facility] [address] [place] [address] Dr. Nicol Oswald EO # 0.2 103/ul Normal 0.0-0.7 [facility] Comment on above: Performed By: #### C BC #### [facility] [address] [place] [address] Dr. Nicol Oswald Eosinophils/100 WBC (Bld) 2.1 % Normal 0.9-7.0 [facility] Comment on above: Performed By: #### C BC #### [facility] [address] [place] [address] Dr. Nicol Oswald Erythrocyte distribution width (RBC) [Ratio] 12.5 % Normal 11.0-15.0 [facility] Comment on above: Performed By: #### C BC #### [facility] [address] [place] [address] Dr. Nicol Oswald Hematocrit (Bld) [Volume fraction] 44.7 % Normal 36.0-48.0 [facility] Comment on above: Performed By: #### C BC #### [facility] [address] [place] [address] Dr. Nicol Oswald Hemoglobin (Bld) [Mass/Vol] 14.3 g/dL Normal 12.0-16.0 [facility] Comment on above: Performed By: #### C BC #### [facility] [address] [place] [address] Dr. Nicol Oswald IG # 0.01 10e3/ul Normal 0.00-0.03 [facility] Comment on above: Performed By: #### C BC #### [facility] [address] [place] [address] Dr. Nicol Oswald IG % 0.1 % Normal 0.0-0.5 [facility] Comment on above: Performed By: #### C BC #### [facility] [address] [place] [address] Dr. Nicol Oswald LYMPH # 2.0 103/ul Normal 1.2-3.8 [facility] Comment on above: Performed By: #### C BC #### [facility] [address] [place] [address] Dr. Nicol Oswald Lymphocytes/100 WBC (Bld) 26.0 % Normal 20.5-60.0 [facility] Comment on above: Performed By: #### C BC #### [facility] [address] [place] [address] Dr. Nicol Oswald MANUAL DIFF REQ NO Normal [facility] Comment on above: Performed By: #### C BC #### [facility] [address] [place] [address] Dr. Nicol Oswald MCH (RBC) [Entitic mass] 30.8 pg Normal 26.7-34.0 [facility] Comment on above: Performed By: #### C BC #### [facility] [address] [place] [address] Dr. Nicol Oswald MCHC (RBC) [Mass/Vol] 32.0 g/dL Normal 29.9-35.2 [facility] Comment on above: Performed By: #### C BC #### [facility] [address] [place] [address] Dr. Nicol Oswald MCV (RBC) [Entitic vol] 96.3 fL Normal 81.0-99.0 [facility] Comment on above: Performed By: #### C BC #### [facility] [address] [place] [address] Dr. Nicol Oswald MONO # 0.6 103/ul Normal 0.3-0.8 [facility] Comment on above: Performed By: #### C BC #### [facility] [address] [address] [address] Nicol Oswald Monocytes/100 WBC (Bld) 7.3 % Normal 1.7-12.0 [facility] Comment on above: Performed By: #### C BC #### [facility] [address] [place] [address] Dr. Nicol Oswald NEUT # 4.9 103/ul Normal 1.4-6.5 [facility] Comment on above: Performed By: #### C BC #### [facility] [address] [place] [address] Dr. Nicol Oswald Neutrophils/100 WBC (Bld) 64.0 % Normal 43.0-75.0 [facility] Comment on above: Performed By: #### C BC #### [facility] [address] [place] [address] Dr. Nicol Oswald Platelet mean volume (Bld) [Entitic vol] 11.3 fL Normal 9.5-13.5 [facility] Comment on above: Performed By: #### C BC #### [facility] [address] [place] [address] Dr. Nicol Oswald PLT 302 103/ul Normal 150-450 [facility] Comment on above: Performed By: #### C BC #### [facility] [address] [place] [address] Dr. Nicol Oswald RBC 4.64 106/ul Normal 4.20-5.40 [facility] Comment on above: Performed By: #### C BC #### [facility] [address] [place] [address] Dr. Nicol Oswald WBC 7.7 103/ul Normal 4.0-11.0 [facility] Comment on above: Performed By: #### C BC #### [facility] [address] [place] [address] Dr. Nicol Oswald FREE T4on 04-15-2022 Free T4 [Mass/Vol] 0.80 ng/dL Normal 0.76-1.46 [facility] Comment on above: Performed By: #### F T4 #### [facility] [address] [place] [address] Dr. Nicol Oswald GLYCOHEMOGLOBIN A1Con 2022 ADA RECOMMENDATION SEE BELOW Normal [facility] Comment on above: Result Comment: ADA RECOMMENDED LIMIT 4.0 - 6.0 ADA THERAPEUTIC TARGET < 7.0 ACTION SUGGESTED > 7.0 Performed By: #### A 1C #### [facility] [address] [place] [address] Dr. Nicol Oswald Glucose [Mass/Vol] 114 mg/dL Normal [facility] Comment on above: Performed By: #### A 1C #### [facility] [address] [place] [address] Dr. Nicol Oswald HbA1c (Bld) [Mass fraction] 5.6 % Normal 4.5-6.2 [facility] Comment on above: Performed By: #### A 1C #### [facility] [address] [place] [address] Dr. Nicol Oswald PREG QUANT HCGon 04-15-2022 HCG QUANT <1 Normal [facility] Comment on above: Performed By: #### P REGQNT, TSH #### [facility] [address] [place] [address] Dr. Nicol Oswald HCG RANGE SEE BELOW Normal [facility] Comment on above: Result Comment: 5-50 0.2-1 WEEK 50-500 1-2 WEEKS 100-5,000 2-3 WEEKS 500-10,000 3-4 WEEKS 1,000-50,000 4-5 WEEKS 10,000-100,000 5-6 WEEKS 15,000-200,000 6-8 WEEKS 10,000-100,000 2-3 MONTHS Performed By: #### P REGQNT, TSH #### [facility] [address] [place] [address] Dr. Nicol Oswald TSHon 04-15-2022 TSH 1.312 uIU/mL Normal 0.358-3.740 [facility] Comment on above: Performed By: #### P REGQNT, TSH #### [facility] [address] [place] [address] Dr. Nicol Oswald PAP ACOG PANEL 2: 23 to 31on 08-31-2021 . . Normal [facility] Comment on above: Performed By: #### P ROGES #### [facility] [address] [place] [address] Dr. Nicol Oswald Age Gdln ACOG Testing 21-29 [facility] Comment on above: Performed By: #### P ROGES #### [facility] [address] [place] [address] Dr. Nicol Oswald DIAGNOSIS: Comment [facility] Comment on above: Result Comment: NEGA TIVE FOR INTRAEPITHELIAL LESION OR MALIGNANCY. THIS SPECIMEN WAS RESCREENED PART OF OUR SENIOR ASSOCIATE PROGRAM. Performed By: #### P ROGES #### [facility] [address] [place] [address] Dr. Nicol Oswald Methodology: Comment [facility] Comment on above: Result Comment: This liquid based ThinPrep(R) pap test was screened with the use of an image guided system. Performed By: #### P ROGES #### [facility] [address] [place] [address] Dr. Nicol Oswadl Note: Comment [facility] Comment on above: Result Comment: The Pap smear is a screening test designed to aid in the detection of premalignant and malignant conditions of the uterine cervix. It is not a diagnostic procedure and should not be used as the sole means of detecting cervical cancer. Both false-positive and false-negative reports do occur. . Performed By: #### P ROGES #### [facility] [address] [place] [address] Dr. Nicol Oswald Performed by: Comment Normal [facility] Comment on above: Result Comment: Mireille Blanco, Newspaper Copy Editor (ASCP) Performed By: #### P DANIEL #### [facility] [address] [place] [address] Dr. Nicol Oswald QC reviewed by: Comment Normal [facility] Comment on above: Result Comment: Tahira Roque, Newspaper Copy Editor (ASCP) Performed By: #### P ROGLYNDA #### [facility] [address] [address] [address] Nicol Oswald Reflex Criteria: Comment Normal [facility] Comment on above: Result Comment: The HPV DNA reflex criteria were not met with this specimen result therefore, no HPV testing was performed. . Performed By: #### P DANIEL #### [facility] [address] [address] [address] Nicol Oswald Specimen adequacy: Comment Normal [facility] Comment on above: Result Comment: Sati sfactory for evaluation. Endocervical and/or squamous metaplastic cells (endocervical component) are present. Performed By: #### P DANIEL #### [facility] [address] [address] [address] Nicol Oswald CBC Auto Diff Reflex Manualo n 02-18-2019 Automated Absolute Neutrophil 5.73 10*3/mm3 Normal [facility] Comment on above: Result Comment: Auto mated Absolute Neutrophil Count (ANC) is directly measured using a hematology instrument. ANC determined from manual differential cell count may differ. No [facility] reference range has been validated for this assay. Performed By: #### C D #### [place] [address] Basophil 0.5 % Normal 0.0-1.0 [facility] [facility] Comment on above: Performed By: #### C D #### [place] [address] Differential Type Automated [facility] Comment on above: Performed By: #### C D #### [place] [address] Eosinophil 1.6 % Normal 1.0-4.0 [facility] Comment on above: Performed By: #### C D #### [place] [address] Erythrocyte distribution width (RBC) [Ratio] 13.4 % Normal 10-14.1 [facility] Comment on above: Performed By: #### C D #### [place] [address] Lymphocyte 22.6 % Low 24.0-44.0 [facility] Comment on above: Performed By: #### C D #### Performed at [address] [address] MCH (RBC) [Entitic mass] 30.7 pg Normal 26-34 [facility] Comment on above: Performed By: #### C D #### Performed at [address] [address] MCHC (RBC) [Mass/Vol] 33.2 % Normal 31.0-37.0 [facility] Comment on above: Performed By: #### C D #### Performed at [address] [address] MCV (RBC) [Entitic vol] 92.4 fL Normal 80-100 [facility] Comment on above: Performed By: #### C D #### Performed at [address] [address] Monocyte 8.2 % High 1.0-7.0 [facility] Comment on above: Performed By: #### C D #### Performed at [address] [address] Neutrophil 67.1 % Normal 41.0-77.0 [facility] Comment on above: Performed By: #### C D #### Performed at [address] [address] Platelet mean volume (Bld) [Entitic vol] 11.5 fL Normal 9.3-13.0 [facility] Comment on above: Performed By: #### C D #### Performed at [address] [address] Platelets (Bld) [#/Vol] 268 10*3/uL Normal 140-440 [facility] Comment on above: Performed By: #### C D #### Performed at [address] [address] RBC (Bld) [#/Vol] 4.60 10*6/uL Normal 4.0-5.[address] [facility] Comment on above: Performed By: #### C D #### Performed at [address] [address] WBC (Bld) [#/Vol] 8.6 10*3/uL Normal 4.5-11 [facility] Comment on above: Performed By: #### C D #### Performed at [facility], [address] [place] [address] Comprehensive Metabolic Pane mehran 02-18-2019 Albumin [Mass/Vol] 4.7 g/dL Normal 3.4-5.2 [facility] ALP [Catalytic activity/Vol] 47 U/L Low 50-136 [facility] ALT [Catalytic activity/Vol] 32 U/L Normal <40 [facility] AST [Catalytic activity/Vol] 29 U/L Normal 15-50 [facility] Bilirubin Ql (U) 0.2 mg/dL Normal 0.1-1.0 [facility] Calcium [Mass/Vol] 9.8 mg/dL Normal 8-10.5 [facility] Chloride [Moles/Vol] 104 mmol/L Normal 95-106 [facility] CO2 [Moles/Vol] 25 mmol/L Normal 24-35 [facility] Creatinine [Mass/Vol] 0.52 mg/dL Normal 0.5-1 [facility] Glucose [Mass/Vol] 135 mg/dL High 60-115 [facility] Potassium [Moles/Vol] 4.5 mmol/L Normal 3.7-5.3 [facility] Protein [Mass/Vol] 8.0 g/dL Normal 6.4-8.4 [facility] Sodium [Moles/Vol] 140 mmol/L Normal 135-145 [facility] Urea nitrogen [Mass/Vol] 15 mg/dL Normal 5-18 [facility] Valproic Acidon 02-18-2019 Valproic Acid 47.1 ug/mL Low 50.0-100.0 [facility] PAP, THIN PREP WITH IMAGINGo n 06-29-2018 PAP, THIN PREP WITH IMAGING Normal [facility] Comment on above: Result Comment: INTE RPRETATION Thin Prep Image-Guided Pap Test (Cervical/Endocervical) NEGATIVE FOR INTRAEPITHELIAL LESION /MALIGNANCY Satisfactory for evaluation (Endocervical/transformation zone component present) [facility]/06/27/2018 The Pap test is a screening [...] 05/18/18 ICD-CM DIAGNOSIS CODE(S) Z01.419 [employer] Exam (general) (routine) W/o Abn Findings * * EFFECTIVE 06/08/2018 * * CLINICAL CHEMISTRY PLATFORM CHANGES ARE ASSOCIATED WITH * * REFERENCE RANGE CHANGES FOR A NUMBER OF ANALYTES. PLEASE * * REVIEW REFERENCE INTERVALS CAREFULLY * * Pathology [employer] [address] [place] [address] CLIA No. [id number] CAP Accreditation No. [id number] Television Announcer: Johnson Garland M.D. [employer] Accession Number: [id number] Performed By: #### P L PAP W/IMAGE #### [address] [address] [address] Nucleic-Acid Probe-Endoce rvical Swabon 06-24-2018 CT Nucleic-Acid Probe-Endocervical Swab Negative Normal NEGATIVE [facility] Comment on above: Performed By: #### G C Amp Endocerv, CT Amp Endocerv #### [address] [place] [address] Age at specimen collection = Normal [facility] Comment on above: Performed By: #### G C Amp Endocerv, CT Amp Endocerv #### [facility] [address] [place] [address] Performed By: #### P L PAP W/IMAGE #### [facility] [address] [place] [address] GC Nucleic-Acid Probe-Endoce rvical Swabon 06-24-2018 GC Nucleic-Acid Probe-Endocervical Swab Negative Normal NEGATIVE [facility] Comment on above: Performed By: #### G C Amp Endocerv, CT Amp Endocerv #### [facility] [address] [place] [address] Platelet Functionon 03-24-19 19 Collagen/ADP 148 sec High 67-112 [facility] Comment on above: Performed By: #### P FA #### [address] [place] [address] Collagen/EPI 228 sec High 85-172 [facility] Comment on above: Performed By: #### P FA #### [address] [place] [address] Interpretation Abnormal platelet function. Normal [facility] Comment on above: Result Comment: Comm [...] established. Performed By: #### P FA #### [address] [place] [address] XR ANKLE RIGHT STANDARDon XR ANKLE RIGHT STANDARD Radiology exam i s complete. No Radiologist dictation. Please follow up with ordering provider. Final result Normal [facility] Vital Signs Date Time Vital Sign Value Performing Clinician Facility 07-20-2024 11:33-0400 Body mass index (BMI) [Ratio] 34.52 kg/m2 Donovan Kimmie DO Work Phone: [facility] 07-20-2024 11:33-0400 Body weight 89.81 kg Donovan Kimmie DO Work Phone: [facility] 07-20-2024 11:33-0400 Diastolic blood pressure 70 mm[Hg] Donovan Kimmie DO Work Phone: [facility] 07-20-2024 11:33-0400 Systolic blood pressure 118 mm[Hg] Donovan Kimmie DO Work Phone: [facility] 09-24-2023 10:29-0400 Body height 170.18 cm [facility] 09-24-2023 10:29-0400 Body mass index (BMI) [Ratio] 30.2 kg/m2 [facility] 09-24-2023 10:29-0400 Body weight 87.54 kg [facility] 09-24-2023 10:29-0400 Diastolic blood pressure 78 mm[Hg] [facility] 09-24-2023 10:29-0400 Heart rate 67 /min [facility] 09-24-2023 10:29-0400 SaO2% (BldA) [Mass fraction] 98 % [facility] 09-24-2023 10:29-0400 Systolic blood pressure 112 mm[Hg] [facility] 08-21-2023 14:43-0400 Body height 161.3 cm Cori Dennis V, DO Work Phone: [facility] Comment on above: verbal 08-21-2023 14:43-0400 Body mass index (BMI) [Ratio] 34.59 kg/m2 Cori Dennis V, DO Work Phone: [facility] 08-21-2023 14:43-0400 Body temperature 98.29 [degF] Cori Maturu V, DO Work Phone: [facility] 08-21-2023 14:43-0400 Body weight 89.99 kg Cori Maturu V, DO Work Phone: [facility] 08-21-2023 14:43-0400 Diastolic blood pressure 76 mm[Hg] Cori Maturu V, DO Work Phone: [facility] 08-21-2023 14:43-0400 Heart rate 88 /min Cori Maturu V, DO Work Phone: [facility] 08-21-2023 14:43-0400 Systolic blood pressure 130 mm[Hg] Cori Maturu V, DO Work Phone: [facility] 07-07-2023 14:37-0400 Body height 170.18 cm [facility] 07-07-2023 14:37-0400 Body mass index (BMI) [Ratio] 30.8 kg/m2 [facility] 07-07-2023 14:37-0400 Body weight 89.35 kg [facility] 07-07-2023 14:37-0400 Diastolic blood pressure 78 mm[Hg] [facility] 07-07-2023 14:37-0400 Heart rate 81 /min [facility] 07-07-2023 14:37-0400 SaO2% (BldA) [Mass fraction] 98 % [facility] 07-07-2023 14:37-0400 Systolic blood pressure 112 mm[Hg] [facility] 05-28-2023 14:04-0400 Body height 161.3 cm Petra Silveira APRN-ANALYSIS DIRECTOR Work Phone: [facility] 05-28-2023 14:04-0400 Body mass index (BMI) [Ratio] 34.09 kg/m2 Petra Silveira APRN-ANALYSIS DIRECTOR Work Phone: [facility] 05-28-2023 14:04-0400 Body temperature 98.01 [degF] Petra Silveira CIGARETTE SELLER-ANALYSIS DIRECTOR Work Phone: [facility] 05-28-2023 14:04-0400 Body weight 88.68 kg Petra Raoul CIGARETTE SELLER-ANALYSIS DIRECTOR Work Phone: [facility] 05-28-2023 14:04-0400 Diastolic blood pressure 74 mm[Hg] Petra Silveira CIGARETTE SELLER-ANALYSIS DIRECTOR Work Phone: [facility] 05-28-2023 14:04-0400 Heart rate 92 /min Petra Raoul CIGARETTE SELLER-ANALYSIS DIRECTOR Work Phone: [facility] 05-28-2023 14:04-0400 Systolic blood pressure 122 mm[Hg] Petra Silveira CIGARETTE SELLER-ANALYSIS DIRECTOR Work Phone: [facility] 04-22-2023 13:04-0500 Body mass index (BMI) [...] [facility] 02-14-2023 15:48-0500 Body height 161.3 cm Petra Silveira CIGARETTE SELLER-ANALYSIS DIRECTOR Work Phone: [facility] Comment on above: verbal 02-14-2023 15:48-0500 Body mass index (BMI) [Ratio] 34.82 kg/m2 Petra Silveira CIGARETTE SELLER-ANALYSIS DIRECTOR Work Phone: [facility] 02-14-2023 15:48-0500 Body temperature 97.9 [degF] Petra Silveira CIGARETTE SELLER-ANALYSIS DIRECTOR Work Phone: [facility] 02-14-2023 15:48-0500 Body weight 90.58 kg Petra Silveira CIGARETTE SELLER-ANALYSIS DIRECTOR Work Phone: [facility] 02-14-2023 15:48-0500 Diastolic blood pressure 79 mm[Hg] Petra Raoul CIGARETTE SELLER-ANALYSIS DIRECTOR Work Phone: [facility] 02-14-2023 15:48-0500 Heart rate 107 /min Petra Raoul CIGARETTE SELLER-ANALYSIS DIRECTOR Work Phone: [facility] 02-14-2023 15:48-0500 Systolic blood pressure 133 mm[Hg] Petra Silveira CIGARETTE SELLER-ANALYSIS DIRECTOR Work Phone: [facility] 01-15-2023 13:50-0500 Body temperature 97.5 [degF] Andi Smith MD Work Phone: [facility] 01-15-2023 13:50-0500 Diastolic blood pressure 79 mm[Hg] Andi Smith MD Work Phone: [facility] 01-15-2023 13:50-0500 Heart rate 78 /min Andi Smith MD Work Phone: [facility] 01-15-2023 13:50-0500 Respiratory rate 16 /min Andi Smith MD Work Phone: [facility] 01-15-2023 13:50-0500 SaO2% (BldA) [Mass fraction] 98 % Andi Smith MD Work Phone: [facility] 01-15-2023 13:50-0500 Systolic blood pressure 117 mm[Hg] Andi Smith MD Work Phone: [facility] 01-15-2023 07:50-0500 Body height 161.3 cm Andi Smith MD Work Phone: [facility] 01-15-2023 07:50-0500 Body mass index (BMI) [Ratio] 34.37 kg/m2 Andi Smith MD Work Phone: [facility] 01-15-2023 07:50-0500 Body weight 89.4 kg Andi Smith MD Work Phone: [facility] 01-09-2023 08:39-0400 Body height 161.3 cm Esau Gage PAC Work Phone: [facility] 01-09-2023 08:39-0400 Body mass index (BMI) [Ratio] 33.65 kg/m2 Esau Gage PAC Work Phone: 4(712)[phone] [address] 01-09-2023 08:39-0400 Body temperature 98.49 [degF] Esau Gage PAC Work Phone: 4(970)685-952296 [address] 01-09-2023 08:39-0400 Body weight 87.54 kg Esau Gage PAC Work Phone: [facility] 01-09-2023 08:39-0400 Diastolic blood pressure 80 mm[Hg] Esau Gage PAC Work Phone: 4(323)067-546396 [address] 01-09-2023 08:39-0400 Heart rate 81 /min Esau Gage PAC Work Phone: [facility] 01-09-2023 08:39-0400 Respiratory rate 18 /min Esau Gage PAC Work Phone: 7(420)[phone] [place] [address] 01-09-2023 08:39-0400 SaO2% (BldA) [Mass fraction] 98 % Esau Gage PAC Work Phone: 6(874)[phone] [place] [address] 01-09-2023 08:39-0400 Systolic blood pressure 134 mm[Hg] Esau Gage PAC Work Phone: 5(300)890-453396 [address] 12-10-2022 10:53-0400 Body height 160 cm Andi Smith MD Work Phone: [facility] 12-10-2022 10:53-0400 Body mass index (BMI) [Ratio] 34.19 kg/m2 Andi Smith MD Work Phone: [facility] 12-10-2022 10:53-0400 Body weight 87.54 kg Andi Smith MD Work Phone: [facility] 12-10-2022 10:53-0400 Diastolic blood pressure 63 mm[Hg] Andi Smith MD Work Phone: [facility] 12-10-2022 10:53-0400 Heart rate 65 /min Andi Smith MD Work Phone: [facility] 12-10-2022 10:53-0400 Systolic blood pressure 125 mm[Hg] Andi Smith MD Work Phone: [facility] 11-08-2022 16:21-0400 Body height 160 cm Crystal Raoul CIGARETTE SELLER-ANALYSIS DIRECTOR Work Phone: [facility] Comment on above: verbal 11-08-2022 16:21-0400 Body mass index (BMI) [Ratio] 34.26 kg/m2 Crystal Raoul CIGARETTE SELLER-ANALYSIS DIRECTOR Work Phone: [facility] 11-08-2022 16:21-0400 Body temperature 99.1 [degF] Crystal Raoul CIGARETTE SELLER-ANALYSIS DIRECTOR Work Phone: [facility] 11-08-2022 16:21-0400 Body weight 87.73 kg Crystal Raoul CIGARETTE SELLER-ANALYSIS DIRECTOR Work Phone: [facility] 11-08-2022 16:21-0400 Diastolic blood pressure 71 mm[Hg] Crystal Raoul CIGARETTE SELLER-ANALYSIS DIRECTOR Work Phone: [facility] 11-08-2022 16:21-0400 Heart rate 97 /min Crystal Raoul CIGARETTE SELLER-ANALYSIS DIRECTOR Work Phone: [facility] 11-08-2022 16:21-0400 Systolic blood pressure 116 mm[Hg] Petra Silveira CIGARETTE SELLER-ANALYSIS DIRECTOR Work Phone: [facility] 07-04-2021 09:38-0400 Body height 161.3 cm Petra Silveira CIGARETTE SELLER-ANALYSIS DIRECTOR Work Phone: [facility] Comment on above: verbal 07-04-2021 09:38-0400 Body mass index (BMI) [Ratio] 36.23 kg/m2 Petra Silveira CIGARETTE SELLER-ANALYSIS DIRECTOR Work Phone: [facility] 07-04-2021 09:38-0400 Body temperature 98.71 [degF] Petra Silveira CIGARETTE SELLER-ANALYSIS DIRECTOR Work Phone: [facility] 07-04-2021 09:38-0400 Body weight 94.26 kg Petra Silveira CIGARETTE SELLER-ANALYSIS DIRECTOR Work Phone: [facility] 07-04-2021 09:38-0400 Diastolic blood pressure 70 mm[Hg] Petra Silveira CIGARETTE SELLER-ANALYSIS DIRECTOR Work Phone: [facility] 07-04-2021 09:38-0400 Heart rate 73 /min Petra Silveira CIGARETTE SELLER-ANALYSIS DIRECTOR Work Phone: [facility] 07-04-2021 09:38-0400 Systolic blood pressure 119 mm[Hg] Petra Silveira CIGARETTE SELLER-ANALYSIS DIRECTOR Work Phone: [facility] Encounters Encounter Date Encounter Type Care Provider Facility Start: 10-01-2024 End: 10-01-2024 Telephone encounter Kit Caicedo MD Work Phone: [facility] Comment on above: L[facility] Start: 10-01-2024 End: 10-01-2024 Office outpatient visit 15 minutes Kit Caicedo MD Work Phone: [facility] Comment on above: General counseling a nd advice for procreative management (Primary Dx); Polycystic ovarian syndrome Start: 10-01-2024 End: 10-01-2024 ambulatory KIT CAICEDO Facility:[facility] Start: 09-20-2024 End: 09-20-2024 E-mail encounter from caregiver [facility] Start: 09-20-2024 End: 09-20-2024 Patient encounter procedure [facility] Comment on above: [facility] Welcome Letter Start: 09-04-2024 End: 09-05-2024 Clinisync Result Encounter Donovan Kimmie DO Work Phone: [facility] External Department Unsolicited Start: 09-04-2024 End: 09-05-2024 Clinisync Result Encounter Donovan Kimmie DO Work [...] Departed Referred Donovan Kimmie DO Work Phone: [facility] Start: 06-28-2024 Non-patient / Non-visit Donovan Kimmie DO Work Phone: [facility] Work Phone: Start: 06-28-2024 End: 06-30-2024 Clinisync Result Encounter Donovan Kimmie DO Work Phone: [facility] External Department Unsolicited Start: 06-28-2024 End: 06-30-2024 Clinisync Result Encounter Donovan Kimmie DO Work Phone: [facility] External Department Unsolicited Start: 06-07-2024 ambulatory [facility] Facility: [facility] Start: 05-26-2024 Non-patient / Non-visit Donovan Kimmie DO Work Phone: [facility] Work Phone: Start: 05-26-2024 [...] Unsolicited Start: 10-20-2023 End: 10-20-2023 ambulatory DONOVAN JONESZIO Not Available Start: 10-15-2023 End: 10-15-2023 ambulatory MADONNA Duy PARSONS Not Available Start: 09-24-2023 End: 09-24-2023 ambulatory [facility] Work Phone: Start: 09-24-2023 End: 09-24-2023 Patient encounter procedure [facility] Work Phone: Start: 09-11-2023 Non-patient / Non-visit [facility] Work Phone: Start: 08-21-2023 End: 08-21-2023 Office outpatient visit 25 minutes Cori Dennis DO Work Phone: [facility] 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); Anxiety disorder, unspecified type Start: 08-21-2023 ambulatory BELLINGHAM HAYLIE Facility: [facility] Start: 08-08-2023 Non-patient / Non-visit [facility] Work Phone: Start: 07-09-2023 Non-patient / Non-visit [facility] Work Phone: Start: 07-07-2023 End: 07-07-2023 ambulatory [facility] Work Phone: Start: 07-07-2023 End: 07-07-2023 Patient encounter procedure [facility] Work Phone: Start: 06-27-2023 Non-patient / Non-visit [facility] Work Phone: Start: 06-08-2023 Non-patient / Non-visit [facility] Work Phone: Start: 05-28-2023 End: 05-28-2023 Office outpatient visit 25 minutes Petra Silveira CIGARETTE SELLER-ANALYSIS DIRECTOR Work Phone: Neurology Outpatient [facility] 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); Anxiety disorder, unspecified type Start: 05-09-2023 Non-patient / Non-visit [facility] Work Phone: Start: 04-22-2023 End: 04-22-2023 ambulatory DONOVAN KIMMIE Not Available Start: 04-22-2023 End: 04-22-2023 Office outpatient visit 15 minutes Donovan Kimmie DO Work Phone: [facility] Comment on above: Encounter for fertil ity planning Start: 02-14-2023 End: 02-14-2023 Office outpatient visit 25 minutes Petra Silveira CIGARETTE SELLER-ANALYSIS DIRECTOR Work Phone: Neurology Outpatient [facility] 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); 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 Start: 01-15-2023 End: 01-15-2023 Subsequent hospital visit by physician Andi Smith MD Work Phone: [facility] 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 Start: 01-09-2023 End: 01-09-2023 Office consultation new/estab patient 60 min Esau Gage PAC Work Phone: Pre-Procedure Evaluation and Assessment [facility] Comment on above: Preop exam for inter nal medicine (Primary Dx); Jeavons syndrome; 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 Start: 01-09-2023 End: 01-09-2023 Patient encounter status Esau Ayad Too PAC Work Phone: [facility] Start: 01-09-2023 End: 01-09-2023 Subsequent hospital visit by physician Andi Smith MD Work Phone: Imaging [facility] Comment on above: Arrived Start: 12-10-2022 End: 12-10-2022 Office outpatient new 45 minutes Andi Smith MD Work Phone: [facility] 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) Start: 11-08-2022 End: 11-08-2022 Office outpatient visit 40 minutes Petra Silveira CIGARETTE SELLER-ANALYSIS DIRECTOR Work Phone: Neurology [facility] Comment on above: [...] Office outpatient visit 25 minutes Petra Silveira CIGARETTE SELLER-ANALYSIS DIRECTOR Work Phone: Neurology [facility] Comment on above: Generalized nonconvu lsive epilepsy (Primary Dx) Start: 06-24-2018 Encounter for gynecological examination (general) (routine) without abnormal findings NA NONE PER PATIENT [facility] Start: 06-24-2018 End: 06-24-2018 Patient encounter procedure GERARDO WARD Facility:[facility] Start: 05-25-2018 End: 05-25-2018 Patient encounter procedure . NONE PER PATIENT Facility:[facility] Start: 05-13-2018 End: 05-13-2018 Patient encounter procedure . NONE PER PATIENT Facility:[facility] Start: 03-23-2018 End: 03-24-2018 Patient encounter procedure [facility] Start: 03-20-2018 End: 03-21-2018 Patient encounter procedure [facility] Procedures Date Procedure Procedure Detail Performing Clinician Start: 09-04-2024 ALL PROGESTERONE Donovan Kimmie DO Work Phone: Start: 08-01-2024 ALL PROGESTERONE Donovan Kimmie DO [...] By: #### C D #### Performed at [facility], [address] [place] [address] Start: 03-23-2018 PLATELET FUNCTION TEST JAMIL SMITH Plan of Treatment Date Care Activity Detail Author Start: 11-08-2024 Influenza vaccination Influenza Vaccine (#1) Jluis melchor Start: 10-28-2024 End: 10-28-2024 Patient encounter procedure 10/28/2024 9:00 AM EDT Office Visit [facility] [address] [place] [address] Donovan Burks, [address] [place] [address] [facility] Start: 10-01-2024 End: 10-01-2024 Patient encounter procedure 10/01/2024 10:00 AM EDT Office Visit [facility] [address] [place] [address] Kit Caicedo MD [address] [place] [address] Donovan Burks's office referring the patient to be seen in [facility] for female infertility, PCOS, fertility planning. Referral and/or order can be found in Scanned Docs 07/22/24.. [facility] Comment on above: Donovan Burks's office referring the patie nt to be seen in [facility]ertility specialist[facility] for female infertility, PCOS, fertility planning. Referral and/or order can be found in Scanned Docs 07/22/24.. Start: 07-20-2024 End: 07-20-2024 Patient encounter procedure 07/20/2024 11:10 AM EDT Office Visit [facility] [address] [address] Donovan Burks, [address] [place] [address] [facility] Start: 07-20-2024 [facility] Start: 01-22-2024 End: 01-22-2024 Patient encounter procedure 01/22/2024 9:15 AM EST Office Visit Neurology [facility] [address] [place] [phone] Cori Dia DO [address] [place] [address] Neurology [facility] Start: 11-28-2023 End: 11-28-2023 Patient encounter procedure 11/28/2023 10:20 AM EDT Office Visit [facility]rology Outpatient Care [address] [place] [address] Petra Silveira, CIGARETTE SELLER-ANALYSIS DIRECTOR [address] [place] [phone] [facility] [place] Start: 11-09-2023 COVID-19 VACCINE ( season) COVID-19 VACCINE ( season) [facility] Start: 11-09-2023 Covid-19 Vaccine ( season) Covid-19 Vaccine ( season) [facility] Start: 11-09-2023 Influenza vaccination [facility] Start: 08-21-2023 End: 08-21-2023 Patient encounter procedure 08/21/2023 2:45 PM EDT Office Visit Neurology [facility] [address] [place] [phone] Cori Dia DO [address] [place] [address] Neurology [facility] Start: 05-28-2023 End: 05-28-2023 Patient encounter procedure 05/28/2023 2:00 PM EDT Office Visit Neurology [facility] [address] [facility] [address] [place] [phone] Petra Silveira, CIGARETTE SELLER-ANALYSIS DIRECTOR [address] [place] [phone] Neurology [facility] Start: 02-14-2023 End: 02-14-2023 Patient encounter procedure Neurology [facility] Start: 01-15-2023 End: 01-15-2023 Admission to same day surgery center 01/15/2023 9:40 AM EST - 01/15/2023 11:50 AM EST Surgery [facility] [address] [place] [phone] Andi Smith MD [address] [place] [phone] INSERTION REPLACEMENT NEUROSTIMULATOR GENERATOR CRANIAL/INTRACRANIAL [facility] Comment on above: INSERTION REPLACEMENT NEUROSTIMULATOR GE NERATOR CRANIAL/INTRACRANIAL Start: 01-15-2023 End: 01-15-2023 Insj/rplcmt cranial neurostim pulse generator INSERTION REPLACEMENT NEUROSTIMULATOR GENERATOR CRANIAL/INTRACRANIAL Jeavons syndrome 01/15/2023 9:40 AM EST [facility] Start: 01-15-2023 Subsequent hospital visit by physician 01/15/2023 9:40 AM EST Hospital Encounter [facility] [address] [place] [address] Andi Smith MD [address] [place] [address] Jeavons syndrome [facility] 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 Start: 12-10-2022 End: 12-11-2023 Radiographic imaging procedure XR STIMULATOR/INTRATHECAL PUMP Imaging Routine Jeavons syndrome Expected: 12/10/2022, Expires: 12/11/2023 [facility] Comment on above: Expected: 12/10/2022, Expires: Start: 12-10-2022 End: 12-10-2022 Patient encounter procedure 12/10/2022 11:30 AM EDT Office Visit [facility] [address] [place] [address] [place] [phone] Andi Smith MD [address] [place] [phone] [facility] Start: 11-08-2022 COVID-19 VACCINE ( season) COVID-19 VACCINE ( season) [facility] Start: 11-08-2022 Influenza vaccination INFLUENZA VACCINE (#1) [facility] Start: 01-04-2022 End: 01-04-2022 Patient encounter procedure 01/04/2022 Office Visit Neurology Cori Dia DO [address] [place] [address] [facility]rology [facility] Start: 11-08-2021 Influenza vaccination INFLUENZA VACCINE (Season Ended) [facility] Start: 10-10-2021 End: 10-10-2021 Telemedicine consultation with patient 10/10/2021 Telemedicine Neurology Petra Silveira, CIGARETTE SELLER-ANALYSIS DIRECTOR [address] [place] [phone] Neurology [facility] Start: 08-15-2021 End: 08-15-2021 Telemedicine consultation with patient 08/15/2021 Telemedicine Neurology Petra Silveira, CIGARETTE SELLER-ANALYSIS DIRECTOR [address] [place] [address] Neurology [facility] Start: 2013 Screening for malignant neoplasm of cervix [facility] Start: 07-15-2011 Hepatitis B vaccination HEP B VACCINE (1 of 3 - 19+ 3-dose series) [facility] Start: 07-15-2011 Hepatitis B Vaccine (1 of 3 - 19+ 3-dose series) Hepatitis B Vaccine (1 of 3 - 19+ 3-dose series) [facility] Start: 07-15-2011 Third diphtheria, tetanus and acellular pertussis (DTaP) vaccination TDAP (ADULT) [facility] Start: 07-15-2011 Urine microalbumin profile DTaP,Tdap,Td Vaccine (1 - Tdap) [facility] Start: 2010 Anxiety Screening Anxiety Screening [facility] Start: 2010 Depression Screening Depression Screening [facility] Start: 2010 Hepatitis C screening Hepatitis C Screening [facility] Start: 2010 HIV screening HIV Screening [facility] Start: 2010 Tetanus vaccination TETANUS [facility] Start: 07-15-2007 HIV screening HIV SCREENING DISCUSSION [facility] Start: 1997 COVID-19 VACCINE (1) COVID-19 VACCINE (1) [facility] Start: 01-14-1993 COVID-19 VACCINE (#1) COVID-19 VACCINE (#1) [facility] Start: 1992 Hepatitis B vaccination HEP B VACCINE (1 of 3 - 3-dose series) [facility] Start: 1992 Hepatitis C antibody, confirmatory test HEPATITIS C VIRUS SCREENING [facility] Start: 1992 Hepatitis C screening HEPATITIS C VIRUS SCREENING [facility] Start: 1992 Tetanus vaccination TETANUS [facility] Ecg routine ecg w/le ast 12 lds w/i&r NJ ELECTROCARDIOGRAM, COMPLETE NJ - OFFICE PERFORMED Routine 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 Ordered: 01/09/2023 [facility] Comment on above: Ordered: 01/09/2023 Elec horace implt npgt phys/qhp w/o programming NJ ELEC HORACE IMPLT NPGT PHYS/QHP W/O PROGRAMMING NJ Charge Routine Jeavons syndrome Ordered: 09/09/2023 [facility] Comment on above: Ordered: 09/09/2023 Elec horace implt smpl cn npgt prgrmg NJ ELEC HORACE IMPLT SMPL CN NPGT PRGRMG NJ Charge Routine Jeavons syndrome Ordered: 11/14/2022 [facility] Comment on above: Ordered: 11/14/2022 Elec horace implt smpl cn npgt prgrmg NJ ELEC HORACE IMPLT SMPL CN NPGT PRGRMG NJ Charge Routine 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 Ordered: 03/12/2023 [facility] Comment on above: Ordered: 03/12/2023 Elec horace implt smpl cn npgt prgrmg NJ ELEC HORACE IMPLT SMPL CN NPGT PRGRMG NJ Charge Routine Jeavons syndrome Ordered: 06/21/2023 [facility] Comment on above: Ordered: 06/21/2023 Insj/rplcmt cranial neurostim pulse generator INSERTION REPLACEMENT NEUROSTIMULATOR GENERATOR CRANIAL/INTRACRANIAL Jeavons syndrome [facility] Noninvasive ear/puls e oximetry single deter NJ NONINVASV OXYGEN SATUR; SINGLE NJ - OFFICE PERFORMED Routine 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 Ordered: 01/09/2023 [facility] Comment on above: Ordered: 01/09/2023 Immunizations Immunization Date Immunization Notes Care Provider [facility] 01-04-2014 influenza, seasonal, injectable, preservative free Andi Smith MD Work Phone: [facility] 01-04-2014 influenza virus vaccine, unspecified formulation Petra Silveira CIGARETTE SELLER-ANALYSIS DIRECTOR Work Phone: [facility] Payers Date Payer Category Payer Unknown [id number] 2021 Medicaid [id number] 2021 Private Health Insurance [facility] MEDICAID Member Subscriber Plan / Payer (Effective 2021-Present) Name: Rowena Guadalupe Relation to Subscriber: Self Name: Rowena Guadalupe Payer ID: Not on file Group ID: [id number] Type: Not on file Address: [place] [id number] 2016 Unknown [id number] 2016 Self-pay 2014 Unknown [id number] 1992 Unknown [id number] 2..840.1.441734.3.579.2. 173 1992 Unknown [id number] 2..840.1.726198.3.579.2. 173 1992 Unknown [id number] 2.840.1.415874.3.579.2. 75 1992 Unknown [id number] 2.16.840.1.294168.3.579.2. 75 1992 Unknown [id number] 2.16.840.1.380891.3.579.2. 75 1992 Unknown [id number] 2.16.840.1.006101.3.579.2. 75 1992 Unknown [id number] 2.16.840.1.490457.3.579.2. 593 1992 Unknown [id number] 2.16.840.1.908545.3.579.2. 593 1992 Unknown [id number] 2.16.840.1.492711.3.579.2. 593 1992 Unknown [id number] 2.16.840.1.606698.3.579.2. 593 1992 Unknown [id number] 2.16.840.1.020772.3.579.2. 593 1992 Unknown [id number] 2.16.840.1.119837.3.579.2. 1259 1992 Unknown [id number] 2.16.840.1.347055.3.579.2. 594 1992 Unknown [id number] 2.16.840.1.122171.3.579.2. 594 1992 Unknown [id number] 2.16.840.1.835829.3.579.2. 1259 1992 Unknown [id number] 2.16.840.1.740259.3.579.2. 9 1992 Unknown [id number] 2.16.840.1.901546.3.579.2. 1259 1959 Unknown [id number] 1959 Unknown [id number] Unknown [id number] 2.16.840.1.124761.3.579.2. 531 Social History Date Type Detail Facility Start: 10-28-2019 End: 09-11-2022 Tobacco smoking status NHIS Never smoked tobacco [facility] Start: 10-28-2019 End: 09-11-2022 Tobacco use and exposure Smokeless tobacco non-user [facility] Start: 10-28-2019 Alcohol intake Current drinker of alcohol (finding) [facility] Start: 10-28-2019 History SDOH Alcohol Frequency 2 [facility] Start: 10-28-2019 History SDOH Alcohol Comment rare wine [facility] Start: 10-28-2019 Education 17 [facility] Start: 1992 Sex Assigned At Not on file [facility] Start: 11-08-2022 End: 09-09-2023 Alcohol intake Ex-drinker (finding) [facility] Start: 10-28-2019 End: 10-01-2024 History of Social function [facility] Start: 10-28-2019 End: 10-01-2024 Alcohol Use Disorder Identification Test - Consumption [AUDIT-C] [facility] How often to you hav e a drink containing alcohol? Monthly or less [facility] Average Number of Drinks Not on file [facility] Start: 10-29-2019 Gender identity Identifies as female gender (finding) [facility] Start: 10-29-2019 Sexual orientation Heterosexual (finding) [facility] Start: 02-14-2023 Tobacco Comment Never [facility] Start: 02-14-2023 Alcohol Comment At most one or two drinks a month. [facility] Start: 04-22-2023 End: 07-20-2024 Alcohol intake Not Asked [facility] Start: 08-07-2022 Alcohol Comment Occasional alcohol use [facility] Start: 1990 Sex Assigned At Female [facility] Start: 07-22-2024 Sex Female (finding) [facility] Tobacco smoking stat [facility] Tobacco smoking consumption unknown [facility] Medical Equipment Procedure Code Equipment Code Equipment Origin al Text Equipment Identifier Dates [facility] [id number] Start: 01-15-2023 Clinical Notes 07-04-2021 to 10-01-2024 Kit Caicedo MD - 10/01/2024 11:27 AM Kit Dallas MD - 10/01/2024 11:27 AM EDTREI Plan Note - Kit Caicedo MD - 10/01/2024 11:26 AM EDT Note Date & Type Note Facility 10-01-2024 Progress note Formatting of t his note is different from the original. [facility] Date: 10/01/2024 Rowena Drake is a 34 year old female presenting with the following history: HISTORY OF PRESENT ILLNESS: Rowena Drake is a 34 year old female with The patient is a 34-year-old female with a history of PCOS, accompanied by her , presenting for evaluation of infertility. The patient has been attempting to conceive since 2021 and has been under the care of her OBGYN since early 2023 for PCOS and infertility management. She reports an episode in February 2022 where she went nearly 90 days without menstruation, prompting her to seek medical evaluation. Initial lab work revealed a progesterone level of 0.02, leading to a course of progesterone, which successfully induced menstruation. Since then, her menstrual cycles have been regular, occurring every 32-36 days. She was initially prescribed letrozole (Femara) for ovulation induction but experienced adverse effects and subsequently took a two-month break from medication last summer. Since late summer of the previous year, she has been on Clomid, with lab work reportedly showing favorable results. Her , a 39-year-old male, has a history of type 1 diabetes mellitus since age 25, which is well-managed with an HbA1c consistently around 6. He has attempted semen analysis twice, but both attempts were unsuccessful due to insufficient volume for testing. He describes his ejaculate volume as variable, sometimes normal and sometimes low. Labs: (2022) AMH: 5.7 (February 2022) Serum progesterone: 0.02 or 0.4 - Thyroid function tests: normal - Diabetes screening: negative Imaging: - Pelvic ultrasound: Multiple follicles on the ovaries, no other abnormalities - X-ray test to check tubes: Normal Tests: - Semen analysis (attempted twice): Insufficient volume for processing Obstetric History T0 L0 SAB0 IAB0 Ectopic0 Multiple0 Live Births0 Fertility Evaluations and Treatments: Eval Checklist Results Date Comments HSG Hysteroscopy Laparoscopy [facility] SIS Semen Analysis Ultrasound Other (See comments) MENSTRUAL HISTORY: Menarche Age: Length of Cycle: Days: Menstrual Flow: Menstrual Symptoms: No LMP recorded. 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) PCOS (polycystic ovarian syndrome) 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 2011 PAST SURGICAL HISTORY Procedure Laterality Date ANKLE SURGERY HX Right 08/21/2016 external fixator removal EXTRACTION ERUPTED TOOTH/EXR wisdom teeth extraction REPAIR OF ANKLE FRACTURE Right 07/18/2016 losed reduction ankle external fixator application FAMILY HISTORY Problem Relation Age of Onset Hypertension Mother No Known Problems Father Arthritis Maternal Grandmother Mental illness Maternal Grandmother Depression, Anxiety Osteoporosis Maternal Grandmother Prostate Cancer Maternal Grandfather Heart Attack Paternal Grandfather Diabetes Paternal Grandfather Prostate Cancer Paternal Grandfather GUMARO Intake Questionnaire Reason for visit: Infertility evaluation, Sperm insemination, Polycystic ovary syndrome (PCOS) Partner with whom fertility is desired: Yes Same sex relationship: No Menstrual cycle pattern: Regular periods (25-34 days in length), Spotting before periods Cycle length (days): 32-34 Days of bleedin-5 OPK use: Yes, able to detect Dysmenorrhea: Always Dyspareunia: No STI history: Genital warts/HPV Last Pap Smear Date: 10/20/23 Last pap outcome: Normal History of abnormal PAP: No, all prior PAP smears have been normal Procedure for abnormal pap smear: None History of abnormal mammogram: Never done Prior chemotherapy or radiation: No Number of caffeinated beverages daily: 1-2 Number of cigarettes smoked daily: None Second hand smoke exposure: No Marijuana use: No Number of alcoholic beverages / week: None Hours of moderate exercise / week: None Ever been : No Pain with intercourse: No Lubricants with intercourse: No Eggs, sperm, or embryos frozen: No Partner Information * If Partner is female, check box for associated questions.: No Partner's Name: Pedro Drake Partner's : Partner's MRN: no mrn Partner's Ethnicity: Partner's Race: MEDICATIONS: No current outpatient medications on file prior to visit. No current facility-administered medications on file prior to visit. ALLERGIES: Patient has no allergy information on record. Blood Type: No results found for this basename: aborhd No results found for this basename: rubqnt,vzvg Assessment and Plan Rowena Drake is a 34 year old female with PCOS and possible male factor infertility. 1. Polycystic ovarian syndrome (E28.2) Diagnosed with PCOS, currently managed with Clomid. Previous treatment with Letrozole was not well-tolerated. Regular menstrual cycles achieved with progesterone therapy. Hysterosalpingography showed patent fallopian tubes. Pelvic ultrasound revealed multiple ovarian cysts, consistent with PCOS. AMH level was 5.7 ng/mL in 2022. No comorbidities such as thyroid dysfunction or diabetes mellitus identified. Continue current Clomid therapy. Monitor menstrual regularity and ovulatory function. Follow-up after completion of male infertility evaluation. 2. General counseling and advice for procreative management (Z31.69) Extensive evaluation and treatment for infertility conducted over the past two years. has type 1 diabetes mellitus, well-controlled with an A1c around 6%. Incomplete semen analysis due to insufficient sample volume. Potential issue of retrograde ejaculation considered. - Referred to [facility] urologists specializing in male infertility: Dr. Bull, Dr. Yu, or Dr. Arita. - Discussed use of special condom for semen collection available at [facility]. - Advised scheduling a follow-up appointment after urological evaluation to discuss further reproductive management options, including IUI or IVF if necessary. This visit was conducted as a virtual visit via zoom. I have communicated my name and active licensure. The patient's identity and physical location were verified at the time of this visit. Either the patient or their legal apprenticeship training representative has been informed of the risks and benefits of -- and alternatives to -- treatment through a remote evaluation and consents to proceed with the evaluation remotely. I spent a total of 20 minutes on the date of the service which included preparing to see the patient, [id number] patient care, completing clinical documentation, counseling and educating the patient/family/caregiver, ordering medications, tests, or procedures, communicating results to the patient/family/caregiver, and care coordination (not separately reported). The patient consented to the use of [place] [employer] Assist software for draft documentation of the visit consistent with [facility] s Notice of Privacy Practices. Wilda Yanez MD [facility] 10-01-2024 Consult note Formatting of th is note is different from the original. [facility] Date: 10/01/2024 Rowena Drake is a 34 year old female presenting with the following history: HISTORY OF PRESENT ILLNESS: Rowena Drake is a 34 year old female with The patient is a 34-year-old female with a history of PCOS, accompanied by her , presenting for evaluation of infertility. The patient has been attempting to conceive since 2021 and has been under the care of her OBGYN since early 2023 for PCOS and infertility management. She reports an episode in February 2022 where she went nearly 90 days without menstruation, prompting her to seek medical evaluation. Initial lab work revealed a progesterone level of 0.02, leading to a course of progesterone, which successfully induced menstruation. Since then, her menstrual cycles have been regular, occurring every 32-36 days. She was initially prescribed letrozole (Femara) for ovulation induction but experienced adverse effects and subsequently took a two-month break from medication last summer. Since late summer of the previous year, she has been on Clomid, with lab work reportedly showing favorable results. Her , a 39-year-old male, has a history of type 1 diabetes mellitus since age 25, which is well-managed with an HbA1c consistently around 6. He has attempted semen analysis twice, but both attempts were unsuccessful due to insufficient volume for testing. He describes his ejaculate volume as variable, sometimes normal and sometimes low. Labs: (2022) AMH: 5.7 (February 2022) Serum progesterone: 0.02 or 0.4 - Thyroid function tests: normal - Diabetes screening: negative Imaging: - Pelvic ultrasound: Multiple follicles on the ovaries, no other abnormalities - X-ray test to check tubes: Normal Tests: - Semen analysis (attempted twice): Insufficient volume for processing Obstetric History T0 L0 SAB0 IAB0 Ectopic0 Multiple0 Live Births0 Fertility Evaluations and Treatments: Eval Checklist Results Date Comments HSG Hysteroscopy Laparoscopy [facility] SIS Semen Analysis Ultrasound Other (See comments) MENSTRUAL HISTORY: Menarche Age: Length of Cycle: Days: Menstrual Flow: Menstrual Symptoms: No LMP recorded. 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) PCOS (polycystic ovarian syndrome) 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 2011 PAST SURGICAL HISTORY Procedure Laterality Date ANKLE SURGERY HX Right 08/21/2016 external fixator removal EXTRACTION ERUPTED TOOTH/EXR wisdom teeth extraction REPAIR OF ANKLE FRACTURE Right 07/18/2016 losed reduction ankle external fixator application FAMILY HISTORY Problem Relation Age of Onset Hypertension Mother No Known Problems Father Arthritis Maternal Grandmother Mental illness Maternal Grandmother Depression, Anxiety Osteoporosis Maternal Grandmother Prostate Cancer Maternal Grandfather Heart Attack Paternal Grandfather Diabetes Paternal Grandfather Prostate Cancer Paternal Grandfather GUMARO Intake Questionnaire Reason for visit: Infertility evaluation, Sperm insemination, Polycystic ovary syndrome (PCOS) Partner with whom fertility is desired: Yes Same sex relationship: No Menstrual cycle pattern: Regular periods (25-34 days in length), Spotting before periods Cycle length (days): 32-34 Days of bleedin-5 OPK use: Yes, able to detect Dysmenorrhea: Always Dyspareunia: No STI history: Genital warts/HPV Last Pap Smear Date: 10/20/23 Last pap outcome: Normal History of abnormal PAP: No, all prior PAP smears have been normal Procedure for abnormal pap smear: None History of abnormal mammogram: Never done Prior chemotherapy or radiation: No Number of caffeinated beverages daily: 1-2 Number of cigarettes smoked daily: None Second hand smoke exposure: No Marijuana use: No Number of alcoholic beverages / week: None Hours of moderate exercise / week: None Ever been : No Pain with intercourse: No Lubricants with intercourse: No Eggs, sperm, or embryos frozen: No Partner Information * If Partner is female, check box for associated questions.: No Partner's Name: Pedro Drake Partner's : Partner's MRN: no mrn Partner's Ethnicity: Partner's Race: MEDICATIONS: No current outpatient medications on file prior to visit. No current facility-administered medications on file prior to visit. ALLERGIES: Patient has no allergy information on record. Blood Type: No results found for this basename: aborhd No results found for this basename: rubqnt,vzvg Assessment and Plan Rowena Drake is a 34 year old female with PCOS and possible male factor infertility. 1. Polycystic ovarian syndrome (E28.2) Diagnosed with PCOS, currently managed with Clomid. Previous treatment with Letrozole was not well-tolerated. Regular menstrual cycles achieved with progesterone therapy. Hysterosalpingography showed patent fallopian tubes. Pelvic ultrasound revealed multiple ovarian cysts, consistent with PCOS. AMH level was 5.7 ng/mL in 2022. No comorbidities such as thyroid dysfunction or diabetes mellitus identified. Continue current Clomid therapy. Monitor menstrual regularity and ovulatory function. Follow-up after completion of male infertility evaluation. 2. General counseling and advice for procreative management (Z31.69) Extensive evaluation and treatment for infertility conducted over the past two years. has type 1 diabetes mellitus, well-controlled with an A1c around 6%. Incomplete semen analysis due to insufficient sample volume. Potential issue of retrograde ejaculation considered. - Referred to [facility] urologists specializing in male infertility: Dr. Bull, Dr. Yu, or Dr. Arita. - Discussed use of special condom for semen collection available at [facility]. - Advised scheduling a follow-up appointment after urological evaluation to discuss further reproductive management options, including IUI or IVF if necessary. This visit was conducted as a virtual visit via zoom. I have communicated my name and active licensure. The patient's identity and physical location were verified at the time of this visit. Either the patient or their legal apprenticeship training representative has been informed of the risks and benefits of -- and alternatives to -- treatment through a remote evaluation and consents to proceed with the evaluation remotely. I spent a total of 20 minutes on the date of the service which included preparing to see the patient, [id number] patient care, completing clinical documentation, counseling and educating the patient/family/caregiver, ordering medications, tests, or procedures, communicating results to the patient/family/caregiver, and care coordination (not separately reported). The patient consented to the use of [place] [employer] Assist software for draft documentation of the visit consistent with [facility] s Notice of Privacy Practices. Wilda Yanez MD documented in this encounter [facility] 10-01-2024 Plan of care note Rowena Drake is a 34 year old female with PCOS and possible male factor infertility. 1. Polycystic ovarian syndrome (E28.2) Diagnosed with PCOS, currently managed with Clomid. Previous treatment with Letrozole was not well-tolerated. Regular menstrual cycles achieved with progesterone therapy. Hysterosalpingography showed patent fallopian tubes. Pelvic ultrasound revealed multiple ovarian cysts, consistent with PCOS. AMH level was 5.7 ng/mL in 2022. No comorbidities such as thyroid dysfunction or diabetes mellitus identified. Continue current Clomid therapy. Monitor menstrual regularity and ovulatory function. Follow-up after completion of male infertility evaluation. 2. General counseling and advice for procreative management (Z31.69) Extensive evaluation and treatment for infertility conducted over the past two years. has type 1 diabetes mellitus, well-controlled with an A1c around 6%. Incomplete semen analysis due to insufficient sample volume. Potential issue of retrograde ejaculation considered. - Referred to [facility] urologists specializing in male infertility: Dr. Bull, Dr. Yu, or Dr. Duron. - Discussed use of special condom for semen collection available at [facility]. - Advised scheduling a follow-up appointment after urological evaluation to discuss further reproductive management options, including IUI or IVF if necessary. This visit was conducted as a virtual visit via zoom. I have communicated my name and active licensure. The patient's identity and physical location were verified at the time of this visit. Either the patient or their legal apprenticeship training representative has been informed of the risks and benefits of -- and alternatives to -- treatment through a remote evaluation and consents to proceed with the evaluation remotely. I spent a total of 20 minutes on the date of the service which included preparing to see the patient, aubt-zw-cicc patient care, completing clinical documentation, counseling and educating the patient/family/caregiver, ordering medications, tests, or procedures, communicating results to the patient/family/caregiver, and care coordination (not separately reported). The patient consented to the use of ambient Well[employer] software for draft documentation of the visit consistent with [facility] s Notice of Privacy Practices. [facility] 10-01-2024 Miscellaneous Notes Rowena Drake is a 34 year old female with PCOS and possible male factor infertility. 1. Polycystic ovarian syndrome (E28.2) Diagnosed with PCOS, currently managed with Clomid. Previous treatment with Letrozole was not well-tolerated. Regular menstrual cycles achieved with progesterone therapy. Hysterosalpingography showed patent fallopian tubes. Pelvic ultrasound revealed multiple ovarian cysts, consistent with PCOS. AMH level was 5.7 ng/mL in 2022. No comorbidities such as thyroid dysfunction or diabetes mellitus identified. Continue current Clomid therapy. Monitor menstrual regularity and ovulatory function. Follow-up after completion of male infertility evaluation. 2. General counseling and advice for procreative management (Z31.69) Extensive evaluation and treatment for infertility conducted over the past two years. has type 1 diabetes mellitus, well-controlled with an A1c around 6%. Incomplete semen analysis due to insufficient sample volume. Potential issue of retrograde ejaculation considered. - Referred to [facility] urologists specializing in male infertility: Dr. Bull, Dr. Yu, or Dr. Duron. - Discussed use of special condom for semen collection available at [facility]. - Advised scheduling a follow-up appointment after urological evaluation to discuss further reproductive management options, including IUI or IVF if necessary. This visit was conducted as a virtual visit via zoom. I have communicated my name and active licensure. The patient's identity and physical location were verified at the time of this visit. Either the patient or their legal apprenticeship training representative has been informed of the risks and benefits of -- and alternatives to -- treatment through a remote evaluation and consents to proceed with the evaluation remotely. I spent a total of 20 minutes on the date of the service which included preparing to see the patient, szoz-pq-gbio patient care, completing clinical documentation, counseling and educating the patient/family/caregiver, ordering medications, tests, or procedures, communicating results to the patient/family/caregiver, and care coordination (not separately reported). The patient consented to the use of [place] [employer]ist software for draft documentation of the visit consistent with [facility] s Notice of Privacy Practices. documented in this encounter [facility] 10-01-2024 Telephone encounter Note Left message for pt to return call to update fertility screening, partner information, etc. Angella Arellano MA October 01, 2024 11:14 AM [facility] 10-01-2024 Miscellaneous Notes Left message for pt to return call to update fertility screening, partner information, etc. Angella Arellano MA October 01, 2024 11:14 AM documented in this encounter [facility] 07-20-2024 History of Present illness Narrative Reason [...] nursing note reviewed. Exam conducted with a cutter helper present. Vitals: Estimated body mass index is [...] after allowing sufficient time to take affect. crop picker and scissors used to remove affected area. Placed in formalin and sent to pathology. Post-procedure instructions given. Follow Up: As needed Documented by Rhonda Dubois LPN on behalf of: Donovan Burks DO documented in this encounter [facility] 11-19-2023 Telephone encounter Note Images from the original note were not included. Medication Access Team coordinated the following [facility] Clinics: [place]/Neurology Prior Authorization Per the patient's insurance provider, [employer], the prior authorization for LAMOTRIGINE 300 (on-label) was approved. Authorization number: [id number] Authorization start date: 11/14/23 Authorization end date: 11/12/24 Non-Specialty Prescriptions: 1, 20-25 min Namrata Tony [facility] 11-19-2023 Miscellaneous Notes Images from the original note were not included. Medication Access Team coordinated the following [facility] PAC Clinics: MS/Neurology Prior Authorization Per the patient's insurance provider, [employer], the prior authorization for LAMOTRIGINE 300 (on-label) was approved. Authorization number: [id number] Authorization start date: 11/14/23 Authorization end date: 11/12/24 Non-Specialty Prescriptions: 1, 20-25 min Namrata Tony documented in this encounter [facility] 11-14-2023 Telephone encounter Note Images from the original note were not included. *Documentation only- I did not speak with the patient. Received fax from [employer] stating PA is needed for Lamotrigine ER 300 mg tablets. Current auth expires 11/25/2023. [facility] 11-14-2023 Miscellaneous Notes Images from the original note were not included. *Documentation only- I did not speak with the patient. Received fax from [employer] stating PA is needed for Lamotrigine ER 300 mg tablets. Current auth expires 11/25/2023. documented in this encounter [facility] 08-21-2023 History of Present illness Narrative [...] 24 hours. 2 Each 0 Prenat MV-Min w/Lu-Oenzdi-PUH ( COMPLETE PO) Take 1 tablet by [...] AW Model ID Sentiva N1000 Serial # [id number] Implanted 03/27/2018 Communication Output Current Status Current [...] in case of questions or concerns. Cori Dennis DO Lens Grinding Machine Operator Department of Neurology, Epilepsy Division [facility] documented in this encounter [facility] 08-21-2023 Instructions Cori Meek DO - 08/21/2023 2:45 PM EDT Increase Lamictal as follows: Week 1: Lamictal XR 300 mg + 50 mg tablet Week 2 and on: Lamictal XR 300 mg + 100 mg tablet Apply for the uber voucher: [email or web address] Increase Sertraline to 100 mg daily + 50 mg daily Continue with Folic acid 1 mg + vitamin Please follow-up with me in the clinic in 4 months. If you have any questions or concerns prior to the next visit, you can call the Neurology clinic at [phone]. If you have access through Work[employer], you can contact me through that system as well. documented in this encounter [facility] 05-28-2023 History of Present illness Narrative Images from the original note were not included. Rowena Drake was seen in the [facility] at [facility] on 05/28/2023. She is here [...] 24 hours. 2 Each 0 Prenat MV-Min w/Qf-Weaxse-JGF ( COMPLETE PO) Take 1 tablet by [...] your epilepsy that we offer at the [facility]? Yes If you have tried 2 or 3 anti-seizure medications and your seizures are still not controlled, are you interested in learning about surgical options for your epilepsy that we can offer at the [facility]? No Neurological Disorders Depression Inventory [...] 01/15/2023 Model Number 1000 1000 Serial Number [id number] Output Current (mA) 2.5 mA 2.25 mA [...] and continue maintenance dose of clobazam - [place] ELEC HORACE IMPLT SMPL CN NPGT PRGRMG [...] 45 tablet; Refill: 2 Encouraged use of [employer]Bits to send messages to provider as needed for questions and concerns or can call our clinic @ [phone]. She will return in [address] Dennis or sooner if clinically indicated. Signed, Petra Silveira MSN, CIGARETTE SELLER-ANALYSIS DIRECTOR [facility] Department of Neurology - Epilepsy Division [address] [place] [address] - 7th floor [place] [address] Pager: [phone] I spent a total of 35 minutes on the date of the service which included preparing to see the patient, pelv-zb-vhzt patient care, completing clinical documentation, performing a medically appropriate examination and counseling and educating the patient/family/caregiver. Note to patient: The 21st Century Cures Act makes medical notes like these available to patients in the interest of transparency. However, be advised this is a medical document. It is intended as lhaw-qk-zrow communication. It is written in medical language [...] nursing note reviewed. Exam conducted with a cutter helper present. Vitals: Estimated body mass index is [...] in the [facility] at [facility] on 02/14/2023. She is here today for a follow-up in clinic accompanied by her , Pedro. She was last seen on 04/19/[address] Cori Dennis DO and with md 11/08/2022. History of Present Illness INTERVAL HISTORY: [...] 24 hours. 2 Each 0 Prenat MV-Min w/Gf-Prhndy-XZF ( COMPLETE PO) Take 1 tablet by [...] ID ABW Model ID SenTiva Serial # [id number] Implanted 01/15/2023 Communication OK Output Current Status [...] VNS Simple Reprogramming (1-3 changes) CPT code 94799 Assessment and Plan Assessment: Rowena is a [...] longer than 5 minutes. Encouraged use of RentBits to send messages to provider as needed for questions and concerns or can call our clinic @ [phone]. She will return in 3 months with me and [address] Dennis or sooner if clinically indicated. Signed, Petra Silveira MSN, CIGARETTE SELLER-ANALYSIS DIRECTOR [facility] Department of Neurology - Epilepsy Division [address] [place] [address] - 7th floor [place] [address] Pager: [phone] I spent a total of 34 minutes on the date of the service which included preparing to see the patient, swau-de-icsn patient care, completing clinical documentation, performing a medically appropriate examination and counseling and educating the patient/family/caregiver. Note to patient: The Cures Act makes medical notes like these available to patients in the interest of transparency. However, be advised this is a medical document. It is intended as flpi-ii-qbor communication. It is written in medical language and may contain abbreviations or verbiage that are unfamiliar. It may appear blunt or direct. Medical documents are intended to carry relevant information, facts as evident, and the clinical opinion of the practitioner. documented in this encounter [facility] 02-14-2023 Instructions JETHRO Juan - 02/14/2023 4:00 [...] after regular office hours, a neurologist is conference director for urgent issues. Call the neurology office number ([phone]) to reach the neurologist conference director if you are continuing to experience many more seizures than usual despite use of your rescue medications. Please try to remember that the neurologist conference director may not have access to your complete medical record and may not be as familiar with your history. If you have access through OS[employer], you can contact us through that system as well. If you have documents that need completed or sent to our clinic, please have them faxed to [phone]. It is always best to call during [...] the refill is ready for you to crop picker. Seizure First Aid Training Can Be Found Here (it's free!): [email or web address] documented in this encounter [facility] 01-15-2023 Miscellaneous Notes [facility] OPERATIVE REPORT PATIENT NAME: Rowena [...] The IPG had been interrogated by the apprenticeship training representative from the vendor. The upper chest [...] the new IPG and secured with the phlebotomy lab assistant's screwdriver. At this point, a cobol programmer [...] VSS, anesthesia sign out completed. 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 SURGEON Surgeon(s) and Role: * Andi Smith MD - Primary ANESTHESIOLOGIST Anesthesiologist: Cydney Zavala MD LITHOGRAPHIC PLATE MAKER: Geraldo Marion APRN-LITHOGRAPHIC PLATE MAKER Student Nurse Entry Level Programmer: Chiquita Polanco SURGICAL STAFF Investigation Officer: Miki Gary RN; Linda Gilmore RN Relief Investigation Officer: Janet Carreon RN Scrub Person: Marielle Ibrahim Resident Assisting: Colt Meadows MD COMPLICATIONS None ESTIMATED BLOOD LOSS Minimal SPECIMENS No specimen sent * No specimens in log * Colt Meadows MD January 15, 2023 11:03 AM documented in this encounter [facility] 01-15-2023 Nurse Note Pt and family were given AVS and verbalize understanding of instructions. Pt discharged via wheelchair. [facility] 01-15-2023 Surgery Postoperative evaluation and management note [facility] OPERATIVE REPORT PATIENT NAME: Rowena [...] The IPG had been interrogated by the apprenticeship training representative from the vendor. The upper chest [...] the new IPG and secured with the phlebotomy lab assistant's screwdriver. At this point, a cobol programmer [...] entire procedure and performed the critical portions. [facility] 01-15-2023 Nurse Note Report called to RN SPR, VSS, anesthesia sign out completed. 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 SURGEON Surgeon(s) and Role: * Andi Smith MD - Primary ANESTHESIOLOGIST Anesthesiologist: Cydney Zavala MD LITHOGRAPHIC PLATE MAKER: Geraldo Marion APRN-LITHOGRAPHIC PLATE MAKER Student Nurse Entry Level Programmer: Chiquita Polanco SURGICAL STAFF Investigation Officer: Miki Gary RN; Linda Gilmore RN Relief Investigation Officer: Janet Carreon RN Scrub Person: Marielle Ibrahim Resident Assisting: Colt Meadows MD COMPLICATIONS None ESTIMATED BLOOD LOSS Minimal SPECIMENS No specimen sent * No specimens in log * Colt Meadows MD January 15, 2023 11:03 AM [facility] 01-15-2023 Nurse Surgical operation note Report given to CONCRETE PLANT LABORER. Patient transported to PACU with anesthesia on a cart and oxygen. [facility] 01-15-2023 Nurse Note Report given to CONCRETE PLANT LABORER. Patient transported to PACU with anesthesia on a cart and oxygen. documented in this encounter [facility] 01-15-2023 Hospital Discharge instructions Colt Meadows MD - 01/15/2023 9:30 AM EST Discharge Instructions for DBS Surgery & Battery Placement Surgery Here are some general guidelines to assist you in your recovery at home. Please do not hesitate to call us with any questions or concerns you may have. We can be reached at [phone]. Your appointmentS will be in the Neuromodulation clinic in [address] Incision Care: If you have a [...] 101 degrees F documented in this encounter [facility] 01-15-2023 History and physical note [...] by Andi Smith MD, 01/15/2023, 9:08 AM. [facility] Work Phone: 01-15-2023 History and physical [...] 01/15/2023, 9:08 AM. documented in this encounter [facility] 01-09-2023 History and physical note Images from the original note were not included. History of Present Illness Ms. Byers is a 32 y.o. female is being evaluated in [facility] due to her medical condition [...] 10 mg in 24 hours. Prenat MV-Min w/Em-Flrsth-CWJ ( COMPLETE PO) Take 1 tablet by [...] % ointment HCG QUALITATIVE, URINE Pulse Ox [place] ECG, CLINIC PERFORMED Lab A/P - Labs [...] patient has been medically OPTIMIZED FOR SURGERY. [facility] Per[facility]operative [facility] The [address] Review of Systems (OSUROS)Review of Systems [...] OPEN last 2018 Patient Care Team: Tim Stallings DO as PCP - General (Internal Medicine) Petra Silveira APRN-ANALYSIS DIRECTOR (Certified Nurse Practitioner) Family History Problem Relation Age of Onset Prostate Cancer Maternal Grandfather Mental Illness Maternal Grandmother Depression , Anxiety Prostate Cancer Paternal Grandfather Cancer- Other Paternal Grandfather Diabetes Paternal Uncle Social History Socioeconomic History Marital status: Highest education level: Bachelor's degree (e.g., BA, AB, BS) 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 Prenat MV-Min w/Qf-Gwhjlh-THW ( COMPLETE PO) Take 1 tablet by [...] % ointment HCG QUALITATIVE, URINE Pulse Ox [place] ECG, CLINIC PERFORMED Lab A/P - Labs [...] patient has been medically OPTIMIZED FOR SURGERY. [facility] The [address] Review of Systems (OSUROS)Review of Systems [...] OPEN last 2018 Patient Care Team: Tim Stallings DO as PCP - General (Internal Medicine) Petra Silveira APRN-ANALYSIS DIRECTOR (Certified Nurse Practitioner) Family History Problem Relation Age of Onset Prostate Cancer Maternal Grandfather Mental Illness Maternal Grandmother Depression , Anxiety Prostate Cancer Paternal Grandfather Cancer- Other Paternal Grandfather Diabetes Paternal Uncle Social History Socioeconomic History Marital status: Highest education level: Bachelor's degree (e.g., BA, AB, BS) 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 Will check hCG today and on day of surgery. Patient understands that surgery may be cancelled if she is . Anesthesia Assessment:No contraindications to planned surgery. Pending review of the patient's labs.ECG reviewed. Whitney Ward MD [facility] Preoperative Assessment Center documented in this encounter [facility] 01-09-2023 Instructions Robyn CASSIE Dempsey - 01/09/2023 [...] take Herbal Medication (including multi-vitamin, fish oil (Fremont-3), garlic, Glucosamine - Chondroitin ,gingko, ginseng, Vitamin [...] site one week prior to surgery. - [place] your teeth and rinse your mouth the morning of surgery. - Do NOT bring your dentures or partials with you into surgery. They may be lost. Give them to someone to bring to you after surgery. If you are unable to complete your scheduled testing or appointments made by [facility] please contact [facility] at [phone]. Failure to do so could delay or [...] surgery, please notify our team immediately at [phone]. - If you have Sleep apnea and have a CPAP or BIPAP, then bring your CPAP mask and machine with you to the hospital. Please contact Medical Information Management Department for all records requests. [phone] [phone] Puma/mateo documented in this encounter [facility] 12-10-2022 History of Present illness Narrative Neurosurgery [...] shows under general anesthesia. The patient saw Perta Silveira on 11-08-22 and at that point [...] that were dedicated to clinical evaluation, including hljn-fq-npqj time; counseling and education; chart completion; reviewing [...] aspirin, excedrin, plavix), multivitamins/minerals/herbal supplements (such as [place]ont-3, garlic, Glucosamine - Chondroitin, gingko, ginseng, Vitamin E, fish oil, etc), non-steroidal anti-inflammatory medications (NSAIDs) (such as Ibuprofen/Motrin/Advil, Aleve, Celebrex) for 10 days prior to surgery, as these are blood thinners. She was advised that Tylenol is the preferred option for pain. She stated understanding. documented in this encounter [facility] 11-08-2022 History of Present illness Narrative Images from the original note were not included. Rowena Byers was seen in the [facility] at [facility] on 11/08/2022. She is here today for a follow-up in clinic accompanied by her , Pedro. She was last seen on 04/19/[address] Cori Dennis DO and with md 09/19/22. History of Present Illness INTERVAL HISTORY: [...] ID AW Model ID SenTiva Serial # [id number] Implanted 03/27/2018 Communication OK Output Current Status [...] VNS Simple Reprogramming (1-3 changes) CPT code 84282 Assessment and Plan Assessment: Rowena is a [...] would like to wait Encouraged use of Rent[employer] to send messages to provider as needed for questions and concerns or can call our clinic @ [phone]. She will return in 2 months or sooner if clinically indicated. Signed, Petra Silveira MSN, CIGARETTE SELLER-ANALYSIS DIRECTOR [facility] Department of Neurology - Epilepsy Division [address] [place] [address] - 7th floor [place] [address] Pager: [phone] I spent a total of 46 minutes on the date of the service which included preparing to see the patient, kssd-ln-xywk patient care, completing clinical documentation, performing a medically appropriate examination and counseling and educating the patient/family/caregiver. Note to patient: The Century Cures Act makes medical notes like these available to patients in the interest of transparency. However, be advised this is a medical document. It is intended as [id number] communication. It is written in medical language and may contain abbreviations or verbiage that are unfamiliar. It may appear blunt or direct. Medical documents are intended to carry relevant information, facts as evident, and the clinical opinion of the practitioner. documented in this encounter [facility] 11-08-2022 Instructions JETHRO Juan - 11/08/2022 [...] ID AW Model ID SenTiva Serial # [id number] Implanted 03/27/2018 Communication OK Output Current Status OK Current Delivered 1.75 Lead Impedance OK Impedance Value 2903 IFI NO Average # of Inhibited Auto stimulations Daily Avg. Stim % Per Day %Therapy Normal 843.56 AutoStim 26.89 Magnet 0.04 Total 870.50 documented in this encounter [facility] 07-04-2021 Instructions JETHRO Juan - 07/04/2021 [...] weeks with Petra documented in this encounter [facility] 07-04-2021 History of Present illness Narrative Images from the original note were not included. Rowena Byers was seen in the [facility] on 07/04/2021. 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 Encouraged use of [employer] to send messages to provider as needed for questions and concerns or can call our clinic @ [phone]. She will return in 6 weeks and 3 months with me and [address] Dennis or sooner if clinically indicated. Signed, Petra Silveira MSN, CIGARETTE SELLER-ANALYSIS DIRECTOR [facility] Department of Neurology - Epilepsy Division [address] [place] [address] - 7th floor [place] [address] Pager: [phone] Time to complete visit: I spent approximately 38 minutes reviewing the chart prior to the appointment, in face to face counseling with the patient, and with documentation after the visit. 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 [facility] Diagnosis Jeavons syndrome- Primary [facility] Diagnosis Jeavons syndrome- Primary [facility] Diagnosis Jeavons syndrome Jeavons syndrome [facility] Diagnosis Preop exam for internal medicine- Primary Other specified pre-operative examination 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 Other postprocedural status Jeavons syndrome [facility] 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 Other postprocedural status [facility] Diagnosis Encounter for fertility planning documented [facility] encounter [facility]* Diagnosis Jeavons syndrome- Primary Anxiety disorder, unspecified type [facility] Diagnosis Onset Date Resolution Status Maxillary sinusitis acute [facility] Work Phone: Evaluation note* Diagnosis Jeavons syndrome- Primary Anxiety disorder, unspecified type [facility] Diagnosis Onset Date Resolution Status Maxillary sinusitis acute Maxillary sinusitis [facility] Work Phone: Evaluation note* Diagnosis PCOS (polycystic ovarian syndrome) Polycystic ovaries Skin tag Unspecified hypertrophic and atrophic condition of skin documented in this encounter [facility] noteNo assessment [facility]: [facility]* Diagnosis General counseling and advice for procreative management- Primary Other procreative management counseling and advice Polycystic ovarian syndrome Polycystic ovaries documented in this encounter [facility] for referral (narrative)* Consultation (Routine) - New Request Specialty Diagnoses / Procedures Referred By Rainer ramos Referred To Contact Neurologic Surgery Diagnoses Jeavons syndrome Andi Smith MD [address] [facility] [address] [place] [address] Referral ID Status Reason Start Date Expiration Date V isits Requested Visits Authorized [id number] New Request 12/10/2022 01/04/2024 1 1 [facility] Summary Purpose Family History No Family History Records Found Relationship Condition Age at Onset Recorded Date/T jorge grandparent Malignant neoplasm Unknown Advance Directives No Advanced Directives Records Found Advance Directive Response Recorded Date/ Time Advance Directives No July 06 12:12pm Reason for Referral Specialty Diagnoses / Procedures Referred By Rainer ramos Referred To Contact Diagnoses Generalized nonconvulsive epilepsy Petra Silveira, CIGARETTE SELLER-ANALYSIS DIRECTOR [address] [place] [address] Referral ID Status Reason Start Date Expiration Date V isits Requested Visits Authorized [id number] Pending Review 1 1 Specialty Diagnoses / Procedures Referred By Contharjinder ramos Referred To Contact Procedures DVT/VTE RISK ASSESSMENT Andi Smith MD [address] [place] [address] Referral ID Status Reason Start Date Expiration Date V isits Requested Visits Authorized [id number] New Request 01/15/2023 02/09/2024 1 1 Chief Complaint and Reason for Visit Chief Complaint sinus infection Reason for Visit Maxillary sinusitis Chief Complaint sinus infection sinus infection Reason for Visit Maxillary sinusitis Maxillary sinusitis Chief Complaint Admit Date Unknown July 20, 2024 9:00a m Additional Source Comments INFORMATION SOURCE (unrecogn ized section and content) DATE CREATED AUTHOR 09/03/2017 [facility] DATE CREATED AUTHOR AUTHOR'S ORGANIZ ATION 03/28/2018 [place] DATE CREATED AUTHOR AUTHOR'S ORGANIZ ATION 07/02/2018 [facility] DATE CREATED AUTHOR AUTHOR'S ORGANIZ ATION 10/02/2019 [facility] DATE CREATED AUTHOR AUTHOR'S ORGANIZ ATION 06/01/2022 [facility] DATE CREATED AUTHOR AUTHOR'S ORGANIZ ATION 04/24/[address] [facility] EPIC DATE CREATED AUTHOR AUTHOR'S ORGANIZ ATION 06/07/2024 [facility] DATE CREATED AUTHOR AUTHOR'S ORGANIZ ATION 07/21/[address] [facility] EPIC DATE CREATED AUTHOR AUTHOR'S ORGANIZ ATION 07/28/2024 [facility] DATE CREATED AUTHOR AUTHOR'S ORGANIZ ATION 10/02/2024 [facility] Reason for Visit (unrecogniz ed section and content) Reason Comments Follow-up Reason Comments Follow-up Reason Comments New Patient 32 y.o female here f or consult. Specialty Diagnoses / Procedures Referred By Contac t Referred To Contact Neurologic Surgery Diagnoses Jeavons syndrome S/P placement of VNS (vagus nerve stimulation) device Petra Sivleira, CIGARETTE SELLER-ANALYSIS DIRECTOR [address] [place] [address] Referral ID Status Reason Start Date Expiration Date V isits Requested Visits Authorized [id number] New Request 09/19/2022 10/14/2023 1 1 Reason Comments Preoperative Assessment Specialty Diagnoses / Procedures Referred By Contharjinder t Referred To Contact Neurologic Surgery Diagnoses Jeavons syndrome Andi Smith MD [address] [place] [phone] Referral ID Status Reason Start Date Expiration Date V isits Requested Visits Authorized [id number] New Request 12/10/2022 01/04/2024 1 1 Specialty Diagnoses / Procedures Referred By Rainer t 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 Reason Comments LMTCB Reason Comments Infertility Care Teams (unrecognized sec tion and content) Lithograph Press Operator Tinware Relationship Specialty Start Date End Date Tim Stallings DO [address] [place] [phone] PCP - General Internal Medicine 09/19/22 Petra Silveira, CIGARETTE SELLER-ANALYSIS DIRECTOR [address] [phone] Certified Nurse Practitioner 11/08/22 Lith[employer] Press Operator [employer] Relationship Specialty Start Date End Date Tim Stallings DO [address] [place] [address] PCP - General Internal Medicine 09/19/22 Petra Silveira, CIGARETTE SELLER-ANALYSIS DIRECTOR [address] [phone] Certified Nurse Practitioner 11/08/22 Lithograph Press Operator Tinware Relationship Specialty Start Date End Date Tim Stallings DO [address] [place] [address] PCP - General Internal Medicine 09/19/22 Petra Silveira, CIGARETTE SELLER-ANALYSIS DIRECTOR [address] [phone] Certified Nurse Practitioner 11/08/22 Lithograph Press Operator Tinware Relationship Specialty Start Date End Date Tim Stallings DO [address] [place] [address] PCP - General Internal Medicine 09/19/22 Petra Silveira, CIGARETTE SELLER-ANALYSIS DIRECTOR [address] [phone] Certified Nurse Practitioner 11/08/22 Lithograph Press Operator Tinware Relationship Specialty Start Date End Date Tim Stallings DO [address] [place] [facility] [place] [address] PCP - General Internal Medicine 09/19/22 Petra Silveira, CIGARETTE SELLER-ANALYSIS DIRECTOR [address] [place] [phone] Certified Nurse Practitioner 11/08/22 Lithograph Press Operator Tinware Relationship Specialty Start Date End Date Tim Stallings DO [address] [place] [facility] [place] [address] PCP - General Internal Medicine 09/19/22 Petra Silveira, CIGARETTE SELLER-ANALYSIS DIRECTOR [address] [phone] Certified Nurse Practitioner 11/08/22 Lithograph Press Operator Tinware Relationship Specialty Start Date End Date Tim Stallings MD [address] [place] [phone] PCP - General Internal Medicine 08/08/22 Lithograph Press Operator Tinware Relationship Specialty Start Date End Date Tim Stallings DO [address] [place] [facility] [place] [address] PCP - General Internal Medicine 09/19/22 Petra Silveira, CIGARETTE SELLER-ANALYSIS DIRECTOR [address] [phone] Certified Nurse Practitioner 11/08/22 Team Status: Active Member Role Status Dates Tim Stallings DO Primary Care Provider Active Team Status: Active Member Role Status Dates Tim Stallings DO Primary Care Provide r, Attending Provider Active Start: May 09, 2023 Team Status: Active Member Role Status Dates Tim Ball , DO Primary Care Provide r, Attending Provider Active Start: June 08, 2023 Team Status: Active Member Role Status Dates Tim Stallings DO Primary Care Provide r, Attending Provider Active Start: June 27, 2023 Team Status: Inactive Member Role Status Dates Tim Stallings DO Primary Care Provider Active Start: July 07, 2023 End: July 07, 2023 Kristine Oneill APRN ASSEMBLER-Ruiz Attending Provider Act duncan Start: July 07, 2023 End: July 07, 2023 Lithograph Press Operator Tinware Relationship Specialty Start Date End Date HaylieTimDO [address] [place] [phone] PCP - General Internal Medicine 09/19/22 Petra Silveira APRN-ANALYSIS DIRECTOR [address] [phone] Certified Nurse Practitioner 11/08/22 Team Status: Active Member Role Status Dates Tim Stallings DO Primary Care Provide r, Attending Provider Active Start: July 09, 2023 Team Status: Active Member Role Status Dates Tim Stallings DO Primary Care Provide r, Attending Provider Active Start: August 08, 2023 Team Status: Active Member Role Status Dates Tim Stallings DO Primary Care Provide r, Attending Provider Active Start: September 11, 2023 Team Status: Inactive Member Role Status Dates Tim Stallings DO Primary Care Provider Active Start: September 24, 2023 End: September 24, 2023 Kristine Oneill APRN ASSEMBLERHeavenly Attending Provider Act duncan Start: September 24, 2023 End: September 24, 2023 Lithograph Press Operator Tinware Relationship Specialty Start Date End Date Tim Stallings [address] [place] [address] PCP - General Internal Medicine 09/19/22 Petra Silveira APRN-ANALYSIS DIRECTOR [address] [phone] Certified Nurse Practitioner 11/08/22 Lithograph Press Operator Tinware Relationship Specialty Start Date End Date Tim Stallings MD [address] [place] [facility] [place] [address] PCP - General Internal Medicine 08/08/22 Lithograph Press Operator Tinware Relationship Specialty Start Date End Date Tim Stallings MD [address] [place] [facility] [place] [address] PCP - General Internal Medicine 08/08/22 Lithograph Press Operator Tinware Relationship Specialty Start Date End Date Tim Stallings MD [address] [place] [facility] [place] [address] PCP - General Internal Medicine 08/08/22 Lithograph Press Operator Tinware Relationship Specialty Start Date End Date Tim Stallings DO [address] [place] [facility] [place] [address] PCP - General Internal Medicine 08/08/22 Lithograph Press Operator Tinware Relationship Specialty Start Date End Date Tim Stallings DO [address] [place] [address] PCP - General Internal Medicine 08/08/22 Team Status: Active Member Role Status Dates Tim Stallings DO Primary Care Provide r, Attending Provider Active Start: May 26, 2024 Team Status: Active Member Role Status Dates Tim Stallings DO Primary Care Provide r, Attending Provider Active Start: June 28, 2024 Team Status: Inactive Member Role Status Dates Donovan Burks DO Attending Provider Active Start : July 20, 2024 End: July 20, 2024 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 Start Date End Date Tim Stallings, [address] [place] [address] PCP - General Internal Medicine 07/26/24 Donovan Burks, DO [address] [place] [address] Referring Polymer Chemist 07/26/24 Scheduled Active and Recently Administ ered Medications [...] - Comment: mixed 1:1 w/Lido with epi 1:[id number]) ceFAZolin (ANCEF) 2 g in dextrose 100 mL premix IVPB (COMPLETED) 2 g, Intravenous, Administer over 30 Minutes, CIVIL PREPAREDNESS TRAINING OFFICER TO PROCEDURE, 1 dose, Starting on Fri01/15/23 at 0758, Until Discontinued, Other, Surgical Prophylaxis, Initiate antibiotic administration 30-60 minutes prior to surgical incision and complete administration prior to surgical incision., Pre-op/Pre-Proc 0955 (Given - Provid er: Geraldo Marion, CIGARETTE SELLER-LITHOGRAPHIC PLATE MAKER) lidocaine-epinephrine 2 %-1:[id number] injection (CANCELED) NEEDED, Starting on Fri01/15/23 at [...] Order-specific weight), Intravenous, Administer over 1 Hours, CIVIL PREPAREDNESS TRAINING OFFICER TO PROCEDURE, 1 dose, Starting on Fri01/15/23 [...] may be documented in an alternate section Source Comments (unrecognize d section and content) In the event this informatio n is protected by the Federal Confidentiality of Alcohol and Drug Abuse Patient Records regulations: The Federal rules restrict any use of the information to criminally investigate or prosecute any alcohol or drug abuse patient.[facility] the event this information is protected by the Federal Confidentiality of Alcohol and Drug Abuse Patient Records regulations: The Federal rules restrict any use of the information to criminally investigate or prosecute any alcohol or drug abuse patient.[facility] the event this information is protected by the Federal Confidentiality of Alcohol and Drug Abuse Patient Records regulations: The Federal rules restrict any use of the information to criminally investigate or prosecute any alcohol or drug abuse patient.[facility] FOR RECORDS PERTAINING TO PATIENTS WHO ARE [...] BE BASED ON THE PRIMARY CLINICAL RECORDS. [employer] [facility]. provides no warranty or guarantee of the accuracy or completeness of information in this document.
== END 2024-11-06 23:59 | disposition home or self-care (01) ==
LOC: LAB 12:24
PROVIDERS: PCP Internal Medicine; Visit Provider Obstetrics & Gynecology
DX: N97.9 Female infertility, unspecified (principal); N97.0 Female infertility associated with anovulation
CPT/HCPCS: 36415; 84144

== ENCOUNTER 2024-10-28 14:45 | Outpatient (REF) | payer OTHER, SELFPAY ==
--- OUTSIDE RECORDS SUMMARY | 2024-10-28 15:08 | XMS_ITS | CCD ---
Author Organization [facility] CliniSynm Care Team Providers Care Cherry Sorter Name Role Phone JAMIL SMITH Referring [...] Tim Stallings DO Primary Care Provider Raoul MAINTENANCE MAN-FIELD SERVICER, Crystal G Unavailable Tim Stallings MD Primary Care Provider DONOVAN BURKS Attending Unavailable Raoul MAINTENANCE MAN-FIELD SERVICER, Crystal G Unavailable CORI DENNIS Attending Unavailable TIM STALLINGS Primary Care Unavailable SELF, SELF Referring Unavailable TIM STALLINGS Referring Unavailable TIM STALLINGS Primary Care Unavailable CORI DENNIS Attending Unavailable Tim Stallings MD Primary Care Provider Tim Stallings DO Primary Care Provider DONOVAN BURKS Attending Unavailable MADNONA PARSONS Attending Unavailable DONOVAN BURKS Attending Unavailable Donovan Burks DO Attending Provider [phone] Donovan Burks Attending Unavailable Donovan Burks Admitting Unavailable Tim Stallings DO Primary Care Provider KimmieDonovan pritchett DO R Unavailable KIT CAICEDO Attending Unav ailable TIM STALLINGS Primary Care Unavailable Allergies Allergy Classification Reported Allergen(s) Allergy Type Date of Onset Reaction(s) Facility (11 sources) Seasonal allergy Propensity to adverse reactions to drug 7 Runny Nose, Congestion [facility] Work Phone: (16 sources) Pollen Propensity to adverse reactions 7 Runny nose [facility] (16 sources) Other Propensity to adverse reactions 2 [...] mg / cholecalciferol 500 unt oral capsule (17 sources) Vitamin D Start: 2023 Calcium Carb-Cholecalciferol [...] Active clomiPHENE citrate 50 mg oral tablet (9 sources) Estrogen Agonist/Antagonist Start: 10-25-2024 End: 10-30-2024 take 2 tablets by mouth once daily Clomid 50 MG tablet Indications: Anovulation TAKE 2 TABLETS BY MOUTH DAILY FOR 5 DAYS 10 tablet 10/25/2024 10/30/2024 Active Start: 08-16-2024 Clomid 50 MG t ablet Indications: Anovulation [...] 2023 12:00am escitalopram 20 mg oral tablet (15 sources) Serotonin Reuptake Inhibitor Start: 04-30-2021 take [...] sulfate 120 mg extended release oral tablet (16 sources) alpha-Adrenergic Agonist take 1 tablet by [...] Indications: 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 Active take 1 tablet by mouth once at b edtime Prenat MV-Min w/Sz-Usnyyb-PYV ( COMPLETE PO) Take 1 tablet by mouth at bedtime. 0 Active MV-Min-Fe Fum-FA-DH A ( 1 PO) (16 sources) MV-Min- Fe Fum-FA-DHA ( 1 PO) [...] SYNDROME] Onset: 05-23-2022 Chronic Other endocrine disorders (17 sources) Polycystic ovary syndrome; Translations: [Polycystic ovarian [...] Value Interpretation Reference Range Facility ALL PROGESTERONEon PROGESTERONE 30.3 ng/mL . [facility] Comment on above: Follicular phase 0.1 - 0.9 Luteal phase 1.8 - 23.9 Ovulation phase 0.1 - 12.0 First trimester 11.0 - 44.3 Second trimester 25.4 - 83.3 Third trimester 58.7 - 214.0 Postmenopausal 0.0 - 0.1 Performed at: [facility] [address] [id number] Boring Mill Operator For [employer]: Ino Dougherty PhD, Phone: [phone] [facility] [id number] 10-01-2024 HNO ID: [id number] Author: KIT CAICEDO MD Service: ? Author [...] of retrograde ejaculation considered. - Referred to [facility] urologists specializing in male infertility: Dr. Bull, Dr. Yu, or Dr. Duron. - Discussed use of special condom for semen collection available at [employer] urology department. - Advised scheduling a follow-up appointment after urological evaluation to discuss further reproductive management options, including IUI or IVF if necessary. This visit was conducted as a virtual visit via zoom. I have communicated my name and active licensure. The patient's identity and physical location were verified at the time of this visit. Either the patient or their legal in home sales representative has been informed of the risks and benefits of -- and alternatives to -- treatment through a remote evaluation and consents to proceed with the evaluation remotely. I spent a total of 20 minutes on the date of the service which included preparing to see the patient, [id number] patient care, completing clinical documentation, counseling and educating the patient/family/caregive r, ordering medications, tests, or procedures, communicating results to the patient/family/caregive r, and care coordination (not separately reported). The patient consented to the use of Department of Health and Human Services software for draft documentation of the visit consistent with [facility]?s Notice of Privacy Practices. Normal [facility] 10-01-2024 [facility] Telephone (REIAV) ROWENA GUADALUPE ([id number]) 1990 F Date Time Provider Department 10/01/24 [...] Encounter Status:Closed by ANGELLA ARELLANO on 10/01/24 Normal [facility] CONSULT PROGon 10-01-2024 CONSULT PROG HNO ID: [id number] Author: KIT CAICEDO MD Service: ? Author Type: Physician Type: Consult Progress Note Filed: 10/01/2024 11:29 Note Text: [facility] CENTER Date: 10/01/2024 Rowena Drake is a [...] year old (more content not included)... Normal [facility] ALL PROGESTERONEon 5 PROGESTERONE 49.0 ng/mL . [facility] Comment on above: Follicular phase 0.1 - 0.9 Luteal phase 1.8 - 23.9 Ovulation phase 0.1 - 12.0 First trimester 11.0 - 44.3 Second trimester 25.4 - 83.3 Third trimester 58.7 - 214.0 Postmenopausal 0.0 - 0.1 Performed at: [address] [id number] [employer]: Ino Dougherty PhD, Phone: [phone] [facility] ALL PROGESTERONEon 5 PROGESTERONE 32.3 ng/mL . [facility] Comment on above: Follicular phase 0.1 - 0.9 Luteal phase 1.8 - 23.9 Ovulation phase 0.1 - 12.0 First trimester 11.0 - 44.3 Second trimester 25.4 - 83.3 Third trimester 58.7 - 214.0 Postmenopausal 0.0 - 0.1 Performed at: [address] [id number] [employer]: Ino Dougherty PhD, Phone: [phone] [facility] PATHOLOGY REQUEST FOR LAB CO RPon 07-27-2024 PATHOLOGY REQUEST FOR LAB HELGA [facility] Comment on above: See report. Scanned copy available in EMR. SKIN TAG [facility] Pathology Request for Lab Co rpon 07-20-2024 Pathology Request for Lab Helga Normal [facility] Comment on above: Order Comment: SKIN TAG Result Comment: See report. Scanned copy available in EMR. PERFORMED BY: [place] [id number] [place] [address] PATHOLOGIST NEWSPAPER INSERTER SAM MARTIN M.D. Performed By: #### P ATH TO [facility] #### [facility] [address] ALL PROGESTERONEon PROGESTERONE 32.1 ng/mL . [facility] Comment on above: Follicular phase 0.1 - 0.9 Luteal phase 1.8 - 23.9 Ovulation phase 0.1 - 12.0 First trimester 11.0 - 44.3 Second trimester 25.4 - 83.3 Third trimester 58.7 - 214.0 Postmenopausal 0.0 - 0.1 Performed at: - [facility] [address] [id number] [employer]: Ino Duogherty PhD, Phone: [phone] [facility] Estimated glomerular filtrat ion rate (GFR) non- Americanon 06-28-2024 GFR/1.73 sq M.predicted among non-blacks MDRD (S/P/Bld) [Vol rate/Area] Estimated glomerular filtration rate (GFR) non- >=60 mL/min/1.73 m 2 [facility] Globulin Calc (S) [Mass/Vol] on 06-28-2024 Globulin (S) [Mass/Vol] Serum globulin measurement by calculation (mass/volume) [facility] Laboratory - Chemistry and C hemistry - challengeon 06-28-2024 Albumin [Mass/Vol] 4.0 g/dL 3.4-5.0 [facility] ALP [Catalytic activity/Vol] 43 U/L Low 46-116 [facility] ALT [Catalytic activity/Vol] 18 U/L 14-59 [facility] AST [Catalytic activity/Vol] 14 U/L Low 15-37 [facility] Bilirubin [Mass/Vol] 0.2 mg/dL 0.2-1.0 [facility] Calcium [Mass/Vol] 9.3 mg/dL 8.5-10.1 [facility] Chloride [Moles/Vol] 103 mmol/L 98-107 [facility] CO2 [Moles/Vol] 26.9 mmol/L 21.0-32.0 [facility] Creatinine [Mass/Vol] 0.63 mg/dL 0.55-1.02 [facility] GFR/1.73 sq M.predicted MDRD (S/P/Bld) [Vol rate/Area] mL/min/{1.73_m2} >=60 mL/min/1.73 m 2 [facility] Glucose [Mass/Vol] 89 mg/dL 74-106 [facility] Potassium [Moles/Vol] 4.4 mmol/L 3.5-5.1 [facility] Protein [Mass/Vol] 7.4 g/dL 6.4-8.2 [facility] Sodium [Moles/Vol] 138 mmol/L 136-145 [facility] Urea nitrogen [Mass/Vol] 13.0 mg/dL 7.0-18.0 [facility] Urea nitrogen/Creatinine [Mass ratio] 20.6 mg/mg [facility] No Panel Informationon 06-28 Lamotrigine (Lamictal) Level 4.8 ug/mL 2.0-20.0 [facility] Comment on above: Detection Limit = 1. 0Performed at: [employer] [address] [id number] Director: Tana Gonzalez MD, Phone: [phone] Serum or plasma albumin/glob ulin mass ratioon 06-28-2024 Albumin/Globulin [Mass ratio] Serum or plasma albumin/globulin mass ratio [facility] Serum or plasma anion gap de terminationon 06-28-2024 Anion gap [Moles/Vol] Serum or plasma an ion gap determination [facility] Serum or plasma progesterone measurement (mass/volume)on 06-28-2024 Progesterone [Mass/Vol] Serum or plasma progesterone measurement (mass/volume) . [facility] Comment on above: Follicular phase 0.1 - 0.9 Luteal phase 1.8 - 23.9 Ovulation phase 0.1 - 12.0 First trimester 11.0 - 44.3 Second trimester 25.4 - 83.3 Third trimester 58.7 - 214.0 Postmenopausal 0.0 - 0.1Performed at: [employer] [address] [id number] Director: Ino Dougherty PhD, Phone: [phone] ALL PROGESTERONEon 5 PROGESTERONE 17.1 ng/mL . [facility] [place] Comment on above: Follicular phase 0.1 - 0.9 Luteal phase 1.8 - 23.9 Ovulation phase 0.1 - 12.0 First trimester 11.0 - 44.3 Second trimester 25.4 - 83.3 Third trimester 58.7 - 214.0 Postmenopausal 0.0 - 0.1 Performed at: [facility] [id number] [employer]: Ino Dougherty PhD, Phone: [phone] [employer] Serum or plasma progesterone measurement (mass/volume)on 05-26-2024 Progesterone [Mass/Vol] Serum or plasma progesterone measurement (mass/volume) . [facility] Comment on above: Follicular phase 0.1 - 0.9 Luteal phase 1.8 - 23.9 Ovulation phase 0.1 - 12.0 First trimester 11.0 - 44.3 Second trimester 25.4 - 83.3 Third trimester 58.7 - 214.0 Postmenopausal 0.0 - 0.1Performed at: [facility] [id number] Director: Ino Dougherty PhD, Phone: [phone] ALL PROGESTERONEon 4 PROGESTERONE 21.2 ng/mL . [facility] [place] Comment on above: Follicular phase 0.1 - 0.9 Luteal phase 1.8 - 23.9 Ovulation phase 0.1 - 12.0 First trimester 11.0 - 44.3 Second trimester 25.4 - 83.3 Third trimester 58.7 - 214.0 Postmenopausal 0.0 - 0.1 Performed at: [facility] [id number] [employer]: Ino Dougherty PhD, Phone: [phone] [employer] ALL PROGESTERONEon 4 PROGESTERONE 25.4 ng/mL . [facility] [place] Comment on above: Follicular phase 0.1 - 0.9 Luteal phase 1.8 - 23.9 Ovulation phase 0.1 - 12.0 First trimester 11.0 - 44.3 Second trimester 25.4 - 83.3 Third trimester 58.7 - 214.0 Postmenopausal 0.0 - 0.1 Performed at: [address] [id number] [employer]: Ino Dougherty PhD, Phone: [phone] [facility] [place] ALL PROGESTERONEon 4 PROGESTERONE 19.7 ng/mL . [facility] Comment on above: Follicular phase 0.1 - 0.9 Luteal phase 1.8 - 23.9 Ovulation phase 0.1 - 12.0 First trimester 11.0 - 44.3 Second trimester 25.4 - 83.3 Third trimester 58.7 - 214.0 Postmenopausal 0.0 - 0.1 Performed at: [address] [id number] [employer]: Ino Dougherty PhD, Phone: [phone] [facility] [place] ALL PROGESTERONEon 4 PROGESTERONE 20.0 ng/mL . [facility] Comment on above: Follicular phase 0.1 - 0.9 Luteal phase 1.8 - 23.9 Ovulation phase 0.1 - 12.0 First trimester 11.0 - 44.3 Second trimester 25.4 - 83.3 Third trimester 58.7 - 214.0 Postmenopausal 0.0 - 0.1 Performed at: [address] [id number] [employer]: Ino Dougherty PhD, Phone: [phone] [facility] [place] Serum or plasma progesterone measurement (mass/volume)on 09-11-2023 Progesterone [Mass/Vol] 12.9 ng/mL . [facility] Comment on above: Follicular phase 0.1 - 0.9 Luteal phase 1.8 - 23.9 Ovulation phase 0.1 - 12.0 First trimester 11.0 - 44.3 Second trimester 25.4 - 83.3 Third trimester 58.7 - 214.0 Postmenopausal 0.0 - 0.1Performed at: [address] [id number] Director: Ino Dougherty PhD, Phone: [phone] Serum or plasma progesterone measurement (mass/volume)on 08-08-2023 Progesterone [Mass/Vol] 11.3 ng/mL . [facility] Comment on above: Follicular phase 0.1 - 0.9 Luteal phase 1.8 - 23.9 Ovulation phase 0.1 - 12.0 First trimester 11.0 - 44.3 Second trimester 25.4 - 83.3 Third trimester 58.7 - 214.0 Postmenopausal 0.0 - 0.1Performed at: [employer] [place], [place] [id number] Director: Ino Dougherty PhD, Phone: [phone] Serum or plasma progesterone measurement (mass/volume)on 07-09-2023 Progesterone [Mass/Vol] 16.6 ng/mL . [facility] Comment on above: Follicular phase 0.1 - 0.9 Luteal phase 1.8 - 23.9 Ovulation phase 0.1 - 12.0 First trimester 11.0 - 44.3 Second trimester 25.4 - 83.3 Third trimester 58.7 - 214.0 Postmenopausal 0.0 - 0.1Performed at: [employer] [place], [place] [id number] Director: Ino Dougherty PhD, Phone: [phone] No Panel Informationon 06-26 Human Chorionic Gonadotropin, Quant <1 mIU/mL [facility] Comment on above: 5-50 0.2-1 AOQU41-63 0 1-2 HJVFA253-7,000 2-3 BKQTR116-69,000 3-4 WEEKS1,000-50,000 4-5 WEEKS10,000-100,000 5-6 WEEKS15,000-200,000 6-8 WEEKS10,000-100,000 2-3 MONTHS Serum or plasma progesterone measurement (mass/volume)on 06-08-2023 Progesterone [Mass/Vol] 20.7 ng/mL . F [facility] Comment on above: Follicular phase 0.1 - 0.9 Luteal phase 1.8 - 23.9 Ovulation phase 0.1 - 12.0 First trimester 11.0 - 44.3 Second trimester 25.4 - 83.3 Third trimester 58.7 - 214.0 Postmenopausal 0.0 - 0.1Performed at: [employer] [place], [place] [id number] Director: Ino Dougherty PhD, Phone: [phone] Laboratory - Chemistry and C hemistry - challengeon 05-09-2023 Free T4 [Mass/Vol] 0.77 ng/dL 0.76-1.46 [facility] No Panel Informationon 05-08 Free Triiodothyronine 2.78 pg/mL 2.18-3.98 [facility] Serum or plasma progesterone measurement (mass/volume)on 05-09-2023 Progesterone [Mass/Vol] 19.3 ng/mL . F [facility] Comment on above: Follicular phase 0.1 - 0.9 Luteal phase 1.8 - 23.9 Ovulation phase 0.1 - 12.0 First trimester 11.0 - 44.3 Second trimester 25.4 - 83.3 Third trimester 58.7 - 214.0 Postmenopausal 0.0 - 0.1Performed at: [facility] [id number] Director: Ino Dougherty PhD, Phone: [phone] BETA HCG, URINE (POC DEVICE) on 01-15-2023 Beta HCG ( test) Ql (U) Negative Negative [facility] Interpretation and review of laboratory results Normal [facility] Test performed at address of the patient encounter. [facility] CARDIAC RHYTHM (SCANNED)on 03-17-2022 [facility] CBC AND ELECTRONIC DIFFon Basophils (Bld) [#/Vol] 0.05 10*3/uL 0.00 - 0.15 K/uL [facility] Basophils/100 WBC (Bld) 0.5 % O [facility] Differential cell count method Nom (Bld) Electronic Differential [facility] Eosinophils (Bld) [#/Vol] 0.12 10*3/uL 0.00 - 0.42 K/uL [facility] Eosinophils/100 WBC (Bld) 1.2 % [facility] Erythrocyte distribution width (RBC) [Ratio] 13.1 % 10.8 - 14.9 % [facility] Hematocrit (Bld) [Volume fraction] 42.5 % 34.9 - 44.3 % [facility] Hemoglobin (Bld) [Mass/Vol] 14.3 g/dL 11.4 - 15.2 g/dL [facility] Immature granulocytes (Bld) [#/Vol] K/uL NINF - 0.08 K/uL [facility] Immature granulocytes/100 WBC (Bld) 0.3 % [facility] Lymphocytes (Bld) [#/Vol] 3.42 10*3/uL 1.16 - 3.51 K/uL [facility] Lymphocytes/100 WBC (Bld) 32.9 % [facility] MCH (RBC) [Entitic mass] 31.1 pg 25. 9 - 33.9 pg [facility] MCHC (RBC) [Mass/Vol] 33.6 g/dL 31.4 - 35.9 g/dL [facility] MCV (RBC) [Entitic vol] 92.4 fL 79.6 - 97.7 fL [facility] Monocytes (Bld) [#/Vol] 0.62 10*3/uL 0.22 - 0.87 K/uL [facility] Monocytes/100 WBC (Bld) 6.0 % [facility] Neutrophils (Bld) [#/Vol] 6.14 10*3/uL 1.64 - 7.28 K/uL [facility] Nucleated RBC/100 WBC (Bld) [Ratio] 0.0 % [facility] Platelet mean volume (Bld) [Entitic vol] 10.8 fL 8.5 - 12.2 fL [facility] Platelets (Bld) [#/Vol] 326 10*3/uL 150 - 393 K/uL [facility] RBC (Bld) [#/Vol] 4.60 10*6/uL [facility] Segmented neutrophils/100 WBC (Bld) 59.1 % [facility] WBC (Bld) [#/Vol] 10.38 10*3/uL 3.99 - 11.19 K/uL [facility] HCG ( test) Ql (U)O rdered By: Jamil Santos on 01-09-2023 Beta HCG ( test) Ql Negative Negative [facility] Interpretation and review of laboratory results Normal [facility] PT,INR,PTTon 01-09-2023 aPTT Coag (PPP) [Time] 31.1 s OS [facility] INR Coag (Bld) [Relative time] 1.0 {INR} 0.9 - 1.1 [facility] Interpretation and review of laboratory results Normal [facility] PT Coag (PPP) [Time] 13.0 s [facility] SCREEN: MRSA/MSSAOrdered By: Alexandra Slater on 01-09-2023 Interpretation and review of laboratory results Abnormal [facility] Methicillin Resistant S. Aureus By Pcr Negative Negative [facility] Staphylococcus Aureus By Pcr Positive Abnormal Negative [facility] This test was perfor med using a [...] by the Clinical Microbiology Laboratory at [facility]. It has not been cleared or approved by the FDA.The laboratory is regulated under CLIA as qualified to perform high-complexity testing. This test is used for clinical purposes. It should not be regarded as investigational or for research. [facility] XR Cervical and thoracic and lumbar [...] IMPRESSION: Intact vagus nerve stimulator as described. [facility] Radiology Study observation (narrative) [facility] XR Cervical and thoracic and lumbar spine ViewsOrdered By: Alice Crespo on 01-09-2023 U [facility] Work Phone: [phone] PROGESTERONEon 05-24-2022 Progesterone 5.5 ng/mL Normal [facility] Comment on above: Result Comment: Foll icular phase 0.1 - 0.9 Luteal phase 1.8 - 23.9 Ovulation phase 0.1 - 12.0 First trimester 11.0 - 44.3 Second trimester 25.4 - 83.3 Third trimester 58.7 - 214.0 Postmenopausal 0.0 - 0.1 Performed By: #### P DANIEL #### [facility] [address] [place] [address] Dr. Nicol Oswald LAMOTRIGINEon 05-02-2022 Lamotrigine, Serum 4.7 ug/mL Normal 2.0-20.0 [facility] Comment on above: Result Comment: Dete ction Limit = 1.0 Performed By: #### P ROGES #### [facility] [address] [place] [address] Dr. Nicol Oswald CBC AUTO DIFFon 04-30-2022 BASO # 0.0 103/ul Normal 0.0-0.1 [facility] Comment on above: Performed By: #### C BC #### [facility] [address] [place] [address] Dr. Nicol Oswald Basophils/100 WBC (Bld) 0.4 % Normal 0.2-2.0 [facility] Comment on above: Performed By: #### C BC #### [facility] [address] [place] [address] Dr. Nicol Oswald EO # 0.2 103/ul Normal 0.0-0.7 [facility] Comment on above: Performed By: #### C BC #### [facility] [address] [place] [address] Dr. Nicol Oswald Eosinophils/100 WBC (Bld) 1.9 % Normal 0.9-7.0 [facility] Comment on above: Performed By: #### C BC #### [facility] [address] [place] [address] Dr. Nicol Oswald Erythrocyte distribution width (RBC) [Ratio] 12.8 % Normal 11.0-15.0 [facility] Comment on above: Performed By: #### C BC #### [facility] [address] [place] [address] Dr. Nicol Oswald Hematocrit (Bld) [Volume fraction] 40.4 % Normal 36.0-48.0 [facility] Comment on above: Performed By: #### C BC #### [facility] [address] [place] [address] Dr. Nicol Oswald Hemoglobin (Bld) [Mass/Vol] 13.6 g/dL Normal 12.0-16.0 [facility] Comment on above: Performed By: #### C BC #### [facility] [address] [place] [address] Dr. Nicol Oswald IG # 0.03 10e3/ul Normal 0.00-0.03 [facility] Comment on above: Performed By: #### C BC #### [facility] [address] [place] [address] Dr. Nicol Oswald IG % 0.4 % Normal 0.0-0.5 [facility] Comment on above: Performed By: #### C BC #### [facility] [address] [place] [address] Dr. Nicol Oswald LYMPH # 3.1 103/ul Normal 1.2-3.8 [facility] Comment on above: Performed By: #### C BC #### [facility] [address] [place] [address] Dr. Nicol Oswald Lymphocytes/100 WBC (Bld) 36.4 % Normal 20.5-60.0 [facility] Comment on above: Performed By: #### C BC #### [facility] [address] [place] [address] Dr. Nicol Oswald MANUAL DIFF REQ NO Normal [facility] Comment on above: Performed By: #### C BC #### [facility] [address] [place] [address] Dr. Nicol Oswald MCH (RBC) [Entitic mass] 31.0 pg Normal 26.7-34.0 [facility] Comment on above: Performed By: #### C BC #### [facility] [address] [place] [address] Dr. Nicol Oswald MCHC (RBC) [Mass/Vol] 33.7 g/dL Normal 29.9-35.2 [facility] Comment on above: Performed By: #### C BC #### [facility] [address] [place] [address] Dr. Nicol Oswald MCV (RBC) [Entitic vol] 92.0 fL Normal 81.0-99.0 [facility] Comment on above: Performed By: #### C BC #### [facility] [address] [place] [address] Dr. Nicol Oswald MONO # 0.7 103/ul Normal 0.3-0.8 [facility] Comment on above: Performed By: #### C BC #### [facility] [address] [place] [address] Dr. Nicol Oswald Monocytes/100 WBC (Bld) 7.7 % Normal 1.7-12.0 [facility] Comment on above: Performed By: #### C BC #### [facility] [address] [place] [address] Dr. Nicol Oswald NEUT # 4.5 103/ul Normal 1.4-6.5 [facility] Comment on above: Performed By: #### C BC #### [facility] [address] [place] [address] Dr. Nicol Oswald Neutrophils/100 WBC (Bld) 53.2 % Normal 43.0-75.0 [facility] Comment on above: Performed By: #### C BC #### [facility] [address] [place] [address] Dr. Nicol Oswald Platelet mean volume (Bld) [Entitic vol] 11.0 fL Normal 9.5-13.5 [facility] Comment on above: Performed By: #### C BC #### [facility] [address] [place] [address] Dr. Nicol Oswald PLT 282 103/ul Normal 150-450 [facility] Comment on above: Performed By: #### C BC #### [facility] [address] [place] [address] Dr. Nicol Oswald RBC 4.39 106/ul Normal 4.20-5.40 [facility] Comment on above: Performed By: #### C BC #### [facility] [address] [place] [address] Dr. Nicol Oswald WBC 8.4 103/ul Normal 4.0-11.0 [facility] Comment on above: Performed By: #### C BC #### [facility] [address] [place] [address] Dr. Nicol Oswald LIVER PROFILEon 04-30-2022 Albumin [Mass/Vol] 4.1 g/dL Normal 3.4-5.0 [facility] Comment on above: Performed By: #### P ROGES #### [facility] [address] [address] [address] Nicol Oswald Albumin/Globulin [Mass ratio] 1.2 {ratio} Normal [facility] Comment on above: Performed By: #### P JASONES #### [facility] [address] [address] [address] Nicol Oswald ALP [Catalytic activity/Vol] 52 U/L Normal 46-116 [facility] Comment on above: Performed By: #### P ROGES #### [facility] [address] [address] [address] Nicol Oswald ALT [Catalytic activity/Vol] 23 U/L Normal 14-59 [facility] Comment on above: Performed By: #### P JASONES #### [facility] [address] [place] [address] Dr. Nicol Oswald AST [Catalytic activity/Vol] 17 U/L Normal 15-37 [facility] Comment on above: Performed By: #### P JASONES #### [facility] [address] [address] [address] Nicol Oswald BILI, CONJUGATED 0.1 mg/dL Normal 0.0-0.2 [facility] Comment on above: Performed By: #### P JASONES #### [facility] [address] [place] [address] Dr. Nicol Oswald Bilirubin [Mass/Vol] 0.2 mg/dL Normal 0.2-1.0 [facility] Comment on above: Performed By: #### P ROGES #### [facility] [address] [address] [address] Nicol Oswald Globulin (S) [Mass/Vol] 3.4 g/dL Normal [facility] Comment on above: Performed By: #### P ROGES #### [facility] [address] [address] [address] Nicol Oswald Protein [Mass/Vol] 7.5 g/dL Normal 6.4-8.2 [facility] Comment on above: Performed By: #### P JASONES #### [facility] [address] [address] [address] Nicol Oswald PROF CHEM 8 (BAS METB)on Anion gap [Moles/Vol] 8.5 mmol/L Normal [facility] Comment on above: Performed By: #### P ROGES #### [facility] [address] [place] [address] Dr. Nicol Oswald Calcium [Mass/Vol] 9.4 mg/dL Normal 8.5-10.1 [facility] Comment on above: Performed By: #### P ROGES #### [facility] [address] [address] [address] Nicol Oswald Chloride [Moles/Vol] 102 mmol/L Normal 98-107 [facility] Comment on above: Performed By: #### P ROGES #### [facility] [address] [place] [address] Dr. Nicol Oswald CO2 [Moles/Vol] 30.4 mmol/L Normal 21.0-32.0 [facility] Comment on above: Performed By: #### P ROGES #### [facility] [address] [place] [address] Dr. Nicol Oswald Creatinine [Mass/Vol] 0.57 mg/dL Normal 0.55-1.02 [facility] Comment on above: Performed By: #### P ROGES #### [facility] [address] [place] [address] Dr. Nicol Oswald EGFR-AF BOLIVIAN >60 Normal >=60 [facility] Comment on above: Performed By: #### P ROGES #### [facility] [address] [address] [address] Nicol Oswald EGFR-NON AF BOLIVIAN >60 Normal >=60 [facility] Comment on above: Performed By: #### P ROGES #### [facility] [address] [place] [address] Dr. Nicol Oswald Glucose [Mass/Vol] 89 mg/dL Normal 74-106 [facility] Comment on above: Performed By: #### P ROGES #### [facility] [address] [place], [place] [address] Dr. Nicol Oswald Potassium [Moles/Vol] 3.9 mmol/L Normal 3.5-5.1 [facility] Comment on above: Performed By: #### P DANIEL #### [facility] [address] [place], [place] [address] Dr. Nicol Oswald Sodium [Moles/Vol] 137 mmol/L Normal 136-145 [facility] Comment on above: Performed By: #### P DANIEL #### [facility] [address] [address] [address] Nicol Oswald Urea nitrogen [Mass/Vol] 10.0 mg/dL Normal 7.0-18.0 [facility] Comment on above: Performed By: #### P DANIEL #### [facility] [address] [address] [address] Nicol Oswald Urea nitrogen/Creatinine [Mass ratio] 17.5 mg/mg Normal [facility] Comment on above: Performed By: #### P DANIEL #### [facility] [address] [address] [address] Nicol Oswald ESTROGENon 04-19-2022 Estrogens, Total 124 pg/mL Normal [facility] Comment on above: Result Comment: Prep ubertal < 40 Female Cycle: 1-10 Days 16 - 328 11-20 Days 34 - 501 21-30 Days 48 - 350 Post-Menopausal 40 - 244 Performed By: #### E KYLIE #### [facility] [address] [address] [address] Nicol Oswald DHEA SERUMon 04-18-2022 Dehydroepiandrosterone (DHEA) 371 ng/dL Normal 31-701 [facility] Comment on above: Result Comment: Age [...] 89 Performed By: #### P DANIEL #### [facility] [id number] Nicol Oswald DHEA-SULFATEon 04-16-2022 DHEA-Sulfate 371.0 ug/dL Normal 84.8-378.0 [facility] Comment on above: Performed By: #### P DANIEL #### [facility] [address] [place] [address] Dr. Nicol Oswald FSHon 04-16-2022 FSH 5.6 mIU/mL Normal [facility] Comment on above: Result Comment: Adul t Female: Follicular phase 3.5 - 12.5 Ovulation phase 4.7 - 21.5 Luteal phase 1.7 - 7.7 Postmenopausal 25.8 - 134.8 Performed By: #### P DANIEL #### [facility] [address] [place] [address] Dr. Nicol Oswald LUTEINIZING HORMONE (LH)on 0 04-16-2022 LH 12.9 mIU/mL Normal [facility] Comment on above: Result Comment: Adul t Female: Follicular phase 2.4 - 12.6 Ovulation phase 14.0 - 95.6 Luteal phase 1.0 - 11.4 Postmenopausal 7.7 - 58.5 Performed By: #### P DANIEL #### [facility] [address] [place] [address] Dr. Nicol Oswald PROGESTERONEon 04-16-2022 Progesterone 0.2 ng/mL Normal [facility] Comment on above: Result Comment: Foll icular phase 0.1 - 0.9 Luteal phase 1.8 - 23.9 Ovulation phase 0.1 - 12.0 First trimester 11.0 - 44.3 Second trimester 25.4 - 83.3 Third trimester 58.7 - 214.0 Postmenopausal 0.0 - 0.1 Performed By: #### P DANIEL #### [facility] [address] [address] [address] Nicol Oswald PROLACTINon 04-16-2022 Prolactin 7.1 ng/mL Normal 4.8-23.3 [facility] Comment on above: Performed By: #### P ROLAC #### [facility] [address] [place] [address] Dr. Nicol Oswald US PELVIS AND TRANSVAGon [...] CYDNEY VALDEZ Date: 2022-04-16 08:48 Normal [facility] CBC AUTO DIFFon 04-15-2022 BASO # 0.0 103/ul Normal 0.0-0.1 [facility] Comment on above: Performed By: #### C BC #### [facility] [address] [place] [address] Dr. Nicol Oswald Basophils/100 WBC (Bld) 0.5 % Normal 0.2-2.0 [facility] Comment on above: Performed By: #### C BC #### [facility] [address] [place] [address] Dr. Nicol Oswald EO # 0.2 103/ul Normal 0.0-0.7 [facility] Comment on above: Performed By: #### C BC #### [facility] [address] [place] [address] Dr. Nicol Oswald Eosinophils/100 WBC (Bld) 2.1 % Normal 0.9-7.0 [facility] Comment on above: Performed By: #### C BC #### [facility] [address] [place] [address] Dr. Nicol Oswald Erythrocyte distribution width (RBC) [Ratio] 12.5 % Normal 11.0-15.0 [facility] Comment on above: Performed By: #### C BC #### [facility] [address] [place] [address] Dr. Nicol Oswald Hematocrit (Bld) [Volume fraction] 44.7 % Normal 36.0-48.0 [facility] Comment on above: Performed By: #### C BC #### [facility] [address] [place] [address] Dr. Nicol Oswald Hemoglobin (Bld) [Mass/Vol] 14.3 g/dL Normal 12.0-16.0 [facility] Comment on above: Performed By: #### C BC #### [facility] [address] [place] [address] Dr. Nicol Oswald IG # 0.01 10e3/ul Normal 0.00-0.03 [facility] Comment on above: Performed By: #### C BC #### [facility] [address] [place] [address] Dr. Nicol Oswald IG % 0.1 % Normal 0.0-0.5 [facility] Comment on above: Performed By: #### C BC #### [facility] [address] [place] [address] Dr. Nicol Oswald LYMPH # 2.0 103/ul Normal 1.2-3.8 [facility] Comment on above: Performed By: #### C BC #### [facility] [address] [place] [address] Dr. Nicol Oswald Lymphocytes/100 WBC (Bld) 26.0 % Normal 20.5-60.0 [facility] Comment on above: Performed By: #### C BC #### [facility] [address] [place] [address] Dr. Nicol Oswald MANUAL DIFF REQ NO Normal [facility] Comment on above: Performed By: #### C BC #### [facility] [address] [place] [address] Dr. Nicol Oswald MCH (RBC) [Entitic mass] 30.8 pg Normal 26.7-34.0 [facility] Comment on above: Performed By: #### C BC #### [facility] [address] [place] [address] Dr. Nicol Oswald MCHC (RBC) [Mass/Vol] 32.0 g/dL Normal 29.9-35.2 [facility] Comment on above: Performed By: #### C BC #### [facility] [address] [place] [address] Dr. Nicol Oswald MCV (RBC) [Entitic vol] 96.3 fL Normal 81.0-99.0 [facility] Comment on above: Performed By: #### C BC #### [facility] [address] [place] [address] Dr. Nicol Oswald MONO # 0.6 103/ul Normal 0.3-0.8 [facility] Comment on above: Performed By: #### C BC #### [facility] [address] [place] [address] Dr. Nicol Oswald Monocytes/100 WBC (Bld) 7.3 % Normal 1.7-12.0 [facility] Comment on above: Performed By: #### C BC #### [facility] [address] [place] [address] Dr. Nicol Oswald NEUT # 4.9 103/ul Normal 1.4-6.5 [facility] Comment on above: Performed By: #### C BC #### [facility] [address] [place] [address] Dr. Nicol Oswald Neutrophils/100 WBC (Bld) 64.0 % Normal 43.0-75.0 [facility] Comment on above: Performed By: #### C BC #### [facility] [address] [place] [address] Dr. Nicol Oswald Platelet mean volume (Bld) [Entitic vol] 11.3 fL Normal 9.5-13.5 [facility] Comment on above: Performed By: #### C BC #### [facility] [address] [place] [address] Dr. Nicol Oswald PLT 302 103/ul Normal 150-450 [facility] Comment on above: Performed By: #### C BC #### [facility] [address] [place] [address] Dr. Nicol Oswald RBC 4.64 106/ul Normal 4.20-5.40 [facility] Comment on above: Performed By: #### C BC #### [facility] [address] [place] [address] Dr. Nicol Oswald WBC 7.7 103/ul Normal 4.0-11.0 [facility] Comment on above: Performed By: #### C BC #### [facility] [address] [place] [address] Dr. Nicol Oswald FREE T4on 04-15-2022 Free T4 [Mass/Vol] 0.80 ng/dL Normal 0.76-1.46 [facility] [place] [facility] Comment on above: Performed By: #### F T4 #### [facility] [address] [place] [address] Dr. Nicol Oswald GLYCOHEMOGLOBIN A1Con 2022 ADA RECOMMENDATION SEE BELOW Normal [facility] Comment on above: Result Comment: ADA RECOMMENDED LIMIT 4.0 - 6.0 ADA THERAPEUTIC TARGET < 7.0 ACTION SUGGESTED > 7.0 Performed By: #### A 1C #### [facility] [address] [place] [address] Dr. Nicol Oswald Glucose [Mass/Vol] 114 mg/dL Normal [facility] [place] [facility] Comment on above: Performed By: #### A 1C #### [facility] [address] [place] [address] Dr. Nicol Oswald HbA1c (Bld) [Mass fraction] 5.6 % Normal 4.5-6.2 [facility] Comment on above: Performed By: #### A 1C #### [facility] [address] [place] [address] Dr. Nicol Oswald PREG QUANT HCGon 04-15-2022 HCG QUANT <1 Normal [facility] Comment on above: Performed By: #### P REGQNT, TSH #### [facility] [address] [place] [address] Dr. Nicol Oswald HCG RANGE SEE BELOW [facility] Comment on above: Result Comment: 5-50 0.2-1 WEEK 50-500 1-2 WEEKS 100-5,000 2-3 WEEKS 500-10,000 3-4 WEEKS 1,000-50,000 4-5 WEEKS 10,000-100,000 5-6 WEEKS 15,000-200,000 6-8 WEEKS 10,000-100,000 2-3 MONTHS Performed By: #### P REGQNT, TSH #### [facility] [address] [address] [address] Nicol Oswald TSHon 04-15-2022 TSH 1.312 uIU/mL Normal 0.358-3.740 [facility] Comment on above: Performed By: #### P REGQWES, TSH #### [facility] [address] [place] [address] Dr. Nicol Oswald PAP ACOG PANEL 2: 21 to 31on 08-31-2021 . . Normal [facility] Comment on above: Performed By: #### P ROGES #### [facility] [address] [place] [address] Dr. Nicol Oswald Age Gdln ACOG Testing - [facility] Comment on above: Performed By: #### P ROGES #### [facility] [address] [place] [address] Dr. Nicol Oswald DIAGNOSIS: Comment [facility] Comment on above: Result Comment: NEGA TIVE FOR INTRAEPITHELIAL LESION OR MALIGNANCY. THIS SPECIMEN WAS RESCREENED PART OF OUR MARKET [employer]EARCH INTERN PROGRAM. Performed By: #### P ROGES #### [facility] [address] [place] [address] Dr. Nicol Oswald Methodology: Comment [facility] Comment on above: Result Comment: This liquid based ThinPrep(R) pap test was screened with the use of an image guided system. Performed By: #### P ROGES #### [facility] [address] [place] [address] Dr. Nicol Oswald Note: Comment [facility] Comment on above: Result Comment: The Pap smear is a screening test designed to aid in the detection of premalignant and malignant conditions of the uterine cervix. It is not a diagnostic procedure and should not be used as the sole means of detecting cervical cancer. Both false-positive and false-negative reports do occur. . Performed By: #### P DANIEL #### [facility] [address] [address] [address] Nicol Oswald Performed by: Comment Normal [facility] Comment on above: Result Comment: Mireille Blanco, Hot Saw Helper (ASCP) Performed By: #### P JASONES #### [facility] [address] [address] [address] Nicol Oswald QC reviewed by: Comment Normal [facility] Comment on above: Result Comment: Tahira Roque, Hot Saw Helper (ASCP) Performed By: #### P DANIEL #### [facility] [address] [place] [address] Dr. Nicol Oswald Reflex Criteria: Comment Normal [facility] Comment on above: Result Comment: The HPV DNA reflex criteria were not met with this specimen result therefore, no HPV testing was performed. . Performed By: #### P DANIEL #### [facility] [address] [address] [address] Nicol Oswald Specimen adequacy: Comment Normal [facility] Comment on above: Result Comment: Sati sfactory for evaluation. Endocervical and/or squamous metaplastic cells (endocervical component) are present. Performed By: #### P DANIEL #### [facility] [address] [address] [address] Nicol Oswald CBC Auto Diff Reflex Manualo n 02-18-2019 Automated Absolute Neutrophil 5.73 10*3/mm3 Normal [facility] Comment on above: Result Comment: Auto mated Absolute Neutrophil Count (ANC) is directly measured using a hematology instrument. ANC determined from manual differential cell count may differ. No [facility] reference range has been validated for this assay. Performed By: #### C D #### Performed at [facility], [address] [place] [address] Basophil 0.5 % Normal 0.0-1.0 [facility] Comment on above: Performed By: #### C D #### [place] [address] Differential Type Automated Normal [facility] Comment on above: Performed By: #### C D #### [place] [address] Eosinophil 1.6 % Normal 1.0-4.0 [facility] Comment on above: Performed By: #### C D #### [place] [address] Erythrocyte distribution width (RBC) [Ratio] 13.4 % Normal 10-14.1 [facility] Comment on above: Performed By: #### C D #### [place] [address] Lymphocyte 22.6 % Low 24.0-44.0 [facility] Comment on above: Performed By: #### C D #### [place] [address] MCH (RBC) [Entitic mass] 30.7 pg Normal 26-34 [facility] Comment on above: Performed By: #### C D #### [place] [address] MCHC (RBC) [Mass/Vol] 33.2 % Normal 31.0-37.0 [facility] Comment on above: Performed By: #### C D #### [place] [address] MCV (RBC) [Entitic vol] 92.4 fL Normal 80-100 [facility] Comment on above: Performed By: #### C D #### [place] [address] Monocyte 8.2 % High 1.0-7.0 [facility] Comment on above: Performed By: #### C D #### [place] [address] Neutrophil 67.1 % Normal 41.0-77.0 [facility] Comment on above: Performed By: #### C D #### Performed at [address] [address] Platelet mean volume (Bld) [Entitic vol] 11.5 fL Normal 9.3-13.0 [facility] Comment on above: Performed By: #### C D #### Performed at [address] [address] Platelets (Bld) [#/Vol] 268 10*3/uL Normal 140-440 [facility] Comment on above: Performed By: #### C D #### Performed at [address] [address] RBC (Bld) [#/Vol] 4.60 10*6/uL Normal 4.0-5.2 [facility] Comment on above: Performed By: #### C D #### Performed at [address] [address] WBC (Bld) [#/Vol] 8.6 10*3/uL Normal 4.5-[address] [facility] Comment on above: Performed By: #### Ruiz D #### Performed at [address] [address] Comprehensive Metabolic Pane mehran 02-18-2019 Albumin [Mass/Vol] 4.7 g/dL Normal 3.4-5.[address] [facility] ALP [Catalytic activity/Vol] 47 U/L Low 50-136 [facility] ALT [Catalytic activity/Vol] 32 U/L Normal <40 [facility] AST [Catalytic activity/Vol] 29 U/L Normal 15-50 [facility] Bilirubin Ql (U) 0.2 mg/dL Normal 0.1-1.0 [facility] Calcium [Mass/Vol] 9.8 mg/dL Normal 8-10.[address] [facility] Chloride [Moles/Vol] 104 mmol/L Normal 95-106 [facility] CO2 [Moles/Vol] 25 mmol/L Normal 24-35 [facility] Creatinine [Mass/Vol] 0.52 mg/dL Normal 0.5-1 [facility] Glucose [Mass/Vol] 135 mg/dL High 60-[address] [facility] Potassium [Moles/Vol] 4.5 mmol/L Normal 3.7-5.3 [facility] Protein [Mass/Vol] 8.0 g/dL Normal 6.4-8.[address] [facility] Sodium [Moles/Vol] 140 mmol/L Normal 135-[address] [facility] Urea nitrogen [Mass/Vol] 15 mg/dL Normal 5-18 [facility] Valproic Acidon 02-18-2019 Valproic Acid 47.1 ug/mL Low 50.0-100.0 [facility] PAP, THIN PREP WITH IMAGINGo n 06-29-2018 PAP, THIN PREP WITH IMAGING Normal [facility] Comment on above: Result Comment: INTE RPRETATION Thin Prep Image-Guided Pap Test (Cervical/Endocervical) NEGATIVE FOR INTRAEPITHELIAL LESION /MALIGNANCY Satisfactory for evaluation (Endocervical/transformation zone component present) [facility]/06/27/2018 The Pap test is a screening test, [...] 05/18/18 ICD-CM DIAGNOSIS CODE(S) Z01.419 [facility] [employer] Exam (general) (routine) W/o Abn Findings * * EFFECTIVE 06/08/2018 * * CLINICAL CHEMISTRY PLATFORM CHANGES ARE ASSOCIATED WITH * * REFERENCE RANGE CHANGES FOR A NUMBER OF ANALYTES. PLEASE * * REVIEW REFERENCE INTERVALS CAREFULLY * * [facility] [address] [address] CLIA No. [id number] CAP Accreditation No. [id number] Hand Booked Folder And Stitcher: Johnson Garland M.D. [facility] Accession Number: [id number] Performed By: #### P L PAP W/IMAGE #### [address] [address] [address] Nucleic-Acid Probe-Endoce rvical Swabon 06-24-2018 CT Nucleic-Acid Probe-Endocervical Swab Negative Normal NEGATIVE [facility] Comment on above: Performed By: #### G C Amp Endocerv, CT Amp Endocerv #### [address] [address] Age at specimen collection = Normal [facility] Comment on above: Performed By: #### G C Amp Endocerv, CT Amp Endocerv #### [address] [address] Performed By: #### P L PAP W/IMAGE #### [address] [address] GC Nucleic-Acid Probe-Endoce rvical Swabon 06-24-2018 GC Nucleic-Acid Probe-Endocervical Swab Negative Normal NEGATIVE [facility] Comment on above: Performed By: #### G C Amp Endocerv, CT Amp Endocerv #### [address] [address] Platelet Functionon 03-24-19 19 Collagen/ADP 148 sec High 67-112 [facility] Comment on above: Performed By: #### P FA #### [facility] [address] [place] [address] Collagen/EPI 228 sec High 85-172 [facility] Comment on above: Performed By: #### P FA #### [employer] [address] [place] [address] Interpretation Abnormal platelet function. Normal [facility] [...] established. Performed By: #### P FA #### [address] [address] XR ANKLE RIGHT STANDARDon XR ANKLE RIGHT STANDARD Radiology exam i s complete. No Radiologist dictation. Please follow up with ordering provider. Final result Normal [facility] Vital Signs Date Time Vital Sign Value Performing Clinician Facility 07-20-2024 11:33-0400 Body mass index (BMI) [Ratio] 34.52 kg/m2 [facility] DO Work Phone: [facility] 07-20-2024 11:33-0400 Body weight 89.81 kg Donovan Kimmie DO Work Phone: [facility] 07-20-2024 11:33-0400 Diastolic blood pressure 70 mm[Hg] [facility] DO Work Phone: [facility] 07-20-2024 11:33-0400 Systolic blood pressure 118 mm[Hg] Donovan Kimmie DO Work Phone: [facility] 09-24-2023 10:29-0400 Body height 170.18 cm [facility] 09-24-2023 10:29-0400 Body mass index (BMI) [Ratio] 30.2 kg/m2 [facility] 09-24-2023 10:29-0400 Body weight 87.54 kg [facility] 09-24-2023 10:29-0400 Diastolic blood pressure 78 mm[Hg] [facility] 09-24-2023 10:29-0400 Heart rate 67 /min [facility] 09-24-2023 10:29-0400 SaO2% (BldA) [Mass fraction] 98 % [facility] 09-24-2023 10:29-0400 Systolic blood pressure 112 mm[Hg] [facility] 08-21-2023 14:43-0400 Body height 161.3 cm Cori Maturu V, DO Work Phone: [facility] Comment on above: verbal 08-21-2023 14:43-0400 Body mass index (BMI) [Ratio] 34.59 kg/m2 Cori Maturu V, DO Work Phone: [facility] 08-21-2023 14:43-0400 Body temperature 98.29 [degF] Cori Maturu V, DO Work Phone: [facility] 08-21-2023 14:43-0400 Body weight 89.99 kg Cori Maturu V, DO Work Phone: [facility] 08-21-2023 14:43-0400 Diastolic blood pressure 76 mm[Hg] Cori Maturu V, DO Work Phone: [facility] 08-21-2023 14:43-0400 Heart rate 88 /min Cori Maturu V, DO Work Phone: [facility] 08-21-2023 14:43-0400 Systolic blood pressure 130 mm[Hg] Cori Maturu V, DO Work Phone: [facility] 07-07-2023 14:37-0400 Body height 170.18 cm [facility] 07-07-2023 14:37-0400 Body mass index (BMI) [Ratio] 30.8 kg/m2 [facility] 07-07-2023 14:37-0400 Body weight 89.35 kg [facility] 07-07-2023 14:37-0400 Diastolic blood pressure 78 mm[Hg] [facility] 07-07-2023 14:37-0400 Heart rate 81 /min [facility] 07-07-2023 14:37-0400 SaO2% (BldA) [Mass fraction] 98 % [facility] 07-07-2023 14:37-0400 Systolic blood pressure 112 mm[Hg] [facility] 05-28-2023 14:04-0400 Body height 161.3 cm ePtra Raoul MAINTENA[employer] SERVIC[employer] Work Phone: [facility] 05-28-2023 14:04-0400 Body mass index (BMI) [Ratio] 34.09 kg/m2 Crystal Raoul MAINTENANCE [employer]FIELD SERVICER Work Phone: [facility] 05-28-2023 14:04-0400 Body temperature 98.01 [degF] Crystal Raoul MAINTENANCE [employer]-FIELD SERVICER Work Phone: [facility] 05-28-2023 14:04-0400 Body weight 88.68 kg Petra Raoul MAINTENANCE MAN-FIELD SERVICER Work Phone: [facility] 05-28-2023 14:04-0400 Diastolic blood pressure 74 mm[Hg] Crystal Raoul MAINTENANCE [employer]-FIELD SERVICER Work Phone: [facility] 05-28-2023 14:04-0400 Heart rate 92 /min Petra Raoul MAINTENANCE MAN-FIELD SERVICER Work Phone: [facility] 05-28-2023 14:04-0400 Systolic blood pressure 122 mm[Hg] Crystal Raoul MAINTENANCE [employer]-FIELD SERVICER Work Phone: [facility] 04-22-2023 13:04-0500 Body mass index (BMI) [Ratio] 34 kg/m2 Donovan Kmimie DO Work Phone: [facility] 04-22-2023 13:04-0500 Body weight 88.45 kg Donovan Kimmie DO Work Phone: [facility] 04-22-2023 13:04-0500 Diastolic blood pressure 78 mm[Hg] Donovan Kimmie DO Work Phone: [facility] 04-22-2023 13:04-0500 Systolic blood pressure 120 mm[Hg] Donovan Kimmie DO Work Phone: [facility] 02-14-2023 15:48-0500 Body height 161.3 cm Crystal Raoul MAINTENANCE MAN-FIELD SERVICER Work Phone: [facility] Comment on above: verbal 02-14-2023 15:48-0500 Body mass index (BMI) [Ratio] 34.82 kg/m2 Crystal Raoul MAINTENANCE MAN-FIELD SERVICER Work Phone: [facility] 02-14-2023 15:48-0500 Body temperature 97.9 [degF] Crystal Raoul MAINTENANCE [employer]-FIELD SERVICER Work Phone: [facility] 02-14-2023 15:48-0500 Body weight 90.58 kg Crystal Raoul MAINTENANCE MAN-FIELD SERVICER Work Phone: [facility] 02-14-2023 15:48-0500 Diastolic blood pressure 79 mm[Hg] Crystal Raoul MAINTENANCE MAN-FIELD SERVICER Work Phone: [facility] 02-14-2023 15:48-0500 Heart rate 107 /min Crystal Raoul MAINTENANCE [employer]-FIELD SERVICER Work Phone: [facility] 02-14-2023 15:48-0500 Systolic blood pressure 133 mm[Hg] Crystal Raoul MAINTENANCE [employer]-FIELD SERVICER Work Phone: [facility] 01-15-2023 13:50-0500 Body temperature 97.5 [degF] Andi Smith MD Work Phone: [facility] 01-15-2023 13:50-0500 Diastolic blood pressure 79 mm[Hg] Andi Smith MD Work Phone: [facility] 01-15-2023 13:50-0500 Heart rate 78 /min Andi Smith MD Work Phone: [facility] 01-15-2023 13:50-0500 Respiratory rate 16 /min Andi Smith MD Work Phone: [facility] 01-15-2023 13:50-0500 SaO2% (BldA) [Mass fraction] 98 % Andi Smith MD Work Phone: [facility] 01-15-2023 13:50-0500 Systolic blood pressure 117 mm[Hg] Andi Smith MD Work Phone: [facility] 01-15-2023 07:50-0500 Body height 161.3 cm Andi Smith MD Work Phone: [facility] 01-15-2023 07:50-0500 Body mass index (BMI) [Ratio] 34.37 kg/m2 Andi Smith MD Work Phone: [facility] 01-15-2023 07:50-0500 Body weight 89.4 kg Andi Smith MD Work Phone: [facility] 01-09-2023 08:39-0400 Body height 161.3 cm Esau Gage PAC Work Phone: [facility] 01-09-2023 08:39-0400 Body mass index (BMI) [Ratio] 33.65 kg/m2 Esau Gage PAC Work Phone: [facility] 01-09-2023 08:39-0400 Body temperature 98.49 [degF] Esau Gage PAC Work Phone: [facility] 01-09-2023 08:39-0400 Body weight 87.54 kg Esau Gage PAC Work Phone: [facility] 01-09-2023 08:39-0400 Diastolic blood pressure 80 mm[Hg] Esau Gage PAC Work Phone: [facility] 01-09-2023 08:39-0400 Heart rate 81 /min Esau Gage PAC Work Phone: [facility] 01-09-2023 08:39-0400 Respiratory rate 18 /min Esau Gage PAC Work Phone: [facility] 01-09-2023 08:39-0400 SaO2% (BldA) [Mass fraction] 98 % Esau Gage PAC Work Phone: [facility] 01-09-2023 08:39-0400 Systolic blood pressure 134 mm[Hg] Esau Gage PAC Work Phone: [facility] 12-10-2022 10:53-0400 Body height 160 cm Andi Smith MD Work Phone: [facility] 12-10-2022 10:53-0400 Body mass index (BMI) [Ratio] 34.19 kg/m2 Andi Smith MD Work Phone: [facility] 12-10-2022 10:53-0400 Body weight 87.54 kg Andi Smith MD Work Phone: [facility] 12-10-2022 10:53-0400 Diastolic blood pressure 63 mm[Hg] Andi Smith MD Work Phone: [facility] 12-10-2022 10:53-0400 Heart rate 65 /min Andi Smith MD Work Phone: [facility] 12-10-2022 10:53-0400 Systolic blood pressure 125 mm[Hg] Andi Smith MD Work Phone: [facility] 11-08-2022 16:21-0400 Body height 160 cm Petra MORELOS Work Phone: [facility] Comment on above: verbal 11-08-2022 16:21-0400 Body mass index (BMI) [Ratio] 34.26 kg/m2 Petra Raoul MAINTENANCE MAN-FIELD SERVICER Work Phone: [facility] 11-08-2022 16:21-0400 Body temperature 99.1 [degF] Crystal Raoul MAINTENANCE [employer]-FIELD SERVICER Work Phone: [facility] 11-08-2022 16:21-0400 Body weight 87.73 kg Crystal Raoul MAINTENANCE MAN-FIELD SERVICER Work Phone: [facility] 11-08-2022 16:21-0400 Diastolic blood pressure 71 mm[Hg] Crystal Raoul MAINTENANCE MAN-FIELD SERVICER Work Phone: [facility] 11-08-2022 16:21-0400 Heart rate 97 /min Crystal Raoul MAINTENANCE MAN-FIELD SERVICER Work Phone: [facility] 11-08-2022 16:21-0400 Systolic blood pressure 116 mm[Hg] Crystal Raoul MAINTENANCE MAN-FIELD SERVICER Work Phone: [facility] 07-04-2021 09:38-0400 Body height 161.3 cm Petra Raoul MAINTENANCE MAN-FIELD SERVICER Work Phone: [facility] Comment on above: verbal 07-04-2021 09:38-0400 Body mass index (BMI) [Ratio] 36.23 kg/m2 Petra Raoul MAINTENANCE MAN-FIELD SERVICER Work Phone: [facility] 07-04-2021 09:38-0400 Body temperature 98.71 [degF] Crystal Raoul MAINTENANCE MAN[employer]FIELD SERVICER Work Phone: [facility] 07-04-2021 09:38-0400 Body weight 94.26 kg Petra Raoul MAINTENANCE MAN-FIELD SERVICER Work Phone: [facility] 07-04-2021 09:38-0400 Diastolic blood pressure 70 mm[Hg] Crystal Raoul MAINTENANCE MAN-FIELD SERVICER Work Phone: [facility] 07-04-2021 09:38-0400 Heart rate 73 /min Petra Silveira MAINTENANCE MAN-FIELD SERVICER Work Phone: [facility] 07-04-2021 09:38-0400 Systolic blood pressure 119 mm[Hg] Petra Silveira MAINTENANCE [employer]-FIELD SERVICER Work Phone: [facility] Encounters Encounter Date Encounter Type Care Provider Facility Start: 10-28-2024 End: 10-28-2024 Bamboo flowsheet Donovan Kimmie DO Work Phone: [facility] Start: 10-28-2024 End: 10-28-2024 Bamboo flowsheet Donovan Kimmie DO Work Phone: [facility] Start: 10-09-2024 End: 10-10-2024 Clinisync Result Encounter Donovan Kimmie DO Work Phone: [facility] Unsolicited Start: 10-09-2024 End: 10-10-2024 Clinisync Result Encounter Donovan Kimmie DO Work Phone: [facility] Unsolicited Start: 10-01-2024 End: 10-01-2024 Telephone encounter Kit Caicedo MD Work Phone: [facility] Comment on above: LMTCB Start: 10-01-2024 End: 10-01-2024 Office outpatient visit 15 minutes Kit Caicedo MD Work Phone: [facility] Comment on above: General counseling a nd advice for procreative management (Primary Dx); Polycystic ovarian syndrome Start: 10-01-2024 End: 10-01-2024 ambulatory KIT CAICEDO Facility:[facility] Start: 09-20-2024 End: 09-20-2024 E-mail encounter from caregiver [facility] Start: 09-20-2024 End: 09-20-2024 Patient encounter procedure [facility] Comment on above: [facility] Welcome Letter Start: 09-04-2024 End: 09-05-2024 Clinisync [...] Departed Referred Donovan Kimmie DO Work Phone: [facility] Start: 06-28-2024 Non-patient / Non-visit Donovan Kimmie DO Work Phone: [facility] Work Phone: Start: 06-28-2024 End: 06-30-2024 Clinisync Result Encounter Donovan Kimmie DO Work Phone: [facility] Unsolicited Start: 06-28-2024 End: 06-30-2024 Clinisync Result Encounter Donovan Kimmie DO Work Phone: [facility] Unsolicited Start: 06-07-2024 ambulatory CORI DENNIS Facility: [facility] Start: 05-26-2024 Non-patient / Non-visit Donovan Kimmie DO Work Phone: [facility] Work Phone: Start: 05-26-2024 End: [...] Not Available Start: 09-24-2023 End: 09-24-2023 ambulatory [facility] Work Phone: Start: 09-24-2023 End: 09-24-2023 Patient encounter procedure [facility] Work Phone: Start: 09-11-2023 Non-patient / Non-visit [facility] Work Phone: Start: 08-21-2023 End: 08-21-2023 Office outpatient visit 25 minutes Cori Dennis DO Work Phone: Neurology [facility] 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); Anxiety disorder, unspecified type Start: 08-21-2023 ambulatory [facility] Facility: [facility] Start: 08-08-2023 Non-patient / Non-visit [facility] Work Phone: Start: 07-09-2023 Non-patient / Non-visit [facility] Work Phone: Start: 07-07-2023 End: 07-07-2023 ambulatory [facility] Work Phone: Start: 07-07-2023 End: 07-07-2023 Patient encounter procedure [facility] Work Phone: Start: 06-27-2023 Non-patient / Non-visit [facility] Work Phone: Start: 06-08-2023 Non-patient / Non-visit [facility] Work Phone: Start: 05-28-2023 End: 05-28-2023 Office outpatient visit 25 minutes Petra Gordillo Raoul MAINTENANCE [employer]-FIELD SERVICER Work Phone: [facility] 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); Anxiety disorder, unspecified type Start: 05-09-2023 Non-patient / Non-visit [facility] Work Phone: Start: 04-22-2023 End: 04-22-2023 ambulatory DONOVAN KIMMIE Not Available Start: 04-22-2023 End: 04-22-2023 Office outpatient visit 15 minutes Donovan Kimmie DO Work Phone: [facility] Comment on above: Encounter for fertil ity planning Start: 02-14-2023 End: 02-14-2023 Office outpatient visit 25 minutes Petra Gordillo Raoul MAINTENANCE [employer]-FIELD SERVICER Work Phone: [facility] 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); 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 Start: 01-15-2023 End: 01-15-2023 Subsequent hospital visit by physician Andi Smith MD Work Phone: [facility] 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 [...] encounter status Esau Gage PAC Work Phone: [facility] Start: 01-09-2023 End: 01-09-2023 Subsequent hospital visit by physician Andi Smith MD Work Phone: Imaging [facility] Comment on above: Arrived Start: 12-10-2022 End: 12-10-2022 Office outpatient new 45 minutes Andi Smith MD Work Phone: [facility] 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) Start: 11-08-2022 End: 11-08-2022 Office outpatient visit 40 minutes Petra Silveira MAINTENANCE MAN-FIELD SERVICER Work Phone: [facility]rology [facility] Comment on above: [...] Office outpatient visit 25 minutes Petra Silveira MAINTENANCE MAN-FIELD SERVICER Work Phone: Neurology [facility] Comment on above: Generalized nonconvu lsive epilepsy (Primary Dx) Start: 06-24-2018 Encounter for gynecological examination (general) (routine) without abnormal findings NA NONE PER PATIENT [facility] Start: 06-24-2018 End: 06-24-2018 Patient encounter procedure GERARDO WARD Facility:[facility] Start: 05-25-2018 End: 05-25-2018 Patient encounter procedure . NONE PER PATIENT Facility:[facility] Start: 05-13-2018 End: 05-13-2018 Patient encounter procedure . NONE PER PATIENT Facility:[facility] Start: 03-23-2018 End: 03-24-2018 Patient encounter procedure [facility] Start: 03-20-2018 End: 03-21-2018 Patient encounter procedure [facility] Procedures Date Procedure Procedure Detail Performing Clinician Start: 10-09-2024 ALL PROGESTERONE Donovan Kimmie DO Work Phone: Start: 09-04-2024 ALL PROGESTERONE Donovan Kimmie DO [...] Start: 01-09-2023 CBC AND ELECTRONIC DIFF Esau Gage PAC Work Phone: Start: 01-09-2023 Complete blood count with white cell differential, automated Esau Gage PAC Work Phone: Start: 01-09-2023 Prothrombin time Esau Gage PAC Work Phone: Start: 01-09-2023 Radex spine cervical 2 or 3 views Andi Smith MD Work Phone: Start: 01-09-2023 Iadna s aureus ampli fied probe tq Esau Lion Gage PAC Work Phone: Start: 01-09-2023 Urine test visual color cmprsn meths Esau Lion Gage PAC Work Phone: Start: 02-18-2019 Blood count hematocrit Comment on above: Performed By: #### C D #### [place] [address] Start: 03-23-2018 PLATELET FUNCTION TEST JAMIL SMITH Plan of Treatment Date Care Activity Detail Author Start: 11-08-2024 Influenza [facility] Start: 10-28-2024 End: 10-28-2024 Patient encounter procedure [facility] Comment on above: Arrived Start: 10-01-2024 End: 10-01-2024 Patient encounter procedure 10/01/2024 10:00 AM EDT Office Visit [facility] [address] [place] [address] Kit Caicedo MD [address] [place], [place] [id number] Donovan Burks's office referring the patient to [...] EDT Office Visit [facility] [address] [facility] [address] Donovan Burks, DO [address] [place] [address] [facility] Start: 07-20-2024 [facility] Start: 01-22-2024 End: 01-22-2024 Patient encounter procedure 01/22/2024 9:15 AM EST Office Visit Neurology [facility] [address] [place] [phone] Cori Dia, DO [address] [place] [address] Neurology [facility] Start: 11-28-2023 End: 11-28-2023 Patient encounter procedure 11/28/2023 10:20 AM EDT Office Visit [facility] [address] [place], [place] [id number] Petra Silveira, MAINTENANCE MAN-FIELD SERVICER [address] [place] [phone] [facility] Start: 11-09-2023 COVID-19 VACCINE ( season) COVID-19 VACCINE ( season) [facility] Start: 11-09-2023 Covid-19 Vaccine ( season) Covid-19 Vaccine ( season) [facility] Start: 11-09-2023 Influenza vaccination [facility] Start: 08-21-2023 End: 08-21-2023 Patient encounter procedure 08/21/2023 2:45 PM EDT Office Visit Neurology [facility] [address] [facility] [address] [place] [phone] Cori Dia, DO [address] [place] [address] [facility]rology [facility] Start: 05-28-2023 End: 05-28-2023 Patient encounter procedure 05/28/2023 2:00 PM EDT Office Visit Neurology [facility] [address] [place] [phone] Petra Silveira, MAINTENANCE MAN-FIELD SERVICER [address] [place] [phone] [facility] Start: 02-14-2023 End: 02-14-2023 Patient encounter procedure [facility] Start: 01-15-2023 End: 01-15-2023 Admission to same day surgery center 01/15/2023 9:40 AM EST - 01/15/2023 11:50 AM EST Surgery [facility] [address] [place] [phone] Andi Smith MD [address] [place] [address] INSERTION REPLACEMENT NEUROSTIMULATOR GENERATOR CRANIAL/INTRACRANIAL [facility] Comment on above: INSERTION REPLACEMENT NEUROSTIMULATOR GE NERATOR CRANIAL/INTRACRANIAL Start: 01-15-2023 End: 01-15-2023 Insj/rplcmt cranial neurostim pulse generator INSERTION REPLACEMENT NEUROSTIMULATOR GENERATOR CRANIAL/INTRACRANIAL Jeavons syndrome 01/15/2023 9:40 AM EST [facility] Start: 01-15-2023 Subsequent hospital visit by physician 01/15/2023 9:40 AM EST Hospital Encounter [facility] [address] [place] [address] Andi Smith MD [address] [place] [address] Jeavons syndrome [facility] 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 Start: 12-10-2022 End: 12-11-2023 Radiographic imaging procedure XR STIMULATOR/INTRATHECAL PUMP Imaging Routine Jeavons syndrome Expected: 12/10/2022, Expires: 12/11/2023 [facility] Comment on above: Expected: 12/10/2022, Expires: Start: 12-10-2022 End: 12-10-2022 Patient encounter procedure 12/10/2022 11:30 AM EDT Office Visit [facility] [address] [place] [phone] Andi Smith MD [address] [facility] [place] [phone] [facility] Start: 11-08-2022 COVID-19 VACCINE ( season) COVID-19 VACCINE ( season) [facility] Start: 11-08-2022 Influenza vaccination INFLUENZA VACCINE (#1) [facility] Start: 01-04-2022 End: 01-04-2022 Patient encounter procedure 01/04/2022 Office Visit Neurology Cori Dia, DO [address] [place] [address] Neurology [facility] Start: 11-08-2021 Influenza vaccination INFLUENZA VACCINE (Season Ended) [facility] Start: 10-10-2021 End: 10-10-2021 Telemedicine consultation with patient 10/10/2021 Telemedicine Neurology Petra Silveira, MAINTENANCE MAN-FIELD SERVICER [address] [place] [address] Neurology [facility] Start: 08-15-2021 End: 08-15-2021 Telemedicine consultation with patient 08/15/2021 Telemedicine Neurology Petra Silveira, MAINTENANCE MAN-FIELD SERVICER [address] [place] [phone] Neurology [facility] Start: 2013 Screening for malignant neoplasm of cervix [facility] Start: 07-15-2011 Hepatitis B vaccination HEP B VACCINE (1 of 3 - 19+ 3-dose series) [facility] Start: 07-15-2011 Hepatitis B Vaccine (1 of 3 - 19+ 3-dose series) Hepatitis B Vaccine (1 of 3 - 19+ 3-dose series) [facility] Start: 07-15-2011 Third diphtheria, tetanus and acellular pertussis (DTaP) vaccination TDAP (ADULT) [facility] Start: 07-15-2011 Urine microalbumin profile DTaP,Tdap,Td Vaccine (1 - Tdap) [facility] Start: 2010 Anxiety Screening Anxiety Screening [facility] Start: 2010 Depression Screening Depression Screening [facility] Start: 2010 Hepatitis C screening Hepatitis C Screening [facility] Start: 2010 HIV screening HIV Screening [facility] Start: 2010 Tetanus vaccination TETANUS [facility] Start: 07-15-2007 HIV screening HIV SCREENING DISCUSSION [facility] Start: 1997 COVID-19 VACCINE (1) COVID-19 VACCINE (1) [facility] Start: 01-14-1993 COVID-19 VACCINE (#1) COVID-19 VACCINE (#1) [facility] Start: 1992 Hepatitis B vaccination HEP B VACCINE (1 of 3 - 3-dose series) [facility] Start: 1992 Hepatitis C antibody, confirmatory test HEPATITIS C VIRUS SCREENING [facility] Start: 1992 Hepatitis C screening HEPATITIS C VIRUS SCREENING [facility] Start: 1992 Tetanus vaccination TETANUS [facility] Ecg routine ecg w/le ast 12 lds w/i&r OK ELECTROCARDIOGRAM, COMPLETE OK - OFFICE PERFORMED Routine 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 Ordered: 01/09/2023 [facility] Comment on above: Ordered: 01/09/2023 Elec horace implt npgt phys/qhp w/o programming OK ELEC HORACE IMPLT NPGT PHYS/QHP W/O PROGRAMMING OK Charge Routine Jeavons syndrome Ordered: 09/09/2023 [facility] Comment on above: Ordered: 09/09/2023 Elec horace implt smpl cn npgt prgrmg OK ELEC HORACE IMPLT SMPL CN NPGT PRGRMG OK Charge Routine Jeavons syndrome Ordered: 11/14/2022 [facility] Comment on above: Ordered: 11/14/2022 Elec horace implt smpl cn npgt prgrmg OK ELEC HORACE IMPLT SMPL CN NPGT PRGRMG OK Charge Routine 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 Ordered: 03/12/2023 [facility] Comment on above: Ordered: 03/12/2023 Elec horace implt smpl cn npgt prgrmg OK ELEC HORACE IMPLT SMPL CN NPGT PRGRMG OK Charge Routine Jeavons syndrome Ordered: 06/21/2023 [facility] Comment on above: Ordered: 06/21/2023 Insj/rplcmt cranial neurostim pulse generator INSERTION REPLACEMENT NEUROSTIMULATOR GENERATOR CRANIAL/INTRACRANIAL Jeavons syndrome [facility] Noninvasive ear/puls e oximetry single deter OK NONINVASV OXYGEN SATUR; SINGLE OK - OFFICE PERFORMED Routine 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 Ordered: 01/09/2023 [facility] Comment on above: Ordered: 01/09/2023 Immunizations Immunization Date Immunization Notes Care Provider Lee shelton 01-04-2014 influenza, seasonal, injectable, preservative free Andi Smith MD Work Phone: [facility] 01-04-2014 influenza virus vaccine, unspecified formulation Petra MORELOS Work Phone: [facility] Payers Date Payer Category Payer Unknown [id number] 2021 Medicaid [id number] 2021 Private Health Insurance [facility]ICA[facility] [id number] 2016 Unknown [id number] 2016 Self-pay 2014 Unknown [id number] 1992 Unknown [id number] 2.16840.1.907027.3.579.2. 173 1992 Unknown [id number] 2.16840.1.790348.3.579.2. 173 1992 Unknown [id number] 2.16840.1.739670.3.579.2. 754 1992 Unknown [id number] 2.16840.1.756849.3.579.2. 754 1992 Unknown [id number] 2.16840.1.160630.3.579.2. 754 1992 Unknown [id number] 2.16840.1.637038.3.579.2. 754 1992 Unknown [id number] 2.16840.1.606714.3.579.2. 593 1992 Unknown [id number] 2.16840.1.217577.3.579.2. 593 1992 Unknown [id number] 2.16840.1.568109.3.579.2. 593 1992 Unknown [id number] 2.16840.1.642605.3.579.2. 593 1992 Unknown [id number] 2.16840.1.779966.3.579.2. 593 1992 Unknown [id number] 2.16840.1.151680.3.579.2. 1259 1992 Unknown [id number] 2.16.840.1.031604.3.579.2. 594 1992 Unknown [id number] 2.16.840.1.957520.3.579.2. 594 1992 Unknown [id number] 2.16.840.1.019980.3.579.2. 1259 1992 Unknown [id number] 2.16.840.1.361895.3.579.2. 9 1992 Unknown [id number] 2.16.840.1.384192.3.579.2. 1259 1959 Unknown [id number] 1959 Unknown [id number] Unknown [id number] 2.16.840.1.510080.3.579.2. 531 Social History Date Type Detail Facility Start: 10-28-2019 End: 09-11-2022 Tobacco smoking status [facility] Never smoked tobacco [facility] Start: 10-28-2019 End: 09-11-2022 Tobacco use and exposure Smokeless tobacco non-user [facility] Start: 10-28-2019 Alcohol intake Current drinker of alcohol (finding) [facility] Start: 10-28-2019 History SDOH Alcohol Frequency 2 [facility] Start: 10-28-2019 History SDOH Alcohol Comment rare wine [facility] Start: 10-28-2019 Education 17 [facility] Start: 1990 Sex Assigned At Not on file [facility] Start: 11-08-2022 End: 09-09-2023 Alcohol intake Ex-drinker (finding) [facility] Start: 10-28-2019 End: 10-20-2023 History of Social function [facility] Start: 10-28-2019 End: 10-20-2023 Alcohol Use Disorder Identification Test - Consumption [AUDIT-C] [facility] How often to you hav e a drink containing alcohol? Monthly or less [facility] Average Number of Drinks Not on file [facility] Start: 10-29-2019 Gender identity Identifies as female gender (finding) [facility] Start: 10-29-2019 Sexual orientation Heterosexual (finding) [facility] Start: 02-14-2023 Tobacco Comment Never [facility] Start: 02-14-2023 Alcohol Comment At most one or two drinks a month. [facility] Start: 04-22-2023 End: 07-20-2024 Alcohol intake Not Asked [facility] Start: 08-07-2022 Alcohol Comment Occasional alcohol use [facility] Start: 1990 Sex Assigned At Female [facility] Start: 07-22-2024 Sex Female (finding) [facility] Medical Equipment Procedure Code Equipment Code Equipment Origin al Text Equipment Identifier Dates Sentiva [id number] Start: 01-15-2023 Clinical Notes 07-04-2021 to 10-01-2024 Kit Caicedo MD - 10/01/2024 11:27 AM EDTTantiiKt diaz MD - 10/01/2024 11:27 AM EDTREI Plan Note - Kit Caicedo MD - 10/01/2024 11:26 AM EDT Note Date & Type Note Facility 10-01-2024 Progress note Formatting of t his note is different from the original. [facility] Date: 10/01/2024 Rowena Drake is a [...] of retrograde ejaculation considered. - Referred to [facility] urologists specializing in male infertility: Dr. Bull, Dr. Yu, or Dr. Arita. - Discussed use of special condom for semen collection available at [facility] urology department. - Advised scheduling a follow-up appointment after urological evaluation to discuss further reproductive management options, including IUI or IVF if necessary. This visit was conducted as a virtual visit via zoom. I have communicated my name and active licensure. The patient's identity and physical location were verified at the time of this visit. Either the patient or their legal in home sales representative has been informed of the risks and benefits of -- and alternatives to -- treatment through a remote evaluation and consents to proceed with the evaluation remotely. I spent a total of 20 minutes on the date of the service which included preparing to see the patient, adua-cv-ssqb patient care, completing clinical documentation, counseling and educating the patient/family/caregiver, ordering medications, tests, or procedures, communicating results to the patient/family/caregiver, and care coordination (not separately reported). The patient consented to the use of ambient Visiprise software for draft documentation of the visit consistent with [facility] s Notice of Privacy Practices. Wilda Yanez MD [facility] 10-01-2024 Consult note Formatting of th is note is different from the original. [facility] Date: 10/01/2024 Rowena Drake is [...] of retrograde ejaculation considered. - Referred to [facility] urologists specializing in male infertility: Dr. Bull, Dr. Yu, or Dr. Arita. - Discussed use of special condom for semen collection available at [facility] urology department. - Advised scheduling a follow-up appointment after urological evaluation to discuss further reproductive management options, including IUI or IVF if necessary. This visit was conducted as a virtual visit via zoom. I have communicated my name and active licensure. The patient's identity and physical location were verified at the time of this visit. Either the patient or their legal in home sales representative has been informed of the risks and benefits of -- and alternatives to -- treatment through a remote evaluation and consents to proceed with the evaluation remotely. I spent a total of 20 minutes on the date of the service which included preparing to see the patient, xiug-ep-onbj patient care, completing clinical documentation, counseling and educating the patient/family/caregiver, ordering medications, tests, or procedures, communicating results to the patient/family/caregiver, and care coordination (not separately reported). The patient consented to the use of ambient Visiprise software for draft documentation of the visit consistent with [facility] s Notice of Privacy Practices. Wilda Yanez MD documented in this encounter [facility] 10-01-2024 Plan of care note Rowena [...] of retrograde ejaculation considered. - Referred to [facility] urologists specializing in male infertility: Dr. Bull, Dr. Yu, or Dr. Duron. - Discussed use of special condom for semen collection available at [facility] urology department. - Advised scheduling a follow-up appointment after urological evaluation to discuss further reproductive management options, including IUI or IVF if necessary. This visit was conducted as a virtual visit via zoom. I have communicated my name and active licensure. The patient's identity and physical location were verified at the time of this visit. Either the patient or their legal in home sales representative has been informed of the risks and benefits of -- and alternatives to -- treatment through a remote evaluation and consents to proceed with the evaluation remotely. I spent a total of 20 minutes on the date of the service which included preparing to see the patient, aaox-cm-ghby patient care, completing clinical documentation, counseling and educating the patient/family/caregiver, ordering medications, tests, or procedures, communicating results to the patient/family/caregiver, and care coordination (not separately reported). The patient consented to the use of ambient Visiprise software for draft documentation of the visit consistent with [facility] s Notice of Privacy Practices. [facility] 10-01-2024 Miscellaneous Notes Rowena Drake is [...] of retrograde ejaculation considered. - Referred to [facility] urologists specializing in male infertility: Dr. Bull, Dr. Yu, or Dr. Duron. - Discussed use of special condom for semen collection available at [facility] urology department. - Advised scheduling a follow-up appointment after urological evaluation to discuss further reproductive management options, including IUI or IVF if necessary. This visit was conducted as a virtual visit via zoom. I have communicated my name and active licensure. The patient's identity and physical location were verified at the time of this visit. Either the patient or their legal in home sales representative has been informed of the risks and benefits of -- and alternatives to -- treatment through a remote evaluation and consents to proceed with the evaluation remotely. I spent a total of 20 minutes on the date of the service which included preparing to see the patient, cjpt-gy-ksjc patient care, completing clinical documentation, counseling and educating the patient/family/caregiver, ordering medications, tests, or procedures, communicating results to the patient/family/caregiver, and care coordination (not separately reported). The patient consented to the use of Department of Health and Human Services software for draft documentation of the visit consistent with [facility] s Notice of Privacy Practices. documented in this encounter [facility] 10-01-2024 Telephone encounter Note Left message for pt to return call to update fertility screening, partner information, etc. Angella Arellano MA October 01, 2024 11:14 AM [facility] 10-01-2024 Miscellaneous Notes Left message for pt to return call to update fertility screening, partner information, etc. Angella Arellano MA October 01, 2024 11:14 AM documented in this encounter [facility] 07-20-2024 History of Present illness Narrative [...] nursing note reviewed. Exam conducted with a chart collector present. Vitals: Estimated body mass index is [...] after allowing sufficient time to take affect. picker and packer and scissors used to remove affected area. Placed in formalin and sent to pathology. Post-procedure instructions given. Follow Up: As needed Documented by Rhonda Dubois LPN on behalf of: Donovan Burks DO documented in this encounter [facility] 11-19-2023 Telephone encounter Note Images from the original note were not included. Medication Access Team coordinated the following [facility]ics: MS/Neurology Prior Authorization Per the patient's insurance provider, [employer], the prior authorization for LAMOTRIGINE 300 (on-label) was approved. Authorization number: [id number] Authorization start date: 11/14/23 Authorization end date: 11/12/24 Non-Specialty Prescriptions: 1, 20-25 min Namrata Tony [facility] 11-19-2023 Miscellaneous Notes Images from the original note were not included. Medication Access Team coordinated the following [facility]: MS/Neurology Prior Authorization Per the patient's insurance provider, [facility], the prior authorization for LAMOTRIGINE 300 (on-label) was approved. Authorization number: [id number] Authorization start date: 11/14/23 Authorization end date: 11/12/24 Non-Specialty Prescriptions: 1, 20-25 min Namrata Tony documented in this encounter [facility] 11-14-2023 Telephone encounter Note Images from the original note were not included. *Documentation only- I did not speak with the patient. Received fax from [facility] stating PA is needed for Lamotrigine ER 300 mg tablets. Current auth expires 11/25/2023. [facility] 11-14-2023 Miscellaneous Notes Images from the original note were not included. *Documentation only- I did not speak with the patient. Received fax from [employer] stating PA is needed for Lamotrigine ER 300 mg tablets. Current auth expires 11/25/2023. documented in this encounter [facility] 08-21-2023 History of Present illness [...] 24 hours. 2 Each 0 Prenat MV-Min w/Ez-Tczzoi-SJG ( COMPLETE PO) Take 1 tablet by [...] AW Model ID Sentiva N1000 Serial # [id number] Implanted 03/27/2018 Communication Output Current Status Current [...] of questions or concerns. Cori Dennis DO Ban[employer] Department of Neurology, Epilepsy Division [facility] documented in this encounter [facility] 08-21-2023 Instructions Cori Meek DO [...] you can call the Neurology clinic at [phone]. If you have access through [facility], you can contact me through that system as well. documented in this encounter [facility] 05-28-2023 History of Present illness Narrative Images from the original note were not included. Rowena Drake was seen in the [facility] at [facility] on 05/28/2023. She is here today for [...] 24 hours. 2 Each 0 Prenat MV-Min w/Kq-Ybzomf-BUC ( COMPLETE PO) Take 1 tablet by [...] your epilepsy that we offer at the [facility]? Yes If you have tried 2 or 3 anti-seizure medications and your seizures are still not controlled, are you interested in learning about surgical options for your epilepsy that we can offer at the [facility]? No Neurological Disorders Depression Inventory for [...] 01/15/2023 Model Number 1000 1000 Serial Number [id number] Output Current (mA) 2.5 mA 2.25 mA [...] tolerated her VNS changes today. 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 She will return in [address] Dennis or sooner if clinically indicated. Signed, Petra Silveira MSN, MAINTENANCE MAN-FIELD SERVICER [facility] Department of Neurology - Epilepsy Division [address] [place] [address] - 7th floor [place] [address] Pager: [phone] I spent a total of 35 minutes on the date of the service which included preparing to see the patient, bzrq-rx-utgk patient care, completing clinical documentation, performing a medically appropriate examination and counseling and educating the patient/family/caregiver. Note to patient: The Cures Act makes medical notes like these available to patients in the interest of transparency. However, be advised this is a medical document. It is intended as ikpn-xi-bdxp communication. It is written in medical language and may contain abbreviations or verbiage that are unfamiliar. It may appear blunt or direct. Medical documents are intended to carry relevant information, facts as evident, and the clinical opinion of the practitioner. documented in this encounter [facility] 04-22-2023 History of Present illness [...] nursing note reviewed. Exam conducted with a chart collector present. Vitals: Estimated body mass index is [...] Donovan Burks DO documented in this encounter [facility] 02-14-2023 History of Present illness Narrative Images from the original note were not included. Rowena Byers was seen in the [facility]psy [facility] at [facility] on 02/14/2023. She is here today for a follow-up in clinic accompanied by her , Pedro. She was last seen on 04/19/[address] Cori Dennis DO and with [place] 11/08/2022. History of Present Illness INTERVAL HISTORY: [...] 24 hours. 2 Each 0 Prenat MV-Min w/Mk-Bkejde-SXA ( COMPLETE PO) Take 1 tablet by [...] ID ABW Model ID SenTiva Serial # [id number] Implanted 01/15/2023 Communication OK Output Current Status [...] VNS Simple Reprogramming (1-3 changes) CPT code 84512 Assessment and Plan Assessment: Rowena is a [...] longer than 5 minutes. Encouraged use of Peg Bandwidth to send messages to provider as needed for questions and concerns or can call our clinic @ [phone]. She will return in 3 months with me and [address] Dennis or sooner if clinically indicated. Signed, Petra Silveira MSN, MAINTENANCE MAN-FIELD SERVICER [facility] Department of Neurology - Epilepsy Division [address] [place] [address] - 7th floor [place] [address] Pager: [phone] I spent a total of 34 minutes on the date of the service which included preparing to see the patient, afjm-ic-gpcz patient care, completing clinical documentation, performing a medically appropriate examination and counseling and educating the patient/family/caregiver. Note to patient: The 21st Century Cures Act makes medical notes like these available to patients in the interest of transparency. However, be advised this is a medical document. It is intended as eoxg-fo-ryss communication. It is written in medical language and may contain abbreviations or verbiage that are unfamiliar. It may appear blunt or direct. Medical documents are intended to carry relevant information, facts as evident, and the clinical opinion of the practitioner. documented in this encounter [facility] 02-14-2023 Instructions Petra Duy JETHRO Silveira - 02/14/2023 4:00 PM EST Images from [...] after regular office hours, a neurologist is cogeneration technician for urgent issues. Call the neurology office number ([phone]) to reach the neurologist cogeneration technician if you are continuing to experience many more seizures than usual despite use of your rescue medications. Please try to remember that the neurologist cogeneration technician may not have access to your complete medical record and may not be as familiar with your history. If you have access through [employer], you can contact us through that system as well. If you have documents that need completed or sent to our clinic, please have them faxed to [phone]. It is always best to call during [...] refill is ready for you to picker and packer. Seizure First Aid Training Can Be Found Here (it's free!): [email or web address]/[email or web address]-[email or web address] documented in this encounter [facility] 01-15-2023 Miscellaneous Notes [facility] OPERATIVE REPORT PATIENT NAME: Rowena Byers [...] The IPG had been interrogated by the in home sales representative from the vendor. The upper [...] the new IPG and secured with the nurse's companion's screwdriver. At this point, a senior java [...] VSS, anesthesia sign out completed. 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 SURGEON Surgeon(s) and Role: * Andi Smith MD - Primary ANESTHESIOLOGIST Anesthesiologist: Cydney Zavala MD UPHOLSTERY RESTORER: Geraldo Marion APRN-UPHOLSTERY RESTORER Student Nurse Foundation Drill Operator Helper: Chiquita Polanco SURGICAL STAFF Spring Repairer Helper Hand: Miki Gary RN; Linda Gilmore RN Relief Spring Repairer Helper Hand: Janet Carreon RN Scrub Person: Marielle Ibrahim Resident Assisting: Colt Meadows MD COMPLICATIONS None ESTIMATED BLOOD LOSS Minimal SPECIMENS No specimen sent * No specimens in log * Colt Meadows MD January 15, 2023 11:03 AM documented in this encounter [facility] 01-15-2023 Nurse Note Pt and family were given AVS and verbalize understanding of instructions. Pt discharged via wheelchair. [facility] 01-15-2023 Surgery Postoperative evaluation and management note [facility] OPERATIVE REPORT PATIENT NAME: Rowena Byers [...] The IPG had been interrogated by the in home sales representative from the vendor. The upper [...] the new IPG and secured with the nurse's companion's screwdriver. At this point, a senior java [...] and performed the critical portions. [facility] 01-15-2023 Nurse Note Report called to RN SPR, VSS, anesthesia sign out completed. 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 SURGEON Surgeon(s) and Role: * Andi Smith MD - Primary ANESTHESIOLOGIST Anesthesiologist: Cydney Zavala MD UPHOLSTERY RESTORER: Geraldo Marion APRN-UPHOLSTERY RESTORER Student Nurse Foundation Drill Operator Helper: Chiquita Polanco SURGICAL STAFF Spring Repairer Helper Hand: Miki Gary RN; Linda Gilmore RN Relief Spring Repairer Helper Hand: Janet Carreon RN Scrub Person: Marielle Ibrahim Resident Assisting: Colt Meadows MD COMPLICATIONS None ESTIMATED BLOOD LOSS Minimal SPECIMENS No specimen sent * No specimens in log * Colt Meadows MD January 15, 2023 11:03 AM [facility] 01-15-2023 Nurse Surgical operation note Report given to SALES PLANNING MANAGER. Patient transported to PACU with anesthesia on a cart and oxygen. [facility] 01-15-2023 Nurse Note Report given to SALES PLANNING MANAGER. Patient transported to PACU with anesthesia on a cart and oxygen. documented in this encounter [facility] 01-15-2023 Hospital Discharge instructions Colt Meadows MD - 01/15/2023 9:30 AM EST Discharge Instructions for DBS Surgery & Battery Placement Surgery Here are some general guidelines to assist you in your recovery at home. Please do not hesitate to call us with any questions or concerns you may have. We can be reached at [phone]. Your appointmentS will be in the Neuromodulation clinic in [address] Incision Care: If you have a [...] 101 degrees F documented in this encounter [facility] 01-15-2023 History and physical note [...] by Andi Smith MD, 01/15/2023, 9:08 AM. [facility] Work Phone: 01-15-2023 History and [...] 01/15/2023, 9:08 AM. documented in this encounter [facility] 01-09-2023 History and physical note [...] 10 mg in 24 hours. Prenat MV-Min w/Bh-Jtpivk-ZZV ( COMPLETE PO) Take 1 tablet by [...] % ointment HCG QUALITATIVE, URINE Pulse Ox OK ECG, CLINIC PERFORMED Lab A/P - Labs [...] patient has been medically OPTIMIZED FOR SURGERY. [facility] Perioperative Clinic [facility] [address] Review of Systems (OSUROS)Review of Systems [...] PCP - General (Internal Medicine) Petra Silveira APRN-FIELD SERVICER (Certified Nurse Practitioner) Family History Problem Relation Age of Onset Prostate Cancer Maternal Grandfather Mental Illness Maternal Grandmother Depression , Anxiety Prostate Cancer Paternal Grandfather Cancer- Other Paternal Grandfather Diabetes Paternal Uncle Social History Socioeconomic History Marital status: Highest education level: Bachelor's degree (e.g., BA, AB, BS) 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 Prenat MV-Min w/Nq-Vwzmiw-CBD ( COMPLETE PO) Take 1 tablet by [...] % ointment HCG QUALITATIVE, URINE Pulse Ox OK ECG, CLINIC PERFORMED Lab A/P - Labs [...] patient has been medically OPTIMIZED FOR SURGERY. [facility] Perioperative Clinic [facility] [address] [facility] Review of Systems (OSUROS)Review of Systems [...] PCP - General (Internal Medicine) Petra Silveira APRN-FIELD SERVICER (Certified Nurse Practitioner) Family History Problem Relation Age of Onset Prostate Cancer Maternal Grandfather Mental Illness Maternal Grandmother Depression , Anxiety Prostate Cancer Paternal Grandfather Cancer- Other Paternal Grandfather Diabetes Paternal Uncle Social History Socioeconomic History Marital status: Highest education level: Bachelor's degree (e.g., BA, AB, BS) 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 Will check hCG today and on day of surgery. Patient understands that surgery may be cancelled if she is . Anesthesia Assessment:No contraindications to planned surgery. Pending review of the patient's labs.ECG reviewed. Whitney Ward MD [facility] documented in this encounter [facility] 01-09-2023 Instructions Robyn Dempsey LPN - 01/09/2023 [...] take Herbal Medication (including multi-vitamin, fish oil (Gallatin-3), garlic, Glucosamine - Chondroitin ,gingko, ginseng, Vitamin [...] site one week prior to surgery. - [place] your teeth and rinse your mouth the morning of surgery. - Do NOT bring your dentures or partials with you into surgery. They may be lost. Give them to someone to bring to you after surgery. If you are unable to complete your scheduled testing or appointments made by [facility] please contact [facility] at [phone]. Failure to do so could delay or [...] surgery, please notify our team immediately at [phone]. - If you have Sleep apnea and have a CPAP or BIPAP, then bring your CPAP mask and machine with you to the hospital. Please contact Medical Information Management Department for all records requests. [phone] [phone] Puma/mateo documented in this encounter [facility] 12-10-2022 History of Present illness Narrative [...] that were dedicated to clinical evaluation, including fmxf-am-jyhr time; counseling and education; chart completion; reviewing [...] aspirin, excedrin, plavix), multivitamins/minerals/herbal supplements (such as Gallatin-3, garlic, Glucosamine - Chondroitin, gingko, ginseng, Vitamin E, fish oil, etc), non-steroidal anti-inflammatory medications (NSAIDs) (such as Ibuprofen/Motrin/Advil, Aleve, Celebrex) for 10 days prior to surgery, as these are blood thinners. She was advised that Tylenol is the preferred option for pain. She stated understanding. documented in this encounter [facility] 11-08-2022 History of Present illness Narrative Images from the original note were not included. Rowena Byers was seen in the [facility] at [facility] on 11/08/2022. She is here today for a follow-up in clinic accompanied by her , Pedro. She was last seen on 04/19/[address] Cori Dennis DO and with me 09/19/22. History of [...] ID AW Model ID SenTiva Serial # [id number] Implanted 03/27/2018 Communication OK Output Current Status [...] VNS Simple Reprogramming (1-3 changes) CPT code 24920 Assessment and Plan Assessment: Rowena is a [...] would like to wait Encouraged use of Peg Bandwidth to send messages to provider as needed for questions and concerns or can call our clinic @ [phone]. She will return in 2 months or sooner if clinically indicated. Signed, Petra ESCALANTE, MAINTENANCE MAN-FIELD SERVICER [facility] Department of Neurology - Epilepsy Division [address] [place] [address] - 7th floor [place] [address] Pager: [phone] I spent a total of 46 minutes on the date of the service which included preparing to see the patient, poxk-et-iznh patient care, completing clinical documentation, performing a medically appropriate examination and counseling and educating the patient/family/caregiver. Note to patient: The 21st Century Cures Act makes medical notes like these available to patients in the interest of transparency. However, be advised this is a medical document. It is intended as qovj-dp-malr communication. It is written in medical language and may contain abbreviations or verbiage that are unfamiliar. It may appear blunt or direct. Medical documents are intended to carry relevant information, facts as evident, and the clinical opinion of the practitioner. documented in this encounter [facility] 11-08-2022 Instructions JETHRO Juan - [...] ID AW Model ID SenTiva Serial # [id number] Implanted 03/27/2018 Communication OK Output Current Status OK Current Delivered 1.75 Lead Impedance OK Impedance Value 2903 IFI NO Average # of Inhibited Auto stimulations Daily Avg. Stim % Per Day %Therapy Normal 843.56 AutoStim 26.89 Magnet 0.04 Total 870.50 documented in this encounter [facility] 07-04-2021 Instructions JETHRO Juan - [...] weeks with Petra documented in this encounter [facility] 07-04-2021 History of Present illness Narrative Images from the original note were not included. Rowena Byers was seen in the [facility] at [facility] on 07/04/2021. 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 Encouraged use of Peg Bandwidth to send messages to provider as needed for questions and concerns or can call our clinic @ [phone]. She will return in 6 weeks and 3 months with me and [address] Dennis or sooner if clinically indicated. Signed, Petra Silveira MSN, MAINTENANCE MAN-FIELD SERVICER [facility] Department of Neurology - Epilepsy Division [address] [place] [address] - 7th floor [place] [address] Pager: [phone] Time to complete visit: I spent approximately 38 minutes reviewing the chart prior to the appointment, in face to face counseling with the patient, and with documentation after the visit. 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 [facility] Diagnosis Jeavons syndrome- Primary [facility] Diagnosis Jeavons syndrome- Primary [facility] Diagnosis Jeavons syndrome Jeavons syndrome [facility] Diagnosis Preop exam for internal medicine- Primary Other specified pre-operative examination 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 Other postprocedural status Jeavons syndrome [facility] 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 Other postprocedural status [facility] Diagnosis Encounter for fertility planning documented in this encounter [facility] Healthcare[facility]* Diagnosis Jeavons syndrome- Primary Anxiety disorder, unspecified type [facility] Diagnosis Onset Date Resolution Status Maxillary sinusitis acute [facility] Work Phone: Evaluation note* Diagnosis Jeavons syndrome- Primary Anxiety disorder, unspecified type [facility] Diagnosis Onset Date Resolution Status Maxillary sinusitis acute Maxillary sinusitis acute [facility] Work Phone: Evaluation note* Diagnosis PCOS (polycystic ovarian syndrome) Polycystic ovaries Skin tag Unspecified hypertrophic and atrophic condition of skin documented in this encounter [facility] noteNo assessment [facility]* Diagnosis General counseling and advice for procreative management- Primary Other procreative management counseling and advice Polycystic ovarian syndrome Polycystic ovaries documented in this encounter [facility] for referral (narrative)* Consultation (Routine) - New Request Specialty Diagnoses / Procedures Referred By Rainer ramos Referred To Contact Neurologic Surgery Diagnoses Jeavons syndrome Andi Smith MD [address] [place] [phone] Referral ID Status Reason Start Date Expiration Date V isits Requested Visits Authorized [id number] New Request 12/10/2022 01/04/2024 1 1 [facility] Summary Purpose Family History Relationship Condition Age at Onset Recorded Date/T jorge grandparent Malignant neoplasm Unknown Advance Directives Advance Directive Response Recorded Date/ Time Advance Directives No July 06, 024 12:12pm Reason for Referral Specialty Diagnoses / Procedures Referred By Rainer ramos Referred To Contact Diagnoses Generalized nonconvulsive epilepsy Petra Silveira, MAINTENANCE MAN-FIELD SERVICER [address] [place] [address] Referral ID Status Reason Start Date Expiration Date V isits Requested Visits Authorized [id number] Pending Review 1 1 Specialty Diagnoses / Procedures Referred By Rainer ramos Referred To Contact Procedures DVT/VTE RISK ASSESSMENT Andi Smith MD [address] [place] [address] [place] [address] Referral ID Status Reason Start Date Expiration Date V isits Requested Visits Authorized [id number] New Request 01/15/2023 02/09/2024 1 1 Chief Complaint and Reason for Visit Chief Complaint sinus infection Reason for Visit Maxillary sinusitis Chief Complaint sinus infection sinus infection Reason for Visit Maxillary sinusitis Maxillary sinusitis Chief Complaint Admit Date Unknown July 20, 2024 9:00a m Additional Source Comments INFORMATION SOURCE (unrecogn ized section and content) DATE CREATED AUTHOR 09/03/2017 [facility] DATE CREATED AUTHOR AUTHOR'S ORGANIZ ATION 03/28/2018 [facility] DATE CREATED AUTHOR AUTHOR'S ORGANIZ ATION 07/02/2018 [facility] DATE CREATED AUTHOR AUTHOR'S ORGANIZ ATION 10/02/2019 [facility] DATE CREATED AUTHOR AUTHOR'S ORGANIZ ATION 06/01/2022 [facility] DATE CREATED AUTHOR AUTHOR'S ORGANIZ ATION 04/24/2023 [facility] DATE CREATED AUTHOR AUTHOR'S ORGANIZ ATION 06/07/2024 [facility] DATE CREATED AUTHOR AUTHOR'S ORGANIZ ATION 07/21/2024 [facility] EP[facility] DATE CREATED AUTHOR AUTHOR'S ORGANIZ ATION 07/28/2024 [facility] DATE CREATED AUTHOR AUTHOR'S ORGANIZ ATION 10/02/2024 [facility] Reason for Visit (unrecogniz ed section and content) Reason Comments Follow-up Reason Comments Follow-up Reason Comments New Patient 32 y.o female here f or consult. Specialty Diagnoses / Procedures Referred By Rainer ramos Referred To Contact Neurologic Surgery Diagnoses Jeavons syndrome S/P placement of VNS (vagus nerve stimulation) device Petra Silveira, MAINTENANCE MAN-FIELD SERVICER [address] [place] [address] Referral ID Status Reason Start Date Expiration Date V isits Requested Visits Authorized [id number] New Request 09/19/2022 10/14/2023 1 1 Reason Comments Preoperative Assessment Specialty Diagnoses / Procedures Referred By Contac t Referred To Contact Neurologic Surgery Diagnoses Jeavons syndrome Andi Smith MD [address] [place] [address] Referral ID Status Reason Start Date Expiration Date V isits Requested Visits Authorized [id number] New Request 12/10/2022 01/04/2024 1 1 Specialty Diagnoses / Procedures Referred By Contac t 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 Reason Comments LMTCB Reason Comments Infertility Care Teams (unrecognized sec tion and content) Cherry Sorter Relationship Specialty Start Date End Date Tim Stallings DO [address] [place] [phone] PCP - General Internal Medicine 09/19/22 Petra Silveira, MAINTENANCE MAN-FIELD SERVICER [address] [place] [phone] Certified Nurse Practitioner 11/08/22 Cherry Sorter Relationship Specialty Start Date End Date Tim Stallnigs DO [address] [place] [phone] PCP - General Internal Medicine 09/19/22 Petra Silveira, MAINTENANCE MAN-FIELD SERVICER [address] [place] [phone] Certified Nurse Practitioner 11/08/22 Cherry Sorter Relationship Specialty Start Date End Date Tim Stallings [address] [place] [phone] PCP - General Internal Medicine 09/19/22 Petra Silveira, MAINTENANCE MAN-FIELD SERVICER [address] [place] [phone] Certified Nurse Practitioner 11/08/22 Cherry Sorter Relationship Specialty Start Date End Date Tim Stallings [address] [place] [address] PCP - General Internal Medicine 09/19/22 Petra Silveira, MAINTENANCE MAN-FIELD SERVICER [address] [place] [phone] Certified Nurse Practitioner 11/08/22 Cherry Sorter Relationship Specialty Start Date End Date Tim Stallings [address] [place] [address] PCP - General Internal Medicine 09/19/22 Petra Silveira, MAINTENANCE MAN-FIELD SERVICER [address] [place] [phone] Certified Nurse Practitioner 11/08/22 Cherry Sorter Relationship Specialty Start Date End Date Tim Stallings [address] [place] [address] PCP - General Internal Medicine 09/19/22 Petra Silveira APRN-FIELD SERVICER [address] [place] [address] Certified Nurse Practitioner 11/08/22 Cherry Sorter Relationship Specialty Start Date End Date Tim Stallings MD [address] [place] [address] PCP - General Internal Medicine 08/08/22 Cherry Sorter Relationship Specialty Start Date End Date Tim Stallings DO [address] [place] [address] PCP - General Internal Medicine 09/19/22 Petra Silveira APRN-FIELD SERVICER [address] [place] [phone] Certified Nurse Practitioner 11/08/22 Team Status: Active Member Role Status Dates Tim Stallings DO Primary Care Provider Active Team Status: Active Member Role Status Dates Tim Stallings DO Primary Care Provide r, Attending Provider Active Start: May 09, 2023 Team Status: Active Member Role Status Dates Tim Stallnigs DO Primary Care Provide r, Attending Provider Active Start: June 08, 2023 Team Status: Active Member Role Status Dates Tim Stallings DO Primary Care Provide r, Attending Provider Active Start: June 27, 2023 Team Status: Inactive Member Role Status Dates Tim Stallings DO Primary Care Provider Active Start: July 07, 2023 End: July 07, 2023 Kristine Oneill APRN CARPET FINISHING SUPERVISOR-C Attending Provider Act duncan Start: July 07, 2023 End: July 07, 2023 Cherry Sorter Relationship Specialty Start Date End Date Tim Stallings DO [address] [place] [address] PCP - General Internal Medicine 09/19/22 Petra Silveira APRN-FIELD SERVICER [address] [place] [phone] Certified Nurse Practitioner 11/08/22 Team Status: Active Member Role Status Dates Tim Stallings DO Primary Care Provide r, Attending Provider Active Start: July 09, 2023 Team Status: Active Member Role Status Dates Tim Stallings , DO Primary Care Provide r, Attending Provider Active Start: August 08, 2023 Team Status: Active Member Role Status Dates Tim Stallings DO Primary Care Provide r, Attending Provider Active Start: September 11, 2023 Team Status: Inactive Member Role Status Dates Tim Stallings , Primary Care Provider Active Start: September 24, 2023 End: September 24, 2023 Kristine Oneill APRN CARPET FINISHING SUPERVISOR-C Attending Provider Act duncan Start: September 24, 2023 End: September 24, 2023 Cherry Sorter Relationship Specialty Start Date End Date Tim Stallings DO [address] [place] [phone] PCP - General Internal Medicine 09/19/22 Petra Silveira MAINTENANCE MAN-FIELD SERVICER [address] [place] [phone] Certified Nurse Practitioner 11/08/22 Cherry Sorter Relationship Specialty Start Date End Date Tim Stallings MD [address] [place] [address] PCP - General Internal Medicine 08/08/22 Cherry Sorter Relationship Specialty Start Date End Date Tim Stallings MD [address] [place] [address] PCP - General Internal Medicine 08/08/22 Cherry Sorter Relationship Specialty Start Date End Date Tim Stallings MD [address] [place] [address] PCP - General Internal Medicine 08/08/22 Cherry Sorter Relationship Specialty Start Date End Date Tim Stallings DO [address] [facility] [place] [phone] PCP - General Internal Medicine 08/08/22 Cherry Sorter Relationship Specialty Start Date End Date Tim Stallings DO [address] [place] [address] PCP - General Internal Medicine [...] July 20, 2024 End: July 20, 2024 Cherry Sorter Relationship Specialty Start Date End Date Tim Stallings DO [address] [place] [address] PCP - General Internal Medicine 07/26/24 Donovan Burks, DO [address] [place] [address] Referring Linoleum Tile Floor Layer 07/26/24 Cherry Sorter Relationship Specialty Start Date End Date Tim Stallings DO [address] [place] [address] PCP - General Internal Medicine 07/26/24 Donovan Burks, DO [address] [place] [address] Referring Linoleum Tile Floor Layer 07/26/24 Cherry Sorter Relationship Specialty Start Date End Date Tim Stallings DO [address] [place] [address] PCP - General Internal Medicine 07/26/24 Donovan Burks DO [address] [facility] [place] [address] Referring Linoleum Tile Floor Layer 07/26/24 Scheduled Active and Recently Administ ered [...] - Comment: mixed 1:1 w/Lido with epi [id number]) ceFAZolin (ANCEF) 2 g in dextrose 100 mL premix IVPB (COMPLETED) 2 g, Intravenous, Administer over 30 Minutes, MANAGER COSMETIC TO PROCEDURE, 1 dose, Starting on Fri01/15/23 at 0758, Until Discontinued, Other, Surgical Prophylaxis, Initiate antibiotic administration 30-60 minutes prior to surgical incision and complete administration prior to surgical incision., Pre-op/Pre-Proc 0955 (Given - Provid er: Geraldo Marion, MAINTENANCE MAN-UPHOLSTERY RESTORER) lidocaine-epinephrine 2 %-1:[id number] injection (CANCELED) NEEDED, Starting on Fri01/15/23 at [...] Order-specific weight), Intravenous, Administer over 1 Hours, MANAGER COSMETIC TO PROCEDURE, 1 dose, Starting on Fri01/15/23 [...] or prosecute any alcohol or drug abuse patient.[facility] the event this information is protected by the Federal Confidentiality of Alcohol and Drug Abuse Patient Records regulations: The Federal rules restrict any use of the information to criminally investigate or prosecute any alcohol or drug abuse patient.[facility] Hospital[facility] the event this information is protected by the Federal Confidentiality of Alcohol and Drug Abuse Patient Records regulations: The Federal rules restrict any use of the information to criminally investigate or prosecute any alcohol or drug abuse patient.[facility] FOR RECORDS PERTAINING TO PATIENTS WHO [...] BE BASED ON THE PRIMARY CLINICAL RECORDS. [facility]. provides no warranty or guarantee [id number] the accuracy [phone] completeness of information in this [id number]
[2024-11-01 11:09] LABS: Age Gdln ACOG Testing Note (.); IGP, Aptima HPV, rfx 16/18,45 Note (.)
== END 2024-10-28 14:46 | disposition home or self-care (01) ==
LOC: LAB 14:45
PROVIDERS: PCP Internal Medicine; Visit Provider Obstetrics & Gynecology
DX: Z01.419 Encounter for gynecological examination (general) (routine) without abnormal findings (principal)
CPT/HCPCS: 87624; 88175

== ENCOUNTER 2024-11-11 11:44 | Outpatient (OUT) | payer OTHER, SELFPAY ==
--- OUTSIDE RECORDS SUMMARY | 2024-11-11 11:50 | XMS_ITS | CCD ---
Author Organization [facility] Care Team Providers Care Status Controller Name Role Phone JAMIL SMITH Referring Unavailable [...] Unavailable Tim Stallings DO Primary Care Provider [phone] Raoul MEETING/EVENT PLANNER-CONDUIT HELPER, Crystal G Unavailable Tim Stallings MD Primary Care Provider DONOVAN BURKS Attending Unavailable Raoul MEETING/EVENT PLANNER-CONDUIT HELPER, Crystal G Unavailable CORI DENNIS Attending Unavailable TIM STALLINGS Primary Care Unavailable SELF, SELF Referring Unavailable TIM STALLINGS Referring Unavailable TIM STALLINGS Primary Care Unavailable CORI DENNIS Attending Unavailable Tim Stallings MD Primary Care Provider Tim Stallings DO Primary Care Provider Donovan Burks DO Attending Provider [phone] Donovan Burks Attending Unavailable Donovan Burks Admitting Unavailable Tim Stallings DO Primary Care Provider KimmieDonovan pritchett DO R Unavailable KIT CAICEDO Attending Unav ailable TIM STALLINGS Primary Care Unavailable DONOVAN BURKS Attending Unavailable DONOVAN BURKS Attending Unavailable Allergies Allergy Classification Reported Allergen(s) Allergy Type Date of Onset Reaction(s) Facility (11 sources) Seasonal allergy Propensity to adverse reactions to drug 7 Runny Nose, Congestion [facility] Work Phone: (19 sources) Pollen Propensity to adverse reactions 7 Runny nose [facility] (19 sources) Other Propensity to adverse reactions 2 Runny nose [facility] Healthcare Medications Current Medications Medication [...] mg / cholecalciferol 500 unt oral capsule (20 sources) Vitamin D Start: 2023 Calcium Carb-Cholecalciferol [...] Active clomiPHENE citrate 50 mg oral tablet (11 sources) Estrogen Agonist/Antagonist Start: 10-25-2024 End: 10-30-2024 [...] 2023 12:00am escitalopram 20 mg oral tablet (17 sources) Serotonin Reuptake Inhibitor Start: 04-30-2021 End: 10-28-2024 take 1 tablet by mouth once daily [...] sulfate 120 mg extended release oral tablet (19 sources) alpha-Adrenergic Agonist take 1 tablet by [...] 03-22-2022 End: 06-21-2023 LORazepam 0.5 MG tablet May cations: Anxiety disorder, unspecified type 1 tab [...] Indications: 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 Active take 1 tablet by mouth once at b edtime Prenat MV-Min w/Jh-Gykcxh-CXG ( COMPLETE PO) Take 1 tablet by mouth at bedtime. 0 Active MV-Min-Fe Fum-FA-DH A ( 1 PO) (19 sources) MV-Min- Fe Fum-FA-DHA ( 1 PO) [...] 150 mg by mouth at bedtime Active ubidecarenone 30 mg oral capsule (3 sources) take 1 capsule by mouth once daily co-enzyme Q-10 30 MG capsule Take 30 mg by mouth Daily Active 24 hr divalproex sodium 250 mg [...] SYNDROME] Onset: 05-23-2022 Chronic Other endocrine disorders (20 sources) Polycystic ovary syndrome; Translations: [Polycystic ovarian [...] Test Name Value Interpretation Reference Range Facility IGP,APTIMA HPV,AGE GDLNon AGE GDLN ACOG TESTING Note . [facility] Comment on above: TESTS RESULT FLAG UN ITS REF RANGE LAB Clinician Provided Cytology Information Source.............Cervix;Endocervix No. of containers..01 ThinPrep Vial Age Algo ACOG Radha... 30-65 01 FLAG LEGEND: L-Low Normal,H-High Normal,LL-Alert Low,HH-Alert High <-Panic Low,>-Panic High,A-Abnormal,AA-Critical Abnormal Performed at: 01 =G [address] [place] [address] Tahmina Mehta MD, HPV APTIMA Negative Negative [facility] Comment on above: This nucleic acid am plification test detects fourteen high- risk HPV types (16,18,31,33,35,39,45,51,52,56,58,59,66,68) without differentiation. Performed at: = - [address], [place] [id number] Front End Developer: Tahmina Mehta MD, Phone: [phone] Performed at: [address], [place] [id number] Front End Developer: Tahmina Mehta MD, Phone: [phone] IGP, APTIMA HPV, RFX 16/18,45 Note . [facility] Comment on above: TESTS RESULT FLAG UN ITS REF RANGE LAB DIAGNOSIS: 02 NEGATIVE FOR INTRAEPITHELIAL LESION OR MALIGNANCY. Specimen adequacy: 02 Satisfactory for evaluation. Endocervical and/or squamous metaplastic cells (endocervical component) are present. Performed by: [employer] (ASCP) . 02 Note: Note 02 The Pap smear is a screening test designed to aid in the detection of premalignant and malignant conditions of the uterine cervix. It is not a diagnostic procedure and should not be used as the sole means of detecting cervical cancer. Both false-positive and false-negative reports do occur. Test Methodology: Note 02 This liquid based ThinPrep(R) pap test was screened with the use of an image guided system. HPV Genotype Reflex Note 02 Criteria not met, HPV Genotype not performed. FLAG LEGEND: L-Low Normal,H-High Normal,LL-Alert Low,HH-Alert High <-Panic Low,>-Panic High,A-Abnormal,AA-Critical Abnormal Performed at: [facility] [address] [address] Tahmina Mehta MD, BRUSH-SPATULA CERVIX ENDOCERVIX [facility] [employer] ALL PROGESTERONEon PROGESTERONE 30.3 ng/mL . [facility] Comment on above: Follicular phase 0.1 - 0.9 Luteal phase 1.8 - 23.9 Ovulation phase 0.1 - 12.0 First trimester 11.0 - 44.3 Second trimester 25.4 - 83.3 Third trimester 58.7 - 214.0 Postmenopausal 0.0 - 0.1 Performed at: [facility] [address] [id number] Front End Developer: Ino Dougherty PhD, Phone: [phone] [facility] [employer] [id number] 10-01-2024 O ID: [id number] Author: KIT CAICEDO MD Service: ? Author [...] of retrograde ejaculation considered. - Referred to [facility] urologists specializing in male infertility: Dr. Bull, Dr. Yu, or Dr. Duron. - Discussed use of special condom for semen collection available at [place] [facility] department. - Advised scheduling a follow-up appointment after urological evaluation to discuss further reproductive management options, including IUI or IVF if necessary. This visit was conducted as a virtual visit via zoom. I have communicated my name and active licensure. The patient's identity and physical location were verified at the time of this visit. Either the patient or their legal compliance representative dealer has been informed of the risks and benefits of -- and alternatives to -- treatment through a remote evaluation and consents to proceed with the evaluation remotely. I spent a total of 20 minutes on the date of the service which included preparing to see the patient, [id number] patient care, completing clinical documentation, counseling and educating the patient/family/caregive r, ordering medications, tests, or procedures, communicating results to the patient/family/caregive r, and care coordination (not separately reported). The patient consented to the use of [employer] software for draft documentation of the visit consistent with [facility]?s Notice of Privacy Practices. Normal [facility]01[facility]2024 [facility] ROWENA GUADALUPE ([id number]) 1990 F Date Time Provider Department 10/01/24 KIT CAICEDO During your visit today, we recorded the following information about you: Angella Díaz MA 10/01/2024 11:14 AM Signed Left message for pt to return call to update fertility screening, partner information, etc. Angella Díaz MA October 01, 2024 11:14 AM Allergies As of Date: 10/01/2024 (Not on File) Date Reviewed: Never Reviewed Reason for Visit: LMTCB [1226] Problem List As Of Date: 10/01/2024 (None) Encounter Status:Closed by BUNNYCATIE ANGELLA on 10/01/24 Normal [facility] CONSULT PROGon 10-01-2024 CONSULT PROG HNO ID: [id number] Author: KIT CAICEDO MD Service: ? Author Type: Physician Type: Consult Progress Note Filed: 10/01/2024 11:29 Note Text: [facility] Date: 10/01/2024 Rowena Drake is a [...] (more content not included)... Normal [facility] ALL PROGESTERONEon 5 PROGESTERONE 49.0 ng/mL . [facility] Comment on above: Follicular phase 0.1 - 0.9 Luteal phase 1.8 - 23.9 Ovulation phase 0.1 - 12.0 First trimester 11.0 - 44.3 Second trimester 25.4 - 83.3 Third trimester 58.7 - 214.0 Postmenopausal 0.0 - 0.1 Performed at: [address] [id number] Front End Developer: Ino Dougherty PhD, Phone: [phone] [facility] ALL PROGESTERONEon 5 PROGESTERONE 32.3 ng/mL . [facility] Comment on above: Follicular phase 0.1 - 0.9 Luteal phase 1.8 - 23.9 Ovulation phase 0.1 - 12.0 First trimester 11.0 - 44.3 Second trimester 25.4 - 83.3 Third trimester 58.7 - 214.0 Postmenopausal 0.0 - 0.1 Performed at: [address] [id number] Front End Developer: Ino Dougherty PhD, Phone: [phone] [facility] PATHOLOGY REQUEST FOR LAB CO RPon 07-27-2024 PATHOLOGY REQUEST FOR LAB HELGA [facility] Comment on above: See report. Scanned copy available in EMR. SKIN TAG [facility] Pathology Request for Lab Co rpon 07-20-2024 Pathology Request for Lab Helga Normal [facility] Comment on above: Order Comment: SKIN TAG Result Comment: See report. Scanned copy available in EMR. PERFORMED BY: [facility] [place] [address] PATHOLOGIST SECURITY LEAD SAM MARTIN M.D. Performed By: #### P ATH TO [facility] #### [facility] [address] ALL PROGESTERONEon PROGESTERONE 32.1 ng/mL . [facility] Comment on above: Follicular phase 0.1 - 0.9 Luteal phase 1.8 - 23.9 Ovulation phase 0.1 - 12.0 First trimester 11.0 - 44.3 Second trimester 25.4 - 83.3 Third trimester 58.7 - 214.0 Postmenopausal 0.0 - 0.1 Performed at: - [facility] [address] [id number] Front End Developer: Ino Dougherty PhD, Phone: [phone] [facility] Estimated glomerular filtrat ion rate (GFR) non- Americanon 06-28-2024 GFR/1.73 sq M.predicted among non-blacks MDRD (S/P/Bld) [Vol rate/Area] Estimated glomerular filtration rate (GFR) non- >=60 mL/min/1.73 m 2 [facility] Globulin Calc (S) [Mass/Vol] on 06-28-2024 Globulin (S) [Mass/Vol] Serum globulin measurement by calculation (mass/volume) [facility] Laboratory - Chemistry and C hemistry - challengeon 06-28-2024 Albumin [Mass/Vol] 4.0 g/dL 3.4-5.0 [facility] ALP [Catalytic activity/Vol] 43 U/L Low 46-116 [facility] ALT [Catalytic activity/Vol] 18 U/L 14-59 [facility] AST [Catalytic activity/Vol] 14 U/L Low 15-37 [facility] Bilirubin [Mass/Vol] 0.2 mg/dL 0.2-1.0 [facility] Calcium [Mass/Vol] 9.3 mg/dL 8.5-10.1 [facility] Chloride [Moles/Vol] 103 mmol/L 98-107 [facility] CO2 [Moles/Vol] 26.9 mmol/L 21.0-32.0 [facility] Creatinine [Mass/Vol] 0.63 mg/dL 0.55-1.02 [facility] GFR/1.73 sq M.predicted MDRD (S/P/Bld) [Vol rate/Area] mL/min/{1.73_m2} >=60 mL/min/1.73 m 2 [facility] Glucose [Mass/Vol] 89 mg/dL 74-106 [facility] Potassium [Moles/Vol] 4.4 mmol/L 3.5-5.1 [facility] Protein [Mass/Vol] 7.4 g/dL 6.4-8.2 [facility] Sodium [Moles/Vol] 138 mmol/L 136-145 [facility] Urea nitrogen [Mass/Vol] 13.0 mg/dL 7.0-18.0 [facility] Urea nitrogen/Creatinine [Mass ratio] 20.6 mg/mg [facility] No Panel Informationon 06-28 Lamotrigine (Lamictal) Level 4.8 ug/mL 2.0-20.0 [facility] Comment on above: Detection Limit = 1. 0Performed at: [facility] [address] [id number] Director: Tana Gonzalez MD, Phone: [phone] Serum or plasma albumin/glob ulin mass ratioon 06-28-2024 Albumin/Globulin [Mass ratio] Serum or plasma albumin/globulin mass ratio [facility] Serum or plasma anion gap de terminationon 06-28-2024 Anion gap [Moles/Vol] Serum or plasma an ion gap determination [facility] Serum or plasma progesterone measurement (mass/volume)on 06-28-2024 Progesterone [Mass/Vol] Serum or plasma progesterone measurement (mass/volume) . [facility] Comment on above: Follicular phase 0.1 - 0.9 Luteal phase 1.8 - 23.9 Ovulation phase 0.1 - 12.0 First trimester 11.0 - 44.3 Second trimester 25.4 - 83.3 Third trimester 58.7 - 214.0 Postmenopausal 0.0 - 0.1Performed at: [employer] [address] [id number] Director: Ino Dougherty PhD, Phone: [phone] ALL PROGESTERONEon 5 PROGESTERONE 17.1 ng/mL . [facility] Comment on above: Follicular phase 0.1 - 0.9 Luteal phase 1.8 - 23.9 Ovulation phase 0.1 - 12.0 First trimester 11.0 - 44.3 Second trimester 25.4 - 83.3 Third trimester 58.7 - 214.0 Postmenopausal 0.0 - 0.1 Performed at: [facility] [address] [place] [id number] Front End Developer: Ino Dougherty PhD, Phone: [phone] [employer] [facility] Serum or plasma progesterone measurement (mass/volume)on 05-26-2024 Progesterone [Mass/Vol] Serum or plasma progesterone measurement (mass/volume) . [facility] Comment on above: Follicular phase 0.1 - 0.9 Luteal phase 1.8 - 23.9 Ovulation phase 0.1 - 12.0 First trimester 11.0 - 44.3 Second trimester 25.4 - 83.3 Third trimester 58.7 - 214.0 Postmenopausal 0.0 - 0.1Performed at: [facility] [place] [id number] Director: Ino Dougherty PhD, Phone: [phone] ALL PROGESTERONEon 4 PROGESTERONE 21.2 ng/mL . [facility] Comment on above: Follicular phase 0.1 - 0.9 Luteal phase 1.8 - 23.9 Ovulation phase 0.1 - 12.0 First trimester 11.0 - 44.3 Second trimester 25.4 - 83.3 Third trimester 58.7 - 214.0 Postmenopausal 0.0 - 0.1 Performed at: [facility] [id number] Front End Developer: Ino Dougherty PhD, Phone: [phone] [employer] ALL PROGESTERONEon 4 PROGESTERONE 25.4 ng/mL . [facility] [employer] Comment on above: Follicular phase 0. 1 - 0.9 Luteal phase 1.8 - 23.9 Ovulation phase 0.1 - 12.0 First trimester 11.0 - 44.3 Second trimester 25.4 - 83.3 Third trimester 58.7 - 214.0 Postmenopausal 0.0 - 0.1 Performed at: [address] [id number] Front End Developer: Ino Dougherty PhD, Phone: [phone] [facility] ALL PROGESTERONEon 10-202 4 PROGESTERONE 19.7 ng/mL . [facility] Comment on above: Follicular phase 0.1 - 0.9 Luteal phase 1.8 - 23.9 Ovulation phase 0.1 - 12.0 First trimester 11.0 - 44.3 Second trimester 25.4 - 83.3 Third trimester 58.7 - 214.0 Postmenopausal 0.0 - 0.1 Performed at: [address] [id number] Front End Developer: Ino Dougherty PhD, Phone: [phone] [facility] [employer] ALL PROGESTERONEon 4 PROGESTERONE 20.0 ng/mL . [facility] Comment on above: Follicular phase 0.1 - 0.9 Luteal phase 1.8 - 23.9 Ovulation phase 0.1 - 12.0 First trimester 11.0 - 44.3 Second trimester 25.4 - 83.3 Third trimester 58.7 - 214.0 Postmenopausal 0.0 - 0.1 Performed at: [address] [id number] Front End Developer: Ino Dougherty PhD, Phone: [phone] [facility] Serum or plasma progesterone measurement (mass/volume)on 09-11-2023 Progesterone [Mass/Vol] 12.9 ng/mL . [facility] Comment on above: Follicular phase 0.1 - 0.9 Luteal phase 1.8 - 23.9 Ovulation phase 0.1 - 12.0 First trimester 11.0 - 44.3 Second trimester 25.4 - 83.3 Third trimester 58.7 - 214.0 Postmenopausal 0.0 - 0.1Performed at: [address] [id number] Director: Ino Dougherty PhD, Phone: [phone] Serum or plasma progesterone measurement (mass/volume)on 08-08-2023 Progesterone [Mass/Vol] 11.3 ng/mL . [facility] Comment on above: Follicular phase 0.1 - 0.9 Luteal phase 1.8 - 23.9 Ovulation phase 0.1 - 12.0 First trimester 11.0 - 44.3 Second trimester 25.4 - 83.3 Third trimester 58.7 - 214.0 Postmenopausal 0.0 - 0.1Performed at: [employer] [place], [place] [id number] Director: Ino Dougherty PhD, Phone: [phone] Serum or plasma progesterone measurement (mass/volume)on 07-09-2023 Progesterone [Mass/Vol] 16.6 ng/mL . [facility] Comment on above: Follicular phase 0.1 - 0.9 Luteal phase 1.8 - 23.9 Ovulation phase 0.1 - 12.0 First trimester 11.0 - 44.3 Second trimester 25.4 - 83.3 Third trimester 58.7 - 214.0 Postmenopausal 0.0 - 0.1Performed at: [employer] [place], [place] [id number] Director: Ino Dougherty PhD, Phone: [phone] No Panel Informationon 06-26 Human Chorionic Gonadotropin, Quant <1 mIU/mL [facility] Comment on above: 5-50 0.2-1 [id number] 0 1-2 IYDCY259-8,000 2-3 OOYSK719-99,000 3-4 WEEKS1,000-50,000 4-5 WEEKS10,000-100,000 5-6 WEEKS15,000-200,000 6-8 WEEKS10,000-100,000 2-3 MONTHS Serum or plasma progesterone measurement (mass/volume)on 06-08-2023 Progesterone [Mass/Vol] 20.7 ng/mL . [facility] Comment on above: Follicular phase 0.1 - 0.9 Luteal phase 1.8 - 23.9 Ovulation phase 0.1 - 12.0 First trimester 11.0 - 44.3 Second trimester 25.4 - 83.3 Third trimester 58.7 - 214.0 Postmenopausal 0.0 - 0.1Performed at: [employer] [place], [place] [id number] Director: Ino Dougherty PhD, Phone: [phone] Laboratory - Chemistry and C hemistry - challengeon 05-09-2023 Free T4 [Mass/Vol] 0.77 ng/dL 0.76-1.46 [facility] No Panel Informationon 05-08 Free Triiodothyronine 2.78 pg/mL 2.18-3.98 [facility] Serum or plasma progesterone measurement (mass/volume)on 05-09-2023 Progesterone [Mass/Vol] 19.3 ng/mL . [facility] Comment on above: Follicular phase 0.1 - 0.9 Luteal phase 1.8 - 23.9 Ovulation phase 0.1 - 12.0 First trimester 11.0 - 44.3 Second trimester 25.4 - 83.3 Third trimester 58.7 - 214.0 Postmenopausal 0.0 - 0.1Performed at: [facility] [id number] Director: Ino Dougherty PhD, Phone: [phone] BETA HCG, URINE (POC DEVICE) on 01-15-2023 Beta HCG ( test) Ql (U) Negative Negative [facility] Interpretation and review of laboratory results Normal [facility] Test performed at address of the patient encounter. [facility] CARDIAC RHYTHM (SCANNED)on 03-17-2022 [facility] CBC AND ELECTRONIC DIFFon Basophils (Bld) [#/Vol] 0.05 10*3/uL 0.00 - 0.15 K/uL [facility] Basophils/100 WBC (Bld) 0.5 % O [facility] Differential cell count method Nom (Bld) Electronic Differential [facility] Eosinophils (Bld) [#/Vol] 0.12 10*3/uL 0.00 - 0.42 K/uL [facility] Eosinophils/100 WBC (Bld) 1.2 % [facility] Erythrocyte distribution width (RBC) [Ratio] 13.1 % 10.8 - 14.9 % [facility] Hematocrit (Bld) [Volume fraction] 42.5 % 34.9 - 44.3 % [facility] Hemoglobin (Bld) [Mass/Vol] 14.3 g/dL 11.4 - 15.2 g/dL [facility] Immature granulocytes (Bld) [#/Vol] K/uL NINF - 0.08 K/uL [facility] Immature granulocytes/100 WBC (Bld) 0.3 % [facility] Lymphocytes (Bld) [#/Vol] 3.42 10*3/uL 1.16 - 3.51 K/uL [facility] Lymphocytes/100 WBC (Bld) 32.9 % [facility] MCH (RBC) [Entitic mass] 31.1 pg 25. 9 - 33.9 pg [facility] MCHC (RBC) [Mass/Vol] 33.6 g/dL 31.4 - 35.9 g/dL [facility] MCV (RBC) [Entitic vol] 92.4 fL 79.6 - 97.7 fL [facility] Monocytes (Bld) [#/Vol] 0.62 10*3/uL 0.22 - 0.87 K/uL [facility] Monocytes/100 WBC (Bld) 6.0 % [facility] Neutrophils (Bld) [#/Vol] 6.14 10*3/uL 1.64 - 7.28 K/uL [facility] Nucleated RBC/100 WBC (Bld) [Ratio] 0.0 % [facility] Platelet mean volume (Bld) [Entitic vol] 10.8 fL 8.5 - 12.2 fL [facility] Platelets (Bld) [#/Vol] 326 10*3/uL 150 - 393 K/uL [facility] RBC (Bld) [#/Vol] 4.60 10*6/uL [facility] Segmented neutrophils/100 WBC (Bld) 59.1 % [facility] WBC (Bld) [#/Vol] 10.38 10*3/uL 3.99 - 11.19 K/uL [facility] HCG ( test) Ql (U)O rdered By: Jamil Santos on 01-09-2023 Beta HCG ( test) Ql Negative Negative [facility] Interpretation and review of laboratory results Normal [facility] PT,INR,PTTon 01-09-2023 aPTT Coag (PPP) [Time] 31.1 s [facility] INR Coag (Bld) [Relative time] 1.0 {INR} 0.9 - 1.1 [facility] Interpretation and review of laboratory results Normal [facility] PT Coag (PPP) [Time] 13.0 s [facility] SCREEN: MRSA/MSSAOrdered By: Alexandra Slater on 01-09-2023 Interpretation and review of laboratory results Abnormal [facility] Methicillin Resistant S. Aureus By Pcr Negative Negative [facility] Staphylococcus Aureus By Pcr Positive Abnormal Negative [facility] This test was perfor med using [...] by the Clinical Microbiology Laboratory at [facility]. It has not been cleared or approved by the FDA.The laboratory is regulated under CLIA as qualified to perform high-complexity testing. This test is used for clinical purposes. It should not be regarded as investigational or for research. [facility] XR Cervical and thoracic and lumbar [...] IMPRESSION: Intact vagus nerve stimulator as described. [facility] Radiology [facility] (narrative) [facility] Cervical and thoracic and lumbar spine ViewsOrdered By: Alice Crespo on 01-09-2023 [facility] Work Phone: [phone] PROGESTERONEon 05-24-2022 Progesterone 5.5 ng/mL Normal [facility] Comment on above: Result Comment: Foll icular phase 0.1 - 0.9 Luteal phase 1.8 - 23.9 Ovulation phase 0.1 - 12.0 First trimester 11.0 - 44.3 Second trimester 25.4 - 83.3 Third trimester 58.7 - 214.0 Postmenopausal 0.0 - 0.1 Performed By: #### P DANIEL #### [facility] [address] [place] [address] Dr. Nicol Oswald LAMOTRIGINEon 05-02-2022 Lamotrigine, Serum 4.7 ug/mL Normal 2.0-20.0 [facility] Comment on above: Result Comment: Dete ction Limit = 1.0 Performed By: #### P ROGES #### [facility] [address] [place] [address] Dr. Nicol Oswald CBC AUTO DIFFon 04-30-2022 BASO # 0.0 103/ul Normal 0.0-0.1 [facility] Comment on above: Performed By: #### C BC #### [facility] [address] [place] [address] Dr. Nicol Oswald Basophils/100 WBC (Bld) 0.4 % Normal 0.2-2.0 [facility] Comment on above: Performed By: #### C BC #### [facility] [address] [place] [address] Dr. Nicol Oswald EO # 0.2 103/ul Normal 0.0-0.7 [facility] Comment on above: Performed By: #### C BC #### [facility] [address] [place] [address] Dr. Nicol Oswald Eosinophils/100 WBC (Bld) 1.9 % Normal 0.9-7.0 [facility] Comment on above: Performed By: #### C BC #### [facility] [address] [place] [address] Dr. Nicol Oswald Erythrocyte distribution width (RBC) [Ratio] 12.8 % Normal 11.0-15.0 [facility] Comment on above: Performed By: #### C BC #### [facility] [address] [place] [address] Dr. Nicol Oswald Hematocrit (Bld) [Volume fraction] 40.4 % Normal 36.0-48.0 [facility] Comment on above: Performed By: #### C BC #### [facility] [address] [place] [address] Dr. Nicol Oswald Hemoglobin (Bld) [Mass/Vol] 13.6 g/dL Normal 12.0-16.0 [facility] [facility] Comment on above: Performed By: #### C BC #### [facility] [address] [place] [address] Dr. Nicol Oswald IG # 0.03 10e3/ul Normal 0.00-0.03 [facility] Comment on above: Performed By: #### C BC #### [facility] [address] [place] [address] Dr. Nicol Oswald IG % 0.4 % Normal 0.0-0.5 [facility] Comment on above: Performed By: #### C BC #### [facility] [address] [place] [address] Dr. Nicol Oswald LYMPH # 3.1 103/ul Normal 1.2-3.8 [facility] Comment on above: Performed By: #### C BC #### [facility] [address] [place] [address] Dr. Nicol Oswald Lymphocytes/100 WBC (Bld) 36.4 % Normal 20.5-60.0 [facility] Comment on above: Performed By: #### C BC #### [facility] [address] [place] [address] Dr. Nicol Oswald MANUAL DIFF REQ NO Normal [facility] Comment on above: Performed By: #### C BC #### [facility] [address] [place] [address] Dr. Nicol Oswald MCH (RBC) [Entitic mass] 31.0 pg Normal 26.7-34.0 [facility] Comment on above: Performed By: #### C BC #### [facility] [address] [place] [address] Dr. Nicol Oswald MCHC (RBC) [Mass/Vol] 33.7 g/dL Normal 29.9-35.2 [facility] Comment on above: Performed By: #### C BC #### [facility] [address] [place] [address] Dr. Nicol Oswald MCV (RBC) [Entitic vol] 92.0 fL Normal 81.0-99.0 [facility] Comment on above: Performed By: #### C BC #### [facility] [address] [place] [address] Dr. Nicol Oswald MONO # 0.7 103/ul Normal 0.3-0.8 [facility] Comment on above: Performed By: #### C BC #### [facility] [address] [address] [address] Nicol Oswald Monocytes/100 WBC (Bld) 7.7 % Normal 1.7-12.0 [facility] Comment on above: Performed By: #### C BC #### [facility] [address] [address] [address] Nicol Oswald NEUT # 4.5 103/ul Normal 1.4-6.5 [facility] Comment on above: Performed By: #### C BC #### [facility] [address] [place] [address] Dr. Nicol Oswald Neutrophils/100 WBC (Bld) 53.2 % Normal 43.0-75.0 [facility] Comment on above: Performed By: #### C BC #### [facility] [address] [place] [address] Dr. Nicol Oswald Platelet mean volume (Bld) [Entitic vol] 11.0 fL Normal 9.5-13.5 [facility] Comment on above: Performed By: #### C BC #### [facility] [address] [place] [address] Dr. Nicol Oswald PLT 282 103/ul Normal 150-450 [facility] Comment on above: Performed By: #### C BC #### [facility] [address] [place] [address] Dr. Nicol Oswald RBC 4.39 106/ul Normal 4.20-5.40 [facility] Comment on above: Performed By: #### C BC #### [facility] [address] [place] [address] Dr. Nicol Oswald WBC 8.4 103/ul Normal 4.0-11.0 [facility] Comment on above: Performed By: #### C BC #### [facility] [address] [place] [address] Dr. Nicol Oswald LIVER PROFILEon 04-30-2022 Albumin [Mass/Vol] 4.1 g/dL Normal 3.4-5.0 [facility] Comment on above: Performed By: #### P DANIEL #### [facility] [address] [address] [address] Nicol Oswald Albumin/Globulin [Mass ratio] 1.2 {ratio} Normal [facility] Comment on above: Performed By: #### P DANIEL #### [facility] [address] [address] [address] Nicol Oswald ALP [Catalytic activity/Vol] 52 U/L Normal 46-116 [facility] Comment on above: Performed By: #### P JASONES #### [facility] [address] [address] [address] Nicol Oswald ALT [Catalytic activity/Vol] 23 U/L Normal 14-59 [facility] Comment on above: Performed By: #### P DANIEL #### [facility] [address] [place] [address] Dr. Nicol Oswald AST [Catalytic activity/Vol] 17 U/L Normal 15-37 [facility] Comment on above: Performed By: #### P DANIEL #### [facility] [address] [place] [address] Dr. Nicol Oswald BILI, CONJUGATED 0.1 mg/dL Normal 0.0-0.2 [facility] Comment on above: Performed By: #### P DANIEL #### [facility] [address] [place] [address] Dr. Nicol Oswald Bilirubin [Mass/Vol] 0.2 mg/dL Normal 0.2-1.0 [facility] Comment on above: Performed By: #### P DANIEL #### [facility] [address] [place] [address] Dr. Nicol Oswald Globulin (S) [Mass/Vol] 3.4 g/dL Normal [facility] Comment on above: Performed By: #### P DANIEL #### [facility] [address] [place] [address] Dr. Nicol Oswald Protein [Mass/Vol] 7.5 g/dL Normal 6.4-8.2 [facility] Comment on above: Performed By: #### P DANIEL #### [facility] [address] [address] [address] Nicol Oswald PROF CHEM 8 (BAS METB)on Anion gap [Moles/Vol] 8.5 mmol/L Normal [facility] Comment on above: Performed By: #### P JASONES #### [facility] [address] [address] [address] Nicol Oswald Calcium [Mass/Vol] 9.4 mg/dL Normal 8.5-10.1 [facility] [place] [facility] Comment on above: Performed By: #### P ROGES #### [facility] [address] [address] [address] Nicol Oswald Chloride [Moles/Vol] 102 mmol/L Normal 98-[address] [facility] Comment on above: Performed By: #### P DANIEL #### [facility] [address] [place] [address] Dr. Nicol Oswald CO2 [Moles/Vol] 30.4 mmol/L Normal 21.0-32.0 [facility] Comment on above: Performed By: #### P DANIEL #### [facility] [address] [address] [address] Nicol Oswald Creatinine [Mass/Vol] 0.57 mg/dL Normal 0.55-1.02 [facility] Comment on above: Performed By: #### P DANIEL #### [facility] [address] [address] [address] Nicol Oswald EGFR-AF ESTONIAN >60 Normal >=60 [facility] Comment on above: Performed By: #### P ROGES #### [facility] [address] [address] [address] Nicol Oswald EGFR-NON AF ESTONIAN >60 Normal >=[address] [facility] Comment on above: Performed By: #### P DANIEL #### [facility] [address] [place] [address] Dr. Nicol Oswald Glucose [Mass/Vol] 89 mg/dL Normal 74-106 [facility] Comment on above: Performed By: #### P ROGLYNDA #### [facility] [address] [place], [place] [address] Dr. Nicol Oswald Potassium [Moles/Vol] 3.9 mmol/L Normal 3.5-5.1 [facility] Comment on above: Performed By: #### P DANIEL #### [facility] [address] [place], [place] [address] Dr. Nicol Oswald Sodium [Moles/Vol] 137 mmol/L Normal 136-145 [facility] Comment on above: Performed By: #### P DANIEL #### [facility] [address] [address] [address] Nicol Oswald Urea nitrogen [Mass/Vol] 10.0 mg/dL Normal 7.0-18.0 [facility] Comment on above: Performed By: #### P DANIEL #### [facility] [address] [address] [address] Nicol Oswald Urea nitrogen/Creatinine [Mass ratio] 17.5 mg/mg Normal [facility] Comment on above: Performed By: #### P DANIEL #### [facility] [address] [address] [address] Nicol Oswald ESTROGENon 04-19-2022 Estrogens, Total 124 pg/mL Normal [facility] Comment on above: Result Comment: Prep ubertal < 40 Female Cycle: 1-10 Days 16 - 328 11-20 Days 34 - 501 21-30 Days 48 - 350 Post-Menopausal 40 - 244 Performed By: #### E KYLIE #### [facility] [id number] Nicol Oswald DHEA SERUMon 04-18-2022 Dehydroepiandrosterone (DHEA) 371 ng/dL Normal 31-701 [facility] Comment on above: Result Comment: Age [...] 89 Performed By: #### P DANIEL #### [facility] [id number] Nicol Oswald DHEA-SULFATEon 04-16-2022 DHEA-Sulfate 371.0 ug/dL Normal 84.8-378.0 [facility] Comment on above: Performed By: #### P DANIEL #### [facility] [address] [place] [address] Dr. Nicol Oswald FSHon 04-16-2022 FSH 5.6 mIU/mL Normal [facility] Comment on above: Result Comment: Adul t Female: Follicular phase 3.5 - 12.5 Ovulation phase 4.7 - 21.5 Luteal phase 1.7 - 7.7 Postmenopausal 25.8 - 134.8 Performed By: #### P DANIEL #### [facility] [address] [place] [address] Dr. Nicol Oswald LUTEINIZING HORMONE (LH)on 0 04-16-2022 LH 12.9 mIU/mL Normal [facility] Comment on above: Result Comment: Adul t Female: Follicular phase 2.4 - 12.6 Ovulation phase 14.0 - 95.6 Luteal phase 1.0 - 11.4 Postmenopausal 7.7 - 58.5 Performed By: #### P ROGES #### [facility] [address] [place] [address] Dr. Nicol Oswald PROGESTERONEon 04-16-2022 Progesterone 0.2 ng/mL Normal [facility] Comment on above: Result Comment: Foll icular phase 0.1 - 0.9 Luteal phase 1.8 - 23.9 Ovulation phase 0.1 - 12.0 First trimester 11.0 - 44.3 Second trimester 25.4 - 83.3 Third trimester 58.7 - 214.0 Postmenopausal 0.0 - 0.1 Performed By: #### P ROGES #### [facility] [address] [place] [address] Dr. Nicol Oswald PROLACTINon 04-16-2022 Prolactin 7.1 ng/mL Normal 4.8-23.3 [facility] Comment on above: Performed By: #### P ROLAC #### [facility] [address] [place] [address] Dr. Nicol Oswald US PELVIS AND TRANSVAGon [...] CYDNEY VALDEZ Date: 2022-04-16 08:48 Normal [address] [facility] CBC AUTO DIFFon 04-15-2022 BASO # 0.0 103/ul Normal 0.0-0.1 [facility] Comment on above: Performed By: #### C BC #### [facility] [address] [place] [address] Dr. Nicol Oswald Basophils/100 WBC (Bld) 0.5 % Normal 0.2-2.0 [facility] Comment on above: Performed By: #### C BC #### [facility] [address] [place] [address] Dr. Nicol Oswald EO # 0.2 103/ul Normal 0.0-0.7 [facility] Comment on above: Performed By: #### C BC #### [facility] [address] [place] [address] Dr. Nicol Oswald Eosinophils/100 WBC (Bld) 2.1 % Normal 0.9-7.0 [facility] Comment on above: Performed By: #### C BC #### [facility] [address] [place] [address] Dr. Nicol Oswald Erythrocyte distribution width (RBC) [Ratio] 12.5 % Normal 11.0-15.0 [facility] Comment on above: Performed By: #### C BC #### [facility] [address] [place] [address] Dr. Nicol Oswald Hematocrit (Bld) [Volume fraction] 44.7 % Normal 36.0-48.0 [facility] Comment on above: Performed By: #### C BC #### [facility] [address] [place] [address] Dr. Nicol Oswald Hemoglobin (Bld) [Mass/Vol] 14.3 g/dL Normal 12.0-16.0 [facility] Comment on above: Performed By: #### C BC #### [facility] [address] [place] [address] Dr. Nicol Oswald IG # 0.01 10e3/ul Normal 0.00-0.03 [facility] Comment on above: Performed By: #### C BC #### [facility] [address] [place] [address] Dr. Nicol Oswald IG % 0.1 % Normal 0.0-0.5 [facility] Comment on above: Performed By: #### C BC #### [facility] [address] [place] [address] Dr. Nicol Oswald LYMPH # 2.0 103/ul Normal 1.2-3.8 [facility] Comment on above: Performed By: #### C BC #### [facility] [address] [place] [address] Dr. Nicol Oswald Lymphocytes/100 WBC (Bld) 26.0 % Normal 20.5-60.0 [facility] Comment on above: Performed By: #### C BC #### [facility] [address] [place] [address] Dr. Nicol Oswald MANUAL DIFF REQ NO Normal [facility] Comment on above: Performed By: #### C BC #### [facility] [address] [place] [address] Dr. Nicol Oswald MCH (RBC) [Entitic mass] 30.8 pg Normal 26.7-34.0 [facility] Comment on above: Performed By: #### C BC #### [facility] [address] [address] [address] iNcol Oswald MCHC (RBC) [Mass/Vol] 32.0 g/dL Normal 29.9-35.2 [facility] Comment on above: Performed By: #### C BC #### [facility] [address] [address] [address] Nicol Oswald MCV (RBC) [Entitic vol] 96.3 fL Normal 81.0-99.0 [facility] Comment on above: Performed By: #### C BC #### [facility] [address] [place] [address] Dr. Nicol Oswald MONO # 0.6 103/ul Normal 0.3-0.8 [facility] Comment on above: Performed By: #### C BC #### [facility] [address] [place] [address] Dr. Nicol Oswald Monocytes/100 WBC (Bld) 7.3 % Normal 1.7-12.0 [facility] Comment on above: Performed By: #### C BC #### [facility] [address] [place] [address] Dr. Nicol Oswald NEUT # 4.9 103/ul Normal 1.4-6.5 [facility] Comment on above: Performed By: #### C BC #### [facility] [address] [place] [address] Dr. Nicol Oswald Neutrophils/100 WBC (Bld) 64.0 % Normal 43.0-75.0 [facility] Comment on above: Performed By: #### C BC #### [facility] [address] [address] [address] Nicol Oswald Platelet mean volume (Bld) [Entitic vol] 11.3 fL Normal 9.5-13.5 [facility] Comment on above: Performed By: #### C BC #### [facility] [address] [place] [address] Dr. Nicol Oswald PLT 302 103/ul Normal 150-450 [facility] Comment on above: Performed By: #### C BC #### [facility] [address] [place] [address] Dr. Nicol Oswald RBC 4.64 106/ul Normal 4.20-5.40 [facility] Comment on above: Performed By: #### C BC #### [facility] [address] [place] [address] Dr. Nicol Oswald WBC 7.7 103/ul Normal 4.0-11.0 [facility] Comment on above: Performed By: #### C BC #### [facility] [address] [place] [address] Dr. Nicol Oswald FREE T4on 04-15-2022 Free T4 [Mass/Vol] 0.80 ng/dL Normal 0.76-1.46 [facility] Comment on above: Performed By: #### F T4 #### [facility] [address] [place] [address] Dr. Nicol Oswald GLYCOHEMOGLOBIN A1Con 2022 ADA RECOMMENDATION SEE BELOW Normal [facility] [place] [facility] Comment on above: Result Comment: ADA RECOMMENDED LIMIT 4.0 - 6.0 ADA THERAPEUTIC TARGET < 7.0 ACTION SUGGESTED > 7.0 Performed By: #### A 1C #### [facility] [address] [place] [address] Dr. Nicol Oswald Glucose [Mass/Vol] 114 mg/dL Normal [facility] [place] [facility] Comment on above: Performed By: #### A 1C #### [facility] [address] [place] [address] Dr. Nicol Oswald HbA1c (Bld) [Mass fraction] 5.6 % Normal 4.5-6.2 [facility] Comment on above: Performed By: #### A 1C #### [facility] [address] [place] [address] Dr. Nicol Oswald PREG QUANT HCGon 04-15-2022 HCG QUANT <1 Normal [facility] Comment on above: Performed By: #### P REGQNT, TSH #### [facility] [address] [place] [address] Dr. Nicol Oswald HCG RANGE SEE BELOW Normal [facility] Comment on above: Result Comment: 5-50 0.2-1 WEEK 50-500 1-2 WEEKS 100-5,000 2-3 WEEKS 500-10,000 3-4 WEEKS 1,000-50,000 4-5 WEEKS 10,000-100,000 5-6 WEEKS 15,000-200,000 6-8 WEEKS 10,000-100,000 2-3 MONTHS Performed By: #### P REGHEMALATHA, TSH #### [facility] [address] [address] [address] Nicol Oswald TSHon 04-15-2022 TSH 1.312 uIU/mL Normal 0.358-3.740 [facility] Comment on above: Performed By: #### P PAUL, TSH #### [facility] [address] [place] [address] Dr. Nicol Oswald PAP ACOG PANEL 2: 21 to 29on 08-31-2021 . . Normal [facility] Comment on above: Performed By: #### P DANIEL #### [facility] [address] [place] [address] Dr. Nicol Oswald Age Gdln ACOG Testing 23- [facility] Comment on above: Performed By: #### P DANIEL #### [facility] [address] [place] [address] Dr. Nicol Oswald DIAGNOSIS: Comment [facility] Comment on above: Result Comment: NEGA TIVE FOR INTRAEPITHELIAL LESION OR MALIGNANCY. THIS SPECIMEN WAS RESCREENED PART OF OUR [employer] TE[employer] PROGRAM. Performed By: #### P JASONES #### [facility] [address] [place] [address] Dr. Nicol Oswald Methodology: Comment [facility] Comment on above: Result Comment: This liquid based ThinPrep(R) pap test was screened with the use of an image guided system. Performed By: #### P DANIEL #### [facility] [address] [place] [address] Dr. Nicol Oswald Note: Comment [facility] Comment on above: Result Comment: The Pap smear is a screening test designed to aid in the detection of premalignant and malignant conditions of the uterine cervix. It is not a diagnostic procedure and should not be used as the sole means of detecting cervical cancer. Both false-positive and false-negative reports do occur. . Performed By: #### P DANIEL #### [facility] [address] [address] [address] Nicol Oswald Performed by: Comment Normal [facility] Comment on above: Result Comment: Mireille Blanco, Professor Of Medicine (ASCP) Performed By: #### P DANIEL #### [facility] [address] [address] [address] Nicol Oswald QC reviewed by: Comment Normal [facility] Comment on above: Result Comment: Tahira Roque, Professor Of Medicine (ASCP) Performed By: #### P DANIEL #### [facility] [address] [place] [address] Dr. Nicol Oswald Reflex Criteria: Comment Normal [facility] Comment on above: Result Comment: The HPV DNA reflex criteria were not met with this specimen result therefore, no HPV testing was performed. . Performed By: #### P DANIEL #### [facility] [address] [address] [address] Nicol Oswald Specimen adequacy: Comment Normal [facility] Comment on above: Result Comment: Sati sfactory for evaluation. Endocervical and/or squamous metaplastic cells (endocervical component) are present. Performed By: #### P DANIEL #### [facility] [address] [place] [address] Dr. Nicol Oswald CBC Auto Diff Reflex Manualo n 02-18-2019 Automated Absolute Neutrophil 5.73 10*3/mm3 Normal [facility] Comment on above: Result Comment: Auto mated Absolute Neutrophil Count (ANC) is directly measured using a hematology instrument. ANC determined from manual differential cell count may differ. No [facility] reference range has been validated for this assay. Performed By: #### C D #### Performed at [facility], [address] [place] [id number] Basophil 0.5 % Normal 0.0-1.0 [facility] Comment on above: Performed By: #### C D #### [place] [address] Differential Type Automated Normal [facility] Comment on above: Performed By: #### C D #### [place] [address] Eosinophil 1.6 % Normal 1.0-4.0 [facility] Comment on above: Performed By: #### C D #### [place] [address] Erythrocyte distribution width (RBC) [Ratio] 13.4 % Normal 10-14.1 [facility] Comment on above: Performed By: #### C D #### [place] [address] Lymphocyte 22.6 % Low 24.0-44.0 [facility] Comment on above: Performed By: #### C D #### [place] [address] MCH (RBC) [Entitic mass] 30.7 pg Normal 26-34 [facility] Comment on above: Performed By: #### C D #### [place] [address] MCHC (RBC) [Mass/Vol] 33.2 % Normal 31.0-37.0 [facility] Comment on above: Performed By: #### C D #### [place] [address] MCV (RBC) [Entitic vol] 92.4 fL Normal 80-100 [facility] Comment on above: Performed By: #### C D #### [place] [address] Monocyte 8.2 % High 1.0-7.0 [facility] Comment on above: Performed By: #### C D #### [place] [address] Neutrophil 67.1 % Normal 41.0-77.0 [facility] Comment on above: Performed By: #### C D #### [place] [address] Platelet mean volume (Bld) [Entitic vol] 11.5 fL Normal 9.3-13.0 [facility] Comment on above: Performed By: #### C D #### Performed at [address] [address] Platelets (Bld) [#/Vol] 268 10*3/uL Normal 140-440 [facility] Comment on above: Performed By: #### C D #### Performed at [address] [address] RBC (Bld) [#/Vol] 4.60 10*6/uL Normal 4.0-5.2 [facility] Comment on above: Performed By: #### C D #### Performed at [address] [address] WBC (Bld) [#/Vol] 8.6 10*3/uL Normal 4.5-11 [facility] Comment on above: Performed By: #### C D #### Performed at [address] [address] Comprehensive Metabolic Pane mehran 02-18-2019 Albumin [Mass/Vol] 4.7 g/dL Normal 3.4-5.2 [facility] [facility] ALP [Catalytic activity/Vol] 47 U/L Low 50-136 [facility] ALT [Catalytic activity/Vol] 32 U/L Normal <40 [facility] AST [Catalytic activity/Vol] 29 U/L Normal 15-50 [facility] Bilirubin Ql (U) 0.2 mg/dL Normal 0.1-1.0 [facility] Calcium [Mass/Vol] 9.8 mg/dL Normal 8-10.5 [facility] Chloride [Moles/Vol] 104 mmol/L Normal 95-106 [facility] CO2 [Moles/Vol] 25 mmol/L Normal 24-35 [facility] Creatinine [Mass/Vol] 0.52 mg/dL Normal 0.5-1 [facility] Glucose [Mass/Vol] 135 mg/dL High 60-115 [facility] Potassium [Moles/Vol] 4.5 mmol/L Normal 3.7-5.3 [facility] Protein [Mass/Vol] 8.0 g/dL Normal 6.4-8.4 [facility] Sodium [Moles/Vol] 140 mmol/L Normal 135-145 [facility] Urea nitrogen [Mass/Vol] 15 mg/dL Normal 5-18 [facility] Valproic Acidon 02-18-2019 Valproic Acid 47.1 ug/mL Low 50.0-100.0 [facility] PAP, THIN PREP WITH IMAGINGo n 06-29-2018 PAP, THIN PREP WITH IMAGING Normal [facility] Comment on above: Result Comment: INTE RPRETATION Thin Prep Image-Guided Pap Test (Cervical/Endocervical) NEGATIVE FOR INTRAEPITHELIAL LESION /MALIGNANCY Satisfactory for evaluation (Endocervical/transformation zone component present) [facility]06/27/2018 The Pap test is a screening test, [...] 05/18/18 ICD-CM DIAGNOSIS CODE(S) Z01.419 Encntr For Stenciling Machine Tender Exam (general) (routine) W/o Abn Findings * * EFFECTIVE 06/08/2018 * * CLINICAL CHEMISTRY PLATFORM CHANGES ARE ASSOCIATED WITH * * REFERENCE RANGE CHANGES FOR A NUMBER OF ANALYTES. PLEASE * * REVIEW REFERENCE INTERVALS CAREFULLY * * [facility] [address] [address] CLIA No. [id number] CAP Accreditation No. [id number] Engineering Manager Electronics: Johnson Garland M.D. [facility] Accession Number: [id number] Performed By: #### P L PAP W/IMAGE #### [address] [address] [address] Nucleic-Acid Probe-Endoce rvical Swabon 06-24-2018 CT Nucleic-Acid Probe-Endocervical Swab Negative Normal NEGATIVE [facility] Comment on above: Performed By: #### G C Amp Endocerv, CT Amp Endocerv #### [address] [address] Age at specimen collection = Normal [facility] Comment on above: Performed By: #### G C Amp Endocerv, CT Amp Endocerv #### [address] [address] Performed By: #### P L PAP W/IMAGE #### [address] [address] GC Nucleic-Acid Probe-Endoce rvical Swabon 06-24-2018 GC Nucleic-Acid Probe-Endocervical Swab Negative Normal NEGATIVE [facility] Comment on above: Performed By: #### G C Amp Endocerv, CT Amp Endocerv #### [address] [address] Platelet Functionon 03-24-19 19 Collagen/ADP 148 sec High 67-112 [facility] Comment on above: Performed By: #### P FA #### [facility] [address] [place] [address] Collagen/EPI 228 sec High 85-172 [facility] Comment on above: Performed By: #### P FA #### [facility] [address] [place], [place] [id number] Interpretation Abnormal platelet function. Normal [facility] Comment on above: Result Comment: Comm [...] established. Performed By: #### P FA #### [facility] [address] [place], [place] [id number] XR ANKLE RIGHT STANDARDon XR ANKLE RIGHT STANDARD Radiology exam i s complete. No Radiologist dictation. Please follow up with ordering provider. Final result Normal [facility] Vital Signs Date Time Vital Sign Value Performing Clinician Facility 07-20-2024 11:33-0400 Body mass index (BMI) [Ratio] 34.52 kg/m2 [employer] DO Work Phone: [facility] 07-20-2024 11:33-0400 Body weight 89.81 kg [employer] DO Work Phone: [facility] 07-20-2024 11:33-0400 Diastolic blood pressure 70 mm[Hg] [employer] Work Phone: [facility] 07-20-2024 11:33-0400 Systolic blood pressure 118 mm[Hg] [employer] DO Work Phone: [facility] 09-24-2023 10:29-0400 Body height 170.18 cm [facility] 09-24-2023 10:29-0400 Body mass index (BMI) [Ratio] 30.2 kg/m2 [facility] 09-24-2023 10:29-0400 Body weight 87.54 kg [facility] 09-24-2023 10:29-0400 Diastolic blood pressure 78 mm[Hg] [facility] 09-24-2023 10:29-0400 Heart rate 67 /min [facility] 09-24-2023 10:29-0400 SaO2% (BldA) [Mass fraction] 98 % [facility] 09-24-2023 10:29-0400 Systolic blood pressure 112 mm[Hg] [facility] 08-21-2023 14:43-0400 Body height 161.3 cm Cori Maturu V, DO Work Phone: [facility] Comment on above: verbal 08-21-2023 14:43-0400 Body mass index (BMI) [Ratio] 34.59 kg/m2 Cori Maturu V, DO Work Phone: [facility] 08-21-2023 14:43-0400 Body temperature 98.29 [degF] Cori Maturu V, DO Work Phone: [facility] 08-21-2023 14:43-0400 Body weight 89.99 kg Cori Maturu V, DO Work Phone: [facility] 08-21-2023 14:43-0400 Diastolic blood pressure 76 mm[Hg] Cori Maturu V, DO Work Phone: [facility] 08-21-2023 14:43-0400 Heart rate 88 /min Cori Maturu V, DO Work Phone: [facility] 08-21-2023 14:43-0400 Systolic blood pressure 130 mm[Hg] Cori Maturu V, DO Work Phone: [facility] 07-07-2023 14:37-0400 Body height 170.18 cm [facility] 07-07-2023 14:37-0400 Body mass index (BMI) [Ratio] 30.8 kg/m2 [facility] 07-07-2023 14:37-0400 Body weight 89.35 kg [facility] 07-07-2023 14:37-0400 Diastolic blood pressure 78 mm[Hg] [facility] 07-07-2023 14:37-0400 Heart rate 81 /min [facility] 07-07-2023 14:37-0400 SaO2% (BldA) [Mass fraction] 98 % [facility] 07-07-2023 14:37-0400 Systolic blood pressure 112 mm[Hg] [facility] 05-28-2023 14:04-0400 Body height 161.3 cm Petra Silveira MEETING/EVENT PLANNER-CONDUIT HELPER Work Phone: [facility] 05-28-2023 14:04-0400 Body mass index (BMI) [Ratio] 34.09 kg/m2 Petra Raoul MEETING/EVENT PLANNER-CONDUIT HELPER Work Phone: [facility] 05-28-2023 14:04-0400 Body temperature 98.01 [degF] Crystal Raoul MEETING/EVENT PLANNER-CONDUIT HELPER Work Phone: [facility] 05-28-2023 14:04-0400 Body weight 88.68 kg Petra Raoul MEETING/EVENT PLANNER-CONDUIT HELPER Work Phone: [facility] 05-28-2023 14:04-0400 Diastolic blood pressure 74 mm[Hg] Petra Raoul MEETING/EVENT PLANNER-CONDUIT HELPER Work Phone: [facility] 05-28-2023 14:04-0400 Heart rate 92 /min Petra Raoul MEETING/EVENT PLANNER-CONDUIT HELPER Work Phone: [facility] 05-28-2023 14:04-0400 Systolic blood pressure 122 mm[Hg] Crystal Raoul MEETING/EVENT PLANNER-CONDUIT HELPER Work Phone: [facility] 04-22-2023 13:04-0500 Body mass index (BMI) [Ratio] 34 kg/m2 Donovan Kimmie DO Work Phone: [facility] 04-22-2023 13:04-0500 Body weight 88.45 kg Donovan Kimmie DO Work Phone: [facility] 04-22-2023 13:04-0500 Diastolic blood pressure 78 mm[Hg] Donovan Kimmie DO Work Phone: [facility] 04-22-2023 13:04-0500 Systolic blood pressure 120 mm[Hg] Donovan Kimmie DO Work Phone: [facility] 02-14-2023 15:48-0500 Body height 161.3 cm Crystal Raoul MEETING/EVENT PLANNER-CONDUIT HELPER Work Phone: [facility] Comment on above: verbal 02-14-2023 15:48-0500 Body mass index (BMI) [Ratio] 34.82 kg/m2 Crystal Raoul MEETING/EVENT PLANNER-CONDUIT HELPER Work Phone: [facility] 02-14-2023 15:48-0500 Body temperature 97.9 [degF] Crystal Raoul MEETING/EVENT PLANNER-CONDUIT HELPER Work Phone: [facility] 02-14-2023 15:48-0500 Body weight 90.58 kg Crystal Raoul MEETING/EVENT PLANNER-CONDUIT HELPER Work Phone: [facility] 02-14-2023 15:48-0500 Diastolic blood pressure 79 mm[Hg] Crystal Raoul MEETING/EVENT PLANNER-CONDUIT HELPER Work Phone: [facility] 02-14-2023 15:48-0500 Heart rate 107 /min Crystal Raoul MEETING/EVENT PLANNER-CONDUIT HELPER Work Phone: [facility] 02-14-2023 15:48-0500 Systolic blood pressure 133 mm[Hg] Crystal Raoul MEETING/EVENT PLANNER-CONDUIT HELPER Work Phone: [facility] 01-15-2023 13:50-0500 Body temperature 97.5 [degF] Andi Smith MD Work Phone: [facility] 01-15-2023 13:50-0500 Diastolic blood pressure 79 mm[Hg] Andi Smith MD Work Phone: [facility] 01-15-2023 13:50-0500 Heart rate 78 /min Andi Smith MD Work Phone: [facility] 01-15-2023 13:50-0500 Respiratory rate 16 /min Andi Smith MD Work Phone: [facility] 01-15-2023 13:50-0500 SaO2% (BldA) [Mass fraction] 98 % Andi Smith MD Work Phone: [facility] 01-15-2023 13:50-0500 Systolic blood pressure 117 mm[Hg] Andi Smith MD Work Phone: [phone] [address] 01-15-2023 07:50-0500 Body height 161.3 cm Andi Smith MD Work Phone: [phone] [place] [address] 01-15-2023 07:50-0500 Body mass index (BMI) [Ratio] 34.37 kg/m2 Andi Smith MD Work Phone: [facility] 01-15-2023 07:50-0500 Body weight 89.4 kg Andi Smith MD Work Phone: [facility] 01-09-2023 08:39-0400 Body height 161.3 cm Esau Gage PAC Work Phone: [facility] 01-09-2023 08:39-0400 Body mass index (BMI) [Ratio] 33.65 kg/m2 Esau Gage PAC Work Phone: [facility] 01-09-2023 08:39-0400 Body temperature 98.49 [degF] Esau Gage PAC Work Phone: [facility] 01-09-2023 08:39-0400 Body weight 87.54 kg Esau Gage PAC Work Phone: [facility] 01-09-2023 08:39-0400 Diastolic blood pressure 80 mm[Hg] Esau Gage PAC Work Phone: [facility] 01-09-2023 08:39-0400 Heart rate 81 /min Esau Gage PAC Work Phone: [facility] 01-09-2023 08:39-0400 Respiratory rate 18 /min Esau Gage PAC Work Phone: [facility] 01-09-2023 08:39-0400 SaO2% (BldA) [Mass fraction] 98 % Esau Gage PAC Work Phone: [facility] 01-09-2023 08:39-0400 Systolic blood pressure 134 mm[Hg] Esau Gage PAC Work Phone: [facility] 12-10-2022 10:53-0400 Body height 160 cm Andi Smith MD Work Phone: [facility] 12-10-2022 10:53-0400 Body mass index (BMI) [Ratio] 34.19 kg/m2 Andi Smith MD Work Phone: [facility] 12-10-2022 10:53-0400 Body weight 87.54 kg Andi Smith MD Work Phone: [facility] 12-10-2022 10:53-0400 Diastolic blood pressure 63 mm[Hg] Andi Smith MD Work Phone: [facility] 12-10-2022 10:53-0400 Heart rate 65 /min Andi Smith MD Work Phone: [facility] 12-10-2022 10:53-0400 Systolic blood pressure 125 mm[Hg] Andi Smith MD Work Phone: [facility] 11-08-2022 16:21-0400 Body height 160 cm Petra MORELOS Work Phone: [facility] Comment on above: verbal 11-08-2022 16:21-0400 Body mass index (BMI) [Ratio] 34.26 kg/m2 Crystal Raoul MEETING/EVENT PLANNER-CONDUIT HELPER Work Phone: [facility] 11-08-2022 16:21-0400 Body temperature 99.1 [degF] Crystal Raoul MEETING/EVENT PLANNER-CONDUIT HELPER Work Phone: [facility] 11-08-2022 16:21-0400 Body weight 87.73 kg Petra Raoul MEETING/EVENT PLANNER-CONDUIT HELPER Work Phone: [facility] 11-08-2022 16:21-0400 Diastolic blood pressure 71 mm[Hg] Crystal Raoul MEETING/EVENT PLANNER-CONDUIT HELPER Work Phone: [facility] 11-08-2022 16:21-0400 Heart rate 97 /min Crystal Raoul MEETING/EVENT PLANNER-CONDUIT HELPER Work Phone: [facility] 11-08-2022 16:21-0400 Systolic blood pressure 116 mm[Hg] Crystal Raolu MEETING/EVENT PLANNER-CONDUIT HELPER Work Phone: [facility] 07-04-2021 09:38-0400 Body height 161.3 cm Petra Raoul MEETING/EVENT PLANNER-CONDUIT HELPER Work Phone: [facility] Comment on above: verbal 07-04-2021 09:38-0400 Body mass index (BMI) [Ratio] 36.23 kg/m2 Petra Raoul MEETING/EVENT PLANNER-CONDUIT HELPER Work Phone: [facility] 07-04-2021 09:38-0400 Body temperature 98.71 [degF] Crystal Raoul MEETING/EVENT PLANNER-CONDUIT HELPER Work Phone: [facility] 07-04-2021 09:38-0400 Body weight 94.26 kg Petra Raoul MEETING/EVENT PLANNER-CONDUIT HELPER Work Phone: [facility] 07-04-2021 09:38-0400 Diastolic blood pressure 70 mm[Hg] Crystal Raoul MEETING/EVENT PLANNER-CONDUIT HELPER Work Phone: [facility] 07-04-2021 09:38-0400 Heart rate 73 /min Petra Silveira MEETING/EVENT PLANNER-CONDUIT HELPER Work Phone: [facility] 07-04-2021 09:38-0400 Systolic blood pressure 119 mm[Hg] Petra Silveira MEETING/EVENT PLANNER-CONDUIT HELPER Work Phone: [facility] Encounters Encounter Date Encounter Type Care Provider Facility Start: 10-28-2024 End: 10-28-2024 Bamboo flowsheet Donovan Kimmie DO Work Phone: [facility] Start: 10-28-2024 End: 11-01-2024 Bamboo flowsheet Donovan Kimmie DO Work Phone: [facility] Start: 10-28-2024 End: 11-01-2024 Clinisync Result Encounter Donovan Kimmie DO Work Phone: [facility] Unsolicited Start: 10-28-2024 End: 10-28-2024 Patient encounter procedure Donovan Kimmie DO Work Phone: [facility] Work Phone: Start: 10-28-2024 End: 10-28-2024 Periodic preventive med est patient 18-39 yrs Donovan Kimmie DO Work Phone: [facility] Comment on above: Well woman exam with routine gynecological exam Start: 10-28-2024 End: 10-28-2024 ambulatory DONOVAN KIMMIE Not Available Start: 10-09-2024 End: 10-10-2024 Clinisync Result Encounter [...] Start: 10-01-2024 End: 10-01-2024 ambulatory KIT CAICEDO Facility:[facility] Start: 09-20-2024 End: 09-20-2024 E-mail encounter from caregiver [facility] Start: 09-20-2024 End: 09-20-2024 Patient encounter procedure [facility] Comment on above: [facility] Welcome Letter Start: 09-04-2024 End: 09-05-2024 [...] Skin tag Start: 07-20-2024 End: 07-20-2024 ambulatory Donovan Kimmie [facility] Work Phone: Start: 07-20-2024 End: 07-20-2024 Departed Referred Donovan Kimmie DO Work Phone: [facility] Start: 06-28-2024 Non-patient / Non-visit Donovan Kimmie DO Work Phone: [facility] Work Phone: Start: 06-28-2024 End: 06-30-2024 Clinisync Result Encounter Donovan Kimmie DO Work Phone: [facility] Unsolicited Start: 06-28-2024 End: 06-30-2024 Clinisync Result Encounter Donoavn Kimmie DO Work Phone: [facility] Unsolicited Start: 06-07-2024 ambulatory [facility] Facility: [facility] Start: 05-26-2024 Non-patient / Non-visit Donovan Kimmie DO Work Phone: [facility] [...] Work Phone: [facility] Unsolicited Start: 09-24-2023 End: 09-24-2023 ambulatory [facility] Work Phone: Start: 09-24-2023 End: 09-24-2023 Patient encounter procedure [facility] Work Phone: Start: 09-11-2023 Non-patient / Non-visit [facility] Work Phone: Start: 08-21-2023 End: 08-21-2023 Office outpatient visit 25 minutes Cori Dennis DO Work Phone: [facility]rology [facility] 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); Anxiety disorder, unspecified type Start: 08-21-2023 ambulatory ARCADE HAYLIE Facility: [facility] Start: 08-08-2023 Non-patient / Non-visit [facility] Work Phone: Start: 07-09-2023 Non-patient / Non-visit [facility] Work Phone: Start: 07-07-2023 End: 07-07-2023 ambulatory [facility] Work Phone: Start: 07-07-2023 End: 07-07-2023 Patient encounter procedure [facility] Work Phone: Start: 06-27-2023 Non-patient / Non-visit [facility] Work Phone: Start: 06-08-2023 Non-patient / Non-visit [facility] Work Phone: Start: 05-28-2023 End: 05-28-2023 Office outpatient visit 25 minutes Petra Silveira MEETING/EVENT PLANNER-CONDUIT HELPER Work Phone: [facility] [place] 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); Anxiety disorder, unspecified type Start: 05-09-2023 Non-patient / Non-visit [facility] Work Phone: Start: 04-22-2023 End: 04-22-2023 ambulatory DONOVAN KIMMIE Not Available Start: 04-22-2023 End: 04-22-2023 Office outpatient visit 15 minutes Donovan Kimmie DO Work Phone: [facility] Comment on above: Encounter for fertil ity planning Start: 02-14-2023 End: 02-14-2023 Office outpatient visit 25 minutes Petra Silveira MEETING/EVENT PLANNER-CONDUIT HELPER Work Phone: [facility] [place] 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); 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 Start: 01-15-2023 End: 01-15-2023 Subsequent hospital visit by physician Andi Smith MD Work Phone: [facility] 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 Start: 01-09-2023 End: 01-09-2023 Office consultation new/estab patient 60 min Esau Ayad Gage PAC Work Phone: Pre-Procedure Evaluation and Assessment [facility] Comment on above: Preop exam for inter nal medicine (Primary Dx); Jeavons syndrome; 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 Start: 01-09-2023 End: 01-09-2023 Patient encounter status Esau Gage PAC Work Phone: [facility] Start: 01-09-2023 End: 01-09-2023 Subsequent hospital visit by physician Andi Smith MD Work Phone: Imaging [facility] Comment on above: Arrived Start: 12-10-2022 End: 12-10-2022 Office outpatient new 45 minutes Andi Smith MD Work Phone: [facility] 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) Start: 11-08-2022 End: 11-08-2022 Office outpatient visit 40 minutes Petra Silveira MEETING/EVENT PLANNER-CONDUIT HELPER Work Phone: [facility] Comment on above: [...] Office outpatient visit 25 minutes Petra Silveira MEETING/EVENT PLANNER-CONDUIT HELPER Work Phone: [facility] Comment on above: Generalized nonconvu lsive epilepsy (Primary Dx) Start: 06-24-2018 Encounter for gynecological examination (general) (routine) without abnormal findings NA NONE PER PATIENT [facility] Start: 06-24-2018 End: 06-24-2018 Patient encounter procedure GERARDO WARD Facility:[facility] Start: 05-25-2018 End: 05-25-2018 Patient encounter procedure . NONE PER PATIENT Facility:[facility] Start: 05-13-2018 End: 05-13-2018 Patient encounter procedure . NONE PER PATIENT Facility:[facility] Start: 03-23-2018 End: 03-24-2018 Patient encounter procedure [facility] Start: 03-20-2018 End: 03-21-2018 Patient encounter procedure [facility] Procedures Date Procedure Procedure Detail Performing Clinician Start: 10-28-2024 IGP,APTIMA HPV,AGE GDLN Donovan Kimmie DO Work Phone: Start: 10-09-2024 ALL PROGESTERONE Donovan Kimmie DO [...] By: #### C D #### Performed at [facility], [address] [place] [address] Start: 03-23-2018 PLATELET FUNCTION TEST JAMIL SMITH Plan of Treatment Date Care Activity Detail Author Start: 11-03-2025 End: 11-03-2025 Patient encounter procedure 11/03/2025 9:00 AM EDT Procedure Visit [facility] [address] [place] [address] Donovan Burks, DO [address] [place] [address] [facility] Start: 11-08-2024 Influenza vaccination Influenza Vaccine (#1) Jluis davies Start: 10-28-2024 End: 10-28-2024 Patient encounter procedure [facility] Comment on above: Arrived Start: 10-01-2024 End: 10-01-2024 Patient encounter procedure 10/01/2024 10:00 AM EDT Office Visit [facility] [address] [place] [address] Kit Caicedo MD [address] [place] [address] Donovan Burks's office referring the patient to [...] EDT Office Visit [facility] [address] [facility] [address] Donovan Burks, [address] [facility] [place] [address] [facility] Start: 07-20-2024 [facility] Start: 01-22-2024 End: 01-22-2024 Patient encounter procedure 01/22/2024 9:15 AM EST Office Visit [facility] [address] [facility] [address] [place] [address] Cori Dia, [address] [place] [address] [facility] Start: 11-28-2023 End: 11-28-2023 Patient encounter procedure 11/28/2023 10:20 AM EDT Office Visit [facility] [address] [place] [address] Petra Silveira, MEETING/EVENT PLANNER-CONDUIT HELPER [address] [place] [phone] [facility] Start: 11-09-2023 COVID-19 VACCINE ( season) COVID-19 VACCINE ( season) [facility] Start: 11-09-2023 Covid-19 Vaccine ( season) Covid-19 Vaccine () [facility] Start: 11-09-2023 Influenza vaccination [facility] Start: 08-21-2023 End: 08-21-2023 Patient encounter procedure 08/21/2023 2:45 PM EDT Office Visit [facility] [address] [facility] [address] [place] [phone] Cori Dia, DO [address] [place] [address] [facility] Start: 05-28-2023 End: 05-28-2023 Patient encounter procedure 05/28/2023 2:00 PM EDT Office Visit [facility] [address] [facility] [address] [place] [phone] Petra Silveira, MEETING/EVENT PLANNER-CONDUIT HELPER [address] [place] [phone] [facility] Start: 02-14-2023 End: 02-14-2023 Patient encounter procedure [facility] Start: 01-15-2023 End: 01-15-2023 Admission to same day surgery center 01/15/2023 9:40 AM EST - 01/15/2023 11:50 AM EST Surgery [facility] [address] [place] [address] Andi Smith MD [address] [place] [phone] INSERTION REPLACEMENT NEUROSTIMULATOR GENERATOR CRANIAL/INTRACRANIAL [facility] Comment on above: INSERTION REPLACEMENT NEUROSTIMULATOR GE NERATOR CRANIAL/INTRACRANIAL Start: 01-15-2023 End: 01-15-2023 Insj/rplcmt cranial neurostim pulse generator INSERTION REPLACEMENT NEUROSTIMULATOR GENERATOR CRANIAL/INTRACRANIAL Jeavons syndrome 01/15/2023 9:40 AM EST [facility] Start: 01-15-2023 Subsequent hospital visit by physician 01/15/2023 9:40 AM EST Hospital Encounter [facility] [address] [place] [address] Andi Smith MD [address] [place] [address] Jeavons syndrome [facility] 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 Start: 12-10-2022 End: 12-11-2023 Radiographic imaging procedure XR STIMULATOR/INTRATHECAL PUMP Imaging Routine Jeavons syndrome Expected: 12/10/2022, Expires: 12/11/2023 [facility] Comment on above: Expected: 12/10/2022, Expires: Start: 12-10-2022 End: 12-10-2022 Patient encounter procedure 12/10/2022 11:30 AM EDT [facility] [address] [place] [address] [place] [address] Andi Smith MD [address] [place] [phone] [facility] Start: 11-08-2022 COVID-19 VACCINE ( season) COVID-19 VACCINE ( season) [facility] Start: 11-08-2022 Influenza vaccination INFLUENZA VACCINE (#1) [facility] Start: 01-04-2022 End: 01-04-2022 Patient encounter procedure 01/04/2022 Office Visit Neurology Cori Dia, DO [address] [place] [address] Neurology [facility] Start: 11-08-2021 Influenza vaccination INFLUENZA VACCINE (Season Ended) [facility] Start: 10-10-2021 End: 10-10-2021 Telemedicine consultation with patient 10/10/2021 Telemedicine Neurology Petra Silveira, MEETING/EVENT PLANNER-CONDUIT HELPER [address] [place] [id number] Neurology [facility] Start: 08-15-2021 End: 08-15-2021 Telemedicine consultation with patient 08/15/2021 Telemedicine Neurology Petra Silveira, MEETING/EVENT PLANNER-CONDUIT HELPER [address] [place] [id number] Neurology [facility] Start: 2013 Screening for malignant neoplasm of cervix [facility] Start: 07-15-2011 Hepatitis B vaccination HEP B VACCINE (1 of 3 - 19+ 3-dose series) [facility] Start: 07-15-2011 Hepatitis B Vaccine (1 of 3 - 19+ 3-dose series) Hepatitis B Vaccine (1 of 3 - 19+ 3-dose series) [facility] Start: 07-15-2011 Third diphtheria, tetanus and acellular pertussis (DTaP) vaccination TDAP (ADULT) [facility] Start: 07-15-2011 Urine microalbumin profile DTaP,Tdap,Td Vaccine (1 - Tdap) [facility] Start: 2010 Anxiety Screening Anxiety Screening [facility] Start: 2010 Depression Screening Depression Screening [facility] Start: 2010 Hepatitis C screening Hepatitis C Screening [facility] Start: 2010 HIV screening HIV Screening [facility] Start: 2010 Tetanus vaccination TETANUS [facility] Start: 07-15-2007 HIV screening HIV SCREENING DISCUSSION [facility] Start: 1997 COVID-19 VACCINE (1) COVID-19 VACCINE (1) [facility] Start: 01-14-1993 COVID-19 VACCINE (#1) COVID-19 VACCINE (#1) [facility] Start: 1992 Hepatitis B vaccination HEP B VACCINE (1 of 3 - 3-dose series) [facility] Start: 1992 Hepatitis C antibody, confirmatory test HEPATITIS C VIRUS SCREENING [facility] Start: 1992 Hepatitis C screening HEPATITIS C VIRUS SCREENING [facility] Start: 1992 Tetanus vaccination TETANUS [facility] Cytology Cervical or vaginal smear or scraping study Pap Smear Pathology and Cytology Routine Well woman exam with routine gynecological exam Ordered: 10/28/2024 [facility] [employer] Work Phone: Comment on above: Ordered: 10/28/2024 Ecg routine ecg w/le ast 12 lds w/i&r AR ELECTROCARDIOGRAM, COMPLETE AR - OFFICE PERFORMED Routine 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 Ordered: 01/09/2023 [facility] Comment on above: Ordered: 01/09/2023 Elec horace implt npgt phys/qhp w/o programming AR ELEC HORACE IMPLT NPGT PHYS/QHP W/O PROGRAMMING AR Charge Routine Jeavons syndrome Ordered: 09/09/2023 [facility] Comment on above: Ordered: 09/09/2023 Elec horace implt smpl cn npgt prgrmg AR ELEC HORACE IMPLT SMPL CN NPGT PRGRMG AR Charge Routine Jeavons syndrome Ordered: 11/14/2022 [facility] Comment on above: Ordered: 11/14/2022 Elec horace implt smpl cn npgt prgrmg AR ELEC HORACE IMPLT SMPL CN NPGT PRGRMG AR Charge Routine 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 Ordered: 03/12/2023 [facility] Comment on above: Ordered: 03/12/2023 Elec horace implt smpl cn npgt prgrmg AR ELEC HORACE IMPLT SMPL CN NPGT PRGRMG AR Charge Routine Jeavons syndrome Ordered: 06/21/2023 [facility] Comment on above: Ordered: 06/21/2023 Human papilloma viru s DNA [Presence] in Unspecified specimen by Probe with amplification HPV DNA probe, amplified Microbiology Routine Well woman exam with routine gynecological exam Ordered: 10/28/2024 [facility] Comment on above: Ordered: 10/28/2024 Insj/rplcmt cranial neurostim pulse generator INSERTION REPLACEMENT NEUROSTIMULATOR GENERATOR CRANIAL/INTRACRANIAL Jeavons syndrome [facility] Noninvasive ear/puls e oximetry single deter AR NONINVASV OXYGEN SATUR; SINGLE AR - OFFICE PERFORMED Routine 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 Ordered: 01/09/2023 [facility] Comment on above: Ordered: 01/09/2023 Immunizations Immunization Date Immunization Notes Care Provider Lee shelton 01-04-2014 influenza, seasonal, injectable, preservative free Andi Smith MD Work Phone: [facility] 01-04-2014 influenza virus vaccine, unspecified formulation Petra Silveira APRN-CONDUIT HELPER Work Phone: [facility] Payers Date Payer Category Payer Unknown [id number] 2021 Medicaid [id number] 2021 Private Health Insurance [facility] MEDICAID [id number] 2016 Unknown [id number] 2016 Self-pay 2014 Unknown [id number] 1992 Unknown [id number] [id number]. 173 1992 Unknown [id number] 2.16.840.1.297054.3.579.2. 173 1992 Unknown [id number] 2.16.840.1.982279.3.579.2. 754 1992 Unknown [id number] 2.16.840.1.648067.3.579.2. 754 1992 Unknown [id number] 2.16.840.1.252380.3.579.2. 754 1992 Unknown [id number] 2.16.840.1.747015.3.579.2. 754 1992 Unknown [id number] 2.16840.1.489067.3.579.2. 593 1992 Unknown [id number] 2.16.840.1.747797.3.579.2. 593 1992 Unknown [id number] 2.16.840.1.448746.3.579.2. 593 1992 Unknown [id number] 2.16.840.1.744440.3.579.2. 593 1992 Unknown [id number] 2.16840.1.177738.3.579.2. 593 1992 Unknown [id number] 2.16.840.1.931457.3.579.2. 1259 1992 Unknown [id number] 2.16.840.1.081827.3.579.2. 594 1992 Unknown [id number] 2.16.840.1.244560.3.579.2. 594 1992 Unknown [id number] 2.16.840.1.677021.3.579.2. 1259 1992 Unknown [id number] 2.16.840.1.857494.3.579.2. 1259 1959 Unknown [id number] 1959 Unknown [id number] Unknown [id number] 2.16.840.1.754672.3.579.2. 531 Social History Date Type Detail Facility Start: 10-28-2019 End: 09-11-2022 Tobacco smoking status NHIS Never smoked tobacco [facility] Start: 10-28-2019 End: 09-11-2022 Tobacco use and exposure Smokeless tobacco non-user [facility] Start: 10-28-2019 Alcohol intake Current drinker of alcohol (finding) [facility] Start: 10-28-2019 History SDOH Alcohol Frequency 2 [facility] Start: 10-28-2019 History SDOH Alcohol Comment rare wine [facility] Start: 10-28-2019 Education 17 [facility] Start: 1992 Sex Assigned At Not on file [facility] Start: 11-08-2022 End: 09-09-2023 Alcohol intake Ex-drinker (finding) [facility] Start: 10-28-2019 End: 07-20-2024 History of Social function [facility] Start: 10-28-2019 End: 07-20-2024 Alcohol Use Disorder Identification Test - Consumption [AUDIT-C] [facility] How often to you hav e a drink containing alcohol? Monthly or less [facility] Average Number of Drinks Not on file [facility] Start: 10-29-2019 Gender identity Identifies as female gender (finding) [facility] Start: 10-29-2019 Sexual orientation Heterosexual (finding) [facility] Start: 02-14-2023 Tobacco Comment Never [facility] Start: 02-14-2023 Alcohol Comment At most one or two drinks a month. [facility] Start: 04-22-2023 End: 10-28-2024 Alcohol intake Not Asked [facility] Start: 08-07-2022 Alcohol Comment Occasional alcohol use [facility] Start: 1992 Sex Assigned At Female [facility] Start: 07-22-2024 Sex Female (finding) [facility] Tobacco smoking stat [facility] Tobacco smoking consumption unknown [facility] Medical Equipment Procedure Code Equipment Code Equipment Origin al Text Equipment Identifier Dates Sofia [id number] Start: 01-15-2023 Clinical Notes 07-04-2021 to 10-28-2024 Lesa Thornton LPN - 10/28/2024 9:00 AM Kit Dallas MD - 10/01/2024 11:27 AM Kit Dallas MD - 10/01/2024 11:27 AM Natacha Dubois LPN - 07/20/2024 11:10 AM EDT Note Date & Type Note Facility 10-28-2024 History of Present illness Narrative Reason for Appointment: Patient ID: Rowena Drake is a 34 y.o. female who presents for Well Women Visit Patient presents today for Annual Exam. MEDICATIONS Current Outpatient Medications Medication Instructions Calcium Carb-Cholecalciferol 600-12.5 MG-MCG capsule cloBAZam (Onfi) 20 MG tablet Take by mouth. Clomid 100 mg, Oral, Daily co-enzyme Q-10 30 mg, Daily folic acid (Folvite) 1 MG tablet Daily lamoTRIgine (LAMICTAL XR) 300 mg, Nightly loratadine (CLARITIN) 10 mg, Daily PRN loratadine-pseudoephedrine ER (Claritin-D 12-hour) 5-120 MG 12 hr tablet 1 tablet, 2 times daily LORazepam (Ativan) 0.5 MG tablet Take by mouth. metFORMIN XR (Glucophage-XR) 500 MG 24 hr tablet TAKE 1 TABLET BY MOUTH EVERY DAY WITH EVENING MEAL Multiple Vitamins-Minerals (CULTURELLE PROBIOTICS + MULTIV PO) Take by mouth MV-Min-Fe Fum-FA-DHA ( 1 PO) Take by mouth. sertraline (ZOLOFT) 150 mg, Nightly ALLERGIES Allergies Allergen Reactions Other Runny nose Other Reaction(s): Nasal Congestion Pollen Extract Runny nose Other Reaction(s): Congestion PROBLEMS Active Ambulatory Problems Diagnosis Date Noted PCOS (polycystic ovarian syndrome) 12/10/2022 Resolved Ambulatory Problems Diagnosis Date Noted No Resolved Ambulatory Problems Past Medical History: Diagnosis Date Anxiety Generalized seizure disorder (HCC) HISTORY PAST MEDICAL HISTORY SOCIAL HISTORY Past Medical History: Diagnosis Date Anxiety Generalized seizure disorder (HCC) PCOS (polycystic ovarian syndrome) Social History Tobacco [...] SYSTEMS Review of Systems: Review of Systems Constitutional: Negative. HENT: Negative. Eyes: Negative. Respiratory: Negative. Cardiovascular: Negative. Gastrointestinal: Negative. Genitourinary: Negative. Musculoskeletal: Negative. Skin: Negative. Neurological: Negative. All other systems reviewed and are negative. Hematological: Negative. Endocrine: Negative. Allergic/Immunologic: Negative. OBJECTIVE Objective: Physical Exam Constitutional: Appearance: Normal appearance. She is well-developed. Genitourinary: Vulva normal. Breasts: Breasts are soft. Right: Normal. Left: Normal. Cardiovascular: Rate and Rhythm: Normal rate and [...] nursing note reviewed. Exam conducted with a complaint manager present. Vitals: Estimated body mass index is 34.52 kg/m as calculated from the following: Height as of 08/08/22: 5' 3.5 . Weight as of 07/20/24: 198 lb. BP: No LMP recorded. ASSESSMENT & PLAN ICD-10-CM 1. Well woman exam with routine gynecological exam Z01.419 Pap Smear HPV DNA probe, amplified Annual Exam: Patient presents today for an annual exam. Patient states she is doing well and has no complaints. Pap was obtained without difficulty. Patient and spouse still working towards conceiving. Saw fertility specialist and recommend that spouse obtain semen analysis in condom and lab will be able to test sample. Nursing will look into where to obtain specimen condoms for testing. Patient voiced that spouse is now taking Telemarsin (within the past year) daily BP med, and Diabetic vitamin and a Beet Root Supplement (last 3 months). Orders Placed This Encounter Procedures HPV DNA probe, amplified Follow Up: Patient is to return in one year for annual unless needed otherwise. Documented by Lesa Thornton LPN on behalf of: Donovan Burks DO documented in this encounter [facility] 10-01-2024 Progress note Formatting of t his note is different from the original. [facility] Date: 10/01/2024 Rowena Drake is [...] of retrograde ejaculation considered. - Referred to [facility] urologists specializing in male infertility: Dr. Bull, Dr. Yu, or Dr. Arita. - Discussed use of special condom for semen collection available at [facility]. - Advised scheduling a follow-up appointment after urological evaluation to discuss further reproductive management options, including IUI or IVF if necessary. This visit was conducted as a virtual visit via zoom. I have communicated my name and active licensure. The patient's identity and physical location were verified at the time of this visit. Either the patient or their legal compliance representative dealer has been informed of the risks and benefits of -- and alternatives to -- treatment through a remote evaluation and consents to proceed with the evaluation remotely. I spent a total of 20 minutes on the date of the service which included preparing to see the patient, [id number] patient care, completing clinical documentation, counseling and educating the patient/family/caregiver, ordering medications, tests, or procedures, communicating results to the patient/family/caregiver, and care coordination (not separately reported). The patient consented to the use of ambient AI software for draft documentation of the visit consistent with [facility] s Notice of Privacy Practices. Wilda Yanez MD [facility] 10-01-2024 Consult note Formatting of th is note is different from the original. [facility] Date: 10/01/2024 Rowena Drake is [...] of retrograde ejaculation considered. - Referred to [facility] urologists specializing in male infertility: Dr. Bull, Dr. Yu, or Dr. Arita. - Discussed use of special condom for semen collection available at [facility]. - Advised scheduling a follow-up appointment after urological evaluation to discuss further reproductive management options, including IUI or IVF if necessary. This visit was conducted as a virtual visit via zoom. I have communicated my name and active licensure. The patient's identity and physical location were verified at the time of this visit. Either the patient or their legal compliance representative dealer has been informed of the risks and benefits of -- and alternatives to -- treatment through a remote evaluation and consents to proceed with the evaluation remotely. I spent a total of 20 minutes on the date of the service which included preparing to see the patient, [id number] patient care, completing clinical documentation, counseling and educating the patient/family/caregiver, ordering medications, tests, or procedures, communicating results to the patient/family/caregiver, and care coordination (not separately reported). The patient consented to the use of [employer] software for draft documentation of the visit consistent with [facility] s Notice of Privacy Practices. Wilda Yanez MD documented in this encounter [facility] 10-01-2024 Plan of care note Rowena Drake [...] of retrograde ejaculation considered. - Referred to [facility] urologists specializing in male infertility: Dr. Bull, Dr. Yu, or Dr. Duron. - Discussed use of special condom for semen collection available at [facility]. - Advised scheduling a follow-up appointment after urological evaluation to discuss further reproductive management options, including IUI or IVF if necessary. This visit was conducted as a virtual visit via zoom. I have communicated my name and active licensure. The patient's identity and physical location were verified at the time of this visit. Either the patient or their legal compliance representative dealer has been informed of the risks and benefits of -- and alternatives to -- treatment through a remote evaluation and consents to proceed with the evaluation remotely. I spent a total of 20 minutes on the date of the service which included preparing to see the patient, tnur-wt-yngp patient care, completing clinical documentation, counseling and educating the patient/family/caregiver, ordering medications, tests, or procedures, communicating results to the patient/family/caregiver, and care coordination (not separately reported). The patient consented to the use of [employer] software for draft documentation of the visit consistent with [facility] s Notice of Privacy Practices. [facility] 10-01-2024 Miscellaneous Notes Rowena Drake is a [...] of retrograde ejaculation considered. - Referred to [facility] urologists specializing in male infertility: Dr. Bull, Dr. Yu, or Dr. Duron. - Discussed use of special condom for semen collection available at [facility]. - Advised scheduling a follow-up appointment after urological evaluation to discuss further reproductive management options, including IUI or IVF if necessary. This visit was conducted as a virtual visit via zoom. I have communicated my name and active licensure. The patient's identity and physical location were verified at the time of this visit. Either the patient or their legal compliance representative dealer has been informed of the risks and benefits of -- and alternatives to -- treatment through a remote evaluation and consents to proceed with the evaluation remotely. I spent a total of 20 minutes on the date of the service which included preparing to see the patient, wvfh-rf-nghu patient care, completing clinical documentation, counseling and educating the patient/family/caregiver, ordering medications, tests, or procedures, communicating results to the patient/family/caregiver, and care coordination (not separately reported). The patient consented to the use of ambient [employer] software for draft documentation of the visit consistent with [facility] s Notice of Privacy Practices. documented in this encounter [facility] 10-01-2024 Telephone encounter Note Left message for pt to return call to update fertility screening, partner information, etc. Angella Díaz MA October 01, 2024 11:14 AM [facility] 10-01-2024 Miscellaneous Notes Left message for pt to return call to update fertility screening, partner information, etc. Angella Díaz MA October 01, 2024 11:14 AM documented in this encounter [facility] 07-20-2024 History of Present illness Narrative Reason [...] nursing note reviewed. Exam conducted with a complaint manager present. Vitals: Estimated body mass index [...] after allowing sufficient time to take affect. car pick up driver and scissors used to remove affected area. Placed in formalin and sent to pathology. Post-procedure instructions given. Follow Up: As needed Documented by Rhonda Dubois LPN on behalf of: Donovan Burks DO documented in this encounter [facility] 11-19-2023 Telephone encounter Note Images from the original note were not included. Medication Access Team coordinated the following [facility] Clinics: MS/Neurology Prior Authorization Per the patient's insurance provider, [facility], the prior authorization for LAMOTRIGINE 300 (on-label) was approved. Authorization number: [id number] Authorization start date: 11/14/23 Authorization end date: 11/12/24 Non-Specialty Prescriptions: 1, 20-25 min Namrata Tony [facility] 11-19-2023 Miscellaneous Notes Images from the original note were not included. Medication Access Team coordinated the following [facility]: MS/Neurology Prior Authorization Per the patient's insurance provider, [facility], the prior authorization for LAMOTRIGINE 300 (on-label) was approved. Authorization number: [id number] Authorization start date: 11/14/23 Authorization end date: 11/12/24 Non-Specialty Prescriptions: 1, 20-25 min Namrata Tony documented in this encounter [facility] 11-14-2023 Telephone encounter Note Images from the original note were not included. *Documentation only- I did not speak with the patient. Received fax from [facility] stating PA is needed for Lamotrigine ER 300 mg tablets. Current auth expires 11/25/2023. [facility] 11-14-2023 Miscellaneous Notes Images from the original note were not included. *Documentation only- I did not speak with the patient. Received fax from [employer] stating PA is needed for Lamotrigine ER 300 mg tablets. Current auth expires 11/25/2023. documented in this encounter [facility] 08-21-2023 History of Present illness Narrative [...] 24 hours. 2 Each 0 Prenat MV-Min w/Hz-Fhcaig-WBN ( COMPLETE PO) Take 1 tablet by [...] AW Model ID Sentiva N1000 Serial # [id number] Implanted 03/27/2018 Communication Output Current Status Current [...] of questions or concerns. Cori Dennis DO It Technical Architect Department of Neurology, Epilepsy Division [facility] documented in this encounter [facility] 08-21-2023 Instructions Cori Meek DO - [...] you can call the Neurology clinic at [phone]. If you have access through [employer] you can contact me through that system as well. documented in this encounter [facility] 05-28-2023 History of Present illness Narrative Images from the original note were not included. Rowena Drake was seen in the [facility] on 05/28/2023. She is here today for a follow-up in clinic accompanied by her , Perdo. She was last seen on 04/19/2022 with [...] 24 hours. 2 Each 0 Prenat MV-Min w/Ez-Myeqwk-CST ( COMPLETE PO) Take 1 tablet by [...] your epilepsy that we offer at the [facility]? Yes If you have tried 2 or 3 anti-seizure medications and your seizures are still not controlled, are you interested in learning about surgical options for your epilepsy that we can offer at the [facility]? No Neurological Disorders Depression Inventory for [...] 01/15/2023 Model Number 1000 1000 Serial Number [id number] Output Current (mA) 2.5 mA 2.25 mA [...] and continue maintenance dose of clobazam - AR ELEC HORACE IMPLT SMPL CN NPGT [...] 45 tablet; Refill: 2 Encouraged use of [employer] to send messages to provider as needed for questions and concerns or can call our clinic @ [phone]. She will return in [address] Dennis or sooner if clinically indicated. Signed, Petra ESCALANTE, MEETING/EVENT PLANNER-CONDUIT HELPER [facility] Department of Neurology - Epilepsy Division [address] [place] [address] - 7th floor [place] [address] Pager: [phone] I spent a total of 35 minutes on the date of the service which included preparing to see the patient, ltkm-pu-gwqh patient care, completing clinical documentation, performing a medically appropriate examination and counseling and educating the patient/family/caregiver. Note to patient: The Cures Act makes medical notes like these available to patients in the interest of transparency. However, be advised this is a medical document. It is intended as cgay-gk-zndb communication. It is written in medical language and may contain abbreviations or verbiage that are unfamiliar. It may appear blunt or direct. Medical documents are intended to carry relevant information, facts as evident, and the clinical opinion of the practitioner. documented in this encounter [facility] 04-22-2023 History of Present illness Narrative [...] Medical History: Diagnosis Date Generalized seizure disorder ([facility]) Family History Problem Relation Name [...] nursing note reviewed. Exam conducted with a complaint manager present. Vitals: Estimated body mass index [...] Donovan Burks DO documented in this encounter [facility] 02-14-2023 History of Present illness Narrative Images from the original note were not included. Rowena Byers was seen in the [facility] on 02/14/2023. She is here today for [...] 24 hours. 2 Each 0 Prenat MV-Min w/Ai-Ctsjvg-SXK ( COMPLETE PO) Take 1 tablet by [...] ID ABW Model ID SenTiva Serial # [id number] Implanted 01/15/2023 Communication OK Output Current Status [...] VNS Simple Reprogramming (1-3 changes) CPT code 14215 Assessment and Plan Assessment: Rowena is a [...] longer than 5 minutes. Encouraged use of [employer] to send messages to provider as needed for questions and concerns or can call our clinic @ [phone]. She will return in 3 months with me and [address] Dennis or sooner if clinically indicated. Signed, Petra Silveira MSN, MEETING/EVENT PLANNER-CONDUIT HELPER [facility] Department of Neurology - Epilepsy Division [address] [place] [address] - 7th floor [place] [address] Pager: [phone] I spent a total of 34 minutes on the date of the service which included preparing to see the patient, chqz-zb-khib patient care, completing clinical documentation, performing a medically appropriate examination and counseling and educating the patient/family/caregiver. Note to patient: The Century Cures Act makes medical notes like these available to patients in the interest of transparency. However, be advised this is a medical document. It is intended as azav-li-fddw communication. It is written in medical language and may contain abbreviations or verbiage that are unfamiliar. It may appear blunt or direct. Medical documents are intended to carry relevant information, facts as evident, and the clinical opinion of the practitioner. documented in this encounter [facility] 02-14-2023 Instructions JETHRO Juan - 02/14/2023 [...] after regular office hours, a neurologist is marketing professional for urgent issues. Call the neurology office number ([phone]) to reach the neurologist marketing professional if you are continuing to experience many more seizures than usual despite use of your rescue medications. Please try to remember that the neurologist marketing professional may not have access to your complete medical record and may not be as familiar with your history. If you have access through [employer] you can contact us through that system as well. If you have documents that need completed or sent to our clinic, please have them faxed to [phone]. It is always best to call during [...] the refill is ready for you to car pick up driver. Seizure First Aid Training Can Be Found Here (it's free!): [email or web address] documented in this encounter [facility] 01-15-2023 Miscellaneous Notes [facility] OPERATIVE REPORT PATIENT NAME: Rowena Byers [...] The IPG had been interrogated by the compliance representative dealer from the vendor. The upper chest over [...] the new IPG and secured with the material control associate's screwdriver. At this point, a vba programmer was used to interrogate the new [...] VSS, anesthesia sign out completed. 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 SURGEON Surgeon(s) and Role: * Andi Smith MD - Primary ANESTHESIOLOGIST Anesthesiologist: Cydney Zavala MD COMMUNITY HEALTH ADVOCATE: Geraldo Marion APRN-COMMUNITY HEALTH ADVOCATE Student Nurse Production Service Manager: Chiquita Polanco SURGICAL STAFF Cash Applications Representative: Miki Gary RN; Lidna Gilmore RN Relief Cash Applications Representative: Janet Carreon RN Scrub Person: Marielle Ibrahim Resident Assisting: Colt Meadows MD COMPLICATIONS None ESTIMATED BLOOD LOSS Minimal SPECIMENS No specimen sent * No specimens in log * Colt Meadows MD January 15, 2023 11:03 AM documented in this encounter [facility] 01-15-2023 Nurse Note Pt and family were given AVS and verbalize understanding of instructions. Pt discharged via wheelchair. [facility] 01-15-2023 Surgery Postoperative evaluation and management note [facility] OPERATIVE REPORT PATIENT NAME: Rowena B Wentling PROCEDURE DATE: 01/15/2023 PREOPERATIVE DIAGNOSIS: Drug-resistant epilepsy, [...] The IPG had been interrogated by the compliance representative dealer from the vendor. The upper chest over [...] the new IPG and secured with the material control associate's screwdriver. At this point, a vba programmer was used to interrogate the new [...] and performed the critical portions. [facility] 01-15-2023 Nurse Note Report called to RN SPR, VSS, anesthesia sign out completed. 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 SURGEON Surgeon(s) and Role: * Andi Smith MD - Primary ANESTHESIOLOGIST Anesthesiologist: Cydney Zavala MD COMMUNITY HEALTH ADVOCATE: Geraldo Marion APRN-COMMUNITY HEALTH ADVOCATE Student Nurse Production Service Manager: Chiquita Polanco SURGICAL STAFF Cash Applications Representative: Miki Gary RN; Linda Gilmore RN Relief Cash Applications Representative: Janet Carreon RN Scrub Person: Marielle Ibrahim Resident Assisting: Colt Meadows MD COMPLICATIONS None ESTIMATED BLOOD LOSS Minimal SPECIMENS No specimen sent * No specimens in log * Colt Meadows MD January 15, 2023 11:03 AM [facility] 01-15-2023 Nurse Surgical operation note Report given to TREE KILLER. Patient transported to PACU with anesthesia on a cart and oxygen. [facility] 01-15-2023 Nurse Note Report given to TREE KILLER. Patient transported to PACU with anesthesia on a cart and oxygen. documented in this encounter [facility] 01-15-2023 Hospital Discharge instructions Colt Meadows MD - 01/15/2023 9:30 AM EST Discharge Instructions for DBS Surgery & Battery Placement Surgery Here are some general guidelines to assist you in your recovery at home. Please do not hesitate to call us with any questions or concerns you may have. We can be reached at [phone]. Your appointmentS will be in the Neuromodulation clinic in [address] Incision Care: If you have a [...] 101 degrees F documented in this encounter [facility] 01-15-2023 History and physical note PERIOPERATIVE [...] by Andi Smith MD, 01/15/2023, 9:08 AM. [facility] Work Phone: 01-15-2023 History and physical [...] 01/15/2023, 9:08 AM. documented in this encounter [facility] 01-09-2023 History and physical note Images [...] 10 mg in 24 hours. Prenat MV-Min w/Et-Vaybqu-TVS ( COMPLETE PO) Take 1 tablet by [...] patient has been medically OPTIMIZED FOR SURGERY. 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 History of Present Illness Ms. Byers is a 32 y.o. female is being evaluated in [facility] due to her medical condition [...] management. Pt reports that last seizure was 11/02/23. MEDICATIONS Current Outpatient Medications Medication Sig cloBAZam [...] 10 mg in 24 hours. Prenat MV-Min w/Qr-Aocfsb-MII ( COMPLETE PO) Take 1 tablet by [...] patient has been medically OPTIMIZED FOR SURGERY. [facility] Perioperative Clinic [facility] [address] [facility] Review of Systems (OSUROS)Review [...] PCP - General (Internal Medicine) Petra Silveira APRN-CONDUIT HELPER (Certified Nurse Practitioner) Family History Problem Relation Age of Onset Prostate Cancer Maternal Grandfather Mental Illness Maternal Grandmother Depression , Anxiety Prostate Cancer Paternal Grandfather Cancer- Other Paternal Grandfather Diabetes Paternal Uncle Social History Socioeconomic History Marital status: Highest education level: Bachelor's degree (e.g., BA, AB, BS) 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 Will check hCG today and on day of surgery. Patient understands that surgery may be cancelled if she is . Anesthesia Assessment:No contraindications to planned surgery. Pending review of the patient's labs.ECG reviewed. Whitney Ward MD [facility] Preoperative Assessment Center documented in this encounter [facility] 01-09-2023 Instructions Robyn Dempsey LPN - [...] take Herbal Medication (including multi-vitamin, fish oil (Dayton-3), garlic, Glucosamine - Chondroitin ,gingko, ginseng, Vitamin [...] site one week prior to surgery. - [place] your teeth and rinse your mouth the morning of surgery. - Do NOT bring your dentures or partials with you into surgery. They may be lost. Give them to someone to bring to you after surgery. If you are unable to complete your scheduled testing or appointments made by [facility] please contact [facility] at [phone]. Failure to do so could delay or [...] surgery, please notify our team immediately at [phone]. - If you have Sleep apnea and have a CPAP or BIPAP, then bring your CPAP mask and machine with you to the hospital. Please contact Medical Information Management Department for all records requests. [phone] Puma/mateo documented in this encounter [facility] 12-10-2022 History of Present illness Narrative Neurosurgery Clinic Note Date: 12/10/2022 Patient: Rowena yBers Date of : 1990 Visit Date: 12/10/22 [...] that were dedicated to clinical evaluation, including picw-uq-qruz time; counseling and education; chart completion; reviewing [...] aspirin, excedrin, plavix), multivitamins/minerals/herbal supplements (such as [place]-3, garlic, Glucosamine - Chondroitin, gingko, ginseng, Vitamin E, fish oil, etc), non-steroidal anti-inflammatory medications (NSAIDs) (such as Ibuprofen/Motrin/Advil, Aleve, Celebrex) for 10 days prior to surgery, as these are blood thinners. She was advised that Tylenol is the preferred option for pain. She stated understanding. documented in this encounter [facility] 11-08-2022 History of Present illness Narrative Images from the original note were not included. Rowena Byers was seen in the [facility] on 11/08/2022. She is here today for [...] ID AW Model ID SenTiva Serial # [id number] Implanted 03/27/2018 Communication OK Output Current Status [...] VNS Simple Reprogramming (1-3 changes) CPT code 80971 Assessment and Plan Assessment: Rowena is a [...] would like to wait Encouraged use of [employer] to send messages to provider as needed for questions and concerns or can call our clinic @ [phone]. She will return in 2 months or sooner if clinically indicated. Signed, Petra Silveira MSN, MEETING/EVENT PLANNER-CONDUIT HELPER [facility] Department of Neurology - Epilepsy Division [address] [place] [address] - 7th floor [place] [address] Pager: [phone] I spent a total of 46 minutes on the date of the service which included preparing to see the patient, dqkl-ep-oyse patient care, completing clinical documentation, performing a medically appropriate examination and counseling and educating the patient/family/caregiver. Note to patient: The Century Cures Act makes medical notes like these available to patients in the interest of transparency. However, be advised this is a medical document. It is intended as ibmt-yv-uuyo communication. It is written in medical language and may contain abbreviations or verbiage that are unfamiliar. It may appear blunt or direct. Medical documents are intended to carry relevant information, facts as evident, and the clinical opinion of the practitioner. documented in this encounter [facility] 11-08-2022 Instructions JETHRO Juan - 11/08/2022 [...] ID AW Model ID SenTiva Serial # [id number] Implanted 03/27/2018 Communication OK Output Current Status OK Current Delivered 1.75 Lead Impedance OK Impedance Value 2903 IFI NO Average # of Inhibited Auto stimulations Daily Avg. Stim % Per Day %Therapy Normal 843.56 AutoStim 26.89 Magnet 0.04 Total 870.50 documented in this encounter [facility] 07-04-2021 Instructions JETHRO Juan - 07/04/2021 [...] weeks with Petra documented in this encounter [facility] 07-04-2021 History of Present illness Narrative Images from the original note were not included. Rowena Byers was seen in the [facility] on 07/04/2021. 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 Encouraged use of [employer] to send messages to provider as needed for questions and concerns or can call our clinic @ [phone]. She will return in 6 weeks and 3 months with me and [address] Dennis or sooner if clinically indicated. Signed, Petra Silveira MSN, MEETING/EVENT PLANNER-CONDUIT HELPER [facility] Department of Neurology - Epilepsy Division [address] - 7th floor [place], [place] [address] Pager: [phone] Time to complete visit: I spent approximately 38 minutes reviewing the chart prior to the appointment, in face to face counseling with the patient, and with documentation after the visit. 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 [facility] Diagnosis Jeavons syndrome- Primary [facility] Diagnosis Jeavons syndrome- Primary [facility] Diagnosis Jeavons syndrome Jeavons syndrome [facility] Diagnosis Preop exam for internal medicine- Primary Other specified pre-operative examination 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 Other postprocedural status Jeavons syndrome [facility] 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 Other postprocedural status [facility] Diagnosis Encounter for fertility planning documented in this encounter [facility]* Diagnosis Jeavons syndrome- Primary Anxiety disorder, unspecified type [facility] Diagnosis Onset Date Resolution Status Maxillary sinusitis [facility] Work Phone: Evaluation note* Diagnosis Jeavons syndrome- Primary Anxiety disorder, unspecified type [facility] Diagnosis Onset Date Resolution Status Maxillary sinusitis acute Maxillary sinusitis [facility] Work Phone: Evaluation note* Diagnosis PCOS (polycystic ovarian syndrome) Polycystic ovaries Skin tag Unspecified hypertrophic and atrophic condition of skin documented in this encounter [facility] HealthcareEvaluation noteNo assessment [facility]: [facility]* Diagnosis General counseling and advice for procreative management- Primary Other procreative management counseling and advice Polycystic ovarian syndrome Polycystic ovaries [facility] Diagnosis PCOS (polycystic ovarian syndrome) Polycystic ovaries Well woman exam with routine gynecological exam Routine gynecological examination [facility] (narrative)* Consultation (Routine) - New Request Specialty Diagnoses / Procedures Referred By Rainer ramos Referred To Contact Neurologic Surgery Diagnoses Jeavons syndrome Andi Smith MD [address] [place] [address] Referral ID Status Reason Start Date Expiration Date V isits Requested Visits Authorized [id number] New Request 12/10/2022 01/04/2024 1 1 [facility] Summary Purpose Family History Relationship Condition Age at Onset Recorded Date/T jorge grandparent Malignant neoplasm Unknown Advance Directives Advance Directive Response Recorded Date/ Time Advance Directives No July 06 12:12pm Reason for Referral Specialty Diagnoses / Procedures Referred By Rainer ramos Referred To Contact Diagnoses Generalized nonconvulsive epilepsy Petra Silveira, MEETING/EVENT PLANNER-CONDUIT HELPER [address] [place] [address] Referral ID Status Reason Start Date Expiration Date V isits Requested Visits Authorized [id number] Pending Review 1 1 Specialty Diagnoses / Procedures Referred By Rainer ramos Referred To Contact Procedures DVT/VTE RISK ASSESSMENT Andi Smith MD [address] [place] [address] Referral ID Status Reason Start Date Expiration Date V isits Requested Visits Authorized [id number] New Request 01/15/2023 02/09/2024 1 1 Chief Complaint and Reason for Visit Chief Complaint sinus infection Reason for Visit Maxillary sinusitis Chief Complaint sinus infection sinus infection Reason for Visit Maxillary sinusitis Maxillary sinusitis Chief Complaint Admit Date Unknown July 20, 2024 9:00a m Additional Source Comments INFORMATION SOURCE (unrecogn ized section and content) DATE CREATED AUTHOR 09/03/2017 [facility] DATE CREATED AUTHOR AUTHOR'S ORGANIZ ATION 03/28/2018 [facility] DATE CREATED AUTHOR AUTHOR'S ORGANIZ ATION 07/02/2018 [facility] DATE CREATED AUTHOR AUTHOR'S ORGANIZ ATION 10/02/2019 [facility] DATE CREATED AUTHOR AUTHOR'S ORGANIZ ATION 06/01/2022 [facility] DATE CREATED AUTHOR AUTHOR'S ORGANIZ ATION 04/24/2023 [facility] DATE CREATED AUTHOR AUTHOR'S ORGANIZ ATION 06/07/2024 [facility] DATE CREATED AUTHOR AUTHOR'S ORGANIZ ATION 07/28/2024 [facility] DATE CREATED AUTHOR AUTHOR'S ORGANIZ ATION 10/02/2024 [facility] DATE CREATED AUTHOR AUTHOR'S ORGANIZ ATION 10/30/2024 [facility] Reason for Visit (unrecogniz ed section and content) Reason Comments Follow-up Reason Comments Follow-up Reason Comments New Patient 32 y.o female here f or consult. Specialty Diagnoses / Procedures Referred By Contac t Referred To Contact Neurologic Surgery Diagnoses Jeavons syndrome S/P placement of VNS (vagus nerve stimulation) device Petra Silveira, MEETING/EVENT PLANNER-CONDUIT HELPER [address] [place] [address] Referral ID Status Reason Start Date Expiration Date V isits Requested Visits Authorized [id number] New Request 09/19/2022 10/14/2023 1 1 Reason Comments Preoperative Assessment Specialty Diagnoses / Procedures Referred By Contac t Referred To Contact Neurologic Surgery Diagnoses Jeavons syndrome Andi Smith MD [address] [place] [address] Referral ID Status Reason Start Date Expiration Date V isits Requested Visits Authorized [id number] New Request 12/10/2022 01/04/2024 1 1 Specialty Diagnoses / Procedures Referred By Contac t 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] Procedures AR IMP STIM,CRANIAL,SUBQ,1 ARRAY INSERTION REPLACEMENT NEUROSTIMULATOR GENERATOR CRANIAL/INTRACRANIAL Andi Smith MD [address] [place] [address] [facility] [address] [place] [address] Referral ID Status Reason Start Date Expiration Date Visits Re quested Visits Authorized [id number] 1 1 Reason Comments Infertility Reason Onset Date Comments Insurance 11/14/2023 Lamotrigine ER Reason Onset Date Comments Insurance 11/19/2023 Reason Comments Skin Tag Pt present today for a skin tag on right areola. Reason Comments LMTCB Reason Comments Infertility Reason Comments Well Women Visit Care Teams (unrecognized sec tion and content) Status Controller Relationship Specialty Start Date End Date Tim Stallings DO [address] [place] [address] PCP - General Internal Medicine 09/19/22 Petra Silveira, MEETING/EVENT PLANNER-CONDUIT HELPER [address] [place] [phone] Certified Nurse Practitioner 11/08/22 Status Controller Relationship Specialty Start Date End Date Tim Stallings DO [address] [place] [address] PCP - General Internal Medicine 09/19/22 Petra Silveira, MEETING/EVENT PLANNER-CONDUIT HELPER [address] [place] [phone] Certified Nurse Practitioner 11/08/22 Status Controller Relationship Specialty Start Date End Date Tim Stallings DO [address] [place] [address] PCP - General Internal Medicine 09/19/22 Petra Silveira, MEETING/EVENT PLANNER-CONDUIT HELPER [address] [place] [phone] Certified Nurse Practitioner 11/08/22 Status Controller Relationship Specialty Start Date End Date Tim Stallings DO [address] [place] [address] PCP - General Internal Medicine 09/19/22 Petra Silveira, MEETING/EVENT PLANNER-CONDUIT HELPER [address] [place] [phone] Certified Nurse Practitioner 11/08/22 Status Controller Relationship Specialty Start Date End Date Tim Stallings DO [address] [place] [address] PCP - General Internal Medicine 09/19/22 Petra Silveira, MEETING/EVENT PLANNER-CONDUIT HELPER [address] [place] [phone] Certified Nurse Practitioner 11/08/22 Status Controller Relationship Specialty Start Date End Date Tim Stallings DO [address] [place] [address] PCP - General Internal Medicine 09/19/22 Petra Silveira, MEETING/EVENT PLANNER-CONDUIT HELPER [address] [place] [phone] Certified Nurse Practitioner 11/08/22 Status Controller Relationship Specialty Start Date End Date Tim Stallings MD [address] [place] [address] PCP - General Internal Medicine 08/08/22 Status Controller Relationship Specialty Start Date End Date Haylie TimDO [address] [place] [address] PCP - General Internal Medicine 09/19/22 Petra Silveira, MEETING/EVENT PLANNER-CONDUIT HELPER [address] [place] [address] Certified Nurse Practitioner 11/08/22 Team Status: [...] End: July 07, 2023 Kristine Oneill APRN COMMISSION AUDITOR-C Attending Provider Act duncan Start: July 07, 2023 End: July 07, 2023 Status Controller Relationship Specialty Start Date End Date Tmi Stallings DO [address] [place] [id number] PCP - General Internal Medicine 09/19/22 Petra Silveira, MEETING/EVENT PLANNER-CONDUIT HELPER [address] [place] [address] Certified Nurse Practitioner 11/08/22 Team Status: [...] End: September 24, 2023 Kristine Oneill APRN COMMISSION AUDITOR-C Attending Provider Act duncan Start: September 24, 2023 End: September 24, 2023 Status Controller Relationship Specialty Start Date End Date Tim Stallings DO [address] [place] [phone] PCP - General Internal Medicine 09/19/22 Petra Silveira, MEETING/EVENT PLANNER-CONDUIT HELPER [address] [facility] [address] [place] [address] Certified Nurse Practitioner 11/08/22 Status Controller Relationship Specialty Start Date End Date Tim Stallings MD [address] [place] [address] PCP - General Internal Medicine 08/08/22 Status Controller Relationship Specialty Start Date End Date Tim Stallings MD [address] [place] [id number] PCP - General Internal Medicine 08/08/22 Status Controller Relationship Specialty Start Date End Date Tim Stallings MD [address] [place] [id number] PCP - General Internal Medicine 08/08/22 Status Controller Relationship Specialty Start Date End Date Tim Stallings DO [address] [place] [address] PCP - General Internal Medicine 08/08/22 Status Controller Relationship Specialty Start Date End Date Tim Stallings DO [address] [facility] [place] [address] PCP - General Internal Medicine 08/08/22 Team Status: Active Member Role Status Dates Tim Stallings DO Primary Care Provide r, Attending Provider Active Start: May 26, 2024 Team Status: Active Member Role Status Dates Tim Stallings DO Primary Care Provide r, Attending Provider Active Start: June 28, 2024 Team Status: Inactive Member Role Status Dates Doonvan Burks DO Attending Provider Active Start : July 20, 2024 End: July 20, 2024 Status Controller Relationship Specialty Start Date End Date Tim Stallings DO [address] [place] [address] PCP - General Internal Medicine 07/26/24 Donovan Burks, DO [address] [place] [address] Referring [employer] Physical Education Teacher 07/26/24 Status Controller Relationship Specialty Start Date End Date Tim Stallings DO [address] [place] [address] PCP - General Internal Medicine 07/26/24 Donovan Burks, DO [address] [place] [address] Referring High School Physical Education Teacher 07/26/24 Status Controller Relationship Specialty Start Date End Date Tim Stallings DO [address] [place] [address] PCP - General Internal Medicine 07/26/24 Donovan Burks, DO [address] [place] [address] Referring High School Physical Education Teacher 07/26/24 Status Controller Relationship Specialty Start Date End Date Tim Stallings DO [address] [place] [address] PCP - General Internal Medicine 08/08/22 Status Controller Relationship Specialty Start Date End Date Tim Stallings DO [address] [place] [address] PCP - General Internal Medicine 08/08/22 Scheduled [...] - Comment: mixed 1:1 w/Lido with epi 1:130600) ceFAZolin (ANCEF) 2 g in dextrose 100 mL premix IVPB (COMPLETED) 2 g, Intravenous, Administer over 30 Minutes, ACUTE CARE NURSE TO PROCEDURE, 1 dose, Starting on Fri01/15/23 at 0758, Until Discontinued, Other, Surgical Prophylaxis, Initiate antibiotic administration 30-60 minutes prior to surgical incision and complete administration prior to surgical incision., Pre-op/Pre-Proc 0955 (Given - Provid er: Geraldo Marion, MEETING/EVENT PLANNER-COMMUNITY HEALTH ADVOCATE) lidocaine-epinephrine 2 %-1:511950 injection (CANCELED) NEEDED, Starting on Fri01/15/23 at [...] Order-specific weight), Intravenous, Administer over 1 Hours, ACUTE CARE NURSE TO PROCEDURE, 1 dose, Starting on Fri01/15/23 [...] or prosecute any alcohol or drug abuse patient.[facility] the event this information is protected by the Federal Confidentiality of Alcohol and Drug Abuse Patient Records regulations: The Federal rules restrict any use of the information to criminally investigate or prosecute any alcohol or drug abuse patient.[facility] System[facility] the event this information is protected by the Federal Confidentiality of Alcohol and Drug Abuse Patient Records regulations: The Federal rules restrict any use of the information to criminally investigate or prosecute any alcohol or drug abuse patient.[facility] FOR RECORDS PERTAINING TO PATIENTS WHO ARE [...] BE BASED ON THE PRIMARY CLINICAL RECORDS. [facility] [place] [facility]. provides no warranty or guarantee of the accuracy or completeness of information in this document.
== END 2024-11-11 11:45 | disposition home or self-care (01) ==
LOC: LAB 11:44
PROVIDERS: PCP Internal Medicine; Visit Provider Obstetrics & Gynecology
DX: N97.9 Female infertility, unspecified (principal); N97.0 Female infertility associated with anovulation
CPT/HCPCS: 36415; 84144

== ENCOUNTER 2024-12-15 10:24 | Outpatient (OUT) | payer OTHER, SELFPAY ==
--- OUTSIDE RECORDS SUMMARY | 2024-12-15 10:29 | XMS_ITS | CCD ---
Author Organization [facility] CliniSyme Care Team Providers Care Fraud Prevention Analyst Name Role Phone JAMIL SMITH Referring Unavailable [...] Tim Stallings DO Primary Care Provider Raoul LANDSCAPE SPECIALIST-AUDIOLOGY DOCTOR, Crystal G Unavailable Tim Stallings MD Primary Care Provider DONOVAN BURKS Attending Unavailable Roaul LANDSCAPE SPECIALIST-AUDIOLOGY DOCTOR, Crystal G Unavailable CORI DENNIS Attending Unavailable TIM STALLINGS Primary Care Unavailable SELF, SELF Referring Unavailable TIM STALLINGS Referring Unavailable TIM STALLINGS Primary Care Unavailable CORI DENNIS Attending Unavailable Tim Stallings MD Primary Care Provider Tim Stallings DO Primary Care Provider Donovan Burks DO Attending Provider Donovan Burks [...] reactions to drug 7 Runny Nose, Congestion [facility] Work Phone: (20 sources) Pollen Propensity to adverse reactions 7 Runny nose [facility] (20 sources) Other Propensity to adverse reactions 2 [...] sulfate 120 mg extended release oral tablet (20 sources) alpha-Adrenergic Agonist take 1 tablet by [...] Indications: Difficulty falling asleep at night until angiographer hours TAKE 1 TABLET BY MOUTH EVERYDAY [...] Vitamins-Minerals ( CULTURELLE PROBIOTICS + MULTIV PO) (20 sources) Multiple Vitamin s-Minerals (CULTURELLE PROBIOTICS + MULTIV PO) Take by mouth Active Multiple Vitamin s-Minerals (CULTURELLE PROBIOTICS + MULTIV PO) Take by mouth 0 Active Prenat MV-Min w/At-Qgcpgk-LB A ( COMPLETE PO) (8 sources) take 1 tablet by josh th once at bedtime Prenat MV-Min w/Wp-Hkjoxu-QMS ( COMPLETE PO) Take 1 tablet by mouth at bedtime. Active take 1 tablet by mouth once at b edtime Prenat MV-Min w/Ug-Oyxssr-TXT ( COMPLETE PO) Take 1 tablet by mouth at bedtime. 0 Active MV-Min-Fe Fum-FA-DH A ( 1 PO) (20 sources) MV-Min- Fe Fum-FA-DHA ( 1 PO) [...] bedtime Active ubidecarenone 30 mg oral capsule (4 sources) take 1 capsule by mouth once [...] Reference Range Facility ALL PROGESTERONEon 5 PROGESTERONE 32.5 ng/mL . [facility] Comment on above: Follicular phase 0.1 - 0.9 Luteal phase 1.8 - 23.9 Ovulation phase 0.1 - 12.0 First trimester 11.0 - 44.3 Second trimester 25.4 - 83.3 Third trimester 58.7 - 214.0 Postmenopausal 0.0 - 0.1 Performed at: [address] [id number] Urologist: Ino Dougherty PhD, Phone: [phone] [facility] IGP,APTIMA HPV,AGE GDLNon AGE GDLN ACOG TESTING Note . [facility] Comment on above: TESTS RESULT FLAG UN ITS REF RANGE LAB Clinician Provided Cytology Information Source.............Cervix;Endocervix No. of containers..01 ThinPrep Vial Age Algo ACOG Radha... 30-65 FLAG LEGEND: L-Low Normal,H-High Normal,LL-Alert Low,HH-Alert High <-Panic Low,>-Panic High,A-Abnormal,AA-Critical Abnormal Performed at: 01 =[address] [address] Tahmina Mehta MD, HPV APTIMA Negative Negative [facility] Comment on above: This nucleic acid am plification test detects fourteen high- risk HPV types (16,18,31,33,35,39,45,51,52,56,58,59,66,68) without differentiation. Performed at: =[address] [id number] Urologist: Tahmina Mehta MD, Phone: [phone] Performed at: [address] [id number] Urologist: Tahmina Mehta MD, Phone: [phone] IGP, APTIMA HPV, RFX 16/18,45 Note . [facility] Comment on above: TESTS RESULT FLAG UN ITS REF RANGE LAB DIAGNOSIS: 02 NEGATIVE FOR INTRAEPITHELIAL LESION OR MALIGNANCY. Specimen adequacy: 02 Satisfactory for evaluation. Endocervical and/or squamous metaplastic cells (endocervical component) are present. Performed by: Orlando Roque Shank Cutter (ASCP) . 02 Note: Note 02 The [...] High <-Panic Low,>-Panic High,A-Abnormal,AA-Critical Abnormal Performed at: [facility] [address] [address] Tahmina Mehta MD, BRUSH-SPATULA CERVIX ENDOCERVIX [facility] [employer] ALL PROGESTERONEon 5 PROGESTERONE 30.3 ng/mL . [facility] Comment on above: Follicular phase 0.1 - 0.9 Luteal phase 1.8 - 23.9 Ovulation phase 0.1 - 12.0 First trimester 11.0 - 44.3 Second trimester 25.4 - 83.3 Third trimester 58.7 - 214.0 Postmenopausal 0.0 - 0.1 Performed at: [facility] [address] [id number] Urologist: Ino Dougherty PhD, Phone: [phone] [facility] Network [employer] [id number] 10-01-2024 HNO ID: [id number] Author: KIT CAICEDO MD Service: ? Author [...] of retrograde ejaculation considered. - Referred to [facility] urologists specializing in male infertility: Dr. Bull, Dr. Yu, or Dr. Duron. - Discussed use of special condom for semen collection available at [place] [facility]. - Advised scheduling a follow-up appointment after urological evaluation to discuss further reproductive management options, including IUI or IVF if necessary. This visit was conducted as a virtual visit via zoom. I have communicated my name and active licensure. The patient's identity and physical location were verified at the time of this visit. Either the patient or their legal administrative representative has been informed of the risks and benefits of -- and alternatives to -- treatment through a remote evaluation and consents to proceed with the evaluation remotely. I spent a total of 20 minutes on the date of the service which included preparing to see the patient, [id number] patient care, completing clinical documentation, counseling and educating the patient/family/caregive r, ordering medications, tests, or procedures, communicating results to the patient/family/caregive r, and care coordination (not separately reported). The patient consented to the use of [employer] software for draft documentation of the visit consistent with [facility]?s Notice of Privacy Practices. Normal [facility] ROWENA GUADALUPE ([id number]) 1990 F Date Time Provider Department 10/01/24 [...] Encounter Status:Closed by ANGELLA ARELLANO on 10/01/24 [facility] CONSULT PROGon 10-01-2024 CONSULT PROG HNO ID: [id number] Author: KIT CAICEDO MD Service: ? Author Type: Physician Type: Consult Progress Note Filed: 10/01/2024 11:29 Note Text: [facility] Date: 10/01/2024 Rowena Drake [...] year old (more content not included)... Normal [facility] ALL PROGESTERONEon 5 PROGESTERONE 49.0 ng/mL . [facility] Comment on above: Follicular phase 0.1 - 0.9 Luteal phase 1.8 - 23.9 Ovulation phase 0.1 - 12.0 First trimester 11.0 - 44.3 Second trimester 25.4 - 83.3 Third trimester 58.7 - 214.0 Postmenopausal 0.0 - 0.1 Performed at: [facility] [id number] Urologist: Ino Dougherty PhD, Phone: [phone] [facility] ALL PROGESTERONEon 5 PROGESTERONE 32.3 ng/mL . [facility] Comment on above: Follicular phase 0.1 - 0.9 Luteal phase 1.8 - 23.9 Ovulation phase 0.1 - 12.0 First trimester 11.0 - 44.3 Second trimester 25.4 - 83.3 Third trimester 58.7 - 214.0 Postmenopausal 0.0 - 0.1 Performed at: [facility] [id number] Urologist: Ino Dougherty PhD, Phone: [phone] [facility] PATHOLOGY REQUEST FOR LAB CO RPon 07-27-2024 PATHOLOGY REQUEST FOR LAB HELGA [facility] Comment on above: See report. Scanned copy available in EMR. SKIN TAG [facility] Pathology Request for Lab Co rpon 07-20-2024 Pathology Request for Lab Helga Normal [facility] Comment on above: Order Comment: SKIN TAG Result Comment: See report. Scanned copy available in EMR. PERFORMED BY: [place] [address] PATHOLOGIST VICE PRESIDENT TAX SAM MARTIN M.D. Performed By: #### P ATH TO [facility] #### [address] ALL PROGESTERONEon PROGESTERONE 32.1 ng/mL . [facility] Comment on above: Follicular phase 0.1 - 0.9 Luteal phase 1.8 - 23.9 Ovulation phase 0.1 - 12.0 First trimester 11.0 - 44.3 Second trimester 25.4 - 83.3 Third trimester 58.7 - 214.0 Postmenopausal 0.0 - 0.1 Performed at: - [facility] [address] [id number] Urologist: Ino Dougherty PhD, Phone: [phone] [facility] Estimated glomerular filtrat ion rate (GFR) non- Americanon 06-28-2024 GFR/1.73 sq M.predicted among non-blacks MDRD (S/P/Bld) [Vol rate/Area] Estimated glomerular filtration rate (GFR) non- >=60 mL/min/1.[address] [facility] Globulin Calc (S) [Mass/Vol] on 06-28-2024 Globulin (S) [Mass/Vol] Serum globulin measurement by calculation (mass/volume) [facility] Laboratory - Chemistry and C hemistry - challengeon 06-28-2024 Albumin [Mass/Vol] 4.0 g/dL 3.4-5.0 [facility] ALP [Catalytic activity/Vol] 43 U/L Low 46-[address] [facility] ALT [Catalytic activity/Vol] 18 U/L 14-[address] [facility] AST [Catalytic activity/Vol] 14 U/L Low 15-[address] [facility] Bilirubin [Mass/Vol] 0.2 mg/dL 0.2-1.0 [facility] Calcium [Mass/Vol] 9.3 mg/dL 8.5-10.1 [facility] Chloride [Moles/Vol] 103 mmol/L 98-107 [facility] CO2 [Moles/Vol] 26.9 mmol/L 21.0-32.0 [facility] Creatinine [Mass/Vol] 0.63 mg/dL 0.55-1.02 [facility] GFR/1.73 sq M.predicted MDRD (S/P/Bld) [Vol rate/Area] mL/min/{1.73_m2} >=60 mL/min/1.[address] [facility] Glucose [Mass/Vol] 89 mg/dL 74-106 [facility] Potassium [Moles/Vol] 4.4 mmol/L 3.5-5.1 [facility] Protein [Mass/Vol] 7.4 g/dL 6.4-8.2 [facility] Sodium [Moles/Vol] 138 mmol/L 136-145 [facility] Urea nitrogen [Mass/Vol] 13.0 mg/dL 7.0-18.[address] [facility] Urea nitrogen/Creatinine [Mass ratio] 20.6 mg/mg [facility] No Panel Informationon 06-28 Lamotrigine (Lamictal) Level 4.8 ug/mL 2.0-20.[address] [facility] Comment on above: Detection Limit = 1. 0Performed at: BN - [facility] [address] [id number] Director: Tana Gonzalez MD, Phone: [phone] Serum or plasma albumin/glob ulin mass ratioon 06-28-2024 Albumin/Globulin [Mass ratio] Serum or plasma albumin/globulin mass ratio [facility] Serum or plasma anion gap de terminationon 06-28-2024 Anion gap [Moles/Vol] Serum or plasma an ion gap determination [facility] Serum or plasma progesterone measurement (mass/volume)on 06-28-2024 Progesterone [Mass/Vol] Serum or plasma progesterone measurement (mass/volume) . [facility] Comment on above: Follicular phase 0.1 - 0.9 Luteal phase 1.8 - 23.9 Ovulation phase 0.1 - 12.0 First trimester 11.0 - 44.3 Second trimester 25.4 - 83.3 Third trimester 58.7 - 214.0 Postmenopausal 0.0 - 0.1Performed at: [facility] [place] [id number] Director: Ino Dougherty PhD, Phone: [phone] ALL PROGESTERONEon 5 PROGESTERONE 17.1 ng/mL . [facility] Network [employer] Comment on above: Follicular phase 0.1 - 0.9 Luteal phase 1.8 - 23.9 Ovulation phase 0.1 - 12.0 First trimester 11.0 - 44.3 Second trimester 25.4 - 83.3 Third trimester 58.7 - 214.0 Postmenopausal 0.0 - 0.1 Performed at: [employer] [place] [employer] [place] [id number] Urologist: Ino Dougherty PhD, Phone: [phone] [facility] Serum or plasma progesterone measurement (mass/volume)on 05-26-2024 Progesterone [Mass/Vol] Serum or plasma progesterone measurement (mass/volume) . [facility] Comment on above: Follicular phase 0.1 - 0.9 Luteal phase 1.8 - 23.9 Ovulation phase 0.1 - 12.0 First trimester 11.0 - 44.3 Second trimester 25.4 - 83.3 Third trimester 58.7 - 214.0 Postmenopausal 0.0 - 0.1Performed at: [facility] [place], [place] [id number] Director: Ino Dougherty PhD, Phone: [phone] ALL PROGESTERONEon 4 PROGESTERONE 21.2 ng/mL . [facility] [employer] Comment on above: Follicular phase 0.1 - 0.9 Luteal phase 1.8 - 23.9 Ovulation phase 0.1 - 12.0 First trimester 11.0 - 44.3 Second trimester 25.4 - 83.3 Third trimester 58.7 - 214.0 Postmenopausal 0.0 - 0.1 Performed at: [address] [id number] Urologist: Ino Dougherty PhD, Phone: [phone] [facility] ALL PROGESTERONEon 4 PROGESTERONE 25.4 ng/mL . [facility] Comment on above: Follicular phase 0.1 - 0.9 Luteal phase 1.8 - 23.9 Ovulation phase 0.1 - 12.0 First trimester 11.0 - 44.3 Second trimester 25.4 - 83.3 Third trimester 58.7 - 214.0 Postmenopausal 0.0 - 0.1 Performed at: [address] [id number] Urologist: Ino Dougherty PhD, Phone: [phone] [facility] [employer] ALL PROGESTERONEon 4 PROGESTERONE 19.7 ng/mL . [facility] Comment on above: Follicular phase 0.1 - 0.9 Luteal phase 1.8 - 23.9 Ovulation phase 0.1 - 12.0 First trimester 11.0 - 44.3 Second trimester 25.4 - 83.3 Third trimester 58.7 - 214.0 Postmenopausal 0.0 - 0.1 Performed at: [address] [id number] Urologist: Ino Dougherty PhD, Phone: [phone] [facility] [employer] ALL PROGESTERONEon 4 PROGESTERONE 20.0 ng/mL . [facility] Comment on above: Follicular phase 0.1 - 0.9 Luteal phase 1.8 - 23.9 Ovulation phase 0.1 - 12.0 First trimester 11.0 - 44.3 Second trimester 25.4 - 83.3 Third trimester 58.7 - 214.0 Postmenopausal 0.0 - 0.1 Performed at: [address] [id number] Urologist: Ino Dougherty PhD, Phone: [phone] [facility] Serum or plasma progesterone measurement (mass/volume)on 09-11-2023 Progesterone [Mass/Vol] 12.9 ng/mL . [facility] Comment on above: Follicular phase 0.1 - 0.9 Luteal phase 1.8 - 23.9 Ovulation phase 0.1 - 12.0 First trimester 11.0 - 44.3 Second trimester 25.4 - 83.3 Third trimester 58.7 - 214.0 Postmenopausal 0.0 - 0.1Performed at: [facility] [employer] [address] [place], [place] [id number] Director: Ino Dougherty PhD, Phone: [phone] Serum or plasma progesterone measurement (mass/volume)on 08-08-2023 Progesterone [Mass/Vol] 11.3 ng/mL . [facility] Comment on above: Follicular phase 0.1 - 0.9 Luteal phase 1.8 - 23.9 Ovulation phase 0.1 - 12.0 First trimester 11.0 - 44.3 Second trimester 25.4 - 83.3 Third trimester 58.7 - 214.0 Postmenopausal 0.0 - 0.1Performed at: [employer] [address] [place], [place] [id number] Director: Ino Dougherty PhD, Phone: [phone] Serum or plasma progesterone measurement (mass/volume)on 07-09-2023 Progesterone [Mass/Vol] 16.6 ng/mL . [facility] Comment on above: Follicular phase 0.1 - 0.9 Luteal phase 1.8 - 23.9 Ovulation phase 0.1 - 12.0 First trimester 11.0 - 44.3 Second trimester 25.4 - 83.3 Third trimester 58.7 - 214.0 Postmenopausal 0.0 - 0.1Performed at: [employer] [place], [place] [id number] Director: Ino Dougherty PhD, Phone: [phone] No Panel Informationon 06-26 Human Chorionic Gonadotropin, Quant <1 mIU/mL [facility] Comment on above: 5-50 0.2-1 LCCO91-12 0 1-2 OQHCU207-5,000 2-3 HNSZC982-05,000 3-4 WEEKS1,000-50,000 4-5 WEEKS10,000-100,000 5-6 WEEKS15,000-200,000 6-8 WEEKS10,000-100,000 2-3 MONTHS Serum or plasma progesterone measurement (mass/volume)on 06-08-2023 Progesterone [Mass/Vol] 20.7 ng/mL . [facility] Comment on above: Follicular phase 0.1 - 0.9 Luteal phase 1.8 - 23.9 Ovulation phase 0.1 - 12.0 First trimester 11.0 - 44.3 Second trimester 25.4 - 83.3 Third trimester 58.7 - 214.0 Postmenopausal 0.0 - 0.1Performed at: [employer] [place], [place] [id number] Director: Ino Dougherty PhD, Phone: [phone] Laboratory - Chemistry and C hemistry - challengeon 05-09-2023 Free T4 [Mass/Vol] 0.77 ng/dL 0.76-1.46 [facility] No Panel Informationon 05-08 Free Triiodothyronine 2.78 pg/mL 2.18-3.98 [facility] Serum or plasma progesterone measurement (mass/volume)on 05-09-2023 Progesterone [Mass/Vol] 19.3 ng/mL . [facility] Comment on above: Follicular phase 0.1 - 0.9 Luteal phase 1.8 - 23.9 Ovulation phase 0.1 - 12.0 First trimester 11.0 - 44.3 Second trimester 25.4 - 83.3 Third trimester 58.7 - 214.0 Postmenopausal 0.0 - 0.1Performed at: [employer] [place], [place] [id number] Director: Ino Dougherty PhD, Phone: [phone] BETA HCG, URINE (POC DEVICE) on 01-15-2023 Beta HCG ( test) Ql (U) Negative Negative [facility] Interpretation and review of laboratory results Normal [facility] Test performed at address of the patient encounter. [facility] CARDIAC RHYTHM (SCANNED)on 03-17-2022 [facility] CBC AND ELECTRONIC DIFFon Basophils (Bld) [#/Vol] 0.05 10*3/uL 0.00 - 0.15 K/uL [facility] Basophils/100 WBC (Bld) 0.5 % [facility] Differential cell count method Nom (Bld) Electronic Differential [facility] Eosinophils (Bld) [#/Vol] 0.12 10*3/uL 0.00 - 0.42 K/uL [facility] Eosinophils/100 WBC (Bld) 1.2 % [facility] Erythrocyte distribution width (RBC) [Ratio] 13.1 % 10.8 - 14.9 % [facility] Hematocrit (Bld) [Volume fraction] 42.5 % 34.9 - 44.3 % [facility] Hemoglobin (Bld) [Mass/Vol] 14.3 g/dL 11.4 - 15.2 g/dL [facility] Immature granulocytes (Bld) [#/Vol] K/uL NINF - 0.08 K/uL [facility] Immature granulocytes/100 WBC (Bld) 0.3 % [facility] Lymphocytes (Bld) [#/Vol] 3.42 10*3/uL 1.16 - 3.51 K/uL [facility] Lymphocytes/100 WBC (Bld) 32.9 % [facility] MCH (RBC) [Entitic mass] 31.1 pg 25. 9 - 33.9 pg [facility] MCHC (RBC) [Mass/Vol] 33.6 g/dL 31.4 - 35.9 g/dL [facility] MCV (RBC) [Entitic vol] 92.4 fL 79.6 - 97.7 fL [facility] Monocytes (Bld) [#/Vol] 0.62 10*3/uL 0.22 - 0.87 K/uL [facility] Monocytes/100 WBC (Bld) 6.0 % [facility] Neutrophils (Bld) [#/Vol] 6.14 10*3/uL 1.64 - 7.28 K/uL [facility] Nucleated RBC/100 WBC (Bld) [Ratio] 0.0 % [facility] Platelet mean volume (Bld) [Entitic vol] 10.8 fL 8.5 - 12.2 fL [facility] Platelets (Bld) [#/Vol] 326 10*3/uL 150 - 393 K/uL [facility] RBC (Bld) [#/Vol] 4.60 10*6/uL [facility] Segmented neutrophils/100 WBC (Bld) 59.1 % [facility] WBC (Bld) [#/Vol] 10.38 10*3/uL 3.99 - 11.19 K/uL [facility] HCG ( test) Ql (U)O rdered By: Jamil Santos on 01-09-2023 Beta HCG ( test) Ql Negative Negative [facility] Interpretation and review of laboratory results Normal [facility] PT,INR,PTTon 01-09-2023 aPTT Coag (PPP) [Time] 31.1 s [facility] INR Coag (Bld) [Relative time] 1.0 {INR} 0.9 - 1.1 [facility] Interpretation and review of laboratory results Normal [facility] PT Coag (PPP) [Time] 13.0 s [facility] SCREEN: MRSA/MSSAOrdered By: Alexandra Slater on 01-09-2023 Interpretation and review of laboratory results Abnormal [facility] Methicillin Resistant S. Aureus By Pcr Negative Negative [facility] Staphylococcus Aureus By Pcr Positive Abnormal Negative [facility] This test was perfor med using a [...] by the Clinical Microbiology Laboratory at [facility]. It has not been cleared or approved by the FDA.The laboratory is regulated under CLIA as qualified to perform high-complexity testing. This test is used for clinical purposes. It should not be regarded as investigational or for research. [facility] XR Cervical and thoracic and [...] Intact vagus nerve stimulator as described. [facility] Radiology Study observation (narrative) [facility] XR Cervical and thoracic and lumbar spine ViewsOrdered By: Alice Crespo on 01-09-2023 [facility] Work Phone: [phone] PROGESTERONEon 05-24-2022 Progesterone 5.5 ng/mL Normal [facility] Comment on above: Result Comment: Foll icular phase 0.1 - 0.9 Luteal phase 1.8 - 23.9 Ovulation phase 0.1 - 12.0 First trimester 11.0 - 44.3 Second trimester 25.4 - 83.3 Third trimester 58.7 - 214.0 Postmenopausal 0.0 - 0.1 Performed By: #### P DANIEL #### [facility] [address] [place] [address] Dr. Nicol Oswald LAMOTRIGINEon 05-02-2022 Lamotrigine, Serum 4.7 ug/mL Normal 2.0-20.0 [facility] Comment on above: Result Comment: Dete ction Limit = 1.0 Performed By: #### P DANIEL #### [facility] [address] [place] [address] Dr. Nicol Oswald CBC AUTO DIFFon 04-30-2022 BASO # 0.0 103/ul Normal 0.0-0.1 [facility] Comment on above: Performed By: #### C BC #### [facility] [address] [place] [address] Dr. Nicol Oswald Basophils/100 WBC (Bld) 0.4 % Normal 0.2-2.0 [facility] Comment on above: Performed By: #### C BC #### [facility] [address] [place] [address] Dr. Nicol Oswald EO # 0.2 103/ul Normal 0.0-0.7 [facility] Comment on above: Performed By: #### C BC #### [facility] [address] [place] [address] Dr. Nicol Oswald Eosinophils/100 WBC (Bld) 1.9 % Normal 0.9-7.0 [facility] Comment on above: Performed By: #### C BC #### [facility] [address] [place] [address] Dr. Nicol Oswald Erythrocyte distribution width (RBC) [Ratio] 12.8 % Normal 11.0-15.0 [facility] Comment on above: Performed By: #### C BC #### [facility] [address] [place] [address] Dr. Nicol Oswald Hematocrit (Bld) [Volume fraction] 40.4 % Normal 36.0-48.0 [facility] Comment on above: Performed By: #### C BC #### [facility] [address] [place] [address] Dr. Nicol Oswald Hemoglobin (Bld) [Mass/Vol] 13.6 g/dL Normal 12.0-16.0 [facility] Comment on above: Performed By: #### C BC #### [facility] [address] [place] [address] Dr. Nicol Oswald IG # 0.03 10e3/ul Normal 0.00-0.03 [facility] Comment on above: Performed By: #### C BC #### [facility] [address] [place] [address] Dr. Nicol Oswald IG % 0.4 % Normal 0.0-0.5 [facility] Comment on above: Performed By: #### C BC #### [facility] [address] [place] [address] Dr. Nicol Oswald LYMPH # 3.1 103/ul Normal 1.2-3.8 [facility] Comment on above: Performed By: #### C BC #### [facility] [address] [place] [address] Dr. Nicol Oswald Lymphocytes/100 WBC (Bld) 36.4 % Normal 20.5-60.0 [facility] Comment on above: Performed By: #### C BC #### [facility] [address] [place] [address] Dr. Nicol Oswald MANUAL DIFF REQ NO Normal [facility] Comment on above: Performed By: #### C BC #### [facility] [address] [place] [address] Dr. Nicol Oswald MCH (RBC) [Entitic mass] 31.0 pg Normal 26.7-34.0 [facility] Comment on above: Performed By: #### C BC #### [facility] [address] [place] [address] Dr. Nicol Oswald MCHC (RBC) [Mass/Vol] 33.7 g/dL Normal 29.9-35.2 [facility] Comment on above: Performed By: #### C BC #### [facility] [address] [place] [address] Dr. Nicol Oswald MCV (RBC) [Entitic vol] 92.0 fL Normal 81.0-99.0 [facility] Comment on above: Performed By: #### C BC #### [facility] [address] [place] [address] Dr. Nicol Oswald MONO # 0.7 103/ul Normal 0.3-0.8 [facility] Comment on above: Performed By: #### C BC #### [facility] [address] [place] [address] Dr. Nicol Oswald Monocytes/100 WBC (Bld) 7.7 % Normal 1.7-12.0 [facility] Comment on above: Performed By: #### C BC #### [facility] [address] [place] [address] Dr. Nicol Oswald NEUT # 4.5 103/ul Normal 1.4-6.5 [facility] Comment on above: Performed By: #### C BC #### [facility] [address] [place] [address] Dr. Nicol Oswald Neutrophils/100 WBC (Bld) 53.2 % Normal 43.0-75.0 [facility] Comment on above: Performed By: #### C BC #### [facility] [address] [place] [address] Dr. Nicol Oswald Platelet mean volume (Bld) [Entitic vol] 11.0 fL Normal 9.5-13.5 [facility] Comment on above: Performed By: #### C BC #### [facility] [address] [place] [address] Dr. Nicol Oswald PLT 282 103/ul Normal 150-450 [facility] Comment on above: Performed By: #### C BC #### [facility] [address] [place] [address] Dr. Nicol Oswald RBC 4.39 106/ul Normal 4.20-5.40 [facility] Comment on above: Performed By: #### C BC #### [facility] [address] [place] [address] Dr. Nicol Oswald WBC 8.4 103/ul Normal 4.0-11.0 [facility] Comment on above: Performed By: #### C BC #### [facility] [address] [address] [address] Nicol Oswald LIVER PROFILEon 04-30-2022 Albumin [Mass/Vol] 4.1 g/dL Normal 3.4-5.0 [facility] Comment on above: Performed By: #### P DANIEL #### [facility] [address] [address] [address] Nicol Oswald Albumin/Globulin [Mass ratio] 1.2 {ratio} Normal [facility] Comment on above: Performed By: #### P DANIEL #### [facility] [address] [place] [address] Dr. Nicol Oswald ALP [Catalytic activity/Vol] 52 U/L Normal 46-116 [facility] Comment on above: Performed By: #### P DANIEL #### [facility] [address] [place] [address] Dr. Nicol Oswald ALT [Catalytic activity/Vol] 23 U/L Normal 14-59 [facility] Comment on above: Performed By: #### P DANIEL #### [facility] [address] [place] [address] Dr. Nicol Oswald AST [Catalytic activity/Vol] 17 U/L Normal 15-37 [facility] Comment on above: Performed By: #### P DANIEL #### [facility] [address] [place] [address] Dr. Nicol Oswald BILI, CONJUGATED 0.1 mg/dL Normal 0.0-0.2 [facility] Comment on above: Performed By: #### P DANIEL #### [facility] [address] [place] [address] Dr. Nicol Oswald Bilirubin [Mass/Vol] 0.2 mg/dL Normal 0.2-1.0 [facility] Comment on above: Performed By: #### P DANIEL #### [facility] [address] [address] [address] Nicol Oswald Globulin (S) [Mass/Vol] 3.4 g/dL Normal [facility] Comment on above: Performed By: #### P ROGES #### [facility] [address] [address] [address] Nicol Oswald Protein [Mass/Vol] 7.5 g/dL Normal 6.4-8.2 [facility] Comment on above: Performed By: #### P ROGES #### [facility] [address] [place] [address] Dr. Nicol Oswald PROF CHEM 8 (BAS METB)on Anion gap [Moles/Vol] 8.5 mmol/L Normal [facility] Comment on above: Performed By: #### P ROGES #### [facility] [address] [place] [address] Dr. Nicol Oswald Calcium [Mass/Vol] 9.4 mg/dL Normal 8.5-10.1 [facility] Comment on above: Performed By: #### P ROGES #### [facility] [address] [place] [address] Dr. Nicol Oswald Chloride [Moles/Vol] 102 mmol/L Normal 98-107 [facility] Comment on above: Performed By: #### P ROGES #### [facility] [address] [place] [address] Dr. Nicol Oswald CO2 [Moles/Vol] 30.4 mmol/L Normal 21.0-32.0 [facility] Comment on above: Performed By: #### P ROGES #### [facility] [address] [place] [address] Dr. Nicol Oswald Creatinine [Mass/Vol] 0.57 mg/dL Normal 0.55-1.02 [facility] Comment on above: Performed By: #### P ROGES #### [facility] [address] [place] [address] Dr. Nicol Oswald EGFR-AF SAMMARINESE >60 Normal >=60 [facility] Comment on above: Performed By: #### P DANIEL #### [facility] [address] [address] [address] Nicol Oswald EGFR-NON AF SAMMARINESE >60 Normal >=60 [facility] Comment on above: Performed By: #### P DANIEL #### [facility] [address] [address] [address] Nicol Oswald Glucose [Mass/Vol] 89 mg/dL Normal 74-106 [facility] Comment on above: Performed By: #### P DANIEL #### [facility] [address] [address] [address] Nicol Oswald Potassium [Moles/Vol] 3.9 mmol/L Normal 3.5-5.1 [facility] Comment on above: Performed By: #### P DANIEL #### [facility] [address] [address] [address] Nicol Oswald Sodium [Moles/Vol] 137 mmol/L Normal 136-145 [facility] Comment on above: Performed By: #### P DANIEL #### [facility] [address] [address] [address] Nicol Oswald Urea nitrogen [Mass/Vol] 10.0 mg/dL Normal 7.0-18.0 [facility] Comment on above: Performed By: #### P DANIEL #### [facility] [address] [address] [address] Nicol Oswald Urea nitrogen/Creatinine [Mass ratio] 17.5 mg/mg Normal [facility] Comment on above: Performed By: #### P DANIEL #### [facility] [address] [address] [address] Nicol Oswald ESTROGENon 04-19-2022 Estrogens, Total 124 pg/mL Normal [facility] Comment on above: Result Comment: Prep ubertal < 40 Female Cycle: 1-10 Days 16 - 328 11-20 Days 34 - 501 21-30 Days 48 - 350 Post-Menopausal 40 - 244 Performed By: #### E KYLIE #### [facility] [address] [address] [address] Nicol Oswald DHEA SERUMon 04-18-2022 Dehydroepiandrosterone (DHEA) 371 ng/dL Normal 31-[address] [facility] Comment on above: Result Comment: Age [...] [birth year] Performed By: #### P DANIEL #### [facility] [address] [address] [address] Nicol Oswald DHEA-SULFATEon 04-16-2022 DHEA-Sulfate 371.0 ug/dL Normal 84.8-378.0 [facility] Comment on above: Performed By: #### Tenzin SANCHEZ #### [facility] [address] [address] [address] Nicol Oswald FSHon 04-16-2022 FSH 5.6 mIU/mL Normal [facility] Comment on above: Result Comment: Adul t Female: Follicular phase 3.5 - 12.5 Ovulation phase 4.7 - 21.5 Luteal phase 1.7 - 7.7 Postmenopausal 25.8 - 134.8 Performed By: #### P DANIEL #### [facility] [address] [address] [address] Nicol Oswald LUTEINIZING HORMONE (LH)on 0 04-16-2022 LH 12.9 mIU/mL Normal [facility] Comment on above: Result Comment: Adul t Female: Follicular phase 2.4 - 12.6 Ovulation phase 14.0 - 95.6 Luteal phase 1.0 - 11.4 Postmenopausal 7.7 - 58.5 Performed By: #### P DANIEL #### [facility] [address] [address] [address] Nicol Oswald PROGESTERONEon 04-16-2022 Progesterone 0.2 ng/mL Normal [facility] Comment on above: Result Comment: Foll icular phase 0.1 - 0.9 Luteal phase 1.8 - 23.9 Ovulation phase 0.1 - 12.0 First trimester 11.0 - 44.3 Second trimester 25.4 - 83.3 Third trimester 58.7 - 214.0 Postmenopausal 0.0 - 0.1 Performed By: #### P ROGES #### [facility] [address] [address] [address] Nicol Oswald PROLACTINon 04-16-2022 Prolactin 7.1 ng/mL Normal 4.8-23.3 [facility] Comment on above: Performed By: #### P ROLAC #### [facility] [address] [address] [address] Nicol Oswald US PELVIS AND TRANSVAGon [...] CYDNEY VALDEZ Date: 2022-04-16 08:[address] [facility] CBC AUTO DIFFon 04-15-2022 BASO # 0.0 103/ul Normal 0.0-0.1 [facility] Comment on above: Performed By: #### C BC #### [facility] [address] [address] [address] Nicol Oswald Basophils/100 WBC (Bld) 0.5 % Normal 0.2-2.0 [facility] Comment on above: Performed By: #### C BC #### [facility] [address] [address] [address] Nicol Oswald EO # 0.2 103/ul Normal 0.0-0.[address] [facility] Comment on above: Performed By: #### C BC #### [facility] [address] [place] [address] Dr. Nicol Oswald Eosinophils/100 WBC (Bld) 2.1 % Normal 0.9-7.0 [facility] Comment on above: Performed By: #### C BC #### [facility] [address] [place] [address] Dr. Nicol Oswald Erythrocyte distribution width (RBC) [Ratio] 12.5 % Normal 11.0-15.0 [facility] Comment on above: Performed By: #### C BC #### [facility] [address] [place] [address] Dr. Nicol Oswald Hematocrit (Bld) [Volume fraction] 44.7 % Normal 36.0-48.0 [facility] Comment on above: Performed By: #### C BC #### [facility] [address] [place] [address] Dr. Nicol Oswald Hemoglobin (Bld) [Mass/Vol] 14.3 g/dL Normal 12.0-16.[address] [facility] Comment on above: Performed By: #### C BC #### [facility] [address] [place] [address] Dr. Nicol Oswald IG # 0.01 10e3/ul Normal 0.00-0.[address] [facility] Comment on above: Performed By: #### C BC #### [facility] [address] [place] [address] Dr. Nicol Oswald IG % 0.1 % Normal 0.0-0.[address] [facility] Comment on above: Performed By: #### C BC #### [facility] [address] [place] [address] Dr. Nicol Oswald LYMPH # 2.0 103/ul Normal 1.2-3.[address] [facility] Comment on above: Performed By: #### C BC #### [facility] [address] [place] [address] Dr. Nicol Oswald Lymphocytes/100 WBC (Bld) 26.0 % Normal 20.5-60.0 [facility] Comment on above: Performed By: #### C BC #### [facility] [address] [place] [address] Dr. Nicol Oswald MANUAL DIFF REQ NO Normal [facility] Comment on above: Performed By: #### C BC #### [facility] [address] [place] [address] Dr. Nicol Oswald MCH (RBC) [Entitic mass] 30.8 pg Normal 26.7-34.0 [facility] Comment on above: Performed By: #### C BC #### [facility] [address] [place] [address] Dr. Nicol Oswald MCHC (RBC) [Mass/Vol] 32.0 g/dL Normal 29.9-35.2 [facility] Comment on above: Performed By: #### C BC #### [facility] [address] [place] [address] Dr. Nicol Oswald MCV (RBC) [Entitic vol] 96.3 fL Normal 81.0-99.0 [facility] Comment on above: Performed By: #### C BC #### [facility] [address] [place] [address] Dr. Nicol Oswald MONO # 0.6 103/ul Normal 0.3-0.8 [facility] Comment on above: Performed By: #### C BC #### [facility] [address] [place] [address] Dr. Nicol Oswald Monocytes/100 WBC (Bld) 7.3 % Normal 1.7-12.0 [facility] Comment on above: Performed By: #### C BC #### [facility] [address] [place] [address] Dr. Nicol Oswald NEUT # 4.9 103/ul Normal 1.4-6.5 [facility] Comment on above: Performed By: #### C BC #### [facility] [address] [place] [address] Dr. Nicol Oswald Neutrophils/100 WBC (Bld) 64.0 % Normal 43.0-75.0 [facility] Comment on above: Performed By: #### C BC #### [facility] [address] [place] [address] Dr. Nicol Oswald Platelet mean volume (Bld) [Entitic vol] 11.3 fL Normal 9.5-13.5 [facility] Comment on above: Performed By: #### C BC #### [facility] [address] [place] [address] Dr. Nicol Oswald PLT 302 103/ul Normal 150-[address] [facility] Comment on above: Performed By: #### C BC #### [facility] [address] [place] [address] Dr. Nicol Oswald RBC 4.64 106/ul Normal 4.20-5.40 [facility] Comment on above: Performed By: #### C BC #### [facility] [address] [place] [address] Dr. Nicol Oswald WBC 7.7 103/ul Normal 4.0-11.0 [facility] Comment on above: Performed By: #### C BC #### [facility] [address] [place] [address] Dr. Nicol Oswald FREE T4on 04-15-2022 Free T4 [Mass/Vol] 0.80 ng/dL Normal 0.76-1.46 [facility] Comment on above: Performed By: #### F T4 #### [facility] [address] [place] [address] Dr. Nicol Oswald GLYCOHEMOGLOBIN A1Con 2022 ADA RECOMMENDATION SEE BELOW Normal [facility] Comment on above: Result Comment: ADA RECOMMENDED LIMIT 4.0 - 6.0 ADA THERAPEUTIC TARGET < 7.0 ACTION SUGGESTED > 7.0 Performed By: #### A 1C #### [facility] [address] [place] [address] Dr. Nicol Oswald Glucose [Mass/Vol] 114 mg/dL Normal [facility] Comment on above: Performed By: #### A 1C #### [facility] [address] [place] [address] Dr. Nicol Oswald HbA1c (Bld) [Mass fraction] 5.6 % Normal 4.5-6.[address] [facility] Comment on above: Performed By: #### A 1C #### [facility] [address] [place] [address] Dr. Nicol Oswald PREG QUANT HCGon 04-15-2022 HCG QUANT <1 Normal [facility] Comment on above: Performed By: #### P REGQNT, TSH #### [facility] [address] [place] [address] Dr. Nicol Oswald HCG RANGE SEE BELOW [facility] Comment on above: Result Comment: 5-50 0.2-1 WEEK 50-500 1-2 WEEKS 100-5,000 2-3 WEEKS 500-10,000 3-4 WEEKS 1,000-50,000 4-5 WEEKS 10,000-100,000 5-6 WEEKS 15,000-200,000 6-8 WEEKS 10,000-100,000 2-3 MONTHS Performed By: #### P REGQWES, TSH #### [facility] [address] [place] [address] Dr. Nicol Oswald TSHon 04-15-2022 TSH 1.312 uIU/mL Normal 0.358-3.740 [facility] Comment on above: Performed By: #### P REGQWES, TSH #### [facility] [address] [place] [address] Dr. Nicol Oswald PAP ACOG PANEL 2: 21 to 31on 08-31-2021 . . Normal [facility] Comment on above: Performed By: #### P DANIEL #### [facility] [address] [place] [address] Dr. Nicol Oswald Age Gdln ACOG Testing - [facility] Comment on above: Performed By: #### P DANIEL #### [facility] [address] [place] [address] Dr. Niclo Oswald DIAGNOSIS: Comment Normal [facility] Comment on above: Result Comment: NEGA TIVE FOR INTRAEPITHELIAL LESION OR MALIGNANCY. THIS SPECIMEN WAS RESCREENED PART OF OUR DATA PROCESSING MECHANIC PROGRAM. Performed By: #### P DANIEL #### [facility] [address] [address] [address] Nicol Oswald Methodology: Comment Normal [facility] Comment on above: Result Comment: This liquid based ThinPrep(R) pap test was screened with the use of an image guided system. Performed By: #### P ROGES #### [facility] [address] [place] [address] Dr. Nicol Oswald Note: Comment Normal [facility] Comment on above: Result Comment: The Pap smear is a screening test designed to aid in the detection of premalignant and malignant conditions of the uterine cervix. It is not a diagnostic procedure and should not be used as the sole means of detecting cervical cancer. Both false-positive and false-negative reports do occur. . Performed By: #### P ROGES #### [facility] [address] [place] [address] Dr. Nicol Oswald Performed by: Comment Normal [facility] Comment on above: Result Comment: Mireille Blanco, Agronomy Manager (ASCP) Performed By: #### P ROGES #### [facility] [address] [place] [address] Dr. Nicol Oswald QC reviewed by: Comment Normal [facility] Comment on above: Result Comment: Tahira Roque, Agronomy Manager (ASCP) Performed By: #### P ROGES #### [facility] [address] [place] [address] Dr. Nicol Oswald Reflex Criteria: Comment Normal [facility] Comment on above: Result Comment: The HPV DNA reflex criteria were not met with this specimen result therefore, no HPV testing was performed. . Performed By: #### P ROGES #### [facility] [address] [address] [address] Nicol Oswald Specimen adequacy: Comment Normal [facility] Comment on above: Result Comment: Sati sfactory for evaluation. Endocervical and/or squamous metaplastic cells (endocervical component) are present. Performed By: #### P ROGES #### [facility] [address] [place] [address] Dr. Nicol Oswald CBC Auto Diff Reflex Manualo n 02-18-2019 Automated Absolute Neutrophil 5.73 10*3/mm3 Normal [facility] Comment on above: Result Comment: Auto mated Absolute Neutrophil Count (ANC) is directly measured using a hematology instrument. ANC determined from manual differential cell count may differ. No [facility] reference range has been validated for this assay. Performed By: #### C D #### [place] [address] Basophil 0.5 % Normal 0.0-1.0 [facility] Comment on above: Performed By: #### C D #### [place] [address] Differential Type Automated Normal [facility] Comment on above: Performed By: #### C D #### [place] [address] Eosinophil 1.6 % Normal 1.0-4.0 [facility] Comment on above: Performed By: #### C D #### [place] [address] Erythrocyte distribution width (RBC) [Ratio] 13.4 % Normal 10-14.1 [facility] Comment on above: Performed By: #### C D #### [place] [address] Lymphocyte 22.6 % Low 24.0-44.0 [facility] Comment on above: Performed By: #### C D #### [place] [address] MCH (RBC) [Entitic mass] 30.7 pg Normal 26-34 [facility] Comment on above: Performed By: #### C D #### [place] [address] MCHC (RBC) [Mass/Vol] 33.2 % Normal 31.0-37.0 [facility] Comment on above: Performed By: #### C D #### [place] [address] MCV (RBC) [Entitic vol] 92.4 fL Normal 80-100 [facility] Comment on above: Performed By: #### C D #### Performed at [address] [address] Monocyte 8.2 % High 1.0-7.0 [facility] Comment on above: Performed By: #### C D #### Performed at [address] [address] Neutrophil 67.1 % Normal 41.0-77.0 [facility] Comment on above: Performed By: #### C D #### Performed at [address] [address] Platelet mean volume (Bld) [Entitic vol] 11.5 fL Normal 9.3-13.0 [facility] Comment on above: Performed By: #### Ruiz D #### Performed at [address] [address] Platelets (Bld) [#/Vol] 268 10*3/uL Normal 140-440 [facility] Comment on above: Performed By: #### Ruiz D #### Performed at [address] [address] RBC (Bld) [#/Vol] 4.60 10*6/uL Normal 4.0-5.2 [facility] Comment on above: Performed By: #### Ruiz D #### Performed at [address] [address] WBC (Bld) [#/Vol] 8.6 10*3/uL Normal 4.5-11 [facility] Comment on above: Performed By: #### Ruiz D #### Performed at [address] [address] Comprehensive Metabolic Pane mehran 02-18-2019 Albumin [Mass/Vol] 4.7 g/dL Normal 3.4-5.2 [facility] ALP [Catalytic activity/Vol] 47 U/L Low 50-136 [facility] ALT [Catalytic activity/Vol] 32 U/L Normal <40 [facility] AST [Catalytic activity/Vol] 29 U/L Normal 15-50 [facility] Bilirubin Ql (U) 0.2 mg/dL Normal 0.1-1.0 [facility] Calcium [Mass/Vol] 9.8 mg/dL Normal 8-10.5 [facility] Chloride [Moles/Vol] 104 mmol/L Normal 95-106 [facility] CO2 [Moles/Vol] 25 mmol/L Normal 24-35 [facility] Creatinine [Mass/Vol] 0.52 mg/dL Normal 0.5-1 [facility] Glucose [Mass/Vol] 135 mg/dL High 60-115 [facility] Potassium [Moles/Vol] 4.5 mmol/L Normal 3.7-5.3 [facility] Protein [Mass/Vol] 8.0 g/dL Normal 6.4-8.4 [facility] Sodium [Moles/Vol] 140 mmol/L Normal 135-145 [facility] Urea nitrogen [Mass/Vol] 15 mg/dL Normal 5-18 [facility] Valproic Acidon 02-18-2019 Valproic Acid 47.1 ug/mL Low 50.0-100.0 [facility] PAP, THIN PREP WITH IMAGINGo n 06-29-2018 PAP, THIN PREP WITH IMAGING Normal [facility] Comment on above: Result Comment: INTE RPRETATION Thin Prep Image-Guided Pap Test (Cervical/Endocervical) NEGATIVE FOR INTRAEPITHELIAL LESION /MALIGNANCY Satisfactory for evaluation (Endocervical/transformation zone component present) [facility]/06/27/2018 The Pap test [...] 05/18/18 ICD-CM DIAGNOSIS CODE(S) Z01.419 Encntr For Backwinder Exam (general) (routine) W/o Abn Findings * * EFFECTIVE 06/08/2018 * * CLINICAL CHEMISTRY PLATFORM CHANGES ARE ASSOCIATED WITH * * REFERENCE RANGE CHANGES FOR A NUMBER OF ANALYTES. PLEASE * * REVIEW REFERENCE INTERVALS CAREFULLY * * Pathology [employer] [address] [place] [address] CLIA No. [id number] CAP Accreditation No. [id number] Mine Analyst: Johnson Garland M.D. [email or web address] Accession Number: [id number] Performed By: #### P L PAP W/IMAGE #### [address] [address] [address] Nucleic-Acid Probe-Endoce rvical Swabon 06-24-2018 CT Nucleic-Acid Probe-Endocervical Swab Negative Normal NEGATIVE [facility] Comment on above: Performed By: #### G C Amp Endocerv, CT Amp Endocerv #### [address] [address] Age at specimen collection = Normal [facility] Comment on above: Performed By: #### G C Amp Endocerv, [facility] #### [address] [address] Performed By: #### P L PAP W/IMAGE #### [address] [address] GC Nucleic-Acid Probe-Endoce rvical Swabon 06-24-2018 GC Nucleic-Acid Probe-Endocervical Swab Negative Normal NEGATIVE [facility] Comment on above: Performed By: #### G C Amp Endocerv, CT Amp Endocerv #### [address] [place] [address] Platelet Functionon 03-24-19 19 Collagen/ADP 148 sec High 67-112 [facility] Comment on above: Performed By: #### P FA #### [facility] [address] [place] [address] Collagen/EPI 228 sec High 85-172 [facility] Comment on above: Performed By: #### P FA #### [facility] [address] [place] [address] Interpretation Abnormal platelet function. Normal [facility] Comment on above: Result Comment: Comm on [...] established. Performed By: #### P FA #### [facility] [address] [place], [place] [id number] XR ANKLE RIGHT STANDARDon XR ANKLE RIGHT STANDARD Radiology exam i s complete. No Radiologist dictation. Please follow up with ordering provider. Final result Normal [facility] Vital Signs Date Time Vital Sign Value Performing Clinician Facility 07-20-2024 11:33-0400 Body mass index (BMI) [Ratio] 34.52 kg/m2 Donovan Kimmie DO Work Phone: [facility] 07-20-2024 11:33-0400 Body weight 89.81 kg Donovan Kimmie DO Work Phone: [facility] 07-20-2024 11:33-0400 Diastolic blood pressure 70 mm[Hg] Donovan Kimmie DO Work Phone: [facility] 07-20-2024 11:33-0400 Systolic blood pressure 118 mm[Hg] Donovan Kimmie DO Work Phone: [facility] 09-24-2023 10:29-0400 Body height 170.18 cm [facility] 09-24-2023 10:29-0400 Body mass index (BMI) [Ratio] 30.2 kg/m2 [facility] 09-24-2023 10:29-0400 Body weight 87.54 kg [facility] 09-24-2023 10:29-0400 Diastolic blood pressure 78 mm[Hg] [facility] 09-24-2023 10:29-0400 Heart rate 67 /min [facility] 09-24-2023 10:29-0400 SaO2% (BldA) [Mass fraction] 98 % [facility] 09-24-2023 10:29-0400 Systolic blood pressure 112 mm[Hg] [facility] 08-21-2023 14:43-0400 Body height 161.3 cm Cori Maturu V, DO Work Phone: [facility] Comment on above: verbal 08-21-2023 14:43-0400 Body mass index (BMI) [Ratio] 34.59 kg/m2 Cori Maturu V, DO Work Phone: [facility] 08-21-2023 14:43-0400 Body temperature 98.29 [degF] Cori Maturu V, DO Work Phone: [facility] 08-21-2023 14:43-0400 Body weight 89.99 kg Cori Maturu V, DO Work Phone: [facility] 08-21-2023 14:43-0400 Diastolic blood pressure 76 mm[Hg] Cori Maturu V, DO Work Phone: [facility] 08-21-2023 14:43-0400 Heart rate 88 /min Cori Maturu V, DO Work Phone: [facility] 08-21-2023 14:43-0400 Systolic blood pressure 130 mm[Hg] Cori Loyachristin Meek Work Phone: [facility] 07-07-2023 14:37-0400 Body height 170.18 cm [facility] 07-07-2023 14:37-0400 Body mass index (BMI) [Ratio] 30.8 kg/m2 [facility] 07-07-2023 14:37-0400 Body weight 89.35 kg [facility] 07-07-2023 14:37-0400 Diastolic blood pressure 78 mm[Hg] [facility] 07-07-2023 14:37-0400 Heart rate 81 /min [facility] 07-07-2023 14:37-0400 SaO2% (BldA) [Mass fraction] 98 % [facility] 07-07-2023 14:37-0400 Systolic blood pressure 112 mm[Hg] [facility] 05-28-2023 14:04-0400 Body height 161.3 cm Crystal Raoul LANDSCAPE SPECIALIST-AUDIOLOGY DOCTOR Work Phone: [facility] 05-28-2023 14:04-0400 Body mass index (BMI) [Ratio] 34.09 kg/m2 Crystal Raoul LANDSCAPE SPECIALIST-AUDIOLOGY DOCTOR Work Phone: [facility] 05-28-2023 14:04-0400 Body temperature 98.01 [degF] Crystal Raoul LANDSCAPE SPECIALIST-AUDIOLOGY DOCTOR Work Phone: [facility] 05-28-2023 14:04-0400 Body weight 88.68 kg Crystal Raoul LANDSCAPE SPECIALIST-AUDIOLOGY DOCTOR Work Phone: [facility] 05-28-2023 14:04-0400 Diastolic blood pressure 74 mm[Hg] Crystal Raoul LANDSCAPE SPECIALIST-AUDIOLOGY DOCTOR Work Phone: [facility] 05-28-2023 14:04-0400 Heart rate 92 /min Crystal Raoul LANDSCAPE SPECIALIST-AUDIOLOGY DOCTOR Work Phone: [facility] 05-28-2023 14:04-0400 Systolic blood pressure 122 mm[Hg] Petra Raoul LANDSCAPE SPECIALIST-AUDIOLOGY DOCTOR Work Phone: [facility] 04-22-2023 13:04-0500 Body mass index (BMI) [Ratio] 34 kg/m2 Donovan Kimmie DO Work Phone: [facility] 04-22-2023 13:04-0500 Body weight 88.45 kg Donovan Kimmie DO Work Phone: [facility] 04-22-2023 13:04-0500 Diastolic blood pressure 78 mm[Hg] Donovan Kimmie DO Work Phone: [facility] 04-22-2023 13:04-0500 Systolic blood pressure 120 mm[Hg] Donovan Kimmie DO Work Phone: [facility] 02-14-2023 15:48-0500 Body height 161.3 cm Petra Raoul LANDSCAPE SPECIALIST-AUDIOLOGY DOCTOR Work Phone: [facility] Comment on above: verbal 02-14-2023 15:48-0500 Body mass index (BMI) [Ratio] 34.82 kg/m2 Petra Raoul LANDSCAPE SPECIALIST-AUDIOLOGY DOCTOR Work Phone: [facility] 02-14-2023 15:48-0500 Body temperature 97.9 [degF] Petra De La Cruzley LANDSCAPE SPECIALIST-AUDIOLOGY DOCTOR Work Phone: [facility] 02-14-2023 15:48-0500 Body weight 90.58 kg Petra Raoul LANDSCAPE SPECIALIST-AUDIOLOGY DOCTOR Work Phone: [facility] 02-14-2023 15:48-0500 Diastolic blood pressure 79 mm[Hg] Petra De La Cruzley LANDSCAPE SPECIALIST-AUDIOLOGY DOCTOR Work Phone: [facility] 02-14-2023 15:48-0500 Heart rate 107 /min Petra Raoul LANDSCAPE SPECIALIST-AUDIOLOGY DOCTOR Work Phone: [facility] 02-14-2023 15:48-0500 Systolic blood pressure 133 mm[Hg] Petra Silveira LANDSCAPE SPECIALIST-AUDIOLOGY DOCTOR Work Phone: [facility] 01-15-2023 13:50-0500 Body temperature 97.5 [degF] Andi Smith MD Work Phone: [facility] 01-15-2023 13:50-0500 Diastolic blood pressure 79 mm[Hg] Andi Smith MD Work Phone: [facility] 01-15-2023 13:50-0500 Heart rate 78 /min Andi Smith MD Work Phone: [facility] 01-15-2023 13:50-0500 Respiratory rate 16 /min Andi Smith MD Work Phone: [facility] 01-15-2023 13:50-0500 SaO2% (BldA) [Mass fraction] 98 % Andi Smith MD Work Phone: [facility] 01-15-2023 13:50-0500 Systolic blood pressure 117 mm[Hg] Andi Smith MD Work Phone: [facility] 01-15-2023 07:50-0500 Body height 161.3 cm Andi Smith MD Work Phone: [facility] 01-15-2023 07:50-0500 Body mass index (BMI) [Ratio] 34.37 kg/m2 Andi Smith MD Work Phone: [facility] 01-15-2023 07:50-0500 Body weight 89.4 kg Andi Smith MD Work Phone: [facility] 01-09-2023 08:39-0400 Body height 161.3 cm Esau Gage PAC Work Phone: [facility] 01-09-2023 08:39-0400 Body mass index (BMI) [Ratio] 33.65 kg/m2 Esau Gage PAC Work Phone: [facility] 01-09-2023 08:39-0400 Body temperature 98.49 [degF] Esau Gage PAC Work Phone: [facility] 01-09-2023 08:39-0400 Body weight 87.54 kg Esau Gage PAC Work Phone: [facility] 01-09-2023 08:39-0400 Diastolic blood pressure 80 mm[Hg] Esau Gage PAC Work Phone: [facility] 01-09-2023 08:39-0400 Heart rate 81 /min Esau Gage PAC Work Phone: [facility] 01-09-2023 08:39-0400 Respiratory rate 18 /min Esau Gage PAC Work Phone: [facility] 01-09-2023 08:39-0400 SaO2% (BldA) [Mass fraction] 98 % Esau Gage PAC Work Phone: [facility] 01-09-2023 08:39-0400 Systolic blood pressure 134 mm[Hg] Esau Gage PAC Work Phone: [facility] 12-10-2022 10:53-0400 Body height 160 cm Andi Smith MD Work Phone: [facility] 12-10-2022 10:53-0400 Body mass index (BMI) [Ratio] 34.19 kg/m2 Andi Smith MD Work Phone: [facility] 12-10-2022 10:53-0400 Body weight 87.54 kg Andi Smith MD Work Phone: [facility] 12-10-2022 10:53-0400 Diastolic blood pressure 63 mm[Hg] Andi Smith MD Work Phone: [facility] 12-10-2022 10:53-0400 Heart rate 65 /min Andi Smith MD Work Phone: [facility] 12-10-2022 10:53-0400 Systolic blood pressure 125 mm[Hg] Andi Smith MD Work Phone: [facility] 11-08-2022 16:21-0400 Body height 160 cm Crystal Raoul LANDSCAPE SPECIALIST-AUDIOLOGY DOCTOR Work Phone: [facility] Comment on above: verbal 11-08-2022 16:21-0400 Body mass index (BMI) [Ratio] 34.26 kg/m2 Crystal Raoul LANDSCAPE SPECIALIST-AUDIOLOGY DOCTOR Work Phone: [facility] 11-08-2022 16:21-0400 Body temperature 99.1 [degF] Crystal Raoul LANDSCAPE SPECIALIST-AUDIOLOGY DOCTOR Work Phone: [facility] 11-08-2022 16:21-0400 Body weight 87.73 kg Crystal Raoul LANDSCAPE SPECIALIST-AUDIOLOGY DOCTOR Work Phone: [facility] 11-08-2022 16:21-0400 Diastolic blood pressure 71 mm[Hg] Crystal Raoul LANDSCAPE SPECIALIST-AUDIOLOGY DOCTOR Work Phone: [facility] 11-08-2022 16:21-0400 Heart rate 97 /min Crystal Raoul LANDSCAPE SPECIALIST-AUDIOLOGY DOCTOR Work Phone: [facility] 11-08-2022 16:21-0400 Systolic blood pressure 116 mm[Hg] Crystal Raoul LANDSCAPE SPECIALIST-AUDIOLOGY DOCTOR Work Phone: [facility] 07-04-2021 09:38-0400 Body height 161.3 cm Crystal Raoul LANDSCAPE SPECIALIST-AUDIOLOGY DOCTOR Work Phone: [facility] Comment on above: verbal 07-04-2021 09:38-0400 Body mass index (BMI) [Ratio] 36.23 kg/m2 Crystal Raoul LANDSCAPE SPECIALIST-AUDIOLOGY DOCTOR Work Phone: [facility] 07-04-2021 09:38-0400 Body temperature 98.71 [degF] Petra Silveira LANDSCAPE SPECIALIST-AUDIOLOGY DOCTOR Work Phone: [facility] 07-04-2021 09:38-0400 Body weight 94.26 kg Petra Silveira LANDSCAPE SPECIALIST-AUDIOLOGY DOCTOR Work Phone: [facility] 07-04-2021 09:38-0400 Diastolic blood pressure 70 mm[Hg] Petra Silveira LANDSCAPE SPECIALIST-AUDIOLOGY DOCTOR Work Phone: [facility] 07-04-2021 09:38-0400 Heart rate 73 /min Petra Silveira LANDSCAPE SPECIALIST-AUDIOLOGY DOCTOR Work Phone: [facility] 07-04-2021 09:38-0400 Systolic blood pressure 119 mm[Hg] Petra Silveira APRN-AUDIOLOGY DOCTOR Work Phone: [facility] Encounters Encounter Date Encounter Type Care Provider Facility Start: 11-11-2024 End: 11-12-2024 Clinisync Result Encounter Donovan Kimmie DO Work Phone: [facility] Unsolicited Start: 11-11-2024 End: 11-12-2024 Clinisync Result Encounter Donovan Kimmie DO Work Phone: [facility] Unsolicited Start: 10-28-2024 End: 10-28-2024 Bamboo flowsheet Donovan Kimmie DO Work Phone: [facility] Start: 10-28-2024 End: 11-01-2024 Bamboo flowsheet [...] Donovan Kimmie DO Work Phone: [facility] Comment on above: Well woman exam with [...] End: 10-01-2024 ambulatory KIT CAICEDO Facility:[facility] Start: 09-20-2024 End: 09-20-2024 E-mail encounter from caregiver [facility] Start: 09-20-2024 End: 09-20-2024 Patient encounter procedure [facility] Comment on above: [facility] Welcome Letter Start: 09-04-2024 End: 09-05-2024 Clinisync [...] Start: 07-20-2024 End: 07-20-2024 ambulatory Donovan Kimmie [facility] Work Phone: Start: 07-20-2024 End: 07-20-2024 Departed Referred Donovan Kimmie DO Work Phone: [facility] Start: 06-28-2024 Non-patient / Non-visit Donovan Kimmie DO [facility] Phone[facility] Work Phone: Start: 06-28-2024 End: 06-30-2024 Clinisync Result Encounter Donovan Kimmie DO Work Phone: [facility] Unsolicited Start: 06-28-2024 End: 06-30-2024 Clinisync Result Encounter Donovan Kimmie DO Work Phone: [facility] Unsolicited Start: 06-07-2024 [facility] Start: 05-26-2024 Non-patient / Non-visit Donovan Kimmie DO Work Phone: [facility] Work Phone: Start: 05-26-2024 [...] 11-12-2023 End: 11-13-2023 Clinisync Result Encounter Donovan Burks DO Work Phone: [facility] Unsolicited Start: 11-12-2023 End: 11-13-2023 Clinisync Result Encounter Donovan Lorenzo DO Work Phone: [facility] Unsolicited Start: 09-24-2023 End: 09-24-2023 ambulatory [facility] Work Phone: Start: 09-24-2023 End: 09-24-2023 Patient encounter procedure [facility] Work Phone: Start: 09-11-2023 Non-patient / Non-visit [facility] Work Phone: Start: 08-21-2023 End: 08-21-2023 Office outpatient visit 25 minutes Cori Dennis DO Work Phone: [facility] 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); Anxiety disorder, unspecified type Start: 08-21-2023 ambulatory [facility] Facility: [facility] Start: 08-08-2023 Non-patient / Non-visit [facility] Work Phone: Start: 07-09-2023 Non-patient / Non-visit [facility] Work Phone: Start: 07-07-2023 End: 07-07-2023 ambulatory [facility] Work Phone: Start: 07-07-2023 End: 07-07-2023 Patient encounter procedure [facility] Work Phone: Start: 06-27-2023 Non-patient / Non-visit [facility] Work Phone: Start: 06-08-2023 Non-patient / Non-visit [facility] Work Phone: Start: 05-28-2023 End: 05-28-2023 Office outpatient visit 25 minutes Petra Gordillo Raoul LANDSCAPE SPECIALIST-AUDIOLOGY DOCTOR Work Phone: [facility] [place] 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); Anxiety disorder, unspecified type Start: 05-09-2023 [facility] Work Phone: Start: 04-22-2023 End: 04-22-2023 ambulatory DONOVAN KIMMIE Not Available Start: 04-22-2023 End: 04-22-2023 Office outpatient visit 15 minutes Donovan Lorenzo DO Work Phone: [facility] Comment on above: Encounter for fertil ity planning Start: 02-14-2023 End: 02-14-2023 Office outpatient visit 25 minutes Petra Gordillo Raoul LANDSCAPE SPECIALIST-AUDIOLOGY DOCTOR Work Phone: [facility] [place] 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); 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 Start: 01-15-2023 End: 01-15-2023 Subsequent hospital visit by physician Andi Smith MD Work Phone: [facility] 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 Start: 01-09-2023 End: 01-09-2023 Office consultation new/estab patient 60 min Esau Gage PAC Work Phone: Pre-Procedure Evaluation and Assessment [facility] Comment on above: Preop exam for inter nal medicine (Primary Dx); Jeavons syndrome; 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 Start: 01-09-2023 End: 01-09-2023 Patient encounter status Esau Gage PAC Work Phone: [facility] Start: 01-09-2023 End: 01-09-2023 Subsequent hospital visit by physician Andi Smith MD Work Phone: Imaging [facility] Comment on above: Arrived Start: 12-10-2022 End: 12-10-2022 Office outpatient new 45 minutes Andi Smith MD Work Phone: [facility] 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) Start: 11-08-2022 End: 11-08-2022 Office outpatient visit 40 minutes Petra Duy Silveira LANDSCAPE SPECIALIST-AUDIOLOGY DOCTOR Work Phone: Neurology [facility] Comment on above: Jeavons [...] 07-04-2021 Office outpatient visit 25 minutes Petra Duy Silveira LANDSCAPE SPECIALIST-AUDIOLOGY DOCTOR Work Phone: Neurology [facility] Comment on above: Generalized nonconvu lsive epilepsy (Primary Dx) Start: 06-24-2018 Encounter for gynecological examination (general) (routine) without abnormal findings NA NONE PER PATIENT [facility] Start: 06-24-2018 End: 06-24-2018 Patient encounter procedure GERRADO WARD Facility:[facility] Start: 05-25-2018 End: 05-25-2018 Patient encounter procedure . NONE PER PATIENT Facility:[facility] Start: 05-13-2018 End: 05-13-2018 Patient encounter procedure . NONE PER PATIENT Facility:[facility] Start: 03-23-2018 End: 03-24-2018 Patient encounter procedure [facility] Start: 03-20-2018 End: 03-21-2018 Patient encounter procedure [facility] Procedures Date Procedure Procedure Detail Performing Clinician Start: 11-11-2024 ALL PROGESTERONE Donovan Burks DO Work Phone: Start: 10-28-2024 IGP,APTIMA HPV,AGE GDLN Donovan Kimmie [...] Start: 01-09-2023 Urine test visual color cmprsn charmaine Cifuentes Ayad Gage PAC Work Phone: Start: 02-18-2019 Blood count hematocrit Comment on above: Performed By: #### C D #### [facility], [address] [place] [id number] Start: 03-23-2018 PLATELET FUNCTION TEST JAMIL LANGLEYSYEDA Plan of Treatment Date Care Activity Detail Author Start: 11-03-2025 End: 11-03-2025 Patient encounter procedure 11/03/2025 9:00 AM EDT Procedure Visit [facility] [address] [place] [phone] Donovan Burks DO [address] [place] [address] [facility] Start: 11-08-2024 Influenza vaccination Influenza Vaccine (#1) [facility] Start: 10-28-2024 End: 10-28-2024 Patient encounter procedure [facility] Comment on above: Arrived Start: 10-01-2024 End: 10-01-2024 Patient encounter procedure 10/01/2024 10:00 AM EDT Office Visit [facility] [address] [place] [address] Kit Caicedo MD [address] [place], [place] [id number] Donovan Burks's office referring the patient to [...] EDT Office Visit [facility] [address] [place] [address] Donovan Burks DO [address] [place] [address] [facility] Start: 07-20-[address] [facility] Start: 01-22-2024 End: 01-22-2024 Patient encounter procedure 01/22/2024 9:15 AM EST Office Visit Neurology [facility] [address] [place] [phone] Jeannie Meek Cori, DO [address] [place] [address] Neurology [facility] Start: 11-28-2023 End: 11-28-2023 Patient encounter procedure 11/28/2023 10:20 AM EDT Office Visit [facility] [address] [place], [place] [id number] Petra Silveira, LANDSCAPE SPECIALIST-AUDIOLOGY DOCTOR [address] [place] [address] [facility] [place] Start: 11-09-2023 COVID-19 VACCINE ( season) COVID-19 VACCINE ( season) [facility] Start: 11-09-2023 Covid-19 Vaccine ( season) Covid-19 Vaccine ( season) [facility] Start: 11-09-2023 Influenza vaccination [facility] Start: 08-21-2023 End: 08-21-2023 Patient encounter procedure 08/21/2023 2:45 PM EDT Office Visit Neurology [facility] [address] [place] [phone] Matefrainu Fantasma Cori, DO [address] [place], [place] [phone] Neurology [facility] Start: 05-28-2023 End: 05-28-2023 Patient encounter procedure 05/28/2023 2:00 PM EDT Office Visit Neurology [facility] [address] [place] [address] Petra Silveira, LANDSCAPE SPECIALIST-AUDIOLOGY DOCTOR [address] [place] [address] Neurology [facility] Start: 02-14-2023 End: 02-14-2023 Patient encounter procedure [facility] Start: 01-15-2023 End: 01-15-2023 Admission to same day surgery center 01/15/2023 9:40 AM EST - 01/15/2023 11:50 AM EST Surgery [facility] [address] [place] [address] Andi Smith MD [address] [place] [address] INSERTION REPLACEMENT NEUROSTIMULATOR GENERATOR CRANIAL/INTRACRANIAL [facility] Comment on above: INSERTION REPLACEMENT NEUROSTIMULATOR GE NERATOR CRANIAL/INTRACRANIAL Start: 01-15-2023 End: 01-15-2023 Insj/rplcmt cranial neurostim pulse generator INSERTION REPLACEMENT NEUROSTIMULATOR GENERATOR CRANIAL/INTRACRANIAL Jeavons syndrome 01/15/2023 9:40 AM EST [facility] Start: 01-15-2023 Subsequent hospital visit by physician 01/15/2023 9:40 AM EST Hospital Encounter [facility] [address] [place] [address] Andi Smith MD [address] [place] [phone] Jeavons syndrome [facility] 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 Start: 12-10-2022 End: 12-11-2023 Radiographic imaging procedure XR STIMULATOR/INTRATHECAL PUMP Imaging Routine Jeavons syndrome Expected: 12/10/2022, Expires: 12/11/2023 [facility] Comment on above: Expected: 12/10/2022, Expires: Start: 12-10-2022 End: 12-10-2022 Patient encounter procedure 12/10/2022 11:30 AM EDT Office Visit [facility] [address] [place] [id number] Andi Smith MD [address] [facility] [place] [phone] [facility] Start: 11-08-2022 COVID-19 VACCINE ( season) COVID-19 VACCINE ( season) [facility] Start: 11-08-2022 Influenza vaccination INFLUENZA VACCINE (#1) [facility] Start: 01-04-2022 End: 01-04-2022 Patient encounter procedure 01/04/2022 Office Visit Neurology Cori Dia, DO [address] [place] [address] Neurology [facility] Start: 11-08-2021 Influenza vaccination INFLUENZA VACCINE (Season Ended) [facility] Start: 10-10-2021 End: 10-10-2021 Telemedicine consultation with patient 10/10/2021 Telemedicine Neurology Petra Silveira, LANDSCAPE SPECIALIST-AUDIOLOGY DOCTOR [address] [place] [phone] Neurology [facility] Start: 08-15-2021 End: 08-15-2021 Telemedicine consultation with patient 08/15/2021 Telemedicine Neurology Petra Silveira, LANDSCAPE SPECIALIST-AUDIOLOGY DOCTOR [address] [place] [phone] Neurology [facility] Start: 2013 Screening for malignant neoplasm of cervix [facility] Start: 07-15-2011 Hepatitis B vaccination HEP B VACCINE (1 of 3 - 19+ 3-dose series) [facility] Start: 07-15-2011 Hepatitis B Vaccine (1 of 3 - 19+ 3-dose series) Hepatitis B Vaccine (1 of 3 - 19+ 3-dose series) [facility] Start: 07-15-2011 Third diphtheria, tetanus and acellular pertussis (DTaP) vaccination TDAP (ADULT) [facility] Start: 07-15-2011 Urine microalbumin profile DTaP,Tdap,Td Vaccine (1 - Tdap) [facility] Start: 2010 Anxiety Screening Anxiety Screening [facility] Start: 2010 Depression Screening Depression Screening [facility] Start: 2010 Hepatitis C screening Hepatitis C Screening [facility] Start: 2010 HIV screening HIV Screening [facility] Start: 2010 Tetanus vaccination TETANUS [facility] Start: 07-15-2007 HIV screening HIV SCREENING DISCUSSION [facility] Start: 1997 COVID-19 VACCINE (1) COVID-19 VACCINE (1) [facility] Start: 01-14-1993 COVID-19 VACCINE (#1) COVID-19 VACCINE (#1) [facility] Start: 1992 Hepatitis B vaccination HEP B VACCINE (1 of 3 - 3-dose series) [facility] Start: 1992 Hepatitis C antibody, confirmatory test HEPATITIS C VIRUS SCREENING [facility] Start: 1992 Hepatitis C screening HEPATITIS C VIRUS SCREENING [facility] Start: 1992 Tetanus vaccination TETANUS [facility] Cytology Cervical or vaginal smear or scraping study Pap Smear Pathology and Cytology Routine Well woman exam with routine gynecological exam Ordered: 10/28/2024 [facility] [employer] Work Phone: Comment on above: Ordered: 10/28/2024 Ecg routine ecg w/le ast 12 lds w/i&r [place] ELECTROCARDIOGRAM, COMPLETE [place] - OFFICE PERFORMED Routine 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 Ordered: 01/09/2023 [facility] Comment on above: Ordered: 01/09/2023 Elec horace implt npgt phys/qhp w/o programming [place] ELEC HORACE IMPLT NPGT PHYS/QHP W/O PROGRAMMING [place] Charge Routine Jeavons syndrome Ordered: 09/09/2023 [facility] Comment on above: Ordered: 09/09/2023 Elec horace implt smpl cn npgt prgrmg [place] ELEC HORACE IMPLT SMPL CN NPGT PRGRMG [place] Charge Routine Jeavons syndrome Ordered: 11/14/2022 [facility] Comment on above: Ordered: 11/14/2022 Elec horace implt smpl cn npgt prgrmg [place] ELEC HORACE IMPLT SMPL CN NPGT PRGRMG [place] Charge Routine 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 Ordered: 03/12/2023 [facility] Comment on above: Ordered: 03/12/2023 Elec horace implt smpl cn npgt prgrmg [place] ELEC HORACE IMPLT SMPL CN NPGT PRGRMG [place] Charge Routine Jeavons syndrome Ordered: 06/21/2023 [facility] Comment on above: Ordered: 06/21/2023 Human papilloma viru s DNA [Presence] in Unspecified specimen by Probe with amplification HPV DNA probe, amplified Microbiology Routine Well woman exam with routine gynecological exam Ordered: 10/28/2024 [facility] Comment on above: Ordered: 10/28/2024 Insj/rplcmt cranial neurostim pulse generator INSERTION REPLACEMENT NEUROSTIMULATOR GENERATOR CRANIAL/INTRACRANIAL Jeavons syndrome [facility] Noninvasive ear/puls e oximetry single deter [place] NONINVASV OXYGEN SATUR; SINGLE [place] - OFFICE PERFORMED Routine 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 Ordered: 01/09/2023 [facility] Comment on above: Ordered: 01/09/2023 Immunizations Immunization Date Immunization Notes Care Provider Lee shelton 01-04-2014 influenza, seasonal, injectable, preservative free Andi Smith MD Work Phone: [facility] 01-04-2014 influenza virus vaccine, unspecified formulation Petra MORELOS Work Phone: [facility] Payers Date Payer Category Payer Unknown [id number] 2021 Medicaid [id number] 2021 Private Health Insurance [facility] MEDICAID Member Subscriber Plan / Payer (Effective 2021-Present) Name: Rowena Guadalupe Relation to Subscriber: Self Name: Rowena Guadalupe Payer ID: Not on file Group ID: [id number] Type: Not on file Address: [place] [id number] 2016 Unknown [id number] 2016 Self-pay 2014 Unknown [id number] 1992 Unknown [id number] 2.16840.1.414536.3.579.2. 173 1992 Unknown [id number] 2.840.1.939443.3.579.2. 173 1992 Unknown [id number]. 75 1992 Unknown [id number] 2.16840.1.827664.3.579.2. 754 1992 Unknown [id number] 2.16840.1.193461.3.579.2. 754 1992 Unknown [id number] 216840.1.490912.3.579.2. 754 1992 Unknown [id number] 2.16.840.1.882252.3.579.2. 593 1992 Unknown [id number] 2.16.840.1.855620.3.579.2. 593 1992 Unknown [id number] 2.16.840.1.626319.3.579.2. 593 1992 Unknown [id number] 2.16.840.1.448367.3.579.2. 593 1992 Unknown [id number] 2.16.840.1.521225.3.579.2. 593 1992 Unknown [id number] 2.16.840.1.417833.3.579.2. 1259 1992 Unknown [id number] 2.16.840.1.713265.3.579.2. 594 1992 Unknown [id number] 2.16.840.1.714913.3.579.2. 594 1992 Unknown [id number] 2.16.840.1.824124.3.579.2. 1259 1992 Unknown [id number] 2.16.840.1.752790.3.579.2. 1259 1959 Unknown [id number] 1959 Unknown [id number] Unknown [id number] 2.16.840.1.114895.3.579.2. 531 Social History Date Type Detail Facility Start: 10-28-2019 End: 09-11-2022 Tobacco smoking status OHIS Never smoked tobacco [facility] Start: 10-28-2019 End: 09-11-2022 Tobacco use and exposure Smokeless tobacco non-user [facility] Start: 10-28-2019 Alcohol intake Current drinker of alcohol (finding) [facility] Start: 10-28-2019 History SDOH Alcohol Frequency 2 [facility] Start: 10-28-2019 History SDOH Alcohol Comment rare wine [facility] Start: 10-28-2019 Education 17 [facility] Start: 1990 Sex Assigned At Not on file [facility] Start: 11-08-2022 End: 09-09-2023 Alcohol intake Ex-drinker (finding) [facility] Start: 10-28-2019 End: 07-20-2024 History of Social function [facility] Start: 10-28-2019 End: 07-20-2024 Alcohol Use Disorder Identification Test - Consumption [AUDIT-C] [facility] How often to you hav e a drink containing alcohol? Monthly or less [facility] Average Number of Drinks Not on file [facility] Start: 10-29-2019 Gender identity Identifies as female gender (finding) [facility] Start: 10-29-2019 Sexual orientation Heterosexual (finding) [facility] Start: 02-14-2023 Tobacco Comment Never [facility] Start: 02-14-2023 Alcohol Comment At most one or two drinks a month. [facility] Start: 04-22-2023 End: 10-28-2024 Alcohol intake Not Asked [facility] Start: 08-07-2022 Alcohol Comment Occasional alcohol use [facility] Start: 1990 Sex Assigned At Female [facility] Start: 07-22-2024 Sex Female (finding) [facility] Tobacco smoking stat [facility] Tobacco smoking consumption unknown [facility] Medical Equipment Procedure Code Equipment Code [...] nursing note reviewed. Exam conducted with a horticulture teacher present. Vitals: Estimated body mass index [...] Donovan Burks DO documented in this encounter [facility] 10-01-2024 Progress note Formatting of t his note is different from the original. [facility] Date: 10/01/2024 Rowena Drake [...] of retrograde ejaculation considered. - Referred to [facility] urologists specializing in male infertility: Dr. Bull, Dr. Yu, or Dr. Arita. - Discussed use of special condom for semen collection available at [facility]. - Advised scheduling a follow-up appointment after urological evaluation to discuss further reproductive management options, including IUI or IVF if necessary. This visit was conducted as a virtual visit via zoom. I have communicated my name and active licensure. The patient's identity and physical location were verified at the time of this visit. Either the patient or their legal administrative representative has been informed of the risks and benefits of -- and alternatives to -- treatment through a remote evaluation and consents to proceed with the evaluation remotely. I spent a total of 20 minutes on the date of the service which included preparing to see the patient, mois-ow-xiqn patient care, completing clinical documentation, counseling and educating the patient/family/caregiver, ordering medications, tests, or procedures, communicating results to the patient/family/caregiver, and care coordination (not separately reported). The patient consented to the use of [employer] Online software for draft documentation of the visit consistent with [facility] s Notice of Privacy Practices. Wilda Yanez MD [facility] 10-01-2024 Consult note Formatting of th is note is different from the original. [facility] Date: 10/01/2024 Rowena Drake [...] of retrograde ejaculation considered. - Referred to [facility] urologists specializing in male infertility: Dr. Bull, Dr. Yu, or Dr. Arita. - Discussed use of special condom for semen collection available at [facility]. - Advised scheduling a follow-up appointment after urological evaluation to discuss further reproductive management options, including IUI or IVF if necessary. This visit was conducted as a virtual visit via zoom. I have communicated my name and active licensure. The patient's identity and physical location were verified at the time of this visit. Either the patient or their legal administrative representative has been informed of the risks and benefits of -- and alternatives to -- treatment through a remote evaluation and consents to proceed with the evaluation remotely. I spent a total of 20 minutes on the date of the service which included preparing to see the patient, mwsk-yj-jlsp patient care, completing clinical documentation, counseling and educating the patient/family/caregiver, ordering medications, tests, or procedures, communicating results to the patient/family/caregiver, and care coordination (not separately reported). The patient consented to the use of [employer] Online software for draft documentation of the visit consistent with [facility] s Notice of Privacy Practices. Wilda Yanez MD documented in this encounter [facility] 10-01-2024 Plan of care note Rowena [...] of retrograde ejaculation considered. - Referred to [facility] urologists specializing in male infertility: Dr. Bull, Dr. Yu, or Dr. Duron. - Discussed use of special condom for semen collection available at [facility]. - Advised scheduling a follow-up appointment after urological evaluation to discuss further reproductive management options, including IUI or IVF if necessary. This visit was conducted as a virtual visit via zoom. I have communicated my name and active licensure. The patient's identity and physical location were verified at the time of this visit. Either the patient or their legal administrative representative has been informed of the risks and benefits of -- and alternatives to -- treatment through a remote evaluation and consents to proceed with the evaluation remotely. I spent a total of 20 minutes on the date of the service which included preparing to see the patient, yngo-qf-ljrv patient care, completing clinical documentation, counseling and educating the patient/family/caregiver, ordering medications, tests, or procedures, communicating results to the patient/family/caregiver, and care coordination (not separately reported). The patient consented to the use of Yactraq Online software for draft documentation of the visit consistent with [facility] s Notice of Privacy Practices. [facility] 10-01-2024 Miscellaneous Notes Rowena Drake is [...] of retrograde ejaculation considered. - Referred to [facility] urologists specializing in male infertility: Dr. Bull, Dr. Yu, or Dr. Duron. - Discussed use of special condom for semen collection available at [facility]. - Advised scheduling a follow-up appointment after urological evaluation to discuss further reproductive management options, including IUI or IVF if necessary. This visit was conducted as a virtual visit via zoom. I have communicated my name and active licensure. The patient's identity and physical location were verified at the time of this visit. Either the patient or their legal administrative representative has been informed of the risks and benefits of -- and alternatives to -- treatment through a remote evaluation and consents to proceed with the evaluation remotely. I spent a total of 20 minutes on the date of the service which included preparing to see the patient, gcwq-yw-gjkb patient care, completing clinical documentation, counseling and educating the patient/family/caregiver, ordering medications, tests, or procedures, communicating results to the patient/family/caregiver, and care coordination (not separately reported). The patient consented to the use of Yactraq Online software for draft documentation of the visit consistent with [facility] s Notice of Privacy Practices. documented in this encounter [facility] 10-01-2024 Telephone encounter Note Left message for pt to return call to update fertility screening, partner information, etc. Angella Arellano MA October 01, 2024 11:14 AM [facility] 10-01-2024 Miscellaneous Notes Left message for pt to return call to update fertility screening, partner information, etc. Angella Arellano MA October 01, 2024 11:14 AM documented in this encounter [facility] 07-20-2024 History of Present illness Narrative [...] nursing note reviewed. Exam conducted with a horticulture teacher present. Vitals: Estimated body mass index [...] after allowing sufficient time to take affect. cherry picker operator and scissors used to remove affected area. Placed in formalin and sent to pathology. Post-procedure instructions given. Follow Up: As needed Documented by Rhonda Dubois LPN on behalf of: Donovan Burks DO documented in this encounter [facility] 11-19-2023 Telephone encounter Note Images from the original note were not included. Medication Access Team coordinated the following [facility] Clinics: MS/Neurology Prior Authorization Per the patient's insurance provider, [employer], the prior authorization for LAMOTRIGINE 300 (on-label) was approved. Authorization number: [id number] Authorization start date: 11/14/23 Authorization end date: 11/12/24 Non-Specialty Prescriptions: 1, 20-25 min Namrata Tony [facility] 11-19-2023 Miscellaneous Notes Images from the original note were not included. Medication Access Team coordinated the following [facility] PAC Clinics: MS/Neurology Prior Authorization Per the patient's insurance provider, [employer], the prior authorization for LAMOTRIGINE 300 (on-label) was approved. Authorization number: [id number] Authorization start date: 11/14/23 Authorization end date: 11/12/24 Non-Specialty Prescriptions: 1, 20-25 min Namrata Tony documented in this encounter [facility] 11-14-2023 Telephone encounter Note Images from the original note were not included. *Documentation only- I did not speak with the patient. Received fax from [employer] stating PA is needed for Lamotrigine ER 300 mg tablets. Current auth expires 11/25/2023. [facility] 11-14-2023 Miscellaneous Notes Images from the original note were not included. *Documentation only- I did not speak with the patient. Received fax from [employer] stating PA is needed for Lamotrigine ER 300 mg tablets. Current auth expires 11/25/2023. documented in this encounter [facility] 08-21-2023 History of Present illness Narrative Reason [...] 24 hours. 2 Each 0 Prenat MV-Min w/Zu-Yeannr-SZT ( COMPLETE PO) Take 1 tablet by [...] AW Model ID Sentiva N1000 Serial # [id number] Implanted 03/27/2018 Communication Output Current Status Current [...] of questions or concerns. Cori Dennis DO Education Analyst Department of Neurology, Epilepsy Division [facility] documented in this encounter [facility] 08-21-2023 Instructions Cori Meek DO - 08/21/2023 2:45 PM EDT Increase Lamictal as follows: Week 1: Lamictal XR 300 mg + 50 mg tablet Week 2 and on: Lamictal XR 300 mg + 100 mg tablet Apply for the [employer] voucher: https://www.epilepsy.com/ride-share Increase Sertraline to 100 mg daily + 50 mg daily Continue with Folic acid 1 mg + vitamin Please follow-up with me in the clinic in 4 months. If you have any questions or concerns prior to the next visit, you can call the Neurology clinic at [phone]. If you have access through [employer], you can contact me through that system as well. documented in this encounter [facility] 05-28-2023 History of Present illness Narrative Images from the original note were not included. Rowena Drake was seen in the Comprehensive Ep[facility]psy Center at [facility] on 05/28/2023. She is here [...] 24 hours. 2 Each 0 Prenat MV-Min w/Uo-Dzieeu-DZW ( COMPLETE PO) Take 1 tablet by [...] your epilepsy that we offer at the [facility]? Yes If you have tried 2 or 3 anti-seizure medications and your seizures are still not controlled, are you interested in learning about surgical options for your epilepsy that we can offer at the [facility]? No Neurological Disorders Depression Inventory for [...] 01/15/2023 Model Number 1000 1000 Serial Number [id number] Output Current (mA) 2.5 mA 2.25 mA [...] and continue maintenance dose of clobazam - [place] ELEC HORACE IMPLT SMPL CN NPGT [...] 45 tablet; Refill: 2 Encouraged use of Dream[employer]ize to send messages to provider as needed for questions and concerns or can call our clinic @ [phone]. She will return in [address] Dennis or sooner if clinically indicated. Signed, Petra Silveira MSN, LANDSCAPE SPECIALIST-AUDIOLOGY DOCTOR [facility] Department of Neurology - Epilepsy Division [address] [place] [address] - 7th floor [place] [address] Pager: [phone] I spent a total of 35 minutes on the date of the service which included preparing to see the patient, pgjk-ft-mkzb patient care, completing clinical documentation, performing a medically appropriate examination and counseling and educating the patient/family/caregiver. Note to patient: The 21st Century Cures Act makes medical notes like these available to patients in the interest of transparency. However, be advised this is a medical document. It is intended as bmqh-ur-rzpj communication. It is written in medical language and may contain abbreviations or verbiage that are unfamiliar. It may appear blunt or direct. Medical documents are intended to carry relevant information, facts as evident, and the clinical opinion of the practitioner. documented in this encounter [facility] 04-22-2023 History of Present illness Narrative [...] nursing note reviewed. Exam conducted with a horticulture teacher present. Vitals: Estimated body mass index [...] Donovan Burks DO documented in this encounter [facility] 02-14-2023 History of Present illness Narrative Images from the original note were not included. Rowena Byers was seen in the Comprehensive Ep[facility]psy Center at [facility] on 02/14/2023. She is here today for a follow-up in clinic accompanied by her , Pedro. She was last seen on 04/19/[address] Cori Dennis DO and with nc 11/08/2022. History of Present Illness INTERVAL HISTORY: [...] 24 hours. 2 Each 0 Prenat MV-Min w/Ez-Btcnim-KFB ( COMPLETE PO) Take 1 tablet by [...] ID ABW Model ID SenTiva Serial # [id number] Implanted 01/15/2023 Communication OK Output Current Status [...] VNS Simple Reprogramming (1-3 changes) CPT code 50873 Assessment and Plan Assessment: Rowena is a [...] longer than 5 minutes. Encouraged use of [employer] to send messages to provider as needed for questions and concerns or can call our clinic @ [phone]. She will return in 3 months with and [address] Dennis or sooner if clinically indicated. Signed, Petra Silveira MSN, LANDSCAPE SPECIALIST-AUDIOLOGY DOCTOR [facility] Department of Neurology - Epilepsy Division [address] [place] [address] - 7th floor [place] [address] Pager: [phone] I spent a total of 34 minutes on the date of the service which included preparing to see the patient, pixb-jx-csqz patient care, completing clinical documentation, performing a medically appropriate examination and counseling and educating the patient/family/caregiver. Note to patient: The Century Cures Act makes medical notes like these available to patients in the interest of transparency. However, be advised this is a medical document. It is intended as rcyw-tf-teiu communication. It is written in medical language and may contain abbreviations or verbiage that are unfamiliar. It may appear blunt or direct. Medical documents are intended to carry relevant information, facts as evident, and the clinical opinion of the practitioner. documented in this encounter [facility] 02-14-2023 Instructions JETHRO Juan - 02/14/2023 [...] after regular office hours, a neurologist is donor services team leader for urgent issues. Call the neurology office number ([phone]) to reach the neurologist donor services team leader if you are continuing to experience many more seizures than usual despite use of your rescue medications. Please try to remember that the neurologist donor services team leader may not have access to your complete medical record and may not be as familiar with your history. If you have access through [employer], you can contact us through that system as well. If you have documents that need completed or sent to our clinic, please have them faxed to [phone]. It is always best to call during [...] the refill is ready for you to cherry picker operator. Seizure First Aid Training Can Be Found Here (it's free!): [email or web address]://learn.epilepsy.com/courses/ dmfymvs-mfonx-alo-cert-ondemand documented in this encounter [facility] 01-15-2023 Miscellaneous Notes [facility] OPERATIVE REPORT PATIENT NAME: Rowena Byers PROCEDURE DATE: 01/15/2023 PREOPERATIVE DIAGNOSIS: Drug-resistant epilepsy, Depleted pulse generator. POSTOPERATIVE DIAGNOSIS: Same. PROCEDURES: Replacement of left programmable pulse generator ([employer] Sentiva). SURGEON: Andi Smiht MD. ASSISTANTS: Colt Meadows MD. ANESTHESIA: General. [...] The IPG had been interrogated by the administrative representative from the vendor. The upper chest [...] the new IPG and secured with the hand gluer and slicer's screwdriver. At this point, a senior systems programmer was used to interrogate the new [...] VSS, anesthesia sign out completed. 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 SURGEON Surgeon(s) and Role: * Andi Smith MD - Primary ANESTHESIOLOGIST Anesthesiologist: Cydney Zavala MD CHIEF MECHANICAL OFFICER: Geraldo Marion APRN-CHIEF MECHANICAL OFFICER Student Nurse Liability Claims Manager: Chiquita Polanco SURGICAL STAFF Grinder And Plater: Miki Gary RN; Linda Gilmore RN Relief Grinder And Plater: Janet Carreon RN Scrub Person: Marielle Ibrahim Resident Assisting: Colt Meadows MD COMPLICATIONS None ESTIMATED BLOOD LOSS Minimal SPECIMENS No specimen sent * No specimens in log * Colt Meadows MD January 15, 2023 11:03 AM documented in this encounter [facility] 01-15-2023 Nurse Note Pt and family were given AVS and verbalize understanding of instructions. Pt discharged via wheelchair. [facility] 01-15-2023 Surgery Postoperative evaluation and management note [facility] OPERATIVE REPORT PATIENT NAME: Rowena Byers [...] The IPG had been interrogated by the administrative representative from the vendor. The upper chest [...] the new IPG and secured with the hand gluer and slicer's screwdriver. At this point, a senior systems programmer was used to interrogate the new [...] entire procedure and performed the critical portions. [facility] 01-15-2023 Nurse Note Report called to RN SPR, VSS, anesthesia sign out completed. 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 SURGEON Surgeon(s) and Role: * Andi Smith MD - Primary ANESTHESIOLOGIST Anesthesiologist: Cydney Zavala MD CHIEF MECHANICAL OFFICER: Geraldo Marion APRN-CHIEF MECHANICAL OFFICER Student Nurse Liability Claims Manager: Chiquita Polanco SURGICAL STAFF Grinder And Plater: Miki Gary RN; Linda Gilmore RN Relief Grinder And Plater: Janet Carreon RN Scrub Person: Marielle Ibrahim Resident Assisting: Colt Meadows MD COMPLICATIONS None ESTIMATED BLOOD LOSS Minimal SPECIMENS No specimen sent * No specimens in log * Colt Meadows MD January 15, 2023 11:03 AM [facility] 01-15-2023 Nurse Surgical operation note Report given to REINFORCING STEEL WORKER. Patient transported to PACU with anesthesia on a cart and oxygen. [facility] 01-15-2023 Nurse Note Report given to REINFORCING STEEL WORKER. Patient transported to PACU with anesthesia on a cart and oxygen. documented in this encounter [facility] 01-15-2023 Hospital Discharge instructions Colt Meadows MD - 01/15/2023 9:30 AM EST Discharge Instructions for DBS Surgery & Battery Placement Surgery Here are some general guidelines to assist you in your recovery at home. Please do not hesitate to call us with any questions or concerns you may have. We can be reached at [phone]. Your appointmentS will be in the Neuromodulation clinic in [address] Incision Care: If you have a [...] 101 degrees F documented in this encounter [facility] 01-15-2023 History and physical note PERIOPERATIVE [...] and physical update was completed by Andi Smiht MD, 01/15/2023, 9:08 AM. [facility] Work Phone: 01-15-2023 History and physical [...] 01/15/2023, 9:08 AM. documented in this encounter [facility] 01-09-2023 History and physical note Images from the original note were not included. History of Present Illness Ms. Byers is a 32 y.o. female is being evaluated in [facility] due to her medical condition [...] 10 mg in 24 hours. Prenat MV-Min w/Sw-Askogh-EGR ( COMPLETE PO) Take 1 tablet by [...] patient has been medically OPTIMIZED FOR SURGERY. 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 Prenat MV-Min w/Qw-Bnsjjp-TJS ( COMPLETE PO) Take 1 tablet by [...] patient has been medically OPTIMIZED FOR SURGERY. [facility] Perioperative Clinic [facility] [address] [place] [address] Review of Systems (OSUROS)Review of Systems Constitutional: [...] PCP - General (Internal Medicine) Petra Silveira APRN-AUDIOLOGY DOCTOR (Certified Nurse Practitioner) Family History Problem Relation Age of Onset Prostate Cancer Maternal Grandfather Mental Illness Maternal Grandmother Depression , Anxiety Prostate Cancer Paternal Grandfather Cancer- Other Paternal Grandfather Diabetes Paternal Uncle Social History Socioeconomic History Marital status: Highest education level: Bachelor's degree (e.g., BA, AB, BS) 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 She takes Lamictal for treatment 4. Backwinder--patient states she is actively trying to get . Will check hCG today and on day of surgery. Patient understands that surgery may be cancelled if she is . Anesthesia Assessment:No contraindications to planned surgery. Pending review of the patient's labs.ECG reviewed. Whitney Ward MD [facility] documented in this encounter [facility] 01-09-2023 Instructions Robyn Dempsey LPN [...] take Herbal Medication (including multi-vitamin, fish oil ([place]-3), garlic, Glucosamine - Chondroitin ,gingko, ginseng, Vitamin [...] site one week prior to surgery. - [place] your teeth and rinse your mouth the morning of surgery. - Do NOT bring your dentures or partials with you into surgery. They may be lost. Give them to someone to bring to you after surgery. If you are unable to complete your scheduled testing or appointments made by [facility] please contact [facility] at [phone]. Failure to do so could delay or [...] surgery, please notify our team immediately at [phone]. - If you have Sleep apnea and have a CPAP or BIPAP, then bring your CPAP mask and machine with you to the hospital. Please contact Medical Information Management Department for all records requests. [phone] Puma/mateo documented in this encounter [facility] 12-10-2022 History of Present illness Narrative [...] that were dedicated to clinical evaluation, including ztoz-pc-aydg time; counseling and education; chart completion; reviewing [...] aspirin, excedrin, plavix), multivitamins/minerals/herbal supplements (such as [place]-3, garlic, Glucosamine - Chondroitin, gingko, ginseng, Vitamin E, fish oil, etc), non-steroidal anti-inflammatory medications (NSAIDs) (such as Ibuprofen/Motrin/Advil, Aleve, Celebrex) for 10 days prior to surgery, as these are blood thinners. She was advised that Tylenol is the preferred option for pain. She stated understanding. documented in this encounter [facility] 11-08-2022 History of Present illness Narrative Images from the original note were not included. Rowena Byers was seen in the [facility] at [facility] on 11/08/2022. She is here [...] ID AW Model ID SenTiva Serial # [id number] Implanted 03/27/2018 Communication OK Output Current Status [...] VNS Simple Reprogramming (1-3 changes) CPT code 40777 Assessment and Plan Assessment: Rowena is a [...] would like to wait Encouraged use of Dreamitize to send messages to provider as needed for questions and concerns or can call our clinic @ [phone]. She will return in 2 months or sooner if clinically indicated. Signed, Petra Silveira MSN, LANDSCAPE SPECIALIST-AUDIOLOGY DOCTOR [facility] Department of Neurology - Epilepsy Division [address] [place] [address] - 7th floor [place] [address] Pager: [phone] I spent a total of 46 minutes on the date of the service which included preparing to see the patient, derk-je-jeqj patient care, completing clinical documentation, performing a medically appropriate examination and counseling and educating the patient/family/caregiver. Note to patient: The 21st Century Cures Act makes medical notes like these available to patients in the interest of transparency. However, be advised this is a medical document. It is intended as lmii-hc-imrw communication. It is written in medical language and may contain abbreviations or verbiage that are unfamiliar. It may appear blunt or direct. Medical documents are intended to carry relevant information, facts as evident, and the clinical opinion of the practitioner. documented in this encounter [facility] 11-08-2022 Instructions JETHRO Juan - [...] ID AW Model ID SenTiva Serial # [id number] Implanted 03/27/2018 Communication OK Output Current Status OK Current Delivered 1.75 Lead Impedance OK Impedance Value 2903 IFI NO Average # of Inhibited Auto stimulations Daily Avg. Stim % Per Day %Therapy Normal 843.56 AutoStim 26.89 Magnet 0.04 Total 870.50 documented in this encounter [facility] 07-04-2021 Instructions JETHRO Juan - 07/04/2021 [...] weeks with Petra documented in this encounter [facility] 07-04-2021 History of Present illness Narrative Images from the original note were not included. Rowena Byers was seen in the [facility] at [facility] on 07/04/2021. 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 Encouraged use of Dreamitize to send messages to provider as needed for questions and concerns or can call our clinic @ [phone]. She will return in 6 weeks and 3 months with me and [address] Dennis or sooner if clinically indicated. Signed, Petra Silveira MSN, LANDSCAPE SPECIALIST-AUDIOLOGY DOCTOR [facility] Department of Neurology - Epilepsy Division [address] [place] [address] - 7th floor [place] [address] Pager: [phone] Time to complete visit: I spent approximately 38 minutes reviewing the chart prior to the appointment, in face to face counseling with the patient, and with documentation after the visit. 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 [facility] Diagnosis Jeavons syndrome- Primary [facility] Diagnosis Jeavons syndrome- Primary [facility] Diagnosis Jeavons syndrome Jeavons syndrome [facility] Diagnosis Preop exam for internal medicine- Primary Other specified pre-operative examination 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 Other postprocedural status Jeavons syndrome [facility] 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 Other postprocedural status [facility] Diagnosis Encounter for fertility planning [facility] Diagnosis Jeavons syndrome- Primary Anxiety disorder, unspecified type [facility] Diagnosis Onset Date Resolution Status Maxillary sinusitis [facility] Work Phone: Evaluation note* Diagnosis Jeavons syndrome- Primary Anxiety disorder, unspecified type [facility] Diagnosis Onset Date Resolution Status Maxillary sinusitis acute Maxillary sinusitis [facility] Work Phone: Evaluation note* Diagnosis PCOS (polycystic ovarian syndrome) Polycystic ovaries Skin tag Unspecified hypertrophic and atrophic condition of skin documented [facility] encounter [facility] HealthcareEvaluation noteNo assessment [facility] Work [facility]* Diagnosis General counseling and advice for procreative management- Primary Other procreative management counseling and advice Polycystic ovarian syndrome Polycystic ovaries [facility] Diagnosis PCOS (polycystic ovarian syndrome) Polycystic ovaries Well woman exam with routine gynecological exam Routine gynecological examination documented in this encounter [facility] for referral (narrative)* Consultation (Routine) - New Request Specialty Diagnoses / Procedures Referred By Rainer ramos Referred To Contact Neurologic Surgery Diagnoses Jeavons syndrome Andi Smith MD [address] [place] [address] Referral ID Status Reason Start Date Expiration Date V isits Requested Visits Authorized [id number] New Request 12/10/2022 01/04/2024 1 1 [facility] Summary Purpose Family History Relationship Condition Age at Onset Recorded Date/T jorge grandparent Malignant neoplasm Unknown Advance Directives Advance Directive Response Recorded Date/ Time Advance Directives No July 06 12:12pm Reason for Referral Specialty Diagnoses / Procedures Referred By Contac t Referred To Contact Diagnoses Generalized nonconvulsive epilepsy RaoulPetra, LANDSCAPE SPECIALIST-AUDIOLOGY DOCTOR [address] [place] [address] Referral ID Status Reason Start Date Expiration Date V isits Requested Visits Authorized [id number] Pending Review 1 1 Specialty Diagnoses / Procedures Referred By Contac t Referred To Contact Procedures DVT/VTE RISK ASSESSMENT Andi Smith MD [address] [place] [address] Referral ID Status Reason Start Date Expiration Date V isits Requested Visits Authorized [id number] New Request 01/15/2023 02/09/2024 1 1 Chief Complaint and Reason for Visit Chief Complaint sinus infection Reason for Visit Maxillary sinusitis Chief Complaint sinus infection sinus infection Reason for Visit Maxillary sinusitis Maxillary sinusitis Chief Complaint Admit Date Unknown July 20, 2024 9:00a m Additional Source Comments INFORMATION SOURCE (unrecogn ized section and content) DATE CREATED AUTHOR 09/03/2017 [facility] DATE CREATED AUTHOR AUTHOR'S ORGANIZ ATION 03/28/2018 [facility] DATE CREATED AUTHOR AUTHOR'S ORGANIZ ATION 07/02/2018 [facility] DATE CREATED AUTHOR AUTHOR'S ORGANIZ ATION 10/02/2019 [facility] DATE CREATED AUTHOR AUTHOR'S ORGANIZ ATION 06/01/2022 [facility] DATE CREATED AUTHOR AUTHOR'S ORGANIZ ATION 04/24/2023 [facility] DATE CREATED AUTHOR AUTHOR'S ORGANIZ ATION 06/07/2024 [facility] DATE CREATED AUTHOR AUTHOR'S ORGANIZ ATION 07/28/2024 [facility] DATE CREATED AUTHOR AUTHOR'S ORGANIZ ATION 10/02/2024 [facility] DATE CREATED AUTHOR AUTHOR'S ORGANIZ ATION 10/30/2024 [facility] EPIC Reason for Visit (unrecogniz ed section and content) Reason Comments Follow-up Reason Comments Follow-up Reason Comments New Patient 32 y.o female here f or consult. Specialty Diagnoses / Procedures Referred By Contac t Referred To Contact Neurologic Surgery Diagnoses Jeavons syndrome S/P placement of VNS (vagus nerve stimulation) device Petra Silveira APRN-AUDIOLOGY DOCTOR [address] [place] [address] Referral ID Status Reason Start Date Expiration Date V isits Requested Visits Authorized [id number] New Request 09/19/2022 10/14/2023 1 1 Reason Comments Preoperative Assessment Specialty Diagnoses / Procedures Referred By Contac t Referred To Contact Neurologic Surgery Diagnoses Jeavons syndrome Andi Smith MD [address] [place] [phone] Referral ID Status Reason Start Date Expiration Date V isits Requested Visits Authorized [id number] New Request 12/10/2022 01/04/2024 1 1 Specialty Diagnoses / Procedures Referred By Contac t 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 [address] [place] [address] Referral ID Status Reason Start Date Expiration Date Visits Re quested Visits Authorized [id number] 1 1 Reason Comments Infertility Reason Onset Date Comments Insurance 11/14/2023 Lamotrigine ER Reason Onset Date Comments Insurance 11/19/2023 Reason Comments Skin Tag Pt present today for a skin tag on right areola. Reason Comments LMTCB Reason Comments Infertility Reason Comments Well Women Visit Care Teams (unrecognized sec tion and content) Fraud Prevention Analyst Relationship Specialty Start Date End Date Tim Stallings DO [address] [place] [phone] PCP - General Internal Medicine 09/19/22 Petra Silveira APRN-AUDIOLOGY DOCTOR [address] [place] [phone] Certified Nurse Practitioner 11/08/22 Fraud Prevention Analyst Relationship Specialty Start Date End Date Tim Stallings [address] [place] [address] PCP - General Internal Medicine 09/19/22 Petra Silveira, LANDSCAPE SPECIALIST-AUDIOLOGY DOCTOR [address] [place] [phone] Certified Nurse Practitioner 11/08/22 Fraud Prevention Analyst Relationship Specialty Start Date End Date Tim Stallings DO [address] [place] [address] PCP - General Internal Medicine 09/19/22 Petra Silveira, LANDSCAPE SPECIALIST-AUDIOLOGY DOCTOR [address] [place] [phone] Certified Nurse Practitioner 11/08/22 Fraud Prevention Analyst Relationship Specialty Start Date End Date HaylieTimDO [address] [place] [address] PCP - General Internal Medicine 09/19/22 Petra Silveira, LANDSCAPE SPECIALIST-AUDIOLOGY DOCTOR [address] [place] [phone] Certified Nurse Practitioner 11/08/22 Fraud Prevention Analyst Relationship Specialty Start Date End Date Haylie TimDO [address] [place] [address] PCP - General Internal Medicine 09/19/22 Petra Silveira, LANDSCAPE SPECIALIST-AUDIOLOGY DOCTOR [address] [phone] Certified Nurse Practitioner 11/08/22 Fraud Prevention Analyst Relationship Specialty Start Date End Date Tim Stallings DO [address] [place] [address] PCP - General Internal Medicine 09/19/22 Petra Silveira, LANDSCAPE SPECIALIST-AUDIOLOGY DOCTOR [address] [place] [phone] Certified Nurse Practitioner 11/08/22 Fraud Prevention Analyst Relationship Specialty Start Date End Date Tim Stallings MD [address] [place] [address] PCP - General Internal Medicine 08/08/22 Fraud Prevention Analyst Relationship Specialty Start Date End Date Tim Stallings DO [address] [place] [address] PCP - General Internal Medicine 09/19/22 Petra Silveira, LANDSCAPE SPECIALIST-AUDIOLOGY DOCTOR [address] [phone] Certified Nurse Practitioner 11/08/22 Team Status: Active [...] July 07, 2023 End: July 07, 2023 NOLBERTO Gaspar Attending Provider Act duncan Start: July 07, 2023 End: July 07, 2023 Fraud Prevention Analyst Relationship Specialty Start Date End Date Tim Stallings DO [address] [place] [address] PCP - General Internal Medicine 09/19/22 Petra Silveira APRN-AUDIOLOGY DOCTOR [address] [phone] Certified Nurse Practitioner 11/08/22 Team [...] September 24, 2023 End: September 24, 2023 NOLBERTO Gaspar Attending Provider Act duncan Start: September 24, 2023 End: September 24, 2023 Fraud Prevention Analyst Relationship Specialty Start Date End Date Tim Stallings DO [address] [place] [address] PCP - General Internal Medicine 09/19/22 Petra Silveira APRN-AUDIOLOGY DOCTOR [address] [phone] Certified Nurse Practitioner 11/08/22 Fraud Prevention Analyst Relationship Specialty Start Date End Date Tim Stallings MD [address] [place] [address] PCP - General Internal Medicine 08/08/22 Fraud Prevention Analyst Relationship Specialty Start Date End Date Tim Stallings MD [address] [facility] [place] [address] PCP - General Internal Medicine 08/08/22 Fraud Prevention Analyst Relationship Specialty Start Date End Date Tim Stallings MD [address] [place] [facility] [address] PCP - General Internal Medicine 08/08/22 Fraud Prevention Analyst Relationship Specialty Start Date End Date Tim Stallings DO [address] [place] [facility] [address] PCP - General Internal Medicine 08/08/22 Fraud Prevention Analyst Relationship Specialty Start Date End Date Tim Stallings DO [address] [place] [facility] [address] PCP - General Internal Medicine 08/08/22 [...] July 20, 2024 End: July 20, 2024 Fraud Prevention Analyst Relationship Specialty Start Date End Date Tim Stallings DO [address] [place] [address] PCP - General Internal Medicine 07/26/24 Donovan Burks DO [address] [place] [address] [place] [address] Referring Volcanology Teacher 07/26/24 Fraud Prevention Analyst Relationship Specialty Start Date End Date Tim Stallings DO [address] [place] [address] PCP - General Internal Medicine 07/26/24 Donovan Burks, DO [address] [place] [address] [place] [address] Referring Volcanology Teacher 07/26/24 Fraud Prevention Analyst Relationship Specialty Start Date End Date Tim Stallings DO [address] [place] [address] PCP - General Internal Medicine 07/26/24 Donovan Burks, DO [address] [place] [address] [place] [address] Referring Volcanology Teacher 07/26/24 Fraud Prevention Analyst Relationship Specialty Start Date End Date Tim Stallings DO [address] [place] [address] PCP - General Internal Medicine 08/08/22 Fraud Prevention Analyst Relationship Specialty Start Date End Date Tim Stallings DO [address] [place] [address] PCP - General Internal Medicine [...] - Comment: mixed 1:1 w/Lido with epi 1:301954) ceFAZolin (ANCEF) 2 g in dextrose 100 mL premix IVPB (COMPLETED) 2 g, Intravenous, Administer over 30 Minutes, BOAT WRAPPER TO PROCEDURE, 1 dose, Starting on Fri01/15/23 at 0758, Until Discontinued, Other, Surgical Prophylaxis, Initiate antibiotic administration 30-60 minutes prior to surgical incision and complete administration prior to surgical incision., Pre-op/Pre-Proc 0955 (Given - Provid er: Geraldo Marion, LANDSCAPE SPECIALIST-CHIEF MECHANICAL OFFICER) lidocaine-epinephrine 2 %-1:572366 injection (CANCELED) NEEDED, Starting on Fri01/15/23 at [...] Order-specific weight), Intravenous, Administer over 1 Hours, BOAT WRAPPER TO PROCEDURE, 1 dose, Starting on Fri01/15/23 [...] or prosecute any alcohol or drug abuse patient.[facility] the event this information is protected by the Federal Confidentiality of Alcohol and Drug Abuse Patient Records regulations: The Federal rules restrict any use of the information to criminally investigate or prosecute any alcohol or drug abuse patient.[facility] HospitalIn the event this information is protected by the Federal Confidentiality of Alcohol and Drug Abuse Patient Records regulations: The Federal rules restrict any use of the information to criminally investigate or prosecute any alcohol or drug abuse patient.[facility] FOR RECORDS PERTAINING TO PATIENTS WHO [...] BE BASED ON THE PRIMARY CLINICAL RECORDS. [facility] [employer] [facility]. provides no warranty or guarantee of the accuracy or completeness of information in this document.
== END 2024-12-15 10:25 | disposition home or self-care (01) ==
LOC: LAB 10:25
PROVIDERS: PCP Internal Medicine; Visit Provider Obstetrics & Gynecology
DX: N97.9 Female infertility, unspecified (principal); N97.0 Female infertility associated with anovulation
CPT/HCPCS: 36415; 84144

== ENCOUNTER 2025-01-18 08:28 | Outpatient (OUT) | payer OTHER, SELFPAY ==
--- OUTSIDE RECORDS SUMMARY | 2025-01-18 08:36 | XMS_ITS | Encounter Summary ---
Author Organization [facility] Address [address] [place] [address] Care Team Providers Care Tag Machine Operator Name Role Phone Tim Rolon DO Primary Care Provider [phone] Petra Silveira IRS AGENT-OIL WELL SERVICES FIELD SUPERVISOR Unavailable [phone] Reason for Visit * ReasonCommentsMedication Refill Encounter Details DateTypeDepartmentCare Team (Latest Contact Info)Qqrbwbbcrcm74/21/2025Refill [facility] [place] [address] [place], [place] [phone] Cori Dia DO [address] [place] [address] Jeavons syndrome Social History Tobacco UseTypesPacks/DayYears UsedDateSmoking Tobacco: NeverSmokeless Tobacco: Never Comments:Never Alcohol UseStandard Drinks/WeekCommentsNot Currently0 (1 standard drink = 0.6 oz pure alcohol)At most one or two drinks a month.AUDIT-CAnswerDate RecordedQ1: How often do you have a drink containing alcohol?Monthly or less10/28/2019Average Number of DrinksNot on file10/28/2019Frequency of Binge DrinkingNot on file 10/28/2019EducationAnswerDate RecordedWhat is the highest level of school you have completed or the highest degree you have received?Bachelor's degree (e.g., BA, AB, BS)10/28/2019CommentsNoSex and Gender InformationValueDate RecordedSex Assigned at BirthNot on fileLegal XyaLpjmmz82/14/2020 3:06 PM EDT Gender FsysztgkAtilda49/21/2020 1:41 AM EDTSexual SqskfmcdeeeIqoqjhcs53/21/2020 1:41 AM EDTOccupationIndustryJob Start DateJob End DateteacherNot on fileNot on fileNot on filedocumented as of this encounter Miscellaneous Notes * Telephone Encounter - Aminata Ramirez - 12/29/2024 9:39 AM EDT Images from the original note were not included. documented in this encounter Plan of Treatment Not on file documented as of this encounter Visit Diagnoses Diagnosis Jeavons syndrome documented in this encounter Care Teams Team MemberRelationshipSpecialtyStart DateEnd Date Tim Rolon DO PCP - GeneralInternal Medicine09/19/22 Petra Silveira APRN-OIL WELL SERVICES FIELD SUPERVISOR Certified Nurse Practitioner11/08/22documented as of this encounter
--- OUTSIDE RECORDS SUMMARY | 2025-01-18 08:36 | XMS_ITS | Clinical Summary ---
Author Organization [facility] Address [address] [place] [address] [place] [address] Care Team Providers Care Credit Portfolio Advisor Name Role Phone Tim Rolon DO Primary Care Provider [phone] Petra Silveira UTILITY WORKER [employer] TRANSFORMER INSPECTOR Unavailable [phone] Allergies Active AllergyReactionsCriticalityNoted DateCommentsSeasonalRunny Nose, MnxtntgcfyAha06/14/2017 Medications MedicationSigDispense QuantityRefillsLast FilledStart DateEnd DateStatus loratadine 10 MG tablet Take 1 tablet by mouth as needed.Active Melatonin 5 MG Chew Tab Chew 1 tablet at bedtime as needed.Active Prenat MV-Min w/Xz-Eibgvg-OUS ( COMPLETE PO) Take 1 tablet by mouth at bedtime.Active metFORMIN 500 MG tablet Take 1 tablet by mouth at bedtime.Active medroxyPROGESTERone 10 MG tablet Take 1 tablet by mouth as needed. Takes for 14 days each time neededActive acetaminophen 650 MG Tab CR Take 1 tablet by mouth every 6 hours as needed for Mild Pain.01/15/2023ctive MAGNESIUM GLYCINATE PO Take 1,000 mg by mouth daily.Active Calcium Carb-Cholecalciferol (CALCIUM + D3 PO) Take 600 mg by mouth daily.Active Folic acid 1 MG tablet Indications:Jeavons syndromeTAKE 1 TABLET BY MOUTH EVERY DAY WITH DINNER 90 tablet 5Active LamoTRIgine (LaMICtal XR) 50 MG Tab SR 24 HR Indications:Other epilepsy without status epilepticus, not intractableTake 1 tablet by mouth daily. 7 tablet 5Active LamoTRIgine (LaMICtal XR) 200 MG Tab SR 24 HR Indications:Other epilepsy without status epilepticus, not intractableTake 1 tablet by mouth daily. Take this in addition to Lamictal XR 300 mg daily (total 500 mg daily) 90 tablet 3035Active Sertraline 100 MG tablet Indications:Anxiety disorder, unspecified typeTake 1 tablet by mouth at bedtime. 90 tablet 5Active Sertraline 50 MG tablet Take 1 tablet by mouth daily. 90 tablet 5Active Midazolam (Nayzilam) 5 MG/0.1ML Solution 5 mg by Nasal route as needed. For seizure clusters longer than 5 minutes. May repeat in 10 minutes. Do not exceed 10 mg in 24 hours. 2 Each 5Active cloBAZam 20 MG tablet Indications:Jeavons syndromeTake 1 tablet by mouth Daily (with dinner). 30 tablet 310//201435/6Active LamoTRIgine 300 MG Tab SR 24 HR Indications:Jeavons syndromeTake 1 tablet by mouth at bedtime. 90 tablet 1105Active cloBAZam 20 MG tablet Indications:Jeavons syndromeTake 1 tablet by mouth Daily (with dinner). 30 tablet 503//593994/Discontinued LamoTRIgine 300 MG Tab SR 24 HR Indications:Jeavons syndromeTake 1 tablet by mouth at bedtime. 90 tablet 104///Discontinued(Reorder) Active Problems ProblemNoted DateDiagnosed DateAnxiety wapqrrss31/27/2022 Overview (11/20/2022): Difficulties with anxiety (may have been earlier than 2014, however, in chart review through [facility] mention of anxiety was noted in 2014). Obesity: body mass index of 35.0-39.9010/28/2019Encounter for postoperative wound check04/17/2018Jeavons kwobndyo88/25/2018 Assessment & Plan (03/14/2020 1:05 PM EST): No changes. No seizure clusters. 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 Boyfriend says if she were to have a cluster she mightwreck a car. However, these are not common unless she is off her medication. Regardless she does not have any desire to drive. Patient on modified Atkins diet08/27/2017Closed fracture of distal end of right tibia with routine ebllfmz6210/16/2016Closed displaced pilon fracture of right tibia07/17/2016Closed fracture of shaft of right tibia and fdndqw6607/17/2016 12/06/2022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 10/24/2011Microscopic dkorwglff17eneralized nonconvulsive wuefwmjh05/07/2009 Encounters DateTypeDepartmentCare XmtjDhvazpktuew76/21/2025[facility] [place] [address] [place] [address] Cori Dia DO Jeavons krgtject67/21/2025[facility] [address] [place] [address] Cori Dia DO Jeavons syndromefrom Last 3 Months Immunizations ImmunizationAdministration DatesNext DueInfluenza Malddew4801/04/2014 Family History Medical HistoryRelationNameCommentsProstate CancerMaternal GrandfatherPapa Rowena - GlennMental IllnessMaternal GrandmotherGreat Grandma MeyersDepression , AnxietyCancer- OtherPaternal GrandfatherPapa DonnieProstate CancerPaternal GrandfatherPapa DonnieDiabetesPaternal UncleUncle DougRelationNameStatusComments Maternal GrandfatherPapa Rowena - GlennMaternal GrandmotherGreat Grandma Falk Paternal GrandfatherPapa DonniePaternal UncleUncle Da Social History Tobacco UseTypesPacks/DayYears UsedDateSmoking Tobacco: NeverSmokeless Tobacco: Never Tobacco Cessation:Counseling Given: Not Answered Comments:Never Alcohol UseStandard Drinks/WeekCommentsNot Currently0 (1 standard [...] InformationValueDate RecordedSex Assigned at BirthNot on fileLegal YiwOdgxco83/14/2020 3:06 PM EDT Gender VmnmfobfXihnhx57/21/2020 1:41 AM EDTSexual NnanpkkengjXkoaapoq96/21/2020 1:41 AM EDTOccupationIndustryJob Start DateJob End DateteacherNot on fileNot on fileNot on file Last Filed Vital Signs Vital SignReadingTime TakenCommentsBlood Asvvxahl384/7606 2:43 PM EDT Pgsjr331808/21/2023 2:43 PM YUCSvnyadmcknz56.8 ??C (98.3 ??F)08/21/2023 2:43 PM EDTRespiratory Wsyo216503/17/2022 1:50 PM ESTOxygen Dhqvpcwvqt91%01/15/2023 1:50 PM ESTInhaled Oxygen Concentration--Qxvpba09 kg (198 lb 6.4 oz)08/21/2023 2:43 PM FRTJiydqs001.3 cm (5' 3.5 )08/21/2023 2:43 PM EDTverbalBody Mass Index34.59 08/21/2023 2:43 PM EDT Plan of Treatment Health MaintenanceDue DateLast DoneCommentsHEPATITIS C VIRUS DHOMHRORT08/07/1993 MOZGAEM83 1992HIV SCREENING CKKIKSGVQV43/07/2008HEP B VACCINE (1 of 3 - 19+ 3-dose series)07/15/2011PNEUMOCOCCAL VACCINE SERIES (1 of 2 - PCV)07/15/2011TDAP (ADULT)07/15/2011CERVICAL CANCER SCREENING JYZVSROHOO96/07/2014HPV VACCINE (1 - 3-dose SCDM series)07/15/2019COVID-19 VACCINE ( season)2024 INFLUENZA VACCINE (#1) Medical Devices ImplantedTypeAreaManufacturerDevice IdentifierShelf Expiration DateModel / Serial / LotSentiva Implanted:Qty: 1 on 01/15/2023 by Andi Smith MD at [facility] N/A: Chest! / [id number] / Insurance Care Teams Team MemberRelationshipSpecialtyStart DateEnd Tim Rolon DO PCP - GeneralInternal Medicine09/19/22 Petra Silveira, UTILITY WORKER [employer] TRANSFORMER INSPECTOR Certified Nurse Practitioner11/08/22
--- OUTSIDE RECORDS SUMMARY | 2025-01-18 08:36 | XMS_ITS | Clinical Summary ---
Author Organization [facility] Address [address] [place] [address] Care Team Providers Care Windows Phone Developer Name Role Phone Tim Rolon DO Primary Care Provider [phone] Donovan Burks DO Unavailable [phone] Family History Medical HistoryRelationCommentsNo Known ProblemsFatherProstate CancerMaternal GrandfatherArthritisMaternal GrandmotherMental illnessMaternal Grandmother Depression, AnxietyOsteoporosisMaternal GrandmotherHypertensionMotherDiabetes Paternal GrandfatherHeart AttackPaternal GrandfatherProstate CancerPaternal GrandfatherRelationStatusCommentsFatherMaternal GrandfatherMaternal Grandmother MotherPaternal Grandfather Social History Tobacco UseTypesPacks/DayYears UsedDateSmoking Tobacco: Never AssessedArea Deprivation IndexAnswerDate RecordedNational Score (1-100), lower number is lower dlbq4590State Score (1-10), lower number is lower bpxu51010/01/2024 Data from: https://www.neighborhoodatlas.medicine.[facility].edu/. Last address used for [address] [facility]10/01/2024CommentsUnknownSex and Gender InformationValueDate RecordedSex Assigned at IohluAragnv53/16/2025 12:30 AM EDT Legal ZqfFxaere41/19/2025 2:43 PM EDTGender WbvctxwnRmmbij44/16/2025 12:30 AM EDTSexual SlninhblfdbWakzkxvf27/16/2025 12:30 AM EDT Plan of Treatment Health MaintenanceDue DateLast DoneCommentsAnxiety Zdpbtplhz30/07/2011Depression Odjahvixb42/07/2011HIV Juzjwenmr76/07/2011Hepatitis C Mvketqwuv98/07/2011 DTaP,Tdap,Td Vaccine (1 - Tdap)07/15/2011Hepatitis B Vaccine (1 of 3 - 19+ 3- dose series)07/15/2011Cervical Cancer Wqquniybw38/07/2014HPV Vaccine (1 - 3-dose SCDM series)07/15/2019Covid-19 Vaccine (1 - 2024- season)2024Influenza Vaccine (#1) Insurance Care Teams Team MemberRelationshipSpecialtyStart DateEnd Tim Rolon DO [address] [place] [address] PCP - GeneralInternal Medicine07/26/24 Donovan Burks DO [address] [place] [address] [address] [place], [place] [id number] ReferringOb/Gyn07/26/24
--- OUTSIDE RECORDS SUMMARY | 2025-01-18 08:36 | XMS_ITS | Clinical Summary ---
Author Organization [employer] [facility] Address [id number] [address] [place] [address] Care Team Providers Care Licensed Pharmacist Name Role Phone Unavailable Primary Care Provider Unavailabl e Social History Tobacco UseTypesPacks/DayYears UsedDateSmoking Tobacco: Never AssessedChildcare AnswerDate TryfyzwiNnxpbffqbHxhpqgy88/11/2019EmploymentAnswerDate Recorded TmoftbfxyaXidniov59/11/2019CommentsUnknownSex and Gender Information ValueDate RecordedSex Assigned at ZbuhtEyouir75/12/2023 3:37 PM EDTLegal Sex Grhags7410/11/2014 8:46 PM EDTGender NfygsznkGygapi47/12/2023 3:37 PM EDTSexual EeixpyzulkqZnrirlbe24/12/2023 3:37 PM EDT Plan of Treatment Health MaintenanceDue DateLast DoneCommentsDepression Guhcyysmx05/07/2005Tobacco Tqpdapotd35/07/2005Adult BMI Lhnngwuwm20/07/2011DTaP,Tdap and Td Vaccines (1 - Tdap)07/15/2011Pap Smear2013Influenza Ilewzux3611/08/2024 Medical Devices Not on file
--- OUTSIDE RECORDS SUMMARY | 2025-01-18 08:36 | XMS_ITS | Clinical Summary ---
Demographics Address [address] [place] [address] Home Phone Mobile Phone Email Address Email Address Preferred Language Kiswahili Marital Status Single Taoism Affiliation Unknown Race White Ethnic Group Not or Lati no Author Organization [facility] Address [address], [address] [place] [address] Care Team Providers Care Marketing Services Specialist Name Role Phone Jakob Light MD Primary Care Provider [phone] Allergies Active AllergyReactionsCriticalityNoted DateCommentsEnvironmental/SeasonalMedium 08/21/2016 Medications MedicationSigDispense QuantityRefillsLast FilledStart DateEnd DateStatus Divalproex Sodium (DEPAKOTE PO) Take 500 mg by mouth nightlyActive cloBAZam (ONFI) 10 MG TABS tablet Take 10 mg by mouth nightlyActive escitalopram (LEXAPRO) 20 MG tablet Take 20 mg by mouth nightlyActive etonogestrel (NEXPLANON) 68 MG implant 68 mg by Subdermal route once 04/20/2015Active NONFORMULARY Indications:in 3 doses, 5ml in AM, 5ml in 1500, 4ml in PMTake 14 mLs by mouth daily Epidilex (trial medication)Active loratadine (CLARITIN) 10 MG tablet Take 10 mg by mouth daily as neededActive aspirin 325 MG EC tablet Take 1 tablet by mouth daily 21 tablet 07/19/2016Active docusate sodium (COLACE) 100 MG capsule Take 1 capsule by mouth daily as needed for Constipation 30 capsule Active Additional Information Patient taking differently:100 mg OralDAILY, Reported on 08/20/2016 Handicap Anisa MISC Indications:Closed displaced pilon fracture of right tibia with routine healing, subsequent encounterby Does not apply route Duration 07-24-16 thru 02-06-17 1 each 07/24/2016Active calcium carbonate (TUMS) 500 MG chewable tablet Take 1 tablet by mouth 2 times dailyActive Calcium Citrate (CALCITRATE PO) Take 2 tablets by mouth dailyActive folic acid (FOLVITE) 1 MG tablet Take 4 mg by mouth dailyActive HYDROcodone-acetaminophen (NORCO) 5-325 MG per tablet Take 1 tablet by mouth every 6 hours as needed for Pain (As needed for pain) . 60 tablet 08/21/2016Active NONFORMULARY Active Active Problems ProblemNoted DateDiagnosed DateClosed fracture of distal end of right tibia with routine nwuzcpc5110/16/2016Closed fracture of shaft of right tibia and fibula 07/17/2016Closed displaced pilon fracture of right tibia07/17/2016Microscopic zyqzlttaj30/15/2011Vague seizure omtlgzph58/15/2011 Family History Medical HistoryRelationNameCommentsArthritisMaternal GrandmotherDiabetesPaternal GrandfatherHeart AttackPaternal GrandfatherRelationNameStatusCommentsFatherAlive Maternal GrandfatherAliveMaternal GrandmotherAliveMotherAlivePaternal GrandfatherAlivePaternal GrandmotherAlive Social History Tobacco UseTypesPacks/DayYears UsedDateSmoking Tobacco: NeverAlcohol UseStandard Drinks/WeekCommentsNo0 (1 standard drink = 0.6 oz pure alcohol)Comments NoSex and Gender InformationValueDate RecordedSex Assigned at BirthNot on file Legal IwnOvczmd77/10/2013 9:53 AM ESTGender IdentityNot on fileSexual OrientationNot on file Last Filed Vital Signs Vital SignReadingTime TakenCommentsBlood Yrbmgdta383/6602/21/2017 2:45 PM EST Txqkm68816/15/2017 2:45 PM WKAEgeovuosejx92.6 ??C (97.8 ??F)02/21/2017 2:45 PM ESTRespiratory Lnrr500504/24/2016 2:45 PM ESTOxygen Tlptmykbis05%02/21/2017 2:45 PM ESTInhaled Oxygen Concentration--Pkyrfp71 kg (172 lb)10/16/2016 1:22 PM EDT Dxyoum810 cm (5' 3 )10/16/2016 1:22 PM EDTBody Mass Index30.4708 1:22 PM EDT Plan of Treatment Not on file Medical Devices ImplantedTypeAreaManufacturerDevice [facility] Hospitalhelf Expiration DateModel / Serial / Lot332 Temi Implanted:Qty: 3 on 07/18/2016 [facility]ToeRight: AnkleScrew Schnz Ext Fix Self [id number] Implanted:Qty: 1 on 07/18/2016 [facility]/Nail/RodRight: [id number] / / Screw Schnz Ext Fix Self [id number] Implanted:Qty: 1 on 07/18/2016 [facility]/Nail/RodRight: [id number]-[id number] / / Screw Padmini Shrt Thrd Ss 4.0x28mm Implanted:Qty: 1 on 08/21/2016 at [facility] Screw/Plate/Nail/RodSYNTHES-[id number] / / Screw Padmini Shrt Thrd Ss 4.0x32mm Implanted:Qty: 1 on 08/21/2016 at [facility] Screw/Plate/Nail/RodSYNTHES-[id number] / / Screw Padmini Shrt Thrd Ss 4.0x38mm Implanted:Qty: 2 on 08/21/2016 at [facility] Screw/Plate/Nail/RodSYNTHES-[id number] / / Screw Padmini Shrt Thrd Ss 4.0x40mm Implanted:Qty: 1 on 08/21/2016 at [facility] Screw/Plate/Nail/RodSYNTHES-[id number] / / Washer Scrw Padmini Ss 4.0x7mm Implanted:Qty: 5 on 08/21/2016 at [facility] Screw/Plate/Nail/[id number] / / Washer Scrw Padmini Ss 6.5x13mm Implanted:Qty: 2 on 08/21/2016 at [facility] Screw/Plate/Nail/RodSYNTHES-[id number] / / ExplantedTypeAreaManufacturerDevice IdentifierShelf Expiration DateModel / Serial / LotScrew Padmini Shrt Thrd Ss 4.0x30mm Explanted:Qty: 1 on 08/21/2016 at [facility] Screw/Plate/Nail/RodSYNTHES-[id number] / / Screw Padmini Shrt Thrd Ss 4.0x36mm Explanted:Qty: 1 on 08/21/2016 at [facility] Screw/Plate/Nail/RodSYNTHES-[id number] / / Screw Cortx Slftp Lg Frag 4.5x32mm Implanted:Qty: 1 Explanted:Qty: 1 on 08/21/2016 at [facility] Screw/Plate/Nail/RodSYNTHES-[id number] / / Screw Cortx Slftp Lg Frag 4.5x40mm Implanted:Qty: 1 Explanted:Qty: 1 on 08/21/2016 at [facility] Screw/Plate/Nail/RodSYNTHES-[id number] / / Screw Cortx Slftp Lg Frag 4.5x42mm Implanted:Qty: 1 Explanted:Qty: 1 on 08/21/2016 at [facility] Screw/Plate/Nail/RodSYNTHES-[id number] / / Washer Scrw Padmini Ss 6.5x13mm Explanted:Qty: 1 on 08/21/2016 at [facility] Screw/Plate/Nail/[id number] / / Screw Padmini Shrt Thrd Ss 4.0x26mm Explanted:Qty: 1 on 08/21/2016 at [facility] Screw/Plate/Nail/RodSYNTHES-[id number] / / Insurance * Guarantor: Rowena Byers TypeRelation to PatientDate of PhoneBilling AddressPersonal/BcbgmxIcyh28/07/1991 [address] [place] [address] * Guarantor: Rowena Byers TypeRelation to PatientDate of PhoneBilling AddressPersonal/TehyokChmk41/07/1991 [address] [place] [address] * Guarantor: Rowena Byers TypeRelation to PatientDate of PhoneBilling AddressWorkers BjkeYpab75/07/[address] [place] [address] * Guarantor: Rowena Byers TypeRelation to PatientDate of PhoneBilling AddressPersonal/SntoxjUzeb66/07/1991 [address] [place] [address] * Guarantor: Rowena Byers TypeRelation to PatientDate of PhoneBilling AddressPersonal/MsgcvcZfjh25/07/1991 [address] [place] [address] * Guarantor: Rowena Byers TypeRelation to PatientDate of PhoneBilling AddressPersonal/RdpmprPqbl07/07/1991 [address] [place] [address] Advance Directives * Full Code (Latest Code Status on File) Date [facility]Date [facility]07/17/2016 8:18 PM07/19/2016 3:16 PM Care Teams Team MemberRelationshipSpecialtyStart DateEnd Date Jakob Light MD [address] [place] [address] PCP - Dnpyljb04/19/11
--- OUTSIDE RECORDS SUMMARY | 2025-01-18 08:36 | XMS_ITS | Clinical Summary ---
Author Organization [facility] Address [address] [place] [address] Care Team Providers Care Brake Operator Helper Name Role Phone Tim Rolon DO Primary Care Provider [phone] Allergies Active AllergyReactionsCriticalityNoted DateCommentsOtherRunny noseMedium 03/15/2011 Other Reaction(s): Nasal Congestion Pollen ExtractRunny qnesRfekph59/14/2017 Other Reaction(s): Congestion Medications MedicationSigDispense QuantityRefillsLast FilledStart DateEnd DateStatus loratadine-pseudoephedrine ER (Claritin-D 12-hour) 5-120 MG 12 hr tablet Take 1 tablet by mouth in the morning and 1 tablet before bedtime. Do not crush, chew, or split. .Active cloBAZam (Onfi) 20 MG tablet Take by mouth.Active sertraline (Zoloft) 100 MG tablet Take 150 mg by mouth at bedtimeActive folic acid (Folvite) 1 MG tablet Take by mouth Daily.Active MV-Min-Fe Fum-FA-DHA ( 1 PO) Take by mouth.Active LORazepam (Ativan) 0.5 MG tablet Take by mouth.Active Multiple Vitamins-Minerals (CULTURELLE PROBIOTICS + MULTIV PO) Take by mouthActive Calcium Carb-Cholecalciferol 600-12.5 MG-MCG capsule 07/07/2023ctive lamoTRIgine (LaMICtal XR) 300 mg tablet sustained-release 24 hour 24 hr tablet Take 300 mg by mouth at bedtimeActive loratadine (Claritin) 10 MG tablet Take 10 mg by mouth Daily as neededActive metFORMIN XR (Glucophage-XR) 500 MG 24 hr tablet Indications:PCOS (polycystic ovarian syndrome)TAKE 1 TABLET BY MOUTH EVERY DAY WITH EVENING MEAL 90 tablet 5Active co-enzyme Q-10 30 MG capsule Take 30 mg by mouth DailyActive Clomid 50 MG tablet Indications:AnovulationTAKE 2 TABLETS BY MOUTH ONCE DAILY ON DAYS 3-7 OF CYCLE 10 tablet 5Active clomiPHENE (Clomid) 50 MG tablet Indications:AnovulationTake 2 tablets (100 mg) by mouth Daily for 5 days 10 tablet 51Discontinued Active Problems ProblemNoted DateDiagnosed DatePCOS (polycystic ovarian syndrome)12/10/2022 Assessment & Plan (12/10/2022 8:42 AM EDT): Pt consented to telehealth visit. Reviewed labs with pt in great detail. Pt AMH above 2, progesterone at 17. Discussed fertility with pt and answered all questions in detail. Pt to continue with planof care and if starts period will call in Femara. Pt to call office if needed in interim. Encounters DateTypeDepartmentCare PjtlImezgnlndzg56/23/2025Telephone [facility] [address] [place] [address] Rola Rosa MA 12/30/2024Refill [facility] [address] [place] [address] Donovan Burks DO Jwgtvtjogye67/08/2025Clinisync Result Encounter [facility] External Department Unsolicited Donovan Burks DO 11/26/2024Refill [facility] [address] [place] [address] Francine Byrd MA Gyszxszkcpi98/05/2025Orders Only [facility] [address] [place] [address] Rloa Rosa MA 5Clinisync Result Encounter [facility]OM[facility] External Department Unsolicited Donovan Burks DO 10/28/2024 9:00 AM EDTOffice Visit [facility] [address] [place] [address] Donovan Burks, Well woman exam with routine gynecological exam5Clinisync Result Encounter [facility] External Department Unsolicited Donovan Burks, 5Bamboo flowsheet [facility] [address] [place] [address] Donovan Burks, DO 10/25/2024Refill [facility] [address] [place] [address] Donovan Burks, DO Anovulationfrom Last 3 Months Family History Medical HistoryRelationNameCommentsNo Known ProblemsBrotherNo Known Problems FatherHypertensionMotherRelationNameStatusCommentsBrotherAliveFatherAliveMother Alive Social History Tobacco UseTypesPacks/DayYears UsedDateSmoking Tobacco: NeverSmokeless Tobacco: Never Tobacco Cessation:Counseling Given: Not Answered Alcohol UseStandard Drinks/WeekCommentsNot Asked0 (1 standard drink = 0.6 oz pure alcohol)Occasional alcohol useCommentsNoSex and Gender Information ValueDate RecordedSex Assigned at BirthNot on fileLegal CrkDycgxr84/15/2023 11:21 PM EDTGender IdentityNot on fileSexual OrientationNot on file Last Filed Vital Signs Vital SignReadingTime TakenCommentsBlood Gqmfexyw248/7005 11:33 AM EDT Liqix615210/15/2023 3:15 PM EZKDdttszqpbim96.6 ??C (97.8 ??F)10/15/2023 3:15 PM EDTRespiratory Rate--Oxygen Ziehpwbxbg15%10/15/2023 3:15 PM EDTInhaled Oxygen Concentration--Blngmt19.8 kg (198 lb)07/20/2024 11:33 AM PMOAcnyep089.3 cm (5' 3.5 )08/08/2022 10:30 AM EDTBody Mass Index34.52008/08/2022 10:30 AM EDT Plan of Treatment DateTypeDepartmentCare Team (Latest Contact Info)Xmdklktfabg93/27/2026 9:00 AM EDTProcedure Visit [facility] [address] [place] [address] Donovan Burks, [address] [address] Procedures Procedure NamePriorityDate/TimeAssociated DiagnosisCommentsALL PROGESTERONE Tncqmid6512/15/2024 10:36 AM EDT ALL EKVQKGGDGLPSWmbspsx33/04/2025 12:00 PM EDT IGP,APTIMA HPV,AGE MRWJUiarrok24/21/2025 9:10 AM EDT PAP CVEHXXrqyiwa71/21/2025 12:00 AM EDTfrom Last 3 Months Results * ALL PROGESTERONE (12/15/2024 10:36 AM EDT) Only the most recent of2 resultswithin the time period is included. ComponentValueRef RangeTest MethodAnalysis TimePerformed AtPathologist Signature KAURPOUYDUQD18.0. ng/mLTBHComment: ? Follicular phase ? 0.1 - ?? 0.9 ? Luteal phase ? 1.8 - ??23.9 ? Ovulation phase ?0.1 - ??12.0 ?First trimester ?11.0 - ??44.3 ?Second trimester ?? 25.4 - ??83.3 ?Third trimester ?58.7 - 214.0 ? Postmenopausal ? 0.0 - ?? 0.1 Performed at: ??CB - [facility] [place] [id number] [facility], [place], [place] ??[id number] Broadcast Operations Manager: Ino Dougherty PhD, Phone: ??[phone] Specimen (Source)Anatomical Location / LateralityCollection Method / Volume Collection TimeReceived Time12/15/2024 10:36 AM EDT1 10:40 AM EDT Narrative [facility] - 12/16/2024 4:09 AM EDT Authorizing ProviderResult TypeResult StatusCorey Kimmie DOCLINISYNCFinal Result Performing OrganizationAddressCity/State/[facility] CodePhone Number CLINISYNC [facility] * IGP,APTIMA HPV,AGE GDLN (10/28/2024 9:10 AM EDT)ComponentValueRef RangeTest MethodAnalysis TimePerformed AtPathologist SignatureAGE GDLN ACOG TESTINGNote. TBHComment: ?? TESTS ? RESULT ??FLAG ??UNITS ?REF RANGE ??LAB ?? Clinician Provided Cytology Information ?? Source.............Cervix;Endocervix ?? No. of containers..01 ThinPrep Vial Age Algo ACOG Radha... ??30-65 ? 01 ?FLAG LEGEND: ?L-Low Normal,H-High Normal,LL-Alert Low,HH-Alert High <-Panic Low,>-Panic High,A-Abnormal,AA-Critical Abnormal Performed at: 01 =G ?[facility] ?? [address] [place] ??[phone] ?? Tahmina Mehta MD, IGP, APTIMA HPV, RFX 16/18,45Note.TBHComment: ?? TESTS ? RESULT ??FLAG ??UNITS ?REF RANGE ??LAB DIAGNOSIS: ?02 ?? NEGATIVE FOR INTRAEPITHELIAL LESION OR MALIGNANCY. Specimen adequacy: ?02 ?? Satisfactory for evaluation. ??Endocervical and/or squamous metaplastic ?? cells (endocervical component) are present. Performed by: ? 02 ?? [facility] Lighthouse Keeper (ASCP) . ? 02 Note: ? Note ?02 ?? The Pap smear is a screening test designed to aid in the ?? detection of premalignant and malignant conditions of the ?? uterine cervix. ??It is not a diagnostic procedure and ?? should not be used as the sole means of detecting cervical ?? cancer. ??Both false-positive and false-negative reports do ?? occur. Test Methodology: ? Note ?02 ?? This liquid based ThinPrep(R) pap test was screened with ?? the use of an image guided system. HPV Genotype Reflex ?? Note ?02 ?? Criteria not met, HPV Genotype not performed. ?FLAG LEGEND: ?L-Low Normal,H-High Normal,LL-Alert Low,HH-Alert High <-Panic Low,>-Panic High,A-Abnormal,AA-Critical Abnormal Performed at: 02 WB ?[facility] ?? [address] [place] ??[phone] ?? Tahmina Mehta MD, HPV APTIMANegativeNegativeTBHComment: This nucleic acid amplification test detects fourteen high- risk HPV types (16,18,31,33,35,39,45,51,52,56,58,59,66,68) without differentiation. Performed at: ??=G - [facility] [address] ??[id number] Broadcast Operations Manager: Tahmina Mehta MD, Phone: ??[phone] Performed at: ??WB - [facility] [address] ??[id number] Broadcast Operations Manager: Tahmina Mehta MD, Phone: ??[phone] Specimen (Source)Anatomical Location / LateralityCollection Method / Volume Collection TimeReceived Time10/28/2024 9:10 AM EDT10/28/2024 3:24 PM EDT Narrative [facility] - 11/01/2024 11:09 AM EDT BRUSH-SPATULA CERVIX ENDOCERVIX Authorizing ProviderResult TypeResult StatusCorey Kimmie DOLAB BLOOD ORDERABLES Final ResultPerforming OrganizationAddressCity/State/ZIP CodePhone Number [facility] * Pap Smear (10/28/2024 12:00 AM EDT)Specimen (Source)Anatomical Location / LateralityCollection Method / VolumeCollection TimeReceived TimeSwabCervical swab / Unknown Narrative Authorizing ProviderResult TypeResult StatusCorey Kimmie DOLAB CYTOLOGY ORDERABLESFinal ResultPerforming OrganizationAddressCity/State/ZIP CodePhone Number EXTERNAL LAB from Last 3 Months Insurance Care Teams Team MemberRelationshipSpecialtyStart DateEnd Date Tim Rolon DO [address] [place] [phone] PCP - GeneralInternal Medicine08/08/22
--- OUTSIDE RECORDS SUMMARY | 2025-01-18 08:36 | XMS_ITS | Encounter Summary ---
Author Organization [facility] Address [address] [place] [address] [address] Care Team Providers Care Metal Moulder Name Role Phone Tim Rolon DO Primary Care Provider [phone] Encounter Details DateTypeDepartmentCare Team (Latest Contact Info)Zmycxlniksf92/19/2024Clinisync Result Encounter [facility] External Department Unsolicited Yolanda Burks DO [address] [place], [facility] Social History Tobacco UseTypesPacks/DayYears UsedDateSmoking Tobacco: NeverSmokeless Tobacco: NeverAlcohol UseStandard Drinks/WeekCommentsNot Asked0 (1 standard drink = 0.6 oz pure alcohol)Occasional alcohol useCommentsUnknownSex and Gender InformationValueDate RecordedSex Assigned at BirthNot on fileLegal SexFemale 05/22/2022 11:21 PM EDTGender IdentityNot on fileSexual OrientationNot on file documented as of this encounter Plan of Treatment DateTypeDepartmentCare Team (Latest Contact Info)Ampjbykqklj04/27/2026 9:00 AM EDTProcedure Visit [facility] [place] [address] [place] [address] Yolanda Burks DO [address] [place] [address] documented as of this encounter Procedures Procedure NamePriorityDate/TimeAssociated DiagnosisCommentsFL XMHBBFYJKYIYOIAQMKXIY65/19/2024 11:28 AM EDT documented in this encounter Results * FL HYSTEROSALPINGOGRAPHY (06/27/2023 11:28 AM EDT)Anatomical RegionLaterality ModalityOtherSpecimen (Source)Anatomical Location / LateralityCollection Method / VolumeCollection TimeReceived Time06/27/2023 11:28 AM EDT Narrative 06/27/2023 11:30 AM EDT [facility] ?[address] ? [place] [id number] ? Fluoroscopy Report ? Signed ? Patient: ROWENA GUADALUPE ?MR#: [id number] ?? : 1990 ?Acct:[id number] ?? Age/Sex: 32 / F ?ADM Date: 06/27/23 ?? Loc: LAB ? Attending Dr: Yolanda Burks D.O. ? Ordering Physician: Yolanda Burks D.O. ?? Date of Service: 06/27/23 ?? Procedure(s): FL hysterosalpingography ?? Accession Number(s): [id number] ? cc: Tim Rolon D.O.; Yolanda Burks D.O. ? [facility] ? [address] [facility] ? [place] [address] ? Patient Name: ?? ROWENA DRAKE ? MRN: [facility]:[id number] ? date: 1990 ?Sex: F ?? Assigned Patient Location: LAB ?? Current Patient Location: LAB ?? Accession/Order Number: [id number] ?? Exam Date: 06/27/2023 ??10:15 ?Report Date: 06/27/2023 ??11:28 ? At the request of: ?? YOLANDA ??KIMMIE ? Procedure: ??FL hysterosalpingography ? EXAMINATION: FL hysterosalpingography, FL Hysterosal cath placement ? 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 COMPARISON: No relevant comparison available. ? TECHNIQUE: Informed consent was obtained. A sterile vaginal speculum was ?? introduced and, following cleansing of the cervix, a balloon-tipped catheter ?? was inserted into the endometrial cavity. The procedure was then completed in ?? the usual manner with water-soluble contrast. Standard level fluoroscopic mode ? of operation utilized. ? FINDINGS: ?? FALLOPIAN TUBES: Slight delay in spillage of contrast from left fallopian ?? tube. ?? Fallopian tubes are now patent bilaterally. ?? ENDOMETRIAL CAVITY: No scarring, filling defects, or dilatation. ?? OTHER: Negative. ? FL/FL hysterosalpingography ?? IMPRESSION: ? 1. Normal appearance of uterus. ?? 2. Bilateral patent fallopian tubes (initially there was delay in spillage of ?? contrast from left fallopian tube). ? Electronically authenticated by: FELIX ??COURTNEY ?? Date: 06/27/2023 ??11:28 ? Dictated By: ?Felix Santiago M.D. ? Signed By: ?06/27/230 ? DD/ 1128 ? TD/TT: ? Human Resources Assistant Manager: Procedure Note Radiology, Radiologist, - 06/27/2023 [place] [address] Fluoroscopy Report Signed Patient: ROWENA GUADALUPE BMR#: [id number] : 1990Acct:[id number] Age/Sex: 32 / FADM Date: 06/27/23 Loc: LAB Attending Dr: Yolanda Burks D.O. Ordering Physician: Yolanda Burks D.O. Date of Service: 06/27/23 Procedure(s): FL hysterosalpingography Accession Number(s): [id number] cc: Tim Rolon D.O.; Yolanda Burks D.O. The [place] [address] Patient Name: ROWENA DRAKE MRN: [id number] date: 1990 Sex: F Assigned Patient Location: LAB Current Patient Location: LAB Accession/Order Number: [id number] Exam Date: 06/27/2023 10:15 Report Date: 06/27/2023 [...] M.D. Signed By:06/27/23 1130 DD/ 1128 TD/TT: Human Resources Assistant Manager: Authorizing ProviderResult TypeResult StatusCorey Kimmie DOCLINISYNC IMAGINGFinal Result documented in this encounter Visit Diagnoses Not on filedocumented in this encounter Care Teams Team MemberRelationshipSpecialtyStart DateEnd Date Tim Rolon DO [address] [place] [address] PCP - GeneralInternal Medicine08/08/22documented as of this encounter
--- OUTSIDE RECORDS SUMMARY | 2025-01-18 08:36 | XMS_ITS | Patient Health Record ---
Author Organization [facility] [place] Address [address] [place] [address] Care Team Providers Care Hospice Registered Nurse Name Role Phone Jakob Light MD Primary Care Provider Unavailabl e Reason For Referral No Information Medications Medication SIG (Take, Route, Frequency, Duration) Notes Start Date End Date Status Claritin PRN Active Plan Of Treatment No Information Insurance Providers Payer Name Payer Address Payer Phone Subscriber Number Group Number Insured Name Patient Relationship to Insured Coverage Start Date Coverage End Date SELF PAY ON PATIENT DEMOGRAPHICS Rowena ByersSejosemanuelf - patient is the yrbdktc2412/18/2010
--- OUTSIDE RECORDS SUMMARY | 2025-01-18 08:36 | XMS_ITS | Encounter Summary ---
Author Organization [facility] Address [address] [facility] [place] [address] Care Team Providers Care Architectural Engineering Teacher Name Role Phone Tim Rolon DO Primary Care Provider [phone] Encounter Details DateTypeDepartmentCare Team (Latest Contact Info)Dvmfxsmkyxx64/19/2024Clinisync Result Encounter [facility] External Department Unsolicited Yolanda Burks DO [address] [place], [facility] Social History Tobacco UseTypesPacks/DayYears UsedDateSmoking Tobacco: NeverSmokeless Tobacco: NeverAlcohol UseStandard Drinks/WeekCommentsNot Asked0 (1 standard drink = 0.6 oz pure alcohol)Occasional alcohol useCommentsUnknownSex and Gender InformationValueDate RecordedSex Assigned at BirthNot on fileLegal SexFemale 05/22/2022 11:21 PM EDTGender IdentityNot on fileSexual OrientationNot on file documented as of this encounter Plan of Treatment DateTypeDepartmentCare Team (Latest Contact Info)Lzouiwxpaag06/27/2026 9:00 AM EDTProcedure Visit [facility] [place] [address] [place] [address] Yolanda Burks DO [address] [place], [facility]11 documented as of this encounter Procedures Procedure NamePriorityDate/TimeAssociated DiagnosisCommentsFL COEFFFSBHEMYBALGNFS56/19/2024 11:28 AM EDT documented in this encounter Results * FL HYSTEROSALPINGOGRAM (06/27/2023 11:28 AM EDT)Anatomical RegionLaterality ModalityOtherSpecimen (Source)Anatomical Location / LateralityCollection Method / VolumeCollection TimeReceived Time06/27/2023 11:28 AM EDT Narrative 06/27/2023 11:30 AM EDT [facility] ?[address] ? [place] [id number] ? Fluoroscopy Report ? Signed ? Patient: ROWENA GUADALUPE ?MR#: [id number] ?? : 1990 ?Acct:[id number] ?? Age/Sex: 32 / F ?ADM Date: 06/27/23 ?? Loc: LAB ? Attending Dr: Yolanda Burks D.O. ? Ordering Physician: Yolanda Burks D.O. ?? Date of Service: 06/27/23 ?? Procedure(s): FL Hysterosal cath placement ?? Accession Number(s): [id number] ? cc: Tim Rolon D.O.; Yolanda Burks D.O. ? [facility] ? [address] [facility] ? [place] [address] ? Patient Name: ?? ROWENA DRAKE ? MRN: [facility]:[id number] ? date: 1990 ?Sex: F ?? Assigned Patient Location: LAB ?? Current Patient Location: LAB ?? Accession/Order Number: [id number] ?? Exam Date: 06/27/2023 ??10:15 ?Report Date: 06/27/2023 ??11:28 ? At the request of: ?? YOLANDA ??KIMMIE ? Procedure: ??FL Hysterosal cath placement ? EXAMINATION: FL hysterosalpingography, FL Hysterosal cath [...] or dilatation. ?? OTHER: Negative. ? FL/FL Hysterosal cath placement ?? IMPRESSION: ? 1. Normal appearance of uterus. ?? 2. Bilateral patent fallopian tubes (initially there was delay in spillage of ?? contrast from left fallopian tube). ? Electronically authenticated by: FELIX ??COURTNEY ?? Date: 06/27/2023 ??11:28 ? Dictated By: ?Felix Santiago M.D. ? Signed By: ?06/27/230 ? DD/ 1128 ? TD/TT: ? Drawing Press Operator: Procedure Note Radiology, Radiologist, - 06/27/2023 [place] [address] Fluoroscopy Report Signed Patient: ROWENA GUADALUPE BMR#: [id number] : 1990Acct:[id number] Age/Sex: 32 / FADM Date: 06/27/23 Loc: LAB Attending Dr: Yolanda Burks D.O. Ordering Physician: Yolanda Burks D.O. Date of Service: 06/27/23 Procedure(s): FL Hysterosal cath placement Accession Number(s): [id number] cc: Tim Rolon D.O.; Yolanda Burks D.O. The [place] [address] Patient Name: ROWENA DRAKE MRN: [id number] date: 1990 Sex: F Assigned Patient Location: LAB Current Patient Location: LAB Accession/Order Number: [id number] Exam Date: 06/27/2023 10:15 Report Date: 06/27/2023 [...] M.D. Signed By:06/27/23 1130 DD/ 1128 TD/TT: Drawing Press Operator: Authorizing ProviderResult TypeResult StatusCorey Kimmie DOCLINISYNC IMAGINGFinal Result documented in this encounter Visit Diagnoses Not on filedocumented in this encounter Care Teams Team MemberRelationshipSpecialtyStart DateEnd Date Tim Rolon DO [address] [place] [address] PCP - GeneralInternal Medicine08/08/22documented as of this encounter
== END 2025-01-18 08:29 | disposition home or self-care (01) ==
LOC: LAB 08:32
PROVIDERS: PCP Internal Medicine; Visit Provider Obstetrics & Gynecology
DX: N97.9 Female infertility, unspecified (principal); N97.0 Female infertility associated with anovulation
CPT/HCPCS: 36415; 84144